=== PATIENT | male | born 1980 | race Caucasian/White ===

== ENCOUNTER 2019-01-04 16:45 | Emergency (ER) | payer MEDICAID, SELFPAY ==
[2019-01-04 16:46] VITALS: BP 159/101; PULSE 105; RESP 24; TEMP 36.6; O2SAT 89; BMI 30.9
[2019-01-04 17:22] VITALS: O2SAT 94
[2019-01-04 17:26] VITALS: BP 155/107; PULSE 97; RESP 19; O2SAT 94
[2019-01-04 17:36] VITALS: PULSE 114; RESP 29
[2019-01-04] MEDS: Albuterol 2.5 MG/3 ML VIAL.NEB. INHALATION ×3 (17:36)
[2019-01-04] MEDS: Ipratropium/Albuterol Sulfate 3 ML AMPUL.NEB INHALATION (17:36)
--- NOTE | 2019-01-04 17:44 | EKG12_ITS ---
Test Reason : SOB Blood Pressure : / mmHG Vent. Rate : 105 BPM Atrial Rate : 105 BPM P-R Int : 160 ms QRS Dur : 074 ms QT Int : 370 ms P-R-T Axes : 077 085 082 degrees QTc Int : 489 ms Sinus tachycardia with occasional Premature ventricular complexes Otherwise normal ECG Confirmed by YANG JIANG, NAKUL ([id number]), newspaper managing editor CHAYO PIZANO ([id number] on 01/07/2019 9:55:18 AM Referred By: VIJAYA Confirmed By:NAKUL SORIA MD
[2019-01-04] MEDS: predniSONE 20 MG Tablet 60 MG PO (18:18)
[2019-01-04 18:19] VITALS: PULSE 111; RESP 19; O2SAT 95
--- NOTE | 2019-01-04 19:10 | ED.DCSUM_ITS ---
- ER Visit Summary Date of Service: 01/04/19 Chief Complaint: Shortness of breath History of Present Illness: The patient is a 38 M with no primary care physician. He is seen Dr. Lam in the distant past. He has a history of severe asthma. Reports that his shortness of breath began 3 days ago. Severe at worst moderate currently. Is worsened by exertion. Some change by laying flat. Reports that he is using his albuterol with transient relief. Patient reports he is a chronic cough in the morning only. Is productive of clear sputum. He denies any fevers, chills, chest pain. He reports that his last steroids were quite some time ago. Physical Examination: Vitals: Stable. Afebrile. General: Well-nourished and well-developed. Head: Normocephalic atraumatic. Neck: Supple, no lymphadenopathy. No JVD. Nontender. Cardiovascular: Regular rate and rhythm. No murmurs. Respiratory: Moderate respiratory distress. Mild wheezing bilaterally with greatly decreased air movement. Abdominal: Soft, nontender, nondistended, normal bowel sounds. No guarding, rebound, or peritoneal signs. Back: Nontender. Extremities: Nontender, no edema. Skin: Normal color, no rash. Neurologic: Alert and oriented ?3. Cranial nerves II through XII are intact. Normal strength and sensation. Psych: Normal affect. Emergency Department Course and Treatment: Patient was treated with albuterol and Atrovent aerosols. He is also given albuterol aerosols. He was given prednisone p.o. Repeat exam shows his pulse ox to have increased from 89 to 96% on room air. He is resting comfortably and would like to go home. Treatment Plan: Patient will be discharged prednisone. Instructed to follow-up with his primary care physician 1 to 2 days if not improving. Follow-up with Dr. Lam as soon as possible. Return to the emergency department for any worsening symptoms. Disposition: To home in improved and stable condition. Impression: 1. Asthma exacerbation. This note was generated with [employer] dictation software. It may contain incorrect words, spelling, and punctuation that were not noted in review of the chart prior to signing ED Disposition - Plan for ED Patient: Disposition: Home or Assisted Living Instructions: ASTHMA, Acute (Adult) Prescriptions: Prednisone 10 mg PO DAILY #63 tab Prescription Printed Referrals: Megha Pearson PA [Primary Care Provider] - 1-2 Days if not improving Massimo Lam MD [STAFF PHYSICIAN] - As soon as possible
[2019-01-04 19:14] VITALS: BP 121/95; PULSE 96; RESP 14; O2SAT 92
== END 2019-01-04 19:15 | disposition home or self-care (01) ==
PROVIDERS: Emergency Provider Emergency Medicine; Family Provider Physician Assistant; PCP Physician Assistant
DX: J45.901 Unspecified asthma with (acute) exacerbation (principal); Z79.51 Long term (current) use of inhaled steroids
CPT/HCPCS: 93005; 94640; 99284

== ENCOUNTER 2019-11-19 19:19 | Emergency (ER) | payer SELFPAY ==
[2019-11-19 19:19] VITALS: BP 166/113; PULSE 107; RESP 18; TEMP 37.1; O2SAT 93
[2019-11-19 19:20] VITALS: BP 166/113; PULSE 101; RESP 18; TEMP 37.1; O2SAT 94; BMI 32.5
--- NOTE | 2019-11-19 19:50 | EKG12_ITS ---
Test Reason : CONFUSION Blood Pressure : / mmHG Vent. Rate : 097 BPM Atrial Rate : 097 BPM P-R Int : 172 ms QRS Dur : 086 ms QT Int : 386 ms P-R-T Axes : 057 074 064 degrees QTc Int : 490 ms Normal sinus rhythm with sinus arrhythmia Prolonged QT Abnormal ECG Confirmed by YANG JIANG, NAKUL ([id number]), supervising film or videotape editor CHAYO PIZANO ([id number]) on 11/22/2019 1:09:04 PM Referred By: BB Confirmed By:NAKUL SORIA MD
--- NOTE | 2019-11-19 19:50 | CT_ITS ---
STUDY: CT BRAIN WITHOUT CONTRAST REASON FOR EXAM: Male, 39 years old. Infusion RADIATION DOSAGE (If Supplied By Facility): CTDIvol = ( 44.99 ) mGy, DLP = ( 779.24 ) mGycm TECHNIQUE: Transaxial CT imaging of the brain was performed without administration of intravenous contrast material. Individualized dose optimization techniques were used for this CT. COMPARISON: None. FINDINGS: There is no acute bleed or infarct. There are normal white matter tracts. The ventricles are normal in configuration. There is no hydrocephalus. The visualized paranasal sinuses are clear. The mastoid air cells are well aerated. There is no skull fracture. CT/Brain/Head without Contrast IMPRESSION: No acute intracranial abnormality. Electronically Signed: Manpreet Lora, at 20:21 EDT Tel , Service support ,
--- NOTE | 2019-11-19 19:51 | ED.VIS.GEN ---
History of Present Illness Chief Complaint: Confusion Informant: Patient, Friend Onset: Days - 4 Timing: Intermittent, Lasts - hrs Quality: See below Current Severity: Mild Maximum Severity: Severe Narrative: Patient and a friend present saying that he has had episodes throughout the last 4 days where he is acting very drunk, but he is saying he is not drinking much alcohol, at least not as much to explain how he is acting. The patient admits that he is drinking beer daily because he loves beer. He walks a lot. He does not drive. He walks all over [facility], and today it was at the [employer] that is close to there. He states he had 1 pint of beer at lunchtime between and 2, at the time of the patient's evaluation here in the ER it is approximately 1945. States he is feeling much better now, but earlier it was like he was drunk, and he tends to pass out meaning that he basically takes a nap. When he wakes up, there are times when he does not remember the events just before he took a nap, consistent with times in his life when he has been drunk. He has not been eating well, he states he usually eats 1 meal per day, and he admits that besides drinking beer he has not been eating meals or drinking fluids well. Also, it is summer and it has been extremely hot recently, and he walks outside a lot. He states his typical alcohol intake is 4 or 5 12-ounce beers per day. He does not feel the shakes or withdrawals in the mornings when he does not drink. He denies any bright red blood per rectum, vomiting/hematemesis, tinnitus, earache, recent illness. No recent head injury. - Past Medical History (1) Asthma Status: Chronic Past Medical History - Allergies and Home Meds Allergies/Adverse Reactions: Allergies No Known Allergies Allergy (Verified 01/04/19 17:26) Primary Care Physician: Megha Pearson PA [PHYSICIAN TRAILER RENTAL CLERK] - 1 Week if not improving Surgical History: no surgical history Lives: With Family Smoking Status: Never smoker - Family History Maternal Family History: Reports: Asthma Paternal Family History: Reports: Asthma Sibling Family History: Reports: - - He is an only child. Review of Systems General: Denies: Chills, Fever, Sweats Eyes: Denies: Visual changes - bilaterally, Diplopia ENT: Denies: Rhinorrhea, Sore throat Cardiovascular: Denies: Chest pain, Palpitations Respiratory: Denies: Dyspnea, Cough, Dyspnea on exertion Gastrointestinal: Denies: Abdominal pain, Nausea, Vomiting, Diarrhea, Melena, Hematochezia Genitourinary: Denies: Dysuria, Hematuria, Frequency Musculoskeletal: Denies: Back pain, Extremity Pain Skin: Denies: Rash, Wounds Neurological: Reports: - - Walking like he is ataxic, stumbling. Slurring speech. Mumbling at times. . Denies: Headache, Weakness, Numbness Physical Exam Vital Signs/Narrative: Vital Signs Temp Pulse Resp BP Pulse Ox 11/19/19 19:20 98.8 F 101 H 18 166/113 H 94 11/19/19 19:19 98.8 F 107 H 18 166/113 H 93 NIH Stroke Scale/Score (NIHSS) from [employer] on 11/19/2019 All calculations should be rechecked by clinician prior to use RESULT SUMMARY: 0 points NIH Stroke Scale INPUTS: 1A: Level of consciousness ?> 0 = Alert; keenly responsive 1B: Ask month and age ?> 0 = Both questions right 1C: 'Blink eyes' & 'squeeze hands' ?> 0 = Performs both tasks 2: Horizontal extraocular movements ?> 0 = Normal 3: Visual newsome ?> 0 = No visual loss 4: Facial palsy ?> 0 = Normal symmetry 5A: Left arm motor drift ?> 0 = No drift for 10 seconds 5B: Right arm motor drift ?> 0 = No drift for 10 seconds 6A: Left leg motor drift ?> 0 = No drift for 5 seconds 6B: Right leg motor drift ?> 0 = No drift for 5 seconds 7: Limb Ataxia ?> 0 = No ataxia 8: Sensation ?> 0 = Normal; no sensory loss 9: Language/aphasia ?> 0 = Normal; no aphasia 10: Dysarthria ?> 0 = Normal 11: Extinction/inattention ?> 0 = No abnormality General: Well nourished, Well developed, No Acute Distress Head: Normocephalic, Atraumatic Eyes: Perrl, EOMI, - - Mild horizontal nystagmus. No vertical or rotatory nystagmus. ENT: Moist mucous membranes, No rhinorrhea, - - Posterior oropharynx clear. Neck: Supple, Nontender Cardiovascular: Regular rate, Regular rhythm, No murmurs Respiratory: No distress, CTA bilaterally, Chest nontender Abdomen: Soft, Nontender, Nondistended, Normal bowel sounds Back: Nontender, Normal Inspection Extremities: Nontender, No edema Skin: Normal color, No rash, No Trauma, - - Stretch ramirez present on abdomen and bilateral upper arms Neurological: Alert, Oriented x3, Cranial nerves II-XII grossly intact, Normal Strength, Normal Sensation, - - Normal [id number] and [id number] bilaterally. Psychological: Normal affect, Normal Mood Diagnostic/Tx/Re-eval Impressions Brain CT 11/19/19 19:50 IMPRESSION: No acute intracranial abnormality. Electronically Signed: Manpreet Guido, at 20:21 EDT Tel , Service support , 11/19/19 19:50 Brain/Head without Contrast [CT] Stat Laboratory Tests 11/19/19 11/19/19 11/19/19 Range/Units 20:27 19:54 19:54 WBC (4.4-11.0) K/mm3 RBC (4.6-6.2) M/mm3 Hgb (13.0-16.5) g/dL Hct (40-54) % MCV (80-94) fL MCH (27.0-32.0) pg MCHC (32-36) g/dL RDW Std Deviation (35.1-43.9) fl RDW Coeff of Christiano (11.6-14.6) % Plt Count (150-450) K/mm3 MPV (6.2-12.0) fl Immature Gran % (Auto) (0.0-0.9) % Neut % (Auto) (47-70) % Lymph % (Auto) (19-41) % [place] % (Auto) (0-10) % Eos % (Auto) (0-5) % Baso % (Auto) (0-1) % Absolute Neuts (auto) (2.0-7.7) X10^3/uL Absolute Lymphs (auto) (0.83-4.51) X10^3/uL Nucleated RBC % (0-5) % PT 13.9 (11.7-14.9) SECONDS INR 1.1 Sodium 141 (136-145) mmol/L Potassium 3.9 (3.5-5.1) mmol/L Chloride 107 (98-107) mmol/L Carbon Dioxide 27.0 (21.0-32.0) mmol/L Anion Gap 7 (5-15) BUN 4 L (7-18) mg/dL Creatinine 0.72 (0.70-1.30) mg/dL Estim Creat Clear Calc 115.34 ml/min Est GFR (MDRD) Af Amer 155 (>60) mL/min Est GFR (MDRD) Non-Af 128 (>60) mL/min BUN/Creatinine Ratio 5.5 L (10-20) RATIO Glucose 108 H (74-106) mg/dL Calcium 8.2 L (8.5-10.1) mg/dL Total Bilirubin 0.90 (0.20-1.00) mg/dL AST 94 H (15-37) U/L ALT 66 H (16-61) U/L Alkaline Phosphatase 162 H (45-117) U/L Troponin I < 0.015 (<0.045) ng/mL Total Protein 8.1 (6.4-8.2) g/dL Albumin 3.4 (3.2-5.0) g/dL Globulin 4.7 H (2.2-4.2) g/dL Albumin/Globulin Ratio 0.7 L (0.9-2.4) RATIO Ethyl Alcohol 367.0 H* mg/dL 11/19/19 Range/Units 19:54 WBC 6.8 (4.4-11.0) K/mm3 RBC 4.28 L (4.6-6.2) M/mm3 Hgb 15.1 (13.0-16.5) g/dL Hct 44.3 (40-54) % MCV 103.5 H (80-94) fL MCH 35.3 H (27.0-32.0) pg MCHC 34.1 (32-36) g/dL RDW Std Deviation 48.3 H (35.1-43.9) fl RDW Coeff of Christiano 12.9 (11.6-14.6) % Plt Count 227 (150-450) K/mm3 MPV 8.4 (6.2-12.0) fl Immature Gran % (Auto) 0.100 (0.0-0.9) % Neut % (Auto) 49.5 (47-70) % Lymph % (Auto) 26.3 (19-41) % [place] % (Auto) 10.4 H (0-10) % Eos % (Auto) 10.8 H (0-5) % Baso % (Auto) 2.9 H (0-1) % Absolute Neuts (auto) 3.4 (2.0-7.7) X10^3/uL Absolute Lymphs (auto) 1.80 (0.83-4.51) X10^3/uL Nucleated RBC % 0 (0-5) % PT (11.7-14.9) SECONDS INR Sodium (136-145) mmol/L Potassium (3.5-5.1) mmol/L Chloride (98-107) mmol/L Carbon Dioxide (21.0-32.0) mmol/L Anion Gap (5-15) BUN (7-18) mg/dL Creatinine (0.70-1.30) mg/dL Estim Creat Clear Calc ml/min Est GFR (MDRD) Af Amer (>60) mL/min Est GFR (MDRD) Non-Af (>60) mL/min BUN/Creatinine Ratio (10-20) RATIO Glucose (74-106) mg/dL Calcium (8.5-10.1) mg/dL Total Bilirubin (0.20-1.00) mg/dL AST (15-37) U/L ALT (16-61) U/L Alkaline Phosphatase (45-117) U/L Troponin I (<0.045) ng/mL Total Protein (6.4-8.2) g/dL Albumin (3.2-5.0) g/dL Globulin (2.2-4.2) g/dL Albumin/Globulin Ratio (0.9-2.4) RATIO Ethyl Alcohol mg/dL - Rhythm Strip Rhythm Strip: Sinus Rhythm Rate: 97 Ectopy: None - EKG Initial EKG Interpretation: Sinus Rhythm, No Acute Injury Pattern Prior: Unchanged - Medical Decision Making As above, work-up is unremarkable with the exception of very slight elevations in his liver enzymes which I suspect is related to alcohol use. There is no hyperbilirubinemia or coagulopathy to suggest cirrhosis. Also, his alcohol returned at 367. His abdominal exam is very benign and he is not jaundiced. His CT is negative. I do not suspect that this patient has had a stroke, also less suspicious for a TIA. My suspicion is that the patient is drinking more alcohol than he lets on, and even if this is not the case, he is not eating any food, or at least not very much, and he is not discussing how quickly he is drinking each beverage, which certainly could result in higher blood alcohol concentrations, as the absorption is likely very quick in him when he is not eating any food. Additionally, he could be dehydrated since he is not drinking much water, walking in extreme heat, and this could further increase his blood alcohol concentrations. At this time, I do not see a reason to admit him emergently. I advise eating better, drinking nonalcoholic fluids, and curbing his alcohol intake and seeing if that alters the symptoms/findings. Advised to follow-up with his doctor. Although his alcohol level is fairly high, and he was watched for 2.5-3 hours, he is ambulatory without ataxia, and he states he is walking home which I am okay with. ED Disposition - Plan for ED Patient: Disposition: Home or Assisted Living Diagnosis: Alcohol intoxication Instructions: ED INTOXICATION Alcohol Referrals: Megha Pearson PA [PHYSICIAN TRAILER RENTAL CLERK] - 1 Week if not improving Additional Instructions: Before you are able to follow-up with your doctor, curb your alcohol intake, drink more nonalcoholic fluids, and try to eat better.
[2019-11-19 20:04] LABS: Absolute Neutrophil Count 3.4 X10^3/uL (2.0-7.7); Basophil% 2.9 % (0-1); Eosinophil# 0.74 X10^3/uL; Eosinophils% 10.8 % (0-5); Hematocrit 44.3 % (40-54); Hemoglobin 15.1 g/dL (13.0-16.5); Lymphocyte % 26.3 % (19-41); Mean Corp Hgb Conc 34.1 g/dL (32-36); Mean Corpuscular Hgb 35.3 pg (27.0-32.0); Mean Corpuscular Volume 103.5 fL (80-94); Mean Platelet Vol. 8.4 fl (6.2-12.0); Monocyte# 0.71 X10^3/uL; Monocyte% 10.4 % (0-10); NRBC Flagged by Analyzer 0 % (0-5); Neutrophil # 3.38 X10^3/uL (2.7-7.7); Neutrophil % 49.5 % (47-70); Platelet Count 227 K/mm3 (150-450); RBC Distribution Width CV 12.9 % (11.6-14.6); RBC Distribution Width SD 48.3 fl (35.1-43.9); Red Blood Count 4.28 M/mm3 (4.6-6.2); White Blood Count 6.8 K/mm3 (4.4-11.0)
[2019-11-19 20:12] LABS: International Normalized Ratio 1.1; Prothrombin Time (Protime)PT. 13.9 SECONDS (11.7-14.9)
[2019-11-19 20:23] LABS: ALB/GLOB Ratio 0.7 RATIO (0.9-2.4); AST(SGOT) 94 U/L (15-37); Alanine Aminotransfer ALT/SGPT 66 U/L (16-61); Albumin, Serum 3.4 g/dL (3.2-5.0); Alkaline Phosphatase 162 U/L (45-117); Anion Gap 7 (5-15); BUN 4 mg/dL (7-18); BUN/Creat Ratio 5.5 RATIO (10-20); Calcium,Total 8.2 mg/dL (8.5-10.1); Chloride 107 mmol/L (98-107); Creatinine, Serum 0.72 mg/dL (0.70-1.30); EST Glomerular Filtration Rate 128 mL/min (>60); Est Glom Filt Rate - Afr Amer 155 mL/min (>60); Estimated Creatinine Clearance 115.34 ml/min; Globulin 4.7 g/dL (2.2-4.2); Glucose 108 mg/dL (74-106); Potassium 3.9 mmol/L (3.5-5.1); Protein, Total 8.1 g/dL (6.4-8.2); Sodium Level 141 mmol/L (136-145)
== END 2019-11-19 21:47 | disposition home or self-care (01) ==
PROVIDERS: Emergency Provider Emergency Medicine
DX: F10.129 Alcohol abuse with intoxication, unspecified (principal); J45.909 Unspecified asthma, uncomplicated
CPT/HCPCS: 70450; 80053; 80320; 84484; 85025; 85610; 93005; 99283; A4216; G0480

== ENCOUNTER 2020-02-06 14:56 | Inpatient (IN) | payer SELFPAY ==
[2020-02-06] VITALS (20 sets, daily range): BP systolic 154–247; BP diastolic 85–134; PULSE 98–141; RESP 14–32; TEMP 36.5–37; O2SAT 94–100; BMI 30.9; BMI 32.2
--- NOTE | 2020-02-06 15:17 | RAD_ITS ---
STUDY: X-RAY CHEST REASON FOR EXAM: Male, 39 years old. Shortness of breath, cough. TECHNIQUE: Frontal view of the chest COMPARISON: 14 April 2017 FINDINGS: There is minimal blunting of bilateral costophrenic sulci, possibly minimal effusions and/or scarring. Lungs are clear. There is no pneumothorax, pulmonary edema or cardiomegaly. RAD/Chest 1 View (Portable) IMPRESSION: Possible minimal pleural effusions versus costophrenic sulcus scarring. Otherwise unremarkable. Electronically Signed: Cee Reynoso, at 16:57 EDT Tel , Service support ,
--- NOTE | 2020-02-06 15:19 | ED.VIS.DYS ---
History of Present Illness Chief Complaint: Asthma Informant: Patient Onset: - 2-3 Activity at onset: - - possibly related to cleaning chemicals at work Timing: Continuous Quality: Wheezing Current Severity: Severe Maximum Severity: Severe Worsened by: Coughing, Exertion Relieved by: Not Relieved By: Albuterol, Rest Associated Symptoms: Cough, Rhinorrhea. Negative for: Bloody Sputum, Chills, Clear sputum, Ear pain, Fever, Sore throat, Sweats Chest Pain: Tightness Narrative: 39-year-old male states he has had cold symptoms that have been relatively mild for the last 2 or 3 weeks, and his asthma has not been flared up with it until several days ago. 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 He denies any fevers or chills the last several weeks, myalgias, sore throat, swelling, GI symptoms. He has not developed any of that since the wheezing/asthma started in the last couple days either. He has not been tested for COVID nor is he had it, patient presents during the national coronavirus emergency declaration/pandemic. He denies any known contact with anyone infected with COVID-19. He denies traveling out of the immediate area recently. - Past Medical History (1) Asthma Status: Chronic Past Medical History - Allergies and Home Meds Allergies/Adverse Reactions: Allergies No Known Allergies Allergy (Verified 02/06/20 14:57) Primary Care Physician: Care Physician,No Primary [Primary Care Provider] - Surgical History: no surgical history Smoking Status: Never smoker - Family History Maternal Family History: Reports: Asthma Paternal Family History: Reports: Asthma Sibling Family History: Reports: - - He is an only child. Review of Systems General: Denies: Chills, Fever, Sweats Eyes: Denies: Visual changes - bilaterally, Diplopia ENT: Reports: Rhinorrhea - And mild congestion without purulent discharge. Denies: Sore throat Cardiovascular: Reports: Chest pain. Denies: Palpitations Respiratory: Reports: Dyspnea, Cough, Dyspnea on exertion. Denies: Sputum, Orthopnea Gastrointestinal: Denies: Abdominal pain, Nausea, Vomiting, Diarrhea, Melena, Hematochezia Genitourinary: Denies: Dysuria, Hematuria, Frequency Musculoskeletal: Denies: Myalgias, Neck pain, Back pain, Swelling, Extremity Pain Skin: Denies: Rash, Wounds Neurological: Denies: Headache, Weakness, Numbness Physical Exam Vital Signs/Narrative: Vital Signs Temp Pulse Resp BP Pulse Ox 02/06/20 15:03 124 H 96 02/06/20 14:57 97.7 F L 125 H 32 H 204/132 H 94 Inital Vital Signs reviewed: Yes General: Well nourished, Well developed, Acute Distress - Mild, respiratory Head: Normocephalic, Atraumatic Eyes: Perrl, EOMI ENT: Moist mucous membranes, No rhinorrhea. Negative for: Sinus tenderness Neck: Supple, Nontender, No lymphadenopathy, No JVD Cardiovascular: Regular rate, Regular rhythm, No murmurs, Tachycardia Respiratory: Chest nontender, Wheezing - Diffuse, patient sounds tight and symmetric. Trachea midline. Equal breath sounds heard bilaterally.. Negative for: Rales, Rhonchi Abdomen: Soft, Nontender, Nondistended, Normal bowel sounds Back: Nontender, Normal Inspection Extremities: Nontender, No edema. Negative for: Calf Tenderness Skin: Normal color, No rash, No Trauma Neurological: Alert, Oriented x3, Cranial nerves II-XII grossly intact, Normal Strength, Normal Sensation Psychological: Normal affect, Normal Mood Diagnostic/Tx/Re-eval Impressions Chest X-Ray 02/06/20 15:17 IMPRESSION: Possible minimal pleural effusions versus costophrenic sulcus scarring. Otherwise unremarkable. Electronically Signed: Cee Datgabriel, at 16:57 EDT Tel , Service support , 02/06/20 15:17 Chest 1 View (Portable) [RAD] Stat Laboratory Results 02/06/20 02/06/20 16:10 16:10 WBC 8.9 RBC 4.65 Hgb 16.1 Hct 47.8 MCV 102.8 H MCH 34.6 H MCHC 33.7 RDW Std Deviation 47.3 H RDW Coeff of Christiano 12.6 Plt Count 171 MPV 8.7 Immature Gran % (Auto) 0.200 Neut % (Auto) 71.6 H Lymph % (Auto) 11.0 L [place] % (Auto) 7.3 Eos % (Auto) 9.0 H Baso % (Auto) 0.9 Absolute Neuts (auto) 6.4 Absolute Lymphs (auto) 0.98 Nucleated RBC % 0 Sodium 139 Potassium 4.0 Chloride 105 Carbon Dioxide 28.0 Anion Gap 6 BUN 4 L Creatinine 0.73 Estim Creat Clear Calc 113.76 Est GFR (MDRD) Af Amer 154 Est GFR (MDRD) Non-Af 127 BUN/Creatinine Ratio 5.5 L Glucose 101 Calcium 9.1 Troponin I < 0.015 - Medical Decision Making Initially patient treated with subcutaneous terbutaline and a round of aerosols. He became more wheezy, suggesting that he was opened up a little, however his respiratory distress worsened, he became diaphoretic, speaking in one-word sentences instead of 4-5. Patient was very apprehensive about getting epinephrine but eventually consented. We started magnesium, Solu-Medrol in the IV in addition to given him a mikel dose of epinephrine, which eventually helped although he sat up for intubation. On multiple re-evaluations he continued to have improvement although he was still in respiratory distress and did want to wait for intubation which I agree with given his improvement. Patient would prefer to wait to get another epinephrine injection. With the injection, his blood pressure has come down from 220-190s and his heart rate came down from 150-130. Sinus tachycardia on the monitor. Discussed with hospitalist and intensive care. Critical care time (excluding procedures): 30-74 minutes - 40 min; including time spent discussing with patient, consultants, arranging admission, and performed direct patient care and reevaluation at bedside. ED Disposition - Plan for ED Patient: Disposition: Acute Care Hospital [facility] Diagnosis: Status asthmaticus Referrals: Care Physician,No Primary [Primary Care Provider] -
[2020-02-06] MEDS: Terbutaline 1 MG/ML Vial 0.25 MG SC (15:37)
[2020-02-06] MEDS: Ipratropium/Albuterol Sulfate 3 ML AMPUL.NEB INHALATION ×2 (15:39→19:00)
[2020-02-06] MEDS: Albuterol 2.5 MG/3 ML VIAL.NEB. INHALATION ×3 (15:39→21:43)
[2020-02-06 16:23] LABS: Absolute Lymphocyte Count 0.98 X10^3/uL (0.83-4.51); Absolute Neutrophil Count 6.4 X10^3/uL (2.0-7.7); Basophil# 0.08 X10^3/uL; Basophil% 0.9 % (0-1); Hematocrit 47.8 % (40-54); Hemoglobin 16.1 g/dL (13.0-16.5); Lymphocyte # 0.98 X10^3/ul (4.0); Mean Corp Hgb Conc 33.7 g/dL (32-36); Mean Corpuscular Hgb 34.6 pg (27.0-32.0); Mean Corpuscular Volume 102.8 fL (80-94); Mean Platelet Vol. 8.7 fl (6.2-12.0); Monocyte# 0.65 X10^3/uL; Monocyte% 7.3 % (0-10); NRBC Flagged by Analyzer 0 % (0-5); Neutrophil # 6.37 X10^3/uL (2.7-7.7); Neutrophil % 71.6 % (47-70); Platelet Count 171 K/mm3 (150-450); RBC Distribution Width CV 12.6 % (11.6-14.6); RBC Distribution Width SD 47.3 fl (35.1-43.9); Red Blood Count 4.65 M/mm3 (4.6-6.2); White Blood Count 8.9 K/mm3 (4.4-11.0)
[2020-02-06] MEDS: MethylPREDNISolone 125 MG/2 ML Vial IV (16:25)
[2020-02-06 16:40] LABS: Anion Gap 6 (5-15); BUN 4 mg/dL (7-18); BUN/Creat Ratio 5.5 RATIO (10-20); Calcium,Total 9.1 mg/dL (8.5-10.1); Chloride 105 mmol/L (98-107); Creatinine, Serum 0.73 mg/dL (0.70-1.30); EST Glomerular Filtration Rate 127 mL/min (>60); Est Glom Filt Rate - Afr Amer 154 mL/min (>60); Estimated Creatinine Clearance 113.76 ml/min; Glucose 101 mg/dL (74-106); Sodium Level 139 mmol/L (136-145)
--- NOTE | 2020-02-06 17:22 | PCM.HP.STD ---
Problem List (1) Status asthmaticus Status: Chronic (2) Acute asthma exacerbation Status: Acute (3) Obesity (BMI 30-39.9) Status: Chronic (4) Asthma Status: Chronic History of Present Illness Date of Admission: 02/06/20 Chief Complaint: Shortness of breath. The patient is a 39 year old M who presents emergency room due to shortness of breath. Patient states he has had cold symptoms for the past week and a half including productive cough with yellow sputum and increased shortness of breath. He denies fever, chills. Denies sore throat. Denies change in taste and smell. Patient denies exposure to COVID. He reports 2 days ago he was cleaning the floor at work with heavy chemicals and his breathing seemed to get worse after that time. Today he reports significantly worsened breathing. He has a history of hypertension. He states he is currently without medical insurance and has not been taking his water pill. He has a history of asthma. Denies frequent exacerbations however he has been admitted in the past. Past Medical History Past Medical History (Chronic Problems): Chronic Problems Status asthmaticus (Chronic) Obesity (BMI 30-39.9) (Chronic) Asthma (Chronic) Allergies No Known Allergies Allergy (Verified 02/06/20 14:57) Home Medications: Ambulatory Orders Medication Instructions Recorded Albuterol Aerosols [Ventolin 2.5 mg INHALATION Q4H PRN PRN #25 01/19/17 Aerosols] vial Fluticasone/Salmeterol [Advair 1 ea IH DAILY 01/04/19 100-50 Diskus] Surgical History: no surgical history Psychiatric History: No pertinent psych hx Lives: Alone Smoking Status: Never smoker Alcohol: None Drugs: Marijuana - Occasional - *Family History Maternal History Items: Asthma Paternal History Items: Asthma Sibling History Items: - - He is an only child. Review of Systems Constitutional: Denies: Chills, Fever, Weight Change HEENT: Denies: Head Aches, Sinus Congestion, Sinus Drainage Cardiovascular: Denies: Chest Pain, Edema, Palpitations, Syncope Respiratory: Reports: Cough, Shortness of Breath, Sputum production, Wheezing Gastrointestinal: Denies: Abdominal Pain, Nausea, Vomiting Genitourinary: Denies: Dysuria Musculoskeletal: Denies: Joint Pain, Joint Tenderness Skin: Denies: Rash, Wounds Neurological: Denies: Numbness, Tingling, Focal weakness Psychiatric: Denies: Anxiety, Depression, Homicidal Ideations, Suicidal Ideations Hematologic/ Lymphatic: Denies: Easy Bruising, Easy Bleeding VTE Information - Inpt Only VTE Present on Admission: No VTE Mechan Device Prophylaxis: None VTE Pharm Prophylaxis ordered?: No Reason prophylaxis not ordered:: Treatment Not Indicated - Physical Exam Vitals/I&O's: Vital Signs Temp Pulse Resp BP Pulse Ox 97.7 F L 132 H 18 199/126 H 98 02/06/20 14:57 02/06/20 17:01 02/06/20 17:01 02/06/20 17:01 02/06/20 17:01 Oxygen Flow Rate (L/min) 6 Oxygen Delivery Method Nasal Cannula Weight: 180 lb Body Mass Index (BMI) 30.9 General: Alert, Oriented x3, Cooperative HEENT: Atraumatic, PERRLA, EOMI, Normocephalic Neck: Supple, No JVD, Negative Carotid Bruits Lungs: Diminished, Wheezes Cardiovascular: Regular Rhythm, Normal S1, Normal S2, No murmurs, Tachycardic Abdomen: Bowel Sounds Present, Soft, Non Tender, Non-Distended Extremities: No clubbing, No cyanosis, No edema, Capillary Refill Less than 3 Seconds Skin: No rashes, No breakdown Musculoskeletal: No Tenderness to Palpation of Joints or Extremities Neurological: Cranial nerves II-XII grossly intact, Neuro grossly intact Psych/Mental Status: Normal Affect, Appropriate Laboratory Results 02/06/20 15:28: COVID-19 (DANA) Pending 02/06/20 16:10: WBC 8.9, RBC 4.65, Hgb 16.1, Hct 47.8, MCV 102.8 H, MCH 34.6 H, MCHC 33.7, RDW Std Deviation 47.3 H, RDW Coeff of Christiano 12.6, Plt Count 171, MPV 8.7, Immature Gran % (Auto) 0.200, Neut % (Auto) 71.6 H, Lymph % (Auto) 11.0 L, [place] % (Auto) 7.3, Eos % (Auto) 9.0 H, Baso % (Auto) 0.9, Absolute Neuts (auto) 6.4, Absolute Lymphs (auto) 0.98, Nucleated RBC % 0 02/06/20 16:10: Sodium 139, Potassium 4.0, Chloride 105, Carbon Dioxide 28.0, Anion Gap 6, BUN 4 L, Creatinine 0.73, Estim Creat Clear Calc 113.76, Est GFR (MDRD) Af Amer 154, Est GFR (MDRD) Non-Af 127, BUN/Creatinine Ratio 5.5 L, Glucose 101, Calcium 9.1, Troponin I < 0.015 Current Medications Magnesium Sulfate 2 gm/ Sodium (Chloride) 104 mls @ 52 mls/hr IV X1 ONE Stop: 02/06/20 17:55 Last Admin: 02/06/20 16:16 Dose: 52 mls/hr Documented by: Assessment/Plan All Active Problems Acute asthma exacerbation (Acute) 1. Acute hypoxic respiratory failure secondary to bronchitis with exacerbation of asthma-patient received epinephrine, Solu-Medrol and aerosols in ER. IV Solu-Medrol. Levaquin empirically. Albuterol DuoNeb aerosols. Continue supplement oxygen to maintain O2 sat above 90%. COVID test pending. Pulmonary consult. 2. Hypertensive urgency-patient has a history of hypertension and has not been taking his medication. Increased secondary to #1 as well. Initiate Norvasc. PRN hydralazine for systolic blood pressure greater than 160. 3. Occasional marijuana use-Denies recent use DVT prophylaxis- low risk, not indicated This patient was seen by JAVIER Steiner under the supervision of Dr. Suarez.
[2020-02-06] MEDS: 0.9% Normal Saline 1,000 ML 175 ML IV (18:26)
[2020-02-06] MEDS: levoFLOXacin 500 MG Tablet PO (18:28)
[2020-02-06] MEDS: amLODIPine 10 MG Tablet PO (18:28)
[2020-02-06] MEDS: Metoprolol Tartrate 5 MG/5 ML Vial IV (21:14)
[2020-02-06] MEDS: Acetaminophen 325 MG Tablet 650 MG PO (21:30)
[2020-02-06] MEDS: guaiFENesin/Codeine 5 ML UDC 10 ML PO (21:31)
[2020-02-07] VITALS (14 sets, daily range): BP systolic 145–184; BP diastolic 72–105; PULSE 80–122; RESP 13–22; TEMP 36.8; O2SAT 94–99
[2020-02-07] MEDS: 0.9% Normal Saline 1,000 ML 175 ML IV ×2 (00:01→06:10)
[2020-02-07] MEDS: Ipratropium/Albuterol Sulfate 3 ML AMPUL.NEB INHALATION ×3 (00:19→10:02)
[2020-02-07 05:01] LABS: Absolute Lymphocyte Count 0.34 X10^3/uL (0.83-4.51); Absolute Neutrophil Count 6.2 X10^3/uL (2.0-7.7); Basophil# 0.01 X10^3/uL; Basophil% 0.1 % (0-1); Hematocrit 40.7 % (40-54); Hemoglobin 13.7 g/dL (13.0-16.5); Lymphocyte # 0.34 X10^3/ul (4.0); Lymphocyte % 5.1 % (19-41); Mean Corp Hgb Conc 33.7 g/dL (32-36); Mean Corpuscular Hgb 34.3 pg (27.0-32.0); Mean Corpuscular Volume 101.8 fL (80-94); Monocyte% 1.5 % (0-10); NRBC Flagged by Analyzer 0 % (0-5); Neutrophil # 6.24 X10^3/uL (2.7-7.7); Neutrophil % 92.7 % (47-70); POSITIVE DIFFERENTIAL YES; POSITIVE MORPHOLOGY YES; Platelet Count 148 K/mm3 (150-450); RBC Distribution Width CV 12.2 % (11.6-14.6); RBC Distribution Width SD 45.5 fl (35.1-43.9); White Blood Count 6.7 K/mm3 (4.4-11.0)
[2020-02-07 05:03] LABS: Differential Indicated SCAN CRITERIA MET
[2020-02-07 05:17] LABS: Anion Gap 6 (5-15); BUN 6 mg/dL (7-18); Calcium,Total 8.3 mg/dL (8.5-10.1); Chloride 104 mmol/L (98-107); Creatinine, Serum 0.67 mg/dL (0.70-1.30); EST Glomerular Filtration Rate 140 mL/min (>60); Est Glom Filt Rate - Afr Amer 170 mL/min (>60); Estimated Creatinine Clearance 123.95 ml/min; Glucose 144 mg/dL (74-106); Sodium Level 136 mmol/L (136-145)
[2020-02-07 05:21] LABS: Differential Comment SCANNED
[2020-02-07] MEDS: levoFLOXacin 500 MG Tablet PO (06:10)
--- NOTE | 2020-02-07 06:53 | PCM.CON.CC ---
Problem List (1) Insurance coverage problems Status: Acute (2) Status asthmaticus Status: Chronic Qualifiers: Asthma severity: severe Asthma persistence: persistent Qualified Code(s): J45.52 - Severe persistent asthma with status asthmaticus (3) Acute asthma exacerbation Status: Acute Qualifiers: Asthma severity: severe Asthma persistence: persistent Qualified Code(s): J45.51 - Severe persistent asthma with (acute) exacerbation (4) Obesity (BMI 30-39.9) Status: Chronic Qualifiers: Obesity type: due to excess calories Obesity classification: adult class 1 (BMI 30 - 34.9) Serious obesity comorbidity presence: without serious comorbidity Body mass index: BMI 32.0-32.9 Qualified Code(s): E66.09 - Other obesity due to excess calories; Z68.32 - Body mass index [BMI] 32.0-32.9, adult Reason for Consult Date of Consultation: 02/07/20 Reason for Consultation: Asthma exacerbation History of Present Illness: The patient is a 39 year old M, with past medical history listed below, who presented was [facility] on 02/06/2020 secondary to progressive shortness of breath. Patient had noted URI type symptoms for the last 2 to 3 weeks. Patient stated over the last 2 to 3 days he started to have worsening shortness of breath with decreased exercise tolerance. Patient does report exposure to heavy cleaning solutions, but cannot improve his breathing using albuterol. Patient is not reporting any fevers or chills currently. Patient reportedly has not been tested for COVID-19, but does not have any known contact with any COVID-19. Patient has not traveled recently. Patient does report a long history of asthma in the past, but is lost insurance and has been using a Butler of previous inhalers. On presentation to the ER, patient was noted to be tachycardic and hypertensive at 125 and 204/134 respectively. Patient was extremely tight on physical exam and chest x-ray was relatively unremarkable. Patient's hemoglobin was elevated at 16.1, but otherwise labs were relatively unremarkable. Patient was given aerosols, epinephrine, magnesium and Solu-Medrol. Given variable response to albuterol, patient was admitted to the intensive care unit for possible intubation. Patient reports he has been intubated in the past for his asthma. Patient states he was a teenager at that time. Patient states that he has noted worsening symptomatology, but feels this is appropriate given his lack of insurance and following with physicians. Patient states he has some Advair and albuterol at home that he uses to get by until his insurance issues can be addressed. Patient states this exacerbation was slightly different and that he did not have much hypoxia. Patient does report he is supposed to be on hydrochlorothiazide, but this has not been continued secondary to insurance issues. Review of systems otherwise negative from a constitutional, HEENT, respiratory, cardiovascular, GI, genitourinary, musculoskeletal, skin, neurologic, psychiatric and hematologic system unless stated above. Past Medical History Past Medical History (Chronic Problems): Chronic Problems Status asthmaticus (Chronic) Obesity (BMI 30-39.9) (Chronic) Asthma (Chronic) Allergies No Known Allergies Allergy (Verified 02/06/20 14:57) Home Medications: Ambulatory Orders Medication Instructions Recorded Albuterol Aerosols [Ventolin 2.5 mg INHALATION Q4H PRN PRN #25 01/19/17 Aerosols] vial Fluticasone/Salmeterol [Advair 1 ea IH DAILY 01/04/19 100-50 Diskus] Surgical History: no surgical history Psychiatric History: No pertinent psych hx Lives: Alone Smoking Status: Never smoker Alcohol: None Drugs: Marijuana - Occasional - *Family History Maternal History Items: Asthma Paternal History Items: Asthma Sibling History Items: - - He is an only child. Review of Systems Comment: See HPI Patient Problems: Active and Suspected Problems Insurance coverage problems (Acute) Objective: All imaging was personally reviewed. Chest x-ray was relatively unremarkable. - Physical Exam Vitals/I&O's: Vital Signs Temp Pulse Resp BP Pulse Ox 36.8 C 84 17 154/96 H 97 02/07/20 04:00 02/07/20 06:00 02/07/20 06:00 02/07/20 06:00 02/07/20 06:00 Oxygen Flow Rate (L/min) 2 Oxygen Delivery Method Nasal Cannula Weight: 85.8 kg Body Mass Index (BMI) 32.2 Intake and Output for Last 24 Hours 02/05/20 02/06/20 02/07/20 23:59 23:59 23:59 Intake Total 904 / 1034 2107.08 / 2107.08 Output Total 700 / 700 300 / 300 Balance 204 / 334 1807.08 / 1807.08 General: Alert, Oriented x3, Cooperative, - - Mild conversational dyspnea. Obese. HEENT: Atraumatic, PERRLA, EOMI, Normocephalic, - - No scleral icterus or injection noted. No sinus congestion noted. Oral: Moist Mucosa, No Gingival or Mucosal Lesions/ Ulcerations Neck: Supple, No JVD, No Nodes, Trachea Midline Lungs: No rhonchi, No rales, Diminished, Wheezes - Globally Cardiovascular: Normal S1, Normal S2, No murmurs, No rub noted, No Gallop, Tachycardic Abdomen: Bowel Sounds Present, Soft, Non Tender, Non-Distended, Obese Extremities: No clubbing, No cyanosis, No edema, Capillary Refill Less than 3 Seconds Skin: No rashes, No breakdown Musculoskeletal: No Tenderness to Palpation of Joints or Extremities Lymphatic: No Cervical, Supraclavicular, or Inguinal Adenopathy Neurological: Cranial nerves II-XII grossly intact, Neuro grossly intact, Motor Exam 5/5 strength throughout Psych/Mental Status: Alert and oriented to time, place, person, mood and affect Laboratory Results 02/06/20 15:28: COVID-19 (DANA) Not Detected 02/06/20 16:10: WBC 8.9, RBC 4.65, Hgb 16.1, Hct 47.8, MCV 102.8 H, MCH 34.6 H, MCHC 33.7, RDW Std Deviation 47.3 H, RDW Coeff of Christiano 12.6, Plt Count 171, MPV 8.7, Immature Gran % (Auto) 0.200, Neut % (Auto) 71.6 H, Lymph % (Auto) 11.0 L, [place] % (Auto) 7.3, Eos % (Auto) 9.0 H, Baso % (Auto) 0.9, Absolute Neuts (auto) 6.4, Absolute Lymphs (auto) 0.98, Nucleated RBC % 0 02/06/20 16:10: Sodium 139, Potassium 4.0, Chloride 105, Carbon Dioxide 28.0, Anion Gap 6, BUN 4 L, Creatinine 0.73, Estim Creat Clear Calc 113.76, Est GFR (MDRD) Af Amer 154, Est GFR (MDRD) Non-Af 127, BUN/Creatinine Ratio 5.5 L, Glucose 101, Calcium 9.1, Troponin I < 0.015 02/07/20 04:55: WBC 6.7, RBC 4.00 L, Hgb 13.7, Hct 40.7, MCV 101.8 H, MCH 34.3 H, MCHC 33.7, RDW Std Deviation 45.5 H, RDW Coeff of Christiano 12.2, Plt Count 148 L, MPV 9.0, Immature Gran % (Auto) 0.600, Neut % (Auto) 92.7 H, Lymph % (Auto) 5.1 L, [place] % (Auto) 1.5, Eos % (Auto) 0.0, Baso % (Auto) 0.1, Absolute Neuts (auto) 6.2, Absolute Lymphs (auto) 0.34 L, Nucleated RBC % 0, Differential Comment SCANNED 02/07/20 04:55: Sodium 136, Potassium 4.0, Chloride 104, Carbon Dioxide 26.0, Anion Gap 6, BUN 6 L, Creatinine 0.67 L, Estim Creat Clear Calc 123.95, Est GFR (MDRD) Af Amer 170, Est GFR (MDRD) Non-Af 140, BUN/Creatinine Ratio 9.0 L, Glucose 144 H, Calcium 8.3 L Current Medications Acetaminophen (Tylenol) 650 mg PO Q6H PRN PRN PRN Reason: Pain Score 1-10/Temp > 100.7 F Last Admin: 02/06/20 21:30 Dose: 650 mg Documented by: Albuterol Sulfate (Ventolin Aerosols) 2.5 mg INHALATION Q2H PRN PRN Reason: SOB/WHEEZING Last Admin: 02/06/20 21:43 Dose: 2.5 mg Documented by: Albuterol/Ipratropium (Duoneb) 3 ml INHALATION Q4H.RT [facility] Last Admin: 02/07/20 03:20 Dose: Not Given Documented by: Amlodipine Besylate (Norvasc) 10 mg PO DAILY [facility] Guaifenesin/Codeine Phosphate (Robitussin Ac) 10 ml PO Q6H PRN PRN PRN Reason: COUGH Last Admin: 02/06/20 21:31 Dose: 10 ml Documented by: Sodium Chloride () 1,000 mls @ 175 mls/hr IV .[id number] [facility] Last Admin: 02/07/20 06:10 Dose: 175 mls/hr Documented by: Sodium Chloride () 250 mls @ 15 mls/hr IV .[id number] PRN PRN Reason: Saline Flush Sodium Chloride () 250 mls @ 15 mls/hr IV .[id number] PRN PRN Reason: Additional IVPB Infusion Influenza Virus Vaccine Quadrival (Flucelvax /Fluzone ) 0.5 ml IM .ONCE ONE Stop: 02/07/20 10:01 Levofloxacin (Levaquin Tablet) 500 mg PO DAILY@0600 [facility] Last Admin: 02/07/20 06:10 Dose: 500 mg Documented by: Methylprednisolone (Solu-Medrol) 40 mg IV Q6 MODE Last Admin: 02/07/20 06:10 Dose: 40 mg Documented by: Metoprolol Tartrate (Lopressor (Beta Akbar)) 5 mg IV Q8H PRN PRN PRN Reason: BLOOD PRESSURE ELEVATION Last Admin: 02/06/20 21:14 Dose: 5 mg Documented by: Sodium Chloride () 10 - 40 ml IV UD PRN PRN Reason: SALINE FLUSH Clinical Impression(s) from Imaging Studies Chest X-Ray 02/06/20 15:17 IMPRESSION: Possible minimal pleural effusions versus costophrenic sulcus scarring. Otherwise unremarkable. Electronically Signed: Cee Reynoso, at 16:57 EDT Tel , Service support , Assessment/Plan Active and Suspected Problems Insurance coverage problems (Acute) RECOMMENDATIONS: 1. Obtain walking oximetry 2. Case management/social work for insurance issues 3. Possible discharge if able to tolerate ambulation on room air 4. Continue steroid burst, bronchodilators 5. Consider alternative to Lopressor as needed given acute asthma exacerbation 6. Likely okay to discontinue Levaquin from my perspective IMPRESSIONS: 1. Acute hypoxic respiratory failure secondary to status asthmaticus Patient with rapid recovery compared to presentation. Patient may have an element of asthma exacerbation versus hypertensive urgency with pulmonary edema. Patient will require a prednisone burst, but it is unclear if he truly has an infection given his lack of leukocytosis. Likely okay to discontinue Levaquin from my perspective. Patient would benefit from social work/case management assistance with arranging resources. Likely recommend discharge if able to ambulate on room air with a 12-day prednisone taper. Longer taper more indicated due to lack of reliable controller medications and history of intubation. Patient would benefit from establishing with a PCP to secure maintenance inhalers at a minimum. Would be happy to see as an outpatient if necessary, but it is unclear how this may help long-term if he is unable to continue to follow-up in the office. 2. Hypertensive urgency Patient continues to have higher blood pressures. This may be somewhat secondary to the steroids. Patient was on hydrochlorothiazide previously. This could be reinitiated. Patient currently on Norvasc. Would recommend discontinuation of beta-akbar PRN given his severe asthma, but he appears to be tolerating it well at this time. 3. Occasional marijuana/lack of insurance/poor follow-up/obesity Complicates care, management, recovery and prognosis. Patient does appear to be open to management, but insurance is causing significant difficulties in his ability to manage his asthma. Patient has been intubated before and appears to have a poor insight into his overall disease process. Inpatient E&M: 64302 Init Hosp L2
--- NOTE | 2020-02-07 07:01 | PCM.PN.HOSP ---
Vitals/I&O's: Vital Signs Temp Pulse Resp BP Pulse Ox 98.2 F 84 17 154/96 H 97 02/07/20 04:00 02/07/20 06:00 02/07/20 06:00 02/07/20 06:00 02/07/20 06:00 Oxygen Flow Rate (L/min) 2 Oxygen Delivery Method Nasal Cannula Weight: 189 lb 2.506 oz Body Mass Index (BMI) 32.2 Intake and Output for Last 24 Hours 02/05/20 02/06/20 02/07/20 23:59 23:59 23:59 Intake Total 904 / 1034 2107. / 2106.08 Output Total 700 / 700 300 / 300 Balance 204 / 334 1807. / 1806.08 Laboratory Results 02/06/20 15:28: COVID-19 (DANA) Not Detected 02/06/20 16:10: WBC 8.9, RBC 4.65, Hgb 16.1, Hct 47.8, MCV 102.8 H, MCH 34.6 H, MCHC 33.7, RDW Std Deviation 47.3 H, RDW Coeff of Christiano 12.6, Plt Count 171, MPV 8.7, Immature Gran % (Auto) 0.200, Neut % (Auto) 71.6 H, Lymph % (Auto) 11.0 L, [place] % (Auto) 7.3, Eos % (Auto) 9.0 H, Baso % (Auto) 0.9, Absolute Neuts (auto) 6.4, Absolute Lymphs (auto) 0.98, Nucleated RBC % 0 02/06/20 16:10: Sodium 139, Potassium 4.0, Chloride 105, Carbon Dioxide 28.0, Anion Gap 6, BUN 4 L, Creatinine 0.73, Estim Creat Clear Calc 113.76, Est GFR (MDRD) Af Amer 154, Est GFR (MDRD) Non-Af 127, BUN/Creatinine Ratio 5.5 L, Glucose 101, Calcium 9.1, Troponin I < 0.015 02/07/20 04:55: WBC 6.7, RBC 4.00 L, Hgb 13.7, Hct 40.7, MCV 101.8 H, MCH 34.3 H, MCHC 33.7, RDW Std Deviation 45.5 H, RDW Coeff of Christiano 12.2, Plt Count 148 L, MPV 9.0, Immature Gran % (Auto) 0.600, Neut % (Auto) 92.7 H, Lymph % (Auto) 5.1 L, [place] % (Auto) 1.5, Eos % (Auto) 0.0, Baso % (Auto) 0.1, Absolute Neuts (auto) 6.2, Absolute Lymphs (auto) 0.34 L, Nucleated RBC % 0, Differential Comment SCANNED 02/07/20 04:55: Sodium 136, Potassium 4.0, Chloride 104, Carbon Dioxide 26.0, Anion Gap 6, BUN 6 L, Creatinine 0.67 L, Estim Creat Clear Calc 123.95, Est GFR (MDRD) Af Amer 170, Est GFR (MDRD) Non-Af 140, BUN/Creatinine Ratio 9.0 L, Glucose 144 H, Calcium 8.3 L Current Medications Acetaminophen (Tylenol) 650 mg PO Q6H PRN PRN PRN Reason: Pain Score 1-10/Temp > 100.7 F Last Admin: 02/06/20 21:30 Dose: 650 mg Documented by: Albuterol Sulfate (Ventolin Aerosols) 2.5 mg INHALATION Q2H PRN PRN Reason: SOB/WHEEZING Last Admin: 02/06/20 21:43 Dose: 2.5 mg Documented by: Albuterol/Ipratropium (Duoneb) 3 ml INHALATION Q4H.RT MODE Last Admin: 02/07/20 03:20 Dose: Not Given Documented by: Amlodipine Besylate (Norvasc) 10 mg PO DAILY [facility] Guaifenesin/Codeine Phosphate (Robitussin Ac) 10 ml PO Q6H PRN PRN PRN Reason: COUGH Last Admin: 02/06/20 21:31 Dose: 10 ml Documented by: Sodium Chloride () 1,000 mls @ 175 mls/hr IV .[id number] [facility] Last Admin: 02/07/20 06:10 Dose: 175 mls/hr Documented by: Sodium Chloride () 250 mls @ 15 mls/hr IV .[id number] PRN PRN Reason: Saline Flush Sodium Chloride () 250 mls @ 15 mls/hr IV .[id number] PRN PRN Reason: Additional IVPB Infusion Influenza Virus Vaccine Quadrival (Flucelvax /Fluzone ) 0.5 ml IM .ONCE ONE Stop: 02/07/20 10:01 Levofloxacin (Levaquin Tablet) 500 mg PO DAILY@0600 [facility] Last Admin: 02/07/20 06:10 Dose: 500 mg Documented by: Methylprednisolone (Solu-Medrol) 40 mg IV Q6 MODE Last Admin: 02/07/20 06:10 Dose: 40 mg Documented by: Metoprolol Tartrate (Lopressor (Beta Akbar)) 5 mg IV Q8H PRN PRN PRN Reason: BLOOD PRESSURE ELEVATION Last Admin: 02/06/20 21:14 Dose: 5 mg Documented by: Sodium Chloride () 10 - 40 ml IV UD PRN PRN Reason: SALINE FLUSH STROKE Vital Signs/Narrative: Vital Signs Temp Pulse Resp BP Pulse Ox 02/07/20 06:00 84 17 154/96 H 97 02/07/20 05:00 108 H 22 H 97 02/07/20 04:00 98.2 F 105 H 17 166/103 H 99 Medical Necessity - Tobacco Use Smoking Status: Never smoker Assessment/Plan All Active Problems Acute asthma exacerbation (Acute)
[2020-02-07] MEDS: amLODIPine 10 MG Tablet PO (10:02)
--- NOTE | 2020-02-07 10:30 | CASEMGMT ---
Addendum entered by Gabrielle Kauffman 02/07/20 11:44: Per PFS, pt was also provided HCAP application. Original Note: Social Work Note Pt is listed as self-pay. SW called Medicaid number and [employer], both are closed today due to the holiday. SW in to speak with pt. SW introduced self and role at [facility]. Pt is alert and orientated x3. Pt states that he live with friends, is independent with ADLs. Pt states that he works at [employer] in the [place] [employer]. Pt states they offer insurance but he only has been working there for about three months and pt is not able to get insurance yet. Substance Abuse Hx: Pt states he will occasionally drink ETOH, denies it being a problem. Mental Health Hx: Pt states he has history of anxiety and depression. Pt states he used to take medications. Pt denied any history or current suicidal thoughts/plans/ideations. Pt states that his life is going well at this time. Pt states he has good support. SW spoke with pt regarding insurance. SW informed pt that both Medicaid number and [employer] are closed today due to the holiday. SW provided pt with Medicaid application and 800 number to call to apply for Medicaid over the phone. SW also provided pt with additional financial resources including [employer], [employer], [employer], and RX assistance programs. SW also completed RX assist program, tubed to retail pharmacy. SW updated pt that RX assistance has been done for pt and program is good for once a year. Pt states understanding, thanked this worker for RX assistance programs and financial resources. Pt denied additional needs or concerns at this time. NERY updated RN. Gabrielle Kauffman SENIOR ADULTS DIRECTOR, LOAN AND CREDIT MANAGER
--- NOTE | 2020-02-07 10:40 | CASEMGMT ---
JORGE GUTIERREZ Face to Face with patient for initial transition planning/care coordination assessment. RN CM introduced self and role at [facility]. Patient sitting at edge of bed, alert and oriented. Patient willing to participate in assessment and is able to answer all questions appropriately. Care providers, pharmacy, and demographics verified. Patient wishes to discharge home, denies need for home health at this time. Patient states he has no further needs or concerns at this time. CM to follow for discharge planning needs that may arise. PCP: None, list of PCPs provided to patient Specialists: none Preferred Pharmacy: [facility] Insurance: none, SW provided resources for Medicaid Prescription Benefit: none Living Will/HPOA: none LNOK: Father Living Arrangements: Patient lives with friends in a 3 story home. Patient states he is independent at home and able to ambulate stairs. Transportation: Roommates, father DME/HHC: Patient states he has nebulizer at home. Patient denies previous HHC. Disposition Plan: Patient to discharge home with family support and follow-up plans in place. Gabrielle HOLLOWAY, RN, CM
--- NOTE | 2020-02-07 10:55 | DCINST_ITS ---
- Discharge Diagnoses Current Active Problems: Current Active and Chronic Problems Status asthmaticus (Chronic) Insurance coverage problems (Acute) You will use the following diet at home:: Cardiac - 2 GM sodium diet Your food should be the consistency of: Regular Discharge Activity: May Not Drive - for 1-2 weeks Weight Bearing Status: Weight bearing as tolerated Call your doctor if you observe: Fever of 101 or Higher, Coldness, Increased Pain, Change in Color, Inability to urinate, Inability to have a bowel movement, Shortness of breath, Dizziness, Fainting spells, Swelling in the ankles, Chest pain, Prolonged hiccoughing, Increased palpitations (irregular heartbeat), Calf discomfort Allergies/Adverse Reactions: Allergies No Known Allergies Allergy (Verified 02/06/20 14:57) Medications to take at Discharge Albuterol Aerosols [Ventolin Aerosols] 2.5 mg INHALATION Q4H PRN PRN #25 vial 01/19/17 Fluticasone/Salmeterol [Advair 100-50 Diskus] 1 ea IH DAILY 01/04/19 Lisinopril/Hydrochlorothiazide [Lisinopril-Hctz 10-12.5 mg Tab] 1 ea PO DAILY #30 tab 02/07/20 Prednisone 10 mg PO UD #30 tab 02/07/20 The following prescriptions were given: Lisinopril/Hydrochlorothiazide [Lisinopril-Hctz 10-12.5 mg Tab] 1 ea PO DAILY #30 tab Transmission Status: Pending to [facility] #30 Prednisone 10 mg PO UD #30 tab Transmission Status: Pending to [facility] #30 Primary Care Physician: Care Physician,No Primary [Primary Care Provider] - Please follow up with your Primary Care Physician in: in 1-2 weeks Test Results: Test results from this visit will be discussed in further detail at your follow- up appointment, if applicable. Please Follow Up With: Massimo Lam MD When: in 2 weeks
--- NOTE | 2020-02-07 10:57 | DS.PCM_ITS ---
Discharge Date and Diagnosis Date of Admission: 02/06/20 Date of Discharge: 02/07/20 - Primary Discharge Diagnosis Acute Problems: Active Problems Insurance coverage problems (Acute) - Secondary Discharge Diagnosis Chronic Problems: Chronic Problems Status asthmaticus (Chronic) Obesity (BMI 30-39.9) (Chronic) Asthma (Chronic) Hospital Course and Treatment Operations: None Summary of Care Provided: The patient is a 39 year old M with history of bronchial asthma was admitted with progressive worsening of shortness of breath for 2 to 3 days and decreased exercise tolerance. Patient was exposed to the IV cleaning solution and did not improve with home albuterol inhaler. Patient was further admitted in ICU for asthma exacerbation. Patient also find sinus tachycardic heart rate 125/min and hypertensive 204/134. Patient was started on IV Solu-Medrol, nebulization bronchodilator, incentive spirometry. human resources operations manager was consulted for insurance issues. Blood pressure is controlled. Patient is discharged on lisinopril HCTZ, 10-12.5 mg. Follow-up with PCP in 1 to 2 weeks to further control and uptitrate the antihypertensive medications as needed. Patient is discharged on long taper of prednisone over 12 days. Chest x-ray reported minimal pleural effusion versus costophrenic sulcus scarring otherwise unremarkable. Discussed with the tractor engine mechanic. Patient does not seem to have bacterial infection/pneumonia therefore antibiotic Levaquin discontinued. Walking pulse oximetry was done and found 95% on room air. Patient is on Advair at home. Discharge medication reconciliation done. Discharge follow-up instructions completed. Discharge process discussed with the patient and all questions were answered to patient's satisfaction. Total time spent, exact 35 minutes on discharge meds reconciliation, examination, coordination of care with nurses and ancillary staff, review of imaging and blood test and discussion with the patient on follow-up instructions. Objective: Seen and examined. Patient is mild sinus tachycardia. Blood pressure is elevated 152/97, chronically elevated. Shortness of breath is much improved. Pulse ox 95% on room air. Patient does not have insurance and is self-pay. Physical exam General: Alert, Oriented x3, Cooperative. HEENT: Atraumatic, PERRLA, EOMI, Normocephalic Oral: No Gingival or Mucosal Lesions/ Ulcerations Neck: Supple, No JVD, Negative Carotid Bruits Lungs: Air entry diminished in bilateral lung bases. Mild expiratory wheezing. No hypoxia or tachypnea. Cardiovascular: Regular rate, Regular Rhythm, Normal S1, Normal S2, No murmurs Abdomen: Bowel Sounds Present, Soft, Non Tender, Non-Distended : No renal angle tenderness. No suprapubic tenderness. Extremities: No edema, Capillary Refill Less than 3 Seconds Skin: No rashes, No breakdown Musculoskeletal: No Tenderness to Palpation of Joints or Extremities Neurological: Cranial nerves II-XII grossly intact, Deep Tendon Reflexes 2+/4 and Symmetrical, Neuro grossly intact Psych/Mental Status: Normal Affect, Appropriate. - Physical Exam Vitals/I&O's: Vital Signs Temp Pulse Resp BP Pulse Ox 98.2 F 116 H 18 184/105 H 96 02/07/20 04:00 02/07/20 10:00 02/07/20 10:00 02/07/20 10:00 02/07/20 10:00 Oxygen Flow Rate (L/min) 2 Oxygen Delivery Method Room Air Weight: 189 lb 2.506 oz Body Mass Index (BMI) 32.2 Intake and Output for Last 24 Hours 02/05/20 02/06/20 02/07/20 23:59 23:59 23:59 Intake Total 904 / 1034 3622.08 / 3622.08 Output Total 700 / 700 1400 / 1400 Balance 204 / 334 2222.08 / 2222.08 Laboratory Results 02/06/20 15:28: COVID-19 (DANA) Not Detected 02/06/20 16:10: WBC 8.9, RBC 4.65, Hgb 16.1, Hct 47.8, MCV 102.8 H, MCH 34.6 H, MCHC 33.7, RDW Std Deviation 47.3 H, RDW Coeff of Christiano 12.6, Plt Count 171, MPV 8.7, Immature Gran % (Auto) 0.200, Neut % (Auto) 71.6 H, Lymph % (Auto) 11.0 L, [place] % (Auto) 7.3, Eos % (Auto) 9.0 H, Baso % (Auto) 0.9, Absolute Neuts (auto) 6.4, Absolute Lymphs (auto) 0.98, Nucleated RBC % 0 02/06/20 16:10: Sodium 139, Potassium 4.0, Chloride 105, Carbon Dioxide 28.0, Anion Gap 6, BUN 4 L, Creatinine 0.73, Estim Creat Clear Calc 113.76, Est GFR (MDRD) Af Amer 154, Est GFR (MDRD) Non-Af 127, BUN/Creatinine Ratio 5.5 L, Glucose 101, Calcium 9.1, Troponin I < 0.015 02/07/20 04:55: WBC 6.7, RBC 4.00 L, Hgb 13.7, Hct 40.7, MCV 101.8 H, MCH 34.3 H , MCHC 33.7, RDW Std Deviation 45.5 H, RDW Coeff of Christiano 12.2, Plt Count 148 L, MPV 9.0, Immature Gran % (Auto) 0.600, Neut % (Auto) 92.7 H, Lymph % (Auto) 5.1 L, [place] % (Auto) 1.5, Eos % (Auto) 0.0, Baso % (Auto) 0.1, Absolute Neuts (auto) 6.2, Absolute Lymphs (auto) 0.34 L, Nucleated RBC % 0, Differential Comment SCANNED 02/07/20 04:55: Sodium 136, Potassium 4.0, Chloride 104, Carbon Dioxide 26.0, Anion Gap 6, BUN 6 L, Creatinine 0.67 L, Estim Creat Clear Calc 123.95, Est GFR (MDRD) Af Amer 170, Est GFR (MDRD) Non-Af 140, BUN/Creatinine Ratio 9.0 L, Glucose 144 H, Calcium 8.3 L Current Medications Acetaminophen (Tylenol) 650 mg PO Q6H PRN PRN PRN Reason: Pain Score 1-10/Temp > 100.7 F Last Admin: 02/06/20 21:30 Dose: 650 mg Documented by: Albuterol Sulfate (Ventolin Aerosols) 2.5 mg INHALATION Q2H PRN PRN Reason: SOB/WHEEZING Last Admin: 02/06/20 21:43 Dose: 2.5 mg Documented by: Albuterol/Ipratropium (Duoneb) 3 ml INHALATION Q4H.RT MODE Last Admin: 02/07/20 10:02 Dose: 3 ml Documented by: Amlodipine Besylate (Norvasc) 10 mg PO DAILY MODE Last Admin: 02/07/20 10:02 Dose: 10 mg Documented by: Guaifenesin/Codeine Phosphate (Robitussin Ac) 10 ml PO Q6H PRN PRN PRN Reason: COUGH Last Admin: 02/06/20 21:31 Dose: 10 ml Documented by: Sodium Chloride () 250 mls @ 15 mls/hr IV .[id number] PRN PRN Reason: Saline Flush Sodium Chloride () 250 mls @ 15 mls/hr IV .[id number] PRN PRN Reason: Additional IVPB Infusion Levofloxacin (Levaquin Tablet) 500 mg PO DAILY@0600 MODE Last Admin: 02/07/20 06:10 Dose: 500 mg Documented by: Methylprednisolone (Solu-Medrol) 40 mg IV Q6 MODE Last Admin: 02/07/20 06:10 Dose: 40 mg Documented by: Metoprolol Tartrate (Lopressor (Beta Akbar)) 5 mg IV Q8H PRN PRN PRN Reason: BLOOD PRESSURE ELEVATION Last Admin: 02/06/20 21:14 Dose: 5 mg Documented by: Sodium Chloride () 10 - 40 ml IV UD PRN PRN Reason: SALINE FLUSH Discharge Activity: May Not Drive - for 1-2 weeks Weight Bearing Status: Weight bearing as tolerated Call your doctor if you observe: Fever of 101 or Higher, Coldness, Increased Pain, Change in Color, Inability to urinate, Inability to have a bowel movement, Shortness of breath, Dizziness, Fainting spells, Swelling in the ankles, Chest pain, Prolonged hiccoughing, Increased palpitations (irregular heartbeat), Calf discomfort Home Medications: Medications to take at Discharge Albuterol Aerosols [Ventolin Aerosols] 2.5 mg INHALATION Q4H PRN PRN #25 vial 01/19/17 Fluticasone/Salmeterol [Advair 100-50 Diskus] 1 ea IH DAILY 01/04/19 Lisinopril/Hydrochlorothiazide [Lisinopril-Hctz 10-12.5 mg Tab] 1 ea PO DAILY #30 tab 02/07/20 Prednisone 10 mg PO UD #30 tab 02/07/20 Following Prescriptions Were Given to Patient: Lisinopril/Hydrochlorothiazide [Lisinopril-Hctz 10-12.5 mg Tab] 1 ea PO DAILY #30 tab Transmission Status: Received by [facility] #30 Prednisone 10 mg PO UD #30 tab Transmission Status: Received by [facility] #30 Primary Care Physician: Care Physician,No Primary [Primary Care Provider] - Please follow up with your Primary Care Physician in: in 1-2 weeks Please Follow Up With: Massimo Lam MD When: in 2 weeks Medical Necessity - Tobacco Use Smoking Status: Never smoker Meaningful Use Info Meaningful Use Diagnoses (Choose all that apply): None applicable OBSV E&M: 89082 Observation care discharge
--- NOTE | 2020-02-07 11:37 | PHA.DC.MC ---
Pharmacy Service has performed discharge medication reconciliation and counseling for this patient. The patient was counseled on the following discharge medications and changes in medications for homegoing were reviewed. 1. PREDNISONE 2. LISINOPRIL/HCTZ The Reason for Use, instructions for use, and potential side effects were reviewed for all new medications. The patient's questions regarding all of their medications were answered. The patient was able to verbally demonstrate an understanding of their discharge medications. Home Medications Albuterol Aerosols [Ventolin Aerosols] 2.5 mg INHALATION Q4H PRN PRN #25 vial 01/19/17 Fluticasone/Salmeterol [Advair 100-50 Diskus] 1 ea IH DAILY 01/04/19 Lisinopril/Hydrochlorothiazide [Lisinopril-Hctz 10-12.5 mg Tab] 1 ea PO DAILY #30 tab 02/07/20 Prednisone 10 mg PO UD #30 tab 02/07/20 The patient's discharge medication list was reviewed for discrepancies and discrepancies were resolved.
--- NOTE | 2020-02-08 16:07 | NURSING ---
IWONA DC F/U Call: DC Date: 02/07/2020 DC Diagnosis: Status asthmaticus (Chronic) Insurance coverage problems (Acute) DC Disposition: Home Lace/Strata: 01/28 Called patient on listed phone, answered phone. This customs entry writer introduced self and role. Patient states that he is doing good and has the papers to get established with a PCP for follow up. Denies any issues with medications, aftercare or f/u. Confirmed patient picked up medication. Denies any questions or concerns. Thanked patient for choosing [facility] for care and ended conversation. IWONA Crowell
--- NOTE | 2020-02-09 10:22 | CASEMGMT ---
Social Work Discharge follow up Phone call: Discharge Date: 02/07/20 Call Date: 02/09/20 Callt Time: 1020 Reason for Follow up: Pt with no insurance. Information for applying for Medicaid provided to pt, Medicaid office closed on day of admission. Other financial resources provided during stay. Calling to check on application process for Medicaid or other questions regarding finances. Summary of Call: No identifiers on VM. SW left non discript message requesting call back. STACIA Simmons
== END 2020-02-07 12:42 | disposition home or self-care (01) | DRG 202 ==
LOC: ED 17:08 → ICU 17:41
PROVIDERS: Admitting Provider Internal Medicine; Emergency Provider Emergency Medicine; Visit Provider Internal Medicine
DX: J45.902 Unspecified asthma with status asthmaticus (principal); J96.01 Acute respiratory failure with hypoxia; E66.9 Obesity, unspecified; I10 Essential (primary) hypertension; Z68.32 Body mass index [BMI] 32.0-32.9, adult; Z91.14 Patient's other noncompliance with medication regimen; I16.0 Hypertensive urgency
CPT/HCPCS: 71045; 80048; 84484; 85025; 87635; 94640; 99251; 99285; J7030; 90686; A4216; G0463; U0003

== ENCOUNTER 2020-05-24 11:33 | Emergency (ER) | payer SELFPAY ==
[2020-02-06 18:01] VITALS: BMI 32.2
[2020-05-24 11:34] VITALS: BP 150/93; PULSE 100; RESP 16; TEMP 36.2; O2SAT 95; BMI 34.3
--- NOTE | 2020-05-24 12:05 | ED.VIS.GEN ---
History of Present Illness Chief Complaint: Laceration Informant: Patient Narrative: 40-year-old male presents with a left hand laceration. 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 He notes his tetanus has been within the last 5 years. He is right-handed. - Past Medical History (1) Asthma Status: Chronic Past Medical History - Allergies and Home Meds Allergies/Adverse Reactions: Allergies No Known Allergies Allergy (Verified 05/24/20 11:34) Primary Care Physician: Care Physician,No Primary [Primary Care Provider] - Surgical History: no surgical history Lives: Spouse/ Significant Other Smoking Status: Never smoker Drugs: None - Family History Maternal Family History: Reports: Asthma Paternal Family History: Reports: Asthma Sibling Family History: Reports: - - He is an only child. Review of Systems General: Denies: Chills, Fever, Sweats Eyes: Denies: Visual changes - bilaterally, Diplopia ENT: Denies: Rhinorrhea, Sore throat Cardiovascular: Denies: Chest pain, Palpitations Respiratory: Denies: Dyspnea, Cough, Dyspnea on exertion Gastrointestinal: Denies: Abdominal pain, Nausea, Vomiting, Diarrhea, Melena, Hematochezia Genitourinary: Denies: Dysuria, Hematuria, Frequency Musculoskeletal: Denies: Back pain, Extremity Pain Skin: Reports: Wounds. Denies: Rash Neurological: Denies: Headache, Weakness, Numbness Physical Exam Vital Signs/Narrative: Vital Signs Temp Pulse Resp BP Pulse Ox 05/24/20 11:34 97.1 F L 100 16 150/93 H 95 Inital Vital Signs reviewed: Yes General: Well nourished, Well developed, No Acute Distress Head: Normocephalic, Atraumatic Eyes: Perrl, EOMI ENT: Moist mucous membranes, No rhinorrhea Neck: Supple, Nontender Cardiovascular: Regular rate, Regular rhythm, No murmurs Respiratory: No distress, CTA bilaterally, Chest nontender Abdomen: Soft, Nontender, Nondistended, Normal bowel sounds Back: Nontender, Normal Inspection Extremities: No edema Skin: Normal color, No rash, Trauma - There is a 2.75 linear left hand laceration over the thenar eminence on the left. Bleeding controlled. Neurovascularly intact. Neurological: Alert, Oriented x3, Cranial nerves II-XII grossly intact, Normal Strength, Normal Sensation Psychological: Normal affect, Normal Mood Diagnostic/Tx/Re-eval - Medical Decision Making Wound was locally anesthetized using 1% lidocaine. Good anesthesia was obtained. Wound was opened explored in a bloodless field and irrigated with approximately 200 cc of sterile saline. No significant muscle damage. Wound was closed using a total of 5 simple interrupted 3-0 Ethilon sutures and dressed. Wound care discussed with patient. Stitches will need to be removed in 10 days. ED Disposition - Plan for ED Patient: Disposition: Home or Assisted Living Diagnosis: Laceration of left hand Instructions: ED Laceration, Hand: All Closures Referrals: Robbin Hills MD [STAFF PHYSICIAN] - 10 Day for suture removal
--- NOTE | 2020-05-24 12:34 | ED.RN ---
lidocaine given. unable to scan or document per 5 different attempts. is aware
== END 2020-05-24 12:45 | disposition home or self-care (01) ==
LOC: ED 12:20
PROVIDERS: Emergency Provider Emergency Medicine
DX: S61.412A Laceration without foreign body of left hand, initial encounter (principal); J45.909 Unspecified asthma, uncomplicated; W26.0XXA Contact with knife, initial encounter; Y93.89 Activity, other specified; Y92.89 Other specified places as the place of occurrence of the external cause; Y99.8 Other external cause status
CPT/HCPCS: 12002; 99283

== ENCOUNTER 2020-08-10 00:56 | Observation (INO) | payer SELFPAY ==
[2020-08-10] VITALS (11 sets, daily range): BP systolic 163–201; BP diastolic 70–122; PULSE 94–124; RESP 13–20; TEMP 36.6–37.2; O2SAT 96–98; BMI 31.4; BMI 30.4; BMI 30.5
[2020-08-10 01:22] LABS: Absolute Lymphocyte Count 0.79 X10^3/uL (0.83-4.51); Absolute Neutrophil Count 5.6 X10^3/uL (2.0-7.7); Basophil# 0.08 X10^3/uL; Basophil% 1.1 % (0-1); Eosinophil# 0.16 X10^3/uL; Eosinophils% 2.2 % (0-5); Hematocrit 44.7 % (40-54); Hemoglobin 15.7 g/dL (13.0-16.5); Lymphocyte # 0.79 X10^3/ul (0.83-4.51); Lymphocyte % 10.7 % (19-41); Mean Corp Hgb Conc 35.1 g/dL (32-36); Mean Corpuscular Hgb 34.8 pg (27.0-32.0); Mean Corpuscular Volume 99.1 fL (80-94); Mean Platelet Vol. 9.2 fl (6.2-12.0); Monocyte# 0.72 X10^3/uL; Monocyte% 9.8 % (0-10); NRBC Flagged by Analyzer 0 % (0-5); Neutrophil # 5.58 X10^3/uL (2.7-7.7); Neutrophil % 75.9 % (47-70); Platelet Count 117 K/mm3 (150-450); RBC Distribution Width CV 11.9 % (11.6-14.6); Red Blood Count 4.51 M/mm3 (4.6-6.2); White Blood Count 7.4 K/mm3 (4.4-11.0)
[2020-08-10] MEDS: MethylPREDNISolone 125 MG/2 ML Vial IV (01:23)
[2020-08-10] MEDS: DiphenhydrAMINE 50 MG/ML Syringe 25 MG IV (01:23)
[2020-08-10] MEDS: Famotidine 200 MG/20 ML MDV 20 MG in 0.9% Normal Saline (Pres. free 8 ML 300 MG IV (01:23)
[2020-08-10 01:37] LABS: Anion Gap 9 (5-15); BUN 9 mg/dL (7-18); BUN/Creat Ratio 10.5 RATIO (10-20); Calcium,Total 9.3 mg/dL (8.5-10.1); Chloride 95 mmol/L (98-107); Creatinine, Serum 0.86 mg/dL (0.70-1.30); EST Glomerular Filtration Rate 104 mL/min (>60); Est Glom Filt Rate - Afr Amer 126 mL/min (>60); Estimated Creatinine Clearance 95.61 ml/min; Glucose 127 mg/dL (74-106); Potassium 3.7 mmol/L (3.5-5.1); Sodium Level 130 mmol/L (136-145)
[2020-08-10 01:43] LABS: Alcohol, Blood (Medical)-Serum < 3.0 mg/dL
--- NOTE | 2020-08-10 02:20 | ED.DCSUM_ITS ---
- ER Visit Summary Date of Service: 08/10/20 Chief Complaint: Facial swelling History of Present Illness: The patient is a 40 M presenting with facial swelling. Patient states this started around 5 PM this evening. He complains of upper lip swelling and facial swelling. He denies tongue swelling or diff iculty breathing or swallowing. He is on lisinopril. He states he occasionally misses doses but has been on this medication for several months. He states he drank alcohol over the weekend and is unsure if he used drugs at that time. Denies any new medications, soaps, detergents, pets. Physical Examination: Vitals are stable. Patient is afebrile. Alert no acute distress. HEENT exam upper lip swelling. No tongue swelling. No pharyngeal edema. Neck is supple. Lungs are clear and equal bilaterally. Heart is regular tachycardic Abdomen is soft nontender nondistended. Extremities are unremarkable. Skin is warm and dry. No rash No focal neurologic deficit. Remainder of exam is unremarkable. Emergency Department Course and Treatment: Patient was given Solu-Medrol, Benadryl, Pepcid. CBC is normal except platelet 117. Chemistries normal except sodium 130, glucose 127. Alcohol negative. Patient was observed in the ED. He has minimal improvement but is not worsening. Will discuss with hospitalist for observation. Disposition: Observation Impression: Angioedema This note was generated with [employer] dictation software. It may contain incorrect words, spelling, and punctuation that were not noted in review of the chart prior to signing ED Disposition - Plan for ED Patient: Referrals: Care Physician,No Primary [Primary Care Provider] -
[2020-08-10] MEDS: hydrALAZINE 20 MG/ML Vial 10 MG IV (03:02)
[2020-08-10] MEDS: LORazepam 1 MG Tablet PO (03:49)
--- NOTE | 2020-08-10 03:50 | ED.RN ---
Patient was shaking upon arrival but was feeling nervouse, stating he felt anxious cause he thought he was having a stroke. He was talking about drinking a beer that had been opened for a day and after talking to him said he does not drink daily, but almost daily. The etoh was negative and the shaking got worse. Sweeling in face is starting to decrease but he has some perspiration -- sheela done and dr zhang aware -- ativan given - see mar
--- NOTE | 2020-08-10 04:08 | HP.PCM_ITS ---
Problem List (1) Angioedema Status: Acute (2) Alcohol abuse Status: Acute (3) Alcohol withdrawal Status: Acute (4) Acute asthma exacerbation Status: Chronic Qualifiers: Asthma severity: severe Asthma persistence: persistent Qualified Code(s): J45.51 - Severe persistent asthma with (acute) exacerbation (5) Asthma Status: Chronic (6) Obesity (BMI 30-39.9) Status: Chronic Qualifiers: Obesity type: due to excess calories Obesity classification: adult class 1 (BMI 30 - 34.9) Serious obesity comorbidity presence: without serious comorbidity Body mass index: BMI 32.0-32.9 Qualified Code(s): E66.09 - Other obesity due to excess calories; Z68.32 - Body mass index [BMI] 32.0-32.9, adult History of Present Illness Date of Admission: 08/10/20 Chief Complaint: facial swelling The patient is a 40 year old M with a significant history of severe persistent asthma; hypertension and alcoholism who presents to the emergency department with facial swelling that started several hours before presentation. Also he has a swelling of his upper lips. His facial swelling started abruptly and it stayed the same. Further, he had erythema of his face and bilateral upper arms. He did not check his entire body to see whether he had any erythema anywhere. He reports erythema in between his breastbone that he thinks might be from a chain that he wears. He denies eating or been exposed to anything out of the ordinary. However he drank from a beer that was opened and was sitting in the fridge. He takes lisinopril. Last time he took the lisinopril was the same day of his facial swelling. Patient drinks about 2-5 beers of normal size beer. Last time he drank was a few hours before presentation and he drank one half bottle beer at that time. At emergency department he was found to be withdrawing from alcohol and was given p.o. Ativan. Past Medical History Past Medical History (Chronic Problems): Chronic Problems Acute asthma exacerbation (Chronic) Obesity (BMI 30-39.9) (Chronic) Asthma (Chronic) Allergies No Known Allergies Allergy (Verified 08/10/20 01:04) Home Medications: Ambulatory Orders Medication Instructions Recorded Albuterol Aerosols [Ventolin 2.5 mg INHALATION Q4H PRN PRN #25 01/19/17 Aerosols] vial Fluticasone/Salmeterol [Advair 1 ea IH DAILY 01/04/19 100-50 Diskus] Lisinopril/Hydrochlorothiazide 1 ea PO DAILY #30 tab 02/07/20 [Lisinopril-Hctz 10-12.5 mg Tab] Surgical History: no surgical history Psychiatric History: No pertinent psych hx Smoking Status: Never smoker Tobacco Use: Non-smoker - *Family History Maternal History Items: Asthma, Cancer Paternal History Items: Asthma, Cancer Sibling History Items: - - He is an only child. Review of Systems Constitutional: Denies: Chills, Fever, Weight Change HEENT: Denies: Head Aches, Sinus Congestion, Sinus Drainage Cardiovascular: Denies: Chest Pain, Palpitations Respiratory: Denies: Cough, Shortness of breath at rest, Sputum production Gastrointestinal: Denies: Abdominal Pain, Nausea, Vomiting Genitourinary: Denies: Dysuria Musculoskeletal: Denies: Joint Pain, Joint Tenderness Skin: Denies: Dryness, Pruritis, Wounds Neurological: Denies: Numbness, Tingling, Focal weakness Psychiatric: Reports: Anxiety. Denies: Depression, Homicidal Ideations, Suicidal Ideations Hematologic/ Lymphatic: Denies: Easy Bruising, Easy Bleeding VTE Information - Inpt Only VTE Present on Admission: No VTE Mechan Device Prophylaxis: SCD's VTE Pharm Prophylaxis ordered?: No Patient Problems: Active and Suspected Problems Angioedema (Acute) Alcohol abuse (Acute) Alcohol withdrawal (Acute) - Physical Exam Vitals/I&O's: Vital Signs Temp Pulse Resp BP Pulse Ox 97.8 F 117 H 20 H 180/109 H 97 08/10/20 03:43 08/10/20 03:43 08/10/20 03:43 08/10/20 03:43 08/10/20 03:43 Oxygen Delivery Method Room Air Weight: 82.9 kg Body Mass Index (BMI) 31.4 Intake and Output for Last 24 Hours 08/08/20 08/09/20 08/10/20 23:59 23:59 23:59 Intake Total Balance General: Alert, Oriented x3, Cooperative HEENT: Atraumatic, EOMI, - - Swollen face; swollen upper lip and erythema of face. Neck: Supple, No JVD, Negative Carotid Bruits Lungs: Diminished Cardiovascular: Normal S1, Normal S2, No murmurs, Tachycardic Abdomen: Bowel Sounds Present, Soft, Non Tender Extremities: No edema, Capillary Refill Less than 3 Seconds Skin: Rash Present - Back. Well-circumscribed rash in between breastbone Musculoskeletal: No Tenderness to Palpation of Joints or Extremities Neurological: Cranial nerves II-XII grossly intact Psych/Mental Status: Anxious Laboratory Results 08/10/20 01:15: WBC 7.4, RBC 4.51 L, Hgb 15.7, Hct 44.7, MCV 99.1 H, MCH 34.8 H, MCHC 35.1, RDW Std Deviation 43.0, RDW Coeff of Christiano 11.9, Plt Count 117 L, MPV 9.2, Immature Gran % (Auto) 0.300, Neut % (Auto) 75.9 H, Lymph % (Auto) 10.7 L, [place] % (Auto) 9.8, Eos % (Auto) 2.2, Baso % (Auto) 1.1 H, Absolute Neuts (auto) 5.6, Absolute Lymphs (auto) 0.79 L, Nucleated RBC % 0 08/10/20 01:15: Sodium 130 L, Potassium 3.7, Chloride 95 L, Carbon Dioxide 26.0, Anion Gap 9, BUN 9, Creatinine 0.86, Estim Creat Clear Calc 95.61, Est GFR (MDRD) Af Amer 126, Est GFR (MDRD) Non-Af 104, BUN/Creatinine Ratio 10.5, Glucose 127 H, Calcium 9.3 08/10/20 01:15: Ethyl Alcohol < 3.0 Assessment/Plan All Active Problems Angioedema (Acute) Alcohol abuse (Acute) Alcohol withdrawal (Acute) The patient is a 40 year old M with a significant history of severe persistent asthma; hypertension and alcoholism who presents emergency department with angioedema the setting of lisinopril use; and alcohol withdrawal. Angioedema Likely from LILLIE inhibitor. Stop LILILE inhibitor. Discussed with patient unable to take LILLIE inhibitor or LILLIE receptor blockers. Received Solu-Medrol; Benadryl and Pepcid at emergency department. Cannot rule out other causes of angioedema so will order prednisone; Pepcid and loratadine. As needed Benadryl and as needed epinephrine ordered. Alcohol dependence with withdrawal Patient was shaking at emergency department. With elevated blood pressures and heart rate. Given p.o. Ativan at emergency department. Start patient on CIWA protocol with Ativan. Folic acid; multivitamins and thiamine ordered Hypertensive urgency: Highest systolic blood pressure 201. Highest diastolic blood pressure 120. Likely secondary to alcoholism. Severe persistent asthma As needed albuterol continued On home Advair. Placed on scheduled albuterol. System steroids as above. DVT prophylaxis Low risk; encourage to ambulate OBSV E&M: [id number] Initial observation care L3
[2020-08-10] MEDS: Loratadine 10 MG Tablet PO (05:38)
[2020-08-10] MEDS: Albuterol 2.5 MG/3 ML VIAL.NEB. INHALATION (07:14)
[2020-08-10] MEDS: predniSONE 20 MG Tablet 40 MG PO (09:20)
[2020-08-10] MEDS: Famotidine 20 MG Tablet PO (09:20)
[2020-08-10] MEDS: Folic Acid 1 MG Tablet PO (09:20)
[2020-08-10] MEDS: Thiamine Hydrochloride 100 MG Tablet PO (09:20)
[2020-08-10] MEDS: Multivitamins,Ther W-Minerals Tablet 1 TABLET PO (09:20)
[2020-08-10] MEDS: hydroCHLOROthiazide 25 MG Tablet PO (09:25)
--- NOTE | 2020-08-10 09:46 | CASEMGMT ---
Patient is listed as self pay, he has no PCP, and possible alcohol abuse. NERY met with patient. Introduced self and role at [facility]. NERY asked patient if he has applied for Medicaid. He said he needs to get busy an apply. He has been busy with his job. NERY gave him a Medicaid application, the toll free number for Medicaid, information on [employer], [employer] Lerm[employer], and [facility] financial program. NERY then asked patient about his alcohol consumption and if he would like resources to help him quit. He declined resources stating he just needs to quit. NERY asked if he is sure he doesn't want any resources. He again declined stating I quit before and I can do it again. 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
[2020-08-10] MEDS: Acetaminophen 325 MG Tablet 650 MG PO (10:20)
--- NOTE | 2020-08-10 10:41 | DCINST_ITS ---
- Discharge Diagnoses Current Active Problems: Current Active and Chronic Problems Angioedema (Acute) Alcohol abuse (Acute) Alcohol withdrawal (Acute) Acute asthma exacerbation (Chronic) Obesity (BMI 30-39.9) (Chronic) Asthma (Chronic) You will use the following diet at home:: No restrictions Your food should be the consistency of: Regular Your liquids should be the consistency of: Regular/Thin Discharge Activity: Return to Normal Activity Allergies/Adverse Reactions: Allergies lisinopril Allergy (Verified 08/10/20 05:51) Angioedema Medications to take at Discharge Albuterol Aerosols [Ventolin Aerosols] 2.5 mg INHALATION Q4H PRN PRN #25 vial 01/19/17 Fluticasone/Salmeterol [Advair 100-50 Diskus] 1 ea IH DAILY 01/04/19 Hydrochlorothiazide [Hctz] 25 mg PO DAILY #30 tab 08/10/20 predniSONE tablet 40 mg PO DAILY #10 tab 08/10/20 The following prescriptions were given: Hydrochlorothiazide [Hctz] 25 mg PO DAILY #30 tab Transmission Status: Pending to [facility] #30 predniSONE tablet 40 mg PO DAILY #10 tab Transmission Status: Pending to [facility] #30 Primary Care Physician: Care Physician,No Primary [Primary Care Provider] - Please follow up with your Primary Care Physician in: Within the next 2 weeks Test Results: Test results from this visit will be discussed in further detail at your follow- up appointment, if applicable.
--- NOTE | 2020-08-10 10:49 | PCM.DC.SUM ---
<Austin Bowden - Last Filed: 08/10/20 10:49> Discharge Date and Diagnosis - Problem List Patient Problems: Active and Suspected Problems Angioedema (Acute) Alcohol abuse (Acute) Alcohol withdrawal (Acute) Date of Admission: 08/10/20 Date of Discharge: 08/10/20 - Primary Discharge Diagnosis Acute Problems: Active Problems Angioedema (Acute) Alcohol abuse (Acute) Alcohol withdrawal (Acute) - Secondary Discharge Diagnosis Chronic Problems: Chronic Problems Acute asthma exacerbation (Chronic) Obesity (BMI 30-39.9) (Chronic) Asthma (Chronic) Hospital Course and Treatment Operations: None Summary of Care Provided: Patient reported to the ED on 08/10/2020 with a chief complaint of facial/oral swelling and redness. Patient was also found to be tremulous in the ED secondary to alcohol withdrawal, and was given Ativan. Patient was admitted for angioedema secondary to taking lisinopril as well as acute alcohol withdrawal secondary to alcohol abuse. Patient's LILLIE inhibitor was held overnight and by the morning facial/oral swelling and redness had resolved. CIWA protocol was initiated on admission with Ativan and supplementation of folic acid, thiamine and multivitamins. 1) Angioedema A/P Likely from LILLIE inhibitor, given the absence of any pertinent historical findings. Lisinopril discontinued on discharge, patient will be initiated on hydrochlorothiazide 25 mg p.o. daily on discharge. Prednisone burst also initiated on discharge. Recommended to follow-up with primary care provider within the next 2 weeks. 2) Alcohol withdrawal/Alcohol abuse A/P Tremors that had been observed in the emergency department had resolved by this morning. Patient denies any other acute withdrawal symptoms to include seizure like activity, loss of consciousness and N/V/D. Patient endorses drinking about 3-5 beers in sporadic intervals throughout the week. Patient also endorses drinking more when drinking with friends. Patient did not want to pursue an addiction medicine consult at this time. Patient was advised that the services are available at the hospital when he decides that he would like to pursue treatment for his alcohol abuse. Patient encouraged to stop drinking. 3) Hypertensive urgency A/P Currently new one 170/108, stable throughout admission. Patient discharged on hydrochlorothiazide 25 mg p.o. daily. Patient encouraged to follow-up with PCP. 4) Asthma A/P Continue home Advair and Ventolin. Patient seen by Austin Bowden PA-C, under the supervision of Dr. Dasilva. Patient Problems: Active and Suspected Problems Angioedema (Acute) Alcohol abuse (Acute) Alcohol withdrawal (Acute) Subjective: Patient is a 40-year-old male comfortably resting in the chair, alert and oriented x3. Patient reports resolution of symptoms on admission to include facial and oral swelling. Patient denies chest pain, shortness of breath, palpitations, fever, N/V/D. - Physical Exam Vitals/I&O's: Vital Signs Temp Pulse Resp BP Pulse Ox 98.4 F 124 H 18 170/108 H 96 08/10/20 10:10 08/10/20 10:10 08/10/20 10:10 08/10/20 10:10 08/10/20 10:10 Oxygen Delivery Method Room Air Weight: 177 lb 11.081 oz Body Mass Index (BMI) 30.4 Intake and Output for Last 24 Hours 08/08/20 08/09/20 08/10/20 23:59 23:59 23:59 Intake Total 260 / 260 Balance 260 / 260 General: Alert, Oriented x3, Cooperative HEENT: Atraumatic, PERRLA, EOMI, Normocephalic Neck: Supple, No JVD, Negative Carotid Bruits Lungs: Clear to auscultation, Normal air movement Cardiovascular: Regular rate, No murmurs Abdomen: Bowel Sounds Present, Soft, Non Tender Extremities: No edema, Capillary Refill Less than 3 Seconds Skin: No rashes, No breakdown Musculoskeletal: No Tenderness to Palpation of Joints or Extremities Neurological: Cranial nerves II-XII grossly intact Psych/Mental Status: Normal Affect, Appropriate Laboratory Results 08/10/20 01:15: WBC 7.4, RBC 4.51 L, Hgb 15.7, Hct 44.7, MCV 99.1 H, MCH 34.8 H, MCHC 35.1, RDW Std Deviation 43.0, RDW Coeff of Christiano 11.9, Plt Count 117 L, MPV 9.2, Immature Gran % (Auto) 0.300, Neut % (Auto) 75.9 H, Lymph % (Auto) 10.7 L, [facility] % (Auto) 9.8, Eos % (Auto) 2.2, Baso % (Auto) 1.1 H, Absolute Neuts (auto) 5.6, Absolute Lymphs (auto) 0.79 L, Nucleated RBC % 0 08/10/20 01:15: Sodium 130 L, Potassium 3.7, Chloride 95 L, Carbon Dioxide 26.0, Anion Gap 9, BUN 9, Creatinine 0.86, Estim Creat Clear Calc 95.61, Est GFR (MDRD) Af Amer 126, Est GFR (MDRD) Non-Af 104, BUN/Creatinine Ratio 10.5, Glucose 127 H, Calcium 9.3 08/10/20 01:15: Ethyl Alcohol < 3.0 Current Medications Acetaminophen (Acetaminophen 325 Mg Tablet) 650 mg PO Q4H PRN PRN PRN Reason: Pain 1-10 or Fever Last Admin: 08/10/20 10:20 Dose: 650 mg Documented by: Albuterol Sulfate (Albuterol 2.5 Mg/3 Ml Vial.Neb.) 2.5 mg INHALATION Q2H PRN PRN PRN Reason: SOB/Wheezing Albuterol Sulfate (Albuterol 2.5 Mg/3 Ml Vial.Neb.) 2.5 mg INHALATION Q6HWA.RT [facility] Last Admin: 08/10/20 07:14 Dose: 2.5 mg Documented by: Diphenhydramine HCl (Diphenhydramine 50 Mg/Ml Syringe) 25 mg IV Q6H PRN PRN PRN Reason: allergic reaction Epinephrine HCl (Epinephrine (For Allergic Rxn) 0.3 Mg/0.3 Ml Syringe) 0.3 mg IM X1 PRN PRN Reason: Anaphylaxis Famotidine (Famotidine 20 Mg Tablet) 20 mg PO DAILY [facility] Last Admin: 08/10/20 09:20 Dose: 20 mg Documented by: Folic Acid (Folic Acid 1 Mg Tablet) 1 mg PO DAILY@0800 [facility] Stop: 08/12/20 08:01 Last Admin: 08/10/20 09:20 Dose: 1 mg Documented by: Hydrochlorothiazide (Hydrochlorothiazide 25 Mg Tablet) 25 mg PO DAILY [facility] Last Admin: 08/10/20 09:25 Dose: 25 mg Documented by: Sodium Chloride () 250 mls @ 15 mls/hr IV .[id number] PRN PRN Reason: Saline Flush Sodium Chloride () 250 mls @ 15 mls/hr IV .[id number] PRN PRN Reason: Additional IVPB Infusion Loratadine (Loratadine 10 Mg Tablet) 10 mg PO DAILY [facility] Last Admin: 08/10/20 05:38 Dose: 10 mg Documented by: Lorazepam (Lorazepam 1 Mg Tablet) 2 mg PO Q2H PRN PRN; Protocol PRN Reason: CIWA score > 8 but <15 Lorazepam (Lorazepam 1 Mg Tablet) 2 mg PO UD PRN; Protocol PRN Reason: CIWA score >/=15. Lorazepam (Lorazepam 2 Mg/Ml Syringe) 2 mg IV Q2H PRN PRN; Protocol PRN Reason: CIWA score > 8 but <15 Lorazepam (Lorazepam 2 Mg/Ml Syringe) 2 mg IV UD PRN; Protocol PRN Reason: CIWA score >/=15. Melatonin (Melatonin 3 Mg Tablet) 3 mg PO QHS PRN PRN PRN Reason: INSOMNIA Multivitamins/Minerals (Multivitamins,Ther W-Minerals Tablet) [facility] Admin: 08/10/20 09:20 Dose: 1 tablet Documented by: Ondansetron HCl (Ondansetron 4 Mg/2 Ml Vial) 4 mg IV Q8H PRN PRN PRN Reason: NAUSEA/VOMITING Prednisone (Prednisone 20 Mg Tablet) 40 mg PO DAILY@0800 [facility] Last Admin: 08/10/20 09:20 Dose: 40 mg Documented by: Sodium Chloride (0.9% Saline Lock 10 Ml Syringe) 10 - 40 ml IV UD PRN PRN Reason: SALINE FLUSH Thiamine HCl (Thiamine Hydrochloride 100 Mg Tablet) [facility] Stop: 08/12/20 17:01 Last Admin: 08/10/20 09:20 Dose: 100 mg Documented by: Discharge Diet: No Restrictions Discharge Activity: Return to Normal Activity Home Medications: Medications to take at Discharge Albuterol Aerosols [Ventolin Aerosols] 2.5 mg INHALATION Q4H PRN PRN #25 vial 01/19/17 Fluticasone/Salmeterol [Advair 100-50 Diskus] 1 ea IH DAILY 01/04/19 Hydrochlorothiazide [Hctz] 25 mg PO DAILY #30 tab 08/10/20 predniSONE tablet 40 mg PO DAILY #10 tab 08/10/20 Following Prescriptions Were Given to Patient: Hydrochlorothiazide [Hctz] 25 mg PO DAILY #30 tab Transmission Status: Received by [facility] #30 predniSONE tablet 40 mg PO DAILY #10 tab Transmission Status: Received by [facility] Primary Care Physician: Care Physician,No Primary [Primary Care Provider] - Please follow up with your Primary Care Physician in: Within the next 2 weeks Disposition: Home Minutes spent on discharge:: 35 Patient Condition:: Good Medical Necessity - Tobacco Use Smoking Status: Never smoker Tobacco Use: Non-smoker Meaningful Use Info Meaningful Use Diagnoses (Choose all that apply): None applicable <Jeevan Dasilva - Last Filed: 08/10/20 14:30> Discharge Date and Diagnosis - Primary Discharge Diagnosis Acute Problems: Active Problems Angioedema (Acute) Alcohol abuse (Acute) Alcohol withdrawal (Acute) - Secondary Discharge Diagnosis Chronic Problems: Chronic Problems Acute asthma exacerbation (Chronic) Obesity (BMI 30-39.9) (Chronic) Asthma (Chronic) Hospital Course and Treatment Operations: None Procedures: None Summary of Care Provided: Patient seen and examined independently. Data reviewed. I agree with the above note by the physician assistant program manager. The patient is a 40 year old M presents with rash on arms and swelling of lips. presents with angioedema. Angioedema is likely related with lisinopril. Patient is never had this problem for. Patient advised never take lisinopril again nor any other angiotensin receptor daniela medications. Patient told that this is unlikely to recur again his legs does not take those medications but I told him I cannot rule out any hereditary component of that. Just reinforced the patient starts developing symptoms similar to this in the future to notify physician or come back into the emergency room immediately. Patient was diagnosed with acute alcohol withdrawal but he feels some of his symptoms are part related with the angioedema and may be some underlying anxiety. Patient has been consistent with stating that he only drinks 4-5 beers per day and goes days without drinking without any ill effects. I do not feel the patient was going through acute alcohol withdrawal and patient expresses no desire to stop drinking though I did express that he should cut back his alcohol consumption moving forward. [] - Physical Exam Vitals/I&O's: Vital Signs Temp Pulse Resp BP Pulse Ox 36.9 C 124 H 18 170/108 H 96 08/10/20 10:10 08/10/20 10:10 08/10/20 10:10 08/10/20 10:10 08/10/20 10:10 Oxygen Delivery Method Room Air Weight: 80.6 kg Body Mass Index (BMI) 30.4 Intake and Output for Last 24 Hours 08/08/20 08/09/20 08/10/20 23:59 23:59 23:59 Intake Total 260 / 260 Balance 260 / 260 General: Alert, Cooperative HEENT: Atraumatic, Normocephalic Lungs: Clear to auscultation, Normal air movement Cardiovascular: Regular rate, No murmurs Abdomen: Bowel Sounds Present, Soft, Non Tender Extremities: No edema, No Calf Tenderness Skin: No rashes, No breakdown Psych/Mental Status: Normal Affect, Appropriate Laboratory Results 08/10/20 01:15: WBC 7.4, RBC 4.51 L, Hgb 15.7, Hct 44.7, MCV 99.1 H, MCH 34.8 H, MCHC 35.1, RDW Std Deviation 43.0, RDW Coeff of Christiano 11.9, Plt Count 117 L, MPV 9.2, Immature Gran % (Auto) 0.300, Neut % (Auto) 75.9 H, Lymph % (Auto) 10.7 L, [facility] % (Auto) 9.8, Eos % (Auto) 2.2, Baso % (Auto) 1.1 H, Absolute Neuts (auto) 5.6, Absolute Lymphs (auto) 0.79 L, Nucleated RBC % 0 08/10/20 01:15: Sodium 130 L, Potassium 3.7, Chloride 95 L, Carbon Dioxide 26.0, Anion Gap 9, BUN 9, Creatinine 0.86, Estim Creat Clear Calc 95.61, Est GFR (MDRD) Af Amer 126, Est GFR (MDRD) Non-Af 104, BUN/Creatinine Ratio 10.5, Glucose 127 H, Calcium 9.3 08/10/20 01:15: Ethyl Alcohol < 3.0 Discharge Diet: No Restrictions Discharge Activity: Return to Normal Activity Disposition: Home Minutes spent on discharge:: 35 Medical Necessity - Tobacco Use Smoking Status: Never smoker Tobacco Use: Non-smoker Meaningful Use Info Meaningful Use Diagnoses (Choose all that apply): None applicable OBSV E&M: 66386 Observation care discharge
--- NOTE | 2020-08-10 11:01 | PHA.DC.MC ---
Pharmacy Service has performed discharge medication reconciliation and counseling for this patient. 1. PREDNISONE 40MG PO DAILY WITH FOOD FOR 5 DAYS The patient's discharge medication list was reviewed for discrepancies and discrepancies were resolved. Home Medications Albuterol Aerosols [Ventolin Aerosols] 2.5 mg INHALATION Q4H PRN PRN #25 vial 01/19/17 Fluticasone/Salmeterol [Advair 100-50 Diskus] 1 ea IH DAILY 01/04/19 Hydrochlorothiazide [Hctz] 25 mg PO DAILY #30 tab 08/10/20 predniSONE tablet 40 mg PO DAILY #10 tab 08/10/20 The patient was counseled on the following discharge medications and changes in medications for homegoing were reviewed. The Reason for Use, instructions for use, and potential side effects were reviewed for all new medications. The patient's questions regarding all of their medications were answered. The patient was able to verbally demonstrate an understanding of their discharge medications.
== END 2020-08-10 10:42 | disposition home or self-care (01) ==
LOC: ED 01:55 → PCU 03:06
PROVIDERS: Admitting Provider Hospitalist; Emergency Provider Emergency Medicine
DX: T78.3XXA Angioneurotic edema, initial encounter (principal); F10.239 Alcohol dependence with withdrawal, unspecified; I16.0 Hypertensive urgency; J45.50 Severe persistent asthma, uncomplicated; I10 Essential (primary) hypertension; E66.9 Obesity, unspecified; Z68.30 Body mass index [BMI] 30.0-30.9, adult; Z79.51 Long term (current) use of inhaled steroids; Z79.899 Other long term (current) drug therapy
CPT/HCPCS: 80048; 82077; 85025; 94640; 96374; 96375; 99218; 99285; A4216; G0378; J3490

== ENCOUNTER 2021-03-29 20:11 | Emergency (ER) | payer SELFPAY ==
[2021-03-29 20:11] VITALS: BP 150/70; PULSE 94; RESP 16; TEMP 36.1; O2SAT 99; BMI 28.6
[2021-03-29 20:53] LABS: Absolute Lymphocyte Count 0.97 X10^3/uL (0.83-4.51); Absolute Neutrophil Count 7.5 X10^3/uL (2.0-7.7); Basophil# 0.22 X10^3/uL; Basophil% 2.2 % (0-1); Eosinophil# 0.45 X10^3/uL; Eosinophils% 4.4 % (0-5); Hemoglobin 10.5 g/dL (13.0-16.5); Lymphocyte # 0.97 X10^3/ul (0.83-4.51); Lymphocyte % 9.5 % (19-41); Mean Corp Hgb Conc 33.9 g/dL (32-36); Mean Corpuscular Hgb 38.7 pg (27.0-32.0); Mean Corpuscular Volume 114.4 fL (80-94); Mean Platelet Vol. 10.2 fl (6.2-12.0); Monocyte# 0.99 X10^3/uL; Monocyte% 9.7 % (0-10); NRBC Flagged by Analyzer 0 % (0-5); Neutrophil # 7.53 X10^3/uL (2.7-7.7); Neutrophil % 73.7 % (47-70); Platelet Count 189 K/mm3 (150-450); RBC Distribution Width CV 14.9 % (11.6-14.6); RBC Distribution Width SD 62.7 fl (35.1-43.9); Red Blood Count 2.71 M/mm3 (4.6-6.2); White Blood Count 10.2 K/mm3 (4.4-11.0)
[2021-03-29 20:55] LABS: Squamous Epithelial Cells - UA 0 SEEN /hpf (0-5)
[2021-03-29 21:11] LABS: Anion Gap 9 (5-15); BUN 4 mg/dL (7-18); BUN/Creat Ratio 6.4 RATIO (10-20); Calcium,Total 7.6 mg/dL (8.5-10.1); Chloride 107 mmol/L (98-107); Creatinine, Serum 0.63 mg/dL (0.70-1.30); EST Glomerular Filtration Rate 150 mL/min (>60); Est Glom Filt Rate - Afr Amer 181 mL/min (>60); Estimated Creatinine Clearance 129.21 ml/min; Glucose 134 mg/dL (74-106); Potassium 3.2 mmol/L (3.5-5.1); Sodium Level 142 mmol/L (136-145)
[2021-03-29 21:16] LABS: Color, Urine Amber (Yellow); Glucose, Dipstick Normal (Normal); Ketone-Dipstick 15 mg/dl (Negative); Leukocyte Esterase-Dipstick 25 /ul (Negative); Nitrite-Dipstick Negative (Negative); Occult Blood-Urine 10 /ul (Negative); Protein-Dipstick 30 mg/dl (Negative); Specific Gravity, Urine 1.015 (1.002-1.030); Urine Clarity Sl. Cloudy (Clear); Urine Urobilinogen 12 mg/dl (Normal)
[2021-03-29 21:23] LABS: Urine Bilirubin Dipstick 6 mg/dL (Negative)
--- NOTE | 2021-03-29 21:39 | CT_ITS ---
INDICATION: Cirrhosis EXAMINATION: CT ABDOMEN AND PELVIS WITH CONTRAST - CT Abdomen And Pelvis W/ Contrast Injection TECHNIQUE: Helically acquired images were obtained of the abdomen and pelvis following IV contrast. A radiation dose optimization technique was used for this scan. IV Contrast dosage and agent: 100 mL of [id number] Oral contrast: None. COMPARISON: None. FINDINGS: LOWER CHEST: Lung bases are clear. No cardiomegaly or pericardial effusion. Pericardial calcifications suggesting prior pericarditis. LIVER: Abnormal heterogeneous enhancement and micronodular lobular contour and prominent left hepatic lobe consistent with cirrhosis. No hyperenhancing mass lesion. GALLBLADDER AND BILIARY TREE: No calcified gallstones. No gallbladder distension. No intra- or extrahepatic biliary ductal dilation. Mild gallbladder wall thickening is due to ascites. PANCREAS: No focal cystic or solid mass. SPLEEN: Normal size without focal cystic or solid mass. ADRENAL GLANDS: No nodules. KIDNEYS AND URETERS: Normal renal size and position. No hydronephrosis. PERITONEUM: Mild ascites. No focal fluid collection. BOWEL: No evidence of acute appendicitis. No stomach or bowel distension. No focal inflammatory change. Diverticuli seen in the ascending and descending colon. LYMPH NODES: Prominent periaortic and iliac chain lymph nodes seen in the distal thorax and abdomen largest of which is a left iliac chain lymph node measuring 1 cm in diameter. VESSELS: Recanalize umbilical vein. Mild varices. Abdominal aorta is normal. URINARY BLADDER: Unremarkable. REPRODUCTIVE ORGANS: No pelvic masses. ABDOMINAL WALL: Large fat filled bilateral inguinal hernias with large amount of fat extending into the visualized portions of the scrotum. BONES: No lytic or blastic abnormality. CT/Abdomen/Pelvis W IV Cont ONLY IMPRESSION: Nonspecific prominent periaortic and iliac chain lymph nodes. These can be reactive associated with cirrhosis. Short-term follow-up is recommended. Cirrhosis, developing varices, and mild ascites. No hepatic mass lesion exemplified on this single portal venous phase exam. Diverticulosis without diverticulitis. Large fat filled bilateral inguinal hernias. Electronically Signed: Darryn Pierre DO at 23:45 EST Tel , Service support ,
[2021-03-29 21:47] LABS: Bacteria RARE /hpf (None Seen); White Blood Cells 0-5 SEEN /hpf (0-5)
[2021-03-29 21:49] LABS: Hyaline Cast 0-5 SEEN /lpf (0-5); Mucous, Urine 1+ /hpf (<or=2+)
[2021-03-29 21:50] LABS: Red Blood Cells-Urine 0-5 SEEN /hpf (0-5)
[2021-03-29 22:41] LABS: AST(SGOT) 170 U/L (15-37); Alanine Aminotransfer ALT/SGPT 48 U/L (16-61); Albumin, Serum 1.6 g/dL (3.2-5.0); Alkaline Phosphatase 207 U/L (45-117); Bilirubin, Direct 13.87 mg/dL (0.00-0.30); Globulin 4.9 g/dL (2.2-4.2); Lipase 178 U/L (73-393); Protein, Total 6.5 g/dL (6.4-8.2)
[2021-03-29 23:18] VITALS: BP 107/68; PULSE 82; RESP 14; O2SAT 99
--- NOTE | 2021-03-30 00:37 | EDS_ITS ---
HPI History of Present Illness Chief Complaint: General Illness Narrative Narrative: Patient is a 41-year-old male who states that he has noticed he is turning yellow. He states he was seen at a urgent care recently and he reportedly had hepatitis screening obtained. Patient denies any pain associated with this but does report that he drinks alcohol almost daily and has done so for multiple years. He states he is concerned as he seems to be having worsening discoloration and secondary to this comes in for evaluation [facility] Medical History (Updated 03/30/21 @ 01:[address] Jam Jiang, DO) Asthma Home Medications albuterol sulfate 2.5 mg INHALATION Q4H PRN PRN #25 vial 01/19/17 [Rx Last Taken Unknown] fluticasone propion-salmeterol 1 ea IH DAILY 01/04/19 [History Last Taken Unknown] hydrochlorothiazide 25 mg PO DAILY #30 tab 08/10/20 [Rx Last Taken Unknown] prednisone 40 mg PO DAILY #10 tab 08/10/20 [Rx Last Taken Unknown] Allergy/AdvReac Type Severity Reaction Status Date / Time lisinopril Allergy Angioedema Verified 03/29/21 20:14 Social History Smoking Status: Never smoker ROS ROS ED Constitutional Constitutional ED: Denies chills or fever(s) Eyes Eyes: Denies change in vision ENT ENT ED: Denies sore throat Cardiovascular Cardiovascular: Denies chest pain Respiratory/Chest Respiratory/Chest: Denies cough or dyspnea Gastrointestinal Gastrointestinal: Denies abdominal pain, diarrhea, nausea or vomiting Genitourinary Genitourinary ED: Denies dysuria Musculoskeletal Musculoskeletal: Denies myalgias Integumentary Denies rash Neurologic Neurologic: Denies headache(s) Hematologic/Lymphatic Hematologic/Lymphatic: Denies easy bleeding or easy bruising EXAM Physical Exam Const Vital Signs: 03/29/21 20:11 03/29/21 20:34 03/29/21 23:18 Temperature 97 F L Temperature Source Temporal Pulse Rate 94 82 Respiratory Rate 16 14 Respiratory Effort Normal Non-Labored Respiratory Pattern Normal Blood Pressure 150/70 H 107/68 Blood Pressure Mean 96 81 Pulse Ox 99 99 Oxygen Delivery Method Room Air Room Air 03/30/21 00:51 Temperature Temperature Source Pulse Rate 84 Respiratory Rate Respiratory Effort Respiratory Pattern Blood Pressure Blood Pressure Mean Pulse Ox Oxygen Delivery Method Positive well nourished and well developed General Appearance ED: well developed HEENT Reports moist mucous membranes Eyes PERRL and EOMs intact bilaterally General Eye ED: Yes scleral icterus Neck supple and no JVD Resp normal respiratory effort and clear to auscultation bilaterally Cardio regular rate and regular rhythm Rate: other Other Details: Radial pulses are plus 2 out of 4 bilaterally are equal and symmetric GI non-tender GI Narrative: Patient has mild distention noted with positive fluid wave but no pain with palpation no guarding rigidity or pulsatile mass Auscultation: normoactive bowel sounds Palpation: soft Extremity Extremity Narrative: Pitting edema to the bilateral lower extremities that is equal and symmetric Neuro oriented x3 and CN's II-XII intact bilaterally Sensorium / Orientation: alert Motor Exam: strength 5/5 throughout Psych mental status grossly normal Skin Skin Narrative: Skin is jaundice in color General Skin Exam: jaundice MDM MDM MDM Narrative Medical decision making narrative: Patient presented to the ER with painless jaundice. He does report a history of alcohol abuse and patient is history he most likely has cirrhosis from alcoholism. As he reports this is new onset I did elect to perform basic laboratory studies as well as a CT scan. Labs show severe derangement to his liver enzymes consistent with cirrhosis and his physical exam. CT scan also shows a cirrhotic liver with mild or small volume ascites and otherwise no acute inflammatory or infectious or tumor pathology. At this time he is hemodynamically stable he does not have physical exam findings to suggest spontaneous bacterial peritonitis and based on his exam and CT he does not have have gallbladder or pancreas pathology as a cause. As you only has small volume ascites I do not feel he needs a therapeutic tap at this time. Therefore patient can be referred to gastroenterology and follow-up on an outpatient basis Lab Data Attestation: I reviewed the patient's lab results. Labs: Laboratory Results - last 24 hr 03/29/21 03/29/21 03/29/21 20:30 20:30 20:45 WBC 10.2 RBC 2.71 L Hgb 10.5 L Hct 31.0 L MCV 114.4 H MCH 38.7 H MCHC 33.9 RDW Std Deviation 62.7 H RDW Coeff of Christiano 14.9 H Plt Count 189 MPV 10.2 Immature Gran % (Auto) 0.500 Neut % (Auto) 73.7 H Lymph % (Auto) 9.5 L [place] % (Auto) 9.7 Eos % (Auto) 4.4 Baso % (Auto) 2.2 H Absolute Neuts (auto) 7.5 Absolute Lymphs (auto) 0.97 Nucleated RBC % 0 Sodium 142 Potassium 3.2 L Chloride 107 Carbon Dioxide 26.0 Anion Gap 9 BUN 4 L Creatinine 0.63 L Estim Creat Clear Calc 129.21 Est GFR (MDRD) Af Amer 181 Est GFR (MDRD) Non-Af 150 BUN/Creatinine Ratio 6.4 L Glucose 134 H Calcium 7.6 L Total Bilirubin Direct Bilirubin AST ALT Alkaline Phosphatase Total Protein Albumin Globulin Lipase Urine Color Torrie Urine Clarity Sl. Cloudy Urine pH 5.0 Ur Specific [place] 1.015 Urine Protein 30 H Urine Glucose (UA) Normal Urine Ketones 15 H Urine Occult Blood 10 H Urine Nitrite Negative Urine Bilirubin 6 H Urine Urobilinogen 12 H Ur Leukocyte Esterase 25 H Urine RBC 0-5 SEEN Urine WBC 0-5 SEEN Ur Squamous Epith Cells 0 SEEN Urine Bacteria RARE Hyaline Casts 0-5 SEEN Urine Mucus 1+ 03/29/21 21:46 WBC RBC Hgb Hct MCV MCH MCHC RDW Std Deviation RDW Coeff of Christiano Plt Count MPV Immature Gran % (Auto) Neut % (Auto) Lymph % (Auto) [place] % (Auto) Eos % (Auto) Baso % (Auto) Absolute Neuts (auto) Absolute Lymphs (auto) Nucleated RBC % Sodium Potassium Chloride Carbon Dioxide Anion Gap BUN Creatinine Estim Creat Clear Calc Est GFR (MDRD) Af Amer Est GFR (MDRD) Non-Af BUN/Creatinine Ratio Glucose Calcium Total Bilirubin 18.10 H* Direct Bilirubin 13.87 H AST 170 H ALT 48 Alkaline Phosphatase 207 H Total Protein 6.5 Albumin 1.6 L Globulin 4.9 H Lipase 178 Urine Color Urine Clarity Urine pH Ur Specific [place] Urine Protein Urine Glucose (UA) Urine Ketones Urine Occult Blood Urine Nitrite Urine Bilirubin Urine Urobilinogen Ur Leukocyte Esterase Urine RBC Urine WBC Ur Squamous Epith Cells Urine Bacteria Hyaline Casts Urine Mucus Radiography Diagnostic Testing: Clinical Impression(s) from Imaging Studies Abdomen/Pelvis CT 03/29/21 21:39 IMPRESSION: Nonspecific prominent periaortic and iliac chain lymph nodes. These can be reactive associated with cirrhosis. Short-term follow-up is recommended. Cirrhosis, developing varices, and mild ascites. No hepatic mass lesion exemplified on this single portal venous phase exam. Diverticulosis without diverticulitis. Large fat filled bilateral inguinal hernias. Electronically Signed: Darryn Pierre DO at 23:45 EST Tel , Service support , Discharge Plan Triage Chief Complaint: General Illness ED Provider: Jam Jiang Dx/Rx/DC Orders Clinical Impression: Cirrhosis of liver with ascites, Jaundice Instructions: Treating Cirrhosis, ED Ascites, ED Cirrhosis Prescriptions: No Action albuterol sulfate 2.5 MG/3 ML Vial.Neb. 2.5 mg inhalation Q4H PRN PRN (Reason: Difficulty breathing or wheezi) Qty: 25 RF: 1 fluticasone propion-salmeterol 1 EACH blister with device 1 ea IH DAILY RF: 0 prednisone 20 MG tablet 40 mg PO DAILY Qty: 10 RF: 0 hydrochlorothiazide 25 MG tablet 25 mg PO DAILY Qty: 30 RF: 0 Primary Care Provider: Care Physician,No Primary Referrals: Clinton Grissom DO [STAFF PHYSICIAN] - 3-5 Days Care Physician,No Primary [Primary Care Provider] - Disposition Disposition: Home, Self Care Discharge Date/Time: 03/30/21 00:52
[2021-03-30 00:51] VITALS: PULSE 84
[2021-03-31 05:07] LABS: HEPATITIS B SURFACE AG Negative (Negative); Hepatitis A IgM Antibody Negative (Negative); Hepatitis B Core AB IgM Negative (Negative)
[2021-03-31 14:23] LABS: Hep C Antibodies <0.1 s/co ratio (0.0-0.9)
== END 2021-03-30 00:52 | disposition home or self-care (01) ==
PROVIDERS: Emergency Provider Emergency Medicine
DX: K74.60 Unspecified cirrhosis of liver (principal); R18.8 Other ascites; J45.909 Unspecified asthma, uncomplicated; Z79.51 Long term (current) use of inhaled steroids
CPT/HCPCS: 74177; 80048; 80074; 80076; 81001; 83690; 85025; 96360; 99282; J7030; Q9967; A4216

== ENCOUNTER 2021-04-17 08:56 | Emergency (ER) | payer SELFPAY ==
[2021-04-17 08:57] VITALS: BP 151/104; PULSE 111; RESP 16; TEMP 37.3; O2SAT 98; BMI 29.2
--- NOTE | 2021-04-17 09:18 | EX.ED.DYSGE1 ---
HPI History of Present Illness Chief Complaint: Constipation Informant: patient Onset/Context/Timing Onset: Month(s) (1) Context: Gradual Onset Timing: Intermittent Quality: Burning Location: Right groin Worsened by: Movement Relieved by: Rest Associated Symptoms Associated Symptoms: Constipation for past 2 weeks Narrative Narrative: Patient presents with right groin pain that has been intermittent over the past month. Patient states he was seen here approximately 2 weeks ago and had a CT scan done at that time. Patient states that since that time he has also been having some constipation. Patient states his pain is a burning sensation in his right groin. Patient states it is worse with certain movements. Patient states it is better with rest. Patient admits to some subjective chills. Patient denies any nausea or vomiting. Patient denies any urinary complaints. PFSH PFS Medical History Asthma Home Medications albuterol sulfate 2.5 mg INHALATION Q4H PRN PRN #25 vial 01/19/17 [Rx Last Taken Unknown] fluticasone propion-salmeterol 1 ea IH DAILY 01/04/19 [History Last Taken Unknown] hydrochlorothiazide 25 mg PO DAILY #30 tab 08/10/20 [Rx Last Taken Unknown] prednisone 40 mg PO DAILY #10 tab 08/10/20 [Rx Last Taken Unknown] lactulose 20 g PO TID #30 ea 04/17/21 [Rx Last Taken Unknown] Allergy/AdvReac Type Severity Reaction Status Date / Time lisinopril Allergy Angioedema Verified 04/17/21 09:00 Surgical History no surgical history no surgical history Social History Smoking Status: Never smoker ROS ROS ED Constitutional Constitutional ED: Reports chills and subjective; Denies fever(s) Eyes Eyes: Denies blurry vision or change in vision ENT ENT ED: Denies rhinorrhea or sore throat Cardiovascular Cardiovascular: Denies chest pain or palpitations Respiratory/Chest Respiratory/Chest: Denies cough or dyspnea Gastrointestinal Gastrointestinal: Reports abdominal pain and constipation; Denies nausea or vomiting Genitourinary Genitourinary ED: Denies dysuria or hematuria Musculoskeletal Musculoskeletal: Denies back pain or neck pain Integumentary Denies abscess or rash Neurologic Neurologic: Denies headache(s) or weakness Allergic/Immunologic Allergic/Immunologic ED: Denies mouth swelling or urticaria EXAM Physical Exam Const Vital Signs: 04/17/21 08:57 Temperature 99.2 F H Temperature Source Temporal Pulse Rate 111 H Respiratory Rate 16 Blood Pressure 151/104 H Blood Pressure Mean 119 Pulse Ox 98 Oxygen Delivery Method Room Air Positive well nourished and well developed General Appearance ED: well developed and NAD HEENT Reports moist mucous membranes Eyes EOMs intact bilaterally General Eye ED: Yes scleral icterus Neck supple and no JVD Resp normal respiratory effort and clear to auscultation bilaterally Cardio regular rhythm Rate: tachycardic GI non-tender Inspection: abdominal distention Palpation: soft Rectal Exam: other Other Details: Ascites Neuro oriented x3, CN's II-XII intact bilaterally and no sensory deficits noted Sensorium / Orientation: alert Motor Exam: strength 5/5 throughout Psych mental status grossly normal MDM MDM MDM Narrative Medical decision making narrative: CBC was essentially within normal limits. Hemoglobin was 11.8 and hematocrit 34.5 but these are stable compared to previous results. Comprehensive metabolic profile was obtained. Total bilirubin was elevated at 19.0. AST was 190. Alk phos was 298. These are consistent with prior results. Urinalysis does not show any evidence of urinary tract infection. Acute abdominal x-rays were obtained. There are 5 views. On my interpretation, there is no evidence of bowel obstruction or perforation. There is large amount of stool noted throughout the colon. There is no acute cardiopulmonary process noted. Radiologist also interpreted the x-rays and agrees. Patient was advised of his findings. Patient will be given a prescription for laxative. Patient was instructed to eat a high-fiber diet. Patient was instructed to follow-up with his primary care physician in 5 to 7 days. Patient understood and was agreeable with the plan. All questions were answered. Lab Data Attestation: I reviewed the patient's lab results. Labs: Laboratory Results - last 24 hr 04/17/21 04/17/21 04/17/21 09:15 09:40 09:40 WBC 7.3 RBC 3.05 L Hgb 11.8 L Hct 34.5 L MCV 113.1 H MCH 38.7 H MCHC 34.2 RDW Std Deviation 51.9 H RDW Coeff of Christiano 12.5 Plt Count 86 L MPV 10.9 Immature Gran % (Auto) 0.700 Neut % (Auto) 81.1 H Lymph % (Auto) 5.3 L [place] % (Auto) 8.5 Eos % (Auto) 2.3 Baso % (Auto) 2.1 H Absolute Neuts (auto) 5.9 Absolute Lymphs (auto) 0.39 L Nucleated RBC % 0 Platelet Estimate MOD DEC Sodium 137 Potassium 4.0 Chloride 102 Carbon Dioxide 27.0 Anion Gap 8 BUN 3 L Creatinine 0.56 L Estim Creat Clear Calc 145.36 Est GFR (MDRD) Af Amer 207 Est GFR (MDRD) Non-Af 171 BUN/Creatinine Ratio 5.4 L Glucose 106 Calcium 7.5 L Total Bilirubin 19.00 H* AST 190 H ALT 56 Alkaline Phosphatase 298 H Total Protein 6.6 Albumin 1.4 L Globulin 5.2 H Albumin/Globulin Ratio 0.3 L Urine Color SEE COMMENT BELOW Urine Clarity Cloudy Urine pH 6.5 Ur Specific [place] 1.015 Urine Protein 100 H Urine Glucose (UA) Normal Urine Ketones 5 H Urine Occult Blood 25 H Urine Nitrite Negative Urine Bilirubin 6 H Urine Urobilinogen 12 H Ur Leukocyte Esterase 25 H Urine RBC 0-5 SEEN Urine WBC 0-5 SEEN Ur Squamous Epith Cells 0-5 SEEN Amorphous Sediment 1+ Urine Bacteria 2+ Urine Mucus 0 SEEN Radiography Diagnostic Testing: Clinical Impression(s) from Imaging Studies Acute Abdomen Series 04/17/21 10:15 IMPRESSION: Large amount of fecal material is seen in the colon. Electronically Signed: James Bryan MD at 10:46 EST , Service support , Discharge Plan Triage Chief Complaint: Constipation ED Provider: Jeevan Jeffery Dx/Rx/DC Orders Clinical Impression: Constipation Instructions: ED Constipation (Adult) Prescriptions: New lactulose 20 gram packet 20 g PO TID Qty: 30 RF: 0 No Action albuterol sulfate 2.5 MG/3 ML solution for nebulization 2.5 mg inhalation Q4H PRN PRN (Reason: Difficulty breathing or wheezi) Qty: 25 RF: 1 fluticasone propion-salmeterol 1 EACH blister with device 1 ea IH DAILY RF: 0 prednisone 20 MG tablet 40 mg PO DAILY Qty: 10 RF: 0 hydrochlorothiazide 25 MG tablet 25 mg PO DAILY Qty: 30 RF: 0 Primary Care Provider: Care Physician,No Primary Referrals: Care Physician,No Primary [Primary Care Provider] - Doctor,Your [STAFF PHYSICIAN] - 3-5 Days Disposition Disposition: Home, Self Care
[2021-04-17 09:28] LABS: Mucous, Urine 0 SEEN /hpf (<or=2+)
[2021-04-17 09:36] LABS: Glucose, Dipstick Normal (Normal); Ketone-Dipstick 5 mg/dl (Negative); Leukocyte Esterase-Dipstick 25 /ul (Negative); Nitrite-Dipstick Negative (Negative); Occult Blood-Urine 25 /ul (Negative); Protein-Dipstick 100 mg/dl (Negative); Specific Gravity, Urine 1.015 (1.002-1.030); Urine Clarity Cloudy (Clear); Urine Urobilinogen 12 mg/dl (Normal); Urine pH 6.5 (5.0 - 8.0)
[2021-04-17 09:41] LABS: Color, Urine SEE COMMENT BELOW (Yellow); Urine Bilirubin Dipstick 6 mg/dL (Negative)
[2021-04-17 09:49] LABS: Amorphous Sediment 1+; Bacteria 2+ /hpf (None Seen); Red Blood Cells-Urine 0-5 SEEN /hpf (0-5); Squamous Epithelial Cells - UA 0-5 SEEN /hpf (0-5); White Blood Cells 0-5 SEEN /hpf (0-5)
[2021-04-17 09:50] LABS: Absolute Lymphocyte Count 0.39 X10^3/uL (0.83-4.51); Absolute Neutrophil Count 5.9 X10^3/uL (2.0-7.7); Basophil# 0.15 X10^3/uL; Basophil% 2.1 % (0-1); Eosinophil# 0.17 X10^3/uL; Eosinophils% 2.3 % (0-5); Hematocrit 34.5 % (40-54); Hemoglobin 11.8 g/dL (13.0-16.5); Lymphocyte # 0.39 X10^3/ul (0.83-4.51); Lymphocyte % 5.3 % (19-41); Mean Corp Hgb Conc 34.2 g/dL (32-36); Mean Corpuscular Hgb 38.7 pg (27.0-32.0); Mean Corpuscular Volume 113.1 fL (80-94); Mean Platelet Vol. 10.9 fl (6.2-12.0); Monocyte# 0.62 X10^3/uL; Monocyte% 8.5 % (0-10); NRBC Flagged by Analyzer 0 % (0-5); Neutrophil # 5.92 X10^3/uL (2.7-7.7); Neutrophil % 81.1 % (47-70); POSITIVE COUNT YES; POSITIVE DIFFERENTIAL YES; Platelet Count 86 K/mm3 (150-450); RBC Distribution Width CV 12.5 % (11.6-14.6); RBC Distribution Width SD 51.9 fl (35.1-43.9); Red Blood Count 3.05 M/mm3 (4.6-6.2); White Blood Count 7.3 K/mm3 (4.4-11.0)
[2021-04-17 09:51] LABS: Differential Indicated SCAN CRITERIA MET
[2021-04-17 10:11] LABS: ALB/GLOB Ratio 0.3 RATIO (0.9-2.4); AST(SGOT) 190 U/L (15-37); Alanine Aminotransfer ALT/SGPT 56 U/L (16-61); Albumin, Serum 1.4 g/dL (3.2-5.0); Alkaline Phosphatase 298 U/L (45-117); Anion Gap 8 (5-15); BUN 3 mg/dL (7-18); BUN/Creat Ratio 5.4 RATIO (10-20); Calcium,Total 7.5 mg/dL (8.5-10.1); Chloride 102 mmol/L (98-107); Creatinine, Serum 0.56 mg/dL (0.70-1.30); EST Glomerular Filtration Rate 171 mL/min (>60); Est Glom Filt Rate - Afr Amer 207 mL/min (>60); Estimated Creatinine Clearance 145.36 ml/min; Globulin 5.2 g/dL (2.2-4.2); Glucose 106 mg/dL (74-106); Protein, Total 6.6 g/dL (6.4-8.2); Sodium Level 137 mmol/L (136-145)
[2021-04-17 10:13] LABS: Platelet Estimate MOD DEC (ADEQ)
--- NOTE | 2021-04-17 10:15 | RAD_ITS ---
STUDY: X-RAY - ACUTE ABDOMINAL SERIES REASON FOR EXAM: Male, 41 years old. Constipation TECHNIQUE: Single view of the chest. Supine, and erect view(s) of the abdomen were obtained. COMPARISON: None. FINDINGS: The lungs are clear and expanded. Normal size heart. Normal mediastinum and paula. Normal visualized pulmonary arteries. Normal visualized aortic arch and descending thoracic aorta. There is an abundance of fecal material throughout the colon. The soft tissue structures of the abdomen and pelvis are unremarkable. Normal visualized osseous structures. RAD/Acute Abdomen Inc Chest IMPRESSION: Large amount of fecal material is seen in the colon. Electronically Signed: James Bryan MD at 10:46 EST , Service support ,
== END 2021-04-17 11:31 | disposition home or self-care (01) ==
PROVIDERS: Emergency Provider Emergency Medicine
DX: K59.00 Constipation, unspecified (principal); R10.31 Right lower quadrant pain; J45.909 Unspecified asthma, uncomplicated
CPT/HCPCS: 74022; 80053; 81001; 85025; 99283; J7030; A4216

== ENCOUNTER → 2022-05-30 | Outpatient (CLI) | payer OTHER, SELFPAY ==
[2022-05-30 10:51] LABS: Absolute Lymphocyte Count 1.56 X10^3/uL (0.83-4.51); Absolute Neutrophil Count 1.9 X10^3/uL (2.0-7.7); Basophil# 0.03 X10^3/uL; Basophil% 0.7 % (0-1); Eosinophil# 0.19 X10^3/uL; Eosinophils% 4.7 % (0-5); Lymphocyte # 1.56 X10^3/ul (0.83-4.51); Lymphocyte % 38.2 % (19-41); Mean Corp Hgb Conc 33.3 g/dL (32-36); Mean Corpuscular Hgb 30.4 pg (27.0-32.0); Mean Corpuscular Volume 91.3 fL (80-94); Mean Platelet Vol. 9.5 fl (6.2-12.0); Monocyte# 0.38 X10^3/uL; Monocyte% 9.3 % (0-10); NRBC Flagged by Analyzer 0 % (0-5); Neutrophil # 1.91 X10^3/uL (2.7-7.7); Neutrophil % 46.9 % (47-70); Platelet Count 175 K/mm3 (150-450); Red Blood Count 4.27 M/mm3 (4.6-6.2); White Blood Count 4.1 K/mm3 (4.4-11.0)
[2022-05-30 11:24] LABS: AST(SGOT) 41 U/L (15-37); Alanine Aminotransfer ALT/SGPT 58 U/L (16-61); Albumin, Serum 3.6 g/dL (3.2-5.0); Alkaline Phosphatase 142 U/L (45-117); Anion Gap 8 (5-15); BUN 16 mg/dL (7-18); BUN/Creat Ratio 16.1 RATIO (10-20); Calcium,Total 8.9 mg/dL (8.5-10.1); Chloride 109 mmol/L (98-107); Creatinine, Serum 0.99 mg/dL (0.70-1.30); EST Glomerular Filtration Rate 88 mL/min (>60); Est Glom Filt Rate - Afr Amer 106 mL/min (>60); GGTP 107 U/L (15-85); Globulin 3.4 g/dL (2.2-4.2); Glucose 105 mg/dL (74-106); Magnesium 2.1 mg/dL (1.6-2.6); Phosphorus 2.8 mg/dL (2.5-4.9); Potassium 4.2 mmol/L (3.5-5.1); Sodium Level 141 mmol/L (136-145)
[2022-05-30 11:38] LABS: International Normalized Ratio 1.2
[2022-06-03 19:46] LABS: Tacrolimus (FK506) 6.5 ng/mL (2.0-20.0)
== END | disposition home or self-care (01) ==
LOC: LAB 09:03
PROVIDERS: PCP Internal Medicine
DX: Z94.4 Liver transplant status (principal); Z79.60 Long term (current) use of unspecified immunomodulators and immunosuppressants
CPT/HCPCS: 36415; 80048; 80076; 80197; 82977; 83735; 84100; 85025; 85610

== ENCOUNTER 2022-06-20 08:54 | Outpatient (RCR) | payer OTHER, SELFPAY ==
[2022-06-13 09:58] LABS: Absolute Lymphocyte Count 1.33 X10^3/uL (0.83-4.51); Absolute Neutrophil Count 2.8 X10^3/uL (2.0-7.7); Basophil# 0.02 X10^3/uL; Basophil% 0.4 % (0-1); Eosinophil# 0.26 X10^3/uL; Eosinophils% 5.3 % (0-5); Hematocrit 38.6 % (40-54); Hemoglobin 12.6 g/dL (13.0-16.5); Lymphocyte # 1.33 X10^3/ul (0.83-4.51); Lymphocyte % 27.1 % (19-41); Mean Corp Hgb Conc 32.6 g/dL (32-36); Mean Corpuscular Hgb 29.9 pg (27.0-32.0); Mean Corpuscular Volume 91.7 fL (80-94); Mean Platelet Vol. 9.5 fl (6.2-12.0); Monocyte# 0.44 X10^3/uL; NRBC Flagged by Analyzer 0 % (0-5); Neutrophil # 2.84 X10^3/uL (2.7-7.7); Platelet Count 175 K/mm3 (150-450); RBC Distribution Width CV 12.6 % (11.6-14.6); RBC Distribution Width SD 41.5 fl (35.1-43.9); Red Blood Count 4.21 M/mm3 (4.6-6.2); White Blood Count 4.9 K/mm3 (4.4-11.0)
[2022-06-13 10:20] LABS: International Normalized Ratio 1.2; Prothrombin Time (Protime)PT. 14.6 SECONDS (11.7-14.9)
[2022-06-13 10:21] LABS: AST(SGOT) 58 U/L (15-37); Alanine Aminotransfer ALT/SGPT 68 U/L (16-61); Albumin, Serum 3.3 g/dL (3.2-5.0); Alkaline Phosphatase 130 U/L (45-117); Anion Gap 6 (5-15); BUN 20 mg/dL (7-18); BUN/Creat Ratio 18.2 RATIO (10-20); Bilirubin, Direct 0.23 mg/dL (0.00-0.30); Calcium,Total 8.8 mg/dL (8.5-10.1); Chloride 107 mmol/L (98-107); EST Glomerular Filtration Rate 78 mL/min (>60); Est Glom Filt Rate - Afr Amer 94 mL/min (>60); GGTP 129 U/L (15-85); Globulin 3.4 g/dL (2.2-4.2); Glucose 114 mg/dL (74-106); Magnesium 1.9 mg/dL (1.6-2.6); Phosphorus 2.7 mg/dL (2.5-4.9); Potassium 4.6 mmol/L (3.5-5.1); Protein, Total 6.7 g/dL (6.4-8.2); Sodium Level 137 mmol/L (136-145)
[2022-06-17 12:57] LABS: Tacrolimus (FK506) 4.5 ng/mL (2.0-20.0)
[2022-06-20 10:16] LABS: Absolute Lymphocyte Count 1.25 X10^3/uL (0.83-4.51); Absolute Neutrophil Count 2.8 X10^3/uL (2.0-7.7); Basophil# 0.03 X10^3/uL; Basophil% 0.6 % (0-1); Eosinophil# 0.34 X10^3/uL; Eosinophils% 6.9 % (0-5); Hematocrit 39.6 % (40-54); Hemoglobin 13.3 g/dL (13.0-16.5); Lymphocyte # 1.25 X10^3/ul (0.83-4.51); Lymphocyte % 25.5 % (19-41); Mean Corp Hgb Conc 33.6 g/dL (32-36); Mean Corpuscular Hgb 30.6 pg (27.0-32.0); Mean Platelet Vol. 9.2 fl (6.2-12.0); Monocyte# 0.43 X10^3/uL; Monocyte% 8.8 % (0-10); NRBC Flagged by Analyzer 0 % (0-5); Neutrophil # 2.84 X10^3/uL (2.7-7.7); Neutrophil % 57.8 % (47-70); Platelet Count 178 K/mm3 (150-450); RBC Distribution Width CV 12.4 % (11.6-14.6); RBC Distribution Width SD 41.1 fl (35.1-43.9); Red Blood Count 4.35 M/mm3 (4.6-6.2); White Blood Count 4.9 K/mm3 (4.4-11.0)
[2022-06-20 10:29] LABS: International Normalized Ratio 1.1
[2022-06-20 10:53] LABS: AST(SGOT) 26 U/L (15-37); Alanine Aminotransfer ALT/SGPT 36 U/L (16-61); Albumin, Serum 3.5 g/dL (3.2-5.0); Alkaline Phosphatase 117 U/L (45-117); Anion Gap 7 (5-15); BUN 20 mg/dL (7-18); BUN/Creat Ratio 18.2 RATIO (10-20); Calcium,Total 9.2 mg/dL (8.5-10.1); Chloride 108 mmol/L (98-107); EST Glomerular Filtration Rate 78 mL/min (>60); Est Glom Filt Rate - Afr Amer 94 mL/min (>60); GGTP 89 U/L (15-85); Globulin 3.5 g/dL (2.2-4.2); Glucose 90 mg/dL (74-106); Magnesium 1.9 mg/dL (1.6-2.6); Phosphorus 3.7 mg/dL (2.5-4.9); Potassium 4.2 mmol/L (3.5-5.1); Sodium Level 139 mmol/L (136-145)
[2022-06-24 09:52] LABS: Tacrolimus (FK506) 6.8 ng/mL (2.0-20.0)
== END 2022-06-20 18:00 | disposition home or self-care (01) ==
LOC: LAB 08:54
PROVIDERS: PCP Internal Medicine
DX: Z79.60 Long term (current) use of unspecified immunomodulators and immunosuppressants (principal); Z94.4 Liver transplant status
CPT/HCPCS: 36415; 80048; 80076; 80197; 82977; 83735; 84100; 85025; 85610

== ENCOUNTER 2022-07-17 09:14 | Outpatient (RCR) | payer OTHER, SELFPAY ==
[2022-07-17 09:39] LABS: Absolute Lymphocyte Count 0.98 X10^3/uL (0.83-4.51); Absolute Neutrophil Count 2.6 X10^3/uL (2.0-7.7); Basophil# 0.04 X10^3/uL; Basophil% 0.9 % (0-1); Eosinophils% 6.8 % (0-5); Hematocrit 40.3 % (40-54); Hemoglobin 13.6 g/dL (13.0-16.5); Lymphocyte # 0.98 X10^3/ul (0.83-4.51); Lymphocyte % 22.2 % (19-41); Mean Corp Hgb Conc 33.7 g/dL (32-36); Mean Corpuscular Hgb 30.2 pg (27.0-32.0); Mean Corpuscular Volume 89.4 fL (80-94); Mean Platelet Vol. 9.1 fl (6.2-12.0); Monocyte# 0.45 X10^3/uL; Monocyte% 10.2 % (0-10); NRBC Flagged by Analyzer 0 % (0-5); Neutrophil # 2.63 X10^3/uL (2.7-7.7); Neutrophil % 59.4 % (47-70); Platelet Count 159 K/mm3 (150-450); RBC Distribution Width CV 12.7 % (11.6-14.6); RBC Distribution Width SD 41.9 fl (35.1-43.9); Red Blood Count 4.51 M/mm3 (4.6-6.2); White Blood Count 4.4 K/mm3 (4.4-11.0)
[2022-07-17 10:10] LABS: AST(SGOT) 36 U/L (15-37); Alanine Aminotransfer ALT/SGPT 50 U/L (16-61); Albumin, Serum 3.4 g/dL (3.2-5.0); Alkaline Phosphatase 105 U/L (45-117); Anion Gap 6 (5-15); BUN 22 mg/dL (7-18); Bilirubin, Direct 0.29 mg/dL (0.00-0.30); Calcium,Total 8.8 mg/dL (8.5-10.1); Chloride 111 mmol/L (98-107); Creatinine, Serum 1.05 mg/dL (0.70-1.30); EST Glomerular Filtration Rate 82 mL/min (>60); Est Glom Filt Rate - Afr Amer 99 mL/min (>60); GGTP 97 U/L (15-85); Globulin 3.3 g/dL (2.2-4.2); Glucose 119 mg/dL (74-106); Potassium 4.1 mmol/L (3.5-5.1); Protein, Total 6.7 g/dL (6.4-8.2); Sodium Level 140 mmol/L (136-145)
[2022-07-20 08:59] LABS: Tacrolimus (FK506) 5.7 ng/mL (2.0-20.0)
== END 2022-07-26 21:45 | disposition home or self-care (01) ==
LOC: LAB 09:14
PROVIDERS: PCP Internal Medicine
DX: Z79.60 Long term (current) use of unspecified immunomodulators and immunosuppressants (principal); Z94.4 Liver transplant status; N17.9 Acute kidney failure, unspecified
CPT/HCPCS: 36415; 80048; 80076; 80197; 82977; 85025

== ENCOUNTER 2022-07-31 09:04 | Outpatient (RCR) | payer OTHER, SELFPAY ==
[2022-07-31 09:42] LABS: Absolute Lymphocyte Count 1.31 X10^3/uL (0.83-4.51); Basophil# 0.04 X10^3/uL; Basophil% 0.8 % (0-1); Eosinophil# 0.22 X10^3/uL; Eosinophils% 4.3 % (0-5); Hematocrit 38.6 % (40-54); Hemoglobin 12.9 g/dL (13.0-16.5); Lymphocyte # 1.31 X10^3/ul (0.83-4.51); Lymphocyte % 25.6 % (19-41); Mean Corp Hgb Conc 33.4 g/dL (32-36); Mean Corpuscular Hgb 29.7 pg (27.0-32.0); Mean Corpuscular Volume 88.7 fL (80-94); Mean Platelet Vol. 9.4 fl (6.2-12.0); Monocyte# 0.53 X10^3/uL; Monocyte% 10.4 % (0-10); NRBC Flagged by Analyzer 0 % (0-5); Neutrophil # 2.99 X10^3/uL (2.7-7.7); Neutrophil % 58.3 % (47-70); Platelet Count 171 K/mm3 (150-450); RBC Distribution Width CV 12.6 % (11.6-14.6); RBC Distribution Width SD 41.3 fl (35.1-43.9); Red Blood Count 4.35 M/mm3 (4.6-6.2); White Blood Count 5.1 K/mm3 (4.4-11.0)
[2022-07-31 09:54] LABS: International Normalized Ratio 1.2; Prothrombin Time (Protime)PT. 15.1 SECONDS (11.7-14.9)
[2022-07-31 10:07] LABS: AST(SGOT) 29 U/L (15-37); Alanine Aminotransfer ALT/SGPT 38 U/L (16-61); Albumin, Serum 3.4 g/dL (3.2-5.0); Alkaline Phosphatase 102 U/L (45-117); Anion Gap 8 (5-15); BUN 21 mg/dL (7-18); BUN/Creat Ratio 18.3 RATIO (10-20); Bilirubin, Direct 0.25 mg/dL (0.00-0.30); Calcium,Total 8.6 mg/dL (8.5-10.1); Chloride 108 mmol/L (98-107); Creatinine, Serum 1.15 mg/dL (0.70-1.30); EST Glomerular Filtration Rate 74 mL/min (>60); Est Glom Filt Rate - Afr Amer 90 mL/min (>60); GGTP 103 U/L (15-85); Globulin 3.2 g/dL (2.2-4.2); Glucose 105 mg/dL (74-106); Magnesium 1.6 mg/dL (1.6-2.6); Phosphorus 2.4 mg/dL (2.5-4.9); Potassium 4.3 mmol/L (3.5-5.1); Protein, Total 6.6 g/dL (6.4-8.2); Sodium Level 137 mmol/L (136-145)
== END 2022-08-25 01:10 | disposition home or self-care (01) ==
LOC: LAB 09:04
PROVIDERS: PCP Internal Medicine
DX: Z94.4 Liver transplant status; Z79.60 Long term (current) use of unspecified immunomodulators and immunosuppressants
CPT/HCPCS: 36415; 80048; 80076; 80197; 82977; 83735; 84100; 85025; 85610

== ENCOUNTER 2022-09-18 08:22 | Outpatient (RCR) | payer OTHER, SELFPAY ==
[2022-08-28 09:49] LABS: Absolute Lymphocyte Count 1.64 X10^3/uL (0.83-4.51); Absolute Neutrophil Count 2.6 X10^3/uL (2.0-7.7); Basophil# 0.04 X10^3/uL; Basophil% 0.8 % (0-1); Eosinophil# 0.27 X10^3/uL; Eosinophils% 5.3 % (0-5); Hematocrit 43.1 % (40-54); Hemoglobin 14.5 g/dL (13.0-16.5); Lymphocyte # 1.64 X10^3/ul (0.83-4.51); Lymphocyte % 32.3 % (19-41); Mean Corp Hgb Conc 33.6 g/dL (32-36); Mean Corpuscular Hgb 29.5 pg (27.0-32.0); Mean Corpuscular Volume 87.6 fL (80-94); Mean Platelet Vol. 9.2 fl (6.2-12.0); Monocyte# 0.47 X10^3/uL; Monocyte% 9.3 % (0-10); NRBC Flagged by Analyzer 0 % (0-5); Neutrophil # 2.64 X10^3/uL (2.7-7.7); Neutrophil % 51.9 % (47-70); Platelet Count 171 K/mm3 (150-450); RBC Distribution Width CV 12.7 % (11.6-14.6); RBC Distribution Width SD 40.5 fl (35.1-43.9); Red Blood Count 4.92 M/mm3 (4.6-6.2); White Blood Count 5.1 K/mm3 (4.4-11.0)
[2022-08-28 10:02] LABS: International Normalized Ratio 1.1; Prothrombin Time (Protime)PT. 13.9 SECONDS (11.7-14.9)
[2022-08-28 10:23] LABS: AST(SGOT) 23 U/L (15-37); Alanine Aminotransfer ALT/SGPT 32 U/L (16-61); Albumin, Serum 3.8 g/dL (3.2-5.0); Alkaline Phosphatase 108 U/L (45-117); Anion Gap 6 (5-15); BUN 22 mg/dL (7-18); BUN/Creat Ratio 18.8 RATIO (10-20); Bilirubin, Direct 0.34 mg/dL (0.00-0.30); Calcium,Total 9.2 mg/dL (8.5-10.1); Chloride 110 mmol/L (98-107); Creatinine, Serum 1.17 mg/dL (0.70-1.30); EST Glomerular Filtration Rate 73 mL/min (>60); Est Glom Filt Rate - Afr Amer 88 mL/min (>60); GGTP 104 U/L (15-85); Globulin 3.5 g/dL (2.2-4.2); Glucose 109 mg/dL (74-106); Magnesium 1.7 mg/dL (1.6-2.6); Phosphorus 3.2 mg/dL (2.5-4.9); Potassium 4.6 mmol/L (3.5-5.1); Protein, Total 7.3 g/dL (6.4-8.2); Sodium Level 137 mmol/L (136-145)
[2022-09-18 09:19] LABS: Absolute Lymphocyte Count 1.49 X10^3/uL (0.83-4.51); Absolute Neutrophil Count 2.8 X10^3/uL (2.0-7.7); Basophil# 0.05 X10^3/uL; Eosinophil# 0.22 X10^3/uL; Eosinophils% 4.4 % (0-5); Hematocrit 41.4 % (40-54); Hemoglobin 13.9 g/dL (13.0-16.5); Lymphocyte # 1.49 X10^3/ul (0.83-4.51); Lymphocyte % 29.6 % (19-41); Mean Corp Hgb Conc 33.6 g/dL (32-36); Mean Corpuscular Hgb 29.9 pg (27.0-32.0); Mean Platelet Vol. 9.5 fl (6.2-12.0); Monocyte# 0.49 X10^3/uL; Monocyte% 9.7 % (0-10); NRBC Flagged by Analyzer 0 % (0-5); Neutrophil # 2.77 X10^3/uL (2.7-7.7); Neutrophil % 54.9 % (47-70); Platelet Count 184 K/mm3 (150-450); RBC Distribution Width CV 13.6 % (11.6-14.6); RBC Distribution Width SD 43.6 fl (35.1-43.9); Red Blood Count 4.65 M/mm3 (4.6-6.2)
[2022-09-18 09:30] LABS: International Normalized Ratio 1.1; Prothrombin Time (Protime)PT. 14.7 SECONDS (11.7-14.9)
[2022-09-18 09:56] LABS: AST(SGOT) 19 U/L (15-37); Alanine Aminotransfer ALT/SGPT 22 U/L (16-61); Albumin, Serum 3.6 g/dL (3.2-5.0); Alkaline Phosphatase 99 U/L (45-117); Anion Gap 8 (5-15); BUN 19 mg/dL (7-18); BUN/Creat Ratio 18.3 RATIO (10-20); Bilirubin, Direct 0.25 mg/dL (0.00-0.30); Calcium,Total 8.6 mg/dL (8.5-10.1); Chloride 111 mmol/L (98-107); Creatinine, Serum 1.04 mg/dL (0.70-1.30); EST Glomerular Filtration Rate 83 mL/min (>60); Est Glom Filt Rate - Afr Amer 100 mL/min (>60); GGTP 85 U/L (15-85); Globulin 3.5 g/dL (2.2-4.2); Glucose 116 mg/dL (74-106); Magnesium 1.8 mg/dL (1.6-2.6); Phosphorus 2.5 mg/dL (2.5-4.9); Potassium 4.4 mmol/L (3.5-5.1); Protein, Total 7.1 g/dL (6.4-8.2); Sodium Level 139 mmol/L (136-145)
[2022-09-20 16:10] LABS: Tacrolimus (FK506) 9.8 ng/mL (2.0-20.0)
== END 2022-09-18 09:00 | disposition home or self-care (01) ==
LOC: LAB 08:22
PROVIDERS: PCP Internal Medicine
DX: Z94.4 Liver transplant status (principal); Z79.60 Long term (current) use of unspecified immunomodulators and immunosuppressants
CPT/HCPCS: 36415; 80048; 80076; 80197; 82977; 83735; 84100; 85025; 85610

== ENCOUNTER 2023-03-10 07:42 | Outpatient (RCR) | payer OTHER, SELFPAY ==
[2023-03-10 08:18] LABS: Absolute Lymphocyte Count 1.26 X10^3/uL (0.83-4.51); Absolute Neutrophil Count 2.4 X10^3/uL (2.0-7.7); Basophil# 0.05 X10^3/uL; Basophil% 1.2 % (0-1); Eosinophils% 4.7 % (0-5); Hematocrit 39.4 % (40-54); Hemoglobin 12.7 g/dL (13.0-16.5); Lymphocyte # 1.26 X10^3/ul (0.83-4.51); Lymphocyte % 29.5 % (19-41); Mean Corp Hgb Conc 32.2 g/dL (32-36); Mean Corpuscular Hgb 29.1 pg (27.0-32.0); Mean Corpuscular Volume 90.4 fL (80-94); Mean Platelet Vol. 9.3 fl (6.2-12.0); Monocyte# 0.39 X10^3/uL; Monocyte% 9.1 % (0-10); NRBC Flagged by Analyzer 0 % (0-5); Neutrophil # 2.36 X10^3/uL (2.7-7.7); Neutrophil % 55.3 % (47-70); Platelet Count 151 K/mm3 (150-450); RBC Distribution Width CV 12.4 % (11.6-14.6); RBC Distribution Width SD 40.9 fl (35.1-43.9); Red Blood Count 4.36 M/mm3 (4.6-6.2); White Blood Count 4.3 K/mm3 (4.4-11.0)
[2023-03-10 08:55] LABS: AST(SGOT) 18 U/L (15-37); Alanine Aminotransfer ALT/SGPT 28 U/L (16-61); Albumin, Serum 3.7 g/dL (3.2-5.0); Alkaline Phosphatase 83 U/L (45-117); Anion Gap 7 (5-15); BUN 33 mg/dL (7-18); BUN/Creat Ratio 25.2 RATIO (10-20); Bilirubin, Direct 0.26 mg/dL (0.00-0.30); Calcium,Total 8.6 mg/dL (8.5-10.1); Chloride 109 mmol/L (98-107); Creatinine, Serum 1.31 mg/dL (0.70-1.30); EST Glomerular Filtration Rate 63 mL/min (>60); Est Glom Filt Rate - Afr Amer 77 mL/min (>60); GGTP 44 U/L (15-85); Globulin 3.1 g/dL (2.2-4.2); Glucose 114 mg/dL (74-106); Phosphorus 3.3 mg/dL (2.5-4.9); Potassium 4.8 mmol/L (3.5-5.1); Protein, Total 6.8 g/dL (6.4-8.2); Sodium Level 140 mmol/L (136-145)
[2023-03-12 14:09] LABS: Tacrolimus (FK506) 10.4 ng/mL (2.0-20.0)
== END 2023-03-27 18:00 | disposition home or self-care (01) ==
LOC: LAB 07:42
PROVIDERS: PCP Internal Medicine
DX: Z94.4 Liver transplant status (principal); Z79.60 Long term (current) use of unspecified immunomodulators and immunosuppressants; N17.9 Acute kidney failure, unspecified
CPT/HCPCS: 36415; 80048; 80076; 80197; 82977; 83735; 84100; 85025

== ENCOUNTER 2023-04-07 14:51 | Emergency (ER) | payer OTHER, SELFPAY ==
[2023-04-07 14:52] VITALS: BP 159/95; PULSE 74; RESP 18; TEMP 36.4; O2SAT 98; BMI 25.4
--- NOTE | 2023-04-07 16:03 | EDS_ITS ---
HPI History of Present Illness Chief Complaint: Other, Pain/Inj Informant: patient Narrative Narrative: Andrew with concern of a right inguinal hernia. He states for the last 2 weeks he is definitely been noticing something but he thinks it has been there a lot longer. 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 If he does a lot of lifting bending and will feel a bump in the area that will occasionally get sore. But when he rests it goes away. He has not had any nausea vomiting or change in bowel habits. No blood in his stool. No fever or chills. He has a history of a liver transplant about 2 years ago but he is not getting a distended abdomen. [facility] Medical History Alcohol abuse Angioedema Asthma Cirrhosis Home Medications albuterol sulfate 2.5 mg/3 mL (0.083 %) solution for nebulization 2.5 mg (3 mL) inhalation Q4H PRN PRN Difficulty breathing or wheezi #25 vials 01/19/17 [Rx Last Taken Unknown] fluticasone 100 mcg-salmeterol 50 mcg/dose blistr powdr for inhalation 1 ea IH DAILY breathing 01/04/19 [History Last Taken Unknown] amlodipine 10 mg tablet (Norvasc) 10 mg PO DAILY 05/20/22 [History Last Taken Unknown] aspirin 81 mg tablet,delayed release 81 mg PO DAILY 05/20/22 [History Last Taken Unknown] magnesium hydroxide 400 mg (170 mg magnesium) chewable tablet 400 mg PO BID 05/20/22 [History Last Taken Unknown] mycophenolate mofetil 500 mg tablet (CellCept) 500 mg PO BID 05/20/22 [History Last Taken Unknown] pantoprazole 40 mg granules delayed-release for susp in packet (Protonix) 40 mg PO DAILY 05/20/22 [History Last Taken Unknown] sodium bicarbonate 650 mg tablet 1,300 mg PO TID-QID PRN 05/20/22 [History Last Taken Unknown] sulfamethoxazole 400 mg-trimethoprim 80 mg tablet (Bactrim) 1 tab PO .COMPLEX 05/20/22 [History Last Taken Unknown] tacrolimus 1 mg capsule,extended release 24 hr 2 mg PO BID 05/20/22 [History Last Taken Unknown] Allergy/AdvReac Type Severity Reaction Status Date / Time lisinopril Allergy Angioedema Verified 04/07/23 14:53 Family History Father Alcoholism Asthma Mother Asthma Grandmother Cancer brain Surgical History Hx of liver transplant Social History household members: none current occupational status: employed 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 [employer] Smoking Status: Never smoker Electronic Cigarette Use: not used alcohol intake: former details: former heavy drinker, 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 substance use type: marijuana what type of physical activity do you participate in: none do you feel safe at home: Yes ROS ROS ED Constitutional Constitutional ED: Denies chills or fever(s) ENT ENT ED: Denies rhinorrhea Cardiovascular Cardiovascular: Denies chest pain or palpitations Respiratory/Chest Respiratory/Chest: Denies cough or dyspnea Gastrointestinal Gastrointestinal: Denies abdominal pain, constipation, diarrhea, melena, nausea or vomiting Genitourinary Genitourinary ED: Denies dysuria or hematuria Musculoskeletal Musculoskeletal: Denies myalgias Integumentary Denies rash Endocrine Endocrinology: Denies polydipsia or polyuria Hematologic/Lymphatic Hematologic/Lymphatic: Denies easy bleeding, easy bruising or lymphadenopathy Allergic/Immunologic Allergic/Immunologic ED: Denies urticaria EXAM Physical Exam Narrative Exam Narrative: CONSTITUTIONAL: Patient is nontoxic in appearance. The patient looks comfortable. HEENT: No notable trauma. Mucous membranes moist. EYES: No conjunctival injection. Nonicteric. CARDIOVASCULAR: Regular rate. Regular rhythm. No notable murmur. No JVD. RESPIRATORY: No respiratory distress. Breathing is unlabored. No wheezes. No rhonchi. No rales. No pain with a deep breath. GASTROINTESTINAL: Not distended. Bowel sounds are normal. No tenderness. No guarding. No rebound. No palpable mass. No bruit. GENITOURINARY: No tenderness over the bladder. No CVA tenderness. Patient does have a small bulge in the right inguinal region with coughing or straining. This appears to be a direct hernia on exam. But it spontaneously goes right back in. Some momentary small bulge. But that is what he is feeling. No scrotal tenderness. MUSCULOSKELETAL: Atraumatic. No peripheral edema. NEUROLOGICAL: Patient is alert and appropriate. SKIN: No noted rashes. PSYCHIATRIC: Patient is calm. Mood is appropriate. Const Vital Signs: 04/07/23 14:52 04/07/23 15:58 Temperature 97.5 F L Temperature Source Temporal Pulse Rate 74 Respiratory Rate 18 Respiratory Effort Normal Non-Labored Respiratory Pattern Normal Blood Pressure 159/95 H Blood Pressure Mean 116 Pulse Ox 98 Oxygen Delivery Method Room Air MDM MDM MDM Narrative Medical decision making narrative: On exam, patient does have a hernia. But it spontaneously reduces and is not tender. No skin changes over it. Bowel sounds are normal and abdominal exam is normal. I had a talk with the patient regarding hernias, incarcerated hernia and strangulated hernia. We discussed reasons to return. I explained that this patient will likely need to see a surgeon at a more comprehensive [facility] because of his history of liver transplant. They will want to be very cautious. I will get him referred to [facility] surgeon but even this individual may send him to [facility]. He can also go back to [facility] where his transplant was done a couple years ago. Discharge Plan Triage Chief Complaint: Other, Pain/Inj ED Provider: Justin Pinto Dx/Rx/DC Orders Clinical Impression: Hernia, inguinal, right, History of liver transplant Instructions: ED Hernia (Adult) Prescriptions: No Action amlodipine [Norvasc] 10 mg tablet 10 mg PO DAILY tacrolimus 1 mg capsule,extended release 24hr 2 mg PO BID Rx Instructions: must administer in the morning on an empty stomach, 1 hour before or 2 hours after a meal aspirin 81 mg tablet,delayed release (DR/EC) 81 mg PO DAILY pantoprazole [Protonix] [address] for susp in packet 40 mg PO DAILY mycophenolate mofetil [CellCept] 500 mg tablet 500 mg PO BID magnesium hydroxide 400 mg (170 mg magnesium) tablet,chewable 400 mg PO BID sodium bicarbonate 650 mg tablet 1,300 mg PO TID-QID PRN sulfamethoxazole-trimethoprim [Bactrim] 400-80 mg tablet 1 tab PO .COMPLEX Rx Instructions: three times a week 1 TAB orally; albuterol sulfate 2.5 MG/3 ML solution for nebulization 2.5 mg inhalation Q4H PRN PRN (Reason: Difficulty breathing or wheezi) Qty: 25 1RF fluticasone propion-salmeterol 1 EACH blister with device 1 ea IH DAILY Primary Care Provider: Lexi Barnes Referrals: Lexi Barnes MD [Primary Care Provider] - Dany Ramey MD [Med Staff - Active Staff] - As soon as possible Disposition Disposition: Home, Self Care
== END 2023-04-07 16:43 | disposition home or self-care (01) ==
LOC: ED 16:31
PROVIDERS: Emergency Provider Emergency Medicine; PCP Internal Medicine; Referring Provider Emergency Medicine; Visit Provider Emergency Medicine
DX: K40.90 Unilateral inguinal hernia, without obstruction or gangrene, not specified as recurrent (principal); Z94.4 Liver transplant status; J45.909 Unspecified asthma, uncomplicated
CPT/HCPCS: 99283

== ENCOUNTER 2023-06-16 07:42 | Outpatient (RCR) | payer OTHER, SELFPAY ==
[2023-06-16 08:49] LABS: Absolute Lymphocyte Count 1.24 X10^3/uL (0.83-4.51); Basophil# 0.05 X10^3/uL; Eosinophil# 0.34 X10^3/uL; Eosinophils% 6.5 % (0-5); Hematocrit 40.2 % (40-54); Hemoglobin 13.8 g/dL (13.0-16.5); Lymphocyte # 1.24 X10^3/ul (0.83-4.51); Lymphocyte % 23.8 % (19-41); Mean Corp Hgb Conc 34.3 g/dL (32-36); Mean Corpuscular Hgb 29.7 pg (27.0-32.0); Mean Corpuscular Volume 86.5 fL (80-94); Mean Platelet Vol. 9.4 fl (6.2-12.0); Monocyte# 0.53 X10^3/uL; Monocyte% 10.2 % (0-10); NRBC Flagged by Analyzer 0 % (0-5); Neutrophil # 3.03 X10^3/uL (2.7-7.7); Neutrophil % 58.1 % (47-70); Platelet Count 169 K/mm3 (150-450); RBC Distribution Width CV 13.2 % (11.6-14.6); RBC Distribution Width SD 41.1 fl (35.1-43.9); Red Blood Count 4.65 M/mm3 (4.6-6.2); White Blood Count 5.2 K/mm3 (4.4-11.0)
[2023-06-16 09:15] LABS: AST(SGOT) 14 U/L (15-37); Alanine Aminotransfer ALT/SGPT 19 U/L (16-61); Albumin, Serum 3.8 g/dL (3.2-5.0); Alkaline Phosphatase 76 U/L (45-117); Anion Gap 5 (5-15); BUN 29 mg/dL (7-18); BUN/Creat Ratio 24.2 RATIO (10-20); Bilirubin, Direct 0.44 mg/dL (0.00-0.30); Calcium,Total 8.8 mg/dL (8.5-10.1); Chloride 109 mmol/L (98-107); EST Glomerular Filtration Rate 70 mL/min (>60); Est Glom Filt Rate - Afr Amer 85 mL/min (>60); GGTP 46 U/L (15-85); Glucose 121 mg/dL (74-106); Magnesium 1.7 mg/dL (1.6-2.6); Potassium 4.1 mmol/L (3.5-5.1); Protein, Total 6.8 g/dL (6.4-8.2); Sodium Level 135 mmol/L (136-145)
[2023-06-19 16:10] LABS: Tacrolimus (FK506) 8.6 ng/mL (2.0-20.0)
== END 2023-06-26 18:00 | disposition home or self-care (01) ==
LOC: LAB 07:42
PROVIDERS: PCP Internal Medicine
DX: Z94.4 Liver transplant status (principal); N17.9 Acute kidney failure, unspecified; Z79.60 Long term (current) use of unspecified immunomodulators and immunosuppressants
CPT/HCPCS: 36415; 80048; 80076; 80197; 82977; 83735; 84100; 85025

== ENCOUNTER 2023-09-15 08:37 | Outpatient (RCR) | payer OTHER, SELFPAY ==
[2023-09-15 09:45] LABS: Absolute Lymphocyte Count 1.47 X10^3/uL (0.83-4.51); Absolute Neutrophil Count 2.9 X10^3/uL (2.0-7.7); Basophil# 0.05 X10^3/uL; Eosinophil# 0.31 X10^3/uL; Hematocrit 39.7 % (40-54); Hemoglobin 13.7 g/dL (13.0-16.5); Lymphocyte # 1.47 X10^3/ul (0.83-4.51); Lymphocyte % 28.3 % (19-41); Mean Corp Hgb Conc 34.5 g/dL (32-36); Mean Corpuscular Hgb 29.7 pg (27.0-32.0); Mean Corpuscular Volume 85.9 fL (80-94); Mean Platelet Vol. 9.3 fl (6.2-12.0); Monocyte# 0.44 X10^3/uL; Monocyte% 8.5 % (0-10); NRBC Flagged by Analyzer 0 % (0-5); Neutrophil # 2.91 X10^3/uL (2.7-7.7); Platelet Count 189 K/mm3 (150-450); RBC Distribution Width CV 12.6 % (11.6-14.6); RBC Distribution Width SD 39.2 fl (35.1-43.9); Red Blood Count 4.62 M/mm3 (4.6-6.2); White Blood Count 5.2 K/mm3 (4.4-11.0)
[2023-09-15 09:59] LABS: International Normalized Ratio 1.2; Prothrombin Time (Protime)PT. 14.7 SECONDS (11.7-14.9)
[2023-09-15 10:24] LABS: AST(SGOT) 21 U/L (15-37); Alanine Aminotransfer ALT/SGPT 25 U/L (16-61); Albumin, Serum 3.9 g/dL (3.2-5.0); Alkaline Phosphatase 61 U/L (45-117); Anion Gap 6 (5-15); BUN 24 mg/dL (7-18); BUN/Creat Ratio 22.6 RATIO (10-20); Bilirubin, Direct 0.27 mg/dL (0.00-0.30); Calcium,Total 9.2 mg/dL (8.5-10.1); Chloride 108 mmol/L (98-107); Creatinine, Serum 1.06 mg/dL (0.70-1.30); EST Glomerular Filtration Rate 81 mL/min (>60); Est Glom Filt Rate - Afr Amer 98 mL/min (>60); GGTP 40 U/L (15-85); Globulin 3.2 g/dL (2.2-4.2); Glucose 101 mg/dL (74-106); Magnesium 1.6 mg/dL (1.6-2.6); Phosphorus 2.9 mg/dL (2.5-4.9); Potassium 3.6 mmol/L (3.5-5.1); Protein, Total 7.1 g/dL (6.4-8.2); Sodium Level 137 mmol/L (136-145)
[2023-09-19 14:09] LABS: Tacrolimus (FK506) 6.1 ng/mL (2.0-20.0)
== END 2023-09-15 18:00 | disposition home or self-care (01) ==
LOC: LAB 08:37
PROVIDERS: PCP Internal Medicine
DX: Z94.4 Liver transplant status (principal); Z79.60 Long term (current) use of unspecified immunomodulators and immunosuppressants
CPT/HCPCS: 36415; 80048; 80076; 80197; 82977; 83735; 84100; 85025; 85610

== ENCOUNTER 2024-02-03 11:16 | Emergency (ER) | payer OTHER, SELFPAY ==
[2024-02-03 11:16] VITALS: BP 174/110; PULSE 106; RESP 20; TEMP 36.3; O2SAT 92
--- NOTE | 2024-02-03 11:28 | EKG12_ITS ---
Test Reason : SOB Blood Pressure : / mmHG Vent. Rate : 116 BPM Atrial Rate : 116 BPM P-R Int : 144 ms QRS Dur : 082 ms QT Int : 314 ms P-R-T Axes : 071 085 072 degrees QTc Int : 436 ms Sinus tachycardia Otherwise normal ECG Confirmed by YANG JIANG, NAKUL ([id number]), fan mail editor TIFFANY COTTON ([id number]) on 02/04/2024 9:24:55 AM Referred By: Confirmed By:NAKUL SORIA MD
--- NOTE | 2024-02-03 11:32 | EDS_ITS ---
HPI History of Present Illness Chief Complaint: Asthma Narrative Narrative: 43-year-old male past medical history of moderate asthma, states he gets flareups a few times a year presents with increasing difficulty breathing and asthma exacerbation since yesterday. He denies any fevers or chills, he has an occasional cough. He states his symptoms were worse yesterday, but he has both an MDI and nebulizer treatments at home. He just used a treatment, but still feels very short of breath. His last steroid use was 5 or 6 months ago. He denies any exacerbating or alleviating factors. No chest pain, no nausea or vomiting, no diaphoresis. Non-smoker. [facility] Medical History Cirrhosis Asthma Alcohol abuse Angioedema Home Medications ?Medication ?Instructions ?Recorded ?Last Taken ?Type albuterol sulfate 2.5 mg/3 mL 2.5 mg (3 mL) inhalation Q4H PRN 01/19/17 Unknown Rx (0.083 %) solution for nebulization PRN Difficulty breathing or wheezi #25 vials fluticasone 100 mcg-salmeterol 50 1 ea IH DAILY breathing 01/04/19 Unknown History mcg/dose blistr powdr for inhalation amlodipine 10 mg tablet (Norvasc) 10 mg PO DAILY 05/20/22 Unknown History aspirin 81 mg tablet,delayed 81 mg PO DAILY 05/20/22 Unknown History release magnesium hydroxide 400 mg (170 mg 400 mg PO BID 05/20/22 Unknown History magnesium) chewable tablet mycophenolate mofetil 500 mg 500 mg PO BID 05/20/22 Unknown History tablet (CellCept) pantoprazole 40 mg granules 40 mg PO DAILY 05/20/22 Unknown History delayed-release for susp in packet (Protonix) sodium bicarbonate 650 mg tablet 1,300 mg PO TID-QID PRN 05/20/22 Unknown History sulfamethoxazole 400 1 tab PO .COMPLEX 05/20/22 Unknown History mg-trimethoprim 80 mg tablet (Bactrim) tacrolimus 1 mg capsule,extended 2 mg PO BID 05/20/22 Unknown History release 24 hr albuterol sulfate 2.5 mg/3 mL 2.5 mg (3 mL) inhalation Q4H PRN 02/03/24 Unknown Rx (0.083 %) solution for nebulization #25 vials prednisone 20 mg tablet 40 mg (2 x 20 mg) PO DAILY #14 tabs 02/03/24 Unknown Rx Allergy/AdvReac Type Severity Reaction Status Date / Time lisinopril Allergy Angioedema Verified 02/03/24 11:17 Family History Father Alcoholism Asthma Mother Asthma Grandmother Cancer brain Surgical History Hx of liver transplant Social History household members: none current occupational status: employed 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 EXAM Physical Exam Narrative Exam Narrative: Afebrile. Vital signs noted. HEENT examination shows PERRL, EOMI, no drooling or trismus. Airway is patent. Speaking in 4-5 word sentences. No stridor. Cardiovascular examination reveals a mild tachycardia. Respiratory examination reveals mild tachypnea with decreased air movement and expiratory wheezing in the bilateral bases/diffusely. Abdomen soft nontender with normal active bowel sounds. Neurological examination is nonfocal and nonlateralizing. No pedal edema. Const Vital Signs: 02/03/24 11:16 02/03/24 11:21 02/03/24 11:33 Temperature 97.4 F L Temperature Source Temporal Pulse Rate 106 H 105 H Respiratory Rate 20 H 18 Respiratory Effort Short of Breath Respiratory Depth Shallow Respiratory Pattern Tachypnea Normal Blood Pressure 174/110 H Blood Pressure Mean 131 Pulse Ox 92 Oxygen Delivery Method Room Air 02/03/24 12:13 02/03/24 13:00 Temperature Temperature Source Pulse Rate 96 Respiratory Rate 24 H Respiratory Effort Respiratory Depth Respiratory Pattern Blood Pressure 156/99 H Blood Pressure Mean 117 Pulse Ox 91 Oxygen Delivery Method Room Air MDM MDM MDM Narrative Medical decision making narrative: Differential diagnosis includes but not limited to acute asthma exacerbation versus pneumonia versus pneumothorax. His pulse ox was only 92% on room air so he was placed on nasal cannula oxygen for comfort. I do feel chest x-ray is indicated. He will be given a DuoNeb aerosolized treatment here and Solu-Medrol 125 mg intravenously. History and physical does not support pneumothorax, he is not overtly hypoxic, and he does have diminished breath sounds but equal breath sounds bilaterally. No tracheal deviation on exam. EKG was obtained and interpreted by myself independently as sinus tachycardia at 116 bpm without ectopy or acute ST changes. Patient initially was given DuoNeb aerosolized treatment, as well as methylprednisolone as stated above. Repeat examination shows slight dip in his pulse ox to 88 to 89% on room air. This might be secondary to temporary VQ mismatch after opening up his airways with albuterol and steroids. He was given another albuterol aerosol after reexamination as he had continued bronchospasm and wheezing. He was ambulated and was 91% on room air, but at rest he is at 95 to 96% on room air. He now has a normal heart rate. I feel he can be d ischarged safely home with follow-up. I wrote him prescriptions for more nebulizer treatments to use every 4 hours as well as a steroid burst. He will follow-up with his primary care provider. I do not feel he requires observation or admission at this time and the patient is motivated for discharge. Return instructions reviewed. Disposition is discharged home in improved and stable condition. History & Record Review Discussion w/independent historian: Patient Radiography Diagnostic Testing: Clinical Impression(s) from Imaging Studies Chest X-Ray 02/03/24 11:59 IMPRESSION: Hyperinflation. No acute abnormality seen. Electronically Signed: James Bryan MD at 12:19 EDT , Discharge Plan Triage Chief Complaint: Asthma ED Provider: Kirit Moreira Dx/Rx/DC Orders Clinical Impression: Asthma, SOB (shortness of breath) Instructions: Asthma Dx, ED Asthma, Acute (Adult) Prescriptions: New albuterol sulfate 2.5 mg /3 mL (0.083 %) solution for nebulization 2.5 mg inhalation Q4H PRN Qty: 25 0RF Rx Instructions: Use q4 hours and PRN for wheezing prednisone 20 mg tablet 40 mg PO DAILY Qty: 14 0RF No Action amlodipine [Norvasc] 10 mg tablet 10 mg PO DAILY tacrolimus 1 mg capsule,extended release 24hr 2 mg PO BID Rx Instructions: must administer in the morning on an empty stomach, 1 hour before or 2 hours after a meal aspirin 81 mg tablet,delayed release (DR/EC) 81 mg PO DAILY pantoprazole [Protonix] [address] for susp in packet 40 mg PO DAILY mycophenolate mofetil [CellCept] 500 mg tablet 500 mg PO BID magnesium hydroxide 400 mg (170 mg magnesium) tablet,chewable 400 mg PO BID sodium bicarbonate 650 mg tablet 1,300 mg PO TID-QID PRN sulfamethoxazole-trimethoprim [Bactrim] 400-80 mg tablet 1 tab PO .COMPLEX Rx Instructions: three times a week 1 TAB orally; albuterol sulfate 2.5 MG/3 ML solution for nebulization 2.5 mg inhalation Q4H PRN PRN (Reason: Difficulty breathing or wheezi) Qty: 25 1RF fluticasone propion-salmeterol 1 EACH blister with device 1 ea IH DAILY Primary Care Provider: Lexi Barnes Referrals: Lexi Barnes MD [Primary Care Provider] - 1-2 Days if not improving Activity Restrictions/Additional Instructions: Use your albuterol MDI and/or nebulizer every 4-6 hours as needed. Take all of the prednisone. Follow-up with your primary care provider. Return with increased difficulty breathing, new or worsening symptoms. Print Language: Belarusian Disposition Disposition: Home, Self Care
[2024-02-03 11:33] VITALS: PULSE 105; RESP 18
[2024-02-03] MEDS: Ipratropium/Albuterol Sulfate 3 ML AMPUL.NEB INHALATION (11:33)
[2024-02-03] MEDS: Albuterol 2.5 MG/3 ML VIAL.NEB. INHALATION ×2 (11:33→12:51)
[2024-02-03] MEDS: MethylPREDNISolone 125 MG/2 ML Vial IV (11:37)
--- NOTE | 2024-02-03 11:59 | RAD_ITS ---
STUDY: X-RAY CHEST REASON FOR EXAM: Male, 43 years old. Shortness of breath TECHNIQUE: Single AP portable view of the chest. COMPARISON: Comparison is made with prior study dated April 17, 2021. FINDINGS: EKG electrodes are seen. Hyperinflation. The lungs are clear. Stable blunting of the costophrenic angles bilaterally. Normal size heart. Normal mediastinum and paula. Normal visualized pulmonary arteries. Normal visualized aortic arch and descending thoracic aorta. Normal visualized thoracic spine. Normal visualized ribs, clavicles, and shoulders. There is no demonstrated abnormality of the visualized soft tissue structures of the upper abdomen. RAD/Chest 1 View (Portable) IMPRESSION: Hyperinflation. No acute abnormality seen. Electronically Signed: James Bryan MD at 12:19 EDT ,
[2024-02-03 12:51] VITALS: PULSE 98; RESP 18
[2024-02-03 13:00] VITALS: BP 156/99; PULSE 96; RESP 24; O2SAT 91
[2024-02-03 13:21] VITALS: O2SAT 96
[2024-02-03 14:04] VITALS: BP 159/105; PULSE 100; RESP 20; O2SAT 92
== END 2024-02-03 14:07 | disposition home or self-care (01) ==
PROVIDERS: Emergency Provider Emergency Medicine; PCP Internal Medicine; Visit Provider Emergency Medicine
DX: J45.909 Unspecified asthma, uncomplicated (principal); R06.02 Shortness of breath
CPT/HCPCS: 71045; 93005; 94640; 99283; A4216

== ENCOUNTER 2024-03-29 08:28 | Outpatient (RCR) | payer OTHER, SELFPAY ==
[2024-03-29 09:10] LABS: Absolute Lymphocyte Count 1.66 X10^3/uL (0.83-4.51); Absolute Neutrophil Count 3.4 X10^3/uL (2.0-7.7); Basophil# 0.07 X10^3/uL; Basophil% 1.2 % (0-1); Eosinophil# 0.31 X10^3/uL; Eosinophils% 5.1 % (0-5); Hemoglobin 14.4 g/dL (13.0-16.5); Lymphocyte # 1.66 X10^3/ul (0.83-4.51); Lymphocyte % 27.5 % (19-41); Mean Corp Hgb Conc 35.1 g/dL (32-36); Mean Corpuscular Hgb 30.1 pg (27.0-32.0); Mean Corpuscular Volume 85.6 fL (80-94); Monocyte# 0.63 X10^3/uL; Monocyte% 10.4 % (0-10); NRBC Flagged by Analyzer 0 % (0-5); Neutrophil # 3.36 X10^3/uL (2.7-7.7); Neutrophil % 55.6 % (47-70); Platelet Count 203 K/mm3 (150-450); RBC Distribution Width CV 12.6 % (11.6-14.6); RBC Distribution Width SD 39.3 fl (35.1-43.9); Red Blood Count 4.79 M/mm3 (4.6-6.2)
[2024-03-29 09:26] LABS: International Normalized Ratio 1.2
[2024-03-29 09:35] LABS: AST(SGOT) 16 U/L (15-37); Alanine Aminotransfer ALT/SGPT 22 U/L (16-61); Albumin, Serum 3.8 g/dL (3.2-5.0); Alkaline Phosphatase 59 U/L (45-117); Anion Gap 6 (5-15); BUN 22 mg/dL (7-18); BUN/Creat Ratio 20.2 RATIO (10-20); Bilirubin, Direct 0.41 mg/dL (0.00-0.30); Chloride 110 mmol/L (98-107); Creatinine, Serum 1.09 mg/dL (0.70-1.30); EST Glomerular Filtration Rate 78 mL/min (>60); Est Glom Filt Rate - Afr Amer 95 mL/min (>60); Globulin 3.3 g/dL (2.2-4.2); Glucose 107 mg/dL (74-106); Magnesium 1.8 mg/dL (1.6-2.6); Phosphorus 2.3 mg/dL (2.5-4.9); Potassium 4.3 mmol/L (3.5-5.1); Protein, Total 7.1 g/dL (6.4-8.2); Sodium Level 139 mmol/L (136-145)
[2024-03-31 12:09] LABS: GGTP 22 IU/L (0-65); Tacrolimus (FK506) 7.5 ng/mL (2.0-20.0)
== END 2024-03-29 18:00 | disposition home or self-care (01) ==
LOC: LAB 08:28
PROVIDERS: PCP Internal Medicine
DX: Z94.4 Liver transplant status (principal); N17.9 Acute kidney failure, unspecified; Z79.60 Long term (current) use of unspecified immunomodulators and immunosuppressants
CPT/HCPCS: 36415; 80048; 80076; 80197; 82977; 83735; 84100; 85025; 85610

== ENCOUNTER 2024-06-11 16:17 | Emergency (ER) | payer OTHER, SELFPAY ==
[2024-06-11] VITALS (8 sets, daily range): BP systolic 124–200; BP diastolic 88–128; PULSE 104–132; RESP 16–28; TEMP 36.1–36.6; O2SAT 92–99; BMI 25.3
[2024-06-11] MEDS: 0.9% Normal Saline (1000mL) 1,000 ML 999 ML IV (16:36)
[2024-06-11 16:49] LABS: Absolute Lymphocyte Count 1.48 X10^3/uL (0.83-4.51); Basophil# 0.05 X10^3/uL; Basophil% 0.6 % (0-1); Eosinophil# 0.36 X10^3/uL; Eosinophils% 4.2 % (0-5); Hematocrit 47.1 % (40-54); Hemoglobin 15.9 g/dL (13.0-16.5); Lymphocyte # 1.48 X10^3/ul (0.83-4.51); Lymphocyte % 17.5 % (19-41); Mean Corp Hgb Conc 33.8 g/dL (32-36); Mean Corpuscular Hgb 29.3 pg (27.0-32.0); Mean Corpuscular Volume 86.7 fL (80-94); Mean Platelet Vol. 9.3 fl (6.2-12.0); Monocyte# 0.58 X10^3/uL; Monocyte% 6.8 % (0-10); NRBC Flagged by Analyzer 0 % (0-5); Neutrophil # 5.99 X10^3/uL (2.7-7.7); Neutrophil % 70.7 % (47-70); Platelet Count 199 K/mm3 (150-450); RBC Distribution Width CV 13.2 % (11.6-14.6); RBC Distribution Width SD 39.8 fl (35.1-43.9); Red Blood Count 5.43 M/mm3 (4.6-6.2); White Blood Count 8.5 K/mm3 (4.4-11.0)
--- NOTE | 2024-06-11 16:50 | RAD_ITS ---
PROCEDURE: CHEST PA AND LATERAL REASON FOR EXAM: Shortness of breath TECHNIQUE: Frontal and lateral views of the chest. COMPARISON: 02/03/2024 FINDINGS: The lungs are clear. No pleural effusion or pneumothorax. The cardiomediastinal silhouette is unremarkable. No acute osseous or soft tissue abnormality. RAD/Chest PA and Lateral IMPRESSION: 1. No acute cardiopulmonary process. Reading Location: [facility]
--- NOTE | 2024-06-11 17:03 | ED.VIS.DYS ---
HPI History of Present Illness Chief Complaint: Asthma Narrative Narrative: Chief complaint and HPI: Asthma exacerbation. 44-year-old male with past medical history of asthma, HTN presents for evaluation of asthma exacerbation. Patient states for the past couple days he has had a cough. He states yesterday he became more short of breath and his chest became tight like it does with an asthma exacerbation. He has been using his home albuterol, ProAir, and albuterol nebulizers with some improvement. He states the symptoms worsened today which is why he presents. He denies any fever, chills, chest pain, abdominal pain, nausea, vomiting. Review of systems: See HPI Medications: As listed on the chart Allergies: As listed on the chart PFSH: Per chart Vital signs: As listed on the chart. Reviewed. Physical exam: Gen: A&O x3, NAD Head: Normocephalic, atraumatic Eyes: No sclera icterus, conjunctiva clear, PERRL, EOMI ENT: Moist mucous membranes Neck: Trachea midline, No JVD CV: Tachycardic, regular rhythm, no murmurs, no peripheral edema Resp: Lungs CTA BL with expiratory wheezing, on 2 L nasal cannula for comfort GI: Abd soft, non-distended, non-tender, no r/r/g Musc: Full ROM, no deformity Skin: Warm, dry Neuro: Alert, oriented, grossly intact, sensation intact Psych: Cooperative, appropriate mood and affect [facility] Medical History Cirrhosis Asthma Alcohol abuse Angioedema Home Medications ?Medication ?Instructions ?Recorded ?Last Taken ?Type fluticasone 100 mcg-salmeterol 50 1 ea IH DAILY breathing 01/04/19 Unknown History mcg/dose blistr powdr for inhalation amlodipine 10 mg tablet (Norvasc) 10 mg PO DAILY 05/20/22 Unknown History aspirin 81 mg tablet,delayed 81 mg PO DAILY 05/20/22 Unknown History release magnesium hydroxide 400 mg (170 mg 400 mg PO BID 05/20/22 Unknown History magnesium) chewable tablet mycophenolate mofetil 500 mg 500 mg PO BID 05/20/22 Unknown History tablet (CellCept) pantoprazole 40 mg granules 40 mg PO DAILY 05/20/22 Unknown History delayed-release for susp in packet (Protonix) sodium bicarbonate 650 mg tablet 1,300 mg PO TID-QID PRN 05/20/22 Unknown History sulfamethoxazole 400 1 tab PO .COMPLEX 05/20/22 Unknown History mg-trimethoprim 80 mg tablet (Bactrim) tacrolimus 1 mg capsule,extended 2 mg PO BID 05/20/22 Unknown History release 24 hr albuterol sulfate 2.5 mg/3 mL 2.5 mg (3 mL) inhalation Q4H PRN 02/03/24 Unknown Rx (0.083 %) solution for nebulization #25 vials tacrolimus 1 mg capsule, mg PO 02/03/24 Unknown History immediate-release prednisone 20 mg tablet 40 mg (2 x 20 mg) PO DAILY 5 days 06/11/24 Unknown Rx #10 tabs Allergy/AdvReac Type Severity Reaction Status Date / Time lisinopril Allergy Angioedema Verified 02/03/24 11:17 Family History Father Alcoholism Asthma Mother Asthma Grandmother Cancer brain Surgical History Hx of liver transplant Social History household members: none current occupational status: employed 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[employer] Smoking Status: Never smoker Electronic Cigarette Use: not used alcohol intake: former details: former heavy drinker, 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 substance use type: marijuana what type of physical activity do you participate in: none do you feel safe at home: Yes EXAM Physical Exam Const Vital Signs: 06/11/24 16:18 06/11/24 16:22 06/11/24 16:42 Temperature 97.7 F L Temperature Source Oral Pulse Rate 132 H 115 H Respiratory Rate 28 H 19 H Respiratory Effort Short of Breath Labored Accessory Muscle Use Respiratory Pattern Tachypnea Blood Pressure 200/128 H 150/100 H Blood Pressure Mean 152 116 Pulse Ox 99 94 Oxygen Delivery Method Room Air Room Air Nasal Cannula Oxygen Flow Rate (L/min) 2 06/11/24 17:02 06/11/24 17:22 06/11/24 18:00 Temperature 96.9 F L Temperature Source Temporal Pulse Rate 109 H 114 H 104 H Respiratory Rate 18 18 18 Respiratory Effort Respiratory Pattern Normal Blood Pressure 129/88 H 131/99 H Blood Pressure Mean 101 109 Pulse Ox 92 93 Oxygen Delivery Method Nasal Cannula Room Air Oxygen Flow Rate (L/min) 2 06/11/24 18:30 Temperature 98 F Temperature Source Pulse Rate 104 H Respiratory Rate 16 Respiratory Effort Respiratory Pattern Blood Pressure 124/89 H Blood Pressure Mean 100 Pulse Ox 93 Oxygen Delivery Method Oxygen Flow Rate (L/min) MDM MDM MDM Narrative Medical decision making narrative: 44-year-old male with past medical history of asthma, HTN, liver transplant presents for evaluation of asthma exacerbation. Patient arrives via EMS. He EMS gave 1 DuoNeb and Solu-Medrol prior to arrival. Patient states his symptoms have already slightly improved since receiving the DuoNeb. He was placed on 2 L nasal cannula for comfort. Not hypoxic. He is hypertensive and tachycardic. Patient has not been taking his blood pressure medication. States he has been taking his immunosuppressants. Differential diagnosis includes but is not limited to asthma exacerbation, viral illness, COVID, influenza, pneumonia. NS bolus, DuoNebs x 2 ordered. Again patient already received DuoNebs. Will get basic labs. CBC without leukocytosis or anemia. BMP relatively unremarkable. Patient has some mild hyperkalemia however this is likely secondary to hemolysis which was seen by laboratory. Chest x-ray was personally reviewed interpreted by mt, ED physician. No pneumonia, effusion, pneumothorax, or cardiomegaly. COVID, flu, RSV negative. On reevaluation patient's wheezing has improved. He is more comfortable in the room. His tachypnea has resolved. His tachycardia has improved. Suspect a mild tachycardia is likely from the albuterol. His blood pressure is improved. Patient was placed on room air without any hypoxia. He was ambulated without any hypoxia. Patient is stable to discharge home. Symptoms are likely secondary to asthma exacerbation. Despite patient being on immunosuppressants he states that he does get placed on prednisone for his asthma exacerbations. He is currently not on prednisone. Patient was given Solu-Medrol by EMS. He will be placed on a 5-day course of prednisone for home. Follow-up with PCP. Return precautions explained. He confirmed understand the plan. Patient discharged. Impression: 1. Asthma exacerbation Lab Data Labs: Laboratory Results - last 24 hr 06/11/24 16:30 WBC 8.5 RBC 5.43 Hgb 15.9 Hct 47.1 MCV 86.7 MCH 29.3 MCHC 33.8 RDW Std Deviation 39.8 RDW Coeff of [place] 13.2 Plt Count 199 MPV 9.3 Immature Gran % (Auto) 0.200 Neut % (Auto) 70.7 H Lymph % (Auto) 17.5 L [place] % (Auto) 6.8 Eos % (Auto) 4.2 Baso % (Auto) 0.6 Absolute Neuts (auto) 6.0 Absolute Lymphs (auto) 1.48 Nucleated RBC % 0 Sodium 137 Potassium 5.2 H Chloride 107 Carbon Dioxide 26.0 Anion Gap 4 L BUN 16 Creatinine 1.06 Estim Creat Clear Calc 77.36 Est GFR (MDRD) Af Amer 98 Est GFR (MDRD) Non-Af 81 BUN/Creatinine Ratio 15.1 Glucose 90 Calcium 9.0 Radiography Diagnostic Testing: Clinical Impression(s) from Imaging Studies Chest X-Ray 06/11/24 16:50 IMPRESSION: 1. No acute cardiopulmonary process. Reading Location: [facility] Discharge Plan Triage Chief Complaint: Asthma ED Provider: Douglas Cruz Dx/Rx/DC Orders Clinical Impression: Asthma exacerbation Instructions: ED Asthma, Acute (Adult) Prescriptions: New prednisone 20 mg tablet 40 mg PO DAILY 5 Days Qty: 10 0RF Discontinued prednisone 20 mg tablet 40 mg PO DAILY Qty: 14 0RF No Action amlodipine [Norvasc] 10 mg tablet 10 mg PO DAILY tacrolimus 1 mg capsule,extended release 24hr 2 mg PO BID Rx Instructions: must administer in the morning on an empty stomach, 1 hour before or 2 hours after a meal aspirin 81 mg tablet,delayed release (DR/EC) 81 mg PO DAILY pantoprazole [Protonix] [address] for susp in packet 40 mg PO DAILY mycophenolate mofetil [CellCept] 500 mg tablet 500 mg PO BID magnesium hydroxide 400 mg (170 mg magnesium) tablet,chewable 400 mg PO BID sodium bicarbonate 650 mg tablet 1,300 mg PO TID-QID PRN sulfamethoxazole-trimethoprim [Bactrim] 400-80 mg tablet 1 tab PO .COMPLEX Rx Instructions: three times a week 1 TAB orally; fluticasone propion-salmeterol 1 EACH blister with device 1 ea IH DAILY albuterol sulfate 2.5 mg /3 mL (0.083 %) solution for nebulization 2.5 mg inhalation Q4H PRN Qty: 25 0RF Rx Instructions: Use q4 hours and PRN for wheezing tacrolimus 1 mg capsule PO Primary Care Provider: Lexi Barnes Referrals: Lexi Barnes MD [Primary Care Provider] - 3-5 Days Activity Restrictions/Additional Instructions: Return back to the ED if symptoms change or worsen Print Language: Irish Disposition Disposition: Home, Self Care Discharge Date/Time: 06/11/24 18:34
[2024-06-11] MEDS: Ipratropium/Albuterol Sulfate 3 ML AMPUL.NEB 6 ML INHALATION (17:06)
[2024-06-11 17:19] LABS: Anion Gap 4 (5-15); BUN 16 mg/dL (7-18); BUN/Creat Ratio 15.1 RATIO (10-20); Chloride 107 mmol/L (98-107); Creatinine, Serum 1.06 mg/dL (0.70-1.30); EST Glomerular Filtration Rate 81 mL/min (>60); Est Glom Filt Rate - Afr Amer 98 mL/min (>60); Estimated Creatinine Clearance 77.36 ml/min; Glucose 90 mg/dL (74-106); Potassium 5.2 mmol/L (3.5-5.1); Sodium Level 137 mmol/L (136-145)
== END 2024-06-11 18:34 | disposition home or self-care (01) ==
PROVIDERS: Emergency Provider Surgery; PCP Internal Medicine; Referring Provider Surgery; Visit Provider Surgery
DX: J45.901 Unspecified asthma with (acute) exacerbation (principal); Z94.4 Liver transplant status; I10 Essential (primary) hypertension; E87.5 Hyperkalemia
CPT/HCPCS: 71046; 80048; 85025; 87631; 93005; 94640; 96360; 96361; 99285; A4216

== ENCOUNTER 2024-07-05 21:58 | Observation (INO) | payer OTHER, SELFPAY ==
[2024-07-05 21:59] VITALS: BP 164/105; PULSE 107; RESP 30; TEMP 36.9; O2SAT 92
[2024-07-05 22:12] VITALS: O2SAT 89
[2024-07-05 22:36] VITALS: PULSE 105; RESP 20
[2024-07-05] MEDS: Albuterol 2.5 MG/3 ML VIAL.NEB. INHALATION (22:36)
[2024-07-05] MEDS: Ipratropium/Albuterol Sulfate 3 ML AMPUL.NEB INHALATION (22:36)
--- NOTE | 2024-07-05 22:56 | EX.ED.DYSGE1 ---
HPI History of Present Illness Chief Complaint: Shortness of Breath Informant: patient and spouse/S.O. Narrative Narrative: Patient is a 44-year-old male with past medical history of asthma and hypertension. He states that this evening he went out to dinner with his significant other and when they were walking back from dinner he started noticing he was developing wheezing and shortness of breath. He states that prior to this evening he has felt overall normal without sick symptoms. He denies any new exposure which could have led to an asthma exacerbation. However he has been having increasing shortness of breath and wheezing which feels similar to his past episodes of asthma attacks and therefore comes in for evaluation. [facility] Medical History Cirrhosis Asthma Alcohol abuse Angioedema Home Medications ?Medication ?Instructions ?Recorded ?Last Taken ?Type fluticasone 100 mcg-salmeterol 50 1 ea IH DAILY breathing 01/04/19 Unknown History mcg/dose blistr powdr for inhalation amlodipine 10 mg tablet (Norvasc) 10 mg PO DAILY 05/20/22 Unknown History mycophenolate mofetil 500 mg 500 mg PO BID 05/20/22 Unknown History tablet (CellCept) tacrolimus 1 mg capsule,extended 2 mg PO BID 05/20/22 Unknown History release 24 hr albuterol sulfate 2.5 mg/3 mL 2.5 mg (3 mL) inhalation Q4H PRN 02/03/24 Unknown Rx (0.083 %) solution for nebulization #25 vials tacrolimus 1 mg capsule, 2 mg PO BID 02/03/24 Unknown History immediate-release Allergy/AdvReac Type Severity Reaction Status Date / Time lisinopril Allergy Angioedema Verified 07/05/24 21:59 Family History Father Alcoholism Asthma Mother Asthma Grandmother Cancer brain Surgical History Hx of liver transplant Social History household members: none current occupational status: employed 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[employer] Smoking Status: Never smoker Electronic Cigarette Use: not used alcohol intake: former details: former heavy drinker, 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 substance use type: marijuana what type of physical activity do you participate in: none do you feel safe at home: Yes ROS ROS ED Constitutional Constitutional ED: Denies chills or fever(s) Eyes Eyes: Denies blurry vision or change in vision ENT ENT ED: Denies rhinorrhea or sore throat Cardiovascular Cardiovascular: Denies chest pain Respiratory/Chest Respiratory/Chest: Reports cough and dyspnea Gastrointestinal Gastrointestinal: Denies abdominal pain, diarrhea, nausea or vomiting Genitourinary Genitourinary ED: Denies dysuria Musculoskeletal Musculoskeletal: Denies myalgias Integumentary Denies rash Neurologic Neurologic: Denies headache(s) Hematologic/Lymphatic Hematologic/Lymphatic: Denies easy bleeding or easy bruising Allergic/Immunologic Allergic/Immunologic ED: Denies mouth swelling, tongue swelling or urticaria EXAM Physical Exam Const Vital Signs: 07/05/24 21:59 07/05/24 22:12 07/05/24 22:12 Temperature 98.5 F Temperature Source Temporal Pulse Rate 107 H Respiratory Rate 30 H Respiratory Effort Labored Nasal [place] Respiratory Pattern Tachypnea Blood Pressure 164/105 H Blood Pressure Mean 124 Pulse Ox 92 89 Oxygen Delivery Method Room Air Room Air Room Air Oxygen Flow Rate (L/min) 07/05/24 22:36 07/05/24 23:00 07/06/24 00:00 Temperature Temperature Source Pulse Rate 105 H 107 H 95 Respiratory Rate 20 H 24 H Respiratory Effort Respiratory Pattern Normal Blood Pressure 138/88 H Blood Pressure Mean 104 Pulse Ox 94 92 Oxygen Delivery Method Nasal Cannula Oxygen Flow Rate (L/min) 2 07/06/24 00:25 07/06/24 01:00 07/06/24 02:00 Temperature Temperature Source Pulse Rate 89 Respiratory Rate 20 H Respiratory Effort Respiratory Pattern Normal Blood Pressure Blood Pressure Mean Pulse Ox 90 97 Oxygen Delivery Method Room Air Nasal Cannula Oxygen Flow Rate (L/min) 3 07/06/24 02:33 Temperature 98.1 F Temperature Source Pulse Rate 92 Respiratory Rate 20 H Respiratory Effort Respiratory Pattern Blood Pressure 144/101 H Blood Pressure Mean 115 Pulse Ox 97 Oxygen Delivery Method Oxygen Flow Rate (L/min) Positive well nourished and well developed Constitutional Narrative: Patient is in mild respiratory distress with tachypnea and accessory muscle use General Appearance ED: well developed; Negative for pallor HEENT Reports moist mucous membranes HEENT Narrative: No tongue or lip swelling no oral lesions no airway edema or compromise Eyes PERRL and EOMs intact bilaterally Neck supple and no JVD Chest Wall palpation of chest normal Chest Narrative: No bony deformity or subcutaneous emphysema noted Resp Resp Narrative: Patient is in respiratory distress with tachypnea and accessory muscle use Breath sounds are diminished throughout with diffuse inspiratory and expiratory wheezing Cardio regular rhythm Rate: tachycardic Extremity normal to inspection Extremity Narrative: No asymmetric edema no pitting edema negative Homans' sign bilaterally Neuro oriented x3, CN's II-XII intact bilaterally and no sensory deficits noted Sensorium / Orientation: alert Motor Exam: strength 5/5 throughout Psych mental status grossly normal Skin no rashes or lesions noted General Skin Exam: Negative for jaundice or pallor MDM MDM MDM Narrative Medical decision making narrative: Patient arrived to the ER hypertensive but has a past medical history of this. He reported increasing shortness of breath and wheeze after dinner. He has a history of asthma. He denies any recent sick symptoms going against an infectious process such as COVID influenza RSV or pneumonia. However as these are possibilities for his asthma exacerbation a chest x-ray and viral swab were obtained. As there is also potential for acute blood loss anemia or clinically significant electrolyte abnormality basic blood work was obtained. Labs revealed no clinically significant finding. After receiving 2 DuoNeb nebulizer treatments and albuterol nebulizer treatment and 125 of Solu-Medrol patient had moderate improvement of his lung sounds but work of breathing was still present. When ambulated he dropped his pulse ox to 87/88%. He does not typically require oxygen and even at rest he has continued work of breathing and borderline pulse ox. As his symptoms have recently started do not feel he is safe for discharge and will most likely need to be watched in the hospital until his steroids can take effect. The patient states that because of his asthma history this has happened in the past and he feels this is also the most appropriate plan of care. The case was discussed with the hospitalist who agrees to admit the patient for continued observation in order to ensure that his breathing improved with steroids and breathing treatments versus progresses to the need for noninvasive ventilation. History & Record Review Discussion w/independent historian: Patient and Significant other Lab Data Attestation: I reviewed the patient's lab results. Labs: Laboratory Results - last 24 hr 07/05/24 22:40 WBC 8.3 RBC 5.57 Hgb 16.4 Hct 46.9 MCV 84.2 MCH 29.4 MCHC 35.0 RDW Std Deviation 38.3 RDW Coeff of Christiano 12.6 Plt Count 219 MPV 8.8 Immature Gran % (Auto) 0.400 Neut % (Auto) 64.3 Lymph % (Auto) 19.5 [place] % (Auto) 7.6 Eos % (Auto) 7.1 H Baso % (Auto) 1.1 H Absolute Neuts (auto) 5.3 Absolute Lymphs (auto) 1.62 Nucleated RBC % 0 Sodium 139 Potassium 3.8 Chloride 103 Carbon Dioxide 21.0 Anion Gap 15 BUN 18 Creatinine 1.00 Est GFR (MDRD) Non-Af 95 BUN/Creatinine Ratio 17.7 Glucose 102 H Calcium 9.6 Magnesium 1.7 Radiography Diagnostic Testing: Clinical Impression(s) from Imaging Studies Chest X-Ray 07/05/24 23:25 IMPRESSION: No acute cardiopulmonary process. Reading [facility] Chest x-ray as interpreted by the emergency medicine physician reveals no acute infiltrate pneumothorax or pleural effusion Discharge Plan Dx/Rx/DC Orders Clinical Impression: Asthma exacerbation, Essential hypertension, History of alcohol abuse, Liver transplant recipient Disposition Disposition: Acute Care [facility]
[2024-07-05 22:57] LABS: Absolute Lymphocyte Count 1.62 X10^3/uL (0.83-4.51); Absolute Neutrophil Count 5.3 X10^3/uL (2.0-7.7); Basophil# 0.09 X10^3/uL; Basophil% 1.1 % (0-1); Eosinophil# 0.59 X10^3/uL; Eosinophils% 7.1 % (0-5); Hematocrit 46.9 % (40-54); Hemoglobin 16.4 g/dL (13.0-16.5); Lymphocyte # 1.62 X10^3/ul (0.83-4.51); Lymphocyte % 19.5 % (19-41); Mean Corpuscular Hgb 29.4 pg (27.0-32.0); Mean Corpuscular Volume 84.2 fL (80-94); Mean Platelet Vol. 8.8 fl (6.2-12.0); Monocyte# 0.63 X10^3/uL; Monocyte% 7.6 % (0-10); NRBC Flagged by Analyzer 0 % (0-5); Neutrophil # 5.33 X10^3/uL (2.7-7.7); Neutrophil % 64.3 % (47-70); Platelet Count 219 K/mm3 (150-450); RBC Distribution Width CV 12.6 % (11.6-14.6); RBC Distribution Width SD 38.3 fl (35.1-43.9); Red Blood Count 5.57 M/mm3 (4.6-6.2); White Blood Count 8.3 K/mm3 (4.4-11.0)
[2024-07-05 23:00] VITALS: BP 138/88; PULSE 107; O2SAT 94
--- NOTE | 2024-07-05 23:02 | CPS ---
[2236] x1 Albuterol given to pt. in ER
[2024-07-05] MEDS: MethylPREDNISolone 125 MG/2 ML Vial IV (23:07)
--- NOTE | 2024-07-05 23:25 | RAD_ITS ---
PROCEDURE: CHEST PA AND LATERAL REASON FOR EXAM: DYSPNEA TECHNIQUE: Frontal and lateral views of the chest. COMPARISON: 06/11/2024 FINDINGS: The cardiothymic contour is normal. The lungs are clear. The bones are unremarkable. RAD/Chest PA and Lateral IMPRESSION: No acute cardiopulmonary process. Reading Location: [facility]
[2024-07-05 23:27] LABS: Magnesium 1.7 mg/dL (1.5-2.2)
[2024-07-05 23:41] LABS: Anion Gap 15 (5-15); BUN 18 mg/dL (4-19); BUN/Creat Ratio 17.7 RATIO (10-20); Calcium,Total 9.6 mg/dL (7.6-11.0); Chloride 103 mmol/L (98-108); EST Glomerular Filtration Rate 95 (>60); Glucose 102 mg/dL (70-99); Potassium 3.8 mmol/L (3.3-5.1); Sodium Level 139 mmol/L (133-145)
[2024-07-06] VITALS (15 sets, daily range): BP systolic 144–151; BP diastolic 90–105; PULSE 80–107; RESP 16–24; TEMP 36.6–36.7; O2SAT 89–98; BMI 26.2; BMI 26.1
[2024-07-06] MEDS: Ipratropium/Albuterol Sulfate 3 ML AMPUL.NEB INHALATION (00:25)
--- NOTE | 2024-07-06 02:18 | HP.PCM.HOS_ITS ---
[facility] - General General Date of Admission: 07/06/24 Date of Service: 07/06/24 Chief Complaint: SOB and Wheezing. HPI Narrative DANNY BEDOYA, is a 44 M with a past medical history of essential hypertension; on amlodipine, history of EtOH Abuse (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); with cirrhosis, history of liver transplant; on mycophenolate mofetil BID, tacrolimus BID and TMP-SMX, history of cannabis abuse, GERD; on pantoprazole, history of asthma; on prednisone taper listed allergy to lisinopril (angioedema), who presents to [facility] ER complaining of shortness of breath and wheezing. Mr. Bedoya reports his symptoms began on the evening of July 05, 2024 after going out to dinner with his significant other when they were walking back from dinner he noted the abrupt-onset of shortness of breath and wheezing. He states that he had been feeling fine prior to this evening without viral type illness or congestion. He denies recent sick contacts or known toxic exposures that could have triggered his asthma exacerbation. He states his symptoms are nearly identical to his previous acute asthma exacerbations. He admits to nonproductive cough but he denies associated fever, chills, changes in vision, runny nose, sore throat, chest pain, abdominal pain, nausea, vomiting, diarrhea, constipation, dysuria, myalgias or headache. In the ER he was diagnosed with AE Asthma complicated by clinical evidence of respiratory insufficiency patient requiring initiation of 2L NC and he was then admitted to the general medical floor for ongoing care for stay that is expected to extend beyond 2 midnights. [facility] Medical History Cirrhosis Asthma Alcohol abuse Angioedema Home Medications ?Medication ?Instructions ?Recorded ?Last Taken ?Type fluticasone 100 mcg-salmeterol 50 1 ea IH DAILY breath ing 01/04/19 Unknown History mcg/dose blistr powdr for inhalation amlodipine 10 mg tablet (Norvasc) 10 mg PO DAILY 05/20 Unknown History mycophenolate mofetil 500 mg 500 mg PO BID 05/20/22 Un known History tablet (CellCept) tacrolimus 1 mg capsule,extended 2 mg PO BID 05/20/22 Unknown History release 24 hr albuterol sulfate 2.5 mg/3 mL 2.5 mg (3 mL) inhalation Q4H PRN 02/03/24 Unknown Rx (0.083 %) solution for nebulization #25 vials tacrolimus 1 mg capsule, 2 mg PO BID 02/03/24 Unknown History immediate-release Allergy/AdvReac Type Severity Reaction Status Date / Time lisinopril Allergy Angioedema Verified 07/05/24 21:59 Family History Father Alcoholism Asthma Mother Asthma Grandmother Cancer brain Surgical History Hx of liver transplant Social History household members: none current occupational status: employed 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 Eyes: Patient denies changes in vision or discharge from eyes. ENT: Patient denies runny nose, sore throat or ear pain. Resp: Patient admits to shortness of breath at rest with wheezing and nonproductive cough as per HPI. CV: Patient denies chest pain, palpitations, heart racing or lower extremity edema. GI: Patient denies abdominal pain, nausea, vomiting, diarrhea or constipation. : Patient denies dysuria or hematuria. MSK: Patient denies arthralgias or myalgias. Skin: Patient denies rash, abscess, wounds or jaundice. Psych: Patient denies symptoms of uncontrolled depression or anxiety. Neuro: Patient denies headache, paresthesias or focal neurologic deficits. Allergy: Patient denies lip swelling, tongue swelling or urticaria. Hematology: Patient denies easy bleeding or easy bruisability. Endocrinology: Patient denies polyuria, polydipsia or polyphagia. 14 point ROS was otherwise negative except for positives in HPI. Vital Signs Vital Signs Vital Signs: 07/05/24 21:59 07/05/24 22:12 07/05/24 22:12 Temperature 98.5 F Temperature Source Temporal Pulse Rate 107 H Respiratory Rate 30 H Respiratory Effort Labored Nasal [place] Respiratory Pattern Tachypnea Blood Pressure 164/105 H Blood Pressure Mean 124 Pulse Ox 92 89 Oxygen Delivery Method Room Air Room Air Room Air Oxygen Flow Rate (L/min) 07/05/24 22:36 07/05/24 23:00 07/06/24 00:00 Temperature Temperature Source Pulse Rate 105 H 107 H 95 Respiratory Rate 20 H 24 H Respiratory Effort Respiratory Pattern Normal Blood Pressure 138/88 H Blood Pressure Mean 104 Pulse Ox 94 92 Oxygen Delivery Method Nasal Cannula Oxygen Flow Rate (L/min) 2 07/06/24 00:25 07/06/24 01:00 Temperature Temperature Source Pulse Rate 89 Respiratory Rate 20 H Respiratory Effort Respiratory Pattern Normal Blood Pressure Blood Pressure Mean Pulse Ox 90 Oxygen Delivery Method Room Air Oxygen Flow Rate (L/min) Physical Exam Const alert, oriented x3 and average body habitus Constitutional Narrative: Moderately labored respirations noted. General Appearance: cooperative HEENT normocephalic, head/scalp atraumatic, hearing grossly normal bilaterally and moist oral mucous membranes Eyes PERRL, EOMs intact bilaterally and conjunctivae normal Neck no lymphadenopathy, supple and no JVD Resp Resp Narrative: Diminished breath sounds throughout with diffuse mild inspiratory and expiratory wheezing noted - with patient stating he felt markedly improved from earlier after Solu-Medrol and breathing treatments. Auscultation: wheezes Cardio regular rate and regular rhythm GI normal to inspection, nondistended, normoactive bowel sounds, soft to palpation, non-tender and non-distended Extremity normal to inspection, full ROM and no clubbing, cyanosis or edema Skin Skin Narrative: Patient has no evidence of rash, abscess, wounds or jaundice. Neuro oriented x3, CN's II-XII intact bilaterally, moves all extremities and no focal motor deficits Sensorium / Orientation: awake, alert, oriented to person, oriented to place and oriented to time Speech: speech normal Psych affect normal Results Medical Records Data Attestation: I reviewed the patient's medical records Lab / Micro Data Attestation: I reviewed the patient's lab results. 07/05/24 22:40 07/05/24 22:40 Labs: Laboratory Results - last 24 hr 07/05/24 22:40: WBC 8.3, RBC 5.57, Hgb 16.4, Hct 46.9, MCV 84.2, MCH 29.4, MCHC 35.0, RDW Std Deviation 38.3, RDW Coeff of Christiano 12.6, Plt Count 219, MPV 8.8, Immature Gran % (Auto) 0.400, Neut % (Auto) 64.3, Lymph % (Auto) 19.5, [place] % (Auto) 7.6, Eos % (Auto) 7.1 H, Baso % (Auto) 1.1 H, Absolute Neuts (auto) 5.3, Absolute Lymphs (auto) 1.62, Nucleated RBC % 0, Sodium 139, Potassium 3.8, Chloride 103, Carbon Dioxide 21.0, Anion Gap 15, BUN 18, Creatinine 1.00, Est GFR (MDRD) Non-Af 95, BUN/Creatinine Ratio 17.7, Glucose 102 H, Calcium 9.6, Magnesium 1.7 Micro: Microbiology 07/05/24 22:40 Mucosa - Nose SARS-CoV-2, Influenza & RSV (PCR) - Final ABG Data ABG results: RUN DATE: 07/06/24 [facility], DEPARTMENT OF LABORATORIES PAGE 1 RUN TIME: 555 Specimen Inquiry [facility] [place], [address] PATIENT: DANNY BEDOYA LOC: [facility] U #: [id number] : 1980 AGE/SX: 44/M FACILITY: [facility] ROOM: [address] E07/06/[address]: Anita Mccarthy STATUS:ADM IN ED: 1 DIS: ~ SPEC #: [id number] MARIVEL: 07/06/24 STATUS: COMP REQ #: [id number] RECD: 07/06/[address]: Dr. Sabino Jain, DO ENTERED: 07/06/[address]: Dr. Lexi Barnes MD ~ Test Result Flag Reference Range VIBG Blood Gas Type DARON SITE Not entered O2 Delivery Dev Cannula FI02 2.0 VBG pH 7.42 7.32-7.42 VBG pCO2 36.2 L 41-51 mmHg VBG PO2 67 H 25-40 mmHg VBG HCO3 23 22-26 mmol/L VBG BE -1 -1.0-3.5 mmol/L VBG SO2 93 H 50-70 % VBG TCO2 24 23-33 mmol/L END OF REPORT Imaging Radiology Impression Chest X-Ray 07/05/24 23:25 IMPRESSION: No acute cardiopulmonary process. Reading Location: [facility] Assessment & Plan Assessment/Plan (1) Asthma exacerbation: QUALIFIERS: Asthma persistence: persistent Asthma severity: s evere Qualified Code(s): J45.51 - Severe persistent asthma with (acute) exacerbation (2) Respiratory insufficiency: (3) History of alcohol abuse: (4) Cirrhosis: QUALIFIERS: Ascites presence: without ascites Hepatic cirrhosis type: alcoholic cirrhosis Qualified Code(s): K70.30 - Alcoholic cirrhosis of liver without ascites (5) History of liver transplant: (6) Essential hypertension: PLAN: Plan 1. AE Asthma - Admit to general medical floor. Continue IV Solu-Medrol begun in ER plus scheduled and as needed nebulizers. Check VBG to establish baseline. 2. Respiratory insufficiency due to #1 - Wean supplemental oxygen as tolerated. 3. 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 4. Essential Hypertension; on amlodipine - Continue amlodipine as previous plus give prn hydralazine IV prn for systolic blood pressure > 160 mmHg. 5. History of cannabis abuse - Cannabis Cessation will be strongly encouraged. 6. GERD; on pantoprazole - Resume PPI. 7. History of asthma; on prednisone taper - Noted. 8. Listed allergy to lisinopril (angioedema) - Noted. We will avoid LILLIE- inhibitors and ARB's to minimize risk of recurrent. 9. DVT prophylaxis - Lovenox 40 mg subcu daily. Total time: Approximately (but not less than) 55 minutes. Charges/Coding Visit Charges Inpatient E&M: 73238 Init Hosp L2
[2024-07-06 03:49] LABS: Blood Gas Specimen Type VEN; O2 Delivery Device Cannula; SITE Not entered; VBG BASE EXCESS -1 mmol/L (-1.0-3.5); VBG Bicarbonate 23 mmol/L (22-26); VBG PO2 67 mmHg (25-40); VBG SO2 93 % (50-70); VBG TCO2 24 mmol/L (23-33); VBG pCO2 36.2 mmHg (41-51); VBG pH 7.42 (7.32-7.42)
[2024-07-06] MEDS: 0.9% Normal Saline (1000mL) 1,000 ML 100 ML IV (04:14)
[2024-07-06] MEDS: CLARIFY ORDER 1 EACH NOTE (04:33)
[2024-07-06 06:53] LABS: Absolute Lymphocyte Count 0.51 X10^3/uL (0.83-4.51); Absolute Neutrophil Count 4.9 X10^3/uL (2.0-7.7); Basophil# 0.01 X10^3/uL; Basophil% 0.2 % (0-1); Eosinophil# 0.01 X10^3/uL; Eosinophils% 0.2 % (0-5); Hematocrit 46.1 % (40-54); Hemoglobin 15.9 g/dL (13.0-16.5); Lymphocyte # 0.51 X10^3/ul (0.83-4.51); Lymphocyte % 9.2 % (19-41); Mean Corp Hgb Conc 34.5 g/dL (32-36); Mean Corpuscular Hgb 29.2 pg (27.0-32.0); Mean Corpuscular Volume 84.6 fL (80-94); Mean Platelet Vol. 9.1 fl (6.2-12.0); Monocyte# 0.06 X10^3/uL; Monocyte% 1.1 % (0-10); NRBC Flagged by Analyzer 0 % (0-5); Neutrophil # 4.92 X10^3/uL (2.7-7.7); Neutrophil % 88.8 % (47-70); POSITIVE DIFFERENTIAL YES; Platelet Count 203 K/mm3 (150-450); RBC Distribution Width CV 12.6 % (11.6-14.6); RBC Distribution Width SD 38.1 fl (35.1-43.9); Red Blood Count 5.45 M/mm3 (4.6-6.2); White Blood Count 5.5 K/mm3 (4.4-11.0)
[2024-07-06 06:59] LABS: International Normalized Ratio 1.1; Prothrombin Time (Protime)PT. 14.3 SECONDS (11.7-14.9)
[2024-07-06] MEDS: Albuterol 2.5 MG/3 ML VIAL.NEB. INHALATION ×2 (07:52→13:35)
[2024-07-06 08:16] LABS: Phosphorus 2.3 mg/dL (2.7-4.5)
[2024-07-06 08:21] LABS: ALB/GLOB Ratio 1.5 RATIO (0.9-2.4); AST(SGOT) 28 U/L (<=37); Alanine Aminotransfer ALT/SGPT 23 U/L (<=46); Albumin, Serum 4.6 g/dL (3.5-5.0); Alkaline Phosphatase 81 U/L (40-129); Anion Gap 16 (5-15); BUN 18 mg/dL (4-19); BUN/Creat Ratio 18.2 RATIO (10-20); Calcium,Total 9.5 mg/dL (7.6-11.0); Carbon Dioxide 17.9 mmol/L (21.0-32.0); Chloride 103 mmol/L (98-108); Creatinine, Serum 1.01 mg/dL (0.70-1.20); EST Glomerular Filtration Rate 94 (>60); Estimated Creatinine Clearance 78.15 ml/min (50-250); Glucose 169 mg/dL (70-99); Protein, Total 7.6 g/dL (5.9-8.4); Sodium Level 136 mmol/L (133-145); Total Bilirubin 1.28 mg/dL (0.00-1.30)
--- NOTE | 2024-07-06 08:25 | PCM.PN.HOSP ---
Reason for Visit Reason for Visit: Diagnoses Alcohol abuse, in remission (07/06/24) Essential (primary) hypertension (07/06/24) Severe persistent asthma with (acute) exacerbation (07/06/24) Alcoholic cirrhosis of liver without ascites (07/06/24) Other abnormalities of breathing (07/06/24) Liver transplant status (07/06/24) Subjective Subjective Breathing much better. Objective Data Objective Data Vital Signs: Vital Signs Temp Pulse Resp BP Pulse Ox O2 Del Method O2 Flow Rate 36.6 C 80 16 151/90 H 95 Nasal Cannula 3 07/06/24 04:21 07/06/24 04:21 07/06/24 04:21 07/06/24 04:21 07/06/24 04:29 07/06/24 04:29 07/06/24 04:29 Oxygen Flow Rate (L/min) 3 Oxygen Delivery Method Nasal Cannula Weight: 69.4 kg Body Mass Index (BMI) 26.1 Intake & Output: Intake and Output for Last 24 Hours 07/05/24 07/05/24 07/06/24 00:59 23:59 23:59 Intake Total 300 / 300 Balance 300 / 300 Lab / Micro Data 07/06/24 06:16 07/06/24 06:16 Labs: Laboratory Results - last 24 hr 07/05/24 22:40: WBC 8.3, RBC 5.57, Hgb 16.4, Hct 46.9, MCV 84.2, MCH 29.4, MCHC 35.0, RDW Std Deviation 38.3, RDW Coeff of Christiano 12.6, Plt Count 219, MPV 8.8, Immature Gran % (Auto) 0.400, Neut % (Auto) 64.3, Lymph % (Auto) 19.5, [place] % (Auto) 7.6, Eos % (Auto) 7.1 H, Baso % (Auto) 1.1 H, Absolute Neuts (auto) 5.3, Absolute Lymphs (auto) 1.62, Nucleated RBC % 0, Sodium 139, Potassium 3.8, Chloride 103, Carbon Dioxide 21.0, Anion Gap 15, BUN 18, Creatinine 1.00, Est GFR (MDRD) Non-Af 95, BUN/Creatinine Ratio 17.7, Glucose 102 H, Calcium 9.6, Magnesium 1.7, TSH 2.050 07/06/24 06:16: WBC 5.5, RBC 5.45, Hgb 15.9, Hct 46.1, MCV 84.6, MCH 29.2, MCHC 34.5, RDW Std Deviation 38.1, RDW Coeff of Christiano 12.6, Plt Count 203, MPV 9.1, Immature Gran % (Auto) 0.500, Neut % (Auto) 88.8 H, Lymph % (Auto) 9.2 L, [place] % (Auto) 1.1, Eos % (Auto) 0.2, Baso % (Auto) 0.2, Absolute Neuts (auto) 4.9, Absolute Lymphs (auto) 0.51 L, Nucleated RBC % 0, PT 14.3, INR 1.1, Sodium 136, Potassium 4.0, Chloride 103, Carbon Dioxide 17.9 L, Anion Gap 16 H, BUN 18, Creatinine 1.01, Estim Creat Clear Calc 78.15, Est GFR (MDRD) Non-Af 94, BUN/Creatinine Ratio 18.2, Glucose 169 H, Calcium 9.5, Phosphorus 2.3 L, Total Bilirubin 1.28, AST 28, ALT 23, Alkaline Phosphatase 81, Total Protein 7.6, Albumin 4.6, Globulin 3.0, Albumin/Globulin Ratio 1.5 Micro: Microbiology 07/05/24 22:40 Mucosa - Nose SARS-CoV-2, Influenza & RSV (PCR) - Final ABG Data ABG results: ABG 07/06/24 03:47 Specimen Type DARON Sample Site Not entered O2 % 2.0 VBG pH 7.42 VBG pO2 67 H VBG HCO3 23 VBG Total CO2 24 VBG O2 Sat (Calc) 93 H VBG Base Excess -1 POC Mix VBG pCO2 Pt Tmp 36.2 L O2 Delivery Device Cannula Radiography Diagnostic Testing: Radiology Impression Chest X-Ray 07/05/24 23:25 IMPRESSION: No acute cardiopulmonary process. Reading Location: [facility] Physical Exam Const alert and no apparent distress HEENT head/scalp atraumatic and moist oral mucous membranes Resp normal respiratory effort and no retractions Resp Narrative: bilateral inspiratory and expiratory wheeze. Cardio regular rate and regular rhythm Assessment & Plan Assessment/Plan (1) Asthma exacerbation: QUALIFIERS: Asthma persistence: persistent Asthma severity: severe Qualified Code(s): J45.51 - Severe persistent asthma with (acute) exacerbation PLAN: No pneumonia on CXR. COVID-19/influenza/RSV negative. continue BDs and methylprednisolone recommend outpt pulmonary follow up. Flattening of diaphragms concerning for underlying COPD. Pt states that he has been previously evaluated with PFTs that confirmed asthma. He has aerosols at home and does not need refilled. Will discharge with 5-day prednisone burst. PLAN: Plan Liver x-plant: tacrolimus, mycophenolate HTN: amlodipine VTE prophylaxis: LMWH.
[2024-07-06] MEDS: Mycophenolate Mofetil 250 MG Capsule 500 MG PO (10:25)
[2024-07-06] MEDS: FLU VACC 2024-25(6MOS UP)/PF 45 MCG/0.5 ML SYRINGE IM (10:26)
[2024-07-06] MEDS: Enoxaparin 40 MG/0.4 ML Syringe SC (10:27)
[2024-07-06] MEDS: amLODIPine 10 MG Tablet PO (10:28)
--- NOTE | 2024-07-06 10:45 | CASEMGMT ---
RN CM Face to Face with patient for initial transition planning/care coordination assessment. RN CM introduced self and role at [facility]. Patient lying in bed, alert and oriented. Patient willing to participate in assessment and is able to answer all questions appropriately. Care providers, pharmacy, and demographics verified. Strata: 2 PCP: Molly Specialists: none Preferred Pharmacy: [facility] Insurance: [employer] Prescription Benefit: yes Living Will/HPOA: none LNOK: mother, father Living Arrangements: Patient lives with girlfriend in a 2nd floor apartment. Patient is independent and able to ambulate stairs. Transportation: Father, public DME/HHC: Patient has shower chair, nebulizer. Patient has had HHC in the past. No previous SNF Patient wishes to discharge home, denies need for home health at this time. Patient states he has no further needs or concerns at this time. CM to follow for discharge planning needs that may arise. Disposition Plan: Patient to discharge home with family support and follow-up plans in place. Gabrielle HOLLOWAY, RN, CM
[2024-07-06] MEDS: Tacrolimus Anhydrous 1 MG Capsule 2 MG PO (10:56)
--- NOTE | 2024-07-06 11:13 | PCM.DC.SUM ---
Providers Date of Admission: 07/06/24 Primary Care Physician: Dr. Lexi Barnes MD Reason For Visit: AE ASTHMA, RESPIRATORY INSUFFICIENCY & Diagnosis Discharge Diagnosis (1) Asthma exacerbation: Status: Acute Code(s): J45.901 - Unspecified asthma with (acute) exacerbation Qualifiers: Asthma severity: severe Asthma persistence: persistent Qualified Code(s): J45.51 - Severe persistent asthma with (acute) exacerbation Plan: No pneumonia on CXR. COVID-19/influenza/RSV negative. continue BDs and methylprednisolone recommend outpt pulmonary follow up. Flattening of diaphragms concerning for underlying COPD. Pt states that he has been previously evaluated with PFTs that confirmed asthma. He has aerosols at home and does not need refilled. Will discharge with 5-day prednisone burst. Plan Liver x-plant: tacrolimus, mycophenolate HTN: amlodipine VTE prophylaxis: LMWH. Medications at Discharge Home Medications fluticasone 100 mcg-salmeterol 50 mcg/dose blistr powdr for inhalation 1 ea IH DAILY breathing 01/04/19 amlodipine 10 mg tablet (Norvasc) 10 mg PO DAILY 05/20/22 mycophenolate mofetil 500 mg tablet (CellCept) 500 mg PO BID 05/20/22 tacrolimus 1 mg capsule,extended release 24 hr 2 mg PO BID liver 05/20/22 albuterol sulfate 2.5 mg/3 mL (0.083 %) solution for nebulization 2.5 mg (3 mL) inhalation Q4H PRN #25 vials 02/03/24 tacrolimus 1 mg capsule, immediate-release 2 mg PO BID 02/03/24 prednisone 20 mg tablet 40 mg (2 x 20 mg) PO DAILY #10 tabs 07/06/24 Hospital Course Operations None Procedures None Summary of Care Provided Hospital Course: Patient presents with acute exacerbation of asthma. Patient started bronchodilators and methylprednisolone. Patient is doing well. Patient and ambulatory pulse ox and patient remained 92%. Overall, he is feeling better. Patient be discharged home with prednisone burst. Patient has aerosols as well as other MDIs at home. Patient improved much faster than initially anticipated. Weight / BMI Weight Weight: 69.4 kg Body Mass Index (BMI) 26.1 ABG / Lab / Microbiology Data 07/06/24 06:16 07/06/24 06:16 Laboratory: Laboratory Results - last 24 hr 07/05/24 22:40: WBC 8.3, RBC 5.57, Hgb 16.4, Hct 46.9, MCV 84.2, MCH 29.4, MCHC 35.0, RDW Std Deviation 38.3, RDW Coeff of Christiano 12.6, Plt Count 219, MPV 8.8, Immature Gran % (Auto) 0.400, Neut % (Auto) 64.3, Lymph % (Auto) 19.5, Tate % (Auto) 7.6, Eos % (Auto) 7.1 H, Baso % (Auto) 1.1 H, Absolute Neuts (auto) 5.3, Absolute Lymphs (auto) 1.62, Nucleated RBC % 0, Sodium 139, Potassium 3.8, Chloride 103, Carbon Dioxide 21.0, Anion Gap 15, BUN 18, Creatinine 1.00, Est GFR (MDRD) Non-Af 95, BUN/Creatinine Ratio 17.7, Glucose 102 H, Calcium 9.6, Magnesium 1.7, TSH 2.050 07/06/24 06:16: WBC 5.5, RBC 5.45, Hgb 15.9, Hct 46.1, MCV 84.6, MCH 29.2, MCHC 34.5, RDW Std Deviation 38.1, RDW Coeff of Christiano 12.6, Plt Count 203, MPV 9.1, Immature Gran % (Auto) 0.500, Neut % (Auto) 88.8 H, Lymph % (Auto) 9.2 L, Tate % (Auto) 1.1, Eos % (Auto) 0.2, Baso % (Auto) 0.2, Absolute Neuts (auto) 4.9, Absolute Lymphs (auto) 0.51 L, Nucleated RBC % 0, PT 14.3, INR 1.1, Sodium 136, Potassium 4.0, Chloride 103, Carbon Dioxide 17.9 L, Anion Gap 16 H, BUN 18, Creatinine 1.01, Estim Creat Clear Calc 78.15, Est GFR (MDRD) Non-Af 94, BUN/Creatinine Ratio 18.2, Glucose 169 H, Calcium 9.5, Phosphorus 2.3 L, Total Bilirubin 1.28, AST 28, ALT 23, Alkaline Phosphatase 81, Total Protein 7.6, Albumin 4.6, Globulin 3.0, Albumin/Globulin Ratio 1.5 Microbiology: Microbiology 07/05/24 22:40 Mucosa - Nose SARS-CoV-2, Influenza & RSV (PCR) - Final ABG: ABG 07/06/24 03:47 Specimen Type DARON Sample Site Not entered O2 % 2.0 VBG pH 7.42 VBG pO2 67 H VBG HCO3 23 VBG Total CO2 24 VBG O2 Sat (Calc) 93 H VBG Base Excess -1 POC Mix VBG pCO2 Pt Tmp 36.2 L O2 Delivery Device Cannula Radiography Diagnostic Testing: Radiology Impression Chest X-Ray 07/05/24 23:25 IMPRESSION: No acute cardiopulmonary process. [facility] Instructions Discharge Diet: No restrictions DC O2, CPAP, BIPAP Needs Home O2 Discharge instructions: No Meaningful Use Info Meaningful Use Meaningful Use Diagnoses (Choose all that apply): None applicable Ischemic Stroke Statin Dosing Therapy Reference: STATIN DOSE THERAPY REFERENCE: * Patients > 75 years receive moderate or high dose statin therapy. * Patients 75 years or YOUNGER should receive HIGH intensity statin dose unless contraindicated. You will be required to document reason for non-treatment if statin daily dose does not meet guidelines. HIGH DOSE STATIN THERAPY DAILY Atorvastatin > than or = to 40 mg Rosuvastatin > than or = to 20 mg Amlodipine + Atorvastatin > than or = to 2.5/40 mg Ezetimibe + Simvastatin 10/80 mg Simvastatin 80mg Discharge Plan Admission Admit Date/Time: 07/06/24 02:36 Primary Reason for Your Visit: Acute asthma exacerbation Attending Provider: Jeevan Dasilva Primary Care Provider: Lexi Barnes Consulting Providers: Sabino Jain Discharge Orders/Prescriptions Prescriptions: New prednisone 20 mg tablet 40 mg PO DAILY Qty: 10 0RF Continued amlodipine [Norvasc] 10 mg tablet 10 mg PO DAILY tacrolimus 1 mg capsule,extended release 24hr 2 mg PO BID Rx Instructions: must administer in the morning on an empty stomach, 1 hour before or 2 hours after a meal mycophenolate mofetil [CellCept] 500 mg tablet 500 mg PO BID fluticasone propion-salmeterol 1 EACH blister with device 1 ea IH DAILY albuterol sulfate 2.5 mg /3 mL (0.083 %) solution for nebulization 2.5 mg inhalation Q4H PRN Qty: 25 0RF Rx Instructions: Use q4 hours and PRN for wheezing tacrolimus 1 mg capsule 2 mg PO BID Referrals / Follow Up: Lexi Barnes MD [Primary Care Provider] - Charges/Coding Visit Charges OBSV E&M: 76612 Observ/hosp same date L2 (greater than 30 )
[2024-07-06] MEDS: Methylprednisolone Sod Succ 40 MG/ML VIAL IV (14:07)
[2024-07-06] MEDS: 0.9% Saline Lock 10 ML Syringe IV (14:13)
--- NOTE | 2024-07-06 14:39 | CASEMGMT ---
Pt does not qualify for home oxygen.
--- NOTE | 2024-07-06 15:34 | PHA.DC_ITS ---
Pharmacy [facility] has performed discharge medication reconciliation and counseling for this patient. The patient's discharge medication list was reviewed for discrepancies and discrepancies were resolved. The patient was counseled on the following discharge medications and changes in medications for homegoing were reviewed. The Reason for Use, instructions for use, and potential side effects were reviewed for all new medications. The patient's questions regarding all of their medications were answered. 1. Prednisone 40 mg daily x 5 days The patient was able to verbally demonstrate an understanding of their discharge medications. Medications at Discharge Home Medications fluticasone 100 mcg-salmeterol 50 mcg/dose blistr powdr for inhalation 1 ea IH DAILY breathing 01/04/19 amlodipine 10 mg tablet (Norvasc) 10 mg PO DAILY 05/20/22 mycophenolate mofetil 500 mg tablet (CellCept) 500 mg PO BID 05/20/22 tacrolimus 1 mg capsule,extended release 24 hr 2 mg PO BID liver 05/20/22 albuterol sulfate 2.5 mg/3 mL (0.083 %) solution for nebulization 2.5 mg (3 mL) inhalation Q4H PRN #25 vials 02/03/24 tacrolimus 1 mg capsule, immediate-release 2 mg PO BID 02/03/24 prednisone 20 mg tablet 40 mg (2 x 20 mg) PO DAILY #10 tabs 07/06/24
--- OUTSIDE RECORDS SUMMARY | 2024-10-22 18:56 | XMS RPT_ITS | CCD ---
Author Organization [facility] [employer] Care Team Providers Care [employer] Name Role Phone Care Physician, No Primary [...] CUEVAS Attending Provider LAUREN CUEVAS Referring Provider [phone] Douglas Cruz DO Attending Provider Dr. Douglas Cruz DO Referring Provider Dr. Douglas Cruz DO Emergency Provider Dr. Jam Jiang DO Emergency Provider Dr. Lisa Jain DO Admit Provider Unavail able Dr. Lisa Jain DO Attending Provider Zeniav ailDr. Lisa Sexton DO Other Provider Unavail able Dr. Natalie Dasilva DO Attending Provider Dr. Natalie Jeffery DO Emergency Provider Jain DO, Dr. Gallo Attending Provider Unav ailable Addy JIANG, Dr. Andrea Kunz Attending Provider Dr. Andrea Daly MD Other Provider Molly JIANG Dr. Lexi Primary Care Provider [phone] Darrian JIANG, Dr. Russell Emergency Provider Luis TAVAREZ, Dr. Eaton Admit Provider Luis TAVAREZ, Dr. Eaton Attending Provider [phone] Luis TAVAREZ, Dr. Eaton Other Provider [phone] Lavern TAVAREZ, Dr. Dsouza Attending Provider KlustLawson Douglas Referring Unavailabl e Klmirela-Douglas Todd Attending Unavailabl e Molly, Lexi Primary Care Unavailable Molly, Lexi Primary Care Unavailable Kirit Moreira Attending Unavailable de BimalLisa hu Consulting Unavailable Natalie Dasilva Attending Unavailable [place], Lexi Primary Care Unavailable de BimalLisa Admitting Unavailable de BimalLisa hu Admitting Unavailable de BimalLisa hu Consulting Unavailable Andrea Daly Attending Unavailable Molly, Lexi Primary Care Unavailable [place], Lexi Primary Care Unavailable Meet Puckett Referring Unavailable Meet Puckett Attending Unavailable Uma Smith Consulting Unavailable Uma Smith Admitting Unavailable [place], Lexi Primary Care Unavailable BACK, DOUGLAS Referring Unavailable BACK, DOUGLAS Attending Unavailable BACK, DOUGLAS Consulting Unavailable Molly, Lexi Primary Care Unavailable BACK, DOUGLAS Referring Unavailable BACK, DOUGLAS Attending Unavailable BACK, DOUGLAS Consulting Unavailable de BimalLisa moran Admitting Unavailable de BimalLisa moran Attending Unavailable de BimalLisa hu Consulting Unavailable Molly, Lexi Primary Care Unavailable de BimalLisa Admitting Unavailable de BimalLisa Attending Unavailable de BimalLisa moran Consulting Unavailable [place], Lexi Primary Care Unavailable Andrea Daly Consulting Unavailable Andrea Daly Attending Unavailable Molly, Lexi Primary Care Unavailable Neo Smithyn Admitting Unavailable Uma Smith Attending Unavailable Uma Smith Consulting Unavailable [place], Lexi Primary Care Unavailable Uma Smith Admitting Unavailable Meet Puckett Attending Unavailable Uma Smith Consulting Unavailable Meet Puckett Consulting Unavailable Allergies Allergy Classification Reported Allergen(s) Allergy Type Date of Onset Reaction(s) Facility (14 sources) Lisinopril; Translations: [LISINOPRIL] Drug Allergy 1 Swelling [facility] (1 source) Environmental allergies [Other] Propensity to adverse reactions 9 [facility] (2 sources) OTHER; Translations: [OTHER] Propensity to adverse reactions (disorder) 9 [facility] Repository (1 source) Lisinopril Drug Allergy 5 [facility] Repository Medications Current Medications Medication Drug [...] 2 PUFF INHALATION EVERY 4 HOURS NEEDED 1 December 24, 2014 8:59am January 19, 2017 10:26am fluticasone propionate 0.05 mg/actuat metered dose nasal spray (1 source) Corticosteroid Start: 11-07-2016 take 2 spray(s) by mouth once daily fluticasone (FLONASE) 50 mcg/actuation nasal spray Indications: Acute seasonal allergic rhinitis, unspecified trigger Use 2 Sprays in each nostril once daily. Rinse mouth after use. 1 Bottle 11 11/07/2016 Active Fluticasone Propion-Salmetero l (20 sources) Corticosteroid, beta2-Adrenergic Agonist Start: 10-08-2024 Fluticasone Propion-Salmeterol (Advair Diskus) 500-50 mcg/dose blister with device Active 1 NMA INHALATION TWICE A DAY October 08, 2024 12:00am Start: 04-09-2022 take 2 puff(s) by in halation twice daily fluticasone-salmeterol HFA (ADVAIR HFA) 115-21 mcg/actuation inhaler [...] 01, 2013 11:00pm January 29, 2014 8:27am montelukast 10 mg oral tablet (1 source) Leukotriene Receptor Antagonist Start: 10-09-2024 take 1 tablet by mouth at dinner Montelukast 10 mg Tablet Active 10 mg PO WITH DINNER October 09, 2024 12:00am mycophenolate mofetil 500 mg oral tablet (13 sources) Start: 05-20-2022 take 1 tablet by mouth twice daily Mycophenolate Mofetil (Cellcept) 500 mg tablet Active 500 mg PO TWICE A DAY May 20, 2022 1:00am take 1 capsule by mouth twice da ag mycophenolate mofetil (CELLCEPT) 250 mg capsule Take 250 mg by mouth two times a day. Active tacrolimus 1 mg oral capsule (16 sources) Calcineurin Inhibitor Immunosuppressant Start: 02-03-2024 take 2 capsules by mouth twice daily Tacrolimus 1 mg capsule Active 2 mg PO TWICE A DAY February 03, 2024 12:00am Start: 01-23-2023 take 1 capsule by mo [facility] twice daily after mealtime Tacrolimus 1 mg capsule,extended release 24hr Active 2 mg PO TWICE A DAY May 20, 2022 1:00am must administer in the morning on an empty stomach, 1 hour before or 2 hours after a meal Start: 05-20-2022 take 1 capsule by [facility] twice daily after mealtime Tacrolimus 1 mg [...] after a meal take 5 capsules by [facility] once daily, then take 3 capsules by mouth in the morning, then take 2 capsules by mouth in the evening tacrolimus IR (PROGRAF) 1 mg capsule Take 5 mg by mouth once daily. 3 mg in am, 2 mg in pm Active Completed/Discontinued Medications Medication Drug Class(es) Dates Sig (Normalized) Sig (Original) amLODIPine 10 mg oral tablet (12 sources) Dihydropyridine Calcium Channel Akbar Start: 05-20-19 End: 10-09-19 25 take 1 tablet by mouth once daily Amlodipine (Norvasc) 10 mg tablet Discontinued 10 mg PO DAILY May 20, 2022 1:00am October 08, 2024 2:17am aspirin 81 mg delayed release oral tablet (12 sources) Platelet Aggregation Inhibitor, Nonsteroidal Anti-inflammatory Drug Start: 05-20-19 End: 07-07-19 25 take 1 tablet by mouth once daily Aspirin 81 mg tablet,delayed release (DR/EC) Discontinued 81 mg PO DAILY May 20, 2022 1:00am July 06, 2024 2:31am hydroCHLOROthiazide 25 mg oral tablet (13 sources) Thiazide Diuretic Start: 04-16-20 End: 05-20-19 take 1 tablet by mouth once daily Hydrochlorothiazide 25 MG tablet Discontinued 25 mg PO DAILY August 10, 2020 12:00am May 20, 2022 11:10am hydroCHLOROthiazide 12.5 mg / lisinopril 10 mg oral tablet (12 sources) Thiazide Diuretic, Angiotensin Converting Enzyme Inhibitor Start: 02-07-20 End: 08-11-19 Lisinopril-Hydrochloro thiazide 1 EACH tablet Discontinued 1 EA PO DAILY February 07, 2020 12:00am August 10, 2020 10:38am Start: 02-07-2020 End: 08-10-2020 Lisinopril-Hydrochlorothiazi de Discontinued 1 EA PO DAILY February 06, 2020 11:00pm August 10, 2020 9:38am lactulose 48668 mg powder for oral solution (12 sources) Osmotic Laxative Start: 04-17-2021 End: 05-20-2022 take 20 g by mouth three times daily Lactulose 20 gram packet Discontinued 20 g PO THREE TIMES A DAY April 17, 2021 1:00am May 20, 2022 11:10am magnesium hydroxide 400 mg chewable tablet (12 sources) Start: 05-20-2022 End: 07-06-2024 take 1 tablet by mouth twice daily Magnesium Hydroxide 400 mg (170 mg magnesium) tablet,chewable Discontinued 400 mg PO TWICE A DAY May 20, 2022 1:00am July 06, 2024 2:32am pantoprazole 40 mg oral granules (12 sources) Proton Pump Inhibitor Start: 05-20-2022 End: 07-06-2024 take 40 mg by mouth once daily Pantoprazole (Protonix) [address] for susp in packet Discontinued 40 mg PO DAILY May 20, 2022 1:00am July 06, 2024 2:33am predniSONE 20 mg oral tablet (20 sources) Start: 02-03-2024 End: 10-08-2024 take 2 tablets by mouth once daily [...] Discontinued sodium bicarbonate 650 mg oral tablet (12 sources) Start: 05-20-2022 End: 07-06-2024 take 2 [...] mg / trimethoprim 80 mg oral tablet (12 sources) Dihydrofolate Reductase Inhibitor Antibacterial, Sulfonamide Antimicrobial Start: 05-20-2022 End: 07-06-2024 take 1 tablet by mouth three times weekly Sulfamethoxazole-Trimethoprim (Bactrim) 400-80 mg tablet Discontinued 1 {tbl} PO .COMPLEX May 20, 2022 1:00am July 06, 2024 2:33am three times a week 1 TAB orally; Problems Active Problems Problem Classification Problem Date Documented Da te Episodic/Chronic Abdominal hernia (9 sources) Right inguinal hernia ; Translations: [Unilateral inguinal hernia, without obstruction or gangrene, not specified as recurrent] 04-07-2023 Episodic Acute bronchitis (9 sources) Acute bacterial bronchitis; Translations: [Acute bronchitis due to other specified organisms] Onset: 07-22-2024 Episodic Administrative/social admission (14 sources) Finding related to health insurance issues; Translations: [Insurance coverage problems] 05-16-2022 Episodic Alcohol-related disorders (20 sources) Alcohol abuse; Translations: [Alcohol abuse, uncomplicated] Onset: 5 05-20-2022 Chronic Alcohol-related disorders (12 sources) Alcohol intoxication; Translations: [Alcohol use, unspecified [...] of diseases classified elsewhere] Onset: 5 Episodic Cardiac dysrhythmias (5 sources) ECG: sinus tachycardia; Translations: [Tachycardia, unspecified] Onset: 5 10-08-2024 Episodic Essential hypertension (20 sources) Essential hypertension; Translations: [Essential (primary) hypertension] Onset: 6 05-16-2022 Chronic Mood disorders (1 source) Major depressive disorder; Translations: [Major depressive disorder, single episode, unspecified] 06-25-2017 Chronic Open wounds of extremities (12 sources) Laceration of hand; Translations: [Laceration without foreign body of left hand, initial encounter] 05-25-2020 Episodic Other gastrointestinal disorders (12 sources) Constipation; Translations: [Constipation, unspecified] 04-25-2021 Episodic Other injuries and conditions due to external causes (12 sources) Angioedema; Translations: [Angioneurotic edema, initial encounter] 05-16-2022 Episodic Other liver diseases (20 sources) Cirrhosis of liver; Translations: [Unspecified cirrhosis of liver] 05-20-2022 Chronic Other liver diseases (5 sources) Liver transplant status; Translations: [Liver replaced by transplant] Onset: 5 05-20-2022 Chronic Other liver diseases (12 sources) Jaundice; Translations: [Unspecified jaundice] 04-07-2021 Episodic Other lower respiratory disease (6 sources) Dyspnea; Translations: [Shortness of breath] 02-11-2024 Episodic Other lower respiratory disease (12 sources) Respiratory insufficiency; Translations: [Other abnormalities of breathing] 07-06-2024 Episodic Other lower respiratory disease (8 sources) Hypoxia; Translations: [Hypoxemia] 07-22-2024 Episodic Other lower respiratory disease (4 sources) Hypoxemia; Translations: [Hypoxemia] 10-08-2024 Episodic Other lower respiratory disease (4 sources) Acute respiratory distress; Translations: [Acute respiratory distress] 10-08-2024 Episodic Other lower respiratory disease (1 source) Hypoxemia; Translations: [Hypoxemia] Onset: 5 Episodic Other nutritional; endocrine; and metabolic disorders (12 sources) Obesity; Translations: [Obesity, unspecified] 05-20-2022 Chronic Other nutritional; endocrine; and metabolic disorders (1 source) Body mass index 40+ - severely obese; Translations: [Morbid (severe) obesity due to excess calories] Onset: 08-26-2017 Chronic Other nutritional; endocrine; and metabolic disorders (6 sources) Hypophosphatemia; Translations: [Other disorders of phosphorus metabolism] 07-22-2024 Chronic Other nutritional; endocrine; and metabolic disorders (1 source) Other disorders of phosphorus metabolism; Translations: [Other disorders of phosphorus metabolism] Onset: 5 Chronic Respiratory failure; insufficiency; arrest (adult) (10 sources) Acute respiratory failure; Translations: [Acute respiratory failure with hypoxia] Onset: 5 07-22-2024 Episodic Unclassified (1 source) Long-term use of immunosuppressant medication; Translations: [Long-term use of immunosuppressant medication] Onset: 5 Past or Other Problems Problem Classification Problem Date Documented Date Episodic/Chronic Inflammation; infection of eye (except that caused by tuberculosis or sexually transmitteddisease) (1 source) Allergic conjunctivitis; Translations: [Acute atopic conjunctivitis, unspecified eye] Onset: 06-26-2015 06-26-2015 Episodic Other lower respiratory disease (2 sources) Other abnormalities of breathing; Translations: [Other abnormalities of breathing] Onset: 07-12-2024 Episodic Results Test Name Value Interpretation Reference Range Facility Discharge Instructionon 09-26 Discharge Instruction [facility] Medical Records Department [address] [place] [address] Instructions for Home/Discharge Instructions 10/09/24 0858 MR#: [id number] Acct: [id number] Name: DANNY BEDOYA Rep #: [id number] : 1980 44 From: Meet Puckett DO PCP: Dr. Lexi Banres MD Status:ADM IN Discharge Instructions Diet Discharge Diet: No restrictions DC O2, CPAP, BIPAP needs Home O2 Discharge instructions: No Dressing / Incision Discharge Activity: No Restrictions Follow Up Care Test Results: Test results from this visit will be discussed in further detail at your follow-up appointment, if applicable. Discharge Plan Admission Admit Date/Time: 10/08/24 15:20 Primary Reason for Your Visit: shortness of breath Attending Provider: Meet Puckett Primary Care Provider: Lexi Barnes Consulting Providers: Uma Smith Discharge Orders/Prescriptions Prescriptions: New montelukast 10 mg Tablet 10 mg PO DINNER 30 Days Qty: 30 2RF prednisone 20 mg tablet 40 mg PO DAILY 4 Days Qty: 8 0RF Continued mycophenolate mofetil [CellCept] 500 mg tablet 500 mg PO BID fluticasone propion-salmeterol 1 EACH blister with device 1 ea IH DAILY albuterol sulfate 2.5 mg /3 mL (0.083 %) solution for nebulization 2.5 mg inhalation Q4H PRN Qty: 25 0RF Rx Instructions: Use q4 hours and PRN for wheezing tacrolimus 1 mg capsule 2 mg PO BID fluticasone propion-salmeterol [Advair Diskus] 500-50 mcg/dose blister with device 1 inh inhalation BID Referrals / Follow Up: Lexi Barnes MD [Primary Care Provider] - Disposition Disposition (needs filled in before D/C Order can be placed): Home, Self Care 10/09/24 0900 Meet Puckett DO CC: Dr. Lexi Barnes MD; Dr. Uma Smith DO Signed Normal [facility] Absolute lymphocyte countOrd ered By: Uma Smith on 10-08-2024 Lymphocytes Auto (Unsp spec) [#/Vol] 0.28 10*3/uL Low 0.83-4.51 [facility] Absolute lymphocyte countOrd ered By: Drew Colmenares on 10-08-2024 Lymphocytes Auto (Unsp spec) [#/Vol] 1.42 10*3/uL 0.83-4.51 [facility] Absolute neutrophil countOrd ered By: Uma Smith on 10-08-2024 Neutrophils (Bld) [#/Vol] 5.9 10*3/uL 2.0-7.7 [facility] Absolute neutrophil countOrd ered By: Drew Colmenares on 10-08-2024 Neutrophils (Bld) [#/Vol] 3.3 10*3/uL 2.0-7.7 [facility] Anion gap in Serum or Plasma Ordered By: Uma Smith on 10-08-2024 Anion gap [Moles/Vol] 14 mmol/L 09-09 [facility] Anion gap in Serum or Plasma Ordered By: Drew Colmenares on 10-08-2024 Anion gap [Moles/Vol] 13 mmol/L 09-09 [facility] Assessment of wrist artery p atency prior to arterial punctureOrdered By: Drew Colmenares on 10-08-2024 Arterial patency Wrist artery --pre arterial puncture Positive [facility] Automated lymphocyte count a s percentage of total leukocytesOrdered By: Uma Smith on 10-08-2024 Lymphocytes/100 WBC Auto (Unsp spec) 4.4 % Low [facility] Automated lymphocyte count a s percentage of total leukocytesOrdered By: Drew Colmenares on 10-08-2024 Lymphocytes/100 WBC Auto (Unsp spec) 23.7 % [facility] BUN/creatinine ratioOrdered By: Uma Smith on 10-08-2024 Urea nitrogen/Creatinine [Mass ratio] 20.0 mg/mg 02-14 [facility] BUN/creatinine ratioOrdered By: Drew Colmenares on 10-08-2024 Urea nitrogen/Creatinine [Mass ratio] 19.9 mg/mg 02-14 [facility] Basic Metabolic Profile (BMP )on 10-08-2024 BUN/CRE 19.9 RATIO Normal 02-14 [facility] Comment on above: Performed By: #### L 501.5200, L100.0100, [id number] #### [facility] [address] [place], [place] [address], [address] Calcium [Mass/Vol] 9.4 mg/dL Normal 7.6-11.0 [facility] Comment on above: Performed By: #### L [id number], L100.0100, [id number] #### [facility] [address] [place], [address] Chloride [Moles/Vol] 106 mmol/L Normal 98-108 [facility] Comment on above: Performed By: #### L 501.5200, L100.0100, [id number] #### [facility] [address] [place], [address] CO2 [Moles/Vol] 19.8 mmol/L Low 21.0-32.0 [facility] Comment on above: Performed By: #### L 501.5200, L100.0100, [id number] #### [facility] [address] [place], [address] Creatinine [Mass/Vol] 1.10 mg/dL Normal 0.70-1.20 [facility] Comment on above: Performed By: #### L 501.5200, L100.0100, [id number] #### [facility] [address] [place], [address] ECRCL 71.76 ml/min Normal 50-250 [facility] Comment on above: Performed By: #### L 501.5200, L100.0100, [id number] #### [facility] [address] [place], [address] GAP 13 Normal 5-15 [facility] Comment on above: Performed By: #### L 501.5200, L100.0100, [id number] #### [facility] [address] [place], [address] GFR/1.73 sq M.predicted among non-blacks MDRD (S/P/Bld) [Vol rate/Area] 85 mL/min/{1.73_m2} Normal >60 [facility] Comment on above: Result Comment: mL/m in/1.73m2 CKD-EPI Creatinine Equation (2020) Performed By: #### L 501.5200, L100.0100, [id number] #### [facility] [address] [place], [address] Glucose [Mass/Vol] 97 mg/dL Normal 70-99 [facility] Comment on above: Performed By: #### L 501.5200, L100.0100, [id number] #### [facility] [address] [place], [address] Potassium [Moles/Vol] 3.9 mmol/L Normal 3.3-5.1 [facility] Comment on above: Performed By: #### L 501.5200, L100.0100, [id number] #### [facility] [address] [place], [address] Sodium [Moles/Vol] 138 mmol/L Normal 133-145 [facility] Comment on above: Performed By: #### L 501.5200, L100.0100, [id number] #### [facility] [address] [place], [address] Urea nitrogen [Mass/Vol] 22 mg/dL High 4-19 [facility] Comment on above: Performed By: #### L 501.5200, L100.0100, [id number] #### [facility] [address] [place], [address] Basophil percentageOrdered B y: Uma Smith on 10-08-2024 Basophils/100 WBC (Bld) 0.2 % 0-1 [facility] Basophil percentageOrdered B y: Drew Colmenares on 10-08-2024 Basophils/100 WBC (Bld) 1.2 % High 0-1 [facility] Bilirubin, totalOrdered By: Uma Smith on 10-08-2024 Bilirubin [Mass/Vol] 1.03 mg/dL 0.00-1.30 [facility] Blood Gases by CPSon 025 ALEKSANDAR TEST Positive Normal [facility] Comment on above: Performed By: #### L 501.5200, L100.0100, [id number] #### [facility] [address] [place], [address] Base excess Calc (Bld) [Moles/Vol] -4 mmol/L Low -2 to +2 [facility] Comment on above: Performed By: #### L 501.5200, L100.0100, [id number] #### [facility] [address] [place], [address] Blood Gas Type ART Normal [facility] Comment on above: Performed By: #### L 501.5200, L100.0100, [id number] #### [facility] [address] [place], [address] CO2 [Moles/Vol] 22 mmol/L Normal [facility] Comment on above: Performed By: #### L 501.5200, L100.0100, [id number] #### [facility] [address] [place], [address] HCO3 (Bld) [Moles/Vol] 20.9 mmol/L Low 22-26 [facility] Comment on above: Performed By: #### L 501.5200, L100.0100, [id number] #### [facility] [address] [place], [address] Mode Not entered [facility] Comment on above: Performed By: #### L 501.5200, L100.0100, [id number] #### [facility] [address] [place], [address] O2 Delivery Dev Room Air Normal [facility] Comment on above: Performed By: #### L 501.5200, L100.0100, [id number] #### [facility] [address] [place], [address] pCO2 31.6 mmHg Low 35-45 [facility] Comment on above: Performed By: #### L 501.5200, L100.0100, [id number] #### [facility] [address] [place], [address] pH (Bld) 7.43 [pH] Normal 7.35-7.45 [facility] Comment on above: Performed By: #### L 501.5200, L100.0100, [id number] #### [facility] [address] [place], [address] PO2 57 mmHG Low 75-100 [facility] Comment on above: Performed By: #### L 501.5200, L100.0100, [id number] #### [facility] [address] [place], [address] SITE R Radial Normal [facility] Comment on above: Performed By: #### L 501.5200, L100.0100, [id number] #### [facility] [address] [place], [address] SO2 90 Low 95-99 [facility] Comment on above: Performed By: #### L 501.5200, L100.0100, [id number] #### [facility] [address] [place], [address] Blood base excess determinat ionOrdered By: Drew Colmenares on 10-08-2024 Base excess Calc (BldV) [Moles/Vol] -4 mmol/L Low -2-2 [facility] Blood bicarbonate measuremen tOrdered By: Drew Colmenares on 10-08-2024 HCO3 (Bld) [Moles/Vol] 20.9 mmol/L Low 22-26 [facility] CBC W/Diff, Automatedon 06- Absolute Lymph 0.28 X10 3/uL Low 0.83-4.51 [facility] Comment on above: Performed By: #### L 501.2300 #### [facility] [address] [place], [address] Absolute Neut 5.9 X10 3/uL Normal 2.0-7.7 [facility] Comment on above: Performed By: #### L 501.2300 #### [facility] [address] [place], [address] Basophils/100 WBC (Bld) 0.2 % Normal 0-1 [facility] Comment on above: Performed By: #### L 501.2300 #### [facility] [address] [place], [address] Eosinophils/100 WBC (Bld) 0.6 % Normal 0-5 [facility] Comment on above: Performed By: #### L 501.2300 #### [facility] [address] [place], [address] Erythrocyte distribution width (RBC) [Ratio] 12.8 % Normal 11.6-14.6 [facility] Comment on above: Performed By: #### L 501.2300 #### [facility] [address] [place], [address] Hematocrit (Bld) [Volume fraction] 41.2 % Normal 40-54 [facility] Comment on above: Performed By: #### L 501.2300 #### [facility] [address] [place], [address] Hemoglobin (Bld) [Mass/Vol] 14.4 g/dL Normal 13.0-16.5 [facility] Comment on above: Performed By: #### L 501.2300 #### [facility] [address] [place], [address] IG% 0.300 Normal 0.0-0.9 [facility] Comment on above: Result Comment: IG% - Immature Granulocytes (promyelocytes, myelocytes and metamyelocytes) > 1% indicates that a LEFT SHIFT is Present. Performed By: #### L 501.2300 #### [facility] [address] [place], [address] Lymphocytes/100 WBC (Bld) 4.4 % Low 19-41 [facility] Comment on above: Performed By: #### L 501.2300 #### [facility] [address] [place], [address] MCH (RBC) [Entitic mass] 29.9 pg Normal 27.0-32.0 [facility] Comment on above: Performed By: #### L 501.2300 #### [facility] [address] [place], [address] MCHC (RBC) [Mass/Vol] 35.0 g/dL Normal 32-36 [facility] Comment on above: Performed By: #### L 501.2300 #### [facility] [address] [place], [address] MCV (RBC) [Entitic vol] 85.5 fL Normal 80-94 [facility] Comment on above: Performed By: #### L 501.2300 #### [facility] [address] [place], [address] Monocytes/100 WBC (Bld) 1.7 % Normal 0-10 [facility] Comment on above: Performed By: #### L 501.2300 #### [facility] [address] [place], [address] Neutrophils/100 WBC (Bld) 92.8 % High 47-70 [facility] Comment on above: Performed By: #### L 501.2300 #### [facility] [address] [place], [address] Nucleated RBC (Bld) [#/Vol] 0 10*3/uL Normal 0-5 [facility] [facility] Comment on above: Performed By: #### L 501.0 #### [facility] [address] [place], [address] Platelet mean volume (Bld) [Entitic vol] 9.5 fL Normal 6.2-12.0 [facility] Comment on above: Performed By: #### L 501.2300 #### [facility] [address] [place], [address] Platelets (Bld) [#/Vol] 175 10*3/uL Normal 150-450 [facility] Comment on above: Performed By: #### L 501.0 #### [facility] [address] [place], [address] RBC (Bld) [#/Vol] 4.82 10*6/uL Normal 4.6-6.2 [facility] Comment on above: Performed By: #### L 501.0 #### [facility] [address] [place], [address] RDW SD 39.5 fl Normal 35.1-43.9 [facility] Comment on above: Performed By: #### L 501.0 #### [facility] [address] [place], [address] WBC (Bld) [#/Vol] 6.4 10*3/uL Normal 4.4-11.0 [facility] Comment on above: Performed By: #### L 501.230 #### [facility] [address] [place], [address] Absolute Lymph 1.42 X10 3/uL Normal 0.83-4.51 [facility] Comment on above: Performed By: #### L 501.5200, L100.0100, L500.4050 #### [facility] [address] [place], [address] Absolute Neut 3.3 X10 3/uL Normal 2.0-7.7 [facility] Comment on above: Performed By: #### L 501.5200, L100.0100, L500.4050 #### [facility] [address] [place], [address] Basophils/100 WBC (Bld) 1.2 % High 0-1 [facility] Comment on above: Performed By: #### L 501.5200, L100.0100, L500.4050 #### [facility] [address] [place], [address] Eosinophils/100 WBC (Bld) 9.2 % High 0-5 [facility] Comment on above: Performed By: #### L 501.5200, L100.0100, L500.4050 #### [facility] [address] [place], [address] Erythrocyte distribution width (RBC) [Ratio] 13.1 % Normal 11.6-14.6 [facility] Comment on above: Performed By: #### L 501.5200, L100.0100, L500.4050 #### [facility] [address] [place], [address] Hematocrit (Bld) [Volume fraction] 43.1 % Normal 40-54 [facility] Comment on above: Performed By: #### L 501.5200, L100.0100, L500.4050 #### [facility] [address] [place], [address] Hemoglobin (Bld) [Mass/Vol] 14.9 g/dL Normal 13.0-16.5 [facility] Comment on above: Performed By: #### L 501.5200, L100.0100, L500.4050 #### [facility] [address] [place], [address] IG% 0.500 Normal 0.0-0.9 [facility] Comment on above: Result Comment: IG% - Immature Granulocytes (promyelocytes, myelocytes and metamyelocytes) > 1% indicates that a LEFT SHIFT is Present. Performed By: #### L 501.5200, L100.0100, L500.4050 #### [facility] [address] [place], [address] Lymphocytes/100 WBC (Bld) 23.7 % Normal 19-41 [facility] Comment on above: Performed By: #### L 501.5200, L100.0100, L500.4050 #### [facility] [address] [place], [address] MCH (RBC) [Entitic mass] 29.6 pg Normal 27.0-32.0 [facility] Comment on above: Performed By: #### L 501.5200, L100.0100, L500.4050 #### [facility] [address] [place], [address] MCHC (RBC) [Mass/Vol] 34.6 g/dL Normal 32-36 [facility] Comment on above: Performed By: #### L 501.5200, L100.0100, L500.4050 #### [facility] [address] [place], [address] MCV (RBC) [Entitic vol] 85.7 fL Normal 80-94 [facility] Comment on above: Performed By: #### L 501.5200, L100.0100, L500.4050 #### [facility] [address] [place], [address] Monocytes/100 WBC (Bld) 9.7 % Normal 0-10 [facility] Comment on above: Performed By: #### L 501.5200, L100.0100, L500.4050 #### [facility] [address] [place], [address] Neutrophils/100 WBC (Bld) 55.7 % Normal 47-70 [facility] Comment on above: Performed By: #### L 501.5200, L100.0100, L500.4050 #### [facility] [address] [place], [address] Nucleated RBC (Bld) [#/Vol] 0 10*3/uL Normal 0-5 [facility] Comment on above: Performed By: #### L 501.5200, L100.0100, L500.4050 #### [facility] [address] [place], [address] Platelet mean volume (Bld) [Entitic vol] 9.2 fL Normal 6.2-12.0 [facility] Comment on above: Performed By: #### L 501.5200, L100.0100, L500.4050 #### [facility] [address] [place], [address] Platelets (Bld) [#/Vol] 186 10*3/uL Normal 150-450 [facility] Comment on above: Performed By: #### L 501.5200, L100.0100, L500.4050 #### [facility] [address] [place], [address] RBC (Bld) [#/Vol] 5.03 10*6/uL Normal 4.6-6.2 [facility] Comment on above: Performed By: #### L 501.5200, L100.0100, L500.4050 #### [facility] [address] [place], [address] RDW SD 40.2 fl Normal 35.1-43.9 [facility] Comment on above: Performed By: #### L 501.5200, L100.0100, L500.4050 #### [facility] [address] [place], [address] WBC (Bld) [#/Vol] 6.0 10*3/uL Normal 4.4-11.0 [facility] Comment on above: Performed By: #### L 501.5200, L100.0100, L500.4050 #### [facility] [address] [place], [address] COVID 19 AG RAPID (JORGE Acuna)on 10-08-2024 SARS-CoV-2 (COVID-19) RNA DANA+probe Ql (Unsp spec) *Negative results from patients with symptom onset beyond five days should be treated as presumptive and confirmed by a molecular assay if clinically necessary. Negative results should not be used as the sole basis for treatment or for patient management. SARS-CoV-2 Ag Resp Ql IA.rapid *Positive results do not differentiate between SARS-CoV and SARS-CoV-2. If differentiation of the specific SARS virus is desired an additional sample and an additional order is required. SARS-CoV-2 Ag Resp Ql IA.rapid * This test has not been FDA cleared or approved; the test has been authorized by FDA under an Emergency Use Authorization (EAU) for use by laboratories certified under CLIA that meet the requirements to perform moderate, high, or waived complexity tests. SARS-CoV-2 Ag Resp Ql IA.rapid Normal Reference Range: Negative SARS-CoV-2 (COVID 19) Negative RAPID METHOD [employer] COVID19 Ag Card Normal [facility] Comment on above: Performed By: #### L 501.2300 #### [facility] [address] [place], [address] COVID-19 virus antigen assay Ordered By: Uma Smith on 10-08-2024 SARS-CoV-2 (COVID-19) Ag IA.rapid Ql (Resp) [facility] Carbon dioxide, total [Moles /volume] in Central venous bloodOrdered By: Uma Smith on 10-08-2024 CO2 [Moles/Vol] 18.8 mmol/L Low 21.0-32.0 [facility] Carbon dioxide, total [Moles /volume] in Central venous bloodOrdered By: Drew Colmenares on 10-08-2024 CO2 [Moles/Vol] 19.8 mmol/L Low 21.0-32.0 [facility] Chest PA and Lateralon 10-08 Chest PA and Lateral [facility] [address] [place] [address] Chest PA and Lateral MR#: [id number] Acct: [id number] Name: DANNY BEDOYA Rep #: [id number] : 1980 M 44 From: Yin andrade MD PCP: Dr. Lexi Barnes MD Status: PRE ER Study: Chest PA and Lateral Date of Exam: 10/08/24 Exam# [id number] Ordering Dr: Drew Colmenares MD PROCEDURE: CHEST PA AND LATERAL 10/08/2024 REASON FOR EXAM: RESPIRATORY DISTRESS WITH WHEEZING THROUGHOUT TECHNIQUE: Frontal and lateral views of the chest. COMPARISON: 07/05/2024. FINDINGS: The lungs are emphysematous. There is no demonstrated acute parenchymal abnormality. Blunting of the costophrenic angles, probably adhesions. Normal heart and pericardium. Normal mediastinum and paula. Normal visualized pulmonary arteries. Normal visualized aortic arch and descending thoracic aorta. Normal visualized thoracic spine. Normal visualized ribs, clavicles, and shoulders. There is no demonstrated abnormality of the visualized soft tissue structures of the upper abdomen. RAD/Chest PA and Lateral IMPRESSION: No evidence for acute abnormality. Reading [facility] CC: Dr. Lexi Barnes MD; Dr. Drew Colmenares MD Rat Farmer: Signed Normal [facility] Chloride assayOrdered By: Vaughn Smith on 10-08-2024 Chloride [Moles/Vol] 106 mmol/L 98-108 [facility] Chloride assayOrdered By: Veronica Colmenares on 06-13-2025 Chloride [Moles/Vol] 106 mmol/L 98-108 [facility] Comprehensive Metabolic Prof ilon 10-08-2024 Albumin [Mass/Vol] 4.5 g/dL Normal 3.5-5.0 [facility] Comment on above: Performed By: #### L 501.2300 #### [facility] [address] [place], [address] Albumin/Globulin [Mass ratio] 1.8 {ratio} Normal 0.9-2.4 [facility] Comment on above: Performed By: #### L 501.2300 #### [facility] [address] [place], [address] ALK PHOS 69 U/L Normal 40-129 [facility] Comment on above: Performed By: #### L 501.2300 #### [facility] [address] [place], [address] ALT [Catalytic activity/Vol] 24 U/L Normal <=46 [facility] Comment on above: Performed By: #### L 501.2300 #### [facility] [address] [place], [address] AST [Catalytic activity/Vol] 22 U/L Normal <=37 [facility] Comment on above: Performed By: #### L 501.2300 #### [facility] [address] [place], [address] Bilirubin [Mass/Vol] 1.03 mg/dL Normal 0.00-1.30 [facility] Comment on above: Performed By: #### L 501.2300 #### [facility] [address] [place], [address] BUN/CRE 20.0 RATIO Normal 10-20 [facility] Comment on above: Performed By: #### L 501.2300 #### [facility] [address] [place], [address] Calcium [Mass/Vol] 9.4 mg/dL Normal 7.6-11.0 [facility] Comment on above: Performed By: #### L 501.2300 #### [facility] [address] [place], [address] Chloride [Moles/Vol] 106 mmol/L Normal 98-108 [facility] Comment on above: Performed By: #### L 501.2300 #### [facility] [address] [place], [address] CO2 [Moles/Vol] 18.8 mmol/L Low 21.0-32.0 [facility] Comment on above: Performed By: #### L 501.2300 #### [facility] [address] [place], [address] Creatinine [Mass/Vol] 1.07 mg/dL Normal 0.70-1.20 [facility] Comment on above: Performed By: #### L 501.2300 #### [facility] [address] [place], [address] ECRCL 77.58 ml/min Normal 50-250 [facility] Comment on above: Performed By: #### L 501.2300 #### [facility] [address] [place], [address] GAP 14 Normal 5-15 [facility] Comment on above: Performed By: #### L 501.2300 #### [facility] [address] [place], [address] GFR/1.73 sq M.predicted among non-blacks MDRD (S/P/Bld) [Vol rate/Area] 88 mL/min/{1.73_m2} Normal >60 [facility] Comment on above: Result Comment: mL/m in/1.73m2 CKD-EPI Creatinine Equation (2020) Performed By: #### L 501.2300 #### [facility] [address] [place], [address] Globulin (S) [Mass/Vol] 2.5 g/dL Normal 2.2-4.2 [facility] Comment on above: Performed By: #### L 501.2300 #### [facility] [address] [place], [address] Glucose [Mass/Vol] 142 mg/dL High 70-99 [facility] Comment on above: Performed By: #### L 501.2300 #### [facility] [address] [place], [address] Potassium [Moles/Vol] 3.6 mmol/L Normal 3.3-5.1 [facility] Comment on above: Performed By: #### L 501.2300 #### [facility] [address] [place], [address] Sodium [Moles/Vol] 139 mmol/L Normal 133-145 [facility] Comment on above: Performed By: #### L 501.2300 #### [facility] [address] [place], [address] T PROT 7.0 g/dL Normal 5.9-8.4 [facility] Comment on above: Performed By: #### L 501.2300 #### [facility] [address] [place], [address] Urea nitrogen [Mass/Vol] 21 mg/dL High 4-19 [facility] Comment on above: Performed By: #### L 501.2300 #### [facility] [address] [place], [address] Emergency Department Summary on 10-08-2024 Emergency Department Summary [facility] Department [address] [place] [address] Emergency Department Summary 10/08/24 MR#: [id number] Acct: [id number] Name: DANNY BEDOYA Rep #: [id number] : 1980 44 From: Drew Colmenares MD PCP: Dr. Lexi Barnes MD Status:REG ER Location: ED HPI History of Present Illness Chief Complaint: Asthma Detail of Chief Complaint: Difficulty breathing with wheezing, history of asthma Informant: patient, spouse/S.O. and EMS Onset/Context/Timing Onset: Today Context: sudden Timing: Continuous Quality: Positive for Dyspnea on exertion and Wheezing; Negative for Orthopnea or PND Current Severity: Moderate Maximum Severity: Severe Worsened by: Exertion Relieved by: Nothing Associated Symptoms cough; Negative for rhinorrhea, post nasal drip, ear pain, fever, sore throat, subjective, chills, sweats, clear sputum, white sputum, yellow sputum or green sputum Chest Pain: Positive for None Narrative Narrative: Patient is a 44-year-old male. He has environmental allergies and history of asthma. He states he was kayaking yesterday. He is wondering if this may be the cause of his trouble breathing. He has been on prednisone within the last 3 months. He denies upper respiratory tract infectious symptoms. He denies fever or chills. He denies night sweats. Patient's answers were limited to 2-3 words because he is in respiratory distress with use of accessory muscles and mild supraclavicular retractions. Also, patient has mild intercostal retractions. There is no history of VTE. He has no risk factors for VTE. PE Risk Factors: Negative for Cancer, OCP + Smoking + > 35, Prior DVT or PE, Recent immobilization, Recent surgery or Recent travel Prior similar symptoms: Yes (Asthma) Recent Illness/Hospitalization: Yes (Last ER visit was July 22, 2024. He was admitted at that time. ) [facility] Medical History Cirrhosis Asthma Alcohol abuse Angioedema Home Medications ???Medication ???Instructions ???Recorded ???Last Taken ???Type fluticasone 100 mcg-salmeterol 50 1 ea IH DAILY breathing 01/04/19 07/21/24 History mcg/dose blistr powdr for inhalation mycophenolate mofetil 500 mg 500 mg PO BID liver transplant 07/21/24 History tablet (CellCept) albuterol sulfate 2.5 mg/3 mL 2.5 mg (3 mL) inhalation Q4H PRN 1 07/22/24 Rx (0.083 %) solution for nebulization #25 vials tacrolimus 1 mg capsule, 2 mg PO BID liver transplant 02/0207/21/24 History immediate-release Allergy/AdvReac Type Severity Reaction Status Date / Time lisinopril Allergy Angioedema Verified 10/08/24 02:10 Family History Father Alcoholism Asthma Mother Asthma Grandmother Cancer brain Surgical History Hx of liver transplant Social History household members: none current occupational status: employed 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[employer] Smoking Status: Never smoker Electronic Cigarette Use: not used alcohol intake: former details: former heavy drinker, 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 substance use type: marijuana what type of physical activity do you participate in: none do you feel safe at home: Yes ROS ROS ED Constitutional Constitutional ED: Denies chills, fever(s), sweats or weight loss Eyes Eyes: Denies blurry vision or change in vision ENT ENT ED: Denies ear pain, rhinorrhea or sore throat Cardiovascular Cardiovascular: Denies chest pain, orthopnea, palpitations or paroxysmal nocturnal dyspnea Respiratory/Chest Respiratory/Chest: Reports cough, dyspnea, dyspnea on exertion and other Details: Respiratory distress with wheezing ; Denies orthopnea, paroxysmal nocturnal dyspnea or sputum Gastrointestinal Gastrointestinal: Denies abdominal pain, nausea or vomiting Musculoskeletal Musculoskeletal: Denies arthralgias or myalgias Integumentary Denies rash Neurologic Neurologic: Denies paresthesias or weakness Psychiatric Psychiatric: Reports anxiety; Denies depression Endocrine Endocrinology: Denies cold intolerance or heat intolerance Hematologic/Lymphatic Hematologic/Lymphatic: Denies easy bleeding or easy bruising EXAM Physical Exam Const Vital Signs: 10/08/24 02:10 10/08/24 02:13 10/08/24 02:13 Temperature 98.5 F 98.5 F Temperature Source Oral Oral Pulse Rate 102 H 103 H Respiratory Rate 20 H 20 H Respiratory Effort Short of Breath Labored Respiratory Depth Shallow Respiratory Pattern Tachypnea Blood Pressure 144/99 H Blood Pressure Mean 114 Pulse Ox 92 93 Oxygen Delivery Method Room Air Room Air Room Air Oxygen Flow Rate (L/min) (more content not included)... Normal [facility] Eosinophil percentageOrdered By: Uma Smith on 10-08-2024 Eosinophils/100 WBC (Bld) 0.6 % 0-5 [facility] Eosinophil percentageOrdered By: Drew Colmenares on 10-08-2024 Eosinophils/100 WBC (Bld) 9.2 % High 0-5 [facility] Erythrocyte distribution wid th ratioOrdered By: Uma Smith on 10-08-2024 Erythrocyte distribution width (RBC) [Ratio] 12.8 % 11.6-14.6 [facility] Erythrocyte distribution wid th ratioOrdered By: Drew Colmenares on 10-08-2024 Erythrocyte distribution width (RBC) [Ratio] 13.1 % 11.6-14.6 [facility] Erythrocyte distribution wid th standard deviationOrdered By: Uma Smith on 10-08-2024 Erythrocyte distribution width (RBC) [Ratio] 39.5 fl 35.1-43.9 [facility] Erythrocyte distribution wid th standard deviationOrdered By: Drew Colmenares on 10-08-2024 Erythrocyte distribution width (RBC) [Ratio] 40.2 fl 35.1-43.9 [facility] Glomerular filtration rate ( GFR) estimation/1.73 sq m using serum, plasma, or whole bOrdered By: Uma Smith on 10-08-2024 GFR/1.73 sq M.predicted among non-blacks MDRD (S/P/Bld) [Vol rate/Area] 88 mL/min/{1.73_m2} >60 [facility] Comment on above: mL/min/1.73m2 CKD-EP I Creatinine Equation (2020) Glomerular filtration rate ( GFR) estimation/1.73 sq m using serum, plasma, or whole bOrdered By: Drew Colmenares on 10-08-2024 GFR/1.73 sq M.predicted among non-blacks MDRD (S/P/Bld) [Vol rate/Area] 85 mL/min/{1.73_m2} >60 [facility] Comment on above: mL/min/1.73m2 CKD-EP I Creatinine Equation (2020) H AND P Exam - [facility] 10-08-2024 H&P Exam - Hospitalist [facility] Medical Records Department [address] [place] [address] H P Exam - Hospitalist 10/08/24 0418 MR#: [id number] Acct: [id number] Name: DANNY BEDOYA Rep #: [id number] : 1980 44 From: Uma Smith DO PCP: Dr. Lexi Barnes MD Status:ADM KASSANDRA Location: [address] HPI - General General Date of Admission: 10/08/24 Date of Service: 10/08/24 Chief Complaint: Shortness of breath and wheezing HPI Narrative DANNY BEDOYA, is a 44 M who present to the emergency department [facility] on 10/08/2024 with shortness of breath and wheezing. Patient has a known history of environmental allergies and asthma. Patient reported he was kayaking the day prior to presentation and thought maybe that is what caused his trouble breathing due to environmental exposures. Patient reported he been on prednisone within the last 3 months but is not currently. He denied any other respiratory tract symptoms. He said no fever or chills. He said no significant cough or production of sputum. Upon presentation he had limited ability to speak in more than 2-3 words due to respiratory distress and use of accessory muscles. He was treated with DuoNebs x 1 and IV Solu-Medrol. His respiratory distress improved however he was hypoxic on room air 88%. He was placed on 2 L nasal cannula. Unfortunately, he remained persistently hypoxic despite treatment and will require admission for further management. Vital signs at the time of presentation showed a temperature of 98.5, heart rate 102, respiratory rate was 20 with short labored breathing that was shallow and tachypneic, blood pressure was 144/99 and pulse ox was 88% on room air at rest. CBC is unremarkable other than a significant eosinophilia at 9.2%. ABG was obtained and showed a pH of 7.43 with a PCO2 of 31.6 and a pO2 of 57 with a sat of 90% on room air. Chemistry panel was unremarkable. Chest x-ray is unremarkable. Given his hypoxia at rest we will admit as observation status with expected length of stay less than 2 midnights. [facility] Medical History Cirrhosis Asthma Alcohol abuse Angioedema Home Medications ???Medication ???Instructions ???Recorded ???Last Taken ???Type fluticasone 100 mcg-salmeterol 50 1 ea IH DAILY breathing 01/04/19 07/21/24 History mcg/dose blistr powdr for inhalation mycophenolate mofetil 500 mg 500 mg PO BID liver transplant 07/21/24 History tablet (CellCept) albuterol sulfate 2.5 mg/3 mL 2.5 mg (3 mL) inhalation Q4H PRN 1 07/22/24 Rx (0.083 %) solution for nebulization #25 vials tacrolimus 1 mg capsule, 2 mg PO BID liver transplant 02/0207/21/24 History immediate-release Allergy/AdvReac Type Severity Reaction Status Date / Time lisinopril Allergy Angioedema Verified 10/08/24 02:10 Family History Father Alcoholism Asthma Mother Asthma Grandmother Cancer brain Surgical History Hx of liver transplant Social History household members: none current occupational status: employed 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[employer] Smoking Status: Never smoker Electronic Cigarette Use: not used alcohol intake: former details: former heavy drinker, 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 substance use type: marijuana what type of physical activity do you participate in: none do you feel safe at home: Yes ROS Constitutional Constitutional: Denies anorexia, change in weight, chills, fatigue, fever(s), malaise, night sweats, weakness or other Eyes Eyes: Denies blurry vision, change in eye color, change in vision, discharge from eye(s), double vision, erythema, eye pain, loss of vision or other ENT HEENT: Denies abnormal hearing, dysphagia, ear pain, epistaxis, headache(s), hearing loss, nasal congestion, nasal discharge, post nasal drip, sinus pressure, sore throat or other Cardiovascular Cardiovascular: Reports dyspnea on exertion; Denies chest pain, claudication, edema, lightheadedness, orthopnea, palpitations, paroxysmal nocturnal dyspnea, rapid heart rate, syncope or other Respiratory/Chest Respiratory/Chest: Reports dyspnea, shortness of breath at rest and shortness of breath with exertion; Denies cough, excessive phlegm production, hemoptysis, productive cough, wheezing or other Gastrointestinal Gastrointestinal: Denies abdominal pain, coffee ground emesis, constipation, diarrhea, dyspepsia, hematemesis, hematochezia, loose stools, melena, nausea, vomiting or other Genitourinary Genitourinary: Denies burning urination, difficulty urinating, dysuria, hematuria, nocturia, urinary frequency, urinary hesitancy, urinary incontinence, urinary urgency or o (more content not included)... Normal [facility] Hematocrit Auto (Bld) [Volum e fraction]Ordered By: Uma Smith on 10-08-2024 Hematocrit (Bld) [Volume fraction] 41.2 % - [facility] Hematocrit Auto (Bld) [Volum e fraction]Ordered By: Drew Colmenares on 10-08-2024 Hematocrit (Bld) [Volume fraction] 43.1 % 40-54 [facility] Hemoglobin measurementOrdere d By: Uma Smith on 10-08-2024 Hemoglobin (Bld) [Mass/Vol] 14.4 g/dL 13.0-16.5 [facility] Hemoglobin measurementOrdere d By: Drew Colmenares on 10-08-2024 Hemoglobin (Bld) [Mass/Vol] 14.9 g/dL 13.0-16.5 [facility] Immature granulocytes/100 WB C Auto (Bld)Ordered By: Uma Smith on 10-08-2024 Immature granulocytes/100 WBC (Bld) 0.300 % 0.0-0.9 [facility] Comment on above: IG% - Immature Granu locytes (promyelocytes, myelocytes and metamyelocytes) > 1% indicates that a LEFT SHIFT is Present. Immature granulocytes/100 WB C Auto (Bld)Ordered By: Drew Colmenares on 10-08-2024 Immature granulocytes/100 WBC (Bld) 0.500 % 0.0-0.9 [facility] Comment on above: IG% - Immature Granu locytes (promyelocytes, myelocytes and metamyelocytes) > 1% indicates that a LEFT SHIFT is Present. International normalized rat io (INR) calculationOrdered By: Uma Smith on 10-08-2024 INR Coag (Bld) [Relative time] 1.1 {INR} [facility] - Chemistry and C hemistry - challengeOrdered By: Uma Smith on 10-08-2024 AST [Catalytic activity/Vol] 22 U/L <38 [facility] MCV (mean corpuscular volume ) determinationOrdered By: Uma Smith on 10-08-2024 MCV (RBC) [Entitic vol] 85.5 fL 80-94 [facility] MCV (mean corpuscular volume ) determinationOrdered By: Drew Colmenares on 10-08-2024 MCV (RBC) [Entitic vol] 85.7 fL 80-94 [facility] Mean corpuscular hemoglobin (MCH) determinationOrdered By: Uma Smith on 10-08-2024 MCH (RBC) [Entitic mass] 29.9 pg 27.0-32.0 [facility] Mean corpuscular hemoglobin (MCH) determinationOrdered By: Drew Colmenares on 10-08-2024 MCH (RBC) [Entitic mass] 29.6 pg 27.0-32.0 [facility] Mean corpuscular hemoglobin concentration (MCHC) determinationOrdered By: Uma Smith on 10-08-2024 MCHC (RBC) [Mass/Vol] 35.0 g/dL 32-36 [facility] Mean corpuscular hemoglobin concentration (MCHC) determinationOrdered By: Drew Colmenares on 10-08-2024 MCHC (RBC) [Mass/Vol] 34.6 g/dL 32-36 [facility] Mean platelet volume determi nationOrdered By: Uma Smith on 10-08-2024 Platelet mean volume (Bld) [Entitic vol] 9.5 fL 6.2-12.0 [facility] Mean platelet volume determi nationOrdered By: Drew Colmenares on 10-08-2024 Platelet mean volume (Bld) [Entitic vol] 9.2 fL 6.2-12.0 [facility] Measurement, pHOrdered By: Kenroy Colmenares on 10-08-2024 pH (Unsp spec) 7.43 [pH] 7.35-7.45 [facility] Monocyte percentageOrdered B y: Uma Smith on 10-08-2024 Monocytes/100 WBC (Bld) 1.7 % 0-10 [facility] Monocyte percentageOrdered B y: Drew Colmenares on 10-08-2024 Monocytes/100 WBC (Bld) 9.7 % 0-10 [facility] Neutrophil percentageOrdered By: Uma Smith on 10-08-2024 Neutrophils/100 WBC (Bld) 92.8 % High 47-70 [facility] Neutrophil percentageOrdered By: Drew Colmenares on 10-08-2024 Neutrophils/100 WBC (Bld) 55.7 % 47-70 [facility] No Panel InformationOrdered By: Drew Colmenares on 10-08-2024 Blood Gas Sample Site R Radial [facility] Blood Gas Specimen Type ART [facility] Blood Gas Vent Mode Not entered [facility] Oxygen Delivery Device Room Air [facility] Nucleated red blood cell per centageOrdered By: Uma Smith on 10-08-2024 Nucleated RBC/100 WBC (Bld) [Ratio] 0 % 0-5 [facility] Nucleated red blood cell per centageOrdered By: Drew Colmenares on 10-08-2024 Nucleated RBC/100 WBC (Bld) [Ratio] 0 % 0-5 [facility] Phosphoruson 10-08-2024 Phosphate [Mass/Vol] 2.2 mg/dL Low 2.7-4.5 [facility] Comment on above: Performed By: #### L 501.2300 #### [facility] [address] [place], [address] Platelet countOrdered By: Vaughn Smith on 10-08-2024 Platelets (Bld) [#/Vol] 175 10*3/uL 150-450 [facility] Platelet countOrdered By: Veronica Colmenares on 10-08-2024 Platelets (Bld) [#/Vol] 186 10*3/uL 150-450 [facility] Potassium measurement (mass/ volume)Ordered By: Uma Smith on 10-08-2024 Potassium (Unsp spec) [Mass/Vol] 3.6 mmol/L 3.3-5.1 [facility] Potassium measurement (mass/ volume)Ordered By: Drew Colmenares on 10-08-2024 Potassium (Unsp spec) [Mass/Vol] 3.9 mmol/L 3.3-5.1 [facility] Prothrombin Time w/INRon INR Coag (PPP) [Relative time] 1.1 {INR} Normal [facility] Comment on above: Performed By: #### L 501.2300 #### [facility] [address] [place], [place], [id number] PT Coag (PPP) [Time] 14.4 s Normal 11.7-14.9 [facility] Comment on above: Performed By: #### L 501.2300 #### [facility] [address] [place], [address] Prothrombin timeOrdered By: Uma Smith on 10-08-2024 PT Coag (PPP) [Time] 14.4 s 11.7-14.9 [facility] RBC Auto (Bld) [#/Vol]Ordere d By: Uma Smith on 10-08-2024 RBC (Bld) [#/Vol] 4.82 10*6/uL 4.6-6.2 [facility] RBC Auto (Bld) [#/Vol]Ordere d By: Drew Colmenares on 10-08-2024 RBC (Bld) [#/Vol] 5.03 10*6/uL 4.6-6.2 [facility] RESPIRATORY PANEL MOLECULARo n 10-08-2024 RP PANEL ADENOVIRUS Not Detected INFLUENZA A Not Detected INFLUENZA A (SUBTYPE H1) Not Detected INFLUENZA A (SUBTYPE H3) Not Detected INFLUENZA B Not Detected HUMAN METAPHNEUMO Not Detected PARAINFLUENZA 1 Not Detected PARAINFLUENZA 2 Not Detected PARAINFLUENZA 3 Not Detected PARAINFLUENZA 4 Not Detected RHINOVIRUS Not Detected RSV A Not Detected RSV B Not Detected Normal [facility] Comment on above: Performed By: #### M 100.638 ####[facility] [id number] [place], [address] Respiratory pathogens detect ion panel by molecular detection methodOrdered By: Uma Smith on 10-08-2024 Respiratory pathogens DNA and RNA panel DANA+probe (Resp) [facility] Serum creatinine measurement (mass/volume)Ordered By: Uma Smith on 10-08-2024 Creatinine [Mass/Vol] 1.07 mg/dL 0.70-1.20 [facility] Serum creatinine measurement (mass/volume)Ordered By: Drew Colmenares on 10-08-2024 Creatinine [Mass/Vol] 1.10 mg/dL 0.70-1.20 [facility] Serum globulin measurementOr dered By: Uma Smith on 10-08-2024 Globulin (S) [Mass/Vol] 2.5 g/dL 2.2-4.2 [facility] Serum glucose measurement (m ass/volume)Ordered By: Uma Smith on 10-08-2024 Glucose [Mass/Vol] 142 mg/dL High 70-99 [facility] Serum glucose measurement (m ass/volume)Ordered By: Drew Colmenares on 10-08-2024 Glucose [Mass/Vol] 97 mg/dL 70-99 [facility] Serum or plasma alanine rodas otransferase (ALT) measurementOrdered By: Uma Smith on 10-08-2024 ALT [Catalytic activity/Vol] 24 U/L <47 [facility] Serum or plasma albumin ginny urement (mass/volume)Ordered By: Uma Smith on 10-08-2024 Albumin [Mass/Vol] 4.5 g/dL 3.5-5.0 [facility] Serum or plasma albumin/glob ulin mass ratioOrdered By: Uma Smith on 10-08-2024 Albumin/Globulin [Mass ratio] 1.8 {ratio} 0.9-2.4 [facility] Serum or plasma alkaline yarelis sphatase measurementOrdered By: Uma Smith on 10-08-2024 ALP [Catalytic activity/Vol] 69 U/L 40-129 [facility] Serum or plasma calcium ginny urement (mass/volume)Ordered By: Uma Smith on 10-08-2024 Calcium [Mass/Vol] 9.4 mg/dL 7.6-11.0 [facility] Serum or plasma calcium ginny urement (mass/volume)Ordered By: Drew Colmenares on 10-08-2024 Calcium [Mass/Vol] 9.4 mg/dL 7.6-11.0 [facility] Serum or plasma urea nitroge n measurement (mass/volume)Ordered By: Uma Smith on 10-08-2024 Urea nitrogen [Mass/Vol] 21 mg/dL High - [facility] Serum or plasma urea nitroge n measurement (mass/volume)Ordered By: Drew Colmenares on 10-08-2024 Urea nitrogen [Mass/Vol] 22 mg/dL [facility] Sodium levelOrdered By: Maria Luz Smith on 10-08-2024 Sodium [Moles/Vol] 139 mmol/L 133-145 [facility] Sodium levelOrdered By: Drew Colmenares on 10-08-2024 Sodium [Moles/Vol] 138 mmol/L 133-145 [facility] Total carbon dioxide measure mentOrdered By: Drew Colmenares on 10-08-2024 CO2 [Moles/Vol] 22 mmol/L [facility] Total proteinOrdered By: Melia Smith on 10-08-2024 Protein [Mass/Vol] 7.0 g/dL 5.9-8.4 [facility] White blood cell (WBC) count Ordered By: Uma Smith on 10-08-2024 WBC (Bld) [#/Vol] 6.4 10*3/uL 4.4-11.0 [facility] White blood cell (WBC) count Ordered By: Drew Colmenares on 10-08-2024 WBC (Bld) [#/Vol] 6.0 10*3/uL 4.4-11.0 [facility] Absolute lymphocyte countOrd ered By: Lisa Wallis on 07-23-2024 Lymphocytes Auto (Unsp spec) [#/Vol] 0.56 10*3/uL Low 0.83-4.51 [facility] Absolute neutrophil countOrd ered By: Lisa Wallis on 07-23-2024 Neutrophils (Bld) [#/Vol] 7.8 10*3/uL High 2.0-7.7 [facility] Anion gap in Serum or Plasma Ordered By: Lisa Wallis on 07-23-2024 Anion gap [Moles/Vol] 13 mmol/L 5-15 [facility] Automated lymphocyte count a s percentage of total leukocytesOrdered By: Lisa Wallis on 07-23-2024 Lymphocytes/100 WBC Auto (Unsp spec) 6.4 % Low 19-41 [facility] BUN/creatinine ratioOrdered By: Lisa Wallis on 07-23-2024 Urea nitrogen/Creatinine [Mass ratio] 19.9 mg/mg 10-20 [facility] Basophil percentageOrdered B y: Lisa Wallis on 07-23-2024 Basophils/100 WBC (Bld) 0.1 % 0-1 [facility] Bilirubin, totalOrdered By: Lisa Wallis on 07-23-2024 Bilirubin [Mass/Vol] 0.74 mg/dL 0.00-1.30 [facility] CBC W/Diff, Automatedon 06-27 Absolute Lymph 0.56 X10 3/uL Low 0.83-4.51 [facility] Comment on above: Performed By: #### L 501.5200, L100.0100, L500.4050 #### [facility] [address] [place], [address] Absolute Neut 7.8 X10 3/uL High 2.0-7.7 [facility] Comment on above: Performed By: #### L 501.5200, L100.0100, L500.4050 #### [facility] [address] [place], [address] Basophils/100 WBC (Bld) 0.1 % Normal 0-1 [facility] Comment on above: Performed By: #### L 501.5200, L100.0100, L500.4050 #### [facility] [address] [place], [address] Eosinophils/100 WBC (Bld) 0.0 % Normal 0-5 [facility] Comment on above: Performed By: #### L 501.5200, L100.0100, L500.4050 #### [facility] [address] [place], [address] Erythrocyte distribution width (RBC) [Ratio] 12.7 % Normal 11.6-14.6 [facility] Comment on above: Performed By: #### L 501.5200, L100.0100, L500.4050 #### [facility] [address] [place], [address] Hematocrit (Bld) [Volume fraction] 40.4 % Normal 40-54 [facility] Comment on above: Performed By: #### L 501.5200, L100.0100, L500.4050 #### [facility] [address] [place], [address] Hemoglobin (Bld) [Mass/Vol] 13.9 g/dL Normal 13.0-16.5 [facility] Comment on above: Performed By: #### L 501.5200, L100.0100, L500.4050 #### [facility] [address] [place], [address] IG% 0.700 Normal 0.0-0.9 [facility] Comment on above: Result Comment: IG% - Immature Granulocytes (promyelocytes, myelocytes and metamyelocytes) > 1% indicates that a LEFT SHIFT is Present. Performed By: #### L 501.5200, L100.0100, L500.4050 #### [facility] [address] [place], [address] Lymphocytes/100 WBC (Bld) 6.4 % Low 19-41 [facility] Comment on above: Performed By: #### L 501.5200, L100.0100, L500.4050 #### [facility] [address] [place], [address] MCH (RBC) [Entitic mass] 29.2 pg Normal 27.0-32.0 [facility] Comment on above: Performed By: #### L 501.5200, L100.0100, L500.4050 #### [facility] [address] [place], [address] MCHC (RBC) [Mass/Vol] 34.4 g/dL Normal 32-36 [facility] Comment on above: Performed By: #### L 501.5200, L100.0100, L500.4050 #### [facility] [address] [place], [address] MCV (RBC) [Entitic vol] 84.9 fL Normal 80-94 [facility] Comment on above: Performed By: #### L 501.5200, L100.0100, L500.4050 #### [facility] [address] [place], [address] Monocytes/100 WBC (Bld) 3.6 % Normal 0-10 [facility] Comment on above: Performed By: #### L 501.5200, L100.0100, L500.4050 #### [facility] [address] [place], [address] Neutrophils/100 WBC (Bld) 89.2 % High 47-70 [facility] Comment on above: Performed By: #### L 501.5200, L100.0100, L500.4050 #### [facility] [address] [place], [address] Nucleated RBC (Bld) [#/Vol] 0 10*3/uL Normal 0-5 [facility] Comment on above: Performed By: #### L 501.5200, L100.0100, L500.4050 #### [facility] [address] [place], [address] Platelet mean volume (Bld) [Entitic vol] 9.4 fL Normal 6.2-12.0 [facility] Comment on above: Performed By: #### L 501.5200, L100.0100, L500.4050 #### [facility] [address] [place], [address] Platelets (Bld) [#/Vol] 173 10*3/uL Normal 150-450 [facility] Comment on above: Performed By: #### L 501.5200, L100.0100, L500.4050 #### [facility] [address] [place], [address] RBC (Bld) [#/Vol] 4.76 10*6/uL Normal 4.6-6.2 [facility] Comment on above: Performed By: #### L 501.5200, L100.0100, L500.4050 #### [facility] [address] [place], [address] RDW SD 38.7 fl Normal 35.1-43.9 [facility] Comment on above: Performed By: #### L 501.5200, L100.0100, L500.4050 #### [facility] [address] [place], [address] WBC (Bld) [#/Vol] 8.7 10*3/uL Normal 4.4-11.0 [facility] Comment on above: Performed By: #### L 501.5200, L100.0100, L500.4050 #### [facility] [address] [place], [address] Carbon dioxide, total [Moles /volume] in Central venous bloodOrdered By: Lisa Wallis on 07-23-2024 CO2 [Moles/Vol] 16.5 mmol/L Low 21.0-32.0 [facility] Chloride assayOrdered By: Jatinder Wallis on 07-23-2024 Chloride [Moles/Vol] 110 mmol/L High 98-108 [facility] Comprehensive Metabolic Prof ilon 07-23-2024 Albumin [Mass/Vol] 4.2 g/dL Normal 3.5-5.0 [facility] Comment on above: Performed By: #### L 501.5200, L100.0100, L500.4050 #### [facility] [address] [place], [address] Albumin/Globulin [Mass ratio] 1.6 {ratio} Normal 0.9-2.4 [facility] Comment on above: Performed By: #### L 501.5200, L100.0100, L500.4050 #### [facility] [address] [place], [address] ALK PHOS 69 U/L Normal 40-129 [facility] Comment on above: Performed By: #### L 501.5200, L100.0100, L500.4050 #### [facility] [address] [place], [address] ALT [Catalytic activity/Vol] 57 U/L High <=46 [facility] Comment on above: Performed By: #### L 501.5200, L100.0100, L500.4050 #### [facility] [address] [place], [address] AST [Catalytic activity/Vol] 40 U/L High <=37 [facility] Comment on above: Performed By: #### L 501.5200, L100.0100, L500.4050 #### [facility] [address] [place], [address] Bilirubin [Mass/Vol] 0.74 mg/dL Normal 0.00-1.30 [facility] Comment on above: Performed By: #### L 501.5200, L100.0100, L500.4050 #### [facility] [address] [place], [address] BUN/CRE 19.9 RATIO Normal 10-20 [facility] Comment on above: Performed By: #### L 501.5200, L100.0100, L500.4050 #### [facility] [address] [place], [address] Calcium [Mass/Vol] 9.1 mg/dL Normal 7.6-11.0 [facility] Comment on above: Performed By: #### L 501.5200, L100.0100, L500.4050 #### [facility] [address] [place], [address] Chloride [Moles/Vol] 110 mmol/L High 98-108 [facility] Comment on above: Performed By: #### L 501.5200, L100.0100, L500.4050 #### [facility] [address] [place], [address] CO2 [Moles/Vol] 16.5 mmol/L Low 21.0-32.0 [facility] Comment on above: Performed By: #### L 501.5200, L100.0100, L500.4050 #### [facility] [address] [place], [address] Creatinine [Mass/Vol] 1.02 mg/dL Normal 0.70-1.20 [facility] Comment on above: Performed By: #### L 501.5200, L100.0100, L500.4050 #### [facility] [address] [place], [address] ECRCL 77.39 ml/min Normal 50-250 [facility] Comment on above: Performed By: #### L 501.5200, L100.0100, L500.4050 #### [facility] [address] [place], [address] GAP 13 Normal 5-15 [facility] Comment on above: Performed By: #### L 501.5200, L100.0100, L500.4050 #### [facility] [address] [place], [address] GFR/1.73 sq M.predicted among non-blacks MDRD (S/P/Bld) [Vol rate/Area] 93 mL/min/{1.73_m2} Normal >60 [facility] Comment on above: Result Comment: mL/m in/1.73m2 CKD-EPI Creatinine Equation (2020) Performed By: #### L 501.5200, L100.0100, L500.4050 #### [facility] [address] [place], [address] Globulin (S) [Mass/Vol] 2.6 g/dL Normal 2.2-4.2 [facility] Comment on above: Performed By: #### L 501.5200, L100.0100, L500.4050 #### [facility] [address] [place], [address] Glucose [Mass/Vol] 174 mg/dL High 70-99 [facility] Comment on above: Performed By: #### L 501.5200, L100.0100, L500.4050 #### [facility] [address] [place], [address] Potassium [Moles/Vol] 4.3 mmol/L Normal 3.3-5.1 [facility] Comment on above: Performed By: #### L 501.5200, L100.0100, L500.4050 #### [facility] [address] [place], [address] Sodium [Moles/Vol] 140 mmol/L Normal 133-145 [facility] Comment on above: Performed By: #### L 501.5200, L100.0100, L500.4050 #### [facility] [address] [place], [address] T PROT 6.8 g/dL Normal 5.9-8.4 [facility] Comment on above: Performed By: #### L 501.5200, L100.0100, L500.4050 #### [facility] [address] [place], [address] Urea nitrogen [Mass/Vol] 20 mg/dL High 4-19 [facility] Comment on above: Performed By: #### L 501.5200, L100.0100, L500.4050 #### [facility] [address] [place], [address] Discharge Instructionon 06-27 Discharge Instruction [facility] Department [address] [place] [address] Instructions for Home/Discharge Instructions 07/23/24 0913 MR#: [id number] Acct: [id number] Name: DANNY BEDOYA Rep #: [id number] : 1980 44 From: Andrea Daly MD [...] - Within 1 Week Echo Michael NP, CLEARANCE DIVER-C [Med Staff - Adv Practice Prof] - Within 1 Month Disposition Disposition (needs filled in before D/C Order can be placed): Home, Self Care 07/23/24 0929 Andrea Daly MD CC: Dr. Lexi Barnes MD; Dr. Lisa Jain DO Signed Normal [facility] Electrocardiogram reportOrde red By: Alexy York on 07-23-2024 EKG study [facility] [address] [place] [address] 12 Lead EKG 07/22/24 0129 MR#: [id number] Acct: [id number] Name: DANNY BEDOYA Rep #:[id number] : 1980 44 From: Alexy York MD Attending Dr: Dr. Andrea Daly MD Status: ADM IN Ordering Dr: Natalie Jeffery DO Date: 0 07/22/24 Location: [facility] Sex: M C Admitted: 07/22/24 Test Reason [...] Borderline ECG Confirmed by ALEXY YORK MD ([id number]), editor greeting card SHARON HANNAH ([id number]) on 07/23/2024 8:19:45 AM Referred By: Confirmed By: ALEXY YORK MD 07/23/24 0819 Date _ Alexy York MD CC: Dr. Lexi Barnes MD; Dr. Natalie eJffery, DO; Dr. Andrea Daly MD ~ Signed [facility] Other Phone: Eosinophil percentageOrdered By: Lisa Wallis on 07-23-2024 Eosinophils/100 WBC (Bld) 0.0 % 0-5 [facility] Erythrocyte distribution wid th ratioOrdered By: Lisa Wallis on 07-23-2024 Erythrocyte distribution width (RBC) [Ratio] 12.7 % 11.6-14.6 [facility] Erythrocyte distribution wid th standard deviationOrdered By: Lisa Wallis on 07-23-2024 Erythrocyte distribution width (RBC) [Entitic vol] 38.7 fL 35.1-43.9 [facility] Erythrocyte distribution width (RBC) [Ratio] 38.7 fl 35.1-43.9 [facility] Estimation of creatinine niru aranceOrdered By: Lisa Wallis on 07-23-2024 Estimated Creatinine Clearance Calc 77.39 ml/min 50-250 [facility] GFR/1.73 sq M.predicted jyoti g non-blacks MDRD (S/P/Bld) [Vol rate/Area]Ordered By: Lisa Wallis on 07-23-2024 Estimated GFR (MDRD) Non-Af Amer 93 >60 [facility] Comment on above: mL/min/1.73m2 CKD-EP I Creatinine Equation (2020) Glomerular filtration rate ( GFR) estimation/1.73 sq m using serum, plasma, or whole bOrdered By: Lisa Wallis on 07-23-2024 GFR/1.73 sq M.predicted among non-blacks MDRD (S/P/Bld) [Vol rate/Area] 93 mL/min/{1.73_m2} >60 [facility] Comment on above: mL/min/1.73m2 CKD-EP I Creatinine Equation (2020) Hematocrit Auto (Bld) [Volum e fraction]Ordered By: Lisa Wallis on 07-23-2024 Hematocrit (Bld) [Volume fraction] 40.4 % 40-54 [facility] Hemoglobin measurementOrdere d By: Lisa Wallis on 07-23-2024 Hemoglobin (Bld) [Mass/Vol] 13.9 g/dL 13.0-16.5 [facility] Immature granulocytes/100 WB C Auto (Bld)Ordered By: Lisa Wallis on 07-23-2024 Immature granulocytes/100 WBC (Bld) 0.700 % 0.0-0.9 [facility] Comment on above: IG% - Immature Granu locytes (promyelocytes, myelocytes and metamyelocytes) > 1% indicates that a LEFT SHIFT is Present. Laboratory - Chemistry and C hemistry - challengeOrdered By: Lisa Wallis on 07-23-2024 AST [Catalytic activity/Vol] 40 U/L High <38 [facility] Lymphocytes Auto (Unsp spec) [#/Vol]Ordered By: Lisa Wallis on 07-23-2024 Lymphocytes (Bld) [#/Vol] 0.56 10*3/uL Low 0.83-4.51 [facility] Lymphocytes/100 WBC Auto (Un sp spec)Ordered By: Lisa Wallis on 07-23-2024 Lymphocytes/100 WBC (Bld) 6.4 % Low 19-41 [facility] MCV (mean corpuscular volume ) determinationOrdered By: Lisa Wallis on 07-23-2024 MCV (RBC) [Entitic vol] 84.9 fL 80-94 [facility] Magnesiumon 07-23-2024 Magnesium [Mass/Vol] 1.9 mg/dL Normal 1.5-2.2 [facility] Comment on above: Performed By: #### L 501.5200, L100.0100, L500.4050 #### [facility] [address] [place] [address], [id number] Magnesium (Unsp spec) [Mass/ Vol]Ordered By: Andrea Daly on 07-23-2024 Magnesium [Mass/Vol] 1.9 mg/dL 1.5-2.2 [facility] Magnesium measurement (mass/ volume)Ordered By: Andrea Daly on 07-23-2024 Magnesium (Unsp spec) [Mass/Vol] 1.9 mg/dL 1.5-2.2 [facility] Mean corpuscular hemoglobin (MCH) determinationOrdered By: Lisa Wallis on 07-23-2024 MCH (RBC) [Entitic mass] 29.2 pg 27.0-32.0 [facility] Mean corpuscular hemoglobin concentration (MCHC) determinationOrdered By: Lisa Wallis on 07-23-2024 MCHC (RBC) [Mass/Vol] 34.4 g/dL 32-36 [facility] Mean platelet volume determi nationOrdered By: Lisa Wallis on 07-23-2024 Platelet mean volume (Bld) [Entitic vol] 9.4 fL 6.2-12.0 [facility] Monocyte percentageOrdered B y: Lisa Wallis on 07-23-2024 Monocytes/100 WBC (Bld) 3.6 % 0-10 [facility] Neutrophil percentageOrdered By: Lisa Wallis on 07-23-2024 Neutrophils/100 WBC (Bld) 89.2 % High 47-70 [facility] Nucleated red blood cell per centageOrdered By: Lisa Wallis on 07-23-2024 Nucleated RBC/100 WBC (Bld) [Ratio] 0 % 0-5 [facility] Phosphoruson 07-23-2024 Phosphate [Mass/Vol] 2.6 mg/dL Low 2.7-4.5 [facility] Comment on above: Performed By: #### L 501.2300 #### [facility] [address] [place] [address] [place], [address] Platelet countOrdered By: Jatinder Wallis on 07-23-2024 Platelets (Bld) [#/Vol] 173 10*3/uL 150-450 [facility] Potassium (Unsp spec) [Mass/ Vol]Ordered By: Lisa Wallis on 07-23-2024 Potassium [Moles/Vol] 4.3 mmol/L 3.3-5.1 [facility] Potassium measurement (mass/ volume)Ordered By: Lisa Wallis on 07-23-2024 Potassium (Unsp spec) [Mass/Vol] 4.3 mmol/L 3.3-5.1 [facility] RBC Auto (Bld) [#/Vol]Ordere d By: Lisa Wallis on 07-23-2024 RBC (Bld) [#/Vol] 4.76 10*6/uL 4.6-6.2 [facility] Serum creatinine measurement (mass/volume)Ordered By: Lisa Wallis on 07-23-2024 Creatinine [Mass/Vol] 1.02 mg/dL 0.70-1.20 [facility] Serum globulin measurementOr dered By: Lisa Wallis on 07-23-2024 Globulin (S) [Mass/Vol] 2.6 g/dL 2.2-4.2 [facility] Serum glucose measurement (m ass/volume)Ordered By: Lisa Wallis on 07-23-2024 Glucose [Mass/Vol] 174 mg/dL High 70-99 [facility] Serum or plasma alanine rodas otransferase (ALT) measurementOrdered By: Lisa Wallis on 07-23-2024 ALT [Catalytic activity/Vol] 57 U/L High <47 [facility] Serum or plasma albumin ginny urement (mass/volume)Ordered By: Lisa Wallis on 07-23-2024 Albumin [Mass/Vol] 4.2 g/dL 3.5-5.0 [facility] Serum or plasma albumin/glob ulin mass ratioOrdered By: Lisa Wallis on 07-23-2024 Albumin/Globulin [Mass ratio] 1.6 {ratio} 0.9-2.4 [facility] Serum or plasma alkaline yarelis sphatase measurementOrdered By: Lisa Wallis on 07-23-2024 ALP [Catalytic activity/Vol] 69 U/L 40-129 [facility] Serum or plasma calcium ginny urement (mass/volume)Ordered By: Lisa Wallis on 07-23-2024 Calcium [Mass/Vol] 9.1 mg/dL 7.6-11.0 [facility] Serum or plasma urea nitroge n measurement (mass/volume)Ordered By: Lisa Wallis on 07-23-2024 Urea nitrogen [Mass/Vol] 20 mg/dL High 4-19 [facility] Serum phosphorus measurement Ordered By: Andrea Daly on 07-23-2024 Phosphorus Level 2.6 mg/dL Low 2.7-4.5 [facility] Sodium levelOrdered By: Fritz Wallis on 07-23-2024 Sodium [Moles/Vol] 140 mmol/L 133-145 [facility] Total proteinOrdered By: Urbano Wallis on 07-23-2024 Protein [Mass/Vol] 6.8 g/dL 5.9-8.4 [facility] White blood cell (WBC) count Ordered By: Lisa Wallis on 07-23-2024 WBC (Bld) [#/Vol] 8.7 10*3/uL 4.4-11.0 [facility] 12 Lead EKGon 07-22-2024 12 Lead EKG [facility] [address] [place] [address] 12 Lead EKG 07/22/24 0129 MR#: [id number] Acct: [id number] Name: DANNY BEDOYA Rep #: [id number] : 1980 44 From: Alexy York MD Attending Dr: Dr. Andrea Daly MD Status : ADM IN Ordering Dr: Natalie Jeffery DO Date: 07/22/24 Location: [facility] Sex: M C Admitted: 07/22/24 Test Reason [...] Borderline ECG Confirmed by ALEXY YORK MD ([id number]), editor greeting card SHARON HANNAH ([id number]) on 07/23/2024 8:19:45 AM Referred By: Confirmed By: ALEXY YORK MD 07/23/24 0819 Date Alexy York MD CC: Dr. Lexi Barnes MD; Dr. Natalie Jeffery DO; Dr. Andrea Daly MD Signed Normal [facility] Absolute neutrophil countOrd ered By: Natalie Jeffery on 07-22-2024 Neutrophils (Bld) [#/Vol] 7.4 10*3/uL 2.0-7.7 [facility] Anion gap in Serum or Plasma Ordered By: Natalie Jeffery on 07-22-2024 Anion gap [Moles/Vol] 15 mmol/L 5-15 [facility] Arterial patency Wrist arter y --pre arterial punctureOrdered By: Lisa Wallis on 07-22-2024 Aleksandar Test Positive [facility] Arterial patency Wrist arter y --pre arterial punctureOrdered By: Natalie Jeffery on 07-22-2024 Aleksandar Test Positive [facility] Assessment of wrist artery p atency prior to arterial punctureOrdered By: Lisa Wallis on 07-22-2024 Arterial patency Wrist artery --pre arterial puncture Positive [facility] BUN/creatinine ratioOrdered By: Natalie Jeffery on 07-22-2024 Urea nitrogen/Creatinine [Mass ratio] 19.2 mg/mg 10-20 [facility] Base excess Calc (BldV) [Mol es/Vol]Ordered By: Lisa Wallis on 07-22-2024 Blood Gas Base Excess -3 mmol/L Low -2-2 [facility] Base excess Calc (BldV) [Mol es/Vol]Ordered By: Natalie Jeffery on 07-22-2024 Blood Gas Base Excess 3 mmol/L High -2-2 [facility] Basic Metabolic Profile (BMP )on 07-22-2024 BUN/CRE 19.2 RATIO Normal 10-20 [facility] Comment on above: Performed By: #### L 501.5200, L100.0100, L500.4050 #### [facility] [address] [place], [address] Calcium [Mass/Vol] 9.6 mg/dL Normal 7.6-11.0 [facility] Comment on above: Performed By: #### L 501.5200, L100.0100, L500.4050 #### [facility] [address] [place], [address] Chloride [Moles/Vol] 104 mmol/L Normal 98-108 [facility] Comment on above: Performed By: #### L 501.5200, L100.0100, L500.4050 #### [facility] [address] [place], [address] CO2 [Moles/Vol] 21.8 mmol/L Normal 21.0-32.0 [facility] Comment on above: Performed By: #### L 501.5200, L100.0100, L500.4050 #### [facility] [address] [place], [address] Creatinine [Mass/Vol] 1.21 mg/dL High 0.70-1.20 [facility] Comment on above: Performed By: #### L 501.5200, L100.0100, L500.4050 #### [facility] [address] [place], [address] ECRCL 110.15 ml/min Normal 50-250 [facility] Comment on above: Performed By: #### L 501.5200, L100.0100, L500.4050 #### [facility] [address] [place], [address] GAP 15 Normal 5-15 [facility] Comment on above: Performed By: #### L 501.5200, L100.0100, L500.4050 #### [facility] [address] [place], [address] GFR/1.73 sq M.predicted among non-blacks MDRD (S/P/Bld) [Vol rate/Area] 76 mL/min/{1.73_m2} Normal >60 [facility] Comment on above: Result Comment: mL/m in/1.73m2 CKD-EPI Creatinine Equation (2020) Performed By: #### L 501.5200, L100.0100, L500.4050 #### [facility] [address] [place], [address] Glucose [Mass/Vol] 94 mg/dL Normal 70-99 [facility] Comment on above: Performed By: #### L 501.5200, L100.0100, L500.4050 #### [facility] [address] [place], [address] Potassium [Moles/Vol] 4.1 mmol/L Normal 3.3-5.1 [facility] Comment on above: Performed By: #### L 501.5200, L100.0100, L500.4050 #### [facility] [address] [place], [address] Sodium [Moles/Vol] 141 mmol/L Normal 133-145 [facility] Comment on above: Performed By: #### L 501.5200, L100.0100, L500.4050 #### [facility] [address] [place], [address] Urea nitrogen [Mass/Vol] 23 mg/dL High 4-19 [facility] Comment on above: Performed By: #### L 501.5200, L100.0100, L500.4050 #### [facility] [address] [place], [address] Basophil percentageOrdered B y: Natalie Jeffery on 07-22-2024 Basophils/100 WBC (Bld) 0.7 % 0-1 [facility] Blood Gases by CPSon 025 ALEKSANDAR TEST Positive Normal [facility] Comment on above: Performed By: #### L 9000.0800 #### [facility] [address] [place], [address] Base excess Calc (Bld) [Moles/Vol] -3 mmol/L Low -2 to +2 [facility] Comment on above: Performed By: #### L 9000.0800 #### [facility] [address] [place], [address] Blood Gas Type ART Normal [facility] Comment on above: Performed By: #### L 9000.0800 #### [facility] [address] [place], [address] CO2 [Moles/Vol] 23 mmol/L Normal [facility] Comment on above: Performed By: #### L 9000.0800 #### [facility] [address] [place], [address] FI02 4.0 Normal [facility] Comment on above: Performed By: #### L 9000.0800 #### [facility] [address] [place], [address] HCO3 (Bld) [Moles/Vol] 22.1 mmol/L Normal 22-26 [facility] Comment on above: Performed By: #### L 9000.0800 #### [facility] [address] [place], [address] Mode Not entered Normal [facility] Comment on above: Performed By: #### L 9000.0800 #### [facility] [address] [place], [address] O2 Delivery Dev Cannula Normal [facility] Comment on above: Performed By: #### L 9000.0800 #### [facility] [address] [place], [address] pCO2 36.7 mmHg Normal 35-45 [facility] Comment on above: Performed By: #### L 9000.0800 #### [facility] [address] [place], [address] pH (Bld) 7.39 [pH] Normal 7.35-7.45 [facility] Comment on above: Performed By: #### L 9000.0800 #### [facility] [address] [place], [address] PO2 76 mmHG Normal 75-100 [facility] Comment on above: Performed By: #### L 9000.0800 #### [facility] [address] [place], [address] SITE L Radial Normal [facility] Comment on above: Performed By: #### L 9000.0800 #### [facility] [address] [place], [address] SO2 95 Normal 95-99 [facility] Comment on above: Performed By: #### L 9000.0800 #### [facility] [address] [place], [address] ALEKSANDAR TEST Positive Normal [facility] Comment on above: Performed By: #### L 9000.0800 ####[facility] [address] [place], [address] Base excess Calc (Bld) [Moles/Vol] 3 mmol/L High -2 to +2 [facility] Comment on above: Performed By: #### L 9000.0800 ####[facility] [address] [place], [address] Blood Gas Type ART Normal [facility] Comment on above: Performed By: #### L 9000.0800 ####[facility] [address] [place], [address] CO2 [Moles/Vol] 29 mmol/L Normal [facility] Comment on above: Performed By: #### L 9000.0800 ####[facility] [address] [place], [address] Comment Normal [facility] Comment on above: Result Comment: AVAP S 450vt 12rr 26maxP 16minP +8 30% Performed By: #### L 9000.0800 ####[facility] [address] [place], [address] FI02 30.0 Normal [facility] Comment on above: Performed By: #### L 9000.0800 ####[facility] [address] [place], [address] HCO3 (Bld) [Moles/Vol] 27.6 mmol/L High 22-26 [facility] Comment on above: Performed By: #### L 9000.0800 ####[facility] [address] [place], [address] Mode Not entered Normal [facility] Comment on above: Performed By: #### L 9000.0800 ####[facility] [address] [place], [address] O2 Delivery Dev BiPAP Normal [facility] Comment on above: Performed By: #### L 9000.0800 ####[facility] [address] [place], [address] pCO2 46.6 mmHg High 35-45 [facility] Comment on above: Performed By: #### L 9000.0800 ####[facility] [address] [place], [address] pH (Bld) 7.38 [pH] Normal 7.35-7.45 [facility] Comment on above: Performed By: #### L 9000.0800 ####[facility] [address] [place], [address] PO2 86 mmHG Normal 75-100 [facility] Comment on above: Performed By: #### L 9000.0800 ####[facility] [address] [place], [address] SITE L Radial Normal [facility] Comment on above: Performed By: #### L 9000.0800 ####[facility] [address] [place], [address] SO2 96 Normal 95-99 [facility] Comment on above: Performed By: #### L 9000.0800 ####[facility] [address] [place], [address] Blood base excess determinat ionOrdered By: Lisa Wallis on 07-22-2024 Base excess Calc (BldV) [Moles/Vol] -3 mmol/L Low -2-2 [facility] Blood bicarbonate measuremen tOrdered By: Lisa Wallis on 07-22-2024 Blood Gas Bicarbonate Actual 22.1 mmol/L [facility] HCO3 (Bld) [Moles/Vol] 22.1 mmol/L [facility] Blood bicarbonate measuremen tOrdered By: Natalie Jeffery on 07-22-2024 Blood Gas Bicarbonate Actual 27.6 mmol/L High [facility] CBC W/Diff, Automatedon 06-27 Absolute Lymph 1.75 X10 3/uL Normal 0.83-4.51 [facility] Comment on above: Performed By: #### L 501.5200, L100.0100, L500.4050 #### [facility] [address] [place], [address] Absolute Neut 7.4 X10 3/uL Normal 2.0-7.7 [facility] Comment on above: Performed By: #### L 501.5200, L100.0100, L500.4050 #### [facility] [address] [place], [address] Basophils/100 WBC (Bld) 0.7 % Normal 0-1 [facility] Comment on above: Performed By: #### L 501.5200, L100.0100, L500.4050 #### [facility] [address] [place], [address] Eosinophils/100 WBC (Bld) 4.4 % Normal 0-5 [facility] Comment on above: Performed By: #### L 501.5200, L100.0100, L500.4050 #### [facility] [address] [place], [address] Erythrocyte distribution width (RBC) [Ratio] 12.7 % Normal 11.6-14.6 [facility] Comment on above: Performed By: #### L 501.5200, L100.0100, L500.4050 #### [facility] [address] [place], [address] Hematocrit (Bld) [Volume fraction] 45.2 % Normal 40-54 [facility] Comment on above: Performed By: #### L 501.5200, L100.0100, L500.4050 #### [facility] [address] [place], [address] Hemoglobin (Bld) [Mass/Vol] 15.9 g/dL Normal 13.0-16.5 [facility] Comment on above: Performed By: #### L 501.5200, L100.0100, L500.4050 #### [facility] [address] [place], [address] IG% 0.600 Normal 0.0-0.9 [facility] Comment on above: Result Comment: IG% - Immature Granulocytes (promyelocytes, myelocytes and metamyelocytes) > 1% indicates that a LEFT SHIFT is Present. Performed By: #### L 501.5200, L100.0100, L500.4050 #### [facility] [address] [place], [address] Lymphocytes/100 WBC (Bld) 16.6 % Low 19-41 [facility] Comment on above: Performed By: #### L 501.5200, L100.0100, L500.4050 #### [facility] [address] [place], [address] MCH (RBC) [Entitic mass] 29.4 pg Normal 27.0-32.0 [facility] Comment on above: Performed By: #### L 501.5200, L100.0100, L500.4050 #### [facility] [address] [place], [address] MCHC (RBC) [Mass/Vol] 35.2 g/dL Normal 32-36 [facility] Comment on above: Performed By: #### L 501.5200, L100.0100, L500.4050 #### [facility] [address] [place], [address] MCV (RBC) [Entitic vol] 83.7 fL Normal 80-94 [facility] Comment on above: Performed By: #### L 501.5200, L100.0100, L500.4050 #### [facility] [address] [place], [address] Monocytes/100 WBC (Bld) 7.6 % Normal 0-10 [facility] Comment on above: Performed By: #### L 501.5200, L100.0100, L500.4050 #### [facility] [address] [place], [address] Neutrophils/100 WBC (Bld) 70.1 % High 47-70 [facility] Comment on above: Performed By: #### L 501.5200, L100.0100, L500.4050 #### [facility] [address] [place], [address] Nucleated RBC (Bld) [#/Vol] 0 10*3/uL Normal 0-5 [facility] Comment on above: Performed By: #### L 501.5200, L100.0100, L500.4050 #### [facility] [address] [place], [address] Platelet mean volume (Bld) [Entitic vol] 9.2 fL Normal 6.2-12.0 [facility] Comment on above: Performed By: #### L 501.5200, L100.0100, L500.4050 #### [facility] [address] [place], [address] Platelets (Bld) [#/Vol] 155 10*3/uL Normal 150-450 [facility] Comment on above: Performed By: #### L 501.5200, L100.0100, L500.4050 #### [facility] [address] [place], [address] RBC (Bld) [#/Vol] 5.40 10*6/uL Normal 4.6-6.2 [facility] Comment on above: Performed By: #### L 501.5200, L100.0100, L500.4050 #### [facility] [address] [place], [address] RDW SD 37.9 fl Normal 35.1-43.9 [facility] Comment on above: Performed By: #### L 501.5200, L100.0100, L500.4050 #### [facility] [address] [place], [address] WBC (Bld) [#/Vol] 10.5 10*3/uL Normal 4.4-11.0 [facility] Comment on above: Performed By: #### L 501.5200, L100.0100, L500.4050 #### [facility] [address] [place], [address] Carbon dioxide, total [Moles /volume] in Central venous bloodOrdered By: Natalie Jeffery on 07-22-2024 CO2 [Moles/Vol] 21.8 mmol/L 21.0-32.0 [facility] Chest 1 View (Portable)on Chest 1 View (Portable) [facility] Imaging Services [address] [place] [address] Chest 1 View (Portable) MR#: [id number] Acct: [id number] Name: DANNY BEDOYA Rep #: [id number] : 1980 M 44 From: Nathan Srinivasan MD PCP: Dr. Lexi Barnes MD Status: REG ER Study: Chest 1 View (Portable) Date of Exam: 07/22/24 Exam# [id number] Ordering Dr: Natalie Jeffery DO PROCEDURE: CHEST [...] No evidence of acute disease. Reading Location: [facility] CC: Dr. Lexi Barnes MD; Dr. Natalie Jeffery DO Rat Farmer: Signed Normal [facility] Chloride assayOrdered By: Oliverio Jeffery on 07-22-2024 Chloride [Moles/Vol] 104 mmol/L 98-108 [facility] Determination of fraction of inspired oxygenOrdered By: Lisa Wallis on 07-22-2024 Blood Gas Oxygen Percent 4.0 [facility] Determination of fraction of inspired oxygenOrdered By: Natalie Jeffery on 07-22-2024 Blood Gas Oxygen Percent 30.0 [facility] Emergency Department Summary on 07-22-2024 Emergency Department Summary [facility] Medical Records Department [address] [place] [address] Emergency Department Summary 07/22/24 MR#: [id number] Acct: [id number] Name: DANNY BEDOYA Rep #: [id number] : 1980 44 From: Natalie Jeffery DO PCP: Dr. Lexi Barnes MD Status:ADM IN Location: [place] [address] HPI History of Present Illness Chief Complaint: [...] Recent immobilization, Recent surgery or Recent travel 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 Normal [facility] Eosinophil percentageOrdered By: Natalie Jeffery on 07-22-2024 Eosinophils/100 WBC (Bld) 4.4 % 0-5 [facility] Erythrocyte distribution wid th ratioOrdered By: Natalie Jeffery on 07-22-2024 Erythrocyte distribution width (RBC) [Ratio] 12.7 % 11.6-14.6 [facility] Erythrocyte distribution wid th standard deviationOrdered By: Natalie Jeffery on 07-22-2024 Erythrocyte distribution width (RBC) [Entitic vol] 37.9 fL 35.1-43.9 [facility] Estimation of creatinine niru aranceOrdered By: Natalie Jeffery on 07-22-2024 Estimated Creatinine Clearance Calc 110.15 ml/min 50-250 [facility] GFR/1.73 sq M.predicted jyoti g non-blacks MDRD (S/P/Bld) [Vol rate/Area]Ordered By: Natalie Jeffery on 07-22-2024 Estimated GFR (MDRD) Non-Af Amer 76 >60 [facility] Comment on above: mL/min/1.73m2 CKD-EP I Creatinine Equation (2020) H AND P Exam - [facility] 07-22-2024 H&P Exam - Hospitalist [facility] Medical Records Department [address] [place] [address] H P Exam - Hospitalist 07/22/24 0310 MR#: [id number] Acct: [id number] Name: DANNY BEDOYA Rep #: [id number] : 1980 44 From: Lisa Jain DO PCP: Dr. Lexi Barnes MD Status:[facility] - General General Date of Admission: [...] complicated by Respiratory Insufficiency who re-presents to [facility] ER complaining of SOB. Mr. Bedoya reports his symptoms began approximately one day prior to admission with the sudden-onset of SOB and wheezing that progressively worsened throughout the day. 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 He also [...] is expected to extend beyond 2 midnights. 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 Normal [facility] Hematocrit Auto (Bld) [Volum e fraction]Ordered By: Natalie Jeffery on 07-22-2024 Hematocrit (Bld) [Volume fraction] 45.2 % 40-54 [facility] Hemoglobin measurementOrdere d By: Natalie Jeffery on 07-22-2024 Hemoglobin (Bld) [Mass/Vol] 15.9 g/dL 13.0-16.5 [facility] Immature granulocytes/100 WB C Auto (Bld)Ordered By: Natalie Jeffery on 07-22-2024 Immature granulocytes/100 WBC (Bld) 0.600 % 0.0-0.9 [facility] Comment on above: IG% - Immature Granu locytes (promyelocytes, myelocytes and metamyelocytes) > 1% indicates that a LEFT SHIFT is Present. Influenza virus A and B and SARS-CoV-2 (COVID-19) and Respiratory syncytial virus RNAOrdered By: Natalie Jeffery on 07-22-2024 SARS-CoV-2 (COVID-19) RNA DANA+probe Ql (Unsp spec) [facility] L499.0042on 07-22-2024 Trop T High Sen 12 ng/L Normal <=22 [facility] Comment on above: Performed By: #### L 501.5200, L100.0100, L500.4050 #### [facility] [address] [place], [address] L499.0043on 07-22-2024 Trop T High Sen 8 ng/L Normal <=22 [facility] Comment on above: Performed By: #### L 501.5200, L100.0100, L500.4050 #### [facility] [address] [place], [address] L501.4021on 07-22-2024 Trop T High Sen 10 ng/L Normal <=22 [facility] Comment on above: Performed By: #### L 501.4021 ####[facility] [address] [place], [address] Lymphocytes Auto (Unsp spec) [#/Vol]Ordered By: Natalie Jeffery on 07-22-2024 Lymphocytes (Bld) [#/Vol] 1.75 10*3/uL 0.83-4.51 [facility] Lymphocytes/100 WBC Auto (Un sp spec)Ordered By: Natalie Jeffery on 07-22-2024 Lymphocytes/100 WBC (Bld) 16.6 % Low 19-41 [facility] M100.678on 07-22-2024 M100.678 Pending SARS-CoV-2 (COVID 19) Negative INFLUENZA A Negative INFLUENZA B Negative RSV PCR Negative Normal [facility] Comment on above: Performed By: #### L 501.2300 #### [facility] [address] [place], [place], [address] MCV (mean corpuscular volume ) determinationOrdered By: Natalie Jeffery on 07-22-2024 MCV (RBC) [Entitic vol] 83.7 fL 80-94 [facility] Magnesiumon 07-22-2024 Magnesium [Mass/Vol] 1.6 mg/dL Normal 1.5-2.2 [facility] Comment on above: Performed By: #### L 501.5200 ####[facility] [address] [place], [place], [id number] Mean corpuscular hemoglobin (MCH) determinationOrdered By: Natalie Jeffery on 07-22-2024 MCH (RBC) [Entitic mass] 29.4 pg 27.0-32.0 [facility] Mean corpuscular hemoglobin concentration (MCHC) determinationOrdered By: Natalie Jeffery on 07-22-2024 MCHC (RBC) [Mass/Vol] 35.2 g/dL 32-36 [facility] Mean platelet volume determi nationOrdered By: Natalie Jeffery on 07-22-2024 Platelet mean volume (Bld) [Entitic vol] 9.2 fL 6.2-12.0 [facility] Measurement, pHOrdered By: nAita Wallis on 07-22-2024 pH (Unsp spec) 7.39 [pH] 7.35-7.45 [facility] Monocyte percentageOrdered B y: Natalie Jeffery on 07-22-2024 Monocytes/100 WBC (Bld) 7.6 % 0-10 [facility] Neutrophil percentageOrdered By: Natalie Jeffery on 07-22-2024 Neutrophils/100 WBC (Bld) 70.1 % High 47-70 [facility] No Panel InformationOrdered By: Lisa Wallis on 07-22-2024 Blood Gas Sample Site L Radial [facility] Blood Gas Specimen Type ART [facility] Blood Gas Vent Mode Not entered [facility] Oxygen Delivery Device Cannula [facility] No Panel InformationOrdered By: Natalie Jeffery on 07-22-2024 Blood Gas Clinical Comments See comment [facility] Comment on above: AVAPS 450vt 12rr 26m axP 16minP +8 30% Blood Gas Sample Site L Radial [facility] Blood Gas Specimen Type ART [facility] Blood Gas Vent Mode Not entered [facility] Oxygen Delivery Device BiPAP [facility] Troponin T High Sensitivity 10 ng/L <22 [facility] Nucleated red blood cell per centageOrdered By: Natalie Jeffery on 07-22-2024 Nucleated RBC/100 WBC (Bld) [Ratio] 0 % 0-5 [facility] Oxygen saturation measuremen tOrdered By: Lisa Wallis on 07-22-2024 Blood Gas Oxygen Saturation 95 % 95-99 [facility] Oxygen saturation measuremen tOrdered By: Natalie Jeffery on 07-22-2024 Blood Gas Oxygen Saturation 96 % 95-99 [facility] Partial pressure of carbon d ioxide measurementOrdered By: Lisa Wallis on 07-22-2024 Arterial Blood Partial Pressure CO2 36.7 mmHg 35-45 [facility] Partial pressure of carbon d ioxide measurementOrdered By: Natalie Jeffery on 07-22-2024 Arterial Blood Partial Pressure CO2 46.6 mmHg High 35-45 [facility] Partial pressure of oxygen m easurementOrdered By: Lisa Wallis on 07-22-2024 Arterial Blood Partial Pressure O2 76 mmHG 75-100 [facility] Partial pressure of oxygen m easurementOrdered By: Natalie Jeffery on 07-22-2024 Arterial Blood Partial Pressure O2 86 mmHG 75-100 [facility] Phosphoruson 07-22-2024 Phosphate [Mass/Vol] 1.8 mg/dL Low 2.7-4.5 [facility] Comment on above: Performed By: #### L 501.9520, L501.2300 #### [facility] [address] [place], [address] Platelet countOrdered By: Oliverio Jeffery on 07-22-2024 Platelets (Bld) [#/Vol] 155 10*3/uL 150-450 [facility] Potassium (Unsp spec) [Mass/ Vol]Ordered By: Natalie Jeffery on 07-22-2024 Potassium [Moles/Vol] 4.1 mmol/L 3.3-5.1 [facility] RBC Auto (Bld) [#/Vol]Ordere d By: Natalie Jeffery on 07-22-2024 RBC (Bld) [#/Vol] 5.40 10*6/uL 4.6-6.2 [facility] RESPIRATORY PANEL MOLECULARo n 07-22-2024 [...] Not Detected RSV B Not Detected Normal [facility] Comment on above: Performed By: #### L 501.6757 #### [facility] [facility] [address] [place] [address], [id number] Respiratory pathogens DNA an d RNA panel DANA+probe (Resp)Ordered By: Lisa Wallis on 07-22-2024 Respiratory Panel (PCR) [facility] Respiratory pathogens detect ion panel by molecular detection methodOrdered By: Lisa Wallis on 07-22-2024 Respiratory pathogens DNA and RNA panel DANA+probe (Resp) [facility] Serum creatinine measurement (mass/volume)Ordered By: Natalie Jeffery on 07-22-2024 Creatinine [Mass/Vol] 1.21 mg/dL High 0.70-1.20 [facility] Serum glucose measurement (m ass/volume)Ordered By: Natalie Jeffery on 07-22-2024 Glucose [Mass/Vol] 94 mg/dL 70-99 [facility] Serum or plasma calcium ginny urement (mass/volume)Ordered By: Natalie Jeffery on 07-22-2024 Calcium [Mass/Vol] 9.6 mg/dL 7.6-11.0 [facility] Serum or plasma urea nitroge n measurement (mass/volume)Ordered By: Natalie Jeffery on 07-22-2024 Urea nitrogen [Mass/Vol] 23 mg/dL High 4-19 [facility] Sodium levelOrdered By: Natalie Jeffery on 07-22-2024 Sodium [Moles/Vol] 141 mmol/L 133-145 [facility] TSH DL <= 0.005 mIU/L QnOrde red By: Lisa Wallis on 07-22-2024 Thyroid Stimulating Hormone (TSH) 0.594 uIU/mL 0.300-4.20 0 [facility] TSH Qn 0.594 uIU/mL 0.300-4.20 0 [facility] Thyroid Stim Hormone (TSH)on 07-22-2024 TSH 0.594 uIU/mL Normal 0.300-4.20 0 [facility] Comment on above: Performed By: #### L 501.9520, L501.2300 #### [facility] [address] [place], [address] Total carbon dioxide measure mentOrdered By: Lisa Wallis on 07-22-2024 Blood Gas Total CO2 23 mmol/L [facility] CO2 [Moles/Vol] 23 mmol/L [facility] Total carbon dioxide measure mentOrdered By: Natalie Jeffery on 07-22-2024 Blood Gas Total CO2 29 mmol/L [facility] Troponin T.cardiac High sens itivity method [Mass/Vol]Ordered By: Natalie Jeffery on 07-22-2024 Troponin T High Sensitivity 4 Hour 8 ng/L <22 [facility] Troponin T High Sensitivity 2 Hour 12 ng/L <22 [facility] Troponin T.cardiac [Mass/vol ume] in Serum or Plasma by High sensitivity methodOrdered By: Natalie Jeffery on 07-22-2024 Troponin T.cardiac High sensitivity method [Mass/Vol] 8 ng/L <22 [facility] Troponin T.cardiac High sensitivity method [Mass/Vol] 12 ng/L <22 [facility] White blood cell (WBC) count Ordered By: Natalie Jeffery on 07-22-2024 WBC (Bld) [#/Vol] 10.5 10*3/uL 4.4-11.0 [facility] pH (Unsp spec)Ordered By: Jatinder Wallis on 07-22-2024 Blood Gas pH 7.39 7.35-7.45 [facility] pH (Unsp spec)Ordered By: Oliverio Jeffery on 07-22-2024 Blood Gas pH 7.38 7.35-7.45 [facility] Absolute lymphocyte countOrd ered By: Lisa Wallis on 07-06-2024 Lymphocytes Auto (Unsp spec) [#/Vol] 0.51 10*3/uL Low 0.83-4.51 [facility] Absolute neutrophil countOrd ered By: Lisa Wallis on 07-06-2024 Neutrophils (Bld) [#/Vol] 4.9 10*3/uL 2.0-7.7 [facility] Anion gap in Serum or Plasma Ordered By: Lisa Wallis on 07-06-2024 Anion gap [Moles/Vol] 16 mmol/L High 5-15 [facility] Automated lymphocyte count a s percentage of total leukocytesOrdered By: Lisa Wallis on 07-06-2024 Lymphocytes/100 WBC Auto (Unsp spec) 9.2 % Low 19-41 [facility] BUN/creatinine ratioOrdered By: Lisa Wallis on 07-06-2024 Urea nitrogen/Creatinine [Mass ratio] 18.2 mg/mg 10-20 [facility] Base excess Calc (BldV) [Mol es/Vol]Ordered By: Lisa Wallis on 07-06-2024 Venous Blood Base Excess -1 mmol/L -1.0-3.5 [facility] Basophil percentageOrdered B y: Lisa Wallis on 07-06-2024 Basophils/100 WBC (Bld) 0.2 % 0-1 [facility] Bilirubin, totalOrdered By: Lisa Wallis on 07-06-2024 Bilirubin [Mass/Vol] 1.28 mg/dL 0.00-1.30 [facility] CBC W/Diff, Automatedon 06-26 Absolute Lymph 0.51 X10 3/uL Low 0.83-4.51 [facility] Comment on above: Performed By: #### L 100.0100, L501.2300, L300.3900, L500.4050 ####[facility] [address] [place], [address] Absolute Neut 4.9 X10 3/uL Normal 2.0-7.7 [facility] Comment on above: Performed By: #### L 100.0100, L501.2300, L300.3900, L500.4050 ####[facility] [address] [place], [address] Basophils/100 WBC (Bld) 0.2 % Normal 0-1 [facility] Comment on above: Performed By: #### L 100.0100, L501.2300, L300.3900, L500.4050 ####[facility] [address] [place], [address] Eosinophils/100 WBC (Bld) 0.2 % Normal 0-5 [facility] Comment on above: Performed By: #### L 100.0100, L501.2300, L300.3900, L500.4050 ####[facility] [address] [place], [address] Erythrocyte distribution width (RBC) [Ratio] 12.6 % Normal 11.6-14.6 [facility] Comment on above: Performed By: #### L 100.0100, L501.2300, L300.3900, L500.4050 ####[facility] [address] [place], [address] Hematocrit (Bld) [Volume fraction] 46.1 % Normal 40-54 [facility] Comment on above: Performed By: #### L 100.0100, L501.2300, L300.3900, L500.4050 ####[facility] [address] [place], [address] Hemoglobin (Bld) [Mass/Vol] 15.9 g/dL Normal 13.0-16.5 [facility] Comment on above: Performed By: #### L 100.0100, L501.2300, L300.3900, L500.4050 ####[facility] [address] [place], [address] IG% 0.500 Normal 0.0-0.9 [facility] Comment on above: Result Comment: IG% - Immature Granulocytes (promyelocytes, myelocytes and metamyelocytes) > 1% indicates that a LEFT SHIFT is Present. Performed By: #### L 100.0100, L501.2300, L300.3900, L500.4050 ####[facility] [address] [place], [address] Lymphocytes/100 WBC (Bld) 9.2 % Low 19-41 [facility] Comment on above: Performed By: #### L 100.0100, L501.2300, L300.3900, L500.4050 ####[facility] [address] [place], [address] MCH (RBC) [Entitic mass] 29.2 pg Normal 27.0-32.0 [facility] Comment on above: Performed By: #### L 100.0100, L501.2300, L300.3900, L500.4050 ####[facility] [address] [place], [address] MCHC (RBC) [Mass/Vol] 34.5 g/dL Normal 32-36 [facility] Comment on above: Performed By: #### L 100.0100, L501.2300, L300.3900, L500.4050 ####[facility] [address] [place], [address] MCV (RBC) [Entitic vol] 84.6 fL Normal 80-94 [facility] Comment on above: Performed By: #### L 100.0100, L501.2300, L300.3900, L500.4050 ####[facility] [address] [place], [address] Monocytes/100 WBC (Bld) 1.1 % Normal 0-10 [facility] Comment on above: Performed By: #### L 100.0100, L501.2300, L300.3900, L500.4050 ####[facility] [address] [place], [address] Neutrophils/100 WBC (Bld) 88.8 % High 47-70 [facility] Comment on above: Performed By: #### L 100.0100, L501.2300, L300.3900, L500.4050 ####[facility] [address] [place], [address] Nucleated RBC (Bld) [#/Vol] 0 10*3/uL Normal 0-5 [facility] Comment on above: Performed By: #### L 100.0100, L501.2300, L300.3900, L500.4050 ####[facility] [address] [place], [address] Platelet mean volume (Bld) [Entitic vol] 9.1 fL Normal 6.2-12.0 [facility] Comment on above: Performed By: #### L 100.0100, L501.2300, L300.3900, L500.4050 ####[facility] [address] [place], [address] Platelets (Bld) [#/Vol] 203 10*3/uL Normal 150-450 [facility] Comment on above: Performed By: #### L 100.0100, L501.2300, L300.3900, L500.4050 ####[facility] [address] [place], [address] RBC (Bld) [#/Vol] 5.45 10*6/uL Normal 4.6-6.2 [facility] Comment on above: Performed By: #### L 100.0100, L501.2300, L300.3900, L500.4050 ####[facility] [address] [place], [address] RDW SD 38.1 fl Normal 35.1-43.9 [facility] Comment on above: Performed By: #### L 100.0100, L501.2300, L300.3900, L500.4050 ####[facility] [address] [place], [address] WBC (Bld) [#/Vol] 5.5 10*3/uL Normal 4.4-11.0 [facility] Comment on above: Performed By: #### L 100.0100, L501.2300, L300.3900, L500.4050 ####[facility] [address] [place], [address] CO2 (BldV) [Moles/Vol]Ordere d By: Lisa Wallis on 07-06-2024 CO2 [Moles/Vol] 24 mmol/L 23-33 [facility] CO2 (BldV) [Partial pressure ]Ordered By: Lisa Wallis on 07-06-2024 Bed Mix Venous Bld PCO2 at Pat Temp 36.2 mmHg Low 41-51 [facility] Carbon dioxide, total [Moles /volume] in Central venous bloodOrdered By: Lisa Wallis on 07-06-2024 CO2 [Moles/Vol] 17.9 mmol/L Low 21.0-32.0 [facility] Chloride assayOrdered By: Jatinder Wallis on 07-06-2024 Chloride [Moles/Vol] 103 mmol/L 98-108 [facility] Comprehensive Metabolic Prof ilon 07-06-2024 Albumin [Mass/Vol] 4.6 g/dL Normal 3.5-5.0 [facility] Comment on above: Performed By: #### L 100.0100, L501.2300, L300.3900, L500.4050 ####[facility] [address] [place], [address] Albumin/Globulin [Mass ratio] 1.5 {ratio} Normal 0.9-2.4 [facility] Comment on above: Performed By: #### L 100.0100, L501.2300, L300.3900, L500.4050 ####[facility] [address] [place], [address] ALK PHOS 81 U/L Normal 40-129 [facility] Comment on above: Performed By: #### L 100.0100, L501.2300, L300.3900, L500.4050 ####[facility] [address] [place], [address] ALT [Catalytic activity/Vol] 23 U/L Normal <=46 [facility] Comment on above: Performed By: #### L 100.0100, L501.2300, L300.3900, L500.4050 ####[facility] [address] [place], [address] AST [Catalytic activity/Vol] 28 U/L Normal <=37 [facility] Comment on above: Performed By: #### L 100.0100, L501.2300, L300.3900, L500.4050 ####[facility] [address] [place], [address] Bilirubin [Mass/Vol] 1.28 mg/dL Normal 0.00-1.30 [facility] Comment on above: Performed By: #### L 100.0100, L501.2300, L300.3900, L500.4050 ####[facility] [address] [place], [address] BUN/CRE 18.2 RATIO Normal 10-20 [facility] Comment on above: Performed By: #### L 100.0100, L501.2300, L300.3900, L500.4050 ####[facility] [address] [place], [address] Calcium [Mass/Vol] 9.5 mg/dL Normal 7.6-11.0 [facility] Comment on above: Performed By: #### L 100.0100, L501.2300, L300.3900, L500.4050 ####[facility] [address] [place], [address] Chloride [Moles/Vol] 103 mmol/L Normal 98-108 [facility] Comment on above: Performed By: #### L 100.0100, L501.2300, L300.3900, L500.4050 ####[facility] [address] [place], [address] CO2 [Moles/Vol] 17.9 mmol/L Low 21.0-32.0 [facility] Comment on above: Performed By: #### L 100.0100, L501.2300, L300.3900, L500.4050 ####[facility] [address] [place], [address] Creatinine [Mass/Vol] 1.01 mg/dL Normal 0.70-1.20 [facility] Comment on above: Performed By: #### L 100.0100, L501.2300, L300.3900, L500.4050 ####[facility] [address] [place], [address] ECRCL 78.15 ml/min Normal 50-250 [facility] Comment on above: Performed By: #### L 100.0100, L501.2300, L300.3900, L500.4050 ####[facility] [address] [place], [address] GAP 16 High 5-15 [facility] Comment on above: Performed By: #### L 100.0100, L501.2300, L300.3900, L500.4050 ####[facility] [address] [place], [address] GFR/1.73 sq M.predicted among non-blacks MDRD (S/P/Bld) [Vol rate/Area] 94 mL/min/{1.73_m2} Normal >60 [facility] Comment on above: Result Comment: mL/m in/1.73m2 CKD-EPI Creatinine Equation (2020) Performed By: #### L 100.0100, L501.2300, L300.3900, L500.4050 ####[facility] [address] [place], [address] Globulin (S) [Mass/Vol] 3.0 g/dL Normal 2.2-4.2 [facility] Comment on above: Performed By: #### L 100.0100, L501.2300, L300.3900, L500.4050 ####[facility] [address] [place], [address] Glucose [Mass/Vol] 169 mg/dL High 70-99 [facility] Comment on above: Performed By: #### L 100.0100, L501.2300, L300.3900, L500.4050 ####[facility] [address] [place], [address] Potassium [Moles/Vol] 4.0 mmol/L Normal 3.3-5.1 [facility] Comment on above: Performed By: #### L 100.0100, L501.2300, L300.3900, L500.4050 ####[facility] [address] [place], [address] Sodium [Moles/Vol] 136 mmol/L Normal 133-145 [facility] Comment on above: Performed By: #### L 100.0100, L501.2300, L300.3900, L500.4050 ####[facility] [address] [place], [address] T PROT 7.6 g/dL Normal 5.9-8.4 [facility] Comment on above: Performed By: #### L 100.0100, L501.2300, L300.3900, L500.4050 ####[facility] [address] [place], [place], [address] Urea nitrogen [Mass/Vol] 18 mg/dL Normal 4-19 [facility] Comment on above: Performed By: #### L 100.0100, L501.2300, L300.3900, L500.4050 ####[facility] [address] [place], [address] Determination of fraction of inspired oxygenOrdered By: Lisa Wallis on 07-06-2024 Blood Gas Oxygen Percent 2.0 [facility] Eosinophil percentageOrdered By: Lisa Wallis on 07-06-2024 Eosinophils/100 WBC (Bld) 0.2 % 0-5 [facility] Erythrocyte distribution wid th ratioOrdered By: Lisa Wallis on 07-06-2024 Erythrocyte distribution width (RBC) [Ratio] 12.6 % 11.6-14.6 [facility] Erythrocyte distribution wid th standard deviationOrdered By: Lisa Wallis on 07-06-2024 Erythrocyte distribution width (RBC) [Entitic vol] 38.1 fL 35.1-43.9 [facility] Erythrocyte distribution width (RBC) [Ratio] 38.1 fl 35.1-43.9 [facility] Estimation of creatinine niru aranceOrdered By: Lisa Wallis on 07-06-2024 Estimated Creatinine Clearance Calc 78.15 ml/min 50-250 [facility] GFR/1.73 sq M.predicted jyoti g non-blacks MDRD (S/P/Bld) [Vol rate/Area]Ordered By: Lisa Wallis on 07-06-2024 Estimated GFR (MDRD) Non-Af Amer 94 >60 [facility] Comment on above: mL/min/1.73m2 CKD-EP I Creatinine Equation (2020) Glomerular filtration rate ( GFR) estimation/1.73 sq m using serum, plasma, or whole bOrdered By: Lisa Wallis on 07-06-2024 GFR/1.73 sq M.predicted among non-blacks MDRD (S/P/Bld) [Vol rate/Area] 94 mL/min/{1.73_m2} >60 [facility] Comment on above: mL/min/1.73m2 CKD-EP I Creatinine Equation (2020) H AND P Exam - [facility] 07-06-2024 H&P Exam - Hospitalist [facility] Medical Records Department [address] [place] [address] H P Exam - Hospitalist 07/06/24 0218 MR#: [id number] Acct: [id number] Name: DANNY BEDOYA Rep #: [id number] : 1980 44 From: Lisa Jain DO PCP: Dr. Lexi Barnes MD Status:ADM IN Location: [facility] [id number] [facility] - General General Date of Admission: 07/06/24 [...] allergy to lisinopril (angioedema), who presents to [facility] ER complaining of shortness of breath [...] is expected to extend beyond 2 midnights. 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 Normal [facility] Hematocrit Auto (Bld) [Volum e fraction]Ordered By: Lisa Wallis on 07-06-2024 Hematocrit (Bld) [Volume fraction] 46.1 % 40-54 [facility] Hemoglobin measurementOrdere d By: Lisa Wallis on 07-06-2024 Hemoglobin (Bld) [Mass/Vol] 15.9 g/dL 13.0-16.5 [facility] Immature granulocytes/100 WB C Auto (Bld)Ordered By: Lisa Wallis on 07-06-2024 Immature granulocytes/100 WBC (Bld) 0.500 % 0.0-0.9 [facility] Comment on above: IG% - Immature Granu locytes (promyelocytes, myelocytes and metamyelocytes) > 1% indicates that a LEFT SHIFT is Present. International normalized rat io (INR) calculationOrdered By: Lisa Wallis on 07-06-2024 INR Coag (Bld) [Relative time] 1.1 {INR} [facility] - Chemistry and C hemistry - challengeOrdered By: Lisa Wallis on 07-06-2024 AST [Catalytic activity/Vol] 28 U/L <38 [facility] Lymphocytes Auto (Unsp spec) [#/Vol]Ordered By: Lisa Wallis on 07-06-2024 Lymphocytes (Bld) [#/Vol] 0.51 10*3/uL Low 0.83-4.51 [facility] Lymphocytes/100 WBC Auto (Un sp spec)Ordered By: Lisa aWllis on 07-06-2024 Lymphocytes/100 WBC (Bld) 9.2 % Low 19-41 [facility] MCV (mean corpuscular volume ) determinationOrdered By: Lisa Wallis on 07-06-2024 MCV (RBC) [Entitic vol] 84.6 fL 80-94 [facility] Mean corpuscular hemoglobin (MCH) determinationOrdered By: Lisa Wallis on 07-06-2024 MCH (RBC) [Entitic mass] 29.2 pg 27.0-32.0 [facility] Mean corpuscular hemoglobin concentration (MCHC) determinationOrdered By: Lisa Wallis on 07-06-2024 MCHC (RBC) [Mass/Vol] 34.5 g/dL 32-36 [facility] Mean platelet volume determi nationOrdered By: Lisa Wallis on 07-06-2024 Platelet mean volume (Bld) [Entitic vol] 9.1 fL 6.2-12.0 [facility] Monocyte percentageOrdered B y: Lisa aWllis on 07-06-2024 Monocytes/100 WBC (Bld) 1.1 % 0-10 [facility] Neutrophil percentageOrdered By: Lisa Wallis on 07-06-2024 Neutrophils/100 WBC (Bld) 88.8 % High 47-70 [facility] No Panel InformationOrdered By: Lisa Wallis on 07-06-2024 Blood Gas Sample Site Not entered [facility] Blood Gas Specimen Type DARON [facility] Oxygen Delivery Device Cannula [facility] Nucleated red blood cell per centageOrdered By: Lisa Wallis on 07-06-2024 Nucleated RBC/100 WBC (Bld) [Ratio] 0 % 0-5 [facility] Oxygen (BldV) [Partial press ure]Ordered By: Lisa Wallis on 07-06-2024 Venous Blood Partial Pressure O2 67 mmHg High 25-40 [facility] Phosphoruson 07-06-2024 Phosphate [Mass/Vol] 2.3 mg/dL Low 2.7-4.5 [facility] Comment on above: Performed By: #### L 100.0100, L501.2300, L300.3900, L500.4050 ####[facility] [address] [place], [address] Platelet countOrdered By: Jatinder Wallis on 07-06-2024 Platelets (Bld) [#/Vol] 203 10*3/uL 150-450 [facility] Potassium (Unsp spec) [Mass/ Vol]Ordered By: Lisa Wallis on 07-06-2024 Potassium [Moles/Vol] 4.0 mmol/L 3.3-5.1 [facility] Potassium measurement (mass/ volume)Ordered By: Lisa Wallis on 07-06-2024 Potassium (Unsp spec) [Mass/Vol] 4.0 mmol/L 3.3-5.1 [facility] Prothrombin Time w/INRon INR Coag (PPP) [Relative time] 1.1 {INR} Normal [facility] Comment on above: Performed By: #### L 100.0100, L501.2300, L300.3900, L500.4050 ####[facility] [address] [place], [address] PT Coag (PPP) [Time] 14.3 s Normal 11.7-14.9 [facility] Comment on above: Performed By: #### L 100.0100, L501.2300, L300.3900, L500.4050 ####[facility] [address] [place], [address] Prothrombin timeOrdered By: Lisa Wallis on 07-06-2024 PT Coag (PPP) [Time] 14.3 s 11.7-14.9 [facility] RBC Auto (Bld) [#/Vol]Ordere d By: Lisa Wallis on 07-06-2024 RBC (Bld) [#/Vol] 5.45 10*6/uL 4.6-6.2 [facility] Serum creatinine measurement (mass/volume)Ordered By: Lisa Wallis on 07-06-2024 Creatinine [Mass/Vol] 1.01 mg/dL 0.70-1.20 [facility] Serum globulin measurementOr dered By: Lisa Wallis on 07-06-2024 Globulin (S) [Mass/Vol] 3.0 g/dL 2.2-4.2 [facility] Serum glucose measurement (m ass/volume)Ordered By: Lisa Wallis on 07-06-2024 Glucose [Mass/Vol] 169 mg/dL High 70-99 [facility] Serum or plasma alanine rodas otransferase (ALT) measurementOrdered By: Lisa Wallis on 07-06-2024 ALT [Catalytic activity/Vol] 23 U/L <47 [facility] Serum or plasma albumin ginny urement (mass/volume)Ordered By: Lisa Wallis on 07-06-2024 Albumin [Mass/Vol] 4.6 g/dL 3.5-5.0 [facility] Serum or plasma albumin/glob ulin mass ratioOrdered By: Lisa Wallis on 07-06-2024 Albumin/Globulin [Mass ratio] 1.5 {ratio} 0.9-2.4 [facility] Serum or plasma alkaline yarelis sphatase measurementOrdered By: Lisa Wallis on 07-06-2024 ALP [Catalytic activity/Vol] 81 U/L 40-129 [facility] Serum or plasma calcium ginny urement (mass/volume)Ordered By: Lisa Wallis on 07-06-2024 Calcium [Mass/Vol] 9.5 mg/dL 7.6-11.0 [facility] Serum or plasma urea nitroge n measurement (mass/volume)Ordered By: Lisa Wallis on 07-06-2024 Urea nitrogen [Mass/Vol] 18 mg/dL 4-19 [facility] Serum phosphorus measurement Ordered By: Lisa Wallis on 07-06-2024 Phosphorus Level 2.3 mg/dL Low 2.7-4.5 [facility] Sodium levelOrdered By: Fritz Wallis on 07-06-2024 Sodium [Moles/Vol] 136 mmol/L 133-145 [facility] Thyroid Stim Hormone (TSH)on 07-06-2024 TSH 2.050 uIU/mL Normal 0.300-4.20 0 [facility] Comment on above: Performed By: #### L 501.5200, L100.0100, L500.4050 #### [facility] [address] [place], [address] Total proteinOrdered By: Urbano esteves Bimal on 07-06-2024 Protein [Mass/Vol] 7.6 g/dL 5.9-8.4 [facility] Venous Blood Gason Blood Gas Type DARON Normal [facility] Comment on above: Performed By: #### L 501.2300 #### [facility] [address] [place], [address] CO2 [Moles/Vol] 24 mmol/L Normal 23-33 [facility] Comment on above: Performed By: #### L 501.2300 #### [facility] [address] [place], [address] FI02 2.0 Normal [facility] Comment on above: Performed By: #### L 501.2300 #### [facility] [address] [place], [address] HCO3 (Bld) [Moles/Vol] 23 mmol/L Normal 22-[address] [facility] Comment on above: Performed By: #### L 501.2300 #### [facility] [address] [place], [address] O2 Delivery Dev Cannula Normal [facility] Comment on above: Performed By: #### L 501.2300 #### [facility] [address] [place], [address] SITE Not entered Normal [facility] Comment on above: Performed By: #### L 501.2300 #### [facility] [address] [place], [address] VBG BE -1 mmol/L Normal -1.0-3.5 [facility] Comment on above: Performed By: #### L 501.2300 #### [facility] [address] [place], [address] VBG pCO2 36.2 mmHg Low 41-51 [facility] Comment on above: Performed By: #### L 501.2300 #### [facility] [address] [place], [address] VBG pH 7.42 Normal 7.32-7.42 [facility] Comment on above: Performed By: #### L 501.2300 #### [facility] [address] [place], [address] VBG PO2 67 mmHg High 25-40 [facility] Comment on above: Performed By: #### L 501.2300 #### [facility] [address] [place], [address] VBG SO2 93 High 50-70 [facility] Comment on above: Performed By: #### L 501.2300 #### [facility] [address] [place], [address] Venous blood base excess mary surementOrdered By: Lisa Wallis on 07-06-2024 Base excess Calc (BldV) [Moles/Vol] -1 mmol/L -1.0-3.5 [facility] Venous blood bicarbonate mary surementOrdered By: Lisa Wallis on 07-06-2024 HCO3 (Bld) [Moles/Vol] 23 mmol/L 22-[address] [facility] Venous blood oxygen saturati on measurementOrdered By: Lisa Wallis on 07-06-2024 Oxygen saturation in Blood 93 % High 50-70 [facility] Venous blood pH measurementO rdered By: Lisa Wallis on 07-06-2024 pH (BldV) 7.42 [pH] 7.32-7.42 [facility] Venous blood partial pressur e of carbon dioxide measurementOrdered By: Lisa Wallis on 07-06-2024 CO2 (BldV) [Partial pressure] 36.2 mm[Hg] Low 41-51 [facility] Venous blood partial pressur e of oxygen measurementOrdered By: Lisa Wallis on 07-06-2024 Oxygen (BldV) [Partial pressure] 67 mm[Hg] High 25-40 [facility] White blood cell (WBC) count Ordered By: Lisa Wallis on 07-06-2024 WBC (Bld) [#/Vol] 5.5 10*3/uL 4.4-11.0 [facility] pH (BldV)Ordered By: Lisa arriaga on 07-06-2024 Venous Blood pH 7.42 7.32-7.42 [facility] Absolute neutrophil countOrd ered By: Jam Jiang on 07-05-2024 Neutrophils (Bld) [#/Vol] 5.3 10*3/uL 2.0-7.7 [facility] Anion gap in Serum or Plasma Ordered By: Jam Jiang on 07-05-2024 Anion gap [Moles/Vol] 15 mmol/L 09-09 [facility] BUN/creatinine ratioOrdered By: Jam Jiang on 07-05-2024 Urea nitrogen/Creatinine [Mass ratio] 17.7 mg/mg 02-14 [facility] Basic Metabolic Profile (BMP )on 07-05-2024 BUN/CRE 17.7 RATIO Normal 02-14 [facility] Comment on above: Performed By: #### L 501.5200, L100.0100, L500.4050 #### [facility] [address] [place], [address] Calcium [Mass/Vol] 9.6 mg/dL Normal 7.6-11.0 [facility] Comment on above: Performed By: #### L 501.5200, L100.0100, L500.4050 #### [facility] [address] [place], [address] Chloride [Moles/Vol] 103 mmol/L Normal 98-108 [facility] Comment on above: Performed By: #### L 501.5200, L100.0100, L500.4050 #### [facility] [address] [place], [address] CO2 [Moles/Vol] 21.0 mmol/L Normal 21.0-32.0 [facility] Comment on above: Performed By: #### L 501.5200, L100.0100, L500.4050 #### [facility] [address] [place], [address] Creatinine [Mass/Vol] 1.00 mg/dL Normal 0.70-1.20 [facility] Comment on above: Performed By: #### L 501.5200, L100.0100, L500.4050 #### [facility] [address] [place], [address] GAP 15 Normal 5-15 [facility] Comment on above: Performed By: #### L 501.5200, L100.0100, L500.4050 #### [facility] [address] [place], [address] GFR/1.73 sq M.predicted among non-blacks MDRD (S/P/Bld) [Vol rate/Area] 95 mL/min/{1.73_m2} Normal >60 [facility] Comment on above: Result Comment: mL/m in/1.73m2 CKD-EPI Creatinine Equation (2020) Performed By: #### L 501.5200, L100.0100, L500.4050 #### [facility] [address] [place], [address] Glucose [Mass/Vol] 102 mg/dL High 70-99 [facility] Comment on above: Performed By: #### L 501.5200, L100.0100, L500.4050 #### [facility] [address] [place], [address] Potassium [Moles/Vol] 3.8 mmol/L Normal 3.3-5.1 [facility] Comment on above: Performed By: #### L 501.5200, L100.0100, L500.4050 #### [facility] [address] [place], [address] Sodium [Moles/Vol] 139 mmol/L Normal 133-145 [facility] Comment on above: Performed By: #### L 501.5200, L100.0100, L500.4050 #### [facility] [address] [place], [address] Urea nitrogen [Mass/Vol] 18 mg/dL Normal 4-19 [facility] Comment on above: Performed By: #### L 501.5200, L100.0100, L500.4050 #### [facility] [address] [place], [address] Basophil percentageOrdered B y: Jam Jiang on 07-05-2024 Basophils/100 WBC (Bld) 1.1 % High 0-1 [facility] CBC W/Diff, Automatedon 06-26-2024 Absolute Lymph 1.62 X10 3/uL Normal 0.83-4.51 [facility] Comment on above: Performed By: #### L 501.5200, L100.0100, L500.4050 #### [facility] [address] [place], [address] Absolute Neut 5.3 X10 3/uL Normal 2.0-7.7 [facility] Comment on above: Performed By: #### L 501.5200, L100.0100, L500.4050 #### [facility] [address] [place], [address] Basophils/100 WBC (Bld) 1.1 % High 0-1 [facility] Comment on above: Performed By: #### L 501.5200, L100.0100, L500.4050 #### [facility] [address] [place], [address] Eosinophils/100 WBC (Bld) 7.1 % High 0-5 [facility] Comment on above: Performed By: #### L 501.5200, L100.0100, L500.4050 #### [facility] [address] [place], [address] Erythrocyte distribution width (RBC) [Ratio] 12.6 % Normal 11.6-14.6 [facility] Comment on above: Performed By: #### L 501.5200, L100.0100, L500.4050 #### [facility] [address] [place], [address] Hematocrit (Bld) [Volume fraction] 46.9 % Normal 40-54 [facility] Comment on above: Performed By: #### L 501.5200, L100.0100, L500.4050 #### [facility] [address] [place], [address] Hemoglobin (Bld) [Mass/Vol] 16.4 g/dL Normal 13.0-16.5 [facility] Comment on above: Performed By: #### L 501.5200, L100.0100, L500.4050 #### [facility] [address] [place], [address] IG% 0.400 Normal 0.0-0.9 [facility] Comment on above: Result Comment: IG% - Immature Granulocytes (promyelocytes, myelocytes and metamyelocytes) > 1% indicates that a LEFT SHIFT is Present. Performed By: #### L 501.5200, L100.0100, L500.4050 #### [facility] [address] [place], [address] Lymphocytes/100 WBC (Bld) 19.5 % Normal 19-41 [facility] Comment on above: Performed By: #### L 501.5200, L100.0100, L500.4050 #### [facility] [address] [place], [address] MCH (RBC) [Entitic mass] 29.4 pg Normal 27.0-32.0 [facility] Comment on above: Performed By: #### L 501.5200, L100.0100, L500.4050 #### [facility] [address] [place], [address] MCHC (RBC) [Mass/Vol] 35.0 g/dL Normal 32-36 [facility] Comment on above: Performed By: #### L 501.5200, L100.0100, L500.4050 #### [facility] [address] [place], [address] MCV (RBC) [Entitic vol] 84.2 fL Normal 80-94 [facility] Comment on above: Performed By: #### L 501.5200, L100.0100, L500.4050 #### [facility] [address] [place], [address] Monocytes/100 WBC (Bld) 7.6 % Normal 0-10 [facility] Comment on above: Performed By: #### L 501.5200, L100.0100, L500.4050 #### [facility] [address] [place], [address] Neutrophils/100 WBC (Bld) 64.3 % Normal 47-70 [facility] Comment on above: Performed By: #### L 501.5200, L100.0100, L500.4050 #### [facility] [address] [place], [address] Nucleated RBC (Bld) [#/Vol] 0 10*3/uL Normal 0-5 [facility] Comment on above: Performed By: #### L 501.5200, L100.0100, L500.4050 #### [facility] [address] [place], [address] Platelet mean volume (Bld) [Entitic vol] 8.8 fL Normal 6.2-12.0 [facility] Comment on above: Performed By: #### L 501.5200, L100.0100, L500.4050 #### [facility] [address] [place], [address] Platelets (Bld) [#/Vol] 219 10*3/uL Normal 150-450 [facility] Comment on above: Performed By: #### L 501.5200, L100.0100, L500.4050 #### [facility] [address] [place], [address] RBC (Bld) [#/Vol] 5.57 10*6/uL Normal 4.6-6.2 [facility] Comment on above: Performed By: #### L 501.5200, L100.0100, L500.4050 #### [facility] [address] [place], [address] RDW SD 38.3 fl Normal 35.1-43.9 [facility] Comment on above: Performed By: #### L 501.5200, L100.0100, L500.4050 #### [facility] [address] [place], [address] WBC (Bld) [#/Vol] 8.3 10*3/uL Normal 4.4-11.0 [facility] Comment on above: Performed By: #### L 501.5200, L100.0100, L500.4050 #### [facility] [address] [place], [address] Carbon dioxide, total [Moles /volume] in Central venous bloodOrdered By: Jam Jiang on 07-05-2024 CO2 [Moles/Vol] 21.0 mmol/L 21.0-32.0 [facility] Chest PA and Lateralon 07-05 Chest PA and Lateral [facility] Imaging Services [address] [place] [address] Chest PA and Lateral MR#: [id number] Acct: [id number] Name: DANNY BEDOYA Rep #: [id number] : 1980 M 44 From: Ainl lopez MD PCP: Dr. Lexi Barnes MD Status: REG ER Study: Chest PA and Lateral Date of Exam: 07/05/24 Exam# [id number] Ordering Dr: Jam Jiang DO PROCEDURE: CHEST PA AND LATERAL REASON FOR EXAM: DYSPNEA TECHNIQUE: Frontal and lateral views of the chest. COMPARISON: 06/11/2024 FINDINGS: The cardiothymic contour is normal. The lungs are clear. The bones are unremarkable. RAD/Chest PA and Lateral IMPRESSION: No acute cardiopulmonary process. [facility]: Dr. Lexi Barnes MD; Jam Jiang DO Rat Farmer: Signed Normal [facility] Chloride assayOrdered By: Erin Jiang on 07-05-2024 Chloride [Moles/Vol] 103 mmol/L 98-108 [facility] Emergency Department Summary on 07-05-2024 Emergency Department Summary [facility] Medical Records Department [address] [place] [address] Emergency Department Summary 07/05/24 MR#: [id number] Acct: [id number] Name: DANNY BEDOYA Rep #: [id number] : 1980 44 From: Jam Jiang DO PCP: Dr. Lexi Barnes MD Status:ADM IN Location: [place] [address] HPI History of Present Illness Chief Complaint: [...] attacks and therefore comes in for evaluation. 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 Normal [facility] Eosinophil percentageOrdered By: Jam Jiang on 07-05-2024 Eosinophils/100 WBC (Bld) 7.1 % High 0-5 [facility] Erythrocyte distribution wid th ratioOrdered By: Jam Jiang on 07-05-2024 Erythrocyte distribution width (RBC) [Ratio] 12.6 % 11.6-14.6 [facility] Erythrocyte distribution wid th standard deviationOrdered By: Jam Jiang on 07-05-2024 Erythrocyte distribution width (RBC) [Entitic vol] 38.3 fL 35.1-43.9 [facility] GFR/1.73 sq M.predicted jyoti g non-blacks MDRD (S/P/Bld) [Vol rate/Area]Ordered By: Jam Jiang on 07-05-2024 Estimated GFR (MDRD) Non-Af Amer 95 >60 [facility] Comment on above: mL/min/1.73m2 CKD-EP I Creatinine Equation (2020) Hematocrit Auto (Bld) [Volum e fraction]Ordered By: Jam Jiang on 07-05-2024 Hematocrit (Bld) [Volume fraction] 46.9 % 40-54 [facility] Hemoglobin measurementOrdere d By: Jam Jiang on 07-05-2024 Hemoglobin (Bld) [Mass/Vol] 16.4 g/dL 13.0-16.5 [facility] Immature granulocytes/100 WB C Auto (Bld)Ordered By: Jam Jiang on 07-05-2024 Immature granulocytes/100 WBC (Bld) 0.400 % 0.0-0.9 [facility] Comment on above: IG% - Immature Granu locytes (promyelocytes, myelocytes and metamyelocytes) > 1% indicates that a LEFT SHIFT is Present. Influenza virus A and B and SARS-CoV-2 (COVID-19) and Respiratory syncytial virus RNAOrdered By: Jam Jiang on 07-05-2024 SARS-CoV-2 (COVID-19) RNA DANA+probe Ql (Unsp spec) [facility] Lymphocytes Auto (Unsp spec) [#/Vol]Ordered By: Jam Jiang on 07-05-2024 Lymphocytes (Bld) [#/Vol] 1.62 10*3/uL 0.83-4.51 [facility] Lymphocytes/100 WBC Auto (Un sp spec)Ordered By: Jam Jiang on 07-05-2024 Lymphocytes/100 WBC (Bld) 19.5 % 19-41 [facility] M100.678on 07-05-2024 M100.678 SARS-CoV-2 (COVID 19 ) Negative INFLUENZA A Negative INFLUENZA B Negative RSV PCR Negative Normal [facility] Comment on above: Performed By: #### L 501.2300 #### [facility] [address] [place], [address] MCV (mean corpuscular volume ) determinationOrdered By: Jam Jiang on 07-05-2024 MCV (RBC) [Entitic vol] 84.2 fL 80-94 [facility] Magnesiumon 07-05-2024 Magnesium [Mass/Vol] 1.7 mg/dL Normal 1.5-2.2 [facility] Comment on above: Performed By: #### L 501.5200, L100.0100, L500.4050 #### [facility] [address] [place], [address] Magnesium (Unsp spec) [Mass/ Vol]Ordered By: Jam Jiang on 07-05-2024 Magnesium [Mass/Vol] 1.7 mg/dL 1.5-2.2 [facility] Magnesium measurement (mass/ volume)Ordered By: Jam Jiang on 07-05-2024 Magnesium (Unsp spec) [Mass/Vol] 1.7 mg/dL 1.5-2.2 [facility] Mean corpuscular hemoglobin (MCH) determinationOrdered By: Jam Jiang on 07-05-2024 MCH (RBC) [Entitic mass] 29.4 pg 27.0-32.0 [facility] Mean corpuscular hemoglobin concentration (MCHC) determinationOrdered By: Jam Jiang on 07-05-2024 MCHC (RBC) [Mass/Vol] 35.0 g/dL 32-36 [facility] Mean platelet volume determi nationOrdered By: Jam Jiang on 07-05-2024 Platelet mean volume (Bld) [Entitic vol] 8.8 fL 6.2-12.0 [facility] Monocyte percentageOrdered B y: Jam Jiang on 07-05-2024 Monocytes/100 WBC (Bld) 7.6 % 0-10 [facility] Neutrophil percentageOrdered By: Jam Jiang on 07-05-2024 Neutrophils/100 WBC (Bld) 64.3 % 47-70 [facility] Nucleated red blood cell per centageOrdered By: Jam Jiang on 07-05-2024 Nucleated RBC/100 WBC (Bld) [Ratio] 0 % 0-5 [facility] Platelet countOrdered By: Erin Jiang on 07-05-2024 Platelets (Bld) [#/Vol] 219 10*3/uL 150-450 [facility] Potassium (Unsp spec) [Mass/ Vol]Ordered By: Jam Jiang on 07-05-2024 Potassium [Moles/Vol] 3.8 mmol/L 3.3-5.1 [facility] RBC Auto (Bld) [#/Vol]Ordere d By: Jam Jiang on 07-05-2024 RBC (Bld) [#/Vol] 5.57 10*6/uL 4.6-6.2 [facility] Serum creatinine measurement (mass/volume)Ordered By: Jam Jiang on 07-05-2024 Creatinine [Mass/Vol] 1.00 mg/dL 0.70-1.20 [facility] Serum glucose measurement (m ass/volume)Ordered By: Jam Jiang on 07-05-2024 Glucose [Mass/Vol] 102 mg/dL High 70-99 [facility] Serum or plasma calcium ginny urement (mass/volume)Ordered By: aJm Jiang on 07-05-2024 Calcium [Mass/Vol] 9.6 mg/dL 7.6-11.0 [facility] Serum or plasma urea nitroge n measurement (mass/volume)Ordered By: Jam Jiang on 07-05-2024 Urea nitrogen [Mass/Vol] 18 mg/dL 4-19 [facility] Sodium levelOrdered By: Adam Jiang on 07-05-2024 Sodium [Moles/Vol] 139 mmol/L 133-145 [facility] TSH DL <= 0.005 mIU/L QnOrde red By: Lisa Wallis on 07-05-2024 Thyroid Stimulating Hormone (TSH) 2.050 uIU/mL 0.300-4.20 0 [facility] TSH Qn 2.050 uIU/mL 0.300-4.20 0 [facility] White blood cell (WBC) count Ordered By: Jam Jiang on 07-05-2024 WBC (Bld) [#/Vol] 8.3 10*3/uL 4.4-11.0 [facility] Absolute lymphocyte countOrd ered By: Douglas cecilioMiguel on 06-11-2024 Lymphocytes Auto (Unsp spec) [#/Vol] 1.48 10*3/uL 0.83-4.51 [facility] Absolute neutrophil countOrd ered By: [facility] on 06-11-2024 Neutrophils (Bld) [#/Vol] 6.0 10*3/uL 2.0-7.7 [facility] Automated lymphocyte count a s percentage of total leukocytesOrdered By: Douglas Cruz on 06-11-2024 Lymphocytes/100 WBC Auto (Unsp spec) 17.5 % Low 19-41 [facility] Basic Metabolic Profile (BMP )on 06-11-2024 BUN/CRE 15.1 RATIO Normal 10-20 [facility] Comment on above: Performed By: #### L 501.5200, L100.0100, L500.4050 #### [facility] [address] [place], [address] CA,Total 9.0 mg/dL Normal 8.5-10.1 [facility] Comment on above: Performed By: #### L 501.5200, L100.0100, L500.4050 #### [facility] [address] [place], [address] Chloride [Moles/Vol] 107 mmol/L Normal 98-107 [facility] Comment on above: Performed By: #### L 501.5200, L100.0100, L500.4050 #### [facility] [address] [place], [address] CO2 [Moles/Vol] 26.0 mmol/L Normal 21.0-32.0 [facility] Comment on above: Performed By: #### L 501.5200, L100.0100, L500.4050 #### [facility] [address] [place], [address] Creatinine [Mass/Vol] 1.06 mg/dL Normal 0.70-1.30 [facility] Comment on above: Result Comment: The validity of the calculated GFR GFRAA in patients over 70 years has not been determined. Clinical correlation is essential. Performed By: #### L 501.5200, L100.0100, L500.4050 #### [facility] [address] [place], [address] ECRCL 77.36 ml/min Normal [facility] Comment on above: Performed By: #### L 501.5200, L100.0100, L500.4050 #### [facility] [address] [place], [address] EST GFR - AA 98 mL/min Normal >60 [facility] Comment on above: Result Comment: Afri can [place] GFR Calc Performed By: #### L 501.5200, L100.0100, L500.4050 #### [facility] [address] [place], [address] GAP 4 Low 5-15 [facility] Comment on above: Performed By: #### L 501.5200, L100.0100, L500.4050 #### [facility] [address] [place], [address] GFR/1.73 sq M.predicted among non-blacks MDRD (S/P/Bld) [Vol rate/Area] 81 mL/min/{1.73_m2} Normal >60 [facility] Comment on above: Result Comment: Non- GFR Calc Performed By: #### L 501.5200, L100.0100, L500.4050 #### [facility] [address] [place], [address] Glucose [Mass/Vol] 90 mg/dL Normal 74-106 [facility] Comment on above: Performed By: #### L 501.5200, L100.0100, L500.4050 #### [facility] [address] [place], [address] Potassium [Moles/Vol] 5.2 mmol/L High 3.5-5.1 [facility] Comment on above: Result Comment: Mode rate Hemolysis, Result may be falsely increased. Performed By: #### L 501.5200, L100.0100, L500.4050 #### [facility] [address] [place], [address] Sodium [Moles/Vol] 137 mmol/L Normal 136-145 [facility] Comment on above: Performed By: #### L 501.5200, L100.0100, L500.4050 #### [facility] [address] [place], [address] Urea nitrogen [Mass/Vol] 16 mg/dL Normal 7-18 [facility] Comment on above: Performed By: #### L 501.5200, L100.0100, L500.4050 #### [facility] [address] [place], [address] Basophil percentageOrdered B y: Douglas Cruz on 06-11-2024 Basophils/100 WBC (Bld) 0.6 % 0-1 [facility] Blood urea nitrogen (BUN)/cr eatinine ratioOrdered By: Douglas Cruz on 06-11-2024 Urea nitrogen/Creatinine [Mass ratio] 15.1 mg/mg 10-20 [facility] CBC W/Diff, Automatedon 05-29 Absolute Lymph 1.48 X10 3/uL Normal 0.83-4.51 [facility] Comment on above: Performed By: #### L 501.5200, L100.0100, L500.4050 #### [facility] [address] [place], [address] Absolute Neut 6.0 X10 3/uL Normal 2.0-7.7 [facility] Comment on above: Performed By: #### L 501.5200, L100.0100, L500.4050 #### [facility] [address] [place], [address] Basophils/100 WBC (Bld) 0.6 % Normal 0-1 [facility] Comment on above: Performed By: #### L 501.5200, L100.0100, L500.4050 #### [facility] [address] [place], [address] Eosinophils/100 WBC (Bld) 4.2 % Normal 0-5 [facility] Comment on above: Performed By: #### L 501.5200, L100.0100, L500.4050 #### [facility] [address] [place], [address] Erythrocyte distribution width (RBC) [Ratio] 13.2 % Normal 11.6-14.6 [facility] Comment on above: Performed By: #### L 501.5200, L100.0100, L500.4050 #### [facility] [address] [place], [address] Hematocrit (Bld) [Volume fraction] 47.1 % Normal 40-54 [facility] Comment on above: Performed By: #### L 501.5200, L100.0100, L500.4050 #### [facility] [address] [place], [address] Hemoglobin (Bld) [Mass/Vol] 15.9 g/dL Normal 13.0-16.5 [facility] Comment on above: Performed By: #### L 501.5200, L100.0100, L500.4050 #### [facility] [address] [place], [address] IG% 0.200 Normal 0.0-0.9 [facility] Comment on above: Result Comment: IG% - Immature Granulocytes (promyelocytes, myelocytes and metamyelocytes) > 1% indicates that a LEFT SHIFT is Present. Performed By: #### L 501.5200, L100.0100, L500.4050 #### [facility] [address] [place], [address] Lymphocytes/100 WBC (Bld) 17.5 % Low 19-41 [facility] Comment on above: Performed By: #### L 501.5200, L100.0100, L500.4050 #### [facility] [address] [place], [address] MCH (RBC) [Entitic mass] 29.3 pg Normal 27.0-32.0 [facility] Comment on above: Performed By: #### L 501.5200, L100.0100, L500.4050 #### [facility] [address] [place], [address] MCHC (RBC) [Mass/Vol] 33.8 g/dL Normal 32-36 [facility] Comment on above: Performed By: #### L 501.5200, L100.0100, L500.4050 #### [facility] [address] [place], [address] MCV (RBC) [Entitic vol] 86.7 fL Normal 80-94 [facility] Comment on above: Performed By: #### L 501.5200, L100.0100, L500.4050 #### [facility] [address] [place], [address] Monocytes/100 WBC (Bld) 6.8 % Normal 0-10 [facility] Comment on above: Performed By: #### L 501.5200, L100.0100, L500.4050 #### [facility] [address] [place], [address] Neutrophils/100 WBC (Bld) 70.7 % High 47-70 [facility] Comment on above: Performed By: #### L 501.5200, L100.0100, L500.4050 #### [facility] [address] [place], [address] Nucleated RBC (Bld) [#/Vol] 0 10*3/uL Normal 0-5 [facility] Comment on above: Performed By: #### L 501.5200, L100.0100, L500.4050 #### [facility] [address] [place], [address] Platelet mean volume (Bld) [Entitic vol] 9.3 fL Normal 6.2-12.0 [facility] Comment on above: Performed By: #### L 501.5200, L100.0100, L500.4050 #### [facility] [address] [place], [address] Platelets (Bld) [#/Vol] 199 10*3/uL Normal 150-450 [facility] Comment on above: Performed By: #### L 501.5200, L100.0100, L500.4050 #### [facility] [address] [place], [address] RBC (Bld) [#/Vol] 5.43 10*6/uL Normal 4.6-6.2 [facility] Comment on above: Performed By: #### L 501.5200, L100.0100, L500.4050 #### [facility] [address] [place], [address] RDW SD 39.8 fl Normal 35.1-43.9 [facility] Comment on above: Performed By: #### L 501.5200, L100.0100, L500.4050 #### [facility] [address] [place], [address] WBC (Bld) [#/Vol] 8.5 10*3/uL Normal 4.4-11.0 [facility] Comment on above: Performed By: #### L 501.5200, L100.0100, L500.4050 #### [facility] [address] [place], [address] Carbon dioxide measurementOr dered By: Douglas Cruz on 06-11-2024 CO2 [Moles/Vol] 26.0 mmol/L 21.0-32.0 [facility] Chest PA and Lateralon 06-11 Chest PA and Lateral [facility] Imaging Services [address] [place] [address] Chest PA and Lateral MR#: [id number] Acct: [id number] Name: DANNY BEDOYA Rep #: [id number] : 1980 M 44 From: Ambreen Driver MD PCP: Dr. Lexi Barnes MD Status: REG ER Study: Chest PA and Lateral Date of Exam: 06/11/24 Exam# [id number] Ordering Dr: Douglas Cruz DO PROCEDURE: CHEST [...] Lexi Barnes MD; Dr. Douglas Cruz DO Rat Farmer: Signed Normal [facility] Chloride measurementOrdered By: Douglas Cruz on 06-11-2024 Chloride [Moles/Vol] 107 mmol/L 98-107 [facility] Emergency Department Summary on 06-11-2024 Emergency Department Summary [facility] Department [address] [place] [address] Emergency Department Summary 06/11/24 MR#: [id number] Acct: [id number] Name: DANNY BEDOYA Rep #: [id number] : 1980 44 From: Douglas Cruz DO [...] intact Psych: Cooperative, appropriate mood and affect 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 Normal [facility] Eosinophil percentageOrdered By: Douglas Cruz on 06-11-2024 Eosinophils/100 WBC (Bld) 4.2 % 0-5 [facility] Erythrocyte distribution wid th ratioOrdered By: Douglas Cruz on 06-11-2024 Erythrocyte distribution width (RBC) [Ratio] 13.2 % 11.6-14.6 [facility] Erythrocyte distribution wid th standard deviationOrdered By: Douglas Todd on 06-11-2024 Erythrocyte distribution width (RBC) [Entitic vol] 39.8 fL 35.1-43.9 [facility] Erythrocyte distribution width (RBC) [Ratio] 39.8 fl 35.1-43.9 [facility] Estimated glomerular filtrat ion rate (GFR) AmericanOrdered By: Douglas Cruz on 06-11-2024 Estimated GFR (MDRD) Amer 98 mL/min >60 [facility] Comment on above: GFR Calc Estimation of creatinine niru aranceOrdered By: Douglas Cruz on 06-11-2024 Estimated Creatinine Clearance Calc 77.36 ml/min [facility] Glomerular filtration rate ( GFR) estimationOrdered By: Douglas Cruz on 06-11-2024 Estimated GFR (MDRD) Non-Af Amer 81 mL/min >60 [facility] Comment on above: Non- GFR Calc GFR/1.73 sq M.predicted among non-blacks MDRD (S/P/Bld) [Vol rate/Area] 81 mL/min/{1.73_m2} >60 [facility] Comment on above: Non- GFR Calc Glucose measurementOrdered B y: Douglas Cruz on 06-11-2024 Glucose [Mass/Vol] 90 mg/dL 74-106 [facility] Hematocrit Auto (Bld) [Volum e fraction]Ordered By: Douglas Cruz on 06-11-2024 Hematocrit (Bld) [Volume fraction] 47.1 % 40-54 [facility] Hemoglobin measurementOrdere d By: Douglas Cruz on 06-11-2024 Hemoglobin (Bld) [Mass/Vol] 15.9 g/dL 13.0-16.5 [facility] Immature granulocytes/100 WB C Auto (Bld)Ordered By: Douglas Cruz on 06-11-2024 Immature granulocytes/100 WBC (Bld) 0.200 % 0.0-0.9 [facility] Comment on above: IG% - Immature Granu locytes (promyelocytes, myelocytes and metamyelocytes) > 1% indicates that a LEFT SHIFT is Present. Influenza virus A and B and SARS-CoV-2 (COVID-19) and Respiratory syncytial virus RNAOrdered By: Douglas Cruz on 06-11-2024 SARS-CoV-2 (COVID-19) RNA DANA+probe Ql (Unsp spec) [facility] Lymphocytes Auto (Unsp spec) [#/Vol]Ordered By: Douglas Cruz on 06-11-2024 Lymphocytes (Bld) [#/Vol] 1.48 10*3/uL 0.83-4.51 [facility] Lymphocytes/100 WBC Auto (Un sp spec)Ordered By: Douglas Cruz on 06-11-2024 Lymphocytes/100 WBC (Bld) 17.5 % Low 19-41 [facility] M100.678on 06-11-2024 M100.678 SARS-CoV-2 (COVID 19 ) Negative INFLUENZA A Negative INFLUENZA B Negative RSV PCR Negative Normal [facility] Comment on above: Performed By: #### L 501.2300 #### [facility] [address] [place], [address] MCV (mean corpuscular volume ) determinationOrdered By: Doulgas Cruz on 06-11-2024 MCV (RBC) [Entitic vol] 86.7 fL 80-94 [facility] Mean corpuscular hemoglobin (MCH) determinationOrdered By: Douglas Cruz on 06-11-2024 MCH (RBC) [Entitic mass] 29.3 pg 27.0-32.0 [facility] Mean corpuscular hemoglobin concentration (MCHC) determinationOrdered By: Douglas Cruz on 06-11-2024 MCHC (RBC) [Mass/Vol] 33.8 g/dL 32-36 [facility] Mean platelet volume determi nationOrdered By: Douglas Cruz on 06-11-2024 Platelet mean volume (Bld) [Entitic vol] 9.3 fL 6.2-12.0 [facility] Monocyte percentageOrdered B y: Douglas Cruz on 06-11-2024 Monocytes/100 WBC (Bld) 6.8 % 0-10 [facility] Neutrophil percentageOrdered By: Douglas Cruz on 06-11-2024 Neutrophils/100 WBC (Bld) 70.7 % High 47-70 [facility] Nucleated red blood cell per centageOrdered By: Douglas Cruz on 06-11-2024 Nucleated RBC/100 WBC (Bld) [Ratio] 0 % 0-5 [facility] Platelet countOrdered By: Calderon Cruz on 06-11-2024 Platelets (Bld) [#/Vol] 199 10*3/uL 150-450 [facility] Potassium measurementOrdered By: Douglas Cruz on 06-11-2024 Potassium [Moles/Vol] 5.2 mmol/L High 3.5-5.1 [facility] Comment on above: Moderate Hemolysis, Result may be falsely increased. RBC Auto (Bld) [#/Vol]Ordere d By: Douglas Cruz on 06-11-2024 RBC (Bld) [#/Vol] 5.43 10*6/uL 4.6-6.2 [facility] Serum anion gap measurementO rdered By: Douglas Cruz on 06-11-2024 Anion gap [Moles/Vol] 4 mmol/L Low 5-15 [facility] Serum or plasma calcium ginny urement (mass/volume)Ordered By: Douglas Todd on 06-11-2024 Calcium [Mass/Vol] 9.0 mg/dL 8.5-10.1 [facility] Serum or plasma creatinine m easurement (mass/volume)Ordered By: Douglas Todd on 06-11-2024 Creatinine [Mass/Vol] 1.06 mg/dL 0.70-1.30 [facility] Comment on above: The validity of the calculated GFR & GFRAA in patients over 70 years has not been determined. Clinical correlation is essential. Serum or plasma urea nitroge n measurement (mass/volume)Ordered By: Douglas Cruz on 06-11-2024 Urea nitrogen [Mass/Vol] 16 mg/dL 7-18 [facility] Sodium levelOrdered By: Chago Cruz on 06-11-2024 Sodium [Moles/Vol] 137 mmol/L 136-145 [facility] White blood cell (WBC) count Ordered By: Douglas Cruz on 06-11-2024 WBC (Bld) [#/Vol] 8.5 10*3/uL 4.4-11.0 [facility] L501.5101on 03-31-2024 GGTP 22 IU/L Normal 0-65 [facility] Comment on above: Order Comment: Test( s) 992530-Tgvrmoozcl (FK506), Bloodwas developed and its performance characteristicsdetermined by [employer]. It has not been cleared or approvedby the Food and Drug Administration. Result Comment: Perf ormed at: - [address] [id number] [facility] Provider: Arlyn Avila MD, Phone: [phone] Performed at: [facility] [address] [id number] [facility] Provider: Dago Will PhD, Phone: [phone] Performed By: #### L 501.5200, L100.0100, L500.4050 #### [facility] [address] [place], [place], [id number] Tacrolimus (Prograf)on 03-31 Tacrolimus (Bld) [Mass/Vol] 7.5 ng/mL Normal 2.0-20.0 [facility] Comment on above: Order Comment: Test( s) 177911-[id number] (FK506), Bloodwas developed and its performance characteristicsdetermined by [employer]. It has not been cleared or approvedby the Food and Drug Administration. Result Comment: Trou gh (immediately following transplant) 15.0 Trough (steady state, 2 weeks or more after transplant): 3.0 - 8.0 Performed by LC-MS/MS technology. Performed By: #### L 501.5200, L100.0100, L500.4050 #### [facility] [address] [place], [place], [id number] Absolute neutrophil counton 03-29-2024 Neutrophils (Bld) [#/Vol] 3.4 10*3/uL 2.0-7.7 [facility] Basic Metabolic Profile (BMP )on 03-29-2024 BUN/CRE 20.2 RATIO High 10-20 [facility] Comment on above: Performed By: #### L 501.5200, L100.0100, L500.4050 #### [facility] [address] [place], [place], [id number] CA,Total 9.0 mg/dL Normal 8.5-10.1 [facility] Comment on above: Performed By: #### L 501.5200, L100.0100, L500.4050 #### [facility] [address] [place], [address] Chloride [Moles/Vol] 110 mmol/L High 98-107 [facility] Comment on above: Performed By: #### L 501.5200, L100.0100, L500.4050 #### [facility] [address] [place], [address] CO2 [Moles/Vol] 23.0 mmol/L Normal 21.0-32.0 [facility] Comment on above: Performed By: #### L 501.5200, L100.0100, L500.4050 #### [facility] [address] [place], [address] Creatinine [Mass/Vol] 1.09 mg/dL Normal 0.70-1.30 [facility] Comment on above: Result Comment: The validity of the calculated GFR GFRAA in patients over 70 years has not been determined. Clinical correlation is essential. Performed By: #### L 501.5200, L100.0100, L500.4050 #### [facility] [address] [place], [address] EST GFR - AA 95 mL/min Normal >60 [facility] Comment on above: Result Comment: Afri can [place] GFR Calc Performed By: #### L 501.5200, L100.0100, L500.4050 #### [facility] [address] [place], [address] GAP 6 Normal 5-15 [facility] Comment on above: Performed By: #### L 501.5200, L100.0100, L500.4050 #### [facility] [address] [place], [address] GFR/1.73 sq M.predicted among non-blacks MDRD (S/P/Bld) [Vol rate/Area] 78 mL/min/{1.73_m2} Normal >60 [facility] Comment on above: Result Comment: Non- GFR Calc Performed By: #### L 501.5200, L100.0100, L500.4050 #### [facility] [address] [place], [address] Glucose [Mass/Vol] 107 mg/dL High 74-106 [facility] Comment on above: Result Comment: Fast ing Glucose result from 100 to 125 mg/dL suggests IMPAIRED HOMEOSTASIS per A.D.A. criteria. Performed By: #### L 501.5200, L100.0100, L500.4050 #### [facility] [address] [place], [address] Potassium [Moles/Vol] 4.3 mmol/L Normal 3.5-5.1 [facility] Comment on above: Performed By: #### L 501.5200, L100.0100, L500.4050 #### [facility] [address] [place], [address] Sodium [Moles/Vol] 139 mmol/L Normal 136-145 [facility] Comment on above: Performed By: #### L 501.5200, L100.0100, L500.4050 #### [facility] [address] [place], [address] Urea nitrogen [Mass/Vol] 22 mg/dL High 7-18 [facility] Comment on above: Performed By: #### L 501.5200, L100.0100, L500.4050 #### [facility] [address] [place], [address] Basophil percentageon 2023 Basophils/100 WBC (Bld) 1.2 % High 0-1 [facility] Bilirubin directon 4 Bilirubin.direct [Mass/Vol] 0.41 mg/dL High 0.00-0.30 [facility] Bilirubin, totalon 4 Bilirubin [Mass/Vol] 1.60 mg/dL High 0.20-1.00 [facility] Comment on above: For patients on eltr ombopag therapy, use of Dimension [place] TBIL is not recommended. Blood urea nitrogen (BUN)/cr eatinine ratioon 03-29-2024 Urea nitrogen/Creatinine [Mass ratio] 20.2 mg/mg High 10-20 [facility] CBC W/Diff, Automatedon Absolute Lymph 1.66 X10 3/uL Normal 0.83-4.51 [facility] Comment on above: Performed By: #### L 501.5200, L100.0100, L500.4050 #### [facility] [address] [place], [address] Absolute Neut 3.4 X10 3/uL Normal 2.0-7.7 [facility] Comment on above: Performed By: #### L 501.5200, L100.0100, L500.4050 #### [facility] [address] [place], [address] Basophils/100 WBC (Bld) 1.2 % High 0-1 [facility] Comment on above: Performed By: #### L 501.5200, L100.0100, L500.4050 #### [facility] [address] [place], [address] Eosinophils/100 WBC (Bld) 5.1 % High 0-5 [facility] Comment on above: Performed By: #### L 501.5200, L100.0100, L500.4050 #### [facility] [address] [place], [address] Erythrocyte distribution width (RBC) [Ratio] 12.6 % Normal 11.6-14.6 [facility] Comment on above: Performed By: #### L 501.5200, L100.0100, L500.4050 #### [facility] [address] [place], [address] Hematocrit (Bld) [Volume fraction] 41.0 % Normal 40-54 [facility] Comment on above: Performed By: #### L 501.5200, L100.0100, L500.4050 #### [facility] [address] [place], [address] Hemoglobin (Bld) [Mass/Vol] 14.4 g/dL Normal 13.0-16.5 [facility] Comment on above: Performed By: #### L 501.5200, L100.0100, L500.4050 #### [facility] [address] [place], [address] IG% 0.200 Normal 0.0-0.9 [facility] Comment on above: Result Comment: IG% - Immature Granulocytes (promyelocytes, myelocytes and metamyelocytes) > 1% indicates that a LEFT SHIFT is Present. Performed By: #### L 501.5200, L100.0100, L500.4050 #### [facility] [address] [place], [address] Lymphocytes/100 WBC (Bld) 27.5 % Normal 19-41 [facility] Comment on above: Performed By: #### L 501.5200, L100.0100, L500.4050 #### [facility] [address] [place], [address] MCH (RBC) [Entitic mass] 30.1 pg Normal 27.0-32.0 [facility] Comment on above: Performed By: #### L 501.5200, L100.0100, L500.4050 #### [facility] [address] [place], [address] MCHC (RBC) [Mass/Vol] 35.1 g/dL Normal 32-36 [facility] Comment on above: Performed By: #### L 501.5200, L100.0100, L500.4050 #### [facility] [address] [place], [address] MCV (RBC) [Entitic vol] 85.6 fL Normal 80-94 [facility] Comment on above: Performed By: #### L 501.5200, L100.0100, L500.4050 #### [facility] [address] [place], [address] Monocytes/100 WBC (Bld) 10.4 % High 0-10 [facility] Comment on above: Performed By: #### L 501.5200, L100.0100, L500.4050 #### [facility] [address] [place], [address] Neutrophils/100 WBC (Bld) 55.6 % Normal 47-70 [facility] Comment on above: Performed By: #### L 501.5200, L100.0100, L500.4050 #### [facility] [address] [place], [address] Nucleated RBC (Bld) [#/Vol] 0 10*3/uL Normal 0-5 [facility] Comment on above: Performed By: #### L 501.5200, L100.0100, L500.4050 #### [facility] [address] [place], [address] Platelet mean volume (Bld) [Entitic vol] 9.0 fL Normal 6.2-12.0 [facility] Comment on above: Performed By: #### L 501.5200, L100.0100, L500.4050 #### [facility] [address] [place], [address] Platelets (Bld) [#/Vol] 203 10*3/uL Normal 150-450 [facility] Comment on above: Performed By: #### L 501.5200, L100.0100, L500.4050 #### [facility] [address] [place], [address] RBC (Bld) [#/Vol] 4.79 10*6/uL Normal 4.6-6.2 [facility] Comment on above: Performed By: #### L 501.5200, L100.0100, L500.4050 #### [facility] [address] [place], [address] RDW SD 39.3 fl Normal 35.1-43.9 [facility] Comment on above: Performed By: #### L 501.5200, L100.0100, L500.4050 #### [facility] [address] [place], [address] WBC (Bld) [#/Vol] 6.0 10*3/uL Normal 4.4-11.0 [facility] Comment on above: Performed By: #### L 501.5200, L100.0100, L500.4050 #### [facility] [address] [place], [address] Carbon dioxide measurementon 03-29-2024 CO2 [Moles/Vol] 23.0 mmol/L 21.0-32.0 [facility] Chloride measurementon 03-29 Chloride [Moles/Vol] 110 mmol/L High 98-107 [facility] Eosinophil percentageon 12-0 Eosinophils/100 WBC (Bld) 5.1 % High 0-5 [facility] Erythrocyte distribution wid th ratioon 03-29-2024 Erythrocyte distribution width (RBC) [Ratio] 12.6 % 11.6-14.6 [facility] Erythrocyte distribution wid th standard deviationon 03-29-2024 Erythrocyte distribution width (RBC) [Entitic vol] 39.3 fL 35.1-43.9 [facility] Estimated glomerular filtrat ion rate (GFR) Americanon 03-29-2024 Estimated GFR (MDRD) Amer 95 mL/min >60 [facility] Comment on above: GFR Calc Gamma glutamyl transferase ( GGT) measurementon 03-29-2024 Amylase [Catalytic activity/Vol] 22 U/L 0-65 [facility] Comment on above: Performed at: BN - [address] [id number] Director: Arlyn Avila MD, Phone: [phone] at: - [facility] [id number] [place], [place] [id number] Director: Dago Will PhD, Phone: [phone] Glomerular filtration rate ( GFR) estimationon 03-29-2024 Estimated GFR (MDRD) Non-Af Amer 78 mL/min >60 [facility] Comment on above: Non- GFR Calc Glucose measurementon 2023 Glucose [Mass/Vol] 107 mg/dL High 74-106 [facility] Comment on above: Fasting Glucose resu lt from 100 to 125 mg/dL suggests IMPAIRED HOMEOSTASIS per A.D.A. criteria. Hematocrit Auto (Bld) [Volum e fraction]on 03-29-2024 Hematocrit (Bld) [Volume fraction] 41.0 % 40-54 [facility] Hemoglobin measurementon Hemoglobin (Bld) [Mass/Vol] 14.4 g/dL 13.0-16.5 [facility] Immature granulocytes/100 WB C Auto (Bld)on 03-29-2024 Immature granulocytes/100 WBC (Bld) 0.200 % 0.0-0.9 [facility] Comment on above: IG% - Immature Granu locytes (promyelocytes, myelocytes and metamyelocytes) > 1% indicates that a LEFT SHIFT is Present. International normalized rat io (INR) calculationon 03-29-2024 INR Coag (Bld) [Relative time] 1.2 {INR} [facility] - Chemistry and C hemistry - challengeon 03-29-2024 AST [Catalytic activity/Vol] 16 U/L 15-37 [facility] Liver Profileon 03-29-2024 Albumin [Mass/Vol] 3.8 g/dL Normal 3.2-5.0 [facility] Comment on above: Performed By: #### L 501.5200, L100.0100, L500.1720 #### [facility] [address] [place], [address] ALK P 59 U/L Normal 45-117 [facility] Comment on above: Performed By: #### L 501.5200, L100.0100, L500.4050 #### [facility] [address] [place], [address] ALT [Catalytic activity/Vol] 22 U/L Normal 16-61 [facility] Comment on above: Performed By: #### L 501.5200, L100.0100, L500.4050 #### [facility] [address] [place], [address] AST [Catalytic activity/Vol] 16 U/L Normal 15-37 [facility] Comment on above: Performed By: #### L 501.5200, L100.0100, L500.4050 #### [facility] [address] [place], [address] Bilirubin [Mass/Vol] 1.60 mg/dL High 0.20-1.00 [facility] Comment on above: Result Comment: For patients on eltrombopag therapy, use of Dimension [place] TBIL is not recommended. Performed By: #### L 501.5200, L100.0100, L500.4050 #### [facility] [address] [place], [address] Bilirubin.direct [Mass/Vol] 0.41 mg/dL High 0.00-0.30 [facility] Comment on above: Performed By: #### L 501.5200, L100.0100, L500.4050 #### [facility] [address] [place], [address] Globulin (S) [Mass/Vol] 3.3 g/dL Normal 2.2-4.2 [facility] Comment on above: Performed By: #### L 501.5200, L100.0100, L500.4050 #### [facility] [address] [place], [address] T PROT 7.1 g/dL Normal 6.4-8.2 [facility] Comment on above: Performed By: #### L 501.5200, L100.0100, L500.4050 #### [facility] [address] [place], [address] Lymphocytes Auto (Unsp spec) [#/Vol]on 03-29-2024 Lymphocytes (Bld) [#/Vol] 1.66 10*3/uL 0.83-4.51 [facility] Lymphocytes/100 WBC Auto (Un sp spec)on 03-29-2024 Lymphocytes/100 WBC (Bld) 27.5 % 19-41 [facility] MCV (mean corpuscular volume ) determinationon 03-29-2024 MCV (RBC) [Entitic vol] 85.6 fL 80-94 [facility] Magnesiumon 03-29-2024 Magnesium [Mass/Vol] 1.8 mg/dL Normal 1.6-2.6 [facility] Comment on above: Performed By: #### L 501.5200, L100.0100, L500.4050 #### [facility] [address] [place], [address] Magnesium measurementon Magnesium [Mass/Vol] 1.8 mg/dL 1.6-2.6 [facility] Mean corpuscular hemoglobin (MCH) determinationon 03-29-2024 MCH (RBC) [Entitic mass] 30.1 pg 27.0-32.0 [facility] Mean corpuscular hemoglobin concentration (MCHC) determinationon 03-29-2024 MCHC (RBC) [Mass/Vol] 35.1 g/dL 32-36 [facility] Mean platelet volume determi nationon 03-29-2024 Platelet mean volume (Bld) [Entitic vol] 9.0 fL 6.2-12.0 [facility] Monocyte percentageon 2023 Monocytes/100 WBC (Bld) 10.4 % High 0-10 [facility] Neutrophil percentageon Neutrophils/100 WBC (Bld) 55.6 % 47-70 [facility] Nucleated red blood cell per centageon 03-29-2024 Nucleated RBC/100 WBC (Bld) [Ratio] 0 % 0-5 [facility] Phosphoruson 03-29-2024 Phosphate [Mass/Vol] 2.3 mg/dL Low 2.5-4.9 [facility] Comment on above: Performed By: #### L 501.5200, L100.0100, L500.4050 #### [facility] [address] [place], [address] Phosphorus measurementon Phosphorus Level 2.3 mg/dL Low 2.5-4.9 [facility] Platelet counton 03-29-2024 Platelets (Bld) [#/Vol] 203 10*3/uL 150-450 [facility] Potassium measurementon Potassium [Moles/Vol] 4.3 mmol/L 3.5-5.1 [facility] Prothrombin Time w/INRon INR Coag (PPP) [Relative time] 1.2 {INR} Normal [facility] Comment on above: Performed By: #### L 501.5200, L100.0100, L500.4050 #### [facility] [address] [place], [address] PT Coag (PPP) [Time] 15.0 s High 11.7-14.9 [facility] Comment on above: Performed By: #### L 501.5200, L100.0100, L500.4050 #### [facility] [address] [place], [address] Prothrombin timeon PT Coag (PPP) [Time] 15.0 s High 11.7-14.9 [facility] RBC Auto (Bld) [#/Vol]on 12- 02-2024 RBC (Bld) [#/Vol] 4.79 10*6/uL 4.6-6.2 [facility] Serum anion gap measuremento n 03-29-2024 Anion gap [Moles/Vol] 6 mmol/L 5-15 [facility] Serum globulin measurementon 03-29-2024 Globulin (S) [Mass/Vol] 3.3 g/dL 2.2-4.2 [facility] Serum or plasma alanine rodas otransferase (ALT) measurementon 03-29-2024 ALT [Catalytic activity/Vol] 22 U/L 16-61 [facility] Serum or plasma albumin ginny urement (mass/volume)on 03-29-2024 Albumin [Mass/Vol] 3.8 g/dL 3.2-5.0 [facility] Serum or plasma alkaline yarelis sphatase measurementon 03-29-2024 ALP [Catalytic activity/Vol] 59 U/L 45-117 [facility] Serum or plasma calcium ginny urement (mass/volume)on 03-29-2024 Calcium [Mass/Vol] 9.0 mg/dL 8.5-10.1 [facility] Serum or plasma creatinine m easurement (mass/volume)on 03-29-2024 Creatinine [Mass/Vol] 1.09 mg/dL 0.70-1.30 [facility] Comment on above: The validity of the calculated GFR & GFRAA in patients over 70 years has not been determined. Clinical correlation is essential. Serum or plasma urea nitroge n measurement (mass/volume)on 03-29-2024 Urea nitrogen [Mass/Vol] 22 mg/dL High 7-18 [facility] Sodium levelon 03-29-2024 Sodium [Moles/Vol] 139 mmol/L 136-145 [facility] Tacrolimus levelon Tacrolimus (Prograf) Level 7.5 ng/mL 2.0-20.0 [facility] Comment on above: Trough (immediately following transplant) 15.0 Trough (steady state, 2 weeks or more after transplant): 3.0 - 8.0 Performed by LC-MS/MS technology. Total proteinon 03-29-2024 Protein [Mass/Vol] 7.1 g/dL 6.4-8.2 [facility] White blood cell (WBC) count on 03-29-2024 WBC (Bld) [#/Vol] 6.0 10*3/uL 4.4-11.0 [facility] 02[facility]2024 [facility] Office Visit (FERNANDO ) DANNY BEDOYA ([id number]) 1980 M Date Time Provider Department 02/16/24 [...] Mammogram screening? N/A Last Colonoscopy: none JORGE oCronado Daniel P, MD 02/17/2024 7:25 AM Signed [...] Father b (more content not included)... Normal [facility] 12 Lead EKGon 02-03-2024 12 Lead EKG [facility] Services [address] [place] [address] 12 Lead EKG 02/03/24 1137 MR#: [id number] Acct: [id number] Name: DANNY BEDOYA Rep #: [id number] : 1980 43 From: Alexy York MD [...] normal ECG Confirmed by ALEXY YORK MD ([id number]), editor greeting card TIFFANY COTTON ([id number]) on 02/04/2024 9:24:55 AM Referred By: Confirmed By:ALEXY YORK MD 02/04/24 1564 Date Alexy York MD CC: Dr. Kirit Moreira MD; Dr. Lexi Barnes MD Signed Normal [facility] Chest 1 View (Portable)on Chest 1 View (Portable) [facility] Imaging Services [address] [place] [address] Chest 1 View (Portable) MR#: [id number] Acct: [id number] Name: DANNY BEDOYA Rep #: [id number] : 1980 43 From: James babin MD PCP: Dr. Lexi Barnes MD Status: REG ER Study: Chest 1 View (Portable) Date of Exam: 02/03/24 Exam# [id number] Ordering Dr: Kirit Moreira MD [id number] STUDY: X-RAY CHEST REASON FOR EXAM: Male, [...] Signed: James Bryan MD at 12:19 EDT , CC: Dr. Kirit Moreira MD; Dr. Lexi Barnes MD Rat Farmer: Signed Normal [facility] Emergency Department Summary on 02-03-2024 Emergency Department Summary [facility] Medical Records Department [address] [place] [address] Emergency Department Summary 02/03/24 MR#: [id number] Acct: [id number] Name: DANNY BEDOYA Rep #: [id number] : 1980 43 From: Kirit Moreira MD [...] no nausea or vomiting, no diaphoresis. Non-smoker. 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 Normal [facility] .Auto Diffon 10-25-2023 Basophil, Absolute 0.0 10 3/mcL Normal 0.0-0.2 [facility] ([place]) Comment on above: Performed By: #### T SAMANTHA, CBC, BMP, MDW, GFR, ADIFF, ANEU #### [address] [address] Basophils/100 WBC (Bld) 0.8 % Normal 0.0-2.5 [facility] ([place]) Comment on above: Performed By: #### T EMELYNHS, CBC, BMP, MDW, GFR, ADIFF, ANEU #### [address] [address] Eosinophil, Absolute 0.4 10 3/mcL Normal 0.0-0.4 [facility] ([place]) Comment on above: Performed By: #### T EMELYNHS, CBC, BMP, MDW, GFR, ADIFF, ANEU #### [address] [address] Eosinophils/100 WBC (Bld) 8.4 % High 0.0-7.0 [facility] ([place]) Comment on above: Performed By: #### T ROPHS, CBC, BMP, MDW, GFR, ADIFF, ANEU #### [address] [address] Lymphocyte, Absolute 0.8 10 3/mcL Normal 0.8-3.9 [facility] ([place]) Comment on above: Performed By: #### T EMELYNHS, CBC, BMP, MDW, GFR, ADIFF, ANEU #### [address] [address] Lymphocytes/100 WBC (Bld) 17.0 % Normal 10.0-50.0 [facility] ([place]) Comment on above: Performed By: #### T SAMANTHA, CBC, BMP, MDW, GFR, ADIFF, ANEU #### [address] [address] Monocyte, Absolute 0.5 10 3/mcL Normal 0.2-1.0 [facility] ([place]) Comment on above: Performed By: #### T SAMANTHA, CBC, BMP, MDW, GFR, ADIFF, ANEU #### [address] [address] Monocytes/100 WBC (Bld) 9.9 % Normal 1.7-13.0 [facility] ([place]) Comment on above: Performed By: #### T SAMANTHA, CBC, BMP, MDW, GFR, ADIFF, ANEU #### [address] [address] Neutrophils/100 WBC (Bld) 63.9 % Normal 37.0-80.0 [facility] ([place]) Comment on above: Performed By: #### T SAMANTHA, CBC, BMP, MDW, GFR, ADIFF, ANEU #### [address] [address] .GFRon 10-25-2023 GFR Non- 75 ml/min/1.73sqm Normal [facility] ([place]) Comment on above: Result Comment: GFR Population [...] mL/min/1.73 square meters Performed By: #### T SAMANTHA, CBC, BMP, MDW, GFR, ADIFF, ANEU #### [address] [address] GFR 90 ml/min/1.73sqm Normal [facility] ([place]) Comment on above: Result Comment: GFR Population [...] mL/min/1.73 square meters Performed By: #### T SAMANTHA, CBC, BMP, MDW, GFR, ADIFF, ANEU #### [address] [address] .MDWon 10-25-2023 Monocyte Distribution Width 18.42 Normal 0.00-20.00 [facility] ([place]) Comment on above: Result Comment: For ED adult patients suspected of sepsis, MDW<=20.0 does not rule out sepsis or risk of sepsis Performed By: #### T SAMANTHA, CBC, BMP, MDW, GFR, ADIFF, ANEU #### [address] [address] .NEUABSon 10-25-2023 Neutrophil, Absolute 3.0 10 3/mcL Normal 2.9-6.2 [facility] ([place]) Comment on above: Performed By: #### T EMELYNHS, CBC, BMP, MDW, GFR, ADIFF, ANEU #### [address] [address] BMPon 10-25-2023 BUN/Creatinine Ratio 15 ratio Normal 7-27 [facility] ([place]) Comment on above: Performed By: #### T ROPHS, CBC, BMP, MDW, GFR, ADIFF, ANEU #### [address] [address] Calcium [Mass/Vol] 9.3 mg/dL Normal 8.4-10.2 [facility] ([place]) Comment on above: Performed By: #### T EMELYNHS, CBC, BMP, MDW, GFR, ADIFF, ANEU #### [address] [address] Chloride [Moles/Vol] 105 mmol/L Normal 98-107 [facility] ([place]) Comment on above: Performed By: #### T EMELYNHS, CBC, BMP, MDW, GFR, ADIFF, ANEU #### [address] [address] CO2 [Moles/Vol] 24 mmol/L Normal 22-29 [facility] ([place]) Comment on above: Performed By: #### T ROPHS, CBC, BMP, MDW, GFR, ADIFF, ANEU #### [address] [address] Creatinine [Mass/Vol] 1.08 mg/dL Normal 0.70-1.30 [facility] ([place]) Comment on above: Performed By: #### T ROPHS, CBC, BMP, MDW, GFR, ADIFF, ANEU #### [address] [address] Electrolyte Balance 12.0 mEq/L Normal 4.0-15.0 [facility] ([place]) Comment on above: Performed By: #### T ROPHS, CBC, BMP, MDW, GFR, ADIFF, ANEU #### [address] [address] Glucose [Mass/Vol] 114 mg/dL High 70-105 [facility] ([place]) Comment on above: Performed By: #### T SAMANTHA, CBC, BMP, MDW, GFR, ADIFF, ANEU #### [address] [address] Potassium [Moles/Vol] 4.0 mmol/L Normal 3.5-5.1 [facility] ([place]) Comment on above: Performed By: #### T SAMANTHA, CBC, BMP, MDW, GFR, ADIFF, ANEU #### [address] [address] Sodium [Moles/Vol] 141 mmol/L Normal 136-145 [facility] ([place] Comment on above: Performed By: #### T SAMANTHA, CBC, BMP, MDW, GFR, ADIFF, ANEU #### [address] [address] Urea nitrogen [Mass/Vol] 16 mg/dL Normal 7-18 [facility] ([place]) Comment on above: Performed By: #### T SAMANTHA, CBC, BMP, MDW, GFR, ADIFF, ANEU #### [address] [address] CBCon 10-25-2023 Erythrocyte distribution width (RBC) [Ratio] 14.3 % Normal 11.5-14.5 [facility] ([place]) Comment on above: Performed By: #### T SAMANTHA, CBC, BMP, MDW, GFR, ADIFF, ANEU #### [address] [address] Hematocrit (Bld) [Volume fraction] 43.3 % Normal 42.0-52.0 [facility] ([place]) Comment on above: Performed By: #### T SAMANTHA, CBC, BMP, MDW, GFR, ADIFF, ANEU #### [address] [address] Hgb 15.0 G/dL Normal 14.0-18.0 [facility] ([place]) Comment on above: Performed By: #### T SAMANTHA, CBC, BMP, MDW, GFR, ADIFF, ANEU #### [address] [address] MCH (RBC) [Entitic mass] 30.3 pg Normal 27.0-31.2 [facility] ([place]) Comment on above: Performed By: #### T SAMANTHA, CBC, BMP, MDW, GFR, ADIFF, ANEU #### [address] [address] MCHC 34.5 G/dL Normal 31.8-35.4 [facility] ([place]) Comment on above: Performed By: #### T SAMANTHA, CBC, BMP, MDW, GFR, ADIFF, ANEU #### [address] [address] MCV (RBC) [Entitic vol] 87.7 fL Normal 80.0-94.0 [facility] ([place]) Comment on above: Performed By: #### T SAMANTHA, CBC, BMP, MDW, GFR, ADIFF, ANEU #### [address] [address] Platelet 159 10 3/mcL Normal 130-400 [facility] ([place]) Comment on above: Performed By: #### T SAMANTHA, CBC, BMP, MDW, GFR, ADIFF, ANEU #### [address] [address] Platelet mean volume (Bld) [Entitic vol] 6.6 fL Low 7.4-10.4 [facility] ([place]) Comment on above: Performed By: #### T SAMANTHA, CBC, BMP, MDW, GFR, ADIFF, ANEU #### [address] [address] RBC 4.94 10 6/mcL Normal 4.04-6.13 [facility] ([place]) Comment on above: Performed By: #### T SAMANTHA, CBC, BMP, MDW, GFR, ADIFF, ANEU #### [address] [address] WBC 4.8 10 3/mcL Normal 4.6-10.8 [facility] ([place]) Comment on above: Performed By: #### T ROPHS, CBC, BMP, MDW, GFR, ADIFF, ANEU #### [place] [address] CVFLURVon 10-25-2023 FLU A PCR Negative Normal Negative [facility] ([place]) Comment on above: Performed By: #### C VFLURV #### [place] [address] FLU B PCR Negative Normal Negative [facility] ([place]) Comment on above: Performed By: #### C VFLURV #### [place] [address] RSV PCR Negative Normal Negative [facility] ([place]) Comment on above: Performed By: #### C VFLURV #### [place] [address] SARS-CoV-2 (COVID-19) RNA DANA+probe Ql (Unsp spec) Negative Normal Negative [facility] ([place]) Comment on above: Result Comment: Resu lts [...] inaccurate positive results. Performed By: #### C VFLURV #### [place] [address] LABORATORYOrdered By: SYSTEM SYSTEM on 10-25-2023 Basophil, [...] ng/L Male: 0-76 ng/L Testing performed on [employer] using a homogeneous sandwich chemiluminescent immunoassay based on [employer] technology. Urea nitrogen [Mass/Vol] 16 mg/dL Normal [...] influenza vaccines may cause inaccurate positive results. [facility] 10-25-2023 High Sensitivity Troponin I 5 ng/L Normal 0-76 [facility] ([place]) Comment on above: Result Comment: High Sensitive Troponin I Reference Ranges: Female: 0-51 ng/L Male: 0-76 ng/L Testing performed on [employer] using a homogeneous sandwich chemiluminescent immunoassay based on [employer] technology. Performed By: #### T ROPHS, CBC, BMP, MDW, GFR, ADMANULE, ANEU #### [address] [place] [id number] [place], [place] [address] XR CHEST 1 VIEWon 10-25-2023 XR CHEST [...] 10/25/2023 10:36:24 PM Ordering Provider: YVONNE MACE Normal [facility] ([place]) Absolute lymphocyte counton 06-16-2023 Lymphocytes Auto (Unsp spec) [#/Vol] 1.24 10*3/uL 0.83-4.51 [facility] Automated lymphocyte count a s percentage of total leukocyteson 06-16-2023 Lymphocytes/100 WBC Auto (Unsp spec) 23.8 % 19-41 [facility] Basophil percentageon 2023 Basophil percentage 3.0 mg/dL 2.5-4.9 [facility] Basophils/100 WBC (Bld) 1.0 % 0-1 [facility] Bilirubin [Mass/Vol] 1.90 mg/dL 0.20-1.00 [facility] Comment on above: For patients on eltr ombopag therapy, use of Dimension [place] TBIL is not recommended. Chloride [Moles/Vol] 109 mmol/L 98-107 [facility] Eosinophils/100 WBC (Bld) 6.5 % 0-5 [facility] Glucose [Mass/Vol] 121 mg/dL 74-106 [facility] Comment on above: Fasting Glucose resu lt from 100 to 125 mg/dL suggests IMPAIRED HOMEOSTASIS per A.D.A. criteria. Hemoglobin (Bld) [Mass/Vol] 13.8 g/dL 13.0-16.5 [facility] Monocytes/100 WBC (Bld) 10.2 % 0-10 [facility] Neutrophils (Bld) [#/Vol] 3.0 10*3/uL 2.0-7.7 [facility] Neutrophils/100 WBC (Bld) 58.1 % 47-70 [facility] Potassium [Moles/Vol] 4.1 mmol/L 3.5-5.1 [facility] Protein [Mass/Vol] 6.8 g/dL 6.4-8.2 [facility] Sodium [Moles/Vol] 135 mmol/L 136-145 [facility] WBC (Bld) [#/Vol] 5.2 10*3/uL 4.4-11.0 [facility] Determination of erythrocyte mean corpuscular volume (MCV)on 06-16-2023 MCV (RBC) [Entitic vol] 86.5 fL 80-94 [facility] Direct bilirubinon Bilirubin.direct [Mass/Vol] 0.44 mg/dL 0.00-0.30 [facility] Erythrocyte distribution wid th ratioon 06-16-2023 Erythrocyte distribution width (RBC) [Ratio] 13.2 % 11.6-14.6 [facility] Erythrocyte distribution wid th standard deviationon 06-16-2023 Erythrocyte distribution width (RBC) [Entitic vol] 41.1 fL 35.1-43.9 [facility] Hematocrit Auto (Bld) [Volum e fraction]on 06-16-2023 Hematocrit (Bld) [Volume fraction] 40.2 % 40-54 [facility] Immature granulocytes/100 WB C Auto (Bld)on 06-16-2023 Immature granulocytes/100 WBC (Bld) 0.400 % 0.0-0.9 [facility] Comment on above: IG% - Immature Granu locytes (promyelocytes, myelocytes and metamyelocytes) > 1% indicates that a LEFT SHIFT is Present. Laboratory - Chemistry and C hemistry - challengeon 06-16-2023 ALP [Catalytic activity/Vol] 76 U/L 45-117 [facility] ALT [Catalytic activity/Vol] 19 U/L 16-61 [facility] Amylase [Catalytic activity/Vol] 46 U/L 15-85 [facility] CO2 [Moles/Vol] 21.0 mmol/L 21.0-32.0 [facility] Globulin (S) [Mass/Vol] 3.0 g/dL 2.2-4.2 [facility] Magnesium [Mass/Vol] 1.7 mg/dL 1.6-2.6 [facility] Urea nitrogen/Creatinine [Mass ratio] 24.2 mg/mg 10-20 [facility] Laboratory - Hematology and Cell countson 06-16-2023 MCH (RBC) [Entitic mass] 29.7 pg 27.0-32.0 [facility] MCHC (RBC) [Mass/Vol] 34.3 g/dL 32-36 [facility] Nucleated RBC/100 WBC (Bld) [Ratio] 0 % 0-5 [facility] Platelet mean volume (Bld) [Entitic vol] 9.4 fL 6.2-12.0 [facility] Platelets (Bld) [#/Vol] 169 10*3/uL 150-450 [facility] No Panel Informationon 06-16 Estimated GFR (MDRD) Amer 85 mL/min >60 [facility] Comment on above: GFR Calc Estimated GFR (MDRD) Non-Af Amer 70 mL/min >60 [facility] Comment on above: Non- GFR Calc Tacrolimus (Prograf) Level 8.6 ng/mL 2.0-20.0 [facility] Comment on above: Trough (immediately following transplant) 15.0 Trough (steady state, 2 weeks or more after transplant): 3.0 - 8.0 Performed by LC-MS/MS technology.Performed at: [employer] [id number] Director: Arlyn Avila MD, Phone: [phone] RBC Auto (Bld) [#/Vol]on RBC (Bld) [#/Vol] 4.65 10*6/uL 4.6-6.2 [facility] Serum or plasma calcium ginny urement (mass/volume)on 06-16-2023 Calcium [Mass/Vol] 8.8 mg/dL 8.5-10.1 [facility] Serum or plasma creatinine m easurement (mass/volume)on 06-16-2023 Creatinine [Mass/Vol] 1.20 mg/dL 0.70-1.30 [facility] Comment on above: The validity of the calculated GFR & GFRAA in patients over 70 years has not been determined. Clinical correlation is essential. Serum or plasma urea nitroge n measurement (mass/volume)on 06-16-2023 Urea nitrogen [Mass/Vol] 29 mg/dL 7-18 [facility] Thin prep Papanicolaou smear with manual screeningon 06-16-2023 Thin prep Papanicolaou smear with manual screening 3.8 g/dL 3.2-5.0 [facility] Thin prep Papanicolaou smear with manual screening 14 U/L 15-37 [facility] Thin prep Papanicolaou smear with manual screening 5 5-15 [facility] Absolute lymphocyte counton 03-10-2023 Lymphocytes Auto (Unsp spec) [#/Vol] 1.26 10*3/uL 0.83-4.51 [facility] Basophil percentageon 2022 Basophil percentage 3.3 mg/dL 2.5-4.9 [facility] Basophils/100 WBC (Bld) 1.2 % 0-1 [facility] Bilirubin [Mass/Vol] 1.00 mg/dL 0.20-1.00 [facility] Comment on above: For patients on eltr ombopag therapy, use of Dimension [place] TBIL is not recommended. Chloride [Moles/Vol] 109 mmol/L 98-107 [facility] Eosinophils/100 WBC (Bld) 4.7 % 0-5 [facility] Glucose [Mass/Vol] 114 mg/dL 74-106 [facility] Comment on above: Fasting Glucose resu lt from 100 to 125 mg/dL suggests IMPAIRED HOMEOSTASIS per A.D.A. criteria. Neutrophils (Bld) [#/Vol] 2.4 10*3/uL 2.0-7.7 [facility] Neutrophils/100 WBC (Bld) 55.3 % 47-70 [facility] Potassium [Moles/Vol] 4.8 mmol/L 3.5-5.1 [facility] Protein [Mass/Vol] 6.8 g/dL 6.4-8.2 [facility] Sodium [Moles/Vol] 140 mmol/L 136-145 [facility] WBC (Bld) [#/Vol] 4.3 10*3/uL 4.4-11.0 [facility] Blood erythrocytes count (nu mber/volume)on 03-10-2023 RBC (Bld) [#/Vol] 4.36 10*6/uL 4.6-6.2 [facility] Blood hemoglobin measurement (mass/volume)on 03-10-2023 Hemoglobin (Bld) [Mass/Vol] 12.7 g/dL 13.0-16.5 [facility] Blood lymphocytes/100 leukoc yteson 03-10-2023 Lymphocytes/100 WBC (Bld) 29.5 % 19-41 [facility] Blood monocytes/100 leukocyt eson 03-10-2023 Monocytes/100 WBC (Bld) 9.1 % 0-10 [facility] Blood platelet mean volumeon 03-10-2023 Platelet mean volume (Bld) [Entitic vol] 9.3 fL 6.2-12.0 [facility] Determination of erythrocyte mean corpuscular volume (MCV)on 03-10-2023 MCV (RBC) [Entitic vol] 90.4 fL 80-94 [facility] Direct bilirubinon 3 Bilirubin.direct [Mass/Vol] 0.26 mg/dL 0.00-0.30 [facility] Hematocrit Auto (Bld) [Volum e fraction]on 03-10-2023 Hematocrit (Bld) [Volume fraction] 39.4 % 40-54 [facility] Laboratory - Chemistry and C hemistry - challengeon 03-10-2023 ALP [Catalytic activity/Vol] 83 U/L 45-117 [facility] ALT [Catalytic activity/Vol] 28 U/L 16-61 [facility] Amylase [Catalytic activity/Vol] 44 U/L 15-85 [facility] CO2 [Moles/Vol] 24.0 mmol/L 21.0-32.0 [facility] Globulin (S) [Mass/Vol] 3.1 g/dL 2.2-4.2 [facility] Magnesium [Mass/Vol] 2.0 mg/dL 1.6-2.6 [facility] Urea nitrogen/Creatinine [Mass ratio] 25.2 mg/mg 10-20 [facility] Laboratory - Hematology and Cell countson 03-10-2023 Erythrocyte distribution width (RBC) [Entitic vol] 40.9 fL 35.1-43.9 [facility] Erythrocyte distribution width (RBC) [Ratio] 12.4 % 11.6-14.6 [facility] Immature granulocytes/100 WBC (Bld) 0.200 % 0.0-0.9 [facility] Comment on above: IG% - Immature Granu locytes (promyelocytes, myelocytes and metamyelocytes) > 1% indicates that a LEFT SHIFT is Present. MCH (RBC) [Entitic mass] 29.1 pg 27.0-32.0 [facility] Nucleated RBC/100 WBC (Bld) [Ratio] 0 % 0-5 [facility] MCHC Auto (RBC) [Mass/Vol]on 03-10-2023 MCHC (RBC) [Mass/Vol] 32.2 g/dL 32-36 [facility] No Panel Informationon 03-10 Estimated GFR (MDRD) Amer 77 mL/min >60 [facility] Comment on above: GFR Calc Estimated GFR (MDRD) Non-Af Amer 63 mL/min >60 [facility] Comment on above: Non- GFR Calc Tacrolimus (Prograf) Level 10.4 ng/mL 2.0-20.0 [facility] Comment on above: Trough (immediately following transplant) 15.0 Trough (steady state, 2 weeks or more after transplant): 3.0 - 8.0 Performed by LC-MS/MS technology.Performed at: [employer] [id number] Director: Arlyn Avila MD, Phone: [phone] Platelets bldon 03-10-2023 Platelets (Bld) [#/Vol] 151 10*3/uL 150-450 [facility] Serum or plasma albumin ginny urement (mass/volume)on 03-10-2023 Albumin [Mass/Vol] 3.7 g/dL 3.2-5.0 [facility] Serum or plasma calcium ginny urement (mass/volume)on 03-10-2023 Calcium [Mass/Vol] 8.6 mg/dL 8.5-10.1 [facility] Serum or plasma creatinine m easurement (mass/volume)on 03-10-2023 Creatinine [Mass/Vol] 1.31 mg/dL 0.70-1.30 [facility] Comment on above: The validity of the calculated GFR & GFRAA in patients over 70 years has not been determined. Clinical correlation is essential. Serum or plasma urea nitroge n measurement (mass/volume)on 03-10-2023 Urea nitrogen [Mass/Vol] 33 mg/dL 7-18 [facility] Thin prep Papanicolaou smear with manual screeningon 03-10-2023 Thin prep Papanicolaou smear with manual screening 18 U/L 15-37 [facility] Thin prep Papanicolaou smear with manual screening 7 5-15 [facility] Absolute lymphocyte counton 09-18-2022 Lymphocytes Auto (Unsp spec) [#/Vol] 1.49 10*3/uL 0.83-4.51 [facility] Basophil percentageon 2022 Basophil percentage 2.5 mg/dL 2.5-4.9 [facility] Basophils/100 WBC (Bld) 1.0 % 0-1 [facility] Bilirubin [Mass/Vol] 0.90 mg/dL 0.20-1.00 [facility] Comment on above: For patients on eltr ombopag therapy, use of Dimension [place] TBIL is not recommended. Chloride [Moles/Vol] 111 mmol/L 98-107 [facility] Eosinophils/100 WBC (Bld) 4.4 % 0-5 [facility] Glucose [Mass/Vol] 116 mg/dL 74-106 [facility] Comment on above: Fasting Glucose resu lt from 100 to 125 mg/dL suggests IMPAIRED HOMEOSTASIS per A.D.A. criteria. Neutrophils (Bld) [#/Vol] 2.8 10*3/uL 2.0-7.7 [facility] Neutrophils/100 WBC (Bld) 54.9 % 47-70 [facility] Potassium [Moles/Vol] 4.4 mmol/L 3.5-5.1 [facility] Protein [Mass/Vol] 7.1 g/dL 6.4-8.2 [facility] Sodium [Moles/Vol] 139 mmol/L 136-145 [facility] WBC (Bld) [#/Vol] 5.0 10*3/uL 4.4-11.0 [facility] Blood erythrocytes count (nu mber/volume)on 09-18-2022 RBC (Bld) [#/Vol] 4.65 10*6/uL 4.6-6.2 [facility] Blood hemoglobin measurement (mass/volume)on 09-18-2022 Hemoglobin (Bld) [Mass/Vol] 13.9 g/dL 13.0-16.5 [facility] Blood lymphocytes/100 leukoc yteson 09-18-2022 Lymphocytes/100 WBC (Bld) 29.6 % 19-41 [facility] Blood monocytes/100 leukocyt eson 09-18-2022 Monocytes/100 WBC (Bld) 9.7 % 0-10 [facility] Blood platelet mean volumeon 09-18-2022 Platelet mean volume (Bld) [Entitic vol] 9.5 fL 6.2-12.0 [facility] Determination of erythrocyte mean corpuscular volume (MCV)on 09-18-2022 MCV (RBC) [Entitic vol] 89.0 fL 80-94 [facility] Direct bilirubinon Bilirubin.direct [Mass/Vol] 0.25 mg/dL 0.00-0.30 [facility] Hematocrit Auto (Bld) [Volum e fraction]on 09-18-2022 Hematocrit (Bld) [Volume fraction] 41.4 % 40-54 [facility] INR in Blood by Coagulation assayon 09-18-2022 INR Coag (Bld) [Relative time] 1.1 {INR} [facility] Laboratory - Chemistry and C hemistry - challengeon 09-18-2022 ALP [Catalytic activity/Vol] 99 U/L 45-117 [facility] ALT [Catalytic activity/Vol] 22 U/L 16-61 [facility] Amylase [Catalytic activity/Vol] 85 U/L 15-85 [facility] CO2 [Moles/Vol] 20.0 mmol/L 21.0-32.0 [facility] Globulin (S) [Mass/Vol] 3.5 g/dL 2.2-4.2 [facility] Magnesium [Mass/Vol] 1.8 mg/dL 1.6-2.6 [facility] Urea nitrogen/Creatinine [Mass ratio] 18.3 mg/mg 10-20 [facility] Laboratory - Coagulationon 0 09-18-2022 PT Coag (PPP) [Time] 14.7 s 11.7-14.9 [facility] Laboratory - Hematology and Cell countson 09-18-2022 Erythrocyte distribution width (RBC) [Entitic vol] 43.6 fL 35.1-43.9 [facility] Erythrocyte distribution width (RBC) [Ratio] 13.6 % 11.6-14.6 [facility] Immature granulocytes/100 WBC (Bld) 0.400 % 0.0-0.9 [facility] Comment on above: IG% - Immature Granu locytes (promyelocytes, myelocytes and metamyelocytes) > 1% indicates that a LEFT SHIFT is Present. MCH (RBC) [Entitic mass] 29.9 pg 27.0-32.0 [facility] Nucleated RBC/100 WBC (Bld) [Ratio] 0 % 0-5 [facility] MCHC Auto (RBC) [Mass/Vol]on 09-18-2022 MCHC (RBC) [Mass/Vol] 33.6 g/dL 32-36 [facility] No Panel Informationon 09-18 Estimated GFR (MDRD) Amer 100 mL/min >60 [facility] Comment on above: GFR Calc Estimated GFR (MDRD) Non-Af Amer 83 mL/min >60 [facility] Comment on above: Non- GFR Calc Tacrolimus (Prograf) Level 9.8 ng/mL 2.0-20.0 [facility] Comment on above: Trough (immediately following transplant) 15.0 Trough (steady state, 2 weeks or more after transplant): 3.0 - 8.0 Performed by LC-MS/MS technology.Performed at: [employer] [id number] Director: Arlyn Avila MD, Phone: [phone] Platelets bldon 09-18-2022 Platelets (Bld) [#/Vol] 184 10*3/uL 150-450 [facility] Serum or plasma albumin ginny urement (mass/volume)on 09-18-2022 Albumin [Mass/Vol] 3.6 g/dL 3.2-5.0 [facility] Serum or plasma calcium ginny urement (mass/volume)on 09-18-2022 Calcium [Mass/Vol] 8.6 mg/dL 8.5-10.1 [facility] Serum or plasma creatinine m easurement (mass/volume)on 09-18-2022 Creatinine [Mass/Vol] 1.04 mg/dL 0.70-1.30 [facility] Comment on above: The validity of the calculated GFR & GFRAA in patients over 70 years has not been determined. Clinical correlation is essential. Serum or plasma urea nitroge n measurement (mass/volume)on 09-18-2022 Urea nitrogen [Mass/Vol] 19 mg/dL 7-18 [facility] Thin prep Papanicolaou smear with manual screeningon 09-18-2022 Thin prep Papanicolaou smear with manual screening 19 U/L 15-37 [facility] Thin prep Papanicolaou smear with manual screening 8 5-15 [facility] Absolute lymphocyte counton 07-31-2022 Lymphocytes Auto (Unsp spec) [#/Vol] 1.31 10*3/uL 0.83-4.51 [facility] Basophil percentageon 2022 Basophil percentage 2.4 mg/dL 2.5-4.9 [facility] Basophils/100 WBC (Bld) 0.8 % 0-1 [facility] Bilirubin [Mass/Vol] 0.80 mg/dL 0.20-1.00 [facility] Comment on above: For patients on eltr ombopag therapy, use of Dimension [place] TBIL is not recommended. Chloride [Moles/Vol] 108 mmol/L 98-107 [facility] Eosinophils/100 WBC (Bld) 4.3 % 0-5 [facility] Glucose [Mass/Vol] 105 mg/dL 74-106 [facility] Comment on above: Fasting Glucose resu lt from 100 to 125 mg/dL suggests IMPAIRED HOMEOSTASIS per A.D.A. criteria. Neutrophils (Bld) [#/Vol] 3.0 10*3/uL 2.0-7.7 [facility] Neutrophils/100 WBC (Bld) 58.3 % 47-70 [facility] Potassium [Moles/Vol] 4.3 mmol/L 3.5-5.1 [facility] Protein [Mass/Vol] 6.6 g/dL 6.4-8.2 [facility] Sodium [Moles/Vol] 137 mmol/L 136-145 [facility] WBC (Bld) [#/Vol] 5.1 10*3/uL 4.4-11.0 [facility] Blood erythrocytes count (nu mber/volume)on 07-31-2022 RBC (Bld) [#/Vol] 4.35 10*6/uL 4.6-6.2 [facility] Blood hemoglobin measurement (mass/volume)on 07-31-2022 Hemoglobin (Bld) [Mass/Vol] 12.9 g/dL 13.0-16.5 [facility] Blood lymphocytes/100 leukoc yteson 07-31-2022 Lymphocytes/100 WBC (Bld) 25.6 % 19-41 [facility] Blood monocytes/100 leukocyt eson 07-31-2022 Monocytes/100 WBC (Bld) 10.4 % 0-10 [facility] Blood platelet mean volumeon 07-31-2022 Platelet mean volume (Bld) [Entitic vol] 9.4 fL 6.2-12.0 [facility] Determination of erythrocyte mean corpuscular volume (MCV)on 07-31-2022 MCV (RBC) [Entitic vol] 88.7 fL 80-94 [facility] Direct bilirubinon Bilirubin.direct [Mass/Vol] 0.25 mg/dL 0.00-0.30 [facility] Hematocrit Auto (Bld) [Volum e fraction]on 07-31-2022 Hematocrit (Bld) [Volume fraction] 38.6 % 40-54 [facility] INR in Blood by Coagulation assayon 07-31-2022 INR Coag (Bld) [Relative time] 1.2 {INR} [facility] Laboratory - Chemistry and C hemistry - challengeon 07-31-2022 ALP [Catalytic activity/Vol] 102 U/L 45-117 [facility] ALT [Catalytic activity/Vol] 38 U/L 16-61 [facility] Amylase [Catalytic activity/Vol] 103 U/L 15-85 [facility] CO2 [Moles/Vol] 21.0 mmol/L 21.0-32.0 [facility] Globulin (S) [Mass/Vol] 3.2 g/dL 2.2-4.2 [facility] Magnesium [Mass/Vol] 1.6 mg/dL 1.6-2.6 [facility] Urea nitrogen/Creatinine [Mass ratio] 18.3 mg/mg 10-20 [facility] Laboratory - Coagulationon 0 07-31-2022 PT Coag (PPP) [Time] 15.1 s 11.7-14.9 [facility] Laboratory - Hematology and Cell countson 07-31-2022 Erythrocyte distribution width (RBC) [Entitic vol] 41.3 fL 35.1-43.9 [facility] Erythrocyte distribution width (RBC) [Ratio] 12.6 % 11.6-14.6 [facility] Immature granulocytes/100 WBC (Bld) 0.600 % 0.0-0.9 [facility] Comment on above: IG% - Immature Granu locytes (promyelocytes, myelocytes and metamyelocytes) > 1% indicates that a LEFT SHIFT is Present. MCH (RBC) [Entitic mass] 29.7 pg 27.0-32.0 [facility] Nucleated RBC/100 WBC (Bld) [Ratio] 0 % 0-5 [facility] MCHC Auto (RBC) [Mass/Vol]on 07-31-2022 MCHC (RBC) [Mass/Vol] 33.4 g/dL 32-36 [facility] No Panel Informationon 07-31 Estimated GFR (MDRD) Amer 90 mL/min >60 [facility] Comment on above: GFR Calc Estimated GFR (MDRD) Non-Af Amer 74 mL/min >60 [facility] Comment on above: Non- GFR Calc Platelets bldon 07-31-2022 Platelets (Bld) [#/Vol] 171 10*3/uL 150-450 [facility] Serum or plasma albumin ginny urement (mass/volume)on 07-31-2022 Albumin [Mass/Vol] 3.4 g/dL 3.2-5.0 [facility] Serum or plasma calcium ginny urement (mass/volume)on 07-31-2022 Calcium [Mass/Vol] 8.6 mg/dL 8.5-10.1 [facility] Serum or plasma creatinine m easurement (mass/volume)on 07-31-2022 Creatinine [Mass/Vol] 1.15 mg/dL 0.70-1.30 [facility] Comment on above: The validity of the calculated GFR & GFRAA in patients over 70 years has not been determined. Clinical correlation is essential. Serum or plasma urea nitroge n measurement (mass/volume)on 07-31-2022 Urea nitrogen [Mass/Vol] 21 mg/dL 7-18 [facility] Thin prep Papanicolaou smear with manual screeningon 07-31-2022 Thin prep Papanicolaou smear with manual screening 29 U/L 15-37 [facility] Thin prep Papanicolaou smear with manual screening 8 5-15 [facility] Absolute lymphocyte counton 07-17-2022 Lymphocytes Auto (Unsp spec) [#/Vol] 0.98 10*3/uL 0.83-4.51 [facility] Basophil percentageon 2022 Basophils/100 WBC (Bld) 0.9 % 0-1 [facility] Bilirubin [Mass/Vol] 0.90 mg/dL 0.20-1.00 [facility] Comment on above: For patients on eltr ombopag therapy, use of Dimension [place] TBIL is not recommended. Chloride [Moles/Vol] 111 mmol/L 98-107 [facility] Eosinophils/100 WBC (Bld) 6.8 % 0-5 [facility] Glucose [Mass/Vol] 119 mg/dL 74-106 [facility] Comment on above: Fasting Glucose resu lt from 100 to 125 mg/dL suggests IMPAIRED HOMEOSTASIS per A.D.A. criteria. Neutrophils (Bld) [#/Vol] 2.6 10*3/uL 2.0-7.7 [facility] Neutrophils/100 WBC (Bld) 59.4 % 47-70 [facility] Potassium [Moles/Vol] 4.1 mmol/L 3.5-5.1 [facility] Protein [Mass/Vol] 6.7 g/dL 6.4-8.2 [facility] Sodium [Moles/Vol] 140 mmol/L 136-145 [facility] WBC (Bld) [#/Vol] 4.4 10*3/uL 4.4-11.0 [facility] Blood erythrocytes count (nu mber/volume)on 07-17-2022 RBC (Bld) [#/Vol] 4.51 10*6/uL 4.6-6.2 [facility] Blood hemoglobin measurement (mass/volume)on 07-17-2022 Hemoglobin (Bld) [Mass/Vol] 13.6 g/dL 13.0-16.5 [facility] Blood lymphocytes/100 leukoc yteson 07-17-2022 Lymphocytes/100 WBC (Bld) 22.2 % 19-41 [facility] Blood monocytes/100 leukocyt eson 07-17-2022 Monocytes/100 WBC (Bld) 10.2 % 0-10 [facility] Blood platelet mean volumeon 07-17-2022 Platelet mean volume (Bld) [Entitic vol] 9.1 fL 6.2-12.0 [facility] Determination of erythrocyte mean corpuscular volume (MCV)on 07-17-2022 MCV (RBC) [Entitic vol] 89.4 fL 80-94 [facility] Direct bilirubinon Bilirubin.direct [Mass/Vol] 0.29 mg/dL 0.00-0.30 [facility] Hematocrit Auto (Bld) [Volum e fraction]on 07-17-2022 Hematocrit (Bld) [Volume fraction] 40.3 % 40-54 [facility] Laboratory - Chemistry and C hemistry - challengeon 07-17-2022 ALP [Catalytic activity/Vol] 105 U/L 45-117 [facility] ALT [Catalytic activity/Vol] 50 U/L 16-61 [facility] Amylase [Catalytic activity/Vol] 97 U/L 15-85 [facility] CO2 [Moles/Vol] 23.0 mmol/L 21.0-32.0 [facility] Globulin (S) [Mass/Vol] 3.3 g/dL 2.2-4.2 [facility] Urea nitrogen/Creatinine [Mass ratio] 21.0 mg/mg 10-20 [facility] Laboratory - Hematology and Cell countson 07-17-2022 Erythrocyte distribution width (RBC) [Entitic vol] 41.9 fL 35.1-43.9 [facility] Erythrocyte distribution width (RBC) [Ratio] 12.7 % 11.6-14.6 [facility] Immature granulocytes/100 WBC (Bld) 0.500 % 0.0-0.9 [facility] Comment on above: IG% - Immature Granu locytes (promyelocytes, myelocytes and metamyelocytes) > 1% indicates that a LEFT SHIFT is Present. MCH (RBC) [Entitic mass] 30.2 pg 27.0-32.0 [facility] Nucleated RBC/100 WBC (Bld) [Ratio] 0 % 0-5 [facility] MCHC Auto (RBC) [Mass/Vol]on 07-17-2022 MCHC (RBC) [Mass/Vol] 33.7 g/dL 32-36 [facility] No Panel Informationon 07-17 Estimated GFR (MDRD) Amer 99 mL/min >60 [facility] Comment on above: GFR Calc Estimated GFR (MDRD) Non-Af Amer 82 mL/min >60 [facility] Comment on above: Non- GFR Calc Miscellaneous Test See comment [facility] Comment on above: TEST RESULT LIMITSHB V Real-Time PCR, Quant HBV IU/mL HBV DNA not detected IU/mL log10 HBV IU/mL Unable to calculate result since non-numeric result obtained for component test.Test Information: The reportable range for this assay is 10 IU/mL to 1 billion IU/mL. TESTING PERFORMED AT [facility]. ORIGINAL REPORT ON FILE IN LAB CONTAINS ADDITIONAL TEST SITE INFORMATION. Tacrolimus (Prograf) Level 5.7 ng/mL 2.0-20.0 [facility] Comment on above: Trough (immediately following transplant) 15.0 Trough (steady state, 2 weeks or more after transplant): 3.0 - 8.0 Performed by LC-MS/MS technology.Performed at: [address] [id number] Director: Arlyn Avila MD, Phone: [phone] Platelets bldon 07-17-2022 Platelets (Bld) [#/Vol] 159 10*3/uL 150-450 [facility] Serum or plasma albumin ginny urement (mass/volume)on 07-17-2022 Albumin [Mass/Vol] 3.4 g/dL 3.2-5.0 [facility] Serum or plasma calcium ginny urement (mass/volume)on 07-17-2022 Calcium [Mass/Vol] 8.8 mg/dL 8.5-10.1 [facility] Serum or plasma creatinine m easurement (mass/volume)on 07-17-2022 Creatinine [Mass/Vol] 1.05 mg/dL 0.70-1.30 [facility] Comment on above: The validity of the calculated GFR & GFRAA in patients over 70 years has not been determined. Clinical correlation is essential. Serum or plasma urea nitroge n measurement (mass/volume)on 07-17-2022 Urea nitrogen [Mass/Vol] 22 mg/dL 7-18 [facility] Thin prep Papanicolaou smear with manual screeningon 07-17-2022 Thin prep Papanicolaou smear with manual screening 36 U/L 15-37 [facility] Thin prep Papanicolaou smear with manual screening 6 5-15 [facility] Absolute lymphocyte counton 06-20-2022 Lymphocytes Auto (Unsp spec) [#/Vol] 1.25 10*3/uL 0.83-4.51 [facility] Basophil percentageon 2022 Basophil percentage 3.7 mg/dL 2.5-4.9 [facility] Basophils/100 WBC (Bld) 0.6 % 0-1 [facility] Bilirubin [Mass/Vol] 0.70 mg/dL 0.20-1.00 [facility] Comment on above: For patients on eltr ombopag therapy, use of Dimension [place] TBIL is not recommended. Chloride [Moles/Vol] 108 mmol/L 98-107 [facility] Eosinophils/100 WBC (Bld) 6.9 % 0-5 [facility] Glucose [Mass/Vol] 90 mg/dL 74-106 [facility] Neutrophils (Bld) [#/Vol] 2.8 10*3/uL 2.0-7.7 [facility] Neutrophils/100 WBC (Bld) 57.8 % 47-70 [facility] Potassium [Moles/Vol] 4.2 mmol/L 3.5-5.1 [facility] Protein [Mass/Vol] 7.0 g/dL 6.4-8.2 [facility] Sodium [Moles/Vol] 139 mmol/L 136-145 [facility] WBC (Bld) [#/Vol] 4.9 10*3/uL 4.4-11.0 [facility] Blood erythrocytes count (nu mber/volume)on 06-20-2022 RBC (Bld) [#/Vol] 4.35 10*6/uL 4.6-6.2 [facility] Blood hemoglobin measurement (mass/volume)on 06-20-2022 Hemoglobin (Bld) [Mass/Vol] 13.3 g/dL 13.0-16.5 [facility] Blood lymphocytes/100 leukoc yteson 06-20-2022 Lymphocytes/100 WBC (Bld) 25.5 % 19-41 [facility] Blood monocytes/100 leukocyt eson 06-20-2022 Monocytes/100 WBC (Bld) 8.8 % 0-10 [facility] Blood platelet mean volumeon 06-20-2022 Platelet mean volume (Bld) [Entitic vol] 9.2 fL 6.2-12.0 [facility] Determination of erythrocyte mean corpuscular volume (MCV)on 06-20-2022 MCV (RBC) [Entitic vol] 91.0 fL 80-94 [facility] Direct bilirubinon Bilirubin.direct [Mass/Vol] 0.20 mg/dL 0.00-0.30 [facility] Hematocrit Auto (Bld) [Volum e fraction]on 06-20-2022 Hematocrit (Bld) [Volume fraction] 39.6 % 40-54 [facility] INR in Blood by Coagulation assayon 06-20-2022 INR Coag (Bld) [Relative time] 1.1 {INR} [facility] Laboratory - Chemistry and C hemistry - challengeon 06-20-2022 ALP [Catalytic activity/Vol] 117 U/L 45-117 [facility] ALT [Catalytic activity/Vol] 36 U/L 16-61 [facility] Amylase [Catalytic activity/Vol] 89 U/L 15-85 [facility] CO2 [Moles/Vol] 24.0 mmol/L 21.0-32.0 [facility] Globulin (S) [Mass/Vol] 3.5 g/dL 2.2-4.2 [facility] Magnesium [Mass/Vol] 1.9 mg/dL 1.6-2.6 [facility] Urea nitrogen/Creatinine [Mass ratio] 18.2 mg/mg 10-20 [facility] - Coagulationon 0 06-20-2022 PT Coag (PPP) [Time] 14.0 s 11.7-14.9 [facility] - Hematology and Cell countson 06-20-2022 Erythrocyte distribution width (RBC) [Entitic vol] 41.1 fL 35.1-43.9 [facility] Erythrocyte distribution width (RBC) [Ratio] 12.4 % 11.6-14.6 [facility] Immature granulocytes/100 WBC (Bld) 0.400 % 0.0-0.9 [facility] Comment on above: IG% - Immature Granu locytes (promyelocytes, myelocytes and metamyelocytes) > 1% indicates that a LEFT SHIFT is Present. MCH (RBC) [Entitic mass] 30.6 pg 27.0-32.0 [facility] Nucleated RBC/100 WBC (Bld) [Ratio] 0 % 0-5 [facility] MCHC Auto (RBC) [Mass/Vol]on 06-20-2022 MCHC (RBC) [Mass/Vol] 33.6 g/dL 32-36 [facility] No Panel Informationon 06-20 Estimated GFR (MDRD) Amer 94 mL/min >60 [facility] Comment on above: GFR Calc Estimated GFR (MDRD) Non-Af Amer 78 mL/min >60 [facility] Comment on above: Non- GFR Calc Tacrolimus (Prograf) Level 6.8 ng/mL 2.0-20.0 [facility] Comment on above: Trough (immediately following transplant) 15.0 Trough (steady state, 2 weeks or more after transplant): 3.0 - 8.0 Performed by LC-MS/MS technology.Performed at: [address] [id number] Director: Arlyn Avila MD, Phone: [phone] Platelets bldon 06-20-2022 Platelets (Bld) [#/Vol] 178 10*3/uL 150-450 [facility] Serum or plasma albumin ginny urement (mass/volume)on 06-20-2022 Albumin [Mass/Vol] 3.5 g/dL 3.2-5.0 [facility] Serum or plasma calcium ginny urement (mass/volume)on 06-20-2022 Calcium [Mass/Vol] 9.2 mg/dL 8.5-10.1 [facility] Serum or plasma creatinine m easurement (mass/volume)on 06-20-2022 Creatinine [Mass/Vol] 1.10 mg/dL 0.70-1.30 [facility] Comment on above: The validity of the calculated GFR & GFRAA in patients over 70 years has not been determined. Clinical correlation is essential. Serum or plasma urea nitroge n measurement (mass/volume)on 06-20-2022 Urea nitrogen [Mass/Vol] 20 mg/dL 7-18 [facility] Thin prep Papanicolaou smear with manual screeningon 06-20-2022 Thin prep Papanicolaou smear with manual screening 26 U/L 15-37 [facility] Thin prep Papanicolaou smear with manual screening 7 5-15 [facility] Absolute lymphocyte counton 05-30-2022 Lymphocytes Auto (Unsp spec) [#/Vol] 1.56 10*3/uL 0.83-4.51 [facility] Basophil percentageon 2022 Basophil percentage 2.8 mg/dL 2.5-4.9 [facility] Basophils/100 WBC (Bld) 0.7 % 0-1 [facility] Bilirubin [Mass/Vol] 1.20 mg/dL 0.20-1.00 [facility] Comment on above: For patients on eltr ombopag therapy, use of Dimension [place] TBIL is not recommended. Chloride [Moles/Vol] 109 mmol/L 98-107 [facility] Eosinophils/100 WBC (Bld) 4.7 % 0-5 [facility] Glucose [Mass/Vol] 105 mg/dL 74-106 [facility] Comment on above: Fasting Glucose resu lt from 100 to 125 mg/dL suggests IMPAIRED HOMEOSTASIS per A.D.A. criteria. Neutrophils (Bld) [#/Vol] 1.9 10*3/uL 2.0-7.7 [facility] Neutrophils/100 WBC (Bld) 46.9 % 47-70 [facility] Potassium [Moles/Vol] 4.2 mmol/L 3.5-5.1 [facility] Protein [Mass/Vol] 7.0 g/dL 6.4-8.2 [facility] Sodium [Moles/Vol] 141 mmol/L 136-145 [facility] WBC (Bld) [#/Vol] 4.1 10*3/uL 4.4-11.0 [facility] Blood erythrocytes count (nu mber/volume)on 05-30-2022 RBC (Bld) [#/Vol] 4.27 10*6/uL 4.6-6.2 [facility] Blood hemoglobin measurement (mass/volume)on 05-30-2022 Hemoglobin (Bld) [Mass/Vol] 13.0 g/dL 13.0-16.5 [facility] Blood lymphocytes/100 leukoc yteson 05-30-2022 Lymphocytes/100 WBC (Bld) 38.2 % 19-41 [facility] Blood monocytes/100 leukocyt eson 05-30-2022 Monocytes/100 WBC (Bld) 9.3 % 0-10 [facility] Blood platelet mean volumeon 05-30-2022 Platelet mean volume (Bld) [Entitic vol] 9.5 fL 6.2-12.0 [facility] Determination of erythrocyte mean corpuscular volume (MCV)on 05-30-2022 MCV (RBC) [Entitic vol] 91.3 fL 80-94 [facility] Direct bilirubinon 3 Bilirubin.direct [Mass/Vol] 0.30 mg/dL 0.00-0.30 [facility] Hematocrit Auto (Bld) [Volum e fraction]on 05-30-2022 Hematocrit (Bld) [Volume fraction] 39.0 % 40-54 [facility] INR in Blood by Coagulation assayon 05-30-2022 INR Coag (Bld) [Relative time] 1.2 {INR} [facility] - Chemistry and C hemistry - challengeon 05-30-2022 ALP [Catalytic activity/Vol] 142 U/L 45-117 [facility] ALT [Catalytic activity/Vol] 58 U/L 16-61 [facility] Amylase [Catalytic activity/Vol] 107 U/L 15-85 [facility] CO2 [Moles/Vol] 24.0 mmol/L 21.0-32.0 [facility] Globulin (S) [Mass/Vol] 3.4 g/dL 2.2-4.2 [facility] Magnesium [Mass/Vol] 2.1 mg/dL 1.6-2.6 [facility] Urea nitrogen/Creatinine [Mass ratio] 16.1 mg/mg 10-20 [facility] - Coagulationon 0 05-30-2022 PT Coag (PPP) [Time] 15.0 s 11.7-14.9 [facility] Laboratory - Hematology and Cell countson 05-30-2022 Erythrocyte distribution width (RBC) [Entitic vol] 43.0 fL 35.1-43.9 [facility] Erythrocyte distribution width (RBC) [Ratio] 13.0 % 11.6-14.6 [facility] Immature granulocytes/100 WBC (Bld) 0.200 % 0.0-0.9 [facility] Comment on above: IG% - Immature Granu locytes (promyelocytes, myelocytes and metamyelocytes) > 1% indicates that a LEFT SHIFT is Present. MCH (RBC) [Entitic mass] 30.4 pg 27.0-32.0 [facility] Nucleated RBC/100 WBC (Bld) [Ratio] 0 % 0-5 [facility] MCHC Auto (RBC) [Mass/Vol]on 05-30-2022 MCHC (RBC) [Mass/Vol] 33.3 g/dL 32-36 [facility] No Panel Informationon 05-30 Estimated GFR (MDRD) Amer 106 mL/min >60 [facility] Comment on above: GFR Calc Estimated GFR (MDRD) Non-Af Amer 88 mL/min >60 [facility] Comment on above: Non- GFR Calc Tacrolimus (Prograf) Level 6.5 ng/mL 2.0-20.0 [facility] Comment on above: Trough (immediately following transplant) 15.0 Trough (steady state, 2 weeks or more after transplant): 3.0 - 8.0 Performed by LC-MS/MS technology.Performed at: [address] [id number] Director: Arlyn Avila MD, Phone: [phone] Platelets bldon 05-30-2022 Platelets (Bld) [#/Vol] 175 10*3/uL 150-450 [facility] Serum or plasma albumin ginny urement (mass/volume)on 05-30-2022 Albumin [Mass/Vol] 3.6 g/dL 3.2-5.0 [facility] Serum or plasma calcium ginny urement (mass/volume)on 05-30-2022 Calcium [Mass/Vol] 8.9 mg/dL 8.5-10.1 [facility] Serum or plasma creatinine m easurement (mass/volume)on 05-30-2022 Creatinine [Mass/Vol] 0.99 mg/dL 0.70-1.30 [facility] Comment on above: The validity of the calculated GFR & GFRAA in patients over 70 years has not been determined. Clinical correlation is essential. Serum or plasma urea nitroge n measurement (mass/volume)on 05-30-2022 Urea nitrogen [Mass/Vol] 16 mg/dL 7-18 [facility] Thin prep Papanicolaou smear with manual screeningon 05-30-2022 Thin prep Papanicolaou smear with manual screening 41 U/L 15-37 [facility] Thin prep Papanicolaou smear with manual screening 8 5-15 [facility] Differential,Body Fluidson 0 - Other Cells 3 % Normal [facility] Comment on above: Result Comment: Reac tive mesothelial cells and acute inflammation present. No malignant cells identified Chris Junior DO. Revised: Comment was added, verified by TDF at 14:30 on 05/02/21 Performed By: #### D IFBF, AMYM3, FLDCC, ALBM3, LDMS3, GLMS3 #### [facility] [address] [place] [address] Comp Panel with Mg Reflexon 05-08-2021 Bilirubin [Mass/Vol] 27.5 mg/dL High 0.2-1.3 [facility] Comment on above: Performed By: #### C /BLD #### [facility] [address] [place] [address] ALT [Catalytic activity/Vol] 48 U/L Normal 0-49 [facility] Comment on above: Result Comment: The ALT test is performed by an updated assay method. Please note that the reference intervals have been changed and are now sex specific. Performed By: #### C /BLD #### [facility] [address] [place], [place] Calcium [Mass/Vol] 8.0 mg/dL Low 8.4-10.4 [facility] Comment on above: Performed By: #### C /BLD #### [facility] [address] [place], [place] Glucose [Mass/Vol] 97 mg/dL Normal 70-100 [facility] Comment on above: Performed By: #### C /BLD #### [facility] [address] [place], [place] ALP [Catalytic activity/Vol] 307 U/L High 38-126 [facility] Comment on above: Performed By: #### C /BLD #### [facility] [address] [place], [place] Anion gap [Moles/Vol] 9 mmol/L Normal 3-13 [facility] Comment on above: Performed By: #### C /BLD #### [facility] [address] [place], [place] AST [Catalytic activity/Vol] 117 U/L High 15-46 [facility] Comment on above: Performed By: #### C /BLD #### [facility] [address] [place], [place] CO2 [Moles/Vol] 23 mmol/L Normal 22-30 [facility] Comment on above: Performed By: #### C /BLD #### [facility] [address] [place], [place] Creatinine [Mass/Vol] 0.80 mg/dL Normal 0.52-1.25 [facility] Comment on above: Performed By: #### C /BLD #### [facility] [address] [place], [place] eGFR OTHER > 90.0 Normal >60 [facility] Comment on above: Result Comment: KDIG O [...] secretion. Performed By: #### C /BLD #### [place] [address] [place], [place] GFR/1.73 sq M.predicted among blacks MDRD (S/P/Bld) [Vol rate/Area] mL/min/{1.73_m2} Normal >60 [facility] Comment on above: Performed By: #### C /BLD #### [place] [address] [place], [place] Protein [Mass/Vol] 6.3 g/dL Normal 6.3-8.2 [facility] Comment on above: Performed By: #### C /BLD #### [place] [address] [place], [place] Urea nitrogen [Mass/Vol] 20 mg/dL High 7-17 [facility] Comment on above: Performed By: #### C /BLD #### [place] [address] [place], [place] Potassium [Moles/Vol] 3.6 mmol/L Normal 3.5-5.1 [facility] Comment on above: Performed By: #### C /BLD #### [place] [address] [place], [place] Sodium [Moles/Vol] 130 mmol/L Low 135-145 [facility] Comment on above: Performed By: #### C /BLD #### [place] [address] [place], [place] Albumin [Mass/Vol] 2.4 g/dL Low 3.5-5.0 [facility] Comment on above: Performed By: #### C /BLD #### [place] [address] [place], [place] Chloride [Moles/Vol] 97 mmol/L Low 98-107 [facility] Comment on above: Performed By: #### C /BLD #### [place] [address] [place], [place] Hemogram w/ Autodiffon 05-08 Erythrocyte distribution width (RBC) [Ratio] 16.0 % High 11.5-14.5 [facility] Comment on above: Performed By: #### C /BLD #### [place] [address] [place], [place] Hematocrit (Bld) [Volume fraction] 31.4 % Low 40.0-52.0 [facility] Comment on above: Performed By: #### C /BLD #### [place] [address] [place], [place] Hemoglobin (Bld) [Mass/Vol] 10.5 g/dL Low 13.0-18.0 [facility] Comment on above: Performed By: #### C /BLD #### [place] [address] [place], [place] MCH (RBC) [Entitic mass] 38.9 pg High 26.0-34.0 [facility] Comment on above: Performed By: #### C /BLD #### [place] [address] [place], [place] MCHC 33.5 % Normal 32.0-36.0 [facility] Comment on above: Performed By: #### C /BLD #### [place] [address] [place], [place] MCV (RBC) [Entitic vol] 116.3 fL High 80.0-98.0 [facility] Comment on above: Performed By: #### C /BLD #### [place] [address] [place], [place] Platelet mean volume (Bld) [Entitic vol] 8.1 fL Normal 7.4-10.4 [facility] Comment on above: Performed By: #### C /BLD #### [place] [address] [place], [place] Platelets (Bld) [#/Vol] 98 10*3/uL Low 140-440 [facility] Comment on above: Performed By: #### C /BLD #### [place] [address] [place], [place] RBC (Bld) [#/Vol] 2.70 10*6/uL Low 4.40-5.90 [facility] Comment on above: Performed By: #### C /BLD #### [place] [address] [place], [place] WBC (Bld) [#/Vol] 15.1 10*3/uL High 3.6-10.7 [facility] Comment on above: Performed By: #### C /BLD #### [place] [address] [place], [place] Manual Diffon 05-08-2021 Abs Baso Cnt 0.0 10*3/uL Normal 0.0-0.2 [facility] Comment on above: Performed By: #### C /BLD #### [place] [address] [place], [place] Abs Eosin Cnt 0.0 10*3/uL Normal 0.0-0.5 [facility] Comment on above: Performed By: #### C /BLD #### [place] [address] [place], [place] Abs Lymph Cnt 0.3 10*3/uL Low 1.1-4.5 [facility] Comment on above: Performed By: #### C /BLD #### [place] [address] [place], [place] Abs Monocyte Cnt 1.5 10*3/uL High 0.2-1.1 [facility] Comment on above: Performed By: #### C /BLD #### [place] [address] [place], [place] Abs Neutrophile Cnt 13.3 10*3/uL High 2.2-8.2 [facility] Comment on above: Performed By: #### C /BLD #### [facility] [address] [place], [place] Anisocytosis Moderate Normal [facility] Comment on above: Performed By: #### C /BLD #### [facility] [address] [place], [place] Bands 2 % Normal 0-3 [facility] Comment on above: Performed By: #### C /BLD #### [facility] [address] [place], [place] Basophils 0 % Normal 0-2 [facility] Comment on above: Performed By: #### C /BLD #### [facility] [address] [place], [place] Cells counted 100 Normal [facility] Comment on above: Performed By: #### C /BLD #### [facility] [address] [place] Eosinophils 0 % Low 1-6 [facility] Comment on above: Performed By: #### C /BLD #### [facility] [address] [place] Lymphocytes 2 % Low 20-40 [facility] Comment on above: Performed By: #### C /BLD #### [facility] [address] [place] Macrocytosis Moderate Normal [facility] Comment on above: Performed By: #### C /BLD #### [facility] [address] [place], [place] Monocytes 10 % Normal 2-10 [facility] Comment on above: Performed By: #### C /BLD #### [facility] [address] [place] Ovalocytes Slight Normal [facility] Comment on above: Performed By: #### C /BLD #### [facility] [address] [place] Poikilocytosis Slight Normal [facility] Comment on above: Performed By: #### C /BLD #### [facility] [address] [place], [place] Polychromasia Slight Normal [facility] Comment on above: Performed By: #### C /BLD #### [facility] [address] [place], [place] RBC Morphology See Prev Normal [facility] Comment on above: Performed By: #### C /BLD #### [facility] [address] [place], [place] Seg Neutrophils 86 % High 40-80 [facility] Comment on above: Performed By: #### C /BLD #### [place] [address] [address] [place], [place] Tear Drop Forms Slight Normal [facility] Comment on above: Performed By: #### C /BLD #### [place] [address] [address] [place] Prothrombin Timeon INR 1.7 High 0.9-1.1 [facility] Comment on above: Result Comment: Herber mmended [...] Infarction Performed By: #### C /BLD #### [place] [address] [address] [place], [place] PT Coag (PPP) [Time] 17.4 s High 9.0-12.0 [facility] Comment on above: Result Comment: . Performed By: #### C /BLD #### [place] [address] [address] [place] CULTURE BLOODon 05-07-2021 Microscopic examination of blood, culture CULTURE BLOOD --> Status: F No growth at 5 days. Normal [facility] Comment on above: Performed By: #### C /BLD #### [place] [address] [address] [place] CULTURE BLOOD (Two)on 2021 Microscopic examination of blood, culture CULTURE BLOOD (Two) --> Status: F No growth at 5 days. Normal [facility] Comment on above: Performed By: #### C /JARETT #### [facility] [address] [place], [place] Prothrombin Timeon INR 1.8 High 0.9-1.1 [facility] Comment on above: Result Comment: Herber mmended [...] IFBF, AMYM3, FLDCC, ALBM3, LDMS3, GLMS3 #### [facility] [address] [place], [place] PT Coag (PPP) [Time] 18.2 s High 9.0-12.0 [facility] Comment on above: Result Comment: . Performed By: #### D IFBF, AMYM3, FLDCC, ALBM3, LDMS3, GLMS3 #### [place] [address] [address] [place], [place] Calcium,Ionizedon 05-06-2021 Ionized Ca,Measured 3.90 mg/dL Low 4.30-5.20 [facility] Comment on above: Performed By: #### D IFBF, AMYM3, FLDCC, ALBM3, LDMS3, GLMS3 #### [place] [address] [address] [place], [place] pH, Ionized Calcium 7.53 High 7.31-7.46 [facility] Comment on above: Performed By: #### D IFBF, AMYM3, FLDCC, ALBM3, LDMS3, GLMS3 #### [place] [address] [address] [place], [place] Comp Metabolic Panelon 05-06 Calcium [Mass/Vol] 7.7 mg/dL Low 8.4-10.4 [facility] Comment on above: Performed By: #### D IFBF, AMYM3, FLDCC, ALBM3, LDMS3, GLMS3 #### [facility] [address] [place], [place] ALP [Catalytic activity/Vol] 345 U/L High 38-126 [facility] Comment on above: Performed By: #### D IFBF, AMYM3, FLDCC, ALBM3, LDMS3, GLMS3 #### [facility] [address] [place], [place] ALT [Catalytic activity/Vol] 42 U/L Normal 0-49 [facility] Comment on above: Result Comment: The ALT test is performed by an updated assay method. Please note that the reference intervals have been changed and are now sex specific. Performed By: #### D IFBF, AMYM3, FLDCC, ALBM3, LDMS3, GLMS3 #### [facility] [address] [place], [place] Anion gap [Moles/Vol] 6 mmol/L Normal 3-13 [facility] Comment on above: Performed By: #### D IFBF, AMYM3, FLDCC, ALBM3, LDMS3, GLMS3 #### [facility] [address] [place], [place] AST [Catalytic activity/Vol] 129 U/L High 15-46 [facility] Comment on above: Performed By: #### D IFBF, AMYM3, FLDCC, ALBM3, LDMS3, GLMS3 #### [facility] [address] [place], [place] Bilirubin [Mass/Vol] 26.2 mg/dL High 0.2-1.3 [facility] Comment on above: Performed By: #### D IFBF, AMYM3, FLDCC, ALBM3, LDMS3, GLMS3 #### [facility] [address] [place], [place] CO2 [Moles/Vol] 27 mmol/L Normal 22-30 [facility] Comment on above: Performed By: #### D IFBF, AMYM3, FLDCC, ALBM3, LDMS3, GLMS3 #### [facility] [address] [place] [address] Glucose [Mass/Vol] 94 mg/dL Normal 70-100 [facility] Comment on above: Performed By: #### D IFBF, AMYM3, FLDCC, ALBM3, LDMS3, GLMS3 #### [place] [address] [address] [place] Protein [Mass/Vol] 6.9 g/dL Normal 6.3-8.2 [facility] Comment on above: Performed By: #### D IFBF, AMYM3, FLDCC, ALBM3, LDMS3, GLMS3 #### [place] [address] [place] Urea nitrogen [Mass/Vol] 13 mg/dL Normal 7-17 [facility] Comment on above: Performed By: #### D IFBF, AMYM3, FLDCC, ALBM3, LDMS3, GLMS3 #### [place] [address] [address] [place] Creatinine [Mass/Vol] 0.77 mg/dL Normal 0.52-1.25 [facility] Comment on above: Performed By: #### D IFBF, AMYM3, FLDCC, ALBM3, LDMS3, GLMS3 #### [place] [address] [place] eGFR OTHER > 90.0 Normal >60 [facility] Comment on above: Result Comment: KDIG O [...] IFBF, AMYM3, FLDCC, ALBM3, LDMS3, GLMS3 #### [facility] [address] [place], [place] GFR/1.73 sq M.predicted among blacks MDRD (S/P/Bld) [Vol rate/Area] mL/min/{1.73_m2} Normal >60 [facility] Comment on above: Performed By: #### D IFBF, AMYM3, FLDCC, ALBM3, LDMS3, GLMS3 #### [place] [address] [place], [place] Albumin [Mass/Vol] 2.5 g/dL Low 3.5-5.0 [facility] Comment on above: Performed By: #### D IFBF, AMYM3, FLDCC, ALBM3, LDMS3, GLMS3 #### [place] [address] [address] [place] Chloride [Moles/Vol] 99 mmol/L Normal 98-107 [facility] Comment on above: Performed By: #### D IFBF, AMYM3, FLDCC, ALBM3, LDMS3, GLMS3 #### [place] [address] [place], [place] Potassium [Moles/Vol] 3.5 mmol/L Normal 3.5-5.1 [facility] Comment on above: Performed By: #### D IFBF, AMYM3, FLDCC, ALBM3, LDMS3, GLMS3 #### [place] [address] [place] Sodium [Moles/Vol] 132 mmol/L Low 135-145 [facility] Comment on above: Performed By: #### D IFBF, AMYM3, FLDCC, ALBM3, LDMS3, GLMS3 #### [place] [address] [place], [place] Folateon 05-06-2021 Folate 3.7 ng/mL Normal [facility] Comment on above: Result Comment: >2.8 Performed By: #### D IFBF, AMYM3, FLDCC, ALBM3, LDMS3, GLMS3 #### [place] [address] [place], [place] Hemogram w/ Autodiffon 05-06 Erythrocyte distribution width (RBC) [Ratio] 15.2 % High 11.5-14.5 [facility] Comment on above: Performed By: #### D IFBF, AMYM3, FLDCC, ALBM3, LDMS3, GLMS3 #### [place] [address] [place], [place] Hematocrit (Bld) [Volume fraction] 30.3 % Low 40.0-52.0 [facility] Comment on above: Performed By: #### D IFBF, AMYM3, FLDCC, ALBM3, LDMS3, GLMS3 #### [place] [address] [place], [place] Hemoglobin (Bld) [Mass/Vol] 10.3 g/dL Low 13.0-18.0 [facility] Comment on above: Performed By: #### D IFBF, AMYM3, FLDCC, ALBM3, LDMS3, GLMS3 #### [place] [address] [place], [place] MCH (RBC) [Entitic mass] 39.3 pg High 26.0-34.0 [facility] Comment on above: Performed By: #### D IFBF, AMYM3, FLDCC, ALBM3, LDMS3, GLMS3 #### [place] [address] [place] MCHC 34.1 % Normal 32.0-36.0 [facility] Comment on above: Performed By: #### D IFBF, AMYM3, FLDCC, ALBM3, LDMS3, GLMS3 #### [address] MCV (RBC) [Entitic vol] 115.1 fL High 80.0-98.0 [facility] Comment on above: Performed By: #### D IFBF, AMYM3, FLDCC, ALBM3, LDMS3, GLMS3 #### [place] [address] [address] [place] Platelet mean volume (Bld) [Entitic vol] 8.8 fL Normal 7.4-10.4 [facility] Comment on above: Performed By: #### D IFBF, AMYM3, FLDCC, ALBM3, LDMS3, GLMS3 #### [place] [address] [place] Platelets (Bld) [#/Vol] 79 10*3/uL Low 140-440 [facility] Comment on above: Performed By: #### D IFBF, AMYM3, FLDCC, ALBM3, LDMS3, GLMS3 #### [place] [address] [address] [place], [place] RBC (Bld) [#/Vol] 2.63 10*6/uL Low 4.40-5.90 [facility] Comment on above: Performed By: #### D IFBF, AMYM3, FLDCC, ALBM3, LDMS3, GLMS3 #### [place] [address] [place] WBC (Bld) [#/Vol] 9.9 10*3/uL Normal 3.6-10.7 [facility] Comment on above: Performed By: #### D IFBF, AMYM3, FLDCC, ALBM3, LDMS3, GLMS3 #### [place] [address] [address] [place], [place] Manual Diffon 05-06-2021 Abs Lymph Cnt 0.2 10*3/uL Low 1.1-4.5 [facility] Comment on above: Performed By: #### C /BLD #### [address] [place], [place] Abs Monocyte Cnt 0.9 10*3/uL Normal 0.2-1.1 [facility] Comment on above: Performed By: #### C /BLD #### [place] [address] [address] [place] Abs Neutrophile Cnt 8.8 10*3/uL High 2.2-8.2 [facility] Comment on above: Performed By: #### C /BLD #### [place] [address] [address] [place] Anisocytosis Slight Normal [facility] Comment on above: Performed By: #### C /BLD #### [place] [address] [address] [place] Bands 5 % High 0-3 [facility] Comment on above: Performed By: #### C /BLD #### [place] [address] [address] [place] Large Platelets Slight Normal [facility] Comment on above: Performed By: #### C /BLD #### [place] [address] [address] [place] Lymphocytes 2 % Low 20-40 [facility] Comment on above: Performed By: #### C /BLD #### [place] [address] [address] [place] Macrocytosis Slight Normal [facility] Comment on above: Performed By: #### C /BLD #### [place] [address] [address] [place] Monocytes 9 % Normal 2-10 [facility] Comment on above: Performed By: #### C /BLD #### [place] [address] [place] Polychromasia Slight Normal [facility] Comment on above: Performed By: #### C /BLD #### [place] [address] [address] [place] RBC Morphology ABNORMAL Normal [facility] Comment on above: Performed By: #### C /BLD #### [place] [address] [address] [place] Seg Neutrophils 84 % High 40-80 [facility] Comment on above: Performed By: #### C /BLD #### [place] [address] [address] [place] Abs Baso Cnt 0.0 10*3/uL Normal 0.0-0.2 [facility] Comment on above: Performed By: #### C /BLD #### [place] [address] [address] [place] Abs Eosin Cnt 0.0 10*3/uL Normal 0.0-0.5 [facility] Comment on above: Performed By: #### C /BLD #### [place] [address] [address] [place] Basophils 0 % Normal 0-2 [facility] Comment on above: Performed By: #### C /BLD #### [address] [place] Cells counted 100 Normal [facility] Comment on above: Performed By: #### C /BLD #### [address] Eosinophils 0 % Low 1-6 [facility] Comment on above: Performed By: #### C /BLD #### [address] Prothrombin Timeon 2 INR 1.6 High 0.9-1.1 [facility] Comment on above: Result Comment: Herber mmended [...] IFBF, AMYM3, FLDCC, ALBM3, LDMS3, GLMS3 #### [address] PT Coag (PPP) [Time] 16.8 s High 9.0-12.0 [facility] Comment on above: Result Comment: . Performed By: #### D IFBF, AMYM3, FLDCC, ALBM3, LDMS3, GLMS3 #### [address] [place] [address] [place] [address] Thyroid Stim. Hormoneon 0 Thyroid Stim. Hormone 0.803 u[IU]/mL Normal 0.46 5-4.68 0 [facility] Comment on above: Performed By: #### D IFBF, AMYM3, FLDCC, ALBM3, LDMS3, GLMS3 #### [facility] [address] [place] [address] US Paracentesison 05-06-2021 US Paracentesis Patient Name: DANNY MATSON Ultrasound ACCESSION EXAM DATE/TIME PROCEDURE ORDERING PROVIDER [id number] 05/06/2021 12:12 EST US Paracentesis Initial [id number] ELLA PHILLIPS CPT code 49184 Reason For Exam (US Paracentesis Initial) abdominal ascites Report Reasons for examination: Abdominal distention and discomfort. Ascites. Ultrasound was performed of the abdomen, localizing the ascitic fluid. After obtaining informed consent, sterile preparation, draping, and local anesthetic administration, paracentesis was performed under direct ultrasonographic guidance with a 5 [place] Yueh needle/catheter in the 6200 mL abdomen. [...] Transcribed Date and Time: 05/06/2021 12:29 Normal [facility] Vitamin B12on 05-06-2021 Cobalamin (Vitamin B12) [Mass/Vol] 988 pg/mL High 239-931 [facility] Comment on above: Performed By: #### D IFBF, AMYM3, FLDCC, ALBM3, LDMS3, GLMS3 #### [facility] [address] [place], [place] CULTURE AND STAIN - FLUIDon 05-05-2021 CULTURE AND STAIN - FLUID CULTURE & STAIN - FLUID --> Status: F No growth at 3 days. Normal [facility] Comment on above: Performed By: #### D IFBF, AMYM3, FLDCC, ALBM3, LDMS3, GLMS3 #### [facility] [address] [place], [place] Comp Panel with Mg Reflexon 05-05-2021 Bilirubin [Mass/Vol] 30.7 mg/dL High 0.2-1.3 [facility] Comment on above: Performed By: #### D IFBF, AMYM3, FLDCC, ALBM3, LDMS3, GLMS3 #### [facility] [address] [place] Calcium [Mass/Vol] 7.7 mg/dL Low 8.4-10.4 [facility] Comment on above: Performed By: #### D IFBF, AMYM3, FLDCC, ALBM3, LDMS3, GLMS3 #### [facility] [address] [place] Glucose [Mass/Vol] 118 mg/dL High 70-100 [facility] Comment on above: Performed By: #### D IFBF, AMYM3, FLDCC, ALBM3, LDMS3, GLMS3 #### [facility] [address] [place] ALP [Catalytic activity/Vol] 336 U/L High 38-126 [facility] Comment on above: Performed By: #### D IFBF, AMYM3, FLDCC, ALBM3, LDMS3, GLMS3 #### [facility] [address] [place], [place] ALT [Catalytic activity/Vol] 39 U/L Normal 0-49 [facility] Comment on above: Result Comment: The ALT test is performed by an updated assay method. Please note that the reference intervals have been changed and are now sex specific. Performed By: #### D IFBF, AMYM3, FLDCC, ALBM3, LDMS3, GLMS3 #### [facility] [address] [place] Anion gap [Moles/Vol] 7 mmol/L Normal 3-13 [facility] Comment on above: Performed By: #### D IFBF, AMYM3, FLDCC, ALBM3, LDMS3, GLMS3 #### [facility] [address] [place] AST [Catalytic activity/Vol] 126 U/L High 15-46 [facility] Comment on above: Performed By: #### D IFBF, AMYM3, FLDCC, ALBM3, LDMS3, GLMS3 #### [facility] [address] [place] CO2 [Moles/Vol] 28 mmol/L Normal 22-30 [facility] Comment on above: Performed By: #### D IFBF, AMYM3, FLDCC, ALBM3, LDMS3, GLMS3 #### [place] [address] [place] Creatinine [Mass/Vol] 0.74 mg/dL Normal 0.52-1.25 [facility] Comment on above: Performed By: #### D IFBF, AMYM3, FLDCC, ALBM3, LDMS3, GLMS3 #### [facility] [address] [place] eGFR OTHER > 90.0 Normal >60 [facility] Comment on above: Result Comment: KDIG O [...] IFBF, AMYM3, FLDCC, ALBM3, LDMS3, GLMS3 #### [address] [place] [address] [place] [address] GFR/1.73 sq M.predicted among blacks MDRD (S/P/Bld) [Vol rate/Area] mL/min/{1.73_m2} Normal >60 [facility] Comment on above: Performed By: #### D IFBF, AMYM3, FLDCC, ALBM3, LDMS3, GLMS3 #### [place] [address] [place], [place] Protein [Mass/Vol] 7.1 g/dL Normal 6.3-8.2 [facility] Comment on above: Performed By: #### D IFBF, AMYM3, FLDCC, ALBM3, LDMS3, GLMS3 #### [place] [address] [place] Urea nitrogen [Mass/Vol] 13 mg/dL Normal 7-17 [facility] Comment on above: Performed By: #### D IFBF, AMYM3, FLDCC, ALBM3, LDMS3, GLMS3 #### [address] [place] [address] [place] [address] Potassium [Moles/Vol] 3.3 mmol/L Low 3.5-5.1 [facility] Comment on above: Performed By: #### D IFBF, AMYM3, FLDCC, ALBM3, LDMS3, GLMS3 #### [address] [address] [place] [address] Albumin [Mass/Vol] 2.6 g/dL Low 3.5-5.0 [facility] Comment on above: Performed By: #### D IFBF, AMYM3, FLDCC, ALBM3, LDMS3, GLMS3 #### [address] [address] [place] [address] Chloride [Moles/Vol] 96 mmol/L Low 98-107 [facility] Comment on above: Performed By: #### D IFBF, AMYM3, FLDCC, ALBM3, LDMS3, GLMS3 #### [place] [address] [place] Sodium [Moles/Vol] 131 mmol/L Low 135-145 [facility] Comment on above: Performed By: #### D IFBF, AMYM3, FLDCC, ALBM3, LDMS3, GLMS3 #### [place] [address] [place], [place] Hemogram w/ Autodiffon 05-05 Abs Baso Cnt 0.0 10*3/uL Normal 0.0-0.2 [facility] Comment on above: Performed By: #### D IFBF, AMYM3, FLDCC, ALBM3, LDMS3, GLMS3 #### [address] Abs Neutrophile Cnt 8.5 10*3/uL High 1.8-7.0 [facility] Comment on above: Performed By: #### D IFBF, AMYM3, FLDCC, ALBM3, LDMS3, GLMS3 #### [place] [address] [place] Basophils/100 WBC (Bld) 0.3 % Normal 0.0-2.0 [facility] Comment on above: Performed By: #### D IFBF, AMYM3, FLDCC, ALBM3, LDMS3, GLMS3 #### [place] [address] [place] Eosinophils (Bld) [#/Vol] 0.0 10*3/uL Normal 0.0-0.5 [facility] Comment on above: Performed By: #### D IFBF, AMYM3, FLDCC, ALBM3, LDMS3, GLMS3 #### [address] Eosinophils/100 WBC (Bld) 0.1 % Low 1.0-6.0 [facility] Comment on above: Performed By: #### D IFBF, AMYM3, FLDCC, ALBM3, LDMS3, GLMS3 #### [place] [address] [place] Erythrocyte distribution width (RBC) [Ratio] 15.0 % High 11.5-14.5 [facility] Comment on above: Performed By: #### D IFBF, AMYM3, FLDCC, ALBM3, LDMS3, GLMS3 #### [place] [address] [place] Granulocytes/100 WBC (Bld) 86.1 % High 40.0-80.0 [facility] Comment on above: Performed By: #### D IFBF, AMYM3, FLDCC, ALBM3, LDMS3, GLMS3 #### [address] [address] [place] Hematocrit (Bld) [Volume fraction] 29.6 % Low 40.0-52.0 [facility] Comment on above: Performed By: #### D IFBF, AMYM3, FLDCC, ALBM3, LDMS3, GLMS3 #### [place] [address] [place] Hemoglobin (Bld) [Mass/Vol] 10.4 g/dL Low 13.0-18.0 [facility] Comment on above: Performed By: #### D IFBF, AMYM3, FLDCC, ALBM3, LDMS3, GLMS3 #### [address] [address] [place] Lymphocytes (Bld) [#/Vol] 0.3 10*3/uL Low 1.0-4.3 [facility] Comment on above: Performed By: #### D IFBF, AMYM3, FLDCC, ALBM3, LDMS3, GLMS3 #### [address] Lymphocytes/100 WBC (Bld) 3.2 % Low 20.0-40.0 [facility] Comment on above: Performed By: #### D IFBF, AMYM3, FLDCC, ALBM3, LDMS3, GLMS3 #### [address] [place] [address] [place] MCH (RBC) [Entitic mass] 40.2 pg High 26.0-34.0 [facility] Comment on above: Performed By: #### D IFBF, AMYM3, FLDCC, ALBM3, LDMS3, GLMS3 #### [place] [address] [place] MCHC 35.2 % Normal 32.0-36.0 [facility] Comment on above: Performed By: #### D IFBF, AMYM3, FLDCC, ALBM3, LDMS3, GLMS3 #### [address] [place] [address] [place] MCV (RBC) [Entitic vol] 114.2 fL High 80.0-98.0 [facility] Comment on above: Performed By: #### D IFBF, AMYM3, FLDCC, ALBM3, LDMS3, GLMS3 #### [address] Monocytes (Bld) [#/Vol] 1.0 10*3/uL High 0.0-0.8 [facility] Comment on above: Performed By: #### D IFBF, AMYM3, FLDCC, ALBM3, LDMS3, GLMS3 #### [address] Monocytes/100 WBC (Bld) 10.3 % High 2.0-10.0 [facility] Comment on above: Performed By: #### D IFBF, AMYM3, FLDCC, ALBM3, LDMS3, GLMS3 #### [place] [address] [place], [place] Platelet mean volume (Bld) [Entitic vol] 8.7 fL Normal 7.4-10.4 [facility] Comment on above: Performed By: #### D IFBF, AMYM3, FLDCC, ALBM3, LDMS3, GLMS3 #### [address] Platelets (Bld) [#/Vol] 70 10*3/uL Low 140-440 [facility] Comment on above: Performed By: #### D IFBF, AMYM3, FLDCC, ALBM3, LDMS3, GLMS3 #### [facility] [address] [place], [place] RBC (Bld) [#/Vol] 2.59 10*6/uL Low 4.40-5.90 [facility] Comment on above: Performed By: #### D IFBF, AMYM3, FLDCC, ALBM3, LDMS3, GLMS3 #### [facility] [address] [place] WBC (Bld) [#/Vol] 9.9 10*3/uL Normal 3.6-10.7 [facility] Comment on above: Performed By: #### D IFBF, AMYM3, FLDCC, ALBM3, LDMS3, GLMS3 #### [place] [address] [place] Magnesiumon 05-05-2021 Magnesium [Mass/Vol] 2.1 mg/dL Normal 1.6-2.3 [facility] Comment on above: Performed By: #### D IFBF, AMYM3, FLDCC, ALBM3, LDMS3, GLMS3 #### [place] [address] [place] Prothrombin Timeon 2 INR 1.7 High 0.9-1.1 [facility] Comment on above: Result Comment: Herber mmended [...] IFBF, AMYM3, FLDCC, ALBM3, LDMS3, GLMS3 #### [place] [address] [place] PT Coag (PPP) [Time] 17.7 s High 9.0-12.0 [facility] Comment on above: Result Comment: . Performed By: #### D IFBF, AMYM3, FLDCC, ALBM3, LDMS3, GLMS3 #### [facility] [address] [place] CULTURE AND STAIN - FLUIDon 05-04-2021 CULTURE AND STAIN - FLUID CULTURE & STAIN - FLUID --> Status: F No growth at 3 days. Normal [facility] Comment on above: Performed By: #### C XFLD, S/GRM #### [facility] [address] [place], [place] Comp Panel with Mg Reflexon 05-04-2021 Bilirubin [Mass/Vol] 30.6 mg/dL High 0.2-1.3 [facility] Comment on above: Performed By: #### D IFBF, AMYM3, FLDCC, ALBM3, LDMS3, GLMS3 #### [place] [address] [place], [place] ALP [Catalytic activity/Vol] 331 U/L High 38-126 [facility] Comment on above: Performed By: #### D IFBF, AMYM3, FLDCC, ALBM3, LDMS3, GLMS3 #### [facility] [address] [place], [place] ALT [Catalytic activity/Vol] 39 U/L Normal 0-49 [facility] Comment on above: Result Comment: The ALT test is performed by an updated assay method. Please note that the reference intervals have been changed and are now sex specific. Performed By: #### D IFBF, AMYM3, FLDCC, ALBM3, LDMS3, GLMS3 #### [facility] [address] [place], [place] AST [Catalytic activity/Vol] 136 U/L High 15-46 [facility] Comment on above: Performed By: #### D IFBF, AMYM3, FLDCC, ALBM3, LDMS3, GLMS3 #### [facility] [address] [place], [place] Calcium [Mass/Vol] 7.9 mg/dL Low 8.4-10.4 [facility] Comment on above: Performed By: #### D IFBF, AMYM3, FLDCC, ALBM3, LDMS3, GLMS3 #### [facility] [address] [place], [place] Glucose [Mass/Vol] 156 mg/dL High 70-100 [facility] Comment on above: Performed By: #### D IFBF, AMYM3, FLDCC, ALBM3, LDMS3, GLMS3 #### [place] [address] [place], [place] Protein [Mass/Vol] 7.1 g/dL Normal 6.3-8.2 [facility] Comment on above: Performed By: #### D IFBF, AMYM3, FLDCC, ALBM3, LDMS3, GLMS3 #### [place] [address] [place], [place] Urea nitrogen [Mass/Vol] 10 mg/dL Normal 7-17 [facility] Comment on above: Performed By: #### D IFBF, AMYM3, FLDCC, ALBM3, LDMS3, GLMS3 #### [place] [address] [place], [place] Anion gap [Moles/Vol] 9 mmol/L Normal 3-13 [facility] Comment on above: Performed By: #### D IFBF, AMYM3, FLDCC, ALBM3, LDMS3, GLMS3 #### [place] [address] [place], [place] CO2 [Moles/Vol] 29 mmol/L Normal 22-30 [facility] Comment on above: Performed By: #### D IFBF, AMYM3, FLDCC, ALBM3, LDMS3, GLMS3 #### [place] [address] [place], [place] Creatinine [Mass/Vol] 0.71 mg/dL Normal 0.52-1.25 [facility] Comment on above: Performed By: #### D IFBF, AMYM3, FLDCC, ALBM3, LDMS3, GLMS3 #### [place] [address] [place], [place] eGFR OTHER > 90.0 Normal >60 [facility] Comment on above: Result Comment: KDIG O [...] IFBF, AMYM3, FLDCC, ALBM3, LDMS3, GLMS3 #### [address] GFR/1.73 sq M.predicted among blacks MDRD (S/P/Bld) [Vol rate/Area] mL/min/{1.73_m2} Normal >60 [facility] Comment on above: Performed By: #### D IFBF, AMYM3, FLDCC, ALBM3, LDMS3, GLMS3 #### [address] Albumin [Mass/Vol] 2.6 g/dL Low 3.5-5.0 [facility] Comment on above: Performed By: #### D IFBF, AMYM3, FLDCC, ALBM3, LDMS3, GLMS3 #### [address] Chloride [Moles/Vol] 95 mmol/L Low 98-107 [facility] Comment on above: Performed By: #### D IFBF, AMYM3, FLDCC, ALBM3, LDMS3, GLMS3 #### [address] Potassium [Moles/Vol] 3.2 mmol/L Low 3.5-5.1 [facility] Comment on above: Performed By: #### D IFBF, AMYM3, FLDCC, ALBM3, LDMS3, GLMS3 #### [place] [address] [place], [place] Sodium [Moles/Vol] 133 mmol/L Low 135-145 [facility] Comment on above: Performed By: #### D IFBF, AMYM3, FLDCC, ALBM3, LDMS3, GLMS3 #### [address] [address] [place], [place] Hemogram w/ Autodiffon 05-04 Erythrocyte distribution width (RBC) [Ratio] 14.7 % High 11.5-14.5 [facility] Comment on above: Performed By: #### D IFBF, AMYM3, FLDCC, ALBM3, LDMS3, GLMS3 #### [address] [address] [place], [place] Hematocrit (Bld) [Volume fraction] 29.7 % Low 40.0-52.0 [facility] Comment on above: Performed By: #### D IFBF, AMYM3, FLDCC, ALBM3, LDMS3, GLMS3 #### [address] [place] [address] [place], [place] Hemoglobin (Bld) [Mass/Vol] 10.4 g/dL Low 13.0-18.0 [facility] Comment on above: Performed By: #### D IFBF, AMYM3, FLDCC, ALBM3, LDMS3, GLMS3 #### [address] [address] [place], [place] MCH (RBC) [Entitic mass] 40.3 pg High 26.0-34.0 [facility] Comment on above: Performed By: #### D IFBF, AMYM3, FLDCC, ALBM3, LDMS3, GLMS3 #### [address] [address] [place], [place] MCHC 35.0 % Normal 32.0-36.0 [facility] Comment on above: Performed By: #### D IFBF, AMYM3, FLDCC, ALBM3, LDMS3, GLMS3 #### [place] [address] [place], [place] MCV (RBC) [Entitic vol] 115.2 fL High 80.0-98.0 [facility] Comment on above: Performed By: #### D IFBF, AMYM3, FLDCC, ALBM3, LDMS3, GLMS3 #### [place] [address] [place], [place] Platelet mean volume (Bld) [Entitic vol] 9.7 fL Normal 7.4-10.4 [facility] Comment on above: Performed By: #### D IFBF, AMYM3, FLDCC, ALBM3, LDMS3, GLMS3 #### [address] Platelets (Bld) [#/Vol] 63 10*3/uL Low 140-440 [facility] Comment on above: Performed By: #### D IFBF, AMYM3, FLDCC, ALBM3, LDMS3, GLMS3 #### [place] [address] [place], [place] RBC (Bld) [#/Vol] 2.58 10*6/uL Low 4.40-5.90 [facility] Comment on above: Performed By: #### D IFBF, AMYM3, FLDCC, ALBM3, LDMS3, GLMS3 #### [address] [address] [place], [place] WBC (Bld) [#/Vol] 8.1 10*3/uL Normal 3.6-10.7 [facility] Comment on above: Performed By: #### D IFBF, AMYM3, FLDCC, ALBM3, LDMS3, GLMS3 #### [address] Magnesiumon 05-04-2021 Magnesium [Mass/Vol] 2.1 mg/dL Normal 1.6-2.3 [facility] Comment on above: Performed By: #### D IFBF, AMYM3, FLDCC, ALBM3, LDMS3, GLMS3 #### [address] Manual Diffon 05-04-2021 Abs Lymph Cnt 0.1 10*3/uL Low 1.1-4.5 [facility] Comment on above: Performed By: #### D IFBF, AMYM3, FLDCC, ALBM3, LDMS3, GLMS3 #### [facility] [address] [place], [place] Abs Monocyte Cnt 0.3 10*3/uL Normal 0.2-1.1 [facility] Comment on above: Performed By: #### D IFBF, AMYM3, FLDCC, ALBM3, LDMS3, GLMS3 #### [place] [address] [place], [place] Abs Neutrophile Cnt 7.7 10*3/uL Normal 2.2-8.2 [facility] Comment on above: Performed By: #### D IFBF, AMYM3, FLDCC, ALBM3, LDMS3, GLMS3 #### [place] [address] [place], [place] Bands 2 % Normal 0-3 [facility] Comment on above: Performed By: #### D IFBF, AMYM3, FLDCC, ALBM3, LDMS3, GLMS3 #### [place] [address] [place], [place] Lymphocytes 1 % Low 20-40 [facility] Comment on above: Performed By: #### D IFBF, AMYM3, FLDCC, ALBM3, LDMS3, GLMS3 #### [place] [address] [place], [place] Monocytes 4 % Normal 2-10 [facility] Comment on above: Performed By: #### D IFBF, AMYM3, FLDCC, ALBM3, LDMS3, GLMS3 #### [address] RBC Morphology See Prev Normal [facility] Comment on above: Performed By: #### D IFBF, AMYM3, FLDCC, ALBM3, LDMS3, GLMS3 #### [address] [place] [address] [place], [place] Seg Neutrophils 93 % High 40-80 [facility] Comment on above: Performed By: #### D IFBF, AMYM3, FLDCC, ALBM3, LDMS3, GLMS3 #### [place] [address] [place], [place] Abs Baso Cnt 0.0 10*3/uL Normal 0.0-0.2 [facility] Comment on above: Performed By: #### D IFBF, AMYM3, FLDCC, ALBM3, LDMS3, GLMS3 #### [facility] [address] [place] [place], [place] Abs Eosin Cnt 0.0 10*3/uL Normal 0.0-0.5 [facility] Comment on above: Performed By: #### D IFBF, AMYM3, FLDCC, ALBM3, LDMS3, GLMS3 #### [address] [address] [place], [place] Basophils 0 % Normal 0-2 [facility] Comment on above: Performed By: #### D IFBF, AMYM3, FLDCC, ALBM3, LDMS3, GLMS3 #### [address] [address] [place], [place] Cells counted 100 Normal [facility] Comment on above: Performed By: #### D IFBF, AMYM3, FLDCC, ALBM3, LDMS3, GLMS3 #### [address] [place] [address] [place], [place] Eosinophils 0 % Low 1-6 [facility] Comment on above: Performed By: #### D IFBF, AMYM3, FLDCC, ALBM3, LDMS3, GLMS3 #### [address] Prothrombin Timeon 2 INR 1.8 High 0.9-1.1 [facility] Comment on above: Result Comment: Herber mmended [...] IFBF, AMYM3, FLDCC, ALBM3, LDMS3, GLMS3 #### [place] [address] [place], [place] PT Coag (PPP) [Time] 18.3 s High 9.0-12.0 [facility] Comment on above: Result Comment: . Performed By: #### D IFBF, AMYM3, FLDCC, ALBM3, LDMS3, GLMS3 #### [place] [address] [place], [place] Ammoniaon 05-03-2021 Ammonia (P) [Moles/Vol] 55 umol/L High 9-30 [facility] Comment on above: Performed By: #### D IFBF, AMYM3, FLDCC, ALBM3, LDMS3, GLMS3 #### [place] [address] [place], [place] Comp Panel with Mg Reflexon 05-03-2021 Bilirubin [Mass/Vol] 33.4 mg/dL High 0.2-1.3 [facility] Comment on above: Performed By: #### D IFBF, AMYM3, FLDCC, ALBM3, LDMS3, GLMS3 #### [place] [address] [place], [place] ALT [Catalytic activity/Vol] 41 U/L Normal 0-49 [facility] Comment on above: Result Comment: The ALT test is performed by an updated assay method. Please note that the reference intervals have been changed and are now sex specific. Performed By: #### D IFBF, AMYM3, FLDCC, ALBM3, LDMS3, GLMS3 #### [place] [address] [place], [place] Calcium [Mass/Vol] 7.6 mg/dL Low 8.4-10.4 [facility] Comment on above: Performed By: #### D IFBF, AMYM3, FLDCC, ALBM3, LDMS3, GLMS3 #### [address] [place], [place] Glucose [Mass/Vol] 87 mg/dL Normal 70-100 [facility] Comment on above: Performed By: #### D IFBF, AMYM3, FLDCC, ALBM3, LDMS3, GLMS3 #### [facility] [address] [place] [place], [place] ALP [Catalytic activity/Vol] 307 U/L High 38-126 [facility] Comment on above: Performed By: #### D IFBF, AMYM3, FLDCC, ALBM3, LDMS3, GLMS3 #### [place] [address] [place], [place] Anion gap [Moles/Vol] 8 mmol/L Normal 3-13 [facility] Comment on above: Performed By: #### D IFBF, AMYM3, FLDCC, ALBM3, LDMS3, GLMS3 #### [place] [address] [place], [place] AST [Catalytic activity/Vol] 169 U/L High 15-46 [facility] Comment on above: Performed By: #### D IFBF, AMYM3, FLDCC, ALBM3, LDMS3, GLMS3 #### [place] [address] [place], [place] CO2 [Moles/Vol] 25 mmol/L Normal 22-30 [facility] Comment on above: Performed By: #### D IFBF, AMYM3, FLDCC, ALBM3, LDMS3, GLMS3 #### [place] [address] [place], [place] Creatinine [Mass/Vol] 0.69 mg/dL Normal 0.52-1.25 [facility] Comment on above: Performed By: #### D IFBF, AMYM3, FLDCC, ALBM3, LDMS3, GLMS3 #### [place] [address] [place], [place] eGFR OTHER > 90.0 Normal >60 [facility] Comment on above: Result Comment: KDIG O [...] IFBF, AMYM3, FLDCC, ALBM3, LDMS3, GLMS3 #### [address] GFR/1.73 sq M.predicted among blacks MDRD (S/P/Bld) [Vol rate/Area] mL/min/{1.73_m2} Normal >60 [facility] Comment on above: Performed By: #### D IFBF, AMYM3, FLDCC, ALBM3, LDMS3, GLMS3 #### [address] [address] [place], [place] Protein [Mass/Vol] 7.0 g/dL Normal 6.3-8.2 [facility] Comment on above: Performed By: #### D IFBF, AMYM3, FLDCC, ALBM3, LDMS3, GLMS3 #### [address] Urea nitrogen [Mass/Vol] 7 mg/dL Normal 7-17 [facility] Comment on above: Performed By: #### D IFBF, AMYM3, FLDCC, ALBM3, LDMS3, GLMS3 #### [address] Potassium [Moles/Vol] 3.1 mmol/L Low 3.5-5.1 [facility] Comment on above: Performed By: #### D IFBF, AMYM3, FLDCC, ALBM3, LDMS3, GLMS3 #### [facility] [address] [place] [place], [place] Sodium [Moles/Vol] 127 mmol/L Low 135-145 [facility] Comment on above: Performed By: #### D IFBF, AMYM3, FLDCC, ALBM3, LDMS3, GLMS3 #### [facility] [address] [place] [place], [place] Albumin [Mass/Vol] 2.5 g/dL Low 3.5-5.0 [facility] Comment on above: Performed By: #### D IFBF, AMYM3, FLDCC, ALBM3, LDMS3, GLMS3 #### [place] [address] [place] Chloride [Moles/Vol] 94 mmol/L Low 98-107 [facility] Comment on above: Performed By: #### D IFBF, AMYM3, FLDCC, ALBM3, LDMS3, GLMS3 #### [place] [address] [place], [place] Hemogramon 05-03-2021 Erythrocyte distribution width (RBC) [Ratio] 14.4 % Normal 11.5-14.5 [facility] Comment on above: Performed By: #### D IFBF, AMYM3, FLDCC, ALBM3, LDMS3, GLMS3 #### [place] [address] [place], [place] Hematocrit (Bld) [Volume fraction] 28.0 % Low 40.0-52.0 [facility] Comment on above: Performed By: #### D IFBF, AMYM3, FLDCC, ALBM3, LDMS3, GLMS3 #### [place] [address] [place], [place] Hemoglobin (Bld) [Mass/Vol] 9.7 g/dL Low 13.0-18.0 [facility] Comment on above: Performed By: #### D IFBF, AMYM3, FLDCC, ALBM3, LDMS3, GLMS3 #### [address] [address] [place], [place] MCH (RBC) [Entitic mass] 39.4 pg High 26.0-34.0 [facility] Comment on above: Performed By: #### D IFBF, AMYM3, FLDCC, ALBM3, LDMS3, GLMS3 #### [place] [address] [place] MCHC 34.6 % Normal 32.0-36.0 [facility] Comment on above: Performed By: #### D IFBF, AMYM3, FLDCC, ALBM3, LDMS3, GLMS3 #### [address] [address] [place], [place] MCV (RBC) [Entitic vol] 114.1 fL High 80.0-98.0 [facility] Comment on above: Performed By: #### D IFBF, AMYM3, FLDCC, ALBM3, LDMS3, GLMS3 #### [address] [address] [place], [place] Platelet mean volume (Bld) [Entitic vol] 8.3 fL Normal 7.4-10.4 [facility] Comment on above: Performed By: #### D IFBF, AMYM3, FLDCC, ALBM3, LDMS3, GLMS3 #### [place] [address] [place], [place] Platelets (Bld) [#/Vol] 44 10*3/uL Low 140-440 [facility] Comment on above: Performed By: #### D IFBF, AMYM3, FLDCC, ALBM3, LDMS3, GLMS3 #### [address] RBC (Bld) [#/Vol] 2.45 10*6/uL Low 4.40-5.90 [facility] Comment on above: Performed By: #### D IFBF, AMYM3, FLDCC, ALBM3, LDMS3, GLMS3 #### [address] WBC (Bld) [#/Vol] 6.9 10*3/uL Normal 3.6-10.7 [facility] Comment on above: Performed By: #### D IFBF, AMYM3, FLDCC, ALBM3, LDMS3, GLMS3 #### [facility] [address] [place] [address] Lactic Acidon 05-03-2021 Lactate [Moles/Vol] 2.0 mmol/L Normal 0.7-2.0 [facility] Comment on above: Performed By: #### D IFBF, AMYM3, FLDCC, ALBM3, LDMS3, GLMS3 #### [facility] [address] [place], [place] Lactate [Moles/Vol] 1.5 mmol/L Normal 0.7-2.0 [facility] Comment on above: Performed By: #### D IFBF, AMYM3, FLDCC, ALBM3, LDMS3, GLMS3 #### [facility] [address] [place] [place], [place] Magnesiumon 05-03-2021 Magnesium [Mass/Vol] 1.7 mg/dL Normal 1.6-2.3 [facility] Comment on above: Performed By: #### D IFBF, AMYM3, FLDCC, ALBM3, LDMS3, GLMS3 #### [facility] [address] [place] [address] Prothrombin Timeon INR 1.8 High 0.9-1.1 [facility] Comment on above: Result Comment: Herber mmended [...] IFBF, AMYM3, FLDCC, ALBM3, LDMS3, GLMS3 #### [facility] [address] [place] [address] PT Coag (PPP) [Time] 18.2 s High 9.0-12.0 [facility] Comment on above: Result Comment: . Performed By: #### D IFBF, AMYM3, FLDCC, ALBM3, LDMS3, GLMS3 #### [place] [address] [place] Vancomycin Troughon 05-03-19 Vancomycin Trough 5.8 ug/mL Low 15.0-20.0 [facility] Comment on above: Result Comment: . Performed By: #### D IFBF, AMYM3, FLDCC, ALBM3, LDMS3, GLMS3 #### [place] [address] [place], [place] Acute Hepatitis Panelon Hep C Antibody Not detected Normal Not Detected [facility] Comment on above: Result Comment: Patients with DETECTED Hepatitis C Ab results should have a new specimen submitted for supplemental testing with a Hepatitis C Quantitative RNA assay (viral load), if clinically indicated. Performed By: #### D IFBF, AMYM3, FLDCC, ALBM3, LDMS3, GLMS3 #### [place] [address] [place], [place] Hep A Virus Ab,IgM Not detected Normal Not Detected [facility] Comment on above: Performed By: #### D IFBF, AMYM3, FLDCC, ALBM3, LDMS3, GLMS3 #### [place] [address] [place] Hep B Core IgM Not detected Normal Not Detected [facility] Comment on above: Performed By: #### D IFBF, AMYM3, FLDCC, ALBM3, LDMS3, GLMS3 #### [place] [address] [place], [place] Hep B Surface Ag Not detected Normal Not Detected [facility] Comment on above: Performed By: #### D IFBF, AMYM3, FLDCC, ALBM3, LDMS3, GLMS3 #### [address] [address] [place], [place] Albumin, Body Fluidon 2021 Albumin, Misc < 1.0 Normal No Range [facility] Comment on above: Performed By: #### D IFBF, AMYM3, FLDCC, ALBM3, LDMS3, GLMS3 #### [facility] [address] [place], [place] Amylase, Body Fluidon 2021 Amylase, Misc < 30 Normal No Range [facility] Comment on above: Performed By: #### D IFBF, AMYM3, FLDCC, ALBM3, LDMS3, GLMS3 #### [facility] [address] [place], [place] Cell Count,Body Fluidon RBC Count Body Fld 143 {RBC}/uL Normal [facility] Comment on above: Performed By: #### D IFBF, AMYM3, FLDCC, ALBM3, LDMS3, GLMS3 #### [place] [address] [place], [place] Nucleated Cells 882 {cells}/uL Normal [facility] Comment on above: Performed By: #### D IFBF, AMYM3, FLDCC, ALBM3, LDMS3, GLMS3 #### [place] [address] [place] Fluid Type Paracentesis Normal [facility] Comment on above: Performed By: #### D IFBF, AMYM3, FLDCC, ALBM3, LDMS3, GLMS3 #### [place] [address] [place], [place] Comp Metabolic Panelon 05-02 Calcium [Mass/Vol] 7.5 mg/dL Low 8.4-10.4 [facility] Comment on above: Order Comment: gross ly icteric Performed By: #### D IFBF, AMYM3, FLDCC, ALBM3, LDMS3, GLMS3 #### [place] [address] [place] ALP [Catalytic activity/Vol] 312 U/L High 38-126 [facility] Comment on above: Order Comment: gross ly icteric Performed By: #### D IFBF, AMYM3, FLDCC, ALBM3, LDMS3, GLMS3 #### [place] [address] [place] ALT [Catalytic activity/Vol] 52 U/L High 0-49 [facility] Comment on above: Order Comment: gross ly icteric Result Comment: The ALT test is performed by an updated assay method. Please note that the reference intervals have been changed and are now sex specific. Performed By: #### D IFBF, AMYM3, FLDCC, ALBM3, LDMS3, GLMS3 #### [facility] [address] [place] [place], [place] Anion gap [Moles/Vol] 9 mmol/L Normal 3-13 [facility] Comment on above: Order Comment: gross ly icteric Performed By: #### D IFBF, AMYM3, FLDCC, ALBM3, LDMS3, GLMS3 #### [place] [address] [place] AST [Catalytic activity/Vol] 196 U/L High 15-46 [facility] Comment on above: Order Comment: gross ly icteric Performed By: #### D IFBF, AMYM3, FLDCC, ALBM3, LDMS3, GLMS3 #### [place] [address] [place] Bilirubin [Mass/Vol] 23.5 mg/dL High 0.2-1.3 [facility] Comment on above: Order Comment: gross ly icteric Performed By: #### D IFBF, AMYM3, FLDCC, ALBM3, LDMS3, GLMS3 #### [place] [address] [place] CO2 [Moles/Vol] 26 mmol/L Normal 22-30 [facility] Comment on above: Order Comment: gross ly icteric Performed By: #### D IFBF, AMYM3, FLDCC, ALBM3, LDMS3, GLMS3 #### [place] [address] [place] Glucose [Mass/Vol] 123 mg/dL High 70-100 [facility] Comment on above: Order Comment: gross ly icteric Performed By: #### D IFBF, AMYM3, FLDCC, ALBM3, LDMS3, GLMS3 #### [place] [address] [address] [place] Protein [Mass/Vol] 7.1 g/dL Normal 6.3-8.2 [facility] Comment on above: Order Comment: gross ly icteric Performed By: #### D IFBF, AMYM3, FLDCC, ALBM3, LDMS3, GLMS3 #### [facility] [address] [place], [place] Urea nitrogen [Mass/Vol] 9 mg/dL Normal 7-17 [facility] Comment on above: Order Comment: gross ly icteric Performed By: #### D IFBF, AMYM3, FLDCC, ALBM3, LDMS3, GLMS3 #### [facility] [address] [place], [place] Creatinine [Mass/Vol] 0.64 mg/dL Normal 0.52-1.25 [facility] Comment on above: Order Comment: gross ly icteric Performed By: #### D IFBF, AMYM3, FLDCC, ALBM3, LDMS3, GLMS3 #### [facility] [address] [place] eGFR OTHER > 90.0 Normal >60 [facility] Comment on above: Order Comment: gross ly [...] IFBF, AMYM3, FLDCC, ALBM3, LDMS3, GLMS3 #### [facility] [address] [place], [place] GFR/1.73 sq M.predicted among blacks MDRD (S/P/Bld) [Vol rate/Area] mL/min/{1.73_m2} Normal >60 [facility] Comment on above: Order Comment: gross ly icteric Performed By: #### D IFBF, AMYM3, FLDCC, ALBM3, LDMS3, GLMS3 #### [facility] [address] [place], [place] Albumin [Mass/Vol] 2.4 g/dL Low 3.5-5.0 [facility] Comment on above: Order Comment: gross ly icteric Performed By: #### D IFBF, AMYM3, FLDCC, ALBM3, LDMS3, GLMS3 #### [place] [address] [place] Potassium [Moles/Vol] 3.5 mmol/L Normal 3.5-5.1 [facility] Comment on above: Order Comment: gross ly icteric Performed By: #### D IFBF, AMYM3, FLDCC, ALBM3, LDMS3, GLMS3 #### [place] [address] [place] Sodium [Moles/Vol] 130 mmol/L Low 135-145 [facility] Comment on above: Order Comment: gross ly icteric Performed By: #### D IFBF, AMYM3, FLDCC, ALBM3, LDMS3, GLMS3 #### [place] [address] [place] Chloride [Moles/Vol] 95 mmol/L Low 98-107 [facility] Comment on above: Order Comment: gross ly icteric Performed By: #### D IFBF, AMYM3, FLDCC, ALBM3, LDMS3, GLMS3 #### [place] [address] [place], [place] Differential,Body Fluidson 0 05-02-2021 Cells Counted for Diff 200 Normal [facility] Comment on above: Performed By: #### D IFBF, AMYM3, FLDCC, ALBM3, LDMS3, GLMS3 #### [address] [place] [address] Lymphocytes/100 WBC (Bld) 3 % Normal [facility] Comment on above: Performed By: #### D IFBF, AMYM3, FLDCC, ALBM3, LDMS3, GLMS3 #### [facility] [address] [place] [address] Macrophages 18 % Normal [facility] Comment on above: Performed By: #### D IFBF, AMYM3, FLDCC, ALBM3, LDMS3, GLMS3 #### [facility] [address] [place] [address] Monocytes/100 WBC (Bld) 8 % Normal [facility] Comment on above: Performed By: #### D IFBF, AMYM3, FLDCC, ALBM3, LDMS3, GLMS3 #### [facility] [place] [address] [place] [address] Neutrophils/100 WBC (Bld) 68 % Normal [facility] Comment on above: Performed By: #### D IFBF, AMYM3, FLDCC, ALBM3, LDMS3, GLMS3 #### [facility] [place] [address] [place] [address] Lymphocytes/100 WBC (Bld) 5 % Normal [facility] Comment on above: Performed By: #### D IFBF, AMYM3, FLDCC, ALBM3, LDMS3, GLMS3 #### [facility] [place] [place] [address] Monocytes/100 WBC (Bld) 2 % Normal [facility] Comment on above: Performed By: #### D IFBF, AMYM3, FLDCC, ALBM3, LDMS3, GLMS3 #### [facility] [place] [place] [address] Neutrophils/100 WBC (Bld) 93 % Normal [facility] Comment on above: Performed By: #### D IFBF, AMYM3, FLDCC, ALBM3, LDMS3, GLMS3 #### [facility] [place] [address] [place] [address] Hemogram w/ Autodiffon 05-02 Erythrocyte distribution width (RBC) [Ratio] 14.3 % Normal 11.5-14.5 [facility] Comment on above: Performed By: #### D IFBF, AMYM3, FLDCC, ALBM3, LDMS3, GLMS3 #### [address] Hematocrit (Bld) [Volume fraction] 29.0 % Low 40.0-52.0 [facility] Comment on above: Performed By: #### D IFBF, AMYM3, FLDCC, ALBM3, LDMS3, GLMS3 #### [address] [address] [place], [place] Hemoglobin (Bld) [Mass/Vol] 10.3 g/dL Low 13.0-18.0 [facility] Comment on above: Performed By: #### D IFBF, AMYM3, FLDCC, ALBM3, LDMS3, GLMS3 #### [address] MCH (RBC) [Entitic mass] 40.3 pg High 26.0-34.0 [facility] Comment on above: Performed By: #### D IFBF, AMYM3, FLDCC, ALBM3, LDMS3, GLMS3 #### [address] MCHC 35.3 % Normal 32.0-36.0 [facility] Comment on above: Performed By: #### D IFBF, AMYM3, FLDCC, ALBM3, LDMS3, GLMS3 #### [address] MCV (RBC) [Entitic vol] 114.0 fL High 80.0-98.0 [facility] Comment on above: Performed By: #### D IFBF, AMYM3, FLDCC, ALBM3, LDMS3, GLMS3 #### [address] Platelet mean volume (Bld) [Entitic vol] 8.3 fL Normal 7.4-10.4 [facility] Comment on above: Performed By: #### D IFBF, AMYM3, FLDCC, ALBM3, LDMS3, GLMS3 #### [facility] [address] [place], [place] Platelets (Bld) [#/Vol] 58 10*3/uL Low 140-440 [facility] Comment on above: Performed By: #### D IFBF, AMYM3, FLDCC, ALBM3, LDMS3, GLMS3 #### [place] [address] [place], [place] RBC (Bld) [#/Vol] 2.55 10*6/uL Low 4.40-5.90 [facility] Comment on above: Performed By: #### D IFBF, AMYM3, FLDCC, ALBM3, LDMS3, GLMS3 #### [place] [address] [place], [place] WBC (Bld) [#/Vol] 8.1 10*3/uL Normal 3.6-10.7 [facility] Comment on above: Performed By: #### D IFBF, AMYM3, FLDCC, ALBM3, LDMS3, GLMS3 #### [place] [address] [place], [place] Manual Diffon 05-02-2021 Abs Baso Cnt 0.1 10*3/uL Normal 0.0-0.2 [facility] Comment on above: Performed By: #### D IFBF, AMYM3, FLDCC, ALBM3, LDMS3, GLMS3 #### [place] [address] [place], [place] Abs Eosin Cnt 0.2 10*3/uL Normal 0.0-0.5 [facility] Comment on above: Performed By: #### D IFBF, AMYM3, FLDCC, ALBM3, LDMS3, GLMS3 #### [place] [address] [place], [place] Abs Lymph Cnt 0.2 10*3/uL Low 1.1-4.5 [facility] Comment on above: Performed By: #### D IFBF, AMYM3, FLDCC, ALBM3, LDMS3, GLMS3 #### [place] [address] [place], [place] Abs Monocyte Cnt 0.6 10*3/uL Normal 0.2-1.1 [facility] Comment on above: Performed By: #### D IFBF, AMYM3, FLDCC, ALBM3, LDMS3, GLMS3 #### [facility] [place] [facility] [address] [place], [place] Abs Neutrophile Cnt 7.0 10*3/uL Normal 2.2-8.2 [facility] Comment on above: Performed By: #### D IFBF, AMYM3, FLDCC, ALBM3, LDMS3, GLMS3 #### [facility] [place] [facility] [address] [place], [place] Basophils 1 % Normal 0-2 [facility] Comment on above: Performed By: #### D IFBF, AMYM3, FLDCC, ALBM3, LDMS3, GLMS3 #### [facility] [address] [place], [place] Eosinophils 2 % Normal 1-6 [facility] Comment on above: Performed By: #### D IFBF, AMYM3, FLDCC, ALBM3, LDMS3, GLMS3 #### [facility] [place] [facility] [address] [place], [place] Lymphocytes 3 % Low 20-40 [facility] [place] [facility] Comment on above: Performed By: #### D IFBF, AMYM3, FLDCC, ALBM3, LDMS3, GLMS3 #### [facility] [place] [facility] [address] [place], [place] Monocytes 7 % Normal 2-10 [facility] [place] [facility] Comment on above: Performed By: #### D IFBF, AMYM3, FLDCC, ALBM3, LDMS3, GLMS3 #### [facility] [place] [facility] [address] [place], [place] Ovalocytes Slight Normal [facility] Comment on above: Performed By: #### D IFBF, AMYM3, FLDCC, ALBM3, LDMS3, GLMS3 #### [facility] [place] [facility] [address] [place], [place] Poikilocytosis Slight Normal [facility] [place] [facility] Comment on above: Performed By: #### D IFBF, AMYM3, FLDCC, ALBM3, LDMS3, GLMS3 #### [facility] [address] [place], [place] RBC Morphology ABNORMAL Normal [facility] Comment on above: Performed By: #### D IFBF, AMYM3, FLDCC, ALBM3, LDMS3, GLMS3 #### [facility] [address] [place], [place] Seg Neutrophils 87 % High 40-80 [facility] [place] [facility] Comment on above: Performed By: #### D IFBF, AMYM3, FLDCC, ALBM3, LDMS3, GLMS3 #### [facility] [place] [facility] [address] [place], [place] Tear Drop Forms Slight Normal [facility] Comment on above: Performed By: #### D IFBF, AMYM3, FLDCC, ALBM3, LDMS3, GLMS3 #### [facility] [place] [facility] [address] [place], [place] Bands 0 % Normal 0-3 [facility] [place] [facility] Comment on above: Performed By: #### D IFBF, AMYM3, FLDCC, ALBM3, LDMS3, GLMS3 #### [facility] [place] [facility] [address] [place], [place] Cells counted 100 Normal [facility] Comment on above: Performed By: #### D IFBF, AMYM3, FLDCC, ALBM3, LDMS3, GLMS3 #### [facility] [place] [facility] [address] [place], [place] Medical Cytologyon 2 Medical Cytology [facility] N T22-29 DEPARTMENT OF PATHOLOGY AND [facility] LABORATORY MEDICINE [address] [place] [address] FINAL MEDICAL CYTOLOGY REPORT NAME: DANNY BEDOYA : 1980 41 Y Megha ALBRECHT NO.: [id number] LOCATION: [address] [place] [address] [facility] 1465 PROCEDURE 05/02/2021 B DATE: PHYSICIAN: BRIJESH [...] characteristics determined by the clinical laboratories of [facility]. They have not been cleared by the [...] negativity on decalcified specimens. Case reviewed at [place] [address] [place] [address]. DEPARTMENT OF PATHOLOGY AND LABORATORY MEDICINE [place], [place] [address] [email or web address] Normal [facility] Protein, Total Body Fluidon 05-02-2021 Fluid Type Paracentesis Normal [facility] Comment on above: Performed By: #### D IFBF, AMYM3, FLDCC, ALBM3, LDMS3, GLMS3 #### [facility] [address] [place] [address] Protein,Total-Body Fld < 2.0 Normal No Range [facility] Comment on above: Performed By: #### D IFBF, AMYM3, FLDCC, ALBM3, LDMS3, GLMS3 #### [facility] [address] [place] [address] STAIN GRAMon 05-02-2021 STAIN GRAM STAIN GRAM --> Statu s: F Moderate polymorphonuclear cells/lpf. No organisms seen. No organisms seen. Normal [facility] Comment on above: Performed By: #### D IFBF, AMYM3, FLDCC, ALBM3, LDMS3, GLMS3 #### [facility] [address] [place] [address] STAIN GRAM STAIN GRAM --> Statu s: F Few polymorphonuclear cells/lpf. No organisms seen. No organisms seen. Normal [facility] Comment on above: Performed By: #### C XFLD, S/GRM #### [facility] [address] [place] [address] US Paracentesison 05-02-2021 US Paracentesis Patient Name: DANNY MATSON Ultrasound ACCESSION EXAM DATE/TIME PROCEDURE ORDERING PROVIDER [id number] 05/02/2021 11:18 EST US Paracentesis Initial [id number] -BRIJESH HERNANDEZ CPT code 83919 Reason For Exam (US Paracentesis Initial) ER [...] 1 percent lidocaine. Following this, a 5 Maced[place] Yueh catheter was then advanced into the [...] 14:24 EDT by ROBY MARTINES TROY Normal [facility] Albumin, Body Fluidon 2021 Albumin, Misc < 1.0 Normal No Range [facility] Comment on above: Performed By: #### D IFBF, AMYM3, FLDCC, ALBM3, LDMS3, GLMS3 #### [address] [address] Ammoniaon 05-01-2021 Ammonia (P) [Moles/Vol] 28 umol/L Normal 9-30 [facility] Comment on above: Performed By: #### D IFBF, AMYM3, FLDCC, ALBM3, LDMS3, GLMS3 #### [facility] [address] [place], [place] Amylase, Body Fluidon 2021 Amylase, Misc < 30 Normal No Range [facility] Comment on above: Performed By: #### D IFBF, AMYM3, FLDCC, ALBM3, LDMS3, GLMS3 #### [facility] [address] [place], [place] Basic Metabolic Panelon Calcium [Mass/Vol] 8.3 mg/dL Low 8.4-10.4 [facility] Comment on above: Performed By: #### C /BLD #### [place] [address] [place], [place] Glucose [Mass/Vol] 115 mg/dL High 70-100 [facility] Comment on above: Performed By: #### C /BLD #### [place] [address] [place], [place] Anion gap [Moles/Vol] 11 mmol/L Normal 3-13 [facility] Comment on above: Performed By: #### C /BLD #### [place] [address] [place], [place] CO2 [Moles/Vol] 27 mmol/L Normal 22-30 [facility] Comment on above: Performed By: #### C /BLD #### [place] [address] [place], [place] Creatinine [Mass/Vol] 0.67 mg/dL Normal 0.52-1.25 [facility] Comment on above: Performed By: #### C /BLD #### [place] [address] [place], [place] eGFR OTHER > 90.0 Normal >60 [facility] Comment on above: Result Comment: KDIG O [...] secretion. Performed By: #### C /BLD #### [place] [address] [place], [place] GFR/1.73 sq M.predicted among blacks MDRD (S/P/Bld) [Vol rate/Area] mL/min/{1.73_m2} Normal >60 [facility] Comment on above: Performed By: #### C /BLD #### [place] [address] [place], [place] Urea nitrogen [Mass/Vol] 9 mg/dL Normal 7-17 [facility] Comment on above: Performed By: #### C /BLD #### [place] [address] [place], [place] Chloride [Moles/Vol] 93 mmol/L Low 98-107 [facility] Comment on above: Performed By: #### C /BLD #### [address] Potassium [Moles/Vol] 3.7 mmol/L Normal 3.5-5.1 [facility] Comment on above: Performed By: #### C /BLD #### [address] Sodium [Moles/Vol] 131 mmol/L Low 135-145 [facility] Comment on above: Performed By: #### C /BLD #### [address] CR Chest Portableon 05-01-19 22 CR Chest Portable Patient Name: DANNY MATSON Diagnostic Radiology ACCESSION EXAM DATE/TIME PROCEDURE ORDERING PROVIDER [id number] 05/01/2021 19:32 EST CR Chest Portable Jose David TOLU ALESSIO CPT code 62151 Reason For Exam (CR Chest Portable) dyspnea [...] Transcribed Date and Time: 05/01/2021 7:39 Normal [facility] CT Abdomen/Pelvis w/ Contras ton 05-01-2021 CT Abdomen/Pelvis w/ Contrast Patient Name: DANNY BEDOYA Computed Tomography ACCESSION EXAM DATE/TIME PROCEDURE ORDERING PROVIDER [id number] 05/01/2021 21:[address] Abdomen/Pelvis w/ IV [id number] MOTLEY Contrast (IV Onl ALESSIO CPT code 90637 [id number] Reason For Exam (CT Abdomen/Pelvis w/ [...] Transcribed Date and Time: 05/01/2021 9:21 Normal [facility] Cell Count,Body Fluidon Nucleated Cells 1630 {cells}/uL Normal [facility] Comment on above: Performed By: #### D IFBF, AMYM3, FLDCC, ALBM3, LDMS3, GLMS3 #### [place] [address] [place], [place] RBC Count Body Fld 1322 {RBC}/uL Normal [facility] Comment on above: Performed By: #### D IFBF, AMYM3, FLDCC, ALBM3, LDMS3, GLMS3 #### [place] [address] [place] [address] Fluid Type Ascites Normal [facility] Comment on above: Performed By: #### D IFBF, AMYM3, FLDCC, ALBM3, LDMS3, GLMS3 #### [place] [address] [place] [address] Differential,Body Fluidson 0 05-01-2021 Cells Counted for Diff 100 Normal [facility] Comment on above: Performed By: #### D IFBF, AMYM3, FLDCC, ALBM3, LDMS3, GLMS3 #### [place] [address] [place] [address] ED Provider Noteon 2 ED Provider Note [facility] EMERG[facility]Y [facility] EMERGENCY [...] patient come from an ECF, SNF, Rehab, Mcfp or other Congregate setting: No (If yes [...] 10 years. He reportedly was evaluated at [place] twice 4 weeks ago and subsequently discharged. [...] 2 Cans of beer per week Comment: drink or two a day ? Drug use: Yes Types: Marijuana ([place]) ? Sexual activity: None Other Topics Concern [...] and Family: Not on file ? Attends Buddhism Services: Not on file ? Active Member [...] ?C) Oral 122 16 97 % 5' 4 (1.626 m) 167 lb (75.8 kg) Physical Exam Constitutional: General: He is not in acute distress. Appearance: He is well-developed. He is not ill-appearing. HENT: Head: Normocephalic and atraumatic. Cardiovascular: Rate and Rhythm: Regular rhythm. Tachycardia present. Heart sounds: Normal heart sounds. No murmur heard. No gallop. Pulmonary: Effort: Pulmonary effort is normal. No respirat (more content not included)... Normal [facility] [place] [facility] ED Provider Note [facility] EMERGENCY DEPT EMERGENCY DEPARTMENT ENCOUNTER Pt Name: [...] (36.8 ?C) (Oral) Resp 16 Ht 5' 4 (1.626 m) Wt 75.8 kg (167 lb) [...] (electronically sig (more content not included)... Normal [facility] ED Provider Note Emergency Department Encounter [facility] EMERGENCY DEPT Patient: Danny Bedoya : 1980 Date of Evaluation: 05/01/2021 ED Provider: BEA Jauregui CNP As the [id number], I performed a medical screening history and physical exam on this patient. HISTORY OF PRESENT ILLNESS In brief, Danny Bedoya is a 41 y.o. male that presents for abdominal pain. Patient reports having abdominal pain for past couple of weeks. Patient reported seeing provider at [facility] who reported he was constipated. Patient also reported his PCP had physically [...] Weight 167 lb (75.8 kg) Height 5' 4 (1.626 m) Head Circumference Peak Flow Pain [...] soon as available. Alessio Nolasco APRN - [employer] BEA Jauregui CNP 05/01/212000 Normal [facility] Glucose, Body Fluidon 2021 Glucose, Body Fluid 113 mg/dL Normal No Range [facility] Comment on above: Performed By: #### D IFBF, AMYM3, FLDCC, ALBM3, LDMS3, GLMS3 #### [place] [address] [place], [place] Hemogram w/ Autodiffon 05-01 Erythrocyte distribution width (RBC) [Ratio] 14.6 % High 11.5-14.5 [facility] Comment on above: Performed By: #### C /BLT #### [address] Hematocrit (Bld) [Volume fraction] 34.1 % Low 40.0-52.0 [facility] Comment on above: Performed By: #### C /BLT #### [address] Hemoglobin (Bld) [Mass/Vol] 11.9 g/dL Low 13.0-18.0 [facility] Comment on above: Performed By: #### C /BLT #### [address] MCH (RBC) [Entitic mass] 39.7 pg High 26.0-34.0 [facility] Comment on above: Performed By: #### C /BLT #### [address] MCHC 34.8 % Normal 32.0-36.0 [facility] Comment on above: Performed By: #### C /BLT #### [address] MCV (RBC) [Entitic vol] 114.2 fL High 80.0-98.0 [facility] Comment on above: Performed By: #### C /BLT #### [address] Platelet mean volume (Bld) [Entitic vol] 8.6 fL Normal 7.4-10.4 [facility] Comment on above: Performed By: #### C /BLT #### [facility] [address] [place], [place] Platelets (Bld) [#/Vol] 82 10*3/uL Low 140-440 [facility] Comment on above: Performed By: #### C /BLT #### [facility] [address] [place], [place] RBC (Bld) [#/Vol] 2.99 10*6/uL Low 4.40-5.90 [facility] Comment on above: Performed By: #### C /BLT #### [place] [address] [place], [place] WBC (Bld) [#/Vol] 11.1 10*3/uL High 3.6-10.7 [facility] Comment on above: Performed By: #### C /BLT #### [place] [address] [place], [place] Hepatic Functionon 2 ALP [Catalytic activity/Vol] 349 U/L High 38-126 [facility] Comment on above: Performed By: #### C /BLD #### [place] [address] [place], [place] ALT [Catalytic activity/Vol] 60 U/L High 0-49 [facility] Comment on above: Result Comment: The ALT test is performed by an updated assay method. Please note that the reference intervals have been changed and are now sex specific. Performed By: #### C /BLD #### [facility] [address] [place], [place] AST [Catalytic activity/Vol] 218 U/L High 15-46 [facility] Comment on above: Performed By: #### C /BLD #### [facility] [address] [place], [place] Bilirubin [Mass/Vol] 24.2 mg/dL High 0.2-1.3 [facility] Comment on above: Performed By: #### C /BLD #### [facility] [address] [place], [place] Bilirubin.indirect [Mass/Vol] 15.1 mg/dL Critically high 0.0-0.3 [facility] Comment on above: Performed By: #### C /BLD #### [facility] [address] [place], [place] Protein [Mass/Vol] 7.5 g/dL Normal 6.3-8.2 [facility] Comment on above: Performed By: #### C /BLD #### [facility] [address] [place], [place] Albumin [Mass/Vol] 2.7 g/dL Low 3.5-5.0 [facility] Comment on above: Performed By: #### C /BLD #### [facility] [address] [place], [place] LDH, Body Fluidon 05-01-2021 Fluid Type Acites Normal [facility] Comment on above: Performed By: #### D IFBF, AMYM3, FLDCC, ALBM3, LDMS3, GLMS3 #### [facility] [address] [place], [place] LDH, Body Fluid 143 U/L Normal No Range [facility] Comment on above: Performed By: #### D IFBF, AMYM3, FLDCC, ALBM3, LDMS3, GLMS3 #### [facility] [address] [place] Lactic Acidon 05-01-2021 Lactate [Moles/Vol] 3.8 mmol/L Critically high 0.7-2.0 [facility] Comment on above: Result Comment: Crit ical Panic Lactate has fallen below the [facility] CCL/ED Panic Call Protocol. For [facility] ED patients ONLY the Lactate Levels greater than 2.0 and less than or equal to 4.0 mmol/L fall under the Panic Call Policy. Performed By: #### C /BLD #### [facility] [address] [place], [place] Lipaseon 05-01-2021 Lipase [Catalytic activity/Vol] 446 U/L High 23-300 [facility] Comment on above: Performed By: #### C /BLD #### [place] [address] [place], [place] Manual Diffon 05-01-2021 Abs Baso Cnt 0.0 10*3/uL Normal 0.0-0.2 [facility] Comment on above: Performed By: #### C /BLT #### [place] [address] [place], [place] Abs Eosin Cnt 0.0 10*3/uL Normal 0.0-0.5 [facility] Comment on above: Performed By: #### C /BLT #### [address] Abs Lymph Cnt 0.7 10*3/uL Low 1.1-4.5 [facility] Comment on above: Performed By: #### C /BLT #### [place] [address] [place], [place] Abs Monocyte Cnt 0.9 10*3/uL Normal 0.2-1.1 [facility] Comment on above: Performed By: #### C /BLT #### [address] Abs Neutrophile Cnt 9.5 10*3/uL High 2.2-8.2 [facility] Comment on above: Performed By: #### C /BLT #### [place] [address] [place] Anisocytosis Slight Normal [facility] Comment on above: Performed By: #### C /BLT #### [address] Bands 0 % Normal 0-3 [facility] Comment on above: Performed By: #### C /BLT #### [address] Basophils 0 % Normal 0-2 [facility] Comment on above: Performed By: #### C /BLT #### [place] [address] [place], [place] Cells counted 100 Normal [facility] Comment on above: Performed By: #### C /BLT #### [facility] [address] [place], [place] Eosinophils 0 % Low 1-6 [facility] Comment on above: Performed By: #### C /BLT #### [facility] [address] [place], [place] Lymphocytes 6 % Low 20-40 [facility] Comment on above: Performed By: #### C /BLT #### [facility] [address] [place], [place] Macrocytosis Slight Normal [facility] Comment on above: Performed By: #### C /BLT #### [facility] [address] [place], [place] Monocytes 8 % Normal 2-10 [facility] Comment on above: Performed By: #### C /BLT #### [facility] [address] [place], [place] Ovalocytes Slight Normal [facility] Comment on above: Performed By: #### C /BLT #### [facility] [address] [place], [place] Poikilocytosis Slight Normal [facility] Comment on above: Performed By: #### C /BLT #### [facility] [address] [place], [place] RBC Morphology ABNORMAL Normal [facility] Comment on above: Performed By: #### C /BLT #### [facility] [address] [place], [place] Seg Neutrophils 86 % High 40-80 [facility] Comment on above: Performed By: #### C /BLT #### [facility] [address] [place], [place] Medical Cytologyon 2 Medical Cytology [facility] N T22-28 DEPARTMENT OF PATHOLOGY AND [facility] LABORATORY MEDICINE [address] [place] [address] FINAL MEDICAL CYTOLOGY REPORT NAME: DANNY BEDOYA : 1980 41 Y Megha ALBRECHT NO.: [id number] LOCATION: [address] [place] [address] [facility] 1465 PROCEDURE 05/01/2021 B DATE: PHYSICIAN: CHANDU [...] . . . . . . 1 SJK Screened by Ethan MAHMOOD, PhD The following statement applies to all immunohistochemistry, in situ hybridization, molecular studies, and immunofluorescence testing. The use of one or more reagents in the above tests is regulated as an analyte specific reagent (ASR). These tests were developed and their performance characteristics determined by the clinical laboratories of [facility]. They have not been cleared by the [...] negativity on decalcified specimens. Case reviewed at [facility] [address] [place] [address]. DEPARTMENT OF PATHOLOGY AND LABORATORY MEDICINE [place], [place] [address] [email or web address] Normal [facility] NT pro BNPon 05-01-2021 Natriuretic peptide B (Bld) [Mass/Vol] 59 pg/mL Normal 0-125 [facility] Comment on above: Performed By: #### C /BLD #### [facility] [address] [place] [address] Protime AND APTTon aPTT Coag (Bld) [Time] 44.2 s High 20.0-30.5 [facility] Comment on above: Result Comment: NOTE : The therapeutic time for Heparin anticoagulation, based on Xa activity inhibition, is an APTT of 46-80 seconds. Performed By: #### D IFBF, AMYM3, FLDCC, ALBM3, LDMS3, GLMS3 #### [facility] [address] [place] [address] INR 1.8 High 0.9-1.1 [facility] Comment on above: Result Comment: Herber mmended [...] IFBF, AMYM3, FLDCC, ALBM3, LDMS3, GLMS3 #### [facility] [address] [place] [address] PT Coag (PPP) [Time] 18.2 s High 9.0-12.0 [facility] Comment on above: Result Comment: . Performed By: #### D IFBF, AMYM3, FLDCC, ALBM3, LDMS3, GLMS3 #### [facility] [address] [place], [place] SARS-CoV-2, Flu A/B and RSVo n 05-01-2021 SARS-CoV-2 (COVID-19) RNA DANA+probe Ql (Unsp spec) SARS-CoV-2 --> Status: F Not Detected. Flu A PCR --> Status: F Not Detected. Flu B PCR --> Status: F Not Detected. RSV PCR --> Status: F Not Detected. Expected Result: Not Detected _ Method: Real-time, RT-PCR This assay was developed by [employer] and distributed under an Emergency Use Authorization (EUA) granted by the FDA for the qualitative detection of nucleic acids from SARS-CoV-2, Influenza A, Influenza B, and Respiratory Syncytial Virus. Provider and patient fact sheets can be found at https://www.fda.gov/media/ 30078/download and https://www.fda.gov/media/ 23608/download. Expected Result: Not Detected _ Method: Real-time, RT-PCR This assay was developed by [employer] and distributed under an Emergency Use Authorization (EUA) granted by the FDA for the qualitative detection of nucleic acids from SARS-CoV-2, Influenza A, Influenza B, and Respiratory Syncytial Virus. Provider and patient fact sheets can be found at https://www.fda.gov/media/ 97626/download and https://www.fda.gov/media/ 75740/download. Normal [facility] Comment on above: Performed By: #### D IFBF, AMYM3, FLDCC, ALBM3, LDMS3, GLMS3 #### [facility] [address] [place], [place] Troponin Ion 05-01-2021 Troponin I.cardiac [Mass/Vol] ng/mL Normal 0.000-0.03 4 [facility] Comment on above: Result Comment: . Performed By: #### C /BLT #### [facility] [address] [place], [place] US Abdomen Limitedon 022 US Abdomen Limited Patient Name: DANNY MATSON Ultrasound ACCESSION EXAM DATE/TIME PROCEDURE ORDERING PROVIDER [id number] 05/01/2021 21:45 EST US Abdomen Limited [id number] -CHARANJIT QUINONEZ CPT code 54745 Reason For Exam (US Abdomen Limited) RUQ [...] WENDELL Transcribed Date and Time: 05/01/2021 10:17 [facility] Vital Signs Date Time Vital Sign Value Performing Clinician Facility 10-09-2024 09:30-0400 Body temperature 98.7 [degF] Dr. Lexi Barnes MD Work Phone: [facility] 10-09-2024 09:30-0400 Diastolic blood pressure 92 mm[Hg] Dr. Lexi Barnes MD Work Phone: [facility] 10-09-2024 09:30-0400 Heart rate 88 /min Dr. Lexi Barnes MD Work Phone: [facility] 10-09-2024 09:30-0400 Respiratory rate 16 /min Dr. Lexi Barnes MD Work Phone: [facility] 10-09-2024 09:30-0400 SaO2% (BldA) [Mass fraction] 95 % Dr. Lexi Barnes MD Work Phone: [facility] 10-09-2024 09:30-0400 Systolic blood pressure 132 mm[Hg] Dr. Lexi Barnes MD Work Phone: [facility] 10-08-2024 07:21-0400 Inhaled oxygen flow rate 2 L/min Dr. Lexi Barnes MD Work Phone: [facility] 10-08-2024 05:07-0400 Body height 160.[address] Lexi Barnes MD Work Phone: [facility] 10-08-2024 05:07-0400 Body mass index (BMI) [Ratio] 27.4 kg/m2 Dr. Lexi Barnes MD Work Phone: [facility] 10-08-2024 05:07-0400 Body weight 70.[address] Lexi Barnes MD Work Phone: [facility] 10-08-2024 04:44-0400 Body temperature 98.2 [degF] Dr. Lexi Barnes MD Work Phone: [facility] 10-08-2024 04:44-0400 Diastolic blood pressure 69 mm[Hg] Dr. Lexi Barnes MD Work Phone: [facility] 10-08-2024 04:44-0400 Heart rate 96 /min Dr. Lexi Barnes MD Work Phone: [facility] 10-08-2024 04:44-0400 Respiratory rate 18 /min Dr. Lexi Barnes MD Work Phone: [facility] 10-08-2024 04:44-0400 SaO2% (BldA) [Mass fraction] 96 % Dr. Lexi Barnes MD Work Phone: [facility] 10-08-2024 04:44-0400 Systolic blood pressure 133 mm[Hg] Dr. Lexi Barnes MD Work Phone: [facility] 10-08-2024 04:00-0400 Inhaled oxygen flow rate 1 L/min Dr. Lexi Barnes MD Work Phone: [facility] 10-08-2024 02:10-0400 Body height 162.[address] Lexi Barnes MD Work Phone: [facility] 10-08-2024 02:10-0400 Body mass index (BMI) [Ratio] 26.6 kg/m2 Dr. Lexi Barnes MD Work Phone: [facility] 10-08-2024 02:10-0400 Body weight 70.[address] Lexi Barnes MD Work Phone: [facility] 07-23-2024 08:00-0400 Body temperature 97.5 [degF] Dr. Lexi Barnes MD Work Phone: [facility] 07-23-2024 08:00-0400 Diastolic blood pressure 83 mm[Hg] Dr. Lexi Barnes MD Work Phone: [facility] 07-23-2024 08:00-0400 Heart rate 80 /min Dr. Lexi Barnes MD Work Phone: [facility] 07-23-2024 08:00-0400 Respiratory rate 16 /min Dr. Lexi Barnes MD Work Phone: [facility] 07-23-2024 08:00-0400 SaO2% (BldA) [Mass fraction] 98 % Dr. Lexi Barnes MD Work Phone: [facility] 07-23-2024 08:00-0400 Systolic blood pressure 134 mm[Hg] Dr. Lexi Barnes MD Work Phone: [facility] 07-23-2024 05:46-0400 Body mass index (BMI) [Ratio] 26.9 kg/m2 Dr. Lexi Barnes MD Work Phone: [facility] 07-23-2024 05:46-0400 Body weight [address] Lexi Barnes MD Work Phone: [facility] 07-23-2024 03:41-0400 Inhaled oxygen flow rate 2 L/min Dr. Lexi Barnes MD Work Phone: [facility] 07-22-2024 04:14-0400 Body height 162.[address] Lexi Barnes MD Work Phone: [facility] 07-22-2024 03:33-0400 Diastolic blood pressure 90 mm[Hg] Dr. Lexi Barnes MD Work Phone: [facility] 07-22-2024 03:33-0400 Heart rate 87 /min Dr. Lexi Barnes MD Work Phone: [facility] 07-22-2024 03:33-0400 Inhaled oxygen flow rate 4 L/min Dr. Lexi Barnes MD Work Phone: [facility] 07-22-2024 03:33-0400 Respiratory rate 19 /min Dr. Lexi Barnes MD Work Phone: [facility] 07-22-2024 03:33-0400 SaO2% (BldA) [Mass fraction] 93 % Dr. Lexi Barnes MD Work Phone: [facility] 07-22-2024 03:33-0400 Systolic blood pressure 143 mm[Hg] Dr. Lexi Barnes MD Work Phone: [facility] 07-22-2024 01:28-0400 Body temperature 97.9 [degF] Dr. Lexi Barnes MD Work Phone: [facility] 07-22-2024 00:51-0400 Inhaled oxygen concentration 30 % Dr. Lexi Barnes MD Work Phone: [facility] 07-22-2024 00:49-0400 Body height 162.[address] Lexi Barnes MD Work Phone: [facility] 07-22-2024 00:49-0400 Body mass index (BMI) [Ratio] 61 kg/m2 Dr. Lexi Barnes MD Work Phone: [facility] 07-22-2024 00:49-0400 Body weight 161.[address] Lexi Barnes MD Work Phone: [facility] 07-06-2024 15:24-0400 Body temperature 97.8 [degF] Dr. Lexi Barnes MD Work Phone: [facility] 07-06-2024 15:24-0400 Diastolic blood pressure 90 mm[Hg] Dr. Lexi Barnes MD Work Phone: [facility] 07-06-2024 15:24-0400 Heart rate 107 /min Dr. Lexi Barnes MD Work Phone: [facility] 07-06-2024 15:24-0400 Respiratory rate 20 /min Dr. Lexi Barnes MD Work Phone: [facility] 07-06-2024 15:24-0400 SaO2% (BldA) [Mass fraction] 91 % Dr. Lexi Barnes MD Work Phone: [facility] 07-06-2024 15:24-0400 Systolic blood pressure 151 mm[Hg] Dr. Lexi Barnes MD Work Phone: [facility] 07-06-2024 14:00-0400 Inhaled oxygen flow rate 3 L/min Dr. Lexi Barnes MD Work Phone: [facility] 07-06-2024 04:01-0400 Body mass index (BMI) [Ratio] 26.1 kg/m2 Dr. Lexi Barnes MD Work Phone: [facility] 07-06-2024 04:01-0400 Body weight 69.[address] Lexi Barnes MD Work Phone: [facility] 07-06-2024 03:53-0400 Body height 162.[address] Lexi Barnes MD Work Phone: [facility] 07-06-2024 02:33-0400 Body temperature 98.1 [degF] Dr. Lexi Barnes MD Work Phone: [facility] 07-06-2024 02:33-0400 Diastolic blood pressure 101 mm[Hg] Dr. Lexi Barnes MD Work Phone: [facility] 07-06-2024 02:33-0400 Heart rate 92 /min Dr. Lexi Barnes MD Work Phone: [facility] 07-06-2024 02:33-0400 Respiratory rate 20 /min Dr. Lexi Barnes MD Work Phone: [facility] 07-06-2024 02:33-0400 SaO2% (BldA) [Mass fraction] 97 % Dr. Lexi Barnes MD Work Phone: [facility] 07-06-2024 02:33-0400 Systolic blood pressure 144 mm[Hg] Dr. Lexi Barnes MD Work Phone: [facility] 07-05-2024 21:59-0400 Body height 165.[address] Lexi Barnes MD Work Phone: [facility] 06-11-2024 18:30-0500 Body temperature 98 [degF] Dr. Lexi Barnes MD Work Phone: [facility] 06-11-2024 18:30-0500 Diastolic blood pressure 89 mm[Hg] Dr. Lexi Barnes MD Work Phone: [facility] 06-11-2024 18:30-0500 Heart rate 104 /min Dr. Lexi Barnes MD Work Phone: [facility] 06-11-2024 18:30-0500 Respiratory rate 16 /min Dr. Lexi Barnes MD Work Phone: [facility] 06-11-2024 18:30-0500 SaO2% (BldA) [Mass fraction] 93 % Dr. Lexi Barnes MD Work Phone: [facility] 06-11-2024 18:30-0500 Systolic blood pressure 124 mm[Hg] Dr. Lexi Barnes MD Work Phone: [facility] 06-11-2024 17:22-0500 Inhaled oxygen flow rate 2 L/min Dr. Lexi Barnes MD Work Phone: [facility] 06-11-2024 16:18-0500 Body mass index (BMI) [Ratio] 25.3 kg/m2 Dr. Lexi Barnes MD Work Phone: [facility] 06-11-2024 16:18-0500 Body weight [address] Lexi Barnes MD Work Phone: [facility] 02-16-2024 16:06-0400 Body height 162.6 cm Dany Painter MD Work Phone: [facility] 02-16-2024 16:06-0400 Body mass index (BMI) [Ratio] 26.3 kg/m2 Dany Painter MD Work Phone: [facility] 02-16-2024 16:06-0400 Body temperature 98.4 [degF] Dany Painter MD Work Phone: [facility] 02-16-2024 16:06-0400 Body weight 69.49 kg Dany Painter MD Work Phone: [facility] 02-16-2024 16:06-0400 Diastolic blood pressure 94 mm[Hg] Dany Painter MD Work Phone: [facility] 02-16-2024 16:06-0400 Heart rate 80 /min Dany Painter MD Work Phone: [facility] 02-16-2024 16:06-0400 SaO2% (BldA) [Mass fraction] 99 % Dany Painter MD Work Phone: [facility] 02-16-2024 16:06-0400 Systolic blood pressure 140 mm[Hg] Dany Painter MD Work Phone: [facility] 10-25-2023 22:09-0400 Diastolic Blood Pressure Non-Invasive 109 mm[Hg] YVONNE REICHFIELD DO [facility] 10-25-2023 22:09-0400 Heart rate 86 /min YVONNE REICHFIELD DO [facility] 10-25-2023 22:09-0400 Respiratory rate 23 /min YVONNE REICHFIELD DO [facility] 10-25-2023 22:09-0400 Systolic Blood Pressure Non-Invasive 166 mm[Hg] YVONNE REICHFIELD DO [facility] 10-25-2023 21:01-0400 Heart rate 98 /min YVONNE REICHFIELD DO [facility] 10-25-2023 21:01-0400 Respiratory rate 22 /min YVONNE REICHFIELD DO [facility] 10-25-2023 20:35-0400 Body temperature 96.98 [degF] YVONNE REICHFIELD DO [facility] 10-25-2023 20:35-0400 Diastolic Blood Pressure Non-Invasive 99 mm[Hg] YVONNE REICHFIELD DO [facility] 10-25-2023 20:35-0400 Heart rate 101 /min YVONNE REICHFIELD DO [facility] 10-25-2023 20:35-0400 Respiratory rate 21 /min [facility] DO [facility] 10-25-2023 20:35-0400 Systolic Blood Pressure Non-Invasive 167 mm[Hg] [facility] DO [facility] 04-07-2023 14:52-0500 Body height 165.1 cm [facility] 04-07-2023 14:52-0500 Body mass index (BMI) [Ratio] 25.4 kg/m2 [facility] 04-07-2023 14:52-0500 Body temperature 97.5 [degF] [facility] 04-07-2023 14:52-0500 Body weight 69.3 kg [facility] 04-07-2023 14:52-0500 Diastolic blood pressure 95 mm[Hg] [facility] 04-07-2023 14:52-0500 Heart rate 74 /min [facility] 04-07-2023 14:52-0500 Respiratory rate 18 /min [facility] 04-07-2023 14:52-0500 SaO2% (BldA) [Mass fraction] 98 % [facility] 04-07-2023 14:52-0500 Systolic blood pressure 159 mm[Hg] [facility] 05-20-2022 10:27-0500 Body height 165.1 cm No Primary Care Physician [facility] 05-20-2022 10:27-0500 Body mass index (BMI) [Ratio] 27.1 kg/m2 No Primary Care Physician [facility] 05-20-2022 10:27-0500 Body temperature 97.5 [degF] No Primary Care Physician [facility] 05-20-2022 10:27-0500 Body weight 73.93 kg No Primary Care Physician [facility] 05-20-2022 10:27-0500 Diastolic blood pressure 82 mm[Hg] No Primary Care Physician [facility] 05-20-2022 10:27-0500 Heart rate 91 /min No Primary Care Physician [facility] 05-20-2022 10:27-0500 Respiratory rate 18 /min No Primary Care Physician [facility] 05-20-2022 10:27-0500 SaO2% (BldA) [Mass fraction] 97 % No Primary Care Physician [facility] 05-20-2022 10:27-0500 Systolic blood pressure 128 mm[Hg] No Primary Care Physician [facility] Encounters Encounter Date Encounter Type Care Provider Facility Start: 10-08-2024 ambulatory [facility] Start: 10-08-2024 End: 10-09-2024 Evaluation and management of inpatient Dr. Meet Puckett [facility] Work Phone: Start: 10-08-2024 ambulatory [facility] Start: 10-08-2024 Evaluation and management of inpatient Dr. Uma Smith [facility] Work Phone: Start: 10-08-2024 Non-patient / Non-visit Dr. Uma Smith [facility] Work Phone: Start: 10-08-[address] Teri Barnes MD Work Phone: [facility] Work Phone: Start: 07-23-2024 Non-patient / Non-visit Dr. Rosey Daly MD -[facility] Work Phone: Start: 07-22-2024 ambulatory Lisa Jon ty:[facility] Start: 07-22-2024 End: 07-23-2024 Evaluation and management of [facility]: Start: 07-06-2024 ambulatory Lisa Jon ty:[facility] Start: 07-06-2024 End: 07-06-2024 Evaluation and management of inpatient [facility] Work [facility]: Start: 06-11-2024 End: 06-11-2024 Emergency department patient visit Dr. Douglas Cruz DO -Emergency Department Work Phone: Start: 05-10-2024 End: 05-10-2024 ambulatory LAUREN CUEVAS Facility:[id number] Start: 04-28-2024 ambulatory [facility] Facility :[facility] Start: 03-29-2024 End: 03-29-[address] Lexi Barnes MD Work Phone: -Laboratory Work Phone: Start: 03-29-2024 End: 03-29-2024 ambulatory Lexi Molly Facility:[facility] Start: 02-16-2024 End: 02-16-2024 ambulatory DANY PAINTER Facility:[facility] Start: 02-16-2024 End: 02-16-2024 Patient encounter procedure Dany Painter MD Work Phone: General Surgery Comment on above: Non-recurrent bilate ral inguinal hernia without obstruction or gangrene (Primary Dx) Start: 02-03-2024 End: 02-03-2024 Emergency department patient visit [facility] Facility:[facility] Start: 10-25-2023 End: 10-25-2023 Emergency department patient visit [facility]NE [facility] Start: 06-16-2023 End: 06-26-2023 ambulatory [facility] Work Phone: Start: 06-16-2023 End: 06-26-2023 Discharged Recurring [facility] Work Phone: Start: 04-07-2023 End: 04-07-2023 Emergency department patient visit [facility] Work Phone: Start: 03-10-2023 End: 03-27-2023 ambulatory [facility] Work Phone: Start: 03-10-2023 End: 03-27-2023 Discharged Recurring [facility] Work Phone: Start: 09-18-2022 End: 09-18-2022 ambulatory [facility] Work Phone: Start: 09-18-2022 End: 09-18-2022 Discharged Recurring [facility] Start: 07-31-2022 End: 08-25-2022 Discharged Recurring [facility] Start: 07-17-2022 End: 07-26-2022 ambulatory No Primary Care Physician [facility] Work Phone: Start: 07-17-2022 End: 07-26-2022 Discharged Recurring No Primary Care Physician [facility] Start: 06-20-2022 End: 06-20-2022 ambulatory No Primary Care Physician [facility] Work Phone: Start: 06-20-2022 End: 06-20-2022 Discharged Recurring No Primary Care Physician [facility] Start: 05-30-2022 End: 05-30-2022 Patient encounter procedure No Primary Care Physician [facility] Start: 05-20-2022 End: 05-20-2022 Patient encounter procedure No Primary Care Physician [facility] Internal Medicine Procedures Date Procedure Procedure Detail Performing Clinician Start: 10-08-[address] Lexi Barnes MD Work Phone: Start: 10-08-[address] Lexi Barnes MD Work Phone: Start: 10-08-[address] Lexi Barnes MD Work Phone: Start: 10-08-2024 Serum inorganic phosphate measurement Dr. Lexi Barnes MD Work Phone: Start: 10-08-2024 Carbon dioxide measurement, partial pressure Dr. Lexi Barnes MD Work Phone: Start: 10-08-2024 Gases blood o2 saturation only direct ginny Dr. Lexi Barnes MD Work Phone: Start: 10-08-2024 Measurement of parti al pressure of oxygen in blood Dr. Lexi Barnes MD Work Phone: Start: 10-08-2024 X-ray of chest, PA a nd lateral views Dr. Lexi Barnes MD Work Phone: Start: 10-08-[address] Lexi Barnes MD Work Phone: Start: 07-23-[address] Lexi Barnes MD Work Phone: Start: 07-23-2024 Serum inorganic phosphate measurement Dr. Lexi Barnes MD Work Phone: Start: 07-22-[address] Lexi Barnes MD Work Phone: Start: 07-22-2024 SARS-CoV-2, Influenz a & RSV (PCR) Dr. Lexi Barnes MD Work Phone: Start: 07-22-2024 Carbon dioxide measurement, partial pressure Dr. Lexi Barnes MD Work Phone: Start: 07-22-2024 Gases blood o2 saturation only direct ginny Dr. Lexi Barnes MD Work Phone: Start: 07-22-2024 Measurement of parti al pressure of oxygen in blood Dr. Lexi Barnes MD Work Phone: Start: 07-22-[address] Lexi Barnes MD Work Phone: Start: 07-22-2024 Plain chest X-ray Dr. Carlos Barnes MD Work Phone: Start: 07-06-[address] Lexi Barnes MD Work Phone: Start: 07-06-2024 Serum inorganic phosphate measurement Dr. Lexi Barnes MD Work Phone: Start: 07-06-[address] Lexi Barnes MD Work Phone: Start: 07-05-2024 X-ray of chest, PA a nd lateral views Dr. Lexi Barnes MD Work Phone: Start: 07-05-2024 SARS-CoV-2, Influenz a & RSV (PCR) Dr. Lexi Barnes MD Work Phone: Start: 06-11-2024 X-ray of chest, PA a nd lateral views Dr. Lexi Barnes MD Work Phone: Start: 06-11-[address] Lexi Barnes MD Work Phone: Start: 06-11-2024 Measurement of renal function Dr. Lexi Barnes MD Work Phone: Comment on above: GFR Calc Start: 06-11-2024 SARS-CoV-2, Influenz a & RSV [...] liver recipient Liver trans plant recipient Dr. Uma Smith DO H/O: liver recipient Liver trans plant recipient Dr. Meet Puckett DO Plan of Treatment Date Care Activity Detail Author Start: 10-30-2026 Lipid panel Lipid Screening [facility] Start: 10-09-2024 Patient discharge [facility] Start: 10-08-2024 Admission procedure [facility] Start: 10-08-2024 SARS-CoV-2 Antigen (Rapid) SARS-CoV-2 Antigen (Rapid) [facility] Start: 10-08-2024 Ambulation without limitation [facility] Start: 10-08-2024 Assessment of risk of venous thromboembolism [facility] Start: 10-08-2024 Catheterization of vein [facility] Start: 10-08-2024 Incentive spirometry [facility] Start: 10-08-2024 Insertion of catheter into peripheral vein [facility] Start: 10-08-2024 Oxygen therapy [facility] Start: 10-08-2024 Physiotherapy of chest [facility] Start: 10-08-2024 Providing care according to standard [facility] Start: 10-08-2024 [facility] Start: 10-08-2024 Following clinical pathway protocol [facility] Start: 10-08-2024 Verification routine [facility] Start: 10-08-2024 Hospital admission, emergency, from emergency room, medical nature [facility] Start: 10-08-2024 Admission procedure [facility] Start: 10-08-2024 Respiratory pathogens DNA and RNA panel - Respiratory specimen by DANA with probe detection [facility] Start: 10-08-2024 Taking nasal swab [facility] Start: 10-08-2024 [facility] Start: 07-23-2024 Patient discharge [facility] Start: 07-22-2024 Gas panel - Arterial blood [facility] Start: 07-22-2024 Following clinical pathway protocol [facility] Start: 07-22-2024 Assessment of risk of venous thromboembolism [facility] Start: 07-22-2024 Insertion of catheter into peripheral vein [facility] Start: 07-22-2024 Measuring intake and output [facility] Start: 07-22-2024 Oxygen therapy [facility] Start: 07-22-2024 Providing care according to standard [facility] Start: 07-22-2024 Provision of activity privileges [facility] Start: 07-22-2024 Referral to service [facility] Start: 07-22-2024 Respiratory pathogens DNA and RNA panel - Respiratory specimen by DANA with probe detection [facility] Start: 07-22-2024 Verification routine [facility] Start: 07-22-2024 Admission procedure [facility] Start: 07-22-2024 End: 07-22-2024 [facility] Start: 07-22-2024 Hospital admission, emergency, from emergency room, medical nature [facility] Start: 07-22-2024 Continuous pulse oximetry [facility] Start: 07-22-2024 Dual pressure spontaneous ventilation support [facility] Start: 07-22-2024 End: 07-22-2024 [facility] Start: 07-22-2024 Inhalation therapy procedure [facility] Start: 07-06-2024 Patient discharge [facility] Start: 07-06-2024 Oxygen therapy [facility] Start: 07-06-2024 End: 07-06-2024 [facility] Start: 07-06-2024 Following clinical pathway protocol [facility] Start: 07-06-2024 Assessment of risk of venous thromboembolism [facility] Start: 07-06-2024 Incentive spirometry [facility] Start: 07-06-2024 Inhalation therapy procedure [facility] Start: 07-06-2024 Insertion of catheter into peripheral vein [facility] Start: 07-06-2024 Measuring intake and output [facility] Start: 07-06-2024 Providing care according to standard [facility] Start: 07-06-2024 Provision of activity privileges [facility] Start: 07-06-2024 Referral to service [facility] Start: 07-06-2024 Gas panel - Venous blood [facility] Start: 07-06-2024 Hospital admission, emergency, from emergency room, medical nature [facility] Start: 07-06-2024 Verification routine [facility] Start: 07-06-2024 Admission procedure [facility] Start: 06-11-2024 [facility] Start: 06-11-2024 [facility] Start: 12-28-2023 Covid-19 Vaccine ( season) Covid-19 Vaccine ( season) [facility] Start: 12-28-2023 Influenza vaccination Influenza Vaccine (#1) [facility] Start: 04-07-2023 [facility] Start: 05-05-2022 Hepatitis B Vaccine (3 of 3 - 19+ 3-dose series) Hepatitis B Vaccine (3 of 3 - 19+ 3-dose series) [facility] Start: 02-07-1999 Shingrix Vaccine (1 of 2) Shingrix Vaccine (1 of 2) [facility] Start: 02-07-1999 Urine microalbumin profile DTaP,Tdap,Td Vaccine (1 - Tdap) [facility] Start: 02-07-1998 Annual PCP Team Chronic Disease Visit Annual PCP Team Chronic Disease Visit [facility] Start: 02-07-1998 BP Controlled (<130/80) BP Controlled (<130/80) [facility] Start: 02-07-1998 HIV screening HIV Screening [facility] Start: 02-07-1998 Spirometry Spirometry [facility] Start: 02-07-1986 Pneumococcal vaccination Pneumococcal Vaccine (1 of 2 - PCV) [facility] Magnesium measurement [facility] Patient Education [facility] Work Phone: Patient referral [facility] Work Phone: SARS-CoV-2 (COVID-19 ) Ag [Presence] in Respiratory specimen by Rapid immunoassay [facility] Tacrolimus [Mass/vol ume] in Blood [facility] Tacrolimus [Mass/vol ume] in Blood [facility] Troponin T.cardiac [Mass/volume] in Serum or Plasma by High sensitivity method [facility] Troponin T.cardiac [Mass/volume] in Serum or Plasma by High sensitivity method [facility] Immunizations Immunization Date Immunization Notes Care Provider Fa cory 07-06-2024 influenza, seasonal, injectable, preservative free Dr. Lexi Barnes MD Work Phone: [facility] 12-29-2020 Covid (Pfizer) No Primary Ca re Physician [facility] 11-28-2020 Covid (Pfizer) No Primary Ca re Physician [facility] 02-07-2020 influenza, injectabl e, quadrivalent, preservative free [facility] 02-07-2020 influenza, seasonal, injectable No Primary Care Physician [facility] 02-07-2020 influenza, seasonal, injectable, preservative free Dr. Lexi Barnes MD Work Phone: [facility] 02-07-2020 influenza virus vaccine, unspecified formulation Dany Painter MD Work Phone: [facility] 07-19-2014 influenza, seasonal, injectable, preservative free Dr. Lexi Barnes MD Work Phone: [facility] 02-26-2013 Influenza virus vaccine No [facility] Care Physician [facility] 07-27-2012 pneumococcal vaccine , unspecified formulation No Primary Care Physician [facility] 02-27-2008 influenza virus vaccine, unspecified formulation Dany Painter MD Work Phone: [facility] Payers Date Payer Category Payer Unknown [id number] 2024 Unknown 0 2023 Self-pay [id number] 2022 Unknown [employer] [id number] 2022-Present [phone] [address] [place] [address] Indemnity [id number] 2022 Unknown [id number] 2021 Medicaid MEDICAID OOS GEN [place] MEDICAID OOS GENERIC [id number] 2021-Present [phone] [address] [place] [address] Medicaid [id number] 2021 Unknown [id number] 2016 Unknown ELISABET [id number] 1980 Unknown [id number] Unknown [id number] Unknown [id number] Unknown [id number] Unknown [id number] Unknown [id number] Unknown [id number] Unknown [id number] Unknown [id number] Unknown [id number] Unknown [id number] Unknown [id number] Unknown [id number] Social History Date Type Detail Facility Start: 05-20-2022 End: 04-07-2023 Tobacco smoking status NEIS Unknown if ever smoked [facility] Start: 02-06-2020 None [facility] Start: 05-24-2020 Spouse/ Signif icant Other [facility] Start: 08-10-2020 Non-smoker [facility] Start: 1980 Sex Assigned At Male [facility] Tobacco smoking status No Smokin g Status Entered [facility] Start: 06-19-2015 End: 10-08-2024 Tobacco smoking status NHIS Never smoked tobacco [facility] Start: 06-19-2015 Tobacco use and exposure Smokeless tobacco non-user [facility] Start: 02-16-2024 Alcoholic beverage intake Ex-drinker (finding) [facility] Start: 04-02-2020 End: 02-16-2024 History of Social function [facility] Start: 04-02-2020 End: 02-16-2024 Tobacco use panel [facility] National Score (1-100), lower number is lower risk Not on file [facility] Start: 02-13-2024 Alcohol Comment 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, 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 [facility] Start: 1980 Sex assigned at Not on file [facility] Start: 07-06-2024 End: 07-23-2024 Sex Male (finding) [facility] Goals Date Patient Goal Desired Activity /State Functional Status Date Assessment Result Facility 10-09-2024 Functional status Ambulates [facility] Work Phone: 07-23-2024 Functional status Up ad ysabel [facility] Work Phone: 07-06-2024 Functional status Up ad ysabel;Bathroom Priv ilege [facility] Work Phone: 07-06-2024 Functional status Tolerates Activity Well [facility] Work Phone: 10-25-2023 Functional Status Independent [facility] 10-25-2023 Functional Status Standard Safet y ID band on, Call device within reach, Bed in low position, Wheels locked, Upper/Half-Length side-rails up, Phone within reach, personal items within reach, Bedside Cart Locked, Visitor at bedside [facility] Mental Status Date Assessment Result Facility 10-09-2024 Cognitive function Voice/Name [facility] Work Phone: 07-22-2024 Cognitive function Voice/Name [facility] Work Phone: 07-06-2024 Cognitive function Voice/Name [facility] Work Phone: 10-25-2023 Mental Status Orientation Oriented x 4 [facility] 10-25-2023 Mental Status [facility] 04-07-2023 Cognitive function Level Of Cons ciousness Awake;Alert;Appropriate;Follow s Commands [facility] Work Phone: Clinical Notes 05-08-2021 to 10-09-2024 Note Date & Type Note Facility 10-09-2024 Discharge summary [facility] 10-09-2024 Note [facility] Medical Records Department [address] [place] [address] Discharge Summary 10/09/24 0858 MR#: [id number] Acct: [id number] Name: DANNY BEDOYA Rep #: [id number] : 1980 44 From: Meet Puckett DO PCP: Dr. Lexi Barnes MD Status:DIS IN Location: [facility] [id number] Providers Date of Admission: 10/08/24 Date of Discharge: 10/09/24 Primary Care Physician: Dr. Lexi Barnes MD Reason For Visit: HYPOXIA 2/2 ACUTE ASTHMA EXACERBATION Diagnosis Discharge Diagnosis (1) Acute exacerbation of asthma with allergic rhinitis: Status: Acute Code(s): J45.901 - Unspecified asthma with (acute) exacerbation (2) Sinus tachycardia seen on desk monitor: Status: Acute Code(s): R00.0 - Tachycardia, unspecified (3) Hypoxemia: Status: Acute Code(s): R09.02 - Hypoxemia Medications at Discharge Home Medications fluticasone 100 mcg-salmeterol 50 mcg/dose blistr powdr for inhalation 1 ea IH DAILY breathing 01/04/19 mycophenolate mofetil 500 mg tablet (CellCept) 500 mg PO BID liver transplant 05/20/22 albuterol sulfate 2.5 mg/3 mL (0.083 %) solution for nebulization 2.5 mg (3 mL) inhalation Q4H PRN #25 vials 02/03/24 tacrolimus 1 mg capsule, immediate-release 2 mg PO BID liver transplant 02/03/24 fluticasone 500 mcg-salmeterol 50 mcg/dose blistr powdr for inhalation (Advair Diskus) 1 inh inhalation BID breathing 10/08/24 montelukast 10 mg tablet 10 mg PO DINNER 30 days #30 tabs 10/09/24 prednisone 20 mg tablet 40 mg (2 x 20 mg) PO DAILY 4 days #8 tabs 10/09/24 Hospital Course Operations None Procedures EKG and - (Chest x-ray) Summary of Care Provided Minutes Spent on Discharge: 35 Hospital Course: Patient is a 44-year-old male who presented [facility] ED on 10/08/2024 with worsening shortness of breath. Short hospital course as noted below. Patient discharged home in stable condition on 10/09. 1. Acute asthma exacerbation with hypoxia, improving; history of asthma with seasonal allergies ??? History of asthma with previous exacerbations. Last exacerbation was about 3 months ago. Presented with worsening shortness of breath and required 2 L nasal cannula on admit. Infectious workup negative. Had good improvement in symptoms during hospitalization on IV steroids and scheduled DuoNebs. Will discharge on prednisone 40 mg for 4 more days to complete 5-day steroid burst. Also started montelukast for him while inpatient and will continue this on discharge. Continue other home inhalers. Did not require oxygen on discharge. Discharged in stable condition on 10/09. 2. History of liver cirrhosis secondary to alcohol abuse s/p liver transplant ??? S/p liver transplant 3 years ago. Patient reports doing well since then, no current issues. Continue home CellCept and tacrolimus. *Notably patient was admitted under inpatient status but improved more quickly than anticipated and was able to be discharged home on hospital day 2. Total clinical time spent by myself addressing the patient's medical issues, reviewing all the data, and collaborating with patient's care team: 35 minutes. Physical Exam Const alert, oriented x3, no apparent distress and average body habitus Constitutional Narrative: Pleasant middle-age male, sitting up comfortably at edge of the bed, conversing normally, in no acute distress. General Appearance: cooperative and comfortable HEENT normocephalic, head/scalp atraumatic, hearing grossly normal bilaterally, nasal mucous membranes and turbinates normal and moist oral mucous membranes Eyes PERRL, EOMs intact bilaterally and conjunctivae normal Neck full ROM Chest inspection of chest normal Resp normal respiratory effort and no use of accessory muscles Resp Narrative: Breathing comfortably in room air at rest. Good air movement throughout with no wheezing or crackles noted today. Improved from admission. Cardio regular rate, regular rhythm, no murmurs and peripheral pulses 2+ throughout GI normal to inspection, nondistended, normoactive bowel sounds, soft to palpation, non-tender and non- distended Back/Spine normal ROM Extremity normal to inspection, full ROM and no pedal edema Skin no rashes or lesions noted Psych mental status grossly normal Weight / BMI Weight Weight: 70.3 kg Body Mass Index (BMI) 27.4 ABG / Lab / Microbiology Data 10/08/24 06:12 10/08/24 06:12 Microbiology: Microbiology 10/08/24 05:30 Mucosa - Nasopharyngeal Respiratory Panel (PCR) - Final 10/08/24 04:33 Nasal Secretion SARS-CoV-2 Antigen (Rapid) - Final D/C Instructions DC O2, CPAP, BIPAP Needs Home O2 Discharge instructions: No Meaningful Use Info Meaningful Use Meaningful Use Diagnoses (Choose all that apply): None applicable Ischemic Stroke Statin Dosing Therapy Reference (more content not included)... [facility] 10-08-2024 Progress note Note Date/Time October 08, 2024 12:12pm [facility] Medical Records Department [address] [place] [address] Progress Note - Hospitalist 10/08/24 1210 MR#: [id number] Acct: [id number] Name: DANNY BEDOYA Rep #:[id number] : 1980 44 From: Meet luna DO PCP: Dr. Lexi Barnes MD Status:ADM KASSANDRA Location: [place] [address] Hospitalist Note Patient admitted early this morning for acute asthma exacerbation. I saw the patient at bedside later this morning, significant other present. Patient was breathing comfortably on 2 L nasal cannula at rest. Noted that he felt markedlyimproved currently compared to overnight. On exam he had only mildly diminishedbreath sounds and no wheezing noted. Will continue IV steroids and scheduled breathing treatments for today. Patient remains stable tomorrow, should be okayfor discharge home. Full progress note to follow tomorrow. 10/08/241211 <Electronically signed by Meet Puckett DO> Cosigner Signature (if applicable): CC: ~ Signed [facility] Work Phone: 1(680) 877-953906-13-2025 Progress note [facility] Medical Records Department [address] [place] [address] Progress Note - Hospitalist 10/08/24 1210 MR#: [id number] Acct: [id number] Name: DANNY BEDOYA Rep #:[id number] : 1980 44 From: Meet luna DO PCP: Dr. Lexi Barnes MD Status:ADM KASSANDRA Location: [place] [address] Hospitalist Note Patient admitted early this morning for acute asthma exacerbation. I saw the patient at bedside later this morning, significant other present. Patient was breathing comfortably on 2 L nasal cannula at rest. Noted that he felt markedlyimproved currently compared to overnight. On exam he had only mildly diminishedbreath sounds and no wheezing noted. Will continue IV steroids and scheduled breathingtreatments for today. Patient remains stable tomorrow, should be okayfor discharge home. Full progress note to follow tomorrow. 10/08/241211 Cosigner Signature (if applicable): CC: ~ Signed [facility]06-13-2025 History and physical note Author Uma Smith [facility] Note Date/Time October 08, 2024 4:45 am [facility] Medical Records Department [address] [place] [address] H&P Exam - Hospitalist 10/08/24 0418 MR#: [id number] Acct: [id number] Name: DANNY BEDOYA Rep #:[id number] : 1980 44 From: Uma Smith DO PCP: Dr. Lexi Barnes MD Status:ADM KASSANDRA Location: [facility] [id number] HPI - General General Date of Admission: 10/08/24 Date of Service: 10/08/24 Chief Complaint: Shortness of breath and wheezing HPI Narrative DANNY BEDOYA, is a 44 M who present to the emergency department [facility] on 10/08/2024 with shortness of breath and wheezing. Patient has a known history of environmental allergies and asthma. Patient reported he was kayaking the day prior to presentation and thought maybe that is what causedhis trouble breathing due to environmental exposures. Patient reported he been on prednisone within the last 3 months but is not currently. He denied any other respiratory tract symptoms. He said no fever or chills. He said no significant cough or production of sputum. Upon presentation he had limited ability to speak in more than 2-3 words due to respiratory distress and use of accessory muscles. He was treated with DuoNebs x 1 and IV Solu-Medrol. His respiratory distress improved however he was hypoxic on room air 88%. He was placed on 2 L nasal cannula. Unfortunately, he remained persistently hypoxic despite treatment and will require admission for further management. Vital signs at the time of presentation showed a temperature of 98.5, heart hyyb125, respiratory rate was 20 with short labored breathing that was shallow and tachypneic, blood pressure was 144/99 and pulse ox was 88% on room air at rest. CBC is unremarkable other than a significant eosinophilia at 9.2%. ABG was obtained and showed a pH of 7.43 with a PCO2 of 31.6 and a pO2 of 57 with a sat of 90% on room air. Chemistry panel was unremarkable. Chest x-ray is unremarkable. Given his hypoxia at rest we will admit as observation status with expected length of stay less than 2 midnights. 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[employer] Smoking Status: Never smoker Electronic Cigarette Use: not used alcohol intake: former details: former heavy drinker, 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 substance use type: marijuana what type of physical activity do you participate in: none do you feel safe at home: Yes ROS Constitutional Constitutional: Denies anorexia, change in weight, chills, fatigue, fever(s), malaise, night sweats, weakness or other Eyes Eyes: Denies blurry vision, change in eye color, change in vision, discharge from eye(s), double vision, erythema, eye pain, loss of vision or other ENT HEENT: Denies abnormal hearing, dysphagia, ear pain, epistaxis, headache(s), hearing loss, nasal congestion, nasal discharge, post nasal drip, sinus pressure, sore throat or other Cardiovascular Cardiovascular: Reports dyspnea on exertion; Denies chest pain, claudication, edema, lightheadedness, orthopnea, palpitations, paroxysmal nocturnal dyspnea, rapid heart rate, syncope or other Respiratory/Chest Respiratory/Chest: Reports dyspnea, shortness of breath at rest and shortness ofbreath with exertion; Denies cough, excessive phlegm production, hemoptysis, productive cough, wheezing or other Gastrointestinal Gastrointestinal: Denies abdominal pain, coffee ground emesis, constipation, diarrhea, dyspepsia, hematemesis, hematochezia, loose stools, melena, nausea, vomiting or other Genitourinary Genitourinary: Denies burning urination, difficulty urinating, dysuria, hematuria, nocturia, urinary frequency, urinary hesitancy, urinary incontinence,urinary urgency or other Musculoskeletal Musculoskeletal: Denies arthralgias, back pain, joint pain, joint stiffness, joint swelling, myalgias, neck pain or other Neurologic Neurologic: Denies abnormal gait, abnormal speech, confusion, disequilibrium, dizziness, focal weakness, headache(s), numbness, paresthesias, seizure-like activity, seizures, syncope, tingling, tremor(s) or other Psychiatric Psychiatric: Denies anxiety, depression, homicidal ideation, suicidal ideation or other Endocrine Endocrinology: Denies change in body appearance, cold intolerance, excessive sweating, heat intolerance, polydipsia, polyuria or other Hematologic/Lymphatic Hematologic/Lymphatic: Denies anemia, easy bleeding, easy bruising, lymphadenopathy or other Allergic/Immunologic Allergic/Immunologic: Denies rhinitis, hives, eczemia, asthma or other Vital Signs Vital Signs Vital Signs: 10/08/24 02:10 10/08/24 02:13 10/08/24 02:13 Temperature 98.5 F 98.5 F Temperature Source Oral Oral Pulse Rate 102 H 103 H Respiratory Rate 20 H 20 H Respiratory Effort Short of Breath Labored Respiratory Depth Shallow Respiratory Pattern Tachypnea Blood Pressure 144/99 H Blood Pressure Mean 114 Pulse Ox 92 93 Oxygen Delivery Method Room Air Room Air Room Air Oxygen Flow Rate (L/min) 10/08/24 02:15 10/08/24 02:25 10/08/24 03:15 Temperature 98.3 F Temperature Source Oral Pulse Rate 114 H 94 Respiratory Rate 18 18 Respiratory Effort Respiratory Depth Respiratory Pattern Normal Blood Pressure 135/82 H Blood Pressure Mean 99 Pulse Ox 92 91 Oxygen Delivery Method Room Air Room Air Oxygen Flow Rate (L/min) 10/08/24 03:57 10/08/24 04:00 Temperature 98.3 F Temperature Source Oral Pulse Rate 76 Respiratory Rate 18 Respiratory Effort Respiratory Depth Respiratory Pattern Blood Pressure 132/86 H Blood Pressure Mean 101 Pulse Ox 92 95 Oxygen Delivery Method Nasal Cannula Room Air Oxygen Flow Rate (L/min) 1 Weight Weight: 70.4 kg Body Mass Index (BMI) 26.6 Physical Exam Const alert, oriented x3, no apparent distress, average body habitus, healthy appearing and well nourished Constitutional Narrative: Very pleasant, middle-aged, white male, lying in bed, significant other bedside,appears comfortable, nontoxic General Appearance: cooperative HEENT normocephalic, head/scalp atraumatic, hearing grossly normal bilaterally and moist oral mucous membranes HEENT Narrative: Mallampati 2, no thrush Resp normal respiratory effort, no retractions, no use of accessory muscles and No clear to auscultation bilaterally Resp Narrative: Diffuse scattered end expiratory wheezes, no current signs of respiratory distress Auscultation: wheezes Cardio regular rate, regular rhythm, S1 normal heart sound, S2 normal heart sound, no murmurs, no rub and no gallops GI normal to inspection, nondistended, normoactive bowel sounds, soft to palpation and non-tender Extremity no clubbing, cyanosis or edema Extremity Narrative: 2+ pedal pulses Neuro oriented x3 and moves all extremities Speech: speech normal Psych affect normal Psych Narrative: Very pleasant, eye contact is good and patient interacts appropriately Results Lab / Micro Data 10/08/24 02:23 10/08/24 02:23 Labs: Laboratory Results - last 24 hr 10/08/24 02:23: WBC 6.0, RBC 5.03, Hgb 14.9, Hct 43.1, MCV 85.7, MCH 29.6, MCHC 34.6, RDW Std Deviation 40.2, RDW Coeff of Christiano 13.1, Plt Count 186, MPV 9.2, Immature Gran % (Auto) 0.500, Neut % (Auto) 55.7, Lymph % (Auto) 23.7, [place] % (Auto) 9.7, Eos % (Auto) 9.2 H, Baso % (Auto) 1.2 H, Absolute Neuts (auto) 3.3, Absolute Lymphs (auto) 1.42, Nucleated RBC % 0, Sodium 138, Potassium 3.9, Chloride 106, Carbon Dioxide 19.8 L, Anion Gap 13, BUN 22 H, Creatinine 1.10, Estim Creat Clear Calc 71.76, Est GFR (MDRD) Non-Af 85, BUN/Creatinine Ratio 19.9, Glucose 97, Calcium 9.4 ABG Data ABG results: ABG 10/08/24 03:16 Specimen Type ART Sample Site R Radial pH 7.43 Bicarbonate Actual 20.9 L Total CO2 22 Base Excess -4 L O2 Saturation 90 L ABG pCO2 31.6 L ABG pO2 57 L Aleksandar Test Positive O2 Delivery Device Room Air Vent Mode Not entered Rhythm Strip Rhythm Strip: Sinus Tach Rate: 103 Imaging Radiology Impression Chest X-Ray 10/08/24 02:50 IMPRESSION: No evidence for acute abnormality. Reading Location: [place] [address] Assessment & Plan Assessment/Plan (1) Acute exacerbation of asthma with allergic rhinitis: (2) Sinus tachycardia seen on desk monitor: (3) Hypoxemia: PLAN: Plan Acute eczema exacerbation with hypoxia - Patient requiring 2 L at rest - Check respiratory viral panel and COVID-19 - Solu-Medrol 40 every 8 - Scheduled and as needed nebulizers - Incentive spirometer - Acapella - Start Singulair - Patient would benefit from outpatient follow-up with pulmonary medicine at baseline for his asthma Asthma/seasonal allergies - Start Singulair as noted above - Hold home inhaler - Recommend outpatient follow-up with pulmonary medicine Sinus tachycardia - Secondary to the above - Should resolve with improved respiratory status History of liver cirrhosis secondary to alcohol abuse status post liver transplant - Liver transplant was in - Continue mycophenolate and tacrolimus - Outpatient follow-up as previous really commended History of angioedema - Remote History of alcoholism - Currently sober DVT prophylaxis - Low risk - Recommend early and frequent ambulation CODE STATUS Full code Charges/Coding Visit Charges Inpatient E&M: 79809 Init Hosp L2 10/08/24 7882 <Electronically signed by Uma Smith DO> Cosigner Signature (if applicable): CC: Dr. Lexi Barnes MD; Dr. Uma Smith DO~ Signed [facility] Work Phone: 1(716) 307-697906-13-2025 Discharge summary Author Drew Colmenares [facility] Note Date/Time October 08, 2024 4:21 am [facility] Medical Records Department [address] [place] [address] Emergency Department Summary 10/08/24 MR#: [id number] Acct: [id number] Name: DANNY BEDOYA Rep #:[id number] : 1980 44 From: Drew Colmenares MD PCP: Dr. Lexi Barnes MD Status:REG ER Location: ED HPI History of Present Illness Chief Complaint: Asthma Detail of Chief Complaint: Difficulty breathing with wheezing, history of asthma Informant: patient, spouse/S.O. and EMS Onset/Context/Timing Onset: Today Context: sudden Timing: Continuous Quality: Positive for Dyspnea on exertion and Wheezing; Negative for Orthopnea or PND Current Severity: Moderate Maximum Severity: Severe Worsened by: Exertion Relieved by: Nothing Associated Symptoms cough; Negative for rhinorrhea, post nasal drip, ear pain, fever, sore throat, subjective, chills, sweats, clear sputum, white sputum, yellow sputum or green sputum Chest Pain: Positive for None Narrative Narrative: Patient is a 44-year-old male. He has environmental allergies and history of asthma. He states he was kayaking yesterday. He is wondering if this may be the cause of his trouble breathing. He has been on prednisone within the last 3months. He denies upper respiratory tract infectious symptoms. He denies feveror chills. He denies night sweats. Patient's answers were limited to 2-3 wordsbecause he is in respiratory distress with use of accessory muscles and mild supraclavicular retractions. Also, patient has mild intercostal retractions. There is no history of VTE. He has no risk factors for VTE. PE Risk Factors: Negative for Cancer, OCP + Smoking + > 35, Prior DVT or PE, Recent immobilization, Recent surgery or Recent travel Prior similar symptoms: Yes (Asthma) Recent Illness/Hospitalization: Yes (Last ER visit was July 22, 2024. He was admitted at that time. ) 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 [employer] Smoking Status: Never smoker Electronic Cigarette Use: not used alcohol intake: former details: former heavy drinker, 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 substance use type: marijuana what type of physical activity do you participate in: none do you feel safe at home: Yes ROS ROS ED Constitutional Constitutional ED: Denies chills, fever(s), sweats or weight loss Eyes Eyes: Denies blurry vision or change in vision ENT ENT ED: Denies ear pain, rhinorrhea or sore throat Cardiovascular Cardiovascular: Denies chest pain, orthopnea, palpitations or paroxysmal nocturnal dyspnea Respiratory/Chest Respiratory/Chest: Reports cough, dyspnea, dyspnea on exertion and other Details: Respiratory distress with wheezing ; Denies orthopnea, paroxysmal nocturnal dyspnea or sputum Gastrointestinal Gastrointestinal: Denies abdominal pain, nausea or vomiting Musculoskeletal Musculoskeletal: Denies arthralgias or myalgias Integumentary Denies rash Neurologic Neurologic: Denies paresthesias or weakness Psychiatric Psychiatric: Reports anxiety; Denies depression Endocrine Endocrinology: Denies cold intolerance or heat intolerance Hematologic/Lymphatic Hematologic/Lymphatic: Denies easy bleeding or easy bruising EXAM Physical Exam Const Vital Signs: 10/08/24 02:10 10/08/24 02:13 10/08/24 02:13 Temperature 98.5 F 98.5 F Temperature Source Oral Oral Pulse Rate 102 H 103 H Respiratory Rate 20 H 20 H Respiratory Effort Short of Breath Labored Respiratory Depth Shallow Respiratory Pattern Tachypnea Blood Pressure 144/99 H Blood Pressure Mean 114 Pulse Ox 92 93 Oxygen Delivery Method Room Air Room Air Room Air Oxygen Flow Rate (L/min) 10/08/24 02:15 10/08/24 02:25 10/08/24 03:15 Temperature 98.3 F Temperature Source Oral Pulse Rate 114 H 94 Respiratory Rate 18 18 Respiratory Effort Respiratory Depth Respiratory Pattern Normal Blood Pressure 135/82 H Blood Pressure Mean 99 Pulse Ox 92 91 Oxygen Delivery Method Room Air Room Air Oxygen Flow Rate (L/min) 10/08/24 03:57 10/08/24 04:00 Temperature 98.3 F Temperature Source Oral Pulse Rate 76 Respiratory Rate 18 Respiratory Effort Respiratory Depth Respiratory Pattern Blood Pressure 132/86 H Blood Pressure Mean 101 Pulse Ox 92 95 Oxygen Delivery Method Nasal Cannula Room Air Oxygen Flow Rate (L/min) 1 Positive well nourished and well developed Constitutional Narrative: Patient is in respiratory distress with use of accessory muscles, supraclavicular retractions and intercostal retractions. Patient used his metered-dose inhaler as well as nebulizer. He had no improvement. He arrived by squad. He was on oxygen. EMS report is not available. His room air pulse ox is unknown. Will check pulse ox on room air and obtain ABG since he is not moving much air. General Appearance ED: well developed; Negative for NAD or pallor HEENT Reports dry mucous membranes atraumatic Mouth ED: Yes dry mucous membranes Mouth: dry mucous membranes Eyes PERRL and EOMs intact bilaterally General Eye ED: Negative for pale conjunctiva or scleral icterus Neck no lymphadenopathy, supple, no meningeal signs and no JVD Neck Narrative: Trachea is midline. There is no inspiratory expiratory stridor. Resp No clear to auscultation bilaterally Resp Narrative: Respiratory distress as previously described. Decreased air movement with increased expiratory phase. Effort and Inspection: Negative for pain with movement Auscultation: wheezes expiratory wheezes and throughout and diminished lung sounds bilateral Cardio regular rhythm, S1 normal heart sound, S2 normal heart sound and no murmurs Rate: tachycardic GI non-tender, non-distended and no masses Palpation: soft Back/Spine no CVA tenderness Extremity normal to inspection Extremity Narrative: There is no asymmetry, swelling, discoloration, leg vein distention, palpable cords or tenderness along the distribution of the deep venous system. Neuro oriented x3 and CN's II-XII intact bilaterally [place] Coma Scale: document GCS findings Spontaneous Obeys Commands Oriented 15 Sensorium / Orientation: alert Speech: speech normal Psych Mood & Affect: anxious Skin no wounds and skin turgor normal General Skin Exam: Negative for jaundice or pallor Lesions: no lesions Rashes: no rashes MDM MDM MDM Narrative Medical decision making narrative: Patient with acute exacerbation of his asthma with wheezing and respiratory distress. Since he has recently been on prednisone we will treat with 125 mg Solu-Medrol as well as DuoNeb and albuterol treatments. Chest x-ray was obtained to assess for pneumonia, pneumothorax. CBC to assess white count differential as well as H&H rule out anemia. Electrolyte panel was obtained to assess for endorgan dysfunction. Review of records indicates patient is a liverrecipient. He is on immunosuppressive meds. History & Record Review Additional record(s) reviewed:: Prior outpatient record, Prior ED visit, Prior labs and Other (Documented in the HPI narrative.) Lab Data Attestation: I reviewed the patient's lab results. Lab results narrative: CBC is remarkable for eosinophilia. This may be due to the fact that patient had environmental exposure and does have history of extrinsic asthma. Labs: Laboratory Results - last 24 hr 10/08/24 02:23 WBC 6.0 RBC 5.03 Hgb 14.9 Hct 43.1 MCV 85.7 MCH 29.6 MCHC 34.6 RDW Std Deviation 40.2 RDW Coeff of Christiano 13.1 Plt Count 186 MPV 9.2 Immature Gran % (Auto) 0.500 Neut % (Auto) 55.7 Lymph % (Auto) 23.7 [place] % (Auto) 9.7 Eos % (Auto) 9.2 H Baso % (Auto) 1.2 H Absolute Neuts (auto) 3.3 Absolute Lymphs (auto) 1.42 Nucleated RBC % 0 Sodium 138 Potassium 3.9 Chloride 106 Carbon Dioxide 19.8 L Anion Gap 13 BUN 22 H Creatinine 1.10 Estim Creat Clear Calc 71.76 Est GFR (MDRD) Non-Af 85 BUN/Creatinine Ratio 19.9 Glucose 97 Calcium 9.4 ABG Data Attestation: I personally reviewed and interpreted this ABG as follows: Interpretation: ABG reveals an increased AA gradient. I was informed by the respiratory therapist that patient had a drop in his oxygen saturation 88%. He is presentlyon 2 L saturating at 91% when I reassessed him at 0413. ABG results: ABG 10/08/24 03:16 Specimen Type ART Sample Site R Radial pH 7.43 Bicarbonate Actual 20.9 L Total CO2 22 Base Excess -4 L O2 Saturation 90 L ABG pCO2 31.6 L ABG pO2 57 L Aleksandar Test Positive O2 Delivery Device Room Air Vent Mode Not entered Radiography Chest X-Ray - ED: 2 View, Read by ED Physician (Interpreted by me at 0315.), Unchanged, Heart, Lungs (There is some hyperaeration and minimal chronic changesnoted.), Mediastinum, Bony Structures and Chronic Changes Diagnostic Testing: Clinical Impression(s) from Imaging Studies Chest X-Ray 10/08/24 02:50 IMPRESSION: No evidence for acute abnormality. Reading Location: [place] [address] Rhythm Strip Rhythm Strip: Sinus Tach Rate: 103 EKG Initial EKG: Attestation: I personally reviewed and interpreted this EKG as follows: Interpretation: Sinus Rhythm (Rate is 100. WI interval is under 60 ms. QS duration 84 ms. QT duration 246 ms. [place] is normal. Patient probably has left atrial enlargement.) Management Discussion w/another healthcare provider: Hospitalist (Case was discussed with Dr. Smith. Observation status [facility].) Treatment and Re-Evaluation :: Patient was reassessed at 0411. His respiratory rate has improved. He no longer has retractions. There is no use of accessory muscles. He has slight wheezing noted on expiration at this point. Because he is requiring 2 L of oxygen and is not normally on oxygen hospitalist was paged for admission. Discharge Plan Dx/Rx/DC Orders Clinical Impression: Asthma, extrinsic with exacerbation, Essential hypertension, Liver transplant recipient, Hypoxemia, Acute respiratory distress, Sinus tachycardia seen on desk monitor Disposition Disposition: [facility] What to do if you have Problems For any increased pain, shortness of breath, bleeding, nausea or vomiting, chestpain, or any unexpected problems, contact your Primary Care Provider. Call [facility] ([phone]) or report to the closest Emergency Room. Call 911 if necessary. 10/08/24420 <Electronically signed by Drew Colmenares MD> Cosigner Signature (if applicable): CC: Dr. Lexi Barnes MD ~ Signed [facility] Work Phone: [phone] History and physical note [facility] Medical Records Department [address] [place] [address] H&P Exam - Hospitalist 10/08/248 MR#: [id number] Acct: [id number] Name: DANNY BEDOYA Rep #:[id number] : 1980 44 From: Uma Smith DO PCP: Dr. Lexi Barnes MD Status:ADM KASSANDRA Location: [address] HPI - General General Date of Admission: 10/08/24 Date of Service: 10/08/24 Chief Complaint: Shortness of breath and wheezing HPI Narrative DANNY BEDOYA, is a 44 M who present to the emergency department [facility] on 10/08/2024 with shortness of breath and wheezing. Patient has a known history of environmental allergies and asthma. Patient reported he was kayaking the day prior to presentation and thought maybe that iswhat causedhis trouble breathing due to environmental exposures. Patient reported he been on prednisone within the last 3 months but is not currently. He denied any other respiratory tract symptoms. He said no fever or chills. He said no significant cough or production of sputum. Upon presentation he had limited ability to speak in more than 2-3 words due to respiratory distress and use of accessory muscles. He was treated with DuoNebs x 1 and IV Solu-Medrol. His respiratory distress improved however he was hypoxic on room air 88%. He was placed on 2 L nasal cannula. Unfortunately, he remained persistently hypoxic despite treatment and will require admission for further management. Vital signs at the time of presentation showed a temperature of 98.5, heart [id number], respiratory rate was 20 with short labored breathing that was shallow and tachypneic, blood pressure was 144/99 and pulse ox was 88% on room air at rest. CBC is unremarkable other than a significant eosinophilia at9.2%. ABG was obtained and showed a pH of 7.43 with a PCO2 of 31.6 and a pO2 of 57 with a sat of 90% on room air. Chemistry panel was unremarkable. Chest x-ray is unremarkable. Given his hypoxia at rest we will admit as observation status with expected length of stay less than 2 midnights. 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 [employer] Smoking 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: Never smoker Electronic Cigarette Use: not used alcohol intake: former details: former heavy drinker, 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 substance use type: marijuana what type of physical activity do you participate in: none do you feel safe at home: Yes ROS Constitutional Constitutional: Denies anorexia, change in weight, chills, fatigue, fever(s), malaise, night sweats, weakness or other Eyes Eyes: Denies blurry vision, change in eye color, change in vision, discharge from eye(s), double vision, erythema, eye pain, loss of vision or other ENT HEENT: Denies abnormal hearing, dysphagia, ear pain, epistaxis, headache(s), hearing loss, nasal congestion, nasal discharge, post nasal drip, sinus pressure, sore throat or other Cardiovascular Cardiovascular: Reports dyspnea on exertion; Denies chest pain, claudication, edema, lightheadedness, orthopnea, palpitations, paroxysmal nocturnal dyspnea, rapid heart rate, syncope or other Respiratory/Chest Respiratory/Chest: Reports dyspnea, shortness of breath at rest and shortness ofbreath with exertion; Denies cough, excessive phlegm production, hemoptysis, productive cough, wheezing or other Gastrointestinal Gastrointestinal: Denies abdominal pain, coffee ground emesis, constipation, diarrhea, dyspepsia, hematemesis, hematochezia, loose stools, melena, nausea, vomiting or other Genitourinary Genitourinary: Denies burning urination, difficulty urinating, dysuria, hematuria, nocturia, urinary frequency, urinary hesitancy, urinary incontinence,urinary urgency or other Musculoskeletal Musculoskeletal: Denies arthralgias, back pain, joint pain, joint stiffness, joint swelling, myalgias, neck pain or other Neurologic Neurologic: Denies abnormal gait, abnormal speech, confusion, disequilibrium, dizziness, focal weakness, headache(s), numbness, paresthesias, seizure-like activity, seizures, syncope, tingling, tremor(s) or other Psychiatric Psychiatric: Denies anxiety, depression, homicidal ideation, suicidal ideation or other Endocrine Endocrinology: Denies change in body appearance, cold intolerance, excessive sweating, heat intolerance, polydipsia, polyuria or other Hematologic/Lymphatic Hematologic/Lymphatic: Denies anemia, easy bleeding, easy bruising, lymphadenopathy or other Allergic/Immunologic Allergic/Immunologic: Denies rhinitis, hives, eczemia, asthma or other Vital Signs Vital Signs Vital Signs: 10/08/24 02:10 10/08/24 02:13 10/08/24 02:13 Temperature 98.5 F 98.5 F Temperature Source Oral Oral Pulse Rate 102 H 103 H Respiratory Rate 20 H 20 H Respiratory Effort Short of Breath Labored Respiratory Depth Shallow Respiratory Pattern Tachypnea Blood Pressure 144/99 H Blood Pressure Mean 114 Pulse Ox 92 93 Oxygen Delivery Method Room Air Room Air Room Air Oxygen Flow Rate (L/min) 10/08/24 02:15 10/08/24 02:25 10/08/24 03:15 Temperature 98.3 F Temperature Source Oral Pulse Rate 114 H 94 Respiratory Rate 18 18 Respiratory Effort Respiratory Depth Respiratory Pattern Normal Blood Pressure 135/82 H Blood Pressure Mean 99 Pulse Ox 92 91 Oxygen Delivery Method Room Air Room Air Oxygen Flow Rate (L/min) 10/08/24 03:57 10/08/24 04:00 Temperature 98.3 F Temperature Source Oral Pulse Rate 76 Respiratory Rate 18 Respiratory Effort Respiratory Depth Respiratory Pattern Blood Pressure 132/86 H Blood Pressure Mean 101 Pulse Ox 92 95 Oxygen Delivery Method Nasal Cannula Room Air Oxygen Flow Rate (L/min) 1 Weight Weight: 70.4 kg Body Mass Index (BMI) 26.6 Physical Exam Const alert, oriented x3, no apparent distress, average body habitus, healthy appearing and well nourished Constitutional Narrative: Very pleasant, middle-aged, white male, lying in bed, significant other bedside,appears comfortable, nontoxic General Appearance: cooperative HEENT normocephalic, head/scalp atraumatic, hearing grossly normal bilaterally and moist oral mucous membranes HEENT Narrative: Mallampati 2, no thrush Resp normal respiratory effort, no retractions, no use of accessory muscles and No clear to auscultationbilaterally Resp Narrative: Diffuse scattered end expiratory wheezes, no current signs of respiratory distress Auscultation: wheezes Cardio regular rate, regular rhythm, S1 normal heart sound, S2 normal heart sound, no murmurs, no rub and no gallops GI normal to inspection, nondistended, normoactive bowel sounds, soft to palpation and non-tender Extremity no clubbing, cyanosis or edema Extremity Narrative: 2+ pedal pulses Neuro oriented x3 and moves all extremities Speech: speech normal Psych affect normal Psych Narrative: Very pleasant, eye contact is good and patient interacts appropriately Results Lab / Micro Data 10/08/24 02:23 10/08/24 02:23 Labs: Laboratory Results - last 24 hr 10/08/24 02:23: WBC 6.0, RBC 5.03, Hgb 14.9, Hct 43.1, MCV 85.7, MCH 29.6, MCHC 34.6, RDW Std Deviation 40.2, RDW Coeff of Christiano 13.1, Plt Count 186, MPV 9.2, Immature Gran % (Auto) 0.500, Neut % (Auto) 55.7, Lymph % (Auto) 23.7, [place] % (Auto) 9.7, Eos % (Auto) 9.2 H, Baso % (Auto) 1.2 H, Absolute Neuts (auto) 3.3, Absolute Lymphs (auto) 1.42, Nucleated RBC % 0, Sodium 138, Potassium 3.9, Chloride 106, Carbon Dioxide 19.8 L, Anion Gap 13, BUN 22 H, Creatinine 1.10, Estim Creat Clear Calc 71.76, Est GFR (MDRD) Non-Af 85, BUN/Creatinine Ratio 19.9, Glucose 97, Calcium 9.4 ABG Data ABG results: ABG 10/08/24 03:16 Specimen Type ART Sample Site R Radial pH 7.43 Bicarbonate Actual 20.9 L Total CO2 22 Base Excess -4 L O2 Saturation 90 L ABG pCO2 31.6 L ABG pO2 57 L Aleksandar Test Positive O2 Delivery Device Room Air Vent Mode Not entered Rhythm Strip Rhythm Strip: Sinus Tach Rate: 103 Imaging Radiology Impression Chest X-Ray 10/08/24 02:50 IMPRESSION: No evidence for acute abnormality. Reading Location: [place] [address] Assessment & Plan Assessment/Plan (1) Acute exacerbation of asthma with allergic rhinitis: (2) Sinus tachycardia seen on desk monitor: (3) Hypoxemia: PLAN: Plan Acute eczema exacerbation with hypoxia - Patient requiring 2 L at rest - Check respiratory viral panel and COVID-19 - Solu-Medrol 40 every 8 - Scheduled and as needed nebulizers - Incentive spirometer - Acapella - Start Singulair - Patient would benefit from outpatient follow-up with pulmonary medicine at baseline for his asthma Asthma/seasonal allergies - Start Singulair as noted above - Hold home inhaler - Recommend outpatient follow-up with pulmonary medicine Sinus tachycardia - Secondary to the above - Should resolve with improved respiratory status History of liver cirrhosis secondary to alcohol abuse status post liver transplant - Liver transplant was in - Continue mycophenolate and tacrolimus - Outpatient follow-up as previous really commended History of angioedema - Remote History of alcoholism - Currently sober DVT prophylaxis - Low risk - Recommend early and frequent ambulation CODE STATUS Full code Charges/Coding Visit Charges Inpatient E&M: 47175 Init Hosp L2 10/08/24 0445 Cosigner Signature (if applicable): CC: Dr. Lexi Barnes MD; Dr. Uma Smith, DO~ Signed [facility]06-13-2025 Discharge summary [facility] Medical Records Department [address] [place] [address] Emergency Department Summary 10/08/24 MR#: [id number] Acct: [id number] Name: DANNY BEDOYA Rep #:[id number] : 1980 44 From: Drew Colmenares MD PCP: Dr. Lexi Barnes MD Status:REG ER Location: ED HPI History of Present Illness Chief Complaint: Asthma Detail of Chief Complaint: Difficulty breathing with wheezing, history of asthma Informant: patient, spouse/S.O. and EMS Onset/Context/Timing Onset: Today Context: sudden Timing: Continuous Quality: Positive for Dyspnea on exertion and Wheezing; Negative for Orthopnea or PND Current Severity: Moderate Maximum Severity: Severe Worsened by: Exertion Relieved by: Nothing Associated Symptoms cough; Negative for rhinorrhea, post nasal drip, ear pain, fever, sore throat, subjective, chills, sweats, clear sputum, white sputum, yellow sputum or green sputum Chest Pain: Positive for None Narrative Narrative: Patient is a 44-year-old male. He has environmental allergies and history of asthma. He states he was kayaking yesterday. He is wondering if this may be the cause of his trouble breathing. He has been on prednisone within the last 3months. He denies upper respiratory tract infectious symptoms. He denies feveror chills. He denies night sweats. Patient's answers were limited to 2-3 wordsbecause he is in respiratory distress with use of accessory muscles and mild supraclavicular retractions. Also,patient has mild intercostal retractions. There is no history of VTE. He has no risk factors for VTE. PE Risk Factors: Negative for Cancer, OCP + Smoking + > 35, Prior DVT or PE, Recent immobilization, Recent surgery or Recent travel Prior similar symptoms: Yes (Asthma) Recent Illness/Hospitalization: Yes (Last ER visit was July 22, 2024. He was admitted at that time. ) 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[employer] Smoking Status: Never smoker Electronic Cigarette Use: not used alcohol intake: former details: former heavy drinker, 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 substance use type: marijuana what type of physical activity do you participate in: none do you feel safe at home: Yes ROS ROS ED Constitutional Constitutional ED: Denies chills, fever(s), sweats or weight loss Eyes Eyes: Denies blurry vision or change in vision ENT ENT ED: Denies ear pain, rhinorrhea or sore throat Cardiovascular Cardiovascular: Denies chest pain, orthopnea, palpitations or paroxysmal nocturnal dyspnea Respiratory/Chest Respiratory/Chest: Reports cough, dyspnea, dyspnea on exertion and other Details: Respiratory distress with wheezing ; Denies orthopnea, paroxysmal nocturnal dyspnea or sputum Gastrointestinal Gastrointestinal: Denies abdominal pain, nausea or vomiting Musculoskeletal Musculoskeletal: Denies arthralgias or myalgias Integumentary Denies rash Neurologic Neurologic: Denies paresthesias or weakness Psychiatric Psychiatric: Reports anxiety; Denies depression Endocrine Endocrinology: Denies cold intolerance or heat intolerance Hematologic/Lymphatic Hematologic/Lymphatic: Denies easy bleeding or easy bruising EXAM Physical Exam Const Vital Signs: 10/08/24 02:10 10/08/24 02:13 10/08/24 02:13 Temperature 98.5 F 98.5 F Temperature Source Oral Oral Pulse Rate 102 H 103 H Respiratory Rate 20 H 20 H Respiratory Effort Short of Breath Labored Respiratory Depth Shallow Respiratory Pattern Tachypnea Blood Pressure 144/99 H Blood Pressure Mean 114 Pulse Ox 92 93 Oxygen Delivery Method Room Air Room Air Room Air Oxygen Flow Rate (L/min) 10/08/24 02:15 10/08/24 02:25 10/08/24 03:15 Temperature 98.3 F Temperature Source Oral Pulse Rate 114 H 94 Respiratory Rate 18 18 Respiratory Effort Respiratory Depth Respiratory Pattern Normal Blood Pressure 135/82 H Blood Pressure Mean 99 Pulse Ox 92 91 Oxygen Delivery Method Room Air Room Air Oxygen Flow Rate (L/min) 10/08/24 03:57 10/08/24 04:00 Temperature 98.3 F Temperature Source Oral Pulse Rate 76 Respiratory Rate 18 Respiratory Effort Respiratory Depth Respiratory Pattern Blood Pressure 132/86 H Blood Pressure Mean 101 Pulse Ox 92 95 Oxygen Delivery Method Nasal Cannula Room Air Oxygen Flow Rate (L/min) 1 Positive well nourished and well developed Constitutional Narrative: Patient is in respiratory distress with use of accessory muscles, supraclavicular retractions and intercostal retractions. Patient used his metered-dose inhaler as well as nebulizer. He had no improvement. He arrived by squad. He was on oxygen. EMS report is not available. His room air pulse ox is u nknown. Will check pulse ox on room air and obtain ABG since he is not moving much air. General Appearance ED: well developed; Negative for NAD or pallor HEENT Reports dry mucous membranes atraumatic Mouth ED: Yes dry mucous membranes Mouth: dry mucous membranes Eyes PERRL and EOMs intact bilaterally General Eye ED: Negative for pale conjunctiva or scleral icterus Neck no lymphadenopathy, supple, no meningeal signs and no JVD Neck Narrative: Trachea is midline. There is no inspiratory expiratory stridor. Resp No clear to auscultation bilaterally Resp Narrative: Respiratory distress as previously described. Decreased air movement with increased expiratory phase. Effort and Inspection: Negative for pain with movement Auscultation: wheezes expiratory wheezes and throughout and diminished lung sounds bilateral Cardio regular rhythm, S1 normal heart sound, S2 normal heart sound and no murmurs Rate: tachycardic GI non-tender, non-distended and no masses Palpation: soft Back/Spine no CVA tenderness Extremity normal to inspection Extremity Narrative: There is no asymmetry, swelling, discoloration, leg vein distention, palpable cords or tenderness along the distribution of the deep venous system. Neuro oriented x3 and CN's II-XII intact bilaterally [place] Coma Scale: document GCS findings Spontaneous Obeys Commands Oriented 15 Sensorium / Orientation: alert Speech: speech normal Psych Mood & Affect: anxious Skin no wounds and skin turgor normal General Skin Exam: Negative for jaundice or pallor Lesions: no lesions Rashes: no rashes MDM MDM MDM Narrative Medical decision making narrative: Patient with acute exacerbation of his asthma with wheezing and respiratory distress. Since he has recently been on prednisone we will treat with 125 mg Solu-Medrol as well as DuoNeb and albuterol treatments. Chest x-ray was obtained to assess for pneumonia, pneumothorax. CBC to assess white count differential as well as H&H rule out anemia. Electrolyte panel was obtained to assess for endorgan dysfunction. Review of records indicates patient is a liverrecipient. He is on immunosuppressive meds. History & Record Review Additional record(s) reviewed:: Prior outpatient record, Prior ED visit, Prior labs and Other (Documented in the HPI narrative.) Lab Data Attestation: I reviewed the patient's lab results. Lab results narrative: CBC is remarkable for eosinophilia. This may be due to the fact that patient had environmental exposure and does have history of extrinsic asthma. Labs: Laboratory Results - last 24 hr 10/08/24 02:23 WBC 6.0 RBC 5.03 Hgb 14.9 Hct 43.1 MCV 85.7 MCH 29.6 MCHC 34.6 RDW Std Deviation 40.2 RDW Coeff of Christiano 13.1 Plt Count 186 MPV 9.2 Immature Gran % (Auto) 0.500 Neut % (Auto) 55.7 Lymph % (Auto) 23.7 [place] % (Auto) 9.7 Eos % (Auto) 9.2 H Baso % (Auto) 1.2 H Absolute Neuts (auto) 3.3 Absolute Lymphs (auto) 1.42 Nucleated RBC % 0 Sodium 138 Potassium 3.9 Chloride 106 Carbon Dioxide 19.8 L Anion Gap 13 BUN 22 H Creatinine 1.10 Estim Creat Clear Calc 71.76 Est GFR (MDRD) Non-Af 85 BUN/Creatinine Ratio 19.9 Glucose 97 Calcium 9.4 ABG Data Attestation: I personally reviewed and interpreted this ABG as follows: Interpretation: ABG reveals an increased AA gradient. I was informed by the respiratory therapist that patient had a drop in his oxygen saturation 88%. He is presentlyon 2 L saturating at 91% when I reassessed him at 0413. ABG results: ABG 10/08/24 03:16 Specimen Type ART Sample Site R Radial pH 7.43 Bicarbonate Actual 20.9 L Total CO2 22 Base Excess -4 L O2 Saturation 90 L ABG pCO2 31.6 L ABG pO2 57 L Aleksandar Test Positive O2 Delivery Device Room Air Vent Mode Not entered Radiography Chest X-Ray - ED: 2 View, Read by ED Physician (Interpreted by me at 0315.), Unchanged, Heart, Lungs (There is some hyperaeration and minimal chronic changesnoted.), Mediastinum, Bony Structures and Chronic Changes Diagnostic Testing: Clinical Impression(s) from Imaging Studies Chest X-Ray 10/08/24 02:50 IMPRESSION: No evidence for acute abnormality. Reading Location: [place] [address] Rhythm Strip Rhythm Strip: Sinus Tach Rate: 103 EKG Initial EKG: Attestation: I personally reviewed and interpreted this EKG as follows: Interpretation: Sinus Rhythm (Rate is 100. WI interval is under 60 ms. QS duration 84 ms. QT duration 246 ms. [place] is normal. Patient probably has left atrial enlargement.) Management Discussion w/another healthcare provider: Hospitalist ([facility] Treatment and Re-Evaluation :: Patient was reassessed at 0411. His respiratory rate has improved. He no longer has retractions. There is no use of accessory muscles. He has slight wheezing noted on expiration at this point. Because he is requiring 2 L of oxygen and is not normally on oxygen hospitalist was paged for admission. Discharge Plan Dx/Rx/DC Orders Clinical Impression: Asthma, extrinsic with exacerbation, Essential hypertension, Liver transplant recipient, Hypoxemia,Acute respiratory distress, Sinus tachycardia seen on desk monitor Disposition Disposition: Acute Care Hospital [facility] What to do if you have Problems For any increased pain, shortness of breath, bleeding, nausea or vomiting, chestpain, or any unexpected problems, contact your Primary Care Provider. Call [facility] ([phone]) or report tothe closest Emergency Room. Call 911 if necessary. 10/08/24 0421 Cosigner Signature (if applicable): CC: Dr. Lexi Barnes MD ~ Signed [facility]06-13-2025 Radiology Diagnostic study note [facility] Imaging Services [address] [place] [address] Chest PA and Lateral MR#: [id number] Acct: [id number] Name: DANNY BEDOYA Rep #: [id number] : 1980 M 44 From: Christine Klipatrick MD PCP: Dr. Lexi Barnes MD Status: PRE ER Study:Chest PA and Lateral Date of Exam: 10/08/24 Exam# [id number] Ordering Dr: Veronica Colmenares MD PROCEDURE: CHEST PA AND LATERAL 10/08/2024 REASON FOR EXAM: RESPIRATORY DISTRESS WITH WHEEZING THROUGHOUT TECHNIQUE: Frontal and lateral views of the chest. COMPARISON: 07/05/2024. FINDINGS: The lungs are emphysematous. There is no demonstrated acute parenchymal abnormality. Blunting of the costophrenic angles, probably adhesions. Normal heart and pericardium. Normal mediastinum and paula. Normal visualized pulmonary arteries. Normal visualized aortic arch and descending thoracic aorta. Normal visualized thoracic spine. Normal visualized ribs, clavicles, and shoulders. There is no demonstrated abnormality of the visualized soft tissue structures ofthe upper abdomen. RAD/Chest PA and Lateral IMPRESSION: No evidence for acute abnormality. Reading [facility] CC: Dr. Lexi Barnes MD; Dr. Drew Colmenares MD ~ Rat Farmer: Signed [facility]03-28-2025 Discharge summary [facility] Medical Records Department [address] [place] [address] Discharge Summary 07/23/24 1230 MR#: [id number] Acct: [id number] Name: DANNY BEDOYA Rep #:[id number] : 1980 44 From: Andrea hickman MD PCP: Dr. Lexi Barnes MD Status:ADM [facility] Prov[facility] Date of Admission: 07/22/24 Primary Care [...] AE Asthma complicated by Respiratory Insufficiency who re- presents to [facility] ER complaining of SOB. Mr. Kae parsonrts his symptoms began approximately one day prior to admission with the sudden-onset of SOB andwheezing that progressively worsened throughout the day. 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 He also [...] insufficiency secondary to an acute exacerbation of asthma?[id number] with a history of a liver transplant [...] states he does not have a current oracle r12 developer so we will make a referral from the inpatient standpoint. Also recommend continuation of his home inhalers and place him on a 7-day course of prednisone with outpatient follow-up with hisP. He is on antirejection medications for his [...] 89.2 H, Lymph % (Auto) 6.4 L, [place] %(Auto) 3.6, Eos % (Auto) 0.0, Baso [...] - Within 1 Week Echo Michael NP, CLEARANCE DIVER-C [Med Staff - Adv Practice Prof] - Within 1 Month Disposition Disposition (needs filled in before D/C Order can be placed): Home, Self Care Charges/Coding Visit Charges Inpatient E&M: 85408 Disch Hosp >30min 07/23/24 1255 Cosigner Signature (if applicable): CC: Dr. Lexi Barnes MD; Dr. Andrea Daly MD~ Signed [facility]03-28-2025 [facility] Medical Records Department [address] [place] [address] Discharge Summary 07/23/24 1230 MR#: [id number] Acct: [id number] Name: DANNY BEDOYA Rep #: [id number] : 1980 44 From: Andrea Daly MD PCP: Dr. Lexi Barnes MD Status:ADM IN [facility] Providers Date of Admission: 07/22/24 Primary Care [...] complicated by Respiratory Insufficiency who re-presents to [facility] ER complaining of SOB. Mr. Bedoya reports his symptoms began approximately one day prior to admission with the sudden-onset of SOB and wheezing that progressively worsened throughout the day. 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 He also [...] states he does not have a current oracle r12 developer so we will make a referral from [...] No JVD Lungs: D (more content not included)...[facility]03-28-2025 Discharge summary Author Andrea Daly [facility] Note Date/Time July 23, 2024 9:2 9am [facility] Medical Records Department [address] [place] [address] Instructions for Home/Discharge Instructions 07/23/24 0913 MR#: [id number] Acct: [id number] Name: DANNY BEDOYA Rep #:[id number] : [...] - Within 1 Week Echo Michael NP, CLEARANCE DIVER-C [Med Staff - [facility] Practice Prof] - Within 1 Month Disposition Disposition (needs filled in before D/C Order can be placed): Home, Self Care 07/23/24928<Electronically signed by Andrea Daly MD>Andrea Daly MD CC: Dr. Lexi Barnes MD; Dr. Lisa Jain, DO ~ Signed [facility] Work Phone: 1(199) 487-209203-28-2025 Discharge summary [facility] Medical Records Department [address] [place] [address] Instructions for Home/Discharge Instructions 07/23/24912 MR#: [id number] Acct: [id number] Name: DANNY BEDOYA Rep #:[id number] : [...] - Within 1 Week Echo Michael NP, CLEARANCE DIVER-C [Med Staff - [facility] Practice Prof] - Within 1 Month Disposition Disposition (needs filled in before D/C Order can be placed): Home, Self Care 07/23/24 0929Nicshirlene Daly MD CC: Dr. Lexi Barnes MD; Dr. Lisa Jain DO ~ Signed [facility]03-27-2025 History and physical note Author Lisa Wallis [facility] Note Date/Time July 22, 2024 8:1 6am [facility] Medical Records Department [address] [place] [address] [place] [address] H&P Exam - Hospitalist 07/22/240 MR#: [id number] Acct: [id number] Name: DANNY BEDOYA Rep #:[id number] : 1980 44 From: Lisa Rivas DO PCP: Dr. Lexi Barnes MD Status:ADM IN Location: MS3 AL845-3 [facility] - General General Date of Admission: 07/22/24 [...] complicated by Respiratory Insufficiency who re-presents to [facility] ER complaining of SOB. Mr. Bedoya reports his symptoms began approximately one day prior to admission with the sudden-onset of SOB and wheezing that progressively worsened throughout the day. He states his symptomsbecame worse with laying flat and he has noticed his attacked may be triggered by exposure to the oven finish cleaner used at his job. He also [...] is expected to extend beyond 2 midnights. 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 Reading Location: [facility] Assessment & Plan Assessment/Plan (1) Asthma [...] environmental toxic exposure at work to oven finish cleaner - Admit to general medical floor. Continue IV Solu-Medrol begun in ER plus scheduled and as needed nebulizers. Start doxycycline IV plus mucolytic and probiotic. Give acetaminophen prn pain or fever. Patient counseled to avoid any contact with oven finish cleaner or fumes. 2. Acute Hypoxic Respiratory [...] 55 minutes. Charges/Coding Visit Charges Inpatient E&M: 65949 Init Hosp L3 07/22/24 0816 <Electronically signed by Lisa Jain DO> Cosigner Signature (if applicable): CC: Dr. Lexi Barnes MD; Dr. Lisa Jain DO~ Signed [facility] Work Phone: 1(719) 482-380803-27-2025 History and physical note [facility] Medical Records Department [address] [place] [address] H&P Exam - Hospitalist 07/22/24 0310 MR#: [id number] Acct: [id number] Name: DANNY BEDOYA Rep #:[id number] : 1980 44 From: Lisa Rivas DO PCP: Dr. Lexi Barnes MD Status:ADM IN Location: [facility] HT258-0 HPI - General General Date of Admission: [...] complicated by Respiratory Insufficiency who re-presents to [facility] ER complaining of SOB. Mr. Bedoya reports his symptoms began approximately one day prior to admission with the sudden-onset of SOB and wheezing that progressively worsened throughout the day. He states his symptomsbecame worse with laying flat and he has noticed his attacked may be triggered by exposure to the oven finish cleaner used at his job. He also [...] is expected to extend beyond 2 midnights. 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 Reading Location: [facility] Assessment & Plan Assessment/Plan (1) Asthma [...] environmental toxic exposure at work to oven finish cleaner - Admit to general medical floor. Continue IV Solu-Medrol begun in ER plus scheduled and as needed nebulizers. Start doxycycline IV plus mucolytic and probiotic. Give acetaminophen prn pain or fever. Patient counseled to avoid any contact with oven finish cleaner or fumes. 2. Acute Hypoxic Respiratory [...] 55 minutes. Charges/Coding Visit Charges Inpatient E&M: 76439 Init Hosp L3 07/22/24 0816 Cosigner Signature (if applicable): CC: Dr. Lexi Barnes MD; Dr. Lisa Jain, DO~ Signed [facility]03-27-2025 Discharge summary Author Natalie Jeffery [facility] Note Date/Time July 22, 2024 6:0 2am [facility] Medical Records Department [address] [place] [address] Emergency Department Summary 07/22/24 MR#: [id number] Acct: [id number] Name: DANNY BEDOYA Rep #:[id number] : 1980 44 From: Natalie Hu PCP: Dr. Lexi Barnes MD Status:ADM IN 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 Reading Location: [facility] Portable 1 view chest x-ray was [...] asinus tachycardia with a rate of 104. WI interval, QRS interval, and QTc intervals were all normal. [place] was normal. There are no acute ST [...] MD [Primary Care Provider] - Print Language: Occitan Disposition Disposition: Acute Care Hospital [facility] What to do if you have Problems For any increased pain, shortness of breath, bleeding, nausea or vomiting, chestpain, or any unexpected problems, contact your Primary Care Provider. Call [facility] ([phone]) or report to the closest Emergency Room. Call 911 if necessary. 07/22/24 0602 <Electronically signed by Natalie Jeffery DO> Cosigner Signature (if applicable): CC: Dr. Lexi Barnes MD ~ Signed [facility] Work Phone: 1(933) 692-625203-27-2025 Discharge summary [facility] Medical Records Department [address] [place] [address] Emergency Department Summary 07/22/24 MR#: [id number] Acct: [id number] Name: DANNY BEDOYA Rep #:[id number] : 1980 44 From: Natalie Hu PCP: Dr. Lexi Barnes MD Status:ADM IN Location: [place] [address] HPI History of Present Illness Chief Complaint: [...] Recent immobilization, Recent surgery or Recent travel 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 Reading Location: [facility] Portable 1 view chest x-ray was [...] asinus tachycardia with a rate of 104. WI interval, QRS interval, and QTc intervals were all normal. [place] was normal. There areno acute ST or [...] MD [Primary Care Provider] - Print Language: Occitan Disposition Disposition: Acute Care Hospital [facility] What to do if you have Problems For any increased pain, shortness of breath, bleeding, nausea or vomiting, chestpain, or any unexpected problems, contact your Primary Care Provider. Call [facility] ([phone]) or report tothe closest Emergency Room. Call 911 if necessary. 07/22/24 0602 Cosigner Signature (if applicable): CC: Dr. Lexi Barnes MD ~ Signed [facility]03-27-2025 Radiology Diagnostic study note [facility] Imaging Services [address] [place], [place] [address] Chest 1 View (Portable) MR#: [id number] Acct: [id number] Name: DANNY BEDOYA Rep #: [id number] : 1980 M 44 From: Benedicto Srinivasan MD PCP: Dr. Lexi Barnes MD Status: REG ER Study:Chest 1 View (Portable) Date of Exam: 07/22/24 Exam# [id number] Ordering Dr: Natalie Jeffery DO PROCEDURE: CHEST [...] No evidence of acute disease. Reading Location: [id number] CC: Dr. Lexi Barnes MD; Dr. Natalie Jeffery, DO ~ Rat Farmer: Signed [facility]03-11-2025 Consult note [facility] Medical Records Department [address] [facility] [place] [address] Counseling Note - Pharmacy 07/06/24 1534 MR#: [id number] Acct: [id number] Name: DANNY BEDOYA Rep #:[id number] : 1980 44 From: Crow Tineo PCP: Dr. Lexi Barnes MD Status:ADM IN Y Location: [facility] PR232-4 Pharmacy [facility] has performed discharge medication reconciliation [...] 07/06/24 07/06/24 1536 r> Date _ Crow Rogers Signature (if applicable): Date CC: ~ Signed [facility]03-11-2025 Discharge summary Author Natalie Dasilva [facility] Note Date/Time July 06, 2024 11: 33am [facility] Medical Records Department [address] [place] [address] Discharge Summary 07/06/24 1113 MR#: [id number] Acct: [id number] Name: DANNY BEDOYA Rep #:[id number] : 1980 44 From: Natalie Dasilva DO PCP: Dr. Lexi Barnes MD Status:ADM IN Location: [place] [address] Providers Date of Admission: 07/06/24 Primary Care [...] % (Auto) 64.3, Lymph % (Auto) 19.5, [place] % (Auto) 7.6, Eos % (Auto) 7.1 [...] 88.8 H, Lymph % (Auto) 9.2 L, [place] %(Auto) 1.1, Eos % (Auto) 0.2, Baso [...] IMPRESSION: No acute cardiopulmonary process. [facility] D/C Instructions Discharge Diet: No restrictions DC [...] Provider] - Charges/Coding Visit Charges OBSV E&M: 72291 Observ/hosp same date L2 (greater than 30 ) 07/06/24 1133 <Electronically signed by Natalie Dasilva DO> Cosigner Signature (if applicable): CC: Dr. Lexi Barnes MD; Dr. Natalie Dasilva DO~ Signed [facility] Work Phone: 1(477) 239-876603-11-2025 Progress note Author Natalie Dasilva [facility] Note Date/Time July 06, 2024 11: 13am [facility] Medical Records Department [address] [place] [address] Progress Note - Hospitalist 07/06/24 0825 MR#: [id number] Acct: [id number] Name: DANNY BEDOYA Rep #:[id number] : 1980 44 From: Natalie Dasilva DO PCP: Dr. Lexi Barnes MD Status:ADM IN Location: [place] [address] Reason for Visit Reason for Visit: Diagnoses [...] % (Auto) 64.3, Lymph % (Auto) 19.5, [place] % (Auto) 7.6, Eos % (Auto) 7.1 [...] 88.8 H, Lymph % (Auto) 9.2 L, [place] %(Auto) 1.1, Eos % (Auto) 0.2, Baso [...] IMPRESSION: No acute cardiopulmonary process. Reading Location: [facility] Physical Exam Const alert and no apparent [...] Cosigner Signature (if applicable): CC: ~ Signed [facility] Work Phone: 1(827) 221-223103-11-2025 Discharge summary [facility] Medical Records Department [address] [place] [address] Discharge Summary 07/06/24 1113 MR#: [id number] Acct: [id number] Name: DANNY BEDOYA Rep #:[id number] : 1980 44 From: Natalie Dasilva DO PCP: Dr. Lexi Barnes MD Status:ADM IN Location: [place] 986269-1 Providers Date of Admission: 07/06/24 Primary Care [...] % (Auto) 64.3, Lymph % (Auto) 19.5, [place] % (Auto) 7.6, Eos % (Auto) 7.1 [...] 88.8 H, Lymph % (Auto) 9.2 L, [place] %(Auto) 1.1, Eos % (Auto) 0.2, Baso [...] IMPRESSION: No acute cardiopulmonary process. Reading [facility] D/C Instructions Discharge Diet: No restrictions DC [...] Provider] - Charges/Coding Visit Charges OBSV E&M: 50890 Observ/hosp same date L2 (greater than 30 ) 07/06/24 1133 Cosigner Signature (if applicable): CC: Dr. Lexi Barnes MD; Dr. Natalie Dasilva DO~ Signed [facility]03-11-2025 [facility] Medical Records Department [address] [place] [address] Discharge Summary 07/06/24 1113 MR#: [id number] Acct: [id number] Name: DANNY BEDOYA Rep #: [id number] : 1980 44 From: Natalie Dasilva DO PCP: Dr. Lexi Barnes MD Status:ADM IN [facility] Providers Date of Admission: 07/06/24 Primary Care [...] % (Auto) 64.3, Lymph % (Auto) 19.5, [place] % (Auto) 7.6, Eos % (Auto) 7.1 [...] 88.8 H, Lymph % (Auto) 9.2 L, [place] % (Auto) 1.1, Eos % (Auto) 0.2, [...] IMPRESSION: No acute cardiopulmonary process. Reading [facility] D/ Instructions Discharge Diet: No restrictions DC O2, CPAP, BIPAP Needs Home O2 Discharge instructions: No Meaningful Use Info Meaningful Use Meaningful Use Diagnoses (Choose all that apply): None applicable Ischemic Stroke Statin Dosing Therapy Reference: STATIN DOSE THERAPY REFERENCE: * Patients > 75 years receive moderate or high (more content not included)... [facility]03-11-2025 Progress note [facility] Medical Records Department [address] [place] [address] Progress Note - Hospitalist 07/06/2425 MR#: [id number] Acct: [id number] Name: DANNY BEDOYA Rep #:[id number] : 1980 44 From: Natalie Dasilva DO PCP: Dr. Lexi Barnes MD Status:ADM IN Location: [facility] DT745-8 Reason for Visit Reason for Visit: Diagnoses [...] % (Auto) 64.3, Lymph % (Auto) 19.5, [place] % (Auto) 7.6, Eos % (Auto) 7.1 [...] 88.8 H, Lymph % (Auto) 9.2 L, [place] %(Auto) 1.1, Eos % (Auto) 0.2, Baso [...] Cosigner Signature (if applicable): CC: ~ Signed [facility]03-11-2025 History and physical note Author Lisa Wallis [facility] Note Date/Time July 06, 2024 5:5 6am [facility] Medical Records Department [address] [place] [address] H&P Exam - Hospitalist 07/06/24 0218 MR#: [id number] Acct: [id number] Name: DANNY BEDOYA Rep #:[id number] : 1980 44 From: Lisa Rivas DO PCP: Dr. Lexi Barnes MD Status:ADM IN Location: [facility] WV501-3 [facility] - General General Date of Admission: 07/06/24 [...] allergy to lisinopril (angioedema), who presents to [facility] ER complaining of shortness of breath [...] is expected to extend beyond 2 midnights. 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 smoker Electronic Cigarette Use: [...] % (Auto) 64.3, Lymph % (Auto) 19.5, [place] % (Auto) 7.6, Eos % (Auto) 7.1 [...] ABG Data ABG results: RUN DATE: 07/06/24 [facility], DEPARTMENT OF LABORATORIES PAGE 1 RUN TIME: 05 Specimen Inquiry [address], [place], [address] PATIENT: DANNY BEDOYA LOC: MS3 U #: [id number] : 1980 AGE/SX: 44/M FACILITY: [facility] ROOM: [facility] RE07/06/[address]: Anita Mccarthy STATUS:ADM IN ED: 1 DIS: ~ SPEC #: [id number] MARIVEL: 07/06/24 STATUS: COMP REQ #: [id number] RECD: 07/06/[address]: Dr. Lisa Jain, [...] No acute cardiopulmonary process. Reading Location: [facility] Assessment & Plan Assessment/Plan (1) Asthma exacerbation: [...] 55 minutes. Charges/Coding Visit Charges Inpatient E&M: 64528 Init Hosp L2 07/06/24 0556 <Electronically signed by Lisa Jain DO> Cosigner Signature (if applicable): CC: Dr. Lexi Barnes MD; Dr. Lisa Jain DO~ Signed [facility] Work Phone: 1(919) 335-721803-11-2025 History and physical note [facility] Medical Records Department [address] [place] [address] H&P Exam - Hospitalist 07/06/24 0218 MR#: [id number] Acct: [id number] Name: DANNY BEDOYA Rep #:[id number] : 1980 44 From: Lisa Rivas DO PCP: Dr. Lexi Barnes MD Status:ADM IN Location: [facility] RX232-0 HPI - General General Date of Admission: 07/06/24 [...] allergy to lisinopril (angioedema), who presents to [facility] ER complaining of shortness of breath [...] is expected to extend beyond 2 midnights. 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 smoker Electronic Cigarette Use: [...] % (Auto) 64.3, Lymph % (Auto) 19.5, [place] % (Auto) 7.6, Eos % (Auto) 7.1 [...] ABG Data ABG results: RUN DATE: 07/06/24 [facility], DEPARTMENT OF LABORATORIES PAGE 1 RUN TIME: 05 Specimen Inquiry [address] [place], [address] PATIENT: DANNY BEDOYA LOC: [facility] U #: [id number] : 1980 AGE/SX: 44/M FACILITY: [facility] ROOM: [facility] RE07/06/[address]: Anita Mccarthy STATUS:ADM IN ED: 1 DIS: ~ SPEC #: [id number] MARIVEL: 07/06/24 STATUS: COMP REQ #: [id number] RECD: 07/06/[address]: Dr. Lisa Jain, [...] 55 minutes. Charges/Coding Visit Charges Inpatient E&M: 06496 Init Hosp L2 07/06/24 0556 Cosigner Signature (if applicable): CC: Dr. Lexi Barnes MD; Dr. Lisa Jain DO~ Signed [facility]03-11-2025 Discharge summary Author Jam Jiang [facility] Note Date/Time July 06, 2024 3:1 3am [facility] Medical Records Department [address] [place] [address] Emergency Department Summary 07/05/24 MR#: [id number] Acct: [id number] Name: DANNY BEDOYA Rep #:[id number] : 1980 44 From: Jam Jiang DO PCP: Dr. Lexi Barnes MD Status:ADM IN Location: [place] [address] HPI History of Present Illness Chief Complaint: [...] attacks and therefore comes in for evaluation. 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 Reading Location: [facility] Chest x-ray as interpreted by the emergency medicine physician reveals no acute infiltrate pneumothorax or pleural effusion Discharge Plan Dx/Rx/DC Orders Clinical Impression: Asthma exacerbation, Essential hypertension, History of alcohol abuse, Liver transplant recipient Disposition Disposition: Acute Care Hospital [facility] What to do if you have Problems For any increased pain, shortness of breath, bleeding, nausea or vomiting, chestpain, or any unexpected problems, contact your Primary Care Provider. Call [facility] ([phone]) or report to the closest Emergency Room. Call 911 if necessary. 07/06/24312 <Electronically signed by Jam Jiang DO> Cosigner Signature (if applicable): CC: Dr. Lexi Barnes MD ~ Signed [facility] Work Phone: 1(604) 620-252103-11-2025 Evaluation note* Diagnosis Onset Date Resolution Status Admit Date Asthma exacerbation acute July 06, 2024 2:36am Essential hypertension acute [facility] 2024 2:36am History of alcohol abuse acute July 06, 2024 2:36am Respiratory insufficiency acute July 06, 2024 2:36am Cirrhosis inactive July 06 2:36am History of liver transplant inactive July 06, 2024 2:36am [facility] Work Phone: 1(940) 646-901803-11-2025 Evaluation note* Diagnosis Onset Date Resolution Status Admit Date Asthma exacerbation acute July 06, 2024 2:36am Essential hypertension acute [facility] 2024 2:36am History of alcohol abuse acute July 06, 2024 2:36am Respiratory insufficiency acute July 06, 2024 2:36am Cirrhosis inactive July 06 2:36am History of liver transplant inactive July 06, 2024 2:36am Acute bacterial bronchitis acute July 22, 2024 3:40am Acute hypoxic respiratory failure acute July 22, 2024 3:40am Asthma exacerbation acute July 22, 2024 3:40am Essential hypertension acute [facility] 2024 3:40am History of alcohol abuse acute July 22, 2024 3:40am Hypoxia acute July 22 3:40am Liver transplant recipient acute July 22, 2024 3:40am [facility] Work Phone: 1(876) 288-874203-11-2025 Evaluation note* Diagnosis Onset Date Resolution Status Admit Date Asthma exacerbation acute July 06, 2024 2:36am Essential hypertension acute [facility] 2024 2:36am History of alcohol abuse acute July 06, 2024 2:36am Respiratory insufficiency acute July 06, 2024 2:36am Cirrhosis inactive July 06 2:36am History of liver transplant inactive July 06, 2024 2:36am Acute bacterial bronchitis acute July 22, 2024 3:40am Acute hypoxic respiratory failure [facility] July 22, 2024 3:40am Asthma exacerbation acute July 22, 2024 3:40am Essential hypertension acute [facility] 2024 3:40am History of alcohol abuse acute July 22, 2024 3:40am Hypophosphatemia acute July 222024 3:40am Hypoxia acute July 22 3:40am Liver transplant recipient acute July 22, 2024 3:40am [facility] Work Phone: 1(757) 682-351803-11-2025 Evaluation note* Diagnosis Onset Date Resolution Status Admit Date Asthma exacerbation acute July 06, 2024 2:36am Essential hypertension acute [facility] 2024 2:36am History of alcohol abuse acute July 06, 2024 2:36am Respiratory insufficiency acute July 06, 2024 2:36am Cirrhosis inactive July 06 2:36am History of liver transplant inactive July 06, 2024 2:36am Acute bacterial bronchitis acute July 22, 2024 3:40am Acute hypoxic respiratory failure [facility] [place] July 22, 2024 3:40am Essential hypertension acute [facility] 2024 3:40am History of alcohol abuse acute July 22, 2024 3:40am Hypophosphatemia acute July 222024 3:40am Liver transplant recipient acute July 22, 2024 3:40am Asthma exacerbation resolved July 22, 2024 3:40am Hypoxia resolved July 22 3:40am Acute exacerbation of asthma with allergic rhinitis acute October 08 4:19am Acute respiratory distress acute October 08, 2024 4:19am Asthma, extrinsic with exacerbation acute October 08, 2024 4:19am Essential hypertension acute 2024 4:19am Hypoxemia acute October 08 4:19am Liver transplant recipient acute October 08, 2024 4:19am Sinus tachycardia seen on ca rdiac monitor acute October 08, 2024 4:19am [facility] Work Phone: 1(363) 455-518403-11-2025 Evaluation note* Diagnosis Onset Date Resolution Status Admit Date Asthma exacerbation acute July 06, 2024 2:36am Essential hypertension acute [facility] 2024 2:36am History of alcohol abuse acute July 06, 2024 2:36am Respiratory insufficiency acute July 06, 2024 2:36am Cirrhosis inactive July 06 2:36am History of liver transplant inactive July 06, 2024 2:36am Acute bacterial bronchitis acute July 22, 2024 3:40am Acute hypoxic respiratory failure [facility] July 22, 2024 3:40am Essential hypertension acute [facility] 2024 3:40am History of alcohol abuse acute July 22, 2024 3:40am Hypophosphatemia acute July 222024 3:40am Liver transplant recipient acute July 22, 2024 3:40am Asthma exacerbation resolved July 22, 2024 3:40am Hypoxia resolved July 22 3:40am Acute exacerbation of asthma with allergic rhinitis acute October 08 3:20pm Acute respiratory distress acute October 08, 2024 3:20pm Asthma, extrinsic with exacerbation acute October 08, 2024 3:20pm Essential hypertension acute 2024 3:20pm Hypoxemia acute October 08 3:20pm Liver transplant recipient acute October 08, 2024 3:20pm Sinus tachycardia seen on ca rdiac monitor acute October 08, 2024 3:20pm [facility] Work Phone: 1(501) 151-893103-11-2025 Discharge summary [facility] Medical Records Department [address] [place] [address] Emergency Department Summary 07/05/24 MR#: [id number] Acct: [id number] Name: DANNY BEDOYA Rep #:[id number] : 1980 44 From: Jam Jiang DO PCP: Dr. Lexi Barnes MD Status:ADM IN Location: [place] [address] HPI History of Present Illness Chief Complaint: [...] and therefore comes in for evalu ation. 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 Reading Location: [facility] Chest x-ray as interpreted by the emergency medicine physician reveals no acute infiltrate pneumothorax or pleural effusion Discharge Plan Dx/Rx/DC Orders Clinical Impression: Asthma exacerbation, Essential hypertension, History of alcohol abuse, Liver transplant recipient Disposition Disposition: [facility] What to do if you have Problems For any increased pain, shortness of breath, bleeding, nausea or vomiting, chestpain, or any unexpected problems, contact your Primary Care Provider. Call [facility] ([phone]) or report tothe closest Emergency Room. Call 911 if necessary. 07/06/24312 Cosigner Signature (if applicable): CC: Dr. Lexi Barnes MD ~ Signed [facility]03-10-2025 Radiology Diagnostic study note [facility] Imaging Services [address] [place], [place] [address] Chest PA and Lateral MR#: [id number] Acct: [id number] Name: DANNY BEDOYA Rep #: [id number] : 1980 M 44 From: Shannon Chawla MD PCP: Dr. Lexi Barnes MD Status: REG ER Study:Chest PA and Lateral Date of Exam: 07/05/24 Exam# [id number] Ordering Dr: Erin Jiang DO PROCEDURE: CHEST PA AND LATERAL REASON FOR EXAM: DYSPNEA TECHNIQUE: Frontal and lateral views of the chest. COMPARISON: 06/11/2024 FINDINGS: The cardiothymic contour is normal. The lungs are clear. The bones are unremarkable. RAD/Chest PA and Lateral IMPRESSION: No acute cardiopulmonary process. Reading Location: [facility] CC: Dr. Lexi Barnes MD; Jam Jiang DO ~ Rat Farmer: Signed [facility]03-10-2025 Discharge summary Author Jam Jiang [facility] Note Date/Time July 06, 2024 3:1 3am [facility] Medical Records Department [address] [place] [address] Emergency Department Summary 07/05/24 MR#: [id number] Acct: [id number] Name: DANNY BEDOYA Rep #:[id number] : 1980 44 From: Jam Jiang DO PCP: Dr. Lexi Barnes MD Status:ADM IN Location: [place] 986269-1 HPI History of Present Illness Chief Complaint: [...] attacks and therefore comes in for evaluation. 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 Reading Location: [facility] Chest x-ray as interpreted by the emergency medicine physician reveals no acute infiltrate pneumothorax or pleural effusion Discharge Plan Dx/Rx/DC Orders Clinical Impression: Asthma exacerbation, Essential hypertension, History of alcohol abuse, Liver transplant recipient Disposition Disposition: [facility] What to do if you have Problems For any increased pain, shortness of breath, bleeding, nausea or vomiting, chestpain, or any unexpected problems, contact your Primary Care Provider. Call [facility] ([phone]) or report to the closest Emergency Room. Call 911 if necessary. 07/06/24 0313 <Electronically signed by Jam Jiang DO> Cosigner Signature (if applicable): CC: Dr. Lexi Barnes MD ~ Signed [facility] Work Phone: 1(162) 467-172110-22-2024 NoteHNO ID: [id number] Author: DANY PAINTER MD Service: ? Author [...] oriented to time, quita (more content not included)...[facility]10-22-2024 History of Present illness Narrative* Dany [...] entered by the nurse and reviewed by ut Nursing Notes: Lona Partida RN 02/16/2024 4:06 [...] C (98.4 F), height 162.6 cm (5' 4), weight 69.5 kg (153 lb 3.2 oz), [...] interest. I will refer him up to [facility] [place] Diagnoses: (K40.20) Non-recurrent bilateral inguinal hernia without obstruction or gangrene (primary encounter diagnosis) Dany Painter III, MD [facility] Note* Lona Partida RN - [...] N/A Last Colonoscopy: none Lona Partida RN [facility]10-21-2024 Nurse Note* Lona Partida RN - [...] none Lona Partida RN [facility] Hospital Discharge instructions Patient Education 10/25/2023 [...] Lips or fingernails turning licea or blue 7280-2032 [employer]. [address] [place] [address]. All rights reserved. This information is not intended as a substitute for professional medical care. Always follow yourhealthcare professional's instructions. Follow Up Care 10/25/2023 20:27:18 With:Go to emergency room if symptoms worsen Address:Unknown When:2-4 days With:Call Physician Referral Address:Unknown When:2-4 days [facility] 06-29-2024 Note Discharge Instructions Thank you for allowing [facility] to assist you with your healthcare needs. [...] Lips or fingernails turning licea or blue 6639-9220 [employer]. [address] [place] [address], [place] [address]. All rights reserved. This information is not intended as a substitute for professional medical care. Always follow yourhealthcare professional's instructions. Additional Information VACCINATE! IT SAVES LIVES! Members of the community who have not yet received the COVID-19 vaccine and would like to receive it can visit one of [facility] vaccine clinics. There are many vaccine clinic locations within the [facility]. For locations and available times, please visit [email or web address]/. It is important to note that some COVID mobile vaccine clinics are held outdoors and may be canceled in rainy or stormy conditions. To learn more about pediatric vaccinations (ages 5-11), we invite you to visit the [facility] webpage. [email or web address]/[email or web address]-[email or web address]-[email or web address] stions.htmlTo learn more about the COVID-19 vaccine, we invite you to visit the CDC website for a list of frequently asked questions. https://www.cdc.gov/coronavirus/2019-ncov/vaccines/faq.html [facility] Patient Portal Access Instructions: Stay connected with your healthcare team and access your personal medical information anytime with the [facility] Patient Portal. If you would like a full copy of your medical records please contact the [facility] Medical Records Department Friday through Friday between 8a.m. and 4:30p.m. Please follow the directions below to access the portal: 1.Access the email account you provided upon registration to the hospital.2.Look for an invitation email from [facility].3.Open the email and access the invitation link: Accept Invitation to [facility]4.Fill in the required newsome to create your account. Sign into [email or web address] with your username and password that you [...] you will allow to register on the [facility] Patient Portal for access to your information. You can also access the [facility] Patient Portal on the [employer] citlali. Simply click on Health Records under [email or web address] and then click on the [employer] logo. HOW TO SAFELY DISPOSE OF PRESCRIPTION [...] Call your local pharmacy or go to [email or web address] to find one close to you.3.Make use of household items: Use cat litter or old coffee grounds to dispose medications if other options arenot available. Mix your drugs with these household products, seal them in an airtight container andthrow it into the garbage. Call [facility]: [phone] to be sure your drugs can be [...] aware that I should contact my doctor. 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/Digital Marketing Officer Signature: Date/Time: Relationship to Patient: Witness Name/Signature: Date/Time: [facility]06-29-2024 NoteSinus rhythm Probable left atrial enlargement Electronic Signature: RODRIYVONNE 10/25/2023 22:22:35[facility] 06-29-2024 Note ORIGINAL EXAMINATION: ONE XRAY VIEW [...] Sign Date: 10/25/2023 10:36:24 PM Ordering Provider: [facility]12-11-2023 Discharge summary Author Justin Pinto [facility] April 07, 2023 4:08pm Note Date/Time April 07, 2023 4:08pm [facility] Medical Records Department [address] [place] [address] Emergency Department Summary 04/07/23 MR#: [id number] Acct: [id number] Name: DANNY BEDOYA Rep #:[id number] : [...] he is not getting a distended abdomen. 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 I will get him referred to [facility] surgeon but even this individual may send him to [facility]. He can also go back to [place] where his transplant was done a couple [...] your Primary Care Provider. Call [facility] ([phone]) or report to the closest Emergency Room. Call 911 if necessary. 04/07/23 1608 <Electronically signed by Justin Pinto MD> Cosigner Signature (if applicable): CC: Dr. Lexi Barnes MD ~ Signed [facility] Work Phone: 1(412) 940-500301-11-2022 NoteHospitalist Discharge Summary Danny Bedoya : 1980 [...] Clinically doing ok Discharge planning, home with [facility] Condition stable. ADULT DIET; Regular; Low Sodium (2 gm); 1500 ml ADULT ORAL NUTRITION SUPPLEMENT; Lunch, Dinner; Fortified Pudding Oral Supplement Vitals: BP 102/64 Pulse 97 Temp 97.7 ?F (36.5 ?C) (Temporal) Resp 18 Ht 5' 4 (1.626 m) Wt 170 lb 12.8 oz [...] 79* 98* Recent Labs 05/06/21 0514 05/08/21 024 NA 132* 130* K 3.5 3.6 CL 99 97* CO2 27 23 BUN 13 20* CREATININE 0.77 0.80 GLUCOSE 94 97 Recent Labs 05/06/21 0514 05/08/21 024 AST 129* 117* ALT 42 48 BILITOT 26.2* 27.5* ALKPHOS 345* 307* No results found for: TRIG, HDL, LDLCALC, CHOL No results found for: PHART, PO2ART, WAF8MXJ Recent Labs 05/06/21 0514 05/07/21 0453 05/08/21 024 INR 1.6* 1.8* 1.7* No results for input(s): DDIMER in the last 72 hours. No components found for: HGBA1C Lab Results Component Value Date TSH 0.803 05/06/2021 Urine Culture: No results found for this or any previous visit. Significant Diagnostic Studies: XR CHEST PORTABLE Result Date: 05/01/2021 Patient Name: DANNY BEDOYA Diagnostic Radiology ACCESSION EXAM DATE/TIME PROCEDURE ORDERING PROVIDER [id number] 05/01/2021 19:32 EST CR Chest Portable 209310 ALESSIO MOTLEY CPT code 38368 Reason For Exam (CR Chest Portable) dyspnea [...] BEDOYA Ultrasound ACCESSION (more content not included)... [facility] Author Crow Tineo [facility] Note Date/Time July 06, 2024 3:3 6pm [facility] Medical Records Department [address] [place] [address] Counseling Note - Pharmacy 07/06/24 1534 MR#: [id number] Acct: [id number] Name: DANNY BEDOYA Rep #:[id number] : 1980 44 From: Crow Tineo PCP: Dr. Lexi Barnes MD Status:ADM IN Y Location: [facility] BA447-2 Pharmacy [facility] has performed discharge medication reconciliation [...] PO DAILY #10 tabs 07/06/24 07/06/24 1536 <Electronically signed by Crow wilkinson> Date _ Crow Metzignoliverio Signature (if applicable): Date _ CC: ~ Signed [facility] Work Phone: Discharge summary Author Andrea Daly [facility] Note Date/Time July 23, 2024 12: 55pm [facility] Medical Records Department [address] [place] [address] Discharge Summary 07/23/24 1230 MR#: [id number] Acct: [id number] Name: DANNY BEDOYA Rep #:[id number] : 1980 44 From: Andrea hickman MD PCP: Dr. Lexi Barnes MD Status:ADM IN Location: [place] [address] Providers Date of Admission: 07/22/24 Primary Care [...] complicated by Respiratory Insufficiency who re-presents to [facility] ER complaining of SOB. Mr. Bedoya reports his symptoms began approximately one day prior to admission with the sudden-onset of SOB and wheezing that progressively worsened throughout the day. 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 He also [...] states he does not have a current oracle r12 developer so we will make a referral from [...] 89.2 H, Lymph % (Auto) 6.4 L, [place] %(Auto) 3.6, Eos % (Auto) 0.0, Baso [...] Care Provider] - Within 1 Week Echo iMchael NP, CLEARANCE DIVER-C [Med Staff - Adv Practice Prof] - Within 1 Month Disposition Disposition (needs filled in before D/C Order can be placed): Home, Self Care Charges/Coding Visit Charges Inpatient E&M: 72845 Disch Hosp >30min 07/23/24 1255 <Electronically signed by Andrea Daly MD> Cosigner Signature (if applicable): CC: Dr. Lexi Barnes MD; Dr. Andrea Daly MD~ Signed [facility] Work Phone: Discharge summary Author Drew Colmenares [facility] Note Date/Time October 08, 2024 4:21 am [facility] Medical Records Department [address] [place] [address] Emergency Department Summary 10/08/24 MR#: [id number] Acct: [id number] Name: DANNY BEDOYA Rep #:[id number] : 1980 44 From: Drew Colmenares MD PCP: Dr. Lexi Barnes MD Status:REG ER Location: ED HPI History of Present Illness Chief Complaint: Asthma Detail of Chief Complaint: Difficulty breathing with wheezing, history of asthma Informant: patient, spouse/S.O. and EMS Onset/Context/Timing Onset: Today Context: sudden Timing: Continuous Quality: Positive for Dyspnea on exertion and Wheezing; Negative for Orthopnea or PND Current Severity: Moderate Maximum Severity: Severe Worsened by: Exertion Relieved by: Nothing Associated Symptoms cough; Negative for rhinorrhea, post nasal drip, ear pain, fever, sore throat, subjective, chills, sweats, clear sputum, white sputum, yellow sputum or green sputum Chest Pain: Positive for None Narrative Narrative: Patient is a 44-year-old male. He has environmental allergies and history of asthma. He states he was kayaking yesterday. He is wondering if this may be the cause of his trouble breathing. He has been on prednisone within the last 3months. He denies upper respiratory tract infectious symptoms. He denies feveror chills. He denies night sweats. Patient's answers were limited to 2-3 wordsbecause he is in respiratory distress with use of accessory muscles and mild supraclavicular retractions. Also, patient has mild intercostal retractions. There is no history of VTE. He has no risk factors for VTE. PE Risk Factors: Negative for Cancer, OCP + Smoking + > 35, Prior DVT or PE, Recent immobilization, Recent surgery or Recent travel Prior similar symptoms: Yes (Asthma) Recent Illness/Hospitalization: Yes (Last ER visit was July 22, 2024. He was admitted at that time. ) 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[employer] Smoking Status: Never smoker Electronic Cigarette Use: not used alcohol intake: former details: former heavy drinker, 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 substance use type: marijuana what type of physical activity do you participate in: none do you feel safe at home: Yes ROS ROS ED Constitutional Constitutional ED: Denies chills, fever(s), sweats or weight loss Eyes Eyes: Denies blurry vision or change in vision ENT ENT ED: Denies ear pain, rhinorrhea or sore throat Cardiovascular Cardiovascular: Denies chest pain, orthopnea, palpitations or paroxysmal nocturnal dyspnea Respiratory/Chest Respiratory/Chest: Reports cough, dyspnea, dyspnea on exertion and other Details: Respiratory distress with wheezing ; Denies orthopnea, paroxysmal nocturnal dyspnea or sputum Gastrointestinal Gastrointestinal: Denies abdominal pain, nausea or vomiting Musculoskeletal Musculoskeletal: Denies arthralgias or myalgias Integumentary Denies rash Neurologic Neurologic: Denies paresthesias or weakness Psychiatric Psychiatric: Reports anxiety; Denies depression Endocrine Endocrinology: Denies cold intolerance or heat intolerance Hematologic/Lymphatic Hematologic/Lymphatic: Denies easy bleeding or easy bruising EXAM Physical Exam Const Vital Signs: 10/08/24 02:10 10/08/24 02:13 10/08/24 02:13 Temperature 98.5 F 98.5 F Temperature Source Oral Oral Pulse Rate 102 H 103 H Respiratory Rate 20 H 20 H Respiratory Effort Short of Breath Labored Respiratory Depth Shallow Respiratory Pattern Tachypnea Blood Pressure 144/99 H Blood Pressure Mean 114 Pulse Ox 92 93 Oxygen Delivery Method Room Air Room Air Room Air Oxygen Flow Rate (L/min) 10/08/24 02:15 10/08/24 02:25 10/08/24 03:15 Temperature 98.3 F Temperature Source Oral Pulse Rate 114 H 94 Respiratory Rate 18 18 Respiratory Effort Respiratory Depth Respiratory Pattern Normal Blood Pressure 135/82 H Blood Pressure Mean 99 Pulse Ox 92 91 Oxygen Delivery Method Room Air Room Air Oxygen Flow Rate (L/min) 10/08/24 03:57 10/08/24 04:00 Temperature 98.3 F Temperature Source Oral Pulse Rate 76 Respiratory Rate 18 Respiratory Effort Respiratory Depth Respiratory Pattern Blood Pressure 132/86 H Blood Pressure Mean 101 Pulse Ox 92 95 Oxygen Delivery Method Nasal Cannula Room Air Oxygen Flow Rate (L/min) 1 Positive well nourished and well developed Constitutional Narrative: Patient is in respiratory distress with use of accessory muscles, supraclavicular retractions and intercostal retractions. Patient used his metered-dose inhaler as well as nebulizer. He had no improvement. He arrived by squad. He was on oxygen. EMS report is not available. His room air pulse ox is unknown. Will check pulse ox on room air and obtain ABG since he is not moving much air. General Appearance ED: well developed; Negative for NAD or pallor HEENT Reports dry mucous membranes atraumatic Mouth ED: Yes dry mucous membranes Mouth: dry mucous membranes Eyes PERRL and EOMs intact bilaterally General Eye ED: Negative for pale conjunctiva or scleral icterus Neck no lymphadenopathy, supple, no meningeal signs and no JVD Neck Narrative: Trachea is midline. There is no inspiratory expiratory stridor. Resp No clear to auscultation bilaterally Resp Narrative: Respiratory distress as previously described. Decreased air movement with increased expiratory phase. Effort and Inspection: Negative for pain with movement Auscultation: wheezes expiratory wheezes and throughout and diminished lung sounds bilateral Cardio regular rhythm, S1 normal heart sound, S2 normal heart sound and no murmurs Rate: tachycardic GI non-tender, non-distended and no masses Palpation: soft Back/Spine no CVA tenderness Extremity normal to inspection Extremity Narrative: There is no asymmetry, swelling, discoloration, leg vein distention, palpable cords or tenderness along the distribution of the deep venous system. Neuro oriented x3 and CN's II-XII intact bilaterally [place] Coma Scale: document GCS findings Spontaneous Obeys Commands Oriented 15 Sensorium / Orientation: alert Speech: speech normal Psych Mood & Affect: anxious Skin no wounds and skin turgor normal General Skin Exam: Negative for jaundice or pallor Lesions: no lesions Rashes: no rashes MDM MDM MDM Narrative Medical decision making narrative: Patient with acute exacerbation of his asthma with wheezing and respiratory distress. Since he has recently been on prednisone we will treat with 125 mg Solu-Medrol as well as DuoNeb and albuterol treatments. Chest x-ray was obtained to assess for pneumonia, pneumothorax. CBC to assess white count differential as well as H&H rule out anemia. Electrolyte panel was obtained to assess for endorgan dysfunction. Review of records indicates patient is a liverrecipient. He is on immunosuppressive meds. History & Record Review Additional record(s) reviewed:: Prior outpatient record, Prior ED visit, Prior labs and Other (Documented in the HPI narrative.) Lab Data Attestation: I reviewed the patient's lab results. Lab results narrative: CBC is remarkable for eosinophilia. This may be due to the fact that patient had environmental exposure and does have history of extrinsic asthma. Labs: Laboratory Results - last 24 hr 10/08/24 02:23 WBC 6.0 RBC 5.03 Hgb 14.9 Hct 43.1 MCV 85.7 MCH 29.6 MCHC 34.6 RDW Std Deviation 40.2 RDW Coeff of Christiano 13.1 Plt Count 186 MPV 9.2 Immature Gran % (Auto) 0.500 Neut % (Auto) 55.7 Lymph % (Auto) 23.7 [place] % (Auto) 9.7 Eos % (Auto) 9.2 H Baso % (Auto) 1.2 H Absolute Neuts (auto) 3.3 Absolute Lymphs (auto) 1.42 Nucleated RBC % 0 Sodium 138 Potassium 3.9 Chloride 106 Carbon Dioxide 19.8 L Anion Gap 13 BUN 22 H Creatinine 1.10 Estim Creat Clear Calc 71.76 Est GFR (MDRD) Non-Af 85 BUN/Creatinine Ratio 19.9 Glucose 97 Calcium 9.4 ABG Data Attestation: I personally reviewed and interpreted this ABG as follows: Interpretation: ABG reveals an increased AA gradient. I was informed by the respiratory therapist that patient had a drop in his oxygen saturation 88%. He is presentlyon 2 L saturating at 91% when I reassessed him at 0413. ABG results: ABG 10/08/24 03:16 Specimen Type ART Sample Site R Radial pH 7.43 Bicarbonate Actual 20.9 L Total CO2 22 Base Excess -4 L O2 Saturation 90 L ABG pCO2 31.6 L ABG pO2 57 L Aleksandar Test Positive O2 Delivery Device Room Air Vent Mode Not entered Radiography Chest X-Ray - ED: 2 View, Read by ED Physician (Interpreted by me at 0315.), Unchanged, Heart, Lungs (There is some hyperaeration and minimal chronic changesnoted.), Mediastinum, Bony Structures and Chronic Changes Diagnostic Testing: Clinical Impression(s) from Imaging Studies Chest X-Ray 10/08/24 02:50 IMPRESSION: No evidence for acute abnormality. Reading Location: [place] [address] Rhythm Strip Rhythm Strip: Sinus Tach Rate: 103 EKG Initial EKG: Attestation: I personally reviewed and interpreted this EKG as follows: Interpretation: Sinus Rhythm (Rate is 100. WI interval is under 60 ms. QS duration 84 ms. QT duration 246 ms. [place] is normal. Patient probably has left atrial enlargement.) Management Discussion w/another healthcare provider: Hospitalist (Case was discussed with Dr. Smith. Observation status [facility].) Treatment and Re-Evaluation :: Patient was reassessed at 0411. His respiratory rate has improved. He no longer has retractions. There is no use of accessory muscles. He has slight wheezing noted on expiration at this point. Because he is requiring 2 L of oxygen and is not normally on oxygen hospitalist was paged for admission. Discharge Plan Dx/Rx/DC Orders Clinical Impression: Asthma, extrinsic with exacerbation, Essential hypertension, Liver transplant recipient, Hypoxemia, Acute respiratory distress, Sinus tachycardia seen on desk monitor Disposition Disposition: Acute Care Hospital [facility] What to do if you have Problems For any increased pain, shortness of breath, bleeding, nausea or vomiting, chestpain, or any unexpected problems, contact your Primary Care Provider. Call [facility] ([phone]) or report to the closest Emergency Room. Call 911 if necessary. 10/08/24420 <Electronically signed by Drew Colmenares MD> Cosigner Signature (if applicable): CC: Dr. Lexi Barnes MD ~ Signed [facility] Work Phone: Discharge summary Author Meet Puckett [facility] Note Date/Time October 09, 2024 9:00 am [facility] Medical Records Department [address] [place] [address] Instructions for Home/Discharge Instructions 10/09/24 0858 MR#: [id number] Acct: [id number] Name: DANNY BEDOYA Rep #:[id number] : 1980 44 From: Meet luna DO PCP: Dr. Lexi Barnes MD Status:ADM IN Discharge Instructions Diet Discharge Diet: No restrictions DC O2, CPAP, BIPAP needs Home O2 Discharge instructions: No Dressing / Incision Discharge Activity: No Restrictions Follow Up Care Test Results: Test results from this visit will be discussed in further detail at your follow- up appointment, if applicable. Discharge Plan Admission Admit Date/Time: 10/08/24 15:20 Primary Reason for Your Visit: shortness of breath Attending Provider: Meet Puckett Primary Care Provider: Lexi Barnes Consulting Providers: Uma Smith Discharge Orders/Prescriptions Prescriptions: New montelukast 10 mg Tablet 10 mg PO DINNER 30 Days Qty: 30 2RF prednisone 20 mg tablet 40 mg PO DAILY 4 Days Qty: 8 0RF Continued mycophenolate mofetil [CellCept] 500 mg tablet 500 mg PO BID fluticasone propion-salmeterol 1 EACH blister with device 1 ea IH DAILY albuterol sulfate 2.5 mg /3 mL (0.083 %) solution for nebulization 2.5 mg inhalation Q4H PRN Qty: 25 0RF Rx Instructions: Use q4 hours and PRN for wheezing tacrolimus 1 mg capsule 2 mg PO BID fluticasone propion-salmeterol [Advair Diskus] 500-50 mcg/dose blister with device 1 inh inhalation BID Referrals / Follow Up: Lexi Barnes MD [Primary Care Provider] - Disposition Disposition (needs filled in before D/C Order can be placed): Home, Self Care 10/09/24 0900<Electronically signed by Meet Puckett DO>Meet Puckett DO CC: Dr. Lexi Barnes MD; Dr. Uma Smith DO ~ Signed [facility] Work Phone: Evaluation + Plan note No data available for this section [facility] Evaluation note* Diagnosis Onset Date Resolution Status Essential hypertension acute Establishing care with new doctor, encounter for noneactive S/P liver transplant noneact sandra Moderate asthma without complication noneactive [facility] Work Phone: Evaluation noteNo assessment information available [facility] Work Phone: Evalupzzwc note* Diagnosis Non-recurrent bilateral inguinal hernia without obstruction or gangrene- [facility] Onset Date Resolution Status Admit Date Asthma exacerbation acute July 06, 2024 2:36am Essential hypertension acute [facility] 2024 2:36am History of alcohol abuse acute July 06, 2024 2:36am Respiratory insufficiency acute July 06, 2024 2:36am Cirrhosis inactive July 06 2:36am History of liver transplant inactive July 06, 2024 2:36am [facility] Work Phone: History and physical note Author Uma Smith [facility] Note Date/Time October 08, 2024 4:45 am [facility] Medical Records Department [address] [place] [id number] H&P Exam - Hospitalist 10/08/24 0418 MR#: [id number] Acct: [id number] Name: DANNY BEDOYA Rep #:[id number] : 1980 44 From: Uma Smith DO PCP: Dr. Lexi Barnes MD Status:ADM KASSANDRA Location: [facility] [id number] HPI - General General Date of Admission: 10/08/24 Date of Service: 10/08/24 Chief Complaint: Shortness of breath and wheezing HPI Narrative DANNY BEDOYA, is a 44 M who present to the emergency department [facility] on 10/08/2024 with shortness of breath and wheezing. Patient has a known history of environmental allergies and asthma. Patient reported he was kayaking the day prior to presentation and thought maybe that is what causedhis trouble breathing due to environmental exposures. Patient reported he been on prednisone within the last 3 months but is not currently. He denied any other respiratory tract symptoms. He said no fever or chills. He said no significant cough or production of sputum. Upon presentation he had limited ability to speak in more than 2-3 words due to respiratory distress and use of accessory muscles. He was treated with DuoNebs x 1 and IV Solu-Medrol. His respiratory distress improved however he was hypoxic on room air 88%. He was placed on 2 L nasal cannula. Unfortunately, he remained persistently hypoxic despite treatment and will require admission for further management. Vital signs at the time of presentation showed a temperature of 98.5, heart qauh140, respiratory rate was 20 with short labored breathing that was shallow and tachypneic, blood pressure was 144/99 and pulse ox was 88% on room air at rest. CBC is unremarkable other than a significant eosinophilia at 9.2%. ABG was obtained and showed a pH of 7.43 with a PCO2 of 31.6 and a pO2 of 57 with a sat of 90% on room air. Chemistry panel was unremarkable. Chest x-ray is unremarkable. Given his hypoxia at rest we will admit as observation status with expected length of stay less than 2 midnights. 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[employer] Smoking Status: Never smoker Electronic Cigarette Use: not used alcohol intake: former details: former heavy drinker, 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 substance use type: marijuana what type of physical activity do you participate in: none do you feel safe at home: Yes ROS Constitutional Constitutional: Denies anorexia, change in weight, chills, fatigue, fever(s), malaise, night sweats, weakness or other Eyes Eyes: Denies blurry vision, change in eye color, change in vision, discharge from eye(s), double vision, erythema, eye pain, loss of vision or other ENT HEENT: Denies abnormal hearing, dysphagia, ear pain, epistaxis, headache(s), hearing loss, nasal congestion, nasal discharge, post nasal drip, sinus pressure, sore throat or other Cardiovascular Cardiovascular: Reports dyspnea on exertion; Denies chest pain, claudication, edema, lightheadedness, orthopnea, palpitations, paroxysmal nocturnal dyspnea, rapid heart rate, syncope or other Respiratory/Chest Respiratory/Chest: Reports dyspnea, shortness of breath at rest and shortness ofbreath with exertion; Denies cough, excessive phlegm production, hemoptysis, productive cough, wheezing or other Gastrointestinal Gastrointestinal: Denies abdominal pain, coffee ground emesis, constipation, diarrhea, dyspepsia, hematemesis, hematochezia, loose stools, melena, nausea, vomiting or other Genitourinary Genitourinary: Denies burning urination, difficulty urinating, dysuria, hematuria, nocturia, urinary frequency, urinary hesitancy, urinary incontinence,urinary urgency or other Musculoskeletal Musculoskeletal: Denies arthralgias, back pain, joint pain, joint stiffness, joint swelling, myalgias, neck pain or other Neurologic Neurologic: Denies abnormal gait, abnormal speech, confusion, disequilibrium, dizziness, focal weakness, headache(s), numbness, paresthesias, seizure-like activity, seizures, syncope, tingling, tremor(s) or other Psychiatric Psychiatric: Denies anxiety, depression, homicidal ideation, suicidal ideation or other Endocrine Endocrinology: Denies change in body appearance, cold intolerance, excessive sweating, heat intolerance, polydipsia, polyuria or other Hematologic/Lymphatic Hematologic/Lymphatic: Denies anemia, easy bleeding, easy bruising, lymphadenopathy or other Allergic/Immunologic Allergic/Immunologic: Denies rhinitis, hives, eczemia, asthma or other Vital Signs Vital Signs Vital Signs: 10/08/24 02:10 10/08/24 02:13 10/08/24 02:13 Temperature 98.5 F 98.5 F Temperature Source Oral Oral Pulse Rate 102 H 103 H Respiratory Rate 20 H 20 H Respiratory Effort Short of Breath Labored Respiratory Depth Shallow Respiratory Pattern Tachypnea Blood Pressure 144/99 H Blood Pressure Mean 114 Pulse Ox 92 93 Oxygen Delivery Method Room Air Room Air Room Air Oxygen Flow Rate (L/min) 10/08/24 02:15 10/08/24 02:25 10/08/24 03:15 Temperature 98.3 F Temperature Source Oral Pulse Rate 114 H 94 Respiratory Rate 18 18 Respiratory Effort Respiratory Depth Respiratory Pattern Normal Blood Pressure 135/82 H Blood Pressure Mean 99 Pulse Ox 92 91 Oxygen Delivery Method Room Air Room Air Oxygen Flow Rate (L/min) 10/08/24 03:57 10/08/24 04:00 Temperature 98.3 F Temperature Source Oral Pulse Rate 76 Respiratory Rate 18 Respiratory Effort Respiratory Depth Respiratory Pattern Blood Pressure 132/86 H Blood Pressure Mean 101 Pulse Ox 92 95 Oxygen Delivery Method Nasal Cannula Room Air Oxygen Flow Rate (L/min) 1 Weight Weight: 70.4 kg Body Mass Index (BMI) 26.6 Physical Exam Const alert, oriented x3, no apparent distress, average body habitus, healthy appearing and well nourished Constitutional Narrative: Very pleasant, middle-aged, white male, lying in bed, significant other bedside,appears comfortable, nontoxic General Appearance: cooperative HEENT normocephalic, head/scalp atraumatic, hearing grossly normal bilaterally and moist oral mucous membranes HEENT Narrative: Mallampati 2, no thrush Resp normal respiratory effort, no retractions, no use of accessory muscles and No clear to auscultation bilaterally Resp Narrative: Diffuse scattered end expiratory wheezes, no current signs of respiratory distress Auscultation: wheezes Cardio regular rate, regular rhythm, S1 normal heart sound, S2 normal heart sound, no murmurs, no rub and no gallops GI normal to inspection, nondistended, normoactive bowel sounds, soft to palpation and non-tender Extremity no clubbing, cyanosis or edema Extremity Narrative: 2+ pedal pulses Neuro oriented x3 and moves all extremities Speech: speech normal Psych affect normal Psych Narrative: Very pleasant, eye contact is good and patient interacts appropriately Results Lab / Micro Data 10/08/24 02:23 10/08/24 02:23 Labs: Laboratory Results - last 24 hr 10/08/24 02:23: WBC 6.0, RBC 5.03, Hgb 14.9, Hct 43.1, MCV 85.7, MCH 29.6, MCHC 34.6, RDW Std Deviation 40.2, RDW Coeff of Christiano 13.1, Plt Count 186, MPV 9.2, Immature Gran % (Auto) 0.500, Neut % (Auto) 55.7, Lymph % (Auto) 23.7, [place] % (Auto) 9.7, Eos % (Auto) 9.2 H, Baso % (Auto) 1.2 H, Absolute Neuts (auto) 3.3, Absolute Lymphs (auto) 1.42, Nucleated RBC % 0, Sodium 138, Potassium 3.9, Chloride 106, Carbon Dioxide 19.8 L, Anion Gap 13, BUN 22 H, Creatinine 1.10, Estim Creat Clear Calc 71.76, Est GFR (MDRD) Non-Af 85, BUN/Creatinine Ratio 19.9, Glucose 97, Calcium 9.4 ABG Data ABG results: ABG 10/08/24 03:16 Specimen Type ART Sample Site R Radial pH 7.43 Bicarbonate Actual 20.9 L Total CO2 22 Base Excess -4 L O2 Saturation 90 L ABG pCO2 31.6 L ABG pO2 57 L Aleksandar Test Positive O2 Delivery Device Room Air Vent Mode Not entered Rhythm Strip Rhythm Strip: Sinus Tach Rate: 103 Imaging Radiology Impression Chest X-Ray 10/08/24 02:50 IMPRESSION: No evidence for acute abnormality. Reading Location: [place] [address] Assessment & Plan Assessment/Plan (1) Acute exacerbation of asthma with allergic rhinitis: (2) Sinus tachycardia seen on desk monitor: (3) Hypoxemia: PLAN: Plan Acute eczema exacerbation with hypoxia - Patient requiring 2 L at rest - Check respiratory viral panel and COVID-19 - Solu-Medrol 40 every 8 - Scheduled and as needed nebulizers - Incentive spirometer - Acapella - Start Singulair - Patient would benefit from outpatient follow-up with pulmonary medicine at baseline for his asthma Asthma/seasonal allergies - Start Singulair as noted above - Hold home inhaler - Recommend outpatient follow-up with pulmonary medicine Sinus tachycardia - Secondary to the above - Should resolve with improved respiratory status History of liver cirrhosis secondary to alcohol abuse status post liver transplant - Liver transplant was in - Continue mycophenolate and tacrolimus - Outpatient follow-up as previous really commended History of angioedema - Remote History of alcoholism - Currently sober DVT prophylaxis - Low risk - Recommend early and frequent ambulation CODE STATUS Full code Charges/Coding Visit Charges Inpatient E&M: 29600 Init Hosp L2 10/08/24 4487 <Electronically signed by Uma Smith DO> Cosigner Signature (if applicable): CC: Dr. Lexi Barnes MD; Dr. Uma Smith DO~ Signed [facility] Work Phone: Reason for referral (narrative)No reason for referral information availableWDunlap [facility] Work Phone: Summary Purpose Family History No Family History Records Found Relationship Condition Age at Onset Recorded Date/T tye father Alcoholism Unknown Asthma Unknown mother Asthma Unknown grandmother Malignant neoplasm Unknown Advance Directives No Advanced Directives Records Found Advance Directive Response Recorded Date/ Time Advance Directives No December 22, 2014 9:36pm Living Will No April 17, 2 021 9:20am Power of Sail Lay Out Worker No April 17, 2021 9:20am Advance Directive Response Recorded Date/ Time Advance Directives No December 22, 2014 10:36pm Living Will No April 17, 2 021 10:20am Power of Sail Lay Out Worker No April 17, 2021 10:20am Advance Directive Response Recorded Date/ Time Advance Directives No December 22, 2014 9:36pm Living Will No April 07, 2 023 3:58pm Power of Sail Lay Out Worker No April 07, 2023 3:58pm Advance Directive Response Recorded Date/ Time Living Will No April 07, 2 023 4:58pm Power of Sail Lay Out Worker No April 07, 2023 4:58pm Living Will No June 11, 2 025 5:22pm Power of Sail Lay Out Worker No June 11, 2024 5:22pm Living Will No July 05, 2024 10:12pm Power of Sail Lay Out Worker No July 05 10:12pm Advance Directives No December 22, 2014 10:36pm Advance Directive Response Recorded Date/ Time Living Will No April 07 023 4:58pm Power of Sail Lay Out Worker No April 07, 2023 4:58pm Living Will No June 11, 2 025 5:22pm Power of Sail Lay Out Worker No June 11, 2024 5:22pm Living Will No July 06, 2024 3:55am Power of Sail Lay Out Worker No July 06 3:55am Advance Directives No December 22, 2014 10:36pm Advance Directive Response Recorded Date/ Time Living Will No April 07 023 4:58pm Do you have a Healthcare Power of Sail Lay Out Worker? No April 07, 2023 4:58pm Living Will No June 11 2 025 5:22pm Do you have a Healthcare Power of Sail Lay Out Worker? No June 11, 2024 5:22pm Living Will No July 22, 2024 12:54am Do you have a Healthcare Power of Sail Lay Out Worker? No July 22, 2024 12:54am Living Will No July 06, 2024 3:55am Do you have a Healthcare Power of Sail Lay Out Worker? No July 06, 2024 3:55am Advance Directives No December 22, 2014 10:36pm Advance Directive Response Recorded Date/ Time Living Will No April 07 4:58pm Do you have a Healthcare Power of Sail Lay Out Worker? No April 07, 2023 4:58pm Living Will No June 11, 025 5:22pm Do you have a Healthcare Power of Sail Lay Out Worker? No June 11, 2024 5:22pm Living Will No July 22, 2024 4:14am Do you have a Healthcare Power of Sail Lay Out Worker? No July 22, 2024 4:14am Living Will No July 06, 2024 3:55am Do you have a Healthcare Power of Sail Lay Out Worker? No July 06, 2024 3:55am Advance Directives No December 22, 2014 10:36pm Advance Directive Response Recorded Date/ Time Living Will No June 11 025 5:22pm Do you have a Healthcare Power of Sail Lay Out Worker? No June 11, 2024 5:22pm Living Will No July 22, 2024 4:14am Do you have a Healthcare Power of Sail Lay Out Worker? No July 22, 2024 4:14am Living Will No July 06, 2024 3:55am Do you have a Healthcare Power of Sail Lay Out Worker? No July 06, 2024 3:55am Do you have a Healthcare Power of Sail Lay Out Worker? No October 08, 2024 2:13am Advance Directives No December 22, 2014 10:36pm Advance Directive Response Recorded Date/ Time Living Will No June 11 5:22pm Do you have a Healthcare Power of Sail Lay Out Worker? No June 11, 2024 5:22pm Living Will No July 22, 2024 4:14am Do you have a Healthcare Power of Sail Lay Out Worker? No July 22, 2024 4:14am Living Will No July 06, 2024 3:55am Do you have a Healthcare Power of Sail Lay Out Worker? No July 06, 2024 3:55am Do you have a Healthcare Power of Sail Lay Out Worker? No October 08, 2024 5:07am Advance Directives No December 22, 2014 10:36pm Chief Complaint and Reason for Visit Chief Complaint CLEARANCE DIVER, EST. CARE, PT NE EDS NPP S/O Reason for Visit Essential hypertensi on Establishing care with new doctor, encounter for S/P liver transplant Moderate asthma without complication Chief Complaint CLEARANCE DIVER, EST. CARE, PT NE EDS NPP S/O [...] ACUTE HYPOXIC RESPIRATORY July 23, 2024 12:30pm HYPOXIA 2/2 ACUTE ASTHMA EXACERBATION Ju ne 2024 4:19am Reason for Visit Admit Date Asthma exacerbation July 06, 2024 2:3 6am Essential hypertension July 06, 2024 2:36am History of alcohol abuse July 06 2:36am Respiratory insufficiency July 06 2:36am Cirrhosis July 06, 2024 2:3 6am History of liver transplant July 06, 2024 2:36am Acute bacterial bronchitis July 22, 2 025 3:40am Acute hypoxic respiratory failure July 22, 2024 3:40am Essential hypertension July 22, 2024 3:40am History of alcohol abuse July 22 3:40am Hypophosphatemia July 22, 2024 3:4 0am Liver transplant recipient July 22, 2 025 3:40am Asthma exacerbation July 22, 2024 3:4 0am Hypoxia July 22, 2024 3:4 0am Acute exacerbation of asthma with allerg ic rhinitis October 08, 2024 4:19am Acute respiratory distress October 08 4:19am Asthma, extrinsic with exacerbation October 08, 2024 4:19am Essential hypertension October 08, 2024 4 :19am Hypoxemia October 08, 2024 4:19 am Liver transplant recipient October 08 4:19am Sinus tachycardia seen on cardiac monito r October 08, 2024 4:19am Chief Complaint Admit Date SOB June 11, 2024 4:17pm AE ASTHMA, RESPIRATORY INSUFFICIENCY & M arch 2024 2:36am AE ASTHMA WITH ACUTE HYPOXIC RESPIRATORY July 22, 2024 3:40am AE ASTHMA WITH ACUTE HYPOXIC RESPIRATORY July 23, 2024 12:30pm HYPOXIA 2/2 ACUTE ASTHMA EXACERBATION Ju ne 2024 4:19am HYPOXIA 2/2 ACUTE ASTHMA EXACERBATION Ju ne 2024 3:20pm Reason for Visit Admit Date Asthma exacerbation July 06, 2024 2:3 6am Essential hypertension July 06, 2024 2:36am History of alcohol abuse July 06 2:36am Respiratory insufficiency July 06 2:36am Cirrhosis July 06, 2024 2:3 6am History of liver transplant July 06, 2024 2:36am Acute bacterial bronchitis July 22, 025 3:40am Acute hypoxic respiratory failure July 22, 2024 3:40am Essential hypertension July 22, 2024 3:40am History of alcohol abuse July 22 3:40am Hypophosphatemia July 22, 2024 3:4 0am Liver transplant recipient July 22 025 3:40am Asthma exacerbation July 22, 2024 3:4 0am Hypoxia July 22, 2024 3:4 0am Acute exacerbation of asthma with allerg ic rhinitis October 08, 2024 3:20pm Acute respiratory distress October 08 3:20pm Asthma, extrinsic with exacerbation October 08, 2024 3:20pm Essential hypertension October 08, 2024 3 :20pm Hypoxemia October 08, 2024 3:20 pm Liver transplant recipient October 08 3:20pm Sinus tachycardia seen on cardiac monito r October 08, 2024 3:20pm Reason for Referral Specialty Diagnoses / Procedures Referred By Contac t Referred To Contact General Surgery Diagnoses Non-recurrent bilateral inguinal hernia without obstruction or gangrene Procedures CONSULT TO GENERAL SURGERY OFFICE/OUTPATIENT [facility] 60 MINUTES Dany Painter MD [address] [facility] [place] [address] Norman Mcwilliams MD [address] [place] [address] Referral ID Status Reason Start Date Expiration Date Visits Requested Visits Authorized [id number] Pending Review PCP Requested Referral 02/15/2025 1 1 Additional Source Comments (unrecognized sect ion and content) No Status Records FoundNo Status Records FoundNo Status Records FoundNo Status Records FoundNo Status Records Found INFORMATION SOURCE (unrecogn ized section and content) DATE CREATED AUTHOR 07/26/2021 [facility] DATE CREATED AUTHOR AUTHOR'S ORGANIZ ATION 10/28/2023 [facility] ([place]) DATE CREATED AUTHOR AUTHOR'S ORGANIZ ATION 02/18/2024 [facility] DATE CREATED AUTHOR AUTHOR'S ORGANIZ ATION 05/13/2024 [facility] DATE CREATED AUTHOR AUTHOR'S ORGANIZ ATION 10/20/2024 [facility] Care Teams (unrecognized sec tion and content) Team Status: Active Member Role Status Dates Megha Pearson PA, PA Family Provider Active Dr. Lexi Barnes [...] Barnes MD Primary Care Provider Active Dr. uJstin Pinto MD Attending Provi dee, Referring Provider, Emergency Provider Active Team Status: Active Member Role Status Dates Dr. Lexi Barnes MD Primary Care Provider Active Team Status: Inactive Member Role Status Dates Dr. Lexi Barnes MD Primary Care Provider Active Start: March 29, 2024 End: March 29, 2024 TADMONA ELIZALDE Other Provider Active Start: 2023 End: March [...] July 06, 2024 Dr. Jam Jiang , DO Emergency Provider Active Start: July 06, 2024 Dr. Lisa Jain , DO Admit Provider Active Start: July 06, 2024 Dr. Lisa Jain , DO Attending Provider Active Start: July 06, 2024 Team Status: Inactive Member Role Status Dates Dr. Lexi Barnes MD Primary Care Provider Active Start: July 06, 2024 End: July 06, 2024 Dr. Jam Jiang , DO Emergency Provider Active Start: July 06, 2024 End: July 06, 2024 Dr. Lisa Jain , DO Admit Provider Active Start: July 06, 2024 End: July 06, 2024 Dr. Lisa Jain , DO Other Provider Active Start: July 06, 2024 End: July 06, 2024 Dr. Natalie Dasilva , DO Attending Provider Active Start: July 06, 2024 End: July 06, 2024 Team Status: Active Member Role Status Dates Dr. Lexi Barnes MD Primary Care Provider Active Start: July 22, 2024 Dr. Natalie Jeffery , Emergency Provider Active Start: July 22, 2024 Dr. Lisa Jain , DO Admit Provider Active Start: July 22, 2024 Dr. Lisa Jain , DO Attending Provider Active Start: July 22, 2024 Team Status: Inactive Member Role Status Dates Dr. Lexi Barnes MD Primary Care Provider Active Start: July 22, 2024 End: July 23, 2024 Dr. Natalie Jeffery , DO Emergency Provider Active Start: July 22, [...] Start: July 23, 2024 Dr. Natalie Jeffery , Emergency Provider Active Start: July 23, 2024 Dr. Lisa Jain DO Admit Provider Active Start: July 23, 2024 Dr. Lisa Jain DO Other Provider Active Start: July 23, 2024 Dr. Andrea Daly MD Attending Provider Active Start: July 23, 2024 Dr. Andrea Daly MD Other Provider Active Start: July 23, 2024 Team Status: Active Member Role Status Dates Dr. Lexi Barnes MD Primary Care Provider Active Start: October 08, 2024 Dr. Drew Colmenares MD Emergency Provider Active Sta rt: October 08, 2024 Dr. Uma Smith DO Admit Provider Active Start : October 08, 2024 Dr. Uma Smith DO Attending Provider Active S tart: October 08, 2024 Dr. Uma Smith DO Other Provider Active Start : October 08, 2024 Team Status: Inactive Member Role Status Dates Dr. Lexi Barnes MD Primary Care Provider Active Start: October 08, 2024 End: October 09, 2024 Dr. Drew Colmenares MD Emergency Provider Active Sta rt: October 08, 2024 End: October 09, 2024 Dr. Uma Smith DO Admit Provider Active Start : October 08, 2024 End: October 09, 2024 Dr. Uma Smith DO Other Provider Active Start : October 08, 2024 End: October 09, 2024 Dr. Meet Puckett , Attending Provider Active Start: October 08, 2024 End: October 09, 2024 Goals (unrecognized section and content) Goals [...] or prosecute any alcohol or drug abuse patient.[facility] Reason for Visit (unrecogniz ed section and content) Reason Comments Consult hernia Specialty Diagnoses / Procedures Referred By Margaret acuna Referred To Contact General Surgery / GENERAL SURGERY Diagnoses Hernia Groin Hernia Procedures OFFICE/OUTPATIENT NEW MODERATE MDM 45 MINUTES NEW DDI PATIENT Self Dany Painter MD [address] [place] [address] Referral ID Status Reason Start Date Expiration Date Visits Requested Visits Authorized [id number] Waiting for Response Financial Clearance Required - OON Payor OON Notification Letter Patient Cleared - Admin/Spotlight Operator/ Director advise to proceed or did [...] BE BASED ON THE PRIMARY CLINICAL RECORDS. [facility]. provides no warranty or guarantee of the accuracy or completeness of information in this document.
== END 2024-07-06 16:07 | disposition home or self-care (01) | DRG 202 ==
LOC: ED 07-06 02:41 → MS3 07-06 06:58
PROVIDERS: Admitting Provider Internal Medicine; Emergency Provider Emergency Medicine; PCP Internal Medicine
DX: J45.51 Severe persistent asthma with (acute) exacerbation (principal); K70.30 Alcoholic cirrhosis of liver without ascites; Z94.4 Liver transplant status; I10 Essential (primary) hypertension; F10.10 Alcohol abuse, uncomplicated; K21.9 Gastro-esophageal reflux disease without esophagitis; Z79.51 Long term (current) use of inhaled steroids; Z79.899 Other long term (current) drug therapy; F12.10 Cannabis abuse, uncomplicated; Z23 Encounter for immunization
CPT/HCPCS: 36415; 71046; 80048; 80053; 82803; 83735; 84100; 84443; 85025; 85610; 87631; 90656; 94640; 94668; 96361; 96372; 96374; 96376; 99221; 99252; 99283; A4216; G0378; G0463

== ENCOUNTER 2024-07-22 00:48 | Inpatient (IN) | payer OTHER, SELFPAY ==
[2024-07-22] VITALS (23 sets, daily range): BP systolic 122–175; BP diastolic 61–113; PULSE 69–127; RESP 12–27; TEMP 36.4–36.8; O2SAT 90–100; BMI 61.0; BMI 26.7
--- NOTE | 2024-07-22 01:01 | EKG12_ITS ---
Test Reason : DYSRHYTHMIA Blood Pressure : */* mmHG Vent. Rate : 104 BPM Atrial Rate : 104 BPM P-R Int : 166 ms QRS Dur : 82 ms QT Int : 342 ms P-R-T Axes : 76 85 59 degrees QTcB Int : 449 ms Sinus tachycardia Possible Left atrial enlargement Borderline ECG Confirmed by YANG JIANG, NAKUL ([id number]), commissioning editor SHARON HANNAH ([id number]) on 07/23/2024 8:19:45 AM Referred By: Confirmed By: NAKUL SORIA MD
--- NOTE | 2024-07-22 01:01 | RAD_ITS ---
PROCEDURE: CHEST 1 VIEW (PORTABLE) 07/22/2024 REASON FOR EXAM: DYSPNEA TECHNIQUE: Frontal view of the chest. COMPARISON: 07/05/2024 and 02/03/2024 FINDINGS: The lungs appear clear. Hyperinflation again noted. Pulmonary vascularity appears within limits. No pleural effusion. The cardiac and mediastinal contours appear within limits. The visualized osseous structures appear within limits. RAD/Chest 1 View (Portable) IMPRESSION: Hyperinflation again noted. No evidence of acute disease. Reading Location: [id number]
[2024-07-22 01:11] LABS: Allen Test Positive; Base Excess 3 mmol/L (-2 to +2); Bicarbonate 27.6 mmol/L (22-26); Blood Gas Specimen Type ART; Mode Not entered; O2 Delivery Device BiPAP; PO2 86 mmHG (75-100); SITE L Radial; SO2 96 % (95-99); Total Carbon Dioxide 29 mmol/L; pCO2 46.6 mmHg (35-45); pH 7.38 (7.35-7.45)
--- NOTE | 2024-07-22 01:14 | ED.VIS.DYS ---
HPI History of Present Illness Chief Complaint: Shortness of Breath Informant: patient Onset/Context/Timing Onset: Today Context: sudden Timing: Continuous Quality: Positive for Dyspnea on exertion, Orthopnea and Wheezing Worsened by: Exertion and Lying flat Relieved by: - (Steroids) Associated Symptoms cough, clear sputum, yellow sputum and green sputum; Negative for rhinorrhea, post nasal drip, ear pain, fever, sore throat, chills or sweats Chest Pain: Positive for None Narrative Narrative: Patient presents with shortness of breath that has been getting worse throughout the day today. Patient states it began rather suddenly. Patient states his breathing is worse with any exertion and with laying flat. Patient states he also feels like he is wheezing. Patient states he is coughing up some yellow, green, and clear sputum. Patient denies any fevers or chills. Patient denies any chest pain. Patient denies any sore throat or rhinorrhea. Patient states that steroids usually help with his breathing. Patient states he is not currently on steroids. PE Risk Factors: Negative for Cancer, OCP + Smoking + > 35, Prior DVT or PE, Recent immobilization, Recent surgery or Recent travel [facility] Medical History Cirrhosis Asthma Alcohol abuse Angioedema Home Medications ?Medication ?Instructions ?Recorded ?Last Taken ?Type fluticasone 100 mcg-salmeterol 50 1 ea IH DAILY breathing 01/04/19 Unknown History mcg/dose blistr powdr for inhalation amlodipine 10 mg tablet (Norvasc) 10 mg PO DAILY 05/20/22 Unknown History mycophenolate mofetil 500 mg 500 mg PO BID 05/20/22 Unknown History tablet (CellCept) tacrolimus 1 mg capsule,extended 2 mg PO BID liver 05/20/22 Unknown History release 24 hr albuterol sulfate 2.5 mg/3 mL 2.5 mg (3 mL) inhalation Q4H PRN 02/03/24 Unknown Rx (0.083 %) solution for nebulization #25 vials tacrolimus 1 mg capsule, 2 mg PO BID 02/03/24 Unknown History immediate-release Allergy/AdvReac Type Severity Reaction Status Date / Time lisinopril Allergy Angioedema Verified 07/05/24 21:59 Family History Father Alcoholism Asthma Mother Asthma Grandmother Cancer brain Surgical History Hx of liver transplant Social History household members: none current occupational status: employed 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[employer] Smoking Status: Never smoker Electronic Cigarette Use: not used alcohol intake: former details: former heavy drinker, 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 substance use type: marijuana what type of physical activity do you participate in: none do you feel safe at home: Yes ROS ROS ED Constitutional Constitutional ED: Denies chills or fever(s) Eyes Eyes: Denies blurry vision or change in vision ENT ENT ED: Denies rhinorrhea or sore throat Cardiovascular Cardiovascular: Denies chest pain or palpitations Respiratory/Chest Respiratory/Chest: Reports cough and dyspnea Gastrointestinal Gastrointestinal: Denies nausea or vomiting Genitourinary Genitourinary ED: Denies dysuria or hematuria Musculoskeletal Musculoskeletal: Denies back pain or neck pain Integumentary Denies abscess or rash Neurologic Neurologic: Denies headache(s) or weakness Allergic/Immunologic Allergic/Immunologic ED: Denies mouth swelling or urticaria EXAM Physical Exam Const Vital Signs: 07/22/24 00:49 07/22/24 00:51 07/22/24 01:01 Temperature 97.9 F Temperature Source Temporal Pulse Rate 126 H 127 H Respiratory Rate 27 H 23 H Respiratory Effort Respiratory Depth Respiratory Pattern Tachypnea Blood Pressure 175/113 H Blood Pressure Mean 133 Pulse Ox 95 96 94 Oxygen Delivery Method Bi-pap Bi-pap Oxygen Flow Rate (L/min) Fraction of Inspired Oxygen (FIO2) 30 30 07/22/24 01:04 07/22/24 01:18 07/22/24 01:28 Temperature 97.7 F L Temperature Source Pulse Rate 104 H 107 H Respiratory Rate 20 H 21 H Respiratory Effort Short of Breath Labored Accessory Muscle Use Head [place] Respiratory Depth Shallow Respiratory Pattern Tachypnea Normal Blood Pressure 147/111 H Blood Pressure Mean 123 Pulse Ox 94 Oxygen Delivery Method Room Air Oxygen Flow Rate (L/min) Fraction of Inspired Oxygen (FIO2) 07/22/24 01:28 07/22/24 01:48 07/22/24 02:00 Temperature 97.9 F Temperature Source Oral Pulse Rate 107 H 90 89 Respiratory Rate 18 15 16 Respiratory Effort Respiratory Depth Respiratory Pattern Blood Pressure 147/111 H 130/90 H 122/61 H Blood Pressure Mean 123 103 81 Pulse Ox 94 96 96 Oxygen Delivery Method Bi-pap Bi-pap Bi-pap Oxygen Flow Rate (L/min) Fraction of Inspired Oxygen (FIO2) 07/22/24 02:16 07/22/24 02:56 Temperature Temperature Source Pulse Rate 90 Respiratory Rate 25 H Respiratory Effort Respiratory Depth Respiratory Pattern Blood Pressure 137/83 H Blood Pressure Mean 101 Pulse Ox 95 93 Oxygen Delivery Method Nasal Cannula Nasal Cannula Oxygen Flow Rate (L/min) 2 4 Fraction of Inspired Oxygen (FIO2) Positive well nourished and well developed General Appearance ED: well developed and NAD HEENT Reports moist mucous membranes atraumatic Neck supple and no meningeal signs Resp Auscultation: wheezes expiratory wheezes, inspiratory wheezes and throughout Cardio regular rhythm Rate: tachycardic GI non-tender and non-distended Palpation: soft Extremity General Extremety ED: Negative for edema or tenderness General Extremity: Negative for edema Neuro oriented x3, CN's II-XII intact bilaterally and no sensory deficits noted Freeman Coma Scale: document GCS findings Spontaneous Obeys Commands Oriented 15 Sensorium / Orientation: alert Motor Exam: strength 5/5 throughout Psych mental status grossly normal MDM MDM MDM Narrative Medical decision making narrative: Differential diagnosis includes asthma exacerbation, pneumonia, bronchitis, congestive heart failure, cardiac dysrhythmia, cardiac ischemia, and viral upper respiratory infection. EKG will be obtained to assess for cardiac dysrhythmia and cardiac ischemia. Chest x-ray will be obtained to assess for pneumonia and congestive heart failure. Arterial blood gas will be obtained to assess for pH and oxygenation status. CBC will be obtained to assess for leukocytosis and anemia. Basic metabolic profile will be obtained to assess for electrolyte abnormality renal function. High-sensitivity troponin will be obtained to assess for cardiac ischemia. COVID-19, influenza, and RSV PCR will be obtained to assess for viral illness. History & Record Review Additional record(s) reviewed:: Prior inpatient record, Prior ED visit and Prior labs Lab Data Attestation: I reviewed the patient's lab results. Lab results narrative: CBC was reviewed and was within normal limits. Basic metabolic profile was reviewed. BUN was slightly elevated at 23 and creatinine was 1.21. The remainder is within normal limits. High-sensitivity troponin was reviewed and was normal at 10. COVID-19 PCR was reviewed and was negative. Influenza PCR was reviewed and was negative for influenza A and influenza B. RSV PCR was reviewed and was negative. Labs: Laboratory Results - last 24 hr 07/22/24 00:56 WBC 10.5 RBC 5.40 Hgb 15.9 Hct 45.2 MCV 83.7 MCH 29.4 MCHC 35.2 RDW Std Deviation 37.9 RDW Coeff of Christiano 12.7 Plt Count 155 MPV 9.2 Immature Gran % (Auto) 0.600 Neut % (Auto) 70.1 H Lymph % (Auto) 16.6 L Harrison % (Auto) 7.6 Eos % (Auto) 4.4 Baso % (Auto) 0.7 Absolute Neuts (auto) 7.4 Absolute Lymphs (auto) 1.75 Nucleated RBC % 0 Sodium 141 Potassium 4.1 Chloride 104 Carbon Dioxide 21.8 Anion Gap 15 BUN 23 H Creatinine 1.21 H Estim Creat Clear Calc 110.15 Est GFR (MDRD) Non-Af 76 BUN/Creatinine Ratio 19.2 Glucose 94 Calcium 9.6 Troponin T High Sens 10 ABG Data Attestation: I personally reviewed and interpreted this ABG as follows: Interpretation: Arterial blood gas was reviewed. pH was 7.38, pCO2 is 46.6, pO2 was 86.4, bicarb was 27.6, and O2 sat was 96.3% on BiPAP with an FiO2 of 30%. ABG results: ABG 07/22/24 01:07 Specimen Type ART Sample Site L Radial pH 7.38 Bicarbonate Actual 27.6 H Total CO2 29 Base Excess 3 H O2 Saturation 96 O2 % 30.0 ABG pCO2 46.6 H ABG pO2 86 Miguel Angel Test Positive O2 Delivery Device BiPAP Vent Mode Not entered Clinical Comments Radiography Chest X-Ray - ED: 1 View, Read by ED Physician, Read by Radiologist and No Acute Disease Diagnostic Testing: Clinical Impression(s) from Imaging Studies Chest X-Ray 07/22/24 01:01 IMPRESSION: Hyperinflation again noted. No evidence of acute disease. Reading Location: [facility] Portable 1 view chest x-ray was obtained. On my independent interpretation, lung newsome are hyperinflated. There is normal cardiac silhouette. Bony thorax is normal. There is no acute process noted. Radiologist also interpreted the x-ray and agrees. EKG Initial EKG: Attestation: I personally reviewed and interpreted this EKG as follows: Interpretation: No Acute Injury Pattern and Sinus Tachycardia (104) Comments: EKG was obtained. On my independent interpretation, it showed a sinus tachycardia with a rate of 104. SD interval, QRS interval, and QTc intervals were all normal. [place] was normal. There are no acute ST or T wave changes. Prior EKG tracings: available for review Prior: Unchanged (02/03/2024) Management Discussion w/another healthcare provider: Hospitalist (Dr. Garcia) Treatment and Re-Evaluation :: Patient was given a DuoNeb aerosol here. Patient was given a dose of Solu-Medrol. Patient was placed on CPAP by EMS. Patient was continued on BiPAP here. Because of the tachycardia and tachypnea initially, patient did trigger a sepsis alert. However, patient is afebrile and his vital signs improved after respiratory treatments. I do not feel this is an infectious etiology or sepsis. Patient was feeling better. Patient no longer requires BiPAP. Patient is on 4 L nasal cannula. Patient states he does not wear oxygen at home. Because of the need for oxygen, I will discuss case with the hospitalist for admission. He will admit the patient to his service. Patient understood and was agreeable with plan. All questions were answered. Discharge Plan Triage Chief Complaint: Shortness of Breath ED Provider: Jeevan Jeffery Dx/Rx/DC Orders Clinical Impression: Asthma exacerbation, Hypoxia Prescriptions: No Action amlodipine [Norvasc] 10 mg tablet 10 mg PO DAILY tacrolimus 1 mg capsule,extended release 24hr 2 mg PO BID Rx Instructions: must administer in the morning on an empty stomach, 1 hour before or 2 hours after a meal mycophenolate mofetil [CellCept] 500 mg tablet 500 mg PO BID fluticasone propion-salmeterol 1 EACH blister with device 1 ea IH DAILY albuterol sulfate 2.5 mg /3 mL (0.083 %) solution for nebulization 2.5 mg inhalation Q4H PRN Qty: 25 0RF Rx Instructions: Use q4 hours and PRN for wheezing tacrolimus 1 mg capsule 2 mg PO BID Primary Care Provider: Lexi Barnes Referrals: Lexi Barnes MD [Primary Care Provider] - Print Language: Yi Disposition Disposition: Acute Care Hospital [facility]
[2024-07-22] MEDS: Ipratropium/Albuterol Sulfate 3 ML AMPUL.NEB INHALATION (01:18)
[2024-07-22 01:19] LABS: Absolute Lymphocyte Count 1.75 X10^3/uL (0.83-4.51); Absolute Neutrophil Count 7.4 X10^3/uL (2.0-7.7); Basophil# 0.07 X10^3/uL; Basophil% 0.7 % (0-1); Eosinophil# 0.46 X10^3/uL; Eosinophils% 4.4 % (0-5); Hematocrit 45.2 % (40-54); Hemoglobin 15.9 g/dL (13.0-16.5); Lymphocyte # 1.75 X10^3/ul (0.83-4.51); Lymphocyte % 16.6 % (19-41); Mean Corp Hgb Conc 35.2 g/dL (32-36); Mean Corpuscular Hgb 29.4 pg (27.0-32.0); Mean Corpuscular Volume 83.7 fL (80-94); Mean Platelet Vol. 9.2 fl (6.2-12.0); Monocyte% 7.6 % (0-10); NRBC Flagged by Analyzer 0 % (0-5); Neutrophil # 7.38 X10^3/uL (2.7-7.7); Neutrophil % 70.1 % (47-70); Platelet Count 155 K/mm3 (150-450); RBC Distribution Width CV 12.7 % (11.6-14.6); RBC Distribution Width SD 37.9 fl (35.1-43.9); White Blood Count 10.5 K/mm3 (4.4-11.0)
[2024-07-22] MEDS: MethylPREDNISolone 125 MG/2 ML Vial 60 MG IV ×3 (01:27→21:43)
[2024-07-22 01:39] LABS: Troponin T High Sensitivity 10 ng/L (<=22)
[2024-07-22 01:52] LABS: Anion Gap 15 (5-15); BUN 23 mg/dL (4-19); BUN/Creat Ratio 19.2 RATIO (10-20); Calcium,Total 9.6 mg/dL (7.6-11.0); Carbon Dioxide 21.8 mmol/L (21.0-32.0); Chloride 104 mmol/L (98-108); Creatinine, Serum 1.21 mg/dL (0.70-1.20); EST Glomerular Filtration Rate 76 (>60); Estimated Creatinine Clearance 110.15 ml/min (50-250); Glucose 94 mg/dL (70-99); Potassium 4.1 mmol/L (3.3-5.1); Sodium Level 141 mmol/L (133-145)
--- NOTE | 2024-07-22 03:10 | PCM.HP.STD ---
[facility] - General General Date of Admission: 07/22/24 Date of Service: 07/22/24 Chief Complaint: SOB and Wheezing. HPI Narrative DANNY BEDOYA, is a 44 M with a past medical history of essential hypertension; on amlodipine, history of EtOH Abuse (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); with cirrhosis, history of liver transplant; on mycophenolate mofetil BID and tacrolimus BID, history of cannabis abuse, GERD; on pantoprazole, history of asthma; on prednisone taper listed allergy to lisinopril (angioedema) and recent admission here from July 06, 2024 with discharge the same day after being diagnosed with AE Asthma complicated by Respiratory Insufficiency who re-presents to [facility] ER complaining of SOB. Mr. Bedoya reports his symptoms began approximately one day prior to admission with the sudden-onset of SOB and wheezing that progressively worsened throughout the day. 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 He also admits to cough productive of sputum that has been clear and is now greenish yellow. He admits he recently finished his course of steroids a few days ago with a subsequent worsening of his symptoms. He denies associated fever, chills, runny nose, nausea, vomiting, diarrhea, constipation, abdominal pain, chest pain, rash or headache. In the ER he was diagnosed with AE Asthma with clinical evidence of Acute Hypoxic Respiratory Failure requiring BiPAP with a CXR negative for acute pathologic changes and he was then admitted to the general medical floor for ongoing care for a stay that is expected to extend beyond 2 midnights. [facility] Medical History Cirrhosis Asthma Alcohol abuse Angioedema Home Medications ?Medication ?Instructions ?Recorded ?Last Taken ?Type fluticasone 100 mcg-salmeterol 50 1 ea IH DAILY breathing 01/04/19 07/21/24 History mcg/dose blistr powdr for inhalation amlodipine 10 mg tablet (Norvasc) 10 mg PO DAILY blood pressure 05/20/22 07/21/24 History mycophenolate mofetil 500 mg 500 mg PO BID liver transplant 05/20/22 07/21/24 History tablet (CellCept) albuterol sulfate 2.5 mg/3 mL 2.5 mg (3 mL) inhalation Q4H PRN 02/03/24 07/22/24 Rx (0.083 %) solution for nebulization #25 vials tacrolimus 1 mg capsule, 2 mg PO BID liver transplant 02/03/24 07/21/24 History immediate-release Allergy/AdvReac Type Severity Reaction Status Date / Time lisinopril Allergy Angioedema Verified 07/05/24 21:59 Family History Father Alcoholism Asthma Mother Asthma Grandmother Cancer brain Surgical History Hx of liver transplant Social History household members: none current occupational status: employed 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 Smoking Status: Never smoker Electronic Cigarette Use: not used alcohol intake: former details: former heavy drinker, 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 substance use type: marijuana what type of physical activity do you participate in: none do you feel safe at home: Yes ROS ROS Narrative Review of Systems: Constitutional: Patient denies fever or chills. Eyes: Patient denies changes in vision or discharge from eyes. ENT: Patient denies runny nose, sore throat or ear pain. Resp: Patient admits to SOB, cough productive of greenish yellow sputum and wheezing as per HPI. CV: Patient denies chest pain, palpitations, heart racing or LE edema. GI: Patient denies abdominal pain, nausea, vomiting, diarrhea or constipation. : Patient denies dysuria or hematuria. MSK: Patient denies arthralgias or myalgias. Skin: Patient denies rash, abscess, wounds or jaundice. Psych: Patient denies symptoms of uncontrolled depression or anxiety. Neuro: Patient denies headache, paresthesias or focal neurologic deficits. Allergy: Patient denies lip swelling, tongue swelling or urticaria. Hematology: Patient denies easy bleeding or easy bruisability. Endocrinology: Patient denies polyuria, polydipsia, polyphagia or cold/heat intolerance. 14 point ROS otherwise negative except for positives noted above in HPI. Vital Signs Vital Signs Vital Signs: 07/22/24 00:49 07/22/24 00:51 07/22/24 01:01 Temperature 97.9 F Temperature Source Temporal Pulse Rate 126 H 127 H Respiratory Rate 27 H 23 H Respiratory Effort Respiratory Depth Respiratory Pattern Tachypnea Blood Pressure 175/113 H Blood Pressure Mean 133 Pulse Ox 95 96 94 Oxygen Delivery Method Bi-pap Bi-pap Oxygen Flow Rate (L/min) Fraction of Inspired Oxygen (FIO2) 30 30 07/22/24 01:04 07/22/24 01:18 07/22/24 01:28 Temperature 97.7 F L Temperature Source Pulse Rate 104 H 107 H Respiratory Rate 20 H 21 H Respiratory Effort Short of Breath Labored Accessory Muscle Use Head Bobbing Respiratory Depth Shallow Respiratory Pattern Tachypnea Normal Blood Pressure 147/111 H Blood Pressure Mean 123 Pulse Ox 94 Oxygen Delivery Method Room Air Oxygen Flow Rate (L/min) Fraction of Inspired Oxygen (FIO2) 07/22/24 01:28 07/22/24 01:48 07/22/24 02:00 Temperature 97.9 F Temperature Source Oral Pulse Rate 107 H 90 89 Respiratory Rate 18 15 16 Respiratory Effort Respiratory Depth Respiratory Pattern Blood Pressure 147/111 H 130/90 H 122/61 H Blood Pressure Mean 123 103 81 Pulse Ox 94 96 96 Oxygen Delivery Method Bi-pap Bi-pap Bi-pap Oxygen Flow Rate (L/min) Fraction of Inspired Oxygen (FIO2) 07/22/24 02:16 07/22/24 02:56 Temperature Temperature Source Pulse Rate 90 Respiratory Rate 25 H Respiratory Effort Respiratory Depth Respiratory Pattern Blood Pressure 137/83 H Blood Pressure Mean 101 Pulse Ox 95 93 Oxygen Delivery Method Nasal Cannula Nasal Cannula Oxygen Flow Rate (L/min) 2 4 Fraction of Inspired Oxygen (FIO2) Weight Weight: 355 lb 2.635 oz Body Mass Index (BMI) 61.0 Physical Exam Const alert and oriented x3 Constitutional Narrative: Patient noted to have labored respirations. General Appearance: cooperative HEENT normocephalic, head/scalp atraumatic, hearing grossly normal bilaterally and moist oral mucous membranes Eyes PERRL and EOMs intact bilaterally Neck no lymphadenopathy and supple Resp Resp Narrative: Diminished throughout with scattered inspiratory and expiratory wheezing. Auscultation: wheezes Cardio regular rate and regular rhythm GI normal to inspection, nondistended, normoactive bowel sounds, soft to palpation, non-tender and non-distended Extremity normal to inspection, full ROM and no clubbing, cyanosis or edema Skin Skin Narrative: Patient has no evidence of rash, abscess, wounds or jaundice. Neuro oriented x3, CN's II-XII intact bilaterally, moves all extremities and no focal motor deficits Sensorium / Orientation: awake, alert, oriented to person, oriented to place and oriented to time Speech: speech normal Motor Exam: strength 5/5 throughout Psych affect normal Results Medical Records Data Attestation: I reviewed the patient's medical records Lab / Micro Data 07/22/24 00:56 07/22/24 00:56 Labs: Laboratory Results - last 24 hr 07/22/24 00:56: WBC 10.5, RBC 5.40, Hgb 15.9, Hct 45.2, MCV 83.7, MCH 29.4, MCHC 35.2, RDW Std Deviation 37.9, RDW Coeff of Christiano 12.7, Plt Count 155, MPV 9.2, Immature Gran % (Auto) 0.600, Neut % (Auto) 70.1 H, Lymph % (Auto) 16.6 L, [place] % (Auto) 7.6, Eos % (Auto) 4.4, Baso % (Auto) 0.7, Absolute Neuts (auto) 7.4, Absolute Lymphs (auto) 1.75, Nucleated RBC % 0, Sodium 141, Potassium 4.1, Chloride 104, Carbon Dioxide 21.8, Anion Gap 15, BUN 23 H, Creatinine 1.21 H, Estim Creat Clear Calc 110.15, Est GFR (MDRD) Non-Af 76, BUN/Creatinine Ratio 19.2, Glucose 94, Calcium 9.6, Troponin T High Sens 10 Micro: Microbiology 07/22/24 01:12 Mucosa - Nose SARS-CoV-2, Influenza & RSV (PCR) - Final ABG Data ABG results: ABG 07/22/24 01:07 Specimen Type ART Sample Site L Radial pH 7.38 Bicarbonate Actual 27.6 H Total CO2 29 Base Excess 3 H O2 Saturation 96 O2 % 30.0 ABG pCO2 46.6 H ABG pO2 86 Miguel Angel Test Positive O2 Delivery Device BiPAP Vent Mode Not entered Clinical Comments Imaging Radiology Impression Chest X-Ray 07/22/24 01:01 IMPRESSION: Hyperinflation again noted. No evidence of acute disease. Reading Location: [id number] Assessment & Plan Assessment/Plan (1) Asthma exacerbation: QUALIFIERS: Asthma persistence: unspecified Asthma severity: severe Qualified Code(s): J45.901 - Unspecified asthma with (acute) exacerbation (2) Acute bacterial bronchitis: (3) Acute hypoxic respiratory failure: (4) Hypophosphatemia: (5) Liver transplant recipient: (6) History of alcohol abuse: (7) Essential hypertension: PLAN: Plan 1. AE Asthma with suspected evolving Acute Bacterial Bronchitis and possible trigger by environmental toxic exposure at work to oven stove cleaner - Admit to general medical floor. Continue IV Solu-Medrol begun in ER plus scheduled and as needed nebulizers. Start doxycycline IV plus mucolytic and probiotic. Give acetaminophen prn pain or fever. Patient counseled to avoid any contact with oven stove cleaner or fumes. 2. Acute Hypoxic Respiratory Failure requiring BiPAP due to #1 - Wean BiPAP as tolerated. 3. Recent admission here from July 06, 2024 with discharge the same day after being diagnosed with AE Asthma complicated by Respiratory Insufficiency with patient recently completing his steroid taper with subsequent acute decline complicating #1 & #2 - Noted. Patient may benefit from longer inpatient stay and extended steroid taper with prescheduled outpatient follow-up with pulmonology to help minimize risk of further serial readmission given his medical complexity and increasingly brittle respiratory status. 4. Hypophosphatemia of 1.8 mmol/L present on admission compounding #1 - #3 - Patient treated with IV K-Phos. 5. History of EtOH Abuse (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); with cirrhosis and subsequent history of liver transplant; on mycophenolate mofetil BID and tacrolimus BID adding to the medical complexity of #1 - #4 - Resume current anti-rejection regimen as before. 5. Essential Hypertension; on amlodipine - Continue amlodipine as previous plus give prn hydralazine IV prn for systolic blood pressure > 160 mmHg. 6. History of cannabis abuse - Cannabis Cessation will be strongly encouraged. 7. GERD; on pantoprazole - Resume PPI. 8. Listed allergy to lisinopril (angioedema) - Noted. We will avoid LILLIE-inhibitors and ARB's to minimize risk of recurrence. 9. DVT prophylaxis - Lovenox 40 mg sq daily. Total time: Approximately (but not less than) 55 minutes. Charges/Coding Visit Charges Inpatient E&M: 09079 Init Hosp L3
[2024-07-22 04:24] LABS: Troponin T High Sens 2 HR 12 ng/L (<=22)
[2024-07-22] MEDS: 0.9% Normal Saline (1000mL) 1,000 ML 70 ML IV (04:46)
[2024-07-22] MEDS: guaiFENesin 600 MG Tablet PO ×2 (04:47→21:44)
[2024-07-22] MEDS: Doxycycline 100 MG in 0.9% Normal Saline (250mL Bag) 250 ML 250 MG IV ×2 (04:47→21:51)
[2024-07-22 05:02] LABS: Magnesium 1.6 mg/dL (1.5-2.2)
[2024-07-22 05:33] LABS: Phosphorus 1.8 mg/dL (2.7-4.5); Thyroid Stim Hormone (TSH) 0.594 uIU/mL (0.300-4.200)
[2024-07-22 05:56] LABS: Allen Test Positive; Base Excess -3 mmol/L (-2 to +2); Bicarbonate 22.1 mmol/L (22-26); Blood Gas Specimen Type ART; Mode Not entered; O2 Delivery Device Cannula; PO2 76 mmHG (75-100); SITE L Radial; SO2 95 % (95-99); Total Carbon Dioxide 23 mmol/L; pCO2 36.7 mmHg (35-45); pH 7.39 (7.35-7.45)
[2024-07-22] MEDS: Albuterol 2.5 MG/3 ML VIAL.NEB. INHALATION ×5 (07:04→23:06)
[2024-07-22] MEDS: Budesonide Respules 0.5 MG/2 ML AMPUL.NEB. INHALATION ×2 (07:04→19:37)
[2024-07-22] MEDS: Magnesium Sulfate 2 GM in Dextrose 5%-Water (100mL Bag) 100 ML IV (09:01)
[2024-07-22] MEDS: Mycophenolate Mofetil 250 MG Capsule 500 MG PO ×2 (09:14→21:44)
[2024-07-22] MEDS: Enoxaparin 40 MG/0.4 ML Syringe SC (09:14)
[2024-07-22] MEDS: Lactobacillis Acidophilus 1 CAP PO ×4 (09:14→21:44)
[2024-07-22] MEDS: amLODIPine 10 MG Tablet PO (09:15)
[2024-07-22] MEDS: Tacrolimus Anhydrous 1 MG Capsule 2 MG PO ×2 (09:15→21:44)
[2024-07-22] MEDS: Pantoprazole Sodium 40 MG Tablet PO (09:15)
[2024-07-22 10:17] LABS: Troponin T High Sens 4 HR 8 ng/L (<=22)
[2024-07-22] MEDS: Potassium Phosphate 21 MM in 0.9% Normal Saline (250mL Bag) 250 ML 84 MM IV (11:10)
--- NOTE | 2024-07-22 14:30 | CASEMGMT ---
JORGE GUTIERREZ Readmission Note Previous Admission: 07/06/24-07/06/24 Diagnosis: AE asthma and respiratory insuff DC Disposition: Home Current Admission: Admitted 07/22/24 Current Diagnosis: AE asthma with acute hypoxic respiratory insuff Pt admitted on index admission and improved quicker than expected. Pt did not have pna on CXR. Pt did not require oxygen upon dc. Pt dc'd with 5 days of prednisone. JORGE GUTIERREZ into pt room, pt sitting up in bed with oxygen on. Pt reports he did take his prednisone as ordered and finished it. Pt has not yet had a PCP f/u. Provided pt with a local healthcare directory for pulmonary providers. Pt denies need with assistance to set up an appt. Discussed should pt need oxygen upon dc, local DME providers, pt chose [employer]. Pt reports being indep at home, does not use AD. Pt denies any homegoing needs. DC Plan: Home follow for oxygen.
[2024-07-22] MEDS: 0.9% Saline Lock 10 ML Syringe IV (21:49)
[2024-07-23] MEDS: Albuterol 2.5 MG/3 ML VIAL.NEB. INHALATION ×2 (03:15→06:27)
[2024-07-23 03:16] VITALS: PULSE 88; O2SAT 97
[2024-07-23 03:37] VITALS: BP 122/78; PULSE 85; RESP 18; TEMP 36.5; O2SAT 97
[2024-07-23 05:46] VITALS: BMI 26.9
[2024-07-23 05:47] VITALS: O2SAT 96
[2024-07-23] MEDS: Budesonide Respules 0.5 MG/2 ML AMPUL.NEB. INHALATION (06:27)
[2024-07-23 06:28] VITALS: PULSE 78; RESP 18; O2SAT 95
[2024-07-23 06:54] LABS: Absolute Lymphocyte Count 0.56 X10^3/uL (0.83-4.51); Absolute Neutrophil Count 7.8 X10^3/uL (2.0-7.7); Basophil# 0.01 X10^3/uL; Basophil% 0.1 % (0-1); Hematocrit 40.4 % (40-54); Hemoglobin 13.9 g/dL (13.0-16.5); Lymphocyte # 0.56 X10^3/ul (0.83-4.51); Lymphocyte % 6.4 % (19-41); Mean Corp Hgb Conc 34.4 g/dL (32-36); Mean Corpuscular Hgb 29.2 pg (27.0-32.0); Mean Corpuscular Volume 84.9 fL (80-94); Mean Platelet Vol. 9.4 fl (6.2-12.0); Monocyte# 0.31 X10^3/uL; Monocyte% 3.6 % (0-10); NRBC Flagged by Analyzer 0 % (0-5); Neutrophil # 7.77 X10^3/uL (2.7-7.7); Neutrophil % 89.2 % (47-70); POSITIVE DIFFERENTIAL YES; Platelet Count 173 K/mm3 (150-450); RBC Distribution Width CV 12.7 % (11.6-14.6); RBC Distribution Width SD 38.7 fl (35.1-43.9); Red Blood Count 4.76 M/mm3 (4.6-6.2); White Blood Count 8.7 K/mm3 (4.4-11.0)
[2024-07-23 07:44] LABS: Magnesium 1.9 mg/dL (1.5-2.2)
[2024-07-23 07:49] LABS: ALB/GLOB Ratio 1.6 RATIO (0.9-2.4); AST(SGOT) 40 U/L (<=37); Alanine Aminotransfer ALT/SGPT 57 U/L (<=46); Albumin, Serum 4.2 g/dL (3.5-5.0); Alkaline Phosphatase 69 U/L (40-129); Anion Gap 13 (5-15); BUN 20 mg/dL (4-19); BUN/Creat Ratio 19.9 RATIO (10-20); Calcium,Total 9.1 mg/dL (7.6-11.0); Carbon Dioxide 16.5 mmol/L (21.0-32.0); Chloride 110 mmol/L (98-108); Creatinine, Serum 1.02 mg/dL (0.70-1.20); EST Glomerular Filtration Rate 93 (>60); Estimated Creatinine Clearance 77.39 ml/min (50-250); Globulin 2.6 g/dL (2.2-4.2); Glucose 174 mg/dL (70-99); Potassium 4.3 mmol/L (3.3-5.1); Protein, Total 6.8 g/dL (5.9-8.4); Sodium Level 140 mmol/L (133-145); Total Bilirubin 0.74 mg/dL (0.00-1.30)
[2024-07-23 08:00] VITALS: BP 134/83; PULSE 80; RESP 16; TEMP 36.4; O2SAT 98
[2024-07-23 08:06] VITALS: O2SAT 97; O2SAT 98
[2024-07-23 08:07] LABS: Phosphorus 2.6 mg/dL (2.7-4.5)
--- NOTE | 2024-07-23 09:13 | PCM.DC ---
Discharge Instructions Diet Discharge Diet: No restrictions DC O2, CPAP, BIPAP needs Home O2 Discharge instructions: No Dressing / Incision Discharge Activity: Return to Normal Activity Dressing / Incision Call your doctor if you observe: Fever of 101 or Higher, Shortness of breath, Dizziness, Fainting spells, Swelling in the ankles, Chest pain and Increased palpitations (irregular heartbeat) Follow Up Care Test Results: Test results from this visit will be discussed in further detail at your follow-up appointment, if applicable. Discharge Plan Admission Admit Date/Time: 07/22/24 03:40 Attending Provider: Andrea Daly Primary Care Provider: Lexi Barnes Consulting Providers: Sabino Jain Discharge Orders/Prescriptions Prescriptions: New prednisone 20 mg tablet 40 mg PO DAILY 7 Days Qty: 14 0RF Continued amlodipine [Norvasc] 10 mg tablet 10 mg PO DAILY mycophenolate mofetil [CellCept] 500 mg tablet 500 mg PO BID fluticasone propion-salmeterol 1 EACH blister with device 1 ea IH DAILY albuterol sulfate 2.5 mg /3 mL (0.083 %) solution for nebulization 2.5 mg inhalation Q4H PRN Qty: 25 0RF Rx Instructions: Use q4 hours and PRN for wheezing tacrolimus 1 mg capsule 2 mg PO BID Referrals / Follow Up: Lexi Barnes MD [Primary Care Provider] - Within 1 Week Echo Michael NP, HOSPICE SUPERINTENDENT-C [Med Staff - [facility] Practice Prof] - Within 1 Month Disposition Disposition (needs filled in before D/C Order can be placed): Home, Self Care
--- NOTE | 2024-07-23 09:57 | CASEMGMT ---
Pt to dc today, pt did not require home oxygen.
[2024-07-23] MEDS: Tacrolimus Anhydrous 1 MG Capsule 2 MG PO (10:14)
[2024-07-23] MEDS: Pantoprazole Sodium 40 MG Tablet PO (10:14)
[2024-07-23] MEDS: Lactobacillis Acidophilus 1 CAP PO (10:14)
[2024-07-23] MEDS: Mycophenolate Mofetil 250 MG Capsule 500 MG PO (10:14)
[2024-07-23] MEDS: guaiFENesin 600 MG Tablet PO (10:14)
[2024-07-23] MEDS: amLODIPine 10 MG Tablet PO (10:15)
[2024-07-23] MEDS: MethylPREDNISolone 125 MG/2 ML Vial 60 MG IV (10:15)
[2024-07-23] MEDS: Enoxaparin 40 MG/0.4 ML Syringe SC (10:16)
--- NOTE | 2024-07-23 12:30 | DS.PCM_ITS ---
Providers Date of Admission: 07/22/24 Primary Care Physician: Dr. Lexi Barnes MD Reason For Visit: AE ASTHMA WITH ACUTE HYPOXIC RESPIRATORY Diagnosis Discharge Diagnosis (1) Asthma exacerbation: Status: Acute Code(s): J45.901 - Unspecified asthma with (acute) exacerbation Qualifiers: Asthma persistence: unspecified Asthma severity: severe Qualified Code(s): J45.901 - Unspecified asthma with (acute) exacerbation (2) Liver transplant recipient: Status: Acute Code(s): Z94.4 - Liver transplant status (3) History of alcohol abuse: Status: Acute Code(s): F10.11 - Alcohol abuse, in remission (4) Essential hypertension: Status: Acute Code(s): I10 - Essential (primary) hypertension Medications at Discharge Home Medications fluticasone 100 mcg-salmeterol 50 mcg/dose blistr powdr for inhalation 1 ea IH DAILY breathing 01/04/19 amlodipine 10 mg tablet (Norvasc) 10 mg PO DAILY blood pressure 05/20/22 mycophenolate mofetil 500 mg tablet (CellCept) 500 mg PO BID liver transplant 05/20/22 albuterol sulfate 2.5 mg/3 mL (0.083 %) solution for nebulization 2.5 mg (3 mL) inhalation Q4H PRN #25 vials 02/03/24 tacrolimus 1 mg capsule, immediate-release 2 mg PO BID liver transplant 02/03/24 prednisone 20 mg tablet 40 mg (2 x 20 mg) PO DAILY 7 days #14 tabs 07/23/24 Hospital Course Operations None Procedures None Summary of Care Provided Minutes Spent on Discharge: 33 Hospital Course: Per HPI: DANNY BEDOYA, is a 44 M with a past medical history of essential hypertension; on amlodipine, history of EtOH Abuse (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); with cirrhosis, history of liver transplant; on mycophenolate mofetil BID and tacrolimus BID, history of cannabis abuse, GERD; on pantoprazole, history of asthma; on prednisone taper listed allergy to lisinopril (angioedema) and recent admission here from July 06, 2024 with discharge the same day after being diagnosed with AE Asthma complicated by Respiratory Insufficiency who re- presents to [facility] ER complaining of SOB. Mr. Bedoya reports his symptoms began approximately one day prior to admission with the sudden-onset of SOB and wheezing that progressively worsened throughout the day. 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 He also admits to cough productive of sputum that has been clear and is now greenish yellow. He admits he recently finished his course of steroids a few days ago with a subsequent worsening of his symptoms. He denies associated fever, chills, runny nose, nausea, vomiting, diarrhea, constipation, abdominal pain, chest pain, rash or headache. In the ER he was diagnosed with AE Asthma with clinical evidence of Acute Hypoxic Respiratory Failure requiring BiPAP with a CXR negative for acute pathologic changes and he was then admitted to the general medical floor for ongoing care for a stay that is expected to extend beyond 2 midnights. Hospital Course: 1. Acute hypoxic respiratory insufficiency secondary to an acute exacerbation of asthma?44-year-old male with a history of a liver transplant for cirrhosis presented to the hospital with increasing shortness of breath. He had just been in the hospital a couple weeks prior for influenza causing exacerbation of his asthma. He was placed on doxycycline and steroids with breathing treatments, and he had significant improvement very quickly and is on room air today both at rest and with ambulation. 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 Also recommend continuation of his home inhalers and place him on a 7-day course of prednisone with outpatient follow-up with his PCP. He is on antirejection medications for his liver transplant. He was negative for COVID, flu, RSV and his respiratory panel was negative. Chest x-ray was negative for any consolidation or pneumonia. He remained afebrile without a leukocytosis. He expressed understanding the risks and benefits of going home and would like to go home today. 2. History of liver transplant, essential hypertension, are all chronic medical conditions which complicate his care. His home medications were continued where appropriate Physical Exam Narrative General: Alert, Oriented x3, Cooperative, No apparent distress HEENT: Atraumatic, PERRLA, EOMI, Normocephalic Oral: Moist Mucosa Neck: Supple, No JVD Lungs: Diminished, Normal air movement, No rhonchi, scattered wheeze, No rales Cardiovascular: Regular rate, Regular Rhythm, Normal S1, Normal S2, No murmurs Abdomen: Soft, Non Tender, Non-Distended, No Hepato-splenomegaly Extremities: No edema, Capillary Refill Less than 3 Seconds Skin: No rashes, No breakdown Musculoskeletal: No Tenderness to Palpation of Joints or Extremities Neurological: No focal neurological deficits, Motor Exam 5/5 strength throughout, Sensory exam intact to light touch and pain Psych/Mental Status: Normal Affect, Appropriate Weight / BMI Weight Weight: 156 lb 8.451 oz Body Mass Index (BMI) 26.9 ABG / Lab / Microbiology Data 07/23/24 06:14 07/23/24 06:14 Laboratory: Laboratory Results - last 24 hr 07/23/24 06:14: WBC 8.7, RBC 4.76, Hgb 13.9, Hct 40.4, MCV 84.9, MCH 29.2, MCHC 34.4, RDW Std Deviation 38.7, RDW Coeff of Christiano 12.7, Plt Count 173, MPV 9.4, Immature Gran % (Auto) 0.700, Neut % (Auto) 89.2 H, Lymph % (Auto) 6.4 L, [place] % (Auto) 3.6, Eos % (Auto) 0.0, Baso % (Auto) 0.1, Absolute Neuts (auto) 7.8 H, A bsolute Lymphs (auto) 0.56 L, Nucleated RBC % 0, Sodium 140, Potassium 4.3, C hloride 110 H, Carbon Dioxide 16.5 L, Anion Gap 13, BUN 20 H, Creatinine 1.02, Estim Creat Clear Calc 77.39, Est GFR (MDRD) Non-Af 93, BUN/Creatinine Ratio 19.9, Glucose 174 H, Calcium 9.1, Phosphorus 2.6 L, Magnesium 1.9, Total Bilirubin 0.74, AST 40 H, ALT 57 H, Alkaline Phosphatase 69, Total Protein 6.8, Albumin 4.2, Globulin 2.6, Albumin/Globulin Ratio 1.6 Microbiology: Microbiology 07/22/24 03:15 Mucosa - Nose Respiratory Panel (PCR) - Final 07/22/24 01:12 Mucosa - Nose SARS-CoV-2, Influenza & RSV (PCR) - Final D/C Instructions Discharge Diet: No restrictions Call your doctor if you observe: Fever of 101 or Higher, Shortness of breath, Dizziness, Fainting spells, Swelling in the ankles, Chest pain and Increased palpitations (irregular heartbeat) DC O2, CPAP, BIPAP Needs PSN CPAP & BiPAP: BiPAP & CPAP Settings per PSN Mode AVAPS 07/22/24 00:51 Bipap Delivery Device Face Mask 07/22/24 00:51 BiPAP Expiratory Pressure 8 07/22/24 00:51 BiPAP Rate 12 07/22/24 00:51 Fraction of Inspired Oxygen ( 30 07/22/24 00:51 FIO2) Home O2 Discharge instructions: No Meaningful Use Info Meaningful Use Meaningful Use Diagnoses (Choose all that apply): None applicable Ischemic Stroke Statin Dosing Therapy Reference: STATIN DOSE THERAPY REFERENCE: * Patients > 75 years receive moderate or high dose statin therapy. * Patients 75 years or YOUNGER should receive HIGH intensity statin dose unless contraindicated. You will be required to document reason for non-treatment if statin daily dose does not meet guidelines. HIGH DOSE STATIN THERAPY DAILY Atorvastatin > than or = to 40 mg Rosuvastatin > than or = to 20 mg Amlodipine + Atorvastatin > than or = to 2.5/40 mg Ezetimibe + Simvastatin 10/80 mg Simvastatin 80mg Discharge Plan Admission Admit Date/Time: 07/22/24 03:40 Attending Provider: Andrea Daly Primary Care Provider: Lexi Barnes Consulting Providers: Sabino Jain Discharge Orders/Prescriptions Prescriptions: New prednisone 20 mg tablet 40 mg PO DAILY 7 Days Qty: 14 0RF Continued amlodipine [Norvasc] 10 mg tablet 10 mg PO DAILY mycophenolate mofetil [CellCept] 500 mg tablet 500 mg PO BID fluticasone propion-salmeterol 1 EACH blister with device 1 ea IH DAILY albuterol sulfate 2.5 mg /3 mL (0.083 %) solution for nebulization 2.5 mg inhalation Q4H PRN Qty: 25 0RF Rx Instructions: Use q4 hours and PRN for wheezing tacrolimus 1 mg capsule 2 mg PO BID Referrals / Follow Up: Lexi Barnes MD [Primary Care Provider] - Within 1 Week Echo Michael NP, BAG LINER-C [[facility]] - Within 1 Month Disposition Disposition (needs filled in before D/C Order can be placed): Home, Self Care Charges/Coding Visit Charges Inpatient E&M: 86936 Disch Hosp >30min
== END 2024-07-23 11:04 | disposition home or self-care (01) | DRG 189 ==
LOC: ED 03:12 → MS3 03:51
PROVIDERS: Admitting Provider Internal Medicine; Emergency Provider Emergency Medicine; PCP Internal Medicine; Visit Provider Family Medicine
DX: J96.01 Acute respiratory failure with hypoxia (principal); J45.51 Severe persistent asthma with (acute) exacerbation; Z94.4 Liver transplant status; E83.39 Other disorders of phosphorus metabolism; F10.11 Alcohol abuse, in remission; I10 Essential (primary) hypertension; F12.10 Cannabis abuse, uncomplicated; J20.9 Acute bronchitis, unspecified; K21.9 Gastro-esophageal reflux disease without esophagitis; Z82.5 Family history of asthma and other chronic lower respiratory diseases; Z88.8 Allergy status to other drugs, medicaments and biological substances; R05.9 Cough, unspecified; Z11.52 Encounter for screening for COVID-19
CPT/HCPCS: 36415; 36600; 71045; 80048; 80053; 82803; 83735; 84100; 84443; 84484; 85025; 87631; 87633; 93005; 94002; 94640; 94668; 94762; 99252; 99285; A4216; G0463

== ENCOUNTER 2024-10-08 02:07 | Observation (INO) | payer OTHER, SELFPAY ==
[2024-10-08] VITALS (21 sets, daily range): BP systolic 132–160; BP diastolic 69–100; PULSE 58–114; RESP 16–20; TEMP 36.5–36.9; O2SAT 88–97; BMI 26.6; BMI 27.4
--- NOTE | 2024-10-08 02:14 | ED.VIS.DYS ---
HPI History of Present Illness Chief Complaint: Asthma Detail of Chief Complaint: Difficulty breathing with wheezing, history of asthma Informant: patient, spouse/S.O. and EMS Onset/Context/Timing Onset: Today Context: sudden Timing: Continuous Quality: Positive for Dyspnea on exertion and Wheezing; Negative for Orthopnea or PND Current Severity: Moderate Maximum Severity: Severe Worsened by: Exertion Relieved by: Nothing Associated Symptoms cough; Negative for rhinorrhea, post nasal drip, ear pain, fever, sore throat, subjective, chills, sweats, clear sputum, white sputum, yellow sputum or green sputum Chest Pain: Positive for None Narrative Narrative: Patient is a 44-year-old male. He has environmental allergies and history of asthma. He states he was kayaking yesterday. He is wondering if this may be the cause of his trouble breathing. He has been on prednisone within the last 3 months. He denies upper respiratory tract infectious symptoms. He denies fever or chills. He denies night sweats. Patient's answers were limited to 2-3 words because he is in respiratory distress with use of accessory muscles and mild supraclavicular retractions. Also, patient has mild intercostal retractions. There is no history of VTE. He has no risk factors for VTE. PE Risk Factors: Negative for Cancer, OCP + Smoking + > 35, Prior DVT or PE, Recent immobilization, Recent surgery or Recent travel Prior similar symptoms: Yes (Asthma) Recent Illness/Hospitalization: Yes (Last ER visit was July 22, 2024. He was admitted at that time. ) [facility] Medical History Cirrhosis Asthma Alcohol abuse Angioedema Home Medications Medication Instructions Recorded Last Taken Type fluticasone 100 mcg-salmeterol 50 1 ea IH DAILY breathing 01/04/19 07/21/24 History mcg/dose blistr powdr for inhalation mycophenolate mofetil 500 mg 500 mg PO BID liver transplant 05/20/22 07/21/24 History tablet (CellCept) albuterol sulfate 2.5 mg/3 mL 2.5 mg (3 mL) inhalation Q4H PRN 02/03/24 07/22/24 Rx (0.083 %) solution for nebulization #25 vials tacrolimus 1 mg capsule, 2 mg PO BID liver transplant 02/03/24 07/21/24 History immediate-release Allergy/AdvReac Type Severity Reaction Status Date / Time lisinopril Allergy Angioedema Verified 10/08/24 02:10 Family History Father Alcoholism Asthma Mother Asthma Grandmother Cancer brain Surgical History Hx of liver transplant Social History household members: none current occupational status: employed 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 [employer] Smoking Status: Never smoker Electronic Cigarette Use: not used alcohol intake: former details: former heavy drinker, 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 substance use type: marijuana what type of physical activity do you participate in: none do you feel safe at home: Yes ROS ROS ED Constitutional Constitutional ED: Denies chills, fever(s), sweats or weight loss Eyes Eyes: Denies blurry vision or change in vision ENT ENT ED: Denies ear pain, rhinorrhea or sore throat Cardiovascular Cardiovascular: Denies chest pain, orthopnea, palpitations or paroxysmal nocturnal dyspnea Respiratory/Chest Respiratory/Chest: Reports cough, dyspnea, dyspnea on exertion and other Details: Respiratory distress with wheezing ; Denies orthopnea, paroxysmal nocturnal dyspnea or sputum Gastrointestinal Gastrointestinal: Denies abdominal pain, nausea or vomiting Musculoskeletal Musculoskeletal: Denies arthralgias or myalgias Integumentary Denies rash Neurologic Neurologic: Denies paresthesias or weakness Psychiatric Psychiatric: Reports anxiety; Denies depression Endocrine Endocrinology: Denies cold intolerance or heat intolerance Hematologic/Lymphatic Hematologic/Lymphatic: Denies easy bleeding or easy bruising EXAM Physical Exam Const Vital Signs: 10/08/24 02:10 10/08/24 02:13 10/08/24 02:13 Temperature 98.5 F 98.5 F Temperature Source Oral Oral Pulse Rate 102 H 103 H Respiratory Rate 20 H 20 H Respiratory Effort Short of Breath Labored Respiratory Depth Shallow Respiratory Pattern Tachypnea Blood Pressure 144/99 H Blood Pressure Mean 114 Pulse Ox 92 93 Oxygen Delivery Method Room Air Room Air Room Air Oxygen Flow Rate (L/min) 10/08/24 02:15 10/08/24 02:25 10/08/24 03:15 Temperature 98.3 F Temperature Source Oral Pulse Rate 114 H 94 Respiratory Rate 18 18 Respiratory Effort Respiratory Depth Respiratory Pattern Normal Blood Pressure 135/82 H Blood Pressure Mean 99 Pulse Ox 92 91 Oxygen Delivery Method Room Air Room Air Oxygen Flow Rate (L/min) 10/08/24 03:57 10/08/24 04:00 Temperature 98.3 F Temperature Source Oral Pulse Rate 76 Respiratory Rate 18 Respiratory Effort Respiratory Depth Respiratory Pattern Blood Pressure 132/86 H Blood Pressure Mean 101 Pulse Ox 92 95 Oxygen Delivery Method Nasal Cannula Room Air Oxygen Flow Rate (L/min) 1 Positive well nourished and well developed Constitutional Narrative: Patient is in respiratory distress with use of accessory muscles, supraclavicular retractions and intercostal retractions. Patient used his metered-dose inhaler as well as nebulizer. He had no improvement. He arrived by squad. He was on oxygen. EMS report is not available. His room air pulse ox is unknown. Will check pulse ox on room air and obtain ABG since he is not moving much air. General Appearance ED: well developed; Negative for NAD or pallor HEENT Reports dry mucous membranes atraumatic Mouth ED: Yes dry mucous membranes Mouth: dry mucous membranes Eyes PERRL and EOMs intact bilaterally General Eye ED: Negative for pale conjunctiva or scleral icterus Neck no lymphadenopathy, supple, no meningeal signs and no JVD Neck Narrative: Trachea is midline. There is no inspiratory expiratory stridor. Resp No clear to auscultation bilaterally Resp Narrative: Respiratory distress as previously described. Decreased air movement with increased expiratory phase. Effort and Inspection: Negative for pain with movement Auscultation: wheezes expiratory wheezes and throughout and diminished lung sounds bilateral Cardio regular rhythm, S1 normal heart sound, S2 normal heart sound and no murmurs Rate: tachycardic GI non-tender, non-distended and no masses Palpation: soft Back/Spine no CVA tenderness Extremity normal to inspection Extremity Narrative: There is no asymmetry, swelling, discoloration, leg vein distention, palpable cords or tenderness along the distribution of the deep venous system. Neuro oriented x3 and CN's II-XII intact bilaterally Aleshia Coma Scale: document GCS findings Spontaneous Obeys Commands Oriented 15 Sensorium / Orientation: alert Speech: speech normal Psych Mood & Affect: anxious Skin no wounds and skin turgor normal General Skin Exam: Negative for jaundice or pallor Lesions: no lesions Rashes: no rashes MDM MDM MDM Narrative Medical decision making narrative: Patient with acute exacerbation of his asthma with wheezing and respiratory distress. Since he has recently been on prednisone we will treat with 125 mg Solu-Medrol as well as DuoNeb and albuterol treatments. Chest x-ray was obtained to assess for pneumonia, pneumothorax. CBC to assess white count differential as well as H&H rule out anemia. Electrolyte panel was obtained to assess for endorgan dysfunction. Review of records indicates patient is a liver recipient. He is on immunosuppressive meds. History & Record Review Additional record(s) reviewed:: Prior outpatient record, Prior ED visit, Prior labs and Other (Documented in the HPI narrative.) Lab Data Attestation: I reviewed the patient's lab results. Lab results narrative: CBC is remarkable for eosinophilia. This may be due to the fact that patient had environmental exposure and does have history of extrinsic asthma. Labs: Laboratory Results - last 24 hr 10/08/24 02:23 WBC 6.0 RBC 5.03 Hgb 14.9 Hct 43.1 MCV 85.7 MCH 29.6 MCHC 34.6 RDW Std Deviation 40.2 RDW Coeff of [place] 13.1 Plt Count 186 MPV 9.2 Immature Gran % (Auto) 0.500 Neut % (Auto) 55.7 Lymph % (Auto) 23.7 [place] % (Auto) 9.7 Eos % (Auto) 9.2 H Baso % (Auto) 1.2 H Absolute Neuts (auto) 3.3 Absolute Lymphs (auto) 1.42 Nucleated RBC % 0 Sodium 138 Potassium 3.9 Chloride 106 Carbon Dioxide 19.8 L Anion Gap 13 BUN 22 H Creatinine 1.10 Estim Creat Clear Calc 71.76 Est GFR (MDRD) Non-Af 85 BUN/Creatinine Ratio 19.9 Glucose 97 Calcium 9.4 ABG Data Attestation: I personally reviewed and interpreted this ABG as follows: Interpretation: ABG reveals an increased AA gradient. I was informed by the respiratory therapist that patient had a drop in his oxygen saturation 88%. He is presently on 2 L saturating at 91% when I reassessed him at 0413. ABG results: ABG 10/08/24 03:16 Specimen Type ART Sample Site R Radial pH 7.43 Bicarbonate Actual 20.9 L Total CO2 22 Base Excess -4 L O2 Saturation 90 L ABG pCO2 31.6 L ABG pO2 57 L [place] Angel Test Positive O2 Delivery Device Room Air Vent Mode Not entered Radiography Chest X-Ray - ED: 2 View, Read by ED Physician (Interpreted by me at 0315.), Unchanged, Heart, Lungs (There is some hyperaeration and minimal chronic changes noted.), Mediastinum, Bony Structures and Chronic Changes Diagnostic Testing: Clinical Impression(s) from Imaging Studies Chest X-Ray 10/08/24 02:50 IMPRESSION: No evidence for acute abnormality. Reading Location: [place] [id number] Rhythm Strip Rhythm Strip: Sinus Tach Rate: 103 EKG Initial EKG: Attestation: I personally reviewed and interpreted this EKG as follows: Interpretation: Sinus Rhythm (Rate is 100. FL interval is under 60 ms. QS duration 84 ms. QT duration 246 ms. [place] is normal. Patient probably has left atrial enlargement.) Management Discussion w/another healthcare provider: Hospitalist (Case was discussed with Dr. Smith. Observation status [facility].) Treatment and Re-Evaluation :: Patient was reassessed at 0411. His respiratory rate has improved. He no longer has retractions. There is no use of accessory muscles. He has slight wheezing noted on expiration at this point. Because he is requiring 2 L of oxygen and is not normally on oxygen hospitalist was paged for admission. Discharge Plan Dx/Rx/DC Orders Clinical Impression: Asthma, extrinsic with exacerbation, Essential hypertension, Liver transplant recipient, Hypoxemia, Acute respiratory distress, Sinus tachycardia seen on managing attorney Disposition Disposition: Acute Care [facility]
[2024-10-08] MEDS: Ipratropium/Albuterol Sulfate 3 ML AMPUL.NEB INHALATION ×6 (02:24→23:55)
[2024-10-08] MEDS: MethylPREDNISolone 125 MG/2 ML Vial IV (02:27)
[2024-10-08] MEDS: Albuterol 2.5 MG/3 ML VIAL.NEB. INHALATION ×3 (02:37)
[2024-10-08 02:41] LABS: Absolute Lymphocyte Count 1.42 X10^3/uL (0.83-4.51); Absolute Neutrophil Count 3.3 X10^3/uL (2.0-7.7); Basophil# 0.07 X10^3/uL; Basophil% 1.2 % (0-1); Eosinophil# 0.55 X10^3/uL; Eosinophils% 9.2 % (0-5); Hematocrit 43.1 % (40-54); Hemoglobin 14.9 g/dL (13.0-16.5); Lymphocyte # 1.42 X10^3/ul (0.83-4.51); Lymphocyte % 23.7 % (19-41); Mean Corp Hgb Conc 34.6 g/dL (32-36); Mean Corpuscular Hgb 29.6 pg (27.0-32.0); Mean Corpuscular Volume 85.7 fL (80-94); Mean Platelet Vol. 9.2 fl (6.2-12.0); Monocyte# 0.58 X10^3/uL; Monocyte% 9.7 % (0-10); NRBC Flagged by Analyzer 0 % (0-5); Neutrophil # 3.34 X10^3/uL (2.7-7.7); Neutrophil % 55.7 % (47-70); Platelet Count 186 K/mm3 (150-450); RBC Distribution Width CV 13.1 % (11.6-14.6); RBC Distribution Width SD 40.2 fl (35.1-43.9); Red Blood Count 5.03 M/mm3 (4.6-6.2)
--- NOTE | 2024-10-08 02:50 | RAD_ITS ---
PROCEDURE: CHEST PA AND LATERAL 10/08/2024 REASON FOR EXAM: RESPIRATORY DISTRESS WITH WHEEZING THROUGHOUT TECHNIQUE: Frontal and lateral views of the chest. COMPARISON: 07/05/2024. FINDINGS: The lungs are emphysematous. There is no demonstrated acute parenchymal abnormality. Blunting of the costophrenic angles, probably adhesions. Normal heart and pericardium. Normal mediastinum and paula. Normal visualized pulmonary arteries. Normal visualized aortic arch and descending thoracic aorta. Normal visualized thoracic spine. Normal visualized ribs, clavicles, and shoulders. There is no demonstrated abnormality of the visualized soft tissue structures of the upper abdomen. RAD/Chest PA and Lateral IMPRESSION: No evidence for acute abnormality. Reading Location: [place]
[2024-10-08 02:55] LABS: Anion Gap 13 (5-15); BUN 22 mg/dL (4-19); BUN/Creat Ratio 19.9 RATIO (10-20); Calcium,Total 9.4 mg/dL (7.6-11.0); Carbon Dioxide 19.8 mmol/L (21.0-32.0); Chloride 106 mmol/L (98-108); EST Glomerular Filtration Rate 85 (>60); Estimated Creatinine Clearance 71.76 ml/min (50-250); Glucose 97 mg/dL (70-99); Potassium 3.9 mmol/L (3.3-5.1); Sodium Level 138 mmol/L (133-145)
[2024-10-08 03:19] LABS: Allen Test Positive; Base Excess -4 mmol/L (-2 to +2); Bicarbonate 20.9 mmol/L (22-26); Blood Gas Specimen Type ART; Mode Not entered; O2 Delivery Device Room Air; PO2 57 mmHG (75-100); SITE R Radial; SO2 90 % (95-99); Total Carbon Dioxide 22 mmol/L; pCO2 31.6 mmHg (35-45); pH 7.43 (7.35-7.45)
--- OUTSIDE RECORDS SUMMARY | 2024-10-08 03:34 | XMS RPT_ITS | CCD ---
Author Organization [facility]iniSy[facility] Care Team Providers Care Bridge Game Director Name Role Phone Care Physician, No Primary Primary Care Provider Unavailable Care Physician, No Primary Referring Provider Un available Dr. Lexi Barnes Attending Provider PHYSICIAN, NOT RECORDED Primary Care Physician U navailable PHYSICIAN, NOT RECORDED Primary Care Unavaila YVONNE Walters DO Attending Unavailable Unavailable Primary Care Provider Unavailabl DANY Ivey Attending Unavailable SELF Referring Unavailable LAUREN CUEVAS Referring Unavailable Dr. Lexi Barnes MD Primary Care Provider BRYCE DUNN Other Provider LAUREN CUEVAS Attending Provider LAUREN CUEVAS Referring Provider [phone] Douglas Cruz DO Attending Provider Dr. Douglas Cruz DO Referring Provider Dr. Douglas Cruz DO Emergency Provider Dr. Jam Jiang DO Emergency Provider Dr. Lisa Jain DO Admit Provider Unavail able Dr. Lisa Jain DO Attending Provider Zeniav ailDr. Lisa Sexton DO Other Provider Unavail able Dr. Natalie Dasilva DO Attending Provider Dr. Natalie Jeffery DO Emergency Provider Dr. Lisa Jain DO Attending Provider Unav aillars Daly MD, Dr. Andrea Kunz Attending Provider Dr. Andrea Daly MD Other Provider Lisa Jain Consulting Unavailable Lisa Jain Attending Unavailable Lisa Jain Admitting Unavailable Molly, Lexi Primary Care Unavailable Lisa Jain Consulting Unavailable Lisa Jain Attending Unavailable Lisa Jain Admitting Unavailable Molly, Lexi Primary Care Unavailable Andrea Daly Consulting Unavailable Andrea Daly Attending Unavailable CECILIA, CHRISTIANO Referring Unavailable CECILIA, CHRISTIANO Consulting Unavailable CECILIA, CHRISTIANO Attending Unavailable Ragland, Lexi Primary Care Unavailable Kirit Moreira Attending Unavailable Ragland, Lexi Primary Care Unavailable CECILIA, CHRISTIANO Referring Unavailable CECILIA, CHRISTIANO Consulting Unavailable CECILIA, CHRISTIANO Attending Unavailable Ragland, Lexi Primary Care Unavailable CECILIA, CHRISTIANO Referring Unavailable CECILIA, CHRISTIANO Consulting Unavailable CECILIA, CHRISTIANO Attending Unavailable Molly, Lexi Primary Care Unavailable Lisa Jain Consulting Unavailable Lisa Jain Admitting Unavailable Ragland, Lexi Primary Care Unavailable Natalie Dasilva Attending Unavailable Lisa Jain Consulting Unavailable Lisa Jain Admitting Unavailable Ragland, Lexi Primary Care Unavailable Andrea Daly Attending Unavailable Molly, Lexi Primary Care Unavailable Douglas Cruz Attending Unavailabl e Douglas Cruz Referring Unavailabl e Allergies Allergy Classification Reported Allergen(s) Allergy Type Date of Onset Reaction(s) Facility (12 sources) Lisinopril; Translations: [LISINOPRIL] Drug Allergy 1 [facility] (1 source) Environmental allergies [Other] Propensity to adverse reactions 9 [facility] (2 sources) OTHER; Translations: [OTHER] Propensity to adverse reactions (disorder) 9 [facility] (1 source) Lisinopril Drug Allergy 5 [facility] Medications Current Medications Medication Drug Class(es) Dates Sig (Normalized) Sig (Original) albuterol 0.83 mg/ml inhalation solution (20 sources) beta2-Adrenergic Agonist Start: 08-12-2017 albuterol (PROVENTIL) 2.5 mg /3 mL (0.083 %) nebulizer solution Indications: Viral URI with cough , Mild intermittent asthma with acute exacerbation Use 3 mL via nebulizer every 6 hours as needed for Wheezing/Shortness of Breath. 90 mL 5 08/12/2017 Active Start: 12-16-2016 End: 02-03-2024 take 2.5 mg by inhalation every four hours as needed for dyspnea Albuterol Sulfate 2.5 MG/3 ML solution for nebulization Discontinued 2.5 mg INHALATION EVERY 4 HOURS NEEDED as needed for Difficulty breathing or wheezi January 19, 2017 11:26am February 03, 2024 2:06pm Start: 01-28-2014 End: 12-24-2014 Albuterol Sulfate 2.5 MG/3 M L Vial.Neb. Discontinued 1 NMA INHALATION EVERY 4 HOURS NEEDED as needed for Sob &/Or Wheezing 60 July 19, 2014 9:17am December 24, 2014 9:59am dispense 1 box Start: 01-28-2014 End: 12-24-2014 Albuterol Sulfate Discontinu ed 1 UDC INHALATION EVERY 4 HOURS NEEDED 60 July 19, 2014 8:17am December 24, 2014 8:59am dispense 1 box Start: 08-02-2013 End: 01-19-2017 Albuterol Sulfate (Ventolin Hfa) 1 INHALER inhaler Discontinued 2 NMA INHALATION EVERY 4 HOURS NEEDED as needed for Asthma December 24, 2014 9:59am January 19, 2017 11:26am Start: 08-02-2013 End: 01-19-2017 take 1 puff(s) by inhalation every four hours as needed Albuterol Sulfate (Ventolin Hfa) 1 INHALER inhaler Discontinued 2 PUFF INHALATION EVERY 4 HOURS NEEDED December 24, 2014 8:59am January 19, 2017 10:26am amLODIPine 10 mg oral tablet (10 sources) Dihydropyridine Calcium Channel Akbar Start: 05-20-2022 take 1 tablet by mouth once daily Amlodipine (Norvasc) 10 mg tablet Active 10 mg PO DAILY May 20, 2022 1:00am fluticasone propionate 0.05 mg/actuat metered dose nasal spray (1 source) Corticosteroid Start: 11-07-2016 take 2 spray(s) by mouth once daily fluticasone (FLONASE) 50 mcg/actuation nasal spray Indications: Acute seasonal allergic rhinitis, unspecified trigger Use 2 Sprays in each nostril once daily. Rinse mouth after use. 1 Bottle 11 11/07/2016 Active 120 actuat fluticasone propionate 0.115 mg/actuat / salmeterol 0.021 mg/actuat metered dose inhaler (20 sources) Corticosteroid, beta2-Adrenergic Agonist Start: 04-09-2022 take 2 puff(s) by inhalation twice daily fluticasone-salm eterol HFA (ADVAIR HFA) 115-21 mcg/actuation inhaler Inhale 2 Puffs as instructed two times a day. 04/09/2022 Active Start: 01-04-2019 take 1 dose by inhal ation once daily Fluticasone Propion-Salmeterol 1 EACH blister with device Active 1 NMA IH DAILY January 04, 2019 12:00am Start: 01-04-2019 Fluticasone Pr opion-Salmeterol Active 1 EACH IH DAILY January 04, 2019 12:00am Start: 01-04-2019 Fluticasone Pr opion-Salmeterol Active 1 EACH IH DAILY January 03, 2019 11:00pm Start: 12-24-2014 End: 01-19-2017 take 1 puff(s) by inhalation twice daily Fluticasone Propion-Salmeterol (Advair Diskus) 1 PUFF inhaler Discontinued 1 NMA INHALATION TWICE A DAY December 24, 2014 9:59am January 19, 2017 11:25am Start: 12-24-2014 End: 01-19-2017 take 1 puff(s) by inhalation twice daily Fluticasone Propion-Salmeterol (Advair Diskus) 1 PUFF inhaler Discontinued 1 PUFF INHALATION TWICE A DAY December 24, 2014 9:59am January 19, 2017 11:25am Start: 12-24-2014 End: 01-19-2017 take 1 puff(s) by inhalation twice daily Fluticasone Propion-Salmeterol (Advair Diskus) 1 PUFF inhaler Discontinued 1 PUFF INHALATION TWICE A DAY December 24, 2014 8:59am January 19, 2017 10:25am Start: 07-19-2014 End: 12-24-2014 take 1 puff(s) by inhalation twice daily Fluticasone Propion-Salmeterol (Advair Diskus) 1 PUFF inhaler Discontinued 1 NMA INHALATION TWICE A DAY July 19, 2014 9:17am December 24, 2014 9:59am Start: 07-19-2014 End: 12-24-2014 take 1 puff(s) by inhalation twice daily Fluticasone Propion-Salmeterol (Advair Diskus) 1 PUFF inhaler Discontinued 1 PUFF INHALATION TWICE A DAY July 19, 2014 9:17am December 24, 2014 9:59am Start: 07-19-2014 End: 12-24-2014 take 1 puff(s) by inhalation twice daily Fluticasone Propion-Salmeterol (Advair Diskus) 1 PUFF inhaler Discontinued 1 PUFF INHALATION TWICE A DAY July 19, 2014 8:17am December 24, 2014 8:59am Start: 01-29-2014 End: 07-19-2014 take 1 puff(s) by inhalation twice daily Fluticasone Propion-Salmeterol (Advair Diskus) 1 PUFF inhaler Discontinued 1 NMA INHALATION TWICE A DAY January 29, 2014 9:27am July 19, 2014 9:17am Start: 01-29-2014 End: 07-19-2014 take 1 puff(s) by inhalation twice daily Fluticasone Propion-Salmeterol (Advair Diskus) 1 PUFF inhaler Discontinued 1 PUFF INHALATION TWICE A DAY January 29, 2014 9:27am July 19, 2014 9:17am Start: 01-29-2014 End: 07-19-2014 take 1 puff(s) by inhalation twice daily Fluticasone Propion-Salmeterol (Advair Diskus) 1 PUFF inhaler Discontinued 1 PUFF INHALATION TWICE A DAY January 29, 2014 8:27am July 19, 2014 8:17am Start: 08-02-2013 End: 01-29-2014 take 1 puff(s) by inhalation twice daily Fluticasone Propion-Salmeterol (Advair Diskus) 1 PUFF inhaler Discontinued 1 NMA INHALATION TWICE A DAY August 02, 2013 12:00am January 29, 2014 9:27am Start: 08-02-2013 End: 01-29-2014 take 1 puff(s) by inhalation twice daily Fluticasone Propion-Salmeterol (Advair Diskus) 1 PUFF inhaler Discontinued 1 PUFF INHALATION TWICE A DAY August 02, 2013 12:00am January 29, 2014 9:27am Start: 08-02-2013 End: 01-29-2014 take 1 puff(s) by inhalation twice daily Fluticasone Propion-Salmeterol (Advair Diskus) 1 PUFF inhaler Discontinued 1 PUFF INHALATION TWICE A DAY August 01, 2013 11:00pm January 29, 2014 8:27am mycophenolate mofetil 500 mg oral tablet (11 sources) Start: 05-20-2022 take 1 tablet by mouth twice daily Mycophenolate Mofetil (Cellcept) 500 mg tablet Active 500 mg PO TWICE A DAY May 20, 2022 1:00am take 1 capsule by mouth twice da ag mycophenolate mofetil (CELLCEPT) 250 mg capsule Take 250 mg by mouth two times a day. Active tacrolimus 1 mg oral capsule (14 sources) Calcineurin Inhibitor Immunosuppressant Start: 02-03-2024 take 2 capsules by mouth twice daily Tacrolimus 1 mg capsule Active 2 mg PO TWICE A DAY February 03, 2024 12:00am Start: 05-20-2022 take 1 capsule by mo ut twice daily after mealtime Tacrolimus 1 mg capsule,extended release 24hr Active 2 mg PO TWICE A DAY May 20, 2022 1:00am must administer in the morning on an empty stomach, 1 hour before or 2 hours after a meal Start: 05-20-2022 take 1 capsule by mo ut twice daily after mealtime Tacrolimus 1 mg capsule,extended release 24hr Active 2 mg PO TWICE A DAY May 20, 2022 1:00am must administer in the morning on an empty stomach, 1 hour before or 2 hours after a meal Start: 05-20-2022 take 2 mg by mouth t wice daily after mealtime Tacrolimus Active 2 MG PO TWICE A DAY May 20, 2022 12:00am must administer in the morning on an empty stomach, 1 hour before or 2 hours after a meal take 5 capsules by [facility] once daily, then take 3 capsules by mouth in the morning, then take 2 capsules by mouth in the evening tacrolimus IR (PROGRAF) 1 mg capsule Take 5 mg by mouth once daily. 3 mg in am, 2 mg in pm Active Completed/Discontinued Medications Medication Drug Class(es) Dates Sig (Normalized) Sig (Original) aspirin 81 mg delayed release oral tablet (10 sources) Platelet Aggregation Inhibitor, Nonsteroidal Anti-inflammator y Drug Start: 3 End: 5 take 1 tablet by mouth once daily Aspirin 81 mg tablet,delayed release (DR/EC) Discontinued 81 mg PO DAILY May 20, 2022 1:00am July 06, 2024 2:31am hydroCHLOROthiazide 25 mg oral tablet (11 sources) Thiazide Diuretic Start: 7 End: 3 take 1 tablet by mouth once daily Hydrochlorothiazide 25 MG tablet Discontinued 25 mg PO DAILY August 10, 2020 12:00am May 20, 2022 11:10am hydroCHLOROthiazide 12.5 mg / lisinopril 10 mg oral tablet (10 sources) Thiazide Diuretic, Angiotensin Converting Enzyme Inhibitor Start: 0 End: 1 Lisinopril-Hydrochloro thiazide 1 EACH tablet Discontinued 1 EA PO DAILY February 07, 2020 12:00am August 10, 2020 10:38am Start: 02-07-2020 End: 08-10-2020 Lisinopril-Hydrochlorothiazi de Discontinued 1 EA PO DAILY February 06, 2020 11:00pm August 10, 2020 9:38am lactulose 02283 mg powder for oral solution (10 sources) Osmotic Laxative Start: 04-17-2021 End: 05-20-2022 take 20 g by mouth three times daily Lactulose 20 gram packet Discontinued 20 g PO THREE TIMES A DAY April 17, 2021 1:00am May 20, 2022 11:10am magnesium hydroxide 400 mg chewable tablet (10 sources) Start: 05-20-2022 End: 07-06-2024 take 1 tablet by mouth twice daily Magnesium Hydroxide 400 mg (170 mg magnesium) tablet,chewable Discontinued 400 mg PO TWICE A DAY May 20, 2022 1:00am July 06, 2024 2:32am pantoprazole 40 mg oral granules (10 sources) Proton Pump Inhibitor Start: 05-20-2022 End: 07-06-2024 take 40 mg by mouth once daily Pantoprazole (Protonix) [address] for susp in packet Discontinued 40 mg PO DAILY May 20, 2022 1:00am July 06, 2024 2:33am predniSONE 20 mg oral tablet (20 sources) Start: 02-03-2024 End: 07-22-2024 take 2 tablets by mouth once daily Prednisone 20 mg tablet Discontinued 40 mg PO DAILY July 06, 2024 12:00am July 22, 2024 1:30am Start: 10-26-2023 End: 10-31-2023 predniSONE 50 mg oral tablet Dose : 50 mg = 1 tab(s), Oral, qDay, Take with food, X 5 day(s), # 5 tab(s), 0 Refill(s), 10/31/23 7:00:00 AM EDT Start Date: 10/26/23 Stop Date: 10/31/23 Status: Ordered Start: 08-10-2020 End: 05-20-2022 take 2 tablets by mouth once daily at mealtime Prednisone 20 MG tablet Discontinued 40 mg PO DAILY August 10, 2020 12:00am May 20, 2022 11:09am With Food Start: 08-10-2020 End: 05-20-2022 take 40 mg by mouth once daily at mealtime Prednisone Discontinued 40 MG PO DAILY August 09, 2020 11:00pm May 20, 2022 10:09am With Food salmeterol (1 source) beta2-Adrenergic Agonist Start: 04-16-2017 End: 02-16-2024 take 1 puff(s) by inhalation twice daily salmeterol (SEREVENT DISKUS) 50 mcg/dose diskus inhaler Inhale 1 Puff as instructed twice daily. 1 Inhaler 5 04/16/2017 02/16/2024 Discontinued sodium bicarbonate 650 mg oral tablet (10 sources) Start: 05-20-2022 End: 07-06-2024 take 2 tablets by mouth three to four times daily as needed Sodium Bicarbonate 650 mg tablet Discontinued 1300 mg PO 3 to 4 times per day as needed May 20, 2022 1:00am July 06, 2024 2:33am Start: 05-20-2022 take 1300 mg by mout h three to four times daily Sodium Bicarbonate Active 1300 MG PO 3 to 4 times per day May 20, 2022 12:00am sulfamethoxazole 400 mg / trimethoprim 80 mg oral tablet (10 sources) Dihydrofolate Reductase Inhibitor Antibacterial, Sulfonamide Antimicrobial Start: 05-20-2022 End: 07-06-2024 take 1 tablet by mouth three times weekly Sulfamethoxazole-Trimethoprim (Bactrim) 400-80 mg tablet Discontinued 1 {tbl} PO .COMPLEX May 20, 2022 1:00am July 06, 2024 2:33am three times a week 1 TAB orally; Problems Active Problems Problem Classification Problem Date Documented Da te Episodic/Chronic Abdominal hernia (7 sources) Right inguinal hernia ; Translations: [Unilateral inguinal hernia, without obstruction or gangrene, not specified as recurrent] 04-07-2023 Episodic Acute bronchitis (5 sources) Acute bacterial bronchitis; Translations: [Acute bronchitis due to other specified organisms] Onset: 5 07-22-2024 Episodic Administrative/social admission (12 sources) Finding related to health insurance issues; Translations: [Insurance coverage problems] 05-16-2022 Episodic Alcohol-related disorders (20 sources) Alcohol abuse; Translations: [Alcohol abuse, uncomplicated] Onset: 5 05-20-2022 Chronic Alcohol-related disorders (10 sources) Alcohol intoxication; Translations: [Alcohol use, unspecified with intoxication, unspecified] 11-20-2019 Episodic Anxiety disorders (1 source) Anxiety disorder; Translations: [Anxiety disorder, unspecified] 06-25-2017 Chronic Asthma (20 sources) Acute severe exacerbation of asthma; Translations: [Unspecified asthma with status asthmaticus] Onset: 5 05-16-2022 Chronic Bacterial infection; unspecified site (1 source) Other specified bacterial agents as the cause of diseases classified elsewhere; Translations: [Other specified bacterial agents as the cause of diseases classified elsewhere] Onset: 5 Episodic Essential hypertension (20 sources) Essential hypertension; Translations: [Essential (primary) hypertension] Onset: 6 05-16-2022 Chronic Mood disorders (1 source) Major depressive disorder; Translations: [Major depressive disorder, single episode, unspecified] 06-25-2017 Chronic Open wounds of extremities (10 sources) Laceration of hand; Translations: [Laceration without foreign body of left hand, initial encounter] 05-25-2020 Episodic Other gastrointestinal disorders (10 sources) Constipation; Translations: [Constipation, unspecified] 04-25-2021 Episodic Other injuries and conditions due to external causes (10 sources) Angioedema; Translations: [Angioneurotic edema, initial encounter] 05-16-2022 Episodic Other liver diseases (20 sources) Cirrhosis of liver; Translations: [Unspecified cirrhosis of liver] 05-20-2022 Chronic Other liver diseases (5 sources) Liver transplant status; Translations: [Liver replaced by transplant] Onset: 5 05-20-2022 Chronic Other liver diseases (10 sources) Jaundice; Translations: [Unspecified jaundice] 04-07-2021 Episodic Other lower respiratory disease (4 sources) Dyspnea; Translations: [Shortness of breath] 02-11-2024 Episodic Other lower respiratory disease (8 sources) Respiratory insufficiency; Translations: [Other abnormalities of breathing] 07-06-2024 Episodic Other lower respiratory disease (4 sources) Hypoxia; Translations: [Hypoxemia] 07-22-2024 Episodic Other lower respiratory disease (2 sources) Other abnormalities of breathing; Translations: [Other abnormalities of breathing] Onset: 5 Episodic Other nutritional; endocrine; and metabolic disorders (10 sources) Obesity; Translations: [Obesity, unspecified] 05-20-2022 Chronic Other nutritional; endocrine; and metabolic disorders (1 source) Body mass index 40+ - severely obese; Translations: [Morbid (severe) obesity due to excess calories] Onset: 8 08-26-2017 Chronic Other nutritional; endocrine; and metabolic disorders (2 sources) Hypophosphatemia; Translations: [Other disorders of phosphorus metabolism] 07-22-2024 Chronic Other nutritional; endocrine; and metabolic disorders (1 source) Other disorders of phosphorus metabolism; Translations: [Other disorders of phosphorus metabolism] Onset: 5 Chronic Respiratory failure; insufficiency; arrest (adult) (6 sources) Acute respiratory failure; Translations: [Acute respiratory failure with hypoxia] Onset: 5 07-22-2024 Episodic Unclassified (1 source) Long-term use of immunosuppressant medication; Translations: [Long-term use of immunosuppressant medication] Onset: 5 Past or Other Problems Problem Classification Problem Date Documented Da te Episodic/Chronic Inflammation; infection of eye (except that caused by tuberculosis or sexually transmitteddisease) (1 source) Allergic conjunctivitis; Translations: [Acute atopic conjunctivitis, unspecified eye] Onset: 06-26-2015 06-26-2015 Episodic Results Test Name Value Interpretation Reference Range Facility Absolute neutrophil countOrd ered By: Lisa Wallis on 07-23-2024 Neutrophils (Bld) [#/Vol] 7.8 10*3/uL High 2.0-7.7 [facility] Anion gap in Serum or Plasma Ordered By: Lisa Wallis on 07-23-2024 Anion gap [Moles/Vol] 13 mmol/L 5-15 [facility] BUN/creatinine ratioOrdered By: Lisa Wallis on 07-23-2024 Urea nitrogen/Creatinine [Mass ratio] 19.9 mg/mg 10-20 [facility] Basophil percentageOrdered B y: Lisa Wallis on 07-23-2024 Basophils/100 WBC (Bld) 0.1 % 0-1 [facility] Bilirubin, totalOrdered By: Lisa Wallis on 07-23-2024 Bilirubin [Mass/Vol] 0.74 mg/dL 0.00-1.30 [facility] CBC W/Diff, Automatedon 06-27 Absolute Lymph 0.56 X10 3/uL Low 0.83-4.51 [facility] Comment on above: Performed By: #### L [id number], [id number], L100.0100 #### [facility] [address] [place], [address] Absolute Neut 7.8 X10 3/uL High 2.0-7.7 [facility] Comment on above: Performed By: #### L [id number], [id number], L100.0100 #### [facility] [address] [place], [address] Basophils/100 WBC (Bld) 0.1 % Normal 0-1 [facility] Comment on above: Performed By: #### L [id number], [id number], [id number] #### [facility] [address] [place], [address] Eosinophils/100 WBC (Bld) 0.0 % Normal 0-5 [facility] Comment on above: Performed By: #### L [id number], [id number], [id number] #### [facility] [address] [place], [address] Erythrocyte distribution width (RBC) [Ratio] 12.7 % Normal 11.6-14.6 [facility] Comment on above: Performed By: #### L [id number], [id number], L100.0100 #### [facility] [address] [place], [address] Hematocrit (Bld) [Volume fraction] 40.4 % Normal 40-54 [facility] Comment on above: Performed By: #### L [id number], [id number], [id number] #### [facility] [address] [place], [address] Hemoglobin (Bld) [Mass/Vol] 13.9 g/dL Normal 13.0-16.5 [facility] Comment on above: Performed By: #### L [id number], [id number], [id number] #### [facility] [address] [place], [address] IG% 0.700 Normal 0.0-0.9 [facility] Comment on above: Result Comment: IG% - Immature Granulocytes (promyelocytes, myelocytes and metamyelocytes) > 1% indicates that a LEFT SHIFT is Present. Performed By: #### L [id number], [id number], L100.0100 #### [facility] [address] [place], [address] Lymphocytes/100 WBC (Bld) 6.4 % Low 19-41 [facility] Comment on above: Performed By: #### L [id number], [id number], L100.0100 #### [facility] [address] [place], [address] MCH (RBC) [Entitic mass] 29.2 pg Normal 27.0-32.0 [facility] Comment on above: Performed By: #### L [id number], [id number], [id number] #### [facility] [address] [place], [address] MCHC (RBC) [Mass/Vol] 34.4 g/dL Normal 32-36 [facility] Comment on above: Performed By: #### L [id number], [id number], L100.0100 #### [facility] [address] [place], [address] MCV (RBC) [Entitic vol] 84.9 fL Normal 80-94 [facility] Comment on above: Performed By: #### L 501.5200, [id number], [id number] #### [facility] [address] [place], [address] Monocytes/100 WBC (Bld) 3.6 % Normal 0-10 [facility] Comment on above: Performed By: #### L [id number], [id number], [id number] #### [facility] [address] [place], [address] Neutrophils/100 WBC (Bld) 89.2 % High 47-70 [facility] Comment on above: Performed By: #### L [id number], [id number], [id number] #### [facility] [address] [place], [address] Nucleated RBC (Bld) [#/Vol] 0 10*3/uL Normal 0-5 [facility] Comment on above: Performed By: #### L 501.5200, [id number], [id number] #### [facility] [address] [place], [address] Platelet mean volume (Bld) [Entitic vol] 9.4 fL Normal 6.2-12.0 [facility] Comment on above: Performed By: #### L [id number], [id number], L100.0100 #### [facility] [address] [place], [address] Platelets (Bld) [#/Vol] 173 10*3/uL Normal 150-450 [facility] Comment on above: Performed By: #### L 501.5200, [id number], [id number] #### [facility] [address] [place], [address] RBC (Bld) [#/Vol] 4.76 10*6/uL Normal 4.6-6.2 [facility] Comment on above: Performed By: #### L [id number], [id number], [id number] #### [facility] [address] [place], [address] RDW SD 38.7 fl Normal 35.1-43.9 [facility] Comment on above: Performed By: #### L [id number], [id number], [id number] #### [facility] [address] [place], [address] WBC (Bld) [#/Vol] 8.7 10*3/uL Normal 4.4-11.0 [facility] Comment on above: Performed By: #### L [id number], [id number], [id number] #### [facility] [address] [place], [address] Carbon dioxide, total [Moles /volume] in Central venous bloodOrdered By: Lisa Wallis on 07-23-2024 CO2 [Moles/Vol] 16.5 mmol/L Low 21.0-32.0 [facility] Chloride assayOrdered By: Jatinder Wallis on 07-23-2024 Chloride [Moles/Vol] 110 mmol/L High 98-108 [facility] Comprehensive Metabolic Prof ilon 07-23-2024 Albumin [Mass/Vol] 4.2 g/dL Normal 3.5-5.0 [facility] Comment on above: Performed By: #### L 499.0042 #### [facility] [address] [place], [address] Albumin/Globulin [Mass ratio] 1.6 {ratio} Normal 0.9-2.4 [facility] Comment on above: Performed By: #### L [id number] #### [facility] [address] [place], [address] ALK PHOS 69 U/L Normal 40-129 [facility] Comment on above: Performed By: #### L 499.0042 #### [facility] [address] [place], [address] ALT [Catalytic activity/Vol] 57 U/L High <=46 [facility] Comment on above: Performed By: #### L 499.0042 #### [facility] [address] [place], [address] AST [Catalytic activity/Vol] 40 U/L High <=37 [facility] Comment on above: Performed By: #### L 499.0042 #### [facility] [address] [place], [address] Bilirubin [Mass/Vol] 0.74 mg/dL Normal 0.00-1.30 [facility] Comment on above: Performed By: #### L 499.0042 #### [facility] [address] [place], [address] BUN/CRE 19.9 RATIO Normal 10-20 [facility] Comment on above: Performed By: #### L 499.0042 #### [facility] [address] [place], [address] Calcium [Mass/Vol] 9.1 mg/dL Normal 7.6-11.0 [facility] Comment on above: Performed By: #### L 499.0042 #### [facility] [address] [place], [address] Chloride [Moles/Vol] 110 mmol/L High 98-108 [facility] Comment on above: Performed By: #### L 499.0042 #### [facility] [address] [place], [address] CO2 [Moles/Vol] 16.5 mmol/L Low 21.0-32.0 [facility] Comment on above: Performed By: #### L 499.0042 #### [facility] [address] [place], [address] Creatinine [Mass/Vol] 1.02 mg/dL Normal 0.70-1.20 [facility] Comment on above: Performed By: #### L 499.0042 #### [facility] [address] [place], [address] ECRCL 77.39 ml/min Normal 50-250 [facility] Comment on above: Performed By: #### L 499.0042 #### [facility] [address] [place], [address] GAP 13 Normal 5-15 [facility] Comment on above: Performed By: #### L 499.0042 #### [facility] [address] [place], [address] GFR/1.73 sq M.predicted among non-blacks MDRD (S/P/Bld) [Vol rate/Area] 93 mL/min/{1.73_m2} Normal >60 [facility] Comment on above: Result Comment: mL/m in/1.73m2 CKD-EPI Creatinine Equation (2020) Performed By: #### L 499.0042 #### [facility] [address] [place], [address] Globulin (S) [Mass/Vol] 2.6 g/dL Normal 2.2-4.2 [facility] Comment on above: Performed By: #### L 499.0042 #### [facility] [address] [place], [address] Glucose [Mass/Vol] 174 mg/dL High 70-99 [facility] Comment on above: Performed By: #### L 499.0042 #### [facility] [address] [place], [address] Potassium [Moles/Vol] 4.3 mmol/L Normal 3.3-5.1 [facility] Comment on above: Performed By: #### L 499.0042 #### [facility] [address] [place], [address] Sodium [Moles/Vol] 140 mmol/L Normal 133-145 [facility] Comment on above: Performed By: #### L 499.0042 #### [facility] [address] [place], [address] T PROT 6.8 g/dL Normal 5.9-8.4 [facility] Comment on above: Performed By: #### L 499.0042 #### [facility] [address] [place], [address] Urea nitrogen [Mass/Vol] 20 mg/dL High 4-19 [facility] Comment on above: Performed By: #### L 499.0042 #### [facility] [address] [place], [address] Discharge Instructionon 2 Discharge Instruction [facility] Medical Records Department [address] [place] [address] Instructions for Home/Discharge Instructions 07/23/24912 MR#: [id number] Acct: [id number] Name: DANNY BEDOYA Rep #: [id number] : 1980 44 From: Andrea Daly MD PCP: Dr. Lexi Barnes MD Status:ADM IN Discharge Instructions Diet Discharge Diet: No restrictions DC O2, CPAP, BIPAP needs Home O2 Discharge instructions: No Dressing / Incision Discharge Activity: Return to Normal Activity Dressing / Incision Call your doctor if you observe: Fever of 101 or Higher, Shortness of breath, Dizziness, Fainting spells, Swelling in the ankles, Chest pain and Increased palpitations (irregular heartbeat) Follow Up Care Test Results: Test results from this visit will be discussed in further detail at your follow-up appointment, if applicable. Discharge Plan Admission Admit Date/Time: 07/22/24 03:40 Attending Provider: Andrea Daly Primary Care Provider: Lexi Barnes Consulting Providers: Lisa Jain Discharge Orders/Prescriptions Prescriptions: New prednisone 20 mg tablet 40 mg PO DAILY 7 Days Qty: 14 0RF Continued amlodipine [Norvasc] 10 mg tablet 10 mg PO DAILY mycophenolate mofetil [CellCept] 500 mg tablet 500 mg PO BID fluticasone propion-salmeterol 1 EACH blister with device 1 ea IH DAILY albuterol sulfate 2.5 mg /3 mL (0.083 %) solution for nebulization 2.5 mg inhalation Q4H PRN Qty: 25 0RF Rx Instructions: Use q4 hours and PRN for wheezing tacrolimus 1 mg capsule 2 mg PO BID Referrals / Follow Up: Lexi Barnes MD [Primary Care Provider] - Within 1 Week Echo Michael NP, [employer] [Med Staff - Adv Practice Prof] - Within 1 Month Disposition Disposition (needs filled in before D/C Order can be placed): Home, Self Care 07/23/24928 Andrea Daly MD CC: Dr. Lexi Barnes MD; Dr. Lisa Jain DO Signed Normal [facility] Electrocardiogram reportOrde red By: Alexy York on 07-23-2024 EKG study [facility] Cardiovascular Services [address] [place] [address] 12 Lead EKG 07/22/24 0129 MR#: [id number] Acct: [id number] Name: DANNY BEDOYA Rep #:[id number] : 1980 44 From: Alexy York MD Attending Dr: Dr. Andrea Daly MD Status: ADM IN Ordering Dr: Natalie Jeffery DO Date: 0 07/22/24 Location: [facility] Sex: M C Admitted: 07/22/24 Test Reason : DYSRHYTHMIA Blood Pressure : */* mmHG Vent. Rate : 104 BPM Atrial Rate : 104 BPM P-R Int : 166 ms QRS Dur : 82 ms QT Int : 342 ms P-R-T Axes : 76 85 59 degrees QTcB Int : 449 ms Sinus tachycardia Possible Left atrial enlargement Borderline ECG Confirmed by YANG JIANG, ALEXY ([id number]), fan mail editor SHARON HANNAH ([id number]) on 07/23/2024 8:19:45 AM Referred By: Confirmed By: ALEXY YORK MD 07/23/24 0819 Date _ Alexy York MD CC: Dr. Lexi Barnes MD; Dr. Natalie Jeffery DO; Dr. Andrea Daly MD ~ Signed [facility] Other Phone: Eosinophil percentageOrdered By: Lisa Wallis on 07-23-2024 Eosinophils/100 WBC (Bld) 0.0 % 0-5 [facility] Erythrocyte distribution wid th ratioOrdered By: Lisa Wallis on 07-23-2024 Erythrocyte distribution width (RBC) [Ratio] 12.7 % 11.6-14.6 [facility] Erythrocyte distribution wid th standard deviationOrdered By: Lisa Wallis on 07-23-2024 Erythrocyte distribution width (RBC) [Entitic vol] 38.7 fL 35.1-43.9 [facility] Estimation of creatinine niru aranceOrdered By: Lisa Wallis on 07-23-2024 Estimated Creatinine Clearance Calc 77.39 ml/min 50-250 [facility] GFR/1.73 sq M.predicted jyoti g non-blacks MDRD (S/P/Bld) [Vol rate/Area]Ordered By: Lisa Wallis on 07-23-2024 Estimated GFR (MDRD) Non-Af Amer 93 >60 [facility] Comment on above: mL/min/1.73m2 CKD-EP I Creatinine Equation (2020) Hematocrit Auto (Bld) [Volum e fraction]Ordered By: Lisa Wallis on 07-23-2024 Hematocrit (Bld) [Volume fraction] 40.4 % 40-54 [facility] Hemoglobin measurementOrdere d By: Lisa Wallis on 07-23-2024 Hemoglobin (Bld) [Mass/Vol] 13.9 g/dL 13.0-16.5 [facility] Immature granulocytes/100 WB C Auto (Bld)Ordered By: Lisa Wallis on 07-23-2024 Immature granulocytes/100 WBC (Bld) 0.700 % 0.0-0.9 [facility] Comment on above: IG% - Immature Granu locytes (promyelocytes, myelocytes and metamyelocytes) > 1% indicates that a LEFT SHIFT is Present. Laboratory - Chemistry and C hemistry - challengeOrdered By: Lisa Wallis on 07-23-2024 AST [Catalytic activity/Vol] 40 U/L High <38 [facility] Lymphocytes Auto (Unsp spec) [#/Vol]Ordered By: Lisa Wallis on 07-23-2024 Lymphocytes (Bld) [#/Vol] 0.56 10*3/uL Low 0.83-4.51 [facility] Lymphocytes/100 WBC Auto (Un sp spec)Ordered By: Lisa Wallis on 07-23-2024 Lymphocytes/100 WBC (Bld) 6.4 % Low 19-41 [facility] MCV (mean corpuscular volume ) determinationOrdered By: Lisa Wallis on 07-23-2024 MCV (RBC) [Entitic vol] 84.9 fL 80-94 [facility] Magnesiumon 07-23-2024 Magnesium [Mass/Vol] 1.9 mg/dL Normal 1.5-2.2 [facility] Comment on above: Performed By: #### L 499.0042 #### [facility] [address] [place], [address] Magnesium (Unsp spec) [Mass/ Vol]Ordered By: Andrea Daly on 07-23-2024 Magnesium [Mass/Vol] 1.9 mg/dL 1.5-2.2 [facility] Mean corpuscular hemoglobin (MCH) determinationOrdered By: Lisa Wallis on 07-23-2024 MCH (RBC) [Entitic mass] 29.2 pg 27.0-32.0 [facility] Mean corpuscular hemoglobin concentration (MCHC) determinationOrdered By: Lisa Wallis on 07-23-2024 MCHC (RBC) [Mass/Vol] 34.4 g/dL 32-36 [facility] Mean platelet volume determi nationOrdered By: Lisa Wallis on 07-23-2024 Platelet mean volume (Bld) [Entitic vol] 9.4 fL 6.2-12.0 [facility] Monocyte percentageOrdered B y: Lisa Wallis on 07-23-2024 Monocytes/100 WBC (Bld) 3.6 % 0-10 [facility] Neutrophil percentageOrdered By: Lisa Wallis on 07-23-2024 Neutrophils/100 WBC (Bld) 89.2 % High 47-70 [facility] Nucleated red blood cell per centageOrdered By: Lisa Wallis on 07-23-2024 Nucleated RBC/100 WBC (Bld) [Ratio] 0 % 0-5 [facility] Phosphoruson 07-23-2024 Phosphate [Mass/Vol] 2.6 mg/dL Low 2.7-4.5 [facility] Comment on above: Performed By: #### L 100.0100, L500.2500, L501.5200 #### [facility] [address] [place], [address] Platelet countOrdered By: Jatinder Wallis on 07-23-2024 Platelets (Bld) [#/Vol] 173 10*3/uL 150-450 [facility] Potassium (Unsp spec) [Mass/ Vol]Ordered By: Lisa Wallis on 07-23-2024 Potassium [Moles/Vol] 4.3 mmol/L 3.3-5.1 [facility] RBC Auto (Bld) [#/Vol]Ordere d By: Lisa Wallis on 07-23-2024 RBC (Bld) [#/Vol] 4.76 10*6/uL 4.6-6.2 [facility] Serum creatinine measurement (mass/volume)Ordered By: Lisa Wallis on 07-23-2024 Creatinine [Mass/Vol] 1.02 mg/dL 0.70-1.20 [facility] Serum globulin measurementOr dered By: Lisa Wallis on 07-23-2024 Globulin (S) [Mass/Vol] 2.6 g/dL 2.2-4.2 [facility] Serum glucose measurement (m ass/volume)Ordered By: Lisa Wallis on 07-23-2024 Glucose [Mass/Vol] 174 mg/dL High 70-99 [facility] Serum or plasma alanine rodas otransferase (ALT) measurementOrdered By: Lisa Wallis on 07-23-2024 ALT [Catalytic activity/Vol] 57 U/L High <47 [facility] Serum or plasma albumin ginny urement (mass/volume)Ordered By: Lisa Wallis on 07-23-2024 Albumin [Mass/Vol] 4.2 g/dL 3.5-5.0 [facility] Serum or plasma albumin/glob ulin mass ratioOrdered By: Lisa Wallis on 07-23-2024 Albumin/Globulin [Mass ratio] 1.6 {ratio} 0.9-2.4 [facility] Serum or plasma alkaline yarelis sphatase measurementOrdered By: Lisa Wallis on 07-23-2024 ALP [Catalytic activity/Vol] 69 U/L 40-129 [facility] Serum or plasma calcium ginny urement (mass/volume)Ordered By: Lisa Wallis on 07-23-2024 Calcium [Mass/Vol] 9.1 mg/dL 7.6-11.0 [facility] Serum or plasma urea nitroge n measurement (mass/volume)Ordered By: Lisa Wallis on 07-23-2024 Urea nitrogen [Mass/Vol] 20 mg/dL High 4-19 [facility] Serum phosphorus measurement Ordered By: Andrea Daly on 07-23-2024 Phosphorus Level 2.6 mg/dL Low 2.7-4.5 [facility] Sodium levelOrdered By: Fritz Wallis on 07-23-2024 Sodium [Moles/Vol] 140 mmol/L 133-145 [facility] Total proteinOrdered By: Urbano Wallis on 07-23-2024 Protein [Mass/Vol] 6.8 g/dL 5.9-8.4 [facility] White blood cell (WBC) count Ordered By: Lisa Wallis on 07-23-2024 WBC (Bld) [#/Vol] 8.7 10*3/uL 4.4-11.0 [facility] 12 Lead EKGon 07-22-2024 12 Lead EKG [facility] Cardiovascular Services [address] [place] [address] 12 Lead EKG 07/22/24 0129 MR#: [id number] Acct: [id number] Name: DANNY BEDOYA Rep #: [id number] : 1980 44 From: Alexy York MD Attending Dr: Dr. Andrea Daly MD Status : ADM IN Ordering Dr: Natalie Jeffery DO Date: 07/22/24 Location: [facility] Sex: M C Admitted: 07/22/24 Test Reason : DYSRHYTHMIA Blood Pressure : */* mmHG Vent. Rate : 104 BPM Atrial Rate : 104 BPM P-R Int : 166 ms QRS Dur : 82 ms QT Int : 342 ms P-R-T Axes : 76 85 59 degrees QTcB Int : 449 ms Sinus tachycardia Possible Left atrial enlargement Borderline ECG Confirmed by ALEXY YORK MD ([id number]), fan mail editor SHARON HANNAH ([id number]) on 07/23/2024 8:19:45 AM Referred By: Confirmed By: ALEXY YORK MD 07/23/24 0819 Date Alexy York MD CC: Dr. Lexi Barnes MD; Dr. Natalie Jeffery DO; Dr. Andrea Daly MD Signed Normal [facility] Absolute neutrophil countOrd ered By: Natalie Jeffery on 07-22-2024 Neutrophils (Bld) [#/Vol] 7.4 10*3/uL 2.0-7.7 [facility] Anion gap in Serum or Plasma Ordered By: Natalie Jeffery on 07-22-2024 Anion gap [Moles/Vol] 15 mmol/L 5-15 [facility] Arterial patency Wrist arter y --pre arterial punctureOrdered By: Lisa Wallis on 07-22-2024 Aleksandar Test Positive [facility] Arterial patency Wrist arter y --pre arterial punctureOrdered By: Natalie Jeffery on 07-22-2024 Aleksandar Test Positive [facility] BUN/creatinine ratioOrdered By: Natalie Jeffery on 07-22-2024 Urea nitrogen/Creatinine [Mass ratio] 19.2 mg/mg 10- [facility] Base excess Calc (BldV) [Mol es/Vol]Ordered By: Lisa Wallis on 07-22-2024 Blood Gas Base Excess -3 mmol/L Low -2-2 [facility] Base excess Calc (BldV) [Mol es/Vol]Ordered By: Natalie Jeffery on 07-22-2024 Blood Gas Base Excess 3 mmol/L High -2-2 [facility] Basic Metabolic Profile (BMP )on 07-22-2024 BUN/CRE 19.2 RATIO Normal - [facility] Comment on above: Performed By: #### L 100.0100, L500.2500 #### [facility] [address] [place], [address] Calcium [Mass/Vol] 9.6 mg/dL Normal 7.6-11.0 [facility] Comment on above: Performed By: #### L 100.0100, L500.2500 #### [facility] [address] [place], [address] Chloride [Moles/Vol] 104 mmol/L Normal 98-108 [facility] Comment on above: Performed By: #### L 100.0100, L500.2500 #### [facility] [address] [place], [address] CO2 [Moles/Vol] 21.8 mmol/L Normal 21.0-32.0 [facility] Comment on above: Performed By: #### L 100.0100, L500.2500 #### [facility] [address] [place], [address] Creatinine [Mass/Vol] 1.21 mg/dL High 0.70-1.20 [facility] Comment on above: Performed By: #### L 100.0100, L500.2500 #### [facility] [address] [place], [address] ECRCL 110.15 ml/min Normal 50-250 [facility] Comment on above: Performed By: #### L 100.0100, L500.2500 #### [facility] [address] [place], [address] GAP 15 Normal 5-15 [facility] Comment on above: Performed By: #### L 100.0100, L500.2500 #### [facility] [address] [place], [address] GFR/1.73 sq M.predicted among non-blacks MDRD (S/P/Bld) [Vol rate/Area] 76 mL/min/{1.73_m2} Normal >60 [facility] Comment on above: Result Comment: mL/m in/1.73m2 CKD-EPI Creatinine Equation (2020) Performed By: #### L 100.0100, L500.2500 #### [facility] [address] [place], [address] Glucose [Mass/Vol] 94 mg/dL Normal 70-99 [facility] Comment on above: Performed By: #### L 100.0100, L500.2500 #### [facility] [address] [place], [address] Potassium [Moles/Vol] 4.1 mmol/L Normal 3.3-5.1 [facility] Comment on above: Performed By: #### L 100.0100, L500.2500 #### [facility] [address] [place], [address] Sodium [Moles/Vol] 141 mmol/L Normal 133-145 [facility] Comment on above: Performed By: #### L 100.0100, L500.2500 #### [facility] [address] [place], [address] Urea nitrogen [Mass/Vol] 23 mg/dL High 4-19 [facility] Comment on above: Performed By: #### L 100.0100, L500.2500 #### [facility] [address] [place], [address] Basophil percentageOrdered B y: Natalie Jeffery on 07-22-2024 Basophils/100 WBC (Bld) 0.7 % 0-1 [facility] Blood Gases by CPSon 025 ALEKSANDAR TEST Positive Normal [facility] Comment on above: Performed By: #### L 499.0042 #### [facility] [address] [place], [address] Base excess Calc (Bld) [Moles/Vol] -3 mmol/L Low -2 to +2 [facility] Comment on above: Performed By: #### L 499.0042 #### [facility] [address] [place], [address] Blood Gas Type ART Normal [facility] Comment on above: Performed By: #### L 499.0042 #### [facility] [address] [place], [address] CO2 [Moles/Vol] 23 mmol/L Normal [facility] Comment on above: Performed By: #### L 499.0042 #### [facility] [address] [place], [address] FI02 4.0 Normal [facility] Comment on above: Performed By: #### L 499.0042 #### [facility] [address] [place], [address] HCO3 (Bld) [Moles/Vol] 22.1 mmol/L Normal 22-26 [facility] Comment on above: Performed By: #### L 499.0042 #### [facility] [address] [place], [address] Mode Not entered Normal [facility] Comment on above: Performed By: #### L 499.0042 #### [facility] [address] [place], [address] O2 Delivery Dev Cannula Normal [facility] Comment on above: Performed By: #### L 499.0042 #### [facility] [address] [place], [address] pCO2 36.7 mmHg Normal 35-45 [facility] Comment on above: Performed By: #### L 499.0042 #### [facility] [address] [place], [address] pH (Bld) 7.39 [pH] Normal 7.35-7.45 [facility] Comment on above: Performed By: #### L 499.0042 #### [facility] [address] [place], [address] PO2 76 mmHG Normal 75-100 [facility] Comment on above: Performed By: #### L 499.0042 #### [facility] [address] [place], [address] SITE L Radial Normal [facility] Comment on above: Performed By: #### L 499.0042 #### [facility] [address] [place], [address] SO2 95 Normal 95-99 [facility] Comment on above: Performed By: #### L 499.0042 #### [facility] [address] [place], [address] ALEKSANDAR TEST Positive Normal [facility] Comment on above: Performed By: #### L 499.0042 #### [facility] [address] [place], [address] Base excess Calc (Bld) [Moles/Vol] 3 mmol/L High -2 to +2 [facility] Comment on above: Performed By: #### L 499.0042 #### [facility] [address] [place], [address] Blood Gas Type ART Normal [facility] Comment on above: Performed By: #### L 499.0042 #### [facility] [address] [place], [address] CO2 [Moles/Vol] 29 mmol/L Normal [facility] Comment on above: Performed By: #### L 499.0042 #### [facility] [address] [place], [address] Comment Normal [facility] Comment on above: Result Comment: AVAP S 450vt 12rr 26maxP 16minP +8 30% Performed By: #### L 499.0042 #### [facility] [address] [place], [address] FI02 30.0 Normal [facility] Comment on above: Performed By: #### L 499.0042 #### [facility] [address] [place], [address] HCO3 (Bld) [Moles/Vol] 27.6 mmol/L High 22-26 [facility] Comment on above: Performed By: #### L 499.0042 #### [facility] [address] [place], [address] Mode Not entered Normal [facility] Comment on above: Performed By: #### L 499.0042 #### [facility] [address] [place], [address] O2 Delivery Dev BiPAP Normal [facility] Comment on above: Performed By: #### L 499.0042 #### [facility] [address] [place], [address] pCO2 46.6 mmHg High 35-45 [facility] Comment on above: Performed By: #### L 499.0042 #### [facility] [address] [place], [address] pH (Bld) 7.38 [pH] Normal 7.35-7.45 [facility] Comment on above: Performed By: #### L 499.0042 #### [facility] [address] [place], [address] PO2 86 mmHG Normal 75-100 [facility] Comment on above: Performed By: #### L 499.0042 #### [facility] [address] [place], [address] SITE L Radial Normal [facility] Comment on above: Performed By: #### L 499.0042 #### [facility] [address] [place], [address] SO2 96 Normal 95-99 [facility] Comment on above: Performed By: #### L 499.0042 #### [facility] [address] [place], [address] Blood bicarbonate measuremen tOrdered By: Lisa Wallis on 07-22-2024 Blood Gas Bicarbonate Actual 22.1 mmol/L 22-26 [facility] Blood bicarbonate measuremen tOrdered By: Natalie Jeffery on 07-22-2024 Blood Gas Bicarbonate Actual 27.6 mmol/L High [facility] CBC W/Diff, Automatedon - Absolute Lymph 1.75 X10 3/uL Normal 0.83-4.51 [facility] Comment on above: Performed By: #### L 100.0100, L500.2500 #### [facility] [address] [place], [address] Absolute Neut 7.4 X10 3/uL Normal 2.0-7.7 [facility] Comment on above: Performed By: #### L 100.0100, L500.2500 #### [facility] [address] [place], [address] Basophils/100 WBC (Bld) 0.7 % Normal 0-1 [facility] Comment on above: Performed By: #### L 100.0100, L500.2500 #### [facility] [address] [place], [address] Eosinophils/100 WBC (Bld) 4.4 % Normal 0-5 [facility] Comment on above: Performed By: #### L 100.0100, L500.2500 #### [facility] [address] [place], [address] Erythrocyte distribution width (RBC) [Ratio] 12.7 % Normal 11.6-14.6 [facility] Comment on above: Performed By: #### L 100.0100, L500.2500 #### [facility] [address] [place], [address] Hematocrit (Bld) [Volume fraction] 45.2 % Normal 40-54 [facility] Comment on above: Performed By: #### L 100.0100, L500.2500 #### [facility] [address] [place], [address] Hemoglobin (Bld) [Mass/Vol] 15.9 g/dL Normal 13.0-16.5 [facility] Comment on above: Performed By: #### L 100.0100, L500.2500 #### [facility] [address] [place], [address] IG% 0.600 Normal 0.0-0.9 [facility] Comment on above: Result Comment: IG% - Immature Granulocytes (promyelocytes, myelocytes and metamyelocytes) > 1% indicates that a LEFT SHIFT is Present. Performed By: #### L 100.0100, L500.2500 #### [facility] [address] [place], [address] Lymphocytes/100 WBC (Bld) 16.6 % Low 19-41 [facility] Comment on above: Performed By: #### L 100.0100, L500.2500 #### [facility] [address] [place], [address] MCH (RBC) [Entitic mass] 29.4 pg Normal 27.0-32.0 [facility] Comment on above: Performed By: #### L 100.0100, L500.2500 #### [facility] [address] [place], [address] MCHC (RBC) [Mass/Vol] 35.2 g/dL Normal 32-36 [facility] Comment on above: Performed By: #### L 100.0100, L500.2500 #### [facility] [address] [place], [address] MCV (RBC) [Entitic vol] 83.7 fL Normal 80-94 [facility] Comment on above: Performed By: #### L 100.0100, L500.2500 #### [facility] [address] [place], [address] Monocytes/100 WBC (Bld) 7.6 % Normal 0-10 [facility] Comment on above: Performed By: #### L 100.0100, L500.2500 #### [facility] [address] [place], [address] Neutrophils/100 WBC (Bld) 70.1 % High 47-70 [facility] Comment on above: Performed By: #### L 100.0100, L500.2500 #### [facility] [address] [place], [address] Nucleated RBC (Bld) [#/Vol] 0 10*3/uL Normal 0-5 [facility] Comment on above: Performed By: #### L 100.0100, L500.2500 #### [facility] [address] [place], [address] Platelet mean volume (Bld) [Entitic vol] 9.2 fL Normal 6.2-12.0 [facility] Comment on above: Performed By: #### L 100.0100, L500.2500 #### [facility] [address] [place], [address] Platelets (Bld) [#/Vol] 155 10*3/uL Normal 150-450 [facility] Comment on above: Performed By: #### L 100.0100, L500.2500 #### [facility] [address] [place], [address] RBC (Bld) [#/Vol] 5.40 10*6/uL Normal 4.6-6.2 [facility] Comment on above: Performed By: #### L 100.0100, L500.2500 #### [facility] [address] [place], [address] RDW SD 37.9 fl Normal 35.1-43.9 [facility] Comment on above: Performed By: #### L 100.0100, L500.2500 #### [facility] [address] [place], [address] WBC (Bld) [#/Vol] 10.5 10*3/uL Normal 4.4-11.0 [facility] Comment on above: Performed By: #### L 100.0100, L500.2500 #### [facility] [address] [place], [address] Carbon dioxide, total [Moles /volume] in Central venous bloodOrdered By: Natalie Jeffery on 07-22-2024 CO2 [Moles/Vol] 21.8 mmol/L 21.0-32.0 [facility] Chest 1 View (Portable)on Chest 1 View (Portable) [facility] Imaging Services [address] [place] [address] Chest 1 View (Portable) MR#: [id number] Acct: [id number] Name: DANNY BEDOYA Rep #: [id number] : 1980 M 44 From: Nathan Srinivasan MD PCP: Dr. Lexi Barnes MD Status: [facility] Study: Chest 1 View (Portable) Date of Exam: 07/22/24 Exam# [id number] Ordering Dr: Natalie Jeffery DO PROCEDURE: CHEST 1 VIEW (PORTABLE) 07/22/2024 REASON FOR EXAM: DYSPNEA TECHNIQUE: Frontal view of the chest. COMPARISON: 07/05/2024 and 02/03/2024 FINDINGS: The lungs appear clear. Hyperinflation again noted. Pulmonary vascularity appears within limits. No pleural effusion. The cardiac and mediastinal contours appear within limits. The visualized osseous structures appear within limits. RAD/Chest 1 View (Portable) IMPRESSION: Hyperinflation again noted. No evidence of acute disease. Reading Location: [id number] CC: Dr. Lexi Barnes MD; Dr. Natalie Jeffery DO Bulker: Signed Normal [facility] Chloride assayOrdered By: Oliverio Jeffery on 07-22-2024 Chloride [Moles/Vol] 104 mmol/L 98-108 [facility] Determination of fraction of inspired oxygenOrdered By: Lisa aWllis on 07-22-2024 Blood Gas Oxygen Percent 4.0 [facility] Determination of fraction of inspired oxygenOrdered By: Natalie Jeffery on 07-22-2024 Blood Gas Oxygen Percent 30.0 [facility] Emergency Department Summary on 07-22-2024 Emergency Department Summary [facility] Medical Records Department [address] [place] [address] Emergency Department Summary 07/22/24 MR#: [id number] Acct: [id number] Name: DANNY BEDOYA Rep #: [id number] : 1980 44 From: Natalie Jeffery DO PCP: Dr. Lexi Barnes MD Status:ADM IN Location: [facility] [id number] HPI History of Present Illness Chief Complaint: Shortness of Breath Informant: patient Onset/Context/Timing Onset: Today Context: sudden Timing: Continuous Quality: Positive for Dyspnea on exertion, Orthopnea and Wheezing Worsened by: Exertion and Lying flat Relieved by: - (Steroids) Associated Symptoms cough, clear sputum, yellow sputum and green sputum; Negative for rhinorrhea, post nasal drip, ear pain, fever, sore throat, chills or sweats Chest Pain: Positive for None Narrative Narrative: Patient presents with shortness of breath that has been getting worse throughout the day today. Patient states it began rather suddenly. Patient states his breathing is worse with any exertion and with laying flat. Patient states he also feels like he is wheezing. Patient states he is coughing up some yellow, green, and clear sputum. Patient denies any fevers or chills. Patient denies any chest pain. Patient denies any sore throat or rhinorrhea. Patient states that steroids usually help with his breathing. Patient states he is not currently on steroids. PE Risk Factors: Negative for Cancer, OCP + Smoking + > 35, Prior DVT or PE, Recent immobilization, Recent surgery or Recent travel [facility] Medical History Cirrhosis Asthma Alcohol abuse Angioedema Home Medications ???Medication ???Instructions ???Recorded ???Last Taken ???Type fluticasone 100 mcg-salmeterol 50 1 ea IH DAILY breathing 01/04/19 Unknown History mcg/dose blistr powdr for inhalation amlodipine 10 mg tablet (Norvasc) 10 mg PO DAILY 05/20/22 Unknown H istory mycophenolate mofetil 500 mg 500 mg PO BID 05/20/22 Unknown His tory tablet (CellCept) tacrolimus 1 mg capsule,extended 2 mg PO BID liver 05/20/22 Unknown History release 24 hr albuterol sulfate 2.5 mg/3 mL 2.5 mg (3 mL) inhalation Q4H PRN 1 Unknown Rx (0.083 %) solution for nebulization #25 vials tacrolimus 1 mg capsule, 2 mg PO BID 02/03/24 Unknown Histo ry immediate-release Allergy/AdvReac Type Severity Reaction Status Date / Time lisinopril Allergy Angioedema Verified 07/05/24 21:59 Family History Father Alcoholism Asthma Mother Asthma Grandmother Cancer brain Surgical History Hx of liver transplant Social History household members: none current occupational status: employed 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 [employer] Smoking Status: Never smoker Electronic Cigarette Use: not used alcohol intake: former details: former heavy drinker, 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 substance use type: marijuana what type of physical activity do you participate in: none do you feel safe at home: Yes ROS ROS ED Constitutional Constitutional ED: Denies chills or fever(s) Eyes Eyes: Denies blurry vision or change in vision ENT ENT ED: Denies rhinorrhea or sore throat Cardiovascular Cardiovascular: Denies chest pain or palpitations Respiratory/Chest Respiratory/Chest: Reports cough and dyspnea Gastrointestinal Gastrointestinal: Denies nausea or vomiting Genitourinary Genitourinary ED: Denies dysuria or hematuria Musculoskeletal Musculoskeletal: Denies back pain or neck pain Integumentary Denies abscess or rash Neurologic Neurologic: Denies headache(s) or weakness Allergic/Immunologic Allergic/Immunologic ED: Denies mouth swelling or urticaria EXAM Physical Exam Const Vital Signs: 07/22/24 00:49 07/22/24 00:51 07/22/24 01:01 Temperature 97.9 F Temperature Source Temporal Pulse Rate 126 H 127 H Respiratory Rate 27 H 23 H Respiratory Effort Respiratory Depth Respiratory Pattern Tachypnea Blood Pressure 175/113 H Blood Pressure Mean 133 Pulse Ox 95 96 94 Oxygen Delivery Method Bi-pap Bi-pap Oxygen Flow Rate (L/min) Fraction of Inspired Oxygen (FIO2) 30 30 07/22/24 01:04 07/22/24 01:18 07/22/24 01:28 Temperature 97.7 F L Temperature Source Pulse Rate 104 H 107 H Respiratory Rate 20 H 21 H Respiratory Effort Short of Breath Labored Accessory Muscle Use Head [place] Respiratory Depth Shallow Respiratory Pattern Tachypnea Normal Blood Pressure 147/111 H Blood Pressure Mean 123 Pulse Ox 94 Oxygen Delivery Method Room Air Oxygen Flow Rate (L/min) Fraction of Inspired Oxygen (more content not included)... Normal [facility] Eosinophil percentageOrdered By: Natalie Jeffery on 07-22-2024 Eosinophils/100 WBC (Bld) 4.4 % 0-5 [facility] Erythrocyte distribution wid th ratioOrdered By: Natalie Jeffery on 07-22-2024 Erythrocyte distribution width (RBC) [Ratio] 12.7 % 11.6-14.6 [facility] Erythrocyte distribution wid th standard deviationOrdered By: Natalie Jeffery on 07-22-2024 Erythrocyte distribution width (RBC) [Entitic vol] 37.9 fL 35.1-43.9 [facility] Estimation of creatinine niru aranceOrdered By: Natalie Jeffery on 07-22-2024 Estimated Creatinine Clearance Calc 110.15 ml/min 50-250 [facility] GFR/1.73 sq M.predicted jyoti g non-blacks MDRD (S/P/Bld) [Vol rate/Area]Ordered By: Natalie Jeffery on 07-22-2024 Estimated GFR (MDRD) Non-Af Amer 76 >60 [facility] Comment on above: mL/min/1.73m2 CKD-EP I Creatinine Equation (2020) H AND P Exam - [facility] 07-22-2024 H&P Exam - Hospitalist [facility] Medical Records Department [address] [place] [address] H P Exam - Hospitalist 07/22/24 0310 MR#: [id number] Acct: [id number] Name: DANNY BEDOYA Rep #: [id number] : 1980 44 From: Lisa Jain DO PCP: Dr. Lexi Barnes MD Status:ADM IN Location: VT3 [id number] [facility] Date of Admission: 07/22/24 Date of Service: 07/22/24 Chief Complaint: SOB and Wheezing. 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 Mr. Bedoya reports his symptoms began approximately one day prior to admission with the sudden-onset of SOB and wheezing that progressively worsened throughout the day. 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 He also admits to cough productive of sputum that has been clear and is now greenish yellow. He admits he recently finished his course of steroids a few days ago with a subsequent worsening of his symptoms. He denies associated fever, chills, runny nose, nausea, vomiting, diarrhea, constipation, abdominal pain, chest pain, rash or headache. In the ER he was diagnosed with AE Asthma with clinical evidence of Acute Hypoxic Respiratory Failure requiring BiPAP with a CXR negative for acute pathologic changes and he was then admitted to the general medical floor for ongoing care for a stay that is expected to extend beyond 2 midnights. [facility] Medical History Cirrhosis Asthma Alcohol abuse Angioedema Home Medications ???Medication ???Instructions ???Recorded ???Last Taken ???Type fluticasone 100 mcg-salmeterol 50 1 ea IH DAILY breathing 01/04/19 07/21/24 History mcg/dose blistr powdr for inhalation amlodipine 10 mg tablet (Norvasc) 10 mg PO DAILY blood pressure 07/21/24 History mycophenolate mofetil 500 mg 500 mg PO BID liver transplant 07/21/24 History tablet (CellCept) albuterol sulfate 2.5 mg/3 mL 2.5 mg (3 mL) inhalation Q4H PRN 1 07/22/24 Rx (0.083 %) solution for nebulization #25 vials tacrolimus 1 mg capsule, 2 mg PO BID liver transplant 02/0207/21/24 History immediate-release Allergy/AdvReac Type Severity Reaction Status Date / Time lisinopril Allergy Angioedema Verified 07/05/24 21:59 Family History Father Alcoholism Asthma Mother Asthma Grandmother Cancer brain Surgical History Hx of liver transplant Social History household members: none 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 Eyes: Patient denies changes in vision or discharge from eyes. ENT: Patient denies runny nose, sore throat or ear pain. Resp: Patient admits to SOB, cough productive of greenish yellow sputum and wheezing as per HPI. CV: Patient denies chest pain, palpitations, heart racing or LE edema. GI: Patient denies abdominal pain, nausea, vomiting, diarrhea or constipation. : Patient denies dysuria or hematuria. MSK: Patient denies arthralgias or myalgias. Skin: Patient denies rash, abscess, wounds or jaundice. Psych: Patient denies symptoms of uncontrolled depression or anxiety. Neuro: Patient denies headache, paresthesias or focal neurologic deficits. Allergy: Patient denies lip swelling, tongue swelling or urticaria. Hematology: Patient denies easy bleeding or easy bruisability. Endocrinology: Patient denies polyuria, polydipsia, polyphagia or cold/heat intolerance. 14 point ROS otherwise negative except for positives noted above in HPI. Vital Signs Vital Signs Vital Signs: 07/22/24 00:49 07/22/24 00:51 07/22/24 01:01 Temperature 97.9 F Temperature Source Temporal Pulse Rate 126 H 127 H (more content not included)... Normal [facility] Hematocrit Auto (Bld) [Volum e fraction]Ordered By: Natalie Jeffery on 07-22-2024 Hematocrit (Bld) [Volume fraction] 45.2 % 40-54 [facility] Hemoglobin measurementOrdere d By: Natalie Jeffery on 07-22-2024 Hemoglobin (Bld) [Mass/Vol] 15.9 g/dL 13.0-16.5 [facility] Immature granulocytes/100 WB C Auto (Bld)Ordered By: Natalie Jeffery on 07-22-2024 Immature granulocytes/100 WBC (Bld) 0.600 % 0.0-0.9 [facility] Comment on above: IG% - Immature Granu locytes (promyelocytes, myelocytes and metamyelocytes) > 1% indicates that a LEFT SHIFT is Present. Influenza virus A and B and SARS-CoV-2 (COVID-19) and Respiratory syncytial virus RNAOrdered By: Natalie Jeffery on 07-22-2024 SARS-CoV-2 (COVID-19) RNA DANA+probe Ql (Unsp spec) [facility] L499.0042on 07-22-2024 Trop T High Sen 12 ng/L Normal <=22 [facility] Comment on above: Performed By: #### L 499.0042 #### [facility] [address] [place], [place], [address] L499.0043on 07-22-2024 Trop T High Sen 8 ng/L Normal <=22 [facility] Comment on above: Performed By: #### L 499.0043 #### [facility] [address] [place], [place], [address] L501.4021on 07-22-2024 Trop T High Sen 10 ng/L Normal <=22 [facility] Comment on above: Performed By: #### L 499.0042 #### [facility] [address] [place], [place], [id number] Lymphocytes Auto (Unsp spec) [#/Vol]Ordered By: Natalie Jeffery on 07-22-2024 Lymphocytes (Bld) [#/Vol] 1.75 10*3/uL 0.83-4.51 [facility] Lymphocytes/100 WBC Auto (Un sp spec)Ordered By: Natalie Jeffery on 07-22-2024 Lymphocytes/100 WBC (Bld) 16.6 % Low 19-41 [facility] M100.678on 07-22-2024 M100.678 Pending SARS-CoV-2 (COVID 19) Negative INFLUENZA A Negative INFLUENZA B Negative RSV PCR Negative Normal [facility] Comment on above: Performed By: #### L 100.0100, L500.2500 #### [facility] [address] [place], [place], [address] MCV (mean corpuscular volume ) determinationOrdered By: Natalie Jeffery on 07-22-2024 MCV (RBC) [Entitic vol] 83.7 fL 80-94 [facility] Magnesiumon 07-22-2024 Magnesium [Mass/Vol] 1.6 mg/dL Normal 1.5-2.2 [facility] Comment on above: Performed By: #### L 499.0042 #### [facility] [address] [place], [place], [address] Mean corpuscular hemoglobin (MCH) determinationOrdered By: Natalie Jeffery on 07-22-2024 MCH (RBC) [Entitic mass] 29.4 pg 27.0-32.0 [facility] Mean corpuscular hemoglobin concentration (MCHC) determinationOrdered By: Natalie Jeffery on 07-22-2024 MCHC (RBC) [Mass/Vol] 35.2 g/dL 32-36 [facility] Mean platelet volume determi nationOrdered By: Natalie Jeffery on 03-27-2025 Platelet mean volume (Bld) [Entitic vol] 9.2 fL 6.2-12.0 [facility] Monocyte percentageOrdered B y: Natalie Jeffery on 07-22-2024 Monocytes/100 WBC (Bld) 7.6 % 0-10 [facility] Neutrophil percentageOrdered By: Natalie Jeffery on 07-22-2024 Neutrophils/100 WBC (Bld) 70.1 % High 47-70 [facility] No Panel InformationOrdered By: Lisa Wallis on 07-22-2024 Blood Gas Sample Site L Radial [facility] Blood Gas Specimen Type ART [facility] Blood Gas Vent Mode Not entered [facility] Oxygen Delivery Device Cannula [facility] No Panel InformationOrdered By: Natalie Jeffery on 07-22-2024 Blood Gas Clinical Comments See comment [facility] Comment on above: AVAPS 450vt 12rr 26m axP 16minP +8 30% Blood Gas Sample Site L Radial [facility] Blood Gas Specimen Type ART [facility] Blood Gas Vent Mode Not entered [facility] Oxygen Delivery Device BiPAP [facility] Troponin T High Sensitivity 10 ng/L <22 [facility] Nucleated red blood cell per centageOrdered By: Natalie Jeffery on 07-22-2024 Nucleated RBC/100 WBC (Bld) [Ratio] 0 % 0-5 [facility] Oxygen saturation measuremen tOrdered By: Lisa Wallis on 07-22-2024 Blood Gas Oxygen Saturation 95 % 95-99 [facility] Oxygen saturation measuremen tOrdered By: Natalie Jeffery on 07-22-2024 Blood Gas Oxygen Saturation 96 % 95-99 [facility] Partial pressure of carbon d ioxide measurementOrdered By: Lisa Wallis on 07-22-2024 Arterial Blood Partial Pressure CO2 36.7 mmHg 35-45 [facility] Partial pressure of carbon d ioxide measurementOrdered By: Natalie Jeffery on 07-22-2024 Arterial Blood Partial Pressure CO2 46.6 mmHg High 35-45 [facility] Partial pressure of oxygen m easurementOrdered By: Lisa Wallis on 07-22-2024 Arterial Blood Partial Pressure O2 76 mmHG 75-100 [facility] Partial pressure of oxygen m easurementOrdered By: Natalie Jeffery on 07-22-2024 Arterial Blood Partial Pressure O2 86 mmHG 75-100 [facility] Phosphoruson 07-22-2024 Phosphate [Mass/Vol] 1.8 mg/dL Low 2.7-4.5 [facility] Comment on above: Performed By: #### L 100.0100, L500.2500, L501.5200 #### [facility] [address] [place], [address] Platelet countOrdered By: Oliverio Jeffery on 07-22-2024 Platelets (Bld) [#/Vol] 155 10*3/uL 150-450 [facility] Potassium (Unsp spec) [Mass/ Vol]Ordered By: Natalie Jeffery on 07-22-2024 Potassium [Moles/Vol] 4.1 mmol/L 3.3-5.1 [facility] RBC Auto (Bld) [#/Vol]Ordere d By: Natalie Jeffery on 07-22-2024 RBC (Bld) [#/Vol] 5.40 10*6/uL 4.6-6.2 [facility] RESPIRATORY PANEL MOLECULARo n 07-22-2024 RP PANEL ADENOVIRUS Not Detected INFLUENZA A Not Detected INFLUENZA A (SUBTYPE H1) Not Detected INFLUENZA A (SUBTYPE H3) Not Detected INFLUENZA B Not Detected HUMAN METAPHNEUMO Not Detected PARAINFLUENZA 1 Not Detected PARAINFLUENZA 2 Not Detected PARAINFLUENZA 3 Not Detected PARAINFLUENZA 4 Not Detected RHINOVIRUS Not Detected RSV A Not Detected RSV B Not Detected Normal [facility] Comment on above: Performed By: #### L 499.0042 #### [facility] [address] [place], [place], [id number] Respiratory pathogens DNA an d RNA panel DANA+probe (Resp)Ordered By: Lisa Wallis on 07-22-2024 Respiratory Panel (PCR) [facility] Serum creatinine measurement (mass/volume)Ordered By: Natalie Jeffery on 07-22-2024 Creatinine [Mass/Vol] 1.21 mg/dL High 0.70-1.20 [facility] Serum glucose measurement (m ass/volume)Ordered By: Natalie Jeffery on 07-22-2024 Glucose [Mass/Vol] 94 mg/dL 70-99 [facility] Serum or plasma calcium ginny urement (mass/volume)Ordered By: Natalie Jeffery on 07-22-2024 Calcium [Mass/Vol] 9.6 mg/dL 7.6-11.0 [facility] Serum or plasma urea nitroge n measurement (mass/volume)Ordered By: Natalie Jeffery on 07-22-2024 Urea nitrogen [Mass/Vol] 23 mg/dL High 4-19 [facility] Sodium levelOrdered By: Natalie Jeffery on 07-22-2024 Sodium [Moles/Vol] 141 mmol/L 133-145 [facility] TSH DL <= 0.005 mIU/L QnOrde red By: Lisa Wallis on 07-22-2024 Thyroid Stimulating Hormone (TSH) 0.594 uIU/mL 0.300-4.20 0 [facility] Thyroid Stim Hormone (TSH)on 07-22-2024 TSH 0.594 uIU/mL Normal 0.300-4.20 0 [facility] Comment on above: Performed By: #### L 100.0100, L500.2500, L501.5200 #### [facility] [address] [place], [place], [address] Total carbon dioxide measure mentOrdered By: Lisa Wallis on 07-22-2024 Blood Gas Total CO2 23 mmol/L [facility] Total carbon dioxide measure mentOrdered By: Natalie Jeffery on 07-22-2024 Blood Gas Total CO2 29 mmol/L [facility] Troponin T.cardiac High sens itivity method [Mass/Vol]Ordered By: Natalie Jeffery on 07-22-2024 Troponin T High Sensitivity 4 Hour 8 ng/L <22 [facility] Troponin T High Sensitivity 2 Hour 12 ng/L <22 [facility] White blood cell (WBC) count Ordered By: Natalie Jeffery on 07-22-2024 WBC (Bld) [#/Vol] 10.5 10*3/uL 4.4-11.0 [facility] pH (Unsp spec)Ordered By: Jatinder Wallis on 07-22-2024 Blood Gas pH 7.39 7.35-7.45 [facility] pH (Unsp spec)Ordered By: Oliverio Jeffery on 07-22-2024 Blood Gas pH 7.38 7.35-7.45 [facility] Absolute neutrophil countOrd ered By: Lisa Wallis on 07-06-2024 Neutrophils (Bld) [#/Vol] 4.9 10*3/uL 2.0-7.7 [facility] Anion gap in Serum or Plasma Ordered By: Lisa Wallis on 07-06-2024 Anion gap [Moles/Vol] 16 mmol/L High 5-15 [facility] BUN/creatinine ratioOrdered By: Lisa Wallis on 07-06-2024 Urea nitrogen/Creatinine [Mass ratio] 18.2 mg/mg 10-20 [facility] Base excess Calc (BldV) [Mol es/Vol]Ordered By: Lisa Wallis on 07-06-2024 Venous Blood Base Excess -1 mmol/L -1.0-3.5 [facility] Basophil percentageOrdered B y: Lisa Wallis on 07-06-2024 Basophils/100 WBC (Bld) 0.2 % 0-1 [facility] Bilirubin, totalOrdered By: Lisa Wallis on 07-06-2024 Bilirubin [Mass/Vol] 1.28 mg/dL 0.00-1.30 [facility] CBC W/Diff, Automatedon 06-26 Absolute Lymph 0.51 X10 3/uL Low 0.83-4.51 [facility] Comment on above: Performed By: #### L 100.0100, L500.2500, L501.5200 #### [facility] [address] [place], [address] Absolute Neut 4.9 X10 3/uL Normal 2.0-7.7 [facility] Comment on above: Performed By: #### L 100.0100, L500.2500, L501.5200 #### [facility] [address] [place], [address] Basophils/100 WBC (Bld) 0.2 % Normal 0-1 [facility] Comment on above: Performed By: #### L 100.0100, L500.2500, L501.5200 #### [facility] [address] [place], [address] Eosinophils/100 WBC (Bld) 0.2 % Normal 0-5 [facility] Comment on above: Performed By: #### L 100.0100, L500.2500, L501.5200 #### [facility] [address] [place], [address] Erythrocyte distribution width (RBC) [Ratio] 12.6 % Normal 11.6-14.6 [facility] Comment on above: Performed By: #### L 100.0100, L500.2500, L501.5200 #### [facility] [address] [place], [address] Hematocrit (Bld) [Volume fraction] 46.1 % Normal 40-54 [facility] Comment on above: Performed By: #### L 100.0100, L500.2500, L501.5200 #### [facility] [address] [place], [address] Hemoglobin (Bld) [Mass/Vol] 15.9 g/dL Normal 13.0-16.5 [facility] Comment on above: Performed By: #### L 100.0100, L500.2500, L501.5200 #### [facility] [address] [place], [address] IG% 0.500 Normal 0.0-0.9 [facility] Comment on above: Result Comment: IG% - Immature Granulocytes (promyelocytes, myelocytes and metamyelocytes) > 1% indicates that a LEFT SHIFT is Present. Performed By: #### L 100.0100, L500.2500, L501.5200 #### [facility] [address] [place], [address] Lymphocytes/100 WBC (Bld) 9.2 % Low 19-41 [facility] Comment on above: Performed By: #### L 100.0100, L500.2500, L501.5200 #### [facility] [address] [place], [address] MCH (RBC) [Entitic mass] 29.2 pg Normal 27.0-32.0 [facility] Comment on above: Performed By: #### L 100.0100, L500.2500, L501.5200 #### [facility] [address] [place], [address] MCHC (RBC) [Mass/Vol] 34.5 g/dL Normal 32-36 [facility] Comment on above: Performed By: #### L 100.0100, L500.2500, L501.5200 #### [facility] [address] [place], [address] MCV (RBC) [Entitic vol] 84.6 fL Normal 80-94 [facility] Comment on above: Performed By: #### L 100.0100, L500.2500, L501.5200 #### [facility] [address] [place], [address] Monocytes/100 WBC (Bld) 1.1 % Normal 0-10 [facility] Comment on above: Performed By: #### L 100.0100, L500.2500, L501.5200 #### [facility] [address] [place], [address] Neutrophils/100 WBC (Bld) 88.8 % High 47-70 [facility] Comment on above: Performed By: #### L 100.0100, L500.2500, L501.5200 #### [facility] [address] [place], [address] Nucleated RBC (Bld) [#/Vol] 0 10*3/uL Normal 0-5 [facility] Comment on above: Performed By: #### L 100.0100, L500.2500, L501.5200 #### [facility] [address] [place], [address] Platelet mean volume (Bld) [Entitic vol] 9.1 fL Normal 6.2-12.0 [facility] Comment on above: Performed By: #### L 100.0100, L500.2500, L501.5200 #### [facility] [address] [place], [address] Platelets (Bld) [#/Vol] 203 10*3/uL Normal 150-450 [facility] Comment on above: Performed By: #### L 100.0100, L500.2500, L501.5200 #### [facility] [address] [place], [address] RBC (Bld) [#/Vol] 5.45 10*6/uL Normal 4.6-6.2 [facility] Comment on above: Performed By: #### L 100.0100, L500.2500, L501.5200 #### [facility] [address] [place], [address] RDW SD 38.1 fl Normal 35.1-43.9 [facility] Comment on above: Performed By: #### L 100.0100, L500.2500, L501.5200 #### [facility] [address] [place], [address] WBC (Bld) [#/Vol] 5.5 10*3/uL Normal 4.4-11.0 [facility] Comment on above: Performed By: #### L 100.0100, L500.2500, L501.5200 #### [facility] [address] [place], [address] CO2 (BldV) [Moles/Vol]Ordere d By: Lisa Wallis on 07-06-2024 CO2 [Moles/Vol] 24 mmol/L 23-33 [facility] CO2 (BldV) [Partial pressure ]Ordered By: Lisa Wallis on 07-06-2024 Bed Mix Venous Bld PCO2 at Pat Temp 36.2 mmHg Low 41-51 [facility] Carbon dioxide, total [Moles /volume] in Central venous bloodOrdered By: Lisa Wallis on 07-06-2024 CO2 [Moles/Vol] 17.9 mmol/L Low 21.0-32.0 [facility] Chloride assayOrdered By: Jatinder Wallis on 07-06-2024 Chloride [Moles/Vol] 103 mmol/L 98-108 [facility] Comprehensive Metabolic Prof ilon 07-06-2024 Albumin [Mass/Vol] 4.6 g/dL Normal 3.5-5.0 [facility] Comment on above: Performed By: #### L 100.0100, L500.2500, L501.5200 #### [facility] [address] [place], [address] Albumin/Globulin [Mass ratio] 1.5 {ratio} Normal 0.9-2.4 [facility] Comment on above: Performed By: #### L 100.0100, L500.2500, L501.5200 #### [facility] [address] [place], [address] ALK PHOS 81 U/L Normal 40-129 [facility] Comment on above: Performed By: #### L 100.0100, L500.2500, L501.5200 #### [facility] [address] [place], [address] ALT [Catalytic activity/Vol] 23 U/L Normal <=46 [facility] Comment on above: Performed By: #### L 100.0100, L500.2500, L501.5200 #### [facility] [address] [place], [address] AST [Catalytic activity/Vol] 28 U/L Normal <=37 [facility] Comment on above: Performed By: #### L 100.0100, L500.2500, L501.5200 #### [facility] [address] [place], [address] Bilirubin [Mass/Vol] 1.28 mg/dL Normal 0.00-1.30 [facility] Comment on above: Performed By: #### L 100.0100, L500.2500, L501.5200 #### [facility] [address] [place], [address] BUN/CRE 18.2 RATIO Normal 10-20 [facility] Comment on above: Performed By: #### L 100.0100, L500.2500, L501.5200 #### [facility] [address] [place], [address] Calcium [Mass/Vol] 9.5 mg/dL Normal 7.6-11.0 [facility] Comment on above: Performed By: #### L 100.0100, L500.2500, L501.5200 #### [facility] [address] [place], [address] Chloride [Moles/Vol] 103 mmol/L Normal 98-108 [facility] Comment on above: Performed By: #### L 100.0100, L500.2500, L501.5200 #### [facility] [address] [place], [address] CO2 [Moles/Vol] 17.9 mmol/L Low 21.0-32.0 [facility] Comment on above: Performed By: #### L 100.0100, L500.2500, L501.5200 #### [facility] [address] [place], [address] Creatinine [Mass/Vol] 1.01 mg/dL Normal 0.70-1.20 [facility] Comment on above: Performed By: #### L 100.0100, L500.2500, L501.5200 #### [facility] [address] [place], [address] ECRCL 78.15 ml/min Normal 50-250 [facility] Comment on above: Performed By: #### L 100.0100, L500.2500, L501.5200 #### [facility] [address] [place], [address] GAP 16 High 5-15 [facility] Comment on above: Performed By: #### L 100.0100, L500.2500, L501.5200 #### [facility] [address] [place], [address] GFR/1.73 sq M.predicted among non-blacks MDRD (S/P/Bld) [Vol rate/Area] 94 mL/min/{1.73_m2} Normal >60 [facility] Comment on above: Result Comment: mL/m in/1.73m2 CKD-EPI Creatinine Equation (2020) Performed By: #### L 100.0100, L500.2500, L501.5200 #### [facility] [address] [place], [address] Globulin (S) [Mass/Vol] 3.0 g/dL Normal 2.2-4.2 [facility] Comment on above: Performed By: #### L 100.0100, L500.2500, L501.5200 #### [facility] [address] [place], [address] Glucose [Mass/Vol] 169 mg/dL High 70-99 [facility] Comment on above: Performed By: #### L 100.0100, L500.2500, L501.5200 #### [facility] [address] [place], [address] Potassium [Moles/Vol] 4.0 mmol/L Normal 3.3-5.1 [facility] Comment on above: Performed By: #### L 100.0100, L500.2500, L501.5200 #### [facility] [address] [place], [address] Sodium [Moles/Vol] 136 mmol/L Normal 133-145 [facility] Comment on above: Performed By: #### L 100.0100, L500.2500, L501.5200 #### [facility] [address] [place], [address] T PROT 7.6 g/dL Normal 5.9-8.4 [facility] Comment on above: Performed By: #### L 100.0100, L500.2500, L501.5200 #### [facility] [address] [place], [address] Urea nitrogen [Mass/Vol] 18 mg/dL Normal 4-19 [facility] Comment on above: Performed By: #### L 100.0100, L500.2500, L501.5200 #### [facility] [address] [place], [address] Determination of fraction of inspired oxygenOrdered By: Lisa Wallis on 07-06-2024 Blood Gas Oxygen Percent 2.0 [facility] Eosinophil percentageOrdered By: Lisa Wallis on 07-06-2024 Eosinophils/100 WBC (Bld) 0.2 % 0-5 [facility] Erythrocyte distribution wid th ratioOrdered By: Lisa Wallis on 07-06-2024 Erythrocyte distribution width (RBC) [Ratio] 12.6 % 11.6-14.6 [facility] Erythrocyte distribution wid th standard deviationOrdered By: Lisa Wallis on 07-06-2024 Erythrocyte distribution width (RBC) [Entitic vol] 38.1 fL 35.1-43.9 [facility] Estimation of creatinine niru aranceOrdered By: Lisa Wallis on 07-06-2024 Estimated Creatinine Clearance Calc 78.15 ml/min 50-250 [facility] GFR/1.73 sq M.predicted jyoti g non-blacks MDRD (S/P/Bld) [Vol rate/Area]Ordered By: Lisa Wallis on 07-06-2024 Estimated GFR (MDRD) Non-Af Amer 94 >60 [facility] Comment on above: mL/min/1.73m2 CKD-EP I Creatinine Equation (2020) H AND P Exam - [facility] 07-06-2024 H&P Exam - Hospitalist [facility] Medical Records Department [address] [place] [address] H P Exam - Hospitalist 07/06/24 0218 MR#: [id number] Acct: [id number] Name: DANNY BEDYOA Rep #: [id number] : 1980 44 From: Lisa Jain DO PCP: Dr. Lexi Barnes MD Status:ADM IN Location: [facility] [place] [id number] [facility] - General General Date of Admission: 07/06/24 Date of Service: 07/06/24 Chief Complaint: SOB and Wheezing. HPI Narrative DANNY BEDOYA, is a 44 M with a past medical history of essential hypertension; on amlodipine, history of EtOH Abuse (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); with cirrhosis, history of liver transplant; on mycophenolate mofetil BID, tacrolimus BID and TMP-SMX, history of cannabis abuse, GERD; on pantoprazole, history of asthma; on prednisone taper listed allergy to lisinopril (angioedema), who presents to [facility] ER complaining of shortness of breath and wheezing. Mr. Bedoya reports his symptoms began on the evening of July 05, 2024 after going out to dinner with his significant other when they were walking back from dinner he noted the abrupt-onset of shortness of breath and wheezing. He states that he had been feeling fine prior to this evening without viral type illness or congestion. He denies recent sick contacts or known toxic exposures that could have triggered his asthma exacerbation. He states his symptoms are nearly identical to his previous acute asthma exacerbations. He admits to nonproductive cough but he denies associated fever, chills, changes in vision, runny nose, sore throat, chest pain, abdominal pain, nausea, vomiting, diarrhea, constipation, dysuria, myalgias or headache. In the ER he was diagnosed with AE Asthma complicated by clinical evidence of respiratory insufficiency patient requiring initiation of 2L NC and he was then admitted to the general medical floor for ongoing care for stay that is expected to extend beyond 2 midnights. [facility] Medical History Cirrhosis Asthma Alcohol abuse Angioedema Home Medications ???Medication ???Instructions ???Recorded ???Last Taken ???Type fluticasone 100 mcg-salmeterol 50 1 ea IH DAILY breathing 01/04/19 Unknown History mcg/dose blistr powdr for inhalation amlodipine 10 mg tablet (Norvasc) 10 mg PO DAILY 05/20/22 Unknown H istory mycophenolate mofetil 500 mg 500 mg PO BID 05/20/22 Unknown His tory tablet (CellCept) tacrolimus 1 mg capsule,extended 2 mg PO BID 05/20/22 Unknown Histo ry release 24 hr albuterol sulfate 2.5 mg/3 mL 2.5 mg (3 mL) inhalation Q4H PRN 1 Unknown Rx (0.083 %) solution for nebulization #25 vials tacrolimus 1 mg capsule, 2 mg PO BID 02/03/24 Unknown Histo ry immediate-release Allergy/AdvReac Type Severity Reaction Status Date / Time lisinopril Allergy Angioedema Verified 07/05/24 21:59 Family History Father Alcoholism Asthma Mother Asthma Grandmother Cancer brain Surgical History Hx of liver transplant Social History household members: none 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 Eyes: Patient denies changes in vision or discharge from eyes. ENT: Patient denies runny nose, sore throat or ear pain. Resp: Patient admits to shortness of breath at rest with wheezing and nonproductive cough as per HPI. CV: Patient denies chest pain, palpitations, heart racing or lower extremity edema. GI: Patient denies abdominal pain, nausea, vomiting, diarrhea or constipation. : Patient denies dysuria or hematuria. MSK: Patient denies arthralgias or myalgias. Skin: Patient denies rash, abscess, wounds or jaundice. Psych: Patient denies symptoms of uncontrolled depression or anxiety. Neuro: Patient denies headache, paresthesias or focal neurologic deficits. Allergy: Patient denies lip swelling, tongue swelling or urticaria. Hematology: Patient denies easy bleeding or easy bruisability. Endocrinology: Patient denies polyuria, polydipsia or polyphagia. 14 point ROS was otherwise negative except for positives in HPI. Vital Signs Vital Signs Vital Signs: 07/05/24 21:59 07/05/24 22:12 07/05/24 22:12 Temperature 98.5 F Temperature Source Temporal Pulse Rate 107 H Respiratory Rate 30 H Respiratory (more content not included)... Normal [facility] Hematocrit Auto (Bld) [Volum e fraction]Ordered By: Lisa Wallis on 07-06-2024 Hematocrit (Bld) [Volume fraction] 46.1 % 40-54 [facility] Hemoglobin measurementOrdere d By: Lisa Wallis on 07-06-2024 Hemoglobin (Bld) [Mass/Vol] 15.9 g/dL 13.0-16.5 [facility] Immature granulocytes/100 WB C Auto (Bld)Ordered By: Lisa Wallis on 07-06-2024 Immature granulocytes/100 WBC (Bld) 0.500 % 0.0-0.9 [facility] Comment on above: IG% - Immature Granu locytes (promyelocytes, myelocytes and metamyelocytes) > 1% indicates that a LEFT SHIFT is Present. International normalized rat io (INR) calculationOrdered By: Lisa Wallis on 07-06-2024 INR Coag (Bld) [Relative time] 1.1 {INR} [facility] - Chemistry and C hemistry - challengeOrdered By: Lisa Wallis on 07-06-2024 AST [Catalytic activity/Vol] 28 U/L <38 [facility] Lymphocytes Auto (Unsp spec) [#/Vol]Ordered By: Lisa Wallis on 07-06-2024 Lymphocytes (Bld) [#/Vol] 0.51 10*3/uL Low 0.83-4.51 [facility] Lymphocytes/100 WBC Auto (Un sp spec)Ordered By: Lisa Wallis on 07-06-2024 Lymphocytes/100 WBC (Bld) 9.2 % Low 19-41 [facility] MCV (mean corpuscular volume ) determinationOrdered By: Lisa Wallis on 07-06-2024 MCV (RBC) [Entitic vol] 84.6 fL 80-94 [facility] Mean corpuscular hemoglobin (MCH) determinationOrdered By: Lisa Wallis on 07-06-2024 MCH (RBC) [Entitic mass] 29.2 pg 27.0-32.0 [facility] Mean corpuscular hemoglobin concentration (MCHC) determinationOrdered By: Lisa Wallis on 07-06-2024 MCHC (RBC) [Mass/Vol] 34.5 g/dL 32-36 [facility] Mean platelet volume determi nationOrdered By: Lisa Wallis on 07-06-2024 Platelet mean volume (Bld) [Entitic vol] 9.1 fL 6.2-12.0 [facility] Monocyte percentageOrdered B y: Lisa Wallis on 07-06-2024 Monocytes/100 WBC (Bld) 1.1 % 0-10 [facility] Neutrophil percentageOrdered By: Lisa Wallis on 07-06-2024 Neutrophils/100 WBC (Bld) 88.8 % High 47-70 [facility] No Panel InformationOrdered By: Lisa Wallis on 07-06-2024 Blood Gas Sample Site Not entered [facility] Blood Gas Specimen Type DARON [facility] Oxygen Delivery Device Cannula [facility] Nucleated red blood cell per centageOrdered By: Lisa Wallis on 07-06-2024 Nucleated RBC/100 WBC (Bld) [Ratio] 0 % 0-5 [facility] Oxygen (BldV) [Partial press ure]Ordered By: Lisa Wallis on 07-06-2024 Venous Blood Partial Pressure O2 67 mmHg High 25-40 [facility] Phosphoruson 07-06-2024 Phosphate [Mass/Vol] 2.3 mg/dL Low 2.7-4.5 [facility] Comment on above: Performed By: #### L 100.0100, L500.2500, L501.5200 #### [facility] [address] [place], [address] Platelet countOrdered By: Jatinder Wallis on 07-06-2024 Platelets (Bld) [#/Vol] 203 10*3/uL 150-450 [facility] Potassium (Unsp spec) [Mass/ Vol]Ordered By: Lisa Wallis on 07-06-2024 Potassium [Moles/Vol] 4.0 mmol/L 3.3-5.1 [facility] Prothrombin Time w/INRon INR Coag (PPP) [Relative time] 1.1 {INR} Normal [facility] Comment on above: Performed By: #### L 100.0100, L500.2500, L501.5200 #### [facility] [address] [place], [address] PT Coag (PPP) [Time] 14.3 s Normal 11.7-14.9 [facility] Comment on above: Performed By: #### L 100.0100, L500.2500, L501.5200 #### [facility] [address] [place], [address] Prothrombin timeOrdered By: Lisa Wallis on 07-06-2024 PT Coag (PPP) [Time] 14.3 s 11.7-14.9 [facility] RBC Auto (Bld) [#/Vol]Ordere d By: Lisa Wallis on 07-06-2024 RBC (Bld) [#/Vol] 5.45 10*6/uL 4.6-6.2 [facility] Serum creatinine measurement (mass/volume)Ordered By: Lisa Wallis on 07-06-2024 Creatinine [Mass/Vol] 1.01 mg/dL 0.70-1.20 [facility] Serum globulin measurementOr dered By: Lisa Wallis on 07-06-2024 Globulin (S) [Mass/Vol] 3.0 g/dL 2.2-4.2 [facility] Serum glucose measurement (m ass/volume)Ordered By: Lisa Wallis on 07-06-2024 Glucose [Mass/Vol] 169 mg/dL High 70-99 [facility] Serum or plasma alanine rodas otransferase (ALT) measurementOrdered By: Lisa Wallis on 07-06-2024 ALT [Catalytic activity/Vol] 23 U/L <47 [facility] Serum or plasma albumin ginny urement (mass/volume)Ordered By: Lisa Wallis on 07-06-2024 Albumin [Mass/Vol] 4.6 g/dL 3.5-5.0 [facility] Serum or plasma albumin/glob ulin mass ratioOrdered By: Lisa Wallis on 07-06-2024 Albumin/Globulin [Mass ratio] 1.5 {ratio} 0.9-2.4 [facility] Serum or plasma alkaline yarelis sphatase measurementOrdered By: Lisa Wallis on 07-06-2024 ALP [Catalytic activity/Vol] 81 U/L 40-129 [facility] Serum or plasma calcium ginny urement (mass/volume)Ordered By: Lisa Wallis on 07-06-2024 Calcium [Mass/Vol] 9.5 mg/dL 7.6-11.0 [facility] Serum or plasma urea nitroge n measurement (mass/volume)Ordered By: Lisa Wallis on 07-06-2024 Urea nitrogen [Mass/Vol] 18 mg/dL 4-19 [facility] Serum phosphorus measurement Ordered By: Lisa Wallis on 07-06-2024 Phosphorus Level 2.3 mg/dL Low 2.7-4.5 [facility] Sodium levelOrdered By: Fritz Wallis on 07-06-2024 Sodium [Moles/Vol] 136 mmol/L 133-145 [facility] Thyroid Stim Hormone (TSH)on 07-06-2024 TSH 2.050 uIU/mL Normal 0.300-4.20 0 [facility] Comment on above: Performed By: #### L 100.0100, L500.2500 #### [facility] [address] [place], [address] Total proteinOrdered By: Urbano esteves Bimal on 07-06-2024 Protein [Mass/Vol] 7.6 g/dL 5.9-8.4 [facility] Venous Blood Gason 5 Blood Gas Type DARON Normal [facility] Comment on above: Performed By: #### L 499.0042 #### [facility] [address] [place], [address] CO2 [Moles/Vol] 24 mmol/L Normal 23-33 [facility] Comment on above: Performed By: #### L 499.0042 #### [facility] [address] [place], [address] FI02 2.0 Normal [facility] Comment on above: Performed By: #### L 499.0042 #### [facility] [address] [place], [address] HCO3 (Bld) [Moles/Vol] 23 mmol/L Normal 22-26 [facility] Comment on above: Performed By: #### L 499.0042 #### [facility] [address] [place], [address] O2 Delivery Dev Cannula Normal [facility] Comment on above: Performed By: #### L 499.0042 #### [facility] [address] [place], [address] SITE Not entered [facility] Comment on above: Performed By: #### L 499.0042 #### [facility] [address] [place], [address] VBG BE -1 mmol/L Normal -1.0-3.5 [facility] Comment on above: Performed By: #### L 499.0042 #### [facility] [address] [place], [address] VBG pCO2 36.2 mmHg Low 41-51 [facility] Comment on above: Performed By: #### L 499.0042 #### [facility] [address] [place], [address] VBG pH 7.42 Normal 7.32-7.42 [facility] Comment on above: Performed By: #### L 499.0042 #### [facility] [address] [place], [address] VBG PO2 67 mmHg High 25-40 [facility] Comment on above: Performed By: #### L 499.0042 #### [facility] [address] [place], [address] VBG SO2 93 High 50-70 [facility] Comment on above: Performed By: #### L 499.0042 #### [facility] [address] [place], [place], [address] Venous blood bicarbonate mary surementOrdered By: Lisa Wallis on 07-06-2024 HCO3 (Bld) [Moles/Vol] 23 mmol/L 22-26 [facility] Venous blood oxygen saturati on measurementOrdered By: Lisa Wallis on 07-06-2024 Oxygen saturation in Blood 93 % High 50-70 [facility] White blood cell (WBC) count Ordered By: Lisa Wallis on 07-06-2024 WBC (Bld) [#/Vol] 5.5 10*3/uL 4.4-11.0 [facility] pH (BldV)Ordered By: Lisa arriaga on 07-06-2024 Venous Blood pH 7.42 7.32-7.42 [facility] Absolute neutrophil countOrd ered By: Jam Jiang on 07-05-2024 Neutrophils (Bld) [#/Vol] 5.3 10*3/uL 2.0-7.7 [facility] Anion gap in Serum or Plasma Ordered By: Jam Jiang on 07-05-2024 Anion gap [Moles/Vol] 15 mmol/L - [facility] BUN/creatinine ratioOrdered By: Jam Jiang on 07-05-2024 Urea nitrogen/Creatinine [Mass ratio] 17.7 mg/mg 02-14 [facility] Basic Metabolic Profile (BMP )on 07-05-2024 BUN/CRE 17.7 RATIO Normal 02-14 [facility] Comment on above: Performed By: #### L 100.0100, L500.2500, L501.5200 #### [facility] [address] [place], [address] Calcium [Mass/Vol] 9.6 mg/dL Normal 7.6-11.0 [facility] Comment on above: Performed By: #### L 100.0100, L500.2500, L501.5200 #### [facility] [address] [place], [address] Chloride [Moles/Vol] 103 mmol/L Normal 98-108 [facility] Comment on above: Performed By: #### L 100.0100, L500.2500, L501.5200 #### [facility] [address] [place], [address] CO2 [Moles/Vol] 21.0 mmol/L Normal 21.0-32.0 [facility] Comment on above: Performed By: #### L 100.0100, L500.2500, L501.5200 #### [facility] [address] [place], [address] Creatinine [Mass/Vol] 1.00 mg/dL Normal 0.70-1.20 [facility] Comment on above: Performed By: #### L 100.0100, L500.2500, L501.5200 #### [facility] [address] [place], [address] GAP 15 Normal - [facility] Comment on above: Performed By: #### L 100.0100, L500.2500, L501.5200 #### [facility] [address] [place], [address] GFR/1.73 sq M.predicted among non-blacks MDRD (S/P/Bld) [Vol rate/Area] 95 mL/min/{1.73_m2} Normal >60 [facility] Comment on above: Result Comment: mL/m in/1.73m2 CKD-EPI Creatinine Equation (2020) Performed By: #### L 100.0100, L500.2500, L501.5200 #### [facility] [address] [place], [address] Glucose [Mass/Vol] 102 mg/dL High 70-99 [facility] Comment on above: Performed By: #### L 100.0100, L500.2500, L501.5200 #### [facility] [address] [place], [address] Potassium [Moles/Vol] 3.8 mmol/L Normal 3.3-5.1 [facility] Comment on above: Performed By: #### L 100.0100, L500.2500, L501.5200 #### [facility] [address] [place], [address] Sodium [Moles/Vol] 139 mmol/L Normal 133-145 [facility] Comment on above: Performed By: #### L 100.0100, L500.2500, L501.5200 #### [facility] [address] [place], [address] Urea nitrogen [Mass/Vol] 18 mg/dL Normal 4-19 [facility] Comment on above: Performed By: #### L 100.0100, L500.2500, L501.5200 #### [facility] [address] [place], [address] Basophil percentageOrdered B y: Jam Jiang on 03-10-2025 Basophils/100 WBC (Bld) 1.1 % High 0-1 [facility] CBC W/Diff, Automatedon 03-1 0-2025 Absolute Lymph 1.62 X10 3/uL Normal 0.83-4.51 [facility] Comment on above: Performed By: #### L 100.0100, L500.2500, L501.5200 #### [facility] [address] [place], [address] Absolute Neut 5.3 X10 3/uL Normal 2.0-7.7 [facility] Comment on above: Performed By: #### L 100.0100, L500.2500, L501.5200 #### [facility] [address] [place], [address] Basophils/100 WBC (Bld) 1.1 % High 0-1 [facility] Comment on above: Performed By: #### L 100.0100, L500.2500, L501.5200 #### [facility] [address] [place], [address] Eosinophils/100 WBC (Bld) 7.1 % High 0-5 [facility] Comment on above: Performed By: #### L 100.0100, L500.2500, L501.5200 #### [facility] [address] [place], [address] Erythrocyte distribution width (RBC) [Ratio] 12.6 % Normal 11.6-14.6 [facility] Comment on above: Performed By: #### L 100.0100, L500.2500, L501.5200 #### [facility] [address] [place], [address] Hematocrit (Bld) [Volume fraction] 46.9 % Normal 40-54 [facility] Comment on above: Performed By: #### L 100.0100, L500.2500, L501.5200 #### [facility] [address] [place], [address] Hemoglobin (Bld) [Mass/Vol] 16.4 g/dL Normal 13.0-16.5 [facility] Comment on above: Performed By: #### L 100.0100, L500.2500, L501.5200 #### [facility] [address] [place], [address] IG% 0.400 Normal 0.0-0.9 [facility] Comment on above: Result Comment: IG% - Immature Granulocytes (promyelocytes, myelocytes and metamyelocytes) > 1% indicates that a LEFT SHIFT is Present. Performed By: #### L 100.0100, L500.2500, L501.5200 #### [facility] [address] [place], [address] Lymphocytes/100 WBC (Bld) 19.5 % Normal 19-41 [facility] Comment on above: Performed By: #### L 100.0100, L500.2500, L501.5200 #### [facility] [address] [place], [address] MCH (RBC) [Entitic mass] 29.4 pg Normal 27.0-32.0 [facility] Comment on above: Performed By: #### L 100.0100, L500.2500, L501.5200 #### [facility] [address] [place], [address] MCHC (RBC) [Mass/Vol] 35.0 g/dL Normal 32-36 [facility] Comment on above: Performed By: #### L 100.0100, L500.2500, L501.5200 #### [facility] [address] [place], [address] MCV (RBC) [Entitic vol] 84.2 fL Normal 80-94 [facility] Comment on above: Performed By: #### L 100.0100, L500.2500, L501.5200 #### [facility] [address] [place], [address] Monocytes/100 WBC (Bld) 7.6 % Normal 0-10 [facility] Comment on above: Performed By: #### L 100.0100, L500.2500, L501.5200 #### [facility] [address] [place], [address] Neutrophils/100 WBC (Bld) 64.3 % Normal 47-70 [facility] Comment on above: Performed By: #### L 100.0100, L500.2500, L501.5200 #### [facility] [address] [place], [address] Nucleated RBC (Bld) [#/Vol] 0 10*3/uL Normal 0-5 [facility] Comment on above: Performed By: #### L 100.0100, L500.2500, L501.5200 #### [facility] [address] [place], [address] Platelet mean volume (Bld) [Entitic vol] 8.8 fL Normal 6.2-12.0 [facility] Comment on above: Performed By: #### L 100.0100, L500.2500, L501.5200 #### [facility] [address] [place], [address] Platelets (Bld) [#/Vol] 219 10*3/uL Normal 150-450 [facility] Comment on above: Performed By: #### L 100.0100, L500.2500, L501.5200 #### [facility] [address] [place], [address] RBC (Bld) [#/Vol] 5.57 10*6/uL Normal 4.6-6.2 [facility] Comment on above: Performed By: #### L 100.0100, L500.2500, L501.5200 #### [facility] [address] [place], [address] RDW SD 38.3 fl Normal 35.1-43.9 [facility] Comment on above: Performed By: #### L 100.0100, L500.2500, L501.5200 #### [facility] [address] [place] [place], [address] WBC (Bld) [#/Vol] 8.3 10*3/uL Normal 4.4-11.0 [facility] Comment on above: Performed By: #### L 100.0100, L500.2500, L501.5200 #### [facility] [address] [place] [place], [address] Carbon dioxide, total [Moles /volume] in Central venous bloodOrdered By: Jam Jiang on 07-05-2024 CO2 [Moles/Vol] 21.0 mmol/L 21.0-32.0 [facility] Chest PA and Lateralon 07-05 Chest PA and Lateral [facility] [address] [place] [address] Chest PA and Lateral MR#: [id number] Acct: [id number] Name: DANNY BEDOYA Rep #: [id number] : 1980 M 44 From: Anil lopez MD PCP: Dr. Lexi Barnes MD Status: REG ER Study: Chest PA and Lateral Date of Exam: 07/05/24 Exam# [id number] Ordering Dr: Jam Jiang DO PROCEDURE: CHEST PA AND LATERAL REASON FOR EXAM: DYSPNEA TECHNIQUE: Frontal and lateral views of the chest. COMPARISON: 06/11/2024 FINDINGS: The cardiothymic contour is normal. The lungs are clear. The bones are unremarkable. RAD/Chest PA and Lateral IMPRESSION: No acute cardiopulmonary process. Reading Location: [facility] CC: Dr. Lexi Barnes MD; Jam Jiang DO Bulker: Signed Normal [facility] Chloride assayOrdered By: Erin Jiang on 07-05-2024 Chloride [Moles/Vol] 103 mmol/L 98-108 [facility] Emergency Department Summary on 07-05-2024 Emergency Department Summary [facility] Medical Records Department [address] [place] [address] Emergency Department Summary 07/05/24 MR#: [id number] Acct: [id number] Name: DANNY BEDOYA Rep #: [id number] : 1980 44 From: Jam Jiang DO PCP: Dr. Lexi Barnes MD Status:ADM IN Location: [place] [id number] HPI History of Present Illness Chief Complaint: Shortness of Breath Informant: patient and spouse/S.O. Narrative Narrative: Patient is a 44-year-old male with past medical history of asthma and hypertension. He states that this evening he went out to dinner with his significant other and when they were walking back from dinner he started noticing he was developing wheezing and shortness of breath. He states that prior to this evening he has felt overall normal without sick symptoms. He denies any new exposure which could have led to an asthma exacerbation. However he has been having increasing shortness of breath and wheezing which feels similar to his past episodes of asthma attacks and therefore comes in for evaluation. [facility] Medical History Cirrhosis Asthma Alcohol abuse Angioedema Home Medications ???Medication ???Instructions ???Recorded ???Last Taken ???Type fluticasone 100 mcg-salmeterol 50 1 ea IH DAILY breathing 01/04/19 Unknown History mcg/dose blistr powdr for inhalation amlodipine 10 mg tablet (Norvasc) 10 mg PO DAILY 05/20/22 Unknown H istory mycophenolate mofetil 500 mg 500 mg PO BID 05/20/22 Unknown His tory tablet (CellCept) tacrolimus 1 mg capsule,extended 2 mg PO BID 05/20/22 Unknown Histo ry release 24 hr albuterol sulfate 2.5 mg/3 mL 2.5 mg (3 mL) inhalation Q4H PRN 1 Unknown Rx (0.083 %) solution for nebulization #25 vials tacrolimus 1 mg capsule, 2 mg PO BID 02/03/24 Unknown Histo ry immediate-release Allergy/AdvReac Type Severity Reaction Status Date / Time lisinopril Allergy Angioedema Verified 07/05/24 21:59 Family History Father Alcoholism Asthma Mother Asthma Grandmother Cancer brain Surgical History Hx of liver transplant Social History household members: none current occupational status: employed 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 [employer] Smoking Status: Never smoker Electronic Cigarette Use: not used alcohol intake: former details: former heavy drinker, 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 substance use type: marijuana what type of physical activity do you participate in: none do you feel safe at home: Yes ROS ROS ED Constitutional Constitutional ED: Denies chills or fever(s) Eyes Eyes: Denies blurry vision or change in vision ENT ENT ED: Denies rhinorrhea or sore throat Cardiovascular Cardiovascular: Denies chest pain Respiratory/Chest Respiratory/Chest: Reports cough and dyspnea Gastrointestinal Gastrointestinal: Denies abdominal pain, diarrhea, nausea or vomiting Genitourinary Genitourinary ED: Denies dysuria Musculoskeletal Musculoskeletal: Denies myalgias Integumentary Denies rash Neurologic Neurologic: Denies headache(s) Hematologic/Lymphatic Hematologic/Lymphatic: Denies easy bleeding or easy bruising Allergic/Immunologic Allergic/Immunologic ED: Denies mouth swelling, tongue swelling or urticaria EXAM Physical Exam Const Vital Signs: 07/05/24 21:59 07/05/24 22:12 07/05/24 22:12 Temperature 98.5 F Temperature Source Temporal Pulse Rate 107 H Respiratory Rate 30 H Respiratory Effort Labored Nasal [place] Respiratory Pattern Tachypnea Blood Pressure 164/105 H Blood Pressure Mean 124 Pulse Ox 92 89 Oxygen Delivery Method Room Air Room Air Room Air Oxygen Flow Rate (L/min) 07/05/24 22:36 07/05/24 23:00 07/06/24 00:00 Temperature Temperature Source Pulse Rate 105 H 107 H 95 Respiratory Rate 20 H 24 H Respiratory Effort Respiratory Pattern Normal Blood Pressure 138/88 H Blood Pressure Mean 104 Pulse Ox 94 92 Oxygen Delivery Method Nasal Cannula Oxygen Flow Rate (L/min) 2 07/06/24 00:25 07/06/24 01:00 07/06/24 02:00 Temperature Temperature Source Pulse Rate 89 Respiratory Rate 20 H Respiratory Effort Respiratory Pattern Normal Blood Pressure Blood Pressure Mean Pulse Ox 90 97 Oxygen Delivery Method Room Air Nasal Cannula Oxygen Flow Rate (L/min) 3 07/06/24 02:33 Temperature 98.1 F Temperature Source Pulse Rate 92 Respiratory Rate 20 H Respiratory Effort Respiratory Pattern Blood Pressure 144/101 H Blood Pressure Mean 115 Pulse Ox 97 (more content not included)... Normal [facility] Eosinophil percentageOrdered By: Jam Jiang on 07-05-2024 Eosinophils/100 WBC (Bld) 7.1 % High 0-5 [facility] Erythrocyte distribution wid th ratioOrdered By: Jam Jiang on 07-05-2024 Erythrocyte distribution width (RBC) [Ratio] 12.6 % 11.6-14.6 [facility] Erythrocyte distribution wid th standard deviationOrdered By: Jam Jiang on 07-05-2024 Erythrocyte distribution width (RBC) [Entitic vol] 38.3 fL 35.1-43.9 [facility] GFR/1.73 sq M.predicted jyoti g non-blacks MDRD (S/P/Bld) [Vol rate/Area]Ordered By: Jam Jiang on 07-05-2024 Estimated GFR (MDRD) Non-Af Amer 95 >60 [facility] Comment on above: mL/min/1.73m2 CKD-EP I Creatinine Equation (2020) Hematocrit Auto (Bld) [Volum e fraction]Ordered By: Jam Jiang on 07-05-2024 Hematocrit (Bld) [Volume fraction] 46.9 % 40-54 [facility] Hemoglobin measurementOrdere d By: Jam Jiang on 07-05-2024 Hemoglobin (Bld) [Mass/Vol] 16.4 g/dL 13.0-16.5 [facility] Immature granulocytes/100 WB C Auto (Bld)Ordered By: Jam Jiang on 07-05-2024 Immature granulocytes/100 WBC (Bld) 0.400 % 0.0-0.9 [facility] Comment on above: IG% - Immature Granu locytes (promyelocytes, myelocytes and metamyelocytes) > 1% indicates that a LEFT SHIFT is Present. Influenza virus A and B and SARS-CoV-2 (COVID-19) and Respiratory syncytial virus RNAOrdered By: Jam Jiang on 07-05-2024 SARS-CoV-2 (COVID-19) RNA DANA+probe Ql (Unsp spec) [facility] Lymphocytes Auto (Unsp spec) [#/Vol]Ordered By: Jam Jiang on 07-05-2024 Lymphocytes (Bld) [#/Vol] 1.62 10*3/uL 0.83-4.51 [facility] Lymphocytes/100 WBC Auto (Un sp spec)Ordered By: Jam Jiang on 07-05-2024 Lymphocytes/100 WBC (Bld) 19.5 % 19-41 [facility] M100.678on 07-05-2024 M100.678 SARS-CoV-2 (COVID 19 ) Negative INFLUENZA A Negative INFLUENZA B Negative RSV PCR Negative Normal [facility] Comment on above: Performed By: #### L 100.0100, L500.2500 #### [facility] [address] [place], [address] MCV (mean corpuscular volume ) determinationOrdered By: Jam Jiang on 07-05-2024 MCV (RBC) [Entitic vol] 84.2 fL 80-94 [facility] Magnesiumon 07-05-2024 Magnesium [Mass/Vol] 1.7 mg/dL Normal 1.5-2.2 [facility] Comment on above: Performed By: #### L 100.0100, L500.2500, L501.5200 #### [facility] [address] [place], [address] Magnesium (Unsp spec) [Mass/ Vol]Ordered By: Jam Jiang on 07-05-2024 Magnesium [Mass/Vol] 1.7 mg/dL 1.5-2.2 [facility] Mean corpuscular hemoglobin (MCH) determinationOrdered By: Jam Jiang on 07-05-2024 MCH (RBC) [Entitic mass] 29.4 pg 27.0-32.0 [facility] Mean corpuscular hemoglobin concentration (MCHC) determinationOrdered By: Jam Jiang on 07-05-2024 MCHC (RBC) [Mass/Vol] 35.0 g/dL 32-36 [facility] Mean platelet volume determi nationOrdered By: Jam Jiang on 07-05-2024 Platelet mean volume (Bld) [Entitic vol] 8.8 fL 6.2-12.0 [facility] Monocyte percentageOrdered B y: Jam Jiang on 07-05-2024 Monocytes/100 WBC (Bld) 7.6 % 0-10 [facility] Neutrophil percentageOrdered By: Jam Jiang on 07-05-2024 Neutrophils/100 WBC (Bld) 64.3 % 47-70 [facility] Nucleated red blood cell per centageOrdered By: Jam Jiang on 07-05-2024 Nucleated RBC/100 WBC (Bld) [Ratio] 0 % 0-5 [facility] Platelet countOrdered By: Erin Jiang on 07-05-2024 Platelets (Bld) [#/Vol] 219 10*3/uL 150-450 [facility] Potassium (Unsp spec) [Mass/ Vol]Ordered By: Jam Jiang on 07-05-2024 Potassium [Moles/Vol] 3.8 mmol/L 3.3-5.1 [facility] RBC Auto (Bld) [#/Vol]Ordere d By: Jam Jiang on 07-05-2024 RBC (Bld) [#/Vol] 5.57 10*6/uL 4.6-6.2 [facility] Serum creatinine measurement (mass/volume)Ordered By: Jam Jiang on 07-05-2024 Creatinine [Mass/Vol] 1.00 mg/dL 0.70-1.20 [facility] Serum glucose measurement (m ass/volume)Ordered By: Jam Jiang on 07-05-2024 Glucose [Mass/Vol] 102 mg/dL High 70-99 [facility] Serum or plasma calcium ginny urement (mass/volume)Ordered By: Jam Jiang on 07-05-2024 Calcium [Mass/Vol] 9.6 mg/dL 7.6-11.0 [facility] Serum or plasma urea nitroge n measurement (mass/volume)Ordered By: Jam Jiang on 07-05-2024 Urea nitrogen [Mass/Vol] 18 mg/dL 4-19 [facility] Sodium levelOrdered By: Adam Jiang on 07-05-2024 Sodium [Moles/Vol] 139 mmol/L 133-145 [facility] TSH DL <= 0.005 mIU/L QnOrde red By: Lisa Wallis on 07-05-2024 Thyroid Stimulating Hormone (TSH) 2.050 uIU/mL 0.300-4.20 0 [facility] White blood cell (WBC) count Ordered By: Jam Jiang on 07-05-2024 WBC (Bld) [#/Vol] 8.3 10*3/uL 4.4-11.0 [facility] Absolute neutrophil countOrd ered By: Douglas Cruz on 06-11-2024 Neutrophils (Bld) [#/Vol] 6.0 10*3/uL 2.0-7.7 [facility] Basic Metabolic Profile (BMP )on 06-11-2024 BUN/CRE 15.1 RATIO Normal 10-20 [facility] Comment on above: Performed By: #### L 100.0100, L500.2500 #### [facility] [address] [place], [address] CA,Total 9.0 mg/dL Normal 8.5-10.1 [facility] Comment on above: Performed By: #### L 100.0100, L500.2500 #### [facility] [address] [place], [address] Chloride [Moles/Vol] 107 mmol/L Normal 98-107 [facility] Comment on above: Performed By: #### L 100.0100, L500.2500 #### [facility] [address] [place], [address] CO2 [Moles/Vol] 26.0 mmol/L Normal 21.0-32.0 [facility] Comment on above: Performed By: #### L 100.0100, L500.2500 #### [facility] [address] [place], [address] Creatinine [Mass/Vol] 1.06 mg/dL Normal 0.70-1.30 [facility] Comment on above: Result Comment: The validity of the calculated GFR GFRAA in patients over 70 years has not been determined. Clinical correlation is essential. Performed By: #### L 100.0100, L500.2500 #### [facility] [address] [place], [address] ECRCL 77.36 ml/min Normal [facility] Comment on above: Performed By: #### L 100.0100, L500.2500 #### [facility] [address] [place], [address] EST GFR - AA 98 mL/min Normal >60 [facility] Comment on above: Result Comment: Afri can [place] GFR Calc Performed By: #### L 100.0100, L500.2500 #### [facility] [address] [place], [address] GAP 4 Low 5-15 [facility] Comment on above: Performed By: #### L 100.0100, L500.2500 #### [facility] [address] [place], [address] GFR/1.73 sq M.predicted among non-blacks MDRD (S/P/Bld) [Vol rate/Area] 81 mL/min/{1.73_m2} Normal >60 [facility] Comment on above: Result Comment: Non- GFR Calc Performed By: #### L 100.0100, L500.2500 #### [facility] [address] [place], [address] Glucose [Mass/Vol] 90 mg/dL Normal 74-106 [facility] Comment on above: Performed By: #### L 100.0100, L500.2500 #### [facility] [address] [place], [address] Potassium [Moles/Vol] 5.2 mmol/L High 3.5-5.1 [facility] Comment on above: Result Comment: Mode rate Hemolysis, Result may be falsely increased. Performed By: #### L 100.0100, L500.2500 #### [facility] [address] [place], [address] Sodium [Moles/Vol] 137 mmol/L Normal 136-145 [facility] Comment on above: Performed By: #### L 100.0100, L500.2500 #### [facility] [address] [place], [address] Urea nitrogen [Mass/Vol] 16 mg/dL Normal 7-18 [facility] Comment on above: Performed By: #### L 100.0100, L500.2500 #### [facility] [address] [place], [address] Basophil percentageOrdered B y: Douglas Cruz on 06-11-2024 Basophils/100 WBC (Bld) 0.6 % 0-1 [facility] Blood urea nitrogen (BUN)/cr eatinine ratioOrdered By: Douglas Cruz on 06-11-2024 Urea nitrogen/Creatinine [Mass ratio] 15.1 mg/mg 10-20 [facility] CBC W/Diff, Automatedon 05-29 Absolute Lymph 1.48 X10 3/uL Normal 0.83-4.51 [facility] Comment on above: Performed By: #### L 100.0100, L500.2500 #### [facility] [address] [place], [address] Absolute Neut 6.0 X10 3/uL Normal 2.0-7.7 [facility] Comment on above: Performed By: #### L 100.0100, L500.2500 #### [facility] [address] [place], [address] Basophils/100 WBC (Bld) 0.6 % Normal 0-1 [facility] Comment on above: Performed By: #### L 100.0100, L500.2500 #### [facility] [address] [place], [address] Eosinophils/100 WBC (Bld) 4.2 % Normal 0-5 [facility] Comment on above: Performed By: #### L 100.0100, L500.2500 #### [facility] [address] [place], [address] Erythrocyte distribution width (RBC) [Ratio] 13.2 % Normal 11.6-14.6 [facility] Comment on above: Performed By: #### L 100.0100, L500.2500 #### [facility] [address] [place], [address] Hematocrit (Bld) [Volume fraction] 47.1 % Normal 40-54 [facility] Comment on above: Performed By: #### L 100.0100, L500.2500 #### [facility] [address] [place], [address] Hemoglobin (Bld) [Mass/Vol] 15.9 g/dL Normal 13.0-16.5 [facility] Comment on above: Performed By: #### L 100.0100, L500.2500 #### [facility] [address] [place], [address] IG% 0.200 Normal 0.0-0.9 [facility] Comment on above: Result Comment: IG% - Immature Granulocytes (promyelocytes, myelocytes and metamyelocytes) > 1% indicates that a LEFT SHIFT is Present. Performed By: #### L 100.0100, L500.2500 #### [facility] [address] [place], [address] Lymphocytes/100 WBC (Bld) 17.5 % Low 19-41 [facility] Comment on above: Performed By: #### L 100.0100, L500.2500 #### [facility] [address] [place], [address] MCH (RBC) [Entitic mass] 29.3 pg Normal 27.0-32.0 [facility] Comment on above: Performed By: #### L 100.0100, L500.2500 #### [facility] [address] [place], [address] MCHC (RBC) [Mass/Vol] 33.8 g/dL Normal 32-36 [facility] Comment on above: Performed By: #### L 100.0100, L500.2500 #### [facility] [address] [place], [address] MCV (RBC) [Entitic vol] 86.7 fL Normal 80-94 [facility] Comment on above: Performed By: #### L 100.0100, L500.2500 #### [facility] [address] [place], [address] Monocytes/100 WBC (Bld) 6.8 % Normal 0-10 [facility] Comment on above: Performed By: #### L 100.0100, L500.2500 #### [facility] [address] [place], [address] Neutrophils/100 WBC (Bld) 70.7 % High 47-70 [facility] Comment on above: Performed By: #### L 100.0100, L500.2500 #### [facility] [address] [place], [address] Nucleated RBC (Bld) [#/Vol] 0 10*3/uL Normal 0-5 [facility] Comment on above: Performed By: #### L 100.0100, L500.2500 #### [facility] [address] [place], [address] Platelet mean volume (Bld) [Entitic vol] 9.3 fL Normal 6.2-12.0 [facility] Comment on above: Performed By: #### L 100.0100, L500.2500 #### [facility] [address] [place], [address] Platelets (Bld) [#/Vol] 199 10*3/uL Normal 150-450 [facility] Comment on above: Performed By: #### L 100.0100, L500.2500 #### [facility] [address] [place], [address] RBC (Bld) [#/Vol] 5.43 10*6/uL Normal 4.6-6.2 [facility] Comment on above: Performed By: #### L 100.0100, L500.2500 #### [facility] [address] [place], [address] RDW SD 39.8 fl Normal 35.1-43.9 [facility] Comment on above: Performed By: #### L 100.0100, L500.2500 #### [facility] [address] [place], [address] WBC (Bld) [#/Vol] 8.5 10*3/uL Normal 4.4-11.0 [facility] Comment on above: Performed By: #### L 100.0100, L500.2500 #### [facility] [address] [place], [address] Carbon dioxide measurementOr dered By: Douglas Cruz on 06-11-2024 CO2 [Moles/Vol] 26.0 mmol/L 21.0-32.0 [facility] Chest PA and Lateralon 06-11 Chest PA and Lateral [facility] Imaging Services [address] [place] [address] Chest PA and Lateral MR#: [id number] Acct: [id number] Name: DANNY BEDOYA Rep #: [id number] : 1980 M 44 From: Ambreen Driver MD PCP: Dr. Lexi Barnes MD Status: REG ER Study: Chest PA and Lateral Date of Exam: 06/11/24 Exam# [id number] Ordering Dr: Douglas Cruz DO PROCEDURE: CHEST PA AND LATERAL REASON FOR EXAM: Shortness of breath TECHNIQUE: Frontal and lateral views of the chest. COMPARISON: 02/03/2024 FINDINGS: The lungs are clear. No pleural effusion or pneumothorax. The cardiomediastinal silhouette is unremarkable. No acute osseous or soft tissue abnormality. RAD/Chest PA and Lateral IMPRESSION: 1. No acute cardiopulmonary process. Reading Location: [facility] CC: Dr. Lexi Barnes MD; Dr. Douglas Cruz DO Bulker: Signed Normal [facility] Chloride measurementOrdered By: Douglas Cruz on 06-11-2024 Chloride [Moles/Vol] 107 mmol/L 98-107 [facility] Emergency Department Summary on 06-11-2024 Emergency Department Summary [facility] Medical Records Department [address] [place] [address] Emergency Department Summary 06/11/24 MR#: [id number] Acct: [id number] Name: DANNY BEDOYA Rep #: [id number] : 1980 44 From: Douglas Cruz DO PCP: Dr. Lexi Barnes MD Status:DEP ER Location: ED HPI History of Present Illness Chief Complaint: Asthma Narrative Narrative: Chief complaint and HPI: Asthma exacerbation. 44-year-old male with past medical history of asthma, HTN presents for evaluation of asthma exacerbation. Patient states for the past couple days he has had a cough. He states yesterday he became more short of breath and his chest became tight like it does with an asthma exacerbation. He has been using his home albuterol, ProAir, and albuterol nebulizers with some improvement. He states the symptoms worsened today which is why he presents. He denies any fever, chills, chest pain, abdominal pain, nausea, vomiting. Review of systems: See HPI Medications: As listed on the chart Allergies: As listed on the chart PFSH: Per chart Vital signs: As listed on the chart. Reviewed. Physical exam: Gen: A O x3, NAD Head: Normocephalic, atraumatic Eyes: No sclera icterus, conjunctiva clear, PERRL, EOMI ENT: Moist mucous membranes Neck: Trachea midline, No JVD CV: Tachycardic, regular rhythm, no murmurs, no peripheral edema Resp: Lungs CTA BL with expiratory wheezing, on 2 L nasal cannula for comfort GI: Abd soft, non-distended, non-tender, no r/r/g Musc: Full ROM, no deformity Skin: Warm, dry Neuro: Alert, oriented, grossly intact, sensation intact Psych: Cooperative, appropriate mood and affect [facility] Medical History Cirrhosis Asthma Alcohol abuse Angioedema Home Medications ???Medication ???Instructions ???Recorded ???Last Taken ???Type fluticasone 100 mcg-salmeterol 50 1 ea IH DAILY breathing 01/04/19 Unknown History mcg/dose blistr powdr for inhalation amlodipine 10 mg tablet (Norvasc) 10 mg PO DAILY 05/20/22 Unknown H istory aspirin 81 mg tablet,delayed 81 mg PO DAILY 05/20/22 Unknown Hi story release magnesium hydroxide 400 mg (170 mg 400 mg PO BID 05/20/22 Unknown H istory magnesium) chewable tablet mycophenolate mofetil 500 mg 500 mg PO BID 05/20/22 Unknown His tory tablet (CellCept) pantoprazole 40 mg granules 40 mg PO DAILY 05/20/22 Unknown Hi story delayed-release for susp in packet (Protonix) sodium bicarbonate 650 mg tablet 1,300 mg PO TID-QID PRN 05/20/22 U nknown History sulfamethoxazole 400 1 tab PO .COMPLEX 05/20/22 Unknown History mg-trimethoprim 80 mg tablet (Bactrim) tacrolimus 1 mg capsule,extended 2 mg PO BID 05/20/22 Unknown Histo ry release 24 hr albuterol sulfate 2.5 mg/3 mL 2.5 mg (3 mL) inhalation Q4H PRN 1 Unknown Rx (0.083 %) solution for nebulization #25 vials tacrolimus 1 mg capsule, mg PO 02/03/24 Unknown History immediate-release prednisone 20 mg tablet 40 mg (2 x 20 mg) PO DAILY 5 days 06/11/24 Unknown Rx #10 tabs Allergy/AdvReac Type Severity Reaction Status Date / Time lisinopril Allergy Angioedema Verified 02/03/24 11:17 Family History Father Alcoholism Asthma Mother Asthma Grandmother Cancer brain Surgical History Hx of liver transplant Social History household members: none current occupational status: employed current occupation: [employer] Smoking Status: Never smoker Electronic Cigarette Use: not used alcohol intake: former details: former heavy drinker, 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 substance use type: marijuana what type of physical activity do you participate in: none do you feel safe at home: Yes EXAM Physical Exam Const Vital Signs: 06/11/24 16:18 06/11/24 16:22 06/11/24 16:42 Temperature 97.7 F L Temperature Source Oral Pulse Rate 132 H 115 H Respiratory Rate 28 H 19 H Respiratory Effort Short of Breath Labored Accessory Muscle Use Respiratory Pattern Tachypnea Blood Pressure 200/128 H 150/100 H Blood Pressure Mean 152 116 Pulse Ox 99 94 Oxygen Delivery Method Room Air Room Air Nasal Cannula Oxygen Flow Rate (L/min) 2 06/11/24 17:02 06/11/24 17:22 06/11/24 18:00 Temperature 96.9 F L Temperature Source Temporal Pulse Rate 109 H 114 H 104 H Respiratory Rate 18 18 18 Respiratory Effort Respiratory Pattern Normal Blood Pressure 129/88 H 131/99 H Blood Pressure Mean 101 109 Pulse Ox 92 93 Oxygen Delivery Method Nasal Cannula Room Air Oxygen Flow Rate (L/min) 2 06/11/24 18:30 Tempera (more content not included)... Normal [facility] Eosinophil percentageOrdered By: Douglas Cruz on 06-11-2024 Eosinophils/100 WBC (Bld) 4.2 % 0-5 [facility] Erythrocyte distribution wid th ratioOrdered By: Douglas Cruz on 06-11-2024 Erythrocyte distribution width (RBC) [Ratio] 13.2 % 11.6-14.6 [facility] Erythrocyte distribution wid th standard deviationOrdered By: Douglas Todd on 06-11-2024 Erythrocyte distribution width (RBC) [Entitic vol] 39.8 fL 35.1-43.9 [facility] Estimated glomerular filtrat ion rate (GFR) AmericanOrdered By: Douglas Cruz on 06-11-2024 Estimated GFR (MDRD) Amer 98 mL/min >60 [facility] Comment on above: GFR Calc Estimation of creatinine niru aranceOrdered By: Douglas Cruz on 06-11-2024 Estimated Creatinine Clearance Calc 77.36 ml/min [facility] Glomerular filtration rate ( GFR) estimationOrdered By: Douglas Anthony on 06-11-2024 Estimated GFR (MDRD) Non-Af Amer 81 mL/min >60 [facility] Comment on above: Non- GFR Calc Glucose measurementOrdered B y: Douglas Cruz on 06-11-2024 Glucose [Mass/Vol] 90 mg/dL 74-106 [facility] Hematocrit Auto (Bld) [Volum e fraction]Ordered By: Douglas Cruz on 06-11-2024 Hematocrit (Bld) [Volume fraction] 47.1 % 40-54 [facility] Hemoglobin measurementOrdere d By: Douglas Cruz on 06-11-2024 Hemoglobin (Bld) [Mass/Vol] 15.9 g/dL 13.0-16.5 [facility] Immature granulocytes/100 WB C Auto (Bld)Ordered By: Douglas Cruz on 06-11-2024 Immature granulocytes/100 WBC (Bld) 0.200 % 0.0-0.9 [facility] Comment on above: IG% - Immature Granu locytes (promyelocytes, myelocytes and metamyelocytes) > 1% indicates that a LEFT SHIFT is Present. Influenza virus A and B and SARS-CoV-2 (COVID-19) and Respiratory syncytial virus RNAOrdered By: Douglas Cruz on 06-11-2024 SARS-CoV-2 (COVID-19) RNA DANA+probe Ql (Unsp spec) [facility] Lymphocytes Auto (Unsp spec) [#/Vol]Ordered By: Douglas Cruz on 06-11-2024 Lymphocytes (Bld) [#/Vol] 1.48 10*3/uL 0.83-4.51 [facility] Lymphocytes/100 WBC Auto (Un sp spec)Ordered By: Douglaspamela Cruz on 06-11-2024 Lymphocytes/100 WBC (Bld) 17.5 % Low 19-41 [facility] M100.678on 06-11-2024 M100.678 SARS-CoV-2 (COVID 19 ) Negative INFLUENZA A Negative INFLUENZA B Negative RSV PCR Negative Normal [facility] Comment on above: Performed By: #### L 100.0100, L500.2500 #### [facility] [address] [place] [address], [address] MCV (mean corpuscular volume ) determinationOrdered By: Douglas Anthony on 06-11-2024 MCV (RBC) [Entitic vol] 86.7 fL 80-94 [facility] Mean corpuscular hemoglobin (MCH) determinationOrdered By: [place] Anthony on 06-11-2024 MCH (RBC) [Entitic mass] 29.3 pg 27.0-32.0 [facility] Mean corpuscular hemoglobin concentration (MCHC) determinationOrdered By: [facility] on 06-11-2024 MCHC (RBC) [Mass/Vol] 33.8 g/dL 32-36 [facility] Mean platelet volume determi nationOrdered By: Douglas Cruz on 06-11-2024 Platelet mean volume (Bld) [Entitic vol] 9.3 fL 6.2-12.0 [facility] Monocyte percentageOrdered B y: Douglas Cruz on 06-11-2024 Monocytes/100 WBC (Bld) 6.8 % 0-10 [facility] Neutrophil percentageOrdered By: Douglas Cruz on 06-11-2024 Neutrophils/100 WBC (Bld) 70.7 % High 47-70 [facility] Nucleated red blood cell per centageOrdered By: Douglas Cruz on 06-11-2024 Nucleated RBC/100 WBC (Bld) [Ratio] 0 % 0-5 [facility] Platelet countOrdered By: Calderon Cruz on 06-11-2024 Platelets (Bld) [#/Vol] 199 10*3/uL 150-450 [facility] Potassium measurementOrdered By: Douglas Cruz on 06-11-2024 Potassium [Moles/Vol] 5.2 mmol/L High 3.5-5.1 [facility] Comment on above: Moderate Hemolysis, Result may be falsely increased. RBC Auto (Bld) [#/Vol]Ordere d By: Douglas Cruz on 06-11-2024 RBC (Bld) [#/Vol] 5.43 10*6/uL 4.6-6.2 [facility] Serum anion gap measurementO rdered By: Douglas Cruz on 06-11-2024 Anion gap [Moles/Vol] 4 mmol/L Low 5-15 [facility] Serum or plasma calcium ginny urement (mass/volume)Ordered By: Douglas Todd on 06-11-2024 Calcium [Mass/Vol] 9.0 mg/dL 8.5-10.1 [facility] Serum or plasma creatinine m easurement (mass/volume)Ordered By: Douglas Todd on 06-11-2024 Creatinine [Mass/Vol] 1.06 mg/dL 0.70-1.30 [facility] Comment on above: The validity of the calculated GFR & GFRAA in patients over 70 years has not been determined. Clinical correlation is essential. Serum or plasma urea nitroge n measurement (mass/volume)Ordered By: Duoglas Cruz on 06-11-2024 Urea nitrogen [Mass/Vol] 16 mg/dL 7-18 [facility] Sodium levelOrdered By: Chago Cruz on 06-11-2024 Sodium [Moles/Vol] 137 mmol/L 136-145 [facility] White blood cell (WBC) count Ordered By: Douglas Cruz on 06-11-2024 WBC (Bld) [#/Vol] 8.5 10*3/uL 4.4-11.0 [facility] L501.5101on 03-31-2024 GGTP 22 IU/L Normal 0-65 [facility] Comment on above: Order Comment: Test( s) 787196-Eyfakrwmny (FK506), Bloodwas developed and its performance characteristicsdetermined by [employer]. It has not been cleared or approvedby the Food and Drug Administration. Result Comment: Perf ormed at: [facility] [address] [id number] Instructor Product Inspection: Arlyn Avila MD, Phone: [phone] Performed at: [facility] [employer] [id number] Instructor Product Inspection: Dago Will PhD, Phone: [phone] Performed By: #### L 100.0100, L500.2500, L501.7563 #### [facility] [address] [place] [address], [address] Tacrolimus (Prograf)on 03-31 Tacrolimus (Bld) [Mass/Vol] 7.5 ng/mL Normal 2.0-20.0 [facility] Comment on above: Order Comment: Test( s) 961519-Iypccwoejx (FK506), Bloodwas developed and its performance characteristicsdetermined by [employer]. It has not been cleared or approvedby the Food and Drug Administration. Result Comment: Trou gh (immediately following transplant) 15.0 Trough (steady state, 2 weeks or more after transplant): 3.0 - 8.0 Performed by LC-MS/MS technology. Performed By: #### L 100.0100, L500.2500, L501.5200 #### [facility] [address] [place], [address] Absolute neutrophil counton 03-29-2024 Neutrophils (Bld) [#/Vol] 3.4 10*3/uL 2.0-7.7 [facility] Basic Metabolic Profile (BMP )on 03-29-2024 BUN/CRE 20.2 RATIO High 10-20 [facility] Comment on above: Performed By: #### L 100.0100, L500.2500, L501.5200 #### [facility] [address] [place], [address] CA,Total 9.0 mg/dL Normal 8.5-10.1 [facility] Comment on above: Performed By: #### L 100.0100, L500.2500, L501.5200 #### [facility] [address] [place], [address] Chloride [Moles/Vol] 110 mmol/L High 98-107 [facility] Comment on above: Performed By: #### L 100.0100, L500.2500, L501.5200 #### [facility] [address] [place], [address] CO2 [Moles/Vol] 23.0 mmol/L Normal 21.0-32.0 [facility] Comment on above: Performed By: #### L 100.0100, L500.2500, L501.5200 #### [facility] [address] [place], [address] Creatinine [Mass/Vol] 1.09 mg/dL Normal 0.70-1.30 [facility] Comment on above: Result Comment: The validity of the calculated GFR GFRAA in patients over 70 years has not been determined. Clinical correlation is essential. Performed By: #### L 100.0100, L500.2500, L501.5200 #### [facility] [address] [place], [address] EST GFR - AA 95 mL/min Normal >60 [facility] Comment on above: Result Comment: Afri can [place] GFR Calc Performed By: #### L 100.0100, L500.2500, L501.5200 #### [facility] [address] [place], [address] GAP 6 Normal 5-15 [facility] Comment on above: Performed By: #### L 100.0100, L500.2500, L501.5200 #### [facility] [address] [place], [address] GFR/1.73 sq M.predicted among non-blacks MDRD (S/P/Bld) [Vol rate/Area] 78 mL/min/{1.73_m2} Normal >60 [facility] Comment on above: Result Comment: Non- GFR Calc Performed By: #### L 100.0100, L500.2500, L501.5200 #### [facility] [address] [place], [address] Glucose [Mass/Vol] 107 mg/dL High 74-106 [facility] Comment on above: Result Comment: Fast ing Glucose result from 100 to 125 mg/dL suggests IMPAIRED HOMEOSTASIS per A.D.A. criteria. Performed By: #### L 100.0100, L500.2500, L501.5200 #### [facility] [address] [place], [address] Potassium [Moles/Vol] 4.3 mmol/L Normal 3.5-5.1 [facility] Comment on above: Performed By: #### L 100.0100, L500.2500, L501.5200 #### [facility] [address] [place], [address] Sodium [Moles/Vol] 139 mmol/L Normal 136-145 [facility] Comment on above: Performed By: #### L 100.0100, L500.2500, L501.5200 #### [facility] [address] [place], [address] Urea nitrogen [Mass/Vol] 22 mg/dL High 7-18 [facility] Comment on above: Performed By: #### L 100.0100, L500.2500, L501.5200 #### [facility] [address] [place], [address] Basophil percentageon 2023 Basophils/100 WBC (Bld) 1.2 % High 0-1 [facility] Bilirubin directon 4 Bilirubin.direct [Mass/Vol] 0.41 mg/dL High 0.00-0.30 [facility] Bilirubin, totalon 4 Bilirubin [Mass/Vol] 1.60 mg/dL High 0.20-1.00 [facility] Comment on above: For patients on eltr ombopag therapy, use of Dimension [place] TBIL is not recommended. Blood urea nitrogen (BUN)/cr eatinine ratioon 03-29-2024 Urea nitrogen/Creatinine [Mass ratio] 20.2 mg/mg High 10-20 [facility] CBC W/Diff, Automatedon Absolute Lymph 1.66 X10 3/uL Normal 0.83-4.51 [facility] Comment on above: Performed By: #### L 100.0100, L500.2500, L501.5200 #### [facility] [address] [place], [address] Absolute Neut 3.4 X10 3/uL Normal 2.0-7.7 [facility] Comment on above: Performed By: #### L 100.0100, L500.2500, L501.5200 #### [facility] [address] [place], [address] Basophils/100 WBC (Bld) 1.2 % High 0-1 [facility] Comment on above: Performed By: #### L 100.0100, L500.2500, L501.5200 #### [facility] [address] [place], [address] Eosinophils/100 WBC (Bld) 5.1 % High 0-5 [facility] Comment on above: Performed By: #### L 100.0100, L500.2500, L501.5200 #### [facility] [address] [place], [address] Erythrocyte distribution width (RBC) [Ratio] 12.6 % Normal 11.6-14.6 [facility] Comment on above: Performed By: #### L 100.0100, L500.2500, L501.5200 #### [facility] [address] [place], [address] Hematocrit (Bld) [Volume fraction] 41.0 % Normal 40-54 [facility] Comment on above: Performed By: #### L 100.0100, L500.2500, L501.5200 #### [facility] [address] [place], [address] Hemoglobin (Bld) [Mass/Vol] 14.4 g/dL Normal 13.0-16.5 [facility] Comment on above: Performed By: #### L 100.0100, L500.2500, L501.5200 #### [facility] [address] [place], [address] IG% 0.200 Normal 0.0-0.9 [facility] Comment on above: Result Comment: IG% - Immature Granulocytes (promyelocytes, myelocytes and metamyelocytes) > 1% indicates that a LEFT SHIFT is Present. Performed By: #### L 100.0100, L500.2500, L501.5200 #### [facility] [address] [place], [address] Lymphocytes/100 WBC (Bld) 27.5 % Normal 19-41 [facility] Comment on above: Performed By: #### L 100.0100, L500.2500, L501.5200 #### [facility] [address] [place], [address] MCH (RBC) [Entitic mass] 30.1 pg Normal 27.0-32.0 [facility] Comment on above: Performed By: #### L 100.0100, L500.2500, L501.5200 #### [facility] [address] [place], [address] MCHC (RBC) [Mass/Vol] 35.1 g/dL Normal 32-36 [facility] Comment on above: Performed By: #### L 100.0100, L500.2500, L501.5200 #### [facility] [address] [place], [address] MCV (RBC) [Entitic vol] 85.6 fL Normal 80-94 [facility] Comment on above: Performed By: #### L 100.0100, L500.2500, L501.5200 #### [facility] [address] [place], [address] Monocytes/100 WBC (Bld) 10.4 % High 0-10 [facility] Comment on above: Performed By: #### L 100.0100, L500.2500, L501.5200 #### [facility] [address] [place], [address] Neutrophils/100 WBC (Bld) 55.6 % Normal 47-70 [facility] Comment on above: Performed By: #### L 100.0100, L500.2500, L501.5200 #### [facility] [address] [place], [address] Nucleated RBC (Bld) [#/Vol] 0 10*3/uL Normal 0-5 [facility] Comment on above: Performed By: #### L 100.0100, L500.2500, L501.5200 #### [facility] [address] [place], [address] Platelet mean volume (Bld) [Entitic vol] 9.0 fL Normal 6.2-12.0 [facility] Comment on above: Performed By: #### L 100.0100, L500.2500, L501.5200 #### [facility] [address] [place], [address] Platelets (Bld) [#/Vol] 203 10*3/uL Normal 150-450 [facility] Comment on above: Performed By: #### L 100.0100, L500.2500, L501.5200 #### [facility] [address] [place], [address] RBC (Bld) [#/Vol] 4.79 10*6/uL Normal 4.6-6.2 [facility] Comment on above: Performed By: #### L 100.0100, L500.2500, L501.5200 #### [facility] [address] [place], [address] RDW SD 39.3 fl Normal 35.1-43.9 [facility] Comment on above: Performed By: #### L 100.0100, L500.2500, L501.5200 #### [facility] [address] [place], [address] WBC (Bld) [#/Vol] 6.0 10*3/uL Normal 4.4-11.0 [facility] Comment on above: Performed By: #### L 100.0100, L500.2500, L501.5200 #### [facility] [address] [place], [address] Carbon dioxide measurementon 03-29-2024 CO2 [Moles/Vol] 23.0 mmol/L 21.0-32.0 [facility] Chloride measurementon 03-29 Chloride [Moles/Vol] 110 mmol/L High 98-107 [facility] Eosinophil percentageon 12-0 Eosinophils/100 WBC (Bld) 5.1 % High 0-5 [facility] Erythrocyte distribution wid th ratioon 03-29-2024 Erythrocyte distribution width (RBC) [Ratio] 12.6 % 11.6-14.6 [facility] Erythrocyte distribution wid th standard deviationon 03-29-2024 Erythrocyte distribution width (RBC) [Entitic vol] 39.3 fL 35.1-43.9 [facility] Estimated glomerular filtrat ion rate (GFR) Americanon 03-29-2024 Estimated GFR (MDRD) Amer 95 mL/min >60 [facility] Comment on above: GFR Calc Gamma glutamyl transferase ( GGT) measurementon 03-29-2024 Amylase [Catalytic activity/Vol] 22 U/L 0-65 [facility] Comment on above: Performed at: [facility] [address] [id number] Director: Arlyn Avila MD, Phone: [phone] at: [facility] [address] [id number] Director: Dago Will PhD, Phone: [phone] Glomerular filtration rate ( GFR) estimationon 03-29-2024 Estimated GFR (MDRD) Non-Af Amer 78 mL/min >60 [facility] Comment on above: Non- GFR Calc Glucose measurementon 2023 Glucose [Mass/Vol] 107 mg/dL High 74-106 [facility] Comment on above: Fasting Glucose resu lt from 100 to 125 mg/dL suggests IMPAIRED HOMEOSTASIS per A.D.A. criteria. Hematocrit Auto (Bld) [Volum e fraction]on 03-29-2024 Hematocrit (Bld) [Volume fraction] 41.0 % 40-54 [facility] Hemoglobin measurementon Hemoglobin (Bld) [Mass/Vol] 14.4 g/dL 13.0-16.5 [facility] Immature granulocytes/100 WB C Auto (Bld)on 03-29-2024 Immature granulocytes/100 WBC (Bld) 0.200 % 0.0-0.9 [facility] Comment on above: IG% - Immature Granu locytes (promyelocytes, myelocytes and metamyelocytes) > 1% indicates that a LEFT SHIFT is Present. International normalized rat io (INR) calculationon 03-29-2024 INR Coag (Bld) [Relative time] 1.2 {INR} [facility] - Chemistry and C hemistry - challengeon 03-29-2024 AST [Catalytic activity/Vol] 16 U/L 15-37 [facility] Liver Profileon 03-29-2024 Albumin [Mass/Vol] 3.8 g/dL Normal 3.2-5.0 [facility] Comment on above: Performed By: #### L 100.0100, L500.2500, L501.5200 #### [facility] [address] [place], [address] ALK P 59 U/L Normal 45-117 [facility] Comment on above: Performed By: #### L 100.0100, L500.2500, L501.5200 #### [facility] [address] [place], [address] ALT [Catalytic activity/Vol] 22 U/L Normal 16-61 [facility] Comment on above: Performed By: #### L 100.0100, L500.2500, L501.5200 #### [facility] [address] [place], [address] AST [Catalytic activity/Vol] 16 U/L Normal 15-37 [facility] Comment on above: Performed By: #### L 100.0100, L500.2500, L501.5200 #### [facility] [address] [place], [address] Bilirubin [Mass/Vol] 1.60 mg/dL High 0.20-1.00 [facility] Comment on above: Result Comment: For patients on eltrombopag therapy, use of Dimension [place] TBIL is not recommended. Performed By: #### L 100.0100, L500.2500, L501.5200 #### [facility] [address] [place], [address] Bilirubin.direct [Mass/Vol] 0.41 mg/dL High 0.00-0.30 [facility] Comment on above: Performed By: #### L 100.0100, L500.2500, L501.5200 #### [facility] [address] [place], [address] Globulin (S) [Mass/Vol] 3.3 g/dL Normal 2.2-4.2 [facility] Comment on above: Performed By: #### L 100.0100, L500.2500, L501.5200 #### [facility] [address] [place], [address] T PROT 7.1 g/dL Normal 6.4-8.2 [facility] Comment on above: Performed By: #### L 100.0100, L500.2500, L501.5200 #### [facility] [facility] [address] [place], [address] Lymphocytes Auto (Unsp spec) [#/Vol]on 03-29-2024 Lymphocytes (Bld) [#/Vol] 1.66 10*3/uL 0.83-4.51 [facility] Lymphocytes/100 WBC Auto (Un sp spec)on 03-29-2024 Lymphocytes/100 WBC (Bld) 27.5 % 19-41 [facility] MCV (mean corpuscular volume ) determinationon 03-29-2024 MCV (RBC) [Entitic vol] 85.6 fL 80-94 [facility] Magnesiumon 03-29-2024 Magnesium [Mass/Vol] 1.8 mg/dL Normal 1.6-2.6 [facility] Comment on above: Performed By: #### L 100.0100, L500.2500, L501.5200 #### [facility] [address] [place], [address] Magnesium measurementon Magnesium [Mass/Vol] 1.8 mg/dL 1.6-2.6 [facility] Mean corpuscular hemoglobin (MCH) determinationon 03-29-2024 MCH (RBC) [Entitic mass] 30.1 pg 27.0-32.0 [facility] Mean corpuscular hemoglobin concentration (MCHC) determinationon 03-29-2024 MCHC (RBC) [Mass/Vol] 35.1 g/dL 32-36 [facility] Mean platelet volume determi nationon 03-29-2024 Platelet mean volume (Bld) [Entitic vol] 9.0 fL 6.2-12.0 [facility] Monocyte percentageon 2023 Monocytes/100 WBC (Bld) 10.4 % High 0-10 [facility] Neutrophil percentageon Neutrophils/100 WBC (Bld) 55.6 % 47-70 [facility] Nucleated red blood cell per centageon 03-29-2024 Nucleated RBC/100 WBC (Bld) [Ratio] 0 % 0-5 [facility] Phosphoruson 03-29-2024 Phosphate [Mass/Vol] 2.3 mg/dL Low 2.5-4.9 [facility] Comment on above: Performed By: #### L 100.0100, L500.2500, L501.5200 #### [facility] [address] [place], [place], [id number] Phosphorus measurementon Phosphorus Level 2.3 mg/dL Low 2.5-4.9 [facility] Platelet counton 03-29-2024 Platelets (Bld) [#/Vol] 203 10*3/uL 150-450 [facility] Potassium measurementon Potassium [Moles/Vol] 4.3 mmol/L 3.5-5.1 [facility] Prothrombin Time w/INRon INR Coag (PPP) [Relative time] 1.2 {INR} Normal [facility] Comment on above: Performed By: #### L 100.0100, L500.2500, L501.5200 #### [facility] [address] [place], [address] PT Coag (PPP) [Time] 15.0 s High 11.7-14.9 [facility] Comment on above: Performed By: #### L 100.0100, L500.2500, L501.5200 #### [facility] [address] [place], [address] Prothrombin timeon PT Coag (PPP) [Time] 15.0 s High 11.7-14.9 [facility] RBC Auto (Bld) [#/Vol]on RBC (Bld) [#/Vol] 4.79 10*6/uL 4.6-6.2 [facility] Serum anion gap measuremento n 03-29-2024 Anion gap [Moles/Vol] 6 mmol/L 5-15 [facility] Serum globulin measurementon 03-29-2024 Globulin (S) [Mass/Vol] 3.3 g/dL 2.2-4.2 [facility] Serum or plasma alanine rodas otransferase (ALT) measurementon 03-29-2024 ALT [Catalytic activity/Vol] 22 U/L 16-61 [facility] Serum or plasma albumin ginny urement (mass/volume)on 03-29-2024 Albumin [Mass/Vol] 3.8 g/dL 3.2-5.0 [facility] Serum or plasma alkaline yarelis sphatase measurementon 03-29-2024 ALP [Catalytic activity/Vol] 59 U/L 45-117 [facility] Serum or plasma calcium ginny urement (mass/volume)on 03-29-2024 Calcium [Mass/Vol] 9.0 mg/dL 8.5-10.1 [facility] Serum or plasma creatinine m easurement (mass/volume)on 03-29-2024 Creatinine [Mass/Vol] 1.09 mg/dL 0.70-1.30 [facility] Comment on above: The validity of the calculated GFR & GFRAA in patients over 70 years has not been determined. Clinical correlation is essential. Serum or plasma urea nitroge n measurement (mass/volume)on 03-29-2024 Urea nitrogen [Mass/Vol] 22 mg/dL High 7-18 [facility] Sodium levelon 03-29-2024 Sodium [Moles/Vol] 139 mmol/L 136-145 [facility] Tacrolimus levelon Tacrolimus (Prograf) Level 7.5 ng/mL 2.0-20.0 [facility] Comment on above: Trough (immediately following transplant) 15.0 Trough (steady state, 2 weeks or more after transplant): 3.0 - 8.0 Performed by LC-MS/MS technology. 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 Eyes: The patient denies glaucoma, denies eye injury/surgery, does not wear glasses or contacts. Ear/Nose/Throat: The patient denies allergies, denies hayfever, denies ear infections, and denies bloody noses. Cardiovascular: The patient denies chest pain, denies heart disease, denies high blood pressure,denies cardiac stent, denies prior heart attack, denies irregular heart beat, denies high cholesterol, denies poor circulation, denies heart failure, other cardiac issues, denies claudication, denies cold feet, denies peripheral arterial stent. Respiratory: The patient denies tuberculosis, denies pneumonia, denies frequent cough, denies pulmonary embolism, denies shortness of breath, and denies coughing up blood. Gastrointestinal: The patient denies difficulty swallowing, denies acid reflux, denies ulcers, denies vomiting, denies jaundice/hepatitis, denies gallbladder problems, denies black or tarry stools, denies hemorrhoids, denies bleeding from rectum, denies diverticulitis, denies constipation, denies diarrhea, denies loss of stool control, and NOTES hernias. Kidney/Bladder: The patient denies kidney stones, denies urine infections, and denies bloody urine. Skin: The patient denies a history of skin cancer, denies bleeding/changing moles, and denies a history of skin rash. Neurologic: The patient denies a history of epilepsy/convulsions, denies headaches, denies head/spinal injuries, and denies stroke/TIA. Psychiatric: The patient denies psychiatric medications, denies depression, and denies voices, denies substance abuse. Endocrine: The patient denies thyroid disorders, denies diabetes, and denies hormonal problems. Hematologic: The patient denies a history of bruising, denies bleeding, and denies anemia, denies blood clots. Infections: The patient denies a history of measles and mumps, denies rheumatic fever, and denies sexually transmitted diseases. Musculoskeletal: The patient denies back pain/injury, denies back problems, denies sciatica, denies knee/foot trouble, denies arthritis, or denies gout. When was patient's last Mammogram screening? N/A Last Colonoscopy: none JORGE Coronado Daniel P, MD 02/17/2024 7:25 AM Signed HISTORY AND PHYSICAL Danny Bedoya 1980 REFERRING PHYSICIAN: Self CHIEF COMPLAINT: Consult (hernia) HPI: The patient is a 44 year old male with a complaint of bulge and discomfort in his right inguinal area. This has been going on for many months. He has been using a hernia belt for the discomfort. Patient is a recipient of a liver transplant and he is instructed not to take ibuprofen and only use Tylenol he also says that he notices some slight discomfort in his left groin as well. He has had no change in his bowel or bladder habits he has no nausea vomiting. PAST MEDICAL HISTORY Diagnosis Date Alcohol abuse Angioedema Anxiety disorder Asthma 01/04/2015 Dr. Massimo Lam Cirrhosis (HCC) Fracture of right foot 02/24/2015 History of liver transplant (HCC) Major depression PAST SURGICAL HISTORY Procedure Laterality Date LIVER TRANSPLANT HX Current Outpatient Medications Medication Sig tacrolimus IR (PROGRAF) 1 mg capsule Take 5 mg by mouth once daily. 3 mg in am, 2 mg in pm mycophenolate mofetil (CELLCEPT) 250 mg capsule Take 250 mg by mouth two times a day. fluticasone-salmeterol HFA (ADVAIR HFA) 115-21 mcg/actuation inhaler Inhale 2 Puffs as instructed two times a day. albuterol (PROVENTIL) 2.5 mg /3 mL (0.083 %) nebulizer solution Use 3 mL via nebulizer every 6 hours as needed for Wheezing/Shortness of Breath. hydroCHLOROthiazide (HYDRODIURIL, ESIDRIX) 25 mg tablet Take 1 tablet by mouth once daily. fluticasone (FLONASE) 50 mcg/actuation nasal spray Use 2 Sprays in each nostril once daily. Rinse mouth after use. No current facility-administered medications for this visit. ALLERGIES: Environmental Allergies [Other] and Lisinopril PERSONAL HISTORY: Social History Tobacco Use Smoking status: Never Smokeless tobacco: Never Vaping Use Vaping status: Never Used Substance Use Topics Alcohol use: Not Currently Comment: former heavy user, 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 Drug use: Yes Types: Marijuana FAMILY HISTORY: FAMILY HISTORY Problem Relation Age of Onset Asthma Mother Asthma Father Psychiatry Father b (more content not included)... Normal [facility] 12 Lead EKGon 02-03-2024 12 Lead EKG [facility] Cardi[facility] Services [address] [place] [address] 12 Lead EKG 02/03/24 1137 MR#: [id number] Acct: [id number] Name: DANNY BEDOYA Rep #: [id number] : 1980 43 From: Alexy York MD Attending Dr: Status: DEP ER Ordering Dr: Kirit Moreira MD Date: 02/03/24 Location: ED Sex: M C Admitted: Test Reason : SOB Blood Pressure : / mmHG Vent. Rate : 116 BPM Atrial Rate : 116 BPM P-R Int : 144 ms QRS Dur : 082 ms QT Int : 314 ms P-R-T Axes : 071 085 072 degrees QTc Int : 436 ms Sinus tachycardia Otherwise normal ECG Confirmed by ALEXY YORK MD ([id number]), fan mail editor TIFFANY COTTON ([id number]) on 02/04/2024 9:24:55 AM Referred By: Confirmed By:ALEXY YORK MD 02/04/24924 Date Alexy York MD CC: Dr. Kirit Moreira MD; Dr. Lexi Barnes MD Signed Normal [facility] Chest 1 View (Portable)on Chest 1 View (Portable) [facility] Imaging Services [address] [place] [id number] Chest 1 View (Portable) MR#: [id number] Acct: [id number] Name: DANNY BEDOYA Rep #: [id number] : 1980 M 43 From: James babin MD PCP: Dr. Lexi Barnes MD Status: REG ER Study: Chest 1 View (Portable) Date of Exam: 02/03/24 Exam# [id number] Ordering Dr: Kirit Moreira MD [id number] STUDY: X-RAY CHEST REASON FOR EXAM: Male, 43 years old. Shortness of breath TECHNIQUE: Single AP portable view of the chest. COMPARISON: Comparison is made with prior study dated April 17, 2021. FINDINGS: EKG electrodes are seen. Hyperinflation. The lungs are clear. Stable blunting of the costophrenic angles bilaterally. Normal size heart. Normal mediastinum and paula. Normal visualized pulmonary arteries. Normal visualized aortic arch and descending thoracic aorta. Normal visualized thoracic spine. Normal visualized ribs, clavicles, and shoulders. There is no demonstrated abnormality of the visualized soft tissue structures of the upper abdomen. RAD/Chest 1 View (Portable) IMPRESSION: Hyperinflation. No acute abnormality seen. Electronically Signed: James Bryan MD at 12:19 EDT Reading Location ID and State: [address] [place] [address] , Service support , CC: Dr. Kirit Moreira MD; Dr. Lexi Barnes MD Bulker: Signed Normal [facility] Emergency Department Summary on 02-03-2024 Emergency Department Summary [facility] Medical Records Department [address] [place] [address] Emergency Department Summary 02/03/24 MR#: [id number] Acct: [id number] Name: DANNY BEDOYA Rep #: [id number] : 1980 43 From: Kirit Moreira MD PCP: Dr. Lexi Barnes MD Status:REG ER Location: ED HPI History of Present Illness Chief Complaint: Asthma Narrative Narrative: 43-year-old male past medical history of moderate asthma, states he gets flareups a few times a year presents with increasing difficulty breathing and asthma exacerbation since yesterday. He denies any fevers or chills, he has an occasional cough. He states his symptoms were worse yesterday, but he has both an MDI and nebulizer treatments at home. He just used a treatment, but still feels very short of breath. His last steroid use was 5 or 6 months ago. He denies any exacerbating or alleviating factors. No chest pain, no nausea or vomiting, no diaphoresis. Non-smoker. [facility] Medical History Cirrhosis Asthma Alcohol abuse Angioedema Home Medications ???Medication ???Instructions ???Recorded ???Last Taken ???Type albuterol sulfate 2.5 mg/3 mL 2.5 mg (3 mL) inhalation Q4H PRN 01/19/17 Unknown Rx (0.083 %) solution for nebulization PRN Difficulty breathing or wheezi #25 vials fluticasone 100 mcg-salmeterol 50 1 ea IH DAILY breathing 01/04/19 Unknown History mcg/dose blistr powdr for inhalation amlodipine 10 mg tablet (Norvasc) 10 mg PO DAILY 05/20/22 Unknown History aspirin 81 mg tablet,delayed 81 mg PO DAILY 05/20/22 Unknown History release magnesium hydroxide 400 mg (170 mg 400 mg PO BID 05/20/22 Unknown History magnesium) chewable tablet mycophenolate mofetil 500 mg 500 mg PO BID 05/20/22 Unknown History tablet (CellCept) pantoprazole 40 mg granules 40 mg PO DAILY 05/20/22 Unknown History delayed-release for susp in packet (Protonix) sodium bicarbonate 650 mg tablet 1,300 mg PO TID-QID PRN 05/20/22 Unknown History sulfamethoxazole 400 1 tab PO .COMPLEX 05/20/22 Unknown History mg-trimethoprim 80 mg tablet (Bactrim) tacrolimus 1 mg capsule,extended 2 mg PO BID 05/20/22 Unknown History release 24 hr albuterol sulfate 2.5 mg/3 mL 2.5 mg (3 mL) inhalation Q4H PRN 02/03/24 Unknown Rx (0.083 %) solution for nebulization #25 vials prednisone 20 mg tablet 40 mg (2 x 20 mg) PO DAILY #14 tabs 02/03/24 Unknown Rx Allergy/AdvReac Type Severity Reaction Status Date / Time lisinopril Allergy Angioedema Verified 02/03/24 11:17 Family History Father Alcoholism Asthma Mother Asthma Grandmother Cancer brain Surgical History Hx of liver transplant Social History household members: none current occupational status: employed 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 EXAM Physical Exam Narrative Exam Narrative: Afebrile. Vital signs noted. HEENT examination shows PERRL, EOMI, no drooling or trismus. Airway is patent. Speaking in 4-5 word sentences. No stridor. Cardiovascular examination reveals a mild tachycardia. Respiratory examination reveals mild tachypnea with decreased air movement and expiratory wheezing in the bilateral bases/diffusely. Abdomen soft nontender with normal active bowel sounds. Neurological examination is nonfocal and nonlateralizing. No pedal edema. Const Vital Signs: 02/03/24 11:16 02/03/24 11:21 02/03/24 11:33 Temperature 97.4 F L Temperature Source Temporal Pulse Rate 106 H 105 H Respiratory Rate 20 H 18 Respiratory Effort Short of Breath Respiratory Depth Shallow Respiratory Pattern Tachypnea Normal Blood Pressure 174/110 H Blood Pressure Mean 131 Pulse Ox 92 Oxygen Delivery Method Room Air 02/03/24 12:13 02/03/24 13:00 Temperature Temperature Source Pulse Rate 96 Respiratory Rate 24 H Respiratory Effort Respiratory Depth Respiratory Pattern Blood Pressure 156/99 H Blood Pressure Mean 117 Pulse Ox 91 Oxygen Delivery Method Room Air MDM MDM MDM Narrative Medical decision making narrative: Differential diagnosis includes but not limited to acute asthma exacerbation versus pneumonia versus pn (more content not included)... Normal [facility] .Auto Diffon 10-25-2023 Basophil, Absolute 0.0 10 3/mcL Normal 0.0-0.2 [facility] ([place]) Comment on above: Performed By: #### T ROPHS, CBC, BMP, MDW, GFR, ADIFF, ANEU #### [id number] [place], [place] [address] Basophils/100 WBC (Bld) 0.8 % Normal 0.0-2.5 [facility] ([place]) Comment on above: Performed By: #### T ROPHS, CBC, BMP, MDW, GFR, ADIFF, ANEU #### [address] [address] Eosinophil, Absolute 0.4 10 3/mcL Normal 0.0-0.4 [facility] ([place]) Comment on above: Performed By: #### T ROPHS, CBC, BMP, MDW, GFR, ADIFF, ANEU #### [address] [address] Eosinophils/100 WBC (Bld) 8.4 % High 0.0-7.0 [facility] ([place]) Comment on above: Performed By: #### T ROPHS, CBC, BMP, MDW, GFR, ADIFF, ANEU #### [address] [address] Lymphocyte, Absolute 0.8 10 3/mcL Normal 0.8-3.9 [facility] ([place]) Comment on above: Performed By: #### T ROPHS, CBC, BMP, MDW, GFR, ADIFF, ANEU #### [address] [address] Lymphocytes/100 WBC (Bld) 17.0 % Normal 10.0-50.0 [facility] ([place]) Comment on above: Performed By: #### T ROPHS, CBC, BMP, MDW, GFR, ADIFF, ANEU #### [address] [address] Monocyte, Absolute 0.5 10 3/mcL Normal 0.2-1.0 [facility] ([place]) Comment on above: Performed By: #### T ROPHS, CBC, BMP, MDW, GFR, ADIFF, ANEU #### [address] [address] Monocytes/100 WBC (Bld) 9.9 % Normal 1.7-13.0 [facility] ([place]) Comment on above: Performed By: #### T ROPHS, CBC, BMP, MDW, GFR, ADIFF, ANEU #### [address] [address] Neutrophils/100 WBC (Bld) 63.9 % Normal 37.0-80.0 [facility] ([place]) Comment on above: Performed By: #### T ANUPAM SINGH BMP, MDW, GFR, ADIFF, ANEU #### [employer] [address] [address] .GFRon 10-25-2023 GFR Non- 75 ml/min/1.73sqm Normal [facility] ([place]) Comment on above: Result Comment: GFR Population mean for , Non- Americans Ages 20-29 = 116 mL/min/1.73 sq.m. Ages 30-39 = 107 mL/min/1.73 sq.m. Ages 40-49 = 99 mL/min/1.73 sq.m. Ages 50-59 = 93 mL/min/1.73 sq.m. Ages 60-69 = 85 mL/min/1.73 sq.m. Ages 70+ = 75 mL/min/1.73 sq.m. Chronic Kidney Disease: Less than 60 mL/min/1.73 square meters End Stage Renal Disease: Less than 15 mL/min/1.73 square meters Performed By: #### T ANUPAM SINGH BMP, MDW, GFR, ADIFF, ANEU #### [facility] [address] [address] GFR 90 ml/min/1.73sqm Normal [facility] ([place]) Comment on above: Result Comment: GFR Population mean for , Non- Americans Ages 20-29 = 116 mL/min/1.73 sq.m. Ages 30-39 = 107 mL/min/1.73 sq.m. Ages 40-49 = 99 mL/min/1.73 sq.m. Ages 50-59 = 93 mL/min/1.73 sq.m. Ages 60-69 = 85 mL/min/1.73 sq.m. Ages 70+ = 75 mL/min/1.73 sq.m. Chronic Kidney Disease: Less than 60 mL/min/1.73 square meters End Stage Renal Disease: Less than 15 mL/min/1.73 square meters Performed By: #### T ROPHS, CBC, BMP, MDW, GFR, ADIFF, ANEU #### [address] [address] .MDWon 10-25-2023 Monocyte Distribution Width 18.42 Normal 0.00-20.00 [facility] ([place]) Comment on above: Result Comment: For ED adult patients suspected of sepsis, MDW<=20.0 does not rule out sepsis or risk of sepsis Performed By: #### T ROPHS, CBC, BMP, MDW, GFR, ADIFF, ANEU #### [address] [address] .NEUABSon 10-25-2023 Neutrophil, Absolute 3.0 10 3/mcL Normal 2.9-6.2 [facility] ([place]) Comment on above: Performed By: #### T SAMANTHA, CBC, BMP, MDW, GFR, ADIFF, ANEU #### [address] [address] BMPon 10-25-2023 BUN/Creatinine Ratio 15 ratio Normal 7-27 [facility] ([place]) Comment on above: Performed By: #### T SAMANTHA, CBC, BMP, MDW, GFR, ADIFF, ANEU #### [address] [address] Calcium [Mass/Vol] 9.3 mg/dL Normal 8.4-10.2 [facility] ([place]) Comment on above: Performed By: #### T SAMANTHA, CBC, BMP, MDW, GFR, ADIFF, ANEU #### [address] [address] Chloride [Moles/Vol] 105 mmol/L Normal 98-107 [facility] ([place]) Comment on above: Performed By: #### T EMELYNHS, CBC, BMP, MDW, GFR, ADIFF, ANEU #### [address] [address] CO2 [Moles/Vol] 24 mmol/L Normal 22-29 [facility] ([place]) Comment on above: Performed By: #### T EMELYNHS, CBC, BMP, MDW, GFR, ADIFF, ANEU #### [address] [address] Creatinine [Mass/Vol] 1.08 mg/dL Normal 0.70-1.30 [facility] ([place]) Comment on above: Performed By: #### T SAMANTHA, CBC, BMP, MDW, GFR, ADIFF, ANEU #### [address] [address] Electrolyte Balance 12.0 mEq/L Normal 4.0-15.0 [facility] ([place]) Comment on above: Performed By: #### T SAMANTHA, CBC, BMP, MDW, GFR, ADIFF, ANEU #### [address] [address] Glucose [Mass/Vol] 114 mg/dL High 70-105 [facility] ([place]) Comment on above: Performed By: #### T SAMANTHA, CBC, BMP, MDW, GFR, ADIFF, ANEU #### [address] [address] Potassium [Moles/Vol] 4.0 mmol/L Normal 3.5-5.1 [facility] ([place]) Comment on above: Performed By: #### T SAMANTHA, CBC, BMP, MDW, GFR, ADIFF, ANEU #### [address] [address] Sodium [Moles/Vol] 141 mmol/L Normal 136-145 [facility] ([place]) Comment on above: Performed By: #### T SAMANTHA, CBC, BMP, MDW, GFR, ADIFF, ANEU #### [address] [address] Urea nitrogen [Mass/Vol] 16 mg/dL Normal 7-18 [facility] ([place]) Comment on above: Performed By: #### T SAMANTHA, CBC, BMP, MDW, GFR, ADIFF, ANEU #### [address] [address] CBCon 10-25-2023 Erythrocyte distribution width (RBC) [Ratio] 14.3 % Normal 11.5-14.5 [facility] ([place]) Comment on above: Performed By: #### T SAMANTHA, CBC, BMP, MDW, GFR, ADIFF, ANEU #### [place] [address] Hematocrit (Bld) [Volume fraction] 43.3 % Normal 42.0-52.0 [facility] ([place]) Comment on above: Performed By: #### T EMELYNHS, CBC, BMP, MDW, GFR, ADIFF, ANEU #### [place] [address] Hgb 15.0 G/dL Normal 14.0-18.0 [facility] ([place]) Comment on above: Performed By: #### T SAMANTHA, CBC, BMP, MDW, GFR, ADIFF, ANEU #### [place] [address] MCH (RBC) [Entitic mass] 30.3 pg Normal 27.0-31.2 [facility] ([place]) Comment on above: Performed By: #### T SAMANTHA, CBC, BMP, MDW, GFR, ADIFF, ANEU #### [place] [address] MCHC 34.5 G/dL Normal 31.8-35.4 [facility] ([place]) Comment on above: Performed By: #### T SAMANTHA, CBC, BMP, MDW, GFR, ADIFF, ANEU #### [place] [address] MCV (RBC) [Entitic vol] 87.7 fL Normal 80.0-94.0 [facility] ([place]) Comment on above: Performed By: #### T SAMANTHA, CBC, BMP, MDW, GFR, ADIFF, ANEU #### [place] [address] Platelet 159 10 3/mcL Normal 130-400 [facility] ([place]) Comment on above: Performed By: #### T EMELYNHS, CBC, BMP, MDW, GFR, ADIFF, ANEU #### [place] [address] Platelet mean volume (Bld) [Entitic vol] 6.6 fL Low 7.4-10.4 [facility] ([place]) Comment on above: Performed By: #### T SAMANTHA, CBC, BMP, MDW, GFR, ADIFF, ANEU #### [address] [address] RBC 4.94 10 6/mcL Normal 4.04-6.13 [facility] ([place]) Comment on above: Performed By: #### T SAMANTHA, CBC, BMP, MDW, GFR, ADIFF, ANEU #### [id number] [place] [address] WBC 4.8 10 3/mcL Normal 4.6-10.8 [facility] ([place]) Comment on above: Performed By: #### T SAMANTHA, CBC, BMP, MDW, GFR, ADIFF, ANEU #### [place] [address] CVFLURVon 10-25-2023 FLU A PCR Negative Normal Negative [facility] ([place]) Comment on above: Performed By: #### C VFLURV #### [place] [address] FLU B PCR Negative Normal Negative [facility] ([place]) Comment on above: Performed By: #### C VFLURV #### [place] [address] RSV PCR Negative Normal Negative [facility]) Comment on above: Performed By: #### C VFLURV #### [place] [address] SARS-CoV-2 (COVID-19) RNA DANA+probe Ql (Unsp spec) Negative Normal Negative [facility]) Comment on above: Result Comment: Resu lts from the Xpert Xpress CoV-2/Flu/RSV plus test should be correlated with the clinical history, epidemiological data, and other data available to the clinical evaluating the patient. Performance of the Xpert Xpress CoV-2/Flu/RSV plus test has only been established in nasopharyngeal swab specimen. Erroneous test results might occur from improper specimen collection, failure to follow the recommended sample collection, handling and storage procedures, technical error, or sample mix-up. False negative results may occur if a virus is present at a level below the analytical limit of detection. Viral nucleic acid may persist in vivo, independent of virus viability. Detection of analyte target(s) does not imply that the corresponding virus(es) are infectious or are the causative agents for clinical symptoms. Recent patient exposure to FluMist or other live attenuated influenza vaccines may cause inaccurate positive results. Performed By: #### [facility] #### [id number] [place], [place] [address] LABORATORYOrdered By: SYSTEM SYSTEM on 10-25-2023 Basophil, Absolute 0.0 103/mcL Normal 0.0 - 0.2 10^3/mcL AO Workflow SS Basophils/100 WBC (Bld) 0.8 % Normal 0.0 - 2.5 % AO Workflow SS Calcium [Mass/Vol] 9.3 mg/dL Normal 8.4 - 10. 2 mg/dL AO ADM SS Chloride [Moles/Vol] 105 mmol/L Normal 98 - 10 7 mmol/L AO ADM SS CO2 [Moles/Vol] 24 mmol/L Normal 22 - 29 mmol/L AO ADM SS Creatinine [Mass/Vol] 1.08 mg/dL Normal 0.70 - 1.30 mg/dL AO ADM SS Electrolyte Balance 12.0 mEq/L Normal 4.0 - 15 .0 mEq/L AO ADM SS Eosinophil, Absolute 0.4 103/mcL Normal 0.0 - 0 .4 10^3/mcL AO Workflow SS Eosinophils/100 WBC (Bld) 8.4 % High 0.0 - 7.0 % AO Workflow SS Erythrocyte distribution width (RBC) [Ratio] 14.3 % Normal 11.5 - 14.5 % AO Workflow SS GFR/1.73 sq M.predicted among blacks MDRD (S/P/Bld) [Vol rate/Area] 90 ml/min/1.73sqm Invalid Interpretation Code AO Chemistry S Comment on above: Interpretive Data: GFR Population mean for , Non- Americans Ages 20-29 = 116 mL/min/1.73 sq.m. Ages 30-39 = 107 mL/min/1.73 sq.m. Ages 40-49 = 99 mL/min/1.73 sq.m. Ages 50-59 = 93 mL/min/1.73 sq.m. Ages 60-69 = 85 mL/min/1.73 sq.m. Ages 70+ = 75 mL/min/1.73 sq.m. Chronic Kidney Disease: Less than 60 mL/min/1.73 square meters End Stage Renal Disease: Less than 15 mL/min/1.73 square meters GFR/1.73 sq M.predicted among non-blacks MDRD (S/P/Bld) [Vol rate/Area] 75 ml/min/1.73sqm Invalid Interpretation Code AO Chemistry S Comment on above: Interpretive Data: GFR Population mean for , Non- Americans Ages 20-29 = 116 mL/min/1.73 sq.m. Ages 30-39 = 107 mL/min/1.73 sq.m. Ages 40-49 = 99 mL/min/1.73 sq.m. Ages 50-59 = 93 mL/min/1.73 sq.m. Ages 60-69 = 85 mL/min/1.73 sq.m. Ages 70+ = 75 mL/min/1.73 sq.m. Chronic Kidney Disease: Less than 60 mL/min/1.73 square meters End Stage Renal Disease: Less than 15 mL/min/1.73 square meters Glucose [Mass/Vol] 114 mg/dL High 70 - 105 mg/dL AO ADM SS Hematocrit (Bld) [Volume fraction] 43.3 % Normal 42.0 - 52.0 % AO Workflow SS Hemoglobin (Bld) [Mass/Vol] 15.0 G/dL Normal 14.0 - 18.0 G/dL AO Workflow SS Lymphocyte, Absolute 0.8 103/mcL Normal 0.8 - 3 .9 10^3/mcL AO Workflow SS Lymphocytes/100 WBC (Bld) 17.0 % Normal 10.0 - 50.0 % AO Workflow SS MCH (RBC) [Entitic mass] 30.3 pg Normal 27.0 - 31.2 pg AO Workflow SS MCHC 34.5 G/dL Normal 31.8 - 35.4 G/dL AO Workflow SS MCV (RBC) [Entitic vol] 87.7 fL Normal 80.0 - 94.0 fL AO Workflow SS Monocyte distribution width Auto (Bld) [Entitic vol] 18.42 1 Normal 0.00 - 20.00 AO Workflow SS Comment on above: Result Comment: For ED adult patients suspected of sepsis, MDW<=20.0 does not rule out sepsis or risk of sepsis Monocyte, Absolute 0.5 103/mcL Normal 0.2 - 1.0 10^3/mcL AO Workflow SS Monocytes/100 WBC (Bld) 9.9 % Normal 1.7 - 13.0 % AO Workflow SS Neutrophil, Absolute 3.0 103/mcL Normal 2.9 - 6 .2 10^3/mcL AO Workflow SS Neutrophils/100 WBC (Bld) 63.9 % Normal 37.0 - 80.0 % AO Workflow SS Platelet mean volume (Bld) [Entitic vol] 6.6 fL Low 7.4 - 10.4 fL AO Workflow SS Platelets (Bld) [#/Vol] 159 103/mcL Normal 130 - 400 10^3/mcL AO Workflow SS Potassium [Moles/Vol] 4.0 mmol/L Normal 3.5 - 5.1 mmol/L AO ADM SS RBC (Bld) [#/Vol] 4.94 106/mcL Normal 4.04 - 6.13 10^6/mcL AO Workflow SS Sodium [Moles/Vol] 141 mmol/L Normal 136 - 145 mmol/L AO ADM SS Troponin I.cardiac DL <= 0.01 ng/mL [Mass/Vol] 5 ng/L Normal 0 - 76 ng/L AO ADM SS Comment on above: Interpretive Data: H igh Sensitive Troponin I Reference Ranges: Female: 0-51 ng/L Male: 0-76 ng/L Testing performed on Camalize SL using a homogeneous sandwich chemiluminescent immunoassay based on Bosid[employer] technology. Urea nitrogen [Mass/Vol] 16 mg/dL Normal 7 - 18 mg/dL AO ADM SS Urea nitrogen/Creatinine [Mass ratio] 15 ratio Normal 7 - 27 ratio AO ADM SS WBC (Bld) [#/Vol] 4.8 103/mcL Normal 4.6 - 10.8 10^3/mcL AO Workflow SS LABORATORYOrdered By: Emily Bingham on 10-25-2023 FLUAV RNA DANA+probe Ql (Resp) Negative (10/25/23 8:52 PM) Normal Negative AO Auto Urine SS FLUBV RNA DANA+probe Ql (Resp) Negative (10/25/23 8:52 PM) Normal Negative AO Auto Urine SS RSV RNA DANA+probe Ql (Resp) Negative (10/25/23 8:52 PM) Normal Negative AO Auto Urine SS SARS-CoV-2 (COVID-19) RNA DANA+probe Ql (Resp) Negative 3 (10/25/23 8:52 PM) Normal Negative AO Auto Urine SS Comment on above: Interpretive Data: R esults from the Xpert Xpress CoV-2/Flu/RSV plus test should be correlated with the clinical history, epidemiological data, and other data available to the clinical evaluating the patient. Performance of the Xpert Xpress CoV-2/Flu/RSV plus test has only been established in nasopharyngeal swab specimen. Erroneous test results might occur from improper specimen collection, failure to follow the recommended sample collection, handling and storage procedures, technical error, or sample mix-up. False negative results may occur if a virus is present at a level below the analytical limit of detection. Viral nucleic acid may persist in vivo, independent of virus viability. Detection of analyte target(s) does not imply that the corresponding virus(es) are infectious or are the causative agents for clinical symptoms. Recent patient exposure to FluMist or other live attenuated influenza vaccines may cause inaccurate positive results. [facility] 10-25-2023 High Sensitivity Troponin I 5 ng/L Normal 0-76 [facility] ([place]) Comment on above: Result Comment: High Sensitive Troponin I Reference Ranges: Female: 0-51 ng/L Male: 0-76 ng/L Testing performed on Camalize SL using a homogeneous sandwich chemiluminescent immunoassay based on Bosideng technology. Performed By: #### T ROPHS, CBC, BMP, MDW, GFR, ADIFF, ANEU #### [address] [address] XR CHEST 1 VIEWon 10-25-2023 XR CHEST 1 VIEW ORIGINAL EXAMINATION: ONE XRAY VIEW OF THE CHEST10/25/2023 9:54 pm COMPARISON: None. HISTORY: ORDERING SYSTEM PROVIDED HISTORY: Reason for Exam: cough, sob FINDINGS: The cardiomediastinal silhouette is unremarkable. There is no pulmonary vascular congestion. Hyperexpanded lungs with flattening of the hemidiaphragms. Scattered granulomas versus vessels on end are seen. No focal consolidative opacity. Pleural/parenchymal scarring at right lung base. No large pleural effusion. No pneumothorax. IMPRESSION: No acute cardiopulmonary process by radiograph. Hyperexpanded lungs suggesting emphysema. I have personally reviewed the images of this examination and agree with the resident's findings and interpretation. Interpreted by: Chris Alexandra DO Preliminary Report By: Darryn Wood Electronically signed By Chris Alexandra DO Dictated Date: 10/25/2023 9:59:29 PM Prelim Date: 10/25/2023 10:02:06 PM Sign Date: 10/25/2023 10:36:24 PM Ordering Provider: YVONNE MACE [facility] ([place]) Tacrolimus (Prograf)on 09-18 Tacrolimus (Bld) [Mass/Vol] 6.1 ng/mL Normal 2.0-20.0 [facility] Comment on above: Order Comment: Test( s) [id number] ([id number]), Bloodwas developed and its performance characteristicsdetermined by [employer]. It has not been cleared or approvedby the Food and Drug Administration. Result Comment: Trou gh (immediately following transplant) 15.0 Trough (steady state, 2 weeks or more after transplant): 3.0 - 8.0 Performed by LC-MS/MS technology. Performed at: [address] [id number] [employer]: Arlyn Avila MD, Phone: [phone] Performed By: #### L 100.0100, L500.2500, L501.5200 #### [facility] [address] [place], [place], [id number] Basic Metabolic Profile (BMP )on 09-15-2023 BUN/CRE 22.6 RATIO High 02-14 [facility] Comment on above: Performed By: #### L 100.0100, L500.2500 #### [facility] [address] [place], [place], [id number] CA,Total 9.2 mg/dL Normal 8.5-10.1 [facility] Comment on above: Performed By: #### L 100.0100, L500.2500 #### [facility] [address] [place], [address] Chloride [Moles/Vol] 108 mmol/L High 98-107 [facility] Comment on above: Performed By: #### L 100.0100, L500.2500 #### [facility] [address] [place], [address] CO2 [Moles/Vol] 23.0 mmol/L Normal 21.0-32.0 [facility] Comment on above: Performed By: #### L 100.0100, L500.2500 #### [facility] [address] [place], [address] Creatinine [Mass/Vol] 1.06 mg/dL Normal 0.70-1.30 [facility] Comment on above: Result Comment: The validity of the calculated GFR GFRAA in patients over 70 years has not been determined. Clinical correlation is essential. Performed By: #### L 100.0100, L500.2500 #### [facility] [address] [place], [address] EST GFR - AA 98 mL/min Normal >60 [facility] Comment on above: Result Comment: Afri can [place] GFR Calc Performed By: #### L 100.0100, L500.2500 #### [facility] [address] [place], [address] GAP 6 Normal 5-15 [facility] Comment on above: Performed By: #### L 100.0100, L500.2500 #### [facility] [address] [place], [address] GFR/1.73 sq M.predicted among non-blacks MDRD (S/P/Bld) [Vol rate/Area] 81 mL/min/{1.73_m2} Normal >60 [facility] Comment on above: Result Comment: Non- GFR Calc Performed By: #### L 100.0100, L500.2500 #### [facility] [address] [place], [address] Glucose [Mass/Vol] 101 mg/dL Normal 74-106 [facility] Comment on above: Result Comment: Fast ing Glucose result from 100 to 125 mg/dL suggests IMPAIRED HOMEOSTASIS per A.D.A. criteria. Performed By: #### L 100.0100, L500.2500 #### [facility] [address] [place], [address] Potassium [Moles/Vol] 3.6 mmol/L Normal 3.5-5.1 [facility] Comment on above: Performed By: #### L 100.0100, L500.2500 #### [facility] [address] [place], [address] Sodium [Moles/Vol] 137 mmol/L Normal 136-145 [facility] Comment on above: Performed By: #### L 100.0100, L500.2500 #### [facility] [address] [place], [address] Urea nitrogen [Mass/Vol] 24 mg/dL High 7-18 [facility] Comment on above: Performed By: #### L 100.0100, L500.2500 #### [facility] [address] [place], [address] CBC W/Diff, Automatedon 05-2 0-2024 Absolute Lymph 1.47 X10 3/uL Normal 0.83-4.51 [facility] Comment on above: Performed By: #### L 100.0100, L500.2500 #### [facility] [address] [place], [address] Absolute Neut 2.9 X10 3/uL Normal 2.0-7.7 [facility] Comment on above: Performed By: #### L 100.0100, L500.2500 #### [facility] [address] [place], [address] Basophils/100 WBC (Bld) 1.0 % Normal 0-1 [facility] Comment on above: Performed By: #### L 100.0100, L500.2500 #### [facility] [address] [place], [address] Eosinophils/100 WBC (Bld) 6.0 % High 0-5 [facility] Comment on above: Performed By: #### L 100.0100, L500.2500 #### [facility] [address] [place], [address] Erythrocyte distribution width (RBC) [Ratio] 12.6 % Normal 11.6-14.6 [facility] Comment on above: Performed By: #### L 100.0100, L500.2500 #### [facility] [address] [place], [address] Hematocrit (Bld) [Volume fraction] 39.7 % Low 40-54 [facility] Comment on above: Performed By: #### L 100.0100, L500.2500 #### [facility] [address] [place], [address] Hemoglobin (Bld) [Mass/Vol] 13.7 g/dL Normal 13.0-16.5 [facility] Comment on above: Performed By: #### L 100.0100, L500.2500 #### [facility] [address] [place], [address] IG% 0.200 Normal 0.0-0.9 [facility] Comment on above: Result Comment: IG% - Immature Granulocytes (promyelocytes, myelocytes and metamyelocytes) > 1% indicates that a LEFT SHIFT is Present. Performed By: #### L 100.0100, L500.2500 #### [facility] [address] [place], [address] Lymphocytes/100 WBC (Bld) 28.3 % Normal 19-41 [facility] Comment on above: Performed By: #### L 100.0100, L500.2500 #### [facility] [address] [place], [address] MCH (RBC) [Entitic mass] 29.7 pg Normal 27.0-32.0 [facility] Comment on above: Performed By: #### L 100.0100, L500.2500 #### [facility] [address] [place], [address] MCHC (RBC) [Mass/Vol] 34.5 g/dL Normal 32-36 [facility] Comment on above: Performed By: #### L 100.0100, L500.2500 #### [facility] [address] [place], [address] MCV (RBC) [Entitic vol] 85.9 fL Normal 80-94 [facility] Comment on above: Performed By: #### L 100.0100, L500.2500 #### [facility] [address] [place], [address] Monocytes/100 WBC (Bld) 8.5 % Normal 0-10 [facility] Comment on above: Performed By: #### L 100.0100, L500.2500 #### [facility] [address] [place], [address] Neutrophils/100 WBC (Bld) 56.0 % Normal 47-70 [facility] Comment on above: Performed By: #### L 100.0100, L500.2500 #### [facility] [address] [place], [address] Nucleated RBC (Bld) [#/Vol] 0 10*3/uL Normal 0-5 [facility] Comment on above: Performed By: #### L 100.0100, L500.2500 #### [facility] [address] [place], [address] Platelet mean volume (Bld) [Entitic vol] 9.3 fL Normal 6.2-12.0 [facility] Comment on above: Performed By: #### L 100.0100, L500.2500 #### [facility] [address] [place], [address] Platelets (Bld) [#/Vol] 189 10*3/uL Normal 150-450 [facility] Comment on above: Performed By: #### L 100.0100, L500.2500 #### [facility] [address] [place], [address] RBC (Bld) [#/Vol] 4.62 10*6/uL Normal 4.6-6.2 [facility] Comment on above: Performed By: #### L 100.0100, L500.2500 #### [facility] [address] [place], [address] RDW SD 39.2 fl Normal 35.1-43.9 [facility] Comment on above: Performed By: #### L 100.0100, L500.2500 #### [facility] [address] [place], [address] WBC (Bld) [#/Vol] 5.2 10*3/uL Normal 4.4-11.0 [facility] Comment on above: Performed By: #### L 100.0100, L500.2500 #### [facility] [address] [place], [address] GGTPon 09-15-2023 GGTP 40 U/L Normal 15-85 [facility] Comment on above: Performed By: #### L 100.0100, L500.2500, L501.5200 #### [facility] [address] [place], [address] Liver Profileon 09-15-2023 Albumin [Mass/Vol] 3.9 g/dL Normal 3.2-5.0 [facility] Comment on above: Performed By: #### L 100.0100, L500.2500, L501.5200 #### [facility] [address] [place], [address] ALK P 61 U/L Normal 45-117 [facility] Comment on above: Performed By: #### L 100.0100, L500.2500, L501.5200 #### [facility] [address] [place], [address] ALT [Catalytic activity/Vol] 25 U/L Normal 16-61 [facility] Comment on above: Performed By: #### L 100.0100, L500.2500, L501.5200 #### [facility] [address] [place], [address] AST [Catalytic activity/Vol] 21 U/L Normal 15-37 [facility] Comment on above: Performed By: #### L 100.0100, L500.2500, L501.5200 #### [facility] [address] [place], [address] Bilirubin [Mass/Vol] 1.00 mg/dL Normal 0.20-1.00 [facility] Comment on above: Result Comment: For patients on eltrombopag therapy, use of Dimension [place] TBIL is not recommended. Performed By: #### L 100.0100, L500.2500, L501.5200 #### [facility] [address] [place], [address] Bilirubin.direct [Mass/Vol] 0.27 mg/dL Normal 0.00-0.30 [facility] Comment on above: Performed By: #### L 100.0100, L500.2500, L501.5200 #### [facility] [address] [place], [address] Globulin (S) [Mass/Vol] 3.2 g/dL Normal 2.2-4.2 [facility] Comment on above: Performed By: #### L 100.0100, L500.2500, L501.5200 #### [facility] [address] [place], [address] T PROT 7.1 g/dL Normal 6.4-8.2 [facility] Comment on above: Performed By: #### L 100.0100, L500.2500, L501.5200 #### [facility] [address] [place], [address] Magnesiumon 09-15-2023 Magnesium [Mass/Vol] 1.6 mg/dL Normal 1.6-2.6 [facility] Comment on above: Performed By: #### L 100.0100, L500.2500, L501.5200 #### [facility] [address] [place], [address] Phosphoruson 09-15-2023 Phosphate [Mass/Vol] 2.9 mg/dL Normal 2.5-4.9 [facility] Comment on above: Performed By: #### L 100.0100, L500.2500, L501.5200 #### [facility] [address] [place], [address] Prothrombin Time w/INRon INR Coag (PPP) [Relative time] 1.2 {INR} Normal [facility] Comment on above: Performed By: #### L 100.0100, L500.2500 #### [facility] [address] [place], [address] PT Coag (PPP) [Time] 14.7 s Normal 11.7-14.9 [facility] Comment on above: Performed By: #### L 100.0100, L500.2500 #### [facility] [address] [place], [address] Absolute lymphocyte counton 06-16-2023 Lymphocytes Auto (Unsp spec) [#/Vol] 1.24 10*3/uL 0.83-4.51 [facility] Automated lymphocyte count a s percentage of total leukocyteson 06-16-2023 Lymphocytes/100 WBC Auto (Unsp spec) 23.8 % 19-41 [facility] Basophil percentageon 2023 Basophil percentage 3.0 mg/dL 2.5-4.9 [facility] Basophils/100 WBC (Bld) 1.0 % 0-1 [facility] Bilirubin [Mass/Vol] 1.90 mg/dL 0.20-1.00 [facility] Comment on above: For patients on eltr ombopag therapy, use of Dimension [place] TBIL is not recommended. Chloride [Moles/Vol] 109 mmol/L 98-107 [facility] Eosinophils/100 WBC (Bld) 6.5 % 0-5 [facility] Glucose [Mass/Vol] 121 mg/dL 74-106 [facility] Comment on above: Fasting Glucose resu lt from 100 to 125 mg/dL suggests IMPAIRED HOMEOSTASIS per A.D.A. criteria. Hemoglobin (Bld) [Mass/Vol] 13.8 g/dL 13.0-16.5 [facility] Monocytes/100 WBC (Bld) 10.2 % 0-10 [facility] Neutrophils (Bld) [#/Vol] 3.0 10*3/uL 2.0-7.7 [facility] Neutrophils/100 WBC (Bld) 58.1 % 47-70 [facility] Potassium [Moles/Vol] 4.1 mmol/L 3.5-5.1 [facility] Protein [Mass/Vol] 6.8 g/dL 6.4-8.2 [facility] Sodium [Moles/Vol] 135 mmol/L 136-145 [facility] WBC (Bld) [#/Vol] 5.2 10*3/uL 4.4-11.0 [facility] Determination of erythrocyte mean corpuscular volume (MCV)on 06-16-2023 MCV (RBC) [Entitic vol] 86.5 fL 80-94 [facility] Direct bilirubinon Bilirubin.direct [Mass/Vol] 0.44 mg/dL 0.00-0.30 [facility] Erythrocyte distribution wid th ratioon 06-16-2023 Erythrocyte distribution width (RBC) [Ratio] 13.2 % 11.6-14.6 [facility] Erythrocyte distribution wid th standard deviationon 06-16-2023 Erythrocyte distribution width (RBC) [Entitic vol] 41.1 fL 35.1-43.9 [facility] Hematocrit Auto (Bld) [Volum e fraction]on 06-16-2023 Hematocrit (Bld) [Volume fraction] 40.2 % 40-54 [facility] Immature granulocytes/100 WB C Auto (Bld)on 06-16-2023 Immature granulocytes/100 WBC (Bld) 0.400 % 0.0-0.9 [facility] Comment on above: IG% - Immature Granu locytes (promyelocytes, myelocytes and metamyelocytes) > 1% indicates that a LEFT SHIFT is Present. Laboratory - Chemistry and C hemistry - challengeon 06-16-2023 ALP [Catalytic activity/Vol] 76 U/L 45-117 [facility] ALT [Catalytic activity/Vol] 19 U/L 16-61 [facility] Amylase [Catalytic activity/Vol] 46 U/L 15-85 [facility] CO2 [Moles/Vol] 21.0 mmol/L 21.0-32.0 [facility] Globulin (S) [Mass/Vol] 3.0 g/dL 2.2-4.2 [facility] Magnesium [Mass/Vol] 1.7 mg/dL 1.6-2.6 [facility] Urea nitrogen/Creatinine [Mass ratio] 24.2 mg/mg 10-20 [facility] - Hematology and Cell countson 06-16-2023 MCH (RBC) [Entitic mass] 29.7 pg 27.0-32.0 [facility] MCHC (RBC) [Mass/Vol] 34.3 g/dL 32-36 [facility] Nucleated RBC/100 WBC (Bld) [Ratio] 0 % 0-5 [facility] Platelet mean volume (Bld) [Entitic vol] 9.4 fL 6.2-12.0 [facility] Platelets (Bld) [#/Vol] 169 10*3/uL 150-450 [facility] No Panel Informationon 06-16 Estimated GFR (MDRD) Amer 85 mL/min >60 [facility] Comment on above: GFR Calc Estimated GFR (MDRD) Non-Af Amer 70 mL/min >60 [facility] Comment on above: Non- GFR Calc Tacrolimus (Prograf) Level 8.6 ng/mL 2.0-20.0 [facility] Comment on above: Trough (immediately following transplant) 15.0 Trough (steady state, 2 weeks or more after transplant): 3.0 - 8.0 Performed by LC-MS/MS technology.Performed at: [facility] [id number] Director: Arlyn Avila MD, Phone: [phone] RBC Auto (Bld) [#/Vol]on RBC (Bld) [#/Vol] 4.65 10*6/uL 4.6-6.2 [facility] Serum or plasma calcium ginny urement (mass/volume)on 06-16-2023 Calcium [Mass/Vol] 8.8 mg/dL 8.5-10.1 [facility] Serum or plasma creatinine m easurement (mass/volume)on 06-16-2023 Creatinine [Mass/Vol] 1.20 mg/dL 0.70-1.30 [facility] Comment on above: The validity of the calculated GFR & GFRAA in patients over 70 years has not been determined. Clinical correlation is essential. Serum or plasma urea nitroge n measurement (mass/volume)on 06-16-2023 Urea nitrogen [Mass/Vol] 29 mg/dL 7-18 [facility] Thin prep Papanicolaou smear with manual screeningon 06-16-2023 Thin prep Papanicolaou smear with manual screening 3.8 g/dL 3.2-5.0 [facility] Thin prep Papanicolaou smear with manual screening 14 U/L 15-37 [facility] Thin prep Papanicolaou smear with manual screening 5 5-15 [facility] Absolute lymphocyte counton 03-10-2023 Lymphocytes Auto (Unsp spec) [#/Vol] 1.26 10*3/uL 0.83-4.51 [facility] Basophil percentageon 2022 Basophil percentage 3.3 mg/dL 2.5-4.9 [facility] Basophils/100 WBC (Bld) 1.2 % 0-1 [facility] Bilirubin [Mass/Vol] 1.00 mg/dL 0.20-1.00 [facility] Comment on above: For patients on eltr ombopag therapy, use of Dimension [place] TBIL is not recommended. Chloride [Moles/Vol] 109 mmol/L 98-107 [facility] Eosinophils/100 WBC (Bld) 4.7 % 0-5 [facility] Glucose [Mass/Vol] 114 mg/dL 74-106 [facility] Comment on above: Fasting Glucose resu lt from 100 to 125 mg/dL suggests IMPAIRED HOMEOSTASIS per A.D.A. criteria. Neutrophils (Bld) [#/Vol] 2.4 10*3/uL 2.0-7.7 [facility] Neutrophils/100 WBC (Bld) 55.3 % 47-70 [facility] Potassium [Moles/Vol] 4.8 mmol/L 3.5-5.1 [facility] Protein [Mass/Vol] 6.8 g/dL 6.4-8.2 [facility] Sodium [Moles/Vol] 140 mmol/L 136-145 [facility] WBC (Bld) [#/Vol] 4.3 10*3/uL 4.4-11.0 [facility] Blood erythrocytes count (nu mber/volume)on 03-10-2023 RBC (Bld) [#/Vol] 4.36 10*6/uL 4.6-6.2 [facility] [facility] Blood hemoglobin measurement (mass/volume)on 03-10-2023 Hemoglobin (Bld) [Mass/Vol] 12.7 g/dL 13.0-16.5 [facility] Blood lymphocytes/100 leukoc yteson 03-10-2023 Lymphocytes/100 WBC (Bld) 29.5 % 19-41 [facility] Blood monocytes/100 leukocyt eson 03-10-2023 Monocytes/100 WBC (Bld) 9.1 % 0-10 [facility] Blood platelet mean volumeon 03-10-2023 Platelet mean volume (Bld) [Entitic vol] 9.3 fL 6.2-12.0 [facility] Determination of erythrocyte mean corpuscular volume (MCV)on 03-10-2023 MCV (RBC) [Entitic vol] 90.4 fL 80-94 [facility] Direct bilirubinon Bilirubin.direct [Mass/Vol] 0.26 mg/dL 0.00-0.30 [facility] Hematocrit Auto (Bld) [Volum e fraction]on 03-10-2023 Hematocrit (Bld) [Volume fraction] 39.4 % 40-54 [facility] Laboratory - Chemistry and C hemistry - challengeon 03-10-2023 ALP [Catalytic activity/Vol] 83 U/L 45-117 [facility] ALT [Catalytic activity/Vol] 28 U/L 16-61 [facility] Amylase [Catalytic activity/Vol] 44 U/L 15-85 [facility] CO2 [Moles/Vol] 24.0 mmol/L 21.0-32.0 [facility] Globulin (S) [Mass/Vol] 3.1 g/dL 2.2-4.2 [facility] Magnesium [Mass/Vol] 2.0 mg/dL 1.6-2.6 [facility] Urea nitrogen/Creatinine [Mass ratio] 25.2 mg/mg 10-20 [facility] Laboratory - Hematology and Cell countson 03-10-2023 Erythrocyte distribution width (RBC) [Entitic vol] 40.9 fL 35.1-43.9 [facility] Erythrocyte distribution width (RBC) [Ratio] 12.4 % 11.6-14.6 [facility] Immature granulocytes/100 WBC (Bld) 0.200 % 0.0-0.9 [facility] Comment on above: IG% - Immature Granu locytes (promyelocytes, myelocytes and metamyelocytes) > 1% indicates that a LEFT SHIFT is Present. MCH (RBC) [Entitic mass] 29.1 pg 27.0-32.0 [facility] Nucleated RBC/100 WBC (Bld) [Ratio] 0 % 0-5 [facility] MCHC Auto (RBC) [Mass/Vol]on 03-10-2023 MCHC (RBC) [Mass/Vol] 32.2 g/dL 32-36 [facility] No Panel Informationon 03-10 Estimated GFR (MDRD) Amer 77 mL/min >60 [facility] Comment on above: GFR Calc Estimated GFR (MDRD) Non-Af Amer 63 mL/min >60 [facility] Comment on above: Non- GFR Calc Tacrolimus (Prograf) Level 10.4 ng/mL 2.0-20.0 [facility] Comment on above: Trough (immediately following transplant) 15.0 Trough (steady state, 2 weeks or more after transplant): 3.0 - 8.0 Performed by LC-MS/MS technology.Performed at: [id number] [id number] Director: Arlyn Avila MD, Phone: [phone] Platelets bldon 03-10-2023 Platelets (Bld) [#/Vol] 151 10*3/uL 150-450 [facility] Serum or plasma albumin ginny urement (mass/volume)on 03-10-2023 Albumin [Mass/Vol] 3.7 g/dL 3.2-5.0 [facility] Serum or plasma calcium ginny urement (mass/volume)on 03-10-2023 Calcium [Mass/Vol] 8.6 mg/dL 8.5-10.1 [facility] Serum or plasma creatinine m easurement (mass/volume)on 03-10-2023 Creatinine [Mass/Vol] 1.31 mg/dL 0.70-1.30 [facility] Comment on above: The validity of the calculated GFR & GFRAA in patients over 70 years has not been determined. Clinical correlation is essential. Serum or plasma urea nitroge n measurement (mass/volume)on 03-10-2023 Urea nitrogen [Mass/Vol] 33 mg/dL 7-18 [facility] Thin prep Papanicolaou smear with manual screeningon 03-10-2023 Thin prep Papanicolaou smear with manual screening 18 U/L 15-37 [facility] Thin prep Papanicolaou smear with manual screening 7 5-15 [facility] Absolute lymphocyte counton 09-18-2022 Lymphocytes Auto (Unsp spec) [#/Vol] 1.49 10*3/uL 0.83-4.51 [facility] Basophil percentageon 2022 Basophil percentage 2.5 mg/dL 2.5-4.9 [facility] Basophils/100 WBC (Bld) 1.0 % 0-1 [facility] Bilirubin [Mass/Vol] 0.90 mg/dL 0.20-1.00 [facility] Comment on above: For patients on eltr ombopag therapy, use of [employer] [place] TBIL is not recommended. Chloride [Moles/Vol] 111 mmol/L 98-107 [facility] Eosinophils/100 WBC (Bld) 4.4 % 0-5 [facility] Glucose [Mass/Vol] 116 mg/dL 74-106 [facility] Comment on above: Fasting Glucose resu lt from 100 to 125 mg/dL suggests IMPAIRED HOMEOSTASIS per A.D.A. criteria. Neutrophils (Bld) [#/Vol] 2.8 10*3/uL 2.0-7.7 [facility] Neutrophils/100 WBC (Bld) 54.9 % 47-70 [facility] Potassium [Moles/Vol] 4.4 mmol/L 3.5-5.1 [facility] Protein [Mass/Vol] 7.1 g/dL 6.4-8.2 [facility] Sodium [Moles/Vol] 139 mmol/L 136-145 [facility] WBC (Bld) [#/Vol] 5.0 10*3/uL 4.4-11.0 [facility] Blood erythrocytes count (nu mber/volume)on 09-18-2022 RBC (Bld) [#/Vol] 4.65 10*6/uL 4.6-6.2 [facility] Blood hemoglobin measurement (mass/volume)on 09-18-2022 Hemoglobin (Bld) [Mass/Vol] 13.9 g/dL 13.0-16.5 [facility] Blood lymphocytes/100 leukoc yteson 09-18-2022 Lymphocytes/100 WBC (Bld) 29.6 % 19-41 [facility] Blood monocytes/100 leukocyt eson 09-18-2022 Monocytes/100 WBC (Bld) 9.7 % 0-10 [facility] Blood platelet mean volumeon 09-18-2022 Platelet mean volume (Bld) [Entitic vol] 9.5 fL 6.2-12.0 [facility] Determination of erythrocyte mean corpuscular volume (MCV)on 09-18-2022 MCV (RBC) [Entitic vol] 89.0 fL 80-94 [facility] Direct bilirubinon Bilirubin.direct [Mass/Vol] 0.25 mg/dL 0.00-0.30 [facility] Hematocrit Auto (Bld) [Volum e fraction]on 09-18-2022 Hematocrit (Bld) [Volume fraction] 41.4 % 40-54 [facility] INR in Blood by Coagulation assayon 09-18-2022 INR Coag (Bld) [Relative time] 1.1 {INR} [facility] Laboratory - Chemistry and C hemistry - challengeon 09-18-2022 ALP [Catalytic activity/Vol] 99 U/L 45-117 [facility] ALT [Catalytic activity/Vol] 22 U/L 16-61 [facility] Amylase [Catalytic activity/Vol] 85 U/L 15-85 [facility] CO2 [Moles/Vol] 20.0 mmol/L 21.0-32.0 [facility] Globulin (S) [Mass/Vol] 3.5 g/dL 2.2-4.2 [facility] Magnesium [Mass/Vol] 1.8 mg/dL 1.6-2.6 [facility] Urea nitrogen/Creatinine [Mass ratio] 18.3 mg/mg 10-20 [facility] Laboratory - Coagulationon 0 09-18-2022 PT Coag (PPP) [Time] 14.7 s 11.7-14.9 [facility] Laboratory - Hematology and Cell countson 09-18-2022 Erythrocyte distribution width (RBC) [Entitic vol] 43.6 fL 35.1-43.9 [facility] Erythrocyte distribution width (RBC) [Ratio] 13.6 % 11.6-14.6 [facility] Immature granulocytes/100 WBC (Bld) 0.400 % 0.0-0.9 [facility] Comment on above: IG% - Immature Granu locytes (promyelocytes, myelocytes and metamyelocytes) > 1% indicates that a LEFT SHIFT is Present. MCH (RBC) [Entitic mass] 29.9 pg 27.0-32.0 [facility] Nucleated RBC/100 WBC (Bld) [Ratio] 0 % 0-5 [facility] MCHC Auto (RBC) [Mass/Vol]on 09-18-2022 MCHC (RBC) [Mass/Vol] 33.6 g/dL 32-36 [facility] No Panel Informationon 09-18 Estimated GFR (MDRD) Amer 100 mL/min >60 [facility] Comment on above: GFR Calc Estimated GFR (MDRD) Non-Af Amer 83 mL/min >60 [facility] Comment on above: Non- GFR Calc Tacrolimus (Prograf) Level 9.8 ng/mL 2.0-20.0 [facility] Comment on above: Trough (immediately following transplant) 15.0 Trough (steady state, 2 weeks or more after transplant): 3.0 - 8.0 Performed by LC-MS/MS technology.Performed at: [facility] [id number] Director: Arlyn Avila MD, Phone: [phone] Platelets bldon 09-18-2022 Platelets (Bld) [#/Vol] 184 10*3/uL 150-450 [facility] Serum or plasma albumin ginny urement (mass/volume)on 09-18-2022 Albumin [Mass/Vol] 3.6 g/dL 3.2-5.0 [facility] Serum or plasma calcium ginny urement (mass/volume)on 09-18-2022 Calcium [Mass/Vol] 8.6 mg/dL 8.5-10.1 [facility] Serum or plasma creatinine m easurement (mass/volume)on 09-18-2022 Creatinine [Mass/Vol] 1.04 mg/dL 0.70-1.30 [facility] Comment on above: The validity of the calculated GFR & GFRAA in patients over 70 years has not been determined. Clinical correlation is essential. Serum or plasma urea nitroge n measurement (mass/volume)on 09-18-2022 Urea nitrogen [Mass/Vol] 19 mg/dL 7-18 [facility] Thin prep Papanicolaou smear with manual screeningon 09-18-2022 Thin prep Papanicolaou smear with manual screening 19 U/L 15-37 [facility] Thin prep Papanicolaou smear with manual screening 8 5-15 [facility] Absolute lymphocyte counton 07-31-2022 Lymphocytes Auto (Unsp spec) [#/Vol] 1.31 10*3/uL 0.83-4.51 [facility] Basophil percentageon 2022 Basophil percentage 2.4 mg/dL 2.5-4.9 [facility] Basophils/100 WBC (Bld) 0.8 % 0-1 [facility] Bilirubin [Mass/Vol] 0.80 mg/dL 0.20-1.00 [facility] Comment on above: For patients on eltr ombopag therapy, use of [employer] [place] TBIL is not recommended. Chloride [Moles/Vol] 108 mmol/L 98-107 [facility] Eosinophils/100 WBC (Bld) 4.3 % 0-5 [facility] Glucose [Mass/Vol] 105 mg/dL 74-106 [facility] Comment on above: Fasting Glucose resu lt from 100 to 125 mg/dL suggests IMPAIRED HOMEOSTASIS per A.D.A. criteria. Neutrophils (Bld) [#/Vol] 3.0 10*3/uL 2.0-7.7 [facility] Neutrophils/100 WBC (Bld) 58.3 % 47-70 [facility] Potassium [Moles/Vol] 4.3 mmol/L 3.5-5.1 [facility] Protein [Mass/Vol] 6.6 g/dL 6.4-8.2 [facility] Sodium [Moles/Vol] 137 mmol/L 136-145 [facility] WBC (Bld) [#/Vol] 5.1 10*3/uL 4.4-11.0 [facility] Blood erythrocytes count (nu mber/volume)on 07-31-2022 RBC (Bld) [#/Vol] 4.35 10*6/uL 4.6-6.2 [facility] Blood hemoglobin measurement (mass/volume)on 07-31-2022 Hemoglobin (Bld) [Mass/Vol] 12.9 g/dL 13.0-16.5 [facility] Blood lymphocytes/100 leukoc yteson 07-31-2022 Lymphocytes/100 WBC (Bld) 25.6 % 19-41 [facility] Blood monocytes/100 leukocyt eson 07-31-2022 Monocytes/100 WBC (Bld) 10.4 % 0-10 [facility] Blood platelet mean volumeon 07-31-2022 Platelet mean volume (Bld) [Entitic vol] 9.4 fL 6.2-12.0 [facility] Determination of erythrocyte mean corpuscular volume (MCV)on 07-31-2022 MCV (RBC) [Entitic vol] 88.7 fL 80-94 [facility] Direct bilirubinon Bilirubin.direct [Mass/Vol] 0.25 mg/dL 0.00-0.30 [facility] Hematocrit Auto (Bld) [Volum e fraction]on 07-31-2022 Hematocrit (Bld) [Volume fraction] 38.6 % 40-54 [facility] INR in Blood by Coagulation assayon 07-31-2022 INR Coag (Bld) [Relative time] 1.2 {INR} [facility] Laboratory - Chemistry and C hemistry - challengeon 07-31-2022 ALP [Catalytic activity/Vol] 102 U/L 45-117 [facility] ALT [Catalytic activity/Vol] 38 U/L 16-61 [facility] Amylase [Catalytic activity/Vol] 103 U/L 15-85 [facility] CO2 [Moles/Vol] 21.0 mmol/L 21.0-32.0 [facility] Globulin (S) [Mass/Vol] 3.2 g/dL 2.2-4.2 [facility] Magnesium [Mass/Vol] 1.6 mg/dL 1.6-2.6 [facility] Urea nitrogen/Creatinine [Mass ratio] 18.3 mg/mg 10-20 [facility] Laboratory - Coagulationon 0 07-31-2022 PT Coag (PPP) [Time] 15.1 s 11.7-14.9 [facility] Laboratory - Hematology and Cell countson 07-31-2022 Erythrocyte distribution width (RBC) [Entitic vol] 41.3 fL 35.1-43.9 [facility] Erythrocyte distribution width (RBC) [Ratio] 12.6 % 11.6-14.6 [facility] Immature granulocytes/100 WBC (Bld) 0.600 % 0.0-0.9 [facility] Comment on above: IG% - Immature Granu locytes (promyelocytes, myelocytes and metamyelocytes) > 1% indicates that a LEFT SHIFT is Present. MCH (RBC) [Entitic mass] 29.7 pg 27.0-32.0 [facility] Nucleated RBC/100 WBC (Bld) [Ratio] 0 % 0-5 [facility] MCHC Auto (RBC) [Mass/Vol]on 07-31-2022 MCHC (RBC) [Mass/Vol] 33.4 g/dL 32-36 [facility] No Panel Informationon 07-31 Estimated GFR (MDRD) Amer 90 mL/min >60 [facility] Comment on above: GFR Calc Estimated GFR (MDRD) Non-Af Amer 74 mL/min >60 [facility] Comment on above: Non- GFR Calc Platelets bldon 07-31-2022 Platelets (Bld) [#/Vol] 171 10*3/uL 150-450 [facility] Serum or plasma albumin ginny urement (mass/volume)on 07-31-2022 Albumin [Mass/Vol] 3.4 g/dL 3.2-5.0 [facility] Serum or plasma calcium ginny urement (mass/volume)on 07-31-2022 Calcium [Mass/Vol] 8.6 mg/dL 8.5-10.1 [facility] Serum or plasma creatinine m easurement (mass/volume)on 07-31-2022 Creatinine [Mass/Vol] 1.15 mg/dL 0.70-1.30 [facility] Comment on above: The validity of the calculated GFR & GFRAA in patients over 70 years has not been determined. Clinical correlation is essential. Serum or plasma urea nitroge n measurement (mass/volume)on 07-31-2022 Urea nitrogen [Mass/Vol] 21 mg/dL 7-18 [facility] Thin prep Papanicolaou smear with manual screeningon 07-31-2022 Thin prep Papanicolaou smear with manual screening 29 U/L 15-37 [facility] Thin prep Papanicolaou smear with manual screening 8 5-15 [facility] Absolute lymphocyte counton 07-17-2022 Lymphocytes Auto (Unsp spec) [#/Vol] 0.98 10*3/uL 0.83-4.51 [facility] Basophil percentageon 2022 Basophils/100 WBC (Bld) 0.9 % 0-1 [facility] Bilirubin [Mass/Vol] 0.90 mg/dL 0.20-1.00 [facility] Comment on above: For patients on eltr ombopag therapy, use of [employer] [place] TBIL is not recommended. Chloride [Moles/Vol] 111 mmol/L 98-107 [facility] Eosinophils/100 WBC (Bld) 6.8 % 0-5 [facility] Glucose [Mass/Vol] 119 mg/dL 74-106 [facility] Comment on above: Fasting Glucose resu lt from 100 to 125 mg/dL suggests IMPAIRED HOMEOSTASIS per A.D.A. criteria. Neutrophils (Bld) [#/Vol] 2.6 10*3/uL 2.0-7.7 [facility] Neutrophils/100 WBC (Bld) 59.4 % 47-70 [facility] Potassium [Moles/Vol] 4.1 mmol/L 3.5-5.1 [facility] Protein [Mass/Vol] 6.7 g/dL 6.4-8.2 [facility] Sodium [Moles/Vol] 140 mmol/L 136-145 [facility] WBC (Bld) [#/Vol] 4.4 10*3/uL 4.4-11.0 [facility] Blood erythrocytes count (nu mber/volume)on 07-17-2022 RBC (Bld) [#/Vol] 4.51 10*6/uL 4.6-6.2 [facility] Blood hemoglobin measurement (mass/volume)on 07-17-2022 Hemoglobin (Bld) [Mass/Vol] 13.6 g/dL 13.0-16.5 [facility] Blood lymphocytes/100 leukoc yteson 07-17-2022 Lymphocytes/100 WBC (Bld) 22.2 % 19-41 [facility] Blood monocytes/100 leukocyt eson 07-17-2022 Monocytes/100 WBC (Bld) 10.2 % 0-10 [facility] Blood platelet mean volumeon 07-17-2022 Platelet mean volume (Bld) [Entitic vol] 9.1 fL 6.2-12.0 [facility] Determination of erythrocyte mean corpuscular volume (MCV)on 07-17-2022 MCV (RBC) [Entitic vol] 89.4 fL 80-94 [facility] Direct bilirubinon 3 Bilirubin.direct [Mass/Vol] 0.29 mg/dL 0.00-0.30 [facility] Hematocrit Auto (Bld) [Volum e fraction]on 07-17-2022 Hematocrit (Bld) [Volume fraction] 40.3 % 40-54 [facility] Laboratory - Chemistry and C hemistry - challengeon 07-17-2022 ALP [Catalytic activity/Vol] 105 U/L 45-117 [facility] ALT [Catalytic activity/Vol] 50 U/L 16-61 [facility] Amylase [Catalytic activity/Vol] 97 U/L 15-85 [facility] CO2 [Moles/Vol] 23.0 mmol/L 21.0-32.0 [facility] Globulin (S) [Mass/Vol] 3.3 g/dL 2.2-4.2 [facility] Urea nitrogen/Creatinine [Mass ratio] 21.0 mg/mg 10-20 [facility] Laboratory - Hematology and Cell countson 07-17-2022 Erythrocyte distribution width (RBC) [Entitic vol] 41.9 fL 35.1-43.9 [facility] Erythrocyte distribution width (RBC) [Ratio] 12.7 % 11.6-14.6 [facility] Immature granulocytes/100 WBC (Bld) 0.500 % 0.0-0.9 [facility] Comment on above: IG% - Immature Granu locytes (promyelocytes, myelocytes and metamyelocytes) > 1% indicates that a LEFT SHIFT is Present. MCH (RBC) [Entitic mass] 30.2 pg 27.0-32.0 [facility] Nucleated RBC/100 WBC (Bld) [Ratio] 0 % 0-5 [facility] MCHC Auto (RBC) [Mass/Vol]on 07-17-2022 MCHC (RBC) [Mass/Vol] 33.7 g/dL 32-36 [facility] No Panel Informationon 07-17 Estimated GFR (MDRD) Amer 99 mL/min >60 [facility] Comment on above: GFR Calc Estimated GFR (MDRD) Non-Af Amer 82 mL/min >60 [facility] Comment on above: Non- GFR Calc Miscellaneous Test See comment [facility] Comment on above: TEST RESULT LIMITSHB V Real-Time PCR, Quant HBV IU/mL HBV DNA not detected IU/mL log10 HBV IU/mL Unable to calculate result since non-numeric result obtained for component test.Test Information: The reportable range for this assay is 10 IU/mL to 1 billion IU/mL. TESTING PERFORMED AT [facility]. ORIGINAL REPORT ON FILE IN LAB CONTAINS ADDITIONAL TEST SITE INFORMATION. Tacrolimus (Prograf) Level 5.7 ng/mL 2.0-20.0 [facility] Comment on above: Trough (immediately following transplant) 15.0 Trough (steady state, 2 weeks or more after transplant): 3.0 - 8.0 Performed by LC-MS/MS technology.Performed at: [address] [id number] Director: Arlyn Avila MD, Phone: [phone] Platelets bldon 07-17-2022 Platelets (Bld) [#/Vol] 159 10*3/uL 150-450 [facility] Serum or plasma albumin ginny urement (mass/volume)on 07-17-2022 Albumin [Mass/Vol] 3.4 g/dL 3.2-5.0 [facility] Serum or plasma calcium ginny urement (mass/volume)on 07-17-2022 Calcium [Mass/Vol] 8.8 mg/dL 8.5-10.1 [facility] Serum or plasma creatinine m easurement (mass/volume)on 07-17-2022 Creatinine [Mass/Vol] 1.05 mg/dL 0.70-1.30 [facility] Comment on above: The validity of the calculated GFR & GFRAA in patients over 70 years has not been determined. Clinical correlation is essential. Serum or plasma urea nitroge n measurement (mass/volume)on 07-17-2022 Urea nitrogen [Mass/Vol] 22 mg/dL 7-18 [facility] Thin prep Papanicolaou smear with manual screeningon 07-17-2022 Thin prep Papanicolaou smear with manual screening 36 U/L 15-37 [facility] Thin prep Papanicolaou smear with manual screening 6 5-15 [facility] Absolute lymphocyte counton 06-20-2022 Lymphocytes Auto (Unsp spec) [#/Vol] 1.25 10*3/uL 0.83-4.51 [facility] Basophil percentageon 2022 Basophil percentage 3.7 mg/dL 2.5-4.9 [facility] Basophils/100 WBC (Bld) 0.6 % 0-1 [facility] Bilirubin [Mass/Vol] 0.70 mg/dL 0.20-1.00 [facility] Comment on above: For patients on eltr ombopag therapy, use of [employer] [place] TBIL is not recommended. Chloride [Moles/Vol] 108 mmol/L 98-107 [facility] Eosinophils/100 WBC (Bld) 6.9 % 0-5 [facility] Glucose [Mass/Vol] 90 mg/dL 74-106 [facility] Neutrophils (Bld) [#/Vol] 2.8 10*3/uL 2.0-7.7 [facility] Neutrophils/100 WBC (Bld) 57.8 % 47-70 [facility] Potassium [Moles/Vol] 4.2 mmol/L 3.5-5.1 [facility] Protein [Mass/Vol] 7.0 g/dL 6.4-8.2 [facility] Sodium [Moles/Vol] 139 mmol/L 136-145 [facility] WBC (Bld) [#/Vol] 4.9 10*3/uL 4.4-11.0 [facility] Blood erythrocytes count (nu mber/volume)on 06-20-2022 RBC (Bld) [#/Vol] 4.35 10*6/uL 4.6-6.2 [facility] Blood hemoglobin measurement (mass/volume)on 06-20-2022 Hemoglobin (Bld) [Mass/Vol] 13.3 g/dL 13.0-16.5 [facility] Blood lymphocytes/100 leukoc yteson 06-20-2022 Lymphocytes/100 WBC (Bld) 25.5 % 19-41 [facility] Blood monocytes/100 leukocyt eson 06-20-2022 Monocytes/100 WBC (Bld) 8.8 % 0-10 [facility] Blood platelet mean volumeon 06-20-2022 Platelet mean volume (Bld) [Entitic vol] 9.2 fL 6.2-12.0 [facility] Determination of erythrocyte mean corpuscular volume (MCV)on 06-20-2022 MCV (RBC) [Entitic vol] 91.0 fL 80-94 [facility] Direct bilirubinon Bilirubin.direct [Mass/Vol] 0.20 mg/dL 0.00-0.30 [facility] Hematocrit Auto (Bld) [Volum e fraction]on 06-20-2022 Hematocrit (Bld) [Volume fraction] 39.6 % 40-54 [facility] INR in Blood by Coagulation assayon 06-20-2022 INR Coag (Bld) [Relative time] 1.1 {INR} [facility] Laboratory - Chemistry and C hemistry - challengeon 06-20-2022 ALP [Catalytic activity/Vol] 117 U/L 45-117 [facility] ALT [Catalytic activity/Vol] 36 U/L 16-61 [facility] Amylase [Catalytic activity/Vol] 89 U/L 15-85 [facility] CO2 [Moles/Vol] 24.0 mmol/L 21.0-32.0 [facility] Globulin (S) [Mass/Vol] 3.5 g/dL 2.2-4.2 [facility] Magnesium [Mass/Vol] 1.9 mg/dL 1.6-2.6 [facility] Urea nitrogen/Creatinine [Mass ratio] 18.2 mg/mg 10-20 [facility] Laboratory - Coagulationon 0 06-20-2022 PT Coag (PPP) [Time] 14.0 s 11.7-14.9 [facility] - Hematology and Cell countson 06-20-2022 Erythrocyte distribution width (RBC) [Entitic vol] 41.1 fL 35.1-43.9 [facility] Erythrocyte distribution width (RBC) [Ratio] 12.4 % 11.6-14.6 [facility] Immature granulocytes/100 WBC (Bld) 0.400 % 0.0-0.9 [facility] Comment on above: IG% - Immature Granu locytes (promyelocytes, myelocytes and metamyelocytes) > 1% indicates that a LEFT SHIFT is Present. MCH (RBC) [Entitic mass] 30.6 pg 27.0-32.0 [facility] Nucleated RBC/100 WBC (Bld) [Ratio] 0 % 0-5 [facility] MCHC Auto (RBC) [Mass/Vol]on 06-20-2022 MCHC (RBC) [Mass/Vol] 33.6 g/dL 32-36 [facility] No Panel Informationon 06-20 Estimated GFR (MDRD) Amer 94 mL/min >60 [facility] Comment on above: GFR Calc Estimated GFR (MDRD) Non-Af Amer 78 mL/min >60 [facility] Comment on above: Non- GFR Calc Tacrolimus (Prograf) Level 6.8 ng/mL 2.0-20.0 [facility] Comment on above: Trough (immediately following transplant) 15.0 Trough (steady state, 2 weeks or more after transplant): 3.0 - 8.0 Performed by LC-MS/MS technology.Performed at: [address] [id number] Director: Arlyn Avila MD, Phone: [phone] Platelets bldon 06-20-2022 Platelets (Bld) [#/Vol] 178 10*3/uL 150-450 [facility] Serum or plasma albumin ginny urement (mass/volume)on 06-20-2022 Albumin [Mass/Vol] 3.5 g/dL 3.2-5.0 [facility] Serum or plasma calcium ginny urement (mass/volume)on 06-20-2022 Calcium [Mass/Vol] 9.2 mg/dL 8.5-10.1 [facility] Serum or plasma creatinine m easurement (mass/volume)on 06-20-2022 Creatinine [Mass/Vol] 1.10 mg/dL 0.70-1.30 [facility] Comment on above: The validity of the calculated GFR & GFRAA in patients over 70 years has not been determined. Clinical correlation is essential. Serum or plasma urea nitroge n measurement (mass/volume)on 06-20-2022 Urea nitrogen [Mass/Vol] 20 mg/dL 7-18 [facility] Thin prep Papanicolaou smear with manual screeningon 06-20-2022 Thin prep Papanicolaou smear with manual screening 26 U/L 15-37 [facility] Thin prep Papanicolaou smear with manual screening 7 5-15 [facility] Absolute lymphocyte counton 05-30-2022 Lymphocytes Auto (Unsp spec) [#/Vol] 1.56 10*3/uL 0.83-4.51 [facility] Basophil percentageon 2022 Basophil percentage 2.8 mg/dL 2.5-4.9 [facility] Basophils/100 WBC (Bld) 0.7 % 0-1 [facility] Bilirubin [Mass/Vol] 1.20 mg/dL 0.20-1.00 [facility] Comment on above: For patients on eltr ombopag therapy, use of Dimension [place] TBIL is not recommended. Chloride [Moles/Vol] 109 mmol/L 98-107 [facility] Eosinophils/100 WBC (Bld) 4.7 % 0-5 [facility] Glucose [Mass/Vol] 105 mg/dL 74-106 [facility] Comment on above: Fasting Glucose resu lt from 100 to 125 mg/dL suggests IMPAIRED HOMEOSTASIS per A.D.A. criteria. Neutrophils (Bld) [#/Vol] 1.9 10*3/uL 2.0-7.7 [facility] Neutrophils/100 WBC (Bld) 46.9 % 47-70 [facility] Potassium [Moles/Vol] 4.2 mmol/L 3.5-5.1 [facility] Protein [Mass/Vol] 7.0 g/dL 6.4-8.2 [facility] Sodium [Moles/Vol] 141 mmol/L 136-145 [facility] WBC (Bld) [#/Vol] 4.1 10*3/uL 4.4-11.0 [facility] Blood erythrocytes count (nu mber/volume)on 05-30-2022 RBC (Bld) [#/Vol] 4.27 10*6/uL 4.6-6.2 [facility] Blood hemoglobin measurement (mass/volume)on 05-30-2022 Hemoglobin (Bld) [Mass/Vol] 13.0 g/dL 13.0-16.5 [facility] Blood lymphocytes/100 leukoc yteson 05-30-2022 Lymphocytes/100 WBC (Bld) 38.2 % 19-41 [facility] Blood monocytes/100 leukocyt eson 05-30-2022 Monocytes/100 WBC (Bld) 9.3 % 0-10 [facility] Blood platelet mean volumeon 05-30-2022 Platelet mean volume (Bld) [Entitic vol] 9.5 fL 6.2-12.0 [facility] Determination of erythrocyte mean corpuscular volume (MCV)on 05-30-2022 MCV (RBC) [Entitic vol] 91.3 fL 80-94 [facility] Direct bilirubinon 3 Bilirubin.direct [Mass/Vol] 0.30 mg/dL 0.00-0.30 [facility] Hematocrit Auto (Bld) [Volum e fraction]on 05-30-2022 Hematocrit (Bld) [Volume fraction] 39.0 % 40-54 [facility] INR in Blood by Coagulation assayon 05-30-2022 INR Coag (Bld) [Relative time] 1.2 {INR} [facility] Laboratory - Chemistry and C hemistry - challengeon 05-30-2022 ALP [Catalytic activity/Vol] 142 U/L 45-117 [facility] ALT [Catalytic activity/Vol] 58 U/L 16-61 [facility] Amylase [Catalytic activity/Vol] 107 U/L 15-85 [facility] CO2 [Moles/Vol] 24.0 mmol/L 21.0-32.0 [facility] Globulin (S) [Mass/Vol] 3.4 g/dL 2.2-4.2 [facility] Magnesium [Mass/Vol] 2.1 mg/dL 1.6-2.6 [facility] Urea nitrogen/Creatinine [Mass ratio] 16.1 mg/mg 10-20 [facility] Laboratory - Coagulationon 0 05-30-2022 PT Coag (PPP) [Time] 15.0 s 11.7-14.9 [facility] - Hematology and Cell countson 05-30-2022 Erythrocyte distribution width (RBC) [Entitic vol] 43.0 fL 35.1-43.9 [facility] Erythrocyte distribution width (RBC) [Ratio] 13.0 % 11.6-14.6 [facility] Immature granulocytes/100 WBC (Bld) 0.200 % 0.0-0.9 [facility] Comment on above: IG% - Immature Granu locytes (promyelocytes, myelocytes and metamyelocytes) > 1% indicates that a LEFT SHIFT is Present. MCH (RBC) [Entitic mass] 30.4 pg 27.0-32.0 [facility] Nucleated RBC/100 WBC (Bld) [Ratio] 0 % 0-5 [facility] MCHC Auto (RBC) [Mass/Vol]on 05-30-2022 MCHC (RBC) [Mass/Vol] 33.3 g/dL 32-36 [facility] No Panel Informationon 05-30 Estimated GFR (MDRD) Amer 106 mL/min >60 [facility] Comment on above: GFR Calc Estimated GFR (MDRD) Non-Af Amer 88 mL/min >60 [facility] Comment on above: Non- GFR Calc Tacrolimus (Prograf) Level 6.5 ng/mL 2.0-20.0 [facility] Comment on above: Trough (immediately following transplant) 15.0 Trough (steady state, 2 weeks or more after transplant): 3.0 - 8.0 Performed by LC-MS/MS technology.Performed at: [address] [id number] Director: Arlyn Avila MD, Phone: [phone] Platelets bldon 05-30-2022 Platelets (Bld) [#/Vol] 175 10*3/uL 150-450 [facility] Serum or plasma albumin ginny urement (mass/volume)on 05-30-2022 Albumin [Mass/Vol] 3.6 g/dL 3.2-5.0 [facility] Serum or plasma calcium ginny urement (mass/volume)on 05-30-2022 Calcium [Mass/Vol] 8.9 mg/dL 8.5-10.1 [facility] Serum or plasma creatinine m easurement (mass/volume)on 05-30-2022 Creatinine [Mass/Vol] 0.99 mg/dL 0.70-1.30 [facility] Comment on above: The validity of the calculated GFR & GFRAA in patients over 70 years has not been determined. Clinical correlation is essential. Serum or plasma urea nitroge n measurement (mass/volume)on 05-30-2022 Urea nitrogen [Mass/Vol] 16 mg/dL 7-18 [facility] Thin prep Papanicolaou smear with manual screeningon 05-30-2022 Thin prep Papanicolaou smear with manual screening 41 U/L 15-37 [facility] Thin prep Papanicolaou smear with manual screening 8 5-15 [facility] Differential,Body Fluidson 0 05-12-2021 Other Cells 3 % Normal [facility] Comment on above: Result Comment: Reac tive mesothelial cells and acute inflammation present. No malignant cells identified Chris Junior DO. Revised: Comment was added, verified by TDF at 14:30 on 05/02/21 Performed By: #### D IFBF, AMYM3, FLDCC, ALBM3, LDMS3, GLMS3 #### [facility] [address] [place] [address] Comp Panel with Mg Reflexon 05-08-2021 Bilirubin [Mass/Vol] 27.5 mg/dL High 0.2-1.3 [facility] Comment on above: Performed By: #### C /BLD #### [facility] [address] [place] [address] ALT [Catalytic activity/Vol] 48 U/L Normal 0-49 [facility] Comment on above: Result Comment: The ALT test is performed by an updated assay method. Please note that the reference intervals have been changed and are now sex specific. Performed By: #### C /BLD #### [facility] [address] [place], [place] Calcium [Mass/Vol] 8.0 mg/dL Low 8.4-10.4 [facility] Comment on above: Performed By: #### C /BLD #### [facility] [address] [place], [place] Glucose [Mass/Vol] 97 mg/dL Normal 70-100 [facility] Comment on above: Performed By: #### C /BLD #### [facility] [address] [place], [place] ALP [Catalytic activity/Vol] 307 U/L High 38-126 [facility] Comment on above: Performed By: #### C /BLD #### [facility] [address] [place], [place] Anion gap [Moles/Vol] 9 mmol/L Normal 3-13 [facility] Comment on above: Performed By: #### C /BLD #### [facility] [address] [place], [place] AST [Catalytic activity/Vol] 117 U/L High 15-46 [facility] Comment on above: Performed By: #### C /BLD #### [facility] [address] [place], [place] CO2 [Moles/Vol] 23 mmol/L Normal 22-30 [facility] Comment on above: Performed By: #### C /BLD #### [facility] [address] [place], [place] Creatinine [Mass/Vol] 0.80 mg/dL Normal 0.52-1.25 [facility] Comment on above: Performed By: #### C /BLD #### [facility] [address] [place], [place] eGFR OTHER > 90.0 Normal >60 [facility] Comment on above: Result Comment: KDIG O guidelines provide the following GFR categories: Stage GFR(ml/min/1.73 m2) Terms G1 >=90 Normal or high G2 60-89 Mildly decreased* G3a 45-59 Mildly to moderately decreased G3b 30-44 Moderately to severely decreased G4 15-29 Severely decreased G5 <15 Kidney failure *Relative to young adult level. In the absence of evidence of kidney damage, neither GFR category G1 nor G2 fulfill the criteria for CKD. The CKD-EPI equation is validated in individuals 18 years of age and older. Currently the best equation for estimating glomerular filtration rate (GFR) from serum creatinine in children is the Bedside Bardales equation. It is less accurate in patients with extremes of muscle mass, restriction of dietary protein, ingestion of creatine, extra-renal metabolism of creatinine, or treatment with medications that affect renal tubular creatinine secretion. Performed By: #### C /BLD #### [place] [address] [place], [place] GFR/1.73 sq M.predicted among blacks MDRD (S/P/Bld) [Vol rate/Area] mL/min/{1.73_m2} Normal >60 [facility] Comment on above: Performed By: #### C /BLD #### [place] [address] [place], [place] Protein [Mass/Vol] 6.3 g/dL Normal 6.3-8.2 [facility] Comment on above: Performed By: #### C /BLD #### [address] Urea nitrogen [Mass/Vol] 20 mg/dL High 7-17 [facility] Comment on above: Performed By: #### C /BLD #### [place] [address] [place], [place] Potassium [Moles/Vol] 3.6 mmol/L Normal 3.5-5.1 [facility] Comment on above: Performed By: #### C /BLD #### [address] Sodium [Moles/Vol] 130 mmol/L Low 135-145 [facility] Comment on above: Performed By: #### C /BLD #### [address] Albumin [Mass/Vol] 2.4 g/dL Low 3.5-5.0 [facility] Comment on above: Performed By: #### C /BLD #### [place] [address] [address] [place], [place] Chloride [Moles/Vol] 97 mmol/L Low 98-107 [facility] Comment on above: Performed By: #### C /BLD #### [place] [address] [address] [place], [place] Hemogram w/ Autodiffon 05-08 Erythrocyte distribution width (RBC) [Ratio] 16.0 % High 11.5-14.5 [facility] Comment on above: Performed By: #### C /BLD #### [place] [address] [address] [place], [place] Hematocrit (Bld) [Volume fraction] 31.4 % Low 40.0-52.0 [facility] Comment on above: Performed By: #### C /BLD #### [place] [address] [address] [place], [place] Hemoglobin (Bld) [Mass/Vol] 10.5 g/dL Low 13.0-18.0 [facility] Comment on above: Performed By: #### C /BLD #### [place] [address] [address] [place], [place] MCH (RBC) [Entitic mass] 38.9 pg High 26.0-34.0 [facility] Comment on above: Performed By: #### C /BLD #### [place] [address] [address] [place], [place] MCHC 33.5 % Normal 32.0-36.0 [facility] Comment on above: Performed By: #### C /BLD #### [address] MCV (RBC) [Entitic vol] 116.3 fL High 80.0-98.0 [facility] Comment on above: Performed By: #### C /BLD #### [place] [address] [address] [place], [place] Platelet mean volume (Bld) [Entitic vol] 8.1 fL Normal 7.4-10.4 [facility] Comment on above: Performed By: #### C /BLD #### [place] [address] [address] [place], [place] Platelets (Bld) [#/Vol] 98 10*3/uL Low 140-440 [facility] Comment on above: Performed By: #### C /BLD #### [place] [address] [address] [place], [place] RBC (Bld) [#/Vol] 2.70 10*6/uL Low 4.40-5.90 [facility] Comment on above: Performed By: #### C /BLD #### [place] [address] [place], [place] WBC (Bld) [#/Vol] 15.1 10*3/uL High 3.6-10.7 [facility] Comment on above: Performed By: #### C /BLD #### [place] [address] [address] [place], [place] Manual Diffon 05-08-2021 Abs Baso Cnt 0.0 10*3/uL Normal 0.0-0.2 [facility] Comment on above: Performed By: #### C /BLD #### [address] Abs Eosin Cnt 0.0 10*3/uL Normal 0.0-0.5 [facility] Comment on above: Performed By: #### C /BLD #### [place] [address] [address] [place], [place] Abs Lymph Cnt 0.3 10*3/uL Low 1.1-4.5 [facility] Comment on above: Performed By: #### C /BLD #### [address] Abs Monocyte Cnt 1.5 10*3/uL High 0.2-1.1 [facility] Comment on above: Performed By: #### C /BLD #### [place] [address] [place], [place] Abs Neutrophile Cnt 13.3 10*3/uL High 2.2-8.2 [facility] Comment on above: Performed By: #### C /BLD #### [facility] [address] [place], [place] Anisocytosis Moderate Normal [facility] Comment on above: Performed By: #### C /BLD #### [facility] [address], [place] Bands 2 % Normal 0-3 [facility] Comment on above: Performed By: #### C /BLD #### [facility] [address] [place] Basophils 0 % Normal 0-2 [facility] Comment on above: Performed By: #### C /BLD #### [facility] [address] [place], [place] Cells counted 100 Normal [facility] Comment on above: Performed By: #### C /BLD #### [facility] [address] [place] Eosinophils 0 % Low 1-6 [facility] Comment on above: Performed By: #### C /BLD #### [facility] [address] [place] Lymphocytes 2 % Low 20-40 [facility] Comment on above: Performed By: #### C /BLD #### [facility] [address] [place] Macrocytosis Moderate Normal [facility] Comment on above: Performed By: #### C /BLD #### [facility] [address] [place] Monocytes 10 % Normal 2-10 [facility] Comment on above: Performed By: #### C /BLD #### [facility] [address] [place] Ovalocytes Slight Normal [facility] Comment on above: Performed By: #### C /BLD #### [place] [address] [address] [place], [place] Poikilocytosis Slight Normal [facility] Comment on above: Performed By: #### C /BLD #### [facility] [address] [place], [place] Polychromasia Slight Normal [facility] Comment on above: Performed By: #### C /BLD #### [facility] [address] [place], [place] RBC Morphology See Prev Normal [facility] Comment on above: Performed By: #### C /BLD #### [facility] [address] [place], [place] Seg Neutrophils 86 % High 40-80 [facility] Comment on above: Performed By: #### C /BLD #### [facility] [address] [place], [place] Tear Drop Forms Slight Normal [facility] Comment on above: Performed By: #### C /BLD #### [place] [address] [address] [place], [place] Prothrombin Timeon INR 1.7 High 0.9-1.1 [facility] Comment on above: Result Comment: Herber mmended Anticoagulant Therapy: SEE BELOW ----- INR of 2.0 - 3.0 : - Prophylaxis of Venous Thrombosis (high-risk surgery) - Treatment of Venous Thrombosis - Treatment of Pulmonary Embolism (Includes tissue heart valves, Acute Myocardial Infarction to prevent systemic embolism, Valvular Heart Disease, and Atrial Fibrillation) ----- INR of 2.5 - 3.5 : - Mechanical Prosthetic Valves (high risk) - If oral anticoagulant therapy is used to prevent Myocardial Infarction Performed By: #### C /BLD #### [facility] [address] [place], [place] PT Coag (PPP) [Time] 17.4 s High 9.0-12.0 [facility] Comment on above: Result Comment: . Performed By: #### C /BLD #### [facility] [address] [place], [place] CULTURE BLOODon 05-07-2021 Microscopic examination of blood, culture CULTURE BLOOD --> Status: F No growth at 5 days. Normal [facility] Comment on above: Performed By: #### C /BLD #### [place] [address] [address] [place], [place] CULTURE BLOOD (Two)on 2021 Microscopic examination of blood, culture CULTURE BLOOD (Two) --> Status: F No growth at 5 days. Normal [facility] Comment on above: Performed By: #### C /BLT #### [place] [address] [address] [place], [place] Prothrombin Timeon INR 1.8 High 0.9-1.1 [facility] Comment on above: Result Comment: Herber mmended Anticoagulant Therapy: SEE BELOW ----- INR of 2.0 - 3.0 : - Prophylaxis of Venous Thrombosis (high-risk surgery) - Treatment of Venous Thrombosis - Treatment of Pulmonary Embolism (Includes tissue heart valves, Acute Myocardial Infarction to prevent systemic embolism, Valvular Heart Disease, and Atrial Fibrillation) ----- INR of 2.5 - 3.5 : - Mechanical Prosthetic Valves (high risk) - If oral anticoagulant therapy is used to prevent Myocardial Infarction Performed By: #### D IFBF, AMYM3, FLDCC, ALBM3, LDMS3, GLMS3 #### [place] [address] [place], [place] PT Coag (PPP) [Time] 18.2 s High 9.0-12.0 [facility] Comment on above: Result Comment: . Performed By: #### D IFBF, AMYM3, FLDCC, ALBM3, LDMS3, GLMS3 #### [place] [address] [place], [place] Calcium,Ionizedon 05-06-2021 Ionized Ca,Measured 3.90 mg/dL Low 4.30-5.20 [facility] Comment on above: Performed By: #### D IFBF, AMYM3, FLDCC, ALBM3, LDMS3, GLMS3 #### [address] pH, Ionized Calcium 7.53 High 7.31-7.46 [facility] Comment on above: Performed By: #### D IFBF, AMYM3, FLDCC, ALBM3, LDMS3, GLMS3 #### [facility] [address] [place], [place] Comp Metabolic Panelon 05-06 Calcium [Mass/Vol] 7.7 mg/dL Low 8.4-10.4 [facility] Comment on above: Performed By: #### D IFBF, AMYM3, FLDCC, ALBM3, LDMS3, GLMS3 #### [place] [address] [address] [place], [place] ALP [Catalytic activity/Vol] 345 U/L High 38-126 [facility] Comment on above: Performed By: #### D IFBF, AMYM3, FLDCC, ALBM3, LDMS3, GLMS3 #### [place] [address] [address] [place], [place] ALT [Catalytic activity/Vol] 42 U/L Normal 0-49 [facility] Comment on above: Result Comment: The ALT test is performed by an updated assay method. Please note that the reference intervals have been changed and are now sex specific. Performed By: #### D IFBF, AMYM3, FLDCC, ALBM3, LDMS3, GLMS3 #### [place] [address] [address] [place], [place] Anion gap [Moles/Vol] 6 mmol/L Normal 3-13 [facility] Comment on above: Performed By: #### D IFBF, AMYM3, FLDCC, ALBM3, LDMS3, GLMS3 #### [place] [address] [address] [place], [place] AST [Catalytic activity/Vol] 129 U/L High 15-46 [facility] Comment on above: Performed By: #### D IFBF, AMYM3, FLDCC, ALBM3, LDMS3, GLMS3 #### [place] [address] [address] [place], [place] Bilirubin [Mass/Vol] 26.2 mg/dL High 0.2-1.3 [facility] Comment on above: Performed By: #### D IFBF, AMYM3, FLDCC, ALBM3, LDMS3, GLMS3 #### [place] [address] [place], [place] CO2 [Moles/Vol] 27 mmol/L Normal 22-30 [facility] Comment on above: Performed By: #### D IFBF, AMYM3, FLDCC, ALBM3, LDMS3, GLMS3 #### [facility] [address] [place], [place] Glucose [Mass/Vol] 94 mg/dL Normal 70-100 [facility] Comment on above: Performed By: #### D IFBF, AMYM3, FLDCC, ALBM3, LDMS3, GLMS3 #### [place] [address] [address] [place], [place] Protein [Mass/Vol] 6.9 g/dL Normal 6.3-8.2 [facility] Comment on above: Performed By: #### D IFBF, AMYM3, FLDCC, ALBM3, LDMS3, GLMS3 #### [place] [address] [address] [place], [place] Urea nitrogen [Mass/Vol] 13 mg/dL Normal 7-17 [facility] Comment on above: Performed By: #### D IFBF, AMYM3, FLDCC, ALBM3, LDMS3, GLMS3 #### [place] [address] [place], [place] Creatinine [Mass/Vol] 0.77 mg/dL Normal 0.52-1.25 [facility] Comment on above: Performed By: #### D IFBF, AMYM3, FLDCC, ALBM3, LDMS3, GLMS3 #### [place] [address] [place], [place] eGFR OTHER > 90.0 Normal >60 [facility] Comment on above: Result Comment: KDIG O guidelines provide the following GFR categories: Stage GFR(ml/min/1.73 m2) Terms G1 >=90 Normal or high G2 60-89 Mildly decreased* G3a 45-59 Mildly to moderately decreased G3b 30-44 Moderately to severely decreased G4 15-29 Severely decreased G5 <15 Kidney failure *Relative to young adult level. In the absence of evidence of kidney damage, neither GFR category G1 nor G2 fulfill the criteria for CKD. The CKD-EPI equation is validated in individuals 18 years of age and older. Currently the best equation for estimating glomerular filtration rate (GFR) from serum creatinine in children is the Bedside Bardales equation. It is less accurate in patients with extremes of muscle mass, restriction of dietary protein, ingestion of creatine, extra-renal metabolism of creatinine, or treatment with medications that affect renal tubular creatinine secretion. Performed By: #### D IFBF, AMYM3, FLDCC, ALBM3, LDMS3, GLMS3 #### [place] [address] [place], [place] GFR/1.73 sq M.predicted among blacks MDRD (S/P/Bld) [Vol rate/Area] mL/min/{1.73_m2} Normal >60 [facility] Comment on above: Performed By: #### D IFBF, AMYM3, FLDCC, ALBM3, LDMS3, GLMS3 #### [address] Albumin [Mass/Vol] 2.5 g/dL Low 3.5-5.0 [facility] Comment on above: Performed By: #### D IFBF, AMYM3, FLDCC, ALBM3, LDMS3, GLMS3 #### [place] [address] [place], [place] Chloride [Moles/Vol] 99 mmol/L Normal 98-107 [facility] Comment on above: Performed By: #### D IFBF, AMYM3, FLDCC, ALBM3, LDMS3, GLMS3 #### [address] Potassium [Moles/Vol] 3.5 mmol/L Normal 3.5-5.1 [facility] Comment on above: Performed By: #### D IFBF, AMYM3, FLDCC, ALBM3, LDMS3, GLMS3 #### [address] Sodium [Moles/Vol] 132 mmol/L Low 135-145 [facility] Comment on above: Performed By: #### D IFBF, AMYM3, FLDCC, ALBM3, LDMS3, GLMS3 #### [address], [place] Folateon 05-06-2021 Folate 3.7 ng/mL Normal [facility] Comment on above: Result Comment: >2.8 Performed By: #### D IFBF, AMYM3, FLDCC, ALBM3, LDMS3, GLMS3 #### [address] Hemogram w/ Autodiffon 05-06 Erythrocyte distribution width (RBC) [Ratio] 15.2 % High 11.5-14.5 [facility] Comment on above: Performed By: #### D IFBF, AMYM3, FLDCC, ALBM3, LDMS3, GLMS3 #### [address] Hematocrit (Bld) [Volume fraction] 30.3 % Low 40.0-52.0 [facility] Comment on above: Performed By: #### D IFBF, AMYM3, FLDCC, ALBM3, LDMS3, GLMS3 #### [address] Hemoglobin (Bld) [Mass/Vol] 10.3 g/dL Low 13.0-18.0 [facility] Comment on above: Performed By: #### D IFBF, AMYM3, FLDCC, ALBM3, LDMS3, GLMS3 #### [address] MCH (RBC) [Entitic mass] 39.3 pg High 26.0-34.0 [facility] Comment on above: Performed By: #### D IFBF, AMYM3, FLDCC, ALBM3, LDMS3, GLMS3 #### [address] MCHC 34.1 % Normal 32.0-36.0 [facility] Comment on above: Performed By: #### D IFBF, AMYM3, FLDCC, ALBM3, LDMS3, GLMS3 #### [address] MCV (RBC) [Entitic vol] 115.1 fL High 80.0-98.0 [facility] Comment on above: Performed By: #### D IFBF, AMYM3, FLDCC, ALBM3, LDMS3, GLMS3 #### [place] [place], [place] Platelet mean volume (Bld) [Entitic vol] 8.8 fL Normal 7.4-10.4 [facility] Comment on above: Performed By: #### D IFBF, AMYM3, FLDCC, ALBM3, LDMS3, GLMS3 #### [place] [place], [place] Platelets (Bld) [#/Vol] 79 10*3/uL Low 140-440 [facility] Comment on above: Performed By: #### D IFBF, AMYM3, FLDCC, ALBM3, LDMS3, GLMS3 #### [place] [address] [place], [place] RBC (Bld) [#/Vol] 2.63 10*6/uL Low 4.40-5.90 [facility] Comment on above: Performed By: #### D IFBF, AMYM3, FLDCC, ALBM3, LDMS3, GLMS3 #### [place] [place], [place] WBC (Bld) [#/Vol] 9.9 10*3/uL Normal 3.6-10.7 [facility] Comment on above: Performed By: #### D IFBF, AMYM3, FLDCC, ALBM3, LDMS3, GLMS3 #### [address] Manual Diffon 05-06-2021 Abs Lymph Cnt 0.2 10*3/uL Low 1.1-4.5 [facility] Comment on above: Performed By: #### C /BLD #### [address] Abs Monocyte Cnt 0.9 10*3/uL Normal 0.2-1.1 [facility] Comment on above: Performed By: #### C /BLD #### [facility] [address] [place], [place] Abs Neutrophile Cnt 8.8 10*3/uL High 2.2-8.2 [facility] Comment on above: Performed By: #### C /BLD #### [place] [address], [place] Anisocytosis Slight Normal [facility] Comment on above: Performed By: #### C /BLD #### [place] [address] [place], [place] Bands 5 % High 0-3 [facility] Comment on above: Performed By: #### C /BLD #### [place] [address] [place], [place] Large Platelets Slight Normal [facility] Comment on above: Performed By: #### C /BLD #### [place] [address] [place], [place] Lymphocytes 2 % Low 20-40 [facility] Comment on above: Performed By: #### C /BLD #### [place] [address] [place], [place] Macrocytosis Slight Normal [facility] Comment on above: Performed By: #### C /BLD #### [place] [address] [place], [place] Monocytes 9 % Normal 2-10 [facility] Comment on above: Performed By: #### C /BLD #### [place] [address] [place], [place] Polychromasia Slight Normal [facility] Comment on above: Performed By: #### C /BLD #### [place] [address] [place], [place] RBC Morphology ABNORMAL Normal [facility] Comment on above: Performed By: #### C /BLD #### [place] [address] [place], [place] Seg Neutrophils 84 % High 40-80 [facility] Comment on above: Performed By: #### C /BLD #### [place] [address] [place], [place] Abs Baso Cnt 0.0 10*3/uL Normal 0.0-0.2 [facility] Comment on above: Performed By: #### C /BLD #### [facility] [address] [place], [place] Abs Eosin Cnt 0.0 10*3/uL Normal 0.0-0.5 [facility] Comment on above: Performed By: #### C /BLD #### [place] [address] [place], [place] Basophils 0 % Normal 0-2 [facility] Comment on above: Performed By: #### C /BLD #### [place] [address] [place], [place] Cells counted 100 Normal [facility] Comment on above: Performed By: #### C /BLD #### [place] [address] [place], [place] Eosinophils 0 % Low 1-6 [facility] Comment on above: Performed By: #### C /BLD #### [place] [address] [place], [place] Prothrombin Timeon 2 INR 1.6 High 0.9-1.1 [facility] Comment on above: Result Comment: Herber mmended Anticoagulant Therapy: SEE BELOW ----- INR of 2.0 - 3.0 : - Prophylaxis of Venous Thrombosis (high-risk surgery) - Treatment of Venous Thrombosis - Treatment of Pulmonary Embolism (Includes tissue heart valves, Acute Myocardial Infarction to prevent systemic embolism, Valvular Heart Disease, and Atrial Fibrillation) ----- INR of 2.5 - 3.5 : - Mechanical Prosthetic Valves (high risk) - If oral anticoagulant therapy is used to prevent Myocardial Infarction Performed By: #### D IFBF, AMYM3, FLDCC, ALBM3, LDMS3, GLMS3 #### [facility] [address] [place], [place] PT Coag (PPP) [Time] 16.8 s High 9.0-12.0 [facility] Comment on above: Result Comment: . Performed By: #### D IFBF, AMYM3, FLDCC, ALBM3, LDMS3, GLMS3 #### [facility] [address] [place] [address] Thyroid Stim. Hormoneon Thyroid Stim. Hormone 0.803 u[IU]/mL Normal 0.46 5-4.68 0 [facility] Comment on above: Performed By: #### D IFBF, AMYM3, FLDCC, ALBM3, LDMS3, GLMS3 #### [facility] [address] [place] [address] US Paracentesison 05-06-2021 US Paracentesis Patient Name: DANNY MATSON Ultrasound ACCESSION EXAM DATE/TIME PROCEDURE ORDERING PROVIDER [id number] 05/06/2021 12:12 EST US Paracentesis Initial [id number] ELLA PHILLIPS CPT code 28791 Reason For Exam (US Paracentesis Initial) abdominal ascites Report Reasons for examination: Abdominal distention and discomfort. Ascites. Ultrasound was performed of the abdomen, localizing the ascitic fluid. After obtaining informed consent, sterile preparation, draping, and local anesthetic administration, paracentesis was performed under direct ultrasonographic guidance with a 5 [place] Yueh needle/catheter in the 6200 mL abdomen. A total of 6800 ml of yellow ascitic fluid was drained. No laboratory analysis of the ascitic fluid was requested. A sterile dressing was applied at the puncture site. Post paracentesis ultrasound images demonstrate only a small amount of residual fluid. The patient tolerated the procedure, and there were no immediate complications. IMPRESSION: Satisfactory ultrasound guided paracentesis. Report Dictated on Final Dictated: 05/06/2021 12:29 pm Dictating Physician: MD MCCLURE JOE M Signed Date and Time: 05/06/2021 12:30 pm Signed by: MD MCCLURE JOE M Transcribed Date and Time: 05/06/2021 12:29 Normal [facility] Vitamin B12on 05-06-2021 Cobalamin (Vitamin B12) [Mass/Vol] 988 pg/mL High 239-931 [facility] Comment on above: Performed By: #### D IFBF, AMYM3, FLDCC, ALBM3, LDMS3, GLMS3 #### [facility] [address], [place] CULTURE AND STAIN - FLUIDon 05-05-2021 CULTURE AND STAIN - FLUID CULTURE & STAIN - FLUID --> Status: F No growth at 3 days. Normal [facility] Comment on above: Performed By: #### D IFBF, AMYM3, FLDCC, ALBM3, LDMS3, GLMS3 #### [facility] [address] [place], [place] Comp Panel with Mg Reflexon 05-05-2021 Bilirubin [Mass/Vol] 30.7 mg/dL High 0.2-1.3 [facility] Comment on above: Performed By: #### D IFBF, AMYM3, FLDCC, ALBM3, LDMS3, GLMS3 #### [place] [address] [place], [place] Calcium [Mass/Vol] 7.7 mg/dL Low 8.4-10.4 [facility] Comment on above: Performed By: #### D IFBF, AMYM3, FLDCC, ALBM3, LDMS3, GLMS3 #### [facility] [address] [place], [place] Glucose [Mass/Vol] 118 mg/dL High 70-100 [facility] Comment on above: Performed By: #### D IFBF, AMYM3, FLDCC, ALBM3, LDMS3, GLMS3 #### [facility] [address] [place], [place] ALP [Catalytic activity/Vol] 336 U/L High 38-126 [facility] Comment on above: Performed By: #### D IFBF, AMYM3, FLDCC, ALBM3, LDMS3, GLMS3 #### [facility] [address], [place] ALT [Catalytic activity/Vol] 39 U/L Normal 0-49 [facility] Comment on above: Result Comment: The ALT test is performed by an updated assay method. Please note that the reference intervals have been changed and are now sex specific. Performed By: #### D IFBF, AMYM3, FLDCC, ALBM3, LDMS3, GLMS3 #### [place] [address] [place], [place] Anion gap [Moles/Vol] 7 mmol/L Normal 3-13 [facility] Comment on above: Performed By: #### D IFBF, AMYM3, FLDCC, ALBM3, LDMS3, GLMS3 #### [place] [address] [place], [place] AST [Catalytic activity/Vol] 126 U/L High 15-46 [facility] Comment on above: Performed By: #### D IFBF, AMYM3, FLDCC, ALBM3, LDMS3, GLMS3 #### [place] [address] [place] CO2 [Moles/Vol] 28 mmol/L Normal 22-30 [facility] Comment on above: Performed By: #### D IFBF, AMYM3, FLDCC, ALBM3, LDMS3, GLMS3 #### [place] [address] [place] Creatinine [Mass/Vol] 0.74 mg/dL Normal 0.52-1.25 [facility] Comment on above: Performed By: #### D IFBF, AMYM3, FLDCC, ALBM3, LDMS3, GLMS3 #### [place] [address] [place], [place] eGFR OTHER > 90.0 Normal >60 [facility] Comment on above: Result Comment: KDIG O guidelines provide the following GFR categories: Stage GFR(ml/min/1.73 m2) Terms G1 >=90 Normal or high G2 60-89 Mildly decreased* G3a 45-59 Mildly to moderately decreased G3b 30-44 Moderately to severely decreased G4 15-29 Severely decreased G5 <15 Kidney failure *Relative to young adult level. In the absence of evidence of kidney damage, neither GFR category G1 nor G2 fulfill the criteria for CKD. The CKD-EPI equation is validated in individuals 18 years of age and older. Currently the best equation for estimating glomerular filtration rate (GFR) from serum creatinine in children is the Bedside Bardales equation. It is less accurate in patients with extremes of muscle mass, restriction of dietary protein, ingestion of creatine, extra-renal metabolism of creatinine, or treatment with medications that affect renal tubular creatinine secretion. Performed By: #### D IFBF, AMYM3, FLDCC, ALBM3, LDMS3, GLMS3 #### [facility] [address] [place] [address] GFR/1.73 sq M.predicted among blacks MDRD (S/P/Bld) [Vol rate/Area] mL/min/{1.73_m2} Normal >60 [facility] Comment on above: Performed By: #### D IFBF, AMYM3, FLDCC, ALBM3, LDMS3, GLMS3 #### [place] [address] [place], [place] Protein [Mass/Vol] 7.1 g/dL Normal 6.3-8.2 [facility] Comment on above: Performed By: #### D IFBF, AMYM3, FLDCC, ALBM3, LDMS3, GLMS3 #### [place] [address] [place] Urea nitrogen [Mass/Vol] 13 mg/dL Normal 7-17 [facility] Comment on above: Performed By: #### D IFBF, AMYM3, FLDCC, ALBM3, LDMS3, GLMS3 #### [place] [address] [place] [address] Potassium [Moles/Vol] 3.3 mmol/L Low 3.5-5.1 [facility] Comment on above: Performed By: #### D IFBF, AMYM3, FLDCC, ALBM3, LDMS3, GLMS3 #### [place] [address] [place] [address] Albumin [Mass/Vol] 2.6 g/dL Low 3.5-5.0 [facility] Comment on above: Performed By: #### D IFBF, AMYM3, FLDCC, ALBM3, LDMS3, GLMS3 #### [place] [address] [place] [address] Chloride [Moles/Vol] 96 mmol/L Low 98-107 [facility] Comment on above: Performed By: #### D IFBF, AMYM3, FLDCC, ALBM3, LDMS3, GLMS3 #### [place] [address] [place] Sodium [Moles/Vol] 131 mmol/L Low 135-145 [facility] Comment on above: Performed By: #### D IFBF, AMYM3, FLDCC, ALBM3, LDMS3, GLMS3 #### [place] [address] [place], [place] Hemogram w/ Autodiffon 05-05 Abs Baso Cnt 0.0 10*3/uL Normal 0.0-0.2 [facility] Comment on above: Performed By: #### D IFBF, AMYM3, FLDCC, ALBM3, LDMS3, GLMS3 #### [address] Abs Neutrophile Cnt 8.5 10*3/uL High 1.8-7.0 [facility] Comment on above: Performed By: #### D IFBF, AMYM3, FLDCC, ALBM3, LDMS3, GLMS3 #### [place] [address] [place], [place] Basophils/100 WBC (Bld) 0.3 % Normal 0.0-2.0 [facility] Comment on above: Performed By: #### D IFBF, AMYM3, FLDCC, ALBM3, LDMS3, GLMS3 #### [place] [address] [place], [place] Eosinophils (Bld) [#/Vol] 0.0 10*3/uL Normal 0.0-0.5 [facility] Comment on above: Performed By: #### D IFBF, AMYM3, FLDCC, ALBM3, LDMS3, GLMS3 #### [address] Eosinophils/100 WBC (Bld) 0.1 % Low 1.0-6.0 [facility] Comment on above: Performed By: #### D IFBF, AMYM3, FLDCC, ALBM3, LDMS3, GLMS3 #### [place] [address] [place], [place] Erythrocyte distribution width (RBC) [Ratio] 15.0 % High 11.5-14.5 [facility] Comment on above: Performed By: #### D IFBF, AMYM3, FLDCC, ALBM3, LDMS3, GLMS3 #### [place] [address] [place], [place] Granulocytes/100 WBC (Bld) 86.1 % High 40.0-80.0 [facility] Comment on above: Performed By: #### D IFBF, AMYM3, FLDCC, ALBM3, LDMS3, GLMS3 #### [place] [address] [place], [place] Hematocrit (Bld) [Volume fraction] 29.6 % Low 40.0-52.0 [facility] Comment on above: Performed By: #### D IFBF, AMYM3, FLDCC, ALBM3, LDMS3, GLMS3 #### [place] [address] [place] Hemoglobin (Bld) [Mass/Vol] 10.4 g/dL Low 13.0-18.0 [facility] Comment on above: Performed By: #### D IFBF, AMYM3, FLDCC, ALBM3, LDMS3, GLMS3 #### [place] [address] [place], [place] Lymphocytes (Bld) [#/Vol] 0.3 10*3/uL Low 1.0-4.3 [facility] Comment on above: Performed By: #### D IFBF, AMYM3, FLDCC, ALBM3, LDMS3, GLMS3 #### [address] Lymphocytes/100 WBC (Bld) 3.2 % Low 20.0-40.0 [facility] Comment on above: Performed By: #### D IFBF, AMYM3, FLDCC, ALBM3, LDMS3, GLMS3 #### [place] [address] [place], [place] MCH (RBC) [Entitic mass] 40.2 pg High 26.0-34.0 [facility] Comment on above: Performed By: #### D IFBF, AMYM3, FLDCC, ALBM3, LDMS3, GLMS3 #### [facility] [address] MCHC 35.2 % Normal 32.0-36.0 [facility] Comment on above: Performed By: #### D IFBF, AMYM3, FLDCC, ALBM3, LDMS3, GLMS3 #### [facility] [address] [place], [place] MCV (RBC) [Entitic vol] 114.2 fL High 80.0-98.0 [facility] Comment on above: Performed By: #### D IFBF, AMYM3, FLDCC, ALBM3, LDMS3, GLMS3 #### [place] [address] [place], [place] Monocytes (Bld) [#/Vol] 1.0 10*3/uL High 0.0-0.8 [facility] Comment on above: Performed By: #### D IFBF, AMYM3, FLDCC, ALBM3, LDMS3, GLMS3 #### [facility] [address] [place], [place] Monocytes/100 WBC (Bld) 10.3 % High 2.0-10.0 [facility] Comment on above: Performed By: #### D IFBF, AMYM3, FLDCC, ALBM3, LDMS3, GLMS3 #### [place] [address] [place], [place] Platelet mean volume (Bld) [Entitic vol] 8.7 fL Normal 7.4-10.4 [facility] Comment on above: Performed By: #### D IFBF, AMYM3, FLDCC, ALBM3, LDMS3, GLMS3 #### [facility] [address], [place] Platelets (Bld) [#/Vol] 70 10*3/uL Low 140-440 [facility] Comment on above: Performed By: #### D IFBF, AMYM3, FLDCC, ALBM3, LDMS3, GLMS3 #### [facility] [address] [place], [place] RBC (Bld) [#/Vol] 2.59 10*6/uL Low 4.40-5.90 [facility] Comment on above: Performed By: #### D IFBF, AMYM3, FLDCC, ALBM3, LDMS3, GLMS3 #### [place] [address] [place] WBC (Bld) [#/Vol] 9.9 10*3/uL Normal 3.6-10.7 [facility] Comment on above: Performed By: #### D IFBF, AMYM3, FLDCC, ALBM3, LDMS3, GLMS3 #### [place] [address] [place] Magnesiumon 05-05-2021 Magnesium [Mass/Vol] 2.1 mg/dL Normal 1.6-2.3 [facility] Comment on above: Performed By: #### D IFBF, AMYM3, FLDCC, ALBM3, LDMS3, GLMS3 #### [place] [address] [place] Prothrombin Timeon INR 1.7 High 0.9-1.1 [facility] Comment on above: Result Comment: Herber mmended Anticoagulant Therapy: SEE BELOW ----- INR of 2.0 - 3.0 : - Prophylaxis of Venous Thrombosis (high-risk surgery) - Treatment of Venous Thrombosis - Treatment of Pulmonary Embolism (Includes tissue heart valves, Acute Myocardial Infarction to prevent systemic embolism, Valvular Heart Disease, and Atrial Fibrillation) ----- INR of 2.5 - 3.5 : - Mechanical Prosthetic Valves (high risk) - If oral anticoagulant therapy is used to prevent Myocardial Infarction Performed By: #### D IFBF, AMYM3, FLDCC, ALBM3, LDMS3, GLMS3 #### [place] [address] [place], [place] PT Coag (PPP) [Time] 17.7 s High 9.0-12.0 [facility] Comment on above: Result Comment: . Performed By: #### D IFBF, AMYM3, FLDCC, ALBM3, LDMS3, GLMS3 #### [facility] [address] [place], [place] CULTURE AND STAIN - FLUIDon 05-04-2021 CULTURE AND STAIN - FLUID CULTURE & STAIN - FLUID --> Status: F No growth at 3 days. Normal [facility] Comment on above: Performed By: #### C XFLD, S/GRM #### [facility] [address] [place], [place] Comp Panel with Mg Reflexon 05-04-2021 Bilirubin [Mass/Vol] 30.6 mg/dL High 0.2-1.3 [facility] Comment on above: Performed By: #### D IFBF, AMYM3, FLDCC, ALBM3, LDMS3, GLMS3 #### [place] [address] [place] ALP [Catalytic activity/Vol] 331 U/L High 38-126 [facility] Comment on above: Performed By: #### D IFBF, AMYM3, FLDCC, ALBM3, LDMS3, GLMS3 #### [facility] [address] [place], [place] ALT [Catalytic activity/Vol] 39 U/L Normal 0-49 [facility] Comment on above: Result Comment: The ALT test is performed by an updated assay method. Please note that the reference intervals have been changed and are now sex specific. Performed By: #### D IFBF, AMYM3, FLDCC, ALBM3, LDMS3, GLMS3 #### [facility] [address] [place], [place] AST [Catalytic activity/Vol] 136 U/L High 15-46 [facility] Comment on above: Performed By: #### D IFBF, AMYM3, FLDCC, ALBM3, LDMS3, GLMS3 #### [facility] [address] [place], [place] Calcium [Mass/Vol] 7.9 mg/dL Low 8.4-10.4 [facility] Comment on above: Performed By: #### D IFBF, AMYM3, FLDCC, ALBM3, LDMS3, GLMS3 #### [place] [address] [place] Glucose [Mass/Vol] 156 mg/dL High 70-100 [facility] Comment on above: Performed By: #### D IFBF, AMYM3, FLDCC, ALBM3, LDMS3, GLMS3 #### [place] [address] [place] Protein [Mass/Vol] 7.1 g/dL Normal 6.3-8.2 [facility] Comment on above: Performed By: #### D IFBF, AMYM3, FLDCC, ALBM3, LDMS3, GLMS3 #### [place] [address] [place] Urea nitrogen [Mass/Vol] 10 mg/dL Normal 7-17 [facility] Comment on above: Performed By: #### D IFBF, AMYM3, FLDCC, ALBM3, LDMS3, GLMS3 #### [place] [address] [place] Anion gap [Moles/Vol] 9 mmol/L Normal 3-13 [facility] Comment on above: Performed By: #### D IFBF, AMYM3, FLDCC, ALBM3, LDMS3, GLMS3 #### [place] [address] [place] CO2 [Moles/Vol] 29 mmol/L Normal 22-30 [facility] Comment on above: Performed By: #### D IFBF, AMYM3, FLDCC, ALBM3, LDMS3, GLMS3 #### [place] [address] [place] Creatinine [Mass/Vol] 0.71 mg/dL Normal 0.52-1.25 [facility] Comment on above: Performed By: #### D IFBF, AMYM3, FLDCC, ALBM3, LDMS3, GLMS3 #### [address] [place] [address] eGFR OTHER > 90.0 Normal >60 [facility] Comment on above: Result Comment: KDIG O guidelines provide the following GFR categories: Stage GFR(ml/min/1.73 m2) Terms G1 >=90 Normal or high G2 60-89 Mildly decreased* G3a 45-59 Mildly to moderately decreased G3b 30-44 Moderately to severely decreased G4 15-29 Severely decreased G5 <15 Kidney failure *Relative to young adult level. In the absence of evidence of kidney damage, neither GFR category G1 nor G2 fulfill the criteria for CKD. The CKD-EPI equation is validated in individuals 18 years of age and older. Currently the best equation for estimating glomerular filtration rate (GFR) from serum creatinine in children is the Bedside Bardales equation. It is less accurate in patients with extremes of muscle mass, restriction of dietary protein, ingestion of creatine, extra-renal metabolism of creatinine, or treatment with medications that affect renal tubular creatinine secretion. Performed By: #### D IFBF, AMYM3, FLDCC, ALBM3, LDMS3, GLMS3 #### [place] [address] [place], [place] GFR/1.73 sq M.predicted among blacks MDRD (S/P/Bld) [Vol rate/Area] mL/min/{1.73_m2} Normal >60 [facility] Comment on above: Performed By: #### D IFBF, AMYM3, FLDCC, ALBM3, LDMS3, GLMS3 #### [place] [address] [place] Albumin [Mass/Vol] 2.6 g/dL Low 3.5-5.0 [facility] Comment on above: Performed By: #### D IFBF, AMYM3, FLDCC, ALBM3, LDMS3, GLMS3 #### [place] [address] [place], [place] Chloride [Moles/Vol] 95 mmol/L Low 98-107 [facility] Comment on above: Performed By: #### D IFBF, AMYM3, FLDCC, ALBM3, LDMS3, GLMS3 #### [place] [address] [place], [place] Potassium [Moles/Vol] 3.2 mmol/L Low 3.5-5.1 [facility] Comment on above: Performed By: #### D IFBF, AMYM3, FLDCC, ALBM3, LDMS3, GLMS3 #### [place] [address] [place] Sodium [Moles/Vol] 133 mmol/L Low 135-145 [facility] Comment on above: Performed By: #### D IFBF, AMYM3, FLDCC, ALBM3, LDMS3, GLMS3 #### [address] Hemogram w/ Autodiffon 05-04 Erythrocyte distribution width (RBC) [Ratio] 14.7 % High 11.5-14.5 [facility] Comment on above: Performed By: #### D IFBF, AMYM3, FLDCC, ALBM3, LDMS3, GLMS3 #### [address] Hematocrit (Bld) [Volume fraction] 29.7 % Low 40.0-52.0 [facility] Comment on above: Performed By: #### D IFBF, AMYM3, FLDCC, ALBM3, LDMS3, GLMS3 #### [address] Hemoglobin (Bld) [Mass/Vol] 10.4 g/dL Low 13.0-18.0 [facility] Comment on above: Performed By: #### D IFBF, AMYM3, FLDCC, ALBM3, LDMS3, GLMS3 #### [address] MCH (RBC) [Entitic mass] 40.3 pg High 26.0-34.0 [facility] Comment on above: Performed By: #### D IFBF, AMYM3, FLDCC, ALBM3, LDMS3, GLMS3 #### [address] MCHC 35.0 % Normal 32.0-36.0 [facility] Comment on above: Performed By: #### D IFBF, AMYM3, FLDCC, ALBM3, LDMS3, GLMS3 #### [address] [place] MCV (RBC) [Entitic vol] 115.2 fL High 80.0-98.0 [facility] Comment on above: Performed By: #### D IFBF, AMYM3, FLDCC, ALBM3, LDMS3, GLMS3 #### [place] [address] [place], [place] Platelet mean volume (Bld) [Entitic vol] 9.7 fL Normal 7.4-10.4 [facility] Comment on above: Performed By: #### D IFBF, AMYM3, FLDCC, ALBM3, LDMS3, GLMS3 #### [place] [place] Platelets (Bld) [#/Vol] 63 10*3/uL Low 140-440 [facility] Comment on above: Performed By: #### D IFBF, AMYM3, FLDCC, ALBM3, LDMS3, GLMS3 #### [place] [address] [place], [place] RBC (Bld) [#/Vol] 2.58 10*6/uL Low 4.40-5.90 [facility] Comment on above: Performed By: #### D IFBF, AMYM3, FLDCC, ALBM3, LDMS3, GLMS3 #### [place] [address] [place] WBC (Bld) [#/Vol] 8.1 10*3/uL Normal 3.6-10.7 [facility] Comment on above: Performed By: #### D IFBF, AMYM3, FLDCC, ALBM3, LDMS3, GLMS3 #### [address] [place] Magnesiumon 05-04-2021 Magnesium [Mass/Vol] 2.1 mg/dL Normal 1.6-2.3 [facility] Comment on above: Performed By: #### D IFBF, AMYM3, FLDCC, ALBM3, LDMS3, GLMS3 #### [address] [place] Manual Diffon 05-04-2021 Abs Lymph Cnt 0.1 10*3/uL Low 1.1-4.5 [facility] Comment on above: Performed By: #### D IFBF, AMYM3, FLDCC, ALBM3, LDMS3, GLMS3 #### [address] Abs Monocyte Cnt 0.3 10*3/uL Normal 0.2-1.1 [facility] Comment on above: Performed By: #### D IFBF, AMYM3, FLDCC, ALBM3, LDMS3, GLMS3 #### [address] Abs Neutrophile Cnt 7.7 10*3/uL Normal 2.2-8.2 [facility] Comment on above: Performed By: #### D IFBF, AMYM3, FLDCC, ALBM3, LDMS3, GLMS3 #### [address] Bands 2 % Normal 0-3 [facility] Comment on above: Performed By: #### D IFBF, AMYM3, FLDCC, ALBM3, LDMS3, GLMS3 #### [address] Lymphocytes 1 % Low 20-40 [facility] Comment on above: Performed By: #### D IFBF, AMYM3, FLDCC, ALBM3, LDMS3, GLMS3 #### [address] Monocytes 4 % Normal 2-10 [facility] Comment on above: Performed By: #### D IFBF, AMYM3, FLDCC, ALBM3, LDMS3, GLMS3 #### [address] RBC Morphology See Prev Normal [facility] Comment on above: Performed By: #### D IFBF, AMYM3, FLDCC, ALBM3, LDMS3, GLMS3 #### [address] Seg Neutrophils 93 % High 40-80 [facility] Comment on above: Performed By: #### D IFBF, AMYM3, FLDCC, ALBM3, LDMS3, GLMS3 #### [address] [place], [place] Abs Baso Cnt 0.0 10*3/uL Normal 0.0-0.2 [facility] Comment on above: Performed By: #### D IFBF, AMYM3, FLDCC, ALBM3, LDMS3, GLMS3 #### [address] [place] [address] [place], [place] Abs Eosin Cnt 0.0 10*3/uL Normal 0.0-0.5 [facility] Comment on above: Performed By: #### D IFBF, AMYM3, FLDCC, ALBM3, LDMS3, GLMS3 #### [address] Basophils 0 % Normal 0-2 [facility] Comment on above: Performed By: #### D IFBF, AMYM3, FLDCC, ALBM3, LDMS3, GLMS3 #### [address] Cells counted 100 Normal [facility] [facility] Comment on above: Performed By: #### D IFBF, AMYM3, FLDCC, ALBM3, LDMS3, GLMS3 #### [address] [address] [place], [place] Eosinophils 0 % Low 1-6 [facility] Comment on above: Performed By: #### D IFBF, AMYM3, FLDCC, ALBM3, LDMS3, GLMS3 #### [address] Prothrombin Timeon 2 INR 1.8 High 0.9-1.1 [facility] Comment on above: Result Comment: Herber mmended Anticoagulant Therapy: SEE BELOW ----- INR of 2.0 - 3.0 : - Prophylaxis of Venous Thrombosis (high-risk surgery) - Treatment of Venous Thrombosis - Treatment of Pulmonary Embolism (Includes tissue heart valves, Acute Myocardial Infarction to prevent systemic embolism, Valvular Heart Disease, and Atrial Fibrillation) ----- INR of 2.5 - 3.5 : - Mechanical Prosthetic Valves (high risk) - If oral anticoagulant therapy is used to prevent Myocardial Infarction Performed By: #### D IFBF, AMYM3, FLDCC, ALBM3, LDMS3, GLMS3 #### [address] [address] [address] [place], [place] PT Coag (PPP) [Time] 18.3 s High 9.0-12.0 [facility] Comment on above: Result Comment: . Performed By: #### D IFBF, AMYM3, FLDCC, ALBM3, LDMS3, GLMS3 #### [address] [address] [address] [place], [place] Ammoniaon 05-03-2021 Ammonia (P) [Moles/Vol] 55 umol/L High 9-30 [facility] Comment on above: Performed By: #### D IFBF, AMYM3, FLDCC, ALBM3, LDMS3, GLMS3 #### [address] [address] [address] [place], [place] Comp Panel with Mg Reflexon 05-03-2021 Bilirubin [Mass/Vol] 33.4 mg/dL High 0.2-1.3 [facility] Comment on above: Performed By: #### D IFBF, AMYM3, FLDCC, ALBM3, LDMS3, GLMS3 #### [address] [address] [address] [place], [place] ALT [Catalytic activity/Vol] 41 U/L Normal 0-49 [facility] Comment on above: Result Comment: The ALT test is performed by an updated assay method. Please note that the reference intervals have been changed and are now sex specific. Performed By: #### D IFBF, AMYM3, FLDCC, ALBM3, LDMS3, GLMS3 #### [address] [address] [address] [place], [place] Calcium [Mass/Vol] 7.6 mg/dL Low 8.4-10.4 [facility] Comment on above: Performed By: #### D IFBF, AMYM3, FLDCC, ALBM3, LDMS3, GLMS3 #### [facility] [address] [place], [place] Glucose [Mass/Vol] 87 mg/dL Normal 70-100 [facility] Comment on above: Performed By: #### D IFBF, AMYM3, FLDCC, ALBM3, LDMS3, GLMS3 #### [facility] [address] [place], [place] ALP [Catalytic activity/Vol] 307 U/L High 38-126 [facility] Comment on above: Performed By: #### D IFBF, AMYM3, FLDCC, ALBM3, LDMS3, GLMS3 #### [facility] [address] [place], [place] Anion gap [Moles/Vol] 8 mmol/L Normal 3-13 [facility] Comment on above: Performed By: #### D IFBF, AMYM3, FLDCC, ALBM3, LDMS3, GLMS3 #### [address] [address] [address] [place], [place] AST [Catalytic activity/Vol] 169 U/L High 15-46 [facility] Comment on above: Performed By: #### D IFBF, AMYM3, FLDCC, ALBM3, LDMS3, GLMS3 #### [facility] [address] [place], [place] CO2 [Moles/Vol] 25 mmol/L Normal 22-30 [facility] Comment on above: Performed By: #### D IFBF, AMYM3, FLDCC, ALBM3, LDMS3, GLMS3 #### [facility] [address] [place], [place] Creatinine [Mass/Vol] 0.69 mg/dL Normal 0.52-1.25 [facility] Comment on above: Performed By: #### D IFBF, AMYM3, FLDCC, ALBM3, LDMS3, GLMS3 #### [facility] [address] [place], [place] eGFR OTHER > 90.0 Normal >60 [facility] Comment on above: Result Comment: KDIG O guidelines provide the following GFR categories: Stage GFR(ml/min/1.73 m2) Terms G1 >=90 Normal or high G2 60-89 Mildly decreased* G3a 45-59 Mildly to moderately decreased G3b 30-44 Moderately to severely decreased G4 15-29 Severely decreased G5 <15 Kidney failure *Relative to young adult level. In the absence of evidence of kidney damage, neither GFR category G1 nor G2 fulfill the criteria for CKD. The CKD-EPI equation is validated in individuals 18 years of age and older. Currently the best equation for estimating glomerular filtration rate (GFR) from serum creatinine in children is the Bedside Bardales equation. It is less accurate in patients with extremes of muscle mass, restriction of dietary protein, ingestion of creatine, extra-renal metabolism of creatinine, or treatment with medications that affect renal tubular creatinine secretion. Performed By: #### D IFBF, AMYM3, FLDCC, ALBM3, LDMS3, GLMS3 #### [address] GFR/1.73 sq M.predicted among blacks MDRD (S/P/Bld) [Vol rate/Area] mL/min/{1.73_m2} Normal >60 [facility] Comment on above: Performed By: #### D IFBF, AMYM3, FLDCC, ALBM3, LDMS3, GLMS3 #### [address] Protein [Mass/Vol] 7.0 g/dL Normal 6.3-8.2 [facility] Comment on above: Performed By: #### D IFBF, AMYM3, FLDCC, ALBM3, LDMS3, GLMS3 #### [address] Urea nitrogen [Mass/Vol] 7 mg/dL Normal 7-17 [facility] Comment on above: Performed By: #### D IFBF, AMYM3, FLDCC, ALBM3, LDMS3, GLMS3 #### [address] Potassium [Moles/Vol] 3.1 mmol/L Low 3.5-5.1 [facility] Comment on above: Performed By: #### D IFBF, AMYM3, FLDCC, ALBM3, LDMS3, GLMS3 #### [address] [address] [address] [place], [place] Sodium [Moles/Vol] 127 mmol/L Low 135-145 [facility] Comment on above: Performed By: #### D IFBF, AMYM3, FLDCC, ALBM3, LDMS3, GLMS3 #### [address] [address] [address] [place], [place] Albumin [Mass/Vol] 2.5 g/dL Low 3.5-5.0 [facility] Comment on above: Performed By: #### D IFBF, AMYM3, FLDCC, ALBM3, LDMS3, GLMS3 #### [address] [address] [place], [place] Chloride [Moles/Vol] 94 mmol/L Low 98-107 [facility] Comment on above: Performed By: #### D IFBF, AMYM3, FLDCC, ALBM3, LDMS3, GLMS3 #### [address] [address] [address] [place], [place] Hemogramon 05-03-2021 Erythrocyte distribution width (RBC) [Ratio] 14.4 % Normal 11.5-14.5 [facility] Comment on above: Performed By: #### D IFBF, AMYM3, FLDCC, ALBM3, LDMS3, GLMS3 #### [address] [address] [place], [place] Hematocrit (Bld) [Volume fraction] 28.0 % Low 40.0-52.0 [facility] Comment on above: Performed By: #### D IFBF, AMYM3, FLDCC, ALBM3, LDMS3, GLMS3 #### [address] [address] [address] [place], [place] Hemoglobin (Bld) [Mass/Vol] 9.7 g/dL Low 13.0-18.0 [facility] Comment on above: Performed By: #### D IFBF, AMYM3, FLDCC, ALBM3, LDMS3, GLMS3 #### [address] [address] [address] [place], [place] MCH (RBC) [Entitic mass] 39.4 pg High 26.0-34.0 [facility] Comment on above: Performed By: #### D IFBF, AMYM3, FLDCC, ALBM3, LDMS3, GLMS3 #### [facility] [address] [place], [place] MCHC 34.6 % Normal 32.0-36.0 [facility] Comment on above: Performed By: #### D IFBF, AMYM3, FLDCC, ALBM3, LDMS3, GLMS3 #### [facility] [address] [place], [place] MCV (RBC) [Entitic vol] 114.1 fL High 80.0-98.0 [facility] Comment on above: Performed By: #### D IFBF, AMYM3, FLDCC, ALBM3, LDMS3, GLMS3 #### [address] [address] [address] [place], [place] Platelet mean volume (Bld) [Entitic vol] 8.3 fL Normal 7.4-10.4 [facility] Comment on above: Performed By: #### D IFBF, AMYM3, FLDCC, ALBM3, LDMS3, GLMS3 #### [facility] [address] [place], [place] Platelets (Bld) [#/Vol] 44 10*3/uL Low 140-440 [facility] Comment on above: Performed By: #### D IFBF, AMYM3, FLDCC, ALBM3, LDMS3, GLMS3 #### [address] [address] [address] [place], [place] RBC (Bld) [#/Vol] 2.45 10*6/uL Low 4.40-5.90 [facility] Comment on above: Performed By: #### D IFBF, AMYM3, FLDCC, ALBM3, LDMS3, GLMS3 #### [facility] [address] [place], [place] WBC (Bld) [#/Vol] 6.9 10*3/uL Normal 3.6-10.7 [facility] Comment on above: Performed By: #### D IFBF, AMYM3, FLDCC, ALBM3, LDMS3, GLMS3 #### [address] [address] [address] [place], [place] Lactic Acidon 05-03-2021 Lactate [Moles/Vol] 2.0 mmol/L Normal 0.7-2.0 [facility] Comment on above: Performed By: #### D IFBF, AMYM3, FLDCC, ALBM3, LDMS3, GLMS3 #### [address] [address] [place], [place] Lactate [Moles/Vol] 1.5 mmol/L Normal 0.7-2.0 [facility] Comment on above: Performed By: #### D IFBF, AMYM3, FLDCC, ALBM3, LDMS3, GLMS3 #### [address] Magnesiumon 05-03-2021 Magnesium [Mass/Vol] 1.7 mg/dL Normal 1.6-2.3 [facility] Comment on above: Performed By: #### D IFBF, AMYM3, FLDCC, ALBM3, LDMS3, GLMS3 #### [address] Prothrombin Timeon INR 1.8 High 0.9-1.1 [facility] Comment on above: Result Comment: [facility]ber mmended Anticoagulant Therapy: SEE BELOW ----- INR of 2.0 - 3.0 : - Prophylaxis of Venous Thrombosis (high-risk surgery) - Treatment of Venous Thrombosis - Treatment of Pulmonary Embolism (Includes tissue heart valves, Acute Myocardial Infarction to prevent systemic embolism, Valvular Heart Disease, and Atrial Fibrillation) ----- INR of 2.5 - 3.5 : - Mechanical Prosthetic Valves (high risk) - If oral anticoagulant therapy is used to prevent Myocardial Infarction Performed By: #### D IFBF, AMYM3, FLDCC, ALBM3, LDMS3, GLMS3 #### [address] [address] [place], [place] PT Coag (PPP) [Time] 18.2 s High 9.0-12.0 [facility] Comment on above: Result Comment: . Performed By: #### D IFBF, AMYM3, FLDCC, ALBM3, LDMS3, GLMS3 #### [facility] [address] [place], [place] Vancomycin Troughon 05-03-19 Vancomycin Trough 5.8 ug/mL Low 15.0-20.0 [facility] Comment on above: Result Comment: . Performed By: #### D IFBF, AMYM3, FLDCC, ALBM3, LDMS3, GLMS3 #### [facility] [address] [place], [place] Acute Hepatitis Panelon Hep C Antibody Not detected Normal Not Detected [facility] Comment on above: Result Comment: Patients with DETECTED Hepatitis C Ab results should have a new specimen submitted for supplemental testing with a Hepatitis C Quantitative RNA assay (viral load), if clinically indicated. Performed By: #### D IFBF, AMYM3, FLDCC, ALBM3, LDMS3, GLMS3 #### [address] [address] [place], [place] Hep A Virus Ab,IgM Not detected Normal Not Detected [facility] Comment on above: Performed By: #### D IFBF, AMYM3, FLDCC, ALBM3, LDMS3, GLMS3 #### [facility] [address] [place], [place] Hep B Core IgM Not detected Normal Not Detected [facility] Comment on above: Performed By: #### D IFBF, AMYM3, FLDCC, ALBM3, LDMS3, GLMS3 #### [facility] [address] [place], [place] Hep B Surface Ag Not detected Normal Not Detected [facility] Comment on above: Performed By: #### D IFBF, AMYM3, FLDCC, ALBM3, LDMS3, GLMS3 #### [address] [address] [place] [address] Albumin, Body Fluidon 2021 Albumin, Misc < 1.0 Normal No Range [facility] Comment on above: Performed By: #### D IFBF, AMYM3, FLDCC, ALBM3, LDMS3, GLMS3 #### [facility] [address] [place], [place] Amylase, Body Fluidon 2021 Amylase, Misc < 30 Normal No Range [facility] Comment on above: Performed By: #### D IFBF, AMYM3, FLDCC, ALBM3, LDMS3, GLMS3 #### [address] [address] [place], [place] Cell Count,Body Fluidon RBC Count Body Fld 143 {RBC}/uL Normal [facility] Comment on above: Performed By: #### D IFBF, AMYM3, FLDCC, ALBM3, LDMS3, GLMS3 #### [address] [address] [place], [place] Nucleated Cells 882 {cells}/uL Normal [facility] Comment on above: Performed By: #### D IFBF, AMYM3, FLDCC, ALBM3, LDMS3, GLMS3 #### [address] [address] [place], [place] Fluid Type Paracentesis Normal [facility] Comment on above: Performed By: #### D IFBF, AMYM3, FLDCC, ALBM3, LDMS3, GLMS3 #### [address] [address] [place], [place] Comp Metabolic Panelon 05-02 Calcium [Mass/Vol] 7.5 mg/dL Low 8.4-10.4 [facility] Comment on above: Order Comment: gross ly icteric Performed By: #### D IFBF, AMYM3, FLDCC, ALBM3, LDMS3, GLMS3 #### [address] [address] [place] ALP [Catalytic activity/Vol] 312 U/L High 38-126 [facility] Comment on above: Order Comment: gross ly icteric Performed By: #### D IFBF, AMYM3, FLDCC, ALBM3, LDMS3, GLMS3 #### [address] [address] [place], [place] ALT [Catalytic activity/Vol] 52 U/L High 0-49 [facility] Comment on above: Order Comment: gross ly icteric Result Comment: The ALT test is performed by an updated assay method. Please note that the reference intervals have been changed and are now sex specific. Performed By: #### D IFBF, AMYM3, FLDCC, ALBM3, LDMS3, GLMS3 #### [address] [address] [place], [place] Anion gap [Moles/Vol] 9 mmol/L Normal 3-13 [facility] Comment on above: Order Comment: gross ly icteric Performed By: #### D IFBF, AMYM3, FLDCC, ALBM3, LDMS3, GLMS3 #### [address] [address] [place], [place] AST [Catalytic activity/Vol] 196 U/L High 15-46 [facility] Comment on above: Order Comment: gross ly icteric Performed By: #### D IFBF, AMYM3, FLDCC, ALBM3, LDMS3, GLMS3 #### [address] [address] [place], [place] Bilirubin [Mass/Vol] 23.5 mg/dL High 0.2-1.3 [facility] Comment on above: Order Comment: gross ly icteric Performed By: #### D IFBF, AMYM3, FLDCC, ALBM3, LDMS3, GLMS3 #### [address] [place] CO2 [Moles/Vol] 26 mmol/L Normal 22-30 [facility] Comment on above: Order Comment: gross ly icteric Performed By: #### D IFBF, AMYM3, FLDCC, ALBM3, LDMS3, GLMS3 #### [address] [address] [place], [place] Glucose [Mass/Vol] 123 mg/dL High 70-100 [facility] Comment on above: Order Comment: gross ly icteric Performed By: #### D IFBF, AMYM3, FLDCC, ALBM3, LDMS3, GLMS3 #### [address] [address] [place] Protein [Mass/Vol] 7.1 g/dL Normal 6.3-8.2 [facility] Comment on above: Order Comment: gross ly icteric Performed By: #### D IFBF, AMYM3, FLDCC, ALBM3, LDMS3, GLMS3 #### [address] Urea nitrogen [Mass/Vol] 9 mg/dL Normal 7-17 [facility] Comment on above: Order Comment: gross ly icteric Performed By: #### D IFBF, AMYM3, FLDCC, ALBM3, LDMS3, GLMS3 #### [address] Creatinine [Mass/Vol] 0.64 mg/dL Normal 0.52-1.25 [facility] Comment on above: Order Comment: gross ly icteric Performed By: #### D IFBF, AMYM3, FLDCC, ALBM3, LDMS3, GLMS3 #### [address] eGFR OTHER > 90.0 Normal >60 [facility] Comment on above: Order Comment: gross ly icteric Result Comment: KDIG O guidelines provide the following GFR categories: Stage GFR(ml/min/1.73 m2) Terms G1 >=90 Normal or high G2 60-89 Mildly decreased* G3a 45-59 Mildly to moderately decreased G3b 30-44 Moderately to severely decreased G4 15-29 Severely decreased G5 <15 Kidney failure *Relative to young adult level. In the absence of evidence of kidney damage, neither GFR category G1 nor G2 fulfill the criteria for CKD. The CKD-EPI equation is validated in individuals 18 years of age and older. Currently the best equation for estimating glomerular filtration rate (GFR) from serum creatinine in children is the Bedside Bardales equation. It is less accurate in patients with extremes of muscle mass, restriction of dietary protein, ingestion of creatine, extra-renal metabolism of creatinine, or treatment with medications that affect renal tubular creatinine secretion. Performed By: #### D IFBF, AMYM3, FLDCC, ALBM3, LDMS3, GLMS3 #### [address] GFR/1.73 sq M.predicted among blacks MDRD (S/P/Bld) [Vol rate/Area] mL/min/{1.73_m2} Normal >60 [facility] Comment on above: Order Comment: gross ly icteric Performed By: #### D IFBF, AMYM3, FLDCC, ALBM3, LDMS3, GLMS3 #### [facility] [address] [place], [place] Albumin [Mass/Vol] 2.4 g/dL Low 3.5-5.0 [facility] Comment on above: Order Comment: gross ly icteric Performed By: #### D IFBF, AMYM3, FLDCC, ALBM3, LDMS3, GLMS3 #### [address] [address] [place], [place] Potassium [Moles/Vol] 3.5 mmol/L Normal 3.5-5.1 [facility] Comment on above: Order Comment: gross ly icteric Performed By: #### D IFBF, AMYM3, FLDCC, ALBM3, LDMS3, GLMS3 #### [address] [place], [place] Sodium [Moles/Vol] 130 mmol/L Low 135-145 [facility] Comment on above: Order Comment: gross ly icteric Performed By: #### D IFBF, AMYM3, FLDCC, ALBM3, LDMS3, GLMS3 #### [address] [address] [place] Chloride [Moles/Vol] 95 mmol/L Low 98-107 [facility] Comment on above: Order Comment: gross ly icteric Performed By: #### D IFBF, AMYM3, FLDCC, ALBM3, LDMS3, GLMS3 #### [address] [address] [place], [place] Differential,Body Fluidson 0 05-02-2021 Cells Counted for Diff 200 Normal [facility] Comment on above: Performed By: #### D IFBF, AMYM3, FLDCC, ALBM3, LDMS3, GLMS3 #### [address] [place] [address] Lymphocytes/100 WBC (Bld) 3 % Normal [facility] Comment on above: Performed By: #### D IFBF, AMYM3, FLDCC, ALBM3, LDMS3, GLMS3 #### [facility] [address] [place] [address] Macrophages 18 % Normal [facility] Comment on above: Performed By: #### D IFBF, AMYM3, FLDCC, ALBM3, LDMS3, GLMS3 #### [facility] [address] [place] [address] Monocytes/100 WBC (Bld) 8 % Normal [facility] Comment on above: Performed By: #### D IFBF, AMYM3, FLDCC, ALBM3, LDMS3, GLMS3 #### [facility] [address] [place] [address] Neutrophils/100 WBC (Bld) 68 % Normal [facility] Comment on above: Performed By: #### D IFBF, AMYM3, FLDCC, ALBM3, LDMS3, GLMS3 #### [facility] [address] [place] [address] Lymphocytes/100 WBC (Bld) 5 % Normal [facility] Comment on above: Performed By: #### D IFBF, AMYM3, FLDCC, ALBM3, LDMS3, GLMS3 #### [facility] [address] [place] [address] Monocytes/100 WBC (Bld) 2 % Normal [facility] Comment on above: Performed By: #### D IFBF, AMYM3, FLDCC, ALBM3, LDMS3, GLMS3 #### [facility] [address] [place] [address] Neutrophils/100 WBC (Bld) 93 % Normal [facility] Comment on above: Performed By: #### D IFBF, AMYM3, FLDCC, ALBM3, LDMS3, GLMS3 #### [facility] [address] [place] [address] Hemogram w/ Autodiffon 05-02 Erythrocyte distribution width (RBC) [Ratio] 14.3 % Normal 11.5-14.5 [facility] Comment on above: Performed By: #### D IFBF, AMYM3, FLDCC, ALBM3, LDMS3, GLMS3 #### [address] [address] [place], [place] Hematocrit (Bld) [Volume fraction] 29.0 % Low 40.0-52.0 [facility] Comment on above: Performed By: #### D IFBF, AMYM3, FLDCC, ALBM3, LDMS3, GLMS3 #### [address] [address] [place], [place] Hemoglobin (Bld) [Mass/Vol] 10.3 g/dL Low 13.0-18.0 [facility] Comment on above: Performed By: #### D IFBF, AMYM3, FLDCC, ALBM3, LDMS3, GLMS3 #### [address] [address] [place], [place] MCH (RBC) [Entitic mass] 40.3 pg High 26.0-34.0 [facility] Comment on above: Performed By: #### D IFBF, AMYM3, FLDCC, ALBM3, LDMS3, GLMS3 #### [address] [place] MCHC 35.3 % Normal 32.0-36.0 [facility] Comment on above: Performed By: #### D IFBF, AMYM3, FLDCC, ALBM3, LDMS3, GLMS3 #### [address] MCV (RBC) [Entitic vol] 114.0 fL High 80.0-98.0 [facility] Comment on above: Performed By: #### D IFBF, AMYM3, FLDCC, ALBM3, LDMS3, GLMS3 #### [address] Platelet mean volume (Bld) [Entitic vol] 8.3 fL Normal 7.4-10.4 [facility] Comment on above: Performed By: #### D IFBF, AMYM3, FLDCC, ALBM3, LDMS3, GLMS3 #### [address] [place], [place] Platelets (Bld) [#/Vol] 58 10*3/uL Low 140-440 [facility] Comment on above: Performed By: #### D IFBF, AMYM3, FLDCC, ALBM3, LDMS3, GLMS3 #### [address] [place], [place] RBC (Bld) [#/Vol] 2.55 10*6/uL Low 4.40-5.90 [facility] Comment on above: Performed By: #### D IFBF, AMYM3, FLDCC, ALBM3, LDMS3, GLMS3 #### [address] [address] [place], [place] WBC (Bld) [#/Vol] 8.1 10*3/uL Normal 3.6-10.7 [facility] Comment on above: Performed By: #### D IFBF, AMYM3, FLDCC, ALBM3, LDMS3, GLMS3 #### [address] [place], [place] Manual Diffon 05-02-2021 Abs Baso Cnt 0.1 10*3/uL Normal 0.0-0.2 [facility] Comment on above: Performed By: #### D IFBF, AMYM3, FLDCC, ALBM3, LDMS3, GLMS3 #### [address] [place], [place] Abs Eosin Cnt 0.2 10*3/uL Normal 0.0-0.5 [facility] Comment on above: Performed By: #### D IFBF, AMYM3, FLDCC, ALBM3, LDMS3, GLMS3 #### [address] Abs Lymph Cnt 0.2 10*3/uL Low 1.1-4.5 [facility] Comment on above: Performed By: #### D IFBF, AMYM3, FLDCC, ALBM3, LDMS3, GLMS3 #### [facility] [address] [place], [place] Abs Monocyte Cnt 0.6 10*3/uL Normal 0.2-1.1 [facility] Comment on above: Performed By: #### D IFBF, AMYM3, FLDCC, ALBM3, LDMS3, GLMS3 #### [facility] [address] [place], [place] Abs Neutrophile Cnt 7.0 10*3/uL Normal 2.2-8.2 [facility] Comment on above: Performed By: #### D IFBF, AMYM3, FLDCC, ALBM3, LDMS3, GLMS3 #### [address] [place], [place] Basophils 1 % Normal 0-2 [facility] Comment on above: Performed By: #### D IFBF, AMYM3, FLDCC, ALBM3, LDMS3, GLMS3 #### [address] [address] [place], [place] Eosinophils 2 % Normal 1-6 [facility] Comment on above: Performed By: #### D IFBF, AMYM3, FLDCC, ALBM3, LDMS3, GLMS3 #### [address] [address] [place], [place] Lymphocytes 3 % Low 20-40 [facility] Comment on above: Performed By: #### D IFBF, AMYM3, FLDCC, ALBM3, LDMS3, GLMS3 #### [address] [place] Monocytes 7 % Normal 2-10 [facility] Comment on above: Performed By: #### D IFBF, AMYM3, FLDCC, ALBM3, LDMS3, GLMS3 #### [address] Ovalocytes Slight Normal [facility] Comment on above: Performed By: #### D IFBF, AMYM3, FLDCC, ALBM3, LDMS3, GLMS3 #### [address] [address] [place], [place] Poikilocytosis Slight Normal [facility] Comment on above: Performed By: #### D IFBF, AMYM3, FLDCC, ALBM3, LDMS3, GLMS3 #### [facility] [address] [place], [place] RBC Morphology ABNORMAL Normal [facility] Comment on above: Performed By: #### D IFBF, AMYM3, FLDCC, ALBM3, LDMS3, GLMS3 #### [facility] [address] [place], [place] Seg Neutrophils 87 % High 40-80 [facility] Comment on above: Performed By: #### D IFBF, AMYM3, FLDCC, ALBM3, LDMS3, GLMS3 #### [facility] [address] [place], [place] Tear Drop Forms Slight Normal [facility] Comment on above: Performed By: #### D IFBF, AMYM3, FLDCC, ALBM3, LDMS3, GLMS3 #### [facility] [address] [place], [place] Bands 0 % Normal 0-3 [facility] Comment on above: Performed By: #### D IFBF, AMYM3, FLDCC, ALBM3, LDMS3, GLMS3 #### [facility] [address] [place], [place] Cells counted 100 Normal [facility] Comment on above: Performed By: #### D IFBF, AMYM3, FLDCC, ALBM3, LDMS3, GLMS3 #### [facility] [address] [place], [place] Medical Cytologyon 2 Medical Cytology [facility] N [id number] DEPARTMENT OF PATHOLOGY AND [facility] LABORATORY MEDICINE [address] [place] [address] FINAL MEDICAL CYTOLOGY REPORT NAME: FRUSHOUR, DANNY : 1980 41 Y M BILLDAKSHA NO.: [id number] LOCATION: [address] [place] [address] [facility] 1465 PROCEDURE 05/02/2021 B DATE: PHYSICIAN: BRIJESH CONDON PA-C RECEIVED DATE: 05/02/2021 ATTENDING: DOROTHY RAMIREZ MD REPORT DATE: 05/03/2021 COPIES TO: ENEIDA KAY MD; RYLEE RAMIREZ MD CLINICAL DATA: DIAGNOSIS NO MALIGNANT CELLS IDENTIFIED. Inflammation present. SPECIMEN: ASCITES FLUID PROCEDURE(S): FLUID COLLECTION GROSS DESCRIPTION: 3000 ml, Arlene fluid, w/o cytolyt Materials Prepared & Examined: Cell Blocks . . . . . . . . . . . . 1 Monolayers . . . . . . . . . . . . 1 SKS Screened by Ethan MAHMOOD, PhD The following statement applies to all immunohistochemistry, in situ hybridization, molecular studies, and immunofluorescence testing. The use of one or more reagents in the above tests is regulated as an analyte specific reagent (ASR). These tests were developed and their performance characteristics determined by the clinical laboratories of [facility]. They have not been cleared by the US Food and Drug Administration (FDA). The FDA has determined that such clearance or approval is not necessary. All the above immunostains were performed on paraffin embedded tissue. Appropriate positive and negative controls (where applicable) were run in parallel with the patient's specimen; these controls showed expected staining pattern, with acceptable intensity of staining. Immunohistochemical assays have not been validated on decalcified tissues. Results should be interpreted with caution given the raised possibility of false negativity on decalcified specimens. Case reviewed at [facility] [address] [place] [address]. DEPARTMENT OF PATHOLOGY AND LABORATORY MEDICINE [place], [place] [address] [email or web address] Normal [facility] Protein, Total Body Fluidon 05-02-2021 Fluid Type Paracentesis Normal [facility] Comment on above: Performed By: #### D IFBF, AMYM3, FLDCC, ALBM3, LDMS3, GLMS3 #### [facility] [address] [place], [place] Protein,Total-Body Fld < 2.0 Normal No Range [facility] Comment on above: Performed By: #### D IFBF, AMYM3, FLDCC, ALBM3, LDMS3, GLMS3 #### [facility] [address] [place], [place] STAIN GRAMon 05-02-2021 STAIN GRAM STAIN GRAM --> Statu s: F Moderate polymorphonuclear cells/lpf. No organisms seen. No organisms seen. Normal [facility] Comment on above: Performed By: #### D IFBF, AMYM3, FLDCC, ALBM3, LDMS3, GLMS3 #### [facility] [address] [place], [place] STAIN GRAM STAIN GRAM --> Statu s: F Few polymorphonuclear cells/lpf. No organisms seen. No organisms seen. Normal [facility] Comment on above: Performed By: #### C XFLD, S/GRM #### [place] [address] [place], [place] US Paracentesison 05-02-2021 US Paracentesis Patient Name: DANNY MATSON Ultrasound ACCESSION EXAM DATE/TIME PROCEDURE ORDERING PROVIDER [id number] 05/02/2021 11:18 EST US Paracentesis Initial [id number] -BRIJESH HERNANDEZ CPT code 39824 Reason For Exam (US Paracentesis Initial) ER bedside para done but needs more fluid removed Addendum PROVIDER: ABEL ATKINSON I was the provider that did this procedure. Report Dictated on Final Addendum Dictated: 07/24/2021 12:16 pm Addendum Dictating Physician: ROBY MARTINES TROY Signed Date and Time: 07/24/2021 2:24 pm Signed by: ROBY MARTINES TROY Transcribed Date and Time: 07/24/2021 12:16 Report CLINICAL HISTORY: Ascites Procedures: Ultrasound-guided paracentesis. CITLALI: Abel Martines CNP MEDICATIONS: Local lidocaine EBL: Minimal. Contrast: None. Specimen sent: None COMPLICATIONS: None Procedural details: All of the risk, benefits, and alternative treatments were explained to the patient and informed consent was obtained and documented. The patient was brought into the ultrasound suite and placed in a supine position. The patient's abdomen was interrogated with ultrasound and a suitable site for paracentesis was identified within the right lower quadrant. The overlying skin was prepped and draped in the usual sterile fashion. The overlying subcutaneous tissues were anesthetized using 1 percent lidocaine. Following this, a 5 Burmese Yueh catheter was then advanced into the abdominal fluid collection under suction. The Yueh catheter was deployed and hooked up to drainage. FINDINGS: Fluid collection suitable for paracentesis within the right lower Ultrasound Report quadrant. Evacuation of 7.5 L arlene-colored fluid IMPRESSION: Successful uncomplicated ultrasound guided paracentesis. On site supervision performed by Dr. Kimball. Report Dictated on Final Dictated: 05/02/2021 11:35 am Dictating Physician: LISA KIMBALL DO, I Signed Date and Time: 05/02/2021 1:24 pm Signed by: LISA KIMBALL DO, I Transcribed Date and Time: 05/02/2021 11:36 Report last revised on 07/24/2021 14:24 EDT by ROBY MARTINES TROY Normal [facility] Albumin, Body Fluidon 2021 Albumin, Misc < 1.0 Normal No Range [facility] Comment on above: Performed By: #### D IFBF, AMYM3, FLDCC, ALBM3, LDMS3, GLMS3 #### [address] [address] Ammoniaon 05-01-2021 Ammonia (P) [Moles/Vol] 28 umol/L Normal 9-30 [facility] Comment on above: Performed By: #### D IFBF, AMYM3, FLDCC, ALBM3, LDMS3, GLMS3 #### [facility] [address] [place], [place] Amylase, Body Fluidon 2021 Amylase, Misc < 30 Normal No Range [facility] Comment on above: Performed By: #### D IFBF, AMYM3, FLDCC, ALBM3, LDMS3, GLMS3 #### [place] [address] [place], [place] Basic Metabolic Panelon Calcium [Mass/Vol] 8.3 mg/dL Low 8.4-10.4 [facility] Comment on above: Performed By: #### C /BLD #### [place] [address] [place], [place] Glucose [Mass/Vol] 115 mg/dL High 70-100 [facility] Comment on above: Performed By: #### C /BLD #### [place] [address] [place], [place] Anion gap [Moles/Vol] 11 mmol/L Normal 3-13 [facility] Comment on above: Performed By: #### C /BLD #### [place] [address] [place], [place] CO2 [Moles/Vol] 27 mmol/L Normal 22-30 [facility] Comment on above: Performed By: #### C /BLD #### [place] [address] [place], [place] Creatinine [Mass/Vol] 0.67 mg/dL Normal 0.52-1.25 [facility] Comment on above: Performed By: #### C /BLD #### [place] [address], [place] eGFR OTHER > 90.0 Normal >60 [facility] Comment on above: Result Comment: KDIG O guidelines provide the following GFR categories: Stage GFR(ml/min/1.73 m2) Terms G1 >=90 Normal or high G2 60-89 Mildly decreased* G3a 45-59 Mildly to moderately decreased G3b 30-44 Moderately to severely decreased G4 15-29 Severely decreased G5 <15 Kidney failure *Relative to young adult level. In the absence of evidence of kidney damage, neither GFR category G1 nor G2 fulfill the criteria for CKD. The CKD-EPI equation is validated in individuals 18 years of age and older. Currently the best equation for estimating glomerular filtration rate (GFR) from serum creatinine in children is the Bedside Bardales equation. It is less accurate in patients with extremes of muscle mass, restriction of dietary protein, ingestion of creatine, extra-renal metabolism of creatinine, or treatment with medications that affect renal tubular creatinine secretion. Performed By: #### C /BLD #### [place] [address], [place] GFR/1.73 sq M.predicted among blacks MDRD (S/P/Bld) [Vol rate/Area] mL/min/{1.73_m2} Normal >60 [facility] Comment on above: Performed By: #### C /BLD #### [place] [address] [place], [place] Urea nitrogen [Mass/Vol] 9 mg/dL Normal 7-17 [facility] Comment on above: Performed By: #### C /BLD #### [place] [address] [place], [place] Chloride [Moles/Vol] 93 mmol/L Low 98-107 [facility] Comment on above: Performed By: #### C /BLD #### [place] [address] [place], [place] Potassium [Moles/Vol] 3.7 mmol/L Normal 3.5-5.1 [facility] Comment on above: Performed By: #### C /BLD #### [place] [address] [place], [place] Sodium [Moles/Vol] 131 mmol/L Low 135-145 [facility] Comment on above: Performed By: #### C /BLD #### [place] [address], [place] CR Chest Portableon 05-01-19 22 CR Chest Portable Patient Name: DANNY MATSON Diagnostic Radiology ACCESSION EXAM DATE/TIME PROCEDURE ORDERING PROVIDER [id number] 05/01/2021 19:32 EST CR Chest Portable Jose David ALESSIO MOTLEY CPT code 20385 Reason For Exam (CR Chest Portable) dyspnea Report CHEST PORTABLE CLINICAL INDICATION: dyspnea TECHNIQUE: Portable chest x-ray(s). COMPARISON: None. FINDINGS: Cardiac and mediastinal silhouette within normal limits. Lungs are grossly clear. No significant vascular congestion. No apparent pleural effusion or pneumothorax. Bony thorax grossly unremarkable. IMPRESSION: 1. No acute findings. Report Dictated on Workstation: [id number] Final Dictated: 05/01/2021 7:39 pm Dictating Physician: MD ABDULLAHI WENDELL Signed Date and Time: 05/01/2021 7:39 pm Signed by: MD ABDULLAHI WENDELL Transcribed Date and Time: 05/01/2021 7:39 Normal [facility] CT Abdomen/Pelvis w/ Contras ton 05-01-2021 CT Abdomen/Pelvis w/ Contrast [facility]: [id number] Tomography ACCESSION EXAM DATE/TIME PROCEDURE ORDERING PROVIDER [id number] 05/01/2021 21:[address] Abdomen/Pelvis w/ IV [id number] TOLU, Contrast (IV Onl ALESSIO CPT code 93345 Q9967 Reason For Exam (CT Abdomen/Pelvis w/ IV Contrast (IV Onl) abdominal distention Report CT ABDOMEN AND PELVIS WITH CONTRAST CLINICAL INDICATION: abdominal distention TECHNIQUE: CT scan of the abdomen and pelvis, with IV contrast. Multiplanar reformations. COMPARISON: None. FINDINGS: Abdomen: Visualized lung bases show probable atelectasis or scarring on the right. Amorphous hyperdensities in the dependent portion gallbladder. Liver demonstrates micronodular margins without focal abnormality. Spleen borderline enlarged, and varices are noted in the upper abdomen. Pancreas without significant abnormality. Kidneys without significant abnormality. Adrenal glands without significant abnormality. Pelvis: Variable bowel wall and fold thickening may be reactive. Diverticular change scattered in the colon. No evidence of mechanical bowel obstruction. Appendix not confidently identified. Large amount of nonspecific, free fluid and mesenteric fat stranding or edema in the abdomen and pelvis. No discrete abscess or apparent adenopathy. Computed Tomography Report Abdominal aorta is nonaneurysmal. Axial skeleton grossly intact. Mild, diffuse subcutaneous edema or anasarca throughout the trunk and pelvis. IMPRESSION: 1. Findings which may represent cholestasis versus cholelithiasis. 2. Findings compatible with cirrhotic liver and sequelae of portal venous hypertension. 3. Findings which may be reactive or represent nonspecific postinflammatory change and enterocolitis, as well as diffuse diverticulosis. 4. Large amount of nonspecific, free fluid and diffuse mesenteric edema in the abdomen and pelvis. Report Dictated on Workstation: [id number] Final Dictated: 05/01/2021 9:21 pm Dictating Physician: MD ABDULLAHI WENDELL Signed Date and Time: 05/01/2021 9:30 pm Signed by: MD ABDULLAHI WENDELL Transcribed Date and Time: 05/01/2021 9:21 Normal [facility] Cell Count,Body Fluidon Nucleated Cells 1630 {cells}/uL Normal [facility] Comment on above: Performed By: #### D IFBF, AMYM3, FLDCC, ALBM3, LDMS3, GLMS3 #### [facility] [address] [place], [place] RBC Count Body Fld 1322 {RBC}/uL Normal [facility] Comment on above: Performed By: #### D IFBF, AMYM3, FLDCC, ALBM3, LDMS3, GLMS3 #### [facility] [address] [place] [address] Fluid Type Ascites Normal [facility] Comment on above: Performed By: #### D IFBF, AMYM3, FLDCC, ALBM3, LDMS3, GLMS3 #### [facility] [address] [place] [address] Differential,Body Fluidson 0 05-01-2021 Cells Counted for Diff 100 Normal [facility] Comment on above: Performed By: #### D IFBF, AMYM3, FLDCC, ALBM3, LDMS3, GLMS3 #### [facility] [address] [place] [address] ED Provider Noteon ED Provider Note [facility] EMERGENCY DEPT EMERGENCY DEPARTMENT ENCOUNTER Pt Name: Danny Bedoya Birthdate 1980 Date of evaluation: 05/01/2021 Provider: Chandu Taylor MD CHIEF COMPLAINT Chief Complaint Patient presents with ? Abdominal Pain abdominal pain, swelling, and severe jaundice HISTORY OF PRESENT ILLNESS (Location/Symptom, Timing/Onset, Context/Setting, Quality, Duration, Modifying Factors, Severity) Note limiting factors. I wore a N95 no mask for the entirety of this encounter. Does this patient come from an ECF, SNF, Rehab, Alf or other Congregate setting: No (If yes to above patient needs a Covid-19 test) HPI Danny Bedoya is a 41 y.o. male who presents to the emergency department abdominal pain swelling jaundice for the past month worsening over the past 2 weeks. Pain is diffuse, severe, with no alleviating exacerbating features, no radiation component. Patient has a past medical history of hypertension as well as asthma. He also reports having chronic alcohol use drinking approximately drinks of liquor daily for the past 10 years. He reportedly was evaluated at [facility] twice 4 weeks ago and subsequently discharged. He reports that he was diagnosed with alcoholic cirrhosis. Over the past 2 weeks he reports that his belly has gotten markedly distended, has become more jaundiced. Denies any fevers, nausea, vomiting, hemoptysis but does endorse some chest discomfort and shortness of breath with the abdominal distention. Nursing Notes were reviewed. REVIEW OF SYSTEMS (2+ for level 4; 10+ for level 5) Review of Systems Constitutional: Positive for chills. Negative for fever. HENT: Negative for rhinorrhea and sore throat. Eyes: Negative for visual disturbance. Respiratory: Positive for shortness of breath. Negative for cough. Cardiovascular: Positive for chest pain. Gastrointestinal: Positive for abdominal distention and abdominal pain. Negative for diarrhea, nausea and vomiting. Genitourinary: Negative for dysuria. Musculoskeletal: Negative for myalgias. Skin: Negative for rash. Neurological: Negative for dizziness, syncope, light-headedness, numbness and headaches. PAST MEDICAL HISTORY Past Medical History: Diagnosis Date ? Asthma ? Hypertension ? Liver cirrhosis (HCC) SURGICAL HISTORY No past surgical history on file. CURRENT MEDICATIONS Previous Medications No medications on file ALLERGIES Lisinopril FAMILY HISTORY No family history on file. SOCIAL HISTORY Social History Socioeconomic History ? Marital status: Single Spouse name: None ? Number of children: None ? Years of education: None ? Highest education level: None Occupational History ? None Tobacco Use ? Smoking status: Never Smoker ? Smokeless tobacco: None Substance and Sexual Activity ? Alcohol use: Yes Alcohol/week: 2.0 standard drinks Types: 2 Cans of beer per week Comment: "drink or two" a day ? Drug use: Yes Types: Marijuana ([place]) ? Sexual activity: None Other Topics Concern ? None Social History Narrative ? None Social Determinants of Health Financial Resource Strain: ? Difficulty of Paying Living Expenses: Not on file Food Insecurity: ? Worried About Running Out of Food in the Last Year: Not on file ? Ran Out of Food in the Last Year: Not on file Transportation Needs: ? Lack of Transportation (Medical): Not on file ? Lack of Transportation (Non-Medical): Not on file Physical Activity: ? Days of Exercise per Week: Not on file ? Minutes of Exercise per Session: Not on file Stress: ? Feeling of Stress : Not on file Social Connections: ? Frequency of Communication with Friends and Family: Not on file ? Frequency of Social Gatherings with Friends and Family: Not on file ? Attends Bahai Services: Not on file ? Active Member of Clubs or Organizations: Not on file ? Attends Club or Organization Meetings: Not on file ? Marital Status: Not on file Intimate Partner Violence: ? Fear of Current or Ex-Partner: Not on file ? Emotionally Abused: Not on file ? Physically Abused: Not on file ? Sexually Abused: Not on file Housing Stability: ? Unable to Pay for Housing in the Last Year: Not on file ? Number of Places Lived in the Last Year: Not on file ? Unstable Housing in the Last Year: Not on file SCREENINGS PHYSICAL EXAM (up to 7 for level 4, 8 or more for level 5) ED Triage Vitals [05/01/21 1817] BP Temp Temp Source Pulse Resp SpO2 Height Weight 131/85 98.2 ?F (36.8 ?C) Oral 122 16 97 % 5' 4" (1.626 m) 167 lb (75.8 kg) Physical Exam Constitutional: General: He is not in acute distress. Appearance: He is well-developed. He is not ill-appearing. HENT: Head: Normocephalic and atraumatic. Cardiovascular: Rate and Rhythm: Regular rhythm. Tachycardia present. Heart sounds: Normal heart sounds. No murmur heard. No gallop. Pulmonary: Effort: Pulmonary effort is normal. No respirat (more content not included)... Normal [facility] ED Provider Note [facility] EMERGENCY DEPT EMERGENCY DEPARTMENT ENCOUNTER Pt Name: Danny Bedoya Birthdate 1980 Date of evaluation: 05/01/2021 Provider: Charanjit Quinonez, This patient was seen during a global health emergency during the COVID-19 pandemic and its resultant significant effects on the delivery of emergency care. This includes but is not limited to the following: significant ED boarding, hospital overcrowding, limited bed availability (floor and especially ICU), limited resources (personnel, supplies, testing, services etc). While every and all efforts are made to delivery the highest quality care in a prompt way there may or may not be significant delays in care as a result. CHIEF COMPLAINT Chief Complaint Patient presents with ? Abdominal Pain abdominal pain, swelling, and severe jaundice HISTORY OF PRESENT ILLNESS (Location/Symptom, Timing/Onset, Context/Setting, Quality, Duration, Modifying Factors, Severity) Note limiting factors. I wore a surgical face mask for the entirety of this encounter. HPI Danny Bedoya is a 41 y.o. male with past medical history significant for asthma, HTN, Cirrhosis who presents to the emergency department with abdominal pain, swelling. Old chart reviewed: Summary of pertinent elements includes: No recent ED visits or hospitalizations PAST MEDICAL HISTORY Past Medical History: Diagnosis Date ? Asthma ? Hypertension ? Liver cirrhosis (HCC) SURGICAL HISTORY No prior surgery CURRENT MEDICATIONS Previous Medications No medications on file ALLERGIES Lisinopril FAMILY HISTORY No prior family hx SOCIAL HISTORY No social hx noted. SCREENINGS PHYSICAL EXAM (up to 7 for level 4, 8 or more for level 5) BP 131/85 Pulse 122 Temp 98.2 ?F (36.8 ?C) (Oral) Resp 16 Ht 5' 4" (1.626 m) Wt 75.8 kg (167 lb) SpO2 97% BMI 28.67 kg/m? Nursing triage notes reviewed, Vital signs reviewed Constitutional: please see mdm HENT: MMM Eyes: Pupils equal round and reactive to light, Extraocular muscles intact, scleral icterus Neck: No stridor, no JVD, full neck ROM Lungs: Clear to auscultation, No wheezing or rales. No increased work of breathing, no conversational dyspnea, no accessory muscle use, no nasal flaring. No respiratory distress noted Heart: Regular rate and rhythm, No murmurs, No rubs and No gallops, 2+ distal pulses (radial, femoral, posterior tibial) in all extremities Abdomen: distended, diffusely tender, spider angiomata, +fluid wave : No CVAT Extremities: No edema Neuro: No focal neurological deficits, cranial nerves II through XII intact, 5/5 strength in all extremities. Intact sensation to light touch in all extremities, 2+ reflexes bilateral patella dens. Normal gait. No ataxia. Skin: severe jaundice DIAGNOSTIC RESULTS EKG (if obtained) interpreted in ED course. Please see below. EMERGENCY DEPARTMENT COURSE and DIFFERENTIAL DIAGNOSIS/MDM: Labs and Images interpreted in ED course. All labs and imaging have been personally reviewed by me. Medications sodium chloride flush 0.9 % injection 3 mL (has no administration in time range) MDM. Danny Bedoya 41 y.o. male. The patient was examined. Danny Bedoya was initially tachycardic otherwise hemodynamically stable he was profoundly jaundiced with a distended belly, spider angiomata and fluid wave. Concerning for decompensated cirrhosis. We did perform a paracentesis to rule out SBP. Paracentesis performed by Dr. Perez. Please see his separate documentation. Also obtain a broad lab and imaging work-up to further elucidate the cause the patient's diffuse weakness over the last several weeks. We will continuously assess the patient, we will review labs and images and determine disposition based on results of the above studies and is clinical course. Patient's labs consistent with decompensated liver cirrhosis will need admission. CRITICAL CARE TIME Total Critical Care time was 35 minutes, excluding separately reportable procedures. There was a high probability of clinically significant/life threatening deterioration in the patient's condition whichrequired my urgent intervention. CONSULTS: None PROCEDURES: Unless otherwise noted below, none [facility] POINT OF CARE ULTRASOUND Date/Time: 05/01/2021 8:09 PM Performed by: Charanjit Quinonez DO Authorized by: Charanjit Quinonez DO Written consent obtained: Yes Given by: Patient Performed by: Attending Type of procedure: Focused biliary (paracentesis) Indications: Abdominal pain Indications: Jaundice (Obtained imaging prior to paracentesis) FINAL IMPRESSION 1. Generalized abdominal pain 2. Jaundice DISPOSITION/PLAN Pending labs, images (Please note: Portions of this note were completed with a voice recognition program. Efforts were made to edit the dictations but occasionally words and phrases are mis-transcribed.) Form [id number] Charanjit Quinonez DO (electronically sig (more content not included)... Normal [facility] ED Provider Note Emergency Department Encounter [facility] EMERGENCY DEPT Patient: Danny Bedoya : 1980 Date of Evaluation: 05/01/2021 ED Provider: BEA Jauregui CNP As the [id number], I performed a medical screening history and physical exam on this patient. HISTORY OF PRESENT ILLNESS In brief, Danny Bedoya is a 41 y.o. male that presents for abdominal pain. Patient reports having abdominal pain for past couple of weeks. Patient reported seeing provider at [facility] who reported he was "constipated". Patient also reported his PCP had physically discussed liver cirrhosis with him and he is awaiting specialty appointment but is over 1 month away. Patient reports he has for the last week continue to have abdominal pain, abdominal distention, yellowing of skin that is worsening. Patient reports he has not had nausea, vomiting. Patient reports no chest pain. Patient does endorse some shortness of breath and reports it has been harder for him to breathe as his abdomen has been enlarging. Patient reports hypertension history, cysts he has asthma, denies tobacco use. Patient reports previous alcohol use including multiple beers per day, reports he recently cut down to a few per day. Patient does report his last bowel movement was this morning, small, semisolid. He denies any pain with urination or difficulty urinating. PHYSICAL EXAM ED Triage Vitals [05/01/211816] Enc Vitals Group BP 131/85 Pulse 122 Resp 16 Temp 98.2 ?F (36.8 ?C) Temp Source Oral SpO2 97 % Weight 167 lb (75.8 kg) Height 5' 4" (1.626 m) Head Circumference Peak Flow Pain Score Pain Loc Pain Edu? Excl. in GC? On brief exam, patient alert, oriented, and gross jaundice noted. Abdomen distended, firm, bowel sounds active x4. Heart rate tachycardic, regular rhythm. Lungs diminished on auscultation bilaterally. Trace bilateral lower extremity edema. We will initiate diagnostics/treatments as indicated and place in main ED as soon as available. Alessio Nolasco APRN - [employer] BEA Jauregui CNP 05/01/212000 Normal [facility] Glucose, Body Fluidon 2021 Glucose, Body Fluid 113 mg/dL Normal No Range [facility] Comment on above: Performed By: #### D IFBF, AMYM3, FLDCC, ALBM3, LDMS3, GLMS3 #### [facility] [address] [place], [place] Hemogram w/ Autodiffon 05-01 Erythrocyte distribution width (RBC) [Ratio] 14.6 % High 11.5-14.5 [facility] Comment on above: Performed By: #### C /BLT #### [place] [address] [place], [place] Hematocrit (Bld) [Volume fraction] 34.1 % Low 40.0-52.0 [facility] Comment on above: Performed By: #### C /BLT #### [place] [place], [place] Hemoglobin (Bld) [Mass/Vol] 11.9 g/dL Low 13.0-18.0 [facility] Comment on above: Performed By: #### C /BLT #### [place] [address] [place], [place] MCH (RBC) [Entitic mass] 39.7 pg High 26.0-34.0 [facility] Comment on above: Performed By: #### C /BLT #### [place] [address] [place], [place] MCHC 34.8 % Normal 32.0-36.0 [facility] Comment on above: Performed By: #### C /BLT #### [address] [place], [place] MCV (RBC) [Entitic vol] 114.2 fL High 80.0-98.0 [facility] Comment on above: Performed By: #### C /BLT #### [facility] [address] [place], [place] Platelet mean volume (Bld) [Entitic vol] 8.6 fL Normal 7.4-10.4 [facility] Comment on above: Performed By: #### C /BLT #### [facility] [address] [place], [place] Platelets (Bld) [#/Vol] 82 10*3/uL Low 140-440 [facility] Comment on above: Performed By: #### C /BLT #### [place] [place], [place] RBC (Bld) [#/Vol] 2.99 10*6/uL Low 4.40-5.90 [facility] Comment on above: Performed By: #### C /BLT #### [place] [place], [place] WBC (Bld) [#/Vol] 11.1 10*3/uL High 3.6-10.7 [facility] Comment on above: Performed By: #### C /BLT #### [place] [place], [place] Hepatic Functionon 2 ALP [Catalytic activity/Vol] 349 U/L High 38-126 [facility] Comment on above: Performed By: #### C /BLD #### [place] [place], [place] ALT [Catalytic activity/Vol] 60 U/L High 0-49 [facility] Comment on above: Result Comment: The ALT test is performed by an updated assay method. Please note that the reference intervals have been changed and are now sex specific. Performed By: #### C /BLD #### [address] [place], [place] AST [Catalytic activity/Vol] 218 U/L High 15-46 [facility] Comment on above: Performed By: #### C /BLD #### [address] [place], [place] Bilirubin [Mass/Vol] 24.2 mg/dL High 0.2-1.3 [facility] Comment on above: Performed By: #### C /BLD #### [address] [place], [place] Bilirubin.indirect [Mass/Vol] 15.1 mg/dL Critically high 0.0-0.3 [facility] Comment on above: Performed By: #### C /BLD #### [address] [place], [place] Protein [Mass/Vol] 7.5 g/dL Normal 6.3-8.2 [facility] Comment on above: Performed By: #### C /BLD #### [address] [address] [place], [place] Albumin [Mass/Vol] 2.7 g/dL Low 3.5-5.0 [facility] Comment on above: Performed By: #### C /BLD #### [address] [place] [address] [place], [place] LDH, Body Fluidon 05-01-2021 Fluid Type Acites Normal [facility] Comment on above: Performed By: #### D IFBF, AMYM3, FLDCC, ALBM3, LDMS3, GLMS3 #### [place] [place], [place] LDH, Body Fluid 143 U/L Normal No Range [facility] Comment on above: Performed By: #### D IFBF, AMYM3, FLDCC, ALBM3, LDMS3, GLMS3 #### [place] [address] [place] Lactic Acidon 05-01-2021 Lactate [Moles/Vol] 3.8 mmol/L Critically high 0.7-2.0 [facility] Comment on above: Result Comment: Crit ical Panic Lactate has fallen below the [facility] CCL/ED Panic Call Protocol. For [facility] ED patients ONLY the Lactate Levels greater than 2.0 and less than or equal to 4.0 mmol/L fall under the Panic Call Policy. Performed By: #### C /BLD #### [place] [address] [place], [place] Lipaseon 05-01-2021 Lipase [Catalytic activity/Vol] 446 U/L High 23-300 [facility] Comment on above: Performed By: #### C /BLD #### [place] [place], [place] Manual Diffon 05-01-2021 Abs Baso Cnt 0.0 10*3/uL Normal 0.0-0.2 [facility] Comment on above: Performed By: #### C /BLT #### [address] [place] Abs Eosin Cnt 0.0 10*3/uL Normal 0.0-0.5 [facility] Comment on above: Performed By: #### C /BLT #### [place] [place] Abs Lymph Cnt 0.7 10*3/uL Low 1.1-4.5 [facility] Comment on above: Performed By: #### C /BLT #### [place] [address] [place], [place] Abs Monocyte Cnt 0.9 10*3/uL Normal 0.2-1.1 [facility] Comment on above: Performed By: #### C /BLT #### [address] [place] [place], [place] Abs Neutrophile Cnt 9.5 10*3/uL High 2.2-8.2 [facility] Comment on above: Performed By: #### C /BLT #### [address] [place] Anisocytosis Slight Normal [facility] Comment on above: Performed By: #### C /BLT #### [address] Bands 0 % Normal 0-3 [facility] Comment on above: Performed By: #### C /BLT #### [place] [address] [place], [place] Basophils 0 % Normal 0-2 [facility] Comment on above: Performed By: #### C /BLT #### [facility] [address] [place], [place] Cells counted 100 Normal [facility] Comment on above: Performed By: #### C /BLT #### [facility] [address] [place], [place] Eosinophils 0 % Low 1-6 [facility] Comment on above: Performed By: #### C /BLT #### [facility] [address] [place], [place] Lymphocytes 6 % Low 20-40 [facility] Comment on above: Performed By: #### C /BLT #### [facility] [address] [place], [place] Macrocytosis Slight Normal [facility] Comment on above: Performed By: #### C /BLT #### [facility] [address] [place], [place] Monocytes 8 % Normal 2-10 [facility] Comment on above: Performed By: #### C /BLT #### [facility] [address] [place] Ovalocytes Slight Normal [facility] Comment on above: Performed By: #### C /BLT #### [facility] [address] [place] Poikilocytosis Slight Normal [facility] Comment on above: Performed By: #### C /BLT #### [facility] [address] [place], [place] RBC Morphology ABNORMAL Normal [facility] Comment on above: Performed By: #### C /BLT #### [facility] [address] [place], [place] Seg Neutrophils 86 % High 40-80 [facility] Comment on above: Performed By: #### C /BLT #### [facility] [address] [place], [place] Medical Cytology 2 Medical Cytology [facility] N [id number] DEPARTMENT OF PATHOLOGY AND [facility] LABORATORY MEDICINE [address] [place] [id number] FINAL MEDICAL CYTOLOGY REPORT NAME: DANNY BEDOYA : 1980 41 Y M BILLDAKSHA NO.: [id number] LOCATION: [address] [place] [address] [facility] [id number] PROCEDURE 05/01/2021 B DATE: PHYSICIAN: CHANDU TAYLOR MD RECEIVED DATE: 05/02/2021 ATTENDING: DOROTHY RAMIREZ MD REPORT DATE: 05/03/2021 COPIES TO: ENEIDA KAY MD; RYLEE RAMIREZ MD CLINICAL DATA: DIAGNOSIS NO MALIGNANT CELLS IDENTIFIED. Acute inflammation present. Correlation with microbiologic cultures recommended. SPECIMEN: ASCITES FLUID PROCEDURE(S): FLUID COLLECTION GROSS DESCRIPTION: 80 ml, Straw fluid, w/o cytolyt Materials Prepared & Examined: Cell Blocks . . . . . . . . . . . . 1 Monolayers . . . . . . . . . . . . 1 K Screened by Ethan MAHMOOD, PhD The following statement applies to all immunohistochemistry, in situ hybridization, molecular studies, and immunofluorescence testing. The use of one or more reagents in the above tests is regulated as an analyte specific reagent (ASR). These tests were developed and their performance characteristics determined by the clinical laboratories of [facility]. They have not been cleared by the US Food and Drug Administration (FDA). The FDA has determined that such clearance or approval is not necessary. All the above immunostains were performed on paraffin embedded tissue. Appropriate positive and negative controls (where applicable) were run in parallel with the patient's specimen; these controls showed expected staining pattern, with acceptable intensity of staining. Immunohistochemical assays have not been validated on decalcified tissues. Results should be interpreted with caution given the raised possibility of false negativity on decalcified specimens. Case reviewed at [facility] [address] [place] [address]. DEPARTMENT OF PATHOLOGY AND LABORATORY MEDICINE [place], [place] [email or web address] Normal [facility] NT pro BNPon 05-01-2021 Natriuretic peptide B (Bld) [Mass/Vol] 59 pg/mL Normal 0-125 [facility] Comment on above: Performed By: #### C /BLD #### [address] [place], [place] Protime AND APTTon aPTT Coag (Bld) [Time] 44.2 s High 20.0-30.5 [facility] Comment on above: Result Comment: NOTE : The therapeutic time for Heparin anticoagulation, based on Xa activity inhibition, is an APTT of 46-80 seconds. Performed By: #### D IFBF, AMYM3, FLDCC, ALBM3, LDMS3, GLMS3 #### [address] [place], [place] INR 1.8 High 0.9-1.1 [facility] Comment on above: Result Comment: Herber mmended Anticoagulant Therapy: SEE BELOW ----- INR of 2.0 - 3.0 : - Prophylaxis of Venous Thrombosis (high-risk surgery) - Treatment of Venous Thrombosis - Treatment of Pulmonary Embolism (Includes tissue heart valves, Acute Myocardial Infarction to prevent systemic embolism, Valvular Heart Disease, and Atrial Fibrillation) ----- INR of 2.5 - 3.5 : - Mechanical Prosthetic Valves (high risk) - If oral anticoagulant therapy is used to prevent Myocardial Infarction Performed By: #### D IFBF, AMYM3, FLDCC, ALBM3, LDMS3, GLMS3 #### [facility] [address], [place] PT Coag (PPP) [Time] 18.2 s High 9.0-12.0 [facility] Comment on above: Result Comment: . Performed By: #### D IFBF, AMYM3, FLDCC, ALBM3, LDMS3, GLMS3 #### [facility] [address] [place], [place] SARS-CoV-2, Flu A/B and RSVo n 05-01-2021 SARS-CoV-2 (COVID-19) RNA DANA+probe Ql (Unsp spec) SARS-CoV-2 --> Status: F Not Detected. Flu A PCR --> Status: F Not Detected. Flu B PCR --> Status: F Not Detected. RSV PCR --> Status: F Not Detected. Expected Result: Not Detected _ Method: Real-time, RT-PCR This assay was developed by [employer] and distributed under an Emergency Use Authorization (EUA) granted by the FDA for the qualitative detection of nucleic acids from SARS-CoV-2, Influenza A, Influenza B, and Respiratory Syncytial Virus. Provider and patient fact sheets can be found at https://www.fda.gov/media/ 61663/download and https://www.fda.gov/media/ 03064/download. Expected Result: Not Detected _ Method: Real-time, RT-PCR This assay was developed by [employer] and distributed under an Emergency Use Authorization (EUA) granted by the FDA for the qualitative detection of nucleic acids from SARS-CoV-2, Influenza A, Influenza B, and Respiratory Syncytial Virus. Provider and patient fact sheets can be found at https://www.fda.gov/media/ 21110/download and https://www.fda.gov/media/ 06189/download. Normal [facility] Comment on above: Performed By: #### D IFBF, AMYM3, FLDCC, ALBM3, LDMS3, GLMS3 #### [facility] [address] [place], [place] Troponin Ion 05-01-2021 Troponin I.cardiac [Mass/Vol] ng/mL Normal 0.000-0.03 4 [facility] Comment on above: Result Comment: . Performed By: #### C /BLT #### [facility] [address] [place] [address] US Abdomen Limitedon 022 US Abdomen Limited [facility]: [id number] ACCESSION EXAM DATE/TIME PROCEDURE ORDERING PROVIDER [id number] 05/01/2021 21:45 EST US Abdomen Limited [id number] -CHARANJIT QUINONEZ CPT code 31952 Reason For Exam (US Abdomen Limited) RUQ US Report ULTRASOUND OF RIGHT UPPER QUADRANT CLINICAL INDICATION: RUQ US TECHNIQUE: Real-time ultrasound of the right upper quadrant of the abdomen. COMPARISON: None. FINDINGS: Gallbladder contains echogenic and nonshadowing sludge without evidence of calculi. Gallbladder wall thickened measuring up to 10 mm. Intra-and extrahepatic bile ducts are of normal caliber. Negative sonographic Bah's sign. Liver has increased echogenicity and nodular margins without focal abnormality. Right kidney measures 12.3 cm in longest dimension and is grossly unremarkable. Limited visualized pancreatic parenchyma grossly unremarkable. Moderate-large amount of free ascites fluid. IMPRESSION: 1. Findings compatible with cholestasis without evidence of cholelithiasis and gallbladder wall thickening, which may be secondary to ascites. 2. Findings which may represent fatty infiltration in the liver, as well as nonspecific hepatocellular disease, including cirrhosis. 3. Moderate-large amount of ascites fluid. Report Dictated on Workstation: GURJIT Final Dictated: 05/01/2021 10:17 pm Dictating Physician: MD ABDULLAHI WENDELL Signed Date and Time: 05/01/2021 10:21 pm Signed by: MD ABDULLAHI WENDELL Transcribed Date and Time: 05/01/2021 10:17 Normal [facility] Vital Signs Date Time Vital Sign Value Performing Clinician Facility 07-23-2024 08:00-0400 Body temperature 97.5 [degF] Dr. Lexi Barnes MD Work Phone: [facility] 07-23-2024 08:00-0400 Diastolic blood pressure 83 mm[Hg] Dr. Lexi Barnes MD Work Phone: [facility] 07-23-2024 08:00-0400 Heart rate 80 /min Dr. Lexi Barnes MD Work Phone: [facility] 07-23-2024 08:00-0400 Respiratory rate 16 /min Dr. Lexi Barnes MD Work Phone: [facility] 07-23-2024 08:00-0400 SaO2% (BldA) [Mass fraction] 98 % Dr. Lexi Barnes MD Work Phone: [facility] 07-23-2024 08:00-0400 Systolic blood pressure 134 mm[Hg] Dr. Lexi Barnes MD Work Phone: [facility] 07-23-2024 05:46-0400 Body mass index (BMI) [Ratio] 26.9 kg/m2 Dr. Lexi Barnes MD Work Phone: [facility] 07-23-2024 05:46-0400 Body weight [address] Lexi Barnes MD Work Phone: [facility] 07-23-2024 03:41-0400 Inhaled oxygen flow rate 2 L/min Dr. Lexi Barnes MD Work Phone: [facility] 07-22-2024 04:14-0400 Body height 162.[address] Lexi Barnes MD Work Phone: [facility] 07-22-2024 03:33-0400 Diastolic blood pressure 90 mm[Hg] Dr. Lexi Barnes MD Work Phone: [facility] 07-22-2024 03:33-0400 Heart rate 87 /min Dr. Lexi Barnes MD Work Phone: [facility] 07-22-2024 03:33-0400 Inhaled oxygen flow rate 4 L/min Dr. Lexi Barnes MD Work Phone: [facility] 07-22-2024 03:33-0400 Respiratory rate 19 /min Dr. Lexi Barnes MD Work Phone: [facility] 07-22-2024 03:33-0400 SaO2% (BldA) [Mass fraction] 93 % Dr. Lexi Barnes MD Work Phone: [facility] 07-22-2024 03:33-0400 Systolic blood pressure 143 mm[Hg] Dr. Lexi Barnes MD Work Phone: [facility] 07-22-2024 01:28-0400 Body temperature 97.9 [degF] Dr. Lexi Barnes MD Work Phone: [facility] 07-22-2024 00:51-0400 Inhaled oxygen concentration 30 % Dr. Lexi Barnes MD Work Phone: [facility] 07-22-2024 00:49-0400 Body height 162.[address] Lexi Barnes MD Work Phone: [facility] 07-22-2024 00:49-0400 Body mass index (BMI) [Ratio] 61 kg/m2 Dr. Lexi Barnes MD Work Phone: [facility] 07-22-2024 00:49-0400 Body weight 161.[address] Lexi Barnes MD Work Phone: [facility] 07-06-2024 15:24-0400 Body temperature 97.8 [degF] Dr. Lexi Barnes MD Work Phone: [facility] 07-06-2024 15:24-0400 Diastolic blood pressure 90 mm[Hg] Dr. Lexi Barnes MD Work Phone: [facility] 07-06-2024 15:24-0400 Heart rate 107 /min Dr. Lexi Barnes MD Work Phone: [facility] 07-06-2024 15:24-0400 Respiratory rate 20 /min Dr. Lexi Barnes MD Work Phone: [facility] 07-06-2024 15:24-0400 SaO2% (BldA) [Mass fraction] 91 % Dr. Lexi Barnes MD Work Phone: [facility] 07-06-2024 15:24-0400 Systolic blood pressure 151 mm[Hg] Dr. Lexi Barnes MD Work Phone: [facility] 07-06-2024 14:00-0400 Inhaled oxygen flow rate 3 L/min Dr. Lexi Barnes MD Work Phone: [facility] 07-06-2024 04:01-0400 Body mass index (BMI) [Ratio] 26.1 kg/m2 Dr. Lexi Barnes MD Work Phone: [facility] 07-06-2024 04:01-0400 Body weight 69.[address] Lexi Barnes MD Work Phone: [facility] 07-06-2024 03:53-0400 Body height 162.[address] Lexi Barnes MD Work Phone: [facility] 07-06-2024 02:33-0400 Body temperature 98.1 [degF] Dr. Lexi Barnes MD Work Phone: [facility] 07-06-2024 02:33-0400 Diastolic blood pressure 101 mm[Hg] Dr. Lexi Barnes MD Work Phone: [facility] 07-06-2024 02:33-0400 Heart rate 92 /min Dr. Lexi Barnes MD Work Phone: [facility] 07-06-2024 02:33-0400 Respiratory rate 20 /min Dr. Lexi Barnes MD Work Phone: [facility] 07-06-2024 02:33-0400 SaO2% (BldA) [Mass fraction] 97 % Dr. Lexi Barnes MD Work Phone: [facility] 07-06-2024 02:33-0400 Systolic blood pressure 144 mm[Hg] Dr. Lexi Barnes MD Work Phone: [facility] 07-05-2024 21:59-0400 Body height 165.[address] Lexi Barnes MD Work Phone: [facility] 06-11-2024 18:30-0500 Body temperature 98 [degF] Dr. Lexi Barnes MD Work Phone: [facility] 06-11-2024 18:30-0500 Diastolic blood pressure 89 mm[Hg] Dr. Lexi Barnes MD Work Phone: [facility] 06-11-2024 18:30-0500 Heart rate 104 /min Dr. Lexi Barnes MD Work Phone: [facility] 06-11-2024 18:30-0500 Respiratory rate 16 /min Dr. Lexi Barnes MD Work Phone: [facility] 06-11-2024 18:30-0500 SaO2% (BldA) [Mass fraction] 93 % Dr. Lexi Barnes MD Work Phone: [facility] 06-11-2024 18:30-0500 Systolic blood pressure 124 mm[Hg] Dr. Lexi Barnes MD Work Phone: [facility] 06-11-2024 17:22-0500 Inhaled oxygen flow rate 2 L/min Dr. Lexi Barnes MD Work Phone: [facility] 06-11-2024 16:18-0500 Body mass index (BMI) [Ratio] 25.3 kg/m2 Dr. Lexi Barnes MD Work Phone: [facility] 06-11-2024 16:18-0500 Body weight [address] Lexi Barnes MD Work Phone: [facility] 02-16-2024 16:06-0400 Body height 162.6 cm Dany Painter MD Work Phone: [facility] 02-16-2024 16:06-0400 Body mass index (BMI) [Ratio] 26.3 kg/m2 Dany Painter MD Work Phone: [facility] 02-16-2024 16:06-0400 Body temperature 98.4 [degF] Dany Painter MD Work Phone: [facility] 02-16-2024 16:06-0400 Body weight 69.49 kg Dany Painter MD Work Phone: [facility] 02-16-2024 16:06-0400 Diastolic blood pressure 94 mm[Hg] Dany Painter MD Work Phone: [facility] 02-16-2024 16:06-0400 Heart rate 80 /min Dany Painter MD Work Phone: [facility] 02-16-2024 16:06-0400 SaO2% (BldA) [Mass fraction] 99 % Dany Painter MD Work Phone: [facility] 02-16-2024 16:06-0400 Systolic blood pressure 140 mm[Hg] Dany Painter MD Work Phone: [facility] 10-25-2023 22:09-0400 Diastolic Blood Pressure Non-Invasive 109 mm[Hg] YVONNE REICHFIELD DO [facility] 10-25-2023 22:09-0400 Heart rate 86 /min YVONNE REICHFIELD DO [facility] 10-25-2023 22:09-0400 Respiratory rate 23 /min YVONNE REICHFIELD DO [facility] 10-25-2023 22:09-0400 Systolic Blood Pressure Non-Invasive 166 mm[Hg] YVONNE REICHFIELD DO [facility] 10-25-2023 21:01-0400 Heart rate 98 /min YVONNE REICHFIELD DO [facility] 10-25-2023 21:01-0400 Respiratory rate 22 /[facility] 10-25-2023 20:35-0400 Body temperature 96.98 [degF] [facility] 10-25-2023 20:35-0400 Diastolic Blood Pressure Non-Invasive 99 mm[Hg] [facility] 10-25-2023 20:35-0400 Heart rate 101 /min [facility] 10-25-2023 20:35-0400 Respiratory rate 21 /min YVONNE [facility] DO [facility] 10-25-2023 20:35-0400 Systolic Blood Pressure Non-Invasive 167 mm[Hg] [facility] 04-07-2023 14:52-0500 Body height 165.1 cm [facility] 04-07-2023 14:52-0500 Body mass index (BMI) [Ratio] 25.4 kg/m2 [facility] 04-07-2023 14:52-0500 Body temperature 97.5 [degF] [facility] 04-07-2023 14:52-0500 Body weight 69.3 kg [facility] 04-07-2023 14:52-0500 Diastolic blood pressure 95 mm[Hg] [facility] 04-07-2023 14:52-0500 Heart rate 74 /min [facility] 04-07-2023 14:52-0500 Respiratory rate 18 /min [facility] 04-07-2023 14:52-0500 SaO2% (BldA) [Mass fraction] 98 % [facility] 04-07-2023 14:52-0500 Systolic blood pressure 159 mm[Hg] [facility] 05-20-2022 10:27-0500 Body height 165.1 cm No Primary Care Physician [facility] 05-20-2022 10:27-0500 Body mass index (BMI) [Ratio] 27.1 kg/m2 No Primary Care Physician [facility] 05-20-2022 10:27-0500 Body temperature 97.5 [degF] No Primary Care Physician [facility] 05-20-2022 10:27-0500 Body weight 73.93 kg No Primary Care Physician [facility] 05-20-2022 10:27-0500 Diastolic blood pressure 82 mm[Hg] No Primary Care Physician [facility] 05-20-2022 10:27-0500 Heart rate 91 /min No Primary Care Physician [facility] 05-20-2022 10:27-0500 Respiratory rate 18 /min No Primary Care Physician [facility] 05-20-2022 10:27-0500 SaO2% (BldA) [Mass fraction] 97 % No Primary Care Physician [facility] 05-20-2022 10:27-0500 Systolic blood pressure 128 mm[Hg] No Primary Care Physician [facility] Encounters Encounter Date Encounter Type Care Provider Facility Start: 07-23-2024 Non-patient / Non-visit Dr. Rosey Daly MD -[facility] Work Phone: Start: 07-22-2024 ambulatory Lisa Jon ty:[facility] Start: 07-22-2024 End: 07-23-2024 Evaluation and management of inpatient Dr. Lisa Jain DO -[facility] Work Phone: Start: 07-06-2024 ambulatory Lisa Jon ty:[facility] Start: 07-06-2024 End: 07-06-2024 Evaluation and management of inpatient Dr. Lisa Jain DO -[facility] Work Phone: Start: 06-11-2024 End: 06-11-2024 Emergency department patient visit Dr. Douglas Parra-Peyton DO -Emergency Department Work Phone: Start: 05-10-2024 End: 05-10-2024 ambulatory LAUREN CUEVAS Facility:[id number] Start: 04-28-2024 ambulatory CHRISTIANO BROOKS Facility :[facility] Start: 03-29-2024 End: 03-29-[address] Lexi Barnes MD Work Phone: -Laboratory Work Phone: Start: 03-29-2024 End: 03-29-2024 [facility] Start: 02-16-2024 End: 02-16-2024 ambulatory DANY PAINTER Facility:[facility] Start: 02-16-2024 End: 02-16-2024 Patient encounter procedure Dany Painter MD Work Phone: General Surgery Comment on above: Non-recurrent bilate ral inguinal hernia without obstruction or gangrene (Primary Dx) Start: 02-03-2024 End: 02-03-2024 Emergency department patient visit Kirit amelia Facility:[facility] Start: 10-25-2023 End: 10-25-2023 Emergency department [facility] Start: 09-15-2023 End: 09-15-2023 ambulatory [facility] Facility:[facility] Start: 06-16-2023 End: 06-26-2023 ambulatory [facility] Work Phone: Start: 06-16-2023 End: 06-26-2023 Discharged Recurring [facility] Work Phone: Start: 04-07-2023 End: 04-07-2023 Emergency department patient visit [facility] Work Phone: Start: 03-10-2023 End: 03-27-2023 ambulatory [facility] Work Phone: Start: 03-10-2023 End: 03-27-2023 Discharged Recurring [facility] Work Phone: Start: 09-18-2022 End: 09-18-2022 ambulatory [facility] Work Phone: Start: 09-18-2022 End: 09-18-2022 Discharged Recurring [facility] Start: 07-31-2022 End: 08-25-2022 Discharged Recurring [facility] Start: 07-17-2022 End: 07-26-2022 ambulatory No Primary Care Physician [facility] Work Phone: Start: 07-17-2022 End: 07-26-2022 Discharged Recurring No Primary Care Physician [facility] Start: 06-20-2022 End: 06-20-2022 ambulatory No Primary Care Physician [facility] Work Phone: Start: 06-20-2022 End: 06-20-2022 Discharged Recurring No Primary Care Physician [facility] Start: 05-30-2022 End: 05-30-2022 Patient encounter procedure No Primary Care Physician [facility] Start: 05-20-2022 End: 05-20-2022 Patient encounter procedure No Primary Care Physician [facility] Internal Medicine Procedures Date Procedure Procedure Detail Performing Clinician Start: 07-22-[address] Lexi Barnes MD Work Phone: Start: 07-22-2024 SARS-CoV-2, Influenz a & RSV (PCR) Dr. Lexi Barnes MD Work Phone: Start: 07-22-2024 Plain chest X-ray Dr. Carlos Barnes MD Work Phone: Start: 07-05-2024 X-ray of chest, PA a nd lateral views Dr. Lexi Barnes MD Work Phone: Start: 07-05-2024 SARS-CoV-2, Influenz a & RSV (PCR) Dr. Lexi Barnes MD Work Phone: Start: 06-11-2024 X-ray of chest, PA a nd lateral views Dr. Lexi Barnes MD Work Phone: Start: 06-11-2024 SARS-CoV-2, Influenz a & RSV (PCR) Dr. Lexi Barnes MD Work Phone: Start: 10-30-2021 Lipid 1996 panel - Serum or Plasma Dany Painter MD Work Phone: H/O: liver recipient History of liver transplant H/O: liver recipient Liver trans plant recipient Dr. Lisa Jain DO H/O: liver recipient Liver trans plant recipient Dr. Lisa Jain DO Plan of Treatment Date Care Activity Detail Author Start: 10-30-2026 Lipid panel Lipid Screening [facility] Start: 07-23-2024 Patient discharge [facility] Start: 07-22-2024 Gas panel - Arterial blood [facility] Start: 07-22-2024 Following clinical pathway protocol [facility] Start: 07-22-2024 Assessment of risk of venous thromboembolism [facility] Start: 07-22-2024 Insertion of catheter into peripheral vein [facility] Start: 07-22-2024 Measuring intake and output [facility] Start: 07-22-2024 Oxygen therapy [facility] Start: 07-22-2024 Providing care according to standard [facility] Start: 07-22-2024 Provision of activity privileges [facility] Start: 07-22-2024 Referral to service [facility] Start: 07-22-2024 Respiratory pathogens DNA and RNA panel - Respiratory specimen by DANA with probe detection [facility] Start: 07-22-2024 Verification routine [facility] Start: 07-22-2024 Admission procedure [facility] Start: 07-22-2024 End: 07-22-2024 [facility] Start: 07-22-2024 Hospital admission, emergency, from emergency room, medical nature [facility] Start: 07-22-2024 Continuous pulse oximetry [facility] Start: 07-22-2024 Dual pressure spontaneous ventilation support [facility] Start: 07-22-2024 End: 07-22-2024 [facility] Start: 07-22-2024 Inhalation therapy procedure [facility] Start: 07-06-2024 Patient discharge [facility] Start: 07-06-2024 Oxygen therapy [facility] Start: 07-06-2024 End: 07-06-2024 [facility] Start: 07-06-2024 Following clinical pathway protocol [facility] Start: 07-06-2024 Assessment of risk of venous thromboembolism [facility] Start: 07-06-2024 Incentive spirometry [facility] Start: 07-06-2024 Inhalation therapy procedure [facility] Start: 07-06-2024 Insertion of catheter into peripheral vein [facility] Start: 07-06-2024 Measuring intake and output [facility] Start: 07-06-2024 Providing care according to standard [facility] Start: 07-06-2024 Provision of activity privileges [facility] Start: 07-06-2024 Referral to service [facility] Start: 07-06-2024 Gas panel - Venous blood [facility] Start: 07-06-2024 Hospital admission, emergency, from emergency room, medical nature [facility] Start: 07-06-2024 Verification routine [facility] Start: 07-06-2024 Admission procedure [facility] Start: 06-11-2024 [facility] Start: 06-11-2024 [facility] Start: 12-28-2023 Covid-19 Vaccine ( season) Covid-19 Vaccine ( season) [facility] Start: 12-28-2023 Influenza vaccination Influenza Vaccine (#1) [facility] Start: 04-07-2023 [facility] Start: 05-05-2022 Hepatitis B Vaccine (3 of 3 - 19+ 3-dose series) Hepatitis B Vaccine (3 of 3 - 19+ 3-dose series) [facility] Start: 02-07-1999 Shingrix Vaccine (1 of 2) Shingrix Vaccine (1 of 2) [facility] Start: 02-07-1999 Urine microalbumin profile DTaP,Tdap,Td Vaccine (1 - Tdap) [facility] Start: 02-07-1998 Annual PCP Team Chronic Disease Visit Annual PCP Team Chronic Disease Visit [facility] Start: 02-07-1998 BP Controlled (<130/80) BP Controlled (<130/80) [facility] Start: 02-07-1998 HIV screening HIV Screening [facility] Start: 02-07-1998 Spirometry Spirometry [facility] Start: 02-07-1986 Pneumococcal vaccination Pneumococcal Vaccine (1 of 2 - PCV) [facility] Magnesium measurement [facility] Patient Education [facility] Work Phone: Patient referral [facility] Work Phone: Tacrolimus [Mass/vol ume] in Blood [facility] Tacrolimus [Mass/vol ume] in Blood [facility] Troponin T.cardiac [Mass/volume] in Serum or Plasma by High sensitivity method [facility] Troponin T.cardiac [Mass/volume] in Serum or Plasma by High sensitivity method [facility] Immunizations Immunization Date Immunization Notes Care Provider Fa cility 07-06-2024 influenza, seasonal, injectable, preservative free Dr. Lxei Barnes MD Work Phone: [facility] 12-29-2020 Covid (Pfizer) No Primary Ca re Physician [facility] 11-28-2020 Covid (Pfizer) No Primary Ca re Physician [facility] 02-07-2020 influenza, injectabl e, quadrivalent, preservative free [facility] 02-07-2020 influenza, seasonal, injectable No Primary Care Physician [facility] 02-07-2020 influenza, seasonal, injectable, preservative free Dr. Lexi Barnes MD Work Phone: [facility] 02-07-2020 influenza virus vaccine, unspecified formulation Dany Painter MD Work Phone: [facility] 07-19-2014 influenza, seasonal, injectable, preservative free Dr. Lexi Barnes MD Work Phone: [facility] 02-26-2013 Influenza virus vaccine No P [facility] Care Physician [facility] 07-27-2012 pneumococcal vaccine , unspecified formulation No Primary Care Physician [facility] 02-27-2008 influenza virus vaccine, unspecified formulation Dany Painter MD Work Phone: [facility] Payers Date Payer Category Payer Unknown [id number] 2024 Unknown 0 2023 Self-pay [id number] 2022 Unknown [facility] [id number] 2022-Present [phone] [address] [place] [address] Indemnity [id number] 2022 Unknown [id number] 2021 Medicaid MEDICAID OOS GEN NATALIE MEDICAID OOS GENERIC [id number] 2021-Present [phone] [address] [place] [address] Medicaid [id number] 2021 Unknown [id number] 2016 Unknown [facility] [id number] 1980 Unknown [id number] Unknown [id number] Unknown [id number] Unknown [id number] Unknown [id number] Unknown [id number] Unknown [id number] Unknown [id number] Unknown [id number] Unknown [id number] Unknown [id number] Social History Date Type Detail Facility Start: 05-20-2022 End: 04-07-2023 Tobacco smoking status NHIS Unknown if ever smoked [facility] Start: 02-06-2020 None [facility] Start: 05-24-2020 Spouse/ Signif icant Other [facility] Start: 08-10-2020 Non-smoker [facility] Start: 1980 Sex Assigned At Male W [facility] Tobacco smoking status No Smokin g Status Entered [facility] Start: 06-19-2015 End: 07-22-2024 Tobacco smoking status NHIS Never smoked tobacco [facility] Start: 06-19-2015 Tobacco use and exposure Smokeless tobacco non-user [facility] Start: 02-16-2024 Alcoholic beverage intake Ex-drinker (finding) [facility] Start: 04-02-2020 End: 02-16-2024 History of Social function [facility] Start: 04-02-2020 End: 02-16-2024 Tobacco use panel [facility] National Score (1-100), lower number is lower risk Not on file [facility] Start: 02-13-2024 Alcohol 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 10-25-2023 Functional Status Standard Safet y ID band on, Call device within reach, Bed in low position, Wheels locked, Upper/Half-Length side-rails up, Phone within reach, personal items within reach, Bedside Cart Locked, Visitor at bedside [facility] Mental Status Date Assessment Result Facility 07-22-2024 Cognitive function Voice/Name [facility] Work Phone: 07-06-2024 Cognitive function Voice/Name [facility] Work Phone: 10-25-2023 Mental Status Orientation Oriented x 4 [facility] 10-25-2023 Mental [address] [facility] 04-07-2023 Cognitive function Level Of Cons ciousness Awake;Alert;Appropriate;Follow s Commands [facility] Work Phone: Clinical Notes 05-08-2021 to 07-23-2024 Note Date & Type Note Facility 07-23-2024 Discharge summary [facility] 07-23-2024 Note [facility] Medical Records Department [address] [place] [address] Discharge Summary 07/23/24 1230 MR#: [id number] Acct: [id number] Name: DANNY BEDOYA Rep #: [id number] : 1980 44 From: Andrea Daly MD PCP: Dr. Lexi Barnes MD Status:ADM IN [id number] Date of Admission: 07/22/24 Primary Care Physician: Dr. Lexi Barnes MD Reason For Visit: AE ASTHMA WITH ACUTE HYPOXIC RESPIRATORY Diagnosis Discharge Diagnosis (1) Asthma exacerbation: Status: Acute Code(s): J45.901 - Unspecified asthma with (acute) exacerbation Qualifiers: Asthma persistence: unspecified Asthma severity: severe Qualified Code(s): J45.901 - Unspecified asthma with (acute) exacerbation (2) Liver transplant recipient: Status: Acute Code(s): Z94.4 - Liver transplant status (3) History of alcohol abuse: Status: Acute Code(s): F10.11 - Alcohol abuse, in remission (4) Essential hypertension: Status: Acute Code(s): I10 - Essential (primary) hypertension Medications at Discharge Home Medications fluticasone 100 mcg-salmeterol 50 mcg/dose blistr powdr for inhalation 1 ea IH DAILY breathing 01/04/19 amlodipine 10 mg tablet (Norvasc) 10 mg PO DAILY blood pressure 05/20/22 mycophenolate mofetil 500 mg tablet (CellCept) 500 mg PO BID liver transplant 05/20/22 albuterol sulfate 2.5 mg/3 mL (0.083 %) solution for nebulization 2.5 mg (3 mL) inhalation Q4H PRN #25 vials 02/03/24 tacrolimus 1 mg capsule, immediate-release 2 mg PO BID liver transplant 02/03/24 prednisone 20 mg tablet 40 mg (2 x 20 mg) PO DAILY 7 days #14 tabs 07/23/24 Hospital Course Operations None Procedures None Summary of Care Provided Minutes Spent on Discharge: 33 Hospital Course: Per HPI: DANNY BEDOYA, is a 44 M with a past medical history of essential hypertension; on amlodipine, history of EtOH Abuse (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); with cirrhosis, history of liver transplant; on mycophenolate mofetil BID and tacrolimus BID, history of cannabis abuse, GERD; on pantoprazole, history of asthma; on prednisone taper listed allergy to lisinopril (angioedema) and recent admission here from July 06, 2024 with discharge the same day after being diagnosed with AE Asthma complicated by Respiratory Insufficiency who re-presents to [facility] ER complaining of SOB. Mr. Bedoya reports his symptoms began approximately one day prior to admission with the sudden-onset of SOB and wheezing that progressively worsened throughout the day. 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 He also admits to cough productive of sputum that has been clear and is now greenish yellow. He admits he recently finished his course of steroids a few days ago with a subsequent worsening of his symptoms. He denies associated fever, chills, runny nose, nausea, vomiting, diarrhea, constipation, abdominal pain, chest pain, rash or headache. In the ER he was diagnosed with AE Asthma with clinical evidence of Acute Hypoxic Respiratory Failure requiring BiPAP with a CXR negative for acute pathologic changes and he was then admitted to the general medical floor for ongoing care for a stay that is expected to extend beyond 2 midnights. Hospital Course: 1. Acute hypoxic respiratory insufficiency secondary to an acute exacerbation of asthma???44-year-old male with a history of a liver transplant for cirrhosis presented to the hospital with increasing shortness of breath. He had just been in the hospital a couple weeks prior for influenza causing exacerbation of his asthma. He was placed on doxycycline and steroids with breathing treatments, and he had significant improvement very quickly and is on room air today both at rest and with ambulation. 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 Also recommend continuation of his home inhalers and place him on a 7-day course of prednisone with outpatient follow-up with his PCP. He is on antirejection medications for his liver transplant. He was negative for COVID, flu, RSV and his respiratory panel was negative. Chest x-ray was negative for any consolidation or pneumonia. He remained afebrile without a leukocytosis. He expressed understanding the risks and benefits of going home and would like to go home today. 2. History of liver transplant, essential hypertension, are all chronic medical conditions which complicate his care. His home medications were continued where appropriate Physical Exam Narrative General: Alert, Oriented x3, Cooperative, No apparent distress HEENT: Atraumatic, PERRLA, EOMI, Normocephalic Oral: Moist Mucosa Neck: Supple, No JVD Lungs: D (more content not included)... [facility] 07-23-2024 Discharge summary Note Date/Time July 23, 2024 9:29am [facility] Medical Records Department [address] [place] [address] Instructions for Home/Discharge Instructions 07/23/24 0913 MR#: [id number] Acct: [id number] Name: DANNY BEDOYA Rep #:[id number] : 1980 44 From: Andrea hickman MD PCP: Dr. Lexi Barnes MD Status:ADM IN Discharge Instructions Diet Discharge Diet: No restrictions DC O2, CPAP, BIPAP needs Home O2 Discharge instructions: No Dressing / Incision Discharge Activity: Return to Normal Activity Dressing / Incision Call your doctor if you observe: Fever of 101 or Higher, Shortness of breath, Dizziness, Fainting spells, Swelling in the ankles, Chest pain and Increased palpitations (irregular heartbeat) Follow Up Care Test Results: Test results from this visit will be discussed in further detail at your follow-up appointment, if applicable. Discharge Plan Admission Admit Date/Time: 07/22/24 03:40 Attending Provider: Andrea Daly Primary Care Provider: Lexi Barnes Consulting Providers: Lisa Jain Discharge Orders/Prescriptions Prescriptions: New prednisone 20 mg tablet 40 mg PO DAILY 7 Days Qty: 14 0RF Continued amlodipine [Norvasc] 10 mg tablet 10 mg PO DAILY mycophenolate mofetil [CellCept] 500 mg tablet 500 mg PO BID fluticasone propion-salmeterol 1 EACH blister with device 1 ea IH DAILY albuterol sulfate 2.5 mg /3 mL (0.083 %) solution for nebulization 2.5 mg inhalation Q4H PRN Qty: 25 0RF Rx Instructions: Use q4 hours and PRN for wheezing tacrolimus 1 mg capsule 2 mg PO BID Referrals / Follow Up: Lexi Barnes MD [Primary Care Provider] - Within 1 Week Echo Michael NP, TWISTER TENDER PAPER-C [Med Staff - [facility] Practice Prof] - Within 1 Month Disposition Disposition (needs filled in before D/C Order can be placed): Home, Self Care 07/23/24928<Electronically signed by Andrea Daly MD>Andrea Daly MD CC: Dr. Lexi Barnes MD; Dr. Lisa Jain, DO ~ Signed [facility] Work Phone: [phone]) 865-864903-28-2025 Discharge summary [facility] Medical Records Department [address] [place] [address] Instructions for Home/Discharge Instructions 07/23/24912 MR#: [id number] Acct: [id number] Name: DANNY BEDOYA Rep #:[id number] : 1980 44 From: Andrea hickman MD PCP: Dr. Lexi Barnes MD Status:ADM IN Discharge Instructions Diet Discharge Diet: No restrictions DC O2, CPAP, BIPAP needs Home O2 Discharge instructions: No Dressing / Incision Discharge Activity: Return to Normal Activity Dressing / Incision Call your doctor if you observe: Fever of 101 or Higher, Shortness of breath, Dizziness, Fainting spells, Swelling in the ankles, Chest pain and Increased palpitations (irregular heartbeat) Follow Up Care Test Results: Test results from this visit will be discussed in further detail at your follow- up appointment, if applicable. Discharge Plan Admission Admit Date/Time: 07/22/24 03:40 Attending Provider: Andrea Daly Primary Care Provider: Lexi Barnes Consulting Providers: Lisa Jain Discharge Orders/Prescriptions Prescriptions: New prednisone 20 mg tablet 40 mg PO DAILY 7 Days Qty: 14 0RF Continued amlodipine [Norvasc] 10 mg tablet 10 mg PO DAILY mycophenolate mofetil [CellCept] 500 mg tablet 500 mg PO BID fluticasone propion-salmeterol 1 EACH blister with device 1 ea IH DAILY albuterol sulfate 2.5 mg /3 mL (0.083 %) solution for nebulization 2.5 mg inhalation Q4H PRN Qty: 25 0RF Rx Instructions: Use q4 hours and PRN for wheezing tacrolimus 1 mg capsule 2 mg PO BID Referrals / Follow Up: Lexi Barnes MD [Primary Care Provider] - Within 1 Week Echo Michael NP, TWISTER TENDER PAPER-C [Med Staff - [facility] Practice Prof] - Within 1 Month Disposition Disposition (needs filled in before D/C Order can be placed): Home, Self Care 07/23/24 0929Nicshirlene Daly MD CC: Dr. Lexi Barnes MD; Dr. Lisa Jain DO ~ [facility]03-27-2025 History and physical note Author Lisa Wallis [facility] Note Date/Time July 22, 2024 8:1 6am [facility] Medical Records Department [address] [facility] [place] [address] H&P Exam - Hospitalist 07/22/24309 MR#: [id number] Acct: [id number] Name: DANNY BEDOYA Rep #:[id number] : 1980 44 From: Lisa Rivas DO PCP: Dr. Lexi Barnes MD Status:ADM IN Location: [facility] [id number] [facility] - General General Date of Admission: 07/22/24 Date of Service: 07/22/24 Chief Complaint: SOB and Wheezing. 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 Mr. Bedoya reports his symptoms began approximately one day prior to admission with the sudden-onset of SOB and wheezing that progressively worsened throughout the day. 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 He also admits to cough productive of sputum that has been clear and is now greenish yellow. He admits he recently finished his course of steroids a few days ago with a subsequent worsening of his symptoms. He denies associated fever, chills, runny nose, nausea, vomiting, diarrhea, constipation, abdominal pain, chest pain, rash or headache. In the ER he was diagnosed with AE Asthma with clinical evidence of Acute Hypoxic Respiratory Failure requiring BiPAP with a CXR negative for acute pathologic changes and he was then admitted to the general medical floor for ongoing care for a stay that is expected to extend beyond 2 midnights. [facility] Medical History Cirrhosis Asthma Alcohol abuse Angioedema Home Medications ?Medication ?Instructions ?Recorded ?Last Taken ?Type fluticasone 100 mcg-salmeterol 50 1 ea IH DAILY breath ing 01/04/19 07/21/24 History mcg/dose blistr powdr for inhalation amlodipine 10 mg tablet (Norvasc) 10 mg PO DAILY blood pressure 05/20/22 07/21/24 History mycophenolate mofetil 500 mg 500 mg PO BID liver trans plant 05/20/22 07/21/24 History tablet (CellCept) albuterol sulfate 2.5 mg/3 mL 2.5 mg (3 mL) inhalation Q4H PRN 02/03/24 07/22/24 Rx (0.083 %) solution for nebulization #25 vials tacrolimus 1 mg capsule, 2 mg PO BID liver transplant 02/03/24 07/21/24 History immediate-release Allergy/AdvReac Type Severity Reaction Status Date / Time lisinopril Allergy Angioedema Verified 07/05/24 21:59 Family History Father Alcoholism Asthma Mother Asthma Grandmother Cancer brain Surgical History Hx of liver transplant Social History household members: none current occupational status: employed 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 Eyes: Patient denies changes in vision or discharge from eyes. ENT: Patient denies runny nose, sore throat or ear pain. Resp: Patient admits to SOB, cough productive of greenish yellow sputum and wheezing as per HPI. CV: Patient denies chest pain, palpitations, heart racing or LE edema. GI: Patient denies abdominal pain, nausea, vomiting, diarrhea or constipation. : Patient denies dysuria or hematuria. MSK: Patient denies arthralgias or myalgias. Skin: Patient denies rash, abscess, wounds or jaundice. Psych: Patient denies symptoms of uncontrolled depression or anxiety. Neuro: Patient denies headache, paresthesias or focal neurologic deficits. Allergy: Patient denies lip swelling, tongue swelling or urticaria. Hematology: Patient denies easy bleeding or easy bruisability. Endocrinology: Patient denies polyuria, polydipsia, polyphagia or cold/heat intolerance. 14 point ROS otherwise negative except for positives noted above in HPI. Vital Signs Vital Signs Vital Signs: 07/22/24 00:49 07/22/24 00:51 07/22/24 01:01 Temperature 97.9 F Temperature Source Temporal Pulse Rate 126 H 127 H Respiratory Rate 27 H 23 H Respiratory Effort Respiratory Depth Respiratory Pattern Tachypnea Blood Pressure 175/113 H Blood Pressure Mean 133 Pulse Ox 95 96 94 Oxygen Delivery Method Bi-pap Bi-pap Oxygen Flow Rate (L/min) Fraction of Inspired Oxygen (FIO2) 30 30 07/22/24 01:04 07/22/24 01:18 07/22/24 01:28 Temperature 97.7 F L Temperature Source Pulse Rate 104 H 107 H Respiratory Rate 20 H 21 H Respiratory Effort Short of Breath Labored Accessory Muscle Use Head Bobbing Respiratory Depth Shallow Respiratory Pattern Tachypnea Normal Blood Pressure 147/111 H Blood Pressure Mean 123 Pulse Ox 94 Oxygen Delivery Method Room Air Oxygen Flow Rate (L/min) Fraction of Inspired Oxygen (FIO2) 07/22/24 01:28 07/22/24 01:48 07/22/24 02:00 Temperature 97.9 F Temperature Source Oral Pulse Rate 107 H 90 89 Respiratory Rate 18 15 16 Respiratory Effort Respiratory Depth Respiratory Pattern Blood Pressure 147/111 H 130/90 H 122/61 H Blood Pressure Mean 123 103 81 Pulse Ox 94 96 96 Oxygen Delivery Method Bi-pap Bi-pap Bi-pap Oxygen Flow Rate (L/min) Fraction of Inspired Oxygen (FIO2) 07/22/24 02:16 07/22/24 02:56 Temperature Temperature Source Pulse Rate 90 Respiratory Rate 25 H Respiratory Effort Respiratory Depth Respiratory Pattern Blood Pressure 137/83 H Blood Pressure Mean 101 Pulse Ox 95 93 Oxygen Delivery Method Nasal Cannula Nasal Cannula Oxygen Flow Rate (L/min) 2 4 Fraction of Inspired Oxygen (FIO2) Weight Weight: 355 lb 2.635 oz Body Mass Index (BMI) 61.0 Physical Exam Const alert and oriented x3 Constitutional Narrative: Patient noted to have labored respirations. General Appearance: cooperative HEENT normocephalic, head/scalp atraumatic, hearing grossly normal bilaterally and moist oral mucous membranes Eyes PERRL and EOMs intact bilaterally Neck no lymphadenopathy and supple Resp Resp Narrative: Diminished throughout with scattered inspiratory and expiratory wheezing. Auscultation: wheezes Cardio regular rate and regular rhythm GI normal to inspection, nondistended, normoactive bowel sounds, soft to palpation,non-tender and non-distended Extremity normal to inspection, full ROM and no clubbing, cyanosis or edema Skin Skin Narrative: Patient has no evidence of rash, abscess, wounds or jaundice. Neuro oriented x3, CN's II-XII intact bilaterally, moves all extremities and no focal motor deficits Sensorium / Orientation: awake, alert, oriented to person, oriented to place andoriented to time Speech: speech normal Motor Exam: strength 5/5 throughout Psych affect normal Results Medical Records Data Attestation: I reviewed the patient's medical records Lab / Micro Data 07/22/24 00:56 07/22/24 00:56 Labs: Laboratory Results - last 24 hr 07/22/24 00:56: WBC 10.5, RBC 5.40, Hgb 15.9, Hct 45.2, MCV 83.7, MCH 29.4, MCHC35.2, RDW Std Deviation 37.9, RDW Coeff of Christiano 12.7, Plt Count 155, MPV 9.2, Immature Gran % (Auto) 0.600, Neut % (Auto) 70.1 H, Lymph % (Auto) 16.6 L, Van Zandt % (Auto) 7.6, Eos % (Auto) 4.4, Baso % (Auto) 0.7, Absolute Neuts (auto) 7.4, Absolute Lymphs (auto) 1.75, Nucleated RBC % 0, Sodium 141, Potassium 4.1, Chloride 104, Carbon Dioxide 21.8, Anion Gap 15, BUN 23 H, Creatinine 1.21 H, Estim Creat Clear Calc 110.15, Est GFR (MDRD) Non-Af 76, BUN/Creatinine Ratio 19.2, Glucose 94, Calcium 9.6, Troponin T High Sens 10 Micro: Microbiology 07/22/24 01:12 Mucosa - Nose SARS-CoV-2, Influenza & RSV (PCR) - Final ABG Data ABG results: ABG 07/22/24 01:07 Specimen Type ART Sample Site L Radial pH 7.38 Bicarbonate Actual 27.6 H Total CO2 29 Base Excess 3 H O2 Saturation 96 O2 % 30.0 ABG pCO2 46.6 H ABG pO2 86 Aleksandar Test Positive O2 Delivery Device BiPAP Vent Mode Not entered Clinical Comments Imaging Radiology Impression Chest X-Ray 07/22/24 01:01 IMPRESSION: Hyperinflation again noted. No evidence of acute disease. Reading Location: [facility] Assessment & Plan Assessment/Plan (1) Asthma exacerbation: QUALIFIERS: Asthma persistence: unspecified Asthma severity: severe Qualified Code(s): J45.901 - Unspecified asthma with (acute) exacerbation (2) Acute bacterial bronchitis: (3) Acute hypoxic respiratory failure: (4) Hypophosphatemia: (5) Liver transplant recipient: (6) History of alcohol abuse: (7) Essential hypertension: PLAN: Plan 1. 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 Continue IV Solu-Medrol begun in ER plus scheduled and as needed nebulizers. Start doxycycline IV plus mucolytic and probiotic. Give acetaminophen prn pain or fever. Patient counseled to avoid any contact with oven dry cleaner or fumes. 2. Acute Hypoxic Respiratory Failure requiring BiPAP due to #1 - Wean BiPAP as tolerated. 3. Recent admission here from July 06, 2024 with discharge the same day after being diagnosed with AE Asthma complicated by Respiratory Insufficiency with patient recently completing his steroid taper with subsequent acute decline complicating #1 & #2 - Noted. Patient may benefit from longer inpatient stay and extended steroid taper with prescheduled outpatient follow-up with pulmonology to help minimize risk of further serial readmission given his medical complexity and increasingly brittle respiratory status. 4. Hypophosphatemia of 1.8 mmol/L present on admission compounding #1 - #3 - Patient treated with IV K-Phos. 5. History of EtOH Abuse (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); with cirrhosis and subsequent history of liver transplant; on mycophenolate mofetil BID and tacrolimus BID adding to the medical complexity of #1 - #4 - Resume current anti-rejection regimen as before. 5. Essential Hypertension; on amlodipine - Continue amlodipine as previous plusgive prn hydralazine IV prn for systolic blood pressure > 160 mmHg. 6. History of cannabis abuse - Cannabis Cessation will be strongly encouraged. 7. GERD; on pantoprazole - Resume PPI. 8. Listed allergy to lisinopril (angioedema) - Noted. We will avoid LILLIE- inhibitors and ARB's to minimize risk of recurrence. 9. DVT prophylaxis - Lovenox 40 mg sq daily. Total time: Approximately (but not less than) 55 minutes. Charges/Coding Visit Charges Inpatient E&M: 67490 Init Hosp L3 07/22/24 0816 <Electronically signed by Lisa Jain DO> Cosigner Signature (if applicable): CC: Dr. Lexi Barnes MD; Dr. Lisa Jain DO~ Signed [facility] Work Phone: [phone] 665-540103-27-2025 History and physical note [facility] Medical Records Department [address] [place] [address] H&P Exam - Hospitalist 07/22/24 0310 MR#: [id number] Acct: [id number] Name: DANNY BEDOYA Rep #:[id number] : 1980 44 From: Lisa Rivas DO PCP: Dr. Lexi Barnes MD Status:ADM IN Location: [facility] [place] CU083-5 HPI - General General Date of Admission: 07/22/24 Date of Service: 07/22/24 Chief Complaint: SOB and Wheezing. 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 Mr. Bedoya reports his symptoms began approximately one day prior to admission with the sudden-onset of SOB and wheezing that progressively worsened throughout the day. 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 He also admits to cough productive of sputum that has been clear and is now greenish yellow. He admits he recently finished his course of steroids a few days ago with a subsequent worsening of his symptoms. He denies associated fever, chills, runny nose, nausea, vomiting, diarrhea, constipation, abdominal pain, chest pain, rash or headache. In the ER he was diagnosed with AE Asthma with clinical evidence of Acute Hypoxic Respiratory Failure requiring BiPAP with a CXR negative for acute pathologic changes and he was then admitted to the general medical floor for ongoing care for a stay that is expected to extend beyond 2 midnights. [facility] Medical History Cirrhosis Asthma Alcohol abuse Angioedema Home Medications ?Medication ?Instructions ?Recorded ?Last Taken ?Type fluticasone 100 mcg-salmeterol 50 1 ea IH DAILY breath ing 01/04/19 07/21/24 History mcg/dose blistr powdr for inhalation amlodipine 10 mg tablet (Norvasc) 10 mg PO DAILY blood pressure 05/20/22 07/21/24 History mycophenolate mofetil 500 mg 500 mg PO BID liver trans plant 05/20/22 07/21/24 History tablet (CellCept) albuterol sulfate 2.5 mg/3 mL 2.5 mg (3 mL) inhalation Q4H PRN 02/03/24 07/22/24 Rx (0.083 %) solution for nebulization #25 vials tacrolimus 1 mg capsule, 2 mg PO BID liver transplant 02/03/24 07/21/24 History immediate-release Allergy/AdvReac Type Severity Reaction Status Date / Time lisinopril Allergy Angioedema Verified 07/05/24 21:59 Family History Father Alcoholism Asthma Mother Asthma Grandmother Cancer brain Surgical History Hx of liver transplant Social History household members: none 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 Eyes: Patient denies changes in vision or discharge from eyes. ENT: Patient denies runny nose, sore throat or ear pain. Resp: Patient admits to SOB, cough productive of greenish yellow sputum and wheezing as per HPI. CV: Patient denies chest pain, palpitations, heart racing or LE edema. GI: Patient denies abdominal pain, nausea, vomiting, diarrhea or constipation. : Patient denies dysuria or hematuria. MSK: Patient denies arthralgias or myalgias. Skin: Patient denies rash, abscess, wounds or jaundice. Psych: Patient denies symptoms of uncontrolled depression or anxiety. Neuro: Patient denies headache, paresthesias or focal neurologic deficits. Allergy: Patient denies lip swelling, tongue swelling or urticaria. Hematology: Patient denies easy bleeding or easy bruisability. Endocrinology: Patient denies polyuria, polydipsia, polyphagia or cold/heat intolerance. 14 point ROS otherwise negative except for positives noted above in HPI. Vital Signs Vital Signs Vital Signs: 07/22/24 00:49 07/22/24 00:51 07/22/24 01:01 Temperature 97.9 F Temperature Source Temporal Pulse Rate 126 H 127 H Respiratory Rate 27 H 23 H Respiratory Effort Respiratory Depth Respiratory Pattern Tachypnea Blood Pressure 175/113 H Blood Pressure Mean 133 Pulse Ox 95 96 94 Oxygen Delivery Method Bi-pap Bi-pap Oxygen Flow Rate (L/min) Fraction of Inspired Oxygen (FIO2) 30 30 07/22/24 01:04 07/22/24 01:18 07/22/24 01:28 Temperature 97.7 F L Temperature Source Pulse Rate 104 H 107 H Respiratory Rate 20 H 21 H Respiratory Effort Short of Breath Labored Accessory Muscle Use Head Bobbing Respiratory Depth Shallow Respiratory Pattern Tachypnea Normal Blood Pressure 147/111 H Blood Pressure Mean 123 Pulse Ox 94 Oxygen Delivery Method Room Air Oxygen Flow Rate (L/min) Fraction of Inspired Oxygen (FIO2) 07/22/24 01:28 07/22/24 01:48 07/22/24 02:00 Temperature 97.9 F Temperature Source Oral Pulse Rate 107 H 90 89 Respiratory Rate 18 15 16 Respiratory Effort Respiratory Depth Respiratory Pattern Blood Pressure 147/111 H 130/90 H 122/61 H Blood Pressure Mean 123 103 81 Pulse Ox 94 96 96 Oxygen Delivery Method Bi-pap Bi-pap Bi-pap Oxygen Flow Rate (L/min) Fraction of Inspired Oxygen (FIO2) 07/22/24 02:16 07/22/24 02:56 Temperature Temperature Source Pulse Rate 90 Respiratory Rate 25 H Respiratory Effort Respiratory Depth Respiratory Pattern Blood Pressure 137/83 H Blood Pressure Mean 101 Pulse Ox 95 93 Oxygen Delivery Method Nasal Cannula Nasal Cannula Oxygen Flow Rate (L/min) 2 4 Fraction of Inspired Oxygen (FIO2) Weight Weight: 355 lb 2.635 oz Body Mass Index (BMI) 61.0 Physical Exam Const alert and oriented x3 Constitutional Narrative: Patient noted to have labored respirations. General Appearance: cooperative HEENT normocephalic, head/scalp atraumatic, hearing grossly normal bilaterally and moist oral mucous membranes Eyes PERRL and EOMs intact bilaterally Neck no lymphadenopathy and supple Resp Resp Narrative: Diminished throughout with scattered inspiratory and expiratory wheezing. Auscultation: wheezes Cardio regular rate and regular rhythm GI normal to inspection, nondistended, normoactive bowel sounds, soft to palpation,non-tender and non-distended Extremity normal to inspection, full ROM and no clubbing, cyanosis or edema Skin Skin Narrative: Patient has no evidence of rash, abscess, wounds or jaundice. Neuro oriented x3, CN's II-XII intact bilaterally, moves all extremities and no focal motor deficits Sensorium / Orientation: awake, alert, oriented to person, oriented to place andoriented to time Speech: speech normal Motor Exam: strength 5/5 throughout Psych affect normal Results Medical Records Data Attestation: I reviewed the patient's medical records Lab / Micro Data 07/22/24 00:56 07/22/24 00:56 Labs: Laboratory Results - last 24 hr 07/22/24 00:56: WBC 10.5, RBC 5.40, Hgb 15.9, Hct 45.2, MCV 83.7, MCH 29.4, MCHC35.2, RDW Std Deviation 37.9, RDW Coeff of Christiano 12.7, Plt Count 155, MPV 9.2, Immature Gran % (Auto) 0.600, Neut % (Auto) 70.1 H, Lymph % (Auto) 16.6 L, Van Zandt % (Auto) 7.6, Eos % (Auto) 4.4, Baso % (Auto) 0.7, Absolute Neuts (auto) 7.4, Absolute Lymphs (auto) 1.75, Nucleated RBC % 0, Sodium 141, Potassium 4.1, Chloride 104, Carbon Dioxide 21.8, Anion Gap 15, BUN 23 H, Creatinine 1.21 H, Estim Creat Clear Calc 110.15, Est GFR (MDRD) Non-Af 76, BUN/Creatinine Ratio 19.2, Glucose 94, Calcium 9.6, Troponin T High Sens 10 Micro: Microbiology 07/22/24 01:12 Mucosa - Nose SARS-CoV-2, Influenza & RSV (PCR) - Final ABG Data ABG results: ABG 07/22/24 01:07 Specimen Type ART Sample Site L Radial pH 7.38 Bicarbonate Actual 27.6 H Total CO2 29 Base Excess 3 H O2 Saturation 96 O2 % 30.0 ABG pCO2 46.6 H ABG pO2 86 Aleksandar Test Positive O2 Delivery Device BiPAP Vent Mode Not entered Clinical Comments Imaging Radiology Impression Chest X-Ray 07/22/24 01:01 IMPRESSION: Hyperinflation again noted. No evidence of acute disease. Reading Location: [facility] Assessment & Plan Assessment/Plan (1) Asthma exacerbation: QUALIFIERS: Asthma persistence: unspecified Asthma severity: severe Qualified Code(s): J45.901 - Unspecified asthma with (acute) exacerbation (2) Acute bacterial bronchitis: (3) Acute hypoxic respiratory failure: (4) Hypophosphatemia: (5) Liver transplant recipient: (6) History of alcohol abuse: (7) Essential hypertension: PLAN: Plan 1. 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 Continue IV Solu-Medrol begun in ER plus scheduled and as needed nebulizers. Start doxycycline IV plus mucolytic and probiotic. Give acetaminophen prn pain or fever. Patient counseled to avoid any contact with oven dry cleaner or fumes. 2. Acute Hypoxic Respiratory Failure requiring BiPAP due to #1 - Wean BiPAP as tolerated. 3. Recent admission here from July 06, 2024 with discharge the same day after being diagnosed withAE Asthma complicated by Respiratory Insufficiency with patient recently completing his steroid taper with subsequent acute decline complicating #1 & #2 - Noted. Patient may benefit from longer inpatient stay and extended steroid taper with prescheduled outpatient follow-up with pulmonology to help minimize risk of further serial readmission given his medical complexity and increasingly brittle respiratory status. 4. Hypophosphatemia of 1.8 mmol/L present on admission compounding #1 - #3 - Patient treated with IV K-Phos. 5. History of EtOH Abuse (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); with cirrhosis and subsequent history of liver transplant; on mycophenolate mofetil BID and tacrolimus BID adding to the medical complexity of #1 - #4 - Resumecurrent anti-rejection regimen as before. 5. Essential Hypertension; on amlodipine - Continue amlodipine as previous plusgive prn hydralazineIV prn for systolic blood pressure > 160 mmHg. 6. History of cannabis abuse - Cannabis Cessation will be strongly encouraged. 7. GERD; on pantoprazole - Resume PPI. 8. Listed allergy to lisinopril (angioedema) - Noted. We will avoid LILLIE- inhibitors and ARB's to minimize risk of recurrence. 9. DVT prophylaxis - Lovenox 40 mg sq daily. Total time: Approximately (but not less than) 55 minutes. Charges/Coding Visit Charges Inpatient E&M: 47280 Init Hosp L3 07/22/24 0816 Cosigner Signature (if applicable): CC: Dr. Lexi Barnes MD; Dr. Lisa Jain, DO~ Signed [facility]03-27-2025 Discharge summary Author Natalie Jeffery [facility] Note Date/Time July 22, 2024 6:0 2am [facility] Medical Records Department [address] [place] [address] Emergency Department Summary 07/22/24 MR#: [id number] Acct: [id number] Name: DANNY BEDOYA Rep #:[id number] : 1980 44 From: Natalie Hu PCP: Dr. Lexi Barnes MD Status:ADM IN Location: [place] [address] HPI History of Present Illness Chief Complaint: Shortness of Breath Informant: patient Onset/Context/Timing Onset: Today Context: sudden Timing: Continuous Quality: Positive for Dyspnea on exertion, Orthopnea and Wheezing Worsened by: Exertion and Lying flat Relieved by: - (Steroids) Associated Symptoms cough, clear sputum, yellow sputum and green sputum; Negative for rhinorrhea, post nasal drip, ear pain, fever, sore throat, chills or sweats Chest Pain: Positive for None Narrative Narrative: Patient presents with shortness of breath that has been getting worse throughoutthe day today. Patient states it began rather suddenly. Patient states his breathing is worse with any exertion and with laying flat. Patient states he also feels like he is wheezing. Patient states he is coughing up some yellow, green, and clear sputum. Patient denies any fevers or chills. Patient denies any chest pain. Patient denies any sore throat or rhinorrhea. Patient states that steroids usually help with his breathing. Patient states he is not currently on steroids. PE Risk Factors: Negative for Cancer, OCP + Smoking + > 35, Prior DVT or PE, Recent immobilization, Recent surgery or Recent travel [facility] Medical History Cirrhosis Asthma Alcohol abuse Angioedema Home Medications ?Medication ?Instructions ?Recorded ?Last Taken ?Type fluticasone 100 mcg-salmeterol 50 1 ea IH DAILY breath ing 01/04/19 Unknown History mcg/dose blistr powdr for inhalation amlodipine 10 mg tablet (Norvasc) 10 mg PO DAILY 05/20 Unknown History mycophenolate mofetil 500 mg 500 mg PO BID 05/20/22 Un known History tablet (CellCept) tacrolimus 1 mg capsule,extended 2 mg PO BID liver Unknown History release 24 hr albuterol sulfate 2.5 mg/3 mL 2.5 mg (3 mL) inhalation Q4H PRN 02/03/24 Unknown Rx (0.083 %) solution for nebulization #25 vials tacrolimus 1 mg capsule, 2 mg PO BID 02/03/24 Unknown History immediate-release Allergy/AdvReac Type Severity Reaction Status Date / Time lisinopril Allergy Angioedema Verified 07/05/24 21:59 Family History Father Alcoholism Asthma Mother Asthma Grandmother Cancer brain Surgical History Hx of liver transplant Social History household members: none current occupational status: employed 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 Smoking Status: Never smoker Electronic Cigarette Use: not used alcohol intake: former details: former heavy drinker, 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 substance use type: marijuana what type of physical activity do you participate in: none do you feel safe at home: Yes ROS ROS ED Constitutional Constitutional ED: Denies chills or fever(s) Eyes Eyes: Denies blurry vision or change in vision ENT ENT ED: Denies rhinorrhea or sore throat Cardiovascular Cardiovascular: Denies chest pain or palpitations Respiratory/Chest Respiratory/Chest: Reports cough and dyspnea Gastrointestinal Gastrointestinal: Denies nausea or vomiting Genitourinary Genitourinary ED: Denies dysuria or hematuria Musculoskeletal Musculoskeletal: Denies back pain or neck pain Integumentary Denies abscess or rash Neurologic Neurologic: Denies headache(s) or weakness Allergic/Immunologic Allergic/Immunologic ED: Denies mouth swelling or urticaria EXAM Physical Exam Const Vital Signs: 07/22/24 00:49 07/22/24 00:51 07/22/24 01:01 Temperature 97.9 F Temperature Source Temporal Pulse Rate 126 H 127 H Respiratory Rate 27 H 23 H Respiratory Effort Respiratory Depth Respiratory Pattern Tachypnea Blood Pressure 175/113 H Blood Pressure Mean 133 Pulse Ox 95 96 94 Oxygen Delivery Method Bi-pap Bi-pap Oxygen Flow Rate (L/min) Fraction of Inspired Oxygen (FIO2) 30 30 07/22/24 01:04 07/22/24 01:18 07/22/24 01:28 Temperature 97.7 F L Temperature Source Pulse Rate 104 H 107 H Respiratory Rate 20 H 21 H Respiratory Effort Short of Breath Labored Accessory Muscle Use Head Bobbing Respiratory Depth Shallow Respiratory Pattern Tachypnea Normal Blood Pressure 147/111 H Blood Pressure Mean 123 Pulse Ox 94 Oxygen Delivery Method Room Air Oxygen Flow Rate (L/min) Fraction of Inspired Oxygen (FIO2) 07/22/24 01:28 07/22/24 01:48 07/22/24 02:00 Temperature 97.9 F Temperature Source Oral Pulse Rate 107 H 90 89 Respiratory Rate 18 15 16 Respiratory Effort Respiratory Depth Respiratory Pattern Blood Pressure 147/111 H 130/90 H 122/61 H Blood Pressure Mean 123 103 81 Pulse Ox 94 96 96 Oxygen Delivery Method Bi-pap Bi-pap Bi-pap Oxygen Flow Rate (L/min) Fraction of Inspired Oxygen (FIO2) 07/22/24 02:16 07/22/24 02:56 Temperature Temperature Source Pulse Rate 90 Respiratory Rate 25 H Respiratory Effort Respiratory Depth Respiratory Pattern Blood Pressure 137/83 H Blood Pressure Mean 101 Pulse Ox 95 93 Oxygen Delivery Method Nasal Cannula Nasal Cannula Oxygen Flow Rate (L/min) 2 4 Fraction of Inspired Oxygen (FIO2) Positive well nourished and well developed General Appearance ED: well developed and NAD HEENT Reports moist mucous membranes atraumatic Neck supple and no meningeal signs Resp Auscultation: wheezes expiratory wheezes, inspiratory wheezes and throughout Cardio regular rhythm Rate: tachycardic GI non-tender and non-distended Palpation: soft Extremity General Extremety ED: Negative for edema or tenderness General Extremity: Negative for edema Neuro oriented x3, CN's II-XII intact bilaterally and no sensory deficits noted Aleshia Coma Scale: document GCS findings Spontaneous Obeys Commands Oriented 15 Sensorium / Orientation: alert Motor Exam: strength 5/5 throughout Psych mental status grossly normal MDM MDM MDM Narrative Medical decision making narrative: Differential diagnosis includes asthma exacerbation, pneumonia, bronchitis, congestive heart failure, cardiac dysrhythmia, cardiac ischemia, and viral upperrespiratory infection. EKG will be obtained to assess for cardiac dysrhythmia and cardiac ischemia. Chest x-ray will be obtained to assess for pneumonia and congestive heart failure. Arterial blood gas will be obtained to assess for pH and oxygenation status. CBC will be obtained to assess for leukocytosis and anemia. Basic metabolic profile will be obtained to assess for electrolyte abnormality renal function. High-sensitivity troponin will be obtained to assess for cardiac ischemia. COVID-19, influenza, and RSV PCR will be obtained to assess for viral illness. History & Record Review Additional record(s) reviewed:: Prior inpatient record, Prior ED visit and Priorlabs Lab Data Attestation: I reviewed the patient's lab results. Lab results narrative: CBC was reviewed and was within normal limits. Basic metabolic profile was reviewed. BUN was slightly elevated at 23 and creatinine was 1.21. The remainder is within normal limits. High-sensitivity troponin was reviewed and was normal at 10. COVID-19 PCR was reviewed and was negative. Influenza PCR was reviewed and was negative for influenza A and influenza B. RSV PCR was reviewed and was negative. Labs: Laboratory Results - last 24 hr 07/22/24 00:56 WBC 10.5 RBC 5.40 Hgb 15.9 Hct 45.2 MCV 83.7 MCH 29.4 MCHC 35.2 RDW Std Deviation 37.9 RDW Coeff of Christiano 12.7 Plt Count 155 MPV 9.2 Immature Gran % (Auto) 0.600 Neut % (Auto) 70.1 H Lymph % (Auto) 16.6 L Van Zandt % (Auto) 7.6 Eos % (Auto) 4.4 Baso % (Auto) 0.7 Absolute Neuts (auto) 7.4 Absolute Lymphs (auto) 1.75 Nucleated RBC % 0 Sodium 141 Potassium 4.1 Chloride 104 Carbon Dioxide 21.8 Anion Gap 15 BUN 23 H Creatinine 1.21 H Estim Creat Clear Calc 110.15 Est GFR (MDRD) Non-Af 76 BUN/Creatinine Ratio 19.2 Glucose 94 Calcium 9.6 Troponin T High Sens 10 ABG Data Attestation: I personally reviewed and interpreted this ABG as follows: Interpretation: Arterial blood gas was reviewed. pH was 7.38, pCO2 is 46.6, pO2 was 86.4, bicarb was 27.6, and O2 sat was 96.3% on BiPAP with an FiO2 of 30%. ABG results: ABG 07/22/24 01:07 Specimen Type ART Sample Site L Radial pH 7.38 Bicarbonate Actual 27.6 H Total CO2 29 Base Excess 3 H O2 Saturation 96 O2 % 30.0 ABG pCO2 46.6 H ABG pO2 86 Aleksandar Test Positive O2 Delivery Device BiPAP Vent Mode Not entered Clinical Comments Radiography Chest X-Ray - ED: 1 View, Read by ED Physician, Read by Radiologist and No AcuteDisease Diagnostic Testing: Clinical Impression(s) from Imaging Studies Chest X-Ray 07/22/24 01:01 IMPRESSION: Hyperinflation again noted. No evidence of acute disease. Reading Location: [facility] Portable 1 view chest x-ray was obtained. On my independent interpretation, lung newsome are hyperinflated. There is normal cardiac silhouette. Bony thoraxis normal. There is no acute process noted. Radiologist also interpreted the x-ray and agrees. EKG Initial EKG: Attestation: I personally reviewed and interpreted this EKG as follows: Interpretation: No Acute Injury Pattern and Sinus Tachycardia (104) Comments: EKG was obtained. On my independent interpretation, it showed asinus tachycardia with a rate of 104. NH interval, QRS interval, and QTc intervals were all normal. [place] was normal. There are no acute ST or T wave changes. Prior EKG tracings: available for review Prior: Unchanged (02/03/2024) Management Discussion w/another healthcare provider: Hospitalist (Dr. Garcia) Treatment and Re-Evaluation :: Patient was given a DuoNeb aerosol here. Patient was given a dose of Solu- Medrol. Patient was placed on CPAP by EMS. Patient was continued on BiPAP here. Because of the tachycardia and tachypnea initially, patient did trigger asepsis alert. However, patient is afebrile and his vital signs improved after respiratory treatments. I do not feel this is an infectious etiology or sepsis. Patient was feeling better. Patient no longer requires BiPAP. Patient is on 4L nasal cannula. Patient states he does not wear oxygen at home. Because of the need for oxygen, I will discuss case with the hospitalist for admission. Hewill admit the patient to his service. Patient understood and was agreeable with plan. All questions were answered. Discharge Plan Triage Chief Complaint: Shortness of Breath ED Provider: Natalie Jeffery Dx/Rx/DC Orders Clinical Impression: Asthma exacerbation, Hypoxia Prescriptions: No Action amlodipine [Norvasc] 10 mg tablet 10 mg PO DAILY tacrolimus 1 mg capsule,extended release 24hr 2 mg PO BID Rx Instructions: must administer in the morning on an empty stomach, 1 hour before or 2 hours after a meal mycophenolate mofetil [CellCept] 500 mg tablet 500 mg PO BID fluticasone propion-salmeterol 1 EACH blister with device 1 ea IH DAILY albuterol sulfate 2.5 mg /3 mL (0.083 %) solution for nebulization 2.5 mg inhalation Q4H PRN Qty: 25 0RF Rx Instructions: Use q4 hours and PRN for wheezing tacrolimus 1 mg capsule 2 mg PO BID Primary Care Provider: Lexi Barnes Referrals: Lexi Barnes MD [Primary Care Provider] - Print Language: Stateless Disposition Disposition: Acute Care Hospital [facility] What to do if you have Problems For any increased pain, shortness of breath, bleeding, nausea or vomiting, chestpain, or any unexpected problems, contact your Primary Care Provider. Call [facility] ([phone]) or report to the closest Emergency Room. Call 911 if necessary. 07/22/24 0602 <Electronically signed by Natalie Jeffery DO> Cosigner Signature (if applicable): CC: Dr. Lexi Barnes MD ~ Signed [facility] Work Phone: [phone] Discharge summary [facility] Medical Records Department [address] [place] [address] Emergency Department Summary 07/22/24 MR#: [id number] Acct: [id number] Name: DANNY BEDOYA Rep #:[id number] : 1980 44 From: Natalie Hu PCP: Dr. Lexi Barnes MD Status:ADM IN Location: [place] [id number] HPI History of Present Illness Chief Complaint: Shortness of Breath Informant: patient Onset/Context/Timing Onset: Today Context: sudden Timing: Continuous Quality: Positive for Dyspnea on exertion, Orthopnea and Wheezing Worsened by: Exertion and Lying flat Relieved by: - (Steroids) Associated Symptoms cough, clear sputum, yellow sputum and green sputum; Negative for rhinorrhea, post nasal drip, ear pain, fever, sore throat, chills or sweats Chest Pain: Positive for None Narrative Narrative: Patient presents with shortness of breath that has been getting worse throughoutthe day today. Patient states it began rather suddenly. Patient states his breathing is worse with any exertion and with laying flat. Patient states he also feels like he is wheezing. Patient states he is coughing up some yellow, green, and clear sputum. Patient denies any fevers or chills. Patient denies any chest pain. Patient denies any sore throat or rhinorrhea. Patient states that steroids usually help with hisbreathing. Patient states he is not currently on steroids. PE Risk Factors: Negative for Cancer, OCP + Smoking + > 35, Prior DVT or PE, Recent immobilization, Recent surgery or Recent travel [facility] Medical History Cirrhosis Asthma Alcohol abuse Angioedema Home Medications ?Medication ?Instructions ?Recorded ?Last Taken ?Type fluticasone 100 mcg-salmeterol 50 1 ea IH DAILY breath ing 01/04/19 Unknown History mcg/dose blistr powdr for inhalation amlodipine 10 mg tablet (Norvasc) 10 mg PO DAILY 05/20 Unknown History mycophenolate mofetil 500 mg 500 mg PO BID 05/20/22 Un known History tablet (CellCept) tacrolimus 1 mg capsule,extended 2 mg PO BID liver Unknown History release 24 hr albuterol sulfate 2.5 mg/3 mL 2.5 mg (3 mL) inhalation Q4H PRN 02/03/24 Unknown Rx (0.083 %) solution for nebulization #25 vials tacrolimus 1 mg capsule, 2 mg PO BID 02/03/24 Unknown History immediate-release Allergy/AdvReac Type Severity Reaction Status Date / Time lisinopril Allergy Angioedema Verified 07/05/24 21:59 Family History Father Alcoholism Asthma Mother Asthma Grandmother Cancer brain Surgical History Hx of liver transplant Social History household members: none current occupational status: employed 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 [employer] Smoking Status: Never smoker Electronic Cigarette Use: not used alcohol intake: former details: former heavy drinker, 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 substance use type: marijuana what type of physical activity do you participate in: none do you feel safe at home: Yes ROS ROS ED Constitutional Constitutional ED: Denies chills or fever(s) Eyes Eyes: Denies blurry vision or change in vision ENT ENT ED: Denies rhinorrhea or sore throat Cardiovascular Cardiovascular: Denies chest pain or palpitations Respiratory/Chest Respiratory/Chest: Reports cough and dyspnea Gastrointestinal Gastrointestinal: Denies nausea or vomiting Genitourinary Genitourinary ED: Denies dysuria or hematuria Musculoskeletal Musculoskeletal: Denies back pain or neck pain Integumentary Denies abscess or rash Neurologic Neurologic: Denies headache(s) or weakness Allergic/Immunologic Allergic/Immunologic ED: Denies mouth swelling or urticaria EXAM Physical Exam Const Vital Signs: 07/22/24 00:49 07/22/24 00:51 07/22/24 01:01 Temperature 97.9 F Temperature Source Temporal Pulse Rate 126 H 127 H Respiratory Rate 27 H 23 H Respiratory Effort Respiratory Depth Respiratory Pattern Tachypnea Blood Pressure 175/113 H Blood Pressure Mean 133 Pulse Ox 95 96 94 Oxygen Delivery Method Bi-pap Bi-pap Oxygen Flow Rate (L/min) Fraction of Inspired Oxygen (FIO2) 30 30 07/22/24 01:04 07/22/24 01:18 07/22/24 01:28 Temperature 97.7 F L Temperature Source Pulse Rate 104 H 107 H Respiratory Rate 20 H 21 H Respiratory Effort Short of Breath Labored Accessory Muscle Use Head [place] Respiratory Depth Shallow Respiratory Pattern Tachypnea Normal Blood Pressure 147/111 H Blood Pressure Mean 123 Pulse Ox 94 Oxygen Delivery Method Room Air Oxygen Flow Rate (L/min) Fraction of Inspired Oxygen (FIO2) 07/22/24 01:28 07/22/24 01:48 07/22/24 02:00 Temperature 97.9 F Temperature Source Oral Pulse Rate 107 H 90 89 Respiratory Rate 18 15 16 Respiratory Effort Respiratory Depth Respiratory Pattern Blood Pressure 147/111 H 130/90 H 122/61 H Blood Pressure Mean 123 103 81 Pulse Ox 94 96 96 Oxygen Delivery Method Bi-pap Bi-pap Bi-pap Oxygen Flow Rate (L/min) Fraction of Inspired Oxygen (FIO2) 07/22/24 02:16 07/22/24 02:56 Temperature Temperature Source Pulse Rate 90 Respiratory Rate 25 H Respiratory Effort Respiratory Depth Respiratory Pattern Blood Pressure 137/83 H Blood Pressure Mean 101 Pulse Ox 95 93 Oxygen Delivery Method Nasal Cannula Nasal Cannula Oxygen Flow Rate (L/min) 2 4 Fraction of Inspired Oxygen (FIO2) Positive well nourished and well developed General Appearance ED: well developed and NAD HEENT Reports moist mucous membranes atraumatic Neck supple and no meningeal signs Resp Auscultation: wheezes expiratory wheezes, inspiratory wheezes and throughout Cardio regular rhythm Rate: tachycardic GI non-tender and non-distended Palpation: soft Extremity General Extremety ED: Negative for edema or tenderness General Extremity: Negative for edema Neuro oriented x3, CN's II-XII intact bilaterally and no sensory deficits noted Aleshia Coma Scale: document GCS findings Spontaneous Obeys Commands Oriented 15 Sensorium / Orientation: alert Motor Exam: strength 5/5 throughout Psych mental status grossly normal MDM MDM MDM Narrative Medical decision making narrative: Differential diagnosis includes asthma exacerbation, pneumonia, bronchitis, congestive heart failure, cardiac dysrhythmia, cardiac ischemia, and viral upperrespiratory infection. EKG will be obtainedto assess for cardiac dysrhythmia and cardiac ischemia. Chest x-ray will be obtained to assess for p neumonia and congestive heart failure. Arterial blood gas will be obtained to assess for pH and oxygenation status. CBC will be obtained to assess for leukocytosis and anemia. Basic metabolic profilewill be obtained to assess for electrolyte abnormality renal function. High-sensitivity troponin will be obtained to assess for cardiac ischemia. COVID-19, influenza, and RSV PCR will be obtained to assess for viral illness. History & Record Review Additional record(s) reviewed:: Prior inpatient record, Prior ED visit and Priorlabs Lab Data Attestation: I reviewed the patient's lab results. Lab results narrative: CBC was reviewed and was within normal limits. Basic metabolic profile was reviewed. BUN was slightly elevated at 23 and creatinine was 1.21. The remainder is within normal limits. High-sensitivity troponin was reviewed and was normal at 10. COVID-19 PCR was reviewed and was negative. Influenza PCRwas reviewed and was negative for influenza A and influenza B. RSV PCR was reviewed and was negative. Labs: Laboratory Results - last 24 hr 07/22/24 00:56 WBC 10.5 RBC 5.40 Hgb 15.9 Hct 45.2 MCV 83.7 MCH 29.4 MCHC 35.2 RDW Std Deviation 37.9 RDW Coeff of Christiano 12.7 Plt Count 155 MPV 9.2 Immature Gran % (Auto) 0.600 Neut % (Auto) 70.1 H Lymph % (Auto) 16.6 L Van Zandt % (Auto) 7.6 Eos % (Auto) 4.4 Baso % (Auto) 0.7 Absolute Neuts (auto) 7.4 Absolute Lymphs (auto) 1.75 Nucleated RBC % 0 Sodium 141 Potassium 4.1 Chloride 104 Carbon Dioxide 21.8 Anion Gap 15 BUN 23 H Creatinine 1.21 H Estim Creat Clear Calc 110.15 Est GFR (MDRD) Non-Af 76 BUN/Creatinine Ratio 19.2 Glucose 94 Calcium 9.6 Troponin T High Sens 10 ABG Data Attestation: I personally reviewed and interpreted this ABG as follows: Interpretation: Arterial blood gas was reviewed. pH was 7.38, pCO2 is 46.6, pO2 was 86.4, bicarb was 27.6, and O2 sat was 96.3% on BiPAP with an FiO2 of 30%. ABG results: ABG 07/22/24 01:07 Specimen Type ART Sample Site L Radial pH 7.38 Bicarbonate Actual 27.6 H Total CO2 29 Base Excess 3 H O2 Saturation 96 O2 % 30.0 ABG pCO2 46.6 H ABG pO2 86 Aleksandar Test Positive O2 Delivery Device BiPAP Vent Mode Not entered Clinical Comments Radiography Chest X-Ray - ED: 1 View, Read by ED Physician, Read by Radiologist and No AcuteDisease Diagnostic Testing: Clinical Impression(s) from Imaging Studies Chest X-Ray 07/22/24 01:01 IMPRESSION: Hyperinflation again noted. No evidence of acute disease. Reading Location: [facility] Portable 1 view chest x-ray was obtained. On my independent interpretation, lung newsome are hyperinflated. There is normal cardiac silhouette. Bony thoraxis normal. There is no acute process noted. Radiologist also interpreted the x-ray and agrees. EKG Initial EKG: Attestation: I personally reviewed and interpreted this EKG as follows: Interpretation: No Acute Injury Pattern and Sinus Tachycardia (104) Comments: EKG was obtained. On my independent interpretation, it showed asinus tachycardia with a rate of 104. NH interval, QRS interval, and QTc intervals were all normal. [place] was normal. There areno acute ST or T wave changes. Prior EKG tracings: available for review Prior: Unchanged (02/03/2024) Management Discussion w/another healthcare provider: Hospitalist (Dr. Garcia) Treatment and Re-Evaluation :: Patient was given a DuoNeb aerosol here. Patient was given a dose of Solu- Medrol. Patient was placed on CPAP by EMS. Patient was continued on BiPAP here. Because of the tachycardia and tachypnea initially, patient did trigger asepsis alert. However, patient is afebrile and his vital signs improved after respiratory treatments. I do not feel this is an infectious etiology or sepsis. Patient was feeling better. Patient no longer requires BiPAP. Patient is on 4L nasal cannula. Patient states he does not wear oxygen at home. Because of the need for oxygen, I will discuss case with the hospitalistfor admission. Hewill admit the patient to his service. Patient understood and was agreeable with pl stephanie. All questions were answered. Discharge Plan Triage Chief Complaint: Shortness of Breath ED Provider: Natalie Jeffery Dx/Rx/DC Orders Clinical Impression: Asthma exacerbation, Hypoxia Prescriptions: No Action amlodipine [Norvasc] 10 mg tablet 10 mg PO DAILY tacrolimus 1 mg capsule,extended release 24hr 2 mg PO BID Rx Instructions: must administer in the morning on an empty stomach, 1 hour before or 2 hours after a meal mycophenolate mofetil [CellCept] 500 mg tablet 500 mg PO BID fluticasone propion-salmeterol 1 EACH blister with device 1 ea IH DAILY albuterol sulfate 2.5 mg /3 mL (0.083 %) solution for nebulization 2.5 mg inhalation Q4H PRN Qty: 25 0RF Rx Instructions: Use q4 hours and PRN for wheezing tacrolimus 1 mg capsule 2 mg PO BID Primary Care Provider: Lexi Barnes Referrals: Lexi Barnes MD [Primary Care Provider] - Print Language: Stateless Disposition Disposition: Acute Care Hospital [facility] What to do if you have Problems For any increased pain, shortness of breath, bleeding, nausea or vomiting, chestpain, or any unexpected problems, contact your Primary Care Provider. Call [facility] ([phone]) or report tothe closest Emergency Room. Call 911 if necessary. 07/22/24 0602 Cosigner Signature (if applicable): CC: Dr. Lexi Barnes MD ~ Signed [facility]03-27-2025 Radiology Diagnostic study note [facility] Imaging Services [address] [place], [place] [address] Chest 1 View (Portable) MR#: [id number] Acct: [id number] Name: DANNY BEDOYA Rep #: [id number] : 1980 M 44 From: Benedicto Srinivasan MD PCP: Dr. Lexi Barnes MD Status: REG ER Study:Chest 1 View (Portable) Date of Exam: 07/22/24 Exam# [id number] Ordering Dr: Natalie Jeffery DO PROCEDURE: CHEST 1 VIEW (PORTABLE) 07/22/2024 REASON FOR EXAM: DYSPNEA TECHNIQUE: Frontal view of the chest. COMPARISON: 07/05/2024 and 02/03/2024 FINDINGS: The lungs appear clear. Hyperinflation again noted. Pulmonary vascularity appears within limits. Nopleural effusion. The cardiac and mediastinal contours appear within limits. The visualized osseous structures appear within limits. RAD/Chest 1 View (Portable) IMPRESSION: Hyperinflation again noted. No evidence of acute disease. Reading Location: [id number] CC: Dr. Lexi Barnes MD; Dr. Natalie Jeffery, DO ~ Bulker: Signed [facility]03-11-2025 Consult note [facility] Medical Records Department [address] [place] [address] Counseling Note - Pharmacy 07/06/24 1534 MR#: [id number] Acct: [id number] Name: DANYN BEDOYA Rep #:[id number] : 1980 44 From: Crow Tineo PCP: Dr. Lexi Barnes MD Status:ADM IN Y Location: [facility] [id number] Pharmacy [facility] has performed discharge medication reconciliation and counseling for this patient. The patient's discharge medication list was reviewed for discrepancies and discrepancies were resolved. The patient was counseled on the following discharge medications and changes in medications for homegoing were reviewed. The Reason for Use, instructions for use, and potential side effects were reviewed for all new medications. The patient's questions regarding all of their medications were answered. 1. Prednisone 40 mg daily x 5 days The patient was able to verbally demonstrate an understanding of their dischargemedications. Medications at Discharge Home Medications fluticasone 100 mcg-salmeterol 50 mcg/dose blistr powdr for inhalation 1 ea IH DAILY breathing 01/04/19 amlodipine 10 mg tablet (Norvasc) 10 mg PO DAILY 05/20/22 mycophenolate mofetil 500 mg tablet (CellCept) 500 mg PO BID 05/20/22 tacrolimus 1 mg capsule,extended release 24 hr 2 mg PO BID liver 05/20/22 albuterol sulfate 2.5 mg/3 mL (0.083 %) solution for nebulization 2.5 mg (3 mL) inhalation Q4H PRN #25 vials 02/03/24 tacrolimus 1 mg capsule, immediate-release 2 mg PO BID 02/03/24 prednisone 20 mg tablet 40 mg (2 x 20 mg) PO DAILY #10 tabs 07/06/24 07/06/24 1536 r> Date _ Crow Metzigner Signature (if applicable): Date CC: ~ Signed [facility]03-11-2025 Discharge summary Author Natalie Dasilva [facility] Note Date/Time July 06, 2024 11: 33[facility] Medical Records Department [address] [place] [address] Discharge Summary 07/06/24 1113 MR#: [id number] Acct: [id number] Name: DANNY BEDOYA Rep #:[id number] : 1980 44 From: Natalie Dasilva DO PCP: Dr. Lexi Barnes MD Status:ADM IN Location: [place] [id number] Providers Date of Admission: 07/06/24 Primary Care Physician: Dr. Lexi Barnes MD Reason For Visit: AE ASTHMA, RESPIRATORY INSUFFICIENCY & Diagnosis Discharge Diagnosis (1) Asthma exacerbation: Status: Acute Code(s): J45.901 - Unspecified asthma with (acute) exacerbation Qualifiers: Asthma severity: severe Asthma persistence: persistent Qualified Code(s): J45.51 - Severe persistent asthma with (acute) exacerbation Plan: No pneumonia on CXR. COVID-19/influenza/RSV negative. continue BDs and methylprednisolone recommend outpt pulmonary follow up. Flattening of diaphragms concerning for underlying COPD. Pt states that he has been previously evaluated with PFTs that confirmed asthma. He has aerosols at home and does not need refilled. Will discharge with 5-day prednisone burst. Plan Liver x-plant: tacrolimus, mycophenolate HTN: amlodipine VTE prophylaxis: LMWH. Medications at Discharge Home Medications fluticasone 100 mcg-salmeterol 50 mcg/dose blistr powdr for inhalation 1 ea IH DAILY breathing 01/04/19 amlodipine 10 mg tablet (Norvasc) 10 mg PO DAILY 05/20/22 mycophenolate mofetil 500 mg tablet (CellCept) 500 mg PO BID 05/20/22 tacrolimus 1 mg capsule,extended release 24 hr 2 mg PO BID liver 05/20/22 albuterol sulfate 2.5 mg/3 mL (0.083 %) solution for nebulization 2.5 mg (3 mL) inhalation Q4H PRN #25 vials 02/03/24 tacrolimus 1 mg capsule, immediate-release 2 mg PO BID 02/03/24 prednisone 20 mg tablet 40 mg (2 x 20 mg) PO DAILY #10 tabs 07/06/24 Hospital Course Operations None Procedures None Summary of Care Provided Hospital Course: Patient presents with acute exacerbation of asthma. Patient started bronchodilators and methylprednisolone. Patient is doing well. Patient and ambulatory pulse ox and patient remained 92%. Overall, he is feeling better. Patient be discharged home with prednisone burst. Patient has aerosols as well as other MDIs at home. Patient improved much faster than initially anticipated. Weight / BMI Weight Weight: 69.4 kg Body Mass Index (BMI) 26.1 ABG / Lab / Microbiology Data 07/06/24 06:16 07/06/24 06:16 Laboratory: Laboratory Results - last 24 hr 07/05/24 22:40: WBC 8.3, RBC 5.57, Hgb 16.4, Hct 46.9, MCV 84.2, MCH 29.4, MCHC 35.0, RDW Std Deviation 38.3, RDW Coeff of Christiano 12.6, Plt Count 219, MPV 8.8, Immature Gran % (Auto) 0.400, Neut % (Auto) 64.3, Lymph % (Auto) 19.5, Van Zandt % (Auto) 7.6, Eos % (Auto) 7.1 H, Baso % (Auto) 1.1 H, Absolute Neuts (auto) 5.3, Absolute Lymphs (auto) 1.62, Nucleated RBC % 0, Sodium 139, Potassium 3.8, Chloride 103, Carbon Dioxide 21.0, Anion Gap 15, BUN 18, Creatinine 1.00, Est GFR (MDRD) Non-Af 95, BUN/Creatinine Ratio 17.7, Glucose 102 H, Calcium 9.6, Magnesium 1.7, TSH 2.050 07/06/24 06:16: WBC 5.5, RBC 5.45, Hgb 15.9, Hct 46.1, MCV 84.6, MCH 29.2, MCHC 34.5, RDW Std Deviation 38.1, RDW Coeff of Christiano 12.6, Plt Count 203, MPV 9.1, Immature Gran % (Auto) 0.500, Neut % (Auto) 88.8 H, Lymph % (Auto) 9.2 L, Van Zandt %(Auto) 1.1, Eos % (Auto) 0.2, Baso % (Auto) 0.2, Absolute Neuts (auto) 4.9, Absolute Lymphs (auto) 0.51 L, Nucleated RBC % 0, PT 14.3, INR 1.1, Sodium 136, Potassium 4.0, Chloride 103, Carbon Dioxide 17.9 L, Anion Gap 16 H, BUN 18, Creatinine 1.01, Estim Creat Clear Calc 78.15, Est GFR (MDRD) Non-Af 94, BUN/Creatinine Ratio 18.2, Glucose 169 H, Calcium 9.5, Phosphorus 2.3 L, Total Bilirubin 1.28, AST 28, ALT 23, Alkaline Phosphatase 81, Total Protein 7.6, Albumin 4.6, Globulin 3.0, Albumin/Globulin Ratio 1.5 Microbiology: Microbiology 07/05/24 22:40 Mucosa - Nose SARS-CoV-2, Influenza & RSV (PCR) - Final ABG: ABG 07/06/24 03:47 Specimen Type DARON Sample Site Not entered O2 % 2.0 VBG pH 7.42 VBG pO2 67 H VBG HCO3 23 VBG Total CO2 24 VBG O2 Sat (Calc) 93 H VBG Base Excess -1 POC Mix VBG pCO2 Pt Tmp 36.2 L O2 Delivery Device Cannula Radiography Diagnostic Testing: Radiology Impression Chest X-Ray 07/05/24 23:25 IMPRESSION: No acute cardiopulmonary process. Reading Location: [facility] Instructions Discharge Diet: No restrictions DC O2, CPAP, BIPAP Needs Home O2 Discharge instructions: No Meaningful Use Info Meaningful Use Meaningful Use Diagnoses (Choose all that apply): None applicable Ischemic Stroke Statin Dosing Therapy Reference: STATIN DOSE THERAPY REFERENCE: * Patients > 75 years receive moderate or high dose statin therapy. * Patients 75 years or YOUNGER should receive HIGH intensity statin dose unless contraindicated. You will be required to document reason for non-treatment if statin daily dose does not meet guidelines. HIGH DOSE STATIN THERAPY DAILY Atorvastatin > than or = to 40 mg Rosuvastatin > than or = to 20 mg Amlodipine + Atorvastatin > than or = to 2.5/40 mg Ezetimibe + Simvastatin 10/80 mg Simvastatin 80mg Discharge Plan Admission Admit Date/Time: 07/06/24 02:36 Primary Reason for Your Visit: Acute asthma exacerbation Attending Provider: Natalie Dasilva Primary Care Provider: Lexi Barnes Consulting Providers: Lisa Jain Discharge Orders/Prescriptions Prescriptions: New prednisone 20 mg tablet 40 mg PO DAILY Qty: 10 0RF Continued amlodipine [Norvasc] 10 mg tablet 10 mg PO DAILY tacrolimus 1 mg capsule,extended release 24hr 2 mg PO BID Rx Instructions: must administer in the morning on an empty stomach, 1 hour before or 2 hours after a meal mycophenolate mofetil [CellCept] 500 mg tablet 500 mg PO BID fluticasone propion-salmeterol 1 EACH blister with device 1 ea IH DAILY albuterol sulfate 2.5 mg /3 mL (0.083 %) solution for nebulization 2.5 mg inhalation Q4H PRN Qty: 25 0RF Rx Instructions: Use q4 hours and PRN for wheezing tacrolimus 1 mg capsule 2 mg PO BID Referrals / Follow Up: Lexi Barnes MD [Primary Care Provider] - Charges/Coding Visit Charges OBSV E&M: 94323 Observ/hosp same date L2 (greater than 30 ) 07/06/24 1133 <Electronically signed by Natalie Dasilva DO> Cosigner Signature (if applicable): CC: Dr. Lexi Barnes MD; Dr. Natalie Dasilva DO~ Signed [facility] Work Phone: 1(514) 726-272403-11-2025 Progress note Author Natalie Dasilva [facility] Note Date/Time July 06, 2024 11: 13am [facility] Medical Records Department [address] [place] [address] Progress Note - Hospitalist 07/06/24 0825 MR#: [id number] Acct: [id number] Name: DANNY BEDOYA Rep #:[id number] : 1980 44 From: Natalie Dasilva DO PCP: Dr. Lexi Barnes MD Status:ADM IN Location: [place] [address] Reason for Visit Reason for Visit: Diagnoses Alcohol abuse, in remission (07/06/24) Essential (primary) hypertension (07/06/24) Severe persistent asthma with (acute) exacerbation (07/06/24) Alcoholic cirrhosis of liver without ascites (07/06/24) Other abnormalities of breathing (07/06/24) Liver transplant status (07/06/24) Subjective Subjective Breathing much better. Objective Data Objective Data Vital Signs: Vital Signs Temp Pulse Resp BP Pulse Ox O2 Del Method O2 Flow Rate 36.6 C 80 16 151/90 H 95 Nasal Cannula 3 07/06/24 04:21 07/06/24 04:21 07/06/24 04:21 07/06/24 04:21 07/06/24 04:29 07/06/24 04:29 07/06/24 04:29 Oxygen Flow Rate (L/min) 3 Oxygen Delivery Method Nasal Cannula Weight: 69.4 kg Body Mass Index (BMI) 26.1 Intake & Output: Intake and Output for Last 24 Hours 07/05/24 07/05/24 07/06/24 00:59 23:59 23:59 Intake Total 300 / 300 Balance 300 / 300 Lab / Micro Data 07/06/24 06:16 07/06/24 06:16 Labs: Laboratory Results - last 24 hr 07/05/24 22:40: WBC 8.3, RBC 5.57, Hgb 16.4, Hct 46.9, MCV 84.2, MCH 29.4, MCHC 35.0, RDW Std Deviation 38.3, RDW Coeff of Christiano 12.6, Plt Count 219, MPV 8.8, Immature Gran % (Auto) 0.400, Neut % (Auto) 64.3, Lymph % (Auto) 19.5, Van Zandt % (Auto) 7.6, Eos % (Auto) 7.1 H, Baso % (Auto) 1.1 H, Absolute Neuts (auto) 5.3, Absolute Lymphs (auto) 1.62, Nucleated RBC % 0, Sodium 139, Potassium 3.8, Chloride 103, Carbon Dioxide 21.0, Anion Gap 15, BUN 18, Creatinine 1.00, Est GFR (MDRD) Non-Af 95, BUN/Creatinine Ratio 17.7, Glucose 102 H, Calcium 9.6, Magnesium 1.7, TSH 2.050 07/06/24 06:16: WBC 5.5, RBC 5.45, Hgb 15.9, Hct 46.1, MCV 84.6, MCH 29.2, MCHC 34.5, RDW Std Deviation 38.1, RDW Coeff of Christiano 12.6, Plt Count 203, MPV 9.1, Immature Gran % (Auto) 0.500, Neut % (Auto) 88.8 H, Lymph % (Auto) 9.2 L, Van Zandt %(Auto) 1.1, Eos % (Auto) 0.2, Baso % (Auto) 0.2, Absolute Neuts (auto) 4.9, Absolute Lymphs (auto) 0.51 L, Nucleated RBC % 0, PT 14.3, INR 1.1, Sodium 136, Potassium 4.0, Chloride 103, Carbon Dioxide 17.9 L, Anion Gap 16 H, BUN 18, Creatinine 1.01, Estim Creat Clear Calc 78.15, Est GFR (MDRD) Non-Af 94, BUN/Creatinine Ratio 18.2, Glucose 169 H, Calcium 9.5, Phosphorus 2.3 L, Total Bilirubin 1.28, AST 28, ALT 23, Alkaline Phosphatase 81, Total Protein 7.6, Albumin 4.6, Globulin 3.0, Albumin/Globulin Ratio 1.5 Micro: Microbiology 07/05/24 22:40 Mucosa - Nose SARS-CoV-2, Influenza & RSV (PCR) - Final ABG Data ABG results: ABG 07/06/24 03:47 Specimen Type DARON Sample Site Not entered O2 % 2.0 VBG pH 7.42 VBG pO2 67 H VBG HCO3 23 VBG Total CO2 24 VBG O2 Sat (Calc) 93 H VBG Base Excess -1 POC Mix VBG pCO2 Pt Tmp 36.2 L O2 Delivery Device Cannula Radiography Diagnostic Testing: Radiology Impression Chest X-Ray 07/05/24 23:25 IMPRESSION: No acute cardiopulmonary process. Reading Location: [facility] Physical Exam Const alert and no apparent distress HEENT head/scalp atraumatic and moist oral mucous membranes Resp normal respiratory effort and no retractions Resp Narrative: bilateral inspiratory and expiratory wheeze. Cardio regular rate and regular rhythm Assessment & Plan Assessment/Plan (1) Asthma exacerbation: QUALIFIERS: Asthma persistence: persistent Asthma severity: severe Qualified Code(s): J45.51 - Severe persistent asthma with (acute) exacerbation PLAN: No pneumonia on CXR. COVID-19/influenza/RSV negative. continue BDs and methylprednisolone recommend outpt pulmonary follow up. Flattening of diaphragms concerning for underlying COPD. Pt states that he has been previously evaluated with PFTs that confirmed asthma. He has aerosols at home and does not need refilled. Will discharge with 5-day prednisone burst. PLAN: Plan Liver x-plant: tacrolimus, mycophenolate HTN: amlodipine VTE prophylaxis: LMWH. 07/06/24 1113 <Electronically signed by Natalie Dasilva DO> Cosigner Signature (if applicable): CC: ~ Signed [facility] Work Phone: 1(331) 632-479203-11-2025 Discharge summary [facility] Medical Records Department [address] [place] [address] Discharge Summary 07/06/24 1113 MR#: [id number] Acct: [id number] Name: DANNY BEDOYA Rep #:[id number] : 1980 44 From: Natalie Dasilva DO PCP: Dr. Lexi Barnes MD Status:ADM IN Location: [place] [address] Providers Date of Admission: 07/06/24 Primary Care Physician: Dr. Lexi Barnes MD Reason For Visit: AE ASTHMA, RESPIRATORY INSUFFICIENCY & Diagnosis Discharge Diagnosis (1) Asthma exacerbation: Status: Acute Code(s): J45.901 - Unspecified asthma with (acute) exacerbation Qualifiers: Asthma severity: severe Asthma persistence: persistent Qualified Code(s): J45.51 - Severe persistent asthma with (acute) exacerbation Plan: No pneumonia on CXR. COVID-19/influenza/RSV negative. continue BDs and methylprednisolone recommend outpt pulmonary follow up. Flattening of diaphragms concerning for underlying COPD. Pt states that he has been previously evaluated with PFTs that confirmed asthma. He has aerosols at home and does not need refilled. Will discharge with 5-day prednisone burst. Plan Liver x-plant: tacrolimus, mycophenolate HTN: amlodipine VTE prophylaxis: LMWH. Medications at Discharge Home Medications fluticasone 100 mcg-salmeterol 50 mcg/dose blistr powdr for inhalation 1 ea IH DAILY breathing 01/04/19 amlodipine 10 mg tablet (Norvasc) 10 mg PO DAILY 05/20/22 mycophenolate mofetil 500 mg tablet (CellCept) 500 mg PO BID 05/20/22 tacrolimus 1 mg capsule,extended release 24 hr 2 mg PO BID liver 05/20/22 albuterol sulfate 2.5 mg/3 mL (0.083 %) solution for nebulization 2.5 mg (3 mL) inhalation Q4H PRN #25 vials 02/03/24 tacrolimus 1 mg capsule, immediate-release 2 mg PO BID 02/03/24 prednisone 20 mg tablet 40 mg (2 x 20 mg) PO DAILY #10 tabs 07/06/24 Hospital Course Operations None Procedures None Summary of Care Provided Hospital Course: Patient presents with acute exacerbation of asthma. Patient started bronchodilators and methylprednisolone. Patient is doing well. Patient and ambulatory pulse ox and patient remained 92%. Overall, he is feeling better. Patient be discharged home with prednisone burst. Patient has aerosols as well a s other MDIs at home. Patient improved much faster than initially anticipated. Weight / BMI Weight Weight: 69.4 kg Body Mass Index (BMI) 26.1 ABG / Lab / Microbiology Data 07/06/24 06:16 07/06/24 06:16 Laboratory: Laboratory Results - last 24 hr 07/05/24 22:40: WBC 8.3, RBC 5.57, Hgb 16.4, Hct 46.9, MCV 84.2, MCH 29.4, MCHC 35.0, RDW Std Deviation 38.3, RDW Coeff of Christiano 12.6, Plt Count 219, MPV 8.8, Immature Gran % (Auto) 0.400, Neut % (Auto) 64.3, Lymph % (Auto) 19.5, Van Zandt % (Auto) 7.6, Eos % (Auto) 7.1 H, Baso % (Auto) 1.1 H, Absolute Neuts (auto) 5.3, Absolute Lymphs (auto) 1.62, Nucleated RBC % 0, Sodium 139, Potassium 3.8, Chloride 103, Carbon Dioxide 21.0, Anion Gap 15, BUN 18, Creatinine 1.00, Est GFR (MDRD) Non-Af 95, BUN/Creatinine Ratio 17.7, Glucose 102 H, Calcium 9.6, Magnesium 1.7, TSH 2.050 07/06/24 06:16: WBC 5.5, RBC 5.45, Hgb 15.9, Hct 46.1, MCV 84.6, MCH 29.2, MCHC 34.5, RDW Std Deviation 38.1, RDW Coeff of Christiano 12.6, Plt Count 203, MPV 9.1, Immature Gran % (Auto) 0.500, Neut % (Auto) 88.8 H, Lymph % (Auto) 9.2 L, Van Zandt %(Auto) 1.1, Eos % (Auto) 0.2, Baso % (Auto) 0.2, Absolute Neuts (auto) 4.9, Absolute Lymphs (auto) 0.51 L, Nucleated RBC % 0, PT 14.3, INR 1.1, Sodium 136, Potassium 4.0, Chloride 103, Carbon Dioxide 17.9 L, Anion Gap 16 H, BUN 18, Creatinine 1.01, Estim Creat Clear Calc 78.15, Est GFR (MDRD) Non-Af 94, BUN/Creatinine Ratio 18.2, Glucose 169 H, Calcium 9.5, Phosphorus 2.3 L, Total Bilirubin 1.28, AST 28, ALT 23, Alkaline Phosphatase 81, Total Protein 7.6, Alb umin 4.6, Globulin 3.0, Albumin/Globulin Ratio 1.5 Microbiology: Microbiology 07/05/24 22:40 Mucosa - Nose SARS-CoV-2, Influenza & RSV (PCR) - Final ABG: ABG 07/06/24 03:47 Specimen Type DARON Sample Site Not entered O2 % 2.0 VBG pH 7.42 VBG pO2 67 H VBG HCO3 23 VBG Total CO2 24 VBG O2 Sat (Calc) 93 H VBG Base Excess -1 POC Mix VBG pCO2 Pt Tmp 36.2 L O2 Delivery Device Cannula Radiography Diagnostic Testing: Radiology Impression Chest X-Ray 07/05/24 23:25 IMPRESSION: No acute cardiopulmonary process. Reading [facility] Instructions Discharge Diet: No restrictions DC O2, CPAP, BIPAP Needs Home O2 Discharge instructions: No Meaningful Use Info Meaningful Use Meaningful Use Diagnoses (Choose all that apply): None applicable Ischemic Stroke Statin Dosing Therapy Reference: STATIN DOSE THERAPY REFERENCE: * Patients > 75 years receive moderate or high dose statin therapy. * Patients 75 years or YOUNGER should receive HIGH intensity statin dose unless contraindicated. You will be required to document reason for non-treatment if statin daily dose does not meet guidelines. HIGH DOSE STATIN THERAPY DAILY Atorvastatin > than or = to 40 mg Rosuvastatin > than or = to 20 mg Amlodipine + Atorvastatin > than or = to 2.5/40 mg Ezetimibe + Simvastatin 10/80 mg Simvastatin 80mg Discharge Plan Admission Admit Date/Time: 07/06/24 02:36 Primary Reason for Your Visit: Acute asthma exacerbation Attending Provider: Natalie Dasilva Primary Care Provider: Lexi Barnes Consulting Providers: Lisa Jain Discharge Orders/Prescriptions Prescriptions: New prednisone 20 mg tablet 40 mg PO DAILY Qty: 10 0RF Continued amlodipine [Norvasc] 10 mg tablet 10 mg PO DAILY tacrolimus 1 mg capsule,extended release 24hr 2 mg PO BID Rx Instructions: must administer in the morning on an empty stomach, 1 hour before or 2 hours after a meal mycophenolate mofetil [CellCept] 500 mg tablet 500 mg PO BID fluticasone propion-salmeterol 1 EACH blister with device 1 ea IH DAILY albuterol sulfate 2.5 mg /3 mL (0.083 %) solution for nebulization 2.5 mg inhalation Q4H PRN Qty: 25 0RF Rx Instructions: Use q4 hours and PRN for wheezing tacrolimus 1 mg capsule 2 mg PO BID Referrals / Follow Up: Lexi Barnes MD [Primary Care Provider] - Charges/Coding Visit Charges OBSV E&M: 37338 Observ/hosp same date L2 (greater than 30 ) 07/06/24 1133 Cosigner Signature (if applicable): CC: Dr. Lexi Barnes MD; Dr. Natalie Dasilva DO~ Signed [facility]03-11-2025 [facility] Medical Records Department [address] [place] [address] Discharge Summary 07/06/24 1113 MR#: [id number] Acct: [id number] Name: DANNY BEDOYA Rep #: [id number] : 1980 44 From: Natalie Dasilva DO PCP: Dr. Lexi Barnes MD Status:ADM IN Location: [facility] [id number] Providers Date of Admission: 07/06/24 Primary Care Physician: Dr. Lexi Barnes MD Reason For Visit: AE ASTHMA, RESPIRATORY INSUFFICIENCY Diagnosis Discharge Diagnosis (1) Asthma exacerbation: Status: Acute Code(s): J45.901 - Unspecified asthma with (acute) exacerbation Qualifiers: Asthma severity: severe Asthma persistence: persistent Qualified Code(s): J45.51 - Severe persistent asthma with (acute) exacerbation Plan: No pneumonia on CXR. COVID-19/influenza/RSV negative. continue BDs and methylprednisolone recommend outpt pulmonary follow up. Flattening of diaphragms concerning for underlying COPD. Pt states that he has been previously evaluated with PFTs that confirmed asthma. He has aerosols at home and does not need refilled. Will discharge with 5-day prednisone burst. Plan Liver x-plant: tacrolimus, mycophenolate HTN: amlodipine VTE prophylaxis: LMWH. Medications at Discharge Home Medications fluticasone 100 mcg-salmeterol 50 mcg/dose blistr powdr for inhalation 1 ea IH DAILY breathing 01/04/19 amlodipine 10 mg tablet (Norvasc) 10 mg PO DAILY 05/20/22 mycophenolate mofetil 500 mg tablet (CellCept) 500 mg PO BID 05/20/22 tacrolimus 1 mg capsule,extended release 24 hr 2 mg PO BID liver 05/20/22 albuterol sulfate 2.5 mg/3 mL (0.083 %) solution for nebulization 2.5 mg (3 mL) inhalation Q4H PRN #25 vials 02/03/24 tacrolimus 1 mg capsule, immediate-release 2 mg PO BID 02/03/24 prednisone 20 mg tablet 40 mg (2 x 20 mg) PO DAILY #10 tabs 07/06/24 Hospital Course Operations None Procedures None Summary of Care Provided Hospital Course: Patient presents with acute exacerbation of asthma. Patient started bronchodilators and methylprednisolone. Patient is doing well. Patient and ambulatory pulse ox and patient remained 92%. Overall, he is feeling better. Patient be discharged home with prednisone burst. Patient has aerosols as well as other MDIs at home. Patient improved much faster than initially anticipated. Weight / BMI Weight Weight: 69.4 kg Body Mass Index (BMI) 26.1 ABG / Lab / Microbiology Data 07/06/24 06:16 07/06/24 06:16 Laboratory: Laboratory Results - last 24 hr 07/05/24 22:40: WBC 8.3, RBC 5.57, Hgb 16.4, Hct 46.9, MCV 84.2, MCH 29.4, MCHC 35.0, RDW Std Deviation 38.3, RDW Coeff of Christiano 12.6, Plt Count 219, MPV 8.8, Immature Gran % (Auto) 0.400, Neut % (Auto) 64.3, Lymph % (Auto) 19.5, Van Zandt % (Auto) 7.6, Eos % (Auto) 7.1 H, Baso % (Auto) 1.1 H, Absolute Neuts (auto) 5.3, Absolute Lymphs (auto) 1.62, Nucleated RBC % 0, Sodium 139, Potassium 3.8, Chloride 103, Carbon Dioxide 21.0, Anion Gap 15, BUN 18, Creatinine 1.00, Est GFR (MDRD) Non-Af 95, BUN/Creatinine Ratio 17.7, Glucose 102 H, Calcium 9.6, Magnesium 1.7, TSH 2.050 07/06/24 06:16: WBC 5.5, RBC 5.45, Hgb 15.9, Hct 46.1, MCV 84.6, MCH 29.2, MCHC 34.5, RDW Std Deviation 38.1, RDW Coeff of Christiano 12.6, Plt Count 203, MPV 9.1, Immature Gran % (Auto) 0.500, Neut % (Auto) 88.8 H, Lymph % (Auto) 9.2 L, Van Zandt % (Auto) 1.1, Eos % (Auto) 0.2, Baso % (Auto) 0.2, Absolute Neuts (auto) 4.9, Absolute Lymphs (auto) 0.51 L, Nucleated RBC % 0, PT 14.3, INR 1.1, Sodium 136, Potassium 4.0, Chloride 103, Carbon Dioxide 17.9 L, Anion Gap 16 H, BUN 18, Creatinine 1.01, Estim Creat Clear Calc 78.15, Est GFR (MDRD) Non-Af 94, BUN/Creatinine Ratio 18.2, Glucose 169 H, Calcium 9.5, Phosphorus 2.3 L, Total Bilirubin 1.28, AST 28, ALT 23, Alkaline Phosphatase 81, Total Protein 7.6, Albumin 4.6, Globulin 3.0, Albumin/Globulin Ratio 1.5 Microbiology: Microbiology 07/05/24 22:40 Mucosa - Nose SARS-CoV-2, Influenza RSV (PCR) - Final ABG: ABG 07/06/24 03:47 Specimen Type DARON Sample Site Not entered O2 % 2.0 VBG pH 7.42 VBG pO2 67 H VBG HCO3 23 VBG Total CO2 24 VBG O2 Sat (Calc) 93 H VBG Base Excess -1 POC Mix VBG pCO2 Pt Tmp 36.2 L O2 Delivery Device Cannula Radiography Diagnostic Testing: Radiology Impression Chest X-Ray 07/05/24 23:25 IMPRESSION: No acute cardiopulmonary process. Reading Location: [facility] Instructions Discharge Diet: No restrictions DC O2, CPAP, BIPAP Needs Home O2 Discharge instructions: No Meaningful Use Info Meaningful Use Meaningful Use Diagnoses (Choose all that apply): None applicable Ischemic Stroke Statin Dosing Therapy Reference: STATIN DOSE THERAPY REFERENCE: * Patients > 75 years receive moderate or high (more content not included)... [facility]03-11-2025 Progress note [facility] Medical Records Department [address] [place] [address] Progress Note - Hospitalist 07/06/24 0825 MR#: [id number] Acct: [id number] Name: DANNY BEDOYA Rep #:[id number] : 1980 44 From: Natalie Dasilva DO PCP: Dr. Lexi Barnes MD Status:ADM IN [id number] Reason for Visit Reason for Visit: Diagnoses Alcohol abuse, in remission (07/06/24) Essential (primary) hypertension (07/06/24) Severe persistent asthma with (acute) exacerbation (07/06/24) Alcoholic cirrhosis of liver without ascites (07/06/24) Other abnormalities of breathing (07/06/24) Liver transplant status (07/06/24) Subjective Subjective Breathing much better. Objective Data Objective Data Vital Signs: Vital Signs Temp Pulse Resp BP Pulse Ox O2 Del Method O2 Flow Rate 36.6 C 80 16 151/90 H 95 Nasal Cannula 3 07/06/24 04:21 07/06/24 04:21 07/06/24 04:21 07/06/24 04:21 07/06/24 04:29 07/06/24 04:29 07/06/24 04:29 Oxygen Flow Rate (L/min) 3 Oxygen Delivery Method Nasal Cannula Weight: 69.4 kg Body Mass Index (BMI) 26.1 Intake & Output: Intake and Output for Last 24 Hours 07/05/24 07/05/24 07/06/24 00:59 23:59 23:59 Intake Total 300 / 300 Balance 300 / 300 Lab / Micro Data 07/06/24 06:16 07/06/24 06:16 Labs: Laboratory Results - last 24 hr 07/05/24 22:40: WBC 8.3, RBC 5.57, Hgb 16.4, Hct 46.9, MCV 84.2, MCH 29.4, MCHC 35.0, RDW Std Deviation 38.3, RDW Coeff of Christiano 12.6, Plt Count 219, MPV 8.8, Immature Gran % (Auto) 0.400, Neut % (Auto) 64.3, Lymph % (Auto) 19.5, Van Zandt % (Auto) 7.6, Eos % (Auto) 7.1 H, Baso % (Auto) 1.1 H, Absolute Neuts (auto) 5.3, Absolute Lymphs (auto) 1.62, Nucleated RBC % 0, Sodium 139, Potassium 3.8, Chloride 103, Carbon Dioxide 21.0, Anion Gap 15, BUN 18, Creatinine 1.00, Est GFR (MDRD) Non-Af 95, BUN/Creatinine Ratio 17.7, Glucose 102 H, Calcium 9.6, Magnesium 1.7, TSH 2.050 07/06/24 06:16: WBC 5.5, RBC 5.45, Hgb 15.9, Hct 46.1, MCV 84.6, MCH 29.2, MCHC 34.5, RDW Std Deviation 38.1, RDW Coeff of Christiano 12.6, Plt Count 203, MPV 9.1, Immature Gran % (Auto) 0.500, Neut % (Auto) 88.8 H, Lymph % (Auto) 9.2 L, Van Zandt %(Auto) 1.1, Eos % (Auto) 0.2, Baso % (Auto) 0.2, Absolute Neuts (auto) 4.9, Absolute Lymphs (auto) 0.51 L, Nucleated RBC % 0, PT 14.3, INR 1.1, Sodium 136, Potassium 4.0, Chloride 103, Carbon Dioxide 17.9 L, Anion Gap 16 H, BUN 18, Creatinine 1.01, Estim Creat Clear Calc 78.15, Est GFR (MDRD) Non-Af 94, BUN/Creatinine Ratio 18.2, Glucose 169 H, Calcium 9.5, Phosphorus 2.3 L, Total Bilirubin 1.28, AST 28, ALT 23, Alkaline Phosphatase 81, Total Protein 7.6, Alb umin 4.6, Globulin 3.0, Albumin/Globulin Ratio 1.5 Micro: Microbiology 07/05/24 22:40 Mucosa - Nose SARS-CoV-2, Influenza & RSV (PCR) - Final ABG Data ABG results: ABG 07/06/24 03:47 Specimen Type DARON Sample Site Not entered O2 % 2.0 VBG pH 7.42 VBG pO2 67 H VBG HCO3 23 VBG Total CO2 24 VBG O2 Sat (Calc) 93 H VBG Base Excess -1 POC Mix VBG pCO2 Pt Tmp 36.2 L O2 Delivery Device Cannula Radiography Diagnostic Testing: Radiology Impression Chest X-Ray 07/05/24 23:25 IMPRESSION: No acute cardiopulmonary process. Reading Location: [facility] Physical Exam Const alert and no apparent distress HEENT head/scalp atraumatic and moist oral mucous membranes Resp normal respiratory effort and no retractions Resp Narrative: bilateral inspiratory and expiratory wheeze. Cardio regular rate and regular rhythm Assessment & Plan Assessment/Plan (1) Asthma exacerbation: QUALIFIERS: Asthma persistence: persistent Asthma severity: severe Qualified Code(s): J45.51 - Severe persistent asthma with (acute) exacerbation PLAN: No pneumonia on CXR. COVID-19/influenza/RSV negative. continue BDs and methylprednisolone recommend outpt pulmonary follow up. Flattening of diaphragms concerning for underlying COPD. Pt states that he has been previously evaluated with PFTs that confirmed asthma. He has aerosols at home and does not need refilled. Will discharge with 5-day prednisone burst. PLAN: Plan Liver x-plant: tacrolimus, mycophenolate HTN: amlodipine VTE prophylaxis: LMWH. 07/06/24 1113 Cosigner Signature (if applicable): CC: ~ Signed [facility]03-11-2025 History and physical note Author Lisa Wallis [facility] Note Date/Time July 06, 2024 5:5 6am [facility] Medical Records Department [address] [place] [address] H&P Exam - Hospitalist 07/06/24 0218 MR#: [id number] Acct: [id number] Name: DANNY BEDOYA Rep #:[id number] : 1980 44 From: Lisa Rivas DO PCP: Dr. Lexi Barnes MD Status:ADM IN Location: [facility] NA148-7 [facility] - General General Date of Admission: 07/06/24 Date of Service: 07/06/24 Chief Complaint: SOB and Wheezing. HPI Narrative DANNY BEDOYA, is a 44 M with a past medical history of essential hypertension; on amlodipine, history of EtOH Abuse (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); with cirrhosis, history of liver transplant; on mycophenolate mofetil BID, tacrolimus BID and TMP-SMX, history of cannabis abuse, GERD; on pantoprazole, history of asthma; on prednisone taper listed allergy to lisinopril (angioedema), who presents to [facility] ER complaining of shortness of breath and wheezing. Mr. Bedoya reports his symptoms began on the evening of July 05, 2024 after going out to dinner with his significant other when they were walking back from dinner he noted the abrupt-onset of shortness of breath and wheezing. He statesthat he had been feeling fine prior to this evening without viral type illness or congestion. He denies recent sick contacts or known toxic exposures that could have triggered his asthma exacerbation. He states his symptoms are nearlyidentical to his previous acute asthma exacerbations. He admits to nonproductive cough but he denies associated fever, chills, changes in vision, runny nose, sore throat, chest pain, abdominal pain, nausea, vomiting, diarrhea,constipation, dysuria, myalgias or headache. In the ER he was diagnosed with AEAsthma complicated by clinical evidence of respiratory insufficiency patient requiring initiation of 2L NC and he was then admitted to the general medical floor for ongoing care for stay that is expected to extend beyond 2 midnights. [facility] Medical History Cirrhosis Asthma Alcohol abuse Angioedema Home Medications ?Medication ?Instructions ?Recorded ?Last Taken ?Type fluticasone 100 mcg-salmeterol 50 1 ea IH DAILY breath ing 01/04/19 Unknown History mcg/dose blistr powdr for inhalation amlodipine 10 mg tablet (Norvasc) 10 mg PO DAILY 05/20 Unknown History mycophenolate mofetil 500 mg 500 mg PO BID 05/20/22 Un known History tablet (CellCept) tacrolimus 1 mg capsule,extended 2 mg PO BID 05/20/22 Unknown History release 24 hr albuterol sulfate 2.5 mg/3 mL 2.5 mg (3 mL) inhalation Q4H PRN 02/03/24 Unknown Rx (0.083 %) solution for nebulization #25 vials tacrolimus 1 mg capsule, 2 mg PO BID 02/03/24 Unknown History immediate-release Allergy/AdvReac Type Severity Reaction Status Date / Time lisinopril Allergy Angioedema Verified 07/05/24 21:59 Family History Father Alcoholism Asthma Mother Asthma Grandmother Cancer brain Surgical History Hx of liver transplant Social History household members: none current occupational status: employed 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 Eyes: Patient denies changes in vision or discharge from eyes. ENT: Patient denies runny nose, sore throat or ear pain. Resp: Patient admits to shortness of breath at rest with wheezing and nonproductive cough as per HPI. CV: Patient denies chest pain, palpitations, heart racing or lower extremity edema. GI: Patient denies abdominal pain, nausea, vomiting, diarrhea or constipation. : Patient denies dysuria or hematuria. MSK: Patient denies arthralgias or myalgias. Skin: Patient denies rash, abscess, wounds or jaundice. Psych: Patient denies symptoms of uncontrolled depression or anxiety. Neuro: Patient denies headache, paresthesias or focal neurologic deficits. Allergy: Patient denies lip swelling, tongue swelling or urticaria. Hematology: Patient denies easy bleeding or easy bruisability. Endocrinology: Patient denies polyuria, polydipsia or polyphagia. 14 point ROS was otherwise negative except for positives in HPI. Vital Signs Vital Signs Vital Signs: 07/05/24 21:59 07/05/24 22:12 07/05/24 22:12 Temperature 98.5 F Temperature Source Temporal Pulse Rate 107 H Respiratory Rate 30 H Respiratory Effort Labored Nasal Fl[place] Respiratory Pattern Tachypnea Blood Pressure 164/105 H Blood Pressure Mean 124 Pulse Ox 92 89 Oxygen Delivery Method Room Air Room Air Room Air Oxygen Flow Rate (L/min) 07/05/24 22:36 07/05/24 23:00 07/06/24 00:00 Temperature Temperature Source Pulse Rate 105 H 107 H 95 Respiratory Rate 20 H 24 H Respiratory Effort Respiratory Pattern Normal Blood Pressure 138/88 H Blood Pressure Mean 104 Pulse Ox 94 92 Oxygen Delivery Method Nasal Cannula Oxygen Flow Rate (L/min) 2 07/06/24 00:25 07/06/24 01:00 Temperature Temperature Source Pulse Rate 89 Respiratory Rate 20 H Respiratory Effort Respiratory Pattern Normal Blood Pressure Blood Pressure Mean Pulse Ox 90 Oxygen Delivery Method Room Air Oxygen Flow Rate (L/min) Physical Exam Const alert, oriented x3 and average body habitus Constitutional Narrative: Moderately labored respirations noted. General Appearance: cooperative HEENT normocephalic, head/scalp atraumatic, hearing grossly normal bilaterally and moist oral mucous membranes Eyes PERRL, EOMs intact bilaterally and conjunctivae normal Neck no lymphadenopathy, supple and no JVD Resp Resp Narrative: Diminished breath sounds throughout with diffuse mild inspiratory and expiratorywheezing noted - with patient stating he felt markedly improved from earlier after Solu-Medrol and breathing treatments. Auscultation: wheezes Cardio regular rate and regular rhythm GI normal to inspection, nondistended, normoactive bowel sounds, soft to palpation,non-tender and non-distended Extremity normal to inspection, full ROM and no clubbing, cyanosis or edema Skin Skin Narrative: Patient has no evidence of rash, abscess, wounds or jaundice. Neuro oriented x3, CN's II-XII intact bilaterally, moves all extremities and no focal motor deficits Sensorium / Orientation: awake, alert, oriented to person, oriented to place andoriented to time Speech: speech normal Psych affect normal Results Medical Records Data Attestation: I reviewed the patient's medical records Lab / Micro Data Attestation: I reviewed the patient's lab results. 07/05/24 22:40 07/05/24 22:40 Labs: Laboratory Results - last 24 hr 07/05/24 22:40: WBC 8.3, RBC 5.57, Hgb 16.4, Hct 46.9, MCV 84.2, MCH 29.4, MCHC 35.0, RDW Std Deviation 38.3, RDW Coeff of Christiano 12.6, Plt Count 219, MPV 8.8, Immature Gran % (Auto) 0.400, Neut % (Auto) 64.3, Lymph % (Auto) 19.5, Van Zandt % (Auto) 7.6, Eos % (Auto) 7.1 H, Baso % (Auto) 1.1 H, Absolute Neuts (auto) 5.3, Absolute Lymphs (auto) 1.62, Nucleated RBC % 0, Sodium 139, Potassium 3.8, Chloride 103, Carbon Dioxide 21.0, Anion Gap 15, BUN 18, Creatinine 1.00, Est GFR (MDRD) Non-Af 95, BUN/Creatinine Ratio 17.7, Glucose 102 H, Calcium 9.6, Magnesium 1.7 Micro: Microbiology 07/05/24 22:40 Mucosa - Nose SARS-CoV-2, Influenza & RSV (PCR) - Final ABG Data ABG results: RUN DATE: 07/06/24 [facility], DEPARTMENT OF LABORATORIES PAGE 1 RUN TIME: 05 Specimen Inquiry [address], [place], [address] PATIENT: DANNY BEDOYA LOC: MS3 U #: [id number] : 1980 AGE/SX: 44/M FACILITY: [facility] [place] [facility] [place]07/06/[address]: Anita Mccarthy STATUS:ADM IN ED: 1 DIS: ~ SPEC #: [id number] MARIVEL: 07/06/24 STATUS: COMP REQ #: [id number] RECD: 07/06/[address]: Dr. Lisa Jain, DO ENTERED: 07/06/[address]: Dr. Lexi Barnes MD ~ Test Result Flag Reference Range VIBG Blood Gas Type DARON SITE Not entered O2 Delivery Dev Cannula FI02 2.0 VBG pH 7.42 7.32-7.42 VBG pCO2 36.2 L 41-51 mmHg VBG PO2 67 H 25-40 mmHg VBG HCO3 23 22-26 mmol/L VBG BE -1 -1.0-3.5 mmol/L VBG SO2 93 H 50-70 % VBG TCO2 24 23-33 mmol/L END OF REPORT Imaging Radiology Impression Chest X-Ray 07/05/24 23:25 IMPRESSION: No acute cardiopulmonary process. Reading Location: [facility] Assessment & Plan Assessment/Plan (1) Asthma exacerbation: QUALIFIERS: Asthma persistence: persistent Asthma severity: severe Qualified Code(s): J45.51 - Severe persistent asthma with (acute) exacerbation (2) Respiratory insufficiency: (3) History of alcohol abuse: (4) Cirrhosis: QUALIFIERS: Ascites presence: without ascites Hepatic cirrhosis type: alcoholic cirrhosis Qualified Code(s): K70.30 - Alcoholic cirrhosis of liver without ascites (5) History of liver transplant: (6) Essential hypertension: PLAN: Plan 1. AE Asthma - Admit to general medical floor. Continue IV Solu-Medrol begun in ER plus scheduled and as needed nebulizers. Check VBG to establish baseline. 2. Respiratory insufficiency due to #1 - Wean supplemental oxygen as tolerated. 3. 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 4. Essential Hypertension; on amlodipine - Continue amlodipine as previous plusgive prn hydralazine IV prn for systolic blood pressure > 160 mmHg. 5. History of cannabis abuse - Cannabis Cessation will be strongly encouraged. 6. GERD; on pantoprazole - Resume PPI. 7. History of asthma; on prednisone taper - Noted. 8. Listed allergy to lisinopril (angioedema) - Noted. We will avoid LILLIE- inhibitors and ARB's to minimize risk of recurrent. 9. DVT prophylaxis - Lovenox 40 mg subcu daily. Total time: Approximately (but not less than) 55 minutes. Charges/Coding Visit Charges Inpatient E&M: 90821 Init Hosp L2 07/06/24 0556 <Electronically signed by Lisa Jain DO> Cosigner Signature (if applicable): CC: Dr. Lexi Barnes MD; Dr. Lisa Jain DO~ Signed [facility] Work Phone: [phone] History and physical note [facility] Medical Records Department [address] [place] [id number] H&P Exam - Hospitalist 07/06/24 0218 MR#: [id number] Acct: [id number] Name: DANNY BEDOYA Rep #:[id number] : 1980 44 From: Lisa Rivas DO PCP: Dr. Lexi Barnes MD Status:ADM IN Location: [facility]3 LH912-0 [facility] - General General Date of Admission: 07/06/24 Date of Service: 07/06/24 Chief Complaint: SOB and Wheezing. HPI Narrative DANNY BEDOYA, is a 44 M with a past medical history of essential hypertension; on amlodipine, history of EtOH Abuse (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); with cirrhosis, history of liver transplant; on mycophenolate mofetil BID, tacrolimus BID and TMP-SMX, history of cannabis abuse, GERD; on pantoprazole, history of asthma; on prednisone taper listed allergy to lisinopril (angioedema), who presents to [facility] ER complaining of shortness of breath and wheezing. Mr. Bedoya reports his symptoms began on the evening of July 05, 2024 after going out to dinner with his significant other when they were walking back from dinner he noted the abrupt-onset of shortness of breath and wheezing. He states that he had been feeling fine prior to this evening without viral type illness or congestion. He denies recent sick contacts or known toxic exposures that could have triggered his asthma exacerbation. He states his symptoms are nearlyidentical to his previous acute asthma exacerbations. He admits to nonproductive cough but he denies associated fever, chills, changes in vision, runny nose, sore throat, chest pain, abdominal pain, nausea, vomiting, diarrhea,constipation, dysuria, myalgias or headache. In the ER he was diagnosed with AEAsthma complicated by clinical evidence of respiratory insufficiency patient requiring initiation of 2L NC and he was then admitted to the general medical floorfor ongoing care for stay that is expected to extend beyond 2 midnights. [facility] Medical History Cirrhosis Asthma Alcohol abuse Angioedema Home Medications ?Medication ?Instructions ?Recorded ?Last Taken ?Type fluticasone 100 mcg-salmeterol 50 1 ea IH DAILY breath ing 01/04/19 Unknown History mcg/dose blistr powdr for inhalation amlodipine 10 mg tablet (Norvasc) 10 mg PO DAILY 05/20 Unknown History mycophenolate mofetil 500 mg 500 mg PO BID 05/20/22 Un known History tablet (CellCept) tacrolimus 1 mg capsule,extended 2 mg PO BID 05/20/22 Unknown History release 24 hr albuterol sulfate 2.5 mg/3 mL 2.5 mg (3 mL) inhalation Q4H PRN 02/03/24 Unknown Rx (0.083 %) solution for nebulization #25 vials tacrolimus 1 mg capsule, 2 mg PO BID 02/03/24 Unknown History immediate-release Allergy/AdvReac Type Severity Reaction Status Date / Time lisinopril Allergy Angioedema Verified 07/05/24 21:59 Family History Father Alcoholism Asthma Mother Asthma Grandmother Cancer brain Surgical History Hx of liver transplant Social History household members: none 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 Eyes: Patient denies changes in vision or discharge from eyes. ENT: Patient denies runny nose, sore throat or ear pain. Resp: Patient admits to shortness of breath at rest with wheezing and nonproductive cough as per HPI. CV: Patient denies chest pain, palpitations, heart racing or lower extremity edema. GI: Patient denies abdominal pain, nausea, vomiting, diarrhea or constipation. : Patient denies dysuria or hematuria. MSK: Patient denies arthralgias or myalgias. Skin: Patient denies rash, abscess, wounds or jaundice. Psych: Patient denies symptoms of uncontrolled depression or anxiety. Neuro: Patient denies headache, paresthesias or focal neurologic deficits. Allergy: Patient denies lip swelling, tongue swelling or urticaria. Hematology: Patient denies easy bleeding or easy bruisability. Endocrinology: Patient denies polyuria, polydipsia or polyphagia. 14 point ROS was otherwise negative except for positives in HPI. Vital Signs Vital Signs Vital Signs: 07/05/24 21:59 07/05/24 22:12 07/05/24 22:12 Temperature 98.5 F Temperature Source Temporal Pulse Rate 107 H Respiratory Rate 30 H Respiratory Effort Labored Nasal Fl[place] Respiratory Pattern Tachypnea Blood Pressure 164/105 H Blood Pressure Mean 124 Pulse Ox 92 89 Oxygen Delivery Method Room Air Room Air Room Air Oxygen Flow Rate (L/min) 07/05/24 22:36 07/05/24 23:00 07/06/24 00:00 Temperature Temperature Source Pulse Rate 105 H 107 H 95 Respiratory Rate 20 H 24 H Respiratory Effort Respiratory Pattern Normal Blood Pressure 138/88 H Blood Pressure Mean 104 Pulse Ox 94 92 Oxygen Delivery Method Nasal Cannula Oxygen Flow Rate (L/min) 2 07/06/24 00:25 07/06/24 01:00 Temperature Temperature Source Pulse Rate 89 Respiratory Rate 20 H Respiratory Effort Respiratory Pattern Normal Blood Pressure Blood Pressure Mean Pulse Ox 90 Oxygen Delivery Method Room Air Oxygen Flow Rate (L/min) Physical Exam Const alert, oriented x3 and average body habitus Constitutional Narrative: Moderately labored respirations noted. General Appearance: cooperative HEENT normocephalic, head/scalp atraumatic, hearing grossly normal bilaterally and moist oral mucous membranes Eyes PERRL, EOMs intact bilaterally and conjunctivae normal Neck no lymphadenopathy, supple and no JVD Resp Resp Narrative: Diminished breath sounds throughout with diffuse mild inspiratory and expiratorywheezing noted - with patient stating he felt markedly improved from earlier after Solu-Medrol and breathing treatments. Auscultation: wheezes Cardio regular rate and regular rhythm GI normal to inspection, nondistended, normoactive bowel sounds, soft to palpation,non-tender and non-distended Extremity normal to inspection, full ROM and no clubbing, cyanosis or edema Skin Skin Narrative: Patient has no evidence of rash, abscess, wounds or jaundice. Neuro oriented x3, CN's II-XII intact bilaterally, moves all extremities and no focal motor deficits Sensorium / Orientation: awake, alert, oriented to person, oriented to place andoriented to time Speech: speech normal Psych affect normal Results Medical Records Data Attestation: I reviewed the patient's medical records Lab / Micro Data Attestation: I reviewed the patient's lab results. 07/05/24 22:40 07/05/24 22:40 Labs: Laboratory Results - last 24 hr 07/05/24 22:40: WBC 8.3, RBC 5.57, Hgb 16.4, Hct 46.9, MCV 84.2, MCH 29.4, MCHC 35.0, RDW Std Deviation 38.3, RDW Coeff of Christiano 12.6, Plt Count 219, MPV 8.8, Immature Gran % (Auto) 0.400, Neut % (Auto) 64.3, Lymph % (Auto) 19.5, Van Zandt % (Auto) 7.6, Eos % (Auto) 7.1 H, Baso % (Auto) 1.1 H, Absolute Neuts (auto) 5.3, Absolute Lymphs (auto) 1.62, Nucleated RBC % 0, Sodium 139, Potassium 3.8, Chloride 103, Carbon Dioxide 21.0, Anion Gap 15, BUN 18, Creatinine 1.00, Est GFR (MDRD) Non-Af 95, BUN/Creatinine Ratio 17.7, Glucose 102 H, Calcium 9.6, Magnesium 1.7 Micro: Microbiology 07/05/24 22:40 Mucosa - Nose SARS-CoV-2, Influenza & RSV (PCR) - Final ABG Data ABG results: RUN DATE: 07/06/24 [facility], DEPARTMENT OF LABORATORIES PAGE 1 RUN TIME: 555 Specimen Inquiry [address], [place], [place], [id number] PATIENT: DANNY BEDOYA LOC: [facility] U #: [id number] : 1980 AGE/SX: 44/M FACILITY: [facility] [place]OM[place] [facility] [place]07/06/[address]: Anita Mccarthy STATUS:ADM IN ED: 1 DIS: ~ SPEC #: [id number] MARIVEL: 07/06/24 STATUS: COMP REQ #: [id number] RECD: 07/06/[address]: Dr. Lisa Jain, DO ENTERED: 07/06/[address]: Dr. Lexi Barnes MD ~ Test Result Flag Reference Range VIBG Blood Gas Type DARON SITE Not entered O2 Delivery Dev Cannula FI02 2.0 VBG pH 7.42 7.32-7.42 VBG pCO2 36.2 L 41-51 mmHg VBG PO2 67 H 25-40 mmHg VBG HCO3 23 22-26 mmol/L VBG BE -1 -1.0-3.5 mmol/L VBG SO2 93 H 50-70 % VBG TCO2 24 23-33 mmol/L END OF REPORT Imaging Radiology Impression Chest X-Ray 07/05/24 23:25 IMPRESSION: No acute cardiopulmonary process. Reading Location: [facility] Assessment & Plan Assessment/Plan (1) Asthma exacerbation: QUALIFIERS: Asthma persistence: persistent Asthma severity: severe Qualified Code(s): J45.51 - Severe persistent asthma with (acute) exacerbation (2) Respiratory insufficiency: (3) History of alcohol abuse: (4) Cirrhosis: QUALIFIERS: Ascites presence: without ascites Hepatic cirrhosis type: alcoholic cirrhosis QualifiedCode(s): K70.30 - Alcoholic cirrhosis of liver without ascites (5) History of liver transplant: (6) Essential hypertension: PLAN: Plan 1. AE Asthma - Admit to general medical floor. Continue IV Solu-Medrol begun in ER plus scheduled and as needed nebulizers. Check VBG to establish baseline. 2. Respiratory insufficiency due to #1 - Wean supplemental oxygen as tolerated. 3. 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 4. Essential Hypertension; on amlodipine - Continue amlodipine as previous plusgive prn hydralazineIV prn for systolic blood pressure > 160 mmHg. 5. History of cannabis abuse - Cannabis Cessation will be strongly encouraged. 6. GERD; on pantoprazole - Resume PPI. 7. History of asthma; on prednisone taper - Noted. 8. Listed allergy to lisinopril (angioedema) - Noted. We will avoid LILLIE- inhibitors and ARB's to minimize risk of recurrent. 9. DVT prophylaxis - Lovenox 40 mg subcu daily. Total time: Approximately (but not less than) 55 minutes. Charges/Coding Visit Charges Inpatient E&M: 50790 Init Hosp L2 07/06/24 0556 Cosigner Signature (if applicable): CC: Dr. Lexi Barnes MD; Dr. Lisa Jain DO~ Signed [facility]03-11-2025 Discharge summary [facility] Note Date/Time July 06, 2024 3:1 3am [facility] Medical Records Department [address] [facility] [place] [address] Emergency Department Summary 07/05/24 MR#: [id number] Acct: [id number] Name: DANNY BEDOYA Rep #:[id number] : 1980 44 From: Jam Jiang DO PCP: Dr. Lexi Barnes MD Status:ADM IN Location: VT3 MD495-1 HPI History of Present Illness Chief Complaint: Shortness of Breath Informant: patient and spouse/S.O. Narrative Narrative: Patient is a 44-year-old male with past medical history of asthma and hypertension. He states that this evening he went out to dinner with his significant other and when they were walking back from dinner he started noticing he was developing wheezing and shortness of breath. He states that prior to this evening he has felt overall normal without sick symptoms. He denies any new exposure which could have led to an asthma exacerbation. Howeverhe has been having increasing shortness of breath and wheezing which feels similar to his past episodes of asthma attacks and therefore comes in for evaluation. [facility] Medical History Cirrhosis Asthma Alcohol abuse Angioedema Home Medications ?Medication ?Instructions ?Recorded ?Last Taken ?Type fluticasone 100 mcg-salmeterol 50 1 ea IH DAILY breath ing 01/04/19 Unknown History mcg/dose blistr powdr for inhalation amlodipine 10 mg tablet (Norvasc) 10 mg PO DAILY 05/20 Unknown History mycophenolate mofetil 500 mg 500 mg PO BID 05/20/22 Un known History tablet (CellCept) tacrolimus 1 mg capsule,extended 2 mg PO BID 05/20/22 Unknown History release 24 hr albuterol sulfate 2.5 mg/3 mL 2.5 mg (3 mL) inhalation Q4H PRN 02/03/24 Unknown Rx (0.083 %) solution for nebulization #25 vials tacrolimus 1 mg capsule, 2 mg PO BID 02/03/24 Unknown History immediate-release Allergy/AdvReac Type Severity Reaction Status Date / Time lisinopril Allergy Angioedema Verified 07/05/24 21:59 Family History Father Alcoholism Asthma Mother Asthma Grandmother Cancer brain Surgical History Hx of liver transplant Social History household members: none current occupational status: employed current occupation: [employer] Smoking Status: Never smoker Electronic Cigarette Use: not used alcohol intake: former details: former heavy drinker, 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 substance use type: marijuana what type of physical activity do you participate in: none do you feel safe at home: Yes ROS ROS ED Constitutional Constitutional ED: Denies chills or fever(s) Eyes Eyes: Denies blurry vision or change in vision ENT ENT ED: Denies rhinorrhea or sore throat Cardiovascular Cardiovascular: Denies chest pain Respiratory/Chest Respiratory/Chest: Reports cough and dyspnea Gastrointestinal Gastrointestinal: Denies abdominal pain, diarrhea, nausea or vomiting Genitourinary Genitourinary ED: Denies dysuria Musculoskeletal Musculoskeletal: Denies myalgias Integumentary Denies rash Neurologic Neurologic: Denies headache(s) Hematologic/Lymphatic Hematologic/Lymphatic: Denies easy bleeding or easy bruising Allergic/Immunologic Allergic/Immunologic ED: Denies mouth swelling, tongue swelling or urticaria EXAM Physical Exam Const Vital Signs: 07/05/24 21:59 07/05/24 22:12 07/05/24 22:12 Temperature 98.5 F Temperature Source Temporal Pulse Rate 107 H Respiratory Rate 30 H Respiratory Effort Labored Nasal Fl[place] Head [place] Respiratory Pattern Tachypnea Blood Pressure 164/105 H Blood Pressure Mean 124 Pulse Ox 92 89 Oxygen Delivery Method Room Air Room Air Room Air Oxygen Flow Rate (L/min) 07/05/24 22:36 07/05/24 23:00 07/06/24 00:00 Temperature Temperature Source Pulse Rate 105 H 107 H 95 Respiratory Rate 20 H 24 H Respiratory Effort Respiratory Pattern Normal Blood Pressure 138/88 H Blood Pressure Mean 104 Pulse Ox 94 92 Oxygen Delivery Method Nasal Cannula Oxygen Flow Rate (L/min) 2 07/06/24 00:25 07/06/24 01:00 07/06/24 02:00 Temperature Temperature Source Pulse Rate 89 Respiratory Rate 20 H Respiratory Effort Respiratory Pattern Normal Blood Pressure Blood Pressure Mean Pulse Ox 90 97 Oxygen Delivery Method Room Air Nasal Cannula Oxygen Flow Rate (L/min) 3 07/06/24 02:33 Temperature 98.1 F Temperature Source Pulse Rate 92 Respiratory Rate 20 H Respiratory Effort Respiratory Pattern Blood Pressure 144/101 H Blood Pressure Mean 115 Pulse Ox 97 Oxygen Delivery Method Oxygen Flow Rate (L/min) Positive well nourished and well developed Constitutional Narrative: Patient is in mild respiratory distress with tachypnea and accessory muscle use General Appearance ED: well developed; Negative for pallor HEENT Reports moist mucous membranes HEENT Narrative: No tongue or lip swelling no oral lesions no airway edema or compromise Eyes PERRL and EOMs intact bilaterally Neck supple and no JVD Chest Wall palpation of chest normal Chest Narrative: No bony deformity or subcutaneous emphysema noted Resp Resp Narrative: Patient is in respiratory distress with tachypnea and accessory muscle use Breath sounds are diminished throughout with diffuse inspiratory and expiratory wheezing Cardio regular rhythm Rate: tachycardic Extremity normal to inspection Extremity Narrative: No asymmetric edema no pitting edema negative Homans' sign bilaterally Neuro oriented x3, CN's II-XII intact bilaterally and no sensory deficits noted Sensorium / Orientation: alert Motor Exam: strength 5/5 throughout Psych mental status grossly normal Skin no rashes or lesions noted General Skin Exam: Negative for jaundice or pallor MDM MDM MDM Narrative Medical decision making narrative: Patient arrived to the ER hypertensive but has a past medical history of this. He reported increasing shortness of breath and wheeze after dinner. He has a history of asthma. He denies any recent sick symptoms going against an infectious process such as COVID influenza RSV or pneumonia. However as these are possibilities for his asthma exacerbation a chest x-ray and viral swab were obtained. As there is also potential for acute blood loss anemia or clinically significant electrolyte abnormality basic blood work was obtained. Labs revealed no clinically significant finding. After receiving 2 DuoNeb nebulizer treatments and albuterol nebulizer treatment and 125 of Solu-Medrol patient had moderate improvement of his lung sounds but work of breathing was still present. When ambulated he dropped his pulse ox to 87/88%. He does not typically require oxygen and even at rest he has continued work of breathing and borderline pulse ox. As his symptoms have recently started do not feel he is safe for discharge and will most likely need to be watched in the hospital untilhis steroids can take effect. The patient states that because of his asthma history this has happened in the past and he feels this is also the most appropriate plan of care. The case was discussed with the hospitalist who agrees to admit the patient for continued observation in order to ensure that his breathing improved with steroids and breathing treatments versus progresses to the need for noninvasive ventilation. History & Record Review Discussion w/independent historian: Patient and Significant other Lab Data Attestation: I reviewed the patient's lab results. Labs: Laboratory Results - last 24 hr 07/05/24 22:40 WBC 8.3 RBC 5.57 Hgb 16.4 Hct 46.9 MCV 84.2 MCH 29.4 MCHC 35.0 RDW Std Deviation 38.3 RDW Coeff of Christiano 12.6 Plt Count 219 MPV 8.8 Immature Gran % (Auto) 0.400 Neut % (Auto) 64.3 Lymph % (Auto) 19.5 Van Zandt % (Auto) 7.6 Eos % (Auto) 7.1 H Baso % (Auto) 1.1 H Absolute Neuts (auto) 5.3 Absolute Lymphs (auto) 1.62 Nucleated RBC % 0 Sodium 139 Potassium 3.8 Chloride 103 Carbon Dioxide 21.0 Anion Gap 15 BUN 18 Creatinine 1.00 Est GFR (MDRD) Non-Af 95 BUN/Creatinine Ratio 17.7 Glucose 102 H Calcium 9.6 Magnesium 1.7 Radiography Diagnostic Testing: Clinical Impression(s) from Imaging Studies Chest X-Ray 07/05/24 23:25 IMPRESSION: No acute cardiopulmonary process. Reading Location: [facility] Chest x-ray as interpreted by the emergency medicine physician reveals no acute infiltrate pneumothorax or pleural effusion Discharge Plan Dx/Rx/DC Orders Clinical Impression: Asthma exacerbation, Essential hypertension, History of alcohol abuse, Liver transplant recipient Disposition Disposition: Acute Care Hospital [facility] What to do if you have Problems For any increased pain, shortness of breath, bleeding, nausea or vomiting, chestpain, or any unexpected problems, contact your Primary Care Provider. Call [facility] ([phone]) or report to the closest Emergency Room. Call 911 if necessary. 07/06/24312 <Electronically signed by Jam Jiang DO> Cosigner Signature (if applicable): CC: Dr. Lexi Barnes MD ~ Signed [facility] Work Phone: 1(577) 428-998703-11-2025 Evaluation note* Diagnosis Onset Date Resolution Status Admit Date Asthma exacerbation acute July 06, 2024 2:36am Essential hypertension acute [facility] 2024 2:36am History of alcohol abuse acute July 06, 2024 2:36am Respiratory insufficiency acute July 06, 2024 2:36am Cirrhosis inactive July 06 2:36am History of liver transplant inactive July 06, 2024 2:36am [facility] Work Phone: 1(967) 489-879303-11-2025 Evaluation note* Diagnosis Onset Date Resolution Status Admit Date Asthma exacerbation acute July 06, 2024 2:36am Essential hypertension acute [facility] 2024 2:36am History of alcohol abuse acute July 06, 2024 2:36am Respiratory insufficiency acute July 06, 2024 2:36am Cirrhosis inactive July 06 2:36am History of liver transplant inactive July 06, 2024 2:36am Acute bacterial bronchitis acute July 22, 2024 3:40am Acute hypoxic respiratory failure acute July 22, 2024 3:40am Asthma exacerbation acute July 22, 2024 3:40am Essential hypertension acute [facility] 2024 3:40am History of alcohol abuse acute July 22, 2024 3:40am Hypoxia acute July 22 3:40am Liver transplant recipient acute July 22, 2024 3:40am [facility] Work Phone: 1(267) 287-271303-11-2025 Evaluation note* Diagnosis Onset Date Resolution Status Admit Date Asthma exacerbation acute July 06, 2024 2:36am Essential hypertension acute [facility] 2024 2:36am History of alcohol abuse acute July 06, 2024 2:36am Respiratory insufficiency acute July 06, 2024 2:36am Cirrhosis inactive July 06 2:36am History of liver transplant inactive July 06, 2024 2:36am Acute bacterial bronchitis acute July 22, 2024 3:40am Acute hypoxic respiratory failure ac flori July 22, 2024 3:40am Asthma exacerbation acute July 22, 2024 3:40am Essential hypertension acute [facility] 2024 3:40am History of alcohol abuse acute July 22, 2024 3:40am Hypophosphatemia acute July 222024 3:40am Hypoxia acute July 22 3:40am Liver transplant recipient acute July 22, 2024 3:40am [facility] Work Phone: 1(449) 221-792803-11-2025 Discharge summary [facility] Medical Records Department [address] [place] [address] Emergency Department Summary 07/05/24 MR#: [id number] Acct: [id number] Name: DANNY BEDOYA Rep #:[id number] : 1980 44 From: Jam Jiang DO PCP: Dr. Lexi Barnes MD Status:ADM IN Location: [place] [id number] HPI History of Present Illness Chief Complaint: Shortness of Breath Informant: patient and spouse/S.O. Narrative Narrative: Patient is a 44-year-old male with past medical history of asthma and hypertension. He states that this evening he went out to dinner with his significant other and when they were walking back from dinner he started noticing he was developing wheezing and shortness of breath. He states that prior to this evening he has felt overall normal without sick symptoms. He denies any new exposure which could have led to an asthma exacerbation. Howeverhe has been having increasing shortness of breath andwheezing which feels similar to his past episodes of asthma attacks and therefore comes in for evalu ation. [facility] Medical History Cirrhosis Asthma Alcohol abuse Angioedema Home Medications ?Medication ?Instructions ?Recorded ?Last Taken ?Type fluticasone 100 mcg-salmeterol 50 1 ea IH DAILY breath ing 01/04/19 Unknown History mcg/dose blistr powdr for inhalation amlodipine 10 mg tablet (Norvasc) 10 mg PO DAILY 05/20 Unknown History mycophenolate mofetil 500 mg 500 mg PO BID 05/20/22 Un known History tablet (CellCept) tacrolimus 1 mg capsule,extended 2 mg PO BID 05/20/22 Unknown History release 24 hr albuterol sulfate 2.5 mg/3 mL 2.5 mg (3 mL) inhalation Q4H PRN 02/03/24 Unknown Rx (0.083 %) solution for nebulization #25 vials tacrolimus 1 mg capsule, 2 mg PO BID 02/03/24 Unknown History immediate-release Allergy/AdvReac Type Severity Reaction Status Date / Time lisinopril Allergy Angioedema Verified 07/05/24 21:59 Family History Father Alcoholism Asthma Mother Asthma Grandmother Cancer brain Surgical History Hx of liver transplant Social History household members: none current occupational status: employed 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 [employer] Smoking Status: Never smoker Electronic Cigarette Use: not used alcohol intake: former details: former heavy drinker, 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 substance use type: marijuana what type of physical activity do you participate in: none do you feel safe at home: Yes ROS ROS ED Constitutional Constitutional ED: Denies chills or fever(s) Eyes Eyes: Denies blurry vision or change in vision ENT ENT ED: Denies rhinorrhea or sore throat Cardiovascular Cardiovascular: Denies chest pain Respiratory/Chest Respiratory/Chest: Reports cough and dyspnea Gastrointestinal Gastrointestinal: Denies abdominal pain, diarrhea, nausea or vomiting Genitourinary Genitourinary ED: Denies dysuria Musculoskeletal Musculoskeletal: Denies myalgias Integumentary Denies rash Neurologic Neurologic: Denies headache(s) Hematologic/Lymphatic Hematologic/Lymphatic: Denies easy bleeding or easy bruising Allergic/Immunologic Allergic/Immunologic ED: Denies mouth swelling, tongue swelling or urticaria EXAM Physical Exam Const Vital Signs: 07/05/24 21:59 07/05/24 22:12 07/05/24 22:12 Temperature 98.5 F Temperature Source Temporal Pulse Rate 107 H Respiratory Rate 30 H Respiratory Effort Labored Nasal Flaring Head Bobbing Respiratory Pattern Tachypnea Blood Pressure 164/105 H Blood Pressure Mean 124 Pulse Ox 92 89 Oxygen Delivery Method Room Air Room Air Room Air Oxygen Flow Rate (L/min) 07/05/24 22:36 07/05/24 23:00 07/06/24 00:00 Temperature Temperature Source Pulse Rate 105 H 107 H 95 Respiratory Rate 20 H 24 H Respiratory Effort Respiratory Pattern Normal Blood Pressure 138/88 H Blood Pressure Mean 104 Pulse Ox 94 92 Oxygen Delivery Method Nasal Cannula Oxygen Flow Rate (L/min) 2 07/06/24 00:25 07/06/24 01:00 07/06/24 02:00 Temperature Temperature Source Pulse Rate 89 Respiratory Rate 20 H Respiratory Effort Respiratory Pattern Normal Blood Pressure Blood Pressure Mean Pulse Ox 90 97 Oxygen Delivery Method Room Air Nasal Cannula Oxygen Flow Rate (L/min) 3 07/06/24 02:33 Temperature 98.1 F Temperature Source Pulse Rate 92 Respiratory Rate 20 H Respiratory Effort Respiratory Pattern Blood Pressure 144/101 H Blood Pressure Mean 115 Pulse Ox 97 Oxygen Delivery Method Oxygen Flow Rate (L/min) Positive well nourished and well developed Constitutional Narrative: Patient is in mild respiratory distress with tachypnea and accessory muscle use General Appearance ED: well developed; Negative for pallor HEENT Reports moist mucous membranes HEENT Narrative: No tongue or lip swelling no oral lesions no airway edema or compromise Eyes PERRL and EOMs intact bilaterally Neck supple and no JVD Chest Wall palpation of chest normal Chest Narrative: No bony deformity or subcutaneous emphysema noted Resp Resp Narrative: Patient is in respiratory distress with tachypnea and accessory muscle use Breath sounds are diminished throughout with diffuse inspiratory and expiratory wheezing Cardio regular rhythm Rate: tachycardic Extremity normal to inspection Extremity Narrative: No asymmetric edema no pitting edema negative Homans' sign bilaterally Neuro oriented x3, CN's II-XII intact bilaterally and no sensory deficits noted Sensorium / Orientation: alert Motor Exam: strength 5/5 throughout Psych mental status grossly normal Skin no rashes or lesions noted General Skin Exam: Negative for jaundice or pallor MDM MDM MDM Narrative Medical decision making narrative: Patient arrived to the ER hypertensive but has a past medical history of this. He reported increasing shortness of breath and wheeze after dinner. He has a history of asthma. He denies any recent sick symptoms going against an infectious process such as COVID influenza RSV or pneumonia. However as these are possibilities for his asthma exacerbation a chest x-ray and viral swab were obtained. As there is also potential for acute blood loss anemia or clinically significant electrolyte abnormalitybasic blood work was obtained. Labs revealed no clinically significant finding. After receiving 2 DuoNeb nebulizer treatments and albuterol nebulizer treatment and 125 of Solu-Medrol patient had moderate improvement of his lung sounds but work of breathing was still present. When ambulated he dropped his pulse ox to 87/88%. He does not typically require oxygen and even at rest he has continued work of breathing and borderline pulse ox. As his symptoms have recently started do not feel he is safe for discharge and will most likely need to be watched in the hospital untilhis steroids can take effect. The patient states that because of his asthma history this has happened in the past and he feels this is also the most appropriate plan of care. The case was discussed with the hospitalist who agrees to admit the patient for continued observation in order to ensure that his breathing improved with steroids and breathing treatments versus progresses to the need for noninvasive ventilation. History & Record Review Discussion w/independent historian: Patient and Significant other Lab Data Attestation: I reviewed the patient's lab results. Labs: Laboratory Results - last 24 hr 07/05/24 22:40 WBC 8.3 RBC 5.57 Hgb 16.4 Hct 46.9 MCV 84.2 MCH 29.4 MCHC 35.0 RDW Std Deviation 38.3 RDW Coeff of Christiano 12.6 Plt Count 219 MPV 8.8 Immature Gran % (Auto) 0.400 Neut % (Auto) 64.3 Lymph % (Auto) 19.5 Van Zandt % (Auto) 7.6 Eos % (Auto) 7.1 H Baso % (Auto) 1.1 H Absolute Neuts (auto) 5.3 Absolute Lymphs (auto) 1.62 Nucleated RBC % 0 Sodium 139 Potassium 3.8 Chloride 103 Carbon Dioxide 21.0 Anion Gap 15 BUN 18 Creatinine 1.00 Est GFR (MDRD) Non-Af 95 BUN/Creatinine Ratio 17.7 Glucose 102 H Calcium 9.6 Magnesium 1.7 Radiography Diagnostic Testing: Clinical Impression(s) from Imaging Studies Chest X-Ray 07/05/24 23:25 IMPRESSION: No acute cardiopulmonary process. Reading Location: [facility] Chest x-ray as interpreted by the emergency medicine physician reveals no acute infiltrate pneumothorax or pleural effusion Discharge Plan Dx/Rx/DC Orders Clinical Impression: Asthma exacerbation, Essential hypertension, History of alcohol abuse, Liver transplant recipient Disposition Disposition: Acute Care [facility] What to do if you have Problems For any increased pain, shortness of breath, bleeding, nausea or vomiting, chestpain, or any unexpected problems, contact your Primary Care Provider. Call [facility] ([phone]) or report tothe closest Emergency Room. Call 911 if necessary. 07/06/24312 Cosigner Signature (if applicable): CC: Dr. Lexi Barnes MD ~ Signed [facility]03-10-2025 Radiology Diagnostic study note [facility] Imaging Services [address] [place] [address] Chest PA and Lateral MR#: [id number] Acct: [id number] Name: DANNY BEDOYA Rep #: [id number] : 1980 M 44 From: Shannon Chawla MD PCP: Dr. Lexi Barnes MD Status: REG ER Study:Chest PA and Lateral Date of Exam: 07/05/24 Exam# [id number] Ordering Dr: Erin Jiang DO PROCEDURE: CHEST PA AND LATERAL REASON FOR EXAM: DYSPNEA TECHNIQUE: Frontal and lateral views of the chest. COMPARISON: 06/11/2024 FINDINGS: The cardiothymic contour is normal. The lungs are clear. The bones are unremarkable. RAD/Chest PA and Lateral IMPRESSION: No acute cardiopulmonary process. Reading Location: [facility] CC: Dr. Lexi Barnes MD; Jam Jiang DO ~ Bulker: Signed [facility]03-10-2025 Discharge summary Author Jam Jiang [facility] Note Date/Time July 06, 2024 3:1 3am [facility] Medical Records Department [address] [place] [address] Emergency Department Summary 07/05/24 MR#: [id number] Acct: [id number] Name: DANNY BEDOYA Rep #:[id number] : 1980 44 From: Jam Jiang DO PCP: Dr. Lexi Barnes MD Status:ADM IN Location: [place] [address] HPI History of Present Illness Chief Complaint: Shortness of Breath Informant: patient and spouse/S.O. Narrative Narrative: Patient is a 44-year-old male with past medical history of asthma and hypertension. He states that this evening he went out to dinner with his significant other and when they were walking back from dinner he started noticing he was developing wheezing and shortness of breath. He states that prior to this evening he has felt overall normal without sick symptoms. He denies any new exposure which could have led to an asthma exacerbation. Howeverhe has been having increasing shortness of breath and wheezing which feels similar to his past episodes of asthma attacks and therefore comes in for evaluation. [facility] Medical History Cirrhosis Asthma Alcohol abuse Angioedema Home Medications ?Medication ?Instructions ?Recorded ?Last Taken ?Type fluticasone 100 mcg-salmeterol 50 1 ea IH DAILY breath ing 01/04/19 Unknown History mcg/dose blistr powdr for inhalation amlodipine 10 mg tablet (Norvasc) 10 mg PO DAILY 05/20 Unknown History mycophenolate mofetil 500 mg 500 mg PO BID 05/20/22 Un known History tablet (CellCept) tacrolimus 1 mg capsule,extended 2 mg PO BID 05/20/22 Unknown History release 24 hr albuterol sulfate 2.5 mg/3 mL 2.5 mg (3 mL) inhalation Q4H PRN 02/03/24 Unknown Rx (0.083 %) solution for nebulization #25 vials tacrolimus 1 mg capsule, 2 mg PO BID 02/03/24 Unknown History immediate-release Allergy/AdvReac Type Severity Reaction Status Date / Time lisinopril Allergy Angioedema Verified 07/05/24 21:59 Family History Father Alcoholism Asthma Mother Asthma Grandmother Cancer brain Surgical History Hx of liver transplant Social History household members: none current occupational status: employed 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[employer] Smoking Status: Never smoker Electronic Cigarette Use: not used alcohol intake: former details: former heavy drinker, 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 substance use type: marijuana what type of physical activity do you participate in: none do you feel safe at home: Yes ROS ROS ED Constitutional Constitutional ED: Denies chills or fever(s) Eyes Eyes: Denies blurry vision or change in vision ENT ENT ED: Denies rhinorrhea or sore throat Cardiovascular Cardiovascular: Denies chest pain Respiratory/Chest Respiratory/Chest: Reports cough and dyspnea Gastrointestinal Gastrointestinal: Denies abdominal pain, diarrhea, nausea or vomiting Genitourinary Genitourinary ED: Denies dysuria Musculoskeletal Musculoskeletal: Denies myalgias Integumentary Denies rash Neurologic Neurologic: Denies headache(s) Hematologic/Lymphatic Hematologic/Lymphatic: Denies easy bleeding or easy bruising Allergic/Immunologic Allergic/Immunologic ED: Denies mouth swelling, tongue swelling or urticaria EXAM Physical Exam Const Vital Signs: 07/05/24 21:59 07/05/24 22:12 07/05/24 22:12 Temperature 98.5 F Temperature Source Temporal Pulse Rate 107 H Respiratory Rate 30 H Respiratory Effort Labored Nasal Flaring Head Bobbing Respiratory Pattern Tachypnea Blood Pressure 164/105 H Blood Pressure Mean 124 Pulse Ox 92 89 Oxygen Delivery Method Room Air Room Air Room Air Oxygen Flow Rate (L/min) 07/05/24 22:36 07/05/24 23:00 07/06/24 00:00 Temperature Temperature Source Pulse Rate 105 H 107 H 95 Respiratory Rate 20 H 24 H Respiratory Effort Respiratory Pattern Normal Blood Pressure 138/88 H Blood Pressure Mean 104 Pulse Ox 94 92 Oxygen Delivery Method Nasal Cannula Oxygen Flow Rate (L/min) 2 07/06/24 00:25 07/06/24 01:00 07/06/24 02:00 Temperature Temperature Source Pulse Rate 89 Respiratory Rate 20 H Respiratory Effort Respiratory Pattern Normal Blood Pressure Blood Pressure Mean Pulse Ox 90 97 Oxygen Delivery Method Room Air Nasal Cannula Oxygen Flow Rate (L/min) 3 07/06/24 02:33 Temperature 98.1 F Temperature Source Pulse Rate 92 Respiratory Rate 20 H Respiratory Effort Respiratory Pattern Blood Pressure 144/101 H Blood Pressure Mean 115 Pulse Ox 97 Oxygen Delivery Method Oxygen Flow Rate (L/min) Positive well nourished and well developed Constitutional Narrative: Patient is in mild respiratory distress with tachypnea and accessory muscle use General Appearance ED: well developed; Negative for pallor HEENT Reports moist mucous membranes HEENT Narrative: No tongue or lip swelling no oral lesions no airway edema or compromise Eyes PERRL and EOMs intact bilaterally Neck supple and no JVD Chest Wall palpation of chest normal Chest Narrative: No bony deformity or subcutaneous emphysema noted Resp Resp Narrative: Patient is in respiratory distress with tachypnea and accessory muscle use Breath sounds are diminished throughout with diffuse inspiratory and expiratory wheezing Cardio regular rhythm Rate: tachycardic Extremity normal to inspection Extremity Narrative: No asymmetric edema no pitting edema negative Homans' sign bilaterally Neuro oriented x3, CN's II-XII intact bilaterally and no sensory deficits noted Sensorium / Orientation: alert Motor Exam: strength 5/5 throughout Psych mental status grossly normal Skin no rashes or lesions noted General Skin Exam: Negative for jaundice or pallor MDM MDM MDM Narrative Medical decision making narrative: Patient arrived to the ER hypertensive but has a past medical history of this. He reported increasing shortness of breath and wheeze after dinner. He has a history of asthma. He denies any recent sick symptoms going against an infectious process such as COVID influenza RSV or pneumonia. However as these are possibilities for his asthma exacerbation a chest x-ray and viral swab were obtained. As there is also potential for acute blood loss anemia or clinically significant electrolyte abnormality basic blood work was obtained. Labs revealed no clinically significant finding. After receiving 2 DuoNeb nebulizer treatments and albuterol nebulizer treatment and 125 of Solu-Medrol patient had moderate improvement of his lung sounds but work of breathing was still present. When ambulated he dropped his pulse ox to 87/88%. He does not typically require oxygen and even at rest he has continued work of breathing and borderline pulse ox. As his symptoms have recently started do not feel he is safe for discharge and will most likely need to be watched in the hospital untilhis steroids can take effect. The patient states that because of his asthma history this has happened in the past and he feels this is also the most appropriate plan of care. The case was discussed with the hospitalist who agrees to admit the patient for continued observation in order to ensure that his breathing improved with steroids and breathing treatments versus progresses to the need for noninvasive ventilation. History & Record Review Discussion w/independent historian: Patient and Significant other Lab Data Attestation: I reviewed the patient's lab results. Labs: Laboratory Results - last 24 hr 07/05/24 22:40 WBC 8.3 RBC 5.57 Hgb 16.4 Hct 46.9 MCV 84.2 MCH 29.4 MCHC 35.0 RDW Std Deviation 38.3 RDW Coeff of Christiano 12.6 Plt Count 219 MPV 8.8 Immature Gran % (Auto) 0.400 Neut % (Auto) 64.3 Lymph % (Auto) 19.5 Van Zandt % (Auto) 7.6 Eos % (Auto) 7.1 H Baso % (Auto) 1.1 H Absolute Neuts (auto) 5.3 Absolute Lymphs (auto) 1.62 Nucleated RBC % 0 Sodium 139 Potassium 3.8 Chloride 103 Carbon Dioxide 21.0 Anion Gap 15 BUN 18 Creatinine 1.00 Est GFR (MDRD) Non-Af 95 BUN/Creatinine Ratio 17.7 Glucose 102 H Calcium 9.6 Magnesium 1.7 Radiography Diagnostic Testing: Clinical Impression(s) from Imaging Studies Chest X-Ray 07/05/24 23:25 IMPRESSION: No acute cardiopulmonary process. Reading Location: [facility] Chest x-ray as interpreted by the emergency medicine physician reveals no acute infiltrate pneumothorax or pleural effusion Discharge Plan Dx/Rx/DC Orders Clinical Impression: Asthma exacerbation, Essential hypertension, History of alcohol abuse, Liver transplant recipient Disposition Disposition: Acute Care [facility] What to do if you have Problems For any increased pain, shortness of breath, bleeding, nausea or vomiting, chestpain, or any unexpected problems, contact your Primary Care Provider. Call [facility] ([phone]) or report to the closest Emergency Room. Call 911 if necessary. 07/06/243 <Electronically signed by Jam Jiang DO> Cosigner Signature (if applicable): CC: Dr. Lexi Barnes MD ~ Signed [facility] Work Phone: 1(511) 432-117510-22-2024 NoteHNO ID: [id number] Author: DANY PAINTER MD Service: ? Author Type: Physician Type: Progress Notes Filed: 02/17/2024 07:25 Note Text: HISTORY AND PHYSICAL Danny Bedoya 1980 REFERRING PHYSICIAN: Self CHIEF COMPLAINT: Consult (hernia) HPI: The patient is a 44 year old male with a complaint of bulge and discomfort in his right inguinal area. This has been going on for many months. He has been using a hernia belt for the discomfort. Patient is a recipient of a liver transplant and he is instructed not to take ibuprofen and only use Tylenol he also says that he notices some slight discomfort in his left groin as well. He has had no change in his bowel or bladder habits he has no nausea vomiting. PAST MEDICAL HISTORY Diagnosis Date Alcohol abuse Angioedema Anxiety disorder Asthma 01/04/2015 Dr. Massimo Lam Cirrhosis (HCC) Fracture of right foot 02/24/2015 History of liver transplant (HCC) Major depression PAST SURGICAL HISTORY Procedure Laterality Date LIVER TRANSPLANT HX Current Outpatient Medications Medication Sig tacrolimus IR (PROGRAF) 1 mg capsule Take 5 mg by mouth once daily. 3 mg in am, 2 mg in pm mycophenolate mofetil (CELLCEPT) 250 mg capsule Take 250 mg by mouth two times a day. fluticasone-salmeterol HFA (ADVAIR HFA) 115-21 mcg/actuation inhaler Inhale 2 Puffs as instructed two times a day. albuterol (PROVENTIL) 2.5 mg /3 mL (0.083 %) nebulizer solution Use 3 mL via nebulizer every 6 hours as needed for Wheezing/Shortness of Breath. hydroCHLOROthiazide (HYDRODIURIL, ESIDRIX) 25 mg tablet Take 1 tablet by mouth once daily. fluticasone (FLONASE) 50 mcg/actuation nasal spray Use 2 Sprays in each nostril once daily. Rinse mouth after use. No current facility-administered medications for this visit. ALLERGIES: Environmental Allergies [Other] and Lisinopril PERSONAL HISTORY: Social History Tobacco Use Smoking status: Never Smokeless tobacco: Never Vaping Use Vaping status: Never Used Substance Use Topics Alcohol use: Not Currently Comment: former heavy user, 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 Drug use: Yes Types: Marijuana FAMILY HISTORY: FAMILY HISTORY Problem Relation Age of Onset Asthma Mother Asthma Father Psychiatry Father bipolar Alcohol abuse Father REVIEW OF SYMPTOMS: The review of systems data was entered by the nurse and reviewed by az Nursing Notes: Lona Partida RN 02/16/2024 4:06 PM Signed REVIEW OF SYSTEMS: General: The patient denies fatigue, denies weight loss, denies weight gain, denies feeling hot, and denies feelings of cold. Eyes: The patient denies glaucoma, denies eye injury/surgery, does not wear glasses or contacts. Ear/Nose/Throat: The patient denies allergies, denies hayfever, denies ear infections, and denies bloody noses. Cardiovascular: The patient denies chest pain, denies heart disease, denies high blood pressure,denies cardiac stent, denies prior heart attack, denies irregular heart beat, denies high cholesterol, denies poor circulation, denies heart failure, other cardiac issues, denies claudication, denies cold feet, denies peripheral arterial stent. Respiratory: The patient denies tuberculosis, denies pneumonia, denies frequent cough, denies pulmonary embolism, denies shortness of breath, and denies coughing up blood. Gastrointestinal: The patient denies difficulty swallowing, denies acid reflux, denies ulcers, denies vomiting, denies jaundice/hepatitis, denies gallbladder problems, denies black or tarry stools, denies hemorrhoids, denies bleeding from rectum, denies diverticulitis, denies constipation, denies diarrhea, denies loss of stool control, and NOTES hernias. Kidney/Bladder: The patient denies kidney stones, denies urine infections, and denies bloody urine. Skin: The patient denies a history of skin cancer, denies bleeding/changing moles, and denies a history of skin rash. Neurologic: The patient denies a history of epilepsy/convulsions, denies headaches, denies head/spinal injuries, and denies stroke/TIA. Psychiatric: The patient denies psychiatric medications, denies depression, and denies voices, denies substance abuse. Endocrine: The patient denies thyroid disorders, denies diabetes, and denies hormonal problems. Hematologic: The patient denies a history of bruising, denies bleeding, and denies anemia, denies blood clots. Infections: The patient denies a history of measles and mumps, denies rheumatic fever, and denies sexually transmitted diseases. Musculoskeletal: The patient denies back pain/injury, denies back problems, denies sciatica, denies knee/foot trouble, denies arthritis, or denies gout. When was patient's last Mammogram screening? N/A Last Colonoscopy: none Lona Partida RN PHYSICAL EXAMINATION: General: The patient is 44 year old male, well nourished, well hydrated in no acute distress. The patient is oriented to time, quita (more content not included)...[facility]10-22-2024 History of Present illness Narrative* Dany Painter MD - 02/17/2024 7:21 AM EDT HISTORY AND PHYSICAL Danny Bedoya 1980 REFERRING PHYSICIAN: Self CHIEF COMPLAINT: Consult (hernia) HPI: The patient is a 44 year old male with a complaint of bulge and discomfort in his right inguinal area. This has been going on for many months. He has been using a hernia belt for the discomfort.Patient is a recipient of a liver transplant and he is instructed not to take ibuprofen and only use Tylenol he also says that he notices some slight discomfort in his left groin as well. He has had no change in his bowel or bladder habits he has no nausea vomiting. PAST MEDICAL HISTORY Diagnosis Date Alcohol abuse Angioedema Anxiety disorder Asthma 01/04/2015 Dr. Massimo Lam Cirrhosis (HCC) Fracture of right foot 02/24/2015 History of liver transplant (HCC) Major depression PAST SURGICAL HISTORY Procedure Laterality Date LIVER TRANSPLANT HX Current Outpatient Medications Medication Sig tacrolimus IR (PROGRAF) 1 mg capsule Take 5 mg by mouth once daily. 3 mg in am, 2 mg in pm mycophenolate mofetil (CELLCEPT) 250 mg capsule Take 250 mg by mouth two times a day. fluticasone-salmeterol HFA (ADVAIR HFA) 115-21 mcg/actuation inhaler Inhale 2 Puffs as instructed two times a day. albuterol (PROVENTIL) 2.5 mg /3 mL (0.083 %) nebulizer solution Use 3 mL via nebulizer every 6 hours as needed for Wheezing/Shortness of Breath. hydroCHLOROthiazide (HYDRODIURIL, ESIDRIX) 25 mg tablet Take 1 tablet by mouth once daily. fluticasone (FLONASE) 50 mcg/actuation nasal spray Use 2 Sprays in each nostril once daily. Rinse mouth after use. No current facility-administered medications for this visit. ALLERGIES: Environmental Allergies [Other] and Lisinopril PERSONAL HISTORY: Social History Tobacco Use Smoking status: Never Smokeless tobacco: Never Vaping Use Vaping status: Never Used Substance Use Topics Alcohol use: Not Currently Comment: former heavy user, 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 Drug use: Yes Types: Marijuana FAMILY HISTORY: FAMILY HISTORY Problem Relation Age of Onset Asthma Mother Asthma Father Psychiatry Father bipolar Alcohol abuse Father REVIEW OF SYMPTOMS: The review of systems data was entered by the nurse and reviewed by me Nursing Notes: Lona Partida RN 02/16/2024 4:06 PM Signed REVIEW OF SYSTEMS: General: The patient denies fatigue, denies weight loss, denies weight gain, denies feeling hot, and denies feelings of cold. Eyes: The patient denies glaucoma, denies eye injury/surgery, does not wear glasses or contacts. Ear/Nose/Throat: The patient denies allergies, denies hayfever, denies ear infections, and denies bloody noses. Cardiovascular: The patient denies chest pain, denies heart disease, denies high blood pressure,denies cardiac stent, denies prior heart attack, denies irregular heart beat, denies high cholesterol, denies poor circulation, denies heart failure, other cardiac issues, denies claudication, denies cold feet, denies peripheral arterial stent. Respiratory: The patient denies tuberculosis, denies pneumonia, denies frequent cough, denies pulmonary embolism, denies shortness of breath, and denies coughing up blood. Gastrointestinal: The patient denies difficulty swallowing, denies acid reflux, denies ulcers, denies vomiting, denies jaundice/hepatitis, denies gallbladder problems, denies black or tarry stools, denies hemorrhoids, denies bleeding from rectum, denies diverticulitis, denies constipation, denies diarrhea, denies loss of stool control, and NOTES hernias. Kidney/Bladder: The patient denies kidney stones, denies urine infections, and denies bloody urine. Skin: The patient denies a history of skin cancer, denies bleeding/changing moles, and denies a history of skin rash. Neurologic: The patient denies a history of epilepsy/convulsions, denies headaches, denies head/spinal injuries, and denies stroke/TIA. Psychiatric: The patient denies psychiatric medications, denies depression, and denies voices, denies substance abuse. Endocrine: The patient denies thyroid disorders, denies diabetes, and denies hormonal problems. Hematologic: The patient denies a history of bruising, denies bleeding, and denies anemia, denies blood clots. Infections: The patient denies a history of measles and mumps, denies rheumatic fever, and denies sexually transmitted diseases. Musculoskeletal: The patient denies back pain/injury, denies back problems, denies sciatica, deniesknee/foot trouble, denies arthritis, or denies gout. When was patient's last Mammogram screening? N/A Last Colonoscopy: none Lona Partida RN PHYSICAL EXAMINATION: General: The patient is 44 year old male, well nourished, well hydrated in no acute distress. The patient is oriented to time, place, and person. VITALS: Blood pressure 140/94, pulse 80, temperature 36.9 C (98.4 F), height 162.6 cm (5' 4"), weight 69.5 kg (153 lb 3.2 oz), SpO2 99%. HEENT: Normal cephalic, ataumatic, pupils are equally round, sclera are anicteric, mucous membranesare moist, oropharynx is clear. Neck has no masses, asymmetry or lymphadenopathy. Thyroid is unremarkable. Respiratory: Clear to auscultation and percussion. Normal respiratory excursion and pattern. Cardiac: Examination is regular rate and rhythm. Abdominal exam: Soft, nontender, with no palpable masses. No hepatosplenomegaly. Patient has a moderate-sized right inguinal hernia that is easily reducible. He also has some weakness in a small hernia on the left side as well. Rectal exam: exam deferred Extremities: no clubbing, cyanosis or edema. No adenopathy. Other: LABORATORY VALUES: As Noted RADIOLOGIC STUDIES: As Noted Assessment IMPRESSION: Non-recurrent bilateral inguinal hernia without obstruction or gangrene (primary encounter diagnosis) PLAN: I believe the patient probably would benefit from a preperitoneal placed bilateral inguinal hernia repair. Since I do tap I am going to have to refer him up to main campus so that this can get done. I do not think going through the abdomen is in his best interest. And I do not think doing open inguinal hernias on him is in his best interest. I will refer him up to [facility] Diagnoses: (K40.20) Non-recurrent bilateral inguinal hernia without obstruction or gangrene (primary encounter diagnosis) Dany Painter III, MD [facility]* Lona Partida RN - 02/16/2024 4:05 PM EDT REVIEW OF SYSTEMS: General: The patient denies fatigue, denies weight loss, denies weight gain, denies feeling hot, and denies feelings of cold. Eyes: The patient denies glaucoma, denies eye injury/surgery, does not wear glasses or contacts. Ear/Nose/Throat: The patient denies allergies, denies hayfever, denies ear infections, and denies bloody noses. Cardiovascular: The patient denies chest pain, denies heart disease, denies high blood pressure,denies cardiac stent, denies prior heart attack, denies irregular heart beat, denies high cholesterol, denies poor circulation, denies heart failure, other cardiac issues, denies claudication, denies cold feet, denies peripheral arterial stent. Respiratory: The patient denies tuberculosis, denies pneumonia, denies frequent cough, denies pulmonary embolism, denies shortness of breath, and denies coughing up blood. Gastrointestinal: The patient denies difficulty swallowing, denies acid reflux, denies ulcers, denies vomiting, denies jaundice/hepatitis, denies gallbladder problems, denies black or tarry stools, denies hemorrhoids, denies bleeding from rectum, denies diverticulitis, denies constipation, denies diarrhea, denies loss of stool control, and NOTES hernias. Kidney/Bladder: The patient denies kidney stones, denies urine infections, and denies bloody urine. Skin: The patient denies a history of skin cancer, denies bleeding/changing moles, and denies a history of skin rash. Neurologic: The patient denies a history of epilepsy/convulsions, denies headaches, denies head/spinal injuries, and denies stroke/TIA. Psychiatric: The patient denies psychiatric medications, denies depression, and denies voices, denies substance abuse. Endocrine: The patient denies thyroid disorders, denies diabetes, and denies hormonal problems. Hematologic: The patient denies a history of bruising, denies bleeding, and denies anemia, denies blood clots. Infections: The patient denies a history of measles and mumps, denies rheumatic fever, and denies sexually transmitted diseases. Musculoskeletal: The patient denies back pain/injury, denies back problems, denies sciatica, deniesknee/foot trouble, denies arthritis, or denies gout. When was patient's last Mammogram screening? N/A Last Colonoscopy: none Lona Partida RN [facility] Nurse Note* Lona Partida RN - 02/16/2024 4:05 PM EDT REVIEW OF SYSTEMS: General: The patient denies fatigue, denies weight loss, denies weight gain, denies feeling hot, and denies feelings of cold. Eyes: The patient denies glaucoma, denies eye injury/surgery, does not wear glasses or contacts. Ear/Nose/Throat: The patient denies allergies, denies hayfever, denies ear infections, and denies bloody noses. Cardiovascular: The patient denies chest pain, denies heart disease, denies high blood pressure,denies cardiac stent, denies prior heart attack, denies irregular heart beat, denies high cholesterol, denies poor circulation, denies heart failure, other cardiac issues, denies claudication, denies cold feet, denies peripheral arterial stent. Respiratory: The patient denies tuberculosis, denies pneumonia, denies frequent cough, denies pulmonary embolism, denies shortness of breath, and denies coughing up blood. Gastrointestinal: The patient denies difficulty swallowing, denies acid reflux, denies ulcers, denies vomiting, denies jaundice/hepatitis, denies gallbladder problems, denies black or tarry stools, denies hemorrhoids, denies bleeding from rectum, denies diverticulitis, denies constipation, denies diarrhea, denies loss of stool control, and NOTES hernias. Kidney/Bladder: The patient denies kidney stones, denies urine infections, and denies bloody urine. Skin: The patient denies a history of skin cancer, denies bleeding/changing moles, and denies a history of skin rash. Neurologic: The patient denies a history of epilepsy/convulsions, denies headaches, denies head/spinal injuries, and denies stroke/TIA. Psychiatric: The patient denies psychiatric medications, denies depression, and denies voices, denies substance abuse. Endocrine: The patient denies thyroid disorders, denies diabetes, and denies hormonal problems. Hematologic: The patient denies a history of bruising, denies bleeding, and denies anemia, denies blood clots. Infections: The patient denies a history of measles and mumps, denies rheumatic fever, and denies sexually transmitted diseases. Musculoskeletal: The patient denies back pain/injury, denies back problems, denies sciatica, deniesknee/foot trouble, denies arthritis, or denies gout. When was patient's last Mammogram screening? N/A Last Colonoscopy: none Lona Partida RN [facility] Discharge instructions Patient Education 10/25/2023 21:31:19 Asthma, Acute (Adult) Asthma (Adult) Asthma is a disease where the medium and small air passages within the lung go into spasm and restrict the flow of air. Inflammation and swelling of the airways cause further blockage. During an acute asthma attack, these factors cause trouble breathing, wheezing, cough and chest tightness. An asthma attack can be triggered by many things. Common triggers include infections such as the common cold, bronchitis, and pneumonia. Irritants such as smoke or pollutants in the air, very cold air, emotional upset, and exercise can also trigger an attack. In many adults with asthma, allergies to dust, mold, pollen and animal dander can cause an asthma attack. Skipping doses of daily asthma medicine can also bring on an asthma attack. Asthma can be controlled using the proper medicines prescribed by your healthcare provider and avoiding exposure to known triggers including allergens and irritants. Home care Take prescribed medicine exactly at the times advised. If you need medicine such as from a hand held inhaler or aerosol breathing machine more than every 4 hours, contact your healthcare provider or seek immediate medical attention. If prescribed an antibiotic or prednisone, take all of the medicine as prescribed, even if you are feeling better after a few days. Don't smoke. Avoid being exposed to the smoke of others. Some people with asthma have worsening of their symptoms when they take aspirin and non-steroidal or fever-reducing medicines like ibuprofen and naproxen. Talk to your healthcare provider if you think this may apply to you. Follow-up care Follow up with your healthcare provider, or as advised. Always bring all of your current medicines to any appointments with your healthcare provider. Also bring a complete list of medicines even those not taken for asthma. If you don't already have one, talk to your healthcare provider about developing your own Asthma Action Plan. A pneumococcal (pneumonia) vaccine and yearly flu shot (every fall) are recommended. Ask your doctor about this. When to seek medical advice Call your healthcare provider right away if any of these occur: Increased wheezing or shortness of breath Need to use your inhalers more often than usual without relief Fever of 100.4 F (38 C) or higher, or as directed by your healthcare provider Coughing up lots of dark-colored or bloody sputum (mucus) Chest pain with each breath If you use a peak flow meter as part of an Asthma Action Plan, and you are still in the yellow zone(50% to 80%) 15 minutes after using inhaler medicine. Call 911 Call 911 if any of the following occur Trouble walking or talking because of shortness of breath If you use a peak flow meter as part of an Asthma Action Plan and you are still in the red zone (less than 50%) 15 minutes after using inhaler medicine Lips or fingernails turning licea or blue [id number] [employer]. [address] [place] [address]. All rights reserved. This information is not intended as a substitute for professional medical care. Always follow yourhealthcare professional's instructions. Follow Up Care 10/25/2023 20:27:18 With:Go to emergency room if symptoms worsen Address:Unknown When:2-4 days With:Call Physician Referral Address:Unknown When:2-4 days [facility] 06-29-2024 Note Discharge Instructions Thank you for allowing [facility] to assist you with your healthcare needs. The following is importantdischarge information regarding your hospital visit. Diagnosis from Today's Visit Exacerbation of asthma What to Do Next Instructions from Your Care Team Follow-up closely with your primary care to provider. Take prednisone as prescribed. We did discusspossible admission however shared decision making used and you have declined. Return emergency department if you have worsening shortness of breath or any other care concern. No qualifying data available. Post Acute Orders No qualifying data available. You Need to Schedule the Following Appointments Follow Up with Go to emergency room if symptoms worsen When:Within 2-4 days Follow Up with Call Physician Referral When:Within 2-4 days Allergies No Known Medication Allergies Medications Please ask your primary doctor or pharmacist before taking any other medication not listed, including over the counter drugs, herbal medications, vitamins and or supplements as they may interact withyour home medications. What How Much When Instructions Last Dose New predniSONE (predniSONE 50 mg oral tablet) 1 tab(s) by mouth Once a day Duration: 5 Days Take with food Printed Prescription Please take this list to your next doctor s visit. Bring all medications you take, including over the counter medications, herbals and other supplements with you to your doctor s visit. Patients and families are reminded to discard old lists and to update any records with all medication providers or retail pharmacies. Education Materials Asthma (Adult) Asthma is a disease where the medium and small air passages within the lung go into spasm and restrict the flow of air. Inflammation and swelling of the airways cause further blockage. During an acute asthma attack, these factors cause trouble breathing, wheezing, cough and chest tightness. An asthma attack can be triggered by many things. Common triggers include infections such as the common cold, bronchitis, and pneumonia. Irritants such as smoke or pollutants in the air, very cold air, emotional upset, and exercise can also trigger an attack. In many adults with asthma, allergies to dust, mold, pollen and animal dander can cause an asthma attack. Skipping doses of daily asthma medicine can also bring on an asthma attack. Asthma can be controlled using the proper medicines prescribed by your healthcare provider and avoiding exposure to known triggers including allergens and irritants. Home care Take prescribed medicine exactly at the times advised. If you need medicine such as from a hand held inhaler or aerosol breathing machine more than every 4 hours, contact your healthcare provider or seek immediate medical attention. If prescribed an antibiotic or prednisone, take all of the medicine as prescribed, even if you are feeling better after a few days. Don't smoke. Avoid being exposed to the smoke of others. Some people with asthma have worsening of their symptoms when they take aspirin and non-steroidal or fever-reducing medicines like ibuprofen and naproxen. Talk to your healthcare provider if you think this may apply to you. Follow-up care Follow up with your healthcare provider, or as advised. Always bring all of your current medicines to any appointments with your healthcare provider. Also bring a complete list of medicines even those not taken for asthma. If you don't already have one, talk to your healthcare provider about developing your own Asthma Action Plan. A pneumococcal (pneumonia) vaccine and yearly flu shot (every fall) are recommended. Ask your doctor about this. When to seek medical advice Call your healthcare provider right away if any of these occur: Increased wheezing or shortness of breath Need to use your inhalers more often than usual without relief Fever of 100.4 F (38 C) or higher, or as directed by your healthcare provider Coughing up lots of dark-colored or bloody sputum (mucus) Chest pain with each breath If you use a peak flow meter as part of an Asthma Action Plan, and you are still in the yellow zone(50% to 80%) 15 minutes after using inhaler medicine. Call 911 Call 911 if any of the following occur Trouble walking or talking because of shortness of breath If you use a peak flow meter as part of an Asthma Action Plan and you are still in the red zone (less than 50%) 15 minutes after using inhaler medicine Lips or fingernails turning licea or blue [id number] [employer]. [address] [place] [address]. All rights reserved. This information is not intended as a substitute for professional medical care. Always follow yourhealthcare professional's instructions. Additional Information VACCINATE! IT SAVES LIVES! Members of the community who have not yet received the COVID-19 vaccine and would like to receive it can visit one of [facility] vaccine clinics. There are many vaccine clinic locations within the [facility]. For locations and available times, please visit [email or web address] It is important to note that some COVID mobile vaccine clinics are held outdoors and may be canceled in rainy or stormy conditions. To learn more about pediatric vaccinations (ages 5-11), we invite you to visit the [facility] webpage. [email or web address].[email or web address].org/[email or web address]-Xorbv-Vdbykgluloe-[email or web address] [email or web address] learn more about the COVID-19 vaccine, we invite you to visit the CDC website for a list of frequently asked questions. https://www.cdc.gov/coronavirus/2019-ncov/vaccines/faq.html [facility] Patient Portal Access Instructions: Stay connected with your healthcare team and access your personal medical information anytime with the [facility] Patient Portal. If you would like a full copy of your medical records please contact the [facility] Medical Records Department Friday through Friday between 8a.m. and 4:30p.m. Please follow the directions below to access the portal: 1.Access the email account you provided upon registration to the hospital.2.Look for an invitation email from [facility].3.Open the email and access the invitation link: Accept Invitation to [facility].Fill in the required newsome to create your account. Sign into [email or web address] with your username and password that you created in the above steps to stay up to date. You can then view a summary of results, a summary of your visits, and the ability to download your summaries to your computer or send the information securely to a physician. Remember that your healthcare information is confidential, so carefully consider who you will allow to register on the [facility] Patient Portal for access to your information. You can also access the [facility] Patient Portal on the [employer] citlali. Simply click on "Health Records" under "HealthData" and then click on the A2B logo. HOW TO SAFELY DISPOSE OF PRESCRIPTION MEDICATIONS Please use one of the following methods to safely dispose of your unused medications. 1.Use a drug disposal kit: the drug disposal pouch allows you to safely discard your old and unuseddrugs. Ask your nurse to give you one when you are discharged.2.Visit a local take-back location: Many local pharmacies and police departments have programs that collect old and unwanted prescriptiondrugs. Call your local pharmacy or go to http://LumeJet.eriQoo/1J8Nf1m to find one close to you.3.Make use of household items: Use cat litter or old coffee grounds to dispose medications if other options arenot available. Mix your drugs with these household products, seal them in an airtight container andthrow it into the garbage. Call [facility]: [phone] to be sure your drugs can be disposed of in this way. Some medicines may require a different approach.4.Never flush your medications down the toilet. IF YOU HAVE BEEN PRESCRIBED AN OPIOIDS FOR PAIN If you have been prescribed an opioid (such as hydrocodone, oxycodone or morphine), it is critical to understand the possible side effects and risks of opioid pain medications. Even when taken as directed, opioids can have several side effects including: Tolerance, meaning you might need to take more of a medication for the same pain relief. Nausea, vomiting and/or constipation. Sleepiness, dizziness, dry mouth, confusion, depression or itching. Physical dependence, meaning you have withdrawal symptoms when a medication is stopped ? this can develop within a few days. KNOW YOUR RESPONSIBILITIES It is important to know exactly how much and how often to take the opioid pain medications you are prescribed. Never take opioids in higher amounts or more often than prescribed. Do not combine opioids with alcohol or other drugs that cause drowsiness, such as benzodiazepines, also known as benzos,including diazepam and alprazolam, muscle relaxants or sleep aids. Never sell or share prescriptionopioids. This is illegal. Store opioids in a secure place and out of reach of others (including children, family, friends and visitors). The last page(s) of this document has been signed and retained as a CHART COPY Signatures Patient Education Materials Asthma, Acute (Adult) Medication Leaflets My discharge plan and instructions have been reviewed and explained to me and I,DANNY BEDOYA understand my current condition and have read and understand these discharge instructions. I have received a written copy of the plan/instructions. If I have questions, I am aware that I should contact my doctor. Patient/Yard Person Signature: Date/Time: Relationship to Patient: Witness Name/Signature: Date/Time: [facility]2024 NoteSinus rhythm Probable left atrial enlargement Electronic Signature: YVONNE MACE 10/25/2023 22:22:35[facility] 06-29-2024 Note ORIGINAL EXAMINATION: ONE XRAY VIEW OF THE CHEST10/25/2023 9:54 pm COMPARISON: None. HISTORY: ORDERING SYSTEM PROVIDED HISTORY: Reason for Exam: cough, sob FINDINGS: The cardiomediastinal silhouette is unremarkable. There is no pulmonary vascular congestion. Hyperexpanded lungs with flattening of the hemidiaphragms. Scattered granulomas versus vessels on end are seen. No focal consolidative opacity. Pleural/parenchymal scarring at right lung base. No large pleural effusion. No pneumothorax. IMPRESSION: No acute cardiopulmonary process by radiograph. Hyperexpanded lungs suggesting emphysema. I have personally reviewed the images of this examination and agree with the resident's findings and interpretation. Interpreted by: Chris Alexandra DO Preliminary Report By: Darryn Wood Electronically signed By Chris Alexandra DO Dictated Date: 10/25/2023 9:59:29 PM Prelim Date: 10/25/2023 10:02:06 PM Sign Date: 10/25/2023 10:36:24 PM [facility]ing [facility] Discharge summary Author Justin Pinto [facility] April 07, 2023 4:08pm Note Date/Time April 07, 2023 4:08pm [facility] Medical Records Department [address] [place] [address] Emergency Department Summary 04/07/23 MR#: [id number] Acct: [id number] Name: DANNY BEDOYA Rep #:[id number] : 1980 43 From: Justin Pinto MD PCP: Dr. Lexi Barnes MD Status:PRE ER Location: ED HPI History of Present Illness Chief Complaint: Other, Pain/Inj Informant: patient Narrative Narrative: Andrew with concern of a right inguinal hernia. He states for the last 2 weeks he is definitely been noticing something but he thinks it has been there a lot longer. 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 If he does a lot of lifting bending and will feel a bump in the area that will occasionally get sore. But when he rests it goes away. He has not had any nausea vomiting or change in bowel habits. No blood in his stool. No fever or chills. He has a history of a liver transplant about 2 years ago but he is not getting a distended abdomen. [facility] Medical History Alcohol abuse Angioedema Asthma Cirrhosis Home Medications albuterol sulfate 2.5 mg/3 mL (0.083 %) solution for nebulization 2.5 mg (3 mL) inhalation Q4H PRN PRN Difficulty breathing or wheezi #25 vials 01/19/17 [Rx Last Taken Unknown] fluticasone 100 mcg-salmeterol 50 mcg/dose blistr powdr for inhalation 1 ea IH DAILY breathing 01/04/19 [History Last Taken Unknown] amlodipine 10 mg tablet (Norvasc) 10 mg PO DAILY 05/20/22 [History Last Taken Unknown] aspirin 81 mg tablet,delayed release 81 mg PO DAILY 05/20/22 [History Last Taken Unknown] magnesium hydroxide 400 mg (170 mg magnesium) chewable tablet 400 mg PO BID 05/20/22 [History Last Taken Unknown] mycophenolate mofetil 500 mg tablet (CellCept) 500 mg PO BID 05/20/22 [History Last Taken Unknown] pantoprazole 40 mg granules delayed-release for susp in packet (Protonix) 40 mg PO DAILY 05/20/22 [History Last Taken Unknown] sodium bicarbonate 650 mg tablet 1,300 mg PO TID-QID PRN 05/20/22 [History Last Taken Unknown] sulfamethoxazole 400 mg-trimethoprim 80 mg tablet (Bactrim) 1 tab PO .COMPLEX 05/20/22 [History Last Taken Unknown] tacrolimus 1 mg capsule,extended release 24 hr 2 mg PO BID 05/20/22 [History Last Taken Unknown] Allergy/AdvReac Type Severity Reaction Status Date / Time lisinopril Allergy Angioedema Verified 04/07/23 14:53 Family History Father Alcoholism Asthma Mother Asthma Grandmother Cancer brain Surgical History Hx of liver transplant Social History household members: none current occupational status: employed 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[employer] Smoking Status: Never smoker Electronic Cigarette Use: not used alcohol intake: former details: former heavy drinker, 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 substance use type: marijuana what type of physical activity do you participate in: none do you feel safe at home: Yes ROS ROS ED Constitutional Constitutional ED: Denies chills or fever(s) ENT ENT ED: Denies rhinorrhea Cardiovascular Cardiovascular: Denies chest pain or palpitations Respiratory/Chest Respiratory/Chest: Denies cough or dyspnea Gastrointestinal Gastrointestinal: Denies abdominal pain, constipation, diarrhea, melena, nausea or vomiting Genitourinary Genitourinary ED: Denies dysuria or hematuria Musculoskeletal Musculoskeletal: Denies myalgias Integumentary Denies rash Endocrine Endocrinology: Denies polydipsia or polyuria Hematologic/Lymphatic Hematologic/Lymphatic: Denies easy bleeding, easy bruising or lymphadenopathy Allergic/Immunologic Allergic/Immunologic ED: Denies urticaria EXAM Physical Exam Narrative Exam Narrative: CONSTITUTIONAL: Patient is nontoxic in appearance. The patient looks comfortable. HEENT: No notable trauma. Mucous membranes moist. EYES: No conjunctival injection. Nonicteric. CARDIOVASCULAR: Regular rate. Regular rhythm. No notable murmur. No JVD. RESPIRATORY: No respiratory distress. Breathing is unlabored. No wheezes. No rhonchi. No rales. No pain with a deep breath. GASTROINTESTINAL: Not distended. Bowel sounds are normal. No tenderness. No guarding. No rebound. No palpable mass. No bruit. GENITOURINARY: No tenderness over the bladder. No CVA tenderness. Patient does have a small bulge in the right inguinal region with coughing or straining. This appears to be a direct hernia on exam. But it spontaneously goes right back in. Some momentary small bulge. But that is what he is feeling. No scrotal tenderness. MUSCULOSKELETAL: Atraumatic. No peripheral edema. NEUROLOGICAL: Patient is alert and appropriate. SKIN: No noted rashes. PSYCHIATRIC: Patient is calm. Mood is appropriate. Const Vital Signs: 04/07/23 14:52 04/07/23 15:58 Temperature 97.5 F L Temperature Source Temporal Pulse Rate 74 Respiratory Rate 18 Respiratory Effort Normal Non-Labored Respiratory Pattern Normal Blood Pressure 159/95 H Blood Pressure Mean 116 Pulse Ox 98 Oxygen Delivery Method Room Air MDM MDM MDM Narrative Medical decision making narrative: On exam, patient does have a hernia. But it spontaneously reduces and is not tender. No skin changes over it. Bowel sounds are normal and abdominal exam isnormal. I had a talk with the patient regarding hernias, incarcerated hernia and strangulated hernia. We discussed reasons to return. I explained that this patient will likely need to see a [facility] a [facility]. They will want to be very cautious. I will get him referred to [facility] surgeon but even this individual may send him to [facility]. He can also go back to [place] where his transplant was done a couple years ago. Discharge Plan Triage Chief Complaint: Other, Pain/Inj ED Provider: Justin Pinto Dx/Rx/DC Orders Clinical Impression: Hernia, inguinal, right, History of liver transplant Instructions: ED Hernia (Adult) Prescriptions: No Action amlodipine [Norvasc] 10 mg tablet 10 mg PO DAILY tacrolimus 1 mg capsule,extended release 24hr 2 mg PO BID Rx Instructions: must administer in the morning on an empty stomach, 1 hour before or 2 hours after a meal aspirin 81 mg tablet,delayed release (DR/EC) 81 mg PO DAILY pantoprazole [Protonix] [address] for susp in packet 40 mg PO DAILY mycophenolate mofetil [CellCept] 500 mg tablet 500 mg PO BID magnesium hydroxide 400 mg (170 mg magnesium) tablet,chewable 400 mg PO BID sodium bicarbonate 650 mg tablet 1,300 mg PO TID-QID PRN sulfamethoxazole-trimethoprim [Bactrim] 400-80 mg tablet 1 tab PO .COMPLEX Rx Instructions: three times a week 1 TAB orally; albuterol sulfate 2.5 MG/3 ML solution for nebulization 2.5 mg inhalation Q4H PRN PRN (Reason: Difficulty breathing or wheezi) Qty: 25 1RF fluticasone propion-salmeterol 1 EACH blister with device 1 ea IH DAILY Primary Care Provider: Lexi Barnes Referrals: Lexi Barnes MD [Primary Care Provider] - Dany Painter MD [Med Staff - Active Staff] - As soon as possible Disposition Disposition: Home, Self Care What to do if you have Problems For any increased pain, shortness of breath, bleeding, nausea or vomiting, chestpain, or any unexpected problems, contact your Primary Care Provider. Call [facility] ([phone]) or report to the closest Emergency Room. Call 911 if necessary. 04/07/23 1608 <Electronically signed by Justin Pinto MD> Cosigner Signature (if applicable): CC: Dr. Lexi Barnes MD ~ Signed [facility] Work Phone: 1(288) 772-242001-11-2022 NoteHospitalist Discharge Summary Danny Bedoya : 1980 Admit date: 05/01/2021 Discharge date: 05/08/2021 Admitting Physician: Dorothy Ramirez MD Primary Care Physician: No primary care provider on file. Discharge Diagnoses: lcoholic hepatitis Decompensated cirrhosis with ascites SBP Lactic acidosis-resolved Severe Jaundice-secondary to cirrhosis Severe alcohol use disorder Asthma? History of seizure disorder? Thrombocytopenia Hypocalcemia Hospital Course: Improved. Danny is a 41 y.o. male with past medical history below who is brought to the hospital by his fiance. Admitted for alcohol withdrawal and cirrhosis Alcoholic hepatitis Decompensated cirrhosis with ascites SBP Lactic acidosis-resolved Severe Jaundice-secondary to cirrhosis Patient with a known history of cirrhosis. He came in with abdominal pain, loss of appetite, and progressive jaundice. He is status post a paracentesis in the ED, repeat on 05/03 that showed over 250 PMNs, and SAAG of over 1.1. He is initiated on prednisolone 40 mg daily for acute alcoholic hepatitis. On ceftriaxone per ID as well. PLAN -Prednisolone 40 mg continue -Continue cefdinir per ID, for total 7-day course -Following cultures, no growth to date -We will need outpatient EGD -Continue daily lactulose -GI following, has since signed off ? Severe alcohol use disorder Ativan as needed was ordered for severe withdrawal and phenobarbital was held due to elevated liver enzymes. Ativan was used throughout the day yesterday (3mg total Last use of alcohol was 3 days ago -Ativan as needed per CIWA -Folate and thiamine -Addiction medicine following, appreciate recommendations ? Asthma-not in acute exacerbation -Continue Dulera twice daily ? History of seizure disorder-possibly secondary to alcohol withdrawal-not on any antiepileptics at home. ? Thrombocytopenia-likely secondary to alcohol use and cirrhosis. Platelets have remained stable. Will cont. To follow. ? Hypocalcemia-given IV calc gluc replacement S/p paracentesis with 6800 ml removed. Cont current Abx for now Follow today's labs Diet as tolerated Replace lytes as needed Cont prednisolone as per GI recommendations. CIWA protocol Possible discharge tomorrow ? 05/08: Clinically doing ok Discharge planning, home with [facility] Condition stable. ADULT DIET; Regular; Low Sodium (2 gm); 1500 ml ADULT ORAL NUTRITION SUPPLEMENT; Lunch, Dinner; Fortified Pudding Oral Supplement Vitals: BP 102/64 Pulse 97 Temp 97.7 ?F (36.5 ?C) (Temporal) Resp 18 Ht 5' 4" (1.626 m) Wt 170 lb 12.8 oz (77.5 kg) SpO2 97% BMI 29.32 kg/m? Pulse Ox: SpO2 Av.8 % Min: 96 % Max: 97 % Supplemental O2: O2 Flow Rate (L/min): 2 L/min General appearance: alert and cooperative with exam Lungs: clear to auscultation bilaterally Heart: regular rate and rhythm, S1, S2 normal, no murmur, click, rub or gallop Abdomen: +distention Extremities: extremities normal, atraumatic, no cyanosis or edema Neurologic: No obvious focal neurologic deficits. Recent Labs 05/06/21 0514 05/08/21 024 WBC 9.9 15.1* HGB 10.3* 10.5* PLT 79* 98* Recent Labs 05/06/21 0514 05/08/21 0241 NA 132* 130* K 3.5 3.6 CL 99 97* CO2 27 23 BUN 13 20* CREATININE 0.77 0.80 GLUCOSE 94 97 Recent Labs 05/06/21 0514 05/08/21 0241 AST 129* 117* ALT 42 48 BILITOT 26.2* 27.5* ALKPHOS 345* 307* No results found for: TRIG, HDL, LDLCALC, CHOL No results found for: PHART, PO2ART, KHH7MMI Recent Labs 05/06/21 0514 05/07/21 0453 05/08/21 0241 INR 1.6* 1.8* 1.7* No results for input(s): DDIMER in the last 72 hours. No components found for: HGBA1C Lab Results Component Value Date TSH 0.803 05/06/2021 Urine Culture: No results found for this or any previous visit. Significant Diagnostic Studies: XR CHEST PORTABLE Result Date: 05/01/2021 Patient Name: DANNY BEDOYA Diagnostic Radiology ACCESSION EXAM DATE/TIME PROCEDURE ORDERING PROVIDER [id number] 05/01/2021 19:32 EST CR Chest Portable [id number] -ALESSIO NOLASCO CPT code 84430 Reason For Exam (CR Chest Portable) dyspnea Report CHEST PORTABLE CLINICAL INDICATION: dyspnea TECHNIQUE: Portable chest x-ray(s). COMPARISON: None. FINDINGS: Cardiac and mediastinal silhouette within normal limits. Lungs are grossly clear. No significant vascular congestion. No apparent pleural effusion or pneumothorax. Bony thorax grossly unremarkable. IMPRESSION: 1. No acute findings. Report Dictated on Workstation: [id number] --- Final --- Dictated: 05/01/2021 7:39 pm Dictating Physician: MD ABDULLAHI WENDELL Signed Date and Time: 05/01/2021 7:39 pm Signed by: MD ABDULLAHI WENDELL Transcribed Date and Time: 05/01/2021 7:39 US ABDOMEN LIMITED Specify organ? LIVER Result Date: 05/01/2021 Patient Name: DANNY BEDOYA Ultrasound ACCESSION (more content not included)... [facility] Author Crow Tineo [facility] Note Date/Time July 06, 2024 3:3 6pm [facility] Medical Records Department [address] [place] [address] Counseling Note - Pharmacy 07/06/24 1534 MR#: [id number] Acct: [id number] Name: DANNY BEDOYA Rep #:[id number] : 1980 44 From: Crow Tineo PCP: Dr. Lexi Barnes MD Status:ADM IN Y Location: MS3 SL420-8 Pharmacy [facility] has performed discharge medication reconciliation and counseling for this patient. The patient's discharge medication list was reviewed for discrepancies and discrepancies were resolved. The patient was counseled on the following discharge medications and changes in medications for homegoing were reviewed. The Reason for Use, instructions for use, and potential side effects were reviewed for all new medications. The patient's questions regarding all of their medications were answered. 1. Prednisone 40 mg daily x 5 days The patient was able to verbally demonstrate an understanding of their dischargemedications. Medications at Discharge Home Medications fluticasone 100 mcg-salmeterol 50 mcg/dose blistr powdr for inhalation 1 ea IH DAILY breathing 01/04/19 amlodipine 10 mg tablet (Norvasc) 10 mg PO DAILY 05/20/22 mycophenolate mofetil 500 mg tablet (CellCept) 500 mg PO BID 05/20/22 tacrolimus 1 mg capsule,extended release 24 hr 2 mg PO BID liver 05/20/22 albuterol sulfate 2.5 mg/3 mL (0.083 %) solution for nebulization 2.5 mg (3 mL) inhalation Q4H PRN #25 vials 02/03/24 tacrolimus 1 mg capsule, immediate-release 2 mg PO BID 02/03/24 prednisone 20 mg tablet 40 mg (2 x 20 mg) PO DAILY #10 tabs 07/06/24 07/06/24 [id number] <Electronically signed by Crow wilkinson> Date _ Crow Rogers Signature (if applicable): Date CC: ~ Signed [facility] Work Phone: Discharge summary Author Andrea Daly [facility] Note Date/Time July 23, 2024 12: 55pm [facility] Medical Records Department [facility] [place] [address] Discharge Summary 07/23/24 1230 MR#: [id number] Acct: [id number] Name: DANNY BEDOYA Rep #:[id number] : 1980 44 From: Andrea hickman MD PCP: Dr. Lexi Barnes MD Status:ADM IN Location: [address] Date of Admission: 07/22/24 Primary Care Physician: Dr. Lexi Barnes MD Reason For Visit: AE ASTHMA WITH ACUTE HYPOXIC RESPIRATORY Diagnosis Discharge Diagnosis (1) Asthma exacerbation: Status: Acute Code(s): J45.901 - Unspecified asthma with (acute) exacerbation Qualifiers: Asthma persistence: unspecified Asthma severity: severe Qualified Code(s): J45.901 - Unspecified asthma with (acute) exacerbation (2) Liver transplant recipient: Status: Acute Code(s): Z94.4 - Liver transplant status (3) History of alcohol abuse: Status: Acute Code(s): F10.11 - Alcohol abuse, in remission (4) Essential hypertension: Status: Acute Code(s): I10 - Essential (primary) hypertension Medications at Discharge Home Medications fluticasone 100 mcg-salmeterol 50 mcg/dose blistr powdr for inhalation 1 ea IH DAILY breathing 01/04/19 amlodipine 10 mg tablet (Norvasc) 10 mg PO DAILY blood pressure 05/20/22 mycophenolate mofetil 500 mg tablet (CellCept) 500 mg PO BID liver transplant 05/20/22 albuterol sulfate 2.5 mg/3 mL (0.083 %) solution for nebulization 2.5 mg (3 mL) inhalation Q4H PRN #25 vials 02/03/24 tacrolimus 1 mg capsule, immediate-release 2 mg PO BID liver transplant 02/03/24 prednisone 20 mg tablet 40 mg (2 x 20 mg) PO DAILY 7 days #14 tabs 07/23/24 Hospital Course Operations None Procedures None Summary of Care Provided Minutes Spent on Discharge: 33 Hospital Course: Per HPI: DANNY BEDOYA, is a 44 M with a past medical history of essential hypertension; on amlodipine, history of EtOH Abuse (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); with cirrhosis, history of liver transplant; on mycophenolate mofetil BID and tacrolimus BID, history of cannabis abuse, GERD; on pantoprazole, history of asthma; on prednisone taper listed allergy to lisinopril (angioedema) and recentadmission here from July 06, 2024 with discharge the same day after being diagnosed with AE Asthma complicated by Respiratory Insufficiency who re-presents to [facility] ER complaining of SOB. Mr. Bedoya reports his symptoms began approximately one day prior to admission with the sudden-onset of SOB and wheezing that progressively worsened throughout the day. 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 He also admits to cough productive of sputum that has been clear and is now greenish yellow. He admits he recently finished his course of steroids a few days ago with a subsequent worsening of his symptoms. He denies associated fever, chills, runny nose, nausea, vomiting, diarrhea, constipation, abdominal pain, chest pain, rash or headache. In the ER he was diagnosed with AE Asthma with clinical evidence of Acute Hypoxic Respiratory Failure requiring BiPAP witha CXR negative for acute pathologic changes and he was then admitted to the general medical floor for ongoing care for a stay that is expected to extend beyond 2 midnights. Hospital Course: 1. Acute hypoxic respiratory insufficiency secondary to an acute exacerbation of asthma?44-year-old male with a history of a liver transplant for cirrhosis presented to the hospital with increasing shortness of breath. He had just beenin the hospital a couple weeks prior for influenza causing exacerbation of his asthma. He was placed on doxycycline and steroids with breathing treatments, and he had significant improvement very quickly and is on room air today both atrest and with ambulation. 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 Also recommend continuation of his home inhalers and place him on a 7-day course of prednisone with outpatient follow-up with his PCP. He is on antirejection medications for his liver transplant. He was negative for COVID, flu, RSV and his respiratory panel was negative. Chest x-ray was negative for any consolidation or pneumonia. He remained afebrile without a leukocytosis. He expressed understanding the risks and benefits of going home and would like to go home today. 2. History of liver transplant, essential hypertension, are all chronic medicalconditions which complicate his care. His home medications were continued whereappropriate Physical Exam Narrative General: Alert, Oriented x3, Cooperative, No apparent distress HEENT: Atraumatic, PERRLA, EOMI, Normocephalic Oral: Moist Mucosa Neck: Supple, No JVD Lungs: Diminished, Normal air movement, No rhonchi, scattered wheeze, No rales Cardiovascular: Regular rate, Regular Rhythm, Normal S1, Normal S2, No murmurs Abdomen: Soft, Non Tender, Non-Distended, No Hepato-splenomegaly Extremities: No edema, Capillary Refill Less than 3 Seconds Skin: No rashes, No breakdown Musculoskeletal: No Tenderness to Palpation of Joints or Extremities Neurological: No focal neurological deficits, Motor Exam 5/5 strength throughout, Sensory exam intact to light touch and pain Psych/Mental Status: Normal Affect, Appropriate Weight / BMI Weight Weight: 156 lb 8.451 oz Body Mass Index (BMI) 26.9 ABG / Lab / Microbiology Data 07/23/24 06:14 07/23/24 06:14 Laboratory: Laboratory Results - last 24 hr 07/23/24 06:14: WBC 8.7, RBC 4.76, Hgb 13.9, Hct 40.4, MCV 84.9, MCH 29.2, MCHC 34.4, RDW Std Deviation 38.7, RDW Coeff of Christiano 12.7, Plt Count 173, MPV 9.4, Immature Gran % (Auto) 0.700, Neut % (Auto) 89.2 H, Lymph % (Auto) 6.4 L, Van Zandt %(Auto) 3.6, Eos % (Auto) 0.0, Baso % (Auto) 0.1, Absolute Neuts (auto) 7.8 H, Absolute Lymphs (auto) 0.56 L, Nucleated RBC % 0, Sodium 140, Potassium 4.3, Chloride 110 H, Carbon Dioxide 16.5 L, Anion Gap 13, BUN 20 H, Creatinine 1.02, Estim Creat Clear Calc 77.39, Est GFR (MDRD) Non-Af 93, BUN/Creatinine Ratio 19.9, Glucose 174 H, Calcium 9.1, Phosphorus 2.6 L, Magnesium 1.9, Total Bilirubin 0.74, AST 40 H, ALT 57 H, Alkaline Phosphatase 69, Total Protein 6.8, Albumin 4.2, Globulin 2.6, Albumin/Globulin Ratio 1.6 Microbiology: Microbiology 07/22/24 03:15 Mucosa - Nose Respiratory Panel (PCR) - Final 07/22/24 01:12 Mucosa - Nose SARS-CoV-2, Influenza & RSV (PCR) - Final D/C Instructions Discharge Diet: No restrictions Call your doctor if you observe: Fever of 101 or Higher, Shortness of breath, Dizziness, Fainting spells, Swelling in the ankles, Chest pain and Increased palpitations (irregular heartbeat) DC O2, CPAP, BIPAP Needs PSN CPAP & BiPAP: BiPAP & CPAP Settings per PSN Mode AVAPS 07/22/24 00:51 Bipap Delivery Device Face Mask 07/22/24 00:51 BiPAP Expiratory Pressure 8 07/22/24 00:51 BiPAP Rate 12 07/22/24 00:51 Fraction of Inspired Oxygen ( 30 07/22/24 00:51 FIO2) Home O2 Discharge instructions: No Meaningful Use Info Meaningful Use Meaningful Use Diagnoses (Choose all that apply): None applicable Ischemic Stroke Statin Dosing Therapy Reference: STATIN DOSE THERAPY REFERENCE: * Patients > 75 years receive moderate or high dose statin therapy. * Patients 75 years or YOUNGER should receive HIGH intensity statin dose unless contraindicated. You will be required to document reason for non-treatment if statin daily dose does not meet guidelines. HIGH DOSE STATIN THERAPY DAILY Atorvastatin > than or = to 40 mg Rosuvastatin > than or = to 20 mg Amlodipine + Atorvastatin > than or = to 2.5/40 mg Ezetimibe + Simvastatin 10/80 mg Simvastatin 80mg Discharge Plan Admission Admit Date/Time: 07/22/24 03:40 Attending Provider: Andrea Daly Primary Care Provider: Lexi Barnes Consulting Providers: Lisa Jain Discharge Orders/Prescriptions Prescriptions: New prednisone 20 mg tablet 40 mg PO DAILY 7 Days Qty: 14 0RF Continued amlodipine [Norvasc] 10 mg tablet 10 mg PO DAILY mycophenolate mofetil [CellCept] 500 mg tablet 500 mg PO BID fluticasone propion-salmeterol 1 EACH blister with device 1 ea IH DAILY albuterol sulfate 2.5 mg /3 mL (0.083 %) solution for nebulization 2.5 mg inhalation Q4H PRN Qty: 25 0RF Rx Instructions: Use q4 hours and PRN for wheezing tacrolimus 1 mg capsule 2 mg PO BID Referrals / Follow Up: Lexi Barnes MD [Primary Care Provider] - Within 1 Week Echo Michael NP, TWISTER TENDER PAPER-C [Med Staff - [facility]] - Within 1 Month Disposition Disposition (needs filled in before D/C Order can be placed): Home, Self Care Charges/Coding Visit Charges Inpatient E&M: 56600 Disch Hosp >30min 07/23/24 1255 <Electronically signed by Andrea Daly MD> Cosigner Signature (if applicable): CC: Dr. Lexi Barnes MD; Dr. Andrea Daly MD~ Signed [facility] Work Phone: Evaluation + Plan note No data available for this section [facility] Evaluation note* Diagnosis Onset Date Resolution Status Essential hypertension acute Establishing care with new doctor, encounter for noneactive S/P liver transplant noneact sandra Moderate asthma without complication noneactive [facility] Work Phone: Evaluation noteNo assessment information available [facility] Work Phone: Evaluation note* Diagnosis Non-recurrent bilateral inguinal hernia without obstruction or gangrene- [facility] On[facility] Date Resolution Status Admit Date Asthma exacerbation acute July 06, 2024 2:36am Essential hypertension acute [facility] 2024 2:36am History of alcohol abuse acute July 06, 2024 2:36am Respiratory insufficiency acute July 06, 2024 2:36am Cirrhosis inactive July 06 2:36am History of liver transplant inactive July 06, 2024 2:36am [facility] Work Phone: Reason for referral (narrative)No reason for referral [facility]: Summary Purpose Family History No Family History Records Found Relationship Condition Age at Onset Recorded Date/T tye father Alcoholism Unknown Asthma Unknown mother Asthma Unknown grandmother Malignant neoplasm Unknown Advance Directives No Advanced Directives Records Found Advance Directive Response Recorded Date/ Time Advance Directives No December 22, 2014 9:36pm Living Will No April 17, 2 021 9:20am Power of Stock Patcher No April 17, 2021 9:20am Advance Directive Response Recorded Date/ Time Advance Directives No December 22, 2014 10:36pm Living Will No April 17, 2 021 10:20am Power of Stock Patcher No April 17, 2021 10:20am Advance Directive Response Recorded Date/ Time Advance Directives No December 22, 2014 9:36pm Living Will No April 07, 2 023 3:58pm Power of Stock Patcher No April 07, 2023 3:58pm Advance Directive Response Recorded Date/ Time Living Will No April 07, 2 023 4:58pm Power of Stock Patcher No April 07, 2023 4:58pm Living Will No June 11, 2 025 5:22pm Power of Stock Patcher No June 11, 2024 5:22pm Living Will No July 05, 2024 10:12pm Power of Stock Patcher No July 05 10:12pm Advance Directives No December 22, 2014 10:36pm Advance Directive Response Recorded Date/ Time Living Will No April 07, 2 023 4:58pm Power of Stock Patcher No April 07, 2023 4:58pm Living Will No June 11, 2 025 5:22pm Power of Stock Patcher No June 11, 2024 5:22pm Living Will No July 06, 2024 3:55am Power of Stock Patcher No July 06 3:55am Advance Directives No December 22, 2014 10:36pm Advance Directive Response Recorded Date/ Time Living Will No April 07, 2 023 4:58pm Do you have a Healthcare Power of Stock Patcher? No April 07, 2023 4:58pm Living Will No June 11, 2 025 5:22pm Do you have a Healthcare Power of Stock Patcher? No June 11, 2024 5:22pm Living Will No July 22, 2024 12:54am Do you have a Healthcare Power of Stock Patcher? No July 22, 2024 12:54am Living Will No July 06, 2024 3:55am Do you have a Healthcare Power of Stock Patcher? No July 06, 2024 3:55am Advance Directives No December 22, 2014 10:36pm Advance Directive Response Recorded Date/ Time Living Will No April 07, 2 023 4:58pm Do you have a Healthcare Power of Stock Patcher? No April 07, 2023 4:58pm Living Will No June 11, 2 025 5:22pm Do you have a Healthcare Power of Stock Patcher? No June 11, 2024 5:22pm Living Will No July 22, 2024 4:14am Do you have a Healthcare Power of Stock Patcher? No July 22, 2024 4:14am Living Will No July 06, 2024 3:55am Do you have a Healthcare Power of Stock Patcher? No July 06, 2024 3:55am Advance Directives No December 22, 2014 10:36pm Chief Complaint and Reason for Visit Chief Complaint TWISTER TENDER PAPER, EST. 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, PT NE EDS NPP S/O S/O Reason for Visit Essential hypertensi on Establishing care with new doctor, encounter for S/P liver transplant Moderate asthma without complication Chief Complaint S/O S/O S/O S/O Chief Complaint S/O Chief Complaint S/O hernia Chief Complaint S/O hernia [id number] Chief Complaint Admit Date SOB June 11, 2024 4:17pm AE ASTHMA, RESPIRATORY INSUFFICIENCY & M arch 2024 2:36am Reason for Visit Admit Date Asthma exacerbation July 06, 2024 2:3 6am Essential hypertension July 06, 2024 2:36am History of alcohol abuse July 06 2:36am Respiratory insufficiency July 06 2:36am Cirrhosis July 06, 2024 2:3 6am History of liver transplant July 06, 2024 2:36am Chief Complaint Admit Date SOB June 11, 2024 4:17pm AE ASTHMA, RESPIRATORY INSUFFICIENCY & M arch 2024 2:36am AE ASTHMA WITH ACUTE HYPOXIC RESPIRATORY July 22, 2024 3:40am Reason for Visit Admit Date Asthma exacerbation July 06, 2024 2:3 6am Essential hypertension July 06, 2024 2:36am History of alcohol abuse July 06 2:36am Respiratory insufficiency July 06 2:36am Cirrhosis July 06, 2024 2:3 6am History of liver transplant July 06, 2024 2:36am Acute bacterial bronchitis July 22, 2 025 3:40am Acute hypoxic respiratory failure July 22, 2024 3:40am Asthma exacerbation July 22, 2024 3:4 0am Essential hypertension July 22, 2024 3:40am History of alcohol abuse July 22 3:40am Hypoxia July 22, 2024 3:4 0am Liver transplant recipient July 22, 2 025 3:40am Chief Complaint Admit Date SOB June 11, 2024 4:17pm AE ASTHMA, RESPIRATORY INSUFFICIENCY & M arch 2024 2:36am AE ASTHMA WITH ACUTE HYPOXIC RESPIRATORY July 22, 2024 3:40am AE ASTHMA WITH ACUTE HYPOXIC RESPIRATORY July 23, 2024 12:30pm Reason for Visit Admit Date Asthma exacerbation July 06, 2024 2:3 6am Essential hypertension July 06, 2024 2:36am History of alcohol abuse July 06 2:36am Respiratory insufficiency July 06 2:36am Cirrhosis July 06, 2024 2:3 6am History of liver transplant July 06, 2024 2:36am Acute bacterial bronchitis July 22, 2 025 3:40am Acute hypoxic respiratory failure July 22, 2024 3:40am Asthma exacerbation July 22, 2024 3:4 0am Essential hypertension July 22, 2024 3:40am History of alcohol abuse July 22 3:40am Hypophosphatemia July 22, 2024 3:4 0am Hypoxia July 22, 2024 3:4 0am Liver transplant recipient July 22, 2 025 3:40am Reason for Referral Specialty Diagnoses / Procedures Referred By Contac t Referred To Contact General Surgery Diagnoses Non-recurrent bilateral inguinal hernia without obstruction or gangrene Procedures CONSULT TO GENERAL SURGERY OFFICE/OUTPATIENT [facility] [place] 60 MINUTES Dany Painter MD [address] [place] [address] Norman Mcwilliams MD [address] [place] [address] Referral ID Status Reason Start Date Expiration Date Visits Requested Visits Authorized [id number] Pending Review PCP Requested Referral 02/15/2025 1 1 Additional Source Comments (unrecognized sect ion and content) No Status Records FoundNo Status Records FoundNo Status Records FoundNo Status Records FoundNo Status Records Found INFORMATION SOURCE (unrecogn ized section and content) DATE CREATED AUTHOR 07/26/2021 [facility] DATE CREATED AUTHOR AUTHOR'S ORGANIZ ATION 10/28/2023 [facility] ([place]) DATE CREATED AUTHOR AUTHOR'S ORGANIZ ATION 02/18/2024 [facility] DATE CREATED AUTHOR AUTHOR'S ORGANIZ ATION 05/13/2024 [facility] DATE CREATED AUTHOR AUTHOR'S ORGANIZ ATION 07/31/2024 [facility] Care Teams (unrecognized sec tion and content) Team Status: Active Member Role Status Dates Megha YU, PA Family Provider Active Dr. Lexi Barnes MD Primary Care Provider Active Team Status: Inactive Member Role Status Dates No Primary Care Physician Primary Care Provider, Refer ring Provider Active Dr. Lexi Barnes MD Attending Provider Active Team Status: Inactive Member Role Status Dates MONA WU Attending Provider Active Dr. Lexi Barnes MD Primary Care Provider Active Team Status: Inactive Member Role Status Dates Dr. Lexi Barnes MD Primary Care Provider Active MONA WU Attending Provider, Referring Provide r Active Team Status: Inactive Member Role Status Dates Dr. Lexi Barnes MD Primary Care Provider Active MONA WU Other Provider Active FAITH AGUILAR Attending Provider, Referring Provider Ac tive Team Status: Inactive Member Role Status Dates Dr. Lexi Barnes MD Primary Care Provider Active Dr. Justin Pinto MD Referring Provider, Emergency Provider Active Team Status: Inactive Member Role Status Dates Dr. Lexi Barnes MD Primary Care Provider Active Dr. Justin Pinto MD Attending Provi dee, Referring Provider, Emergency Provider Active Team Status: Active Member Role Status Dates Dr. Lexi Barnes MD Primary Care Provider Active Team Status: Inactive Member Role Status Dates Dr. Lexi Barnes MD Primary Care Provider Active Start: March 29, 2024 End: March 29, 2024 MONA WU Other Provider Active Start: 2023 End: March 29, 2024 FAITH AGUILAR Attending Provider Active Start: 2023 End: March 29, 2024 FAITH AGUILAR Referring Provider Active Start: 2023 End: March 29, 2024 Team Status: Inactive Member Role Status Dates Dr. Lexi Barnes MD Primary Care Provider Active Start: June 11, 2024 End: June 11, 2024 Dr. Douglas Cruz , DO Attending Provider Activ e Start: June 11, 2024 End: June 11, 2024 Dr. Douglas Cruz , DO Referring Provider Activ e Start: June 11, 2024 End: June 11, 2024 Dr. Douglas Cruz , DO Emergency Provider Activ e Start: June 11, 2024 End: June 11, 2024 Team Status: Active Member Role Status Dates Dr. Lexi Barnes MD Primary Care Provider Active Start: July 06, 2024 Dr. Jam Jiang , Emergency Provider Active Start: July 06, 2024 Dr. Lisa Jain , DO Admit Provider Active Start: July 06, 2024 Dr. Lisa Jain , Attending Provider Active Start: July 06, 2024 Team Status: Inactive Member Role Status Dates Dr. Lexi Barnes MD Primary Care Provider Active Start: July 06, 2024 End: July 06, 2024 Dr. Jam Jiang , Emergency Provider Active Start: July 06, 2024 End: July 06, 2024 Dr. Lisa Jain , DO Admit Provider Active Start: July 06, 2024 End: July 06, 2024 Dr. Lisa Jain , Other Provider Active Start: July 06, 2024 End: July 06, 2024 Dr. Natalie Dasilva , Attending Provider Active Start: July 06, 2024 End: July 06, 2024 Team Status: Active Member Role Status Dates Dr. Lexi Barnes MD Primary Care Provider Active Start: July 22, 2024 Dr. Natalie Jeffery DO Emergency Provider Active Start: July 22, 2024 Dr. Lisa Jain DO Admit Provider Active Start: July 22, 2024 Dr. Lisa Jain DO Attending Provider Active Start: July 22, 2024 Team Status: Inactive Member Role Status Dates Dr. Lexi Barnes MD Primary Care Provider Active Start: July 22, 2024 End: July 23, 2024 Dr. Natalie Jeffery DO Emergency Provider Active Start: July 22, 2024 End: July 23, 2024 Dr. Lisa Jain DO Admit Provider Active Start: July 22, 2024 End: July 23, 2024 Dr. Lisa Jain DO Other Provider Active Start: July 22, 2024 End: July 23, 2024 Dr. Andrea Daly MD Attending Provider Active Start: July 22, 2024 End: July 23, 2024 Dr. Andrea Daly MD Other Provider Active Start: July 22, 2024 Team Status: Active Member Role Status Dates Dr. Lexi Barnes MD Primary Care Provider Active Start: July 23, 2024 Dr. Natalie Jeffery DO Emergency Provider Active Start: July 23, 2024 Dr. Lisa Jain DO Admit Provider Active Start: July 23, 2024 Dr. Lisa Jain DO Other Provider Active Start: July 23, 2024 Dr. Andrea Daly MD Attending Provider Active Start: July 23, 2024 Dr. Andrea Daly MD Other Provider Active Start: July 23, 2024 Goals (unrecognized section and content) Goals may be documented in a n alternate sectionGoals may be documented in an alternate sectionGoals may be documented in an alternate sectionGoals may be documented in an alternate sectionGoals may be documented in an alternate sectionGoals may be documented in an alternate section No data available for this section Source Comments (unrecognize d section and content) In the event this informatio n is protected by the Federal Confidentiality of Alcohol and Drug Abuse Patient Records regulations: The Federal rules restrict any use of the information to criminally investigate or prosecute any alcohol or drug abuse patient.[facility] Reason for Visit (unrecogniz ed section and content) Reason Comments Consult hernia Specialty Diagnoses / Procedures Referred By Margaret t Referred To Contact General Surgery / GENERAL SURGERY Diagnoses Hernia Groin Hernia Procedures OFFICE/OUTPATIENT NEW MODERATE MDM 45 MINUTES NEW DDI PATIENT Self Dany Painter MD [address] [place] [address] Referral ID Status Reason Start Date Expiration Date Visits Requested Visits Authorized [id number] Waiting for Response Financial Clearance Required - OON Payor OON Notification Letter Patient Cleared - Admin/Purification Operator/ Director advise to proceed or did not respond 02/16/20 24 05/16/2024 1 1 FOR RECORDS PERTAINING TO PATIENTS WHO ARE OR HAVE BEEN ENROLLED IN A CHEMICAL DEPENDENCY/SUBSTANCEABUSE PROGRAM, SOME INFORMATION MAY BE OMITTED. This clinical summary was aggregated from multiple sources. Caution should be exercised in using it in the provision of clinical care. This summary normalizes information from multiple sources, and as a consequence, information in this document may materially change the coding, format and clinical context of patient data. In addition, data may be omitted in some cases. CLINICAL DECISIONS SHOULD BE BASED ON THE PRIMARY CLINICAL RECORDS. [facility]. provides no warranty or guarantee of the accuracy or completeness of information in this document.
--- NOTE | 2024-10-08 04:18 | HP.PCM.HOS_ITS ---
HPI - General General Date of Admission: 10/08/24 Date of Service: 10/08/24 Chief Complaint: Shortness of breath and wheezing HPI Narrative DANNY BEDOYA, is a 44 M who present to the emergency department [facility] on 10/08/2024 with shortness of breath and wheezing. Patient has a known history of environmental allergies and asthma. Patient reported he was kayaking the day prior to presentation and thought maybe that is what caused his trouble breathing due to environmental exposures. Patient reported he been on prednisone within the last 3 months but is not currently. He denied any other respiratory tract symptoms. He said no fever or chills. He said no significant cough or production of sputum. Upon presentation he had limited ability to speak in more than 2-3 words due to respiratory distress and use of accessory muscles. He was treated with DuoNebs x 1 and IV Solu-Medrol. His respiratory distress improved however he was hypoxic on room air 88%. He was placed on 2 L nasal cannula. Unfortunately, he remained persistently hypoxic despite treatment and will require admission for further management. Vital signs at the time of presentation showed a temperature of 98.5, heart rate 102, respiratory rate was 20 with short labored breathing that was shallow and tachypneic, blood pressure was 144/99 and pulse ox was 88% on room air at rest. CBC is unremarkable other than a significant eosinophilia at 9.2%. ABG was obtained and showed a pH of 7.43 with a PCO2 of 31.6 and a pO2 of 57 with a sat of 90% on room air. Chemistry panel was unremarkable. Chest x-ray is unremarkable. Given his hypoxia at rest we will admit as observation status with expected length of stay less than 2 midnights. [facility] Medical History Cirrhosis Asthma Alcohol abuse Angioedema Home Medications Medication Instructions Recorded Last Taken Type fluticasone 100 mcg-salmeterol 50 1 ea IH DAILY breath ing 01/04/19 07/21/24 History mcg/dose blistr powdr for inhalation mycophenolate mofetil 500 mg 500 mg PO BID liver trans plant 05/20/22 07/21/24 History tablet (CellCept) albuterol sulfate 2.5 mg/3 mL 2.5 mg (3 mL) inhalation Q4H PRN 02/03/24 07/22/24 Rx (0.083 %) solution for nebulization #25 vials tacrolimus 1 mg capsule, 2 mg PO BID liver transplant 02/03/24 07/21/24 History immediate-release Allergy/AdvReac Type Severity Reaction Status Date / Time lisinopril Allergy Angioedema Verified 10/08/24 02:10 Family History Father Alcoholism Asthma Mother Asthma Grandmother Cancer brain Surgical History Hx of liver transplant Social History household members: none current occupational status: employed 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 [employer] Smoking Status: Never smoker Electronic Cigarette Use: not used alcohol intake: former details: former heavy drinker, 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 substance use type: marijuana what type of physical activity do you participate in: none do you feel safe at home: Yes ROS Constitutional Constitutional: Denies anorexia, change in weight, chills, fatigue, fever(s), malaise, night sweats, weakness or other Eyes Eyes: Denies blurry vision, change in eye color, change in vision, discharge from eye(s), double vision, erythema, eye pain, loss of vision or other ENT HEENT: Denies abnormal hearing, dysphagia, ear pain, epistaxis, headache(s), hearing loss, nasal congestion, nasal discharge, post nasal drip, sinus pressure, sore throat or other Cardiovascular Cardiovascular: Reports dyspnea on exertion; Denies chest pain, claudication, edema, lightheadedness, orthopnea, palpitations, paroxysmal nocturnal dyspnea, rapid heart rate, syncope or other Respiratory/Chest Respiratory/Chest: Reports dyspnea, shortness of breath at rest and shortness of breath with exertion; Denies cough, excessive phlegm production, hemoptysis, productive cough, wheezing or other Gastrointestinal Gastrointestinal: Denies abdominal pain, coffee ground emesis, constipation, diarrhea, dyspepsia, hematemesis, hematochezia, loose stools, melena, nausea, vomiting or other Genitourinary Genitourinary: Denies burning urination, difficulty urinating, dysuria, hematuria, nocturia, urinary frequency, urinary hesitancy, urinary incontinence, urinary urgency or other Musculoskeletal Musculoskeletal: Denies arthralgias, back pain, joint pain, joint stiffness, joint swelling, myalgias, neck pain or other Neurologic Neurologic: Denies abnormal gait, abnormal speech, confusion, disequilibrium, dizziness, focal weakness, headache(s), numbness, paresthesias, seizure-like activity, seizures, syncope, tingling, tremor(s) or other Psychiatric Psychiatric: Denies anxiety, depression, homicidal ideation, suicidal ideation or other Endocrine Endocrinology: Denies change in body appearance, cold intolerance, excessive sweating, heat intolerance, polydipsia, polyuria or other Hematologic/Lymphatic Hematologic/Lymphatic: Denies anemia, easy bleeding, easy bruising, lymphadenopathy or other Allergic/Immunologic Allergic/Immunologic: Denies rhinitis, hives, eczemia, asthma or other Vital Signs Vital Signs Vital Signs: 10/08/24 02:10 10/08/24 02:13 10/08/24 02:13 Temperature 98.5 F 98.5 F Temperature Source Oral Oral Pulse Rate 102 H 103 H Respiratory Rate 20 H 20 H Respiratory Effort Short of Breath Labored Respiratory Depth Shallow Respiratory Pattern Tachypnea Blood Pressure 144/99 H Blood Pressure Mean 114 Pulse Ox 92 93 Oxygen Delivery Method Room Air Room Air Room Air Oxygen Flow Rate (L/min) 10/08/24 02:15 10/08/24 02:25 10/08/24 03:15 Temperature 98.3 F Temperature Source Oral Pulse Rate 114 H 94 Respiratory Rate 18 18 Respiratory Effort Respiratory Depth Respiratory Pattern Normal Blood Pressure 135/82 H Blood Pressure Mean 99 Pulse Ox 92 91 Oxygen Delivery Method Room Air Room Air Oxygen Flow Rate (L/min) 10/08/24 03:57 10/08/24 04:00 Temperature 98.3 F Temperature Source Oral Pulse Rate 76 Respiratory Rate 18 Respiratory Effort Respiratory Depth Respiratory Pattern Blood Pressure 132/86 H Blood Pressure Mean 101 Pulse Ox 92 95 Oxygen Delivery Method Nasal Cannula Room Air Oxygen Flow Rate (L/min) 1 Weight Weight: 70.4 kg Body Mass Index (BMI) 26.6 Physical Exam Const alert, oriented x3, no apparent distress, average body habitus, healthy appearing and well nourished Constitutional Narrative: Very pleasant, middle-aged, white male, lying in bed, significant other bedside, appears comfortable, nontoxic General Appearance: cooperative HEENT normocephalic, head/scalp atraumatic, hearing grossly normal bilaterally and moist oral mucous membranes HEENT Narrative: Mallampati 2, no thrush Resp normal respiratory effort, no retractions, no use of accessory muscles and No clear to auscultation bilaterally Resp Narrative: Diffuse scattered end expiratory wheezes, no current signs of respiratory distress Auscultation: wheezes Cardio regular rate, regular rhythm, S1 normal heart sound, S2 normal heart sound, no murmurs, no rub and no gallops GI normal to inspection, nondistended, normoactive bowel sounds, soft to palpation and non-tender Extremity no clubbing, cyanosis or edema Extremity Narrative: 2+ pedal pulses Neuro oriented x3 and moves all extremities Speech: speech normal Psych affect normal Psych Narrative: Very pleasant, eye contact is good and patient interacts appropriately Results Lab / Micro Data 10/08/24 02:23 10/08/24 02:23 Labs: Laboratory Results - last 24 hr 10/08/24 02:23: WBC 6.0, RBC 5.03, Hgb 14.9, Hct 43.1, MCV 85.7, MCH 29.6, MCHC 34.6, RDW Std Deviation 40.2, RDW Coeff of Christiano 13.1, Plt Count 186, MPV 9.2, Immature Gran % (Auto) 0.500, Neut % (Auto) 55.7, Lymph % (Auto) 23.7, Osborne % (Auto) 9.7, Eos % (Auto) 9.2 H, Baso % (Auto) 1.2 H, Absolute Neuts (auto) 3.3, Absolute Lymphs (auto) 1.42, Nucleated RBC % 0, Sodium 138, Potassium 3.9, Chloride 106, Carbon Dioxide 19.8 L, Anion Gap 13, BUN 22 H, Creatinine 1.10, Estim Creat Clear Calc 71.76, Est GFR (MDRD) Non-Af 85, BUN/Creatinine Ratio 19.9, Glucose 97, Calcium 9.4 ABG Data ABG results: ABG 10/08/24 03:16 Specimen Type ART Sample Site R Radial pH 7.43 Bicarbonate Actual 20.9 L Total CO2 22 Base Excess -4 L O2 Saturation 90 L ABG pCO2 31.6 L ABG pO2 57 L Miguel Angel Test Positive O2 Delivery Device Room Air Vent Mode Not entered Rhythm Strip Rhythm Strip: Sinus Tach Rate: 103 Imaging Radiology Impression Chest X-Ray 10/08/24 02:50 IMPRESSION: No evidence for acute abnormality. Reading [facility] Assessment & Plan Assessment/Plan (1) Acute exacerbation of asthma with allergic rhinitis: (2) Sinus tachycardia seen on medical office scheduler: (3) Hypoxemia: PLAN: Plan Acute eczema exacerbation with hypoxia - Patient requiring 2 L at rest - Check respiratory viral panel and COVID-19 - Solu-Medrol 40 every 8 - Scheduled and as needed nebulizers - Incentive spirometer - Acapella - Start Singulair - Patient would benefit from outpatient follow-up with pulmonary medicine at baseline for his asthma Asthma/seasonal allergies - Start Singulair as noted above - Hold home inhaler - Recommend outpatient follow-up with pulmonary medicine Sinus tachycardia - Secondary to the above - Should resolve with improved respiratory status History of liver cirrhosis secondary to alcohol abuse status post liver transplant - Liver transplant was in - Continue mycophenolate and tacrolimus - Outpatient follow-up as previous really commended History of angioedema - Remote History of alcoholism - Currently sober DVT prophylaxis - Low risk - Recommend early and frequent ambulation CODE STATUS Full code Charges/Coding Visit Charges Inpatient E&M: 96710 Init Hosp L2
--- OUTSIDE RECORDS SUMMARY | 2024-10-08 04:42 | XMS RPT_ITS | CCD ---
Author Organization [facility] CliniSyhi Care Team Providers Care Traffic Workforce Representative Name Role Phone Care Physician, No Primary [...] CUEVAS Attending Provider LAUREN CUEVAS Referring Provider Dr. Douglas Cruz DO Attending Provider Dr. [...] CHRISTIANO Consulting Unavailable CECILIA, CHRISTIANO Attending Unavailable Lakemore, Lexi Primary Care Unavailable Kirit Moreira Attending Unavailable Lakemore, Lexi Primary Care Unavailable CECILIA, CHRISTIANO Referring Unavailable CECILIA, CHRISTIANO Consulting Unavailable CECILIA, CHRISTIANO Attending Unavailable Lakemore, Lexi Primary Care Unavailable CECILIA, CHRISTIANO Referring Unavailable CECILIA, CHRISTIANO Consulting Unavailable CECILIA, CHRISTIANO Attending Unavailable Molly, Lexi Primary Care Unavailable Lisa Jain Consulting Unavailable Lisa Jain Admitting Unavailable Lakemore, Lexi Primary Care Unavailable Natalie Dasilva Attending Unavailable Lisa Jain Consulting Unavailable Lisa Jain Admitting Unavailable Lakemore, Lexi Primary Care Unavailable Andrea Daly Attending Unavailable Molly, Lexi Primary Care Unavailable Douglas Cruz Attending Unavailabl e Douglas Cruz Referring Unavailabl e Allergies Allergy Classification Reported Allergen(s) Allergy Type Date of Onset Reaction(s) Facility (12 sources) Lisinopril; Translations: [LISINOPRIL] Drug Allergy 1 [facility] (1 source) Environmental allergies [Other] Propensity to adverse reactions 9 [facility] (2 sources) OTHER; Translations: [OTHER] Propensity to adverse reactions (disorder) 9 [facility] (1 source) Lisinopril Drug Allergy 5 [facility] Medications Current Medications Medication Drug Class(es) [...] after a meal take 5 capsules by [facility] once daily, then take 3 capsules by [...] 2020 11:00pm August 10, 2020 9:38am lactulose 90931 mg powder for oral solution (10 sources) [...] Neutrophils (Bld) [#/Vol] 7.8 10*3/uL High 2.0-7.7 [facility] Anion gap in Serum or Plasma Ordered By: Lisa Wallis on 07-23-2024 Anion gap [Moles/Vol] 13 mmol/L 5-15 [facility] BUN/creatinine ratioOrdered By: Lisa Wallis on 07-23-2024 Urea nitrogen/Creatinine [Mass ratio] 19.9 mg/mg 10-20 [facility] Basophil percentageOrdered B y: Lisa Wallis on 07-23-2024 Basophils/100 WBC (Bld) 0.1 % 0-1 [facility] Bilirubin, totalOrdered By: Lisa Wallis on 07-23-2024 Bilirubin [Mass/Vol] 0.74 mg/dL 0.00-1.30 [facility] CBC W/Diff, Automatedon 06-27 Absolute Lymph 0.56 X10 3/uL Low 0.83-4.51 [facility] Comment on above: Performed By: #### L 501.5200, L500.4050, L100.0100 #### [facility] [address] [place], [address] Absolute Neut 7.8 X10 3/uL High 2.0-7.7 [facility] Comment on above: Performed By: #### L 501.5200, L500.4050, L100.0100 #### [facility] [address] [place], [address] Basophils/100 WBC (Bld) 0.1 % Normal 0-1 [facility] Comment on above: Performed By: #### L 501.5200, L500.4050, L100.0100 #### [facility] [address] [place], [address] Eosinophils/100 WBC (Bld) 0.0 % Normal 0-5 [facility] Comment on above: Performed By: #### L 501.5200, L500.4050, L100.0100 #### [facility] [address] [place], [address] Erythrocyte distribution width (RBC) [Ratio] 12.7 % Normal 11.6-14.6 [facility] Comment on above: Performed By: #### L 501.5200, L500.4050, L100.0100 #### [facility] [address] [place], [address] Hematocrit (Bld) [Volume fraction] 40.4 % Normal 40-54 [facility] Comment on above: Performed By: #### L 501.5200, L500.4050, L100.0100 #### [facility] [address] [place], [address] Hemoglobin (Bld) [Mass/Vol] 13.9 g/dL Normal 13.0-16.5 [facility] Comment on above: Performed By: #### L 501.5200, L500.4050, L100.0100 #### [facility] [address] [place], [address] IG% 0.700 Normal 0.0-0.9 [facility] Comment on above: Result Comment: IG% - Immature Granulocytes (promyelocytes, myelocytes and metamyelocytes) > 1% indicates that a LEFT SHIFT is Present. Performed By: #### L 501.5200, L500.4050, L100.0100 #### [facility] [address] [place], [address] Lymphocytes/100 WBC (Bld) 6.4 % Low 19-41 [facility] Comment on above: Performed By: #### L 501.5200, L500.4050, L100.0100 #### [facility] [address] [place], [address] MCH (RBC) [Entitic mass] 29.2 pg Normal 27.0-32.0 [facility] Comment on above: Performed By: #### L 501.5200, L500.4050, L100.0100 #### [facility] [address] [place], [address] MCHC (RBC) [Mass/Vol] 34.4 g/dL Normal 32-36 [facility] Comment on above: Performed By: #### L 501.5200, L500.4050, L100.0100 #### [facility] [address] [place], [address] MCV (RBC) [Entitic vol] 84.9 fL Normal 80-94 [facility] Comment on above: Performed By: #### L 501.5200, L500.4050, L100.0100 #### [facility] [address] [place], [address] Monocytes/100 WBC (Bld) 3.6 % Normal 0-10 [facility] Comment on above: Performed By: #### L 501.5200, L500.4050, L100.0100 #### [facility] [address] [place], [address] Neutrophils/100 WBC (Bld) 89.2 % High 47-70 [facility] Comment on above: Performed By: #### L 501.5200, L500.4050, L100.0100 #### [facility] [address] [place], [address] Nucleated RBC (Bld) [#/Vol] 0 10*3/uL Normal 0-5 [facility] Comment on above: Performed By: #### L 501.5200, L500.4050, L100.0100 #### [facility] [address] [place], [address] Platelet mean volume (Bld) [Entitic vol] 9.4 fL Normal 6.2-12.0 [facility] Comment on above: Performed By: #### L 501.5200, L500.4050, L100.0100 #### [facility] [address] [place], [address] Platelets (Bld) [#/Vol] 173 10*3/uL Normal 150-450 [facility] Comment on above: Performed By: #### L 501.5200, L500.4050, L100.0100 #### [facility] [address] [place], [address] RBC (Bld) [#/Vol] 4.76 10*6/uL Normal 4.6-6.2 [facility] Comment on above: Performed By: #### L 501.5200, L500.4050, L100.0100 #### [facility] [address] [place], [address] RDW SD 38.7 fl Normal 35.1-43.9 [facility] Comment on above: Performed By: #### L 501.5200, L500.4050, L100.0100 #### [facility] [address] [place], [address] WBC (Bld) [#/Vol] 8.7 10*3/uL Normal 4.4-11.0 [facility] Comment on above: Performed By: #### L 501.5200, L500.4050, L100.0100 #### [facility] [address] [place], [address] Carbon dioxide, total [Moles /volume] in Central venous bloodOrdered By: Lisa Wallis on 07-23-2024 CO2 [Moles/Vol] 16.5 mmol/L Low 21.0-32.0 [facility] Chloride assayOrdered By: Jatinder Wallis on 07-23-2024 Chloride [Moles/Vol] 110 mmol/L High 98-108 [facility] Comprehensive Metabolic Prof ilon 07-23-2024 Albumin [Mass/Vol] 4.2 g/dL Normal 3.5-5.0 [facility] Comment on above: Performed By: #### L 499.0042 #### [facility] [address] [place], [address] Albumin/Globulin [Mass ratio] 1.6 {ratio} Normal 0.9-2.4 [facility] Comment on above: Performed By: #### L 499.0042 #### [facility] [address] [place], [address] ALK PHOS 69 U/L Normal 40-129 [facility] Comment on above: Performed By: #### L 499.0042 #### [facility] [address] [place], [address] ALT [Catalytic activity/Vol] 57 U/L High <=46 [facility] Comment on above: Performed By: #### L 499.0042 #### [facility] [address] [place], [address] AST [Catalytic activity/Vol] 40 U/L High <=37 [facility] Comment on above: Performed By: #### L 499.0042 #### [facility] [address] [place], [address] Bilirubin [Mass/Vol] 0.74 mg/dL Normal 0.00-1.30 [facility] Comment on above: Performed By: #### L 499.0042 #### [facility] [address] [place], [address] BUN/CRE 19.9 RATIO Normal 10-20 [facility] Comment on above: Performed By: #### L 499.0042 #### [facility] [address] [place], [address] Calcium [Mass/Vol] 9.1 mg/dL Normal 7.6-11.0 [facility] Comment on above: Performed By: #### L 499.0042 #### [facility] [address] [place], [address] Chloride [Moles/Vol] 110 mmol/L High 98-108 [facility] Comment on above: Performed By: #### L 499.0042 #### [facility] [address] [place], [address] CO2 [Moles/Vol] 16.5 mmol/L Low 21.0-32.0 [facility] Comment on above: Performed By: #### L 499.0042 #### [facility] [address] [place], [address] Creatinine [Mass/Vol] 1.02 mg/dL Normal 0.70-1.20 [facility] Comment on above: Performed By: #### L 499.0042 #### [facility] [address] [place], [address] ECRCL 77.39 ml/min Normal 50-250 [facility] Comment on above: Performed By: #### L 499.0042 #### [facility] [address] [place], [address] GAP 13 Normal 5-15 [facility] Comment on above: Performed By: #### L 499.0042 #### [facility] [address] [place], [address] GFR/1.73 sq M.predicted among non-blacks MDRD (S/P/Bld) [Vol rate/Area] 93 mL/min/{1.73_m2} Normal >60 [facility] Comment on above: Result Comment: mL/m in/1.73m2 CKD-EPI Creatinine Equation (2020) Performed By: #### L 499.0042 #### [facility] [address] [place], [address] Globulin (S) [Mass/Vol] 2.6 g/dL Normal 2.2-4.2 [facility] Comment on above: Performed By: #### L 499.0042 #### [facility] [address] [place], [address] Glucose [Mass/Vol] 174 mg/dL High 70-99 [facility] Comment on above: Performed By: #### L 499.0042 #### [facility] [address] [place], [address] Potassium [Moles/Vol] 4.3 mmol/L Normal 3.3-5.1 [facility] Comment on above: Performed By: #### L 499.0042 #### [facility] [address] [place], [address] Sodium [Moles/Vol] 140 mmol/L Normal 133-145 [facility] Comment on above: Performed By: #### L 499.0042 #### [facility] [address] [place], [address] T PROT 6.8 g/dL Normal 5.9-8.4 [facility] Comment on above: Performed By: #### L 499.0042 #### [facility] [address] [place], [address] Urea nitrogen [Mass/Vol] 20 mg/dL High 4-19 [facility] Comment on above: Performed By: #### L 499.0042 #### [facility] [address] [place], [address] Discharge Instructionon 2 Discharge Instruction [facility] Medical Records Department [address] [place] [address] Instructions for Home/Discharge Instructions 07/23/24912 MR#: [id number] Acct: [id number] Name: DANNY BEDOYA Rep #: [id number] : 1980 44 From: Andrea Daly MD [...] - Within 1 Week Echo Michael NP, SCRAP PREPARATION SUPERVISOR-C [Med Staff - Adv Practice Prof] - Within 1 Month Disposition Disposition (needs filled in before D/C Order can be placed): Home, Self Care 07/23/24928 Andrea Daly MD CC: Dr. Lexi Barnes MD; Dr. Lisa Jain DO Signed Normal [facility] Electrocardiogram reportOrde red By: Alexy York on 07-23-2024 EKG study [facility] Cardiovascular Services [address] [place] [address] 12 Lead EKG 07/22/24 0129 MR#: [id number] Acct: [id number] Name: DANNY BDEOYA Rep #:[id number] : 1980 44 From: Alexy York MD Attending Dr: Dr. Andrea Daly MD Status: ADM IN Ordering Dr: Natalie Jeffery DO Date: 0 07/22/24 Location: [place] Sex: M C Admitted: 07/22/24 Test Reason [...] Borderline ECG Confirmed by YANG JIANG, ALEXY ([id number]), visual effects editor SHARON HANNAH ([id number]) on 07/23/2024 8:19:45 AM Referred By: Confirmed By: ALEXY YORK MD 07/23/24 0819 Date _ Alexy York MD CC: Dr. Lexi Barnes MD; Dr. Natalie Jeffery DO; Dr. Andrea Daly MD ~ Signed [facility] Other Phone: Eosinophil percentageOrdered By: Lisa Wallis on 07-23-2024 Eosinophils/100 WBC (Bld) 0.0 % 0-5 [facility] Erythrocyte distribution wid th ratioOrdered By: Lisa Wallis on 07-23-2024 Erythrocyte distribution width (RBC) [Ratio] 12.7 % 11.6-14.6 [facility] Erythrocyte distribution wid th standard deviationOrdered By: Lisa Wallis on 07-23-2024 Erythrocyte distribution width (RBC) [Entitic vol] 38.7 fL 35.1-43.9 [facility] Estimation of creatinine niru aranceOrdered By: Lisa Wallis on 07-23-2024 Estimated Creatinine Clearance Calc 77.39 ml/min 50-250 [facility] GFR/1.73 sq M.predicted jyoti g non-blacks MDRD (S/P/Bld) [Vol rate/Area]Ordered By: Lisa Wallis on 07-23-2024 Estimated GFR (MDRD) Non-Af Amer 93 >60 [facility] Comment on above: mL/min/1.73m2 CKD-EP I Creatinine Equation (2020) Hematocrit Auto (Bld) [Volum e fraction]Ordered By: Lisa Wallis on 07-23-2024 Hematocrit (Bld) [Volume fraction] 40.4 % 40-54 [facility] Hemoglobin measurementOrdere d By: Lisa Wallis on 07-23-2024 Hemoglobin (Bld) [Mass/Vol] 13.9 g/dL 13.0-16.5 [facility] Immature granulocytes/100 WB C Auto (Bld)Ordered By: Lisa Wallis on 07-23-2024 Immature granulocytes/100 WBC (Bld) 0.700 % 0.0-0.9 [facility] Comment on above: IG% - Immature Granu locytes (promyelocytes, myelocytes and metamyelocytes) > 1% indicates that a LEFT SHIFT is Present. Laboratory - Chemistry and C hemistry - challengeOrdered By: Lisa Wallis on 07-23-2024 AST [Catalytic activity/Vol] 40 U/L High <38 [facility] Lymphocytes Auto (Unsp spec) [#/Vol]Ordered By: Lisa Wallis on 07-23-2024 Lymphocytes (Bld) [#/Vol] 0.56 10*3/uL Low 0.83-4.51 [facility] Lymphocytes/100 WBC Auto (Un sp spec)Ordered By: Lisa Wallis on 07-23-2024 Lymphocytes/100 WBC (Bld) 6.4 % Low 19-41 [facility] MCV (mean corpuscular volume ) determinationOrdered By: Lisa Wallis on 07-23-2024 MCV (RBC) [Entitic vol] 84.9 fL 80-94 [facility] Magnesiumon 07-23-2024 Magnesium [Mass/Vol] 1.9 mg/dL Normal 1.5-2.2 [facility] Comment on above: Performed By: #### L 499.0042 #### [facility] [address] [place], [address] Magnesium (Unsp spec) [Mass/ Vol]Ordered By: Andrea Daly on 07-23-2024 Magnesium [Mass/Vol] 1.9 mg/dL 1.5-2.2 [facility] Mean corpuscular hemoglobin (MCH) determinationOrdered By: Lisa Wallis on 07-23-2024 MCH (RBC) [Entitic mass] 29.2 pg 27.0-32.0 [facility] Mean corpuscular hemoglobin concentration (MCHC) determinationOrdered By: Lisa Wallis on 07-23-2024 MCHC (RBC) [Mass/Vol] 34.4 g/dL 32-36 [facility] Mean platelet volume determi nationOrdered By: Lisa Wallis on 07-23-2024 Platelet mean volume (Bld) [Entitic vol] 9.4 fL 6.2-12.0 [facility] Monocyte percentageOrdered B y: Lisa Wallis on 07-23-2024 Monocytes/100 WBC (Bld) 3.6 % 0-10 [facility] Neutrophil percentageOrdered By: Lisa Wallis on 07-23-2024 Neutrophils/100 WBC (Bld) 89.2 % High 47-70 [facility] Nucleated red blood cell per centageOrdered By: Lisa Wallis on 07-23-2024 Nucleated RBC/100 WBC (Bld) [Ratio] 0 % 0-5 [facility] Phosphoruson 07-23-2024 Phosphate [Mass/Vol] 2.6 mg/dL Low 2.7-4.5 [facility] Comment on above: Performed By: #### L 100.0100, L500.2500, L501.5200 #### [facility] [address] [place], [address] Platelet countOrdered By: Jatinder Walils on 07-23-2024 Platelets (Bld) [#/Vol] 173 10*3/uL 150-450 [facility] Potassium (Unsp spec) [Mass/ Vol]Ordered By: Lisa Wallis on 07-23-2024 Potassium [Moles/Vol] 4.3 mmol/L 3.3-5.1 [facility] RBC Auto (Bld) [#/Vol]Ordere d By: Lisa Wallis on 07-23-2024 RBC (Bld) [#/Vol] 4.76 10*6/uL 4.6-6.2 [facility] Serum creatinine measurement (mass/volume)Ordered By: Lisa Wallis on 07-23-2024 Creatinine [Mass/Vol] 1.02 mg/dL 0.70-1.20 [facility] Serum globulin measurementOr dered By: Lisa Wallis on 07-23-2024 Globulin (S) [Mass/Vol] 2.6 g/dL 2.2-4.2 [facility] Serum glucose measurement (m ass/volume)Ordered By: Lisa Wallis on 07-23-2024 Glucose [Mass/Vol] 174 mg/dL High 70-99 [facility] Serum or plasma alanine rodas otransferase (ALT) measurementOrdered By: Lisa Wallis on 07-23-2024 ALT [Catalytic activity/Vol] 57 U/L High <47 [facility] Serum or plasma albumin ginny urement (mass/volume)Ordered By: Lisa Wallis on 07-23-2024 Albumin [Mass/Vol] 4.2 g/dL 3.5-5.0 [facility] Serum or plasma albumin/glob ulin mass ratioOrdered By: Lisa Wallis on 07-23-2024 Albumin/Globulin [Mass ratio] 1.6 {ratio} 0.9-2.4 [facility] Serum or plasma alkaline yarelis sphatase measurementOrdered By: Lisa Wallis on 07-23-2024 ALP [Catalytic activity/Vol] 69 U/L 40-129 [facility] Serum or plasma calcium ginny urement (mass/volume)Ordered By: Lisa Wallis on 07-23-2024 Calcium [Mass/Vol] 9.1 mg/dL 7.6-11.0 [facility] Serum or plasma urea nitroge n measurement (mass/volume)Ordered By: Lisa Wallis on 07-23-2024 Urea nitrogen [Mass/Vol] 20 mg/dL High 4-19 [facility] Serum phosphorus measurement Ordered By: Andrea Daly on 07-23-2024 Phosphorus Level 2.6 mg/dL Low 2.7-4.5 [facility] Sodium levelOrdered By: Fritz Wallis on 07-23-2024 Sodium [Moles/Vol] 140 mmol/L 133-145 [facility] Total proteinOrdered By: Urbano Wallis on 07-23-2024 Protein [Mass/Vol] 6.8 g/dL 5.9-8.4 [facility] White blood cell (WBC) count Ordered By: Lisa Wallis on 07-23-2024 WBC (Bld) [#/Vol] 8.7 10*3/uL 4.4-11.0 [facility] 12 Lead EKGon 07-22-2024 12 Lead EKG [facility] Cardiovascular Services [address] [place] [address] 12 Lead EKG 07/22/24 0129 MR#: [id number] Acct: [id number] Name: DANNY BEDOYA Rep #: [id number] : 1980 44 From: Alexy York MD Attending Dr: Dr. Andrea Daly MD Status : ADM IN Ordering Dr: Natalie Jeffery DO Date: 07/22/24 [place] [facility] [place] Sex: M C Admitted: 07/22/24 Test Reason [...] ECG Confirmed by ALEXY YORK MD ([id number]), visual effects editor SHARON HANNAH ([id number]) on 07/23/2024 8:19:45 AM Referred By: Confirmed By: ALEXY YORK MD 07/23/24 0819 Date Alexy York MD CC: Dr. Lexi Barnes MD; Dr. Natalie Jeffery DO; Dr. Andrea Daly MD Signed Normal [facility] Absolute neutrophil countOrd ered By: Natalie Jeffery on 07-22-2024 Neutrophils (Bld) [#/Vol] 7.4 10*3/uL 2.0-7.7 [facility] Anion gap in Serum or Plasma Ordered By: Natalie Jeffery on 07-22-2024 Anion gap [Moles/Vol] 15 mmol/L 5-15 [facility] Arterial patency Wrist arter y --pre arterial punctureOrdered By: Lisa Wallis on 07-22-2024 Aleksandar Test Positive [facility] Arterial patency Wrist arter y --pre arterial punctureOrdered By: Natalie Jeffery on 07-22-2024 Aleksandar Test Positive [facility] BUN/creatinine ratioOrdered By: Natalie Jeffery on 07-22-2024 Urea nitrogen/Creatinine [Mass ratio] 19.2 mg/mg 10- [facility] Base excess Calc (BldV) [Mol es/Vol]Ordered By: Lisa Wallis on 07-22-2024 Blood Gas Base Excess -3 mmol/L Low -2-2 [facility] Base excess Calc (BldV) [Mol es/Vol]Ordered By: Natalie Jeffery on 07-22-2024 Blood Gas Base Excess 3 mmol/L High -2-2 [facility] Basic Metabolic Profile (BMP )on 07-22-2024 BUN/CRE 19.2 RATIO Normal - [facility] Comment on above: Performed By: #### L 100.0100, L500.2500 #### [facility] [address] [place], [address] Calcium [Mass/Vol] 9.6 mg/dL Normal 7.6-11.0 [facility] Comment on above: Performed By: #### L 100.0100, L500.2500 #### [facility] [address] [place], [address] Chloride [Moles/Vol] 104 mmol/L Normal 98-108 [facility] Comment on above: Performed By: #### L 100.0100, L500.2500 #### [facility] [address] [place], [address] CO2 [Moles/Vol] 21.8 mmol/L Normal 21.0-32.0 [facility] Comment on above: Performed By: #### L 100.0100, L500.2500 #### [facility] [address] [place], [address] Creatinine [Mass/Vol] 1.21 mg/dL High 0.70-1.20 [facility] Comment on above: Performed By: #### L 100.0100, L500.2500 #### [facility] [address] [place], [address] ECRCL 110.15 ml/min Normal 50-250 [facility] Comment on above: Performed By: #### L 100.0100, L500.2500 #### [facility] [address] [place], [address] GAP 15 Normal 5-15 [facility] Comment on above: Performed By: #### L 100.0100, L500.2500 #### [facility] [address] [place], [address] GFR/1.73 sq M.predicted among non-blacks MDRD (S/P/Bld) [Vol rate/Area] 76 mL/min/{1.73_m2} Normal >60 [facility] Comment on above: Result Comment: mL/m in/1.73m2 CKD-EPI Creatinine Equation (2020) Performed By: #### L 100.0100, L500.2500 #### [facility] [address] [place], [address] Glucose [Mass/Vol] 94 mg/dL Normal 70-99 [facility] Comment on above: Performed By: #### L 100.0100, L500.2500 #### [facility] [address] [place], [address] Potassium [Moles/Vol] 4.1 mmol/L Normal 3.3-5.1 [facility] Comment on above: Performed By: #### L 100.0100, L500.2500 #### [facility] [address] [place], [address] Sodium [Moles/Vol] 141 mmol/L Normal 133-145 [facility] Comment on above: Performed By: #### L 100.0100, L500.2500 #### [facility] [address] [place], [address] Urea nitrogen [Mass/Vol] 23 mg/dL High 4-19 [facility] Comment on above: Performed By: #### L 100.0100, L500.2500 #### [facility] [address] [place], [address] Basophil percentageOrdered B y: Natalie Jeffery on 07-22-2024 Basophils/100 WBC (Bld) 0.7 % 0-1 [facility] Blood Gases by CPSon 025 ALEKSANDAR TEST Positive Normal [facility] Comment on above: Performed By: #### L 499.0042 #### [facility] [address] [place], [address] Base excess Calc (Bld) [Moles/Vol] -3 mmol/L Low -2 to +2 [facility] Comment on above: Performed By: #### L 499.0042 #### [facility] [address] [place], [address] Blood Gas Type ART Normal [facility] Comment on above: Performed By: #### L 499.0042 #### [facility] [address] [place], [address] CO2 [Moles/Vol] 23 mmol/L Normal [facility] Comment on above: Performed By: #### L 499.0042 #### [facility] [address] [place], [address] FI02 4.0 Normal [facility] Comment on above: Performed By: #### L 499.0042 #### [facility] [address] [place], [address] HCO3 (Bld) [Moles/Vol] 22.1 mmol/L Normal 22-26 [facility] Comment on above: Performed By: #### L 499.0042 #### [facility] [address] [place], [address] Mode Not entered Normal [facility] Comment on above: Performed By: #### L 499.0042 #### [facility] [address] [place], [address] O2 Delivery Dev Cannula Normal [facility] Comment on above: Performed By: #### L 499.0042 #### [facility] [address] [place], [address] pCO2 36.7 mmHg Normal 35-45 [facility] Comment on above: Performed By: #### L 499.0042 #### [facility] [address] [place], [address] pH (Bld) 7.39 [pH] Normal 7.35-7.45 [facility] Comment on above: Performed By: #### L 499.0042 #### [facility] [address] [place], [address] PO2 76 mmHG Normal 75-100 [facility] Comment on above: Performed By: #### L 499.0042 #### [facility] [address] [place], [address] SITE L Radial Normal [facility] Comment on above: Performed By: #### L 499.0042 #### [facility] [address] [place], [address] SO2 95 Normal 95-99 [facility] Comment on above: Performed By: #### L 499.0042 #### [facility] [address] [place], [address] ALEKSANDAR TEST Positive Normal [facility] Comment on above: Performed By: #### L 499.0042 #### [facility] [address] [place], [address] Base excess Calc (Bld) [Moles/Vol] 3 mmol/L High -2 to +2 [facility] Comment on above: Performed By: #### L 499.0042 #### [facility] [address] [place], [address] Blood Gas Type ART Normal [facility] Comment on above: Performed By: #### L 499.0042 #### [facility] [address] [place], [address] CO2 [Moles/Vol] 29 mmol/L Normal [facility] Comment on above: Performed By: #### L 499.0042 #### [facility] [address] [place], [address] Comment Normal [facility] Comment on above: Result Comment: AVAP S 450vt 12rr 26maxP 16minP +8 30% Performed By: #### L 499.0042 #### [facility] [address] [place], [address] FI02 30.0 Normal [facility] Comment on above: Performed By: #### L 499.0042 #### [facility] [address] [place], [address] HCO3 (Bld) [Moles/Vol] 27.6 mmol/L High 22-26 [facility] Comment on above: Performed By: #### L 499.0042 #### [facility] [address] [place], [address] Mode Not entered Normal [facility] Comment on above: Performed By: #### L 499.0042 #### [facility] [address] [place], [address] O2 Delivery Dev BiPAP Normal [facility] Comment on above: Performed By: #### L 499.0042 #### [facility] [address] [place], [address] pCO2 46.6 mmHg High 35-45 [facility] Comment on above: Performed By: #### L 499.0042 #### [facility] [address] [place], [address] pH (Bld) 7.38 [pH] Normal 7.35-7.45 [facility] Comment on above: Performed By: #### L 499.0042 #### [facility] [address] [place], [address] PO2 86 mmHG Normal 75-100 [facility] Comment on above: Performed By: #### L 499.0042 #### [facility] [address] [place], [address] SITE L Radial Normal [facility] Comment on above: Performed By: #### L 499.0042 #### [facility] [address] [place], [address] SO2 96 Normal 95-99 [facility] Comment on above: Performed By: #### L 499.0042 #### [facility] [address] [place], [address] Blood bicarbonate measuremen tOrdered By: Lisa Wallis on 07-22-2024 Blood Gas Bicarbonate Actual 22.1 mmol/L 22-26 [facility] Blood bicarbonate measuremen tOrdered By: Natalie Jeffery on 07-22-2024 Blood Gas Bicarbonate Actual 27.6 mmol/L High [facility] CBC W/Diff, Automatedon - Absolute Lymph 1.75 X10 3/uL Normal 0.83-4.51 [facility] Comment on above: Performed By: #### L 100.0100, L500.2500 #### [facility] [address] [place], [address] Absolute Neut 7.4 X10 3/uL Normal 2.0-7.7 [facility] Comment on above: Performed By: #### L 100.0100, L500.2500 #### [facility] [address] [place], [address] Basophils/100 WBC (Bld) 0.7 % Normal 0-1 [facility] Comment on above: Performed By: #### L 100.0100, L500.2500 #### [facility] [address] [place], [address] Eosinophils/100 WBC (Bld) 4.4 % Normal 0-5 [facility] Comment on above: Performed By: #### L 100.0100, L500.2500 #### [facility] [address] [place], [address] Erythrocyte distribution width (RBC) [Ratio] 12.7 % Normal 11.6-14.6 [facility] Comment on above: Performed By: #### L 100.0100, L500.2500 #### [facility] [address] [place], [address] Hematocrit (Bld) [Volume fraction] 45.2 % Normal 40-54 [facility] Comment on above: Performed By: #### L 100.0100, L500.2500 #### [facility] [address] [place], [address] Hemoglobin (Bld) [Mass/Vol] 15.9 g/dL Normal 13.0-16.5 [facility] Comment on above: Performed By: #### L 100.0100, L500.2500 #### [facility] [address] [place], [address] IG% 0.600 Normal 0.0-0.9 [facility] Comment on above: Result Comment: IG% - Immature Granulocytes (promyelocytes, myelocytes and metamyelocytes) > 1% indicates that a LEFT SHIFT is Present. Performed By: #### L 100.0100, L500.2500 #### [facility] [address] [place], [address] Lymphocytes/100 WBC (Bld) 16.6 % Low 19-41 [facility] Comment on above: Performed By: #### L 100.0100, L500.2500 #### [facility] [address] [place], [address] MCH (RBC) [Entitic mass] 29.4 pg Normal 27.0-32.0 [facility] Comment on above: Performed By: #### L 100.0100, L500.2500 #### [facility] [address] [place], [address] MCHC (RBC) [Mass/Vol] 35.2 g/dL Normal 32-36 [facility] Comment on above: Performed By: #### L 100.0100, L500.2500 #### [facility] [address] [place], [address] MCV (RBC) [Entitic vol] 83.7 fL Normal 80-94 [facility] Comment on above: Performed By: #### L 100.0100, L500.2500 #### [facility] [address] [place], [address] Monocytes/100 WBC (Bld) 7.6 % Normal 0-10 [facility] Comment on above: Performed By: #### L 100.0100, L500.2500 #### [facility] [address] [place], [address] Neutrophils/100 WBC (Bld) 70.1 % High 47-70 [facility] Comment on above: Performed By: #### L 100.0100, L500.2500 #### [facility] [address] [place], [address] Nucleated RBC (Bld) [#/Vol] 0 10*3/uL Normal 0-5 [facility] Comment on above: Performed By: #### L 100.0100, L500.2500 #### [facility] [address] [place], [address] Platelet mean volume (Bld) [Entitic vol] 9.2 fL Normal 6.2-12.0 [facility] Comment on above: Performed By: #### L 100.0100, L500.2500 #### [facility] [address] [place], [address] Platelets (Bld) [#/Vol] 155 10*3/uL Normal 150-450 [facility] Comment on above: Performed By: #### L 100.0100, L500.2500 #### [facility] [address] [place], [address] RBC (Bld) [#/Vol] 5.40 10*6/uL Normal 4.6-6.2 [facility] Comment on above: Performed By: #### L 100.0100, L500.2500 #### [facility] [address] [place], [address] RDW SD 37.9 fl Normal 35.1-43.9 [facility] Comment on above: Performed By: #### L 100.0100, L500.2500 #### [facility] [address] [place], [address] WBC (Bld) [#/Vol] 10.5 10*3/uL Normal 4.4-11.0 [facility] Comment on above: Performed By: #### L 100.0100, L500.2500 #### [facility] [address] [place], [address] Carbon dioxide, total [Moles /volume] in Central venous bloodOrdered By: Natalie Jeffery on 07-22-2024 CO2 [Moles/Vol] 21.8 mmol/L 21.0-32.0 [facility] Chest 1 View (Portable)on Chest 1 View (Portable) [facility] Imaging Services [address] [place] [address] Chest 1 View (Portable) MR#: [id number] Acct: [id number] Name: DANNY BEDOYA Rep #: [id number] : 1980 M 44 From: Nathan Srinivasan MD PCP: Dr. Lexi Barnes MD Status: [facility] Study: Chest 1 View (Portable) Date of Exam: 07/22/24 Exam# [id number] Ordering Dr: Natalie Jeffery DO PROCEDURE: CHEST [...] No evidence of acute disease. Reading Location: [id number] CC: Dr. Lexi Barnes MD; Dr. Natalie Jeffery DO Diabetes Physician: Signed Normal [facility] Chloride assayOrdered By: Oliverio Jeffery on 07-22-2024 Chloride [Moles/Vol] 104 mmol/L 98-108 [facility] Determination of fraction of inspired oxygenOrdered By: Lisa Wallis on 07-22-2024 Blood Gas Oxygen Percent 4.0 [facility] Determination of fraction of inspired oxygenOrdered By: Natalie Jeffery on 07-22-2024 Blood Gas Oxygen Percent 30.0 [facility] Emergency Department Summary on 07-22-2024 Emergency Department Summary [facility] Medical Records Department [address] [place] [address] Emergency Department Summary 07/22/24 MR#: [id number] Acct: [id number] Name: DANNY BEDOYA Rep #: [id number] : 1980 44 From: Natalie Jeffery DO PCP: Dr. 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 Normal [facility] Eosinophil percentageOrdered By: Natalie Jeffery on 07-22-2024 Eosinophils/100 WBC (Bld) 4.4 % 0-5 [facility] Erythrocyte distribution wid th ratioOrdered By: Natalie Jeffery on 07-22-2024 Erythrocyte distribution width (RBC) [Ratio] 12.7 % 11.6-14.6 [facility] Erythrocyte distribution wid th standard deviationOrdered By: Natalie Jeffery on 07-22-2024 Erythrocyte distribution width (RBC) [Entitic vol] 37.9 fL 35.1-43.9 [facility] Estimation of creatinine niru aranceOrdered By: Natalie Jeffery on 07-22-2024 Estimated Creatinine Clearance Calc 110.15 ml/min 50-250 [facility] GFR/1.73 sq M.predicted jyoti g non-blacks MDRD (S/P/Bld) [Vol rate/Area]Ordered By: Natalie Jeffery on 07-22-2024 Estimated GFR (MDRD) Non-Af Amer 76 >60 [facility] Comment on above: mL/min/1.73m2 CKD-EP I Creatinine Equation (2020) H AND P Exam - [facility] 07-22-2024 H&P Exam - Hospitalist [facility] Medical Records Department [address] [place] [address] H P Exam - Hospitalist 07/22/24 0310 MR#: [id number] Acct: [id number] Name: DANNY BEDOYA Rep #: [id number] : 1980 44 From: Lisa Jain DO PCP: Dr. Lexi Barnes MD Status:ADM IN Location: [place] [id number] [facility] Date of Admission: 07/22/24 Date of Service: [...] complicated by Respiratory Insufficiency who re-presents to [facility] complaining of SOB. Mr. Bedoya reports his symptoms began approximately one day prior to admission with the sudden-onset of SOB and wheezing that progressively worsened throughout the day. 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 He also [...] is expected to extend beyond 2 midnights. 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 Normal [facility] Hematocrit Auto (Bld) [Volum e fraction]Ordered By: Natalie Jeffery on 07-22-2024 Hematocrit (Bld) [Volume fraction] 45.2 % 40-54 [facility] Hemoglobin measurementOrdere d By: Natalie Jeffery on 07-22-2024 Hemoglobin (Bld) [Mass/Vol] 15.9 g/dL 13.0-16.5 [facility] Immature granulocytes/100 WB C Auto (Bld)Ordered By: Natalie Jeffery on 07-22-2024 Immature granulocytes/100 WBC (Bld) 0.600 % 0.0-0.9 [facility] Comment on above: IG% - Immature Granu locytes (promyelocytes, myelocytes and metamyelocytes) > 1% indicates that a LEFT SHIFT is Present. Influenza virus A and B and SARS-CoV-2 (COVID-19) and Respiratory syncytial virus RNAOrdered By: Natalie Jeffery on 07-22-2024 SARS-CoV-2 (COVID-19) RNA DANA+probe Ql (Unsp spec) [facility] L499.0042on 07-22-2024 Trop T High Sen 12 ng/L Normal <=22 [facility] Comment on above: Performed By: #### L 499.0042 #### [facility] [address] [place], [place], [address] L499.0043on 07-22-2024 Trop T High Sen 8 ng/L Normal <=22 [facility] Comment on above: Performed By: #### L 499.0043 #### [facility] [address] [place], [place], [address] L501.4021on 07-22-2024 Trop T High Sen 10 ng/L Normal <=22 [facility] Comment on above: Performed By: #### L 499.0042 #### [facility] [address] [place], [place], [address] Lymphocytes Auto (Unsp spec) [#/Vol]Ordered By: Natalie Jeffery on 07-22-2024 Lymphocytes (Bld) [#/Vol] 1.75 10*3/uL 0.83-4.51 [facility] Lymphocytes/100 WBC Auto (Un sp spec)Ordered By: Natalie Jeffery on 07-22-2024 Lymphocytes/100 WBC (Bld) 16.6 % Low 19-41 [facility] M100.678on 07-22-2024 M100.678 Pending SARS-CoV-2 (COVID 19) Negative INFLUENZA A Negative INFLUENZA B Negative RSV PCR Negative Normal [facility] Comment on above: Performed By: #### L 100.0100, L500.2500 #### [facility] [address] [place], [place], [address] MCV (mean corpuscular volume ) determinationOrdered By: Natalie Jeffery on 07-22-2024 MCV (RBC) [Entitic vol] 83.7 fL 80-94 [facility] Magnesiumon 07-22-2024 Magnesium [Mass/Vol] 1.6 mg/dL Normal 1.5-2.2 [facility] Comment on above: Performed By: #### L 499.0042 #### [facility] [address] [place], [place], [address] Mean corpuscular hemoglobin (MCH) determinationOrdered By: Natalie Jeffery on 07-22-2024 MCH (RBC) [Entitic mass] 29.4 pg 27.0-32.0 [facility] Mean corpuscular hemoglobin concentration (MCHC) determinationOrdered By: Natalie Jeffery on 07-22-2024 MCHC (RBC) [Mass/Vol] 35.2 g/dL 32-36 [facility] Mean platelet volume determi nationOrdered By: Natalie Jeffery on 03-27-2025 Platelet mean volume (Bld) [Entitic vol] 9.2 fL 6.2-12.0 [facility] Monocyte percentageOrdered B y: Natalie Jeffery on 07-22-2024 Monocytes/100 WBC (Bld) 7.6 % 0-10 [facility] Neutrophil percentageOrdered By: Natalie Jeffery on 07-22-2024 Neutrophils/100 WBC (Bld) 70.1 % High 47-70 [facility] No Panel InformationOrdered By: Lisa Wallis on 07-22-2024 Blood Gas Sample Site L Radial [facility] Blood Gas Specimen Type ART [facility] Blood Gas Vent Mode Not entered [facility] Oxygen Delivery Device Cannula [facility] No Panel InformationOrdered By: Natalie Jeffery on 07-22-2024 Blood Gas Clinical Comments See comment [facility] Comment on above: AVAPS 450vt 12rr 26m axP 16minP +8 30% Blood Gas Sample Site L Radial [facility] Blood Gas Specimen Type ART [facility] Blood Gas Vent Mode Not entered [facility] Oxygen Delivery Device BiPAP [facility] Troponin T High Sensitivity 10 ng/L <22 [facility] Nucleated red blood cell per centageOrdered By: Natalie Jeffery on 07-22-2024 Nucleated RBC/100 WBC (Bld) [Ratio] 0 % 0-5 [facility] Oxygen saturation measuremen tOrdered By: Lisa Wallis on 07-22-2024 Blood Gas Oxygen Saturation 95 % 95-99 [facility] Oxygen saturation measuremen tOrdered By: Natalie Jeffery on 07-22-2024 Blood Gas Oxygen Saturation 96 % 95-99 [facility] Partial pressure of carbon d ioxide measurementOrdered By: Lisa Wallis on 07-22-2024 Arterial Blood Partial Pressure CO2 36.7 mmHg 35-45 [facility] Partial pressure of carbon d ioxide measurementOrdered By: Natalie Jeffery on 07-22-2024 Arterial Blood Partial Pressure CO2 46.6 mmHg High 35-45 [facility] Partial pressure of oxygen m easurementOrdered By: Lisa Wallis on 07-22-2024 Arterial Blood Partial Pressure O2 76 mmHG 75-100 [facility] Partial pressure of oxygen m easurementOrdered By: Natalie Jeffery on 07-22-2024 Arterial Blood Partial Pressure O2 86 mmHG 75-100 [facility] Phosphoruson 07-22-2024 Phosphate [Mass/Vol] 1.8 mg/dL Low 2.7-4.5 [facility] Comment on above: Performed By: #### L 100.0100, L500.2500, L501.5200 #### [facility] [address] [place], [address] Platelet countOrdered By: Oliverio Jeffery on 07-22-2024 Platelets (Bld) [#/Vol] 155 10*3/uL 150-450 [facility] Potassium (Unsp spec) [Mass/ Vol]Ordered By: Natalie Jeffery on 07-22-2024 Potassium [Moles/Vol] 4.1 mmol/L 3.3-5.1 [facility] RBC Auto (Bld) [#/Vol]Ordere d By: Natalie Jeffery on 07-22-2024 RBC (Bld) [#/Vol] 5.40 10*6/uL 4.6-6.2 [facility] RESPIRATORY PANEL MOLECULARo n 07-22-2024 RP PANEL ADENOVIRUS Not Detected INFLUENZA A Not Detected INFLUENZA A (SUBTYPE H1) Not Detected INFLUENZA A (SUBTYPE H3) Not Detected INFLUENZA B Not Detected HUMAN METAPHNEUMO Not Detected PARAINFLUENZA 1 Not Detected PARAINFLUENZA 2 Not Detected PARAINFLUENZA 3 Not Detected PARAINFLUENZA 4 Not Detected RHINOVIRUS Not Detected RSV A Not Detected RSV B Not Detected Normal [facility] Comment on above: Performed By: #### L 499.0042 #### [facility] [address] [place], [place], [id number] Respiratory pathogens DNA an d RNA panel DANA+probe (Resp)Ordered By: Lisa Wallis on 07-22-2024 Respiratory Panel (PCR) [facility] Serum creatinine measurement (mass/volume)Ordered By: Natalie Jeffery on 07-22-2024 Creatinine [Mass/Vol] 1.21 mg/dL High 0.70-1.20 [facility] Serum glucose measurement (m ass/volume)Ordered By: Natalie Jeffery on 07-22-2024 Glucose [Mass/Vol] 94 mg/dL 70-99 [facility] Serum or plasma calcium ginny urement (mass/volume)Ordered By: Natalie Jeffery on 07-22-2024 Calcium [Mass/Vol] 9.6 mg/dL 7.6-11.0 [facility] Serum or plasma urea nitroge n measurement (mass/volume)Ordered By: Natalie Jeffery on 07-22-2024 Urea nitrogen [Mass/Vol] 23 mg/dL High 4-19 [facility] Sodium levelOrdered By: Natalie Jeffery on 07-22-2024 Sodium [Moles/Vol] 141 mmol/L 133-145 [facility] TSH DL <= 0.005 mIU/L QnOrde red By: Lisa Wallis on 07-22-2024 Thyroid Stimulating Hormone (TSH) 0.594 uIU/mL 0.300-4.20 0 [facility] Thyroid Stim Hormone (TSH)on 07-22-2024 TSH 0.594 uIU/mL Normal 0.300-4.20 0 [facility] Comment on above: Performed By: #### L 100.0100, L500.2500, L501.5200 #### [facility] [address] [place], [place], [address] Total carbon dioxide measure mentOrdered By: Lisa Wallis on 07-22-2024 Blood Gas Total CO2 23 mmol/L [facility] Total carbon dioxide measure mentOrdered By: Natalie Jeffery on 07-22-2024 Blood Gas Total CO2 29 mmol/L [facility] Troponin T.cardiac High sens itivity method [Mass/Vol]Ordered By: Natalie Jeffery on 07-22-2024 Troponin T High Sensitivity 4 Hour 8 ng/L <22 [facility] Troponin T High Sensitivity 2 Hour 12 ng/L <22 [facility] White blood cell (WBC) count Ordered By: Natalie Jeffery on 07-22-2024 WBC (Bld) [#/Vol] 10.5 10*3/uL 4.4-11.0 [facility] pH (Unsp spec)Ordered By: Jatinder Wallis on 07-22-2024 Blood Gas pH 7.39 7.35-7.45 [facility] pH (Unsp spec)Ordered By: Oliverio Jeffery on 07-22-2024 Blood Gas pH 7.38 7.35-7.45 [facility] Absolute neutrophil countOrd ered By: Lisa Wallis on 07-06-2024 Neutrophils (Bld) [#/Vol] 4.9 10*3/uL 2.0-7.7 [facility] Anion gap in Serum or Plasma Ordered By: Lisa Wallis on 07-06-2024 Anion gap [Moles/Vol] 16 mmol/L High 5-15 [facility] BUN/creatinine ratioOrdered By: Lisa Wallis on 07-06-2024 Urea nitrogen/Creatinine [Mass ratio] 18.2 mg/mg 10-20 [facility] Base excess Calc (BldV) [Mol es/Vol]Ordered By: Lisa Wallis on 07-06-2024 Venous Blood Base Excess -1 mmol/L -1.0-3.5 [facility] Basophil percentageOrdered B y: Lisa Wallis on 07-06-2024 Basophils/100 WBC (Bld) 0.2 % 0-1 [facility] Bilirubin, totalOrdered By: Lisa Wallis on 07-06-2024 Bilirubin [Mass/Vol] 1.28 mg/dL 0.00-1.30 [facility] CBC W/Diff, Automatedon 06-26 Absolute Lymph 0.51 X10 3/uL Low 0.83-4.51 [facility] Comment on above: Performed By: #### L 100.0100, L500.2500, L501.5200 #### [facility] [address] [place], [address] Absolute Neut 4.9 X10 3/uL Normal 2.0-7.7 [facility] Comment on above: Performed By: #### L 100.0100, L500.2500, L501.5200 #### [facility] [address] [place], [address] Basophils/100 WBC (Bld) 0.2 % Normal 0-1 [facility] Comment on above: Performed By: #### L 100.0100, L500.2500, L501.5200 #### [facility] [address] [place], [address] Eosinophils/100 WBC (Bld) 0.2 % Normal 0-5 [facility] Comment on above: Performed By: #### L 100.0100, L500.2500, L501.5200 #### [facility] [address] [place], [address] Erythrocyte distribution width (RBC) [Ratio] 12.6 % Normal 11.6-14.6 [facility] Comment on above: Performed By: #### L 100.0100, L500.2500, L501.5200 #### [facility] [address] [place], [address] Hematocrit (Bld) [Volume fraction] 46.1 % Normal 40-54 [facility] Comment on above: Performed By: #### L 100.0100, L500.2500, L501.5200 #### [facility] [address] [place], [address] Hemoglobin (Bld) [Mass/Vol] 15.9 g/dL Normal 13.0-16.5 [facility] Comment on above: Performed By: #### L 100.0100, L500.2500, L501.5200 #### [facility] [address] [place], [address] IG% 0.500 Normal 0.0-0.9 [facility] Comment on above: Result Comment: IG% - Immature Granulocytes (promyelocytes, myelocytes and metamyelocytes) > 1% indicates that a LEFT SHIFT is Present. Performed By: #### L 100.0100, L500.2500, L501.5200 #### [facility] [address] [place], [address] Lymphocytes/100 WBC (Bld) 9.2 % Low 19-41 [facility] Comment on above: Performed By: #### L 100.0100, L500.2500, L501.5200 #### [facility] [address] [place], [address] MCH (RBC) [Entitic mass] 29.2 pg Normal 27.0-32.0 [facility] Comment on above: Performed By: #### L 100.0100, L500.2500, L501.5200 #### [facility] [address] [place], [address] MCHC (RBC) [Mass/Vol] 34.5 g/dL Normal 32-36 [facility] Comment on above: Performed By: #### L 100.0100, L500.2500, L501.5200 #### [facility] [address] [place], [address] MCV (RBC) [Entitic vol] 84.6 fL Normal 80-94 [facility] Comment on above: Performed By: #### L 100.0100, L500.2500, L501.5200 #### [facility] [address] [place], [address] Monocytes/100 WBC (Bld) 1.1 % Normal 0-10 [facility] Comment on above: Performed By: #### L 100.0100, L500.2500, L501.5200 #### [facility] [address] [place], [address] Neutrophils/100 WBC (Bld) 88.8 % High 47-70 [facility] Comment on above: Performed By: #### L 100.0100, L500.2500, L501.5200 #### [facility] [address] [place], [address] Nucleated RBC (Bld) [#/Vol] 0 10*3/uL Normal 0-5 [facility] Comment on above: Performed By: #### L 100.0100, L500.2500, L501.5200 #### [facility] [address] [place], [address] Platelet mean volume (Bld) [Entitic vol] 9.1 fL Normal 6.2-12.0 [facility] Comment on above: Performed By: #### L 100.0100, L500.2500, L501.5200 #### [facility] [address] [place], [address] Platelets (Bld) [#/Vol] 203 10*3/uL Normal 150-450 [facility] Comment on above: Performed By: #### L 100.0100, L500.2500, L501.5200 #### [facility] [address] [place], [address] RBC (Bld) [#/Vol] 5.45 10*6/uL Normal 4.6-6.2 [facility] Comment on above: Performed By: #### L 100.0100, L500.2500, L501.5200 #### [facility] [address] [place], [address] RDW SD 38.1 fl Normal 35.1-43.9 [facility] Comment on above: Performed By: #### L 100.0100, L500.2500, L501.5200 #### [facility] [address] [place], [address] WBC (Bld) [#/Vol] 5.5 10*3/uL Normal 4.4-11.0 [facility] Comment on above: Performed By: #### L 100.0100, L500.2500, L501.5200 #### [facility] [address] [place], [address] CO2 (BldV) [Moles/Vol]Ordere d By: Lisa Wallis on 07-06-2024 CO2 [Moles/Vol] 24 mmol/L 23-33 [facility] CO2 (BldV) [Partial pressure ]Ordered By: Lisa Wallis on 07-06-2024 Bed Mix Venous Bld PCO2 at Pat Temp 36.2 mmHg Low 41-51 [facility] Carbon dioxide, total [Moles /volume] in Central venous bloodOrdered By: Lisa Wallis on 07-06-2024 CO2 [Moles/Vol] 17.9 mmol/L Low 21.0-32.0 [facility] Chloride assayOrdered By: Jatinder Wallis on 07-06-2024 Chloride [Moles/Vol] 103 mmol/L 98-108 [facility] Comprehensive Metabolic Prof ilon 07-06-2024 Albumin [Mass/Vol] 4.6 g/dL Normal 3.5-5.0 [facility] Comment on above: Performed By: #### L 100.0100, L500.2500, L501.5200 #### [facility] [address] [place], [address] Albumin/Globulin [Mass ratio] 1.5 {ratio} Normal 0.9-2.4 [facility] Comment on above: Performed By: #### L 100.0100, L500.2500, L501.5200 #### [facility] [address] [place], [address] ALK PHOS 81 U/L Normal 40-129 [facility] Comment on above: Performed By: #### L 100.0100, L500.2500, L501.5200 #### [facility] [address] [place], [address] ALT [Catalytic activity/Vol] 23 U/L Normal <=46 [facility] Comment on above: Performed By: #### L 100.0100, L500.2500, L501.5200 #### [facility] [address] [place], [address] AST [Catalytic activity/Vol] 28 U/L Normal <=37 [facility] Comment on above: Performed By: #### L 100.0100, L500.2500, L501.5200 #### [facility] [address] [place], [address] Bilirubin [Mass/Vol] 1.28 mg/dL Normal 0.00-1.30 [facility] Comment on above: Performed By: #### L 100.0100, L500.2500, L501.5200 #### [facility] [address] [place], [address] BUN/CRE 18.2 RATIO Normal 10-20 [facility] Comment on above: Performed By: #### L 100.0100, L500.2500, L501.5200 #### [facility] [address] [place], [address] Calcium [Mass/Vol] 9.5 mg/dL Normal 7.6-11.0 [facility] Comment on above: Performed By: #### L 100.0100, L500.2500, L501.5200 #### [facility] [address] [place], [address] Chloride [Moles/Vol] 103 mmol/L Normal 98-108 [facility] Comment on above: Performed By: #### L 100.0100, L500.2500, L501.5200 #### [facility] [address] [place], [address] CO2 [Moles/Vol] 17.9 mmol/L Low 21.0-32.0 [facility] Comment on above: Performed By: #### L 100.0100, L500.2500, L501.5200 #### [facility] [address] [place], [address] Creatinine [Mass/Vol] 1.01 mg/dL Normal 0.70-1.20 [facility] Comment on above: Performed By: #### L 100.0100, L500.2500, L501.5200 #### [facility] [address] [place], [address] ECRCL 78.15 ml/min Normal 50-250 [facility] Comment on above: Performed By: #### L 100.0100, L500.2500, L501.5200 #### [facility] [address] [place], [address] GAP 16 High 5-15 [facility] Comment on above: Performed By: #### L 100.0100, L500.2500, L501.5200 #### [facility] [address] [place], [address] GFR/1.73 sq M.predicted among non-blacks MDRD (S/P/Bld) [Vol rate/Area] 94 mL/min/{1.73_m2} Normal >60 [facility] Comment on above: Result Comment: mL/m in/1.73m2 CKD-EPI Creatinine Equation (2020) Performed By: #### L 100.0100, L500.2500, L501.5200 #### [facility] [address] [place], [address] Globulin (S) [Mass/Vol] 3.0 g/dL Normal 2.2-4.2 [facility] Comment on above: Performed By: #### L 100.0100, L500.2500, L501.5200 #### [facility] [address] [place], [address] Glucose [Mass/Vol] 169 mg/dL High 70-99 [facility] Comment on above: Performed By: #### L 100.0100, L500.2500, L501.5200 #### [facility] [address] [place], [address] Potassium [Moles/Vol] 4.0 mmol/L Normal 3.3-5.1 [facility] Comment on above: Performed By: #### L 100.0100, L500.2500, L501.5200 #### [facility] [address] [place], [address] Sodium [Moles/Vol] 136 mmol/L Normal 133-145 [facility] Comment on above: Performed By: #### L 100.0100, L500.2500, L501.5200 #### [facility] [address] [place], [address] T PROT 7.6 g/dL Normal 5.9-8.4 [facility] Comment on above: Performed By: #### L 100.0100, L500.2500, L501.5200 #### [facility] [address] [place], [address] Urea nitrogen [Mass/Vol] 18 mg/dL Normal 4-19 [facility] Comment on above: Performed By: #### L 100.0100, L500.2500, L501.5200 #### [facility] [address] [place], [address] Determination of fraction of inspired oxygenOrdered By: Lisa Wallis on 07-06-2024 Blood Gas Oxygen Percent 2.0 [facility] Eosinophil percentageOrdered By: Lisa Wallis on 07-06-2024 Eosinophils/100 WBC (Bld) 0.2 % 0-5 [facility] Erythrocyte distribution wid th ratioOrdered By: Lisa Wallis on 07-06-2024 Erythrocyte distribution width (RBC) [Ratio] 12.6 % 11.6-14.6 [facility] Erythrocyte distribution wid th standard deviationOrdered By: Lisa Wallis on 07-06-2024 Erythrocyte distribution width (RBC) [Entitic vol] 38.1 fL 35.1-43.9 [facility] Estimation of creatinine niru aranceOrdered By: Lisa Wallis on 07-06-2024 Estimated Creatinine Clearance Calc 78.15 ml/min 50-250 [facility] [facility] GFR/1.73 sq M.predicted jyoti g non-blacks MDRD (S/P/Bld) [Vol rate/Area]Ordered By: Lisa Wallis on 07-06-2024 Estimated GFR (MDRD) Non-Af Amer 94 >60 [facility] Comment on above: mL/min/1.73m2 CKD-EP I Creatinine Equation (2020) H AND P Exam - [facility] 07-06-2024 H&P Exam - Hospitalist [facility] Medical Records Department [address] [place] [address] H P Exam - Hospitalist 07/06/24 0218 MR#: [id number] Acct: [id number] Name: DANNY BEDOYA Rep #: [id number] : 1980 44 From: Lisa Jain DO PCP: Dr. Lexi Barnes MD Status:ADM IN [place] [facility] CK062-4 [facility] - General General Date of Admission: 07/06/24 [...] allergy to lisinopril (angioedema), who presents to [facility] complaining of shortness of breath and [...] is expected to extend beyond 2 midnights. 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 Normal [facility] Hematocrit Auto (Bld) [Volum e fraction]Ordered By: Lisa Wallis on 07-06-2024 Hematocrit (Bld) [Volume fraction] 46.1 % 40-54 [facility] Hemoglobin measurementOrdere d By: Lisa Wallis on 07-06-2024 Hemoglobin (Bld) [Mass/Vol] 15.9 g/dL 13.0-16.5 [facility] Immature granulocytes/100 WB C Auto (Bld)Ordered By: Lisa Wallis on 07-06-2024 Immature granulocytes/100 WBC (Bld) 0.500 % 0.0-0.9 [facility] Comment on above: IG% - Immature Granu locytes (promyelocytes, myelocytes and metamyelocytes) > 1% indicates that a LEFT SHIFT is Present. International normalized rat io (INR) calculationOrdered By: Lisa Wallis on 07-06-2024 INR Coag (Bld) [Relative time] 1.1 {INR} [facility] - Chemistry and C hemistry - challengeOrdered By: Lisa Wallis on 07-06-2024 AST [Catalytic activity/Vol] 28 U/L <38 [facility] Lymphocytes Auto (Unsp spec) [#/Vol]Ordered By: Lisa Wallis on 07-06-2024 Lymphocytes (Bld) [#/Vol] 0.51 10*3/uL Low 0.83-4.51 [facility] Lymphocytes/100 WBC Auto (Un sp spec)Ordered By: Lisa Wallis on 07-06-2024 Lymphocytes/100 WBC (Bld) 9.2 % Low 19-41 [facility] MCV (mean corpuscular volume ) determinationOrdered By: Lisa Wallis on 07-06-2024 MCV (RBC) [Entitic vol] 84.6 fL 80-94 [facility] Mean corpuscular hemoglobin (MCH) determinationOrdered By: Lisa Wallis on 07-06-2024 MCH (RBC) [Entitic mass] 29.2 pg 27.0-32.0 [facility] Mean corpuscular hemoglobin concentration (MCHC) determinationOrdered By: Lisa Wallis on 07-06-2024 MCHC (RBC) [Mass/Vol] 34.5 g/dL 32-36 [facility] Mean platelet volume determi nationOrdered By: Lisa Wallis on 07-06-2024 Platelet mean volume (Bld) [Entitic vol] 9.1 fL 6.2-12.0 [facility] Monocyte percentageOrdered B y: Lisa Wallis on 07-06-2024 Monocytes/100 WBC (Bld) 1.1 % 0-10 [facility] Neutrophil percentageOrdered By: Lisa Wallis on 07-06-2024 Neutrophils/100 WBC (Bld) 88.8 % High 47-70 [facility] No Panel InformationOrdered By: Lisa Wallis on 07-06-2024 Blood Gas Sample Site Not entered [facility] Blood Gas Specimen Type DARON [facility] Oxygen Delivery Device Cannula [facility] Nucleated red blood cell per centageOrdered By: Lisa Wallis on 07-06-2024 Nucleated RBC/100 WBC (Bld) [Ratio] 0 % 0-5 [facility] Oxygen (BldV) [Partial press ure]Ordered By: Lisa Wallis on 07-06-2024 Venous Blood Partial Pressure O2 67 mmHg High 25-40 [facility] Phosphoruson 07-06-2024 Phosphate [Mass/Vol] 2.3 mg/dL Low 2.7-4.5 [facility] Comment on above: Performed By: #### L 100.0100, L500.2500, L501.5200 #### [facility] [address] [place], [address] Platelet countOrdered By: Jatinder Wallis on 07-06-2024 Platelets (Bld) [#/Vol] 203 10*3/uL 150-450 [facility] Potassium (Unsp spec) [Mass/ Vol]Ordered By: Lisa Wallis on 07-06-2024 Potassium [Moles/Vol] 4.0 mmol/L 3.3-5.1 [facility] Prothrombin Time w/INRon INR Coag (PPP) [Relative time] 1.1 {INR} Normal [facility] Comment on above: Performed By: #### L 100.0100, L500.2500, L501.5200 #### [facility] [address] [place], [address] PT Coag (PPP) [Time] 14.3 s Normal 11.7-14.9 [facility] Comment on above: Performed By: #### L 100.0100, L500.2500, L501.5200 #### [facility] [address] [place], [address] Prothrombin timeOrdered By: Lisa Wallis on 07-06-2024 PT Coag (PPP) [Time] 14.3 s 11.7-14.9 [facility] RBC Auto (Bld) [#/Vol]Ordere d By: Lisa Wallis on 07-06-2024 RBC (Bld) [#/Vol] 5.45 10*6/uL 4.6-6.2 [facility] Serum creatinine measurement (mass/volume)Ordered By: Lisa Wallis on 07-06-2024 Creatinine [Mass/Vol] 1.01 mg/dL 0.70-1.20 [facility] Serum globulin measurementOr dered By: Lisa Wallis on 07-06-2024 Globulin (S) [Mass/Vol] 3.0 g/dL 2.2-4.2 [facility] Serum glucose measurement (m ass/volume)Ordered By: Lisa Wallis on 07-06-2024 Glucose [Mass/Vol] 169 mg/dL High 70-99 [facility] Serum or plasma alanine rodas otransferase (ALT) measurementOrdered By: Lisa Wallis on 07-06-2024 ALT [Catalytic activity/Vol] 23 U/L <47 [facility] Serum or plasma albumin ginny urement (mass/volume)Ordered By: Lisa Wallis on 07-06-2024 Albumin [Mass/Vol] 4.6 g/dL 3.5-5.0 [facility] Serum or plasma albumin/glob ulin mass ratioOrdered By: Lisa Wallis on 07-06-2024 Albumin/Globulin [Mass ratio] 1.5 {ratio} 0.9-2.4 [facility] Serum or plasma alkaline yarelis sphatase measurementOrdered By: Lisa Wallis on 07-06-2024 ALP [Catalytic activity/Vol] 81 U/L 40-129 [facility] Serum or plasma calcium ginny urement (mass/volume)Ordered By: Lisa Wallis on 07-06-2024 Calcium [Mass/Vol] 9.5 mg/dL 7.6-11.0 [facility] Serum or plasma urea nitroge n measurement (mass/volume)Ordered By: Lisa Wallis on 07-06-2024 Urea nitrogen [Mass/Vol] 18 mg/dL 4-19 [facility] Serum phosphorus measurement Ordered By: Lisa Wallis on 07-06-2024 Phosphorus Level 2.3 mg/dL Low 2.7-4.5 [facility] Sodium levelOrdered By: Fritz Wallis on 07-06-2024 Sodium [Moles/Vol] 136 mmol/L 133-145 [facility] Thyroid Stim Hormone (TSH)on 07-06-2024 TSH 2.050 uIU/mL Normal 0.300-4.20 0 [facility] Comment on above: Performed By: #### L 100.0100, L500.2500 #### [facility] [address] [place], [address] Total proteinOrdered By: Urbano esteves Bimal on 07-06-2024 Protein [Mass/Vol] 7.6 g/dL 5.9-8.4 [facility] Venous Blood Gason 5 Blood Gas Type DARON Normal [facility] Comment on above: Performed By: #### L 499.0042 #### [facility] [address] [place], [address] CO2 [Moles/Vol] 24 mmol/L Normal 23-33 [facility] Comment on above: Performed By: #### L 499.0042 #### [facility] [address] [place], [address] FI02 2.0 Normal [facility] Comment on above: Performed By: #### L 499.0042 #### [facility] [address] [place], [address] HCO3 (Bld) [Moles/Vol] 23 mmol/L Normal 22-26 [facility] Comment on above: Performed By: #### L 499.0042 #### [facility] [address] [place], [address] O2 Delivery Dev Cannula Normal [facility] Comment on above: Performed By: #### L 499.0042 #### [facility] [address] [place], [address] SITE Not entered [facility] Comment on above: Performed By: #### L 499.0042 #### [facility] [address] [place], [address] VBG BE -1 mmol/L Normal -1.0-3.5 [facility] Comment on above: Performed By: #### L 499.0042 #### [facility] [address] [place], [address] VBG pCO2 36.2 mmHg Low 41-51 [facility] Comment on above: Performed By: #### L 499.0042 #### [facility] [address] [place], [address] VBG pH 7.42 Normal 7.32-7.42 [facility] Comment on above: Performed By: #### L 499.0042 #### [facility] [address] [place], [address] VBG PO2 67 mmHg High 25-40 [facility] Comment on above: Performed By: #### L 499.0042 #### [facility] [address] [place], [address] VBG SO2 93 High 50-70 [facility] Comment on above: Performed By: #### L 499.0042 #### [facility] [address] [place], [place], [address] Venous blood bicarbonate mary surementOrdered By: Lisa Wallis on 07-06-2024 HCO3 (Bld) [Moles/Vol] 23 mmol/L 22-26 [facility] Venous blood oxygen saturati on measurementOrdered By: Lisa Wallis on 07-06-2024 Oxygen saturation in Blood 93 % High 50-70 [facility] White blood cell (WBC) count Ordered By: Lisa Wallis on 07-06-2024 WBC (Bld) [#/Vol] 5.5 10*3/uL 4.4-11.0 [facility] pH (BldV)Ordered By: Lisa arriaga on 07-06-2024 Venous Blood pH 7.42 7.32-7.42 [facility] Absolute neutrophil countOrd ered By: Jam Jiang on 07-05-2024 Neutrophils (Bld) [#/Vol] 5.3 10*3/uL 2.0-7.7 [facility] Anion gap in Serum or Plasma Ordered By: Jam Jiang on 07-05-2024 Anion gap [Moles/Vol] 15 mmol/L - [facility] BUN/creatinine ratioOrdered By: Jam Jiang on 07-05-2024 Urea nitrogen/Creatinine [Mass ratio] 17.7 mg/mg 02-14 [facility] Basic Metabolic Profile (BMP )on 07-05-2024 BUN/CRE 17.7 RATIO Normal 02-14 [facility] Comment on above: Performed By: #### L 100.0100, L500.2500, L501.5200 #### [facility] [address] [place], [address] Calcium [Mass/Vol] 9.6 mg/dL Normal 7.6-11.0 [facility] Comment on above: Performed By: #### L 100.0100, L500.2500, L501.5200 #### [facility] [address] [place], [address] Chloride [Moles/Vol] 103 mmol/L Normal 98-108 [facility] Comment on above: Performed By: #### L 100.0100, L500.2500, L501.5200 #### [facility] [address] [place], [address] CO2 [Moles/Vol] 21.0 mmol/L Normal 21.0-32.0 [facility] Comment on above: Performed By: #### L 100.0100, L500.2500, L501.5200 #### [facility] [address] [place], [address] Creatinine [Mass/Vol] 1.00 mg/dL Normal 0.70-1.20 [facility] Comment on above: Performed By: #### L 100.0100, L500.2500, L501.5200 #### [facility] [address] [place], [address] GAP 15 Normal - [facility] Comment on above: Performed By: #### L 100.0100, L500.2500, L501.5200 #### [facility] [address] [place], [address] GFR/1.73 sq M.predicted among non-blacks MDRD (S/P/Bld) [Vol rate/Area] 95 mL/min/{1.73_m2} Normal >60 [facility] Comment on above: Result Comment: mL/m in/1.73m2 CKD-EPI Creatinine Equation (2020) Performed By: #### L 100.0100, L500.2500, L501.5200 #### [facility] [address] [place], [address] Glucose [Mass/Vol] 102 mg/dL High 70-99 [facility] Comment on above: Performed By: #### L 100.0100, L500.2500, L501.5200 #### [facility] [address] [place], [address] Potassium [Moles/Vol] 3.8 mmol/L Normal 3.3-5.1 [facility] Comment on above: Performed By: #### L 100.0100, L500.2500, L501.5200 #### [facility] [address] [place], [address] Sodium [Moles/Vol] 139 mmol/L Normal 133-145 [facility] Comment on above: Performed By: #### L 100.0100, L500.2500, L501.5200 #### [facility] [address] [place], [address] Urea nitrogen [Mass/Vol] 18 mg/dL Normal 4-19 [facility] Comment on above: Performed By: #### L 100.0100, L500.2500, L501.5200 #### [facility] [address] [place], [address] Basophil percentageOrdered B y: Jam Jiang on 03-10-2025 Basophils/100 WBC (Bld) 1.1 % High 0-1 [facility] CBC W/Diff, Automatedon 03-1 0-2025 Absolute Lymph 1.62 X10 3/uL Normal 0.83-4.51 [facility] Comment on above: Performed By: #### L 100.0100, L500.2500, L501.5200 #### [facility] [address] [place], [address] Absolute Neut 5.3 X10 3/uL Normal 2.0-7.7 [facility] Comment on above: Performed By: #### L 100.0100, L500.2500, L501.5200 #### [facility] [address] [place], [address] Basophils/100 WBC (Bld) 1.1 % High 0-1 [facility] Comment on above: Performed By: #### L 100.0100, L500.2500, L501.5200 #### [facility] [address] [place], [address] Eosinophils/100 WBC (Bld) 7.1 % High 0-5 [facility] Comment on above: Performed By: #### L 100.0100, L500.2500, L501.5200 #### [facility] [address] [place], [address] Erythrocyte distribution width (RBC) [Ratio] 12.6 % Normal 11.6-14.6 [facility] Comment on above: Performed By: #### L 100.0100, L500.2500, L501.5200 #### [facility] [address] [place], [address] Hematocrit (Bld) [Volume fraction] 46.9 % Normal 40-54 [facility] Comment on above: Performed By: #### L 100.0100, L500.2500, L501.5200 #### [facility] [address] [place], [address] Hemoglobin (Bld) [Mass/Vol] 16.4 g/dL Normal 13.0-16.5 [facility] Comment on above: Performed By: #### L 100.0100, L500.2500, L501.5200 #### [facility] [address] [place], [address] IG% 0.400 Normal 0.0-0.9 [facility] Comment on above: Result Comment: IG% - Immature Granulocytes (promyelocytes, myelocytes and metamyelocytes) > 1% indicates that a LEFT SHIFT is Present. Performed By: #### L 100.0100, L500.2500, L501.5200 #### [facility] [address] [place], [address] Lymphocytes/100 WBC (Bld) 19.5 % Normal 19-41 [facility] Comment on above: Performed By: #### L 100.0100, L500.2500, L501.5200 #### [facility] [address] [place], [address] MCH (RBC) [Entitic mass] 29.4 pg Normal 27.0-32.0 [facility] Comment on above: Performed By: #### L 100.0100, L500.2500, L501.5200 #### [facility] [address] [place], [address] MCHC (RBC) [Mass/Vol] 35.0 g/dL Normal 32-36 [facility] Comment on above: Performed By: #### L 100.0100, L500.2500, L501.5200 #### [facility] [address] [place], [address] MCV (RBC) [Entitic vol] 84.2 fL Normal 80-94 [facility] Comment on above: Performed By: #### L 100.0100, L500.2500, L501.5200 #### [facility] [address] [place], [address] Monocytes/100 WBC (Bld) 7.6 % Normal 0-10 [facility] Comment on above: Performed By: #### L 100.0100, L500.2500, L501.5200 #### [facility] [address] [place], [address] Neutrophils/100 WBC (Bld) 64.3 % Normal 47-70 [facility] Comment on above: Performed By: #### L 100.0100, L500.2500, L501.5200 #### [facility] [address] [place], [address] Nucleated RBC (Bld) [#/Vol] 0 10*3/uL Normal 0-5 [facility] Comment on above: Performed By: #### L 100.0100, L500.2500, L501.5200 #### [facility] [address] [place], [address] Platelet mean volume (Bld) [Entitic vol] 8.8 fL Normal 6.2-12.0 [facility] Comment on above: Performed By: #### L 100.0100, L500.2500, L501.5200 #### [facility] [address] [place], [address] Platelets (Bld) [#/Vol] 219 10*3/uL Normal 150-450 [facility] Comment on above: Performed By: #### L 100.0100, L500.2500, L501.5200 #### [facility] [address] [place], [address] RBC (Bld) [#/Vol] 5.57 10*6/uL Normal 4.6-6.2 [facility] Comment on above: Performed By: #### L 100.0100, L500.2500, L501.5200 #### [facility] [address] [place], [address] RDW SD 38.3 fl Normal 35.1-43.9 [facility] Comment on above: Performed By: #### L 100.0100, L500.2500, L501.5200 #### [facility] [address] [place], [address] WBC (Bld) [#/Vol] 8.3 10*3/uL Normal 4.4-11.0 [facility] Comment on above: Performed By: #### L 100.0100, L500.2500, L501.5200 #### [facility] [address] [place] [place], [address] Carbon dioxide, total [Moles /volume] in Central venous bloodOrdered By: Jam Jiang on 07-05-2024 CO2 [Moles/Vol] 21.0 mmol/L 21.0-32.0 [facility] Chest PA and Lateralon 07-05 Chest PA and Lateral [facility] [address] [place] [address] Chest PA and Lateral MR#: [id number] Acct: [id number] Name: DANNY BEDOYA Rep #: [id number] : 1980 M 44 From: Anil lopez MD PCP: Dr. Lexi Barnes MD Status: REG ER Study: Chest PA and Lateral Date of Exam: 07/05/24 Exam# [id number] Ordering Dr: Jam Jiang DO PROCEDURE: CHEST PA AND LATERAL REASON FOR EXAM: DYSPNEA TECHNIQUE: Frontal and lateral views of the chest. COMPARISON: 06/11/2024 FINDINGS: The cardiothymic contour is normal. The lungs are clear. The bones are unremarkable. RAD/Chest PA and Lateral IMPRESSION: No acute cardiopulmonary process. Reading Location: [facility] CC: Dr. Lexi Barnes MD; Jam Jiang DO Diabetes Physician: Signed Normal [facility] Chloride assayOrdered By: Erin Jiang on 07-05-2024 Chloride [Moles/Vol] 103 mmol/L 98-108 [facility] Emergency Department Summary on 07-05-2024 Emergency Department Summary [facility] Medical Records Department [address] [place] [address] Emergency Department Summary 07/05/24 MR#: [id number] Acct: [id number] Name: DANNY BEDOYA Rep #: [id number] : 1980 44 From: Jam Jiang DO PCP: Dr. Lexi Barnes MD Status:ADM IN Location: [place] [id number] HPI History of Present Illness Chief Complaint: [...] attacks and therefore comes in for evaluation. 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 Normal [facility] Eosinophil percentageOrdered By: Jam Jiang on 07-05-2024 Eosinophils/100 WBC (Bld) 7.1 % High 0-5 [facility] Erythrocyte distribution wid th ratioOrdered By: Jam Jiang on 07-05-2024 Erythrocyte distribution width (RBC) [Ratio] 12.6 % 11.6-14.6 [facility] Erythrocyte distribution wid th standard deviationOrdered By: Jam Jiang on 07-05-2024 Erythrocyte distribution width (RBC) [Entitic vol] 38.3 fL 35.1-43.9 [facility] GFR/1.73 sq M.predicted jyoti g non-blacks MDRD (S/P/Bld) [Vol rate/Area]Ordered By: Jam Jiang on 07-05-2024 Estimated GFR (MDRD) Non-Af Amer 95 >60 [facility] Comment on above: mL/min/1.73m2 CKD-EP I Creatinine Equation (2020) Hematocrit Auto (Bld) [Volum e fraction]Ordered By: Jam Jiang on 07-05-2024 Hematocrit (Bld) [Volume fraction] 46.9 % 40-54 [facility] Hemoglobin measurementOrdere d By: Jam Jiang on 07-05-2024 Hemoglobin (Bld) [Mass/Vol] 16.4 g/dL 13.0-16.5 [facility] Immature granulocytes/100 WB C Auto (Bld)Ordered By: Jam Jiang on 07-05-2024 Immature granulocytes/100 WBC (Bld) 0.400 % 0.0-0.9 [facility] Comment on above: IG% - Immature Granu locytes (promyelocytes, myelocytes and metamyelocytes) > 1% indicates that a LEFT SHIFT is Present. Influenza virus A and B and SARS-CoV-2 (COVID-19) and Respiratory syncytial virus RNAOrdered By: Jam Jiang on 07-05-2024 SARS-CoV-2 (COVID-19) RNA DANA+probe Ql (Unsp spec) [facility] Lymphocytes Auto (Unsp spec) [#/Vol]Ordered By: Jam Jiang on 07-05-2024 Lymphocytes (Bld) [#/Vol] 1.62 10*3/uL 0.83-4.51 [facility] Lymphocytes/100 WBC Auto (Un sp spec)Ordered By: Jam Jiang on 07-05-2024 Lymphocytes/100 WBC (Bld) 19.5 % 19-41 [facility] M100.678on 07-05-2024 M100.678 SARS-CoV-2 (COVID 19 ) Negative INFLUENZA A Negative INFLUENZA B Negative RSV PCR Negative Normal [facility] Comment on above: Performed By: #### L 100.0100, L500.2500 #### [facility] [address] [place], [address] MCV (mean corpuscular volume ) determinationOrdered By: Jam Jiang on 07-05-2024 MCV (RBC) [Entitic vol] 84.2 fL 80-94 [facility] Magnesiumon 07-05-2024 Magnesium [Mass/Vol] 1.7 mg/dL Normal 1.5-2.2 [facility] Comment on above: Performed By: #### L 100.0100, L500.2500, L501.5200 #### [facility] [address] [place], [address] Magnesium (Unsp spec) [Mass/ Vol]Ordered By: Jam Jiang on 07-05-2024 Magnesium [Mass/Vol] 1.7 mg/dL 1.5-2.2 [facility] Mean corpuscular hemoglobin (MCH) determinationOrdered By: Jam Jiang on 07-05-2024 MCH (RBC) [Entitic mass] 29.4 pg 27.0-32.0 [facility] Mean corpuscular hemoglobin concentration (MCHC) determinationOrdered By: Jam Jiang on 07-05-2024 MCHC (RBC) [Mass/Vol] 35.0 g/dL 32-36 [facility] Mean platelet volume determi nationOrdered By: Jam Jiang on 07-05-2024 Platelet mean volume (Bld) [Entitic vol] 8.8 fL 6.2-12.0 [facility] Monocyte percentageOrdered B y: Jam Jiang on 07-05-2024 Monocytes/100 WBC (Bld) 7.6 % 0-10 [facility] Neutrophil percentageOrdered By: Jam Jiang on 07-05-2024 Neutrophils/100 WBC (Bld) 64.3 % 47-70 [facility] Nucleated red blood cell per centageOrdered By: Jam Jiang on 07-05-2024 Nucleated RBC/100 WBC (Bld) [Ratio] 0 % 0-5 [facility] Platelet countOrdered By: Erin Jiang on 07-05-2024 Platelets (Bld) [#/Vol] 219 10*3/uL 150-450 [facility] Potassium (Unsp spec) [Mass/ Vol]Ordered By: Jam Jiang on 07-05-2024 Potassium [Moles/Vol] 3.8 mmol/L 3.3-5.1 [facility] RBC Auto (Bld) [#/Vol]Ordere d By: Jam Jiang on 07-05-2024 RBC (Bld) [#/Vol] 5.57 10*6/uL 4.6-6.2 [facility] Serum creatinine measurement (mass/volume)Ordered By: Jam Jiang on 07-05-2024 Creatinine [Mass/Vol] 1.00 mg/dL 0.70-1.20 [facility] Serum glucose measurement (m ass/volume)Ordered By: Jam Jiang on 07-05-2024 Glucose [Mass/Vol] 102 mg/dL High 70-99 [facility] Serum or plasma calcium ginny urement (mass/volume)Ordered By: Jam Jiang on 07-05-2024 Calcium [Mass/Vol] 9.6 mg/dL 7.6-11.0 [facility] Serum or plasma urea nitroge n measurement (mass/volume)Ordered By: Jam Jiang on 07-05-2024 Urea nitrogen [Mass/Vol] 18 mg/dL 4-19 [facility] Sodium levelOrdered By: Adam Jiang on 07-05-2024 Sodium [Moles/Vol] 139 mmol/L 133-145 [facility] TSH DL <= 0.005 mIU/L QnOrde red By: Lisa Wallis on 07-05-2024 Thyroid Stimulating Hormone (TSH) 2.050 uIU/mL 0.300-4.20 0 [facility] White blood cell (WBC) count Ordered By: Jam Jiang on 07-05-2024 WBC (Bld) [#/Vol] 8.3 10*3/uL 4.4-11.0 [facility] Absolute neutrophil countOrd ered By: Douglas Cruz on 06-11-2024 Neutrophils (Bld) [#/Vol] 6.0 10*3/uL 2.0-7.7 [facility] Basic Metabolic Profile (BMP )on 06-11-2024 BUN/CRE 15.1 RATIO Normal 10-20 [facility] Comment on above: Performed By: #### L 100.0100, L500.2500 #### [facility] [address] [place], [address] CA,Total 9.0 mg/dL Normal 8.5-10.1 [facility] Comment on above: Performed By: #### L 100.0100, L500.2500 #### [facility] [address] [place], [address] Chloride [Moles/Vol] 107 mmol/L Normal 98-107 [facility] Comment on above: Performed By: #### L 100.0100, L500.2500 #### [facility] [address] [place], [address] CO2 [Moles/Vol] 26.0 mmol/L Normal 21.0-32.0 [facility] Comment on above: Performed By: #### L 100.0100, L500.2500 #### [facility] [address] [place], [address] Creatinine [Mass/Vol] 1.06 mg/dL Normal 0.70-1.30 [facility] Comment on above: Result Comment: The validity of the calculated GFR GFRAA in patients over 70 years has not been determined. Clinical correlation is essential. Performed By: #### L 100.0100, L500.2500 #### [facility] [address] [place], [address] ECRCL 77.36 ml/min Normal [facility] Comment on above: Performed By: #### L 100.0100, L500.2500 #### [facility] [address] [place], [address] EST GFR - AA 98 mL/min Normal >60 [facility] Comment on above: Result Comment: Afri can Jordanian GFR Calc Performed By: #### L 100.0100, L500.2500 #### [facility] [address] [place], [address] GAP 4 Low 5-15 [facility] Comment on above: Performed By: #### L 100.0100, L500.2500 #### [facility] [address] [place], [address] GFR/1.73 sq M.predicted among non-blacks MDRD (S/P/Bld) [Vol rate/Area] 81 mL/min/{1.73_m2} Normal >60 [facility] Comment on above: Result Comment: Non- GFR Calc Performed By: #### L 100.0100, L500.2500 #### [facility] [address] [place], [address] Glucose [Mass/Vol] 90 mg/dL Normal 74-106 [facility] Comment on above: Performed By: #### L 100.0100, L500.2500 #### [facility] [address] [place], [address] Potassium [Moles/Vol] 5.2 mmol/L High 3.5-5.1 [facility] Comment on above: Result Comment: Mode rate Hemolysis, Result may be falsely increased. Performed By: #### L 100.0100, L500.2500 #### [facility] [address] [place], [address] Sodium [Moles/Vol] 137 mmol/L Normal 136-145 [facility] Comment on above: Performed By: #### L 100.0100, L500.2500 #### [facility] [address] [place], [address] Urea nitrogen [Mass/Vol] 16 mg/dL Normal 7-18 [facility] Comment on above: Performed By: #### L 100.0100, L500.2500 #### [facility] [address] [place], [address] Basophil percentageOrdered B y: Douglas Cruz on 06-11-2024 Basophils/100 WBC (Bld) 0.6 % 0-1 [facility] Blood urea nitrogen (BUN)/cr eatinine ratioOrdered By: Douglas Cruz on 06-11-2024 Urea nitrogen/Creatinine [Mass ratio] 15.1 mg/mg 10-20 [facility] CBC W/Diff, Automatedon 05-29 Absolute Lymph 1.48 X10 3/uL Normal 0.83-4.51 [facility] Comment on above: Performed By: #### L 100.0100, L500.2500 #### [facility] [address] [place], [address] Absolute Neut 6.0 X10 3/uL Normal 2.0-7.7 [facility] Comment on above: Performed By: #### L 100.0100, L500.2500 #### [facility] [address] [place], [address] Basophils/100 WBC (Bld) 0.6 % Normal 0-1 [facility] Comment on above: Performed By: #### L 100.0100, L500.2500 #### [facility] [address] [place], [address] Eosinophils/100 WBC (Bld) 4.2 % Normal 0-5 [facility] Comment on above: Performed By: #### L 100.0100, L500.2500 #### [facility] [address] [place], [address] Erythrocyte distribution width (RBC) [Ratio] 13.2 % Normal 11.6-14.6 [facility] Comment on above: Performed By: #### L 100.0100, L500.2500 #### [facility] [address] [place], [address] Hematocrit (Bld) [Volume fraction] 47.1 % Normal 40-54 [facility] Comment on above: Performed By: #### L 100.0100, L500.2500 #### [facility] [address] [place], [address] Hemoglobin (Bld) [Mass/Vol] 15.9 g/dL Normal 13.0-16.5 [facility] Comment on above: Performed By: #### L 100.0100, L500.2500 #### [facility] [address] [place], [address] IG% 0.200 Normal 0.0-0.9 [facility] Comment on above: Result Comment: IG% - Immature Granulocytes (promyelocytes, myelocytes and metamyelocytes) > 1% indicates that a LEFT SHIFT is Present. Performed By: #### L 100.0100, L500.2500 #### [facility] [address] [place], [address] Lymphocytes/100 WBC (Bld) 17.5 % Low 19-41 [facility] Comment on above: Performed By: #### L 100.0100, L500.2500 #### [facility] [address] [place], [address] MCH (RBC) [Entitic mass] 29.3 pg Normal 27.0-32.0 [facility] Comment on above: Performed By: #### L 100.0100, L500.2500 #### [facility] [address] [place], [address] MCHC (RBC) [Mass/Vol] 33.8 g/dL Normal 32-36 [facility] Comment on above: Performed By: #### L 100.0100, L500.2500 #### [facility] [address] [place], [address] MCV (RBC) [Entitic vol] 86.7 fL Normal 80-94 [facility] Comment on above: Performed By: #### L 100.0100, L500.2500 #### [facility] [address] [place], [address] Monocytes/100 WBC (Bld) 6.8 % Normal 0-10 [facility] Comment on above: Performed By: #### L 100.0100, L500.2500 #### [facility] [address] [place], [address] Neutrophils/100 WBC (Bld) 70.7 % High 47-70 [facility] Comment on above: Performed By: #### L 100.0100, L500.2500 #### [facility] [address] [place], [address] Nucleated RBC (Bld) [#/Vol] 0 10*3/uL Normal 0-5 [facility] Comment on above: Performed By: #### L 100.0100, L500.2500 #### [facility] [address] [place], [address] Platelet mean volume (Bld) [Entitic vol] 9.3 fL Normal 6.2-12.0 [facility] Comment on above: Performed By: #### L 100.0100, L500.2500 #### [facility] [address] [place], [address] Platelets (Bld) [#/Vol] 199 10*3/uL Normal 150-450 [facility] Comment on above: Performed By: #### L 100.0100, L500.2500 #### [facility] [address] [place], [address] RBC (Bld) [#/Vol] 5.43 10*6/uL Normal 4.6-6.2 [facility] Comment on above: Performed By: #### L 100.0100, L500.2500 #### [facility] [address] [place], [address] RDW SD 39.8 fl Normal 35.1-43.9 [facility] Comment on above: Performed By: #### L 100.0100, L500.2500 #### [facility] [address] [place], [address] WBC (Bld) [#/Vol] 8.5 10*3/uL Normal 4.4-11.0 [facility] Comment on above: Performed By: #### L 100.0100, L500.2500 #### [facility] [address] [place], [address] Carbon dioxide measurementOr dered By: Douglas Cruz on 06-11-2024 CO2 [Moles/Vol] 26.0 mmol/L 21.0-32.0 [facility] Chest PA and Lateralon 06-11 Chest PA and Lateral [facility] [address] [place] [address] Chest PA and Lateral MR#: [id number] Acct: [id number] Name: DANNY BEDOYA Rep #: [id number] : 1980 M 44 From: Ambreen Driver MD PCP: Dr. Lexi Barnes MD Status: REG ER Study: Chest PA and Lateral Date of Exam: 06/11/24 Exam# [id number] Ordering Dr: Douglas Cruz DO PROCEDURE: CHEST [...] Lexi Barnes MD; Dr. Douglas Cruz DO Diabetes Physician: Signed Normal [facility] Chloride measurementOrdered By: Douglas Cruz on 06-11-2024 Chloride [Moles/Vol] 107 mmol/L 98-107 [facility] Emergency Department Summary on 06-11-2024 Emergency Department Summary [facility] Medical Records Department [address] [place] [address] Emergency Department Summary 06/11/24 MR#: [id number] Acct: [id number] Name: DANNY BEDOYA Rep #: [id number] : 1980 44 From: Douglas Cruz DO [...] intact Psych: Cooperative, appropriate mood and affect [facility] Medical History Cirrhosis Asthma Alcohol abuse [...] none current occupational status: employed current occupation: [employer] Smoking Status: Never smoker Electronic Cigarette Use: [...] 18:30 [employer] (more content not included)... Normal [facility] Eosinophil percentageOrdered By: Douglas Cruz on 06-11-2024 Eosinophils/100 WBC (Bld) 4.2 % 0-5 [facility] Erythrocyte distribution wid th ratioOrdered By: Douglas Cruz on 06-11-2024 Erythrocyte distribution width (RBC) [Ratio] 13.2 % 11.6-14.6 [facility] Erythrocyte distribution wid th standard deviationOrdered By: Douglas Todd on 06-11-2024 Erythrocyte distribution width (RBC) [Entitic vol] 39.8 fL 35.1-43.9 [facility] Estimated glomerular filtrat ion rate (GFR) AmericanOrdered By: Douglas Cruz on 06-11-2024 Estimated GFR (MDRD) Amer 98 mL/min >60 [facility] Comment on above: GFR Calc Estimation of creatinine niru aranceOrdered By: Douglas Cruz on 06-11-2024 Estimated Creatinine Clearance Calc 77.36 ml/min [facility] Glomerular filtration rate ( GFR) estimationOrdered By: Douglas Anthony on 06-11-2024 Estimated GFR (MDRD) Non-Af Amer 81 mL/min >60 [facility] Comment on above: Non- GFR Calc Glucose measurementOrdered B y: Douglas Cruz on 06-11-2024 Glucose [Mass/Vol] 90 mg/dL 74-106 [facility] Hematocrit Auto (Bld) [Volum e fraction]Ordered By: Douglas Cruz on 06-11-2024 Hematocrit (Bld) [Volume fraction] 47.1 % 40-54 [facility] Hemoglobin measurementOrdere d By: Douglas Cruz on 06-11-2024 Hemoglobin (Bld) [Mass/Vol] 15.9 g/dL 13.0-16.5 [facility] Immature granulocytes/100 WB C Auto (Bld)Ordered By: Douglas Cruz on 06-11-2024 Immature granulocytes/100 WBC (Bld) 0.200 % 0.0-0.9 [facility] Comment on above: IG% - Immature Granu locytes (promyelocytes, myelocytes and metamyelocytes) > 1% indicates that a LEFT SHIFT is Present. Influenza virus A and B and SARS-CoV-2 (COVID-19) and Respiratory syncytial virus RNAOrdered By: Douglas Cruz on 06-11-2024 SARS-CoV-2 (COVID-19) RNA DANA+probe Ql (Unsp spec) [facility] Lymphocytes Auto (Unsp spec) [#/Vol]Ordered By: Duoglas Cruz on 06-11-2024 Lymphocytes (Bld) [#/Vol] 1.48 10*3/uL 0.83-4.51 [facility] Lymphocytes/100 WBC Auto (Un sp spec)Ordered By: Douglaspamela Cruz on 06-11-2024 Lymphocytes/100 WBC (Bld) 17.5 % Low 19-41 [facility] M100.678on 06-11-2024 M100.678 SARS-CoV-2 (COVID 19 ) Negative INFLUENZA A Negative INFLUENZA B Negative RSV PCR Negative Normal [facility] Comment on above: Performed By: #### L 100.0100, L500.2500 #### [facility] [address] [place] [address], [address] MCV (mean corpuscular volume ) determinationOrdered By: Douglas Anthony on 06-11-2024 MCV (RBC) [Entitic vol] 86.7 fL 80-94 [facility] Mean corpuscular hemoglobin (MCH) determinationOrdered By: [place] Anthony on 06-11-2024 MCH (RBC) [Entitic mass] 29.3 pg 27.0-32.0 [facility] Mean corpuscular hemoglobin concentration (MCHC) determinationOrdered By: [facility] Hospital[facility] on 06-11-2024 MCHC (RBC) [Mass/Vol] 33.8 g/dL 32-36 [facility] Mean platelet volume determi nationOrdered By: Douglas Cruz on 06-11-2024 Platelet mean volume (Bld) [Entitic vol] 9.3 fL 6.2-12.0 [facility] Monocyte percentageOrdered B y: Douglas Cruz on 06-11-2024 Monocytes/100 WBC (Bld) 6.8 % 0-10 [facility] Neutrophil percentageOrdered By: Douglas Cruz on 06-11-2024 Neutrophils/100 WBC (Bld) 70.7 % High 47-70 [facility] Nucleated red blood cell per centageOrdered By: Douglas Cruz on 06-11-2024 Nucleated RBC/100 WBC (Bld) [Ratio] 0 % 0-5 [facility] Platelet countOrdered By: Calderon Cruz on 06-11-2024 Platelets (Bld) [#/Vol] 199 10*3/uL 150-450 [facility] Potassium measurementOrdered By: Douglas Cruz on 06-11-2024 Potassium [Moles/Vol] 5.2 mmol/L High 3.5-5.1 [facility] Comment on above: Moderate Hemolysis, Result may be falsely increased. RBC Auto (Bld) [#/Vol]Ordere d By: Douglas Cruz on 06-11-2024 RBC (Bld) [#/Vol] 5.43 10*6/uL 4.6-6.2 [facility] Serum anion gap measurementO rdered By: Douglas Cruz on 06-11-2024 Anion gap [Moles/Vol] 4 mmol/L Low 5-15 [facility] Serum or plasma calcium ginny urement (mass/volume)Ordered By: Douglas Todd on 06-11-2024 Calcium [Mass/Vol] 9.0 mg/dL 8.5-10.1 [facility] Serum or plasma creatinine m easurement (mass/volume)Ordered By: Douglas Todd on 06-11-2024 Creatinine [Mass/Vol] 1.06 mg/dL 0.70-1.30 [facility] Comment on above: The validity of the calculated GFR & GFRAA in patients over 70 years has not been determined. Clinical correlation is essential. Serum or plasma urea nitroge n measurement (mass/volume)Ordered By: Douglas Cruz on 06-11-2024 Urea nitrogen [Mass/Vol] 16 mg/dL 7-18 [facility] Sodium levelOrdered By: Chago Cruz on 06-11-2024 Sodium [Moles/Vol] 137 mmol/L 136-145 [facility] White blood cell (WBC) count Ordered By: Douglas Cruz on 06-11-2024 WBC (Bld) [#/Vol] 8.5 10*3/uL 4.4-11.0 [facility] L501.5101on 03-31-2024 GGTP 22 IU/L Normal 0-65 [facility] Comment on above: Order Comment: Test( s) [id number] (FK506), Bloodwas developed and its performance characteristicsdetermined by [employer]. It has not been cleared or approvedby the Food and Drug Administration. Result Comment: Perf ormed at: [facility] [address] [id number] Lace Winder: Arlyn Avila MD, Phone: [phone] Performed at: [facility] [address] [id number] Lace Winder: Dago Will PhD, Phone: [phone] Performed By: #### L 100.0100, L500.2500, L501.6996 #### [facility] [address] [place] [address], [address] Tacrolimus (Prograf)on 03-31 Tacrolimus (Bld) [Mass/Vol] 7.5 ng/mL Normal 2.0-20.0 [facility] Comment on above: Order Comment: Test( s) [id number]-Bukpbvgzmr (FK506), Bloodwas developed and its performance characteristicsdetermined by [employer]. It has not been cleared or approvedby the Food and Drug Administration. Result Comment: Trou gh (immediately following transplant) 15.0 Trough (steady state, 2 weeks or more after transplant): 3.0 - 8.0 Performed by LC-MS/MS technology. Performed By: #### L 100.0100, L500.2500, L501.5200 #### [facility] [address] [place], [address] Absolute neutrophil counton 03-29-2024 Neutrophils (Bld) [#/Vol] 3.4 10*3/uL 2.0-7.7 [facility] Basic Metabolic Profile (BMP )on 03-29-2024 BUN/CRE 20.2 RATIO High 10-20 [facility] Comment on above: Performed By: #### L 100.0100, L500.2500, L501.5200 #### [facility] [address] [place], [address] CA,Total 9.0 mg/dL Normal 8.5-10.1 [facility] Comment on above: Performed By: #### L 100.0100, L500.2500, L501.5200 #### [facility] [address] [place], [address] Chloride [Moles/Vol] 110 mmol/L High 98-107 [facility] Comment on above: Performed By: #### L 100.0100, L500.2500, L501.5200 #### [facility] [address] [place], [address] CO2 [Moles/Vol] 23.0 mmol/L Normal 21.0-32.0 [facility] Comment on above: Performed By: #### L 100.0100, L500.2500, L501.5200 #### [facility] [address] [place], [address] Creatinine [Mass/Vol] 1.09 mg/dL Normal 0.70-1.30 [facility] Comment on above: Result Comment: The validity of the calculated GFR GFRAA in patients over 70 years has not been determined. Clinical correlation is essential. Performed By: #### L 100.0100, L500.2500, L501.5200 #### [facility] [address] [place], [address] EST GFR - AA 95 mL/min Normal >60 [facility] Comment on above: Result Comment: Afri can Jordanian GFR Calc Performed By: #### L 100.0100, L500.2500, L501.5200 #### [facility] [address] [place], [address] GAP 6 Normal 5-15 [facility] Comment on above: Performed By: #### L 100.0100, L500.2500, L501.5200 #### [facility] [address] [place], [address] GFR/1.73 sq M.predicted among non-blacks MDRD (S/P/Bld) [Vol rate/Area] 78 mL/min/{1.73_m2} Normal >60 [facility] Comment on above: Result Comment: Non- GFR Calc Performed By: #### L 100.0100, L500.2500, L501.5200 #### [facility] [address] [place], [address] Glucose [Mass/Vol] 107 mg/dL High 74-106 [facility] Comment on above: Result Comment: Fast ing Glucose result from 100 to 125 mg/dL suggests IMPAIRED HOMEOSTASIS per A.D.A. criteria. Performed By: #### L 100.0100, L500.2500, L501.5200 #### [facility] [address] [place], [address] Potassium [Moles/Vol] 4.3 mmol/L Normal 3.5-5.1 [facility] Comment on above: Performed By: #### L 100.0100, L500.2500, L501.5200 #### [facility] [address] [place], [address] Sodium [Moles/Vol] 139 mmol/L Normal 136-145 [facility] Comment on above: Performed By: #### L 100.0100, L500.2500, L501.5200 #### [facility] [address] [place], [address] Urea nitrogen [Mass/Vol] 22 mg/dL High 7-18 [facility] Comment on above: Performed By: #### L 100.0100, L500.2500, L501.5200 #### [facility] [address] [place], [address] Basophil percentageon 2023 Basophils/100 WBC (Bld) 1.2 % High 0-1 [facility] Bilirubin directon 4 Bilirubin.direct [Mass/Vol] 0.41 mg/dL High 0.00-0.30 [facility] Bilirubin, totalon 4 Bilirubin [Mass/Vol] 1.60 mg/dL High 0.20-1.00 [facility] Comment on above: For patients on eltr ombopag therapy, use of Dimension Needles TBIL is not recommended. Blood urea nitrogen (BUN)/cr eatinine ratioon 03-29-2024 Urea nitrogen/Creatinine [Mass ratio] 20.2 mg/mg High 10-20 [facility] CBC W/Diff, Automatedon Absolute Lymph 1.66 X10 3/uL Normal 0.83-4.51 [facility] Comment on above: Performed By: #### L 100.0100, L500.2500, L501.5200 #### [facility] [address] [place], [address] Absolute Neut 3.4 X10 3/uL Normal 2.0-7.7 [facility] Comment on above: Performed By: #### L 100.0100, L500.2500, L501.5200 #### [facility] [address] [place], [address] Basophils/100 WBC (Bld) 1.2 % High 0-1 [facility] Comment on above: Performed By: #### L 100.0100, L500.2500, L501.5200 #### [facility] [address] [place], [address] Eosinophils/100 WBC (Bld) 5.1 % High 0-5 [facility] Comment on above: Performed By: #### L 100.0100, L500.2500, L501.5200 #### [facility] [address] [place], [address] Erythrocyte distribution width (RBC) [Ratio] 12.6 % Normal 11.6-14.6 [facility] Comment on above: Performed By: #### L 100.0100, L500.2500, L501.5200 #### [facility] [address] [place], [address] Hematocrit (Bld) [Volume fraction] 41.0 % Normal 40-54 [facility] Comment on above: Performed By: #### L 100.0100, L500.2500, L501.5200 #### [facility] [address] [place], [address] Hemoglobin (Bld) [Mass/Vol] 14.4 g/dL Normal 13.0-16.5 [facility] Comment on above: Performed By: #### L 100.0100, L500.2500, L501.5200 #### [facility] [address] [place], [address] IG% 0.200 Normal 0.0-0.9 [facility] Comment on above: Result Comment: IG% - Immature Granulocytes (promyelocytes, myelocytes and metamyelocytes) > 1% indicates that a LEFT SHIFT is Present. Performed By: #### L 100.0100, L500.2500, L501.5200 #### [facility] [address] [place], [address] Lymphocytes/100 WBC (Bld) 27.5 % Normal 19-41 [facility] Comment on above: Performed By: #### L 100.0100, L500.2500, L501.5200 #### [facility] [address] [place], [address] MCH (RBC) [Entitic mass] 30.1 pg Normal 27.0-32.0 [facility] Comment on above: Performed By: #### L 100.0100, L500.2500, L501.5200 #### [facility] [address] [place], [address] MCHC (RBC) [Mass/Vol] 35.1 g/dL Normal 32-36 [facility] Comment on above: Performed By: #### L 100.0100, L500.2500, L501.5200 #### [facility] [address] [place], [address] MCV (RBC) [Entitic vol] 85.6 fL Normal 80-94 [facility] Comment on above: Performed By: #### L 100.0100, L500.2500, L501.5200 #### [facility] [address] [place], [address] Monocytes/100 WBC (Bld) 10.4 % High 0-10 [facility] Comment on above: Performed By: #### L 100.0100, L500.2500, L501.5200 #### [facility] [address] [place], [address] Neutrophils/100 WBC (Bld) 55.6 % Normal 47-70 [facility] Comment on above: Performed By: #### L 100.0100, L500.2500, L501.5200 #### [facility] [address] [place], [address] Nucleated RBC (Bld) [#/Vol] 0 10*3/uL Normal 0-5 [facility] Comment on above: Performed By: #### L 100.0100, L500.2500, L501.5200 #### [facility] [address] [place], [address] Platelet mean volume (Bld) [Entitic vol] 9.0 fL Normal 6.2-12.0 [facility] Comment on above: Performed By: #### L 100.0100, L500.2500, L501.5200 #### [facility] [address] [place], [address] Platelets (Bld) [#/Vol] 203 10*3/uL Normal 150-450 [facility] Comment on above: Performed By: #### L 100.0100, L500.2500, L501.5200 #### [facility] [address] [place], [address] RBC (Bld) [#/Vol] 4.79 10*6/uL Normal 4.6-6.2 [facility] Comment on above: Performed By: #### L 100.0100, L500.2500, L501.5200 #### [facility] [address] [place], [address] RDW SD 39.3 fl Normal 35.1-43.9 [facility] Comment on above: Performed By: #### L 100.0100, L500.2500, L501.5200 #### [facility] [address] [place], [address] WBC (Bld) [#/Vol] 6.0 10*3/uL Normal 4.4-11.0 [facility] Comment on above: Performed By: #### L 100.0100, L500.2500, L501.5200 #### [facility] [address] [place], [address] Carbon dioxide measurementon 03-29-2024 CO2 [Moles/Vol] 23.0 mmol/L 21.0-32.0 [facility] Chloride measurementon 03-29 Chloride [Moles/Vol] 110 mmol/L High 98-107 [facility] Eosinophil percentageon 12-0 Eosinophils/100 WBC (Bld) 5.1 % High 0-5 [facility] Erythrocyte distribution wid th ratioon 03-29-2024 Erythrocyte distribution width (RBC) [Ratio] 12.6 % 11.6-14.6 [facility] Erythrocyte distribution wid th standard deviationon 03-29-2024 Erythrocyte distribution width (RBC) [Entitic vol] 39.3 fL 35.1-43.9 [facility] Estimated glomerular filtrat ion rate (GFR) Americanon 03-29-2024 Estimated GFR (MDRD) Amer 95 mL/min >60 [facility] Comment on above: GFR Calc Gamma glutamyl transferase ( GGT) measurementon 03-29-2024 Amylase [Catalytic activity/Vol] 22 U/L 0-65 [facility] Comment on above: Performed at: [employer] [facility] [employer] [address] [id number] Director: Arlyn Avila MD, Phone: [phone] at: [employer] [facility] [address] [id number] Director: Dago Will PhD, Phone: [phone] Glomerular filtration rate ( GFR) estimationon 03-29-2024 Estimated GFR (MDRD) Non-Af Amer 78 mL/min >60 [facility] Comment on above: Non- GFR Calc Glucose measurementon 2023 Glucose [Mass/Vol] 107 mg/dL High 74-106 [facility] Comment on above: Fasting Glucose resu lt from 100 to 125 mg/dL suggests IMPAIRED HOMEOSTASIS per A.D.A. criteria. Hematocrit Auto (Bld) [Volum e fraction]on 03-29-2024 Hematocrit (Bld) [Volume fraction] 41.0 % 40-54 [facility] Hemoglobin measurementon Hemoglobin (Bld) [Mass/Vol] 14.4 g/dL 13.0-16.5 [facility] Immature granulocytes/100 WB C Auto (Bld)on 03-29-2024 Immature granulocytes/100 WBC (Bld) 0.200 % 0.0-0.9 [facility] Comment on above: IG% - Immature Granu locytes (promyelocytes, myelocytes and metamyelocytes) > 1% indicates that a LEFT SHIFT is Present. International normalized rat io (INR) calculationon 03-29-2024 INR Coag (Bld) [Relative time] 1.2 {INR} [facility] - Chemistry and C hemistry - challengeon 03-29-2024 AST [Catalytic activity/Vol] 16 U/L 15-37 [facility] Liver Profileon 03-29-2024 Albumin [Mass/Vol] 3.8 g/dL Normal 3.2-5.0 [facility] Comment on above: Performed By: #### L 100.0100, L500.2500, L501.5200 #### [facility] [address] [place], [address] ALK P 59 U/L Normal 45-117 [facility] Comment on above: Performed By: #### L 100.0100, L500.2500, L501.5200 #### [facility] [address] [place], [address] ALT [Catalytic activity/Vol] 22 U/L Normal 16-61 [facility] Comment on above: Performed By: #### L 100.0100, L500.2500, L501.5200 #### [facility] [address] [place], [address] AST [Catalytic activity/Vol] 16 U/L Normal 15-37 [facility] Comment on above: Performed By: #### L 100.0100, L500.2500, L501.5200 #### [facility] [address] [place], [address] Bilirubin [Mass/Vol] 1.60 mg/dL High 0.20-1.00 [facility] Comment on above: Result Comment: For patients on eltrombopag therapy, use of Dimension Needles TBIL is not recommended. Performed By: #### L 100.0100, L500.2500, L501.5200 #### [facility] [address] [place], [address] Bilirubin.direct [Mass/Vol] 0.41 mg/dL High 0.00-0.30 [facility] Comment on above: Performed By: #### L 100.0100, L500.2500, L501.5200 #### [facility] [address] [place], [address] Globulin (S) [Mass/Vol] 3.3 g/dL Normal 2.2-4.2 [facility] Comment on above: Performed By: #### L 100.0100, L500.2500, L501.5200 #### [facility] [address] [place], [address] T PROT 7.1 g/dL Normal 6.4-8.2 [facility] Comment on above: Performed By: #### L 100.0100, L500.2500, L501.5200 #### [facility] [address] [place], [address] Lymphocytes Auto (Unsp spec) [#/Vol]on 03-29-2024 Lymphocytes (Bld) [#/Vol] 1.66 10*3/uL 0.83-4.51 [facility] Lymphocytes/100 WBC Auto (Un sp spec)on 03-29-2024 Lymphocytes/100 WBC (Bld) 27.5 % 19-41 [facility] MCV (mean corpuscular volume ) determinationon 03-29-2024 MCV (RBC) [Entitic vol] 85.6 fL 80-94 [facility] Magnesiumon 03-29-2024 Magnesium [Mass/Vol] 1.8 mg/dL Normal 1.6-2.6 [facility] Comment on above: Performed By: #### L 100.0100, L500.2500, L501.5200 #### [facility] [address] [place], [address] Magnesium measurementon Magnesium [Mass/Vol] 1.8 mg/dL 1.6-2.6 [facility] Mean corpuscular hemoglobin (MCH) determinationon 03-29-2024 MCH (RBC) [Entitic mass] 30.1 pg 27.0-32.0 [facility] Mean corpuscular hemoglobin concentration (MCHC) determinationon 03-29-2024 MCHC (RBC) [Mass/Vol] 35.1 g/dL 32-36 [facility] Mean platelet volume determi nationon 03-29-2024 Platelet mean volume (Bld) [Entitic vol] 9.0 fL 6.2-12.0 [facility] Monocyte percentageon 2023 Monocytes/100 WBC (Bld) 10.4 % High 0-10 [facility] Neutrophil percentageon Neutrophils/100 WBC (Bld) 55.6 % 47-70 [facility] Nucleated red blood cell per centageon 03-29-2024 Nucleated RBC/100 WBC (Bld) [Ratio] 0 % 0-5 [facility] Phosphoruson 03-29-2024 Phosphate [Mass/Vol] 2.3 mg/dL Low 2.5-4.9 [facility] Comment on above: Performed By: #### L 100.0100, L500.2500, L501.5200 #### [facility] [address] [place], [place], [id number] Phosphorus measurementon Phosphorus Level 2.3 mg/dL Low 2.5-4.9 [facility] Platelet counton 03-29-2024 Platelets (Bld) [#/Vol] 203 10*3/uL 150-450 [facility] Potassium measurementon Potassium [Moles/Vol] 4.3 mmol/L 3.5-5.1 [facility] Prothrombin Time w/INRon INR Coag (PPP) [Relative time] 1.2 {INR} Normal [facility] Comment on above: Performed By: #### L 100.0100, L500.2500, L501.5200 #### [facility] [address] [place], [address] PT Coag (PPP) [Time] 15.0 s High 11.7-14.9 [facility] Comment on above: Performed By: #### L 100.0100, L500.2500, L501.5200 #### [facility] [address] [place], [address] Prothrombin timeon PT Coag (PPP) [Time] 15.0 s High 11.7-14.9 [facility] RBC Auto (Bld) [#/Vol]on RBC (Bld) [#/Vol] 4.79 10*6/uL 4.6-6.2 [facility] Serum anion gap measuremento n 03-29-2024 Anion gap [Moles/Vol] 6 mmol/L 5-15 [facility] Serum globulin measurementon 03-29-2024 Globulin (S) [Mass/Vol] 3.3 g/dL 2.2-4.2 [facility] Serum or plasma alanine rodas otransferase (ALT) measurementon 03-29-2024 ALT [Catalytic activity/Vol] 22 U/L 16-61 [facility] Serum or plasma albumin ginny urement (mass/volume)on 03-29-2024 Albumin [Mass/Vol] 3.8 g/dL 3.2-5.0 [facility] Serum or plasma alkaline yarelis sphatase measurementon 03-29-2024 ALP [Catalytic activity/Vol] 59 U/L 45-117 [facility] Serum or plasma calcium ginny urement (mass/volume)on 03-29-2024 Calcium [Mass/Vol] 9.0 mg/dL 8.5-10.1 [facility] Serum or plasma creatinine m easurement (mass/volume)on 03-29-2024 Creatinine [Mass/Vol] 1.09 mg/dL 0.70-1.30 [facility] Comment on above: The validity of the calculated GFR & GFRAA in patients over 70 years has not been determined. Clinical correlation is essential. Serum or plasma urea nitroge n measurement (mass/volume)on 03-29-2024 Urea nitrogen [Mass/Vol] 22 mg/dL High 7-18 [facility] Sodium levelon 03-29-2024 Sodium [Moles/Vol] 139 mmol/L 136-145 [facility] Tacrolimus levelon Tacrolimus (Prograf) Level 7.5 ng/mL 2.0-20.0 [facility] Comment on above: Trough (immediately following transplant) 15.0 Trough (steady state, 2 weeks or more after transplant): 3.0 - 8.0 Performed by LC-MS/MS technology. Total proteinon 03-29-2024 Protein [Mass/Vol] 7.1 g/dL 6.4-8.2 [facility] White blood cell (WBC) count on 03-29-2024 WBC (Bld) [#/Vol] 6.0 10*3/uL 4.4-11.0 [facility] CNOVon 02-16-2024 CNOV Office Visit (FERNANDO ) DANNY BEDOYA ([id number]) 1980 M Date Time Provider Department 02/16/24 [...] Father b (more content not included)... Normal [facility] 12 Lead EKGon 02-03-2024 12 Lead EKG [facility] Cardiovascular Services [address] [place] [address] 12 Lead EKG 02/03/24 1137 MR#: [id number] Acct: [id number] Name: DANNY BEDOYA Rep #: [id number] : 1980 43 From: Alexy York MD [...] ECG Confirmed by ALEXY YORK MD ([id number]), visual effects editor TIFFANY COTTON ([id number]) on 02/04/2024 9:24:55 AM Referred By: Confirmed By:ALEXY YORK MD 02/04/24924 Date Alexy York MD CC: Dr. Kirit Moreira MD; Dr. Lexi Barnes MD Signed Normal [facility] Chest 1 View (Portable)on Chest 1 View (Portable) [facility] Imaging Services [address] [place] [id number] Chest 1 View (Portable) MR#: [id number] Acct: [id number] Name: DANNY BEDOYA Rep #: [id number] : 1980 M 43 From: James babin MD PCP: Dr. Lexi Barnes MD Status: REG ER Study: Chest 1 View (Portable) Date of Exam: 02/03/24 Exam# [id number] Ordering Dr: Kirit Moreira MD [id number] STUDY: X-RAY CHEST REASON FOR EXAM: Male, [...] 12:19 EDT Reading Location ID and State: [address] [place] [address] , Service support , CC: Dr. Kirit Moreira MD; Dr. Lexi Barnes MD Diabetes Physician: Signed Normal [facility] Emergency Department Summary on 02-03-2024 Emergency Department Summary [facility] Medical Records Department [address] [place] [address] Emergency Department Summary 02/03/24 MR#: [id number] Acct: [id number] Name: DANNY BEDOYA Rep #: [id number] : 1980 43 From: Kirit Moreira MD [...] no nausea or vomiting, no diaphoresis. Non-smoker. 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 Normal [facility] .Auto Diffon 10-25-2023 Basophil, Absolute 0.0 10 3/mcL Normal 0.0-0.2 [facility] ([place]) Comment on above: Performed By: #### T ROPHS, CBC, BMP, MDW, GFR, ADIFF, ANEU #### [address] [place], [place] [address] Basophils/100 WBC (Bld) 0.8 % Normal 0.0-2.5 [facility] ([place]) Comment on above: Performed By: #### T ROPHS, CBC, BMP, MDW, GFR, ADIFF, ANEU #### [address] [address] Eosinophil, Absolute 0.4 10 3/mcL Normal 0.0-0.4 [facility] ([place]) Comment on above: Performed By: #### T ROPHS, CBC, BMP, MDW, GFR, ADIFF, ANEU #### [address] [address] Eosinophils/100 WBC (Bld) 8.4 % High 0.0-7.0 [facility] ([place] Comment on above: Performed By: #### T ROPHS, CBC, BMP, MDW, GFR, ADIFF, ANEU #### [address] [address] Lymphocyte, Absolute 0.8 10 3/mcL Normal 0.8-3.9 [facility] ([place]) Comment on above: Performed By: #### T ROPHS, CBC, BMP, MDW, GFR, ADIFF, ANEU #### [address] [address] Lymphocytes/100 WBC (Bld) 17.0 % Normal 10.0-50.0 [facility] ([place] Comment on above: Performed By: #### T ROPHS, CBC, BMP, MDW, GFR, ADIFF, ANEU #### [address] [address] Monocyte, Absolute 0.5 10 3/mcL Normal 0.2-1.0 [facility] ([place]) Comment on above: Performed By: #### T ROPHS, CBC, BMP, MDW, GFR, ADIFF, ANEU #### [address] [address] Monocytes/100 WBC (Bld) 9.9 % Normal 1.7-13.0 [facility] ([place] Comment on above: Performed By: #### T ROPHS, CBC, BMP, MDW, GFR, ADIFF, ANEU #### [address] [address] Neutrophils/100 WBC (Bld) 63.9 % Normal 37.0-80.0 [facility] ([place] Comment on above: Performed By: #### T ANUPAM SINGH BMP, MDW, GFR, ADIFF, ANEU #### [employer] [address] [address] .GFRon 10-25-2023 GFR Non- 75 ml/min/1.73sqm Normal [facility] ([place] Comment on above: Result Comment: GFR Population [...] BMP, MDW, GFR, ADIFF, ANEU #### [employer] [address] [address] GFR 90 ml/min/1.73sqm Normal [facility] ([place] Comment on above: Result Comment: GFR Population [...] CBC, BMP, MDW, GFR, ADIFF, ANEU #### [address] [address] .MDWon 10-25-2023 Monocyte Distribution Width 18.42 Normal 0.00-20.00 [facility] ([place] Comment on above: Result Comment: For ED adult patients suspected of sepsis, MDW<=20.0 does not rule out sepsis or risk of sepsis Performed By: #### T ROPHS, CBC, BMP, MDW, GFR, ADIFF, ANEU #### [address] [address] .NEUABSon 10-25-2023 Neutrophil, Absolute 3.0 10 3/mcL Normal 2.9-6.2 [facility] ([place]) Comment on above: Performed By: #### T SAMANTHA, CBC, BMP, MDW, GFR, ADIFF, ANEU #### [address] [address] BMPon 10-25-2023 BUN/Creatinine Ratio 15 ratio Normal 7-27 [facility] ([place]) Comment on above: Performed By: #### T SAMANTHA, CBC, BMP, MDW, GFR, ADIFF, ANEU #### [address] [address] Calcium [Mass/Vol] 9.3 mg/dL Normal 8.4-10.2 [facility] ([place]) Comment on above: Performed By: #### T SAMANTHA, CBC, BMP, MDW, GFR, ADIFF, ANEU #### [address] [address] Chloride [Moles/Vol] 105 mmol/L Normal 98-107 [facility] ([place]) Comment on above: Performed By: #### T EMELYNHS, CBC, BMP, MDW, GFR, ADIFF, ANEU #### [address] [address] CO2 [Moles/Vol] 24 mmol/L Normal 22-29 [facility] ([place]) Comment on above: Performed By: #### T EMELYNHS, CBC, BMP, MDW, GFR, ADIFF, ANEU #### [address] [address] Creatinine [Mass/Vol] 1.08 mg/dL Normal 0.70-1.30 [facility] ([place]) Comment on above: Performed By: #### T SAMANTHA, CBC, BMP, MDW, GFR, ADIFF, ANEU #### [address] [address] Electrolyte Balance 12.0 mEq/L Normal 4.0-15.0 [facility] ([place]) Comment on above: Performed By: #### T SAMANTHA, CBC, BMP, MDW, GFR, ADIFF, ANEU #### [address] [address] Glucose [Mass/Vol] 114 mg/dL High 70-105 [facility] ([place]) Comment on above: Performed By: #### T SAMANTHA, CBC, BMP, MDW, GFR, ADIFF, ANEU #### [address] [address] Potassium [Moles/Vol] 4.0 mmol/L Normal 3.5-5.1 [facility] ([place]) Comment on above: Performed By: #### T SAMANTHA, CBC, BMP, MDW, GFR, ADIFF, ANEU #### [address] [address] Sodium [Moles/Vol] 141 mmol/L Normal 136-145 [facility] ([place]) Comment on above: Performed By: #### T SAMANTHA, CBC, BMP, MDW, GFR, ADIFF, ANEU #### [address] [address] Urea nitrogen [Mass/Vol] 16 mg/dL Normal 7-18 [facility] ([place] Comment on above: Performed By: #### T SAMANTHA, CBC, BMP, MDW, GFR, ADIFF, ANEU #### [address] [address] CBCon 10-25-2023 Erythrocyte distribution width (RBC) [Ratio] 14.3 % Normal 11.5-14.5 [facility] ([place] Comment on above: Performed By: #### T SAMANTHA, CBC, BMP, MDW, GFR, ADIFF, ANEU #### [address] [address] Hematocrit (Bld) [Volume fraction] 43.3 % Normal 42.0-52.0 [facility] ([place] Comment on above: Performed By: #### T EMELYNHS, CBC, BMP, MDW, GFR, ADIFF, ANEU #### [address] [address] Hgb 15.0 G/dL Normal 14.0-18.0 [facility] ([place] Comment on above: Performed By: #### T SAMANTHA, CBC, BMP, MDW, GFR, ADIFF, ANEU #### [address] [address] MCH (RBC) [Entitic mass] 30.3 pg Normal 27.0-31.2 [facility] ([place] Comment on above: Performed By: #### T SAMANTHA, CBC, BMP, MDW, GFR, ADIFF, ANEU #### [address] [address] MCHC 34.5 G/dL Normal 31.8-35.4 [facility] ([place] Comment on above: Performed By: #### T SAMANTHA, CBC, BMP, MDW, GFR, ADIFF, ANEU #### [address] [address] MCV (RBC) [Entitic vol] 87.7 fL Normal 80.0-94.0 [facility] ([place] Comment on above: Performed By: #### T SAMANTHA, CBC, BMP, MDW, GFR, ADIFF, ANEU #### [address] [address] Platelet 159 10 3/mcL Normal 130-400 [facility] ([place] Comment on above: Performed By: #### T EMELYNHS, CBC, BMP, MDW, GFR, ADIFF, ANEU #### [place] [id number] Platelet mean volume (Bld) [Entitic vol] 6.6 fL Low 7.4-10.4 [facility] ([place] Comment on above: Performed By: #### T SAMANTHA, CBC, BMP, MDW, GFR, ADIFF, ANEU #### [address] [address] RBC 4.94 10 6/mcL Normal 4.04-6.13 [facility] ([place] Comment on above: Performed By: #### T SAMANTHA, CBC, BMP, MDW, GFR, ADIFF, ANEU #### [address] [place] [address] WBC 4.8 10 3/mcL Normal 4.6-10.8 [facility] ([place] Comment on above: Performed By: #### T SAMANTHA, CBC, BMP, MDW, GFR, ADIFF, ANEU #### [address] [address] CVFLURVon 10-25-2023 FLU A PCR Negative Normal Negative [facility] ([place] Comment on above: Performed By: #### C VFLURV #### [address] FLU B PCR Negative Normal Negative [facility] ([place] Comment on above: Performed By: #### C VFLURV #### [address] [address] RSV PCR Negative Normal Negative [facility]) Comment on above: Performed By: #### C VFLURV #### [address] [address] SARS-CoV-2 (COVID-19) RNA DANA+probe Ql (Unsp spec) Negative Normal Negative [facility]) Comment on above: Result Comment: Resu lts [...] inaccurate positive results. Performed By: #### [facility] #### [address] [place], [place] [address] LABORATORYOrdered By: SYSTEM SYSTEM on 10-25-2023 Basophil, [...] ng/L Male: 0-76 ng/L Testing performed on Cartela AB using a homogeneous sandwich chemiluminescent immunoassay based on YaBeam technology. Urea nitrogen [Mass/Vol] 16 mg/dL Normal [...] influenza vaccines may cause inaccurate positive results. [facility] 10-25-2023 High Sensitivity Troponin I 5 ng/L Normal 0-76 [facility] ([place]) Comment on above: Result Comment: High Sensitive Troponin I Reference Ranges: Female: 0-51 ng/L Male: 0-76 ng/L Testing performed on [employer]ela AB using a homogeneous sandwich chemiluminescent immunoassay based on YaBeam technology. Performed By: #### T ROPHS, CBC, BMP, MDW, GFR, ADIFF, ANEU #### [address] [address] XR CHEST 1 VIEWon 10-25-2023 XR CHEST [...] 10/25/2023 10:36:24 PM Ordering Provider: YVONNE MACE [facility] ([place]) Tacrolimus (Prograf)on 09-18 Tacrolimus (Bld) [Mass/Vol] 6.1 ng/mL Normal 2.0-20.0 [facility] Comment on above: Order Comment: Test( s) [id number] (FK506), Bloodwas developed and its performance characteristicsdetermined by [employer]. It has not been cleared or approvedby the Food and Drug Administration. Result Comment: Trou gh (immediately following transplant) 15.0 Trough (steady state, 2 weeks or more after transplant): 3.0 - 8.0 Performed by LC-MS/MS technology. Performed at: [address] [id number] Lace Winder: Arlyn Avila MD, Phone: [phone] Performed By: #### L 100.0100, L500.2500, L501.5200 #### [facility] [address] [place], [place], [id number] Basic Metabolic Profile (BMP )on 09-15-2023 BUN/CRE 22.6 RATIO High 02-14 [facility] Comment on above: Performed By: #### L 100.0100, L500.2500 #### [facility] [address] [place], [place], [id number] CA,Total 9.2 mg/dL Normal 8.5-10.1 [facility] Comment on above: Performed By: #### L 100.0100, L500.2500 #### [facility] [address] [place], [address] Chloride [Moles/Vol] 108 mmol/L High 98-107 [facility] Comment on above: Performed By: #### L 100.0100, L500.2500 #### [facility] [address] [place], [address] CO2 [Moles/Vol] 23.0 mmol/L Normal 21.0-32.0 [facility] Comment on above: Performed By: #### L 100.0100, L500.2500 #### [facility] [address] [place], [address] Creatinine [Mass/Vol] 1.06 mg/dL Normal 0.70-1.30 [facility] Comment on above: Result Comment: The validity of the calculated GFR GFRAA in patients over 70 years has not been determined. Clinical correlation is essential. Performed By: #### L 100.0100, L500.2500 #### [facility] [address] [place], [address] EST GFR - AA 98 mL/min Normal >60 [facility] Comment on above: Result Comment: Afri can Jordanian GFR Calc Performed By: #### L 100.0100, L500.2500 #### [facility] [address] [place], [address] GAP 6 Normal 5-15 [facility] Comment on above: Performed By: #### L 100.0100, L500.2500 #### [facility] [address] [place], [address] GFR/1.73 sq M.predicted among non-blacks MDRD (S/P/Bld) [Vol rate/Area] 81 mL/min/{1.73_m2} Normal >60 [facility] Comment on above: Result Comment: Non- GFR Calc Performed By: #### L 100.0100, L500.2500 #### [facility] [address] [place], [address] Glucose [Mass/Vol] 101 mg/dL Normal 74-106 [facility] Comment on above: Result Comment: Fast ing Glucose result from 100 to 125 mg/dL suggests IMPAIRED HOMEOSTASIS per A.D.A. criteria. Performed By: #### L 100.0100, L500.2500 #### [facility] [address] [place], [address] Potassium [Moles/Vol] 3.6 mmol/L Normal 3.5-5.1 [facility] Comment on above: Performed By: #### L 100.0100, L500.2500 #### [facility] [address] [place], [address] Sodium [Moles/Vol] 137 mmol/L Normal 136-145 [facility] Comment on above: Performed By: #### L 100.0100, L500.2500 #### [facility] [address] [place], [address] Urea nitrogen [Mass/Vol] 24 mg/dL High 7-18 [facility] Comment on above: Performed By: #### L 100.0100, L500.2500 #### [facility] [address] [place], [address] CBC W/Diff, Automatedon 05-2 0-2024 Absolute Lymph 1.47 X10 3/uL Normal 0.83-4.51 [facility] Comment on above: Performed By: #### L 100.0100, L500.2500 #### [facility] [address] [place], [address] Absolute Neut 2.9 X10 3/uL Normal 2.0-7.7 [facility] Comment on above: Performed By: #### L 100.0100, L500.2500 #### [facility] [address] [place], [address] Basophils/100 WBC (Bld) 1.0 % Normal 0-1 [facility] Comment on above: Performed By: #### L 100.0100, L500.2500 #### [facility] [address] [place], [address] Eosinophils/100 WBC (Bld) 6.0 % High 0-5 [facility] Comment on above: Performed By: #### L 100.0100, L500.2500 #### [facility] [address] [place], [address] Erythrocyte distribution width (RBC) [Ratio] 12.6 % Normal 11.6-14.6 [facility] Comment on above: Performed By: #### L 100.0100, L500.2500 #### [facility] [address] [place], [address] Hematocrit (Bld) [Volume fraction] 39.7 % Low 40-54 [facility] Comment on above: Performed By: #### L 100.0100, L500.2500 #### [facility] [address] [place], [address] Hemoglobin (Bld) [Mass/Vol] 13.7 g/dL Normal 13.0-16.5 [facility] Comment on above: Performed By: #### L 100.0100, L500.2500 #### [facility] [address] [place], [address] IG% 0.200 Normal 0.0-0.9 [facility] Comment on above: Result Comment: IG% - Immature Granulocytes (promyelocytes, myelocytes and metamyelocytes) > 1% indicates that a LEFT SHIFT is Present. Performed By: #### L 100.0100, L500.2500 #### [facility] [address] [place], [address] Lymphocytes/100 WBC (Bld) 28.3 % Normal 19-41 [facility] Comment on above: Performed By: #### L 100.0100, L500.2500 #### [facility] [address] [place], [address] MCH (RBC) [Entitic mass] 29.7 pg Normal 27.0-32.0 [facility] Comment on above: Performed By: #### L 100.0100, L500.2500 #### [facility] [address] [place], [address] MCHC (RBC) [Mass/Vol] 34.5 g/dL Normal 32-36 [facility] Comment on above: Performed By: #### L 100.0100, L500.2500 #### [facility] [address] [place], [address] MCV (RBC) [Entitic vol] 85.9 fL Normal 80-94 [facility] Comment on above: Performed By: #### L 100.0100, L500.2500 #### [facility] [address] [place], [address] Monocytes/100 WBC (Bld) 8.5 % Normal 0-10 [facility] Comment on above: Performed By: #### L 100.0100, L500.2500 #### [facility] [address] [place], [address] Neutrophils/100 WBC (Bld) 56.0 % Normal 47-70 [facility] Comment on above: Performed By: #### L 100.0100, L500.2500 #### [facility] [address] [place], [address] Nucleated RBC (Bld) [#/Vol] 0 10*3/uL Normal 0-5 [facility] Comment on above: Performed By: #### L 100.0100, L500.2500 #### [facility] [address] [place], [address] Platelet mean volume (Bld) [Entitic vol] 9.3 fL Normal 6.2-12.0 [facility] Comment on above: Performed By: #### L 100.0100, L500.2500 #### [facility] [address] [place], [address] Platelets (Bld) [#/Vol] 189 10*3/uL Normal 150-450 [facility] Comment on above: Performed By: #### L 100.0100, L500.2500 #### [facility] [address] [place], [address] RBC (Bld) [#/Vol] 4.62 10*6/uL Normal 4.6-6.2 [facility] Comment on above: Performed By: #### L 100.0100, L500.2500 #### [facility] [address] [place], [address] RDW SD 39.2 fl Normal 35.1-43.9 [facility] Comment on above: Performed By: #### L 100.0100, L500.2500 #### [facility] [address] [place], [address] WBC (Bld) [#/Vol] 5.2 10*3/uL Normal 4.4-11.0 [facility] Comment on above: Performed By: #### L 100.0100, L500.2500 #### [facility] [address] [place], [address] GGTPon 09-15-2023 GGTP 40 U/L Normal 15-85 [facility] Comment on above: Performed By: #### L 100.0100, L500.2500, L501.5200 #### [facility] [address] [place], [address] Liver Profileon 09-15-2023 Albumin [Mass/Vol] 3.9 g/dL Normal 3.2-5.0 [facility] [facility] Comment [facility] above: Performed By: #### L 100.0100, L500.2500, L501.5200 #### [facility] [address] [place], [address] ALK P 61 U/L Normal 45-117 [facility] Comment on above: Performed By: #### L 100.0100, L500.2500, L501.5200 #### [facility] [address] [place], [address] ALT [Catalytic activity/Vol] 25 U/L Normal 16-61 [facility] Comment on above: Performed By: #### L 100.0100, L500.2500, L501.5200 #### [facility] [address] [place], [address] AST [Catalytic activity/Vol] 21 U/L Normal 15-37 [facility] Comment on above: Performed By: #### L 100.0100, L500.2500, L501.5200 #### [facility] [address] [place], [address] Bilirubin [Mass/Vol] 1.00 mg/dL Normal 0.20-1.00 [facility] Comment on above: Result Comment: For patients on eltrombopag therapy, use of Dimension Needles TBIL is not recommended. Performed By: #### L 100.0100, L500.2500, L501.5200 #### [facility] [address] [place], [address] Bilirubin.direct [Mass/Vol] 0.27 mg/dL Normal 0.00-0.30 [facility] Comment on above: Performed By: #### L 100.0100, L500.2500, L501.5200 #### [facility] [address] [place], [address] Globulin (S) [Mass/Vol] 3.2 g/dL Normal 2.2-4.2 [facility] Comment on above: Performed By: #### L 100.0100, L500.2500, L501.5200 #### [facility] [address] [place] [place], [address] T PROT 7.1 g/dL Normal 6.4-8.2 [facility] Comment on above: Performed By: #### L 100.0100, L500.2500, [id number] #### [facility] [address] [place], [address] Magnesiumon 09-15-2023 Magnesium [Mass/Vol] 1.6 mg/dL Normal 1.6-2.6 [facility] Comment on above: Performed By: #### L 100.0100, L500.2500, L501.5200 #### [facility] [address] [place], [address] Phosphoruson 09-15-2023 Phosphate [Mass/Vol] 2.9 mg/dL Normal 2.5-4.9 [facility] Comment on above: Performed By: #### L 100.0100, L500.2500, L501.5200 #### [facility] [address] [place], [address] Prothrombin Time w/INRon INR Coag (PPP) [Relative time] 1.2 {INR} Normal [facility] Comment on above: Performed By: #### L 100.0100, L500.2500 #### [facility] [address] [place], [address] PT Coag (PPP) [Time] 14.7 s Normal 11.7-14.9 [facility] Comment on above: Performed By: #### L 100.0100, L500.2500 #### [facility] [address] [place], [address] Absolute lymphocyte counton 06-16-2023 Lymphocytes Auto (Unsp spec) [#/Vol] 1.24 10*3/uL 0.83-4.51 [facility] Automated lymphocyte count a s percentage of total leukocyteson 06-16-2023 Lymphocytes/100 WBC Auto (Unsp spec) 23.8 % 19-41 [facility] Basophil percentageon 2023 Basophil percentage 3.0 mg/dL 2.5-4.9 [facility] Basophils/100 WBC (Bld) 1.0 % 0-1 [facility] Bilirubin [Mass/Vol] 1.90 mg/dL 0.20-1.00 [facility] Comment on above: For patients on eltr ombopag therapy, use of Dimension Needles TBIL is not recommended. Chloride [Moles/Vol] 109 mmol/L 98-107 [facility] Eosinophils/100 WBC (Bld) 6.5 % 0-5 [facility] Glucose [Mass/Vol] 121 mg/dL 74-106 [facility] Comment on above: Fasting Glucose resu lt from 100 to 125 mg/dL suggests IMPAIRED HOMEOSTASIS per A.D.A. criteria. Hemoglobin (Bld) [Mass/Vol] 13.8 g/dL 13.0-16.5 [facility] Monocytes/100 WBC (Bld) 10.2 % 0-10 [facility] Neutrophils (Bld) [#/Vol] 3.0 10*3/uL 2.0-7.7 [facility] Neutrophils/100 WBC (Bld) 58.1 % 47-70 [facility] Potassium [Moles/Vol] 4.1 mmol/L 3.5-5.1 [facility] Protein [Mass/Vol] 6.8 g/dL 6.4-8.2 [facility] Sodium [Moles/Vol] 135 mmol/L 136-145 [facility] WBC (Bld) [#/Vol] 5.2 10*3/uL 4.4-11.0 [facility] Determination of erythrocyte mean corpuscular volume (MCV)on 06-16-2023 MCV (RBC) [Entitic vol] 86.5 fL 80-94 [facility] Direct bilirubinon Bilirubin.direct [Mass/Vol] 0.44 mg/dL 0.00-0.30 [facility] Erythrocyte distribution wid th ratioon 06-16-2023 Erythrocyte distribution width (RBC) [Ratio] 13.2 % 11.6-14.6 [facility] Erythrocyte distribution wid th standard deviationon 06-16-2023 Erythrocyte distribution width (RBC) [Entitic vol] 41.1 fL 35.1-43.9 [facility] Hematocrit Auto (Bld) [Volum e fraction]on 06-16-2023 Hematocrit (Bld) [Volume fraction] 40.2 % 40-54 [facility] Immature granulocytes/100 WB C Auto (Bld)on 06-16-2023 Immature granulocytes/100 WBC (Bld) 0.400 % 0.0-0.9 [facility] Comment on above: IG% - Immature Granu locytes (promyelocytes, myelocytes and metamyelocytes) > 1% indicates that a LEFT SHIFT is Present. Laboratory - Chemistry and C hemistry - challengeon 06-16-2023 ALP [Catalytic activity/Vol] 76 U/L 45-117 [facility] ALT [Catalytic activity/Vol] 19 U/L 16-61 [facility] Amylase [Catalytic activity/Vol] 46 U/L 15-85 [facility] CO2 [Moles/Vol] 21.0 mmol/L 21.0-32.0 [facility] Globulin (S) [Mass/Vol] 3.0 g/dL 2.2-4.2 [facility] Magnesium [Mass/Vol] 1.7 mg/dL 1.6-2.6 [facility] Urea nitrogen/Creatinine [Mass ratio] 24.2 mg/mg 10-20 [facility] - Hematology and Cell countson 06-16-2023 MCH (RBC) [Entitic mass] 29.7 pg 27.0-32.0 [facility] MCHC (RBC) [Mass/Vol] 34.3 g/dL 32-36 [facility] Nucleated RBC/100 WBC (Bld) [Ratio] 0 % 0-5 [facility] Platelet mean volume (Bld) [Entitic vol] 9.4 fL 6.2-12.0 [facility] Platelets (Bld) [#/Vol] 169 10*3/uL 150-450 [facility] No Panel Informationon 06-16 Estimated GFR (MDRD) Amer 85 mL/min >60 [facility] Comment on above: GFR Calc Estimated GFR (MDRD) Non-Af Amer 70 mL/min >60 [facility] Comment on above: Non- GFR Calc Tacrolimus (Prograf) Level 8.6 ng/mL 2.0-20.0 [facility] Comment on above: Trough (immediately following transplant) 15.0 Trough (steady state, 2 weeks or more after transplant): 3.0 - 8.0 Performed by LC-MS/MS technology.Performed at: [facility] [place] [id number] Director: Arlyn Avila MD, Phone: [phone] RBC Auto (Bld) [#/Vol]on RBC (Bld) [#/Vol] 4.65 10*6/uL 4.6-6.2 [facility] Serum or plasma calcium ginny urement (mass/volume)on 06-16-2023 Calcium [Mass/Vol] 8.8 mg/dL 8.5-10.1 [facility] Serum or plasma creatinine m easurement (mass/volume)on 06-16-2023 Creatinine [Mass/Vol] 1.20 mg/dL 0.70-1.30 [facility] Comment on above: The validity of the calculated GFR & GFRAA in patients over 70 years has not been determined. Clinical correlation is essential. Serum or plasma urea nitroge n measurement (mass/volume)on 06-16-2023 Urea nitrogen [Mass/Vol] 29 mg/dL 7-18 [facility] Thin prep Papanicolaou smear with manual screeningon 06-16-2023 Thin prep Papanicolaou smear with manual screening 3.8 g/dL 3.2-5.0 [facility] Thin prep Papanicolaou smear with manual screening 14 U/L 15-37 [facility] Thin prep Papanicolaou smear with manual screening 5 5-15 [facility] Absolute lymphocyte counton 03-10-2023 Lymphocytes Auto (Unsp spec) [#/Vol] 1.26 10*3/uL 0.83-4.51 [facility] Basophil percentageon 2022 Basophil percentage 3.3 mg/dL 2.5-4.9 [facility] Basophils/100 WBC (Bld) 1.2 % 0-1 [facility] Bilirubin [Mass/Vol] 1.00 mg/dL 0.20-1.00 [facility] Comment on above: For patients on eltr ombopag therapy, use of Dimension Needles TBIL is not recommended. Chloride [Moles/Vol] 109 mmol/L 98-107 [facility] Eosinophils/100 WBC (Bld) 4.7 % 0-5 [facility] Glucose [Mass/Vol] 114 mg/dL 74-106 [facility] Comment on above: Fasting Glucose resu lt from 100 to 125 mg/dL suggests IMPAIRED HOMEOSTASIS per A.D.A. criteria. Neutrophils (Bld) [#/Vol] 2.4 10*3/uL 2.0-7.7 [facility] Neutrophils/100 WBC (Bld) 55.3 % 47-70 [facility] Potassium [Moles/Vol] 4.8 mmol/L 3.5-5.1 [facility] Protein [Mass/Vol] 6.8 g/dL 6.4-8.2 [facility] Sodium [Moles/Vol] 140 mmol/L 136-145 [facility] WBC (Bld) [#/Vol] 4.3 10*3/uL 4.4-11.0 [facility] Blood erythrocytes count (nu mber/volume)on 03-10-2023 RBC (Bld) [#/Vol] 4.36 10*6/uL 4.6-6.2 [facility] Blood hemoglobin measurement (mass/volume)on 03-10-2023 Hemoglobin (Bld) [Mass/Vol] 12.7 g/dL 13.0-16.5 [facility] Blood lymphocytes/100 leukoc yteson 03-10-2023 Lymphocytes/100 WBC (Bld) 29.5 % 19-41 [facility] Blood monocytes/100 leukocyt eson 03-10-2023 Monocytes/100 WBC (Bld) 9.1 % 0-10 [facility] Blood platelet mean volumeon 03-10-2023 Platelet mean volume (Bld) [Entitic vol] 9.3 fL 6.2-12.0 [facility] Determination of erythrocyte mean corpuscular volume (MCV)on 03-10-2023 MCV (RBC) [Entitic vol] 90.4 fL 80-94 [facility] Direct bilirubinon Bilirubin.direct [Mass/Vol] 0.26 mg/dL 0.00-0.30 [facility] Hematocrit Auto (Bld) [Volum e fraction]on 03-10-2023 Hematocrit (Bld) [Volume fraction] 39.4 % 40-54 [facility] - Chemistry and C hemistry - challengeon 03-10-2023 ALP [Catalytic activity/Vol] 83 U/L 45-117 [facility] ALT [Catalytic activity/Vol] 28 U/L 16-61 [facility] Amylase [Catalytic activity/Vol] 44 U/L 15-85 [facility] CO2 [Moles/Vol] 24.0 mmol/L 21.0-32.0 [facility] Globulin (S) [Mass/Vol] 3.1 g/dL 2.2-4.2 [facility] Magnesium [Mass/Vol] 2.0 mg/dL 1.6-2.6 [facility] Urea nitrogen/Creatinine [Mass ratio] 25.2 mg/mg 10-20 [facility] - Hematology and Cell countson 03-10-2023 Erythrocyte distribution width (RBC) [Entitic vol] 40.9 fL 35.1-43.9 [facility] Erythrocyte distribution width (RBC) [Ratio] 12.4 % 11.6-14.6 [facility] Immature granulocytes/100 WBC (Bld) 0.200 % 0.0-0.9 [facility] Comment on above: IG% - Immature Granu locytes (promyelocytes, myelocytes and metamyelocytes) > 1% indicates that a LEFT SHIFT is Present. MCH (RBC) [Entitic mass] 29.1 pg 27.0-32.0 [facility] Nucleated RBC/100 WBC (Bld) [Ratio] 0 % 0-5 [facility] MCHC Auto (RBC) [Mass/Vol]on 03-10-2023 MCHC (RBC) [Mass/Vol] 32.2 g/dL 32-36 [facility] No Panel Informationon 03-10 Estimated GFR (MDRD) Amer 77 mL/min >60 [facility] Comment on above: GFR Calc Estimated GFR (MDRD) Non-Af Amer 63 mL/min >60 [facility] Comment on above: Non- GFR Calc Tacrolimus (Prograf) Level 10.4 ng/mL 2.0-20.0 [facility] Comment on above: Trough (immediately following transplant) 15.0 Trough (steady state, 2 weeks or more after transplant): 3.0 - 8.0 Performed by LC-MS/MS technology.Performed at: DNS:[address] [id number] Director: Arlyn Avila MD, Phone: [phone] Platelets bldon 03-10-2023 Platelets (Bld) [#/Vol] 151 10*3/uL 150-450 [facility] Serum or plasma albumin ginny urement (mass/volume)on 03-10-2023 Albumin [Mass/Vol] 3.7 g/dL 3.2-5.0 [facility] Serum or plasma calcium ginny urement (mass/volume)on 03-10-2023 Calcium [Mass/Vol] 8.6 mg/dL 8.5-10.1 [facility] Serum or plasma creatinine m easurement (mass/volume)on 03-10-2023 Creatinine [Mass/Vol] 1.31 mg/dL 0.70-1.30 [facility] Comment on above: The validity of the calculated GFR & GFRAA in patients over 70 years has not been determined. Clinical correlation is essential. Serum or plasma urea nitroge n measurement (mass/volume)on 03-10-2023 Urea nitrogen [Mass/Vol] 33 mg/dL 7-18 [facility] Thin prep Papanicolaou smear with manual screeningon 03-10-2023 Thin prep Papanicolaou smear with manual screening 18 U/L 15-37 [facility] Thin prep Papanicolaou smear with manual screening 7 5-15 [facility] Absolute lymphocyte counton 09-18-2022 Lymphocytes Auto (Unsp spec) [#/Vol] 1.49 10*3/uL 0.83-4.51 [facility] Basophil percentageon 2022 Basophil percentage 2.5 mg/dL 2.5-4.9 [facility] Basophils/100 WBC (Bld) 1.0 % 0-1 [facility] Bilirubin [Mass/Vol] 0.90 mg/dL 0.20-1.00 [facility] Comment on above: For patients on eltr ombopag therapy, use of Dimension Needles TBIL is not recommended. Chloride [Moles/Vol] 111 mmol/L 98-107 [facility] Eosinophils/100 WBC (Bld) 4.4 % 0-5 [facility] Glucose [Mass/Vol] 116 mg/dL 74-106 [facility] Comment on above: Fasting Glucose resu lt from 100 to 125 mg/dL suggests IMPAIRED HOMEOSTASIS per A.D.A. criteria. Neutrophils (Bld) [#/Vol] 2.8 10*3/uL 2.0-7.7 [facility] Neutrophils/100 WBC (Bld) 54.9 % 47-70 [facility] Potassium [Moles/Vol] 4.4 mmol/L 3.5-5.1 [facility] Protein [Mass/Vol] 7.1 g/dL 6.4-8.2 [facility] Sodium [Moles/Vol] 139 mmol/L 136-145 [facility] WBC (Bld) [#/Vol] 5.0 10*3/uL 4.4-11.0 [facility] Blood erythrocytes count (nu mber/volume)on 09-18-2022 RBC (Bld) [#/Vol] 4.65 10*6/uL 4.6-6.2 [facility] Blood hemoglobin measurement (mass/volume)on 09-18-2022 Hemoglobin (Bld) [Mass/Vol] 13.9 g/dL 13.0-16.5 [facility] Blood lymphocytes/100 leukoc yteson 09-18-2022 Lymphocytes/100 WBC (Bld) 29.6 % 19-41 [facility] Blood monocytes/100 leukocyt eson 09-18-2022 Monocytes/100 WBC (Bld) 9.7 % 0-10 [facility] Blood platelet mean volumeon 09-18-2022 Platelet mean volume (Bld) [Entitic vol] 9.5 fL 6.2-12.0 [facility] Determination of erythrocyte mean corpuscular volume (MCV)on 09-18-2022 MCV (RBC) [Entitic vol] 89.0 fL 80-94 [facility] Direct bilirubinon Bilirubin.direct [Mass/Vol] 0.25 mg/dL 0.00-0.30 [facility] Hematocrit Auto (Bld) [Volum e fraction]on 09-18-2022 Hematocrit (Bld) [Volume fraction] 41.4 % 40-54 [facility] INR in Blood by Coagulation assayon 09-18-2022 INR Coag (Bld) [Relative time] 1.1 {INR} [facility] - Chemistry and C hemistry - challengeon 09-18-2022 ALP [Catalytic activity/Vol] 99 U/L 45-117 [facility] ALT [Catalytic activity/Vol] 22 U/L 16-61 [facility] Amylase [Catalytic activity/Vol] 85 U/L 15-85 [facility] CO2 [Moles/Vol] 20.0 mmol/L 21.0-32.0 [facility] Globulin (S) [Mass/Vol] 3.5 g/dL 2.2-4.2 [facility] Magnesium [Mass/Vol] 1.8 mg/dL 1.6-2.6 [facility] Urea nitrogen/Creatinine [Mass ratio] 18.3 mg/mg 10-20 [facility] - Coagulationon 0 09-18-2022 PT Coag (PPP) [Time] 14.7 s 11.7-14.9 [facility] - Hematology and Cell countson 09-18-2022 Erythrocyte distribution width (RBC) [Entitic vol] 43.6 fL 35.1-43.9 [facility] Erythrocyte distribution width (RBC) [Ratio] 13.6 % 11.6-14.6 [facility] Immature granulocytes/100 WBC (Bld) 0.400 % 0.0-0.9 [facility] Comment on above: IG% - Immature Granu locytes (promyelocytes, myelocytes and metamyelocytes) > 1% indicates that a LEFT SHIFT is Present. MCH (RBC) [Entitic mass] 29.9 pg 27.0-32.0 [facility] Nucleated RBC/100 WBC (Bld) [Ratio] 0 % 0-5 [facility] MCHC Auto (RBC) [Mass/Vol]on 09-18-2022 MCHC (RBC) [Mass/Vol] 33.6 g/dL 32-36 [facility] No Panel Informationon 09-18 Estimated GFR (MDRD) Amer 100 mL/min >60 [facility] Comment on above: GFR Calc Estimated GFR (MDRD) Non-Af Amer 83 mL/min >60 [facility] Comment on above: Non- GFR Calc Tacrolimus (Prograf) Level 9.8 ng/mL 2.0-20.0 [facility] Comment on above: Trough (immediately following transplant) 15.0 Trough (steady state, 2 weeks or more after transplant): 3.0 - 8.0 Performed by LC-MS/MS technology.Performed at: DNS:[address] [id number] Director: Arlyn Avila MD, Phone: [phone] Platelets bldon 09-18-2022 Platelets (Bld) [#/Vol] 184 10*3/uL 150-450 [facility] Serum or plasma albumin ginny urement (mass/volume)on 09-18-2022 Albumin [Mass/Vol] 3.6 g/dL 3.2-5.0 [facility] Serum or plasma calcium ginny urement (mass/volume)on 09-18-2022 Calcium [Mass/Vol] 8.6 mg/dL 8.5-10.1 [facility] Serum or plasma creatinine m easurement (mass/volume)on 09-18-2022 Creatinine [Mass/Vol] 1.04 mg/dL 0.70-1.30 [facility] Comment on above: The validity of the calculated GFR & GFRAA in patients over 70 years has not been determined. Clinical correlation is essential. Serum or plasma urea nitroge n measurement (mass/volume)on 09-18-2022 Urea nitrogen [Mass/Vol] 19 mg/dL 7-18 [facility] Thin prep Papanicolaou smear with manual screeningon 09-18-2022 Thin prep Papanicolaou smear with manual screening 19 U/L 15-37 [facility] Thin prep Papanicolaou smear with manual screening 8 5-15 [facility] Absolute lymphocyte counton 07-31-2022 Lymphocytes Auto (Unsp spec) [#/Vol] 1.31 10*3/uL 0.83-4.51 [facility] Basophil percentageon 2022 Basophil percentage 2.4 mg/dL 2.5-4.9 [facility] Basophils/100 WBC (Bld) 0.8 % 0-1 [facility] Bilirubin [Mass/Vol] 0.80 mg/dL 0.20-1.00 [facility] Comment on above: For patients on eltr ombopag therapy, use of Dimension Needles TBIL is not recommended. Chloride [Moles/Vol] 108 mmol/L 98-107 [facility] Eosinophils/100 WBC (Bld) 4.3 % 0-5 [facility] Glucose [Mass/Vol] 105 mg/dL 74-106 [facility] Comment on above: Fasting Glucose resu lt from 100 to 125 mg/dL suggests IMPAIRED HOMEOSTASIS per A.D.A. criteria. Neutrophils (Bld) [#/Vol] 3.0 10*3/uL 2.0-7.7 [facility] Neutrophils/100 WBC (Bld) 58.3 % 47-70 [facility] Potassium [Moles/Vol] 4.3 mmol/L 3.5-5.1 [facility] Protein [Mass/Vol] 6.6 g/dL 6.4-8.2 [facility] Sodium [Moles/Vol] 137 mmol/L 136-145 [facility] WBC (Bld) [#/Vol] 5.1 10*3/uL 4.4-11.0 [facility] Blood erythrocytes count (nu mber/volume)on 07-31-2022 RBC (Bld) [#/Vol] 4.35 10*6/uL 4.6-6.2 [facility] Blood hemoglobin measurement (mass/volume)on 07-31-2022 Hemoglobin (Bld) [Mass/Vol] 12.9 g/dL 13.0-16.5 [facility] Blood lymphocytes/100 leukoc yteson 07-31-2022 Lymphocytes/100 WBC (Bld) 25.6 % 19-41 [facility] Blood monocytes/100 leukocyt eson 07-31-2022 Monocytes/100 WBC (Bld) 10.4 % 0-10 [facility] Blood platelet mean volumeon 07-31-2022 Platelet mean volume (Bld) [Entitic vol] 9.4 fL 6.2-12.0 [facility] Determination of erythrocyte mean corpuscular volume (MCV)on 07-31-2022 MCV (RBC) [Entitic vol] 88.7 fL 80-94 [facility] Direct bilirubinon Bilirubin.direct [Mass/Vol] 0.25 mg/dL 0.00-0.30 [facility] Hematocrit Auto (Bld) [Volum e fraction]on 07-31-2022 Hematocrit (Bld) [Volume fraction] 38.6 % 40-54 [facility] INR in Blood by Coagulation assayon 07-31-2022 INR Coag (Bld) [Relative time] 1.2 {INR} [facility] - Chemistry and C hemistry - challengeon 07-31-2022 ALP [Catalytic activity/Vol] 102 U/L 45-117 [facility] ALT [Catalytic activity/Vol] 38 U/L 16-61 [facility] Amylase [Catalytic activity/Vol] 103 U/L 15-85 [facility] CO2 [Moles/Vol] 21.0 mmol/L 21.0-32.0 [facility] Globulin (S) [Mass/Vol] 3.2 g/dL 2.2-4.2 [facility] Magnesium [Mass/Vol] 1.6 mg/dL 1.6-2.6 [facility] Urea nitrogen/Creatinine [Mass ratio] 18.3 mg/mg 10-20 [facility] - Coagulationon 0 07-31-2022 PT Coag (PPP) [Time] 15.1 s 11.7-14.9 [facility] - Hematology and Cell countson 07-31-2022 Erythrocyte distribution width (RBC) [Entitic vol] 41.3 fL 35.1-43.9 [facility] Erythrocyte distribution width (RBC) [Ratio] 12.6 % 11.6-14.6 [facility] Immature granulocytes/100 WBC (Bld) 0.600 % 0.0-0.9 [facility] Comment on above: IG% - Immature Granu locytes (promyelocytes, myelocytes and metamyelocytes) > 1% indicates that a LEFT SHIFT is Present. MCH (RBC) [Entitic mass] 29.7 pg 27.0-32.0 [facility] Nucleated RBC/100 WBC (Bld) [Ratio] 0 % 0-5 [facility] MCHC Auto (RBC) [Mass/Vol]on 07-31-2022 MCHC (RBC) [Mass/Vol] 33.4 g/dL 32-36 [facility] No Panel Informationon 07-31 Estimated GFR (MDRD) Amer 90 mL/min >60 [facility] Comment on above: GFR Calc Estimated GFR (MDRD) Non-Af Amer 74 mL/min >60 [facility] Comment on above: Non- GFR Calc Platelets bldon 07-31-2022 Platelets (Bld) [#/Vol] 171 10*3/uL 150-450 [facility] Serum or plasma albumin ginny urement (mass/volume)on 07-31-2022 Albumin [Mass/Vol] 3.4 g/dL 3.2-5.0 [facility] Serum or plasma calcium ginny urement (mass/volume)on 07-31-2022 Calcium [Mass/Vol] 8.6 mg/dL 8.5-10.1 [facility] Serum or plasma creatinine m easurement (mass/volume)on 07-31-2022 Creatinine [Mass/Vol] 1.15 mg/dL 0.70-1.30 [facility] Comment on above: The validity of the calculated GFR & GFRAA in patients over 70 years has not been determined. Clinical correlation is essential. Serum or plasma urea nitroge n measurement (mass/volume)on 07-31-2022 Urea nitrogen [Mass/Vol] 21 mg/dL 7-18 [facility] Thin prep Papanicolaou smear with manual screeningon 07-31-2022 Thin prep Papanicolaou smear with manual screening 29 U/L 15-37 [facility] Thin prep Papanicolaou smear with manual screening 8 5-15 [facility] Absolute lymphocyte counton 07-17-2022 Lymphocytes Auto (Unsp spec) [#/Vol] 0.98 10*3/uL 0.83-4.51 [facility] Basophil percentageon 2022 Basophils/100 WBC (Bld) 0.9 % 0-1 [facility] Bilirubin [Mass/Vol] 0.90 mg/dL 0.20-1.00 [facility] Comment on above: For patients on eltr ombopag therapy, use of Dimension Needles TBIL is not recommended. Chloride [Moles/Vol] 111 mmol/L 98-107 [facility] Eosinophils/100 WBC (Bld) 6.8 % 0-5 [facility] Glucose [Mass/Vol] 119 mg/dL 74-106 [facility] Comment on above: Fasting Glucose resu lt from 100 to 125 mg/dL suggests IMPAIRED HOMEOSTASIS per A.D.A. criteria. Neutrophils (Bld) [#/Vol] 2.6 10*3/uL 2.0-7.7 [facility] Neutrophils/100 WBC (Bld) 59.4 % 47-70 [facility] Potassium [Moles/Vol] 4.1 mmol/L 3.5-5.1 [facility] Protein [Mass/Vol] 6.7 g/dL 6.4-8.2 [facility] Sodium [Moles/Vol] 140 mmol/L 136-145 [facility] WBC (Bld) [#/Vol] 4.4 10*3/uL 4.4-11.0 [facility] Blood erythrocytes count (nu mber/volume)on 07-17-2022 RBC (Bld) [#/Vol] 4.51 10*6/uL 4.6-6.2 [facility] Blood hemoglobin measurement (mass/volume)on 07-17-2022 Hemoglobin (Bld) [Mass/Vol] 13.6 g/dL 13.0-16.5 [facility] Blood lymphocytes/100 leukoc yteson 07-17-2022 Lymphocytes/100 WBC (Bld) 22.2 % 19-41 [facility] Blood monocytes/100 leukocyt eson 07-17-2022 Monocytes/100 WBC (Bld) 10.2 % 0-10 [facility] Blood platelet mean volumeon 07-17-2022 Platelet mean volume (Bld) [Entitic vol] 9.1 fL 6.2-12.0 [facility] Determination of erythrocyte mean corpuscular volume (MCV)on 07-17-2022 MCV (RBC) [Entitic vol] 89.4 fL 80-94 [facility] Direct bilirubinon 3 Bilirubin.direct [Mass/Vol] 0.29 mg/dL 0.00-0.30 [facility] Hematocrit Auto (Bld) [Volum e fraction]on 07-17-2022 Hematocrit (Bld) [Volume fraction] 40.3 % 40-54 [facility] - Chemistry and C hemistry - challengeon 07-17-2022 ALP [Catalytic activity/Vol] 105 U/L 45-117 [facility] ALT [Catalytic activity/Vol] 50 U/L 16-61 [facility] Amylase [Catalytic activity/Vol] 97 U/L 15-85 [facility] CO2 [Moles/Vol] 23.0 mmol/L 21.0-32.0 [facility] Globulin (S) [Mass/Vol] 3.3 g/dL 2.2-4.2 [facility] Urea nitrogen/Creatinine [Mass ratio] 21.0 mg/mg 10-20 [facility] - Hematology and Cell countson 07-17-2022 Erythrocyte distribution width (RBC) [Entitic vol] 41.9 fL 35.1-43.9 [facility] Erythrocyte distribution width (RBC) [Ratio] 12.7 % 11.6-14.6 [facility] Immature granulocytes/100 WBC (Bld) 0.500 % 0.0-0.9 [facility] Comment on above: IG% - Immature Granu locytes (promyelocytes, myelocytes and metamyelocytes) > 1% indicates that a LEFT SHIFT is Present. MCH (RBC) [Entitic mass] 30.2 pg 27.0-32.0 [facility] Nucleated RBC/100 WBC (Bld) [Ratio] 0 % 0-5 [facility] MCHC Auto (RBC) [Mass/Vol]on 07-17-2022 MCHC (RBC) [Mass/Vol] 33.7 g/dL 32-36 [facility] No Panel Informationon 07-17 Estimated GFR (MDRD) Amer 99 mL/min >60 [facility] Comment on above: GFR Calc Estimated GFR (MDRD) Non-Af Amer 82 mL/min >60 [facility] Comment on above: Non- GFR Calc Miscellaneous Test See comment [facility] Comment on above: TEST RESULT LIMITSHB V Real-Time PCR, Quant HBV IU/mL HBV DNA not detected IU/mL log10 HBV IU/mL Unable to calculate result since non-numeric result obtained for component test.Test Information: The reportable range for this assay is 10 IU/mL to 1 billion IU/mL. TESTING PERFORMED AT [facility]. ORIGINAL REPORT ON FILE IN LAB CONTAINS ADDITIONAL TEST SITE INFORMATION. Tacrolimus (Prograf) Level 5.7 ng/mL 2.0-20.0 [facility] Comment on above: Trough (immediately following transplant) 15.0 Trough (steady state, 2 weeks or more after transplant): 3.0 - 8.0 Performed by LC-MS/MS technology.Performed at: [address] [id number] Director: Arlyn Avila MD, Phone: [phone] Platelets bldon 07-17-2022 Platelets (Bld) [#/Vol] 159 10*3/uL 150-450 [facility] Serum or plasma albumin ginny urement (mass/volume)on 07-17-2022 Albumin [Mass/Vol] 3.4 g/dL 3.2-5.0 [facility] Serum or plasma calcium ginny urement (mass/volume)on 07-17-2022 Calcium [Mass/Vol] 8.8 mg/dL 8.5-10.1 [facility] Serum or plasma creatinine m easurement (mass/volume)on 07-17-2022 Creatinine [Mass/Vol] 1.05 mg/dL 0.70-1.30 [facility] Comment on above: The validity of the calculated GFR & GFRAA in patients over 70 years has not been determined. Clinical correlation is essential. Serum or plasma urea nitroge n measurement (mass/volume)on 07-17-2022 Urea nitrogen [Mass/Vol] 22 mg/dL 7-18 [facility] Thin prep Papanicolaou smear with manual screeningon 07-17-2022 Thin prep Papanicolaou smear with manual screening 36 U/L 15-37 [facility] Thin prep Papanicolaou smear with manual screening 6 5-15 [facility] Absolute lymphocyte counton 06-20-2022 Lymphocytes Auto (Unsp spec) [#/Vol] 1.25 10*3/uL 0.83-4.51 [facility] Basophil percentageon 2022 Basophil percentage 3.7 mg/dL 2.5-4.9 [facility] Basophils/100 WBC (Bld) 0.6 % 0-1 [facility] Bilirubin [Mass/Vol] 0.70 mg/dL 0.20-1.00 [facility] Comment on above: For patients on eltr ombopag therapy, use of Dimension Needles TBIL is not recommended. Chloride [Moles/Vol] 108 mmol/L 98-107 [facility] Eosinophils/100 WBC (Bld) 6.9 % 0-5 [facility] Glucose [Mass/Vol] 90 mg/dL 74-106 [facility] Neutrophils (Bld) [#/Vol] 2.8 10*3/uL 2.0-7.7 [facility] Neutrophils/100 WBC (Bld) 57.8 % 47-70 [facility] Potassium [Moles/Vol] 4.2 mmol/L 3.5-5.1 [facility] Protein [Mass/Vol] 7.0 g/dL 6.4-8.2 [facility] Sodium [Moles/Vol] 139 mmol/L 136-145 [facility] WBC (Bld) [#/Vol] 4.9 10*3/uL 4.4-11.0 [facility] Blood erythrocytes count (nu mber/volume)on 06-20-2022 RBC (Bld) [#/Vol] 4.35 10*6/uL 4.6-6.2 [facility] Blood hemoglobin measurement (mass/volume)on 06-20-2022 Hemoglobin (Bld) [Mass/Vol] 13.3 g/dL 13.0-16.5 [facility] Blood lymphocytes/100 leukoc yteson 06-20-2022 Lymphocytes/100 WBC (Bld) 25.5 % 19-41 [facility] Blood monocytes/100 leukocyt eson 06-20-2022 Monocytes/100 WBC (Bld) 8.8 % 0-10 [facility] Blood platelet mean volumeon 06-20-2022 Platelet mean volume (Bld) [Entitic vol] 9.2 fL 6.2-12.0 [facility] Determination of erythrocyte mean corpuscular volume (MCV)on 06-20-2022 MCV (RBC) [Entitic vol] 91.0 fL 80-94 [facility] Direct bilirubinon Bilirubin.direct [Mass/Vol] 0.20 mg/dL 0.00-0.30 [facility] Hematocrit Auto (Bld) [Volum e fraction]on 06-20-2022 Hematocrit (Bld) [Volume fraction] 39.6 % 40-54 [facility] INR in Blood by Coagulation assayon 06-20-2022 INR Coag (Bld) [Relative time] 1.1 {INR} [facility] Laboratory - Chemistry and C hemistry - challengeon 06-20-2022 ALP [Catalytic activity/Vol] 117 U/L 45-117 [facility] ALT [Catalytic activity/Vol] 36 U/L 16-61 [facility] Amylase [Catalytic activity/Vol] 89 U/L 15-85 [facility] CO2 [Moles/Vol] 24.0 mmol/L 21.0-32.0 [facility] Globulin (S) [Mass/Vol] 3.5 g/dL 2.2-4.2 [facility] Magnesium [Mass/Vol] 1.9 mg/dL 1.6-2.6 [facility] Urea nitrogen/Creatinine [Mass ratio] 18.2 mg/mg 10-20 [facility] Laboratory - Coagulationon 0 06-20-2022 PT Coag (PPP) [Time] 14.0 s 11.7-14.9 [facility] Laboratory - Hematology and Cell countson 06-20-2022 Erythrocyte distribution width (RBC) [Entitic vol] 41.1 fL 35.1-43.9 [facility] Erythrocyte distribution width (RBC) [Ratio] 12.4 % 11.6-14.6 [facility] Immature granulocytes/100 WBC (Bld) 0.400 % 0.0-0.9 [facility] Comment on above: IG% - Immature Granu locytes (promyelocytes, myelocytes and metamyelocytes) > 1% indicates that a LEFT SHIFT is Present. MCH (RBC) [Entitic mass] 30.6 pg 27.0-32.0 [facility] Nucleated RBC/100 WBC (Bld) [Ratio] 0 % 0-5 [facility] MCHC Auto (RBC) [Mass/Vol]on 06-20-2022 MCHC (RBC) [Mass/Vol] 33.6 g/dL 32-36 [facility] No Panel Informationon 06-20 Estimated GFR (MDRD) Amer 94 mL/min >60 [facility] Comment on above: GFR Calc Estimated GFR (MDRD) Non-Af Amer 78 mL/min >60 [facility] Comment on above: Non- GFR Calc Tacrolimus (Prograf) Level 6.8 ng/mL 2.0-20.0 [facility] Comment on above: Trough (immediately following transplant) 15.0 Trough (steady state, 2 weeks or more after transplant): 3.0 - 8.0 Performed by LC-MS/MS technology.Performed at: [address] [id number] Director: Arlyn Avila MD, Phone: [phone] Platelets bldon 06-20-2022 Platelets (Bld) [#/Vol] 178 10*3/uL 150-450 [facility] Serum or plasma albumin ginny urement (mass/volume)on 06-20-2022 Albumin [Mass/Vol] 3.5 g/dL 3.2-5.0 [facility] Serum or plasma calcium ginny urement (mass/volume)on 06-20-2022 Calcium [Mass/Vol] 9.2 mg/dL 8.5-10.1 [facility] Serum or plasma creatinine m easurement (mass/volume)on 06-20-2022 Creatinine [Mass/Vol] 1.10 mg/dL 0.70-1.30 [facility] Comment on above: The validity of the calculated GFR & GFRAA in patients over 70 years has not been determined. Clinical correlation is essential. Serum or plasma urea nitroge n measurement (mass/volume)on 06-20-2022 Urea nitrogen [Mass/Vol] 20 mg/dL 7-18 [facility] Thin prep Papanicolaou smear with manual screeningon 06-20-2022 Thin prep Papanicolaou smear with manual screening 26 U/L 15-37 [facility] Thin prep Papanicolaou smear with manual screening 7 5-15 [facility] Absolute lymphocyte counton 05-30-2022 Lymphocytes Auto (Unsp spec) [#/Vol] 1.56 10*3/uL 0.83-4.51 [facility] Basophil percentageon 2022 Basophil percentage 2.8 mg/dL 2.5-4.9 [facility] Basophils/100 WBC (Bld) 0.7 % 0-1 [facility] Bilirubin [Mass/Vol] 1.20 mg/dL 0.20-1.00 [facility] Comment on above: For patients on eltr ombopag therapy, use of Dimension Needles TBIL is not recommended. Chloride [Moles/Vol] 109 mmol/L 98-107 [facility] Eosinophils/100 WBC (Bld) 4.7 % 0-5 [facility] Glucose [Mass/Vol] 105 mg/dL 74-106 [facility] Comment on above: Fasting Glucose resu lt from 100 to 125 mg/dL suggests IMPAIRED HOMEOSTASIS per A.D.A. criteria. Neutrophils (Bld) [#/Vol] 1.9 10*3/uL 2.0-7.7 [facility] Neutrophils/100 WBC (Bld) 46.9 % 47-70 [facility] Potassium [Moles/Vol] 4.2 mmol/L 3.5-5.1 [facility] Protein [Mass/Vol] 7.0 g/dL 6.4-8.2 [facility] Sodium [Moles/Vol] 141 mmol/L 136-145 [facility] WBC (Bld) [#/Vol] 4.1 10*3/uL 4.4-11.0 [facility] Blood erythrocytes count (nu mber/volume)on 05-30-2022 RBC (Bld) [#/Vol] 4.27 10*6/uL 4.6-6.2 [facility] Blood hemoglobin measurement (mass/volume)on 05-30-2022 Hemoglobin (Bld) [Mass/Vol] 13.0 g/dL 13.0-16.5 [facility] Blood lymphocytes/100 leukoc yteson 05-30-2022 Lymphocytes/100 WBC (Bld) 38.2 % 19-41 [facility] Blood monocytes/100 leukocyt eson 05-30-2022 Monocytes/100 WBC (Bld) 9.3 % 0-10 [facility] Blood platelet mean volumeon 05-30-2022 Platelet mean volume (Bld) [Entitic vol] 9.5 fL 6.2-12.0 [facility] Determination of erythrocyte mean corpuscular volume (MCV)on 05-30-2022 MCV (RBC) [Entitic vol] 91.3 fL 80-94 [facility] Direct bilirubinon 3 Bilirubin.direct [Mass/Vol] 0.30 mg/dL 0.00-0.30 [facility] Hematocrit Auto (Bld) [Volum e fraction]on 05-30-2022 Hematocrit (Bld) [Volume fraction] 39.0 % 40-54 [facility] INR in Blood by Coagulation assayon 05-30-2022 INR Coag (Bld) [Relative time] 1.2 {INR} [facility] Laboratory - Chemistry and C hemistry - challengeon 05-30-2022 ALP [Catalytic activity/Vol] 142 U/L 45-117 [facility] ALT [Catalytic activity/Vol] 58 U/L 16-61 [facility] Amylase [Catalytic activity/Vol] 107 U/L 15-85 [facility] CO2 [Moles/Vol] 24.0 mmol/L 21.0-32.0 [facility] Globulin (S) [Mass/Vol] 3.4 g/dL 2.2-4.2 [facility] Magnesium [Mass/Vol] 2.1 mg/dL 1.6-2.6 [facility] Urea nitrogen/Creatinine [Mass ratio] 16.1 mg/mg 10-20 [facility] Laboratory - Coagulationon 0 05-30-2022 PT Coag (PPP) [Time] 15.0 s 11.7-14.9 [facility] - Hematology and Cell countson 05-30-2022 Erythrocyte distribution width (RBC) [Entitic vol] 43.0 fL 35.1-43.9 [facility] Erythrocyte distribution width (RBC) [Ratio] 13.0 % 11.6-14.6 [facility] Immature granulocytes/100 WBC (Bld) 0.200 % 0.0-0.9 [facility] Comment on above: IG% - Immature Granu locytes (promyelocytes, myelocytes and metamyelocytes) > 1% indicates that a LEFT SHIFT is Present. MCH (RBC) [Entitic mass] 30.4 pg 27.0-32.0 [facility] Nucleated RBC/100 WBC (Bld) [Ratio] 0 % 0-5 [facility] MCHC Auto (RBC) [Mass/Vol]on 05-30-2022 MCHC (RBC) [Mass/Vol] 33.3 g/dL 32-36 [facility] No Panel Informationon 05-30 Estimated GFR (MDRD) Amer 106 mL/min >60 [facility] Comment on above: GFR Calc Estimated GFR (MDRD) Non-Af Amer 88 mL/min >60 [facility] Comment on above: Non- GFR Calc Tacrolimus (Prograf) Level 6.5 ng/mL 2.0-20.0 [facility] Comment on above: Trough (immediately following transplant) 15.0 Trough (steady state, 2 weeks or more after transplant): 3.0 - 8.0 Performed by LC-MS/MS technology.Performed at: [address] [id number] Director: Arlyn Avila MD, Phone: [phone] Platelets bldon 05-30-2022 Platelets (Bld) [#/Vol] 175 10*3/uL 150-450 [facility] Serum or plasma albumin ginny urement (mass/volume)on 05-30-2022 Albumin [Mass/Vol] 3.6 g/dL 3.2-5.0 [facility] Serum or plasma calcium ginny urement (mass/volume)on 05-30-2022 Calcium [Mass/Vol] 8.9 mg/dL 8.5-10.1 [facility] Serum or plasma creatinine m easurement (mass/volume)on 05-30-2022 Creatinine [Mass/Vol] 0.99 mg/dL 0.70-1.30 [facility] Comment on above: The validity of the calculated GFR & GFRAA in patients over 70 years has not been determined. Clinical correlation is essential. Serum or plasma urea nitroge n measurement (mass/volume)on 05-30-2022 Urea nitrogen [Mass/Vol] 16 mg/dL 7-18 [facility] Thin prep Papanicolaou smear with manual screeningon 05-30-2022 Thin prep Papanicolaou smear with manual screening 41 U/L 15-37 [facility] Thin prep Papanicolaou smear with manual screening 8 5-15 [facility] Differential,Body Fluidson 0 05-12-2021 Other Cells 3 % Normal [facility] Comment on above: Result Comment: Reac tive mesothelial cells and acute inflammation present. No malignant cells identified Chris Junior DO. Revised: Comment was added, verified by TDF at 14:30 on 05/02/21 Performed By: #### D IFBF, AMYM3, FLDCC, ALBM3, LDMS3, GLMS3 #### [facility] [address] [place] [address] Comp Panel with Mg Reflexon 05-08-2021 Bilirubin [Mass/Vol] 27.5 mg/dL High 0.2-1.3 [facility] Comment on above: Performed By: #### C /BLD #### [facility] [address] [place] [address] ALT [Catalytic activity/Vol] 48 U/L Normal 0-49 [facility] Comment on above: Result Comment: The ALT test is performed by an updated assay method. Please note that the reference intervals have been changed and are now sex specific. Performed By: #### C /BLD #### [facility] [address] [place], [place] Calcium [Mass/Vol] 8.0 mg/dL Low 8.4-10.4 [facility] Comment on above: Performed By: #### C /BLD #### [facility] [address] [place], [place] Glucose [Mass/Vol] 97 mg/dL Normal 70-100 [facility] Comment on above: Performed By: #### C /BLD #### [facility] [address] [place], [place] ALP [Catalytic activity/Vol] 307 U/L High 38-126 [facility] Comment on above: Performed By: #### C /BLD #### [facility] [address] [place], [place] Anion gap [Moles/Vol] 9 mmol/L Normal 3-13 [facility] Comment on above: Performed By: #### C /BLD #### [facility] [address] [place], [place] AST [Catalytic activity/Vol] 117 U/L High 15-46 [facility] Comment on above: Performed By: #### C /BLD #### [facility] [address] [place], [place] CO2 [Moles/Vol] 23 mmol/L Normal 22-30 [facility] Comment on above: Performed By: #### C /BLD #### [facility] [address] [place], [place] Creatinine [Mass/Vol] 0.80 mg/dL Normal 0.52-1.25 [facility] Comment on above: Performed By: #### C /BLD #### [facility] [address] [place], [place] eGFR OTHER > 90.0 Normal >60 [facility] Comment on above: Result Comment: KDIG [...] secretion. Performed By: #### C /BLD #### [place] [address] [place], [place] GFR/1.73 sq M.predicted among blacks MDRD (S/P/Bld) [Vol rate/Area] mL/min/{1.73_m2} Normal >60 [facility] Comment on above: Performed By: #### C /BLD #### [place] [place] [address] [place], [place] Protein [Mass/Vol] 6.3 g/dL Normal 6.3-8.2 [facility] Comment on above: Performed By: #### C /BLD #### [address] Urea nitrogen [Mass/Vol] 20 mg/dL High 7-17 [facility] Comment on above: Performed By: #### C /BLD #### [place] [address] [address] [place], [place] Potassium [Moles/Vol] 3.6 mmol/L Normal 3.5-5.1 [facility] Comment on above: Performed By: #### C /BLD #### [address] Sodium [Moles/Vol] 130 mmol/L Low 135-145 [facility] Comment on above: Performed By: #### C /BLD #### [address] Albumin [Mass/Vol] 2.4 g/dL Low 3.5-5.0 [facility] Comment on above: Performed By: #### C /BLD #### [place] [address] [address] [place], [place] Chloride [Moles/Vol] 97 mmol/L Low 98-107 [facility] Comment on above: Performed By: #### C /BLD #### [address] [address] [address] [place], [place] Hemogram w/ Autodiffon 05-08 Erythrocyte distribution width (RBC) [Ratio] 16.0 % High 11.5-14.5 [facility] Comment on above: Performed By: #### C /BLD #### [place] [address] [address] [place], [place] Hematocrit (Bld) [Volume fraction] 31.4 % Low 40.0-52.0 [facility] Comment on above: Performed By: #### C /BLD #### [place] [address] [address] [place], [place] Hemoglobin (Bld) [Mass/Vol] 10.5 g/dL Low 13.0-18.0 [facility] Comment on above: Performed By: #### C /BLD #### [place] [address] [address] [place], [place] MCH (RBC) [Entitic mass] 38.9 pg High 26.0-34.0 [facility] Comment on above: Performed By: #### C /BLD #### [place] [address] [address] [place], [place] MCHC 33.5 % Normal 32.0-36.0 [facility] Comment on above: Performed By: #### C /BLD #### [address] MCV (RBC) [Entitic vol] 116.3 fL High 80.0-98.0 [facility] Comment on above: Performed By: #### C /BLD #### [place] [address] [address] [place], [place] Platelet mean volume (Bld) [Entitic vol] 8.1 fL Normal 7.4-10.4 [facility] Comment on above: Performed By: #### C /BLD #### [place] [address] [address] [place], [place] Platelets (Bld) [#/Vol] 98 10*3/uL Low 140-440 [facility] Comment on above: Performed By: #### C /BLD #### [place] [address] [address] [place], [place] RBC (Bld) [#/Vol] 2.70 10*6/uL Low 4.40-5.90 [facility] Comment on above: Performed By: #### C /BLD #### [place] [address] [place], [place] WBC (Bld) [#/Vol] 15.1 10*3/uL High 3.6-10.7 [facility] Comment on above: Performed By: #### C /BLD #### [address] [address] [address] [place], [place] Manual Diffon 05-08-2021 Abs Baso Cnt 0.0 10*3/uL Normal 0.0-0.2 [facility] Comment on above: Performed By: #### C /BLD #### [address] Abs Eosin Cnt 0.0 10*3/uL Normal 0.0-0.5 [facility] Comment on above: Performed By: #### C /BLD #### [address] [address] [address] [place], [place] Abs Lymph Cnt 0.3 10*3/uL Low 1.1-4.5 [facility] Comment on above: Performed By: #### C /BLD #### [address] Abs Monocyte Cnt 1.5 10*3/uL High 0.2-1.1 [facility] Comment on above: Performed By: #### C /BLD #### [place] [address] [place], [place] Abs Neutrophile Cnt 13.3 10*3/uL High 2.2-8.2 [facility] Comment on above: Performed By: #### C /BLD #### [facility] [address] [place], [place] Anisocytosis Moderate Normal [facility] Comment on above: Performed By: #### C /BLD #### [facility] [address] [place], [place] Bands 2 % Normal 0-3 [facility] Comment on above: Performed By: #### C /BLD #### [facility] [address] [place], [place] Basophils 0 % Normal 0-2 [facility] Comment on above: Performed By: #### C /BLD #### [facility] [address] [place], [place] Cells counted [address] [facility] Comment on above: Performed By: #### C /BLD #### [facility] [address] [place], [place] Eosinophils 0 % Low 1-6 [facility] Comment on above: Performed By: #### C /BLD #### [facility] [address] [place], [place] Lymphocytes 2 % Low 20-40 [facility] Comment on above: Performed By: #### C /BLD #### [facility] [address] [place], [place] Macrocytosis Moderate Normal [facility] Comment on above: Performed By: #### C /BLD #### [facility] [address] [place], [place] Monocytes 10 % Normal 2-10 [facility] Comment on above: Performed By: #### C /BLD #### [facility] [address] [place], [place] Ovalocytes Slight Normal [facility] Comment on above: Performed By: #### C /BLD #### [place] [address] [address] [place], [place] Poikilocytosis Slight Normal [facility] Comment on above: Performed By: #### C /BLD #### [facility] [address] [place], [place] Polychromasia Slight Normal [facility] Comment on above: Performed By: #### C /BLD #### [facility] [address] [place], [place] RBC Morphology See Prev Normal [facility] Comment on above: Performed By: #### C /BLD #### [facility] [address] [place], [place] Seg Neutrophils 86 % High 40-80 [facility] Comment on above: Performed By: #### C /BLD #### [facility] [address] [place], [place] Tear Drop Forms Slight Normal [facility] Comment on above: Performed By: #### C /BLD #### [place] [address] [address] [place], [place] Prothrombin Timeon INR 1.7 High 0.9-1.1 [facility] Comment on above: Result Comment: Herber [...] Infarction Performed By: #### C /BLD #### [facility] [address] [place], [place] PT Coag (PPP) [Time] 17.4 s High 9.0-12.0 [facility] Comment on above: Result Comment: . Performed By: #### C /BLD #### [facility] [address] [place], [place] CULTURE BLOODon 05-07-2021 Microscopic examination of blood, culture CULTURE BLOOD --> Status: F No growth at 5 days. Normal [facility] Comment on above: Performed By: #### C /BLD #### [place] [address] [address] [place], [place] CULTURE BLOOD (Two)on 2021 Microscopic examination of blood, culture CULTURE BLOOD (Two) --> Status: F No growth at 5 days. Normal [facility] Comment on above: Performed By: #### C /BLT #### [place] [address] [address] [place], [place] Prothrombin Timeon INR 1.8 High 0.9-1.1 [facility] Comment on above: Result Comment: Herber [...] IFBF, AMYM3, FLDCC, ALBM3, LDMS3, GLMS3 #### [place] [address] [place], [place] PT Coag (PPP) [Time] 18.2 s High 9.0-12.0 [facility] Comment on above: Result Comment: . Performed By: #### D IFBF, AMYM3, FLDCC, ALBM3, LDMS3, GLMS3 #### [place] [address] [place], [place] Calcium,Ionizedon 05-06-2021 Ionized Ca,Measured 3.90 mg/dL Low 4.30-5.20 [facility] Comment on above: Performed By: #### D IFBF, AMYM3, FLDCC, ALBM3, LDMS3, GLMS3 #### [address] pH, Ionized Calcium 7.53 High 7.31-7.46 [facility] Comment on above: Performed By: #### D IFBF, AMYM3, FLDCC, ALBM3, LDMS3, GLMS3 #### [facility] [address] [place], [place] Comp Metabolic Panelon 05-06 Calcium [Mass/Vol] 7.7 mg/dL Low 8.4-10.4 [facility] Comment on above: Performed By: #### D IFBF, AMYM3, FLDCC, ALBM3, LDMS3, GLMS3 #### [place] [address] [address] [place], [place] ALP [Catalytic activity/Vol] 345 U/L High 38-126 [facility] Comment on above: Performed By: #### D IFBF, AMYM3, FLDCC, ALBM3, LDMS3, GLMS3 #### [place] [address] [address] [place], [place] ALT [Catalytic activity/Vol] 42 U/L Normal 0-49 [facility] Comment on above: Result Comment: The ALT test is performed by an updated assay method. Please note that the reference intervals have been changed and are now sex specific. Performed By: #### D IFBF, AMYM3, FLDCC, ALBM3, LDMS3, GLMS3 #### [place] [address] [address] [place], [place] Anion gap [Moles/Vol] 6 mmol/L Normal 3-13 [facility] Comment on above: Performed By: #### D IFBF, AMYM3, FLDCC, ALBM3, LDMS3, GLMS3 #### [address] [address] [address] [place], [place] AST [Catalytic activity/Vol] 129 U/L High 15-46 [facility] Comment on above: Performed By: #### D IFBF, AMYM3, FLDCC, ALBM3, LDMS3, GLMS3 #### [place] [address] [address] [place], [place] Bilirubin [Mass/Vol] 26.2 mg/dL High 0.2-1.3 [facility] Comment on above: Performed By: #### D IFBF, AMYM3, FLDCC, ALBM3, LDMS3, GLMS3 #### [place] [address] [address] [place], [place] CO2 [Moles/Vol] 27 mmol/L Normal 22-30 [facility] Comment on above: Performed By: #### D IFBF, AMYM3, FLDCC, ALBM3, LDMS3, GLMS3 #### [facility] [address] [place], [place] Glucose [Mass/Vol] 94 mg/dL Normal 70-100 [facility] Comment on above: Performed By: #### D IFBF, AMYM3, FLDCC, ALBM3, LDMS3, GLMS3 #### [place] [address] [address] [place], [place] Protein [Mass/Vol] 6.9 g/dL Normal 6.3-8.2 [facility] Comment on above: Performed By: #### D IFBF, AMYM3, FLDCC, ALBM3, LDMS3, GLMS3 #### [place] [address] [address] [place], [place] Urea nitrogen [Mass/Vol] 13 mg/dL Normal 7-17 [facility] Comment on above: Performed By: #### D IFBF, AMYM3, FLDCC, ALBM3, LDMS3, GLMS3 #### [place] [address] [address] [place], [place] Creatinine [Mass/Vol] 0.77 mg/dL Normal 0.52-1.25 [facility] Comment on above: Performed By: #### D IFBF, AMYM3, FLDCC, ALBM3, LDMS3, GLMS3 #### [address] [address] [address] [place], [place] eGFR OTHER > 90.0 Normal >60 [facility] Comment on above: Result Comment: KDIG [...] IFBF, AMYM3, FLDCC, ALBM3, LDMS3, GLMS3 #### [place] [address] [place], [place] GFR/1.73 sq M.predicted among blacks MDRD (S/P/Bld) [Vol rate/Area] mL/min/{1.73_m2} Normal >60 [facility] Comment on above: Performed By: #### D IFBF, AMYM3, FLDCC, ALBM3, LDMS3, GLMS3 #### [address] Albumin [Mass/Vol] 2.5 g/dL Low 3.5-5.0 [facility] Comment on above: Performed By: #### D IFBF, AMYM3, FLDCC, ALBM3, LDMS3, GLMS3 #### [place] [address] [place], [place] Chloride [Moles/Vol] 99 mmol/L Normal 98-107 [facility] Comment on above: Performed By: #### D IFBF, AMYM3, FLDCC, ALBM3, LDMS3, GLMS3 #### [address] Potassium [Moles/Vol] 3.5 mmol/L Normal 3.5-5.1 [facility] Comment on above: Performed By: #### D IFBF, AMYM3, FLDCC, ALBM3, LDMS3, GLMS3 #### [address] Sodium [Moles/Vol] 132 mmol/L Low 135-145 [facility] Comment on above: Performed By: #### D IFBF, AMYM3, FLDCC, ALBM3, LDMS3, GLMS3 #### [address], [place] Folateon 05-06-2021 Folate 3.7 ng/mL Normal [facility] Comment on above: Result Comment: >2.8 Performed By: #### D IFBF, AMYM3, FLDCC, ALBM3, LDMS3, GLMS3 #### [address] Hemogram w/ Autodiffon 05-06 Erythrocyte distribution width (RBC) [Ratio] 15.2 % High 11.5-14.5 [facility] Comment on above: Performed By: #### D IFBF, AMYM3, FLDCC, ALBM3, LDMS3, GLMS3 #### [address] Hematocrit (Bld) [Volume fraction] 30.3 % Low 40.0-52.0 [facility] Comment on above: Performed By: #### D IFBF, AMYM3, FLDCC, ALBM3, LDMS3, GLMS3 #### [address] Hemoglobin (Bld) [Mass/Vol] 10.3 g/dL Low 13.0-18.0 [facility] Comment on above: Performed By: #### D IFBF, AMYM3, FLDCC, ALBM3, LDMS3, GLMS3 #### [address] MCH (RBC) [Entitic mass] 39.3 pg High 26.0-34.0 [facility] Comment on above: Performed By: #### D IFBF, AMYM3, FLDCC, ALBM3, LDMS3, GLMS3 #### [address] MCHC 34.1 % Normal 32.0-36.0 [facility] Comment on above: Performed By: #### D IFBF, AMYM3, FLDCC, ALBM3, LDMS3, GLMS3 #### [address] MCV (RBC) [Entitic vol] 115.1 fL High 80.0-98.0 [facility] Comment on above: Performed By: #### D IFBF, AMYM3, FLDCC, ALBM3, LDMS3, GLMS3 #### [address] [address] [address] [place], [place] Platelet mean volume (Bld) [Entitic vol] 8.8 fL Normal 7.4-10.4 [facility] Comment on above: Performed By: #### D IFBF, AMYM3, FLDCC, ALBM3, LDMS3, GLMS3 #### [address] [address] [address] [place], [place] Platelets (Bld) [#/Vol] 79 10*3/uL Low 140-440 [facility] Comment on above: Performed By: #### D IFBF, AMYM3, FLDCC, ALBM3, LDMS3, GLMS3 #### [address] [address] [place], [place] RBC (Bld) [#/Vol] 2.63 10*6/uL Low 4.40-5.90 [facility] Comment on above: Performed By: #### D IFBF, AMYM3, FLDCC, ALBM3, LDMS3, GLMS3 #### [address] [address] [address] [place], [place] WBC (Bld) [#/Vol] 9.9 10*3/uL Normal 3.6-10.7 [facility] Comment on above: Performed By: #### D IFBF, AMYM3, FLDCC, ALBM3, LDMS3, GLMS3 #### [address] Manual Diffon 05-06-2021 Abs Lymph Cnt 0.2 10*3/uL Low 1.1-4.5 [facility] Comment on above: Performed By: #### C /BLD #### [address] Abs Monocyte Cnt 0.9 10*3/uL Normal 0.2-1.1 [facility] Comment on above: Performed By: #### C /BLD #### [facility] [address] [place], [place] Abs Neutrophile Cnt 8.8 10*3/uL High 2.2-8.2 [facility] Comment on above: Performed By: #### C /BLD #### [address] [address] [address] [place], [place] Anisocytosis Slight Normal [facility] Comment on above: Performed By: #### C /BLD #### [address] [address] [address] [place], [place] Bands 5 % High 0-3 [facility] Comment on above: Performed By: #### C /BLD #### [address] [address] [address] [place], [place] Large Platelets Slight Normal [facility] Comment on above: Performed By: #### C /BLD #### [address] [address] [address] [place], [place] Lymphocytes 2 % Low 20-40 [facility] Comment on above: Performed By: #### C /BLD #### [address] [address] [address] [place], [place] Macrocytosis Slight Normal [facility] Comment on above: Performed By: #### C /BLD #### [address] [address] [address] [place], [place] Monocytes 9 % Normal 2-10 [facility] Comment on above: Performed By: #### C /BLD #### [address] [address] [address] [place], [place] Polychromasia Slight Normal [facility] Comment on above: Performed By: #### C /BLD #### [address] [address] [address] [place], [place] RBC Morphology ABNORMAL Normal [facility] Comment on above: Performed By: #### C /BLD #### [address] [address] [address] [place], [place] Seg Neutrophils 84 % High 40-80 [facility] Comment on above: Performed By: #### C /BLD #### [address] [address] [address] [place], [place] Abs Baso Cnt 0.0 10*3/uL Normal 0.0-0.2 [facility] Comment on above: Performed By: #### C /BLD #### [facility] [address] [place], [place] Abs Eosin Cnt 0.0 10*3/uL Normal 0.0-0.5 [facility] Comment on above: Performed By: #### C /BLD #### [address] [address] [address] [place], [place] Basophils 0 % Normal 0-2 [facility] Comment on above: Performed By: #### C /BLD #### [address] [address] [address] [place], [place] Cells counted 100 Normal [facility] Comment on above: Performed By: #### C /BLD #### [address] [address] [place], [place] Eosinophils 0 % Low 1-6 [facility] Comment on above: Performed By: #### C /BLD #### [address] [address] [address] [place], [place] Prothrombin Timeon 2 INR 1.6 High 0.9-1.1 [facility] Comment on above: Result Comment: Herber [...] IFBF, AMYM3, FLDCC, ALBM3, LDMS3, GLMS3 #### [facility] [address] [place], [place] PT Coag (PPP) [Time] 16.8 s High 9.0-12.0 [facility] Comment on above: Result Comment: . Performed By: #### D IFBF, AMYM3, FLDCC, ALBM3, LDMS3, GLMS3 #### [facility] [address] [place] [address] Thyroid Stim. Hormoneon Thyroid Stim. Hormone 0.803 u[IU]/mL Normal 0.46 5-4.68 0 [facility] Comment on above: Performed By: #### D IFBF, AMYM3, FLDCC, ALBM3, LDMS3, GLMS3 #### [facility] [address] [place] [address] US Paracentesison 05-06-2021 US Paracentesis Patient Name: DANNY MATSON Ultrasound ACCESSION EXAM DATE/TIME PROCEDURE ORDERING PROVIDER [id number] 05/06/2021 12:12 EST US Paracentesis Initial [id number] ELLA PHILLIPS CPT code 97355 Reason For Exam (US Paracentesis Initial) abdominal ascites Report Reasons for examination: Abdominal distention and discomfort. Ascites. Ultrasound was performed of the abdomen, localizing the ascitic fluid. After obtaining informed consent, sterile preparation, draping, and local anesthetic administration, paracentesis was performed under direct ultrasonographic guidance with a 5 Mong[place] Yueh needle/catheter in the 6200 mL abdomen. [...] Transcribed Date and Time: 05/06/2021 12:29 Normal [facility] Vitamin B12on 05-06-2021 Cobalamin (Vitamin B12) [Mass/Vol] 988 pg/mL High 239-931 [facility] Comment on above: Performed By: #### D IFBF, AMYM3, FLDCC, ALBM3, LDMS3, GLMS3 #### [facility] [address] [place], [place] CULTURE AND STAIN - FLUIDon 05-05-2021 CULTURE AND STAIN - FLUID CULTURE & STAIN - FLUID --> Status: F No growth at 3 days. Normal [facility] Comment on above: Performed By: #### D IFBF, AMYM3, FLDCC, ALBM3, LDMS3, GLMS3 #### [facility] [address] [place], [place] Comp Panel with Mg Reflexon 05-05-2021 Bilirubin [Mass/Vol] 30.7 mg/dL High 0.2-1.3 [facility] Comment on above: Performed By: #### D IFBF, AMYM3, FLDCC, ALBM3, LDMS3, GLMS3 #### [address] [address] [address] [place], [place] Calcium [Mass/Vol] 7.7 mg/dL Low 8.4-10.4 [facility] Comment on above: Performed By: #### D IFBF, AMYM3, FLDCC, ALBM3, LDMS3, GLMS3 #### [facility] [address] [place], [place] Glucose [Mass/Vol] 118 mg/dL High 70-100 [facility] Comment on above: Performed By: #### D IFBF, AMYM3, FLDCC, ALBM3, LDMS3, GLMS3 #### [facility] [address] [place], [place] ALP [Catalytic activity/Vol] 336 U/L High 38-126 [facility] Comment on above: Performed By: #### D IFBF, AMYM3, FLDCC, ALBM3, LDMS3, GLMS3 #### [facility] [address] [place], [place] ALT [Catalytic activity/Vol] 39 U/L Normal 0-49 [facility] Comment on above: Result Comment: The ALT test is performed by an updated assay method. Please note that the reference intervals have been changed and are now sex specific. Performed By: #### D IFBF, AMYM3, FLDCC, ALBM3, LDMS3, GLMS3 #### [address] [address] [address] [place], [place] Anion gap [Moles/Vol] 7 mmol/L Normal 3-13 [facility] Comment on above: Performed By: #### D IFBF, AMYM3, FLDCC, ALBM3, LDMS3, GLMS3 #### [address] [address] [address] [place], [place] AST [Catalytic activity/Vol] 126 U/L High 15-46 [facility] Comment on above: Performed By: #### D IFBF, AMYM3, FLDCC, ALBM3, LDMS3, GLMS3 #### [address] [address] [address] [place], [place] CO2 [Moles/Vol] 28 mmol/L Normal 22-30 [facility] Comment on above: Performed By: #### D IFBF, AMYM3, FLDCC, ALBM3, LDMS3, GLMS3 #### [address] [address] [address] [place], [place] Creatinine [Mass/Vol] 0.74 mg/dL Normal 0.52-1.25 [facility] Comment on above: Performed By: #### D IFBF, AMYM3, FLDCC, ALBM3, LDMS3, GLMS3 #### [address] [address] [address] [place], [place] eGFR OTHER > 90.0 Normal >60 [facility] Comment on above: Result Comment: KDIG [...] IFBF, AMYM3, FLDCC, ALBM3, LDMS3, GLMS3 #### [facility] [address] [place] [address] GFR/1.73 sq M.predicted among blacks MDRD (S/P/Bld) [Vol rate/Area] mL/min/{1.73_m2} Normal >60 [facility] Comment on above: Performed By: #### D IFBF, AMYM3, FLDCC, ALBM3, LDMS3, GLMS3 #### [address] [address] [address] [place], [place] Protein [Mass/Vol] 7.1 g/dL Normal 6.3-8.2 [facility] Comment on above: Performed By: #### D IFBF, AMYM3, FLDCC, ALBM3, LDMS3, GLMS3 #### [address] [address] [address] [place], [place] Urea nitrogen [Mass/Vol] 13 mg/dL Normal 7-17 [facility] Comment on above: Performed By: #### D IFBF, AMYM3, FLDCC, ALBM3, LDMS3, GLMS3 #### [address] [address] [place] [address] Potassium [Moles/Vol] 3.3 mmol/L Low 3.5-5.1 [facility] Comment on above: Performed By: #### D IFBF, AMYM3, FLDCC, ALBM3, LDMS3, GLMS3 #### [address] [place] [address] Albumin [Mass/Vol] 2.6 g/dL Low 3.5-5.0 [facility] Comment on above: Performed By: #### D IFBF, AMYM3, FLDCC, ALBM3, LDMS3, GLMS3 #### [address] [place] [address] Chloride [Moles/Vol] 96 mmol/L Low 98-107 [facility] Comment on above: Performed By: #### D IFBF, AMYM3, FLDCC, ALBM3, LDMS3, GLMS3 #### [address] [address] [address] [place], [place] Sodium [Moles/Vol] 131 mmol/L Low 135-145 [facility] Comment on above: Performed By: #### D IFBF, AMYM3, FLDCC, ALBM3, LDMS3, GLMS3 #### [address] [address] [place], [place] Hemogram w/ Autodiffon 05-05 Abs Baso Cnt 0.0 10*3/uL Normal 0.0-0.2 [facility] Comment on above: Performed By: #### D IFBF, AMYM3, FLDCC, ALBM3, LDMS3, GLMS3 #### [address] Abs Neutrophile Cnt 8.5 10*3/uL High 1.8-7.0 [facility] Comment on above: Performed By: #### D IFBF, AMYM3, FLDCC, ALBM3, LDMS3, GLMS3 #### [address] [address] [place], [place] Basophils/100 WBC (Bld) 0.3 % Normal 0.0-2.0 [facility] Comment on above: Performed By: #### D IFBF, AMYM3, FLDCC, ALBM3, LDMS3, GLMS3 #### [address] [address] [place], [place] Eosinophils (Bld) [#/Vol] 0.0 10*3/uL Normal 0.0-0.5 [facility] Comment on above: Performed By: #### D IFBF, AMYM3, FLDCC, ALBM3, LDMS3, GLMS3 #### [address] Eosinophils/100 WBC (Bld) 0.1 % Low 1.0-6.0 [facility] Comment on above: Performed By: #### D IFBF, AMYM3, FLDCC, ALBM3, LDMS3, GLMS3 #### [address] [address] [place], [place] Erythrocyte distribution width (RBC) [Ratio] 15.0 % High 11.5-14.5 [facility] Comment on above: Performed By: #### D IFBF, AMYM3, FLDCC, ALBM3, LDMS3, GLMS3 #### [address] [address] [address] [place], [place] Granulocytes/100 WBC (Bld) 86.1 % High 40.0-80.0 [facility] Comment on above: Performed By: #### D IFBF, AMYM3, FLDCC, ALBM3, LDMS3, GLMS3 #### [address] [address] [place], [place] Hematocrit (Bld) [Volume fraction] 29.6 % Low 40.0-52.0 [facility] Comment on above: Performed By: #### D IFBF, AMYM3, FLDCC, ALBM3, LDMS3, GLMS3 #### [address] [address] [address] [place], [place] Hemoglobin (Bld) [Mass/Vol] 10.4 g/dL Low 13.0-18.0 [facility] Comment on above: Performed By: #### D IFBF, AMYM3, FLDCC, ALBM3, LDMS3, GLMS3 #### [address] [address] [place], [place] Lymphocytes (Bld) [#/Vol] 0.3 10*3/uL Low 1.0-4.3 [facility] Comment on above: Performed By: #### D IFBF, AMYM3, FLDCC, ALBM3, LDMS3, GLMS3 #### [address] Lymphocytes/100 WBC (Bld) 3.2 % Low 20.0-40.0 [facility] Comment on above: Performed By: #### D IFBF, AMYM3, FLDCC, ALBM3, LDMS3, GLMS3 #### [address] [address] [address] [place], [place] MCH (RBC) [Entitic mass] 40.2 pg High 26.0-34.0 [facility] Comment on above: Performed By: #### D IFBF, AMYM3, FLDCC, ALBM3, LDMS3, GLMS3 #### [facility] [address] [place], [place] MCHC 35.2 % Normal 32.0-36.0 [facility] Comment on above: Performed By: #### D IFBF, AMYM3, FLDCC, ALBM3, LDMS3, GLMS3 #### [facility] [address] [place], [place] MCV (RBC) [Entitic vol] 114.2 fL High 80.0-98.0 [facility] Comment on above: Performed By: #### D IFBF, AMYM3, FLDCC, ALBM3, LDMS3, GLMS3 #### [address] [address] [place], [place] Monocytes (Bld) [#/Vol] 1.0 10*3/uL High 0.0-0.8 [facility] Comment on above: Performed By: #### D IFBF, AMYM3, FLDCC, ALBM3, LDMS3, GLMS3 #### [facility] [address] [place], [place] Monocytes/100 WBC (Bld) 10.3 % High 2.0-10.0 [facility] Comment on above: Performed By: #### D IFBF, AMYM3, FLDCC, ALBM3, LDMS3, GLMS3 #### [address] [address] [address] [place], [place] Platelet mean volume (Bld) [Entitic vol] 8.7 fL Normal 7.4-10.4 [facility] Comment on above: Performed By: #### D IFBF, AMYM3, FLDCC, ALBM3, LDMS3, GLMS3 #### [facility] [address] [place], [place] Platelets (Bld) [#/Vol] 70 10*3/uL Low 140-440 [facility] Comment on above: Performed By: #### D IFBF, AMYM3, FLDCC, ALBM3, LDMS3, GLMS3 #### [facility] [address] [place], [place] RBC (Bld) [#/Vol] 2.59 10*6/uL Low 4.40-5.90 [facility] Comment on above: Performed By: #### D IFBF, AMYM3, FLDCC, ALBM3, LDMS3, GLMS3 #### [address] [address] [place], [place] WBC (Bld) [#/Vol] 9.9 10*3/uL Normal 3.6-10.7 [facility] Comment on above: Performed By: #### D IFBF, AMYM3, FLDCC, ALBM3, LDMS3, GLMS3 #### [address] [address] [address] [place], [place] Magnesiumon 05-05-2021 Magnesium [Mass/Vol] 2.1 mg/dL Normal 1.6-2.3 [facility] Comment on above: Performed By: #### D IFBF, AMYM3, FLDCC, ALBM3, LDMS3, GLMS3 #### [address] [address] [place], [place] Prothrombin Timeon INR 1.7 High 0.9-1.1 [facility] Comment on above: Result Comment: Herber [...] IFBF, AMYM3, FLDCC, ALBM3, LDMS3, GLMS3 #### [address] [address] [place], [place] PT Coag (PPP) [Time] 17.7 s High 9.0-12.0 [facility] Comment on above: Result Comment: . Performed By: #### D IFBF, AMYM3, FLDCC, ALBM3, LDMS3, GLMS3 #### [facility] [address] [place], [place] CULTURE AND STAIN - FLUIDon 05-04-2021 CULTURE AND STAIN - FLUID CULTURE & STAIN - FLUID --> Status: F No growth at 3 days. Normal [facility] Comment on above: Performed By: #### C XFLD, S/GRM #### [facility] [address] [place], [place] Comp Panel with Mg Reflexon 05-04-2021 Bilirubin [Mass/Vol] 30.6 mg/dL High 0.2-1.3 [facility] Comment on above: Performed By: #### D IFBF, AMYM3, FLDCC, ALBM3, LDMS3, GLMS3 #### [address] [address] [place], [place] ALP [Catalytic activity/Vol] 331 U/L High 38-126 [facility] Comment on above: Performed By: #### D IFBF, AMYM3, FLDCC, ALBM3, LDMS3, GLMS3 #### [facility] [address] [place], [place] ALT [Catalytic activity/Vol] 39 U/L Normal 0-49 [facility] Comment on above: Result Comment: The ALT test is performed by an updated assay method. Please note that the reference intervals have been changed and are now sex specific. Performed By: #### D IFBF, AMYM3, FLDCC, ALBM3, LDMS3, GLMS3 #### [facility] [address] [place], [place] AST [Catalytic activity/Vol] 136 U/L High 15-46 [facility] Comment on above: Performed By: #### D IFBF, AMYM3, FLDCC, ALBM3, LDMS3, GLMS3 #### [facility] [address] [place], [place] Calcium [Mass/Vol] 7.9 mg/dL Low 8.4-10.4 [facility] Comment on above: Performed By: #### D IFBF, AMYM3, FLDCC, ALBM3, LDMS3, GLMS3 #### [address] [address] [place], [place] Glucose [Mass/Vol] 156 mg/dL High 70-100 [facility] Comment on above: Performed By: #### D IFBF, AMYM3, FLDCC, ALBM3, LDMS3, GLMS3 #### [address] [address] [place], [place] Protein [Mass/Vol] 7.1 g/dL Normal 6.3-8.2 [facility] Comment on above: Performed By: #### D IFBF, AMYM3, FLDCC, ALBM3, LDMS3, GLMS3 #### [address] [place], [place] Urea nitrogen [Mass/Vol] 10 mg/dL Normal 7-17 [facility] Comment on above: Performed By: #### D IFBF, AMYM3, FLDCC, ALBM3, LDMS3, GLMS3 #### [address] [place], [place] Anion gap [Moles/Vol] 9 mmol/L Normal 3-13 [facility] Comment on above: Performed By: #### D IFBF, AMYM3, FLDCC, ALBM3, LDMS3, GLMS3 #### [address] [place], [place] CO2 [Moles/Vol] 29 mmol/L Normal 22-30 [facility] Comment on above: Performed By: #### D IFBF, AMYM3, FLDCC, ALBM3, LDMS3, GLMS3 #### [address] [place], [place] Creatinine [Mass/Vol] 0.71 mg/dL Normal 0.52-1.25 [facility] Comment on above: Performed By: #### D IFBF, AMYM3, FLDCC, ALBM3, LDMS3, GLMS3 #### [address] [place] [address] eGFR OTHER > 90.0 Normal >60 [facility] Comment on above: Result Comment: KDIG [...] IFBF, AMYM3, FLDCC, ALBM3, LDMS3, GLMS3 #### [address] [address] [place], [place] GFR/1.73 sq M.predicted among blacks MDRD (S/P/Bld) [Vol rate/Area] mL/min/{1.73_m2} Normal >60 [facility] Comment on above: Performed By: #### D IFBF, AMYM3, FLDCC, ALBM3, LDMS3, GLMS3 #### [address] [place], [place] Albumin [Mass/Vol] 2.6 g/dL Low 3.5-5.0 [facility] Comment on above: Performed By: #### D IFBF, AMYM3, FLDCC, ALBM3, LDMS3, GLMS3 #### [address] [address] [place], [place] Chloride [Moles/Vol] 95 mmol/L Low 98-107 [facility] Comment on above: Performed By: #### D IFBF, AMYM3, FLDCC, ALBM3, LDMS3, GLMS3 #### [address] [address] [place], [place] Potassium [Moles/Vol] 3.2 mmol/L Low 3.5-5.1 [facility] Comment on above: Performed By: #### D IFBF, AMYM3, FLDCC, ALBM3, LDMS3, GLMS3 #### [address] [address] [place], [place] Sodium [Moles/Vol] 133 mmol/L Low 135-145 [facility] Comment on above: Performed By: #### D IFBF, AMYM3, FLDCC, ALBM3, LDMS3, GLMS3 #### [address] Hemogram w/ Autodiffon 05-04 Erythrocyte distribution width (RBC) [Ratio] 14.7 % High 11.5-14.5 [facility] Comment on above: Performed By: #### D IFBF, AMYM3, FLDCC, ALBM3, LDMS3, GLMS3 #### [address] Hematocrit (Bld) [Volume fraction] 29.7 % Low 40.0-52.0 [facility] Comment on above: Performed By: #### D IFBF, AMYM3, FLDCC, ALBM3, LDMS3, GLMS3 #### [address] Hemoglobin (Bld) [Mass/Vol] 10.4 g/dL Low 13.0-18.0 [facility] Comment on above: Performed By: #### D IFBF, AMYM3, FLDCC, ALBM3, LDMS3, GLMS3 #### [address] MCH (RBC) [Entitic mass] 40.3 pg High 26.0-34.0 [facility] Comment on above: Performed By: #### D IFBF, AMYM3, FLDCC, ALBM3, LDMS3, GLMS3 #### [address] MCHC 35.0 % Normal 32.0-36.0 [facility] Comment on above: Performed By: #### D IFBF, AMYM3, FLDCC, ALBM3, LDMS3, GLMS3 #### [address] [address] [place], [place] MCV (RBC) [Entitic vol] 115.2 fL High 80.0-98.0 [facility] Comment on above: Performed By: #### D IFBF, AMYM3, FLDCC, ALBM3, LDMS3, GLMS3 #### [address] [place], [place] Platelet mean volume (Bld) [Entitic vol] 9.7 fL Normal 7.4-10.4 [facility] Comment on above: Performed By: #### D IFBF, AMYM3, FLDCC, ALBM3, LDMS3, GLMS3 #### [address] [address] [place], [place] Platelets (Bld) [#/Vol] 63 10*3/uL Low 140-440 [facility] Comment on above: Performed By: #### D IFBF, AMYM3, FLDCC, ALBM3, LDMS3, GLMS3 #### [address] [address] [place], [place] RBC (Bld) [#/Vol] 2.58 10*6/uL Low 4.40-5.90 [facility] Comment on above: Performed By: #### D IFBF, AMYM3, FLDCC, ALBM3, LDMS3, GLMS3 #### [address] [address] [place], [place] WBC (Bld) [#/Vol] 8.1 10*3/uL Normal 3.6-10.7 [facility] Comment on above: Performed By: #### D IFBF, AMYM3, FLDCC, ALBM3, LDMS3, GLMS3 #### [address] [place], [place] Magnesiumon 05-04-2021 Magnesium [Mass/Vol] 2.1 mg/dL Normal 1.6-2.3 [facility] Comment on above: Performed By: #### D IFBF, AMYM3, FLDCC, ALBM3, LDMS3, GLMS3 #### [address] [place], [place] Manual Diffon 05-04-2021 Abs Lymph Cnt 0.1 10*3/uL Low 1.1-4.5 [facility] Comment on above: Performed By: #### D IFBF, AMYM3, FLDCC, ALBM3, LDMS3, GLMS3 #### [address] Abs Monocyte Cnt 0.3 10*3/uL Normal 0.2-1.1 [facility] Comment on above: Performed By: #### D IFBF, AMYM3, FLDCC, ALBM3, LDMS3, GLMS3 #### [address] Abs Neutrophile Cnt 7.7 10*3/uL Normal 2.2-8.2 [facility] Comment on above: Performed By: #### D IFBF, AMYM3, FLDCC, ALBM3, LDMS3, GLMS3 #### [address] Bands 2 % Normal 0-3 [facility] Comment on above: Performed By: #### D IFBF, AMYM3, FLDCC, ALBM3, LDMS3, GLMS3 #### [address] Lymphocytes 1 % Low 20-40 [facility] Comment on above: Performed By: #### D IFBF, AMYM3, FLDCC, ALBM3, LDMS3, GLMS3 #### [address] Monocytes 4 % Normal 2-10 [facility] Comment on above: Performed By: #### D IFBF, AMYM3, FLDCC, ALBM3, LDMS3, GLMS3 #### [address] RBC Morphology See Prev Normal [facility] Comment on above: Performed By: #### D IFBF, AMYM3, FLDCC, ALBM3, LDMS3, GLMS3 #### [address] Seg Neutrophils 93 % High 40-80 [facility] Comment on above: Performed By: #### D IFBF, AMYM3, FLDCC, ALBM3, LDMS3, GLMS3 #### [address] [address] [place], [place] Abs Baso Cnt 0.0 10*3/uL Normal 0.0-0.2 [facility] Comment on above: Performed By: #### D IFBF, AMYM3, FLDCC, ALBM3, LDMS3, GLMS3 #### [address] [address] [place], [place] Abs Eosin Cnt 0.0 10*3/uL Normal 0.0-0.5 [facility] Comment on above: Performed By: #### D IFBF, AMYM3, FLDCC, ALBM3, LDMS3, GLMS3 #### [address] Basophils 0 % Normal 0-2 [facility] Comment on above: Performed By: #### D IFBF, AMYM3, FLDCC, ALBM3, LDMS3, GLMS3 #### [address] Cells counted 100 Normal [facility] Comment on above: Performed By: #### D IFBF, AMYM3, FLDCC, ALBM3, LDMS3, GLMS3 #### [place] [address] [place], [place] Eosinophils 0 % Low 1-6 [facility] Comment on above: Performed By: #### D IFBF, AMYM3, FLDCC, ALBM3, LDMS3, GLMS3 #### [address] Prothrombin Timeon 2 INR 1.8 High 0.9-1.1 [facility] Comment on above: Result Comment: Herber [...] IFBF, AMYM3, FLDCC, ALBM3, LDMS3, GLMS3 #### [place] [place] [address] [address] [place], [place] PT Coag (PPP) [Time] 18.3 s High 9.0-12.0 [facility] Comment on above: Result Comment: . Performed By: #### D IFBF, AMYM3, FLDCC, ALBM3, LDMS3, GLMS3 #### [address] [place] [address] [address] [place], [place] Ammoniaon 05-03-2021 Ammonia (P) [Moles/Vol] 55 umol/L High 9-30 [facility] Comment on above: Performed By: #### D IFBF, AMYM3, FLDCC, ALBM3, LDMS3, GLMS3 #### [address] [place] [address] [address] [place], [place] Comp Panel with Mg Reflexon 05-03-2021 Bilirubin [Mass/Vol] 33.4 mg/dL High 0.2-1.3 [facility] Comment on above: Performed By: #### D IFBF, AMYM3, FLDCC, ALBM3, LDMS3, GLMS3 #### [address] [place] [address] [address] [place], [place] ALT [Catalytic activity/Vol] 41 U/L Normal 0-49 [facility] Comment on above: Result Comment: The ALT test is performed by an updated assay method. Please note that the reference intervals have been changed and are now sex specific. Performed By: #### D IFBF, AMYM3, FLDCC, ALBM3, LDMS3, GLMS3 #### [address] [place] [address] [address] [place], [place] Calcium [Mass/Vol] 7.6 mg/dL Low 8.4-10.4 [facility] Comment on above: Performed By: #### D IFBF, AMYM3, FLDCC, ALBM3, LDMS3, GLMS3 #### [facility] [address] [place], [place] Glucose [Mass/Vol] 87 mg/dL Normal 70-100 [facility] Comment on above: Performed By: #### D IFBF, AMYM3, FLDCC, ALBM3, LDMS3, GLMS3 #### [facility] [address] [place], [place] ALP [Catalytic activity/Vol] 307 U/L High 38-126 [facility] Comment on above: Performed By: #### D IFBF, AMYM3, FLDCC, ALBM3, LDMS3, GLMS3 #### [facility] [address], [place] Anion gap [Moles/Vol] 8 mmol/L Normal 3-13 [facility] Comment on above: Performed By: #### D IFBF, AMYM3, FLDCC, ALBM3, LDMS3, GLMS3 #### [place] [address] [place], [place] AST [Catalytic activity/Vol] 169 U/L High 15-46 [facility] Comment on above: Performed By: #### D IFBF, AMYM3, FLDCC, ALBM3, LDMS3, GLMS3 #### [facility] [address], [place] CO2 [Moles/Vol] 25 mmol/L Normal 22-30 [facility] Comment on above: Performed By: #### D IFBF, AMYM3, FLDCC, ALBM3, LDMS3, GLMS3 #### [facility] [address], [place] Creatinine [Mass/Vol] 0.69 mg/dL Normal 0.52-1.25 [facility] Comment on above: Performed By: #### D IFBF, AMYM3, FLDCC, ALBM3, LDMS3, GLMS3 #### [facility] [address], [place] eGFR OTHER > 90.0 Normal >60 [facility] Comment on above: Result Comment: KDIG [...] IFBF, AMYM3, FLDCC, ALBM3, LDMS3, GLMS3 #### [address] GFR/1.73 sq M.predicted among blacks MDRD (S/P/Bld) [Vol rate/Area] mL/min/{1.73_m2} Normal >60 [facility] Comment on above: Performed By: #### D IFBF, AMYM3, FLDCC, ALBM3, LDMS3, GLMS3 #### [address] Protein [Mass/Vol] 7.0 g/dL Normal 6.3-8.2 [facility] Comment on above: Performed By: #### D IFBF, AMYM3, FLDCC, ALBM3, LDMS3, GLMS3 #### [address] Urea nitrogen [Mass/Vol] 7 mg/dL Normal 7-17 [facility] Comment on above: Performed By: #### D IFBF, AMYM3, FLDCC, ALBM3, LDMS3, GLMS3 #### [address] Potassium [Moles/Vol] 3.1 mmol/L Low 3.5-5.1 [facility] Comment on above: Performed By: #### D IFBF, AMYM3, FLDCC, ALBM3, LDMS3, GLMS3 #### [place] [address] [place], [place] Sodium [Moles/Vol] 127 mmol/L Low 135-145 [facility] Comment on above: Performed By: #### D IFBF, AMYM3, FLDCC, ALBM3, LDMS3, GLMS3 #### [place] [address] [place], [place] Albumin [Mass/Vol] 2.5 g/dL Low 3.5-5.0 [facility] Comment on above: Performed By: #### D IFBF, AMYM3, FLDCC, ALBM3, LDMS3, GLMS3 #### [place] [address] [place], [place] Chloride [Moles/Vol] 94 mmol/L Low 98-107 [facility] Comment on above: Performed By: #### D IFBF, AMYM3, FLDCC, ALBM3, LDMS3, GLMS3 #### [place] [address] [place], [place] Hemogramon 05-03-2021 Erythrocyte distribution width (RBC) [Ratio] 14.4 % Normal 11.5-14.5 [facility] Comment on above: Performed By: #### D IFBF, AMYM3, FLDCC, ALBM3, LDMS3, GLMS3 #### [place] [address] [place], [place] Hematocrit (Bld) [Volume fraction] 28.0 % Low 40.0-52.0 [facility] Comment on above: Performed By: #### D IFBF, AMYM3, FLDCC, ALBM3, LDMS3, GLMS3 #### [place] [address] [place], [place] Hemoglobin (Bld) [Mass/Vol] 9.7 g/dL Low 13.0-18.0 [facility] Comment on above: Performed By: #### D IFBF, AMYM3, FLDCC, ALBM3, LDMS3, GLMS3 #### [place] [address] [place], [place] MCH (RBC) [Entitic mass] 39.4 pg High 26.0-34.0 [facility] Comment on above: Performed By: #### D IFBF, AMYM3, FLDCC, ALBM3, LDMS3, GLMS3 #### [facility] [address], [place] MCHC 34.6 % Normal 32.0-36.0 [facility] Comment on above: Performed By: #### D IFBF, AMYM3, FLDCC, ALBM3, LDMS3, GLMS3 #### [facility] [address], [place] MCV (RBC) [Entitic vol] 114.1 fL High 80.0-98.0 [facility] Comment on above: Performed By: #### D IFBF, AMYM3, FLDCC, ALBM3, LDMS3, GLMS3 #### [place] [address] [place], [place] Platelet mean volume (Bld) [Entitic vol] 8.3 fL Normal 7.4-10.4 [facility] Comment on above: Performed By: #### D IFBF, AMYM3, FLDCC, ALBM3, LDMS3, GLMS3 #### [facility] [address], [place] Platelets (Bld) [#/Vol] 44 10*3/uL Low 140-440 [facility] Comment on above: Performed By: #### D IFBF, AMYM3, FLDCC, ALBM3, LDMS3, GLMS3 #### [place] [address] [place], [place] RBC (Bld) [#/Vol] 2.45 10*6/uL Low 4.40-5.90 [facility] Comment on above: Performed By: #### D IFBF, AMYM3, FLDCC, ALBM3, LDMS3, GLMS3 #### [facility] [address], [place] WBC (Bld) [#/Vol] 6.9 10*3/uL Normal 3.6-10.7 [facility] Comment on above: Performed By: #### D IFBF, AMYM3, FLDCC, ALBM3, LDMS3, GLMS3 #### [place] [address] [place], [place] Lactic Acidon 05-03-2021 Lactate [Moles/Vol] 2.0 mmol/L Normal 0.7-2.0 [facility] Comment on above: Performed By: #### D IFBF, AMYM3, FLDCC, ALBM3, LDMS3, GLMS3 #### [place] [address] [place], [place] Lactate [Moles/Vol] 1.5 mmol/L Normal 0.7-2.0 [facility] Comment on above: Performed By: #### D IFBF, AMYM3, FLDCC, ALBM3, LDMS3, GLMS3 #### [address] Magnesiumon 05-03-2021 Magnesium [Mass/Vol] 1.7 mg/dL Normal 1.6-2.3 [facility] Comment on above: Performed By: #### D IFBF, AMYM3, FLDCC, ALBM3, LDMS3, GLMS3 #### [address] Prothrombin Timeon INR 1.8 High 0.9-1.1 [facility] Comment on above: Result Comment: Herber [...] IFBF, AMYM3, FLDCC, ALBM3, LDMS3, GLMS3 #### [place] [address] [place], [place] PT Coag (PPP) [Time] 18.2 s High 9.0-12.0 [facility] Comment on above: Result Comment: . Performed By: #### D IFBF, AMYM3, FLDCC, ALBM3, LDMS3, GLMS3 #### [facility] [address], [place] Vancomycin Troughon 05-03-19 Vancomycin Trough 5.8 ug/mL Low 15.0-20.0 [facility] Comment on above: Result Comment: . Performed By: #### D IFBF, AMYM3, FLDCC, ALBM3, LDMS3, GLMS3 #### [facility] [address], [place] Acute Hepatitis Panelon Hep C Antibody Not detected Normal Not Detected [facility] Comment on above: Result Comment: Patients with DETECTED Hepatitis C Ab results should have a new specimen submitted for supplemental testing with a Hepatitis C Quantitative RNA assay (viral load), if clinically indicated. Performed By: #### D IFBF, AMYM3, FLDCC, ALBM3, LDMS3, GLMS3 #### [place] [address] [place], [place] Hep A Virus Ab,IgM Not detected Normal Not Detected [facility] Comment on above: Performed By: #### D IFBF, AMYM3, FLDCC, ALBM3, LDMS3, GLMS3 #### [facility] [address], [place] Hep B Core IgM Not detected Normal Not Detected [facility] Comment on above: Performed By: #### D IFBF, AMYM3, FLDCC, ALBM3, LDMS3, GLMS3 #### [facility] [address], [place] Hep B Surface Ag Not detected Normal Not Detected [facility] Comment on above: Performed By: #### D IFBF, AMYM3, FLDCC, ALBM3, LDMS3, GLMS3 #### [place] [address] [place] [address] Albumin, Body Fluidon 2021 Albumin, Misc < 1.0 Normal No Range [facility] Comment on above: Performed By: #### D IFBF, AMYM3, FLDCC, ALBM3, LDMS3, GLMS3 #### [facility] [address], [place] Amylase, Body Fluidon 2021 Amylase, Misc < 30 Normal No Range [facility] Comment on above: Performed By: #### D IFBF, AMYM3, FLDCC, ALBM3, LDMS3, GLMS3 #### [place] [address] [place], [place] Cell Count,Body Fluidon RBC Count Body Fld 143 {RBC}/uL Normal [facility] Comment on above: Performed By: #### D IFBF, AMYM3, FLDCC, ALBM3, LDMS3, GLMS3 #### [place] [address] [place], [place] Nucleated Cells 882 {cells}/uL Normal [facility] Comment on above: Performed By: #### D IFBF, AMYM3, FLDCC, ALBM3, LDMS3, GLMS3 #### [place] [address] [place], [place] Fluid Type Paracentesis Normal [facility] Comment on above: Performed By: #### D IFBF, AMYM3, FLDCC, ALBM3, LDMS3, GLMS3 #### [place] [address] [place], [place] Comp Metabolic Panelon 05-02 Calcium [Mass/Vol] 7.5 mg/dL Low 8.4-10.4 [facility] Comment on above: Order Comment: gross ly icteric Performed By: #### D IFBF, AMYM3, FLDCC, ALBM3, LDMS3, GLMS3 #### [place] [address] [place], [place] ALP [Catalytic activity/Vol] 312 U/L High 38-126 [facility] Comment on above: Order Comment: gross ly icteric Performed By: #### D IFBF, AMYM3, FLDCC, ALBM3, LDMS3, GLMS3 #### [place] [address] [place], [place] ALT [Catalytic activity/Vol] 52 U/L High 0-49 [facility] Comment on above: Order Comment: gross ly icteric Result Comment: The ALT test is performed by an updated assay method. Please note that the reference intervals have been changed and are now sex specific. Performed By: #### D IFBF, AMYM3, FLDCC, ALBM3, LDMS3, GLMS3 #### [place] [address] [place], [place] Anion gap [Moles/Vol] 9 mmol/L Normal 3-13 [facility] Comment on above: Order Comment: gross ly icteric Performed By: #### D IFBF, AMYM3, FLDCC, ALBM3, LDMS3, GLMS3 #### [place] [address] [place], [place] AST [Catalytic activity/Vol] 196 U/L High 15-46 [facility] Comment on above: Order Comment: gross ly icteric Performed By: #### D IFBF, AMYM3, FLDCC, ALBM3, LDMS3, GLMS3 #### [place] [address] [place], [place] Bilirubin [Mass/Vol] 23.5 mg/dL High 0.2-1.3 [facility] Comment on above: Order Comment: gross ly icteric Performed By: #### D IFBF, AMYM3, FLDCC, ALBM3, LDMS3, GLMS3 #### [place] [address] [place], [place] CO2 [Moles/Vol] 26 mmol/L Normal 22-30 [facility] Comment on above: Order Comment: gross ly icteric Performed By: #### D IFBF, AMYM3, FLDCC, ALBM3, LDMS3, GLMS3 #### [place] [address] [place], [place] Glucose [Mass/Vol] 123 mg/dL High 70-100 [facility] Comment on above: Order Comment: gross ly icteric Performed By: #### D IFBF, AMYM3, FLDCC, ALBM3, LDMS3, GLMS3 #### [place] [address] [place], [place] Protein [Mass/Vol] 7.1 g/dL Normal 6.3-8.2 [facility] Comment on above: Order Comment: gross ly icteric Performed By: #### D IFBF, AMYM3, FLDCC, ALBM3, LDMS3, GLMS3 #### [address] Urea nitrogen [Mass/Vol] 9 mg/dL Normal 7-17 [facility] Comment on above: Order Comment: gross ly icteric Performed By: #### D IFBF, AMYM3, FLDCC, ALBM3, LDMS3, GLMS3 #### [address] Creatinine [Mass/Vol] 0.64 mg/dL Normal 0.52-1.25 [facility] Comment on above: Order Comment: gross ly icteric Performed By: #### D IFBF, AMYM3, FLDCC, ALBM3, LDMS3, GLMS3 #### [address] eGFR OTHER > 90.0 Normal >60 [facility] Comment on above: Order Comment: gross [...] IFBF, AMYM3, FLDCC, ALBM3, LDMS3, GLMS3 #### [address] GFR/1.73 sq M.predicted among blacks MDRD (S/P/Bld) [Vol rate/Area] mL/min/{1.73_m2} Normal >60 [facility] Comment on above: Order Comment: gross ly icteric Performed By: #### D IFBF, AMYM3, FLDCC, ALBM3, LDMS3, GLMS3 #### [facility] [address], [place] Albumin [Mass/Vol] 2.4 g/dL Low 3.5-5.0 [facility] Comment on above: Order Comment: gross ly icteric Performed By: #### D IFBF, AMYM3, FLDCC, ALBM3, LDMS3, GLMS3 #### [place] [address] [place], [place] Potassium [Moles/Vol] 3.5 mmol/L Normal 3.5-5.1 [facility] Comment on above: Order Comment: gross ly icteric Performed By: #### D IFBF, AMYM3, FLDCC, ALBM3, LDMS3, GLMS3 #### [place] [address] [place], [place] Sodium [Moles/Vol] 130 mmol/L Low 135-145 [facility] Comment on above: Order Comment: gross ly icteric Performed By: #### D IFBF, AMYM3, FLDCC, ALBM3, LDMS3, GLMS3 #### [place] [address] [place], [place] Chloride [Moles/Vol] 95 mmol/L Low 98-107 [facility] Comment on above: Order Comment: gross ly icteric Performed By: #### D IFBF, AMYM3, FLDCC, ALBM3, LDMS3, GLMS3 #### [place] [address] [place], [place] Differential,Body Fluidson 0 05-02-2021 Cells Counted for Diff 200 Normal [facility] Comment on above: Performed By: #### D IFBF, AMYM3, FLDCC, ALBM3, LDMS3, GLMS3 #### [place] [address] [place] [address] Lymphocytes/100 WBC (Bld) 3 % Normal [facility] Comment on above: Performed By: #### D IFBF, AMYM3, FLDCC, ALBM3, LDMS3, GLMS3 #### [facility] [address] [place] [address] Macrophages 18 % Normal [facility] Comment on above: Performed By: #### D IFBF, AMYM3, FLDCC, ALBM3, LDMS3, GLMS3 #### [facility] [address] [place] [address] Monocytes/100 WBC (Bld) 8 % Normal [facility] Comment on above: Performed By: #### D IFBF, AMYM3, FLDCC, ALBM3, LDMS3, GLMS3 #### [facility] [address] [place] [address] Neutrophils/100 WBC (Bld) 68 % Normal [facility] Comment on above: Performed By: #### D IFBF, AMYM3, FLDCC, ALBM3, LDMS3, GLMS3 #### [facility] [address] [place] [address] Lymphocytes/100 WBC (Bld) 5 % Normal [facility] Comment on above: Performed By: #### D IFBF, AMYM3, FLDCC, ALBM3, LDMS3, GLMS3 #### [facility] [address] [place] [address] Monocytes/100 WBC (Bld) 2 % Normal [facility] Comment on above: Performed By: #### D IFBF, AMYM3, FLDCC, ALBM3, LDMS3, GLMS3 #### [facility] [address] [place] [address] Neutrophils/100 WBC (Bld) 93 % Normal [facility] Comment on above: Performed By: #### D IFBF, AMYM3, FLDCC, ALBM3, LDMS3, GLMS3 #### [facility] [address] [place] [address] Hemogram w/ Autodiffon 05-02 Erythrocyte distribution width (RBC) [Ratio] 14.3 % Normal 11.5-14.5 [facility] Comment on above: Performed By: #### D IFBF, AMYM3, FLDCC, ALBM3, LDMS3, GLMS3 #### [place] [address] [place], [place] Hematocrit (Bld) [Volume fraction] 29.0 % Low 40.0-52.0 [facility] Comment on above: Performed By: #### D IFBF, AMYM3, FLDCC, ALBM3, LDMS3, GLMS3 #### [place] [address] [place], [place] Hemoglobin (Bld) [Mass/Vol] 10.3 g/dL Low 13.0-18.0 [facility] Comment on above: Performed By: #### D IFBF, AMYM3, FLDCC, ALBM3, LDMS3, GLMS3 #### [place] [address] [place], [place] MCH (RBC) [Entitic mass] 40.3 pg High 26.0-34.0 [facility] Comment on above: Performed By: #### D IFBF, AMYM3, FLDCC, ALBM3, LDMS3, GLMS3 #### [place] [address] [place], [place] MCHC 35.3 % Normal 32.0-36.0 [facility] Comment on above: Performed By: #### D IFBF, AMYM3, FLDCC, ALBM3, LDMS3, GLMS3 #### [address] MCV (RBC) [Entitic vol] 114.0 fL High 80.0-98.0 [facility] Comment on above: Performed By: #### D IFBF, AMYM3, FLDCC, ALBM3, LDMS3, GLMS3 #### [address] Platelet mean volume (Bld) [Entitic vol] 8.3 fL Normal 7.4-10.4 [facility] Comment on above: Performed By: #### D IFBF, AMYM3, FLDCC, ALBM3, LDMS3, GLMS3 #### [place] [address] [place], [place] Platelets (Bld) [#/Vol] 58 10*3/uL Low 140-440 [facility] Comment on above: Performed By: #### D IFBF, AMYM3, FLDCC, ALBM3, LDMS3, GLMS3 #### [place] [address] [place], [place] RBC (Bld) [#/Vol] 2.55 10*6/uL Low 4.40-5.90 [facility] Comment on above: Performed By: #### D IFBF, AMYM3, FLDCC, ALBM3, LDMS3, GLMS3 #### [place] [address] [place], [place] WBC (Bld) [#/Vol] 8.1 10*3/uL Normal 3.6-10.7 [facility] Comment on above: Performed By: #### D IFBF, AMYM3, FLDCC, ALBM3, LDMS3, GLMS3 #### [place] [address] [place], [place] Manual Diffon 05-02-2021 Abs Baso Cnt 0.1 10*3/uL Normal 0.0-0.2 [facility] Comment on above: Performed By: #### D IFBF, AMYM3, FLDCC, ALBM3, LDMS3, GLMS3 #### [place] [address] [place], [place] Abs Eosin Cnt 0.2 10*3/uL Normal 0.0-0.5 [facility] Comment on above: Performed By: #### D IFBF, AMYM3, FLDCC, ALBM3, LDMS3, GLMS3 #### [address] Abs Lymph Cnt 0.2 10*3/uL Low 1.1-4.5 [facility] Comment on above: Performed By: #### D IFBF, AMYM3, FLDCC, ALBM3, LDMS3, GLMS3 #### [facility] [address] [place], [place] Abs Monocyte Cnt 0.6 10*3/uL Normal 0.2-1.1 [facility] Comment on above: Performed By: #### D IFBF, AMYM3, FLDCC, ALBM3, LDMS3, GLMS3 #### [facility] [address] [place], [place] Abs Neutrophile Cnt 7.0 10*3/uL Normal 2.2-8.2 [facility] Comment on above: Performed By: #### D IFBF, AMYM3, FLDCC, ALBM3, LDMS3, GLMS3 #### [place] [address] [place], [place] Basophils 1 % Normal 0-2 [facility] Comment on above: Performed By: #### D IFBF, AMYM3, FLDCC, ALBM3, LDMS3, GLMS3 #### [place] [address] [place] Eosinophils 2 % Normal 1-6 [facility] Comment on above: Performed By: #### D IFBF, AMYM3, FLDCC, ALBM3, LDMS3, GLMS3 #### [place] [address] [place], [place] Lymphocytes 3 % Low 20-40 [facility] Comment on above: Performed By: #### D IFBF, AMYM3, FLDCC, ALBM3, LDMS3, GLMS3 #### [place] [address] [place], [place] Monocytes 7 % Normal 2-10 [facility] Comment on above: Performed By: #### D IFBF, AMYM3, FLDCC, ALBM3, LDMS3, GLMS3 #### [address] Ovalocytes Slight Normal [facility] Comment on above: Performed By: #### D IFBF, AMYM3, FLDCC, ALBM3, LDMS3, GLMS3 #### [place] [address] [place], [place] Poikilocytosis Slight Normal [facility] Comment on above: Performed By: #### D IFBF, AMYM3, FLDCC, ALBM3, LDMS3, GLMS3 #### [facility] [address] [place], [place] RBC Morphology ABNORMAL Normal [facility] Comment on above: Performed By: #### D IFBF, AMYM3, FLDCC, ALBM3, LDMS3, GLMS3 #### [facility] [address] [place], [place] Seg Neutrophils 87 % High 40-80 [facility] Comment on above: Performed By: #### D IFBF, AMYM3, FLDCC, ALBM3, LDMS3, GLMS3 #### [facility] [address] [place], [place] Tear Drop Forms Slight Normal [facility] Comment on above: Performed By: #### D IFBF, AMYM3, FLDCC, ALBM3, LDMS3, GLMS3 #### [facility] [address] [place], [place] Bands 0 % Normal 0-3 [facility] Comment on above: Performed By: #### D IFBF, AMYM3, FLDCC, ALBM3, LDMS3, GLMS3 #### [facility] [address] [place], [place] Cells counted 100 Normal [facility] Comment on above: Performed By: #### D IFBF, AMYM3, FLDCC, ALBM3, LDMS3, GLMS3 #### [facility] [address] [place], [place] Medical Cytologyon 2 Medical Cytology [facility] N [id number] DEPARTMENT OF PATHOLOGY AND [facility] LABORATORY MEDICINE [address] [place] [address] FINAL MEDICAL CYTOLOGY REPORT NAME: FRUSHOUR, DANNY : 1980 41 Y M BILLDAKSHA NO.: [id number] LOCATION: [address] [place] [address] [facility] 1465 PROCEDURE 05/02/2021 B DATE: [...] characteristics determined by the clinical laboratories of [facility]. They have not been cleared by [...] negativity on decalcified specimens. Case reviewed at [place] [address] [place] [address]. DEPARTMENT OF PATHOLOGY AND LABORATORY MEDICINE [place], [place] [address] [email or web address] Normal [facility] Protein, Total Body Fluidon 05-02-2021 Fluid Type Paracentesis Normal [facility] Comment on above: Performed By: #### D IFBF, AMYM3, FLDCC, ALBM3, LDMS3, GLMS3 #### [facility] [address] [place], [place] Protein,Total-Body Fld < 2.0 Normal No Range [facility] Comment on above: Performed By: #### D IFBF, AMYM3, FLDCC, ALBM3, LDMS3, GLMS3 #### [facility] [address] [place], [place] STAIN GRAMon 05-02-2021 STAIN GRAM STAIN GRAM --> Statu s: F Moderate polymorphonuclear cells/lpf. No organisms seen. No organisms seen. Normal [facility] Comment on above: Performed By: #### D IFBF, AMYM3, FLDCC, ALBM3, LDMS3, GLMS3 #### [facility] [address] [place], [place] STAIN GRAM STAIN GRAM --> Statu s: F Few polymorphonuclear cells/lpf. No organisms seen. No organisms seen. Normal [facility] Comment on above: Performed By: #### C XFLD, S/GRM #### [place] [address] [place], [place] US Paracentesison 05-02-2021 US Paracentesis Patient Name: DANNY MATSON Ultrasound ACCESSION EXAM DATE/TIME PROCEDURE ORDERING PROVIDER [id number] 05/02/2021 11:18 EST US Paracentesis Initial [id number] -BRIJESH HERNANDEZ CPT code 81190 Reason For Exam (US Paracentesis Initial) ER [...] 1 percent lidocaine. Following this, a 5 Mong[place] Yueh catheter was then advanced into the [...] 14:24 EDT by ROBY MARTINES TROY Normal [facility] Albumin, Body Fluidon 2021 Albumin, Misc < 1.0 Normal No Range [facility] Comment on above: Performed By: #### D IFBF, AMYM3, FLDCC, ALBM3, LDMS3, GLMS3 #### [address] [address] Ammoniaon 05-01-2021 Ammonia (P) [Moles/Vol] 28 umol/L Normal 9-30 [facility] Comment on above: Performed By: #### D IFBF, AMYM3, FLDCC, ALBM3, LDMS3, GLMS3 #### [facility] [address] [place], [place] Amylase, Body Fluidon 2021 Amylase, Misc < 30 Normal No Range [facility] Comment on above: Performed By: #### D IFBF, AMYM3, FLDCC, ALBM3, LDMS3, GLMS3 #### [place] [address] [place], [place] Basic Metabolic Panelon Calcium [Mass/Vol] 8.3 mg/dL Low 8.4-10.4 [facility] Comment on above: Performed By: #### C /BLD #### [place] [address] [place], [place] Glucose [Mass/Vol] 115 mg/dL High 70-100 [facility] Comment on above: Performed By: #### C /BLD #### [place] [address] [place], [place] Anion gap [Moles/Vol] 11 mmol/L Normal 3-13 [facility] Comment on above: Performed By: #### C /BLD #### [place] [address] [place], [place] CO2 [Moles/Vol] 27 mmol/L Normal 22-30 [facility] Comment on above: Performed By: #### C /BLD #### [place] [address] [place], [place] Creatinine [Mass/Vol] 0.67 mg/dL Normal 0.52-1.25 [facility] Comment on above: Performed By: #### C /BLD #### [place] [address] [place], [place] eGFR OTHER > 90.0 Normal >60 [facility] Comment on above: Result Comment: KDIG [...] secretion. Performed By: #### C /BLD #### [place] [address] [place], [place] GFR/1.73 sq M.predicted among blacks MDRD (S/P/Bld) [Vol rate/Area] mL/min/{1.73_m2} Normal >60 [facility] Comment on above: Performed By: #### C /BLD #### [place] [address] [place], [place] Urea nitrogen [Mass/Vol] 9 mg/dL Normal 7-17 [facility] Comment on above: Performed By: #### C /BLD #### [place] [address] [place], [place] Chloride [Moles/Vol] 93 mmol/L Low 98-107 [facility] Comment on above: Performed By: #### C /BLD #### [address] [address] [address] [place], [place] Potassium [Moles/Vol] 3.7 mmol/L Normal 3.5-5.1 [facility] Comment on above: Performed By: #### C /BLD #### [address] [address] [place], [place] Sodium [Moles/Vol] 131 mmol/L Low 135-145 [facility] Comment on above: Performed By: #### C /BLD #### [address] [address] [address] [place], [place] CR Chest Portableon 05-01-19 22 CR Chest Portable Patient Name: DANNY MATSON Diagnostic Radiology ACCESSION EXAM DATE/TIME PROCEDURE ORDERING PROVIDER [id number] 05/01/2021 19:32 EST CR Chest Portable Jose David ALESSIO MOTLEY CPT code 01698 Reason For Exam (CR Chest Portable) dyspnea [...] Transcribed Date and Time: 05/01/2021 7:39 [address] [facility] CT Abdomen/Pelvis w/ Contras ton 05-01-2021 CT Abdomen/Pelvis w/ Contrast Patient [facility]: [id number] Computed Tomography ACCESSION EXAM DATE/TIME PROCEDURE ORDERING PROVIDER [id number] 05/01/2021 21:[address] Abdomen/Pelvis w/ IV [id number] TOLU, Contrast (IV Onl ALESSIO CPT code 55601 [id number] Reason For Exam (CT Abdomen/Pelvis w/ [...] Transcribed Date and Time: 05/01/2021 9:21 Normal [facility] Cell Count,Body Fluidon Nucleated Cells 1630 {cells}/uL Normal [facility] Comment on above: Performed By: #### D IFBF, AMYM3, FLDCC, ALBM3, LDMS3, GLMS3 #### [facility] [address] [place], [place] RBC Count Body Fld 1322 {RBC}/uL Normal [facility] Comment on above: Performed By: #### D IFBF, AMYM3, FLDCC, ALBM3, LDMS3, GLMS3 #### [facility] [address] [place] [address] Fluid Type Ascites Normal [facility] Comment on above: Performed By: #### D IFBF, AMYM3, FLDCC, ALBM3, LDMS3, GLMS3 #### [facility] [address] [place] [address] Differential,Body Fluidson 0 05-01-2021 Cells Counted for Diff 100 Normal [facility] Comment on above: Performed By: #### D IFBF, AMYM3, FLDCC, ALBM3, LDMS3, GLMS3 #### [facility] [address] [place] [address] ED Provider Noteon ED Provider Note [facility] [...] patient come from an ECF, SNF, Rehab, Long Term or other Congregate setting: No (If yes [...] 10 years. He reportedly was evaluated at [facility] 4 weeks ago and subsequently discharged. [...] day ? Drug use: Yes Types: Marijuana (Howard) ? Sexual activity: None Other Topics Concern [...] and Family: Not on file ? Attends [employer] Services: Not on file ? Active Member [...] No respirat (more content not included)... Normal [facility] ED Provider Note [facility] EMERGENCY DEPT EMERGENCY DEPARTMENT ENCOUNTER [...] (electronically sig (more content not included)... Normal [facility] ED Provider Note Emergency Department Encounter [facility] EMERGENCY DEPT Patient: Danny Bedoya : 1980 Date of Evaluation: 05/01/2021 ED Provider: BEA Jauregui CNP As the [id number], I performed a medical screening history and physical exam on this patient. HISTORY OF PRESENT ILLNESS In brief, Danny Bedoya is a 41 y.o. male that presents for abdominal pain. Patient reports having abdominal pain for past couple of weeks. Patient reported seeing provider at [facility] who reported he was "constipated". Patient also [...] [employer] BEA Jauregui CNP 05/01/212000 Normal [facility] Glucose, Body Fluidon 2021 Glucose, Body Fluid 113 mg/dL Normal No Range [facility] Comment on above: Performed By: #### D IFBF, AMYM3, FLDCC, ALBM3, LDMS3, GLMS3 #### [facility] [address] [place], [place] Hemogram w/ Autodiffon 05-01 Erythrocyte distribution width (RBC) [Ratio] 14.6 % High 11.5-14.5 [facility] Comment on above: Performed By: #### C /BLT #### [place] [address] [place], [place] Hematocrit (Bld) [Volume fraction] 34.1 % Low 40.0-52.0 [facility] Comment on above: Performed By: #### C /BLT #### [place] [address] [place], [place] Hemoglobin (Bld) [Mass/Vol] 11.9 g/dL Low 13.0-18.0 [facility] Comment on above: Performed By: #### C /BLT #### [place] [address] [place], [place] MCH (RBC) [Entitic mass] 39.7 pg High 26.0-34.0 [facility] Comment on above: Performed By: #### C /BLT #### [place] [address] [place], [place] MCHC 34.8 % Normal 32.0-36.0 [facility] Comment on above: Performed By: #### C /BLT #### [place] [address] [place], [place] MCV (RBC) [Entitic vol] 114.2 fL High 80.0-98.0 [facility] Comment on above: Performed By: #### C /BLT #### [facility] [address] [place], [place] Platelet mean volume (Bld) [Entitic vol] 8.6 fL Normal 7.4-10.4 [facility] Comment on above: Performed By: #### C /BLT #### [facility] [address] [place], [place] Platelets (Bld) [#/Vol] 82 10*3/uL Low 140-440 [facility] Comment on above: Performed By: #### C /BLT #### [place] [address] [place], [place] RBC (Bld) [#/Vol] 2.99 10*6/uL Low 4.40-5.90 [facility] Comment on above: Performed By: #### C /BLT #### [place] [address] [place], [place] WBC (Bld) [#/Vol] 11.1 10*3/uL High 3.6-10.7 [facility] Comment on above: Performed By: #### C /BLT #### [place] [address] [place], [place] Hepatic Functionon 2 ALP [Catalytic activity/Vol] 349 U/L High 38-126 [facility] Comment on above: Performed By: #### C /BLD #### [place] [address] [place], [place] ALT [Catalytic activity/Vol] 60 U/L High 0-49 [facility] Comment on above: Result Comment: The ALT test is performed by an updated assay method. Please note that the reference intervals have been changed and are now sex specific. Performed By: #### C /BLD #### [place] [address] [place], [place] AST [Catalytic activity/Vol] 218 U/L High 15-46 [facility] Comment on above: Performed By: #### C /BLD #### [place] [address] [place], [place] Bilirubin [Mass/Vol] 24.2 mg/dL High 0.2-1.3 [facility] Comment on above: Performed By: #### C /BLD #### [place] [address] [place], [place] Bilirubin.indirect [Mass/Vol] 15.1 mg/dL Critically high 0.0-0.3 [facility] Comment on above: Performed By: #### C /BLD #### [address] [address] [place], [place] Protein [Mass/Vol] 7.5 g/dL Normal 6.3-8.2 [facility] Comment on above: Performed By: #### C /BLD #### [place] [address] [place], [place] Albumin [Mass/Vol] 2.7 g/dL Low 3.5-5.0 [facility] Comment on above: Performed By: #### C /BLD #### [place] [address] [place], [place] LDH, Body Fluidon 05-01-2021 Fluid Type Acites Normal [facility] Comment on above: Performed By: #### D IFBF, AMYM3, FLDCC, ALBM3, LDMS3, GLMS3 #### [place] [address] [place], [place] LDH, Body Fluid 143 U/L Normal No Range [facility] Comment on above: Performed By: #### D IFBF, AMYM3, FLDCC, ALBM3, LDMS3, GLMS3 #### [place] [address] [place], [place] Lactic Acidon 05-01-2021 Lactate [Moles/Vol] 3.8 mmol/L Critically high 0.7-2.0 [facility] Comment on above: Result Comment: Crit ical Panic Lactate has fallen below the [facility] CCL/ED Panic Call Protocol. For [facility] ED patients ONLY the Lactate Levels greater than 2.0 and less than or equal to 4.0 mmol/L fall under the Panic Call Policy. Performed By: #### C /BLD #### [place] [address] [place], [place] Lipaseon 05-01-2021 Lipase [Catalytic activity/Vol] 446 U/L High 23-300 [facility] Comment on above: Performed By: #### C /BLD #### [place] [address] [place], [place] Manual Diffon 05-01-2021 Abs Baso Cnt 0.0 10*3/uL Normal 0.0-0.2 [facility] Comment on above: Performed By: #### C /BLT #### [place] [address] [place], [place] Abs Eosin Cnt 0.0 10*3/uL Normal 0.0-0.5 [facility] Comment on above: Performed By: #### C /BLT #### [place] [address] [place], [place] Abs Lymph Cnt 0.7 10*3/uL Low 1.1-4.5 [facility] Comment on above: Performed By: #### C /BLT #### [place] [address] [place], [place] Abs Monocyte Cnt 0.9 10*3/uL Normal 0.2-1.1 [facility] Comment on above: Performed By: #### C /BLT #### [place] [address] [place], [place] Abs Neutrophile Cnt 9.5 10*3/uL High 2.2-8.2 [facility] Comment on above: Performed By: #### C /BLT #### [place] [address] [place], [place] Anisocytosis Slight Normal [facility] Comment on above: Performed By: #### C /BLT #### [address] Bands 0 % Normal 0-3 [facility] Comment on above: Performed By: #### C /BLT #### [place] [address] [place], [place] Basophils 0 % Normal 0-2 [facility] Comment on above: Performed By: #### C /BLT #### [facility] [address] [place], [place] Cells counted 100 Normal [facility] Comment on above: Performed By: #### C /BLT #### [facility] [address] [place], [place] Eosinophils 0 % Low 1-6 [facility] Comment on above: Performed By: #### C /BLT #### [facility] [address] [place], [place] Lymphocytes 6 % Low 20-40 [facility] Comment on above: Performed By: #### C /BLT #### [facility] [address] [place], [place] Macrocytosis Slight Normal [facility] Comment on above: Performed By: #### C /BLT #### [facility] [address] [place], [place] Monocytes 8 % Normal 2-10 [facility] Comment on above: Performed By: #### C /BLT #### [facility] [address] [place], [place] Ovalocytes Slight Normal [facility] Comment on above: Performed By: #### C /BLT #### [facility] [address] [place], [place] Poikilocytosis Slight Normal [facility] Comment on above: Performed By: #### C /BLT #### [facility] [address] [place], [place] RBC Morphology ABNORMAL Normal [facility] Comment on above: Performed By: #### C /BLT #### [facility] [address] [place], [place] Seg Neutrophils 86 % High 40-80 [facility] Comment on above: Performed By: #### C /BLT #### [facility] [address] [place], [place] Medical Cytology 2 Medical Cytology [facility] N [id number] DEPARTMENT OF PATHOLOGY AND [facility] LABORATORY MEDICINE [address] [place] [id number] FINAL MEDICAL CYTOLOGY REPORT NAME: DANNY BEDOYA : 1980 41 Y M BILLDAKSHA NO.: [id number] LOCATION: [address] [place] [address] [facility] 1465 PROCEDURE 05/01/2021 B DATE: [...] characteristics determined by the clinical laboratories of [facility]. They have not been cleared by [...] negativity on decalcified specimens. Case reviewed at [facility] [address] [place] [address]. DEPARTMENT OF PATHOLOGY AND LABORATORY MEDICINE [place], [place] [email or web address] Normal [facility] NT pro BNPon 05-01-2021 Natriuretic peptide B (Bld) [Mass/Vol] 59 pg/mL Normal 0-125 [facility] Comment on above: Performed By: #### C /BLD #### [address] [place], [place] Protime AND APTTon aPTT Coag (Bld) [Time] 44.2 s High 20.0-30.5 [facility] Comment on above: Result Comment: NOTE : The therapeutic time for Heparin anticoagulation, based on Xa activity inhibition, is an APTT of 46-80 seconds. Performed By: #### D IFBF, AMYM3, FLDCC, ALBM3, LDMS3, GLMS3 #### [place] [address] [place], [place] INR 1.8 High 0.9-1.1 [facility] Comment on above: Result Comment: Herber [...] IFBF, AMYM3, FLDCC, ALBM3, LDMS3, GLMS3 #### [facility] [address] [place], [place] PT Coag (PPP) [Time] 18.2 s High 9.0-12.0 [facility] Comment on above: Result Comment: . Performed By: #### D IFBF, AMYM3, FLDCC, ALBM3, LDMS3, GLMS3 #### [facility] [address] [place], [place] SARS-CoV-2, Flu A/B and RSVo n 05-01-2021 SARS-CoV-2 (COVID-19) RNA DANA+probe Ql (Unsp spec) SARS-CoV-2 --> Status: F Not Detected. Flu A PCR --> Status: F Not Detected. Flu B PCR --> Status: F Not Detected. RSV PCR --> Status: F Not Detected. Expected Result: Not Detected _ Method: Real-time, RT-PCR This assay was developed by [employer] and distributed under an Emergency Use Authorization (EUA) granted by the FDA for the qualitative detection of nucleic acids from SARS-CoV-2, Influenza A, Influenza B, and Respiratory Syncytial Virus. Provider and patient fact sheets can be found at https://www.fda.gov/media/ 28617/download and https://www.fda.gov/media/ 07550/download. Expected Result: Not Detected _ Method: Real-time, RT-PCR This assay was developed by [employer] and distributed under an Emergency Use Authorization (EUA) granted by the FDA for the qualitative detection of nucleic acids from SARS-CoV-2, Influenza A, Influenza B, and Respiratory Syncytial Virus. Provider and patient fact sheets can be found at https://www.fda.gov/media/ 29303/download and https://www.fda.gov/media/ 63990/download. Normal [facility] Comment on above: Performed By: #### D IFBF, AMYM3, FLDCC, ALBM3, LDMS3, GLMS3 #### [facility] [address] [place], [place] Troponin Ion 05-01-2021 Troponin I.cardiac [Mass/Vol] ng/mL Normal 0.000-0.03 4 [facility] Comment on above: Result Comment: . Performed By: #### C /BLT #### [facility] [address] [place] [address] US Abdomen Limitedon 022 US Abdomen Limited Patient [facility]: [id number] Ultrasound ACCESSION EXAM DATE/TIME PROCEDURE ORDERING PROVIDER [id number] 05/01/2021 21:45 EST US Abdomen Limited [id number] -CHARANJIT QUINONEZ CPT code 99341 Reason For Exam (US Abdomen Limited) RUQ [...] Transcribed Date and Time: 05/01/2021 10:[address] [facility] Vital Signs Date Time Vital Sign Value Performing Clinician Facility 07-23-2024 08:00-0400 Body temperature 97.5 [degF] Dr. Lexi Barnes MD Work Phone: [facility] 07-23-2024 08:00-0400 Diastolic blood pressure 83 mm[Hg] Dr. Lexi Barnes MD Work Phone: [facility] 07-23-2024 08:00-0400 Heart rate 80 /min Dr. Lexi Barnes MD Work Phone: [facility] 07-23-2024 08:00-0400 Respiratory rate 16 /min Dr. Lexi Barnes MD Work Phone: [facility] 07-23-2024 08:00-0400 SaO2% (BldA) [Mass fraction] 98 % Dr. Lexi Barnes MD Work Phone: [facility] 07-23-2024 08:00-0400 Systolic blood pressure 134 mm[Hg] Dr. Lexi Barnes MD Work Phone: [facility] 07-23-2024 05:46-0400 Body mass index (BMI) [Ratio] 26.9 kg/m2 Dr. Lexi Barnes MD Work Phone: [facility] 07-23-2024 05:46-0400 Body weight [address] Lexi Barnes MD Work Phone: [facility] 07-23-2024 03:41-0400 Inhaled oxygen flow rate 2 L/min Dr. Lexi Barnes MD Work Phone: [facility] 07-22-2024 04:14-0400 Body height 162.[address] Lexi Barnes MD Work Phone: [facility] 07-22-2024 03:33-0400 Diastolic blood pressure 90 mm[Hg] Dr. Lexi Barnes MD Work Phone: [facility] 07-22-2024 03:33-0400 Heart rate 87 /min Dr. Lexi Barnes MD Work Phone: [facility] 07-22-2024 03:33-0400 Inhaled oxygen flow rate 4 L/min Dr. Lexi Barnes MD Work Phone: [facility] 07-22-2024 03:33-0400 Respiratory rate 19 /min Dr. Lexi Barnes MD Work Phone: [facility] 07-22-2024 03:33-0400 SaO2% (BldA) [Mass fraction] 93 % Dr. Lexi Barnes MD Work Phone: [facility] 07-22-2024 03:33-0400 Systolic blood pressure 143 mm[Hg] Dr. Lexi Barnes MD Work Phone: [facility] 07-22-2024 01:28-0400 Body temperature 97.9 [degF] Dr. Lexi Barnes MD Work Phone: [facility] 07-22-2024 00:51-0400 Inhaled oxygen concentration 30 % Dr. Lexi Barnes MD Work Phone: [facility] 07-22-2024 00:49-0400 Body height 162.[address] Lexi Barnes MD Work Phone: [facility] 07-22-2024 00:49-0400 Body mass index (BMI) [Ratio] 61 kg/m2 Dr. Lexi Barnes MD Work Phone: [facility] 07-22-2024 00:49-0400 Body weight 161.[address] Lexi Barnes MD Work Phone: [facility] 07-06-2024 15:24-0400 Body temperature 97.8 [degF] Dr. Lexi Barnes MD Work Phone: [facility] 07-06-2024 15:24-0400 Diastolic blood pressure 90 mm[Hg] Dr. Lexi Barnes MD Work Phone: [facility] 07-06-2024 15:24-0400 Heart rate 107 /min Dr. Lexi Barnes MD Work Phone: [facility] 07-06-2024 15:24-0400 Respiratory rate 20 /min Dr. Lexi Barnes MD Work Phone: [facility] 07-06-2024 15:24-0400 SaO2% (BldA) [Mass fraction] 91 % Dr. Lexi Barnes MD Work Phone: [facility] 07-06-2024 15:24-0400 Systolic blood pressure 151 mm[Hg] Dr. Lexi Barnes MD Work Phone: [facility] 07-06-2024 14:00-0400 Inhaled oxygen flow rate 3 L/min Dr. Lexi Barnes MD Work Phone: [facility] 07-06-2024 04:01-0400 Body mass index (BMI) [Ratio] 26.1 kg/m2 Dr. Lexi Barnes MD Work Phone: [facility] 07-06-2024 04:01-0400 Body weight 69.[address] Lexi Barnes MD Work Phone: [facility] 07-06-2024 03:53-0400 Body height 162.[address] Lexi Barnes MD Work Phone: [facility] 07-06-2024 02:33-0400 Body temperature 98.1 [degF] Dr. Lexi Barnes MD Work Phone: [facility] 07-06-2024 02:33-0400 Diastolic blood pressure 101 mm[Hg] Dr. Lexi Barnes MD Work Phone: [facility] 07-06-2024 02:33-0400 Heart rate 92 /min Dr. Lexi Barnes MD Work Phone: [facility] 07-06-2024 02:33-0400 Respiratory rate 20 /min Dr. Lexi Barnes MD Work Phone: [facility] 07-06-2024 02:33-0400 SaO2% (BldA) [Mass fraction] 97 % Dr. Lexi Barnes MD Work Phone: [facility] 07-06-2024 02:33-0400 Systolic blood pressure 144 mm[Hg] Dr. Lexi Barnes MD Work Phone: [facility] 07-05-2024 21:59-0400 Body height 165.[address] Lexi Barnes MD Work Phone: [facility] 06-11-2024 18:30-0500 Body temperature 98 [degF] Dr. Lexi Barnes MD Work Phone: [facility] 06-11-2024 18:30-0500 Diastolic blood pressure 89 mm[Hg] Dr. Lexi Barnes MD Work Phone: [facility] 06-11-2024 18:30-0500 Heart rate 104 /min Dr. Lexi Barnes MD Work Phone: [facility] 06-11-2024 18:30-0500 Respiratory rate 16 /min Dr. Lexi Barnes MD Work Phone: [facility] 06-11-2024 18:30-0500 SaO2% (BldA) [Mass fraction] 93 % Dr. Lexi Barnes MD Work Phone: [facility] 06-11-2024 18:30-0500 Systolic blood pressure 124 mm[Hg] Dr. Lexi Barnes MD Work Phone: [facility] 06-11-2024 17:22-0500 Inhaled oxygen flow rate 2 L/min Dr. Lexi Barnes MD Work Phone: [facility] 06-11-2024 16:18-0500 Body mass index (BMI) [Ratio] 25.3 kg/m2 Dr. Lexi Barnes MD Work Phone: [facility] 06-11-2024 16:18-0500 Body weight [address] Lexi Barnes MD Work Phone: [facility] 02-16-2024 16:06-0400 Body height 162.6 cm Dany Painter MD Work Phone: [facility] 02-16-2024 16:06-0400 Body mass index (BMI) [Ratio] 26.3 kg/m2 Dany Painter MD Work Phone: [facility] 02-16-2024 16:06-0400 Body temperature 98.4 [degF] Dany Painter MD Work Phone: [facility] 02-16-2024 16:06-0400 Body weight 69.49 kg Dany Painter MD Work Phone: [facility] 02-16-2024 16:06-0400 Diastolic blood pressure 94 mm[Hg] Dany Painter MD Work Phone: [facility] 02-16-2024 16:06-0400 Heart rate 80 /min Dany Painter MD Work Phone: [facility] 02-16-2024 16:06-0400 SaO2% (BldA) [Mass fraction] 99 % Dany Painter MD Work Phone: [facility] 02-16-2024 16:06-0400 Systolic blood pressure 140 mm[Hg] Dany Painter MD Work Phone: [facility] 10-25-2023 22:09-0400 Diastolic Blood Pressure Non-Invasive 109 mm[Hg] YVONNE REICHFIELD DO [facility] 10-25-2023 22:09-0400 Heart rate 86 /min YVONNE REICHFIELD DO [facility] 10-25-2023 22:09-0400 Respiratory rate 23 /min YVONNE REICHFIELD DO [facility] 10-25-2023 22:09-0400 Systolic Blood Pressure Non-Invasive 166 mm[Hg] YVONNE REICHFIELD DO [facility] 10-25-2023 21:01-0400 Heart rate 98 /min YVONNE REICHFIELD DO [facility] 10-25-2023 21:01-0400 Respiratory rate 22 /min [facility] 10-25-2023 20:35-0400 Body temperature 96.98 [degF] [facility] 10-25-2023 20:35-0400 Diastolic Blood Pressure Non-Invasive 99 mm[Hg] [facility] DO [facility] 10-25-2023 20:35-0400 Heart rate 101 /min [facility] DO [facility] 10-25-2023 20:35-0400 Respiratory rate 21 /min [facility] 10-25-2023 20:35-0400 Systolic Blood Pressure Non-Invasive 167 mm[Hg] [facility] DO [facility] 04-07-2023 14:52-0500 Body height 165.1 cm [facility] 04-07-2023 14:52-0500 Body mass index (BMI) [Ratio] 25.4 kg/m2 [facility] 04-07-2023 14:52-0500 Body temperature 97.5 [degF] [facility] 04-07-2023 14:52-0500 Body weight 69.3 kg [facility] 04-07-2023 14:52-0500 Diastolic blood pressure 95 mm[Hg] [facility] 04-07-2023 14:52-0500 Heart rate 74 /min [facility] 04-07-2023 14:52-0500 Respiratory rate 18 /min [facility] 04-07-2023 14:52-0500 SaO2% (BldA) [Mass fraction] 98 % [facility] 04-07-2023 14:52-0500 Systolic blood pressure 159 mm[Hg] [facility] 05-20-2022 10:27-0500 Body height 165.1 cm No Primary Care Physician [facility] 05-20-2022 10:27-0500 Body mass index (BMI) [Ratio] 27.1 kg/m2 No Primary Care Physician [facility] 05-20-2022 10:27-0500 Body temperature 97.5 [degF] No Primary Care Physician [facility] 05-20-2022 10:27-0500 Body weight 73.93 kg No Primary Care Physician [facility] 05-20-2022 10:27-0500 Diastolic blood pressure 82 mm[Hg] No Primary Care Physician [facility] 05-20-2022 10:27-0500 Heart rate 91 /min No Primary Care Physician [facility] 05-20-2022 10:27-0500 Respiratory rate 18 /min No Primary Care Physician [facility] 05-20-2022 10:27-0500 SaO2% (BldA) [Mass fraction] 97 % No Primary Care Physician [facility] 05-20-2022 10:27-0500 Systolic blood pressure 128 mm[Hg] No Primary Care Physician [facility] Encounters Encounter Date Encounter Type Care Provider Facility Start: 07-23-2024 Non-patient / Non-visit Dr. Rosey Daly MD -[facility] Work Phone: Start: 07-22-2024 ambulatory [...] Start: 05-10-2024 End: 05-10-2024 ambulatory LAUREN CUEVAS Facility:[id number] Start: 04-28-2024 ambulatory CHRISTIANO BROOKS Facility :[facility] Start: 03-29-2024 End: 03-29-[address] Lexi Barnes MD Work Phone: -Laboratory Work Phone: Start: 03-29-2024 End: 03-29-2024 [facility] Start: 02-16-2024 End: 02-16-2024 ambulatory DANY PAINTER Facility:[facility] Start: 02-16-2024 End: 02-16-2024 Patient encounter procedure Dany Painter MD Work Phone: General Surgery Comment on above: Non-recurrent bilate ral inguinal hernia without obstruction or gangrene (Primary Dx) Start: 02-03-2024 End: 02-03-2024 Emergency department patient visit Kirit amelia Facility:[facility] Start: 10-25-2023 End: 10-25-2023 [facility] Start: 09-15-2023 End: 09-15-2023 ambulatory [facility] Facility:[facility] Start: 06-16-2023 End: 06-26-2023 ambulatory [facility] Work Phone: Start: 06-16-2023 End: 06-26-2023 Discharged Recurring [facility] Work Phone: Start: 04-07-2023 End: 04-07-2023 Emergency department patient visit [facility] Work Phone: Start: 03-10-2023 End: 03-27-2023 ambulatory [facility] Work Phone: Start: 03-10-2023 End: 03-27-2023 Discharged Recurring [facility] Work Phone: Start: 09-18-2022 End: 09-18-2022 ambulatory [facility] Work Phone: Start: 09-18-2022 End: 09-18-2022 Discharged Recurring [facility] Start: 07-31-2022 End: 08-25-2022 Discharged Recurring [facility] Start: 07-17-2022 End: 07-26-2022 ambulatory No Primary Care Physician [facility] Work Phone: Start: 07-17-2022 End: 07-26-2022 Discharged Recurring No Primary Care Physician [facility] Start: 06-20-2022 End: 06-20-2022 ambulatory No Primary Care Physician [facility] Work Phone: Start: 06-20-2022 End: 06-20-2022 Discharged Recurring No Primary Care Physician [facility] Start: 05-30-2022 End: 05-30-2022 Patient encounter procedure No Primary Care Physician [facility] Start: 05-20-2022 End: 05-20-2022 Patient encounter procedure No Primary Care Physician [facility] Internal Medicine Procedures Date Procedure Procedure Detail [...] Author Start: 10-30-2026 Lipid panel Lipid Screening [facility] Start: 07-23-2024 Patient discharge [facility] Start: 07-22-2024 Gas panel - Arterial blood [facility] Start: 07-22-2024 Following clinical pathway protocol [facility] Start: 07-22-2024 Assessment of risk of venous thromboembolism [facility] Start: 07-22-2024 Insertion of catheter into peripheral vein [facility] Start: 07-22-2024 Measuring intake and output [facility] Start: 07-22-2024 Oxygen therapy [facility] Start: 07-22-2024 Providing care according to standard [facility] Start: 07-22-2024 Provision of activity privileges [facility] Start: 07-22-2024 Referral to service [facility] Start: 07-22-2024 Respiratory pathogens DNA and RNA panel - Respiratory specimen by DANA with probe detection [facility] Start: 07-22-2024 Verification routine [facility] Start: 07-22-2024 Admission procedure [facility] Start: 07-22-2024 End: 07-22-2024 [facility] Start: 07-22-2024 Hospital admission, emergency, from emergency room, medical nature [facility] Start: 07-22-2024 Continuous pulse oximetry [facility] Start: 07-22-2024 Dual pressure spontaneous ventilation support [facility] Start: 07-22-2024 End: 07-22-2024 [facility] Start: 07-22-2024 Inhalation therapy procedure [facility] Start: 07-06-2024 Patient discharge [facility] Start: 07-06-2024 Oxygen therapy [facility] Start: 07-06-2024 End: 07-06-2024 [facility] Start: 07-06-2024 Following clinical pathway protocol [facility] Start: 07-06-2024 Assessment of risk of venous thromboembolism [facility] Start: 07-06-2024 Incentive spirometry [facility] Start: 07-06-2024 Inhalation therapy procedure [facility] Start: 07-06-2024 Insertion of catheter into peripheral vein [facility] Start: 07-06-2024 Measuring intake and output [facility] Start: 07-06-2024 Providing care according to standard [facility] Start: 07-06-2024 Provision of activity privileges [facility] Start: 07-06-2024 Referral to service [facility] Start: 07-06-2024 Gas panel - Venous blood [facility] Start: 07-06-2024 Hospital admission, emergency, from emergency room, medical nature [facility] Start: 07-06-2024 Verification routine [facility] Start: 07-06-2024 Admission procedure [facility] Start: 06-11-2024 [facility] Start: 06-11-2024 [facility] Start: 12-28-2023 Covid-19 Vaccine ( season) Covid-19 Vaccine ( season) [facility] Start: 12-28-2023 Influenza vaccination Influenza Vaccine (#1) [facility] Start: 04-07-2023 [facility] Start: 05-05-2022 Hepatitis B Vaccine (3 of 3 - 19+ 3-dose series) Hepatitis B Vaccine (3 of 3 - 19+ 3-dose series) [facility] Start: 02-07-1999 Shingrix Vaccine (1 of 2) Shingrix Vaccine (1 of 2) [facility] Start: 02-07-1999 Urine microalbumin profile DTaP,Tdap,Td Vaccine (1 - Tdap) [facility] Start: 02-07-1998 Annual PCP Team Chronic Disease Visit Annual PCP Team Chronic Disease Visit [facility] Start: 02-07-1998 BP Controlled (<130/80) BP Controlled (<130/80) [facility] Start: 02-07-1998 HIV screening HIV Screening [facility] Start: 02-07-1998 Spirometry Spirometry [facility] Start: 02-07-1986 Pneumococcal vaccination Pneumococcal Vaccine (1 of 2 - PCV) [facility] Magnesium measurement [facility] Patient Education [facility] Work Phone: Patient referral [facility] Work Phone: Tacrolimus [Mass/vol ume] in Blood [facility] Tacrolimus [Mass/vol ume] in Blood [facility] Troponin T.cardiac [Mass/volume] in Serum or Plasma by High sensitivity method [facility] Troponin T.cardiac [Mass/volume] in Serum or Plasma by High sensitivity method [facility] Immunizations Immunization Date Immunization Notes Care Provider Fa cility 07-06-2024 influenza, seasonal, injectable, preservative free Dr. Lexi Barnes MD Work Phone: [facility] 12-29-2020 Covid (Pfizer) No Primary Ca re Physician [facility] 11-28-2020 Covid (Pfizer) No Primary Ca re Physician [facility] 02-07-2020 influenza, injectabl e, quadrivalent, preservative free [facility] 02-07-2020 influenza, seasonal, injectable No Primary Care Physician [facility] 02-07-2020 influenza, seasonal, injectable, preservative free Dr. Lexi Barnes MD Work Phone: [facility] 02-07-2020 influenza virus vaccine, unspecified formulation Dany Painter MD Work Phone: [facility] 07-19-2014 influenza, seasonal, injectable, preservative free Dr. Lexi Barnes MD Work Phone: [facility] 02-26-2013 Influenza virus vaccine No P [facility] Care Physician [facility] 07-27-2012 pneumococcal vaccine , unspecified formulation No Primary Care Physician [facility] 02-27-2008 influenza virus vaccine, unspecified formulation Dany Painter MD Work Phone: [facility] Payers Date Payer Category Payer Unknown [id number] 2024 Unknown 0 2023 Self-pay [id number] 2022 Unknown [facility] [id number] 2022-Present [phone] [address] [place] [address] Indemnity [id number] 2022 Unknown [id number] 2021 Medicaid MEDICAID OOS GEN NATALIE MEDICAID OOS GENERIC [id number] 2021-Present [phone] [address] [place] [address] Medicaid [id number] 2021 Unknown [id number] 2016 Unknown [facility] [id number] 1980 Unknown [id number] Unknown [id number] Unknown [id number] Unknown [id number] Unknown [id number] Unknown [id number] Unknown [id number] Unknown [id number] Unknown [id number] Unknown [id number] Unknown [id number] Social History Date Type Detail Facility Start: 05-20-2022 End: 04-07-2023 Tobacco smoking status NHIS Unknown if ever smoked [facility] Start: 02-06-2020 None [facility] Start: 05-24-2020 Spouse/ Signif icant Other [facility] Start: 08-10-2020 Non-smoker [facility] Start: 1980 Sex Assigned At Male [facility] Tobacco smoking status No Smokin g Status Entered [facility] Start: 06-19-2015 End: 07-22-2024 Tobacco smoking status NHIS Never smoked tobacco [facility] Start: 06-19-2015 Tobacco use and exposure Smokeless tobacco non-user [facility] Start: 02-16-2024 Alcoholic beverage intake Ex-drinker (finding) [facility] Start: 04-02-2020 End: 02-16-2024 History of Social function [facility] Start: 04-02-2020 End: 02-16-2024 Tobacco use panel [facility] National Score (1-100), lower number is lower risk Not on file [facility] Start: 02-13-2024 Alcohol Comment 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, 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 [facility] Start: 1980 Sex assigned at Not on file [facility] Start: 07-06-2024 End: 07-23-2024 Sex Male (finding) [facility] Goals Date Patient Goal Desired Activity /State Functional Status Date Assessment Result Facility 07-23-2024 Functional status Up ad ysabel [facility] Work Phone: 07-06-2024 Functional status Up ad ysabel;Bathroom Priv ilege [facility] Work Phone: 07-06-2024 Functional status Tolerates Activity Well [facility] Work Phone: 10-25-2023 Functional Status Independent [facility] 10-25-2023 Functional Status Standard Safet y ID band on, Call device within reach, Bed in low position, Wheels locked, Upper/Half-Length side-rails up, Phone within reach, personal items within reach, Bedside Cart Locked, Visitor at bedside [facility] Mental Status Date Assessment Result Facility 07-22-2024 Cognitive function Voice/Name [facility] Work Phone: 07-06-2024 Cognitive function Voice/Name [facility] Work Phone: 10-25-2023 Mental Status Orientation Oriented x 4 [facility] 10-25-2023 Mental Status [facility] 04-07-2023 Cognitive function Level Of Cons ciousness Awake;Alert;Appropriate;Follow s Commands [facility] Work Phone: Clinical Notes 05-08-2021 to 07-23-2024 Note Date & Type Note Facility 07-23-2024 Discharge summary [facility] 07-23-2024 Note [facility] Medical Records Department [address] [place] [address] Discharge Summary 07/23/24 1230 MR#: [id number] Acct: [id number] Name: DANNY BEDOYA Rep #: [id number] : 1980 44 From: Andrea Daly MD PCP: Dr. Lexi Barnes MD Status:ADM IN [facility] Providers Date of Admission: 07/22/24 Primary Care [...] complicated by Respiratory Insufficiency who re-presents to [facility] ER complaining of SOB. Mr. Bedoya reports his symptoms began approximately one day prior to admission with the sudden-onset of SOB and wheezing that progressively worsened throughout the day. 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 He also [...] states he does not have a current cardiac monitor technician so we will make a referral from [...] JVD Lungs: D (more content not included)... [facility] 07-23-2024 Discharge summary Note Date/Time July 23, 2024 9:29am [facility] Medical Records Department [address] [place] [address] Instructions for Home/Discharge Instructions 07/23/24 0913 MR#: [id number] Acct: [id number] Name: DANNY BEDOYA Rep #:[id number] : [...] - Within 1 Week Echo Michael NP, SCRAP PREPARATION SUPERVISOR-C [Med Staff - [facility] Practice Prof] - Within 1 Month Disposition Disposition (needs filled in before D/C Order can be placed): Home, Self Care 07/23/24928<Electronically signed by Andrea Daly MD>Andrea Daly MD CC: Dr. Lexi Barnes MD; Dr. Lisa Jain, DO ~ Signed [facility] Work Phone: 1(992) 418-869103-28-2025 Discharge summary [facility] Medical Records Department [address] [place] [address] Instructions for Home/Discharge Instructions 07/23/24912 MR#: [id number] Acct: [id number] Name: DANNY BEDOYA Rep #:[id number] : [...] - Within 1 Week Echo Michael NP, SCRAP PREPARATION SUPERVISOR-C [Med Staff - [facility] Practice Prof] - Within 1 Month Disposition Disposition (needs filled in before D/C Order can be placed): Home, Self Care 07/23/24 0929Nicshirlene Daly MD CC: Dr. Lexi Barnes MD; Dr. Lisa Jain DO ~ [facility]03-27-2025 History and physical note Author Lisa Wallis [facility] Note Date/Time July 22, 2024 8:1 6am [facility] Medical Records Department [address] [facility] [place] [address] H&P Exam - Hospitalist 07/22/24309 MR#: [id number] Acct: [id number] Name: DANNY BEDOYA Rep #:[id number] : 1980 44 From: Lisa Rivas DO PCP: Dr. Lexi Barnes MD Status:ADM IN [facility] [facility] CH328-0 [facility] - General General Date of Admission: 07/22/24 [...] complicated by Respiratory Insufficiency who re-presents to [facility] ER complaining of SOB. Mr. Bedoya reports his symptoms began approximately one day prior to admission with the sudden-onset of SOB and wheezing that progressively worsened throughout the day. He states his symptomsbecame worse with laying flat and he has noticed his attacked may be triggered by exposure to the oven seed cleaner used at his job. He also [...] is expected to extend beyond 2 midnights. [facility] Medical History Cirrhosis Asthma Alcohol abuse Angioedema [...] 70.1 H, Lymph % (Auto) 16.6 L, [place] % (Auto) 7.6, Eos % (Auto) 4.4, [...] of acute disease. Reading Location: [facility] Assessment & Plan Assessment/Plan (1) Asthma [...] environmental toxic exposure at work to oven seed cleaner - Admit to general medical floor. Continue IV Solu-Medrol begun in ER plus scheduled and as needed nebulizers. Start doxycycline IV plus mucolytic and probiotic. Give acetaminophen prn pain or fever. Patient counseled to avoid any contact with oven seed cleaner or fumes. 2. Acute Hypoxic Respiratory [...] 55 minutes. Charges/Coding Visit Charges Inpatient E&M: 09394 Init Hosp L3 07/22/24 0816 <Electronically signed by Lisa Jain DO> Cosigner Signature (if applicable): CC: Dr. Lexi Barnes MD; Dr. Lisa Jain DO~ Signed [facility] Work Phone: 1(636) 455-818603-27-2025 History and physical note [facility] Medical Records Department [address] [place] [address] H&P Exam - Hospitalist 07/22/24 0310 MR#: [id number] Acct: [id number] Name: DANNY BEDOYA Rep #:[id number] : 1980 44 From: Lisa Rivas DO PCP: Dr. Lexi Barnes MD Status:ADM IN Location: [facility] GX295-5 HPI - General General Date of Admission: [...] complicated by Respiratory Insufficiency who re-presents to [facility] ER complaining of SOB. Mr. Bedoya reports his symptoms began approximately one day prior to admission with the sudden-onset of SOB and wheezing that progressively worsened throughout the day. He states his symptomsbecame worse with laying flat and he has noticed his attacked may be triggered by exposure to the oven seed cleaner used at his job. He also [...] is expected to extend beyond 2 midnights. 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 Reading Location: [facility] Assessment & Plan Assessment/Plan (1) Asthma [...] environmental toxic exposure at work to oven seed cleaner - Admit to general medical floor. Continue IV Solu-Medrol begun in ER plus scheduled and as needed nebulizers. Start doxycycline IV plus mucolytic and probiotic. Give acetaminophen prn pain or fever. Patient counseled to avoid any contact with oven seed cleaner or fumes. 2. Acute Hypoxic Respiratory [...] 55 minutes. Charges/Coding Visit Charges Inpatient E&M: 41823 Init Hosp L3 07/22/24 0816 Cosigner Signature (if applicable): CC: Dr. Lexi Barnes MD; Dr. Lisa Jain, DO~ Signed [facility]03-27-2025 Discharge summary Author Natalie Jeffery [facility] Note Date/Time July 22, 2024 6:0 2am [facility] Medical Records Department [address] [place] [address] Emergency Department Summary 07/22/24 MR#: [id number] Acct: [id number] Name: DANNY BEDOYA Rep #:[id number] : 1980 44 From: Natalie Hu PCP: Dr. 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 Reading Location: [facility] Portable 1 view chest x-ray was [...] asinus tachycardia with a rate of 104. MS interval, QRS interval, and QTc intervals were all normal. Holbrook was normal. There are no acute ST [...] MD [Primary Care Provider] - Print Language: [place] Islander Disposition Disposition: Acute Care Hospital [facility] What to do if you have Problems For any increased pain, shortness of breath, bleeding, nausea or vomiting, chestpain, or any unexpected problems, contact your Primary Care Provider. Call [facility] ([phone]) or report to the closest Emergency Room. Call 911 if necessary. 07/22/24 0602 <Electronically signed by Natalie Jeffery DO> Cosigner Signature (if applicable): CC: Dr. Lexi Barnes MD ~ Signed [facility] Work Phone: 1(862) 109-344403-27-2025 Discharge summary [facility] Medical Records Department [address] [place] [address] Emergency Department Summary 07/22/24 MR#: [id number] Acct: [id number] Name: DANNY BEDOYA Rep #:[id number] : 1980 44 From: Natalie Hu PCP: Dr. 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 Reading Location: [facility] Portable 1 view chest x-ray was [...] asinus tachycardia with a rate of 104. MS interval, QRS interval, and QTc intervals were all normal. Holbrook was normal. There areno acute ST or [...] MD [Primary Care Provider] - Print Language: [place] Islander Disposition Disposition: Acute Care Hospital [facility] What to do if you have Problems For any increased pain, shortness of breath, bleeding, nausea or vomiting, chestpain, or any unexpected problems, contact your Primary Care Provider. Call [facility] ([phone]) or report tothe closest Emergency Room. Call 911 if necessary. 07/22/24 0602 Cosigner Signature (if applicable): CC: Dr. Lexi Barnes MD ~ Signed [facility]03-27-2025 Radiology Diagnostic study note [facility] Imaging Services [address] [place], [place] [address] Chest 1 View (Portable) MR#: [id number] Acct: [id number] Name: DANNY BEDOYA Rep #: [id number] : 1980 M 44 From: Benedicto Srinivasan MD PCP: Dr. Lexi Barnes MD Status: REG ER Study:Chest 1 View (Portable) Date of Exam: 07/22/24 Exam# [id number] Ordering Dr: Natalie Jeffery DO PROCEDURE: CHEST [...] No evidence of acute disease. Reading Location: [id number] CC: Dr. Lexi Barnes MD; Dr. Natalie Jeffery, DO ~ Diabetes Physician: Signed [facility]03-11-2025 Consult note [facility] Medical Records Department [address] [place] [address] Counseling Note - Pharmacy 07/06/24 1534 MR#: [id number] Acct: [id number] Name: DANNY BEDOYA Rep #:[id number] : 1980 44 From: Crow Tineo PCP: Dr. Lexi Barnes MD Status:ADM IN Y Location[place] [facility] BO909-1 Pharmacy [facility] has performed discharge medication reconciliation [...] Signature (if applicable): Date CC: ~ Signed [facility]03-11-2025 Discharge summary Author Natalie Dasilva [facility] Note Date/Time July 06, 2024 11: 33[facility] Medical Records Department [address] [place] [address] Discharge Summary 07/06/24 1113 MR#: [id number] Acct: [id number] Name: DANNY BEDOYA Rep #:[id number] : 1980 44 From: Natalie Dasilva DO PCP: Dr. Lexi Barnes MD Status:ADM IN [facility] Providers Date of Admission: 07/06/24 Primary Care [...] % (Auto) 64.3, Lymph % (Auto) 19.5, [place] % (Auto) 7.6, Eos % (Auto) 7.1 [...] 88.8 H, Lymph % (Auto) 9.2 L, [place] %(Auto) 1.1, Eos % (Auto) 0.2, Baso [...] Provider] - Charges/Coding Visit Charges OBSV E&M: 34721 Observ/hosp same date L2 (greater than 30 ) 07/06/24 1133 <Electronically signed by Natalie Dasilva DO> Cosigner Signature (if applicable): CC: Dr. Lexi Barnes MD; Dr. Natalie Dasilva DO~ Signed [facility] Work Phone: 1(893) 425-382903-11-2025 Progress note Author Natalie Dasilva [facility] Note Date/Time July 06, 2024 11: 13am [facility] Medical Records Department [address] [place] [address] Progress Note - Hospitalist 07/06/24 0825 MR#: [id number] Acct: [id number] Name: DANNY BEDOYA Rep #:[id number] : 1980 44 From: Natalie Dasilva DO PCP: Dr. Lexi Barnes MD Status:ADM IN Location: [place] [address] Reason for Visit Reason for Visit: Diagnoses [...] % (Auto) 64.3, Lymph % (Auto) 19.5, [place] % (Auto) 7.6, Eos % (Auto) 7.1 [...] 88.8 H, Lymph % (Auto) 9.2 L, [place] %(Auto) 1.1, Eos % (Auto) 0.2, Baso [...] IMPRESSION: No acute cardiopulmonary process. Reading Location: [facility] Physical Exam Const alert and no apparent [...] Cosigner Signature (if applicable): CC: ~ Signed [facility] Work Phone: 1(880) 248-492303-11-2025 Discharge summary [facility] Medical Records Department [address] [place] [address] Discharge Summary 07/06/24 1113 MR#: [id number] Acct: [id number] Name: DANNY BEDOYA Rep #:[id number] : 1980 44 From: Natalie Dasilva DO PCP: Dr. Lexi Barnes MD Status:ADM IN Location: [place] [address] Providers Date of Admission: 07/06/24 Primary Care [...] % (Auto) 64.3, Lymph % (Auto) 19.5, [place] % (Auto) 7.6, Eos % (Auto) 7.1 [...] 88.8 H, Lymph % (Auto) 9.2 L, [place] %(Auto) 1.1, Eos % (Auto) 0.2, Baso [...] IMPRESSION: No acute cardiopulmonary process. [facility] Instructions Discharge Diet: No restrictions DC [...] Provider] - Charges/Coding Visit Charges OBSV E&M: 55407 Observ/hosp same date L2 (greater than 30 ) 07/06/24 1133 Cosigner Signature (if applicable): CC: Dr. Lexi Barnes MD; Dr. Natalie Dasilva DO~ Signed [facility]03-11-2025 [facility] Medical Records Department [address] [place] [address] Discharge Summary 07/06/24 1113 MR#: [id number] Acct: [id number] Name: DANNY BEDOYA Rep #: [id number] : 1980 44 From: Natalie Dasilva DO PCP: Dr. Lexi Barnes MD Status:ADM IN Location: [facility] MO598-2 Providers Date of Admission: 07/06/24 Primary Care [...] % (Auto) 64.3, Lymph % (Auto) 19.5, [place] % (Auto) 7.6, Eos % (Auto) 7.1 [...] 88.8 H, Lymph % (Auto) 9.2 L, [place] % (Auto) 1.1, Eos % (Auto) 0.2, [...] moderate or high (more content not included)... [facility]03-11-2025 Progress note [facility] Medical Records Department [address] [place] [address] Progress Note - Hospitalist 07/06/24 0825 MR#: [id number] Acct: [id number] Name: DANNY BEDOYA Rep #:[id number] : 1980 44 From: Natalie Dasilva DO PCP: Dr. Lexi Barnes MD Status:ADM IN [facility] Reason for Visit Reason for Visit: Diagnoses [...] % (Auto) 64.3, Lymph % (Auto) 19.5, [place] % (Auto) 7.6, Eos % (Auto) 7.1 [...] 88.8 H, Lymph % (Auto) 9.2 L, [place] %(Auto) 1.1, Eos % (Auto) 0.2, Baso [...] Cosigner Signature (if applicable): CC: ~ Signed [facility]03-11-2025 History and physical note Author Lisa Wallis [facility] Note Date/Time July 06, 2024 5:5 6am [facility] Medical Records Department [address] [place] [address] H&P Exam - Hospitalist 07/06/24 0218 MR#: [id number] Acct: [id number] Name: DANNY BEDOYA Rep #:[id number] : 1980 44 From: Lisa Rivas DO PCP: Dr. Lexi Barnes MD Status:ADM IN Location: [facility] NZ647-4 [facility] - General General Date of Admission: 07/06/24 [...] allergy to lisinopril (angioedema), who presents to [facility] ER complaining of shortness of breath and [...] is expected to extend beyond 2 midnights. 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[employer] Smoking Status: Never smoker Electronic Cigarette Use: [...] % (Auto) 64.3, Lymph % (Auto) 19.5, [place] % (Auto) 7.6, Eos % (Auto) 7.1 [...] ABG Data ABG results: RUN DATE: 07/06/24 [facility], DEPARTMENT OF LABORATORIES PAGE 1 RUN TIME: 05 Specimen Inquiry [address] [place], [address] PATIENT: DANNY BEDOYA LOC: MS3 U #: [id number] : 1980 AGE/SX: 44/M FACILITY: [facility]OM: [facility] RE07/06/[address]: Anita Mccarthy STATUS:ADM IN ED: 1 DIS: ~ SPEC #: [id number] MARIVEL: 07/06/24 STATUS: COMP REQ #: [id number] RECD: 07/06/[address]: Dr. Lisa Jain, DO ENTERED: 07/06/[address]: Dr. Lexi Barnse MD ~ Test Result Flag Reference Range [...] 55 minutes. Charges/Coding Visit Charges Inpatient E&M: 51286 Init Hosp L2 07/06/24 0556 <Electronically signed by Lisa Jain DO> Cosigner Signature (if applicable): CC: Dr. Lexi Barnes MD; Dr. Lisa Jain DO~ Signed [facility] Work Phone: 1(832) 213-914703-11-2025 History and physical note [facility] Medical Records Department [address] [place] [address] H&P Exam - Hospitalist 07/06/24 0218 MR#: [id number] Acct: [id number] Name: DANNY BEDOYA Rep #:[id number] : 1980 44 From: Lias Rivas DO PCP: Dr. Lexi Barnes MD Status:ADM IN Location: [place] CG300-1 [facility] - General General Date of Admission: 07/06/24 [...] allergy to lisinopril (angioedema), who presents to [facility] ER complaining of shortness of breath and [...] is expected to extend beyond 2 midnights. 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: Never smoker Electronic Cigarette Use: [...] % (Auto) 64.3, Lymph % (Auto) 19.5, [place]au[place] % (Auto) 7.6, Eos % (Auto) 7.1 [...] ABG Data ABG results: RUN DATE: 07/06/24 [facility], DEPARTMENT OF LABORATORIES PAGE 1 RUN TIME: 555 Specimen Inquiry [address], [place], [place], [id number] PATIENT: DANNY BEDOYA [place] [facility] [place] U #: [id number] : 1980 AGE/SX: 44/M FACILITY: [facility] [place]OM: [facility] RE07/06/[address]: Anita Mccarthy STATUS:ADM IN ED: 1 DIS: ~ SPEC #: [id number] MARIVEL: 07/06/24 STATUS: COMP REQ #: [id number] RECD: 07/06/[address]: Dr. Lisa Jain, [...] 55 minutes. Charges/Coding Visit Charges Inpatient E&M: 71079 Init Hosp L2 07/06/24 0556 Cosigner Signature (if applicable): CC: Dr. Lexi Barnes MD; Dr. Lisa Jain DO~ Signed [facility]03-11-2025 Discharge summary Author [facility] Note Date/Time July 06, 2024 3:1 3am [facility] Medical Records Department [address] [place] [address] Emergency Department Summary 07/05/24 MR#: [id number] Acct: [id number] Name: DANNY BEDOYA Rep #:[id number] : 1980 44 From: Jam Jiang DO PCP: Dr. Lexi Barnes MD Status:ADM IN Location: [place] KZ602-0 HPI History of Present Illness Chief Complaint: [...] attacks and therefore comes in for evaluation. [facility] Medical History Cirrhosis Asthma Alcohol abuse [...] none current occupational status: employed current occupation: [employer] at [employer] Smoking Status: Never smoker Electronic Cigarette Use: [...] % (Auto) 64.3 Lymph % (Auto) 19.5 [place] % (Auto) 7.6 Eos % (Auto) 7.1 [...] IMPRESSION: No acute cardiopulmonary process. Reading Location: [facility] Chest x-ray as interpreted by the emergency medicine physician reveals no acute infiltrate pneumothorax or pleural effusion Discharge Plan Dx/Rx/DC Orders Clinical Impression: Asthma exacerbation, Essential hypertension, History of alcohol abuse, Liver transplant recipient Disposition Disposition: Acute Care [facility] What to do if you have Problems For any increased pain, shortness of breath, bleeding, nausea or vomiting, chestpain, or any unexpected problems, contact your Primary Care Provider. Call [facility] ([phone]) or report to the closest Emergency Room. Call 911 if necessary. 07/06/24312 <Electronically signed by Jam Jiang DO> Cosigner Signature (if applicable): CC: Dr. Lexi Barnes MD ~ Signed [facility] Work Phone: 1(773) 761-800503-11-2025 Evaluation note* Diagnosis Onset Date Resolution Status Admit Date Asthma exacerbation acute July 06, 2024 2:36am Essential hypertension acute [facility] 2024 2:36am History of alcohol abuse acute July 06, 2024 2:36am Respiratory insufficiency acute July 06, 2024 2:36am Cirrhosis inactive July 06 2:36am History of liver transplant inactive July 06, 2024 2:36am [facility] Work Phone: 1(649) 421-900303-11-2025 Evaluation note* Diagnosis Onset Date Resolution Status Admit Date Asthma exacerbation acute July 06, 2024 2:36am Essential hypertension acute [facility] 2024 2:36am History of alcohol abuse acute July 06, 2024 2:36am Respiratory insufficiency acute July 06, 2024 2:36am Cirrhosis inactive July 06 2:36am History of liver transplant inactive July 06, 2024 2:36am Acute bacterial bronchitis acute July 22, 2024 3:40am Acute hypoxic respiratory failure acute July 22, 2024 3:40am Asthma exacerbation acute July 22, 2024 3:40am Essential hypertension acute [facility] 2024 3:40am History of alcohol abuse acute July 22, 2024 3:40am Hypoxia acute July 22 3:40am Liver transplant recipient acute July 22, 2024 3:40am [facility] Work Phone: 1(878) 549-222903-11-2025 Evaluation note* Diagnosis Onset Date Resolution Status Admit Date Asthma exacerbation acute July 06, 2024 2:36am Essential hypertension acute [facility] 2024 2:36am History of alcohol abuse acute July 06, 2024 2:36am Respiratory insufficiency acute July 06, 2024 2:36am Cirrhosis inactive July 06 2:36am History of liver transplant inactive July 06, 2024 2:36am Acute bacterial bronchitis acute July 22, 2024 3:40am Acute hypoxic respiratory failure ac flori July 22, 2024 3:40am Asthma exacerbation acute July 22, 2024 3:40am Essential hypertension acute [facility] 2024 3:40am History of alcohol abuse acute July 22, 2024 3:40am Hypophosphatemia acute July 222024 3:40am Hypoxia acute July 22 3:40am Liver transplant recipient acute July 22, 2024 3:40am [facility] Work Phone: 1(533) 297-416003-11-2025 Discharge summary [facility] Medical Records Department [address] [place] [address] Emergency Department Summary 07/05/24 MR#: [id number] Acct: [id number] Name: DANNY BEDOYA Rep #:[id number] : 1980 44 From: Jam Jiang DO PCP: Dr. Lexi Barnes MD Status:ADM IN Location: [place] [id number] HPI History of Present Illness Chief Complaint: [...] and therefore comes in for evalu ation. 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 Reading Location: [facility] Chest x-ray as interpreted by the emergency medicine physician reveals no acute infiltrate pneumothorax or pleural effusion Discharge Plan Dx/Rx/DC Orders Clinical Impression: Asthma exacerbation, Essential hypertension, History of alcohol abuse, Liver transplant recipient Disposition Disposition: Acute Care [facility] What to do if you have Problems For any increased pain, shortness of breath, bleeding, nausea or vomiting, chestpain, or any unexpected problems, contact your Primary Care Provider. Call [facility] ([phone]) or report tothe closest Emergency Room. Call 911 if necessary. 07/06/24312 Cosigner Signature (if applicable): CC: Dr. Lexi Barnes MD ~ Signed [facility]03-10-2025 Radiology Diagnostic study note [facility] Imaging Services [address] [place] [address] Chest PA and Lateral MR#: [id number] Acct: [id number] Name: DANNY BEDOYA Rep #: [id number] : 1980 M 44 From: Shannon Chawla MD PCP: Dr. Lexi Barnes MD Status: REG ER Study:Chest PA and Lateral Date of Exam: 07/05/24 Exam# [id number] Ordering Dr: Erin Jiang DO PROCEDURE: CHEST PA AND LATERAL REASON FOR EXAM: DYSPNEA TECHNIQUE: Frontal and lateral views of the chest. COMPARISON: 06/11/2024 FINDINGS: The cardiothymic contour is normal. The lungs are clear. The bones are unremarkable. RAD/Chest PA and Lateral IMPRESSION: No acute cardiopulmonary process. Reading Location: [facility] CC: Dr. Lexi Barnes MD; Jam Jiang DO ~ Diabetes Physician: Signed [facility]03-10-2025 Discharge summary Author Jam Jiang [facility] Note Date/Time July 06, 2024 3:1 3am [facility] Medical Records Department [address] [place] [address] Emergency Department Summary 07/05/24 MR#: [id number] Acct: [id number] Name: DANNY BEDOYA Rep #:[id number] : 1980 44 From: Jam Jiang DO PCP: Dr. Lexi Barnes MD Status:ADM IN Location: [place] [address] HPI History of Present Illness Chief Complaint: [...] attacks and therefore comes in for evaluation. 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 Reading Location: [facility] Chest x-ray as interpreted by the emergency medicine physician reveals no acute infiltrate pneumothorax or pleural effusion Discharge Plan Dx/Rx/DC Orders Clinical Impression: Asthma exacerbation, Essential hypertension, History of alcohol abuse, Liver transplant recipient Disposition Disposition: Acute Care [facility] What to do if you have Problems For any increased pain, shortness of breath, bleeding, nausea or vomiting, chestpain, or any unexpected problems, contact your Primary Care Provider. Call [facility] ([phone]) or report to the closest Emergency Room. Call 911 if necessary. 07/06/243 <Electronically signed by Jam Jiang DO> Cosigner Signature (if applicable): CC: Dr. Lexi Barnes MD ~ Signed [facility] Work Phone: 1(112) 418-443510-22-2024 NoteHNO ID: [id number] Author: DANY PAINTER MD Service: ? Author [...] entered by the nurse and reviewed by la Nursing Notes: Lona Partida RN 02/16/2024 4:06 [...] oriented to time, quita (more content not included)...[facility]10-22-2024 History of Present illness Narrative* Dany Painter [...] interest. I will refer him up to [facility] Diagnoses: (K40.20) Non-recurrent bilateral inguinal hernia without obstruction or gangrene (primary encounter diagnosis) Dany Painter III, MD [facility] Note* Lona Partida RN - 02/16/2024 [...] N/A Last Colonoscopy: none Lona Partida RN [facility] Nurse Note* Lona Partida RN - 02/16/2024 [...] none Lona Partida RN [facility] Hospital Discharge instructions Patient Education 10/25/2023 21:31:19 [...] Lips or fingernails turning licea or blue 6225-78[address] [employer] [place] [address]. All rights reserved. This information is not intended as a substitute for professional medical care. Always follow yourhealthcare professional's instructions. Follow Up Care 10/25/2023 20:27:18 With:Go to emergency room if symptoms worsen Address:Unknown When:2-4 days With:Call Physician Referral Address:Unknown When:2-4 days [facility] 06-29-2024 Note Discharge Instructions Thank you for allowing [facility] to assist you with your healthcare needs. [...] Lips or fingernails turning licea or blue 6393-5[address] [employer]. [address] [place] [address]. All rights reserved. This information is not intended as a substitute for professional medical care. Always follow yourhealthcare professional's instructions. Additional Information VACCINATE! IT SAVES LIVES! Members of the community who have not yet received the COVID-19 vaccine and would like to receive it can visit one of [facility] vaccine clinics. There are many vaccine clinic locations within the [facility]. For locations and available times, please visit www.gettheshot.coronavirus.[place].gov/. It is important to note that some COVID mobile vaccine clinics are held outdoors and may be canceled in rainy or stormy conditions. To learn more about pediatric vaccinations (ages 5-11), we invite you to visit the [facility] webpage. https://www.[facility].org/pages/7067-Xjopa-Pjcaecfssey-Xjwbosezyc-Lbrtj-Nlw stions.htmlTo learn more about the COVID-19 vaccine, we invite you to visit the CDC website for a list of frequently asked questions. https://www.cdc.gov/coronavirus/2019-ncov/vaccines/faq.html [facility] Patient Portal Access Instructions: Stay connected with your healthcare team and access your personal medical information anytime with the [email or web address] Patient Portal. If you would like a full copy of your medical records please contact the [facility] Medical Records Department Friday through Friday between 8a.m. and 4:30p.m. Please follow the directions below to access the portal: 1.Access the email account you provided upon registration to the hospital.2.Look for an invitation email from [facility].3.Open the email and access the invitation link: Accept Invitation to [facility]4.Fill in the required newsome to create your account. Sign into [email or web address] with your username and password that you [...] you will allow to register on the [email or web address] Patient Portal for access to your information. You can also access the [email or web address] Patient Portal on the [employer] citlali. Simply click on "Health Records" under "HealthData" and then click on the [employer] logo. HOW TO SAFELY DISPOSE OF PRESCRIPTION [...] Call your local pharmacy or go to [email or web address] [email or web address] to find one close to you.3.Make use of household items: Use cat litter or old coffee grounds to dispose medications if other options arenot available. Mix your drugs with these household products, seal them in an airtight container andthrow it into the garbage. Call [facility]: [phone] to be sure your drugs can be [...] aware that I should contact my doctor. Patient/Cycle Specialist Signature: Date/Time: Relationship to Patient: Witness Name/Signature: Date/Time: [facility]06-29-2024 NoteSinus rhythm Probable left atrial enlargement Electronic Signature: YVONNE MACE 10/25/2023 22:22:35[facility] 06-29-2024 Note ORIGINAL EXAMINATION: ONE XRAY [...] Date: 10/25/2023 10:36:24 PM Ordering Provider: [facility] Discharge summary Author Justin Pinto [facility] April 07, 2023 4:08pm Note Date/Time April 07, 2023 4:08pm [facility] Medical Records Department [address] [place] [address] Emergency Department Summary 04/07/23 MR#: [id number] Acct: [id number] Name: DANNY BEDOYA Rep #:[id number] : [...] he is not getting a distended abdomen. 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 I will get him referred to [facility] surgeon but even this individual may send him to [facility]. He can also go back to [place] where his transplant was done a couple [...] your Primary Care Provider. Call [facility] ([phone]) or report to the closest Emergency Room. Call 911 if necessary. 04/07/23 1608 <Electronically signed by Justin Pinto MD> Cosigner Signature (if applicable): CC: Dr. Lexi Barnes MD ~ Signed [facility] Work Phone: 1(156) 750-546701-11-2022 NoteHospitalist Discharge Summary Danny Bedoya : 1980 [...] Clinically doing ok Discharge planning, home with [facility] Condition stable. ADULT DIET; Regular; Low Sodium [...] CHOL No results found for: PHART, PO2ART, CCT8CDT Recent Labs 05/06/21 0514 05/07/21 0453 05/08/21 [...] Radiology ACCESSION EXAM DATE/TIME PROCEDURE ORDERING PROVIDER [id number] 05/01/2021 19:32 EST CR Chest Portable 376279 -ALESSIO NOLASCO CPT code 54424 Reason For Exam (CR Chest Portable) dyspnea [...] BEDOYA Ultrasound ACCESSION (more content not included)... [facility] Crow Tineo [facility] Note Date/Time July 06, 2024 3:3 6pm [facility] Medical Records Department [address] [place] [address] Counseling Note - Pharmacy 07/06/24 1534 MR#: [id number] Acct: [id number] Name: DANNY BEDOYA Rep #:[id number] : 1980 44 From: Crow Tineo PCP: Dr. Lexi Barnes MD Status:ADM IN Y Location: [place] VI661-3 Pharmacy [facility] has performed discharge medication reconciliation [...] mg) PO DAILY #10 tabs 07/06/24 07/06/24 0776 <Electronically signed by Crow wilkinson> Date _ Crow Rogers Signature (if applicable): Date CC: ~ Signed [facility] Work Phone: Discharge summary Author Andrea Daly [facility] Note Date/Time July 23, 2024 12: 55pm [facility] Medical Records Department [facility] [place] [address] Discharge Summary 07/23/24 1230 MR#: [id number] Acct: [id number] Name: DANNY BEDOYA Rep #:[id number] : 1980 44 From: Andrea hickman MD PCP: Dr. Lexi Barnes MD Status:ADM IN Location: [address] Date of Admission: 07/22/24 Primary Care [...] complicated by Respiratory Insufficiency who re-presents to [facility] complaining of SOB. Mr. Bedoya reports his symptoms began approximately one day prior to admission with the sudden-onset of SOB and wheezing that progressively worsened throughout the day. 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 He also [...] states he does not have a current cardiac monitor technician so we will make a referral from [...] 89.2 H, Lymph % (Auto) 6.4 L, [place]au[place] %(Auto) 3.6, Eos % (Auto) 0.0, Baso [...] - Within 1 Week Echo Michael NP, SCRAP PREPARATION SUPERVISOR-C [Med Staff - [facility] Practice Prof] - Within 1 Month Disposition Disposition (needs filled in before D/C Order can be placed): Home, Self Care Charges/Coding Visit Charges Inpatient E&M: 97889 Disch Hosp >30min 07/23/24 1255 <Electronically signed by Andrea Daly MD> Cosigner Signature (if applicable): CC: Dr. Lexi Barnes MD; Dr. Andrea Daly MD~ Signed [facility] Work Phone: Evaluation + Plan note No data available for this section [facility] Evaluation note* Diagnosis Onset Date Resolution Status Essential hypertension acute Establishing care with new doctor, encounter for noneactive S/P liver transplant noneact sandra Moderate asthma without complication noneactive [facility] Work Phone: Evaluation noteNo assessment information available [facility] Work Phone: Evaluation note* Diagnosis Non-recurrent bilateral inguinal hernia without obstruction or gangrene- Primary [facility] Diagnosis Onset Date Resolution Status Admit Date Asthma exacerbation acute July 06, 2024 2:36am Essential hypertension acute [facility] 2024 2:36am History of alcohol abuse acute July 06, 2024 2:36am Respiratory insufficiency acute July 06, 2024 2:36am Cirrhosis inactive July 06 2:36am History of liver transplant inactive July 06, 2024 2:36am [facility] Work Phone: Reason for referral (narrative)No reason for referral information availableWMercy [facility] Work Phone: Summary Purpose Family History No Family History Records Found Relationship Condition Age at Onset Recorded Date/T tye father Alcoholism Unknown Asthma Unknown mother Asthma Unknown grandmother Malignant neoplasm Unknown Advance Directives No Advanced Directives Records Found Advance Directive Response Recorded Date/ Time Advance Directives No December 22, 2014 9:36pm Living Will No April 17, 2 021 9:20am Power of Fly Frame Tender No April 17, 2021 9:20am Advance Directive Response Recorded Date/ Time Advance Directives No December 22, 2014 10:36pm Living Will No April 17, 2 021 10:20am Power of Fly Frame Tender No April 17, 2021 10:20am Advance Directive Response Recorded Date/ Time Advance Directives No December 22, 2014 9:36pm Living Will No April 07, 2 023 3:58pm Power of Fly Frame Tender No April 07, 2023 3:58pm Advance Directive Response Recorded Date/ Time Living Will No April 07, 2 023 4:58pm Power of Fly Frame Tender No April 07, 2023 4:58pm Living Will No June 11, 2 025 5:22pm Power of Fly Frame Tender No June 11, 2024 5:22pm Living Will No July 05, 2024 10:12pm Power of Fly Frame Tender No July 05 10:12pm Advance Directives No December 22, 2014 10:36pm Advance Directive Response Recorded Date/ Time Living Will No April 07, 2 023 4:58pm Power of Fly Frame Tender No April 07, 2023 4:58pm Living Will No June 11, 2 025 5:22pm Power of Fly Frame Tender No June 11, 2024 5:22pm Living Will No July 06, 2024 3:55am Power of Fly Frame Tender No July 06 3:55am Advance Directives No December 22, 2014 10:36pm Advance Directive Response Recorded Date/ Time Living Will No April 07, 2 023 4:58pm Do you have a Healthcare Power of Fly Frame Tender? No April 07, 2023 4:58pm Living Will No June 11, 2 025 5:22pm Do you have a Healthcare Power of Fly Frame Tender? No June 11, 2024 5:22pm Living Will No July 22, 2024 12:54am Do you have a Healthcare Power of Fly Frame Tender? No July 22, 2024 12:54am Living Will No July 06, 2024 3:55am Do you have a Healthcare Power of Fly Frame Tender? No July 06, 2024 3:55am Advance Directives No December 22, 2014 10:36pm Advance Directive Response Recorded Date/ Time Living Will No April 07, 2 023 4:58pm Do you have a Healthcare Power of Fly Frame Tender? No April 07, 2023 4:58pm Living Will No June 11, 2 025 5:22pm Do you have a Healthcare Power of Fly Frame Tender? No June 11, 2024 5:22pm Living Will No July 22, 2024 4:14am Do you have a Healthcare Power of Fly Frame Tender? No July 22, 2024 4:14am Living Will No July 06, 2024 3:55am Do you have a Healthcare Power of Fly Frame Tender? 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 60 MINUTES Dany Painter MD [address] [place] [address] Norman Mcwilliams MD [address] [place] [address] Referral ID Status Reason Start Date Expiration Date Visits Requested Visits Authorized [id number] Pending Review PCP Requested Referral 02/15/2025 1 1 Additional Source Comments (unrecognized sect ion and content) No Status Records FoundNo Status Records FoundNo Status Records FoundNo Status Records FoundNo Status Records Found INFORMATION SOURCE (unrecogn ized section and content) DATE CREATED AUTHOR 07/26/2021 [facility] DATE CREATED AUTHOR AUTHOR'S ORGANIZ ATION 10/28/2023 [facility] ([place]) DATE CREATED AUTHOR AUTHOR'S ORGANIZ ATION 02/18/2024 [facility] DATE CREATED AUTHOR AUTHOR'S ORGANIZ ATION 05/13/2024 [facility] DATE CREATED AUTHOR AUTHOR'S ORGANIZ ATION 07/31/2024 [facility] Care Teams (unrecognized sec tion and content) [...] or prosecute any alcohol or drug abuse patient.[facility] Reason for Visit (unrecogniz ed section and content) Reason Comments Consult hernia Specialty Diagnoses / Procedures Referred By Margaret t Referred To Contact General Surgery / GENERAL SURGERY Diagnoses Hernia Groin Hernia Procedures OFFICE/OUTPATIENT NEW MODERATE MDM 45 MINUTES NEW DDI PATIENT Self Dany Painter MD [address] [place] [address] Referral ID Status Reason Start Date Expiration Date Visits Requested Visits Authorized [id number] Waiting for Response Financial Clearance Required - OON Payor OON Notification Letter Patient Cleared - Admin/Product Picker/ Director advise to proceed or did not [...] BE BASED ON THE PRIMARY CLINICAL RECORDS. [facility]. provides no warranty or guarantee of the accuracy or [phone] information in [phone] [id number]
--- OUTSIDE RECORDS SUMMARY | 2024-10-08 04:48 | XMS RPT_ITS | CCD ---
Author Organization [facility] Care Team Providers Care Chemist Helper Name Role Phone Care Physician, No Primary [...] CHRISTIANO Consulting Unavailable CECILIA, CHRISTIANO Attending Unavailable [place], Lexi Primary Care Unavailable Kirit Moreira Attending Unavailable [place], Lexi Primary Care Unavailable CECILIA, CHRISTIANO Referring Unavailable CECILIA, CHRISTIANO Consulting Unavailable CECILIA, CHRISTIANO Attending Unavailable [place], Lexi Primary Care Unavailable CECILIA, CHRISTIANO Referring Unavailable CECILIA, CHRISTIANO Consulting Unavailable CECILIA, CHRISTIANO Attending Unavailable [place], Lexi Primary Care Unavailable Lisa Jain Consulting Unavailable Lisa Jain Admitting Unavailable [place], Lexi Primary Care Unavailable Natalie Dasilva Attending Unavailable Lisa Jain Consulting Unavailable Lisa Jain Admitting Unavailable [place], Lexi Primary Care Unavailable Andrea Daly Attending Unavailable Molly, Lexi Primary Care Unavailable Douglas Cruz Attending Unavailabl e Douglas Cruz Referring Unavailabl e Allergies Allergy Classification Reported Allergen(s) Allergy Type Date of Onset Reaction(s) Facility (12 sources) Lisinopril; Translations: [LISINOPRIL] Drug Allergy 1 [facility] (1 source) Environmental allergies [Other] Propensity to adverse reactions 9 [facility] (2 sources) OTHER; Translations: [OTHER] Propensity to adverse reactions (disorder) 9 [facility] (1 source) Lisinopril Drug Allergy 5 [facility] Repository Medications Current Medications Medication Drug Class(es) [...] after a meal take 5 capsules by [facility] once daily, then take 3 capsules by [...] 2020 11:00pm August 10, 2020 9:38am lactulose 15131 mg powder for oral solution (10 sources) [...] Neutrophils (Bld) [#/Vol] 7.8 10*3/uL High 2.0-7.7 [facility] Anion gap in Serum or Plasma Ordered By: Lisa Wallis on 07-23-2024 Anion gap [Moles/Vol] 13 mmol/L 5-15 [facility] BUN/creatinine ratioOrdered By: Lisa Wallis on 07-23-2024 Urea nitrogen/Creatinine [Mass ratio] 19.9 mg/mg 10-20 [facility] Basophil percentageOrdered B y: Lisa Wallis on 07-23-2024 Basophils/100 WBC (Bld) 0.1 % 0-1 [facility] Bilirubin, totalOrdered By: Lisa Wallis on 07-23-2024 Bilirubin [Mass/Vol] 0.74 mg/dL 0.00-1.30 [facility] CBC W/Diff, Automatedon 06-27 Absolute Lymph 0.56 X10 3/uL Low 0.83-4.51 [facility] Comment on above: Performed By: #### L 501.5200, L500.4050, L100.0100 #### [facility] [address] [place], [address] Absolute Neut 7.8 X10 3/uL High 2.0-7.7 [facility] Comment on above: Performed By: #### L 501.5200, L500.4050, L100.0100 #### [facility] [address] [place], [address] Basophils/100 WBC (Bld) 0.1 % Normal 0-1 [facility] Comment on above: Performed By: #### L 501.5200, L500.4050, L100.0100 #### [facility] [address] [place], [address] Eosinophils/100 WBC (Bld) 0.0 % Normal 0-5 [facility] Comment on above: Performed By: #### L 501.5200, L500.4050, L100.0100 #### [facility] [address] [place], [address] Erythrocyte distribution width (RBC) [Ratio] 12.7 % Normal 11.6-14.6 [facility] Comment on above: Performed By: #### L 501.5200, L500.4050, L100.0100 #### [facility] [address] [place], [address] Hematocrit (Bld) [Volume fraction] 40.4 % Normal 40-54 [facility] Comment on above: Performed By: #### L 501.5200, L500.4050, L100.0100 #### [facility] [address] [place], [address] Hemoglobin (Bld) [Mass/Vol] 13.9 g/dL Normal 13.0-16.5 [facility] Comment on above: Performed By: #### L 501.5200, L500.4050, L100.0100 #### [facility] [address] [place], [address] IG% 0.700 Normal 0.0-0.9 [facility] Comment on above: Result Comment: IG% - Immature Granulocytes (promyelocytes, myelocytes and metamyelocytes) > 1% indicates that a LEFT SHIFT is Present. Performed By: #### L 501.5200, L500.4050, L100.0100 #### [facility] [address] [place], [address] Lymphocytes/100 WBC (Bld) 6.4 % Low 19-41 [facility] Comment on above: Performed By: #### L 501.5200, L500.4050, L100.0100 #### [facility] [address] [place], [address] MCH (RBC) [Entitic mass] 29.2 pg Normal 27.0-32.0 [facility] Comment on above: Performed By: #### L 501.5200, L500.4050, L100.0100 #### [facility] [address] [place], [address] MCHC (RBC) [Mass/Vol] 34.4 g/dL Normal 32-36 [facility] Comment on above: Performed By: #### L 501.5200, L500.4050, L100.0100 #### [facility] [address] [place], [address] MCV (RBC) [Entitic vol] 84.9 fL Normal 80-94 [facility] Comment on above: Performed By: #### L 501.5200, L500.4050, L100.0100 #### [facility] [address] [place], [address] Monocytes/100 WBC (Bld) 3.6 % Normal 0-10 [facility] Comment on above: Performed By: #### L 501.5200, L500.4050, L100.0100 #### [facility] [address] [place], [address] Neutrophils/100 WBC (Bld) 89.2 % High 47-70 [facility] Comment on above: Performed By: #### L 501.5200, L500.4050, L100.0100 #### [facility] [address] [place], [address] Nucleated RBC (Bld) [#/Vol] 0 10*3/uL Normal 0-5 [facility] Comment on above: Performed By: #### L 501.5200, L500.4050, L100.0100 #### [facility] [address] [place], [address] Platelet mean volume (Bld) [Entitic vol] 9.4 fL Normal 6.2-12.0 [facility] Comment on above: Performed By: #### L 501.5200, L500.4050, L100.0100 #### [facility] [address] [place], [address] Platelets (Bld) [#/Vol] 173 10*3/uL Normal 150-450 [facility] Comment on above: Performed By: #### L 501.5200, L500.4050, L100.0100 #### [facility] [address] [place], [address] RBC (Bld) [#/Vol] 4.76 10*6/uL Normal 4.6-6.2 [facility] Comment on above: Performed By: #### L 501.5200, L500.4050, L100.0100 #### [facility] [address] [place], [address] RDW SD 38.7 fl Normal 35.1-43.9 [facility] Comment on above: Performed By: #### L 501.5200, L500.4050, L100.0100 #### [facility] [address] [place], [address] WBC (Bld) [#/Vol] 8.7 10*3/uL Normal 4.4-11.0 [facility] Comment on above: Performed By: #### L 501.5200, L500.4050, L100.0100 #### [facility] [address] [place], [address] Carbon dioxide, total [Moles /volume] in Central venous bloodOrdered By: Lisa Wallis on 07-23-2024 CO2 [Moles/Vol] 16.5 mmol/L Low 21.0-32.0 [facility] Chloride assayOrdered By: Jatinder Wallis on 07-23-2024 Chloride [Moles/Vol] 110 mmol/L High 98-108 [facility] Comprehensive Metabolic Prof ilon 07-23-2024 Albumin [Mass/Vol] 4.2 g/dL Normal 3.5-5.0 [facility] Comment on above: Performed By: #### L 499.0042 #### [facility] [address] [place], [address] Albumin/Globulin [Mass ratio] 1.6 {ratio} Normal 0.9-2.4 [facility] Comment on above: Performed By: #### L 499.0042 #### [facility] [address] [place], [address] ALK PHOS 69 U/L Normal 40-129 [facility] Comment on above: Performed By: #### L 499.0042 #### [facility] [address] [place], [address] ALT [Catalytic activity/Vol] 57 U/L High <=46 [facility] Comment on above: Performed By: #### L 499.0042 #### [facility] [address] [place], [address] AST [Catalytic activity/Vol] 40 U/L High <=37 [facility] Comment on above: Performed By: #### L 499.0042 #### [facility] [address] [place], [address] Bilirubin [Mass/Vol] 0.74 mg/dL Normal 0.00-1.30 [facility] Comment on above: Performed By: #### L 499.0042 #### [facility] [address] [place], [address] BUN/CRE 19.9 RATIO Normal 10-20 [facility] Comment on above: Performed By: #### L 499.0042 #### [facility] [address] [place], [address] Calcium [Mass/Vol] 9.1 mg/dL Normal 7.6-11.0 [facility] Comment on above: Performed By: #### L 499.0042 #### [facility] [address] [place], [address] Chloride [Moles/Vol] 110 mmol/L High 98-108 [facility] Comment on above: Performed By: #### L 499.0042 #### [facility] [address] [place], [address] CO2 [Moles/Vol] 16.5 mmol/L Low 21.0-32.0 [facility] Comment on above: Performed By: #### L 499.0042 #### [facility] [address] [place], [address] Creatinine [Mass/Vol] 1.02 mg/dL Normal 0.70-1.20 [facility] Comment on above: Performed By: #### L 499.0042 #### [facility] [address] [place], [address] ECRCL 77.39 ml/min Normal 50-250 [facility] Comment on above: Performed By: #### L 499.0042 #### [facility] [address] [place], [address] GAP 13 Normal 5-15 [facility] Comment on above: Performed By: #### L 499.0042 #### [facility] [address] [place], [address] GFR/1.73 sq M.predicted among non-blacks MDRD (S/P/Bld) [Vol rate/Area] 93 mL/min/{1.73_m2} Normal >60 [facility] Comment on above: Result Comment: mL/m in/1.73m2 CKD-EPI Creatinine Equation (2020) Performed By: #### L 499.0042 #### [facility] [address] [place], [address] Globulin (S) [Mass/Vol] 2.6 g/dL Normal 2.2-4.2 [facility] Comment on above: Performed By: #### L 499.0042 #### [facility] [address] [place], [address] Glucose [Mass/Vol] 174 mg/dL High 70-99 [facility] Comment on above: Performed By: #### L 499.0042 #### [facility] [address] [place], [address] Potassium [Moles/Vol] 4.3 mmol/L Normal 3.3-5.1 [facility] Comment on above: Performed By: #### L 499.0042 #### [facility] [address] [place], [address] Sodium [Moles/Vol] 140 mmol/L Normal 133-145 [facility] Comment on above: Performed By: #### L 499.0042 #### [facility] [address] [place], [address] T PROT 6.8 g/dL Normal 5.9-8.4 [facility] Comment on above: Performed By: #### L 499.0042 #### [facility] [address] [place], [address] Urea nitrogen [Mass/Vol] 20 mg/dL High 4-19 [facility] Comment on above: Performed By: #### L 499.0042 #### [facility] [address] [place], [address] Discharge Instructionon 2 Discharge Instruction [facility] Medical Records Department [address] [place] [address] Instructions for Home/Discharge Instructions 07/23/24912 MR#: [id number] Acct: [id number] Name: DANNY BEDOYA Rep #: [id number] : 1980 44 From: Andrea Daly MD [...] - Within 1 Week Echo Michael NP, ENTERTAINMENT LAWYER-C [Med Staff - Adv Practice Prof] - Within 1 Month Disposition Disposition (needs filled in before D/C Order can be placed): Home, Self Care 07/23/24928 Andrea Daly MD CC: Dr. Lexi Barnes MD; Dr. Lisa Jain DO Signed Normal [facility] Electrocardiogram reportOrde red By: Alexy York on 07-23-2024 EKG study [facility] Cardiovascular Services [address] [place] [address] 12 Lead EKG 07/22/24 0129 MR#: [id number] Acct: [id number] Name: DANNY BEDOYA Rep #:[id number] : 1980 44 From: Alexy York MD Attending Dr: Dr. Andrea Daly MD Status: ADM IN Ordering Dr: Natalie Jeffery DO Date: 0 07/22/24 Location: [facility] Sex: M C Admitted: 07/22/24 Test Reason [...] Borderline ECG Confirmed by YANG JIANG, ALEXY ([id number]), content editor SHARON HANNAH ([id number]) on 07/23/2024 8:19:45 AM Referred By: Confirmed By: ALEXY YORK MD 07/23/24 0819 Date _ Alexy York MD CC: Dr. Lexi Barnes MD; Dr. Natalie Jeffery DO; Dr. Andrea Daly MD ~ Signed [facility] Other Phone: Eosinophil percentageOrdered By: Lisa Wallis on 07-23-2024 Eosinophils/100 WBC (Bld) 0.0 % 0-5 [facility] Erythrocyte distribution wid th ratioOrdered By: Lisa Wallis on 07-23-2024 Erythrocyte distribution width (RBC) [Ratio] 12.7 % 11.6-14.6 [facility] Erythrocyte distribution wid th standard deviationOrdered By: Lisa Wallis on 07-23-2024 Erythrocyte distribution width (RBC) [Entitic vol] 38.7 fL 35.1-43.9 [facility] Estimation of creatinine niru aranceOrdered By: Lias Wallis on 07-23-2024 Estimated Creatinine Clearance Calc 77.39 ml/min 50-250 [facility] GFR/1.73 sq M.predicted jyoti g non-blacks MDRD (S/P/Bld) [Vol rate/Area]Ordered By: Lisa Wallis on 07-23-2024 Estimated GFR (MDRD) Non-Af Amer [address] >60 [facility] Comment on above: mL/min/1.73m2 CKD-EP I Creatinine Equation (2020) Hematocrit Auto (Bld) [Volum e fraction]Ordered By: Lisa Wallis on 07-23-2024 Hematocrit (Bld) [Volume fraction] 40.4 % 40-54 [facility] Hemoglobin measurementOrdere d By: Lisa Wallis on 07-23-2024 Hemoglobin (Bld) [Mass/Vol] 13.9 g/dL 13.0-16.5 [facility] Immature granulocytes/100 WB C Auto (Bld)Ordered By: Lisa Wallis on 07-23-2024 Immature granulocytes/100 WBC (Bld) 0.700 % 0.0-0.9 [facility] Comment on above: IG% - Immature Granu locytes (promyelocytes, myelocytes and metamyelocytes) > 1% indicates that a LEFT SHIFT is Present. Laboratory - Chemistry and C hemistry - challengeOrdered By: Lisa Wallis on 07-23-2024 AST [Catalytic activity/Vol] 40 U/L High <38 [facility] Lymphocytes Auto (Unsp spec) [#/Vol]Ordered By: Lisa Wallis on 07-23-2024 Lymphocytes (Bld) [#/Vol] 0.56 10*3/uL Low 0.83-4.51 [facility] Lymphocytes/100 WBC Auto (Un sp spec)Ordered By: Lisa Wallis on 07-23-2024 Lymphocytes/100 WBC (Bld) 6.4 % Low 19-41 [facility] MCV (mean corpuscular volume ) determinationOrdered By: Lisa Wallis on 07-23-2024 MCV (RBC) [Entitic vol] 84.9 fL 80-94 [facility] Magnesiumon 07-23-2024 Magnesium [Mass/Vol] 1.9 mg/dL Normal 1.5-2.2 [facility] Comment on above: Performed By: #### L 499.0042 #### [facility] [address] [place], [address] Magnesium (Unsp spec) [Mass/ Vol]Ordered By: Andrea Daly on 07-23-2024 Magnesium [Mass/Vol] 1.9 mg/dL 1.5-2.2 [facility] Mean corpuscular hemoglobin (MCH) determinationOrdered By: Lisa Wallis on 07-23-2024 MCH (RBC) [Entitic mass] 29.2 pg 27.0-32.0 [facility] Mean corpuscular hemoglobin concentration (MCHC) determinationOrdered By: Lisa Wallis on 07-23-2024 MCHC (RBC) [Mass/Vol] 34.4 g/dL 32-36 [facility] Mean platelet volume determi nationOrdered By: Lisa Wallis on 07-23-2024 Platelet mean volume (Bld) [Entitic vol] 9.4 fL 6.2-12.0 [facility] Monocyte percentageOrdered B y: Lisa Wallis on 07-23-2024 Monocytes/100 WBC (Bld) 3.6 % 0-10 [facility] Neutrophil percentageOrdered By: Lisa Wallis on 07-23-2024 Neutrophils/100 WBC (Bld) 89.2 % High 47-70 [facility] Nucleated red blood cell per centageOrdered By: Lisa Wallis on 07-23-2024 Nucleated RBC/100 WBC (Bld) [Ratio] 0 % 0-5 [facility] Phosphoruson 07-23-2024 Phosphate [Mass/Vol] 2.6 mg/dL Low 2.7-4.5 [facility] Comment on above: Performed By: #### L 100.0100, L500.2500, L501.5200 #### [facility] [address] [place], [address] Platelet countOrdered By: Jatinder Wallis on 07-23-2024 Platelets (Bld) [#/Vol] 173 10*3/uL 150-450 [facility] Potassium (Unsp spec) [Mass/ Vol]Ordered By: Lisa Wallis on 07-23-2024 Potassium [Moles/Vol] 4.3 mmol/L 3.3-5.1 [facility] RBC Auto (Bld) [#/Vol]Ordere d By: Lisa Wallis on 07-23-2024 RBC (Bld) [#/Vol] 4.76 10*6/uL 4.6-6.2 [facility] Serum creatinine measurement (mass/volume)Ordered By: Lisa Wallis on 07-23-2024 Creatinine [Mass/Vol] 1.02 mg/dL 0.70-1.20 [facility] Serum globulin measurementOr dered By: Lisa Wallis on 07-23-2024 Globulin (S) [Mass/Vol] 2.6 g/dL 2.2-4.2 [facility] Serum glucose measurement (m ass/volume)Ordered By: Lisa Wallis on 07-23-2024 Glucose [Mass/Vol] 174 mg/dL High 70-99 [facility] Serum or plasma alanine rodas otransferase (ALT) measurementOrdered By: Lisa Wallis on 07-23-2024 ALT [Catalytic activity/Vol] 57 U/L High <47 [facility] Serum or plasma albumin ginny urement (mass/volume)Ordered By: Lisa Wallis on 07-23-2024 Albumin [Mass/Vol] 4.2 g/dL 3.5-5.0 [facility] Serum or plasma albumin/glob ulin mass ratioOrdered By: Lisa Wallis on 07-23-2024 Albumin/Globulin [Mass ratio] 1.6 {ratio} 0.9-2.4 [facility] Serum or plasma alkaline yarelis sphatase measurementOrdered By: Lisa Wallis on 07-23-2024 ALP [Catalytic activity/Vol] 69 U/L 40-129 [facility] Serum or plasma calcium ginny urement (mass/volume)Ordered By: Lisa Wallis on 07-23-2024 Calcium [Mass/Vol] 9.1 mg/dL 7.6-11.0 [facility] Serum or plasma urea nitroge n measurement (mass/volume)Ordered By: Lisa Wallis on 07-23-2024 Urea nitrogen [Mass/Vol] 20 mg/dL High 4-19 [facility] Serum phosphorus measurement Ordered By: Andrea Daly on 07-23-2024 Phosphorus Level 2.6 mg/dL Low 2.7-4.5 [facility] Sodium levelOrdered By: Fritz Wallis on 07-23-2024 Sodium [Moles/Vol] 140 mmol/L 133-145 [facility] Total proteinOrdered By: Urbano Wallis on 07-23-2024 Protein [Mass/Vol] 6.8 g/dL 5.9-8.4 [facility] White blood cell (WBC) count Ordered By: Lisa Wallis on 07-23-2024 WBC (Bld) [#/Vol] 8.7 10*3/uL 4.4-11.0 [facility] 12 Lead EKGon 07-22-2024 12 Lead EKG [facility] Cardiovascular Services [address] [place] [address] 12 Lead EKG 07/22/24 0129 MR#: [id number] Acct: [id number] Name: DANNY BEDOYA Rep #: [id number] : 1980 44 From: Alexy York MD Attending Dr: Dr. Andrea Daly MD Status : ADM IN Ordering Dr: Natalie Jeffery DO Date: 07/22/24 [place] [facility] [place] M C Admitted: 07/22/24 Test Reason [...] ECG Confirmed by ALEXY YORK MD ([id number]), content editor SHARON HANNAH ([id number]) on 07/23/2024 8:19:45 AM Referred By: Confirmed By: ALEXY YORK MD 07/23/24 0819 Date Alexy York MD CC: Dr. Lexi Barnes MD; Dr. Natalie Jeffery DO; Dr. Andrea Daly MD Signed Normal [facility] Absolute neutrophil countOrd ered By: Natalie Jeffery on 07-22-2024 Neutrophils (Bld) [#/Vol] 7.4 10*3/uL 2.0-7.7 [facility] Anion gap in Serum or Plasma Ordered By: Natalie Jeffery on 07-22-2024 Anion gap [Moles/Vol] 15 mmol/L 5-15 [facility] Arterial patency Wrist arter y --pre arterial punctureOrdered By: Lisa Wallis on 07-22-[address] [facility] Arterial patency Wrist arter y --pre arterial punctureOrdered By: Natalie Jeffery on 07-22-[address] [facility] BUN/creatinine ratioOrdered By: Natalie Jeffery on 07-22-2024 Urea nitrogen/Creatinine [Mass ratio] 19.2 mg/mg 10- [facility] Base excess Calc (BldV) [Mol es/Vol]Ordered By: Lisa Wallis on 07-22-2024 Blood Gas Base Excess -3 mmol/L Low -2-2 [facility] Base excess Calc (BldV) [Mol es/Vol]Ordered By: Natalie Jeffery on 07-22-2024 Blood Gas Base Excess 3 mmol/L High -2-2 [facility] Basic Metabolic Profile (BMP )on 07-22-2024 BUN/CRE 19.2 RATIO Normal - [facility] Comment on above: Performed By: #### L 100.0100, L500.2500 #### [facility] [address] [place], [address] Calcium [Mass/Vol] 9.6 mg/dL Normal 7.6-11.0 [facility] Comment on above: Performed By: #### L 100.0100, L500.2500 #### [facility] [address] [place], [address] Chloride [Moles/Vol] 104 mmol/L Normal 98-108 [facility] Comment on above: Performed By: #### L 100.0100, L500.2500 #### [facility] [address] [place], [address] CO2 [Moles/Vol] 21.8 mmol/L Normal 21.0-32.0 [facility] Comment on above: Performed By: #### L 100.0100, L500.2500 #### [facility] [address] [place], [address] Creatinine [Mass/Vol] 1.21 mg/dL High 0.70-1.20 [facility] Comment on above: Performed By: #### L 100.0100, L500.2500 #### [facility] [address] [place], [address] ECRCL 110.15 ml/min Normal 50-250 [facility] Comment on above: Performed By: #### L 100.0100, L500.2500 #### [facility] [address] [place], [address] GAP 15 Normal 5-15 [facility] Comment on above: Performed By: #### L 100.0100, L500.2500 #### [facility] [address] [place], [address] GFR/1.73 sq M.predicted among non-blacks MDRD (S/P/Bld) [Vol rate/Area] 76 mL/min/{1.73_m2} Normal >60 [facility] Comment on above: Result Comment: mL/m in/1.73m2 CKD-EPI Creatinine Equation (2020) Performed By: #### L 100.0100, L500.2500 #### [facility] [address] [place], [address] Glucose [Mass/Vol] 94 mg/dL Normal 70-99 [facility] Comment on above: Performed By: #### L 100.0100, L500.2500 #### [facility] [address] [place], [address] Potassium [Moles/Vol] 4.1 mmol/L Normal 3.3-5.1 [facility] Comment on above: Performed By: #### L 100.0100, L500.2500 #### [facility] [address] [place], [address] Sodium [Moles/Vol] 141 mmol/L Normal 133-145 [facility] Comment on above: Performed By: #### L 100.0100, L500.2500 #### [facility] [address] [place], [address] Urea nitrogen [Mass/Vol] 23 mg/dL High 4-19 [facility] Comment on above: Performed By: #### L 100.0100, L500.2500 #### [facility] [address] [place], [address] Basophil percentageOrdered B y: Natalie Jeffery on 07-22-2024 Basophils/100 WBC (Bld) 0.7 % 0-1 [facility] Blood Gases by CPSon 025 ALEKSANDAR TEST Positive Normal [facility] Comment on above: Performed By: #### L 499.0042 #### [facility] [address] [place], [address] Base excess Calc (Bld) [Moles/Vol] -3 mmol/L Low -2 to +2 [facility] Comment on above: Performed By: #### L 499.0042 #### [facility] [address] [place], [address] Blood Gas Type ART Normal [facility] Comment on above: Performed By: #### L 499.0042 #### [facility] [address] [place], [address] CO2 [Moles/Vol] 23 mmol/L Normal [facility] Comment on above: Performed By: #### L 499.0042 #### [facility] [address] [place], [address] [facility] Comment on above: Performed By: #### L 499.0042 #### [facility] [address] [place], [address] HCO3 (Bld) [Moles/Vol] 22.1 mmol/L Normal 22-26 [facility] Comment on above: Performed By: #### L 499.0042 #### [facility] [address] [place], [address] Normal [facility] Comment on above: Performed By: #### L 499.0042 #### [facility] [address] [place], [address] O2 Delivery Dev Cannula Normal [facility] Comment on above: Performed By: #### L 499.0042 #### [facility] [address] [place], [address] pCO2 36.7 mmHg Normal 35-45 [facility] Comment on above: Performed By: #### L 499.0042 #### [facility] [address] [place], [address] pH (Bld) 7.39 [pH] Normal 7.35-7.45 [facility] Comment on above: Performed By: #### L 499.0042 #### [facility] [address] [place], [address] PO2 76 mmHG Normal 75-100 [facility] Comment on above: Performed By: #### L 499.0042 #### [facility] [address] [place], [address] SITE L Radial Normal [facility] Comment on above: Performed By: #### L 499.0042 #### [facility] [address] [place], [address] SO2 95 Normal 95-99 [facility] Comment on above: Performed By: #### L 499.0042 #### [facility] [address] [place], [address] ALEKSANDAR TEST Positive Normal [facility] Comment on above: Performed By: #### L 499.0042 #### [facility] [address] [place], [address] Base excess Calc (Bld) [Moles/Vol] 3 mmol/L High -2 to +2 [facility] Comment on above: Performed By: #### L 499.0042 #### [facility] [address] [place], [address] Blood Gas Type ART Normal [facility] Comment on above: Performed By: #### L 499.0042 #### [facility] [address] [place], [address] CO2 [Moles/Vol] 29 mmol/L Normal [facility] Comment on above: Performed By: #### L 499.0042 #### [facility] [address] [place], [address] [facility] Comment on above: Result Comment: AVAP S 450vt 12rr 26maxP 16minP +8 30% Performed By: #### L 499.0042 #### [facility] [address] [place], [address] [facility] Comment on above: Performed By: #### L 499.0042 #### [facility] [address] [place], [address] HCO3 (Bld) [Moles/Vol] 27.6 mmol/L High 22-26 [facility] Comment on above: Performed By: #### L 499.0042 #### [facility] [address] [place], [address] Mode Not entered Normal [facility] Comment on above: Performed By: #### L 499.0042 #### [facility] [address] [place], [address] O2 Delivery Dev BiPAP Normal [facility] Comment on above: Performed By: #### L 499.0042 #### [facility] [address] [place], [address] pCO2 46.6 mmHg High 35-45 [facility] Comment on above: Performed By: #### L 499.0042 #### [facility] [address] [place], [address] pH (Bld) 7.38 [pH] Normal 7.35-7.45 [facility] Comment on above: Performed By: #### L 499.0042 #### [facility] [address] [place], [address] PO2 86 mmHG Normal 75-100 [facility] Comment on above: Performed By: #### L 499.0042 #### [facility] [address] [place], [address] SITE L Radial Normal [facility] Comment on above: Performed By: #### L 499.0042 #### [facility] [address] [place], [address] SO2 96 Normal 95-99 [facility] Comment on above: Performed By: #### L 499.0042 #### [facility] [address] [place], [address] Blood bicarbonate measuremen tOrdered By: Lisa Wallis on 07-22-2024 Blood Gas Bicarbonate Actual 22.1 mmol/L 22-26 [facility] Blood bicarbonate measuremen tOrdered By: Natalie Jeffery on 07-22-2024 Blood Gas Bicarbonate Actual 27.6 mmol/L High [facility] CBC W/Diff, Automatedon - Absolute Lymph 1.75 X10 3/uL Normal 0.83-4.51 [facility] Comment on above: Performed By: #### L 100.0100, L500.2500 #### [facility] [address] [place], [address] Absolute Neut 7.4 X10 3/uL Normal 2.0-7.7 [facility] Comment on above: Performed By: #### L 100.0100, L500.2500 #### [facility] [address] [place], [address] Basophils/100 WBC (Bld) 0.7 % Normal 0-1 [facility] Comment on above: Performed By: #### L 100.0100, L500.2500 #### [facility] [address] [place], [address] Eosinophils/100 WBC (Bld) 4.4 % Normal 0-5 [facility] Comment on above: Performed By: #### L 100.0100, L500.2500 #### [facility] [address] [place], [address] Erythrocyte distribution width (RBC) [Ratio] 12.7 % Normal 11.6-14.6 [facility] Comment on above: Performed By: #### L 100.0100, L500.2500 #### [facility] [address] [place], [address] Hematocrit (Bld) [Volume fraction] 45.2 % Normal 40-54 [facility] Comment on above: Performed By: #### L 100.0100, L500.2500 #### [facility] [address] [place], [address] Hemoglobin (Bld) [Mass/Vol] 15.9 g/dL Normal 13.0-16.5 [facility] Comment on above: Performed By: #### L 100.0100, L500.2500 #### [facility] [address] [place], [address] IG% 0.600 Normal 0.0-0.9 [facility] Comment on above: Result Comment: IG% - Immature Granulocytes (promyelocytes, myelocytes and metamyelocytes) > 1% indicates that a LEFT SHIFT is Present. Performed By: #### L 100.0100, L500.2500 #### [facility] [address] [place], [address] Lymphocytes/100 WBC (Bld) 16.6 % Low 19-41 [facility] Comment on above: Performed By: #### L 100.0100, L500.2500 #### [facility] [address] [place], [address] MCH (RBC) [Entitic mass] 29.4 pg Normal 27.0-32.0 [facility] Comment on above: Performed By: #### L 100.0100, L500.2500 #### [facility] [address] [place], [address] MCHC (RBC) [Mass/Vol] 35.2 g/dL Normal 32-36 [facility] Comment on above: Performed By: #### L 100.0100, L500.2500 #### [facility] [address] [place], [address] MCV (RBC) [Entitic vol] 83.7 fL Normal 80-94 [facility] Comment on above: Performed By: #### L 100.0100, L500.2500 #### [facility] [address] [place], [address] Monocytes/100 WBC (Bld) 7.6 % Normal 0-10 [facility] Comment on above: Performed By: #### L 100.0100, L500.2500 #### [facility] [address] [place], [address] Neutrophils/100 WBC (Bld) 70.1 % High 47-70 [facility] Comment on above: Performed By: #### L 100.0100, L500.2500 #### [facility] [address] [place], [address] Nucleated RBC (Bld) [#/Vol] 0 10*3/uL Normal 0-5 [facility] Comment on above: Performed By: #### L 100.0100, L500.2500 #### [facility] [address] [place], [address] Platelet mean volume (Bld) [Entitic vol] 9.2 fL Normal 6.2-12.0 [facility] Comment on above: Performed By: #### L 100.0100, L500.2500 #### [facility] [address] [place], [address] Platelets (Bld) [#/Vol] 155 10*3/uL Normal 150-450 [facility] Comment on above: Performed By: #### L 100.0100, L500.2500 #### [facility] [address] [place], [address] RBC (Bld) [#/Vol] 5.40 10*6/uL Normal 4.6-6.2 [facility] Comment on above: Performed By: #### L 100.0100, L500.2500 #### [facility] [address] [place], [address] RDW SD 37.9 fl Normal 35.1-43.9 [facility] Comment on above: Performed By: #### L 100.0100, L500.2500 #### [facility] [address] [place], [address] WBC (Bld) [#/Vol] 10.5 10*3/uL Normal 4.4-11.0 [facility] Comment on above: Performed By: #### L 100.0100, L500.2500 #### [facility] [address] [place], [address] Carbon dioxide, total [Moles /volume] in Central venous bloodOrdered By: Natalie Jeffery on 07-22-2024 CO2 [Moles/Vol] 21.8 mmol/L 21.0-32.0 [facility] Chest 1 View (Portable)on Chest 1 View (Portable) [facility] Imaging Services [address] [place] [address] Chest 1 View (Portable) MR#: [id number] Acct: [id number] Name: DANNY BEDOYA Rep #: [id number] : 1980 M 44 From: Nathan Srinivasan MD PCP: Dr. Lexi Barnes MD Status: [facility] Study: Chest 1 View (Portable) Date of Exam: 07/22/24 Exam# [id number] Ordering Dr: Natalie Jeffery DO PROCEDURE: CHEST [...] No evidence of acute disease. Reading Location: [id number] CC: Dr. Lexi Barnes MD; Dr. 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 Chloride assayOrdered By: Oliverio Jeffery on 07-22-2024 Chloride [Moles/Vol] 104 mmol/L 98-108 [facility] Determination of fraction of inspired oxygenOrdered By: Lisa Wallis on 07-22-2024 Blood Gas Oxygen Percent 4.0 [facility] Determination of fraction of inspired oxygenOrdered By: Natalie Jeffery on 07-22-2024 Blood Gas Oxygen Percent 30.0 [facility] Emergency Department Summary on 07-22-2024 Emergency Department Summary [facility] Medical Records Department [address] [place] [address] Emergency Department Summary 07/22/24 MR#: [id number] Acct: [id number] Name: DANNY BEDOYA Rep #: [id number] : 1980 44 From: Natalie Jeffery DO PCP: Dr. 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 Normal [facility] Eosinophil percentageOrdered By: Natalie Jeffery on 07-22-2024 Eosinophils/100 WBC (Bld) 4.4 % 0-5 [facility] Erythrocyte distribution wid th ratioOrdered By: Natalie Jeffery on 07-22-2024 Erythrocyte distribution width (RBC) [Ratio] 12.7 % 11.6-14.6 [facility] Erythrocyte distribution wid th standard deviationOrdered By: Natalie Jeffery on 07-22-2024 Erythrocyte distribution width (RBC) [Entitic vol] 37.9 fL 35.1-43.9 [facility] Estimation of creatinine niru aranceOrdered By: Natalie Jeffery on 07-22-2024 Estimated Creatinine Clearance Calc 110.15 ml/min 50-250 [facility] GFR/1.73 sq M.predicted jyoti g non-blacks MDRD (S/P/Bld) [Vol rate/Area]Ordered By: Natalie Jeffery on 07-22-2024 Estimated GFR (MDRD) Non-Af Amer [address] >60 [facility] Comment on above: mL/min/1.73m2 CKD-EP I Creatinine Equation (2020) H AND P Exam - Hospital[place] 07-22-2024 H&P Exam - Hospitalist [facility] Medical Records Department [address] [place] [address] H P Exam - Hospitalist 07/22/24 0310 MR#: [id number] Acct: [id number] Name: DANNY BEDOYA Rep #: [id number] : 1980 44 From: Lisa Jain DO PCP: Dr. Lexi Barnes MD Status:ADM IN Location: NM3 AH803-5 [facility] Date of Admission: 07/22/24 Date of Service: [...] complicated by Respiratory Insufficiency who re-presents to [facility] ER complaining of SOB. Mr. Bedoya reports his symptoms began approximately one day prior to admission with the sudden-onset of SOB and wheezing that progressively worsened throughout the day. 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 He also [...] is expected to extend beyond 2 midnights. 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 Normal [facility] Hematocrit Auto (Bld) [Volum e fraction]Ordered By: Natalie Jeffery on 07-22-2024 Hematocrit (Bld) [Volume fraction] 45.2 % 40-54 [facility] Hemoglobin measurementOrdere d By: Natalie Jeffery on 07-22-2024 Hemoglobin (Bld) [Mass/Vol] 15.9 g/dL 13.0-16.5 [facility] Immature granulocytes/100 WB C Auto (Bld)Ordered By: Natalie Jeffery on 07-22-2024 Immature granulocytes/100 WBC (Bld) 0.600 % 0.0-0.9 [facility] Comment on above: IG% - Immature Granu locytes (promyelocytes, myelocytes and metamyelocytes) > 1% indicates that a LEFT SHIFT is Present. Influenza virus A and B and SARS-CoV-2 (COVID-19) and Respiratory syncytial virus RNAOrdered By: Natalie Jeffery on 07-22-2024 SARS-CoV-2 (COVID-19) RNA DANA+probe Ql (Unsp spec) [facility] L499.0042on 07-22-2024 Trop T High Sen 12 ng/L Normal <=22 [facility] Comment on above: Performed By: #### L 499.0042 #### [facility] [address] [place], [place], [address] L499.0043on 07-22-2024 Trop T High Sen 8 ng/L Normal <=22 [facility] Comment on above: Performed By: #### L 499.0043 #### [facility] [address] [place], [place], [address] L501.4021on 07-22-2024 Trop T High Sen 10 ng/L Normal <=22 [facility] Comment on above: Performed By: #### L 499.0042 #### [facility] [address] [place], [place], [id number] Lymphocytes Auto (Unsp spec) [#/Vol]Ordered By: Natalie Jeffery on 07-22-2024 Lymphocytes (Bld) [#/Vol] 1.75 10*3/uL 0.83-4.51 [facility] Lymphocytes/100 WBC Auto (Un sp spec)Ordered By: Natalie Jeffery on 07-22-2024 Lymphocytes/100 WBC (Bld) 16.6 % Low 19-41 [facility] M100.678on 07-22-2024 M100.678 Pending SARS-CoV-2 (COVID 19) Negative INFLUENZA A Negative INFLUENZA B Negative RSV PCR Negative Normal [facility] Comment on above: Performed By: #### L 100.0100, L500.2500 #### [facility] [address] [place], [place], [id number] MCV (mean corpuscular volume ) determinationOrdered By: Natalie Jeffery on 07-22-2024 MCV (RBC) [Entitic vol] 83.7 fL 80-94 [facility] Magnesiumon 07-22-2024 Magnesium [Mass/Vol] 1.6 mg/dL Normal 1.5-2.2 [facility] Comment on above: Performed By: #### L 499.0042 #### [facility] [address] [place], [place], [address] Mean corpuscular hemoglobin (MCH) determinationOrdered By: Natalie Jeffery on 07-22-2024 MCH (RBC) [Entitic mass] 29.4 pg 27.0-32.0 [facility] Mean corpuscular hemoglobin concentration (MCHC) determinationOrdered By: Natalie Jeffery on 07-22-2024 MCHC (RBC) [Mass/Vol] 35.2 g/dL 32-36 [facility] Mean platelet volume determi nationOrdered By: Natalie Jeffery on 03-27-2025 Platelet mean volume (Bld) [Entitic vol] 9.2 fL 6.2-12.0 [facility] Monocyte percentageOrdered B y: Natalie Jeffery on 07-22-2024 Monocytes/100 WBC (Bld) 7.6 % 0-10 [facility] Neutrophil percentageOrdered By: Natalie Jeffery on 07-22-2024 Neutrophils/100 WBC (Bld) 70.1 % High 47-70 [facility] No Panel InformationOrdered By: Lisa Wallis on 07-22-2024 Blood Gas Sample Site L Radial [facility] Blood Gas Specimen Type ART [facility] Blood Gas Vent Mode Not entered [facility] Oxygen Delivery Device Cannula [facility] No Panel InformationOrdered By: Natalie Jeffery on 07-22-2024 Blood Gas Clinical Comments See comment [facility] Comment on above: AVAPS 450vt 12rr 26m axP 16minP +8 30% Blood Gas Sample Site L Radial [facility] Blood Gas Specimen Type ART [facility] Blood Gas Vent Mode Not entered [facility] Oxygen Delivery Device BiPAP [facility] Troponin T High Sensitivity 10 ng/L <22 [facility] Nucleated red blood cell per centageOrdered By: Natalie Jeffery on 07-22-2024 Nucleated RBC/100 WBC (Bld) [Ratio] 0 % 0-5 [facility] Oxygen saturation measuremen tOrdered By: Lisa Wallis on 07-22-2024 Blood Gas Oxygen Saturation 95 % 95-99 [facility] Oxygen saturation measuremen tOrdered By: Natalie Jeffery on 07-22-2024 Blood Gas Oxygen Saturation 96 % 95-99 [facility] Partial pressure of carbon d ioxide measurementOrdered By: Lisa Wallis on 07-22-2024 Arterial Blood Partial Pressure CO2 36.7 mmHg 35-45 [facility] Partial pressure of carbon d ioxide measurementOrdered By: Natalie Jeffery on 07-22-2024 Arterial Blood Partial Pressure CO2 46.6 mmHg High 35-45 [facility] Partial pressure of oxygen m easurementOrdered By: Lisa Wallis on 07-22-2024 Arterial Blood Partial Pressure O2 76 mmHG 75-100 [facility] Partial pressure of oxygen m easurementOrdered By: Natalie Jeffery on 07-22-2024 Arterial Blood Partial Pressure O2 86 mmHG 75-100 [facility] Phosphoruson 07-22-2024 Phosphate [Mass/Vol] 1.8 mg/dL Low 2.7-4.5 [facility] Comment on above: Performed By: #### L 100.0100, L500.2500, L501.5200 #### [facility] [address] [place], [address] Platelet countOrdered By: Oliverio Jeffery on 07-22-2024 Platelets (Bld) [#/Vol] 155 10*3/uL 150-450 [facility] Potassium (Unsp spec) [Mass/ Vol]Ordered By: Natalie Jeffery on 07-22-2024 Potassium [Moles/Vol] 4.1 mmol/L 3.3-5.1 [facility] RBC Auto (Bld) [#/Vol]Ordere d By: Natalie Jeffery on 07-22-2024 RBC (Bld) [#/Vol] 5.40 10*6/uL 4.6-6.2 [facility] RESPIRATORY PANEL MOLECULARo n 07-22-2024 RP PANEL ADENOVIRUS Not Detected INFLUENZA A Not Detected INFLUENZA A (SUBTYPE H1) Not Detected INFLUENZA A (SUBTYPE H3) Not Detected INFLUENZA B Not Detected HUMAN METAPHNEUMO Not Detected PARAINFLUENZA 1 Not Detected PARAINFLUENZA 2 Not Detected PARAINFLUENZA 3 Not Detected PARAINFLUENZA 4 Not Detected RHINOVIRUS Not Detected RSV A Not Detected RSV B Not Detected Normal [facility] Comment on above: Performed By: #### L 499.0042 #### [facility] [address] [place], [place], [id number] Respiratory pathogens DNA an d RNA panel DANA+probe (Resp)Ordered By: Lisa Wallis on 07-22-2024 Respiratory Panel (PCR) [facility] Serum creatinine measurement (mass/volume)Ordered By: Natalie Jeffery on 07-22-2024 Creatinine [Mass/Vol] 1.21 mg/dL High 0.70-1.20 [facility] Serum glucose measurement (m ass/volume)Ordered By: Natalie Jeffery on 07-22-2024 Glucose [Mass/Vol] 94 mg/dL 70-99 [facility] Serum or plasma calcium ginny urement (mass/volume)Ordered By: Natalie Jeffery on 07-22-2024 Calcium [Mass/Vol] 9.6 mg/dL 7.6-11.0 [facility] Serum or plasma urea nitroge n measurement (mass/volume)Ordered By: Natalie Jeffery on 07-22-2024 Urea nitrogen [Mass/Vol] 23 mg/dL High 4-19 [facility] Sodium levelOrdered By: Natalie Jeffery on 07-22-2024 Sodium [Moles/Vol] 141 mmol/L 133-145 [facility] TSH DL <= 0.005 mIU/L QnOrde red By: Lisa Wallis on 07-22-2024 Thyroid Stimulating Hormone (TSH) 0.594 uIU/mL 0.300-4.[address] [facility] Thyroid Stim Hormone (TSH)on 07-22-2024 TSH 0.594 uIU/mL Normal 0.300-4.[address] [facility] Comment on above: Performed By: #### L 100.0100, L500.2500, L501.5200 #### [facility] [address] [place], [place], [address] Total carbon dioxide measure mentOrdered By: Lisa Wallis on 07-22-2024 Blood Gas Total CO2 23 mmol/L [facility] Total carbon dioxide measure mentOrdered By: Natalie Jeffery on 07-22-2024 Blood Gas Total CO2 29 mmol/L [facility] Troponin T.cardiac High sens itivity method [Mass/Vol]Ordered By: Natalie Jeffery on 07-22-2024 Troponin T High Sensitivity 4 Hour 8 ng/L <22 [facility] Troponin T High Sensitivity 2 Hour 12 ng/L <22 [facility] White blood cell (WBC) count Ordered By: Natalie Jeffery on 07-22-2024 WBC (Bld) [#/Vol] 10.5 10*3/uL 4.4-11.0 [facility] pH (Unsp spec)Ordered By: Jatinder Wallis on 07-22-2024 Blood Gas pH 7.39 7.35-7.45 [facility] pH (Unsp spec)Ordered By: Oliverio Jeffery on 07-22-2024 Blood Gas pH 7.38 7.35-7.45 [facility] Absolute neutrophil countOrd ered By: Lisa Wallis on 07-06-2024 Neutrophils (Bld) [#/Vol] 4.9 10*3/uL 2.0-7.7 [facility] Anion gap in Serum or Plasma Ordered By: Lisa Wallis on 07-06-2024 Anion gap [Moles/Vol] 16 mmol/L High 5-15 [facility] BUN/creatinine ratioOrdered By: Lisa Wallis on 07-06-2024 Urea nitrogen/Creatinine [Mass ratio] 18.2 mg/mg 10-20 [facility] Base excess Calc (BldV) [Mol es/Vol]Ordered By: Lisa Wallis on 07-06-2024 Venous Blood Base Excess -1 mmol/L -1.0-3.5 [facility] Basophil percentageOrdered B y: Lisa Wallis on 07-06-2024 Basophils/100 WBC (Bld) 0.2 % 0-1 [facility] Bilirubin, totalOrdered By: Lisa Wallis on 07-06-2024 Bilirubin [Mass/Vol] 1.28 mg/dL 0.00-1.30 [facility] CBC W/Diff, Automatedon 06-26 Absolute Lymph 0.51 X10 3/uL Low 0.83-4.51 [facility] Comment on above: Performed By: #### L 100.0100, L500.2500, L501.5200 #### [facility] [address] [place], [address] Absolute Neut 4.9 X10 3/uL Normal 2.0-7.7 [facility] Comment on above: Performed By: #### L 100.0100, L500.2500, L501.5200 #### [facility] [address] [place], [address] Basophils/100 WBC (Bld) 0.2 % Normal 0-1 [facility] Comment on above: Performed By: #### L 100.0100, L500.2500, L501.5200 #### [facility] [address] [place], [address] Eosinophils/100 WBC (Bld) 0.2 % Normal 0-5 [facility] Comment on above: Performed By: #### L 100.0100, L500.2500, L501.5200 #### [facility] [address] [place], [address] Erythrocyte distribution width (RBC) [Ratio] 12.6 % Normal 11.6-14.6 [facility] Comment on above: Performed By: #### L 100.0100, L500.2500, L501.5200 #### [facility] [address] [place], [address] Hematocrit (Bld) [Volume fraction] 46.1 % Normal 40-54 [facility] Comment on above: Performed By: #### L 100.0100, L500.2500, L501.5200 #### [facility] [address] [place], [address] Hemoglobin (Bld) [Mass/Vol] 15.9 g/dL Normal 13.0-16.5 [facility] Comment on above: Performed By: #### L 100.0100, L500.2500, L501.5200 #### [facility] [address] [place], [address] IG% 0.500 Normal 0.0-0.9 [facility] Comment on above: Result Comment: IG% - Immature Granulocytes (promyelocytes, myelocytes and metamyelocytes) > 1% indicates that a LEFT SHIFT is Present. Performed By: #### L 100.0100, L500.2500, L501.5200 #### [facility] [address] [place], [address] Lymphocytes/100 WBC (Bld) 9.2 % Low 19-41 [facility] Comment on above: Performed By: #### L 100.0100, L500.2500, L501.5200 #### [facility] [address] [place], [address] MCH (RBC) [Entitic mass] 29.2 pg Normal 27.0-32.0 [facility] Comment on above: Performed By: #### L 100.0100, L500.2500, L501.5200 #### [facility] [address] [place], [address] MCHC (RBC) [Mass/Vol] 34.5 g/dL Normal 32-36 [facility] Comment on above: Performed By: #### L 100.0100, L500.2500, L501.5200 #### [facility] [address] [place], [address] MCV (RBC) [Entitic vol] 84.6 fL Normal 80-94 [facility] Comment on above: Performed By: #### L 100.0100, L500.2500, L501.5200 #### [facility] [address] [place], [address] Monocytes/100 WBC (Bld) 1.1 % Normal 0-10 [facility] Comment on above: Performed By: #### L 100.0100, L500.2500, L501.5200 #### [facility] [address] [place], [address] Neutrophils/100 WBC (Bld) 88.8 % High 47-70 [facility] Comment on above: Performed By: #### L 100.0100, L500.2500, L501.5200 #### [facility] [address] [place], [address] Nucleated RBC (Bld) [#/Vol] 0 10*3/uL Normal 0-5 [facility] Comment on above: Performed By: #### L 100.0100, L500.2500, L501.5200 #### [facility] [address] [place], [address] Platelet mean volume (Bld) [Entitic vol] 9.1 fL Normal 6.2-12.0 [facility] Comment on above: Performed By: #### L 100.0100, L500.2500, L501.5200 #### [facility] [address] [place], [address] Platelets (Bld) [#/Vol] 203 10*3/uL Normal 150-450 [facility] Comment on above: Performed By: #### L 100.0100, L500.2500, L501.5200 #### [facility] [address] [place], [address] RBC (Bld) [#/Vol] 5.45 10*6/uL Normal 4.6-6.2 [facility] Comment on above: Performed By: #### L 100.0100, L500.2500, L501.5200 #### [facility] [address] [place], [address] RDW SD 38.1 fl Normal 35.1-43.9 [facility] Comment on above: Performed By: #### L 100.0100, L500.2500, L501.5200 #### [facility] [address] [place], [address] WBC (Bld) [#/Vol] 5.5 10*3/uL Normal 4.4-11.0 [facility] Comment on above: Performed By: #### L 100.0100, L500.2500, L501.5200 #### [facility] [address] [place], [address] CO2 (BldV) [Moles/Vol]Ordere d By: Lisa Wallis on 07-06-2024 CO2 [Moles/Vol] 24 mmol/L 23-33 [facility] CO2 (BldV) [Partial pressure ]Ordered By: Lisa Wallis on 07-06-2024 Bed Mix Venous Bld PCO2 at Pat Temp 36.2 mmHg Low 41-51 [facility] Carbon dioxide, total [Moles /volume] in Central venous bloodOrdered By: Lisa Wallis on 07-06-2024 CO2 [Moles/Vol] 17.9 mmol/L Low 21.0-32.0 [facility] Chloride assayOrdered By: Jatinder Wallis on 07-06-2024 Chloride [Moles/Vol] 103 mmol/L 98-108 [facility] Comprehensive Metabolic Prof ilon 07-06-2024 Albumin [Mass/Vol] 4.6 g/dL Normal 3.5-5.0 [facility] Comment on above: Performed By: #### L 100.0100, L500.2500, L501.5200 #### [facility] [address] [place], [address] Albumin/Globulin [Mass ratio] 1.5 {ratio} Normal 0.9-2.4 [facility] Comment on above: Performed By: #### L 100.0100, L500.2500, L501.5200 #### [facility] [address] [place], [address] ALK PHOS 81 U/L Normal 40-129 [facility] Comment on above: Performed By: #### L 100.0100, L500.2500, L501.5200 #### [facility] [address] [place], [address] ALT [Catalytic activity/Vol] 23 U/L Normal <=46 [facility] Comment on above: Performed By: #### L 100.0100, L500.2500, L501.5200 #### [facility] [address] [place], [address] AST [Catalytic activity/Vol] 28 U/L Normal <=37 [facility] Comment on above: Performed By: #### L 100.0100, L500.2500, L501.5200 #### [facility] [address] [place], [address] Bilirubin [Mass/Vol] 1.28 mg/dL Normal 0.00-1.30 [facility] Comment on above: Performed By: #### L 100.0100, L500.2500, L501.5200 #### [facility] [address] [place], [address] BUN/CRE 18.2 RATIO Normal 10-20 [facility] Comment on above: Performed By: #### L 100.0100, L500.2500, L501.5200 #### [facility] [address] [place], [address] Calcium [Mass/Vol] 9.5 mg/dL Normal 7.6-11.0 [facility] Comment on above: Performed By: #### L 100.0100, L500.2500, L501.5200 #### [facility] [address] [place], [address] Chloride [Moles/Vol] 103 mmol/L Normal 98-108 [facility] Comment on above: Performed By: #### L 100.0100, L500.2500, L501.5200 #### [facility] [address] [place], [address] CO2 [Moles/Vol] 17.9 mmol/L Low 21.0-32.0 [facility] Comment on above: Performed By: #### L 100.0100, L500.2500, L501.5200 #### [facility] [address] [place], [address] Creatinine [Mass/Vol] 1.01 mg/dL Normal 0.70-1.20 [facility] Comment on above: Performed By: #### L 100.0100, L500.2500, L501.5200 #### [facility] [address] [place], [address] ECRCL 78.15 ml/min Normal 50-250 [facility] Comment on above: Performed By: #### L 100.0100, L500.2500, L501.5200 #### [facility] [address] [place], [address] GAP 16 High 5-15 [facility] Comment on above: Performed By: #### L 100.0100, L500.2500, L501.5200 #### [facility] [address] [place], [address] GFR/1.73 sq M.predicted among non-blacks MDRD (S/P/Bld) [Vol rate/Area] 94 mL/min/{1.73_m2} Normal >60 [facility] Comment on above: Result Comment: mL/m in/1.73m2 CKD-EPI Creatinine Equation (2020) Performed By: #### L 100.0100, L500.2500, L501.5200 #### [facility] [address] [place], [address] Globulin (S) [Mass/Vol] 3.0 g/dL Normal 2.2-4.2 [facility] Comment on above: Performed By: #### L 100.0100, L500.2500, L501.5200 #### [facility] [address] [place], [address] Glucose [Mass/Vol] 169 mg/dL High 70-99 [facility] Comment on above: Performed By: #### L 100.0100, L500.2500, L501.5200 #### [facility] [address] [place], [address] Potassium [Moles/Vol] 4.0 mmol/L Normal 3.3-5.1 [facility] Comment on above: Performed By: #### L 100.0100, L500.2500, L501.5200 #### [facility] [address] [place], [address] Sodium [Moles/Vol] 136 mmol/L Normal 133-145 [facility] Comment on above: Performed By: #### L 100.0100, L500.2500, L501.5200 #### [facility] [address] [place], [address] T PROT 7.6 g/dL Normal 5.9-8.4 [facility] Comment on above: Performed By: #### L 100.0100, L500.2500, L501.5200 #### [facility] [address] [place], [address] Urea nitrogen [Mass/Vol] 18 mg/dL Normal 4-19 [facility] Comment on above: Performed By: #### L 100.0100, L500.2500, L501.5200 #### [facility] [address] [place], [address] Determination of fraction of inspired oxygenOrdered By: Lisa Wallis on 07-06-2024 Blood Gas Oxygen Percent 2.0 [facility] Eosinophil percentageOrdered By: Lisa Wallis on 07-06-2024 Eosinophils/100 WBC (Bld) 0.2 % 0-5 [facility] Erythrocyte distribution wid th ratioOrdered By: Lisa Wallis on 07-06-2024 Erythrocyte distribution width (RBC) [Ratio] 12.6 % 11.6-14.6 [facility] Erythrocyte distribution wid th standard deviationOrdered By: Lisa Wallis on 07-06-2024 Erythrocyte distribution width (RBC) [Entitic vol] 38.1 fL 35.1-43.9 [facility] Estimation of creatinine niru aranceOrdered By: Lisa Wallis on 07-06-2024 Estimated Creatinine Clearance Calc 78.15 ml/min 50-250 [facility] GFR/1.73 sq M.predicted jyoti g non-blacks MDRD (S/P/Bld) [Vol rate/Area]Ordered By: Lisa Wallis on 07-06-2024 Estimated GFR (MDRD) Non-Af Amer [address] >60 [facility] Comment on above: mL/min/1.73m2 CKD-EP I Creatinine Equation (2020) H AND P Exam - Hospital[facility] 07-06-2024 H&P Exam - Hospitalist [facility] Medical Records Department [address] [place] [address] H P Exam - Hospitalist 07/06/24 0218 MR#: [id number] Acct: [id number] Name: DANNY BEDOYA Rep #: [id number] : 1980 44 From: Lisa Jain DO PCP: Dr. Lexi Barnes MD Status:ADM IN [place] [facility] [id number] - General General Date of Admission: [...] allergy to lisinopril (angioedema), who presents to [facility] ER complaining of shortness of breath and [...] is expected to extend beyond 2 midnights. 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 Normal [facility] Hematocrit Auto (Bld) [Volum e fraction]Ordered By: Lisa Wallis on 07-06-2024 Hematocrit (Bld) [Volume fraction] 46.1 % 40-54 [facility] Hemoglobin measurementOrdere d By: Lisa Wallis on 07-06-2024 Hemoglobin (Bld) [Mass/Vol] 15.9 g/dL 13.0-16.5 [facility] Immature granulocytes/100 WB C Auto (Bld)Ordered By: Lisa Wallis on 07-06-2024 Immature granulocytes/100 WBC (Bld) 0.500 % 0.0-0.9 [facility] Comment on above: IG% - Immature Granu locytes (promyelocytes, myelocytes and metamyelocytes) > 1% indicates that a LEFT SHIFT is Present. International normalized rat io (INR) calculationOrdered By: Lisa Wallis on 07-06-2024 INR Coag (Bld) [Relative time] 1.1 {INR} [facility] - Chemistry and C hemistry - challengeOrdered By: Lisa Wallis on 07-06-2024 AST [Catalytic activity/Vol] 28 U/L <38 [facility] Lymphocytes Auto (Unsp spec) [#/Vol]Ordered By: Lisa Walils on 07-06-2024 Lymphocytes (Bld) [#/Vol] 0.51 10*3/uL Low 0.83-4.51 [facility] Lymphocytes/100 WBC Auto (Un sp spec)Ordered By: Lisa Wallis on 07-06-2024 Lymphocytes/100 WBC (Bld) 9.2 % Low 19-41 [facility] MCV (mean corpuscular volume ) determinationOrdered By: Lisa Wallis on 07-06-2024 MCV (RBC) [Entitic vol] 84.6 fL 80-94 [facility] Mean corpuscular hemoglobin (MCH) determinationOrdered By: Lisa Wallis on 07-06-2024 MCH (RBC) [Entitic mass] 29.2 pg 27.0-32.0 [facility] Mean corpuscular hemoglobin concentration (MCHC) determinationOrdered By: Lisa Wallis on 07-06-2024 MCHC (RBC) [Mass/Vol] 34.5 g/dL 32-36 [facility] Mean platelet volume determi nationOrdered By: Lisa Wallis on 07-06-2024 Platelet mean volume (Bld) [Entitic vol] 9.1 fL 6.2-12.0 [facility] Monocyte percentageOrdered B y: Lisa Wallis on 07-06-2024 Monocytes/100 WBC (Bld) 1.1 % 0-10 [facility] Neutrophil percentageOrdered By: Lisa Wallis on 07-06-2024 Neutrophils/100 WBC (Bld) 88.8 % High 47-70 [facility] No Panel InformationOrdered By: Lisa Wallis on 07-06-2024 Blood Gas Sample Site Not entered [facility] Blood Gas Specimen Type DARON [facility] Oxygen Delivery Device Cannula [facility] Nucleated red blood cell per centageOrdered By: Lisa Wallis on 07-06-2024 Nucleated RBC/100 WBC (Bld) [Ratio] 0 % 0-5 [facility] Oxygen (BldV) [Partial press ure]Ordered By: Lisa Wallis on 07-06-2024 Venous Blood Partial Pressure O2 67 mmHg High 25-40 [facility] Phosphoruson 07-06-2024 Phosphate [Mass/Vol] 2.3 mg/dL Low 2.7-4.5 [facility] Comment on above: Performed By: #### L 100.0100, L500.2500, L501.5200 #### [facility] [address] [place], [address] Platelet countOrdered By: Jatinder Wallis on 07-06-2024 Platelets (Bld) [#/Vol] 203 10*3/uL 150-450 [facility] Potassium (Unsp spec) [Mass/ Vol]Ordered By: Lisa Wallis on 07-06-2024 Potassium [Moles/Vol] 4.0 mmol/L 3.3-5.1 [facility] Prothrombin Time w/INRon INR Coag (PPP) [Relative time] 1.1 {INR} Normal [facility] Comment on above: Performed By: #### L 100.0100, L500.2500, L501.5200 #### [facility] [address] [place], [address] PT Coag (PPP) [Time] 14.3 s Normal 11.7-14.9 [facility] Comment on above: Performed By: #### L 100.0100, L500.2500, L501.5200 #### [facility] [address] [place], [address] Prothrombin timeOrdered By: Lisa Wallis on 07-06-2024 PT Coag (PPP) [Time] 14.3 s 11.7-14.9 [facility] RBC Auto (Bld) [#/Vol]Ordere d By: Lisa Wallis on 07-06-2024 RBC (Bld) [#/Vol] 5.45 10*6/uL 4.6-6.2 [facility] Serum creatinine measurement (mass/volume)Ordered By: Lisa Wallis on 07-06-2024 Creatinine [Mass/Vol] 1.01 mg/dL 0.70-1.20 [facility] Serum globulin measurementOr dered By: Lisa Wallis on 07-06-2024 Globulin (S) [Mass/Vol] 3.0 g/dL 2.2-4.2 [facility] Serum glucose measurement (m ass/volume)Ordered By: Lisa Wallis on 07-06-2024 Glucose [Mass/Vol] 169 mg/dL High 70-99 [facility] Serum or plasma alanine rodas otransferase (ALT) measurementOrdered By: Lisa Wallis on 07-06-2024 ALT [Catalytic activity/Vol] 23 U/L <47 [facility] Serum or plasma albumin ginny urement (mass/volume)Ordered By: Lisa Wallis on 07-06-2024 Albumin [Mass/Vol] 4.6 g/dL 3.5-5.0 [facility] Serum or plasma albumin/glob ulin mass ratioOrdered By: Lisa Wallis on 07-06-2024 Albumin/Globulin [Mass ratio] 1.5 {ratio} 0.9-2.4 [facility] Serum or plasma alkaline yarelis sphatase measurementOrdered By: Lisa Wallis on 07-06-2024 ALP [Catalytic activity/Vol] 81 U/L 40-129 [facility] Serum or plasma calcium ginny urement (mass/volume)Ordered By: Lisa Wallis on 07-06-2024 Calcium [Mass/Vol] 9.5 mg/dL 7.6-11.0 [facility] Serum or plasma urea nitroge n measurement (mass/volume)Ordered By: Lisa Wallis on 07-06-2024 Urea nitrogen [Mass/Vol] 18 mg/dL 4-19 [facility] Serum phosphorus measurement Ordered By: Lisa Wallis on 07-06-2024 Phosphorus Level 2.3 mg/dL Low 2.7-4.5 [facility] Sodium levelOrdered By: Fritz Wallis on 07-06-2024 Sodium [Moles/Vol] 136 mmol/L 133-145 [facility] Thyroid Stim Hormone (TSH)on 07-06-2024 TSH 2.050 uIU/mL Normal 0.300-4.[address] [facility] Comment on above: Performed By: #### L 100.0100, L500.2500 #### [facility] [address] [place], [address] Total proteinOrdered By: Urbano esteves Bimal on 07-06-2024 Protein [Mass/Vol] 7.6 g/dL 5.9-8.4 [facility] Venous Blood Gason 5 Blood Gas Type DARON Normal [facility] Comment on above: Performed By: #### L 499.0042 #### [facility] [address] [place], [address] CO2 [Moles/Vol] 24 mmol/L Normal 23-33 [facility] Comment on above: Performed By: #### L 499.0042 #### [facility] [address] [place], [address] [facility] Comment on above: Performed By: #### L 499.0042 #### [facility] [address] [place], [address] HCO3 (Bld) [Moles/Vol] 23 mmol/L Normal 22-26 [facility] Comment on above: Performed By: #### L 499.0042 #### [facility] [address] [place], [address] O2 Delivery Dev Cannula Normal [facility] Comment on above: Performed By: #### L 499.0042 #### [facility] [address] [place], [address] SITE Not entered [facility] Comment on above: Performed By: #### L 499.0042 #### [facility] [address] [place], [address] VBG BE -1 mmol/L Normal -1.0-3.5 [facility] Comment on above: Performed By: #### L 499.0042 #### [facility] [address] [place], [address] VBG pCO2 36.2 mmHg Low 41-51 [facility] Comment on above: Performed By: #### L 499.0042 #### [facility] [address] [place], [address] VBG pH 7.42 Normal 7.32-7.42 [facility] Comment on above: Performed By: #### L 499.0042 #### [facility] [address] [place], [address] VBG PO2 67 mmHg High 25-40 [facility] Comment on above: Performed By: #### L 499.0042 #### [facility] [address] [place], [address] VBG SO2 93 High 50-70 [facility] Comment on above: Performed By: #### L 499.0042 #### [facility] [address] [place], [place], [address] Venous blood bicarbonate mary surementOrdered By: Lisa Wallis on 07-06-2024 HCO3 (Bld) [Moles/Vol] 23 mmol/L 22-26 [facility] Venous blood oxygen saturati on measurementOrdered By: Lisa Wallis on 07-06-2024 Oxygen saturation in Blood 93 % High 50-70 [facility] White blood cell (WBC) count Ordered By: Lisa Wallis on 07-06-2024 WBC (Bld) [#/Vol] 5.5 10*3/uL 4.4-11.0 [facility] pH (BldV)Ordered By: Lisa arriaga on 07-06-2024 Venous Blood pH 7.42 7.32-7.42 [facility] Absolute neutrophil countOrd ered By: Jam Jiang on 07-05-2024 Neutrophils (Bld) [#/Vol] 5.3 10*3/uL 2.0-7.7 [facility] Anion gap in Serum or Plasma Ordered By: Jam Jiang on 07-05-2024 Anion gap [Moles/Vol] 15 mmol/L - [facility] BUN/creatinine ratioOrdered By: Jam Jiang on 07-05-2024 Urea nitrogen/Creatinine [Mass ratio] 17.7 mg/mg 02-14 [facility] Basic Metabolic Profile (BMP )on 07-05-2024 BUN/CRE 17.7 RATIO Normal 02-14 [facility] Comment on above: Performed By: #### L 100.0100, L500.2500, L501.5200 #### [facility] [address] [place], [address] Calcium [Mass/Vol] 9.6 mg/dL Normal 7.6-11.0 [facility] Comment on above: Performed By: #### L 100.0100, L500.2500, L501.5200 #### [facility] [address] [place], [address] Chloride [Moles/Vol] 103 mmol/L Normal 98-108 [facility] Comment on above: Performed By: #### L 100.0100, L500.2500, L501.5200 #### [facility] [address] [place], [address] CO2 [Moles/Vol] 21.0 mmol/L Normal 21.0-32.0 [facility] Comment on above: Performed By: #### L 100.0100, L500.2500, L501.5200 #### [facility] [address] [place], [address] Creatinine [Mass/Vol] 1.00 mg/dL Normal 0.70-1.20 [facility] Comment on above: Performed By: #### L 100.0100, L500.2500, L501.5200 #### [facility] [address] [place], [address] GAP 15 Normal - [facility] Comment on above: Performed By: #### L 100.0100, L500.2500, L501.5200 #### [facility] [address] [place], [address] GFR/1.73 sq M.predicted among non-blacks MDRD (S/P/Bld) [Vol rate/Area] 95 mL/min/{1.73_m2} Normal >60 [facility] Comment on above: Result Comment: mL/m in/1.73m2 CKD-EPI Creatinine Equation (2020) Performed By: #### L 100.0100, L500.2500, L501.5200 #### [facility] [address] [place], [address] Glucose [Mass/Vol] 102 mg/dL High 70-99 [facility] Comment on above: Performed By: #### L 100.0100, L500.2500, L501.5200 #### [facility] [address] [place], [address] Potassium [Moles/Vol] 3.8 mmol/L Normal 3.3-5.1 [facility] Comment on above: Performed By: #### L 100.0100, L500.2500, L501.5200 #### [facility] [address] [place], [address] Sodium [Moles/Vol] 139 mmol/L Normal 133-145 [facility] Comment on above: Performed By: #### L 100.0100, L500.2500, L501.5200 #### [facility] [address] [place], [address] Urea nitrogen [Mass/Vol] 18 mg/dL Normal 4-19 [facility] Comment on above: Performed By: #### L 100.0100, L500.2500, L501.5200 #### [facility] [address] [place], [address] Basophil percentageOrdered B y: Jam Jiang on 03-10-2025 Basophils/100 WBC (Bld) 1.1 % High 0-1 [facility] CBC W/Diff, Automatedon 03-1 0-2025 Absolute Lymph 1.62 X10 3/uL Normal 0.83-4.51 [facility] Comment on above: Performed By: #### L 100.0100, L500.2500, L501.5200 #### [facility] [address] [place], [address] Absolute Neut 5.3 X10 3/uL Normal 2.0-7.7 [facility] Comment on above: Performed By: #### L 100.0100, L500.2500, L501.5200 #### [facility] [address] [place], [address] Basophils/100 WBC (Bld) 1.1 % High 0-1 [facility] Comment on above: Performed By: #### L 100.0100, L500.2500, L501.5200 #### [facility] [address] [place], [address] Eosinophils/100 WBC (Bld) 7.1 % High 0-5 [facility] Comment on above: Performed By: #### L 100.0100, L500.2500, L501.5200 #### [facility] [address] [place], [address] Erythrocyte distribution width (RBC) [Ratio] 12.6 % Normal 11.6-14.6 [facility] Comment on above: Performed By: #### L 100.0100, L500.2500, L501.5200 #### [facility] [address] [place], [address] Hematocrit (Bld) [Volume fraction] 46.9 % Normal 40-54 [facility] Comment on above: Performed By: #### L 100.0100, L500.2500, L501.5200 #### [facility] [address] [place], [address] Hemoglobin (Bld) [Mass/Vol] 16.4 g/dL Normal 13.0-16.5 [facility] Comment on above: Performed By: #### L 100.0100, L500.2500, L501.5200 #### [facility] [address] [place], [address] IG% 0.400 Normal 0.0-0.9 [facility] Comment on above: Result Comment: IG% - Immature Granulocytes (promyelocytes, myelocytes and metamyelocytes) > 1% indicates that a LEFT SHIFT is Present. Performed By: #### L 100.0100, L500.2500, L501.5200 #### [facility] [address] [place], [address] Lymphocytes/100 WBC (Bld) 19.5 % Normal 19-41 [facility] Comment on above: Performed By: #### L 100.0100, L500.2500, L501.5200 #### [facility] [address] [place], [address] MCH (RBC) [Entitic mass] 29.4 pg Normal 27.0-32.0 [facility] Comment on above: Performed By: #### L 100.0100, L500.2500, L501.5200 #### [facility] [facility] [address] [place], [address] MCHC (RBC) [Mass/Vol] 35.0 g/dL Normal 32-36 [facility] Comment on above: Performed By: #### L 100.0100, L500.2500, L501.5200 #### [facility] [address] [place], [address] MCV (RBC) [Entitic vol] 84.2 fL Normal 80-94 [facility] Comment on above: Performed By: #### L 100.0100, L500.2500, L501.5200 #### [facility] [address] [place], [address] Monocytes/100 WBC (Bld) 7.6 % Normal 0-10 [facility] Comment on above: Performed By: #### L 100.0100, L500.2500, L501.5200 #### [facility] [address] [place], [address] Neutrophils/100 WBC (Bld) 64.3 % Normal 47-70 [facility] Comment on above: Performed By: #### L 100.0100, L500.2500, L501.5200 #### [facility] [address] [place], [address] Nucleated RBC (Bld) [#/Vol] 0 10*3/uL Normal 0-5 [facility] Comment on above: Performed By: #### L 100.0100, L500.2500, L501.5200 #### [facility] [address] [place], [address] Platelet mean volume (Bld) [Entitic vol] 8.8 fL Normal 6.2-12.0 [facility] Comment on above: Performed By: #### L 100.0100, L500.2500, L501.5200 #### [facility] [address] [place], [address] Platelets (Bld) [#/Vol] 219 10*3/uL Normal 150-450 [facility] Comment on above: Performed By: #### L 100.0100, L500.2500, L501.5200 #### [facility] [address] [place], [address] RBC (Bld) [#/Vol] 5.57 10*6/uL Normal 4.6-6.2 [facility] Comment on above: Performed By: #### L 100.0100, L500.2500, L501.5200 #### [facility] [address] [place], [address] RDW SD 38.3 fl Normal 35.1-43.9 [facility] Comment on above: Performed By: #### L 100.0100, L500.2500, L501.5200 #### [facility] [address] [place], [address] WBC (Bld) [#/Vol] 8.3 10*3/uL Normal 4.4-11.0 [facility] Comment on above: Performed By: #### L 100.0100, L500.2500, L501.5200 #### [facility] [address] [place], [address] Carbon dioxide, total [Moles /volume] in Central venous bloodOrdered By: Jam Jiang on 07-05-2024 CO2 [Moles/Vol] 21.0 mmol/L 21.0-32.0 [facility] Chest PA and Lateralon 07-05 Chest PA and Lateral [facility] Imaging Services [address] [place] [address] Chest PA and Lateral MR#: [id number] Acct: [id number] Name: DANNY BEDOYA Rep #: [id number] : 1980 M 44 From: Anil lopez MD PCP: Dr. Lexi Barnes MD Status: REG ER Study: Chest PA and Lateral Date of Exam: 07/05/24 Exam# [id number] Ordering Dr: Jam Jiang DO PROCEDURE: CHEST PA AND LATERAL REASON FOR EXAM: DYSPNEA TECHNIQUE: Frontal and lateral views of the chest. COMPARISON: 06/11/2024 FINDINGS: The cardiothymic contour is normal. The lungs are clear. The bones are unremarkable. RAD/Chest PA and Lateral IMPRESSION: No acute cardiopulmonary process. Reading Location: [facility] CC: Dr. 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 Chloride assayOrdered By: Erin Jiang on 07-05-2024 Chloride [Moles/Vol] 103 mmol/L 98-108 [facility] Emergency Department Summary on 07-05-2024 Emergency Department Summary [facility] Medical Records Department [address] [place] [address] Emergency Department Summary 07/05/24 MR#: [id number] Acct: [id number] Name: DANNY BEDOYA Rep #: [id number] : 1980 44 From: Jam Jiang DO PCP: Dr. Lexi Barnes MD Status:ADM IN Location: [place] [id number] HPI History of Present Illness Chief Complaint: [...] attacks and therefore comes in for evaluation. 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 Normal [facility] Eosinophil percentageOrdered By: Jam Jiang on 07-05-2024 Eosinophils/100 WBC (Bld) 7.1 % High 0-5 [facility] Erythrocyte distribution wid th ratioOrdered By: Jam Jiang on 07-05-2024 Erythrocyte distribution width (RBC) [Ratio] 12.6 % 11.6-14.6 [facility] Erythrocyte distribution wid th standard deviationOrdered By: Jam Jiang on 07-05-2024 Erythrocyte distribution width (RBC) [Entitic vol] 38.3 fL 35.1-43.9 [facility] GFR/1.73 sq M.predicted jyoti g non-blacks MDRD (S/P/Bld) [Vol rate/Area]Ordered By: Jam Jiang on 07-05-2024 Estimated GFR (MDRD) Non-Af Amer [address] >60 [facility] Comment on above: mL/min/1.73m2 CKD-EP I Creatinine Equation (2020) Hematocrit Auto (Bld) [Volum e fraction]Ordered By: Jam Jiang on 07-05-2024 Hematocrit (Bld) [Volume fraction] 46.9 % 40-54 [facility] Hemoglobin measurementOrdere d By: Jam Jiang on 07-05-2024 Hemoglobin (Bld) [Mass/Vol] 16.4 g/dL 13.0-16.5 [facility] Immature granulocytes/100 WB C Auto (Bld)Ordered By: Jam Jiang on 07-05-2024 Immature granulocytes/100 WBC (Bld) 0.400 % 0.0-0.9 [facility] Comment on above: IG% - Immature Granu locytes (promyelocytes, myelocytes and metamyelocytes) > 1% indicates that a LEFT SHIFT is Present. Influenza virus A and B and SARS-CoV-2 (COVID-19) and Respiratory syncytial virus RNAOrdered By: Jam Jiang on 07-05-2024 SARS-CoV-2 (COVID-19) RNA DANA+probe Ql (Unsp spec) [facility] Lymphocytes Auto (Unsp spec) [#/Vol]Ordered By: Jam Jiang on 07-05-2024 Lymphocytes (Bld) [#/Vol] 1.62 10*3/uL 0.83-4.51 [facility] Lymphocytes/100 WBC Auto (Un sp spec)Ordered By: Jam Jiang on 07-05-2024 Lymphocytes/100 WBC (Bld) 19.5 % 19-41 [facility] M100.678on 07-05-2024 M100.678 SARS-CoV-2 (COVID 19 ) Negative INFLUENZA A Negative INFLUENZA B Negative RSV PCR Negative Normal [facility] Comment on above: Performed By: #### L 100.0100, L500.2500 #### [facility] [address] [place], [address] MCV (mean corpuscular volume ) determinationOrdered By: Jam Jiang on 07-05-2024 MCV (RBC) [Entitic vol] 84.2 fL 80-94 [facility] Magnesiumon 07-05-2024 Magnesium [Mass/Vol] 1.7 mg/dL Normal 1.5-2.2 [facility] Comment on above: Performed By: #### L 100.0100, L500.2500, L501.5200 #### [facility] [address] [place], [address] Magnesium (Unsp spec) [Mass/ Vol]Ordered By: Jam Jiang on 07-05-2024 Magnesium [Mass/Vol] 1.7 mg/dL 1.5-2.2 [facility] Mean corpuscular hemoglobin (MCH) determinationOrdered By: Jam Jiang on 07-05-2024 MCH (RBC) [Entitic mass] 29.4 pg 27.0-32.0 [facility] Mean corpuscular hemoglobin concentration (MCHC) determinationOrdered By: Jam Jiang on 07-05-2024 MCHC (RBC) [Mass/Vol] 35.0 g/dL 32-36 [facility] Mean platelet volume determi nationOrdered By: Jam Jiang on 07-05-2024 Platelet mean volume (Bld) [Entitic vol] 8.8 fL 6.2-12.0 [facility] Monocyte percentageOrdered B y: Jam Jiang on 07-05-2024 Monocytes/100 WBC (Bld) 7.6 % 0-10 [facility] Neutrophil percentageOrdered By: Jam Jiang on 07-05-2024 Neutrophils/100 WBC (Bld) 64.3 % 47-70 [facility] Nucleated red blood cell per centageOrdered By: Jam Jiang on 07-05-2024 Nucleated RBC/100 WBC (Bld) [Ratio] 0 % 0-5 [facility] Platelet countOrdered By: Erin Jiang on 07-05-2024 Platelets (Bld) [#/Vol] 219 10*3/uL 150-450 [facility] Potassium (Unsp spec) [Mass/ Vol]Ordered By: Jam Jiang on 07-05-2024 Potassium [Moles/Vol] 3.8 mmol/L 3.3-5.1 [facility] RBC Auto (Bld) [#/Vol]Ordere d By: Jam Jiang on 07-05-2024 RBC (Bld) [#/Vol] 5.57 10*6/uL 4.6-6.2 [facility] Serum creatinine measurement (mass/volume)Ordered By: Jam Jiagn on 07-05-2024 Creatinine [Mass/Vol] 1.00 mg/dL 0.70-1.20 [facility] Serum glucose measurement (m ass/volume)Ordered By: Jam Jiang on 07-05-2024 Glucose [Mass/Vol] 102 mg/dL High 70-99 [facility] Serum or plasma calcium ginny urement (mass/volume)Ordered By: Jam Jiang on 07-05-2024 Calcium [Mass/Vol] 9.6 mg/dL 7.6-11.0 [facility] Serum or plasma urea nitroge n measurement (mass/volume)Ordered By: Jam Jiang on 07-05-2024 Urea nitrogen [Mass/Vol] 18 mg/dL 4-19 [facility] Sodium levelOrdered By: Adam Jiang on 07-05-2024 Sodium [Moles/Vol] 139 mmol/L 133-145 [facility] TSH DL <= 0.005 mIU/L QnOrde red By: Lisa Wallis on 07-05-2024 Thyroid Stimulating Hormone (TSH) 2.050 uIU/mL 0.300-4.[address] [facility] White blood cell (WBC) count Ordered By: Jam Jiang on 07-05-2024 WBC (Bld) [#/Vol] 8.3 10*3/uL 4.4-11.0 [facility] Absolute neutrophil countOrd ered By: Douglas Cruz on 06-11-2024 Neutrophils (Bld) [#/Vol] 6.0 10*3/uL 2.0-7.7 [facility] Basic Metabolic Profile (BMP )on 06-11-2024 BUN/CRE 15.1 RATIO Normal 10-20 [facility] Comment on above: Performed By: #### L 100.0100, L500.2500 #### [facility] [address] [place], [address] CA,Total 9.0 mg/dL Normal 8.5-10.1 [facility] Comment on above: Performed By: #### L 100.0100, L500.2500 #### [facility] [address] [place], [address] Chloride [Moles/Vol] 107 mmol/L Normal 98-107 [facility] Comment on above: Performed By: #### L 100.0100, L500.2500 #### [facility] [address] [place], [address] CO2 [Moles/Vol] 26.0 mmol/L Normal 21.0-32.0 [facility] Comment on above: Performed By: #### L 100.0100, L500.2500 #### [facility] [address] [place], [address] Creatinine [Mass/Vol] 1.06 mg/dL Normal 0.70-1.30 [facility] Comment on above: Result Comment: The validity of the calculated GFR GFRAA in patients over 70 years has not been determined. Clinical correlation is essential. Performed By: #### L 100.0100, L500.2500 #### [facility] [address] [place], [address] ECRCL 77.36 ml/min Normal [facility] Comment on above: Performed By: #### L 100.0100, L500.2500 #### [facility] [address] [place], [address] EST GFR - AA 98 mL/min Normal >60 [facility] Comment on above: Result Comment: Afri can Marshallese GFR Calc Performed By: #### L 100.0100, L500.2500 #### [facility] [address] [place], [address] GAP 4 Low 5-15 [facility] Comment on above: Performed By: #### L 100.0100, L500.2500 #### [facility] [address] [place], [address] GFR/1.73 sq M.predicted among non-blacks MDRD (S/P/Bld) [Vol rate/Area] 81 mL/min/{1.73_m2} Normal >60 [facility] Comment on above: Result Comment: Non- GFR Calc Performed By: #### L 100.0100, L500.2500 #### [facility] [address] [place], [address] Glucose [Mass/Vol] 90 mg/dL Normal 74-106 [facility] Comment on above: Performed By: #### L 100.0100, L500.2500 #### [facility] [address] [place], [address] Potassium [Moles/Vol] 5.2 mmol/L High 3.5-5.1 [facility] Comment on above: Result Comment: Mode rate Hemolysis, Result may be falsely increased. Performed By: #### L 100.0100, L500.2500 #### [facility] [address] [place], [address] Sodium [Moles/Vol] 137 mmol/L Normal 136-145 [facility] Comment on above: Performed By: #### L 100.0100, L500.2500 #### [facility] [address] [place], [address] Urea nitrogen [Mass/Vol] 16 mg/dL Normal 7-18 [facility] Comment on above: Performed By: #### L 100.0100, L500.2500 #### [facility] [address] [place], [address] Basophil percentageOrdered B y: Douglas Cruz on 06-11-2024 Basophils/100 WBC (Bld) 0.6 % 0-1 [facility] Blood urea nitrogen (BUN)/cr eatinine ratioOrdered By: Douglas Cruz on 06-11-2024 Urea nitrogen/Creatinine [Mass ratio] 15.1 mg/mg 10-20 [facility] CBC W/Diff, Automatedon 05-29 Absolute Lymph 1.48 X10 3/uL Normal 0.83-4.51 [facility] Comment on above: Performed By: #### L 100.0100, L500.2500 #### [facility] [address] [place], [address] Absolute Neut 6.0 X10 3/uL Normal 2.0-7.7 [facility] Comment on above: Performed By: #### L 100.0100, L500.2500 #### [facility] [address] [place], [address] Basophils/100 WBC (Bld) 0.6 % Normal 0-1 [facility] Comment on above: Performed By: #### L 100.0100, L500.2500 #### [facility] [address] [place], [address] Eosinophils/100 WBC (Bld) 4.2 % Normal 0-5 [facility] Comment on above: Performed By: #### L 100.0100, L500.2500 #### [facility] [address] [place], [address] Erythrocyte distribution width (RBC) [Ratio] 13.2 % Normal 11.6-14.6 [facility] Comment on above: Performed By: #### L 100.0100, L500.2500 #### [facility] [address] [place], [address] Hematocrit (Bld) [Volume fraction] 47.1 % Normal 40-54 [facility] Comment on above: Performed By: #### L 100.0100, L500.2500 #### [facility] [address] [place], [address] Hemoglobin (Bld) [Mass/Vol] 15.9 g/dL Normal 13.0-16.5 [facility] Comment on above: Performed By: #### L 100.0100, L500.2500 #### [facility] [address] [place], [address] IG% 0.200 Normal 0.0-0.9 [facility] Comment on above: Result Comment: IG% - Immature Granulocytes (promyelocytes, myelocytes and metamyelocytes) > 1% indicates that a LEFT SHIFT is Present. Performed By: #### L 100.0100, L500.2500 #### [facility] [address] [place], [address] Lymphocytes/100 WBC (Bld) 17.5 % Low 19-41 [facility] Comment on above: Performed By: #### L 100.0100, L500.2500 #### [facility] [address] [place], [address] MCH (RBC) [Entitic mass] 29.3 pg Normal 27.0-32.0 [facility] Comment on above: Performed By: #### L 100.0100, L500.2500 #### [facility] [address] [place], [address] MCHC (RBC) [Mass/Vol] 33.8 g/dL Normal 32-36 [facility] Comment on above: Performed By: #### L 100.0100, L500.2500 #### [facility] [address] [place], [address] MCV (RBC) [Entitic vol] 86.7 fL Normal 80-94 [facility] Comment on above: Performed By: #### L 100.0100, L500.2500 #### [facility] [address] [place], [address] Monocytes/100 WBC (Bld) 6.8 % Normal 0-10 [facility] Comment on above: Performed By: #### L 100.0100, L500.2500 #### [facility] [address] [place], [address] Neutrophils/100 WBC (Bld) 70.7 % High 47-70 [facility] Comment on above: Performed By: #### L 100.0100, L500.2500 #### [facility] [address] [place], [address] Nucleated RBC (Bld) [#/Vol] 0 10*3/uL Normal 0-5 [facility] Comment on above: Performed By: #### L 100.0100, L500.2500 #### [facility] [address] [place], [address] Platelet mean volume (Bld) [Entitic vol] 9.3 fL Normal 6.2-12.0 [facility] Comment on above: Performed By: #### L 100.0100, L500.2500 #### [facility] [address] [place], [address] Platelets (Bld) [#/Vol] 199 10*3/uL Normal 150-450 [facility] Comment on above: Performed By: #### L 100.0100, L500.2500 #### [facility] [address] [place], [address] RBC (Bld) [#/Vol] 5.43 10*6/uL Normal 4.6-6.2 [facility] Comment on above: Performed By: #### L 100.0100, L500.2500 #### [facility] [address] [place], [address] RDW SD 39.8 fl Normal 35.1-43.9 [facility] Comment on above: Performed By: #### L 100.0100, L500.2500 #### [facility] [address] [place], [address] WBC (Bld) [#/Vol] 8.5 10*3/uL Normal 4.4-11.0 [facility] Comment on above: Performed By: #### L 100.0100, L500.2500 #### [facility] [address] [place], [address] Carbon dioxide measurementOr dered By: Douglas Cruz on 06-11-2024 CO2 [Moles/Vol] 26.0 mmol/L 21.0-32.0 [facility] Chest PA and Lateralon 06-11 Chest PA and Lateral [facility] Imaging Services [address] [place] [address] Chest PA and Lateral MR#: [id number] Acct: [id number] Name: DANNY BEDOYA Rep #: [id number] : 1980 M 44 From: Ambreen Driver MD PCP: Dr. Lexi Barnes MD Status: REG ER Study: Chest PA and Lateral Date of Exam: 06/11/24 Exam# [id number] Ordering Dr: Douglas Cruz DO PROCEDURE: CHEST [...] Lexi Barnes MD; Dr. 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 Chloride measurementOrdered By: Douglas Cruz on 06-11-2024 Chloride [Moles/Vol] 107 mmol/L 98-107 [facility] Emergency Department Summary on 06-11-2024 Emergency Department Summary [facility] Medical Records Department [address] [place] [address] Emergency Department Summary 06/11/24 MR#: [id number] Acct: [id number] Name: DANNY BEDOYA Rep #: [id number] : 1980 44 From: Douglas Cruz DO [...] intact Psych: Cooperative, appropriate mood and affect [facility] Medical History Cirrhosis Asthma Alcohol abuse [...] none current occupational status: employed current occupation: [employer] Smoking Status: Never smoker Electronic Cigarette Use: [...] 18:30 [place] (more content not included)... Normal [facility] Eosinophil percentageOrdered By: Douglas Cruz on 06-11-2024 Eosinophils/100 WBC (Bld) 4.2 % 0-5 [facility] Erythrocyte distribution wid th ratioOrdered By: Douglas Cruz on 06-11-2024 Erythrocyte distribution width (RBC) [Ratio] 13.2 % 11.6-14.6 [facility] Erythrocyte distribution wid th standard deviationOrdered By: Douglas Todd on 06-11-2024 Erythrocyte distribution width (RBC) [Entitic vol] 39.8 fL 35.1-43.9 [facility] Estimated glomerular filtrat ion rate (GFR) AmericanOrdered By: Douglas Cruz on 06-11-2024 Estimated GFR (MDRD) Amer 98 mL/min >60 [facility] Comment on above: GFR Calc Estimation of creatinine niru aranceOrdered By: Douglas Cruz on 06-11-2024 Estimated Creatinine Clearance Calc 77.36 ml/min [facility] Glomerular filtration rate ( GFR) estimationOrdered By: Douglas Anthony on 06-11-2024 Estimated GFR (MDRD) Non-Af Amer 81 mL/min >60 [facility] Comment on above: Non- GFR Calc Glucose measurementOrdered B y: Douglas Cruz on 06-11-2024 Glucose [Mass/Vol] 90 mg/dL 74-106 [facility] Hematocrit Auto (Bld) [Volum e fraction]Ordered By: Douglas Curz on 06-11-2024 Hematocrit (Bld) [Volume fraction] 47.1 % 40-54 [facility] Hemoglobin measurementOrdere d By: Douglas Cruz on 06-11-2024 Hemoglobin (Bld) [Mass/Vol] 15.9 g/dL 13.0-16.5 [facility] Immature granulocytes/100 WB C Auto (Bld)Ordered By: Douglas Cruz on 06-11-2024 Immature granulocytes/100 WBC (Bld) 0.200 % 0.0-0.9 [facility] Comment on above: IG% - Immature Granu locytes (promyelocytes, myelocytes and metamyelocytes) > 1% indicates that a LEFT SHIFT is Present. Influenza virus A and B and SARS-CoV-2 (COVID-19) and Respiratory syncytial virus RNAOrdered By: Douglas Cruz on 06-11-2024 SARS-CoV-2 (COVID-19) RNA DANA+probe Ql (Unsp spec) [facility] Lymphocytes Auto (Unsp spec) [#/Vol]Ordered By: Douglas Cruz on 06-11-2024 Lymphocytes (Bld) [#/Vol] 1.48 10*3/uL 0.83-4.51 [facility] Lymphocytes/100 WBC Auto (Un sp spec)Ordered By: Douglaspamela Cruz on 06-11-2024 Lymphocytes/100 WBC (Bld) 17.5 % Low 19-41 [facility] M100.678on 06-11-2024 M100.678 SARS-CoV-2 (COVID 19 ) Negative INFLUENZA A Negative INFLUENZA B Negative RSV PCR Negative Normal [facility] Comment on above: Performed By: #### L 100.0100, L500.2500 #### [facility] [address] [place] [address], [address] MCV (mean corpuscular volume ) determinationOrdered By: Douglas Anthony on 06-11-2024 MCV (RBC) [Entitic vol] 86.7 fL 80-94 [facility] Mean corpuscular hemoglobin (MCH) determinationOrdered By: [place] Anthony on 06-11-2024 MCH (RBC) [Entitic mass] 29.3 pg 27.0-32.0 [facility] Mean corpuscular hemoglobin concentration (MCHC) determinationOrdered By: [facility] Hospital[facility] on 06-11-2024 MCHC (RBC) [Mass/Vol] 33.8 g/dL 32-36 [facility] Mean platelet volume determi nationOrdered By: Douglas Cruz on 06-11-2024 Platelet mean volume (Bld) [Entitic vol] 9.3 fL 6.2-12.0 [facility] Monocyte percentageOrdered B y: Douglas Cruz on 06-11-2024 Monocytes/100 WBC (Bld) 6.8 % 0-10 [facility] Neutrophil percentageOrdered By: Douglas Cruz on 06-11-2024 Neutrophils/100 WBC (Bld) 70.7 % High 47-70 [facility] Nucleated red blood cell per centageOrdered By: Douglas Cruz on 06-11-2024 Nucleated RBC/100 WBC (Bld) [Ratio] 0 % 0-5 [facility] Platelet countOrdered By: Calderon Cruz on 06-11-2024 Platelets (Bld) [#/Vol] 199 10*3/uL 150-450 [facility] Potassium measurementOrdered By: Douglas Cruz on 06-11-2024 Potassium [Moles/Vol] 5.2 mmol/L High 3.5-5.1 [facility] Comment on above: Moderate Hemolysis, Result may be falsely increased. RBC Auto (Bld) [#/Vol]Ordere d By: Douglas Cruz on 06-11-2024 RBC (Bld) [#/Vol] 5.43 10*6/uL 4.6-6.2 [facility] Serum anion gap measurementO rdered By: Douglas Cruz on 06-11-2024 Anion gap [Moles/Vol] 4 mmol/L Low 5-15 [facility] Serum or plasma calcium ginny urement (mass/volume)Ordered By: Douglas Todd on 06-11-2024 Calcium [Mass/Vol] 9.0 mg/dL 8.5-10.1 [facility] Serum or plasma creatinine m easurement (mass/volume)Ordered By: Douglas Todd on 06-11-2024 Creatinine [Mass/Vol] 1.06 mg/dL 0.70-1.30 [facility] Comment on above: The validity of the calculated GFR & GFRAA in patients over 70 years has not been determined. Clinical correlation is essential. Serum or plasma urea nitroge n measurement (mass/volume)Ordered By: Douglas Cruz on 06-11-2024 Urea nitrogen [Mass/Vol] 16 mg/dL 7-18 [facility] Sodium levelOrdered By: Chago Cruz on 06-11-2024 Sodium [Moles/Vol] 137 mmol/L 136-145 [facility] White blood cell (WBC) count Ordered By: Douglas Cruz on 06-11-2024 WBC (Bld) [#/Vol] 8.5 10*3/uL 4.4-11.0 [facility] L501.5101on 03-31-2024 GGTP 22 IU/L Normal 0-65 [facility] Comment on above: Order Comment: Test( s) [id number] ([id number]), Bloodwas developed and its performance characteristicsdetermined by [employer]. It has not been cleared or approvedby the Food and Drug Administration. Result Comment: Perf ormed at: [facility] Lab[address] [id number] Exercise Physiologist Certified: Arlyn Avila MD, Phone: [id number] Performed at: [facility] [address] [id number] Exercise Physiologist Certified: Dago Will PhD, Phone: [phone] Performed By: #### L 100.0100, L500.2500, L501.7547 #### [facility] [address] [place] [address], [address] Tacrolimus (Prograf)on 03-31 Tacrolimus (Bld) [Mass/Vol] 7.5 ng/mL Normal 2.0-20.0 [facility] Comment on above: Order Comment: Test( s) [id number] ([id number]), Bloodwas developed and its performance characteristicsdetermined by [employer]. It has not been cleared or approvedby the Food and Drug Administration. Result Comment: Trou gh (immediately following transplant) 15.0 Trough (steady state, 2 weeks or more after transplant): 3.0 - 8.0 Performed by LC-MS/MS technology. Performed By: #### L 100.0100, L500.2500, L501.5200 #### [facility] [address] [place], [address] Absolute neutrophil counton 03-29-2024 Neutrophils (Bld) [#/Vol] 3.4 10*3/uL 2.0-7.7 [facility] Basic Metabolic Profile (BMP )on 03-29-2024 BUN/CRE 20.2 RATIO High 10-20 [facility] Comment on above: Performed By: #### L 100.0100, L500.2500, L501.5200 #### [facility] [address] [place], [address] CA,Total 9.0 mg/dL Normal 8.5-10.1 [facility] Comment on above: Performed By: #### L 100.0100, L500.2500, L501.5200 #### [facility] [address] [place], [address] Chloride [Moles/Vol] 110 mmol/L High 98-107 [facility] Comment on above: Performed By: #### L 100.0100, L500.2500, L501.5200 #### [facility] [address] [place], [address] CO2 [Moles/Vol] 23.0 mmol/L Normal 21.0-32.0 [facility] Comment on above: Performed By: #### L 100.0100, L500.2500, L501.5200 #### [facility] [address] [place], [address] Creatinine [Mass/Vol] 1.09 mg/dL Normal 0.70-1.30 [facility] Comment on above: Result Comment: The validity of the calculated GFR GFRAA in patients over 70 years has not been determined. Clinical correlation is essential. Performed By: #### L 100.0100, L500.2500, L501.5200 #### [facility] [address] [place], [address] EST GFR - AA 95 mL/min Normal >60 [facility] Comment on above: Result Comment: Afri can Marshallese GFR Calc Performed By: #### L 100.0100, L500.2500, L501.5200 #### [facility] [address] [place], [address] GAP 6 Normal 5-15 [facility] Comment on above: Performed By: #### L 100.0100, L500.2500, L501.5200 #### [facility] [address] [place], [address] GFR/1.73 sq M.predicted among non-blacks MDRD (S/P/Bld) [Vol rate/Area] 78 mL/min/{1.73_m2} Normal >60 [facility] Comment on above: Result Comment: Non- GFR Calc Performed By: #### L 100.0100, L500.2500, L501.5200 #### [facility] [address] [place], [address] Glucose [Mass/Vol] 107 mg/dL High 74-106 [facility] Comment on above: Result Comment: Fast ing Glucose result from 100 to 125 mg/dL suggests IMPAIRED HOMEOSTASIS per A.D.A. criteria. Performed By: #### L 100.0100, L500.2500, L501.5200 #### [facility] [address] [place], [address] Potassium [Moles/Vol] 4.3 mmol/L Normal 3.5-5.1 [facility] Comment on above: Performed By: #### L 100.0100, L500.2500, L501.5200 #### [facility] [address] [place], [address] Sodium [Moles/Vol] 139 mmol/L Normal 136-145 [facility] Comment on above: Performed By: #### L 100.0100, L500.2500, L501.5200 #### [facility] [address] [place], [address] Urea nitrogen [Mass/Vol] 22 mg/dL High 7-18 [facility] Comment on above: Performed By: #### L 100.0100, L500.2500, L501.5200 #### [facility] [address] [place], [address] Basophil percentageon 2023 Basophils/100 WBC (Bld) 1.2 % High 0-1 [facility] Bilirubin directon 4 Bilirubin.direct [Mass/Vol] 0.41 mg/dL High 0.00-0.30 [facility] Bilirubin, totalon 4 Bilirubin [Mass/Vol] 1.60 mg/dL High 0.20-1.00 [facility] Comment on above: For patients on eltr ombopag therapy, use of Dimension [place] TBIL is not recommended. Blood urea nitrogen (BUN)/cr eatinine ratioon 03-29-2024 Urea nitrogen/Creatinine [Mass ratio] 20.2 mg/mg High 10-20 [facility] CBC W/Diff, Automatedon Absolute Lymph 1.66 X10 3/uL Normal 0.83-4.51 [facility] Comment on above: Performed By: #### L 100.0100, L500.2500, L501.5200 #### [facility] [address] [place], [address] Absolute Neut 3.4 X10 3/uL Normal 2.0-7.7 [facility] Comment on above: Performed By: #### L 100.0100, L500.2500, L501.5200 #### [facility] [address] [place], [address] Basophils/100 WBC (Bld) 1.2 % High 0-1 [facility] Comment on above: Performed By: #### L 100.0100, L500.2500, L501.5200 #### [facility] [address] [place], [address] Eosinophils/100 WBC (Bld) 5.1 % High 0-5 [facility] Comment on above: Performed By: #### L 100.0100, L500.2500, L501.5200 #### [facility] [address] [place], [address] Erythrocyte distribution width (RBC) [Ratio] 12.6 % Normal 11.6-14.6 [facility] Comment on above: Performed By: #### L 100.0100, L500.2500, L501.5200 #### [facility] [address] [place], [address] Hematocrit (Bld) [Volume fraction] 41.0 % Normal 40-54 [facility] Comment on above: Performed By: #### L 100.0100, L500.2500, L501.5200 #### [facility] [address] [place], [address] Hemoglobin (Bld) [Mass/Vol] 14.4 g/dL Normal 13.0-16.5 [facility] Comment on above: Performed By: #### L 100.0100, L500.2500, L501.5200 #### [facility] [address] [place], [address] IG% 0.200 Normal 0.0-0.9 [facility] Comment on above: Result Comment: IG% - Immature Granulocytes (promyelocytes, myelocytes and metamyelocytes) > 1% indicates that a LEFT SHIFT is Present. Performed By: #### L 100.0100, L500.2500, L501.5200 #### [facility] [address] [place], [address] Lymphocytes/100 WBC (Bld) 27.5 % Normal 19-41 [facility] Comment on above: Performed By: #### L 100.0100, L500.2500, L501.5200 #### [facility] [address] [place], [address] MCH (RBC) [Entitic mass] 30.1 pg Normal 27.0-32.0 [facility] Comment on above: Performed By: #### L 100.0100, L500.2500, L501.5200 #### [facility] [address] [place], [address] MCHC (RBC) [Mass/Vol] 35.1 g/dL Normal 32-36 [facility] Comment on above: Performed By: #### L 100.0100, L500.2500, L501.5200 #### [facility] [address] [place], [address] MCV (RBC) [Entitic vol] 85.6 fL Normal 80-94 [facility] Comment on above: Performed By: #### L 100.0100, L500.2500, L501.5200 #### [facility] [address] [place], [address] Monocytes/100 WBC (Bld) 10.4 % High 0-10 [facility] Comment on above: Performed By: #### L 100.0100, L500.2500, L501.5200 #### [facility] [address] [place], [address] Neutrophils/100 WBC (Bld) 55.6 % Normal 47-70 [facility] Comment on above: Performed By: #### L 100.0100, L500.2500, L501.5200 #### [facility] [address] [place], [address] Nucleated RBC (Bld) [#/Vol] 0 10*3/uL Normal 0-5 [facility] Comment on above: Performed By: #### L 100.0100, L500.2500, L501.5200 #### [facility] [address] [place], [address] Platelet mean volume (Bld) [Entitic vol] 9.0 fL Normal 6.2-12.0 [facility] Comment on above: Performed By: #### L 100.0100, L500.2500, L501.5200 #### [facility] [address] [place], [address] Platelets (Bld) [#/Vol] 203 10*3/uL Normal 150-450 [facility] Comment on above: Performed By: #### L 100.0100, L500.2500, L501.5200 #### [facility] [address] [place], [address] RBC (Bld) [#/Vol] 4.79 10*6/uL Normal 4.6-6.2 [facility] Comment on above: Performed By: #### L 100.0100, L500.2500, L501.5200 #### [facility] [address] [place], [address] RDW SD 39.3 fl Normal 35.1-43.9 [facility] Comment on above: Performed By: #### L 100.0100, L500.2500, L501.5200 #### [facility] [address] [place], [address] WBC (Bld) [#/Vol] 6.0 10*3/uL Normal 4.4-11.0 [facility] Comment on above: Performed By: #### L 100.0100, L500.2500, L501.5200 #### [facility] [address] [place], [address] Carbon dioxide measurementon 03-29-2024 CO2 [Moles/Vol] 23.0 mmol/L 21.0-32.0 [facility] Chloride measurementon 03-29 Chloride [Moles/Vol] 110 mmol/L High 98-107 [facility] Eosinophil percentageon 12-0 Eosinophils/100 WBC (Bld) 5.1 % High 0-5 [facility] Erythrocyte distribution wid th ratioon 03-29-2024 Erythrocyte distribution width (RBC) [Ratio] 12.6 % 11.6-14.6 [facility] Erythrocyte distribution wid th standard deviationon 03-29-2024 Erythrocyte distribution width (RBC) [Entitic vol] 39.3 fL 35.1-43.9 [facility] Estimated glomerular filtrat ion rate (GFR) Americanon 03-29-2024 Estimated GFR (MDRD) Amer 95 mL/min >60 [facility] Comment on above: GFR Calc Gamma glutamyl transferase ( GGT) measurementon 03-29-2024 Amylase [Catalytic activity/Vol] 22 U/L 0-65 [facility] Comment on above: Performed at: [employer] [facility] [employer] [address] [id number] Director: Arlyn Avila MD, Phone: [phone] at: [facility] [address] [id number] Director: Dago Will PhD, Phone: [phone] Glomerular filtration rate ( GFR) estimationon 03-29-2024 Estimated GFR (MDRD) Non-Af Amer 78 mL/min >60 [facility] Comment on above: Non- GFR Calc Glucose measurementon 2023 Glucose [Mass/Vol] 107 mg/dL High 74-106 [facility] Comment on above: Fasting Glucose resu lt from 100 to 125 mg/dL suggests IMPAIRED HOMEOSTASIS per A.D.A. criteria. Hematocrit Auto (Bld) [Volum e fraction]on 03-29-2024 Hematocrit (Bld) [Volume fraction] 41.0 % 40-54 [facility] Hemoglobin measurementon Hemoglobin (Bld) [Mass/Vol] 14.4 g/dL 13.0-16.5 [facility] Immature granulocytes/100 WB C Auto (Bld)on 03-29-2024 Immature granulocytes/100 WBC (Bld) 0.200 % 0.0-0.9 [facility] Comment on above: IG% - Immature Granu locytes (promyelocytes, myelocytes and metamyelocytes) > 1% indicates that a LEFT SHIFT is Present. International normalized rat io (INR) calculationon 03-29-2024 INR Coag (Bld) [Relative time] 1.2 {INR} [facility] - Chemistry and C hemistry - challengeon 03-29-2024 AST [Catalytic activity/Vol] 16 U/L 15-37 [facility] Liver Profileon 03-29-2024 Albumin [Mass/Vol] 3.8 g/dL Normal 3.2-5.0 [facility] Comment on above: Performed By: #### L 100.0100, L500.2500, L501.5200 #### [facility] [address] [place], [address] ALK P 59 U/L Normal 45-117 [facility] Comment on above: Performed By: #### L 100.0100, L500.2500, L501.5200 #### [facility] [address] [place], [address] ALT [Catalytic activity/Vol] 22 U/L Normal 16-61 [facility] Comment on above: Performed By: #### L 100.0100, L500.2500, L501.5200 #### [facility] [address] [place], [address] AST [Catalytic activity/Vol] 16 U/L Normal 15-37 [facility] Comment on above: Performed By: #### L 100.0100, L500.2500, L501.5200 #### [facility] [address] [place], [address] Bilirubin [Mass/Vol] 1.60 mg/dL High 0.20-1.00 [facility] Comment on above: Result Comment: For patients on eltrombopag therapy, use of Dimension [place] TBIL is not recommended. Performed By: #### L 100.0100, L500.2500, L501.5200 #### [facility] [address] [place], [address] Bilirubin.direct [Mass/Vol] 0.41 mg/dL High 0.00-0.30 [facility] Comment on above: Performed By: #### L 100.0100, L500.2500, L501.5200 #### [facility] [address] [place], [address] Globulin (S) [Mass/Vol] 3.3 g/dL Normal 2.2-4.2 [facility] Comment on above: Performed By: #### L 100.0100, L500.2500, L501.5200 #### [facility] [address] [place], [address] T PROT 7.1 g/dL Normal 6.4-8.2 [facility] Comment on above: Performed By: #### L 100.0100, L500.2500, L501.5200 #### [facility] [address] [place], [address] Lymphocytes Auto (Unsp spec) [#/Vol]on 03-29-2024 Lymphocytes (Bld) [#/Vol] 1.66 10*3/uL 0.83-4.51 [facility] Lymphocytes/100 WBC Auto (Un sp spec)on 03-29-2024 Lymphocytes/100 WBC (Bld) 27.5 % 19-41 [facility] MCV (mean corpuscular volume ) determinationon 03-29-2024 MCV (RBC) [Entitic vol] 85.6 fL 80-94 [facility] Magnesiumon 03-29-2024 Magnesium [Mass/Vol] 1.8 mg/dL Normal 1.6-2.6 [facility] Comment on above: Performed By: #### L 100.0100, L500.2500, L501.5200 #### [facility] [address] [place], [address] Magnesium measurementon Magnesium [Mass/Vol] 1.8 mg/dL 1.6-2.6 [facility] Mean corpuscular hemoglobin (MCH) determinationon 03-29-2024 MCH (RBC) [Entitic mass] 30.1 pg 27.0-32.0 [facility] Mean corpuscular hemoglobin concentration (MCHC) determinationon 03-29-2024 MCHC (RBC) [Mass/Vol] 35.1 g/dL 32-36 [facility] Mean platelet volume determi nationon 03-29-2024 Platelet mean volume (Bld) [Entitic vol] 9.0 fL 6.2-12.0 [facility] Monocyte percentageon 2023 Monocytes/100 WBC (Bld) 10.4 % High 0-10 [facility] Neutrophil percentageon Neutrophils/100 WBC (Bld) 55.6 % 47-70 [facility] Nucleated red blood cell per centageon 03-29-2024 Nucleated RBC/100 WBC (Bld) [Ratio] 0 % 0-5 [facility] Phosphoruson 03-29-2024 Phosphate [Mass/Vol] 2.3 mg/dL Low 2.5-4.9 [facility] Comment on above: Performed By: #### L 100.0100, L500.2500, L501.5200 #### [facility] [address] [place], [place], [address] Phosphorus measurementon Phosphorus Level 2.3 mg/dL Low 2.5-4.9 [facility] Platelet counton 03-29-2024 Platelets (Bld) [#/Vol] 203 10*3/uL 150-450 [facility] Potassium measurementon Potassium [Moles/Vol] 4.3 mmol/L 3.5-5.1 [facility] Prothrombin Time w/INRon INR Coag (PPP) [Relative time] 1.2 {INR} Normal [facility] Comment on above: Performed By: #### L 100.0100, L500.2500, L501.5200 #### [facility] [address] [place], [address] PT Coag (PPP) [Time] 15.0 s High 11.7-14.9 [facility] Comment on above: Performed By: #### L 100.0100, L500.2500, L501.5200 #### [facility] [address] [place], [address] Prothrombin timeon PT Coag (PPP) [Time] 15.0 s High 11.7-14.9 [facility] RBC Auto (Bld) [#/Vol]on RBC (Bld) [#/Vol] 4.79 10*6/uL 4.6-6.2 [facility] Serum anion gap measuremento n 03-29-2024 Anion gap [Moles/Vol] 6 mmol/L 5-15 [facility] Serum globulin measurementon 03-29-2024 Globulin (S) [Mass/Vol] 3.3 g/dL 2.2-4.2 [facility] Serum or plasma alanine rodas otransferase (ALT) measurementon 03-29-2024 ALT [Catalytic activity/Vol] 22 U/L 16-61 [facility] Serum or plasma albumin ginny urement (mass/volume)on 03-29-2024 Albumin [Mass/Vol] 3.8 g/dL 3.2-5.0 [facility] Serum or plasma alkaline yarelis sphatase measurementon 03-29-2024 ALP [Catalytic activity/Vol] 59 U/L 45-117 [facility] Serum or plasma calcium ginny urement (mass/volume)on 03-29-2024 Calcium [Mass/Vol] 9.0 mg/dL 8.5-10.1 [facility] Serum or plasma creatinine m easurement (mass/volume)on 03-29-2024 Creatinine [Mass/Vol] 1.09 mg/dL 0.70-1.30 [facility] Comment on above: The validity of the calculated GFR & GFRAA in patients over 70 years has not been determined. Clinical correlation is essential. Serum or plasma urea nitroge n measurement (mass/volume)on 03-29-2024 Urea nitrogen [Mass/Vol] 22 mg/dL High 7-18 [facility] Sodium levelon 03-29-2024 Sodium [Moles/Vol] 139 mmol/L 136-145 [facility] Tacrolimus levelon Tacrolimus (Prograf) Level 7.5 ng/mL 2.0-20.0 [facility] Comment on above: Trough (immediately following transplant) 15.0 Trough (steady state, 2 weeks or more after transplant): 3.0 - 8.0 Performed by LC-MS/MS technology. Total proteinon 03-29-2024 Protein [Mass/Vol] 7.1 g/dL 6.4-8.2 [facility] White blood cell (WBC) count on 03-29-2024 WBC (Bld) [#/Vol] 6.0 10*3/uL 4.4-11.0 [facility] CNOVon 02-16-2024 CNOV Office Visit (FERNANDO ) DANNY BEDOYA ([id number]) 1980 M Date Time Provider Department 02/16/24 [...] Father b (more content not included)... Normal [facility] 12 Lead EKGon 02-03-2024 12 Lead EKG [facility] Cardiovascular Services [address] [place] [address] 12 Lead EKG 02/03/24 1137 MR#: [id number] Acct: [id number] Name: DANNY BEDOYA Rep #: [id number] : 1980 43 From: Alexy York MD [...] ECG Confirmed by ALEXY YORK MD ([id number]), content editor TIFFANY COTTON ([id number]) on 02/04/2024 9:24:55 AM Referred By: Confirmed By:ALEXY YORK MD 02/04/24924 Date Alexy York MD CC: Dr. Kirit Moreira MD; Dr. Lexi Barnes MD Signed Normal [facility] Chest 1 View (Portable)on Chest 1 View (Portable) [facility] Imaging Services [address] [place] [id number] Chest 1 View (Portable) MR#: [id number] Acct: [id number] Name: DANNY BEDOYA Rep #: [id number] : 1980 M 43 From: James babin MD PCP: Dr. Lexi Barnes MD Status: REG ER Study: Chest 1 View (Portable) Date of Exam: 02/03/24 Exam# [id number] Ordering Dr: Kirit Moreira MD [id number] STUDY: X-RAY CHEST REASON FOR EXAM: Male, [...] 12:19 EDT Reading Location ID and State: [address] [place] [address] , Service support , CC: Dr. Kirit Moreira MD; Dr. 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 Emergency Department Summary on 02-03-2024 Emergency Department Summary [facility] Medical Records Department [address] [place] [address] Emergency Department Summary 02/03/24 MR#: [id number] Acct: [id number] Name: DANNY BEDOYA Rep #: [id number] : 1980 43 From: Kirit Moreira MD [...] no nausea or vomiting, no diaphoresis. Non-smoker. 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 Normal [facility] .Auto Diffon 10-25-2023 Basophil, Absolute 0.0 10 3/mcL Normal 0.0-0.2 [facility] ([place]) Comment on above: Performed By: #### T ROPHS, CBC, BMP, MDW, GFR, ADIFF, ANEU #### [place] [place], [place] [address] Basophils/100 WBC (Bld) 0.8 % Normal 0.0-2.5 [facility] ([place]) Comment on above: Performed By: #### T ROPHS, CBC, BMP, MDW, GFR, ADIFF, ANEU #### [address] [address] Eosinophil, Absolute 0.4 10 3/mcL Normal 0.0-0.4 [facility] ([place]) Comment on above: Performed By: #### T ROPHS, CBC, BMP, MDW, GFR, ADIFF, ANEU #### [address] [address] Eosinophils/100 WBC (Bld) 8.4 % High 0.0-7.0 [facility] ([place]) Comment on above: Performed By: #### T ROPHS, CBC, BMP, MDW, GFR, ADIFF, ANEU #### [address] [address] Lymphocyte, Absolute 0.8 10 3/mcL Normal 0.8-3.9 [facility] ([place]) Comment on above: Performed By: #### T ROPHS, CBC, BMP, MDW, GFR, ADIFF, ANEU #### [address] [address] Lymphocytes/100 WBC (Bld) 17.0 % Normal 10.0-50.0 [facility] ([place]) Comment on above: Performed By: #### T ROPHS, CBC, BMP, MDW, GFR, ADIFF, ANEU #### [address] [address] Monocyte, Absolute 0.5 10 3/mcL Normal 0.2-1.0 [facility] ([place]) Comment on above: Performed By: #### T ROPHS, CBC, BMP, MDW, GFR, ADIFF, ANEU #### [address] [address] Monocytes/100 WBC (Bld) 9.9 % Normal 1.7-13.0 [facility] ([place]) Comment on above: Performed By: #### T ROPHS, CBC, BMP, MDW, GFR, ADIFF, ANEU #### [address] [address] Neutrophils/100 WBC (Bld) 63.9 % Normal 37.0-80.0 [facility] ([place]) Comment on above: Performed By: #### T ANUPAM SINGH BMP, MDW, GFR, ADIFF, ANEU #### [employer] [address] [address] .GFRon 10-25-2023 GFR Non- 75 ml/min/1.73sqm Normal [facility] ([place]) Comment on above: Result Comment: GFR Population [...] BMP, MDW, GFR, ADIFF, ANEU #### [employer] [address] [address] GFR 90 ml/min/1.73sqm Normal [facility] ([place]) Comment on above: Result Comment: GFR Population [...] CBC, BMP, MDW, GFR, ADIFF, ANEU #### [address] [address] .MDWon 10-25-2023 Monocyte Distribution Width 18.42 Normal 0.00-20.00 [facility] ([place]) Comment on above: Result Comment: For ED adult patients suspected of sepsis, MDW<=20.0 does not rule out sepsis or risk of sepsis Performed By: #### T ROPHS, CBC, BMP, MDW, GFR, ADIFF, ANEU #### [address] [address] .NEUABSon 10-25-2023 Neutrophil, Absolute 3.0 10 3/mcL Normal 2.9-6.2 [facility] ([place]) Comment on above: Performed By: #### T SAMANTHA, CBC, BMP, MDW, GFR, ADIFF, ANEU #### [address] [address] BMPon 10-25-2023 BUN/Creatinine Ratio 15 ratio Normal 7-27 [facility] ([place]) Comment on above: Performed By: #### T SAMANTHA, CBC, BMP, MDW, GFR, ADIFF, ANEU #### [address] [address] Calcium [Mass/Vol] 9.3 mg/dL Normal 8.4-10.2 [facility] ([place]) Comment on above: Performed By: #### T SAMANTHA, CBC, BMP, MDW, GFR, ADIFF, ANEU #### [address] [address] Chloride [Moles/Vol] 105 mmol/L Normal 98-107 [facility] ([place]) Comment on above: Performed By: #### T EMELYNHS, CBC, BMP, MDW, GFR, ADIFF, ANEU #### [address] [address] CO2 [Moles/Vol] 24 mmol/L Normal 22-29 [facility] ([place]) Comment on above: Performed By: #### T EMELYNHS, CBC, BMP, MDW, GFR, ADIFF, ANEU #### [address] [address] Creatinine [Mass/Vol] 1.08 mg/dL Normal 0.70-1.30 [facility] ([place] Comment on above: Performed By: #### T SAMANTHA, CBC, BMP, MDW, GFR, ADIFF, ANEU #### [address] [address] Electrolyte Balance 12.0 mEq/L Normal 4.0-15.0 [facility] ([place]) Comment on above: Performed By: #### T SAMANTHA, CBC, BMP, MDW, GFR, ADIFF, ANEU #### [address] [address] Glucose [Mass/Vol] 114 mg/dL High 70-105 [facility] ([place]) Comment on above: Performed By: #### T SAMANTHA, CBC, BMP, MDW, GFR, ADIFF, ANEU #### [address] [address] Potassium [Moles/Vol] 4.0 mmol/L Normal 3.5-5.1 [facility] ([place] Comment on above: Performed By: #### T SAMANTHA, CBC, BMP, MDW, GFR, ADIFF, ANEU #### [address] [address] Sodium [Moles/Vol] 141 mmol/L Normal 136-145 [facility] ([place]) Comment on above: Performed By: #### T SAMANTHA, CBC, BMP, MDW, GFR, ADIFF, ANEU #### [address] [address] Urea nitrogen [Mass/Vol] 16 mg/dL Normal 7-18 [facility] ([place]) Comment on above: Performed By: #### T SAMANTHA, CBC, BMP, MDW, GFR, ADIFF, ANEU #### [address] [address] CBCon 10-25-2023 Erythrocyte distribution width (RBC) [Ratio] 14.3 % Normal 11.5-14.5 [facility] ([place] Comment on above: Performed By: #### T SAMANTHA, CBC, BMP, MDW, GFR, ADIFF, ANEU #### [place] [address] Hematocrit (Bld) [Volume fraction] 43.3 % Normal 42.0-52.0 [facility] ([place] Comment on above: Performed By: #### T EMELYNHS, CBC, BMP, MDW, GFR, ADIFF, ANEU #### [place] [address] Hgb 15.0 G/dL Normal 14.0-18.0 [facility] ([place] Comment on above: Performed By: #### T SAMANTHA, CBC, BMP, MDW, GFR, ADIFF, ANEU #### [place] [address] MCH (RBC) [Entitic mass] 30.3 pg Normal 27.0-31.2 [facility] ([place] Comment on above: Performed By: #### T SAMANTHA, CBC, BMP, MDW, GFR, ADIFF, ANEU #### [place] [address] MCHC 34.5 G/dL Normal 31.8-35.4 [facility] ([place] Comment on above: Performed By: #### T SAMANTHA, CBC, BMP, MDW, GFR, ADIFF, ANEU #### [place] [address] MCV (RBC) [Entitic vol] 87.7 fL Normal 80.0-94.0 [facility] ([place] Comment on above: Performed By: #### T SAMANTHA, CBC, BMP, MDW, GFR, ADIFF, ANEU #### [place] [address] Platelet 159 10 3/mcL Normal 130-400 [facility] ([place] Comment on above: Performed By: #### T EMELYNHS, CBC, BMP, MDW, GFR, ADIFF, ANEU #### [place] [id number] Platelet mean volume (Bld) [Entitic vol] 6.6 fL Low 7.4-10.4 [facility] ([place] Comment on above: Performed By: #### T SAMANTHA, CBC, BMP, MDW, GFR, ADIFF, ANEU #### [address] [address] RBC 4.94 10 6/mcL Normal 4.04-6.13 [facility] ([place] Comment on above: Performed By: #### T SAMANTHA, CBC, BMP, MDW, GFR, ADIFF, ANEU #### [place] [id number] [place] [address] WBC 4.8 10 3/mcL Normal 4.6-10.8 [facility] ([place] Comment on above: Performed By: #### T SAMANTHA, CBC, BMP, MDW, GFR, ADIFF, ANEU #### [place] [address] CVFLURVon 10-25-2023 FLU A PCR Negative Normal Negative [facility] ([place] Comment on above: Performed By: #### C VFLURV #### [place] [id number] FLU B PCR Negative Normal Negative [facility] ([place] Comment on above: Performed By: #### C VFLURV #### [place] [address] RSV PCR Negative Normal Negative [facility]) Comment on above: Performed By: #### C VFLURV #### [place] [address] SARS-CoV-2 (COVID-19) RNA DANA+probe Ql (Unsp spec) Negative Normal Negative [facility]) Comment on above: Result Comment: Resu [...] inaccurate positive results. Performed By: #### [facility] #### [address] [place] [id number] [place], [place] [address] LABORATORYOrdered By: SYSTEM SYSTEM on 10-25-2023 Basophil, [...] ng/L Male: 0-76 ng/L Testing performed on [employer] using a homogeneous sandwich chemiluminescent immunoassay based on [employer] technology. Urea nitrogen [Mass/Vol] 16 mg/dL Normal [...] influenza vaccines may cause inaccurate positive results. [facility] 10-25-2023 High Sensitivity Troponin I 5 ng/L Normal 0-76 [facility] ([place]) Comment on above: Result Comment: High Sensitive Troponin I Reference Ranges: Female: 0-51 ng/L Male: 0-76 ng/L Testing performed on [employer] using a homogeneous sandwich chemiluminescent immunoassay based on [employer] technology. Performed By: #### T ROPHS, CBC, BMP, MDW, GFR, ADIFF, ANEU #### [address] [address] XR CHEST 1 VIEWon 10-25-2023 XR CHEST [...] 10/25/2023 10:36:24 PM Ordering Provider: YVONNE MACE [facility] ([place]) Tacrolimus (Prograf)on 09-18 Tacrolimus (Bld) [Mass/Vol] 6.1 ng/mL Normal 2.0-20.0 [facility] Comment on above: Order Comment: Test( s) 601316-[id number] ([id number]), Bloodwas developed and its performance characteristicsdetermined by [employer]. It has not been cleared or approvedby the Food and Drug Administration. Result Comment: Trou gh (immediately following transplant) 15.0 Trough (steady state, 2 weeks or more after transplant): 3.0 - 8.0 Performed by LC-MS/MS technology. Performed at: [address] [id number] Exercise Physiologist Certified: Arlyn Avila MD, Phone: [phone] Performed By: #### L 100.0100, L500.2500, L501.5200 #### [facility] [address] [place], [place], [id number] Basic Metabolic Profile (BMP )on 09-15-2023 BUN/CRE 22.6 RATIO High 02-14 [facility] Comment on above: Performed By: #### L 100.0100, L500.2500 #### [facility] [address] [place], [place], [id number] CA,Total 9.2 mg/dL Normal 8.5-10.1 [facility] Comment on above: Performed By: #### L 100.0100, L500.2500 #### [facility] [address] [place], [address] Chloride [Moles/Vol] 108 mmol/L High 98-107 [facility] Comment on above: Performed By: #### L 100.0100, L500.2500 #### [facility] [address] [place], [address] CO2 [Moles/Vol] 23.0 mmol/L Normal 21.0-32.0 [facility] Comment on above: Performed By: #### L 100.0100, L500.2500 #### [facility] [address] [place], [address] Creatinine [Mass/Vol] 1.06 mg/dL Normal 0.70-1.30 [facility] Comment on above: Result Comment: The validity of the calculated GFR GFRAA in patients over 70 years has not been determined. Clinical correlation is essential. Performed By: #### L 100.0100, L500.2500 #### [facility] [address] [place], [address] EST GFR - AA 98 mL/min Normal >60 [facility] Comment on above: Result Comment: Afri can Marshallese GFR Calc Performed By: #### L 100.0100, L500.2500 #### [facility] [address] [place], [address] GAP 6 Normal 5-15 [facility] Comment on above: Performed By: #### L 100.0100, L500.2500 #### [facility] [address] [place], [address] GFR/1.73 sq M.predicted among non-blacks MDRD (S/P/Bld) [Vol rate/Area] 81 mL/min/{1.73_m2} Normal >60 [facility] Comment on above: Result Comment: Non- GFR Calc Performed By: #### L 100.0100, L500.2500 #### [facility] [address] [place], [address] Glucose [Mass/Vol] 101 mg/dL Normal 74-106 [facility] Comment on above: Result Comment: Fast ing Glucose result from 100 to 125 mg/dL suggests IMPAIRED HOMEOSTASIS per A.D.A. criteria. Performed By: #### L 100.0100, L500.2500 #### [facility] [address] [place], [address] Potassium [Moles/Vol] 3.6 mmol/L Normal 3.5-5.1 [facility] Comment on above: Performed By: #### L 100.0100, L500.2500 #### [facility] [address] [place], [address] Sodium [Moles/Vol] 137 mmol/L Normal 136-145 [facility] Comment on above: Performed By: #### L 100.0100, L500.2500 #### [facility] [address] [place], [address] Urea nitrogen [Mass/Vol] 24 mg/dL High 7-18 [facility] Comment on above: Performed By: #### L 100.0100, L500.2500 #### [facility] [address] [place], [address] CBC W/Diff, Automatedon 05-2 0-2024 Absolute Lymph 1.47 X10 3/uL Normal 0.83-4.51 [facility] Comment on above: Performed By: #### L 100.0100, L500.2500 #### [facility] [address] [place], [address] Absolute Neut 2.9 X10 3/uL Normal 2.0-7.7 [facility] Comment on above: Performed By: #### L 100.0100, L500.2500 #### [facility] [address] [place], [address] Basophils/100 WBC (Bld) 1.0 % Normal 0-1 [facility] Comment on above: Performed By: #### L 100.0100, L500.2500 #### [facility] [address] [place], [address] Eosinophils/100 WBC (Bld) 6.0 % High 0-5 [facility] Comment on above: Performed By: #### L 100.0100, L500.2500 #### [facility] [address] [place], [address] Erythrocyte distribution width (RBC) [Ratio] 12.6 % Normal 11.6-14.6 [facility] Comment on above: Performed By: #### L 100.0100, L500.2500 #### [facility] [address] [place], [address] Hematocrit (Bld) [Volume fraction] 39.7 % Low 40-54 [facility] Comment on above: Performed By: #### L 100.0100, L500.2500 #### [facility] [address] [place], [address] Hemoglobin (Bld) [Mass/Vol] 13.7 g/dL Normal 13.0-16.5 [facility] Comment on above: Performed By: #### L 100.0100, L500.2500 #### [facility] [address] [place], [address] IG% 0.200 Normal 0.0-0.9 [facility] Comment on above: Result Comment: IG% - Immature Granulocytes (promyelocytes, myelocytes and metamyelocytes) > 1% indicates that a LEFT SHIFT is Present. Performed By: #### L 100.0100, L500.2500 #### [facility] [address] [place], [address] Lymphocytes/100 WBC (Bld) 28.3 % Normal 19-41 [facility] Comment on above: Performed By: #### L 100.0100, L500.2500 #### [facility] [address] [place], [address] MCH (RBC) [Entitic mass] 29.7 pg Normal 27.0-32.0 [facility] Comment on above: Performed By: #### L 100.0100, L500.2500 #### [facility] [address] [place], [address] MCHC (RBC) [Mass/Vol] 34.5 g/dL Normal 32-36 [facility] Comment on above: Performed By: #### L 100.0100, L500.2500 #### [facility] [address] [place], [address] MCV (RBC) [Entitic vol] 85.9 fL Normal 80-94 [facility] Comment on above: Performed By: #### L 100.0100, L500.2500 #### [facility] [address] [place], [address] Monocytes/100 WBC (Bld) 8.5 % Normal 0-10 [facility] Comment on above: Performed By: #### L 100.0100, L500.2500 #### [facility] [address] [place], [address] Neutrophils/100 WBC (Bld) 56.0 % Normal 47-70 [facility] Comment on above: Performed By: #### L 100.0100, L500.2500 #### [facility] [address] [place], [address] Nucleated RBC (Bld) [#/Vol] 0 10*3/uL Normal 0-5 [facility] Comment on above: Performed By: #### L 100.0100, L500.2500 #### [facility] [address] [place], [address] Platelet mean volume (Bld) [Entitic vol] 9.3 fL Normal 6.2-12.0 [facility] Comment on above: Performed By: #### L 100.0100, L500.2500 #### [facility] [address] [place], [address] Platelets (Bld) [#/Vol] 189 10*3/uL Normal 150-450 [facility] Comment on above: Performed By: #### L 100.0100, L500.2500 #### [facility] [address] [place], [address] RBC (Bld) [#/Vol] 4.62 10*6/uL Normal 4.6-6.2 [facility] Comment on above: Performed By: #### L 100.0100, L500.2500 #### [facility] [address] [place], [address] RDW SD 39.2 fl Normal 35.1-43.9 [facility] Comment on above: Performed By: #### L 100.0100, L500.2500 #### [facility] [address] [place], [address] WBC (Bld) [#/Vol] 5.2 10*3/uL Normal 4.4-11.0 [facility] Comment on above: Performed By: #### L 100.0100, L500.2500 #### [facility] [address] [place], [address] GGTPon 09-15-2023 GGTP 40 U/L Normal 15-85 [facility] Comment on above: Performed By: #### L 100.0100, L500.2500, L501.5200 #### [facility] [address] [place], [address] Liver Profileon 09-15-2023 Albumin [Mass/Vol] 3.9 g/dL Normal 3.2-5.0 [facility] Comment on above: Performed By: #### L 100.0100, L500.2500, L501.5200 #### [facility] [address] [place], [address] ALK P 61 U/L Normal 45-117 [facility] Comment on above: Performed By: #### L 100.0100, L500.2500, L501.5200 #### [facility] [address] [place], [address] ALT [Catalytic activity/Vol] 25 U/L Normal 16-61 [facility] Comment on above: Performed By: #### L 100.0100, L500.2500, L501.5200 #### [facility] [address] [place], [address] AST [Catalytic activity/Vol] 21 U/L Normal 15-37 [facility] Comment on above: Performed By: #### L 100.0100, L500.2500, L501.5200 #### [facility] [address] [place], [address] Bilirubin [Mass/Vol] 1.00 mg/dL Normal 0.20-1.00 [facility] Comment on above: Result Comment: For patients on eltrombopag therapy, use of Dimension [place] TBIL is not recommended. Performed By: #### L 100.0100, L500.2500, L501.5200 #### [facility] [address] [place], [address] Bilirubin.direct [Mass/Vol] 0.27 mg/dL Normal 0.00-0.30 [facility] Comment on above: Performed By: #### L 100.0100, L500.2500, L501.5200 #### [facility] [address] [place], [address] Globulin (S) [Mass/Vol] 3.2 g/dL Normal 2.2-4.2 [facility] Comment on above: Performed By: #### L 100.0100, L500.2500, L501.5200 #### [facility] [address] [place], [address] T PROT 7.1 g/dL Normal 6.4-8.2 [facility] Comment on above: Performed By: #### L 100.0100, L500.2500, L501.5200 #### [facility] [address] [place], [address] Magnesiumon 09-15-2023 Magnesium [Mass/Vol] 1.6 mg/dL Normal 1.6-2.6 [facility] Comment on above: Performed By: #### L 100.0100, L500.2500, L501.5200 #### [facility] [address] [place], [address] Phosphoruson 09-15-2023 Phosphate [Mass/Vol] 2.9 mg/dL Normal 2.5-4.9 [facility] Comment on above: Performed By: #### L 100.0100, L500.2500, L501.5200 #### [facility] [address] [place], [address] Prothrombin Time w/INRon INR Coag (PPP) [Relative time] 1.2 {INR} Normal [facility] Comment on above: Performed By: #### L 100.0100, L500.2500 #### [facility] [address] [place], [address] PT Coag (PPP) [Time] 14.7 s Normal 11.7-14.9 [facility] Comment on above: Performed By: #### L 100.0100, L500.2500 #### [facility] [address] [place], [address] Absolute lymphocyte counton 06-16-2023 Lymphocytes Auto (Unsp spec) [#/Vol] 1.24 10*3/uL 0.83-4.51 [facility] Automated lymphocyte count a s percentage of total leukocyteson 06-16-2023 Lymphocytes/100 WBC Auto (Unsp spec) 23.8 % 19-41 [facility] Basophil percentageon 2023 Basophil percentage 3.0 mg/dL 2.5-4.9 [facility] Basophils/100 WBC (Bld) 1.0 % 0-1 [facility] Bilirubin [Mass/Vol] 1.90 mg/dL 0.20-1.00 [facility] Comment on above: For patients on eltr ombopag therapy, use of Dimension [place] TBIL is not recommended. Chloride [Moles/Vol] 109 mmol/L 98-107 [facility] Eosinophils/100 WBC (Bld) 6.5 % 0-5 [facility] Glucose [Mass/Vol] 121 mg/dL 74-106 [facility] Comment on above: Fasting Glucose resu lt from 100 to 125 mg/dL suggests IMPAIRED HOMEOSTASIS per A.D.A. criteria. Hemoglobin (Bld) [Mass/Vol] 13.8 g/dL 13.0-16.5 [facility] Monocytes/100 WBC (Bld) 10.2 % 0-10 [facility] Neutrophils (Bld) [#/Vol] 3.0 10*3/uL 2.0-7.7 [facility] Neutrophils/100 WBC (Bld) 58.1 % 47-70 [facility] Potassium [Moles/Vol] 4.1 mmol/L 3.5-5.1 [facility] Protein [Mass/Vol] 6.8 g/dL 6.4-8.2 [facility] Sodium [Moles/Vol] 135 mmol/L 136-145 [facility] WBC (Bld) [#/Vol] 5.2 10*3/uL 4.4-11.0 [facility] Determination of erythrocyte mean corpuscular volume (MCV)on 06-16-2023 MCV (RBC) [Entitic vol] 86.5 fL 80-94 [facility] Direct bilirubinon Bilirubin.direct [Mass/Vol] 0.44 mg/dL 0.00-0.30 [facility] Erythrocyte distribution wid th ratioon 06-16-2023 Erythrocyte distribution width (RBC) [Ratio] 13.2 % 11.6-14.6 [facility] Erythrocyte distribution wid th standard deviationon 06-16-2023 Erythrocyte distribution width (RBC) [Entitic vol] 41.1 fL 35.1-43.9 [facility] Hematocrit Auto (Bld) [Volum e fraction]on 06-16-2023 Hematocrit (Bld) [Volume fraction] 40.2 % 40-54 [facility] Immature granulocytes/100 WB C Auto (Bld)on 06-16-2023 Immature granulocytes/100 WBC (Bld) 0.400 % 0.0-0.9 [facility] Comment on above: IG% - Immature Granu locytes (promyelocytes, myelocytes and metamyelocytes) > 1% indicates that a LEFT SHIFT is Present. Laboratory - Chemistry and C hemistry - challengeon 06-16-2023 ALP [Catalytic activity/Vol] 76 U/L 45-117 [facility] ALT [Catalytic activity/Vol] 19 U/L 16-61 [facility] Amylase [Catalytic activity/Vol] 46 U/L 15-85 [facility] CO2 [Moles/Vol] 21.0 mmol/L 21.0-32.0 [facility] Globulin (S) [Mass/Vol] 3.0 g/dL 2.2-4.2 [facility] Magnesium [Mass/Vol] 1.7 mg/dL 1.6-2.6 [facility] Urea nitrogen/Creatinine [Mass ratio] 24.2 mg/mg 10-20 [facility] - Hematology and Cell countson 06-16-2023 MCH (RBC) [Entitic mass] 29.7 pg 27.0-32.0 [facility] MCHC (RBC) [Mass/Vol] 34.3 g/dL 32-36 [facility] Nucleated RBC/100 WBC (Bld) [Ratio] 0 % 0-5 [facility] Platelet mean volume (Bld) [Entitic vol] 9.4 fL 6.2-12.0 [facility] Platelets (Bld) [#/Vol] 169 10*3/uL 150-450 [facility] No Panel Informationon 06-16 Estimated GFR (MDRD) Amer 85 mL/min >60 [facility] Comment on above: GFR Calc Estimated GFR (MDRD) Non-Af Amer 70 mL/min >60 [facility] Comment on above: Non- GFR Calc Tacrolimus (Prograf) Level 8.6 ng/mL 2.0-20.0 [facility] Comment on above: Trough (immediately following transplant) 15.0 Trough (steady state, 2 weeks or more after transplant): 3.0 - 8.0 Performed by LC-MS/MS technology.Performed at: [employer] [id number] Director: Arlyn Avila MD, Phone: [phone] RBC Auto (Bld) [#/Vol]on RBC (Bld) [#/Vol] 4.65 10*6/uL 4.6-6.2 [facility] Serum or plasma calcium ginny urement (mass/volume)on 06-16-2023 Calcium [Mass/Vol] 8.8 mg/dL 8.5-10.1 [facility] Serum or plasma creatinine m easurement (mass/volume)on 06-16-2023 Creatinine [Mass/Vol] 1.20 mg/dL 0.70-1.30 [facility] Comment on above: The validity of the calculated GFR & GFRAA in patients over 70 years has not been determined. Clinical correlation is essential. Serum or plasma urea nitroge n measurement (mass/volume)on 06-16-2023 Urea nitrogen [Mass/Vol] 29 mg/dL 7-18 [facility] Thin prep Papanicolaou smear with manual screeningon 06-16-2023 Thin prep Papanicolaou smear with manual screening 3.8 g/dL 3.2-5.0 [facility] Thin prep Papanicolaou smear with manual screening 14 U/L 15-37 [facility] Thin prep Papanicolaou smear with manual screening 5 5-15 [facility] Absolute lymphocyte counton 03-10-2023 Lymphocytes Auto (Unsp spec) [#/Vol] 1.26 10*3/uL 0.83-4.51 [facility] Basophil percentageon 2022 Basophil percentage 3.3 mg/dL 2.5-4.9 [facility] Basophils/100 WBC (Bld) 1.2 % 0-1 [facility] Bilirubin [Mass/Vol] 1.00 mg/dL 0.20-1.00 [facility] Comment on above: For patients on eltr ombopag therapy, use of Dimension [place] TBIL is not recommended. Chloride [Moles/Vol] 109 mmol/L 98-107 [facility] Eosinophils/100 WBC (Bld) 4.7 % 0-5 [facility] Glucose [Mass/Vol] 114 mg/dL 74-106 [facility] Comment on above: Fasting Glucose resu lt from 100 to 125 mg/dL suggests IMPAIRED HOMEOSTASIS per A.D.A. criteria. Neutrophils (Bld) [#/Vol] 2.4 10*3/uL 2.0-7.7 [facility] Neutrophils/100 WBC (Bld) 55.3 % 47-70 [facility] Potassium [Moles/Vol] 4.8 mmol/L 3.5-5.1 [facility] Protein [Mass/Vol] 6.8 g/dL 6.4-8.2 [facility] Sodium [Moles/Vol] 140 mmol/L 136-145 [facility] WBC (Bld) [#/Vol] 4.3 10*3/uL 4.4-11.0 [facility] Blood erythrocytes count (nu mber/volume)on 03-10-2023 RBC (Bld) [#/Vol] 4.36 10*6/uL 4.6-6.2 [facility] Blood hemoglobin measurement (mass/volume)on 03-10-2023 Hemoglobin (Bld) [Mass/Vol] 12.7 g/dL 13.0-16.5 [facility] Blood lymphocytes/100 leukoc yteson 03-10-2023 Lymphocytes/100 WBC (Bld) 29.5 % 19-41 [facility] Blood monocytes/100 leukocyt eson 03-10-2023 Monocytes/100 WBC (Bld) 9.1 % 0-10 [facility] Blood platelet mean volumeon 03-10-2023 Platelet mean volume (Bld) [Entitic vol] 9.3 fL 6.2-12.0 [facility] Determination of erythrocyte mean corpuscular volume (MCV)on 03-10-2023 MCV (RBC) [Entitic vol] 90.4 fL 80-94 [facility] Direct bilirubinon Bilirubin.direct [Mass/Vol] 0.26 mg/dL 0.00-0.30 [facility] Hematocrit Auto (Bld) [Volum e fraction]on 03-10-2023 Hematocrit (Bld) [Volume fraction] 39.4 % 40-54 [facility] Laboratory - Chemistry and C hemistry - challengeon 03-10-2023 ALP [Catalytic activity/Vol] 83 U/L 45-117 [facility] ALT [Catalytic activity/Vol] 28 U/L 16-61 [facility] Amylase [Catalytic activity/Vol] 44 U/L 15-85 [facility] CO2 [Moles/Vol] 24.0 mmol/L 21.0-32.0 [facility] Globulin (S) [Mass/Vol] 3.1 g/dL 2.2-4.2 [facility] Magnesium [Mass/Vol] 2.0 mg/dL 1.6-2.6 [facility] Urea nitrogen/Creatinine [Mass ratio] 25.2 mg/mg 10-20 [facility] - Hematology and Cell countson 03-10-2023 Erythrocyte distribution width (RBC) [Entitic vol] 40.9 fL 35.1-43.9 [facility] Erythrocyte distribution width (RBC) [Ratio] 12.4 % 11.6-14.6 [facility] Immature granulocytes/100 WBC (Bld) 0.200 % 0.0-0.9 [facility] Comment on above: IG% - Immature Granu locytes (promyelocytes, myelocytes and metamyelocytes) > 1% indicates that a LEFT SHIFT is Present. MCH (RBC) [Entitic mass] 29.1 pg 27.0-32.0 [facility] Nucleated RBC/100 WBC (Bld) [Ratio] 0 % 0-5 [facility] MCHC Auto (RBC) [Mass/Vol]on 03-10-2023 MCHC (RBC) [Mass/Vol] 32.2 g/dL 32-36 [facility] No Panel Informationon 03-10 Estimated GFR (MDRD) Amer 77 mL/min >60 [facility] Comment on above: GFR Calc Estimated GFR (MDRD) Non-Af Amer 63 mL/min >60 [facility] [facility] Comment on above: Non- GFR Calc Tacrolimus (Prograf) Level 10.4 ng/mL 2.0-20.0 [facility] Comment on above: Trough (immediately following transplant) 15.0 Trough (steady state, 2 weeks or more after transplant): 3.0 - 8.0 Performed by LC-MS/MS technology.Performed at: [id number] [id number] Director: Arlyn Avila MD, Phone: [phone] Platelets bldon 03-10-2023 Platelets (Bld) [#/Vol] 151 10*3/uL 150-450 [facility] Serum or plasma albumin ginny urement (mass/volume)on 03-10-2023 Albumin [Mass/Vol] 3.7 g/dL 3.2-5.0 [facility] Serum or plasma calcium ginny urement (mass/volume)on 03-10-2023 Calcium [Mass/Vol] 8.6 mg/dL 8.5-10.1 [facility] Serum or plasma creatinine m easurement (mass/volume)on 03-10-2023 Creatinine [Mass/Vol] 1.31 mg/dL 0.70-1.30 [facility] Comment on above: The validity of the calculated GFR & GFRAA in patients over 70 years has not been determined. Clinical correlation is essential. Serum or plasma urea nitroge n measurement (mass/volume)on 03-10-2023 Urea nitrogen [Mass/Vol] 33 mg/dL 7-18 [facility] Thin prep Papanicolaou smear with manual screeningon 03-10-2023 Thin prep Papanicolaou smear with manual screening 18 U/L 15-37 [facility] Thin prep Papanicolaou smear with manual screening 7 5-15 [facility] Absolute lymphocyte counton 09-18-2022 Lymphocytes Auto (Unsp spec) [#/Vol] 1.49 10*3/uL 0.83-4.51 [facility] Basophil percentageon 2022 Basophil percentage 2.5 mg/dL 2.5-4.9 [facility] Basophils/100 WBC (Bld) 1.0 % 0-1 [facility] Bilirubin [Mass/Vol] 0.90 mg/dL 0.20-1.00 [facility] Comment on above: For patients on eltr ombopag therapy, use of Dimension [place] TBIL is not recommended. Chloride [Moles/Vol] 111 mmol/L 98-107 [facility] Eosinophils/100 WBC (Bld) 4.4 % 0-5 [facility] Glucose [Mass/Vol] 116 mg/dL 74-106 [facility] Comment on above: Fasting Glucose resu lt from 100 to 125 mg/dL suggests IMPAIRED HOMEOSTASIS per A.D.A. criteria. Neutrophils (Bld) [#/Vol] 2.8 10*3/uL 2.0-7.7 [facility] Neutrophils/100 WBC (Bld) 54.9 % 47-70 [facility] Potassium [Moles/Vol] 4.4 mmol/L 3.5-5.1 [facility] Protein [Mass/Vol] 7.1 g/dL 6.4-8.2 [facility] Sodium [Moles/Vol] 139 mmol/L 136-145 [facility] WBC (Bld) [#/Vol] 5.0 10*3/uL 4.4-11.0 [facility] Blood erythrocytes count (nu mber/volume)on 09-18-2022 RBC (Bld) [#/Vol] 4.65 10*6/uL 4.6-6.2 [facility] Blood hemoglobin measurement (mass/volume)on 09-18-2022 Hemoglobin (Bld) [Mass/Vol] 13.9 g/dL 13.0-16.5 [facility] Blood lymphocytes/100 leukoc yteson 09-18-2022 Lymphocytes/100 WBC (Bld) 29.6 % 19-41 [facility] Blood monocytes/100 leukocyt eson 09-18-2022 Monocytes/100 WBC (Bld) 9.7 % 0-10 [facility] Blood platelet mean volumeon 09-18-2022 Platelet mean volume (Bld) [Entitic vol] 9.5 fL 6.2-12.0 [facility] Determination of erythrocyte mean corpuscular volume (MCV)on 09-18-2022 MCV (RBC) [Entitic vol] 89.0 fL 80-94 [facility] Direct bilirubinon Bilirubin.direct [Mass/Vol] 0.25 mg/dL 0.00-0.30 [facility] Hematocrit Auto (Bld) [Volum e fraction]on 09-18-2022 Hematocrit (Bld) [Volume fraction] 41.4 % 40-54 [facility] INR in Blood by Coagulation assayon 09-18-2022 INR Coag (Bld) [Relative time] 1.1 {INR} [facility] Laboratory - Chemistry and C hemistry - challengeon 09-18-2022 ALP [Catalytic activity/Vol] 99 U/L 45-117 [facility] ALT [Catalytic activity/Vol] 22 U/L 16-61 [facility] Amylase [Catalytic activity/Vol] 85 U/L 15-85 [facility] CO2 [Moles/Vol] 20.0 mmol/L 21.0-32.0 [facility] Globulin (S) [Mass/Vol] 3.5 g/dL 2.2-4.2 [facility] Magnesium [Mass/Vol] 1.8 mg/dL 1.6-2.6 [facility] Urea nitrogen/Creatinine [Mass ratio] 18.3 mg/mg 10-20 [facility] Laboratory - Coagulationon 0 09-18-2022 PT Coag (PPP) [Time] 14.7 s 11.7-14.9 [facility] Laboratory - Hematology and Cell countson 09-18-2022 Erythrocyte distribution width (RBC) [Entitic vol] 43.6 fL 35.1-43.9 [facility] Erythrocyte distribution width (RBC) [Ratio] 13.6 % 11.6-14.6 [facility] Immature granulocytes/100 WBC (Bld) 0.400 % 0.0-0.9 [facility] Comment on above: IG% - Immature Granu locytes (promyelocytes, myelocytes and metamyelocytes) > 1% indicates that a LEFT SHIFT is Present. MCH (RBC) [Entitic mass] 29.9 pg 27.0-32.0 [facility] Nucleated RBC/100 WBC (Bld) [Ratio] 0 % 0-5 [facility] MCHC Auto (RBC) [Mass/Vol]on 09-18-2022 MCHC (RBC) [Mass/Vol] 33.6 g/dL 32-36 [facility] No Panel Informationon 09-18 Estimated GFR (MDRD) Amer 100 mL/min >60 [facility] Comment on above: GFR Calc Estimated GFR (MDRD) Non-Af Amer 83 mL/min >60 [facility] Comment on above: Non- GFR Calc Tacrolimus (Prograf) Level 9.8 ng/mL 2.0-20.0 [facility] Comment on above: Trough (immediately following transplant) 15.0 Trough (steady state, 2 weeks or more after transplant): 3.0 - 8.0 Performed by LC-MS/MS technology.Performed at: [id number] [id number] Director: Arlyn Avila MD, Phone: [phone] Platelets bldon 09-18-2022 Platelets (Bld) [#/Vol] 184 10*3/uL 150-450 [facility] Serum or plasma albumin ginny urement (mass/volume)on 09-18-2022 Albumin [Mass/Vol] 3.6 g/dL 3.2-5.0 [facility] Serum or plasma calcium ginny urement (mass/volume)on 09-18-2022 Calcium [Mass/Vol] 8.6 mg/dL 8.5-10.1 [facility] Serum or plasma creatinine m easurement (mass/volume)on 09-18-2022 Creatinine [Mass/Vol] 1.04 mg/dL 0.70-1.30 [facility] Comment on above: The validity of the calculated GFR & GFRAA in patients over 70 years has not been determined. Clinical correlation is essential. Serum or plasma urea nitroge n measurement (mass/volume)on 09-18-2022 Urea nitrogen [Mass/Vol] 19 mg/dL 7-18 [facility] Thin prep Papanicolaou smear with manual screeningon 09-18-2022 Thin prep Papanicolaou smear with manual screening 19 U/L 15-37 [facility] Thin prep Papanicolaou smear with manual screening 8 5-15 [facility] Absolute lymphocyte counton 07-31-2022 Lymphocytes Auto (Unsp spec) [#/Vol] 1.31 10*3/uL 0.83-4.51 [facility] Basophil percentageon 2022 Basophil percentage 2.4 mg/dL 2.5-4.9 [facility] Basophils/100 WBC (Bld) 0.8 % 0-1 [facility] Bilirubin [Mass/Vol] 0.80 mg/dL 0.20-1.00 [facility] Comment on above: For patients on eltr ombopag therapy, use of Dimension [place] TBIL is not recommended. Chloride [Moles/Vol] 108 mmol/L 98-107 [facility] Eosinophils/100 WBC (Bld) 4.3 % 0-5 [facility] Glucose [Mass/Vol] 105 mg/dL 74-106 [facility] Comment on above: Fasting Glucose resu lt from 100 to 125 mg/dL suggests IMPAIRED HOMEOSTASIS per A.D.A. criteria. Neutrophils (Bld) [#/Vol] 3.0 10*3/uL 2.0-7.7 [facility] Neutrophils/100 WBC (Bld) 58.3 % 47-70 [facility] Potassium [Moles/Vol] 4.3 mmol/L 3.5-5.1 [facility] Protein [Mass/Vol] 6.6 g/dL 6.4-8.2 [facility] Sodium [Moles/Vol] 137 mmol/L 136-145 [facility] WBC (Bld) [#/Vol] 5.1 10*3/uL 4.4-11.0 [facility] Blood erythrocytes count (nu mber/volume)on 07-31-2022 RBC (Bld) [#/Vol] 4.35 10*6/uL 4.6-6.2 [facility] Blood hemoglobin measurement (mass/volume)on 07-31-2022 Hemoglobin (Bld) [Mass/Vol] 12.9 g/dL 13.0-16.5 [facility] Blood lymphocytes/100 leukoc yteson 07-31-2022 Lymphocytes/100 WBC (Bld) 25.6 % 19-41 [facility] Blood monocytes/100 leukocyt eson 07-31-2022 Monocytes/100 WBC (Bld) 10.4 % 0-10 [facility] Blood platelet mean volumeon 07-31-2022 Platelet mean volume (Bld) [Entitic vol] 9.4 fL 6.2-12.0 [facility] Determination of erythrocyte mean corpuscular volume (MCV)on 07-31-2022 MCV (RBC) [Entitic vol] 88.7 fL 80-94 [facility] Direct bilirubinon Bilirubin.direct [Mass/Vol] 0.25 mg/dL 0.00-0.30 [facility] Hematocrit Auto (Bld) [Volum e fraction]on 07-31-2022 Hematocrit (Bld) [Volume fraction] 38.6 % 40-54 [facility] INR in Blood by Coagulation assayon 07-31-2022 INR Coag (Bld) [Relative time] 1.2 {INR} [facility] Laboratory - Chemistry and C hemistry - challengeon 07-31-2022 ALP [Catalytic activity/Vol] 102 U/L 45-117 [facility] ALT [Catalytic activity/Vol] 38 U/L 16-61 [facility] Amylase [Catalytic activity/Vol] 103 U/L 15-85 [facility] CO2 [Moles/Vol] 21.0 mmol/L 21.0-32.0 [facility] Globulin (S) [Mass/Vol] 3.2 g/dL 2.2-4.2 [facility] Magnesium [Mass/Vol] 1.6 mg/dL 1.6-2.6 [facility] Urea nitrogen/Creatinine [Mass ratio] 18.3 mg/mg 10-20 [facility] Laboratory - Coagulationon 0 07-31-2022 PT Coag (PPP) [Time] 15.1 s 11.7-14.9 [facility] Laboratory - Hematology and Cell countson 07-31-2022 Erythrocyte distribution width (RBC) [Entitic vol] 41.3 fL 35.1-43.9 [facility] Erythrocyte distribution width (RBC) [Ratio] 12.6 % 11.6-14.6 [facility] Immature granulocytes/100 WBC (Bld) 0.600 % 0.0-0.9 [facility] Comment on above: IG% - Immature Granu locytes (promyelocytes, myelocytes and metamyelocytes) > 1% indicates that a LEFT SHIFT is Present. MCH (RBC) [Entitic mass] 29.7 pg 27.0-32.0 [facility] Nucleated RBC/100 WBC (Bld) [Ratio] 0 % 0-5 [facility] MCHC Auto (RBC) [Mass/Vol]on 07-31-2022 MCHC (RBC) [Mass/Vol] 33.4 g/dL 32-36 [facility] No Panel Informationon 07-31 Estimated GFR (MDRD) Amer 90 mL/min >60 [facility] Comment on above: GFR Calc Estimated GFR (MDRD) Non-Af Amer 74 mL/min >60 [facility] Comment on above: Non- GFR Calc Platelets bldon 07-31-2022 Platelets (Bld) [#/Vol] 171 10*3/uL 150-450 [facility] Serum or plasma albumin ginny urement (mass/volume)on 07-31-2022 Albumin [Mass/Vol] 3.4 g/dL 3.2-5.0 [facility] Serum or plasma calcium ginny urement (mass/volume)on 07-31-2022 Calcium [Mass/Vol] 8.6 mg/dL 8.5-10.1 [facility] Serum or plasma creatinine m easurement (mass/volume)on 07-31-2022 Creatinine [Mass/Vol] 1.15 mg/dL 0.70-1.30 [facility] Comment on above: The validity of the calculated GFR & GFRAA in patients over 70 years has not been determined. Clinical correlation is essential. Serum or plasma urea nitroge n measurement (mass/volume)on 07-31-2022 Urea nitrogen [Mass/Vol] 21 mg/dL 7-18 [facility] Thin prep Papanicolaou smear with manual screeningon 07-31-2022 Thin prep Papanicolaou smear with manual screening 29 U/L 15-37 [facility] Thin prep Papanicolaou smear with manual screening 8 5-15 [facility] Absolute lymphocyte counton 07-17-2022 Lymphocytes Auto (Unsp spec) [#/Vol] 0.98 10*3/uL 0.83-4.51 [facility] Basophil percentageon 2022 Basophils/100 WBC (Bld) 0.9 % 0-1 [facility] Bilirubin [Mass/Vol] 0.90 mg/dL 0.20-1.00 [facility] Comment on above: For patients on eltr ombopag therapy, use of Dimension [place] TBIL is not recommended. Chloride [Moles/Vol] 111 mmol/L 98-107 [facility] Eosinophils/100 WBC (Bld) 6.8 % 0-5 [facility] Glucose [Mass/Vol] 119 mg/dL 74-106 [facility] Comment on above: Fasting Glucose resu lt from 100 to 125 mg/dL suggests IMPAIRED HOMEOSTASIS per A.D.A. criteria. Neutrophils (Bld) [#/Vol] 2.6 10*3/uL 2.0-7.7 [facility] Neutrophils/100 WBC (Bld) 59.4 % 47-70 [facility] Potassium [Moles/Vol] 4.1 mmol/L 3.5-5.1 [facility] Protein [Mass/Vol] 6.7 g/dL 6.4-8.2 [facility] Sodium [Moles/Vol] 140 mmol/L 136-145 [facility] WBC (Bld) [#/Vol] 4.4 10*3/uL 4.4-11.0 [facility] Blood erythrocytes count (nu mber/volume)on 07-17-2022 RBC (Bld) [#/Vol] 4.51 10*6/uL 4.6-6.2 [facility] Blood hemoglobin measurement (mass/volume)on 07-17-2022 Hemoglobin (Bld) [Mass/Vol] 13.6 g/dL 13.0-16.5 [facility] Blood lymphocytes/100 leukoc yteson 07-17-2022 Lymphocytes/100 WBC (Bld) 22.2 % 19-41 [facility] Blood monocytes/100 leukocyt eson 07-17-2022 Monocytes/100 WBC (Bld) 10.2 % 0-10 [facility] Blood platelet mean volumeon 07-17-2022 Platelet mean volume (Bld) [Entitic vol] 9.1 fL 6.2-12.0 [facility] Determination of erythrocyte mean corpuscular volume (MCV)on 07-17-2022 MCV (RBC) [Entitic vol] 89.4 fL 80-94 [facility] Direct bilirubinon 3 Bilirubin.direct [Mass/Vol] 0.29 mg/dL 0.00-0.30 [facility] Hematocrit Auto (Bld) [Volum e fraction]on 07-17-2022 Hematocrit (Bld) [Volume fraction] 40.3 % 40-54 [facility] Laboratory - Chemistry and C hemistry - challengeon 07-17-2022 ALP [Catalytic activity/Vol] 105 U/L 45-117 [facility] ALT [Catalytic activity/Vol] 50 U/L 16-61 [facility] Amylase [Catalytic activity/Vol] 97 U/L 15-85 [facility] CO2 [Moles/Vol] 23.0 mmol/L 21.0-32.0 [facility] Globulin (S) [Mass/Vol] 3.3 g/dL 2.2-4.2 [facility] Urea nitrogen/Creatinine [Mass ratio] 21.0 mg/mg 10-20 [facility] Laboratory - Hematology and Cell countson 07-17-2022 Erythrocyte distribution width (RBC) [Entitic vol] 41.9 fL 35.1-43.9 [facility] Erythrocyte distribution width (RBC) [Ratio] 12.7 % 11.6-14.6 [facility] Immature granulocytes/100 WBC (Bld) 0.500 % 0.0-0.9 [facility] Comment on above: IG% - Immature Granu locytes (promyelocytes, myelocytes and metamyelocytes) > 1% indicates that a LEFT SHIFT is Present. MCH (RBC) [Entitic mass] 30.2 pg 27.0-32.0 [facility] Nucleated RBC/100 WBC (Bld) [Ratio] 0 % 0-5 [facility] MCHC Auto (RBC) [Mass/Vol]on 07-17-2022 MCHC (RBC) [Mass/Vol] 33.7 g/dL 32-36 [facility] No Panel Informationon 07-17 Estimated GFR (MDRD) Amer 99 mL/min >60 [facility] Comment on above: GFR Calc Estimated GFR (MDRD) Non-Af Amer 82 mL/min >60 [facility] Comment on above: Non- GFR Calc Miscellaneous Test See comment [facility] Comment on above: TEST RESULT LIMITSHB V Real-Time PCR, Quant HBV IU/mL HBV DNA not detected IU/mL log10 HBV IU/mL Unable to calculate result since non-numeric result obtained for component test.Test Information: The reportable range for this assay is 10 IU/mL to 1 billion IU/mL. TESTING PERFORMED AT [facility]. ORIGINAL REPORT ON FILE IN LAB CONTAINS ADDITIONAL TEST SITE INFORMATION. Tacrolimus (Prograf) Level 5.7 ng/mL 2.0-20.0 [facility] Comment on above: Trough (immediately following transplant) 15.0 Trough (steady state, 2 weeks or more after transplant): 3.0 - 8.0 Performed by LC-MS/MS technology.Performed at: [address] [id number] Director: Arlyn Avila MD, Phone: [phone] Platelets bldon 07-17-2022 Platelets (Bld) [#/Vol] 159 10*3/uL 150-450 [facility] Serum or plasma albumin ginny urement (mass/volume)on 07-17-2022 Albumin [Mass/Vol] 3.4 g/dL 3.2-5.0 [facility] Serum or plasma calcium ginny urement (mass/volume)on 07-17-2022 Calcium [Mass/Vol] 8.8 mg/dL 8.5-10.1 [facility] Serum or plasma creatinine m easurement (mass/volume)on 07-17-2022 Creatinine [Mass/Vol] 1.05 mg/dL 0.70-1.30 [facility] Comment on above: The validity of the calculated GFR & GFRAA in patients over 70 years has not been determined. Clinical correlation is essential. Serum or plasma urea nitroge n measurement (mass/volume)on 07-17-2022 Urea nitrogen [Mass/Vol] 22 mg/dL 7-18 [facility] Thin prep Papanicolaou smear with manual screeningon 07-17-2022 Thin prep Papanicolaou smear with manual screening 36 U/L 15-37 [facility] Thin prep Papanicolaou smear with manual screening 6 5-15 [facility] Absolute lymphocyte counton 06-20-2022 Lymphocytes Auto (Unsp spec) [#/Vol] 1.25 10*3/uL 0.83-4.51 [facility] Basophil percentageon 2022 Basophil percentage 3.7 mg/dL 2.5-4.9 [facility] Basophils/100 WBC (Bld) 0.6 % 0-1 [facility] Bilirubin [Mass/Vol] 0.70 mg/dL 0.20-1.00 [facility] Comment on above: For patients on eltr ombopag therapy, use of Dimension [place] TBIL is not recommended. Chloride [Moles/Vol] 108 mmol/L 98-107 [facility] Eosinophils/100 WBC (Bld) 6.9 % 0-5 [facility] Glucose [Mass/Vol] 90 mg/dL 74-106 [facility] Neutrophils (Bld) [#/Vol] 2.8 10*3/uL 2.0-7.7 [facility] Neutrophils/100 WBC (Bld) 57.8 % 47-70 [facility] Potassium [Moles/Vol] 4.2 mmol/L 3.5-5.1 [facility] Protein [Mass/Vol] 7.0 g/dL 6.4-8.2 [facility] Sodium [Moles/Vol] 139 mmol/L 136-145 [facility] WBC (Bld) [#/Vol] 4.9 10*3/uL 4.4-11.0 [facility] Blood erythrocytes count (nu mber/volume)on 06-20-2022 RBC (Bld) [#/Vol] 4.35 10*6/uL 4.6-6.2 [facility] Blood hemoglobin measurement (mass/volume)on 06-20-2022 Hemoglobin (Bld) [Mass/Vol] 13.3 g/dL 13.0-16.5 [facility] Blood lymphocytes/100 leukoc yteson 06-20-2022 Lymphocytes/100 WBC (Bld) 25.5 % 19-41 [facility] Blood monocytes/100 leukocyt eson 06-20-2022 Monocytes/100 WBC (Bld) 8.8 % 0-10 [facility] Blood platelet mean volumeon 06-20-2022 Platelet mean volume (Bld) [Entitic vol] 9.2 fL 6.2-12.0 [facility] Determination of erythrocyte mean corpuscular volume (MCV)on 06-20-2022 MCV (RBC) [Entitic vol] 91.0 fL 80-94 [facility] Direct bilirubinon Bilirubin.direct [Mass/Vol] 0.20 mg/dL 0.00-0.30 [facility] Hematocrit Auto (Bld) [Volum e fraction]on 06-20-2022 Hematocrit (Bld) [Volume fraction] 39.6 % 40-54 [facility] INR in Blood by Coagulation assayon 06-20-2022 INR Coag (Bld) [Relative time] 1.1 {INR} [facility] Laboratory - Chemistry and C hemistry - challengeon 06-20-2022 ALP [Catalytic activity/Vol] 117 U/L 45-117 [facility] ALT [Catalytic activity/Vol] 36 U/L 16-61 [facility] Amylase [Catalytic activity/Vol] 89 U/L 15-85 [facility] CO2 [Moles/Vol] 24.0 mmol/L 21.0-32.0 [facility] Globulin (S) [Mass/Vol] 3.5 g/dL 2.2-4.2 [facility] Magnesium [Mass/Vol] 1.9 mg/dL 1.6-2.6 [facility] Urea nitrogen/Creatinine [Mass ratio] 18.2 mg/mg 10-20 [facility] Laboratory - Coagulationon 0 06-20-2022 PT Coag (PPP) [Time] 14.0 s 11.7-14.9 [facility] Laboratory - Hematology and Cell countson 06-20-2022 Erythrocyte distribution width (RBC) [Entitic vol] 41.1 fL 35.1-43.9 [facility] Erythrocyte distribution width (RBC) [Ratio] 12.4 % 11.6-14.6 [facility] Immature granulocytes/100 WBC (Bld) 0.400 % 0.0-0.9 [facility] Comment on above: IG% - Immature Granu locytes (promyelocytes, myelocytes and metamyelocytes) > 1% indicates that a LEFT SHIFT is Present. MCH (RBC) [Entitic mass] 30.6 pg 27.0-32.0 [facility] Nucleated RBC/100 WBC (Bld) [Ratio] 0 % 0-5 [facility] MCHC Auto (RBC) [Mass/Vol]on 06-20-2022 MCHC (RBC) [Mass/Vol] 33.6 g/dL 32-36 [facility] No Panel Informationon 06-20 Estimated GFR (MDRD) Amer 94 mL/min >60 [facility] Comment on above: GFR Calc Estimated GFR (MDRD) Non-Af Amer 78 mL/min >60 [facility] Comment on above: Non- GFR Calc Tacrolimus (Prograf) Level 6.8 ng/mL 2.0-20.0 [facility] Comment on above: Trough (immediately following transplant) 15.0 Trough (steady state, 2 weeks or more after transplant): 3.0 - 8.0 Performed by LC-MS/MS technology.Performed at: [address] [id number] Director: Arlyn Avila MD, Phone: [phone] Platelets bldon 06-20-2022 Platelets (Bld) [#/Vol] 178 10*3/uL 150-450 [facility] Serum or plasma albumin ginny urement (mass/volume)on 06-20-2022 Albumin [Mass/Vol] 3.5 g/dL 3.2-5.0 [facility] Serum or plasma calcium ginny urement (mass/volume)on 06-20-2022 Calcium [Mass/Vol] 9.2 mg/dL 8.5-10.1 [facility] Serum or plasma creatinine m easurement (mass/volume)on 06-20-2022 Creatinine [Mass/Vol] 1.10 mg/dL 0.70-1.30 [facility] Comment on above: The validity of the calculated GFR & GFRAA in patients over 70 years has not been determined. Clinical correlation is essential. Serum or plasma urea nitroge n measurement (mass/volume)on 06-20-2022 Urea nitrogen [Mass/Vol] 20 mg/dL 7-18 [facility] Thin prep Papanicolaou smear with manual screeningon 06-20-2022 Thin prep Papanicolaou smear with manual screening 26 U/L 15-37 [facility] Thin prep Papanicolaou smear with manual screening 7 5-15 [facility] Absolute lymphocyte counton 05-30-2022 Lymphocytes Auto (Unsp spec) [#/Vol] 1.56 10*3/uL 0.83-4.51 [facility] Basophil percentageon 2022 Basophil percentage 2.8 mg/dL 2.5-4.9 [facility] Basophils/100 WBC (Bld) 0.7 % 0-1 [facility] Bilirubin [Mass/Vol] 1.20 mg/dL 0.20-1.00 [facility] Comment on above: For patients on eltr ombopag therapy, use of Dimension [place] TBIL is not recommended. Chloride [Moles/Vol] 109 mmol/L 98-107 [facility] Eosinophils/100 WBC (Bld) 4.7 % 0-5 [facility] Glucose [Mass/Vol] 105 mg/dL 74-106 [facility] Comment on above: Fasting Glucose resu lt from 100 to 125 mg/dL suggests IMPAIRED HOMEOSTASIS per A.D.A. criteria. Neutrophils (Bld) [#/Vol] 1.9 10*3/uL 2.0-7.7 [facility] Neutrophils/100 WBC (Bld) 46.9 % 47-70 [facility] Potassium [Moles/Vol] 4.2 mmol/L 3.5-5.1 [facility] Protein [Mass/Vol] 7.0 g/dL 6.4-8.2 [facility] Sodium [Moles/Vol] 141 mmol/L 136-145 [facility] WBC (Bld) [#/Vol] 4.1 10*3/uL 4.4-11.0 [facility] Blood erythrocytes count (nu mber/volume)on 05-30-2022 RBC (Bld) [#/Vol] 4.27 10*6/uL 4.6-6.2 [facility] Blood hemoglobin measurement (mass/volume)on 05-30-2022 Hemoglobin (Bld) [Mass/Vol] 13.0 g/dL 13.0-16.5 [facility] Blood lymphocytes/100 leukoc yteson 05-30-2022 Lymphocytes/100 WBC (Bld) 38.2 % 19-41 [facility] Blood monocytes/100 leukocyt eson 05-30-2022 Monocytes/100 WBC (Bld) 9.3 % 0-10 [facility] Blood platelet mean volumeon 05-30-2022 Platelet mean volume (Bld) [Entitic vol] 9.5 fL 6.2-12.0 [facility] Determination of erythrocyte mean corpuscular volume (MCV)on 05-30-2022 MCV (RBC) [Entitic vol] 91.3 fL 80-94 [facility] Direct bilirubinon 3 Bilirubin.direct [Mass/Vol] 0.30 mg/dL 0.00-0.30 [facility] Hematocrit Auto (Bld) [Volum e fraction]on 05-30-2022 Hematocrit (Bld) [Volume fraction] 39.0 % 40-54 [facility] [facility] Blood by Coagulation assayon 05-30-2022 INR Coag (Bld) [Relative time] 1.2 {INR} [facility] Laboratory - Chemistry and C hemistry - challengeon 05-30-2022 ALP [Catalytic activity/Vol] 142 U/L 45-117 [facility] ALT [Catalytic activity/Vol] 58 U/L 16-61 [facility] Amylase [Catalytic activity/Vol] 107 U/L 15-85 [facility] CO2 [Moles/Vol] 24.0 mmol/L 21.0-32.0 [facility] Globulin (S) [Mass/Vol] 3.4 g/dL 2.2-4.2 [facility] Magnesium [Mass/Vol] 2.1 mg/dL 1.6-2.6 [facility] Urea nitrogen/Creatinine [Mass ratio] 16.1 mg/mg 10-20 [facility] Laboratory - Coagulationon 0 05-30-2022 PT Coag (PPP) [Time] 15.0 s 11.7-14.9 [facility] Laboratory - Hematology and Cell countson 05-30-2022 Erythrocyte distribution width (RBC) [Entitic vol] 43.0 fL 35.1-43.9 [facility] Erythrocyte distribution width (RBC) [Ratio] 13.0 % 11.6-14.6 [facility] Immature granulocytes/100 WBC (Bld) 0.200 % 0.0-0.9 [facility] Comment on above: IG% - Immature Granu locytes (promyelocytes, myelocytes and metamyelocytes) > 1% indicates that a LEFT SHIFT is Present. MCH (RBC) [Entitic mass] 30.4 pg 27.0-32.0 [facility] Nucleated RBC/100 WBC (Bld) [Ratio] 0 % 0-5 [facility] MCHC Auto (RBC) [Mass/Vol]on 05-30-2022 MCHC (RBC) [Mass/Vol] 33.3 g/dL 32-36 [facility] No Panel Informationon 05-30 Estimated GFR (MDRD) Amer 106 mL/min >60 [facility] Comment on above: GFR Calc Estimated GFR (MDRD) Non-Af Amer 88 mL/min >60 [facility] Comment on above: Non- GFR Calc Tacrolimus (Prograf) Level 6.5 ng/mL 2.0-20.0 [facility] Comment on above: Trough (immediately following transplant) 15.0 Trough (steady state, 2 weeks or more after transplant): 3.0 - 8.0 Performed by LC-MS/MS technology.Performed at: [address] [id number] Director: Arlyn Avila MD, Phone: [phone] Platelets bldon 05-30-2022 Platelets (Bld) [#/Vol] 175 10*3/uL 150-450 [facility] Serum or plasma albumin ginny urement (mass/volume)on 05-30-2022 Albumin [Mass/Vol] 3.6 g/dL 3.2-5.0 [facility] Serum or plasma calcium ginny urement (mass/volume)on 05-30-2022 Calcium [Mass/Vol] 8.9 mg/dL 8.5-10.1 [facility] Serum or plasma creatinine m easurement (mass/volume)on 05-30-2022 Creatinine [Mass/Vol] 0.99 mg/dL 0.70-1.30 [facility] Comment on above: The validity of the calculated GFR & GFRAA in patients over 70 years has not been determined. Clinical correlation is essential. Serum or plasma urea nitroge n measurement (mass/volume)on 05-30-2022 Urea nitrogen [Mass/Vol] 16 mg/dL 7-18 [facility] Thin prep Papanicolaou smear with manual screeningon 05-30-2022 Thin prep Papanicolaou smear with manual screening 41 U/L 15-37 [facility] Thin prep Papanicolaou smear with manual screening 8 5-15 [facility] Differential,Body Fluidson 0 05-12-2021 Other Cells 3 % Normal [facility] Comment on above: Result Comment: Reac tive mesothelial cells and acute inflammation present. No malignant cells identified Chris Junior DO. Revised: Comment was added, verified by TDF at 14:30 on 05/02/21 Performed By: #### D IFBF, AMYM3, FLDCC, ALBM3, LDMS3, GLMS3 #### [facility] [address] [place] [address] Comp Panel with Mg Reflexon 05-08-2021 Bilirubin [Mass/Vol] 27.5 mg/dL High 0.2-1.3 [facility] Comment on above: Performed By: #### C /BLD #### [facility] [address] [place] [address] ALT [Catalytic activity/Vol] 48 U/L Normal 0-49 [facility] Comment on above: Result Comment: The ALT test is performed by an updated assay method. Please note that the reference intervals have been changed and are now sex specific. Performed By: #### C /BLD #### [facility] [address] [place], [place] Calcium [Mass/Vol] 8.0 mg/dL Low 8.4-10.4 [facility] Comment on above: Performed By: #### C /BLD #### [facility] [address] [place], [place] Glucose [Mass/Vol] 97 mg/dL Normal 70-100 [facility] Comment on above: Performed By: #### C /BLD #### [facility] [address] [place], [place] ALP [Catalytic activity/Vol] 307 U/L High 38-126 [facility] Comment on above: Performed By: #### C /BLD #### [facility] [address] [place], [place] Anion gap [Moles/Vol] 9 mmol/L Normal 3-13 [facility] Comment on above: Performed By: #### C /BLD #### [facility] [address] [place], [place] AST [Catalytic activity/Vol] 117 U/L High 15-46 [facility] Comment on above: Performed By: #### C /BLD #### [facility] [address] [place], [place] CO2 [Moles/Vol] 23 mmol/L Normal 22-30 [facility] Comment on above: Performed By: #### C /BLD #### [facility] [address] [place], [place] Creatinine [Mass/Vol] 0.80 mg/dL Normal 0.52-1.25 [facility] Comment on above: Performed By: #### C /BLD #### [facility] [address], [place] eGFR OTHER > 90.0 Normal >60 [facility] Comment on above: Result Comment: KDIG [...] secretion. Performed By: #### C /BLD #### [place] [address] [place], [place] GFR/1.73 sq M.predicted among blacks MDRD (S/P/Bld) [Vol rate/Area] mL/min/{1.73_m2} Normal >60 [facility] Comment on above: Performed By: #### C /BLD #### [place] [address] [place], [place] Protein [Mass/Vol] 6.3 g/dL Normal 6.3-8.2 [facility] Comment on above: Performed By: #### C /BLD #### [address] Urea nitrogen [Mass/Vol] 20 mg/dL High 7-17 [facility] Comment on above: Performed By: #### C /BLD #### [place] [address] [address] [place], [place] Potassium [Moles/Vol] 3.6 mmol/L Normal 3.5-5.1 [facility] Comment on above: Performed By: #### C /BLD #### [address] Sodium [Moles/Vol] 130 mmol/L Low 135-145 [facility] Comment on above: Performed By: #### C /BLD #### [address] Albumin [Mass/Vol] 2.4 g/dL Low 3.5-5.0 [facility] Comment on above: Performed By: #### C /BLD #### [place] [address] [address] [place], [place] Chloride [Moles/Vol] 97 mmol/L Low 98-107 [facility] Comment on above: Performed By: #### C /BLD #### [place] [address] [address] [place], [place] Hemogram w/ Autodiffon 05-08 Erythrocyte distribution width (RBC) [Ratio] 16.0 % High 11.5-14.5 [facility] Comment on above: Performed By: #### C /BLD #### [place] [place] [address] [address] [place], [place] Hematocrit (Bld) [Volume fraction] 31.4 % Low 40.0-52.0 [facility] Comment on above: Performed By: #### C /BLD #### [place] [address] [address] [place], [place] Hemoglobin (Bld) [Mass/Vol] 10.5 g/dL Low 13.0-18.0 [facility] Comment on above: Performed By: #### C /BLD #### [place] [address] [address] [place], [place] MCH (RBC) [Entitic mass] 38.9 pg High 26.0-34.0 [facility] Comment on above: Performed By: #### C /BLD #### [place] [address] [address] [place], [place] MCHC 33.5 % Normal 32.0-36.0 [facility] Comment on above: Performed By: #### C /BLD #### [address] MCV (RBC) [Entitic vol] 116.3 fL High 80.0-98.0 [facility] Comment on above: Performed By: #### C /BLD #### [place] [address] [address] [place], [place] Platelet mean volume (Bld) [Entitic vol] 8.1 fL Normal 7.4-10.4 [facility] Comment on above: Performed By: #### C /BLD #### [place] [address] [address] [place], [place] Platelets (Bld) [#/Vol] 98 10*3/uL Low 140-440 [facility] Comment on above: Performed By: #### C /BLD #### [place] [address] [address] [place], [place] RBC (Bld) [#/Vol] 2.70 10*6/uL Low 4.40-5.90 [facility] Comment on above: Performed By: #### C /BLD #### [place] [address] [place], [place] WBC (Bld) [#/Vol] 15.1 10*3/uL High 3.6-10.7 [facility] Comment on above: Performed By: #### C /BLD #### [address] [address] [address] [place], [place] Manual Diffon 05-08-2021 Abs Baso Cnt 0.0 10*3/uL Normal 0.0-0.2 [facility] Comment on above: Performed By: #### C /BLD #### [address] Abs Eosin Cnt 0.0 10*3/uL Normal 0.0-0.5 [facility] Comment on above: Performed By: #### C /BLD #### [address] [address] [address] [place], [place] Abs Lymph Cnt 0.3 10*3/uL Low 1.1-4.5 [facility] Comment on above: Performed By: #### C /BLD #### [address] Abs Monocyte Cnt 1.5 10*3/uL High 0.2-1.1 [facility] Comment on above: Performed By: #### C /BLD #### [place] [address] [place], [place] Abs Neutrophile Cnt 13.3 10*3/uL High 2.2-8.2 [facility] Comment on above: Performed By: #### C /BLD #### [facility] [address] [place], [place] Anisocytosis Moderate Normal [facility] Comment on above: Performed By: #### C /BLD #### [facility] [address] [place], [place] Bands 2 % Normal 0-3 [facility] Comment on above: Performed By: #### C /BLD #### [facility] [address] [place], [place] Basophils 0 % Normal 0-2 [facility] Comment on above: Performed By: #### C /BLD #### [facility] [address] [place], [place] Cells counted 100 Normal [facility] Comment on above: Performed By: #### C /BLD #### [facility] [address] [place] Eosinophils 0 % Low 1-6 [facility] Comment on above: Performed By: #### C /BLD #### [facility] [address] [place], [place] Lymphocytes 2 % Low 20-40 [facility] Comment on above: Performed By: #### C /BLD #### [facility] [address] [place], [place] Macrocytosis Moderate Normal [facility] Comment on above: Performed By: #### C /BLD #### [facility] [address] [place], [place] Monocytes 10 % Normal 2-10 [facility] Comment on above: Performed By: #### C /BLD #### [facility] [address] [place], [place] Ovalocytes Slight Normal [facility] Comment on above: Performed By: #### C /BLD #### [address] [address] [address] [place], [place] Poikilocytosis Slight Normal [facility] Comment on above: Performed By: #### C /BLD #### [facility] [address] [place], [place] Polychromasia Slight Normal [facility] Comment on above: Performed By: #### C /BLD #### [facility] [address] [place], [place] RBC Morphology See Prev Normal [facility] Comment on above: Performed By: #### C /BLD #### [facility] [address] [place], [place] Seg Neutrophils 86 % High 40-80 [facility] Comment on above: Performed By: #### C /BLD #### [facility] [address] [place], [place] Tear Drop Forms Slight Normal [facility] Comment on above: Performed By: #### C /BLD #### [place] [address] [address] [place], [place] Prothrombin Timeon INR 1.7 High 0.9-1.1 [facility] Comment on above: Result Comment: Herber [...] By: #### C /BLD #### [facility] [address] [place], [place] PT Coag (PPP) [Time] 17.4 s High 9.0-12.0 [facility] Comment on above: Result Comment: . Performed By: #### C /BLD #### [facility] [address], [place] CULTURE BLOODon 05-07-2021 Microscopic examination of blood, culture CULTURE BLOOD --> Status: F No growth at 5 days. Normal [facility] Comment on above: Performed By: #### C /BLD #### [address] [place] [address] [address] [place], [place] CULTURE BLOOD (Two)on 2021 Microscopic examination of blood, culture CULTURE BLOOD (Two) --> Status: F No growth at 5 days. Normal [facility] Comment on above: Performed By: #### C /BLT #### [address] [place] [address] [address] [place], [place] Prothrombin Timeon INR 1.8 High 0.9-1.1 [facility] Comment on above: Result Comment: Herber [...] IFBF, AMYM3, FLDCC, ALBM3, LDMS3, GLMS3 #### [place] [address] [place], [place] PT Coag (PPP) [Time] 18.2 s High 9.0-12.0 [facility] Comment on above: Result Comment: . Performed By: #### D IFBF, AMYM3, FLDCC, ALBM3, LDMS3, GLMS3 #### [address] [place] [address] [place], [place] Calcium,Ionizedon 05-06-2021 Ionized Ca,Measured 3.90 mg/dL Low 4.30-5.20 [facility] Comment on above: Performed By: #### D IFBF, AMYM3, FLDCC, ALBM3, LDMS3, GLMS3 #### [address] pH, Ionized Calcium 7.53 High 7.31-7.46 [facility] Comment on above: Performed By: #### D IFBF, AMYM3, FLDCC, ALBM3, LDMS3, GLMS3 #### [facility] [address] [place], [place] Comp Metabolic Panelon 05-06 Calcium [Mass/Vol] 7.7 mg/dL Low 8.4-10.4 [facility] Comment on above: Performed By: #### D IFBF, AMYM3, FLDCC, ALBM3, LDMS3, GLMS3 #### [address] [place] [address] [address] [place], [place] ALP [Catalytic activity/Vol] 345 U/L High 38-126 [facility] Comment on above: Performed By: #### D IFBF, AMYM3, FLDCC, ALBM3, LDMS3, GLMS3 #### [address] [place] [address] [address] [place], [place] ALT [Catalytic activity/Vol] 42 U/L Normal 0-49 [facility] Comment on above: Result Comment: The ALT test is performed by an updated assay method. Please note that the reference intervals have been changed and are now sex specific. Performed By: #### D IFBF, AMYM3, FLDCC, ALBM3, LDMS3, GLMS3 #### [address] [place] [address] [address] [place], [place] Anion gap [Moles/Vol] 6 mmol/L Normal 3-13 [facility] Comment on above: Performed By: #### D IFBF, AMYM3, FLDCC, ALBM3, LDMS3, GLMS3 #### [address] [place] [address] [address] [place], [place] AST [Catalytic activity/Vol] 129 U/L High 15-46 [facility] Comment on above: Performed By: #### D IFBF, AMYM3, FLDCC, ALBM3, LDMS3, GLMS3 #### [address] [place] [address] [address] [place], [place] Bilirubin [Mass/Vol] 26.2 mg/dL High 0.2-1.3 [facility] Comment on above: Performed By: #### D IFBF, AMYM3, FLDCC, ALBM3, LDMS3, GLMS3 #### [address] [place] [address] [address] [place], [place] CO2 [Moles/Vol] 27 mmol/L Normal 22-30 [facility] Comment on above: Performed By: #### D IFBF, AMYM3, FLDCC, ALBM3, LDMS3, GLMS3 #### [facility] [address] [place], [place] Glucose [Mass/Vol] 94 mg/dL Normal 70-100 [facility] Comment on above: Performed By: #### D IFBF, AMYM3, FLDCC, ALBM3, LDMS3, GLMS3 #### [address] [place] [address] [address] [place], [place] Protein [Mass/Vol] 6.9 g/dL Normal 6.3-8.2 [facility] Comment on above: Performed By: #### D IFBF, AMYM3, FLDCC, ALBM3, LDMS3, GLMS3 #### [address] [place] [address] [address] [place], [place] Urea nitrogen [Mass/Vol] 13 mg/dL Normal 7-17 [facility] Comment on above: Performed By: #### D IFBF, AMYM3, FLDCC, ALBM3, LDMS3, GLMS3 #### [address] [place] [address] [address] [place], [place] Creatinine [Mass/Vol] 0.77 mg/dL Normal 0.52-1.25 [facility] Comment on above: Performed By: #### D IFBF, AMYM3, FLDCC, ALBM3, LDMS3, GLMS3 #### [address] [place] [address] [address] [place], [place] eGFR OTHER > 90.0 Normal >60 [facility] Comment on above: Result Comment: KDIG [...] IFBF, AMYM3, FLDCC, ALBM3, LDMS3, GLMS3 #### [address] [place] [address] [place], [place] GFR/1.73 sq M.predicted among blacks MDRD (S/P/Bld) [Vol rate/Area] mL/min/{1.73_m2} Normal >60 [facility] Comment on above: Performed By: #### D IFBF, AMYM3, FLDCC, ALBM3, LDMS3, GLMS3 #### [address] Albumin [Mass/Vol] 2.5 g/dL Low 3.5-5.0 [facility] Comment on above: Performed By: #### D IFBF, AMYM3, FLDCC, ALBM3, LDMS3, GLMS3 #### [address] [place] [address] [place], [place] Chloride [Moles/Vol] 99 mmol/L Normal 98-107 [facility] Comment on above: Performed By: #### D IFBF, AMYM3, FLDCC, ALBM3, LDMS3, GLMS3 #### [address] Potassium [Moles/Vol] 3.5 mmol/L Normal 3.5-5.1 [facility] Comment on above: Performed By: #### D IFBF, AMYM3, FLDCC, ALBM3, LDMS3, GLMS3 #### [address] Sodium [Moles/Vol] 132 mmol/L Low 135-145 [facility] Comment on above: Performed By: #### D IFBF, AMYM3, FLDCC, ALBM3, LDMS3, GLMS3 #### [address], [place] Folateon 05-06-2021 Folate 3.7 ng/mL Normal [facility] Comment on above: Result Comment: >2.8 Performed By: #### D IFBF, AMYM3, FLDCC, ALBM3, LDMS3, GLMS3 #### [address] Hemogram w/ Autodiffon 05-06 Erythrocyte distribution width (RBC) [Ratio] 15.2 % High 11.5-14.5 [facility] Comment on above: Performed By: #### D IFBF, AMYM3, FLDCC, ALBM3, LDMS3, GLMS3 #### [address] Hematocrit (Bld) [Volume fraction] 30.3 % Low 40.0-52.0 [facility] Comment on above: Performed By: #### D IFBF, AMYM3, FLDCC, ALBM3, LDMS3, GLMS3 #### [address] Hemoglobin (Bld) [Mass/Vol] 10.3 g/dL Low 13.0-18.0 [facility] Comment on above: Performed By: #### D IFBF, AMYM3, FLDCC, ALBM3, LDMS3, GLMS3 #### [address] MCH (RBC) [Entitic mass] 39.3 pg High 26.0-34.0 [facility] Comment on above: Performed By: #### D IFBF, AMYM3, FLDCC, ALBM3, LDMS3, GLMS3 #### [address] MCHC 34.1 % Normal 32.0-36.0 [facility] Comment on above: Performed By: #### D IFBF, AMYM3, FLDCC, ALBM3, LDMS3, GLMS3 #### [address] MCV (RBC) [Entitic vol] 115.1 fL High 80.0-98.0 [facility] Comment on above: Performed By: #### D IFBF, AMYM3, FLDCC, ALBM3, LDMS3, GLMS3 #### [address] [place] [address] [address] [place], [place] Platelet mean volume (Bld) [Entitic vol] 8.8 fL Normal 7.4-10.4 [facility] Comment on above: Performed By: #### D IFBF, AMYM3, FLDCC, ALBM3, LDMS3, GLMS3 #### [address] [place] [address] [address] [place], [place] Platelets (Bld) [#/Vol] 79 10*3/uL Low 140-440 [facility] Comment on above: Performed By: #### D IFBF, AMYM3, FLDCC, ALBM3, LDMS3, GLMS3 #### [address] [place] [address] [place], [place] RBC (Bld) [#/Vol] 2.63 10*6/uL Low 4.40-5.90 [facility] Comment on above: Performed By: #### D IFBF, AMYM3, FLDCC, ALBM3, LDMS3, GLMS3 #### [address] [place] [address] [address] [place], [place] WBC (Bld) [#/Vol] 9.9 10*3/uL Normal 3.6-10.7 [facility] Comment on above: Performed By: #### D IFBF, AMYM3, FLDCC, ALBM3, LDMS3, GLMS3 #### [address] Manual Diffon 05-06-2021 Abs Lymph Cnt 0.2 10*3/uL Low 1.1-4.5 [facility] Comment on above: Performed By: #### C /BLD #### [address] Abs Monocyte Cnt 0.9 10*3/uL Normal 0.2-1.1 [facility] Comment on above: Performed By: #### C /BLD #### [facility] [address] [place], [place] Abs Neutrophile Cnt 8.8 10*3/uL High 2.2-8.2 [facility] Comment on above: Performed By: #### C /BLD #### [address] [place] [address] [address] [place], [place] Anisocytosis Slight Normal [facility] Comment on above: Performed By: #### C /BLD #### [address] [address] [address] [place], [place] Bands 5 % High 0-3 [facility] Comment on above: Performed By: #### C /BLD #### [address] [place] [address] [address] [place], [place] Large Platelets Slight Normal [facility] Comment on above: Performed By: #### C /BLD #### [address] [place] [address] [address] [place], [place] Lymphocytes 2 % Low 20-40 [facility] Comment on above: Performed By: #### C /BLD #### [address] [address] [address] [place], [place] Macrocytosis Slight Normal [facility] Comment on above: Performed By: #### C /BLD #### [address] [place] [address] [address] [place], [place] Monocytes 9 % Normal 2-10 [facility] Comment on above: Performed By: #### C /BLD #### [address] [place] [address] [address] [place], [place] Polychromasia Slight Normal [facility] Comment on above: Performed By: #### C /BLD #### [address] [place] [address] [address] [place], [place] RBC Morphology ABNORMAL Normal [facility] Comment on above: Performed By: #### C /BLD #### [address] [address] [address] [place], [place] Seg Neutrophils 84 % High 40-80 [facility] Comment on above: Performed By: #### C /BLD #### [address] [place] [address] [address] [place], [place] Abs Baso Cnt 0.0 10*3/uL Normal 0.0-0.2 [facility] Comment on above: Performed By: #### C /BLD #### [facility] [address] [place], [place] Abs Eosin Cnt 0.0 10*3/uL Normal 0.0-0.5 [facility] Comment on above: Performed By: #### C /BLD #### [place] [address] [address] [place], [place] Basophils 0 % Normal 0-2 [facility] Comment on above: Performed By: #### C /BLD #### [address] [address] [address] [place], [place] Cells counted 100 Normal [facility] Comment on above: Performed By: #### C /BLD #### [place] [address] [place], [place] Eosinophils 0 % Low 1-6 [facility] Comment on above: Performed By: #### C /BLD #### [place] [address] [address] [place], [place] Prothrombin Timeon 2 INR 1.6 High 0.9-1.1 [facility] Comment on above: Result Comment: Herber [...] FLDCC, ALBM3, LDMS3, GLMS3 #### [facility] [address] [place], [place] PT Coag (PPP) [Time] 16.8 s High 9.0-12.0 [facility] Comment on above: Result Comment: . Performed By: #### D IFBF, AMYM3, FLDCC, ALBM3, LDMS3, GLMS3 #### [facility] [address] [place] [address] Thyroid Stim. Hormoneon Thyroid Stim. Hormone 0.803 u[IU]/mL Normal 0.46 5-4.68 0 [facility] Comment on above: Performed By: #### D IFBF, AMYM3, FLDCC, ALBM3, LDMS3, GLMS3 #### [facility] [address] [place] [address] US Paracentesison 05-06-2021 US Paracentesis Patient Name: DANNY MATSON Ultrasound ACCESSION EXAM DATE/TIME PROCEDURE ORDERING PROVIDER [id number] 05/06/2021 12:12 EST US Paracentesis Initial [id number] ELLA PHILLIPS CPT code 51163 Reason For Exam (US Paracentesis Initial) abdominal ascites Report Reasons for examination: Abdominal distention and discomfort. Ascites. Ultrasound was performed of the abdomen, localizing the ascitic fluid. After obtaining informed consent, sterile preparation, draping, and local anesthetic administration, paracentesis was performed under direct ultrasonographic guidance with a 5 [place] Yueh needle/catheter in the 6200 mL abdomen. [...] and Time: 05/06/2021 12:29 Normal [facility] Vitamin B12on 05-06-2021 Cobalamin (Vitamin B12) [Mass/Vol] 988 pg/mL High 239-931 [facility] Comment on above: Performed By: #### D IFBF, AMYM3, FLDCC, ALBM3, LDMS3, GLMS3 #### [facility] [address], [place] CULTURE AND STAIN - FLUIDon 05-05-2021 CULTURE AND STAIN - FLUID CULTURE & STAIN - FLUID --> Status: F No growth at 3 days. Normal [facility] Comment on above: Performed By: #### D IFBF, AMYM3, FLDCC, ALBM3, LDMS3, GLMS3 #### [facility] [address], [place] Comp Panel with Mg Reflexon 05-05-2021 Bilirubin [Mass/Vol] 30.7 mg/dL High 0.2-1.3 [facility] Comment on above: Performed By: #### D IFBF, AMYM3, FLDCC, ALBM3, LDMS3, GLMS3 #### [address] [place] [address] [address] [place], [place] Calcium [Mass/Vol] 7.7 mg/dL Low 8.4-10.4 [facility] Comment on above: Performed By: #### D IFBF, AMYM3, FLDCC, ALBM3, LDMS3, GLMS3 #### [facility] [address] [place], [place] Glucose [Mass/Vol] 118 mg/dL High 70-100 [facility] Comment on above: Performed By: #### D IFBF, AMYM3, FLDCC, ALBM3, LDMS3, GLMS3 #### [facility] [address] [place], [place] ALP [Catalytic activity/Vol] 336 U/L High 38-126 [facility] Comment on above: Performed By: #### D IFBF, AMYM3, FLDCC, ALBM3, LDMS3, GLMS3 #### [facility] [address] [place], [place] ALT [Catalytic activity/Vol] 39 U/L Normal 0-49 [facility] Comment on above: Result Comment: The ALT test is performed by an updated assay method. Please note that the reference intervals have been changed and are now sex specific. Performed By: #### D IFBF, AMYM3, FLDCC, ALBM3, LDMS3, GLMS3 #### [place] [address] [address] [place], [place] Anion gap [Moles/Vol] 7 mmol/L Normal 3-13 [facility] Comment on above: Performed By: #### D IFBF, AMYM3, FLDCC, ALBM3, LDMS3, GLMS3 #### [place] [address] [address] [place], [place] AST [Catalytic activity/Vol] 126 U/L High 15-46 [facility] Comment on above: Performed By: #### D IFBF, AMYM3, FLDCC, ALBM3, LDMS3, GLMS3 #### [place] [address] [address] [place], [place] CO2 [Moles/Vol] 28 mmol/L Normal 22-30 [facility] Comment on above: Performed By: #### D IFBF, AMYM3, FLDCC, ALBM3, LDMS3, GLMS3 #### [place] [address] [place], [place] Creatinine [Mass/Vol] 0.74 mg/dL Normal 0.52-1.25 [facility] Comment on above: Performed By: #### D IFBF, AMYM3, FLDCC, ALBM3, LDMS3, GLMS3 #### [place] [address] [place], [place] eGFR OTHER > 90.0 Normal >60 [facility] Comment on above: Result Comment: KDIG [...] FLDCC, ALBM3, LDMS3, GLMS3 #### [facility] [address] [place] [address] GFR/1.73 sq M.predicted among blacks MDRD (S/P/Bld) [Vol rate/Area] mL/min/{1.73_m2} Normal >60 [facility] Comment on above: Performed By: #### D IFBF, AMYM3, FLDCC, ALBM3, LDMS3, GLMS3 #### [place] [address] [place], [place] Protein [Mass/Vol] 7.1 g/dL Normal 6.3-8.2 [facility] Comment on above: Performed By: #### D IFBF, AMYM3, FLDCC, ALBM3, LDMS3, GLMS3 #### [place] [address] [place], [place] Urea nitrogen [Mass/Vol] 13 mg/dL Normal 7-17 [facility] Comment on above: Performed By: #### D IFBF, AMYM3, FLDCC, ALBM3, LDMS3, GLMS3 #### [address] [place] [address] Potassium [Moles/Vol] 3.3 mmol/L Low 3.5-5.1 [facility] Comment on above: Performed By: #### D IFBF, AMYM3, FLDCC, ALBM3, LDMS3, GLMS3 #### [address] [place] [address] Albumin [Mass/Vol] 2.6 g/dL Low 3.5-5.0 [facility] Comment on above: Performed By: #### D IFBF, AMYM3, FLDCC, ALBM3, LDMS3, GLMS3 #### [address] [place] [address] Chloride [Moles/Vol] 96 mmol/L Low 98-107 [facility] Comment on above: Performed By: #### D IFBF, AMYM3, FLDCC, ALBM3, LDMS3, GLMS3 #### [place] [place], [place] Sodium [Moles/Vol] 131 mmol/L Low 135-145 [facility] Comment on above: Performed By: #### D IFBF, AMYM3, FLDCC, ALBM3, LDMS3, GLMS3 #### [place] [address] [place], [place] Hemogram w/ Autodiffon 05-05 Abs Baso Cnt 0.0 10*3/uL Normal 0.0-0.2 [facility] Comment on above: Performed By: #### D IFBF, AMYM3, FLDCC, ALBM3, LDMS3, GLMS3 #### [address] Abs Neutrophile Cnt 8.5 10*3/uL High 1.8-7.0 [facility] Comment on above: Performed By: #### D IFBF, AMYM3, FLDCC, ALBM3, LDMS3, GLMS3 #### [place] [address] [address] [place], [place] Basophils/100 WBC (Bld) 0.3 % Normal 0.0-2.0 [facility] Comment on above: Performed By: #### D IFBF, AMYM3, FLDCC, ALBM3, LDMS3, GLMS3 #### [address] [address] [place], [place] Eosinophils (Bld) [#/Vol] 0.0 10*3/uL Normal 0.0-0.5 [facility] Comment on above: Performed By: #### D IFBF, AMYM3, FLDCC, ALBM3, LDMS3, GLMS3 #### [address] Eosinophils/100 WBC (Bld) 0.1 % Low 1.0-6.0 [facility] Comment on above: Performed By: #### D IFBF, AMYM3, FLDCC, ALBM3, LDMS3, GLMS3 #### [place] [address] [place], [place] Erythrocyte distribution width (RBC) [Ratio] 15.0 % High 11.5-14.5 [facility] Comment on above: Performed By: #### D IFBF, AMYM3, FLDCC, ALBM3, LDMS3, GLMS3 #### [place] [address] [place], [place] Granulocytes/100 WBC (Bld) 86.1 % High 40.0-80.0 [facility] Comment on above: Performed By: #### D IFBF, AMYM3, FLDCC, ALBM3, LDMS3, GLMS3 #### [place] [address] [place], [place] Hematocrit (Bld) [Volume fraction] 29.6 % Low 40.0-52.0 [facility] Comment on above: Performed By: #### D IFBF, AMYM3, FLDCC, ALBM3, LDMS3, GLMS3 #### [place] [place] [place], [place] Hemoglobin (Bld) [Mass/Vol] 10.4 g/dL Low 13.0-18.0 [facility] Comment on above: Performed By: #### D IFBF, AMYM3, FLDCC, ALBM3, LDMS3, GLMS3 #### [place] [address] [place], [place] Lymphocytes (Bld) [#/Vol] 0.3 10*3/uL Low 1.0-4.3 [facility] Comment on above: Performed By: #### D IFBF, AMYM3, FLDCC, ALBM3, LDMS3, GLMS3 #### [address] Lymphocytes/100 WBC (Bld) 3.2 % Low 20.0-40.0 [facility] Comment on above: Performed By: #### D IFBF, AMYM3, FLDCC, ALBM3, LDMS3, GLMS3 #### [place] [address] [place], [place] MCH (RBC) [Entitic mass] 40.2 pg High 26.0-34.0 [facility] Comment on above: Performed By: #### D IFBF, AMYM3, FLDCC, ALBM3, LDMS3, GLMS3 #### [facility] [address] [place], [place] MCHC 35.2 % Normal 32.0-36.0 [facility] Comment on above: Performed By: #### D IFBF, AMYM3, FLDCC, ALBM3, LDMS3, GLMS3 #### [facility] [address] [place], [place] MCV (RBC) [Entitic vol] 114.2 fL High 80.0-98.0 [facility] Comment on above: Performed By: #### D IFBF, AMYM3, FLDCC, ALBM3, LDMS3, GLMS3 #### [place] [address] [place], [place] Monocytes (Bld) [#/Vol] 1.0 10*3/uL High 0.0-0.8 [facility] Comment on above: Performed By: #### D IFBF, AMYM3, FLDCC, ALBM3, LDMS3, GLMS3 #### [facility] [address] [place], [place] Monocytes/100 WBC (Bld) 10.3 % High 2.0-10.0 [facility] Comment on above: Performed By: #### D IFBF, AMYM3, FLDCC, ALBM3, LDMS3, GLMS3 #### [place] [address] [place], [place] Platelet mean volume (Bld) [Entitic vol] 8.7 fL Normal 7.4-10.4 [facility] Comment on above: Performed By: #### D IFBF, AMYM3, FLDCC, ALBM3, LDMS3, GLMS3 #### [facility] [address] [place], [place] Platelets (Bld) [#/Vol] 70 10*3/uL Low 140-440 [facility] Comment on above: Performed By: #### D IFBF, AMYM3, FLDCC, ALBM3, LDMS3, GLMS3 #### [facility] [address] [place], [place] RBC (Bld) [#/Vol] 2.59 10*6/uL Low 4.40-5.90 [facility] Comment on above: Performed By: #### D IFBF, AMYM3, FLDCC, ALBM3, LDMS3, GLMS3 #### [place] [address] [place], [place] WBC (Bld) [#/Vol] 9.9 10*3/uL Normal 3.6-10.7 [facility] Comment on above: Performed By: #### D IFBF, AMYM3, FLDCC, ALBM3, LDMS3, GLMS3 #### [place] [address] [place], [place] Magnesiumon 05-05-2021 Magnesium [Mass/Vol] 2.1 mg/dL Normal 1.6-2.3 [facility] Comment on above: Performed By: #### D IFBF, AMYM3, FLDCC, ALBM3, LDMS3, GLMS3 #### [place] [place], [place] Prothrombin Timeon INR 1.7 High 0.9-1.1 [facility] Comment on above: Result Comment: Herber [...] IFBF, AMYM3, FLDCC, ALBM3, LDMS3, GLMS3 #### [place] [place], [place] PT Coag (PPP) [Time] 17.7 s High 9.0-12.0 [facility] Comment on above: Result Comment: . Performed By: #### D IFBF, AMYM3, FLDCC, ALBM3, LDMS3, GLMS3 #### [facility] [address] [place], [place] CULTURE AND STAIN - FLUIDon 05-04-2021 CULTURE AND STAIN - FLUID CULTURE & STAIN - FLUID --> Status: F No growth at 3 days. Normal [facility] Comment on above: Performed By: #### C XFLD, S/GRM #### [facility] [address] [place], [place] Comp Panel with Mg Reflexon 05-04-2021 Bilirubin [Mass/Vol] 30.6 mg/dL High 0.2-1.3 [facility] Comment on above: Performed By: #### D IFBF, AMYM3, FLDCC, ALBM3, LDMS3, GLMS3 #### [place] [place], [place] ALP [Catalytic activity/Vol] 331 U/L High 38-126 [facility] Comment on above: Performed By: #### D IFBF, AMYM3, FLDCC, ALBM3, LDMS3, GLMS3 #### [facility] [address] [place], [place] ALT [Catalytic activity/Vol] 39 U/L Normal 0-49 [facility] Comment on above: Result Comment: The ALT test is performed by an updated assay method. Please note that the reference intervals have been changed and are now sex specific. Performed By: #### D IFBF, AMYM3, FLDCC, ALBM3, LDMS3, GLMS3 #### [facility] [address] [place], [place] AST [Catalytic activity/Vol] 136 U/L High 15-46 [facility] Comment on above: Performed By: #### D IFBF, AMYM3, FLDCC, ALBM3, LDMS3, GLMS3 #### [facility] [address] [place], [place] Calcium [Mass/Vol] 7.9 mg/dL Low 8.4-10.4 [facility] Comment on above: Performed By: #### D IFBF, AMYM3, FLDCC, ALBM3, LDMS3, GLMS3 #### [address] [place], [place] Glucose [Mass/Vol] 156 mg/dL High 70-100 [facility] Comment on above: Performed By: #### D IFBF, AMYM3, FLDCC, ALBM3, LDMS3, GLMS3 #### [address] [place], [place] Protein [Mass/Vol] 7.1 g/dL Normal 6.3-8.2 [facility] Comment on above: Performed By: #### D IFBF, AMYM3, FLDCC, ALBM3, LDMS3, GLMS3 #### [place] [place], [place] Urea nitrogen [Mass/Vol] 10 mg/dL Normal 7-17 [facility] Comment on above: Performed By: #### D IFBF, AMYM3, FLDCC, ALBM3, LDMS3, GLMS3 #### [address] [place], [place] Anion gap [Moles/Vol] 9 mmol/L Normal 3-13 [facility] Comment on above: Performed By: #### D IFBF, AMYM3, FLDCC, ALBM3, LDMS3, GLMS3 #### [place] [address] [place], [place] CO2 [Moles/Vol] 29 mmol/L Normal 22-30 [facility] Comment on above: Performed By: #### D IFBF, AMYM3, FLDCC, ALBM3, LDMS3, GLMS3 #### [place] [place], [place] Creatinine [Mass/Vol] 0.71 mg/dL Normal 0.52-1.25 [facility] Comment on above: Performed By: #### D IFBF, AMYM3, FLDCC, ALBM3, LDMS3, GLMS3 #### [address] [place] [address] eGFR OTHER > 90.0 Normal >60 [facility] Comment on above: Result Comment: KDIG [...] IFBF, AMYM3, FLDCC, ALBM3, LDMS3, GLMS3 #### [address] [address] [place], [place] GFR/1.73 sq M.predicted among blacks MDRD (S/P/Bld) [Vol rate/Area] mL/min/{1.73_m2} Normal >60 [facility] Comment on above: Performed By: #### D IFBF, AMYM3, FLDCC, ALBM3, LDMS3, GLMS3 #### [place] [place], [place] Albumin [Mass/Vol] 2.6 g/dL Low 3.5-5.0 [facility] Comment on above: Performed By: #### D IFBF, AMYM3, FLDCC, ALBM3, LDMS3, GLMS3 #### [place] [address] [place], [place] Chloride [Moles/Vol] 95 mmol/L Low 98-107 [facility] Comment on above: Performed By: #### D IFBF, AMYM3, FLDCC, ALBM3, LDMS3, GLMS3 #### [place] [place] [address] [place], [place] Potassium [Moles/Vol] 3.2 mmol/L Low 3.5-5.1 [facility] Comment on above: Performed By: #### D IFBF, AMYM3, FLDCC, ALBM3, LDMS3, GLMS3 #### [place] [address] [place], [place] Sodium [Moles/Vol] 133 mmol/L Low 135-145 [facility] Comment on above: Performed By: #### D IFBF, AMYM3, FLDCC, ALBM3, LDMS3, GLMS3 #### [address] Hemogram w/ Autodiffon 05-04 Erythrocyte distribution width (RBC) [Ratio] 14.7 % High 11.5-14.5 [facility] Comment on above: Performed By: #### D IFBF, AMYM3, FLDCC, ALBM3, LDMS3, GLMS3 #### [address] Hematocrit (Bld) [Volume fraction] 29.7 % Low 40.0-52.0 [facility] Comment on above: Performed By: #### D IFBF, AMYM3, FLDCC, ALBM3, LDMS3, GLMS3 #### [address] Hemoglobin (Bld) [Mass/Vol] 10.4 g/dL Low 13.0-18.0 [facility] Comment on above: Performed By: #### D IFBF, AMYM3, FLDCC, ALBM3, LDMS3, GLMS3 #### [address] MCH (RBC) [Entitic mass] 40.3 pg High 26.0-34.0 [facility] Comment on above: Performed By: #### D IFBF, AMYM3, FLDCC, ALBM3, LDMS3, GLMS3 #### [address] MCHC 35.0 % Normal 32.0-36.0 [facility] Comment on above: Performed By: #### D IFBF, AMYM3, FLDCC, ALBM3, LDMS3, GLMS3 #### [address] [place], [place] MCV (RBC) [Entitic vol] 115.2 fL High 80.0-98.0 [facility] Comment on above: Performed By: #### D IFBF, AMYM3, FLDCC, ALBM3, LDMS3, GLMS3 #### [address] [place], [place] Platelet mean volume (Bld) [Entitic vol] 9.7 fL Normal 7.4-10.4 [facility] Comment on above: Performed By: #### D IFBF, AMYM3, FLDCC, ALBM3, LDMS3, GLMS3 #### [address] [place], [place] Platelets (Bld) [#/Vol] 63 10*3/uL Low 140-440 [facility] Comment on above: Performed By: #### D IFBF, AMYM3, FLDCC, ALBM3, LDMS3, GLMS3 #### [address] [place], [place] RBC (Bld) [#/Vol] 2.58 10*6/uL Low 4.40-5.90 [facility] Comment on above: Performed By: #### D IFBF, AMYM3, FLDCC, ALBM3, LDMS3, GLMS3 #### [address] [place], [place] WBC (Bld) [#/Vol] 8.1 10*3/uL Normal 3.6-10.7 [facility] Comment on above: Performed By: #### D IFBF, AMYM3, FLDCC, ALBM3, LDMS3, GLMS3 #### [address] [place], [place] Magnesiumon 05-04-2021 Magnesium [Mass/Vol] 2.1 mg/dL Normal 1.6-2.3 [facility] Comment on above: Performed By: #### D IFBF, AMYM3, FLDCC, ALBM3, LDMS3, GLMS3 #### [address] [place], [place] Manual Diffon 05-04-2021 Abs Lymph Cnt 0.1 10*3/uL Low 1.1-4.5 [facility] Comment on above: Performed By: #### D IFBF, AMYM3, FLDCC, ALBM3, LDMS3, GLMS3 #### [address] Abs Monocyte Cnt 0.3 10*3/uL Normal 0.2-1.1 [facility] Comment on above: Performed By: #### D IFBF, AMYM3, FLDCC, ALBM3, LDMS3, GLMS3 #### [address] Abs Neutrophile Cnt 7.7 10*3/uL Normal 2.2-8.2 [facility] Comment on above: Performed By: #### D IFBF, AMYM3, FLDCC, ALBM3, LDMS3, GLMS3 #### [address] Bands 2 % Normal 0-3 [facility] Comment on above: Performed By: #### D IFBF, AMYM3, FLDCC, ALBM3, LDMS3, GLMS3 #### [address] Lymphocytes 1 % Low 20-40 [facility] Comment on above: Performed By: #### D IFBF, AMYM3, FLDCC, ALBM3, LDMS3, GLMS3 #### [address] Monocytes 4 % Normal 2-10 [facility] Comment on above: Performed By: #### D IFBF, AMYM3, FLDCC, ALBM3, LDMS3, GLMS3 #### [address] RBC Morphology See Prev Normal [facility] Comment on above: Performed By: #### D IFBF, AMYM3, FLDCC, ALBM3, LDMS3, GLMS3 #### [address], [place] Seg Neutrophils 93 % High 40-80 [facility] Comment on above: Performed By: #### D IFBF, AMYM3, FLDCC, ALBM3, LDMS3, GLMS3 #### [address] [place], [place] Abs Baso Cnt 0.0 10*3/uL Normal 0.0-0.2 [facility] Comment on above: Performed By: #### D IFBF, AMYM3, FLDCC, ALBM3, LDMS3, GLMS3 #### [address] [address] [place], [place] Abs Eosin Cnt 0.0 10*3/uL Normal 0.0-0.5 [facility] Comment on above: Performed By: #### D IFBF, AMYM3, FLDCC, ALBM3, LDMS3, GLMS3 #### [address] Basophils 0 % Normal 0-2 [facility] Comment on above: Performed By: #### D IFBF, AMYM3, FLDCC, ALBM3, LDMS3, GLMS3 #### [address] Cells counted 100 Normal [facility] Comment on above: Performed By: #### D IFBF, AMYM3, FLDCC, ALBM3, LDMS3, GLMS3 #### [address] [address] [place], [place] Eosinophils 0 % Low 1-6 [facility] Comment on above: Performed By: #### D IFBF, AMYM3, FLDCC, ALBM3, LDMS3, GLMS3 #### [address] Prothrombin Timeon 2 INR 1.8 High 0.9-1.1 [facility] Comment on above: Result Comment: Herber [...] IFBF, AMYM3, FLDCC, ALBM3, LDMS3, GLMS3 #### [address] [place], [place] PT Coag (PPP) [Time] 18.3 s High 9.0-12.0 [facility] Comment on above: Result Comment: . Performed By: #### D IFBF, AMYM3, FLDCC, ALBM3, LDMS3, GLMS3 #### [address] [place], [place] Ammoniaon 05-03-2021 Ammonia (P) [Moles/Vol] 55 umol/L High 9-30 [facility] Comment on above: Performed By: #### D IFBF, AMYM3, FLDCC, ALBM3, LDMS3, GLMS3 #### [address] [place], [place] Comp Panel with Mg Reflexon 05-03-2021 Bilirubin [Mass/Vol] 33.4 mg/dL High 0.2-1.3 [facility] Comment on above: Performed By: #### D IFBF, AMYM3, FLDCC, ALBM3, LDMS3, GLMS3 #### [address] [place], [place] ALT [Catalytic activity/Vol] 41 U/L Normal 0-49 [facility] Comment on above: Result Comment: The ALT test is performed by an updated assay method. Please note that the reference intervals have been changed and are now sex specific. Performed By: #### D IFBF, AMYM3, FLDCC, ALBM3, LDMS3, GLMS3 #### [address] [place], [place] Calcium [Mass/Vol] 7.6 mg/dL Low 8.4-10.4 [facility] Comment on above: Performed By: #### D IFBF, AMYM3, FLDCC, ALBM3, LDMS3, GLMS3 #### [facility] [address] [place], [place] Glucose [Mass/Vol] 87 mg/dL Normal 70-100 [facility] Comment on above: Performed By: #### D IFBF, AMYM3, FLDCC, ALBM3, LDMS3, GLMS3 #### [facility] [address] [place], [place] ALP [Catalytic activity/Vol] 307 U/L High 38-126 [facility] Comment on above: Performed By: #### D IFBF, AMYM3, FLDCC, ALBM3, LDMS3, GLMS3 #### [facility] [address] [place], [place] Anion gap [Moles/Vol] 8 mmol/L Normal 3-13 [facility] Comment on above: Performed By: #### D IFBF, AMYM3, FLDCC, ALBM3, LDMS3, GLMS3 #### [address] [place], [place] AST [Catalytic activity/Vol] 169 U/L High 15-46 [facility] Comment on above: Performed By: #### D IFBF, AMYM3, FLDCC, ALBM3, LDMS3, GLMS3 #### [facility] [address] [place], [place] CO2 [Moles/Vol] 25 mmol/L Normal 22-30 [facility] Comment on above: Performed By: #### D IFBF, AMYM3, FLDCC, ALBM3, LDMS3, GLMS3 #### [facility] [address] [place], [place] Creatinine [Mass/Vol] 0.69 mg/dL Normal 0.52-1.25 [facility] Comment on above: Performed By: #### D IFBF, AMYM3, FLDCC, ALBM3, LDMS3, GLMS3 #### [facility] [address] [place], [place] eGFR OTHER > 90.0 Normal >60 [facility] Comment on above: Result Comment: KDIG [...] IFBF, AMYM3, FLDCC, ALBM3, LDMS3, GLMS3 #### [address] GFR/1.73 sq M.predicted among blacks MDRD (S/P/Bld) [Vol rate/Area] mL/min/{1.73_m2} Normal >60 [facility] Comment on above: Performed By: #### D IFBF, AMYM3, FLDCC, ALBM3, LDMS3, GLMS3 #### [address] Protein [Mass/Vol] 7.0 g/dL Normal 6.3-8.2 [facility] Comment on above: Performed By: #### D IFBF, AMYM3, FLDCC, ALBM3, LDMS3, GLMS3 #### [address] Urea nitrogen [Mass/Vol] 7 mg/dL Normal 7-17 [facility] Comment on above: Performed By: #### D IFBF, AMYM3, FLDCC, ALBM3, LDMS3, GLMS3 #### [address] Potassium [Moles/Vol] 3.1 mmol/L Low 3.5-5.1 [facility] Comment on above: Performed By: #### D IFBF, AMYM3, FLDCC, ALBM3, LDMS3, GLMS3 #### [address] [place], [place] Sodium [Moles/Vol] 127 mmol/L Low 135-145 [facility] Comment on above: Performed By: #### D IFBF, AMYM3, FLDCC, ALBM3, LDMS3, GLMS3 #### [address] [place] Albumin [Mass/Vol] 2.5 g/dL Low 3.5-5.0 [facility] Comment on above: Performed By: #### D IFBF, AMYM3, FLDCC, ALBM3, LDMS3, GLMS3 #### [address] [address] [place], [place] Chloride [Moles/Vol] 94 mmol/L Low 98-107 [facility] Comment on above: Performed By: #### D IFBF, AMYM3, FLDCC, ALBM3, LDMS3, GLMS3 #### [address] [place], [place] Hemogramon 05-03-2021 Erythrocyte distribution width (RBC) [Ratio] 14.4 % Normal 11.5-14.5 [facility] Comment on above: Performed By: #### D IFBF, AMYM3, FLDCC, ALBM3, LDMS3, GLMS3 #### [address] [address] [place], [place] Hematocrit (Bld) [Volume fraction] 28.0 % Low 40.0-52.0 [facility] Comment on above: Performed By: #### D IFBF, AMYM3, FLDCC, ALBM3, LDMS3, GLMS3 #### [address] [place], [place] Hemoglobin (Bld) [Mass/Vol] 9.7 g/dL Low 13.0-18.0 [facility] Comment on above: Performed By: #### D IFBF, AMYM3, FLDCC, ALBM3, LDMS3, GLMS3 #### [address] [place], [place] MCH (RBC) [Entitic mass] 39.4 pg High 26.0-34.0 [facility] Comment on above: Performed By: #### D IFBF, AMYM3, FLDCC, ALBM3, LDMS3, GLMS3 #### [facility] [address] [place] MCHC 34.6 % Normal 32.0-36.0 [facility] Comment on above: Performed By: #### D IFBF, AMYM3, FLDCC, ALBM3, LDMS3, GLMS3 #### [facility] [address] [place], [place] MCV (RBC) [Entitic vol] 114.1 fL High 80.0-98.0 [facility] Comment on above: Performed By: #### D IFBF, AMYM3, FLDCC, ALBM3, LDMS3, GLMS3 #### [address] [place], [place] Platelet mean volume (Bld) [Entitic vol] 8.3 fL Normal 7.4-10.4 [facility] Comment on above: Performed By: #### D IFBF, AMYM3, FLDCC, ALBM3, LDMS3, GLMS3 #### [facility] [address] [place], [place] Platelets (Bld) [#/Vol] 44 10*3/uL Low 140-440 [facility] Comment on above: Performed By: #### D IFBF, AMYM3, FLDCC, ALBM3, LDMS3, GLMS3 #### [place] [address] [address] [place], [place] RBC (Bld) [#/Vol] 2.45 10*6/uL Low 4.40-5.90 [facility] Comment on above: Performed By: #### D IFBF, AMYM3, FLDCC, ALBM3, LDMS3, GLMS3 #### [facility] [address] [place], [place] WBC (Bld) [#/Vol] 6.9 10*3/uL Normal 3.6-10.7 [facility] Comment on above: Performed By: #### D IFBF, AMYM3, FLDCC, ALBM3, LDMS3, GLMS3 #### [place] [address] [address] [place], [place] Lactic Acidon 05-03-2021 Lactate [Moles/Vol] 2.0 mmol/L Normal 0.7-2.0 [facility] Comment on above: Performed By: #### D IFBF, AMYM3, FLDCC, ALBM3, LDMS3, GLMS3 #### [address] [address] [place], [place] Lactate [Moles/Vol] 1.5 mmol/L Normal 0.7-2.0 [facility] Comment on above: Performed By: #### D IFBF, AMYM3, FLDCC, ALBM3, LDMS3, GLMS3 #### [address] Magnesiumon 05-03-2021 Magnesium [Mass/Vol] 1.7 mg/dL Normal 1.6-2.3 [facility] Comment on above: Performed By: #### D IFBF, AMYM3, FLDCC, ALBM3, LDMS3, GLMS3 #### [address] Prothrombin Timeon INR 1.8 High 0.9-1.1 [facility] Comment on above: Result Comment: Herber [...] IFBF, AMYM3, FLDCC, ALBM3, LDMS3, GLMS3 #### [place] [address] [place], [place] PT Coag (PPP) [Time] 18.2 s High 9.0-12.0 [facility] Comment on above: Result Comment: . Performed By: #### D IFBF, AMYM3, FLDCC, ALBM3, LDMS3, GLMS3 #### [facility] [address] [place], [place] Vancomycin Troughon 05-03-19 Vancomycin Trough 5.8 ug/mL Low 15.0-20.0 [facility] Comment on above: Result Comment: . Performed By: #### D IFBF, AMYM3, FLDCC, ALBM3, LDMS3, GLMS3 #### [facility] [address] [place], [place] Acute Hepatitis Panelon Hep C Antibody Not detected Normal Not Detected [facility] Comment on above: Result Comment: Patients with DETECTED Hepatitis C Ab results should have a new specimen submitted for supplemental testing with a Hepatitis C Quantitative RNA assay (viral load), if clinically indicated. Performed By: #### D IFBF, AMYM3, FLDCC, ALBM3, LDMS3, GLMS3 #### [address], [place] Hep A Virus Ab,IgM Not detected Normal Not Detected [facility] Comment on above: Performed By: #### D IFBF, AMYM3, FLDCC, ALBM3, LDMS3, GLMS3 #### [facility] [address], [place] Hep B Core IgM Not detected Normal Not Detected [facility] Comment on above: Performed By: #### D IFBF, AMYM3, FLDCC, ALBM3, LDMS3, GLMS3 #### [facility] [address], [place] Hep B Surface Ag Not detected Normal Not Detected [facility] Comment on above: Performed By: #### D IFBF, AMYM3, FLDCC, ALBM3, LDMS3, GLMS3 #### [address] [place] [address] Albumin, Body Fluidon 2021 Albumin, Misc < 1.0 Normal No Range [facility] Comment on above: Performed By: #### D IFBF, AMYM3, FLDCC, ALBM3, LDMS3, GLMS3 #### [facility] [address], [place] Amylase, Body Fluidon 2021 Amylase, Misc < 30 Normal No Range [facility] Comment on above: Performed By: #### D IFBF, AMYM3, FLDCC, ALBM3, LDMS3, GLMS3 #### [address] [place], [place] Cell Count,Body Fluidon RBC Count Body Fld 143 {RBC}/uL Normal [facility] Comment on above: Performed By: #### D IFBF, AMYM3, FLDCC, ALBM3, LDMS3, GLMS3 #### [address] [place], [place] Nucleated Cells 882 {cells}/uL Normal [facility] Comment on above: Performed By: #### D IFBF, AMYM3, FLDCC, ALBM3, LDMS3, GLMS3 #### [address] [place], [place] Fluid Type Paracentesis Normal [facility] Comment on above: Performed By: #### D IFBF, AMYM3, FLDCC, ALBM3, LDMS3, GLMS3 #### [address] [place], [place] Comp Metabolic Panelon 05-02 Calcium [Mass/Vol] 7.5 mg/dL Low 8.4-10.4 [facility] Comment on above: Order Comment: gross ly icteric Performed By: #### D IFBF, AMYM3, FLDCC, ALBM3, LDMS3, GLMS3 #### [address] [place], [place] ALP [Catalytic activity/Vol] 312 U/L High 38-126 [facility] Comment on above: Order Comment: gross ly icteric Performed By: #### D IFBF, AMYM3, FLDCC, ALBM3, LDMS3, GLMS3 #### [address] [place], [place] ALT [Catalytic activity/Vol] 52 U/L High 0-49 [facility] Comment on above: Order Comment: gross ly icteric Result Comment: The ALT test is performed by an updated assay method. Please note that the reference intervals have been changed and are now sex specific. Performed By: #### D IFBF, AMYM3, FLDCC, ALBM3, LDMS3, GLMS3 #### [address] [place], [place] Anion gap [Moles/Vol] 9 mmol/L Normal 3-13 [facility] Comment on above: Order Comment: gross ly icteric Performed By: #### D IFBF, AMYM3, FLDCC, ALBM3, LDMS3, GLMS3 #### [address] [place], [place] AST [Catalytic activity/Vol] 196 U/L High 15-46 [facility] Comment on above: Order Comment: gross ly icteric Performed By: #### D IFBF, AMYM3, FLDCC, ALBM3, LDMS3, GLMS3 #### [address] [place], [place] Bilirubin [Mass/Vol] 23.5 mg/dL High 0.2-1.3 [facility] Comment on above: Order Comment: gross ly icteric Performed By: #### D IFBF, AMYM3, FLDCC, ALBM3, LDMS3, GLMS3 #### [address] [place], [place] CO2 [Moles/Vol] 26 mmol/L Normal 22-30 [facility] Comment on above: Order Comment: gross ly icteric Performed By: #### D IFBF, AMYM3, FLDCC, ALBM3, LDMS3, GLMS3 #### [address] [place], [place] Glucose [Mass/Vol] 123 mg/dL High 70-100 [facility] Comment on above: Order Comment: gross ly icteric Performed By: #### D IFBF, AMYM3, FLDCC, ALBM3, LDMS3, GLMS3 #### [address] [place], [place] Protein [Mass/Vol] 7.1 g/dL Normal 6.3-8.2 [facility] Comment on above: Order Comment: gross ly icteric Performed By: #### D IFBF, AMYM3, FLDCC, ALBM3, LDMS3, GLMS3 #### [address] Urea nitrogen [Mass/Vol] 9 mg/dL Normal 7-17 [facility] Comment on above: Order Comment: gross ly icteric Performed By: #### D IFBF, AMYM3, FLDCC, ALBM3, LDMS3, GLMS3 #### [address] Creatinine [Mass/Vol] 0.64 mg/dL Normal 0.52-1.25 [facility] Comment on above: Order Comment: gross ly icteric Performed By: #### D IFBF, AMYM3, FLDCC, ALBM3, LDMS3, GLMS3 #### [address] eGFR OTHER > 90.0 Normal >60 [facility] Comment on above: Order Comment: gross [...] IFBF, AMYM3, FLDCC, ALBM3, LDMS3, GLMS3 #### [address] GFR/1.73 sq M.predicted among blacks MDRD (S/P/Bld) [Vol rate/Area] mL/min/{1.73_m2} Normal >60 [facility] Comment on above: Order Comment: gross ly icteric Performed By: #### D IFBF, AMYM3, FLDCC, ALBM3, LDMS3, GLMS3 #### [facility] [address], [place] Albumin [Mass/Vol] 2.4 g/dL Low 3.5-5.0 [facility] Comment on above: Order Comment: gross ly icteric Performed By: #### D IFBF, AMYM3, FLDCC, ALBM3, LDMS3, GLMS3 #### [address] [place], [place] Potassium [Moles/Vol] 3.5 mmol/L Normal 3.5-5.1 [facility] Comment on above: Order Comment: gross ly icteric Performed By: #### D IFBF, AMYM3, FLDCC, ALBM3, LDMS3, GLMS3 #### [address] [place], [place] Sodium [Moles/Vol] 130 mmol/L Low 135-145 [facility] Comment on above: Order Comment: gross ly icteric Performed By: #### D IFBF, AMYM3, FLDCC, ALBM3, LDMS3, GLMS3 #### [address] [place], [place] Chloride [Moles/Vol] 95 mmol/L Low 98-107 [facility] Comment on above: Order Comment: gross ly icteric Performed By: #### D IFBF, AMYM3, FLDCC, ALBM3, LDMS3, GLMS3 #### [address] [place], [place] Differential,Body Fluidson 0 05-02-2021 Cells Counted for Diff 200 Normal [facility] Comment on above: Performed By: #### D IFBF, AMYM3, FLDCC, ALBM3, LDMS3, GLMS3 #### [address] [place] [address] Lymphocytes/100 WBC (Bld) 3 % Normal [facility] Comment on above: Performed By: #### D IFBF, AMYM3, FLDCC, ALBM3, LDMS3, GLMS3 #### [facility] [address] [place] [address] Macrophages 18 % Normal [facility] Comment on above: Performed By: #### D IFBF, AMYM3, FLDCC, ALBM3, LDMS3, GLMS3 #### [facility] [address] [place] [address] Monocytes/100 WBC (Bld) 8 % Normal [facility] Comment on above: Performed By: #### D IFBF, AMYM3, FLDCC, ALBM3, LDMS3, GLMS3 #### [facility] [address] [place] [address] Neutrophils/100 WBC (Bld) 68 % Normal [facility] Comment on above: Performed By: #### D IFBF, AMYM3, FLDCC, ALBM3, LDMS3, GLMS3 #### [facility] [address] [place] [address] Lymphocytes/100 WBC (Bld) 5 % Normal [facility] Comment on above: Performed By: #### D IFBF, AMYM3, FLDCC, ALBM3, LDMS3, GLMS3 #### [facility] [address] [place] [address] Monocytes/100 WBC (Bld) 2 % Normal [facility] Comment on above: Performed By: #### D IFBF, AMYM3, FLDCC, ALBM3, LDMS3, GLMS3 #### [facility] [address] [place] [address] Neutrophils/100 WBC (Bld) 93 % Normal [facility] Comment on above: Performed By: #### D IFBF, AMYM3, FLDCC, ALBM3, LDMS3, GLMS3 #### [facility] [address] [place] [address] Hemogram w/ Autodiffon 05-02 Erythrocyte distribution width (RBC) [Ratio] 14.3 % Normal 11.5-14.5 [facility] Comment on above: Performed By: #### D IFBF, AMYM3, FLDCC, ALBM3, LDMS3, GLMS3 #### [address] [place], [place] Hematocrit (Bld) [Volume fraction] 29.0 % Low 40.0-52.0 [facility] Comment on above: Performed By: #### D IFBF, AMYM3, FLDCC, ALBM3, LDMS3, GLMS3 #### [address] [place], [place] Hemoglobin (Bld) [Mass/Vol] 10.3 g/dL Low 13.0-18.0 [facility] Comment on above: Performed By: #### D IFBF, AMYM3, FLDCC, ALBM3, LDMS3, GLMS3 #### [address] [place], [place] MCH (RBC) [Entitic mass] 40.3 pg High 26.0-34.0 [facility] Comment on above: Performed By: #### D IFBF, AMYM3, FLDCC, ALBM3, LDMS3, GLMS3 #### [address] [place], [place] MCHC 35.3 % Normal 32.0-36.0 [facility] Comment on above: Performed By: #### D IFBF, AMYM3, FLDCC, ALBM3, LDMS3, GLMS3 #### [address] MCV (RBC) [Entitic vol] 114.0 fL High 80.0-98.0 [facility] Comment on above: Performed By: #### D IFBF, AMYM3, FLDCC, ALBM3, LDMS3, GLMS3 #### [address] Platelet mean volume (Bld) [Entitic vol] 8.3 fL Normal 7.4-10.4 [facility] Comment on above: Performed By: #### D IFBF, AMYM3, FLDCC, ALBM3, LDMS3, GLMS3 #### [address] [place], [place] Platelets (Bld) [#/Vol] 58 10*3/uL Low 140-440 [facility] Comment on above: Performed By: #### D IFBF, AMYM3, FLDCC, ALBM3, LDMS3, GLMS3 #### [address] [place], [place] RBC (Bld) [#/Vol] 2.55 10*6/uL Low 4.40-5.90 [facility] Comment on above: Performed By: #### D IFBF, AMYM3, FLDCC, ALBM3, LDMS3, GLMS3 #### [address] [place], [place] WBC (Bld) [#/Vol] 8.1 10*3/uL Normal 3.6-10.7 [facility] Comment on above: Performed By: #### D IFBF, AMYM3, FLDCC, ALBM3, LDMS3, GLMS3 #### [address] [place], [place] Manual Diffon 05-02-2021 Abs Baso Cnt 0.1 10*3/uL Normal 0.0-0.2 [facility] Comment on above: Performed By: #### D IFBF, AMYM3, FLDCC, ALBM3, LDMS3, GLMS3 #### [address] [place], [place] Abs Eosin Cnt 0.2 10*3/uL Normal 0.0-0.5 [facility] Comment on above: Performed By: #### D IFBF, AMYM3, FLDCC, ALBM3, LDMS3, GLMS3 #### [address] Abs Lymph Cnt 0.2 10*3/uL Low 1.1-4.5 [facility] Comment on above: Performed By: #### D IFBF, AMYM3, FLDCC, ALBM3, LDMS3, GLMS3 #### [facility] [address], [place] Abs Monocyte Cnt 0.6 10*3/uL Normal 0.2-1.1 [facility] Comment on above: Performed By: #### D IFBF, AMYM3, FLDCC, ALBM3, LDMS3, GLMS3 #### [facility] [address], [place] Abs Neutrophile Cnt 7.0 10*3/uL Normal 2.2-8.2 [facility] Comment on above: Performed By: #### D IFBF, AMYM3, FLDCC, ALBM3, LDMS3, GLMS3 #### [address] [place], [place] Basophils 1 % Normal 0-2 [facility] Comment on above: Performed By: #### D IFBF, AMYM3, FLDCC, ALBM3, LDMS3, GLMS3 #### [address] [place], [place] Eosinophils 2 % Normal 1-6 [facility] Comment on above: Performed By: #### D IFBF, AMYM3, FLDCC, ALBM3, LDMS3, GLMS3 #### [address] [place], [place] Lymphocytes 3 % Low 20-40 [facility] Comment on above: Performed By: #### D IFBF, AMYM3, FLDCC, ALBM3, LDMS3, GLMS3 #### [address] [place], [place] Monocytes 7 % Normal 2-10 [facility] Comment on above: Performed By: #### D IFBF, AMYM3, FLDCC, ALBM3, LDMS3, GLMS3 #### [address] Ovalocytes Slight Normal [facility] Comment on above: Performed By: #### D IFBF, AMYM3, FLDCC, ALBM3, LDMS3, GLMS3 #### [address] [place], [place] Poikilocytosis Slight Normal [facility] Comment on above: Performed By: #### D IFBF, AMYM3, FLDCC, ALBM3, LDMS3, GLMS3 #### [facility] [address] [place], [place] RBC Morphology ABNORMAL Normal [facility] Comment on above: Performed By: #### D IFBF, AMYM3, FLDCC, ALBM3, LDMS3, GLMS3 #### [facility] [address], [place] Seg Neutrophils 87 % High 40-80 [facility] Comment on above: Performed By: #### D IFBF, AMYM3, FLDCC, ALBM3, LDMS3, GLMS3 #### [facility] [address], [place] Tear Drop Forms Slight Normal [facility] Comment on above: Performed By: #### D IFBF, AMYM3, FLDCC, ALBM3, LDMS3, GLMS3 #### [facility] [address], [place] Bands 0 % Normal 0-3 [facility] Comment on above: Performed By: #### D IFBF, AMYM3, FLDCC, ALBM3, LDMS3, GLMS3 #### [facility] [address], [place] Cells counted 100 Normal [facility] Comment on above: Performed By: #### D IFBF, AMYM3, FLDCC, ALBM3, LDMS3, GLMS3 #### [facility] [address], [place] Medical Cytologyon 2 Medical Cytology [facility] [id number] DEPARTMENT OF PATHOLOGY AND [facility] LABORATORY MEDICINE [address] [place] [address] FINAL MEDICAL CYTOLOGY REPORT NAME: FRUSHOUR, DANNY : 1980 41 Y M BILLDAKSHA NO.: [id number] LOCATION: [address] [place] [address] [facility] [id number] PROCEDURE 05/02/2021 B DATE: [...] by the clinical laboratories of [facility]. They have not been cleared by [...] negativity on decalcified specimens. Case reviewed at [place] [address] [place] [address]. DEPARTMENT OF PATHOLOGY AND LABORATORY MEDICINE [place], [place] [address] [email or web address] Normal [facility] Protein, Total Body Fluidon 05-02-2021 Fluid Type Paracentesis Normal [facility] Comment on above: Performed By: #### D IFBF, AMYM3, FLDCC, ALBM3, LDMS3, GLMS3 #### [facility] [address], [place] Protein,Total-Body Fld < 2.0 Normal No Range [facility] Comment on above: Performed By: #### D IFBF, AMYM3, FLDCC, ALBM3, LDMS3, GLMS3 #### [facility] [address], [place] STAIN GRAMon 05-02-2021 STAIN GRAM STAIN GRAM --> Statu s: F Moderate polymorphonuclear cells/lpf. No organisms seen. No organisms seen. Normal [facility] Comment on above: Performed By: #### D IFBF, AMYM3, FLDCC, ALBM3, LDMS3, GLMS3 #### [facility] [address], [place] STAIN GRAM STAIN GRAM --> Statu s: F Few polymorphonuclear cells/lpf. No organisms seen. No organisms seen. Normal [facility] Comment on above: Performed By: #### C XFLD, S/GRM #### [address] [place], [place] US Paracentesison 05-02-2021 US Paracentesis Patient Name: DANNY MATSON Ultrasound ACCESSION EXAM DATE/TIME PROCEDURE ORDERING PROVIDER [id number] 05/02/2021 11:18 EST US Paracentesis Initial [id number] -BRIJESH HERNANDEZ CPT code 80335 Reason For Exam (US Paracentesis Initial) ER [...] 1 percent lidocaine. Following this, a 5 [place] Yueh catheter was then advanced into the [...] by ROBY MARTINES TROY Normal [facility] Albumin, Body Fluidon 2021 Albumin, Misc < 1.0 Normal No Range [facility] Comment on above: Performed By: #### D IFBF, AMYM3, FLDCC, ALBM3, LDMS3, GLMS3 #### [address] [address] Ammoniaon 05-01-2021 Ammonia (P) [Moles/Vol] 28 umol/L Normal 9-30 [facility] Comment on above: Performed By: #### D IFBF, AMYM3, FLDCC, ALBM3, LDMS3, GLMS3 #### [facility] [address], [place] Amylase, Body Fluidon 2021 Amylase, Misc < 30 Normal No Range [facility] Comment on above: Performed By: #### D IFBF, AMYM3, FLDCC, ALBM3, LDMS3, GLMS3 #### [address] [place], [place] Basic Metabolic Panelon Calcium [Mass/Vol] 8.3 mg/dL Low 8.4-10.4 [facility] Comment on above: Performed By: #### C /BLD #### [address] [place], [place] Glucose [Mass/Vol] 115 mg/dL High 70-100 [facility] Comment on above: Performed By: #### C /BLD #### [address] [place], [place] Anion gap [Moles/Vol] 11 mmol/L Normal 3-13 [facility] Comment on above: Performed By: #### C /BLD #### [address] [place], [place] CO2 [Moles/Vol] 27 mmol/L Normal 22-30 [facility] Comment on above: Performed By: #### C /BLD #### [address] [place], [place] Creatinine [Mass/Vol] 0.67 mg/dL Normal 0.52-1.25 [facility] Comment on above: Performed By: #### C /BLD #### [address] [place], [place] eGFR OTHER > 90.0 Normal >60 [facility] Comment on above: Result Comment: KDIG [...] secretion. Performed By: #### C /BLD #### [address] [place], [place] GFR/1.73 sq M.predicted among blacks MDRD (S/P/Bld) [Vol rate/Area] mL/min/{1.73_m2} Normal >60 [facility] Comment on above: Performed By: #### C /BLD #### [address] [place], [place] Urea nitrogen [Mass/Vol] 9 mg/dL Normal 7-17 [facility] Comment on above: Performed By: #### C /BLD #### [address] [address] [place], [place] Chloride [Moles/Vol] 93 mmol/L Low 98-107 [facility] Comment on above: Performed By: #### C /BLD #### [address] [place], [place] Potassium [Moles/Vol] 3.7 mmol/L Normal 3.5-5.1 [facility] Comment on above: Performed By: #### C /BLD #### [address] [address] [place], [place] Sodium [Moles/Vol] 131 mmol/L Low 135-145 [facility] Comment on above: Performed By: #### C /BLD #### [address] [place], [place] CR Chest Portableon 05-01-19 22 CR Chest Portable Patient Name: DANNY MATSON Diagnostic Radiology ACCESSION EXAM DATE/TIME PROCEDURE ORDERING PROVIDER [id number] 05/01/2021 19:32 EST CR Chest Portable Jose David ALESSIO MOTLEY CPT code 88924 Reason For Exam (CR Chest Portable) dyspnea [...] and Time: 05/01/2021 7:39 Normal [facility] CT Abdomen/Pelvis w/ Contras ton 05-01-2021 CT Abdomen/Pelvis w/ Contrast [facility]: [id number] Tomography ACCESSION EXAM DATE/TIME PROCEDURE ORDERING PROVIDER [id number] 05/01/2021 21:[address] Abdomen/Pelvis w/ IV [id number] TOLU, Contrast (IV Onl ALESSIO CPT code 68795 [id number] Reason For Exam (CT Abdomen/Pelvis w/ [...] and Time: 05/01/2021 9:21 Normal [facility] Cell Count,Body Fluidon Nucleated Cells 1630 {cells}/uL Normal [facility] Comment on above: Performed By: #### D IFBF, AMYM3, FLDCC, ALBM3, LDMS3, GLMS3 #### [facility] [address], [place] RBC Count Body Fld 1322 {RBC}/uL Normal [facility] Comment on above: Performed By: #### D IFBF, AMYM3, FLDCC, ALBM3, LDMS3, GLMS3 #### [facility] [address] [place] [address] Fluid Type Ascites Normal [facility] Comment on above: Performed By: #### D IFBF, AMYM3, FLDCC, ALBM3, LDMS3, GLMS3 #### [facility] [address] [place] [address] Differential,Body Fluidson 0 05-01-2021 Cells Counted for Diff 100 Normal [facility] Comment on above: Performed By: #### D IFBF, AMYM3, FLDCC, ALBM3, LDMS3, GLMS3 #### [facility] [address] [place] [address] ED Provider Noteon ED Provider Note [facility] [...] patient come from an ECF, SNF, Rehab, Jail or other Congregate setting: No (If yes [...] 10 years. He reportedly was evaluated at [facility] twice 4 weeks ago and subsequently discharged. [...] day ? Drug use: Yes Types: Marijuana (Kerrick) ? Sexual activity: None Other Topics Concern [...] and Family: Not on file ? Attends [employer]: Not on file ? Active Member [...] (more content not included)... Normal [facility] ED Provider Note [facility] EMERGENCY DEPARTMENT ENCOUNTER [...] (more content not included)... Normal [facility] ED Provider Note Emergency Department Encounter [facility] EMERGENCY [facility]PT Patient: Danny Bedoya : 1980 Date of Evaluation: 05/01/2021 ED Provider: BEA Jauregui CNP As the [id number], I performed a medical screening history and [...] BEA Jauregui CNP 05/01/212000 Normal [facility] Glucose, Body Fluidon 2021 Glucose, Body Fluid 113 mg/dL Normal No Range [facility] Comment on above: Performed By: #### D IFBF, AMYM3, FLDCC, ALBM3, LDMS3, GLMS3 #### [facility] [address], [place] Hemogram w/ Autodiffon 05-01 Erythrocyte distribution width (RBC) [Ratio] 14.6 % High 11.5-14.5 [facility] Comment on above: Performed By: #### C /BLT #### [address] [place], [place] Hematocrit (Bld) [Volume fraction] 34.1 % Low 40.0-52.0 [facility] Comment on above: Performed By: #### C /BLT #### [address] [place], [place] Hemoglobin (Bld) [Mass/Vol] 11.9 g/dL Low 13.0-18.0 [facility] Comment on above: Performed By: #### C /BLT #### [address] [place], [place] MCH (RBC) [Entitic mass] 39.7 pg High 26.0-34.0 [facility] Comment on above: Performed By: #### C /BLT #### [address] [place] MCHC 34.8 % Normal 32.0-36.0 [facility] Comment on above: Performed By: #### C /BLT #### [address] [place], [place] MCV (RBC) [Entitic vol] 114.2 fL High 80.0-98.0 [facility] Comment on above: Performed By: #### C /BLT #### [facility] [address], [place] Platelet mean volume (Bld) [Entitic vol] 8.6 fL Normal 7.4-10.4 [facility] Comment on above: Performed By: #### C /BLT #### [facility] [address], [place] Platelets (Bld) [#/Vol] 82 10*3/uL Low 140-440 [facility] Comment on above: Performed By: #### C /BLT #### [address] [place], [place] RBC (Bld) [#/Vol] 2.99 10*6/uL Low 4.40-5.90 [facility] Comment on above: Performed By: #### C /BLT #### [address] [place], [place] WBC (Bld) [#/Vol] 11.1 10*3/uL High 3.6-10.7 [facility] Comment on above: Performed By: #### C /BLT #### [address] [place], [place] Hepatic Functionon 2 ALP [Catalytic activity/Vol] 349 U/L High 38-126 [facility] Comment on above: Performed By: #### C /BLD #### [address] [place], [place] ALT [Catalytic activity/Vol] 60 U/L High 0-49 [facility] Comment on above: Result Comment: The ALT test is performed by an updated assay method. Please note that the reference intervals have been changed and are now sex specific. Performed By: #### C /BLD #### [address] [place], [place] AST [Catalytic activity/Vol] 218 U/L High 15-46 [facility] Comment on above: Performed By: #### C /BLD #### [address] [place], [place] Bilirubin [Mass/Vol] 24.2 mg/dL High 0.2-1.3 [facility] Comment on above: Performed By: #### C /BLD #### [address] [place], [place] Bilirubin.indirect [Mass/Vol] 15.1 mg/dL Critically high 0.0-0.3 [facility] Comment on above: Performed By: #### C /BLD #### [address] [address] [place], [place] Protein [Mass/Vol] 7.5 g/dL Normal 6.3-8.2 [facility] Comment on above: Performed By: #### C /BLD #### [address] [address] [place], [place] Albumin [Mass/Vol] 2.7 g/dL Low 3.5-5.0 [facility] Comment on above: Performed By: #### C /BLD #### [address] [address] [place], [place] LDH, Body Fluidon 05-01-2021 Fluid Type Acites Normal [facility] Comment on above: Performed By: #### D IFBF, AMYM3, FLDCC, ALBM3, LDMS3, GLMS3 #### [address] [address] [place], [place] LDH, Body Fluid 143 U/L Normal No Range [facility] Comment on above: Performed By: #### D IFBF, AMYM3, FLDCC, ALBM3, LDMS3, GLMS3 #### [address] [address] [place], [place] Lactic Acidon 05-01-2021 Lactate [Moles/Vol] 3.8 mmol/L Critically high 0.7-2.0 [facility] Comment on above: Result Comment: Crit ical Panic Lactate has fallen below the [facility] CCL/ED Panic Call Protocol. For [facility] ED patients ONLY the Lactate Levels greater than 2.0 and less than or equal to 4.0 mmol/L fall under the Panic Call Policy. Performed By: #### C /BLD #### [address] [address] [address] [place], [place] Lipaseon 05-01-2021 Lipase [Catalytic activity/Vol] 446 U/L High 23-300 [facility] Comment on above: Performed By: #### C /BLD #### [address] [address] [address] [place], [place] Manual Diffon 05-01-2021 Abs Baso Cnt 0.0 10*3/uL Normal 0.0-0.2 [facility] Comment on above: Performed By: #### C /BLT #### [address] [place], [place] Abs Eosin Cnt 0.0 10*3/uL Normal 0.0-0.5 [facility] Comment on above: Performed By: #### C /BLT #### [address] [place], [place] Abs Lymph Cnt 0.7 10*3/uL Low 1.1-4.5 [facility] Comment on above: Performed By: #### C /BLT #### [address] [address] [place], [place] Abs Monocyte Cnt 0.9 10*3/uL Normal 0.2-1.1 [facility] Comment on above: Performed By: #### C /BLT #### [address] [place], [place] Abs Neutrophile Cnt 9.5 10*3/uL High 2.2-8.2 [facility] Comment on above: Performed By: #### C /BLT #### [address] [place], [place] Anisocytosis Slight Normal [facility] Comment on above: Performed By: #### C /BLT #### [address] Bands 0 % Normal 0-3 [facility] Comment on above: Performed By: #### C /BLT #### [address] [address] [place], [place] Basophils 0 % Normal 0-2 [facility] Comment on above: Performed By: #### C /BLT #### [facility] [address] [place], [place] Cells counted 100 Normal [facility] Comment on above: Performed By: #### C /BLT #### [facility] [address] [place], [place] Eosinophils 0 % Low 1-6 [facility] Comment on above: Performed By: #### C /BLT #### [facility] [address] [place], [place] Lymphocytes 6 % Low 20-40 [facility] Comment on above: Performed By: #### C /BLT #### [facility] [address] [place], [place] Macrocytosis Slight Normal [facility] Comment on above: Performed By: #### C /BLT #### [facility] [address] [place], [place] Monocytes 8 % Normal 2-10 [facility] Comment on above: Performed By: #### C /BLT #### [facility] [address] [place], [place] Ovalocytes Slight Normal [facility] Comment on above: Performed By: #### C /BLT #### [facility] [address] [place], [place] Poikilocytosis Slight Normal [facility] Comment on above: Performed By: #### C /BLT #### [facility] [address] [place], [place] RBC Morphology ABNORMAL Normal [facility] Comment on above: Performed By: #### C /BLT #### [facility] [address] [place], [place] Seg Neutrophils 86 % High 40-80 [facility] Comment on above: Performed By: #### C /BLT #### [facility] [address] [place], [place] Medical Cytology 2 Medical Cytology [facility] [id number] DEPARTMENT OF PATHOLOGY AND [facility] LABORATORY MEDICINE [address] [place] [id number] FINAL MEDICAL CYTOLOGY REPORT NAME: DANNY BEDOYA : 1980 41 Y M BILLDAKSHA NO.: [id number] LOCATION: [address] [place] [address] [facility] [id number] PROCEDURE 05/01/2021 B DATE: [...] characteristics determined by the clinical laboratories of [facility] [employer] [facility]. They have not been cleared by the [...] negativity on decalcified specimens. Case reviewed at [facility] [address] [place] [address]. DEPARTMENT OF PATHOLOGY AND LABORATORY MEDICINE [place], [place] [email or web address] Normal [facility] NT pro BNPon 05-01-2021 Natriuretic peptide B (Bld) [Mass/Vol] 59 pg/mL Normal 0-125 [facility] Comment on above: Performed By: #### C /BLD #### [address] [place], [place] Protime AND APTTon aPTT Coag (Bld) [Time] 44.2 s High 20.0-30.5 [facility] Comment on above: Result Comment: NOTE : The therapeutic time for Heparin anticoagulation, based on Xa activity inhibition, is an APTT of 46-80 seconds. Performed By: #### D IFBF, AMYM3, FLDCC, ALBM3, LDMS3, GLMS3 #### [address] [place], [place] INR 1.8 High 0.9-1.1 [facility] Comment on above: Result Comment: Herber [...] FLDCC, ALBM3, LDMS3, GLMS3 #### [facility] [address] [place], [place] PT Coag (PPP) [Time] 18.2 s High 9.0-12.0 [facility] Comment on above: Result Comment: . Performed By: #### D IFBF, AMYM3, FLDCC, ALBM3, LDMS3, GLMS3 #### [facility] [address] [place], [place] SARS-CoV-2, Flu A/B and RSVo n 05-01-2021 SARS-CoV-2 (COVID-19) RNA DANA+probe Ql (Unsp spec) SARS-CoV-2 --> Status: F Not Detected. Flu A PCR --> Status: F Not Detected. Flu B PCR --> Status: F Not Detected. RSV PCR --> Status: F Not Detected. Expected Result: Not Detected _ Method: Real-time, RT-PCR This assay was developed by [employer] and distributed under an Emergency Use Authorization (EUA) granted by the FDA for the qualitative detection of nucleic acids from SARS-CoV-2, Influenza A, Influenza B, and Respiratory Syncytial Virus. Provider and patient fact sheets can be found at https://www.fda.gov/media/ 69101/download and https://www.fda.gov/media/ 95189/download. Expected Result: Not Detected _ Method: Real-time, RT-PCR This assay was developed by [employer] and distributed under an Emergency Use Authorization (EUA) granted by the FDA for the qualitative detection of nucleic acids from SARS-CoV-2, Influenza A, Influenza B, and Respiratory Syncytial Virus. Provider and patient fact sheets can be found at https://www.fda.gov/media/ 11007/download and https://www.fda.gov/media/ 46162/download. Normal [facility] Comment on above: Performed By: #### D IFBF, AMYM3, FLDCC, ALBM3, LDMS3, GLMS3 #### [facility] [address] [place], [place] Troponin Ion 05-01-2021 Troponin I.cardiac [Mass/Vol] ng/mL Normal 0.000-0.03 4 [facility] Comment on above: Result Comment: . Performed By: #### C /BLT #### [facility] [address] [place] [address] US Abdomen Limitedon 022 US Abdomen Limited [facility]: [id number] ACCESSION EXAM DATE/TIME PROCEDURE ORDERING PROVIDER [id number] 05/01/2021 21:45 EST US Abdomen Limited [id number] -CHARANJIT QUINONEZ CPT code 38505 Reason For Exam (US Abdomen Limited) RUQ [...] Transcribed Date and Time: 05/01/2021 10:17 Normal [facility] Vital Signs Date Time Vital Sign Value Performing Clinician Facility 07-23-2024 08:00-0400 Body temperature 97.5 [degF] Dr. Lexi Barnes MD Work Phone: [facility] 07-23-2024 08:00-0400 Diastolic blood pressure 83 mm[Hg] Dr. Lexi Barnes MD Work Phone: [facility] 07-23-2024 08:00-0400 Heart rate 80 /min Dr. Lexi Barnes MD Work Phone: [facility] 07-23-2024 08:00-0400 Respiratory rate 16 /min Dr. Lexi Barnes MD Work Phone: [facility] 07-23-2024 08:00-0400 SaO2% (BldA) [Mass fraction] 98 % Dr. Lexi Barnes MD Work Phone: [facility] 07-23-2024 08:00-0400 Systolic blood pressure 134 mm[Hg] Dr. Lexi Barnes MD Work Phone: [facility] 07-23-2024 05:46-0400 Body mass index (BMI) [Ratio] 26.9 kg/m2 Dr. Lexi Barnes MD Work Phone: [facility] 07-23-2024 05:46-0400 Body weight [address] Lexi Barnes MD Work Phone: [facility] 07-23-2024 03:41-0400 Inhaled oxygen flow rate 2 L/min Dr. Lexi Barnes MD Work Phone: [facility] 07-22-2024 04:14-0400 Body height 162.[address] Lexi Barnes MD Work Phone: [facility] 07-22-2024 03:33-0400 Diastolic blood pressure 90 mm[Hg] Dr. Lexi Barnes MD Work Phone: [facility] 07-22-2024 03:33-0400 Heart rate 87 /min Dr. Lexi Barnes MD Work Phone: [facility] 07-22-2024 03:33-0400 Inhaled oxygen flow rate 4 L/min Dr. Lexi Barnes MD Work Phone: [facility] 07-22-2024 03:33-0400 Respiratory rate 19 /min Dr. Lexi Barnes MD Work Phone: [facility] 07-22-2024 03:33-0400 SaO2% (BldA) [Mass fraction] 93 % Dr. Lexi Barnes MD Work Phone: [facility] 07-22-2024 03:33-0400 Systolic blood pressure 143 mm[Hg] Dr. Lexi Barnes MD Work Phone: [facility] 07-22-2024 01:28-0400 Body temperature 97.9 [degF] Dr. Lexi Barnes MD Work Phone: [facility] 07-22-2024 00:51-0400 Inhaled oxygen concentration 30 % Dr. Lexi Barnes MD Work Phone: [facility] 07-22-2024 00:49-0400 Body height 162.[address] Lexi Barnes MD Work Phone: [facility] 07-22-2024 00:49-0400 Body mass index (BMI) [Ratio] 61 kg/m2 Dr. Lexi Barnes MD Work Phone: [facility] 07-22-2024 00:49-0400 Body weight 161.[address] Lexi Barnes MD Work Phone: [facility] 07-06-2024 15:24-0400 Body temperature 97.8 [degF] Dr. Lexi Barnes MD Work Phone: [facility] 07-06-2024 15:24-0400 Diastolic blood pressure 90 mm[Hg] Dr. Lexi Barnes MD Work Phone: [facility] 07-06-2024 15:24-0400 Heart rate 107 /min Dr. Lexi Barnes MD Work Phone: [facility] 07-06-2024 15:24-0400 Respiratory rate 20 /min Dr. Lexi Barnes MD Work Phone: [facility] 07-06-2024 15:24-0400 SaO2% (BldA) [Mass fraction] 91 % Dr. Lexi Barnes MD Work Phone: [facility] 07-06-2024 15:24-0400 Systolic blood pressure 151 mm[Hg] Dr. Lexi Barnes MD Work Phone: [facility] 07-06-2024 14:00-0400 Inhaled oxygen flow rate 3 L/min Dr. Lexi Barnes MD Work Phone: [facility] 07-06-2024 04:01-0400 Body mass index (BMI) [Ratio] 26.1 kg/m2 Dr. Lexi Barnes MD Work Phone: [facility] 07-06-2024 04:01-0400 Body weight 69.[address] Lexi Barnes MD Work Phone: [facility] 07-06-2024 03:53-0400 Body height 162.[address] Lexi Barnes MD Work Phone: [facility] 07-06-2024 02:33-0400 Body temperature 98.1 [degF] Dr. Lexi Barnes MD Work Phone: [facility] 07-06-2024 02:33-0400 Diastolic blood pressure 101 mm[Hg] Dr. Lexi Barnes MD Work Phone: [facility] 07-06-2024 02:33-0400 Heart rate 92 /min Dr. Lexi Barnes MD Work Phone: [facility] 07-06-2024 02:33-0400 Respiratory rate 20 /min Dr. Lexi Barnes MD Work Phone: [facility] 07-06-2024 02:33-0400 SaO2% (BldA) [Mass fraction] 97 % Dr. Lexi Barnes MD Work Phone: [facility] 07-06-2024 02:33-0400 Systolic blood pressure 144 mm[Hg] Dr. Lexi Barnes MD Work Phone: [facility] 07-05-2024 21:59-0400 Body height 165.[address] Lexi Barnes MD Work Phone: [facility] 06-11-2024 18:30-0500 Body temperature 98 [degF] Dr. Lexi Barnes MD Work Phone: [facility] 06-11-2024 18:30-0500 Diastolic blood pressure 89 mm[Hg] Dr. Lexi Barnes MD Work Phone: [facility] 06-11-2024 18:30-0500 Heart rate 104 /min Dr. Lexi Barnes MD Work Phone: [facility] 06-11-2024 18:30-0500 Respiratory rate 16 /min Dr. Lexi Barnes MD Work Phone: [facility] 06-11-2024 18:30-0500 SaO2% (BldA) [Mass fraction] 93 % Dr. Lexi Barnes MD Work Phone: [facility] 06-11-2024 18:30-0500 Systolic blood pressure 124 mm[Hg] Dr. Lexi Barnes MD Work Phone: [facility] 06-11-2024 17:22-0500 Inhaled oxygen flow rate 2 L/min Dr. Lexi Barnes MD Work Phone: [facility] 06-11-2024 16:18-0500 Body mass index (BMI) [Ratio] 25.3 kg/m2 Dr. Lexi Barnes MD Work Phone: [facility] 06-11-2024 16:18-0500 Body weight [address] Lexi Barnes MD Work Phone: [facility] 02-16-2024 16:06-0400 Body height 162.6 cm Dany Painter MD Work Phone: [facility] 02-16-2024 16:06-0400 Body mass index (BMI) [Ratio] 26.3 kg/m2 Dany Painter MD Work Phone: [facility] 02-16-2024 16:06-0400 Body temperature 98.4 [degF] Dany Painter MD Work Phone: [facility] 02-16-2024 16:06-0400 Body weight 69.49 kg Dany Painter MD Work Phone: [facility] 02-16-2024 16:06-0400 Diastolic blood pressure 94 mm[Hg] Dany Painter MD Work Phone: [facility] 02-16-2024 16:06-0400 Heart rate 80 /min Dany Painter MD Work Phone: [facility] 02-16-2024 16:06-0400 SaO2% (BldA) [Mass fraction] 99 % Dany Painter MD Work Phone: [facility] 02-16-2024 16:06-0400 Systolic blood pressure 140 mm[Hg] Dany Painter MD Work Phone: [facility] 10-25-2023 22:09-0400 Diastolic Blood Pressure Non-Invasive 109 mm[Hg] YVONNE REICHFIELD DO [facility] 10-25-2023 22:09-0400 Heart rate 86 /min YVONNE REICHFIELD DO [facility] 10-25-2023 22:09-0400 Respiratory rate 23 /min YVONNE REICHFIELD DO [facility] 10-25-2023 22:09-0400 Systolic Blood Pressure Non-Invasive 166 mm[Hg] YVONNE REICHFIELD DO [facility] 10-25-2023 21:01-0400 Heart rate 98 /min YVONNE REICHFIELD DO [facility] 10-25-2023 21:01-0400 Respiratory rate 22 /min [facility] 10-25-2023 20:35-0400 Body temperature 96.98 [degF] [facility] 10-25-2023 20:35-0400 Diastolic Blood Pressure Non-Invasive 99 mm[Hg] [facility] DO [facility] 10-25-2023 20:35-0400 Heart rate 101 /min [facility] DO [facility] 10-25-2023 20:35-0400 Respiratory rate 21 /min [facility] 10-25-2023 20:35-0400 Systolic Blood Pressure Non-Invasive 167 mm[Hg] [facility] DO [facility] 04-07-2023 14:52-0500 Body height 165.1 cm [facility] 04-07-2023 14:52-0500 Body mass index (BMI) [Ratio] 25.4 kg/m2 [facility] 04-07-2023 14:52-0500 Body temperature 97.5 [degF] [facility] 04-07-2023 14:52-0500 Body weight 69.3 kg [facility] 04-07-2023 14:52-0500 Diastolic blood pressure 95 mm[Hg] [facility] 04-07-2023 14:52-0500 Heart rate 74 /min [facility] 04-07-2023 14:52-0500 Respiratory rate 18 /min [facility] 04-07-2023 14:52-0500 SaO2% (BldA) [Mass fraction] 98 % [facility] 04-07-2023 14:52-0500 Systolic blood pressure 159 mm[Hg] [facility] 05-20-2022 10:27-0500 Body height 165.1 cm No Primary Care Physician [facility] 05-20-2022 10:27-0500 Body mass index (BMI) [Ratio] 27.1 kg/m2 No Primary Care Physician [facility] 05-20-2022 10:27-0500 Body temperature 97.5 [degF] No Primary Care Physician [facility] 05-20-2022 10:27-0500 Body weight 73.93 kg No Primary Care Physician [facility] 05-20-2022 10:27-0500 Diastolic blood pressure 82 mm[Hg] No Primary Care Physician [facility] 05-20-2022 10:27-0500 Heart rate 91 /min No Primary Care Physician [facility] 05-20-2022 10:27-0500 Respiratory rate 18 /min No Primary Care Physician [facility] 05-20-2022 10:27-0500 SaO2% (BldA) [Mass fraction] 97 % No Primary Care Physician [facility] 05-20-2022 10:27-0500 Systolic blood pressure 128 mm[Hg] No Primary Care Physician [facility] Encounters Encounter Date Encounter Type Care Provider Facility Start: 07-23-2024 Non-patient / Non-visit Dr. Rosey Daly MD -[facility] Work Phone: Start: 07-22-2024 ambulatory [...] Start: 05-10-2024 End: 05-10-2024 ambulatory LAUREN CUEVAS Facility:[id number] Start: 04-28-2024 ambulatory CHRISTIANO BROOKS Facility :[facility] Start: 03-29-2024 End: 03-29-[address] Lexi Barnes MD Work Phone: -Laboratory Work Phone: Start: 03-29-2024 End: 03-29-2024 [facility] Start: 02-16-2024 End: 02-16-2024 ambulatory DANY PAINTER Facility:[facility] Start: 02-16-2024 End: 02-16-2024 Patient encounter procedure Dany Painter MD Work Phone: General Surgery Comment on above: Non-recurrent bilate ral inguinal hernia without obstruction or gangrene (Primary Dx) Start: 02-03-2024 End: 02-03-2024 Emergency department patient visit Kirit amelia Facility:[facility] Start: 10-25-2023 End: 10-25-2023 [facility] Start: 09-15-2023 End: 09-15-2023 ambulatory [facility] Facility:[facility] Start: 06-16-2023 End: 06-26-[address] [facility] Work Phone: Start: 06-16-2023 End: 06-26-[address] [facility]Labor[facility] Work Phone: Start: 04-07-2023 End: 04-07-2023 Emergency department patient visit [facility] Work Phone: Start: 03-10-2023 End: 03-27-[address] [facility] Work Phone: Start: 03-10-2023 End: 03-27-[address] [facility] Work Phone: Start: 09-18-2022 End: 09-18-[address] [facility] Work Phone: Start: 09-18-2022 End: 09-18-[address] [facility] Start: 07-31-2022 End: 08-25-[address] [facility] Start: 07-17-2022 End: 07-26-2022 ambulatory No Primary Care Physician [facility] Work Phone: Start: 07-17-2022 End: 07-26-2022 Discharged Recurring No Primary Care Physician [facility] Start: 06-20-2022 End: 06-20-2022 ambulatory No Primary Care Physician [facility] Work Phone: Start: 06-20-2022 End: 06-20-2022 Discharged Recurring No Primary Care Physician [facility] Start: 05-30-2022 End: 05-30-2022 Patient encounter procedure No Primary Care Physician [facility] Start: 05-20-2022 End: 05-20-2022 Patient encounter procedure No Primary Care Physician [facility] Internal Medicine Procedures Date Procedure [...] Author Start: 10-30-2026 Lipid panel Lipid Screening [facility] Start: 07-23-[address] [facility] Start: 07-22-2024 Gas panel - Arterial blood [facility] Start: 07-22-2024 Following clinical pathway protocol [facility] Start: 07-22-2024 Assessment of risk of venous thromboembolism [facility] Start: 07-22-2024 Insertion of catheter into peripheral vein [facility] Start: 07-22-2024 Measuring intake and output [facility] Start: 07-22-[address] [facility] Start: 07-22-2024 Providing care according to standard [facility] Start: 07-22-2024 [address]vision [address] privileges [facility] Start: 07-22-[address] [facility] Start: 07-22-2024 Respiratory pathogens DNA and RNA panel - Respiratory specimen by DANA with probe detection [facility] Start: 07-22-[address] [facility] Start: 07-22-[address] [facility] Start: 07-22-2024 End: 07-22-2024 [facility] Start: 07-22-2024 Hospital admission, emergency, from emergency room, medical nature [facility] Start: 07-22-2024 Continuous pulse oximetry [facility] Start: 07-22-2024 Dual pressure spontaneous ventilation support [facility] Start: 07-22-2024 End: 07-22-2024 [facility] Start: 07-22-[address] [facility] Start: 07-06-[address] [facility] Start: 07-06-[address] [facility] Start: 07-06-2024 End: 07-06-2024 [facility] Start: 07-06-2024 Following clinical pathway protocol [facility] Start: 07-06-2024 Assessment of risk of venous thromboembolism [facility] Start: 07-06-[address] [facility] Start: 07-06-[address] [facility] Start: 07-06-2024 Insertion of catheter into peripheral vein [facility] Start: 07-06-[address]24 Me[address]uring intake and output [facility] Start: 07-06-2024 Providing care according to standard [facility] Start: 07-06-2024 Provision of activity privileges [facility] Start: 07-06-[address] [facility] Start: 07-06-2024 Gas panel - Venous blood [facility] Start: 07-06-2024 Hospital admission, emergency, from emergency room, medical nature [facility] Start: 07-06-[address] [facility] Start: 07-06-[address] [facility] Start: 06-11-2024 [facility] Start: 06-11-2024 [facility] Start: 12-28-2023 Covid-19 Vaccine ( season) Covid-19 Vaccine ( season) [facility] Start: 12-28-2023 Influenza vaccination Influenza Vaccine (#1) [facility] Start: 04-07-2023 [facility] Start: 05-05-2022 Hepatitis B Vaccine (3 of 3 - 19+ 3-dose series) Hepatitis B Vaccine (3 of 3 - 19+ 3-dose series) [facility] Start: 02-07-1999 Shingrix Vaccine (1 of 2) Shingrix Vaccine (1 of 2) [facility] Start: 02-07-1999 Urine microalbumin profile DTaP,Tdap,Td Vaccine (1 - Tdap) [facility] Start: 02-07-1998 Annual PCP Team Chronic Disease Visit Annual PCP Team Chronic Disease Visit [facility] Start: 02-07-1998 BP Controlled (<130/80) BP Controlled (<130/80) [facility] Start: 02-07-1998 HIV screening HIV Screening [facility] Start: 02-07-1998 Spirometry Spirometry [facility] Start: 02-07-1986 Pneumococcal vaccination Pneumococcal Vaccine (1 of 2 - PCV) [facility] Magnesium measurement [facility] Patient Education [facility] Work Phone: Patient referral [facility] Work Phone: Tacrolimus [Mass/vol ume] in Blood [facility] Tacrolimus [Mass/vol ume] in Blood [facility] Troponin T.cardiac [Mass/volume] in Serum or Plasma by High sensitivity method [facility] Troponin T.cardiac [Mass/volume] in Serum or Plasma by High sensitivity method [facility] Immunizations Immunization Date Immunization Notes Care Provider Fa cility 07-06-2024 influenza, seasonal, injectable, preservative free Dr. Lexi Barnes MD Work Phone: [facility] 12-29-2020 Covid (Pfizer) No Primary Ca re Physician [facility] 11-28-2020 Covid (Pfizer) No Primary Ca re Physician [facility] 02-07-2020 influenza, injectabl e, quadrivalent, preservative free [facility] 02-07-2020 influenza, seasonal, injectable No Primary Care Physician [facility] 02-07-2020 influenza, seasonal, injectable, preservative free Dr. Lexi Barnes MD Work Phone: [facility] 02-07-2020 influenza virus vaccine, unspecified formulation Dany Painter MD Work Phone: [facility] 07-19-2014 influenza, seasonal, injectable, preservative free Dr. Lexi Barnes MD Work Phone: [facility] 02-26-2013 Influenza virus vaccine No P [facility] Care Physician [facility] 07-27-2012 pneumococcal vaccine , unspecified formulation No Primary Care Physician [facility] 02-27-2008 influenza virus vaccine, unspecified formulation Dany Painter MD Work Phone: [facility] Payers Date Payer Category Payer Unknown [id number] 2024 Unknown 0 2023 Self-pay [id number] 2022 Unknown [facility] [id number] 2022-Present [phone] [address] [place] [address] Indemnity [id number] 2022 Unknown [id number] 2021 Medicaid MEDICAID OOS GEN NATALIE MEDICAID OOS GENERIC [id number] 2021-Present [phone] [address] [place] [address] Medicaid [id number] 2021 Unknown [id number] 2016 Unknown [facility] [id number] 1980 Unknown [id number] Unknown [id number] Unknown [id number] Unknown [id number] Unknown [id number] Unknown [id number] Unknown [id number] [id number] Unknown [id number] Unknown [id number] [id number] Unknown [id number] [id number] Unknown [id number] Social History Date Type Detail Facility Start: 05-20-2022 End: 04-07-2023 Tobacco smoking status NHIS Unknown if ever smoked [facility] Start: 02-06-2020 None [facility] Start: 05-24-2020 Spouse/ Signif icant Other [facility] Start: 08-10-2020 Non-smoker [facility] Start: 1980 Sex Assigned At Male [facility] Tobacco smoking status No Smokin g Status Entered [facility] Start: 06-19-2015 End: 07-22-2024 Tobacco smoking status NHIS Never smoked tobacco [facility] Start: 06-19-2015 Tobacco use and exposure Smokeless tobacco non-user [facility] Start: 02-16-2024 Alcoholic beverage intake Ex-drinker (finding) [facility] Start: 04-02-2020 End: 02-16-2024 History of Social function [facility] Start: 04-02-2020 End: 02-16-2024 Tobacco use panel [facility] National Score (1-100), lower number is lower risk Not on file [facility] Start: 02-13-2024 Alcohol Comment 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 Goals Date Patient Goal Desired Activity /State Functional Status Date Assessment Result Facility 07-23-2024 Functional status Up ad ysabel [facility] Work Phone: 07-06-2024 Functional status Up ad ysabel;Bathroom Priv ilege [facility] Work Phone: 07-06-2024 Functional status Tolerates Activity Well [facility] Work Phone: 10-25-2023 Functional Status Independent [facility] 10-25-2023 Functional Status Standard Safet y ID band on, Call device within reach, Bed in low position, Wheels locked, Upper/Half-Length side-rails up, Phone within reach, personal items within reach, Bedside Cart Locked, Visitor at bedside [facility] Mental Status Date Assessment Result Facility 07-22-2024 Cognitive function Voice/Name [facility] Work Phone: 07-06-2024 Cognitive function Voice/Name [facility] Work Phone: 10-25-2023 Mental Status Orientation Oriented x 4 [facility] 10-25-2023 Mental Status [facility] 04-07-2023 Cognitive function Level Of Cons ciousness Awake;Alert;Appropriate;Follow s Commands [facility] Work Phone: Clinical Notes 05-08-2021 to 07-23-2024 Note Date & Type Note Facility 07-23-[address] [facility] 07-23-2024 Note [facility] Medical Records Department [address] [place] [address] Discharge Summary 07/23/24 1230 MR#: [id number] Acct: [id number] Name: DANNY BEDOYA Rep #: [id number] : 1980 44 From: Andrea Daly MD PCP: Dr. Lexi Barnes MD Status:ADM [facility] Providers Date of Admission: 07/22/24 Primary Care [...] complicated by Respiratory Insufficiency who re-presents to [facility] ER complaining of SOB. Mr. Bedoya reports his symptoms began approximately one day prior to admission with the sudden-onset of SOB and wheezing that progressively worsened throughout the day. 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 [facility] 07-23-2024 Discharge summary Note Date/Time July 23, 2024 9:29am [facility] Medical Records Department [address] [place] [address] Instructions for Home/Discharge Instructions 07/23/24 0913 MR#: [id number] Acct: [id number] Name: DANNY BEDOYA Rep #:[id number] : [...] - Within 1 Week Echo Michael NP, ENTERTAINMENT LAWYER-C [Med Staff - [facility]] - Within 1 Month Disposition Disposition (needs filled in before D/C Order can be placed): Home, Self Care 07/23/24928<Electronically signed by Andrea Daly MD>Andrea Daly MD CC: Dr. Lexi Barnes MD; Dr. Lisa Jain, DO ~ Signed [facility] Work Phone: 1(275) 570-910203-28-2025 Discharge summary [facility] Medical Records Department [address] [place] [address] Instructions for Home/Discharge Instructions 07/23/24912 MR#: [id number] Acct: [id number] Name: DANNY BEDOYA Rep #:[id number] : [...] - Within 1 Week Echo Michael NP, ENTERTAINMENT LAWYER-C [Med Staff - [facility]] - Within 1 Month Disposition Disposition (needs filled in before D/C Order can be placed): Home, Self Care 07/23/24 0929Nicshirlene Dlay MD CC: Dr. Lexi Barnes MD; Dr. Lisa Jain DO ~ [facility]03-27-2025 History and physical note Author Lisa Wallis [facility] Note Date/Time July 22, 2024 8:[address] [facility] Medical Records Department [address] [facility] [place] [address] H&P Exam - Hospitalist 07/22/24309 MR#: [id number] Acct: [id number] Name: DANNY BEDOYA Rep #:[id number] : 1980 44 From: Lisa Rivas DO PCP: Dr. Lexi Barnes MD Status:ADM IN Location: [facility] [id number] [facility] - General General Date of Admission: [...] complicated by Respiratory Insufficiency who re-presents to [facility] ER complaining of SOB. Mr. Bedoya reports his symptoms began approximately one day prior to admission with the sudden-onset of SOB and wheezing that progressively worsened throughout the day. He states his symptomsbecame worse with laying flat and he has noticed his attacked may be triggered by exposure to the oven pool cleaner used at his job. He also [...] is expected to extend beyond 2 midnights. [facility] Medical History Cirrhosis Asthma Alcohol [...] 70.1 H, Lymph % (Auto) 16.6 L, [place] % (Auto) 7.6, Eos % (Auto) 4.4, [...] No evidence of acute disease. Reading Location: [facility] Assessment & Plan Assessment/Plan (1) Asthma [...] environmental toxic exposure at work to oven pool cleaner - Admit to general medical floor. Continue IV Solu-Medrol begun in ER plus scheduled and as needed nebulizers. Start doxycycline IV plus mucolytic and probiotic. Give acetaminophen prn pain or fever. Patient counseled to avoid any contact with oven pool cleaner or fumes. 2. Acute Hypoxic Respiratory [...] 55 minutes. Charges/Coding Visit Charges Inpatient E&M: 45728 Init Hosp L3 07/22/24 0816 <Electronically signed by Lisa Jain DO> Cosigner Signature (if applicable): CC: Dr. Lexi Barnes MD; Dr. Lisa Jain DO~ Signed [facility] Work Phone: 1(366) 756-935503-27-2025 History and physical note [facility] Medical Records Department [address] [place] [address] H&P Exam - Hospitalist 07/22/24 0310 MR#: [id number] Acct: [id number] Name: DANNY BEDOYA Rep #:[id number] : 1980 44 From: Lisa Rivas DO PCP: Dr. Lexi Barnes MD Status:ADM IN Location: [facility] [id number] HPI - General General Date of Admission: [...] complicated by Respiratory Insufficiency who re-presents to [facility] ER complaining of SOB. Mr. Bedoya reports his symptoms began approximately one day prior to admission with the sudden-onset of SOB and wheezing that progressively worsened throughout the day. He states his symptomsbecame worse with laying flat and he has noticed his attacked may be triggered by exposure to the oven pool cleaner used at his job. He also [...] is expected to extend beyond 2 midnights. 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 Reading Location: [facility] Assessment & Plan Assessment/Plan (1) Asthma [...] environmental toxic exposure at work to oven pool cleaner - Admit to general medical floor. Continue IV Solu-Medrol begun in ER plus scheduled and as needed nebulizers. Start doxycycline IV plus mucolytic and probiotic. Give acetaminophen prn pain or fever. Patient counseled to avoid any contact with oven pool cleaner or fumes. 2. Acute Hypoxic Respiratory [...] 55 minutes. Charges/Coding Visit Charges Inpatient E&M: 99660 Init Hosp L3 07/22/24 0816 Cosigner Signature (if applicable): CC: Dr. Lexi Barnes MD; Dr. Lisa Jain, DO~ Signed [facility]03-27-2025 Discharge summary Author Natalie Jeffery [facility] Note Date/Time July 22, 2024 6:[address] [facility] Medical Records Department [address] [place] [address] Emergency Department Summary 07/22/24 MR#: [id number] Acct: [id number] Name: DANNY BEDOYA Rep #:[id number] : 1980 44 From: Natalie Hu PCP: Dr. 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 Reading Location: [facility] Portable 1 view chest x-ray was [...] asinus tachycardia with a rate of 104. [place] interval, QRS interval, and QTc intervals were all normal. [place] was normal. There are no acute ST [...] MD [Primary Care Provider] - Print Language: Nepalese Disposition Disposition: Acute Care Hospital [facility] What to do if you have Problems For any increased pain, shortness of breath, bleeding, nausea or vomiting, chestpain, or any unexpected problems, contact your Primary Care Provider. Call [facility] ([phone]) or report to the closest Emergency Room. Call 911 if necessary. 07/22/24 0602 <Electronically signed by Natalie Jeffery DO> Cosigner Signature (if applicable): CC: Dr. Lexi Barnes MD ~ Signed [facility] Work Phone: 1(586) 593-927603-27-2025 Discharge summary [facility] Medical Records Department [address] [place] [address] Emergency Department Summary 07/22/24 MR#: [id number] Acct: [id number] Name: DANNY BEDOYA Rep #:[id number] : 1980 44 From: Natalie Hu PCP: Dr. 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 Reading Location: [facility] Portable 1 view chest x-ray was [...] asinus tachycardia with a rate of 104. [place] interval, QRS interval, and QTc intervals were all normal. [place] was normal. There areno acute ST or [...] MD [Primary Care Provider] - Print Language: Nepalese Disposition Disposition: Acute Care Hospital [facility] What to do if you have Problems For any increased pain, shortness of breath, bleeding, nausea or vomiting, chestpain, or any unexpected problems, contact your Primary Care Provider. Call [facility] ([phone]) or report tothe closest Emergency Room. Call 911 if necessary. 07/22/24 0602 Cosigner Signature (if applicable): CC: Dr. Lexi Barnes MD ~ Signed [facility]03-27-2025 Radiology Diagnostic study note [facility] Imaging Services [address] [place], [place] [address] Chest 1 View (Portable) MR#: [id number] Acct: [id number] Name: DANNY BEDOYA Rep #: [id number] : 1980 M 44 From: Benedicto Srinivasan MD PCP: Dr. Lexi Barnes MD Status: REG ER Study:Chest 1 View (Portable) Date of Exam: 07/22/24 Exam# [id number] Ordering Dr: Natalie Jeffery DO PROCEDURE: CHEST [...] No evidence of acute disease. Reading Location: [id number] CC: Dr. Lexi Barnes MD; Dr. Natalie Jeffery, DO ~ Insulation Board Coater Operator: Signed [facility]03-11-2025 Consult note [facility] Medical Records Department [address] [place] [address] Counseling Note - Pharmacy 07/06/24 1534 MR#: [id number] Acct: [id number] Name: DANNY BEDOYA Rep #:[id number] : 1980 44 From: Crow Tineo PCP: Dr. Lexi Barnes MD Status:ADM IN Y Location: [facility] [id number] Pharmacy [facility] has performed discharge medication reconciliation [...] Signature (if applicable): Date CC: ~ Signed [facility]03-11-2025 Discharge summary Author Natalie Dasilva [facility] Note Date/Time July 06, 2024 11: 33[facility] Medical Records Department [address] [place] [address] Discharge Summary 07/06/24 1113 MR#: [id number] Acct: [id number] Name: DANNY BEDOYA Rep #:[id number] : 1980 44 From: Natalie Dasilva DO PCP: Dr. Lexi Barnes MD Status:ADM [facility] Providers Date of Admission: 07/06/24 Primary Care [...] % (Auto) 64.3, Lymph % (Auto) 19.5, [place] % (Auto) 7.6, Eos % (Auto) 7.1 [...] 88.8 H, Lymph % (Auto) 9.2 L, [place] %(Auto) 1.1, Eos % (Auto) 0.2, Baso [...] Provider] - Charges/Coding Visit Charges OBSV E&M: 45811 Observ/hosp same date L2 (greater than 30 ) 07/06/24 1133 <Electronically signed by Natalie Dasilva DO> Cosigner Signature (if applicable): CC: Dr. Lexi Barnes MD; Dr. Natalie Dasilva DO~ Signed [facility] Work Phone: 1(484) 568-483003-11-2025 Progress note Author Natalie Dasilva [facility] Note Date/Time July 06, 2024 11: 13am [facility] Medical Records Department [address] [place] [address] Progress Note - Hospitalist 07/06/24 0825 MR#: [id number] Acct: [id number] Name: DANNY BEDOYA Rep #:[id number] : 1980 44 From: Natalie Dasilva DO PCP: Dr. Lexi Barnes MD Status:ADM IN Location: [place] [address] Reason for Visit Reason for Visit: Diagnoses [...] % (Auto) 64.3, Lymph % (Auto) 19.5, [place] % (Auto) 7.6, Eos % (Auto) 7.1 [...] 88.8 H, Lymph % (Auto) 9.2 L, [place] %(Auto) 1.1, Eos % (Auto) 0.2, Baso [...] IMPRESSION: No acute cardiopulmonary process. Reading Location: [facility] Physical Exam Const alert and no apparent [...] Cosigner Signature (if applicable): CC: ~ Signed [facility] Work Phone: 1(454) 911-788803-11-2025 Discharge summary [facility] Medical Records Department [address] [place] [address] Discharge Summary 07/06/24 1113 MR#: [id number] Acct: [id number] Name: DANNY BEDOYA Rep #:[id number] : 1980 44 From: Natalie Dasilva DO PCP: Dr. Lexi Barnes MD Status:ADM IN Location: [place] [address] Providers Date of Admission: 07/06/24 Primary Care [...] % (Auto) 64.3, Lymph % (Auto) 19.5, [place] % (Auto) 7.6, Eos % (Auto) 7.1 [...] 88.8 H, Lymph % (Auto) 9.2 L, [place] %(Auto) 1.1, Eos % (Auto) 0.2, Baso [...] IMPRESSION: No acute cardiopulmonary process. [facility] Inst[facility] Discharge Diet: No restrictions DC [...] Provider: Natalie Dasilva Primary Care Provider: Lexi Barnse Consulting Providers: Lisa Jain Discharge Orders/Prescriptions Prescriptions: [...] Provider] - Charges/Coding Visit Charges OBSV E&M: 11766 Observ/hosp same date L2 (greater than 30 ) 07/06/24 1133 Cosigner Signature (if applicable): CC: Dr. Lexi Barnes MD; Dr. Natalie Dasilva DO~ Signed [facility]03-11-2025 [facility] Medical Records Department [address] [place] [address] Discharge Summary 07/06/24 1113 MR#: [id number] Acct: [id number] Name: DANNY BEDOYA Rep #: [id number] : 1980 44 From: Natalie Dasilva DO PCP: Dr. Lexi Barnes MD Status:ADM IN Location: [facility] [id number] Providers Date of Admission: 07/06/24 Primary Care [...] % (Auto) 64.3, Lymph % (Auto) 19.5, [place] % (Auto) 7.6, Eos % (Auto) 7.1 [...] 88.8 H, Lymph % (Auto) 9.2 L, [place] % (Auto) 1.1, Eos % (Auto) 0.2, [...] moderate or high (more content not included)... [facility]03-11-2025 Progress note [facility] Medical Records Department [address] [place] [address] Progress Note - Hospitalist 07/06/24 0825 MR#: [id number] Acct: [id number] Name: DANNY BEDOYA Rep #:[id number] : 1980 44 From: Natalie Dasilva DO PCP: Dr. Lexi Barnes MD Status:ADM [facility] Reason for Visit Reason for Visit: Diagnoses [...] % (Auto) 64.3, Lymph % (Auto) 19.5, [place] % (Auto) 7.6, Eos % (Auto) 7.1 [...] 88.8 H, Lymph % (Auto) 9.2 L, [place] %(Auto) 1.1, Eos % (Auto) 0.2, Baso [...] Cosigner Signature (if applicable): CC: ~ Signed [facility]03-11-2025 History and physical note Author Lisa Wallis [facility] Note Date/Time July 06, 2024 5:5 6am [facility] Medical Records Department [address] [place] [address] H&P Exam - Hospitalist 07/06/24 0218 MR#: [id number] Acct: [id number] Name: DANNY BEDOYA Rep #:[id number] : 1980 44 From: Lisa Rivas DO PCP: Dr. Lexi Barnes MD Status:ADM IN Location: [facility] [id number] [facility] - General General Date of Admission: [...] allergy to lisinopril (angioedema), who presents to [facility] ER complaining of shortness of breath and [...] is expected to extend beyond 2 midnights. 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 smoker Electronic Cigarette Use: [...] % (Auto) 64.3, Lymph % (Auto) 19.5, [place] % (Auto) 7.6, Eos % (Auto) 7.1 [...] ABG Data ABG results: RUN DATE: 07/06/24 [facility], DEPARTMENT OF LABORATORIES PAGE 1 RUN TIME: 05 Specimen Inquiry [address], [place], [address] PATIENT: DANNY BEDOYA LOC: MS3 U #: [id number] : 1980 AGE/SX: 44/M FACILITY: [facility] ROOM: [facility] RE07/06/[address]: Anita Mccarthy STATUS:ADM IN ED: 1 DIS: ~ SPEC #: [id number] MARIVEL: 07/06/24 STATUS: COMP REQ #: [id number] RECD: 07/06/[address]: Dr. Lisa Jain, [...] 55 minutes. Charges/Coding Visit Charges Inpatient E&M: 18582 Init Hosp L2 07/06/24 0556 <Electronically signed by Lisa Jain DO> Cosigner Signature (if applicable): CC: Dr. Lexi Barnes MD; Dr. Lisa Jain DO~ Signed [facility] Work Phone: 1(423) 516-419203-11-2025 History and physical note [facility] Medical Records Department [address] [place] [address] H&P Exam - Hospitalist 07/06/24 0218 MR#: [id number] Acct: [id number] Name: DANNY BEDOYA Rep #:[id number] : 1980 44 From: Lisa Rivas DO PCP: Dr. Lexi Barnes MD Status:ADM IN Location: [facility] RB359-5 [facility] - General General Date of Admission: [...] allergy to lisinopril (angioedema), who presents to [facility] ER complaining of shortness of breath and [...] is expected to extend beyond 2 midnights. 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 [employer] Smoking Status: Never smoker Electronic Cigarette Use: [...] % (Auto) 64.3, Lymph % (Auto) 19.5, [place] % (Auto) 7.6, Eos % (Auto) 7.1 [...] ABG Data ABG results: RUN DATE: 07/06/24 [facility], DEPARTMENT OF LABORATORIES PAGE 1 RUN TIME: 555 Specimen Inquiry [address], [place], [place], [id number] PATIENT: DANNY BEDOYA [facility] U #: [id number] : 1980 AGE/SX: 44/M FACILITY: [facility] ROOM: [facility] RE07/06/[address]: Anita Mccarthy STATUS:ADM IN ED: 1 DIS: ~ SPEC #: [id number] MARIVEL: 07/06/24 STATUS: COMP REQ #: [id number] RECD: 07/06/[address]: Dr. Lisa Jain, [...] 55 minutes. Charges/Coding Visit Charges Inpatient E&M: 44029 Init Hosp L2 07/06/24 0556 Cosigner Signature (if applicable): CC: Dr. Lexi Barnes MD; Dr. Lisa Jain DO~ Signed [facility]03-11-2025 Discharge [facility] Note Date/Time July 06, 2024 3:[address] [facility] Medical Records Department [address] [facility] [place] [address] Emergency Department Summary 07/05/24 MR#: [id number] Acct: [id number] Name: DANNY BEDOYA Rep #:[id number] : 1980 44 From: Jam Jiang DO PCP: Dr. Lexi Barnes MD Status:ADM IN Location: [facility]3 XI009-8 HPI History of Present Illness Chief Complaint: [...] attacks and therefore comes in for evaluation. [facility] Medical History Cirrhosis Asthma Alcohol abuse [...] none current occupational status: employed current occupation: [employer] Smoking Status: Never smoker Electronic Cigarette Use: [...] % (Auto) 64.3 Lymph % (Auto) 19.5 [place] % (Auto) 7.6 Eos % (Auto) 7.1 [...] IMPRESSION: No acute cardiopulmonary process. Reading Location: [facility] Chest x-ray as interpreted by the emergency medicine physician reveals no acute infiltrate pneumothorax or pleural effusion Discharge Plan Dx/Rx/DC Orders Clinical Impression: Asthma exacerbation, Essential hypertension, History of alcohol abuse, Liver transplant recipient Disposition Disposition: Acute Care Hospital [facility] What to do if you have Problems For any increased pain, shortness of breath, bleeding, nausea or vomiting, chestpain, or any unexpected problems, contact your Primary Care Provider. Call [facility] ([phone]) or report to the closest Emergency Room. Call 911 if necessary. 07/06/24312 <Electronically signed by Jam Jiang DO> Cosigner Signature (if applicable): CC: Dr. Lexi Barnes MD ~ Signed [facility] Work Phone: 1(966) 849-823203-11-2025 Evaluation note* Diagnosis Onset Date Resolution Status Admit Date Asthma exacerbation acute July 06, 2024 2:36am Essential hypertension acute [facility] 2024 2:36am History of alcohol abuse acute July 06, 2024 2:36am Respiratory insufficiency acute July 06, 2024 2:36am Cirrhosis inactive July 06 2:36am History of liver transplant inactive July 06, 2024 2:36am [facility] Work Phone: 1(867) 245-386803-11-2025 Evaluation note* Diagnosis Onset Date Resolution Status Admit Date Asthma exacerbation acute July 06, 2024 2:36am Essential hypertension acute [facility] 2024 2:36am History of alcohol abuse acute July 06, 2024 2:36am Respiratory insufficiency acute July 06, 2024 2:36am Cirrhosis inactive July 06 2:36am History of liver transplant inactive July 06, 2024 2:36am Acute bacterial bronchitis acute July 22, 2024 3:40am Acute hypoxic respiratory failure acute July 22, 2024 3:40am Asthma exacerbation acute July 22, 2024 3:40am Essential hypertension acute [facility] 2024 3:40am History of alcohol abuse acute July 22, 2024 3:40am Hypoxia acute July 22 3:40am Liver transplant recipient acute July 22, 2024 3:40am [facility] Work Phone: 1([phone]) 956-155703-11-2025 Evaluation note* Diagnosis Onset Date Resolution Status Admit Date Asthma exacerbation acute July 06, 2024 2:36am Essential hypertension acute [facility] 2024 2:36am History of alcohol abuse acute July 06, 2024 2:36am Respiratory insufficiency acute July 06, 2024 2:36am Cirrhosis inactive July 06 2:36am History of liver transplant inactive July 06, 2024 2:36am Acute bacterial bronchitis acute July 22, 2024 3:40am Acute hypoxic respiratory failure ac flori July 22, 2024 3:40am Asthma exacerbation acute July 22, 2024 3:40am Essential hypertension acute [facility] 2024 3:40am History of alcohol abuse acute July 22, 2024 3:40am Hypophosphatemia acute July 222024 3:40am Hypoxia acute July 22 3:40am Liver transplant recipient acute July 22, 2024 3:40am [facility] Work Phone: 1([phone]) 756-191103-11-2025 Discharge summary [facility] Medical Records Department [address] [place] [address] Emergency Department Summary 07/05/24 MR#: [id number] Acct: [id number] Name: DANNY BEDOYA Rep #:[id number] : 1980 44 From: Jam Jiang DO PCP: Dr. Lexi Barnes MD Status:ADM IN Location: [place] [id number] HPI History of Present Illness Chief Complaint: [...] and therefore comes in for evalu ation. 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 Reading Location: [facility] Chest x-ray as interpreted by the emergency medicine physician reveals no acute infiltrate pneumothorax or pleural effusion Discharge Plan Dx/Rx/DC Orders Clinical Impression: Asthma exacerbation, Essential hypertension, History of alcohol abuse, Liver transplant recipient Disposition Disposition: Acute Care [facility] What to do if you have Problems For any increased pain, shortness of breath, bleeding, nausea or vomiting, chestpain, or any unexpected problems, contact your Primary Care Provider. Call [facility] ([phone]) or report tothe closest Emergency Room. Call 911 if necessary. 07/06/24312 Cosigner Signature (if applicable): CC: Dr. Lexi Barnes MD ~ Signed [facility]03-10-2025 Radiology Diagnostic study note [facility] Imaging Services [address] [place] [address] Chest PA and Lateral MR#: [id number] Acct: [id number] Name: DANNY BEDOYA Rep #: [id number] : 1980 M 44 From: Shannon Chawla MD PCP: Dr. Lexi Barnes MD Status: REG ER Study:Chest PA and Lateral Date of Exam: 07/05/24 Exam# [id number] Ordering Dr: Erin Jiang DO PROCEDURE: CHEST PA AND LATERAL REASON FOR EXAM: DYSPNEA TECHNIQUE: Frontal and lateral views of the chest. COMPARISON: 06/11/2024 FINDINGS: The cardiothymic contour is normal. The lungs are clear. The bones are unremarkable. RAD/Chest PA and Lateral IMPRESSION: No acute cardiopulmonary process. Reading Location: [facility] CC: Dr. Lexi Barnes MD; Jam Jiang DO ~ Insulation Board Coater Operator: Signed [facility]03-10-2025 Discharge summary Author Jam Jiang [facility] Note Date/Time July 06, 2024 3:[address] [facility] Medical Records Department [address] [place] [address] Emergency Department Summary 07/05/24 MR#: [id number] Acct: [id number] Name: DANNY BEDOYA Rep #:[id number] : 1980 44 From: Jam Jiang DO PCP: Dr. Lexi Barnes MD Status:ADM IN Location: [place] [address] HPI History of Present Illness Chief Complaint: [...] attacks and therefore comes in for evaluation. 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 Reading Location: [facility] Chest x-ray as interpreted by the emergency medicine physician reveals no acute infiltrate pneumothorax or pleural effusion Discharge Plan Dx/Rx/DC Orders Clinical Impression: Asthma exacerbation, Essential hypertension, History of alcohol abuse, Liver transplant recipient Disposition Disposition: Acute Care Hospital [facility] What to do if you have Problems For any increased pain, shortness of breath, bleeding, nausea or vomiting, chestpain, or any unexpected problems, contact your Primary Care Provider. Call [facility] ([phone]) or report to the closest Emergency Room. Call 911 if necessary. 07/06/243 <Electronically signed by Jam Jiang DO> Cosigner Signature (if applicable): CC: Dr. Lexi Barnes MD ~ Signed [facility] Work Phone: 1(529) 852-738210-22-2024 NoteHNO ID: [id number] Author: DANY PAINTER MD Service: ? Author [...] entered by the nurse and reviewed by nd Nursing Notes: Lona Partida RN 02/16/2024 4:06 [...] oriented to time, quita (more content not included)...[facility]10-22-2024 History of Present illness Narrative* Dany [...] interest. I will refer him up to [facility] Diagnoses: (K40.20) Non-recurrent bilateral inguinal hernia without obstruction or gangrene (primary encounter diagnosis) Dany Painter III, MD [facility] Nurse Note* Lona Partida RN [...] N/A Last Colonoscopy: none Lona Partida RN [facility]10-21-2024 Nurse Note* Lona Partida RN [...] none Lona Partida RN [facility] Hospital Discharge instructions Patient Education [...] Lips or fingernails turning licea or blue 5232-4710 [employer]. [address] [place] [address]. All rights reserved. This information is not intended as a substitute for professional medical care. Always follow yourhealthcare professional's instructions. Follow Up Care 10/25/2023 20:27:18 With:Go to emergency room if symptoms worsen Address:Unknown When:2-4 days With:Call Physician Referral Address:Unknown When:2-4 days [facility] 06-29-2024 Note Discharge Instructions Thank you for allowing [facility] to assist you with your healthcare needs. [...] Lips or fingernails turning licea or blue 1619-7500 [employer] [address] [place] [address]. All rights reserved. This information is not intended as a substitute for professional medical care. Always follow yourhealthcare professional's instructions. Additional Information VACCINATE! IT SAVES LIVES! Members of the community who have not yet received the COVID-19 vaccine and would like to receive it can visit one of [facility] vaccine clinics. There are many vaccine clinic locations within the [facility]. For locations and available times, please visit www.gettheshot.coronavirus.[place].gov/. It is important to note that some COVID mobile vaccine clinics are held outdoors and may be canceled in rainy or stormy conditions. To learn more about pediatric vaccinations (ages 5-11), we invite you to visit the [facility] webpage. https://www.[email or web address].org/pages/2520-Rckve-Apfqrvfiakp-Vbskaofbix-Sxula-Sgh stions.htmlTo learn more about the COVID-19 vaccine, we invite you to visit the CDC website for a list of frequently asked questions. https://www.cdc.gov/coronavirus/2019-ncov/vaccines/faq.html [facility] Patient Portal Access Instructions: Stay connected with your healthcare team and access your personal medical information anytime with the [employer] Patient Portal. If you would like a full copy of your medical records please contact the [facility] Medical Records Department Friday through Friday between 8a.m. and 4:30p.m. Please follow the directions below to access the portal: 1.Access the email account you provided upon registration to the hospital.2.Look for an invitation email from [facility].3.Open the email and access the invitation link: Accept Invitation to [facility]4.Fill in the required newsome to create your account. Sign into www.[employer] with your username and password that you [...] you will allow to register on the [facility] Patient Portal for access to your information. You can also access the [facility] Patient Portal on the [employer] citlali. Simply click on "Health Records" under "HealthData" and then click on the [employer] logo. HOW TO SAFELY DISPOSE OF PRESCRIPTION [...] Call your local pharmacy or go to [email or web address] to find one close to you.3.Make use of household items: Use cat litter or old coffee grounds to dispose medications if other options arenot available. Mix your drugs with these household products, seal them in an airtight container andthrow it into the garbage. Call [facility]: [phone] to be sure your drugs can be [...] aware that I should contact my doctor. Patient/Athletics Director Signature: Date/Time: Relationship to Patient: Witness Name/Signature: Date/Time: [facility]06-29-2024 NoteSinus rhythm Probable left atrial enlargement Electronic Signature: YVONNE MACE 10/25/2023 22:22:35[facility] 06-29-2024 Note ORIGINAL EXAMINATION: ONE XRAY VIEW [...] Date: 10/25/2023 10:36:24 PM Ordering Provider: [facility] Discharge summary Author Justin Pinto [facility] April 07, 2023 4:08pm Note Date/Time April 07, 2023 4:08pm [facility] Medical Records Department [address] [place] [address] Emergency Department Summary 04/07/23 MR#: [id number] Acct: [id number] Name: DANNY BEDOYA Rep #:[id number] : [...] he is not getting a distended abdomen. 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 I will get him referred to [facility] surgeon but even this individual may send him to [facility]. He can also go back to [place] where his transplant was done a couple [...] your Primary Care Provider. Call [facility] ([phone]) or report to the closest Emergency Room. Call 911 if necessary. 04/07/23 1608 <Electronically signed by Justin Pinto MD> Cosigner Signature (if applicable): CC: Dr. Lexi Barnes MD ~ Signed [facility] Work Phone: 1(639) 836-776101-11-2022 NoteHospitalist Discharge Summary Danny Bedoya : 1980 [...] Clinically doing ok Discharge planning, home with [facility] Condition stable. ADULT DIET; Regular; Low [...] CHOL No results found for: PHART, PO2ART, GZT9VRQ Recent Labs 05/06/21 0514 05/07/21 0453 05/08/21 [...] Radiology ACCESSION EXAM DATE/TIME PROCEDURE ORDERING PROVIDER [id number] 05/01/2021 19:32 EST CR Chest Portable [id number] -ALESSIO NOLASCO CPT code 02574 Reason For Exam (CR Chest Portable) dyspnea [...] BEDOYA Ultrasound ACCESSION (more content not included)... [facility] SystemConsult note Author Crow Tineo [facility] Note Date/Time July 06, 2024 3:3 6pm [facility] Medical Records Department [address] [place] [address] Counseling Note - Pharmacy 07/06/24 1534 MR#: [id number] Acct: [id number] Name: DANNY BEDOYA Rep #:[id number] : 1980 44 From: Corw Tineo PCP: Dr. Lexi Barnes MD Status:ADM IN Y Location: [place]3 HS848-2 Pharmacy [facility] has performed discharge medication reconciliation [...] mg) PO DAILY #10 tabs 07/06/24 07/06/24 6606 <Electronically signed by Crow wilkinson> Date _ Crow Rogers Signature (if applicable): Date CC: ~ Signed [facility] Work Phone: Discharge summary Author Andrea Daly [facility] Note Date/Time July 23, 2024 12: 55pm [facility] Medical Records Department [facility] [place] [address] Discharge Summary 07/23/24 1230 MR#: [id number] Acct: [id number] Name: DANNY BEDOYA Rep #:[id number] : 1980 44 From: Andrea hickman MD PCP: Dr. Lexi Barnes MD Status:ADM IN Location: [address] Date of Admission: 07/22/24 Primary Care [...] complicated by Respiratory Insufficiency who re-presents to [facility] ER complaining of SOB. Mr. Bedoya reports his symptoms began approximately one day prior to admission with the sudden-onset of SOB and wheezing that progressively worsened throughout the day. 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 Lexi Barnes MD; Dr. Andrea Daly MD~ Signed [facility] Work Phone: Evaluation + Plan note No data available for this section [facility] Evaluation note* Diagnosis Onset Date Resolution Status Essential hypertension acute Establishing care with new doctor, encounter for noneactive S/P liver transplant noneact sandra Moderate asthma without complication noneactive [facility] Work Phone: Evaluation noteNo assessment information available [facility] Work Phone: Evaluation note* Diagnosis Non-recurrent bilateral inguinal hernia without obstruction or gangrene- Primary [facility] Diagnosis Onset Date Resolution Status Admit Date Asthma exacerbation acute July 06, 2024 2:36am Essential hypertension acute [facility] 2024 2:36am History of alcohol abuse acute July 06, 2024 2:36am Respiratory insufficiency acute July 06, 2024 2:36am Cirrhosis inactive July 06 2:36am History of liver transplant inactive July 06, 2024 2:36am [facility] Work Phone: Reason for referral (narrative)No reason for referral information availableWOhioHealth Shelby [facility] Work Phone: Summary Purpose Family History No Family History Records Found Relationship Condition Age at Onset Recorded Date/T tye father Alcoholism Unknown Asthma Unknown mother Asthma Unknown grandmother Malignant neoplasm Unknown Advance Directives No Advanced Directives Records Found Advance Directive Response Recorded Date/ Time Advance Directives No December 22, 2014 9:36pm Living Will No April 17, 2 021 9:20am Power of Patient Information Coordinator No April 17, 2021 9:20am Advance Directive Response Recorded Date/ Time Advance Directives No December 22, 2014 10:36pm Living Will No April 17, 2 021 10:20am Power of Patient Information Coordinator No April 17, 2021 10:20am Advance Directive Response Recorded Date/ Time Advance Directives No December 22, 2014 9:36pm Living Will No April 07, 2 023 3:58pm Power of Patient Information Coordinator No April 07, 2023 3:58pm Advance Directive Response Recorded Date/ Time Living Will No April 07, 2 023 4:58pm Power of Patient Information Coordinator No April 07, 2023 4:58pm Living Will No June 11, 2 025 5:22pm Power of Patient Information Coordinator No June 11, 2024 5:22pm Living Will No July 05, 2024 10:12pm Power of Patient Information Coordinator No July 05 10:12pm Advance Directives No December 22, 2014 10:36pm Advance Directive Response Recorded Date/ Time Living Will No April 07, 2 023 4:58pm Power of Patient Information Coordinator No April 07, 2023 4:58pm Living Will No June 11, 2 025 5:22pm Power of Patient Information Coordinator No June 11, 2024 5:22pm Living Will No July 06, 2024 3:55am Power of Patient Information Coordinator No July 06 3:55am Advance Directives No December 22, 2014 10:36pm Advance Directive Response Recorded Date/ Time Living Will No April 07, 2 023 4:58pm Do you have a Healthcare Power of Patient Information Coordinator? No April 07, 2023 4:58pm Living Will No June 11, 2 025 5:22pm Do you have a Healthcare Power of Patient Information Coordinator? No June 11, 2024 5:22pm Living Will No July 22, 2024 12:54am Do you have a Healthcare Power of Patient Information Coordinator? No July 22, 2024 12:54am Living Will No July 06, 2024 3:55am Do you have a Healthcare Power of Patient Information Coordinator? No July 06, 2024 3:55am Advance Directives No December 22, 2014 10:36pm Advance Directive Response Recorded Date/ Time Living Will No April 07, 2 023 4:58pm Do you have a Healthcare Power of Patient Information Coordinator? No April 07, 2023 4:58pm Living Will No June 11, 2 025 5:22pm Do you have a Healthcare Power of Patient Information Coordinator? No June 11, 2024 5:22pm Living Will No July 22, 2024 4:14am Do you have a Healthcare Power of Patient Information Coordinator? No July 22, 2024 4:14am Living Will No July 06, 2024 3:55am Do you have a Healthcare Power of Patient Information Coordinator? No July 06, 2024 3:55am Advance Directives No December 22, 2014 10:36pm Chief Complaint and Reason for Visit Chief Complaint ENTERTAINMENT LAWYER, EST. 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 CARE, PT NE EDS NPP S/O [...] Procedures CONSULT TO GENERAL SURGERY OFFICE/OUTPATIENT [facility] 60 MINUTES Dany Paintre MD [address] [place] [address] Norman Mcwilliams MD [address] [place] [address] Referral ID Status Reason Start Date Expiration Date Visits Requested Visits Authorized [id number] Pending Review PCP Requested Referral 02/15/2025 1 1 Additional Source Comments (unrecognized sect ion and content) No Status Records FoundNo Status Records FoundNo Status Records FoundNo Status Records FoundNo Status Records Found INFORMATION SOURCE (unrecogn ized section and content) DATE CREATED AUTHOR 07/26/2021 [facility] DATE CREATED AUTHOR AUTHOR'S ORGANIZ ATION 10/28/2023 [facility] ([place]) DATE CREATED AUTHOR AUTHOR'S ORGANIZ ATION 02/18/2024 [facility] DATE CREATED AUTHOR AUTHOR'S ORGANIZ ATION 05/13/2024 [facility] nter DATE CREATED AUTHOR AUTHOR'S ORGANIZ ATION 07/31/2024 [facility] Care Teams (unrecognized sec [...] or prosecute any alcohol or drug abuse patient.[facility] Reason for Visit (unrecogniz ed section and content) Reason Comments Consult hernia Specialty Diagnoses / Procedures Referred By Margaret t Referred To Contact General Surgery / GENERAL SURGERY Diagnoses Hernia Groin Hernia Procedures OFFICE/OUTPATIENT NEW MODERATE MDM 45 MINUTES NEW DDI PATIENT Self Dany Painter MD [address] [place] [address] Referral ID Status Reason Start Date Expiration Date Visits Requested Visits Authorized [id number] Waiting for Response Financial Clearance Required - OON Payor OON Notification Letter Patient Cleared - Admin/Store Detective/ Director advise to proceed or did not [...] BE BASED ON THE PRIMARY CLINICAL RECORDS. iCopyright [facility]. provides no warranty or guarantee of the accuracy or completeness of information in this document.
[2024-10-08] MEDS: 0.9% Saline Lock 10 ML Syringe IV ×2 (06:29→20:48)
[2024-10-08 06:55] LABS: Absolute Lymphocyte Count 0.28 X10^3/uL (0.83-4.51); Absolute Neutrophil Count 5.9 X10^3/uL (2.0-7.7); Basophil# 0.01 X10^3/uL; Basophil% 0.2 % (0-1); Eosinophil# 0.04 X10^3/uL; Eosinophils% 0.6 % (0-5); Hematocrit 41.2 % (40-54); Hemoglobin 14.4 g/dL (13.0-16.5); Lymphocyte # 0.28 X10^3/ul (0.83-4.51); Lymphocyte % 4.4 % (19-41); Mean Corpuscular Hgb 29.9 pg (27.0-32.0); Mean Corpuscular Volume 85.5 fL (80-94); Mean Platelet Vol. 9.5 fl (6.2-12.0); Monocyte# 0.11 X10^3/uL; Monocyte% 1.7 % (0-10); NRBC Flagged by Analyzer 0 % (0-5); Neutrophil # 5.91 X10^3/uL (2.7-7.7); Neutrophil % 92.8 % (47-70); POSITIVE DIFFERENTIAL YES; Platelet Count 175 K/mm3 (150-450); RBC Distribution Width CV 12.8 % (11.6-14.6); RBC Distribution Width SD 39.5 fl (35.1-43.9); Red Blood Count 4.82 M/mm3 (4.6-6.2); White Blood Count 6.4 K/mm3 (4.4-11.0)
[2024-10-08 07:23] LABS: ALB/GLOB Ratio 1.8 RATIO (0.9-2.4); AST(SGOT) 22 U/L (<=37); Alanine Aminotransfer ALT/SGPT 24 U/L (<=46); Albumin, Serum 4.5 g/dL (3.5-5.0); Alkaline Phosphatase 69 U/L (40-129); Anion Gap 14 (5-15); BUN 21 mg/dL (4-19); Calcium,Total 9.4 mg/dL (7.6-11.0); Carbon Dioxide 18.8 mmol/L (21.0-32.0); Chloride 106 mmol/L (98-108); Creatinine, Serum 1.07 mg/dL (0.70-1.20); EST Glomerular Filtration Rate 88 (>60); Estimated Creatinine Clearance 77.58 ml/min (50-250); Globulin 2.5 g/dL (2.2-4.2); Glucose 142 mg/dL (70-99); Phosphorus 2.2 mg/dL (2.7-4.5); Potassium 3.6 mmol/L (3.3-5.1); Sodium Level 139 mmol/L (133-145); Total Bilirubin 1.03 mg/dL (0.00-1.30)
[2024-10-08 07:56] LABS: International Normalized Ratio 1.1; Prothrombin Time (Protime)PT. 14.4 SECONDS (11.7-14.9)
[2024-10-08] MEDS: Mycophenolate Mofetil 250 MG Capsule 500 MG PO ×2 (09:27→20:44)
[2024-10-08] MEDS: Tacrolimus Anhydrous 1 MG Capsule 2 MG PO ×2 (09:28→20:43)
--- NOTE | 2024-10-08 12:10 | PCM.HOSP.N ---
Hospitalist Note Patient admitted early this morning for acute asthma exacerbation. I saw the patient at bedside later this morning, significant other present. Patient was breathing comfortably on 2 L nasal cannula at rest. Noted that he felt markedly improved currently compared to overnight. On exam he had only mildly diminished breath sounds and no wheezing noted. Will continue IV steroids and scheduled breathing treatments for today. Patient remains stable tomorrow, should be okay for discharge home. Full progress note to follow tomorrow.
[2024-10-08] MEDS: Montelukast 10 MG Tablet PO (18:08)
[2024-10-08] MEDS: Acetaminophen 325 MG Tablet 650 MG PO (19:23)
[2024-10-08] MEDS: Methylprednisolone Sod Succ 40 MG/ML VIAL IV (20:48)
[2024-10-09] MEDS: Methylprednisolone Sod Succ 40 MG/ML VIAL IV (04:58)
[2024-10-09] MEDS: 0.9% Saline Lock 10 ML Syringe IV (04:58)
[2024-10-09 05:01] VITALS: BP 120/78; PULSE 85; RESP 16; TEMP 36.6; O2SAT 97
[2024-10-09] MEDS: Ipratropium/Albuterol Sulfate 3 ML AMPUL.NEB INHALATION (07:08)
[2024-10-09 07:09] VITALS: PULSE 77; RESP 16; O2SAT 97
--- NOTE | 2024-10-09 08:58 | DCINST_ITS ---
Discharge Instructions Diet Discharge Diet: No restrictions DC O2, CPAP, BIPAP needs Home O2 Discharge instructions: No Dressing / Incision Discharge Activity: No Restrictions Follow Up Care Test Results: Test results from this visit will be discussed in further detail at your follow- up appointment, if applicable. Discharge Plan Admission Admit Date/Time: 10/08/24 15:20 Primary Reason for Your Visit: shortness of breath Attending Provider: Meet Puckett Primary Care Provider: Lexi Barnes Consulting Providers: Uma Smith Discharge Orders/Prescriptions Prescriptions: New montelukast 10 mg Tablet 10 mg PO DINNER 30 Days Qty: 30 2RF prednisone 20 mg tablet 40 mg PO DAILY 4 Days Qty: 8 0RF Continued mycophenolate mofetil [CellCept] 500 mg tablet 500 mg PO BID fluticasone propion-salmeterol 1 EACH blister with device 1 ea IH DAILY albuterol sulfate 2.5 mg /3 mL (0.083 %) solution for nebulization 2.5 mg inhalation Q4H PRN Qty: 25 0RF Rx Instructions: Use q4 hours and PRN for wheezing tacrolimus 1 mg capsule 2 mg PO BID fluticasone propion-salmeterol [Advair Diskus] 500-50 mcg/dose blister with device 1 inh inhalation BID Referrals / Follow Up: Lexi Barnes MD [Primary Care Provider] - Disposition Disposition (needs filled in before D/C Order can be placed): Home, Self Care
--- NOTE | 2024-10-09 08:58 | PCM.DC.SUM ---
Providers Date of Admission: 10/08/24 Date of Discharge: 10/09/24 Primary Care Physician: Dr. 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: Status: Acute Code(s): R00.0 - Tachycardia, unspecified (3) Hypoxemia: Status: Acute Code(s): R09.02 - Hypoxemia Medications at Discharge Home Medications fluticasone 100 mcg-salmeterol 50 mcg/dose blistr powdr for inhalation 1 ea IH DAILY breathing 01/04/19 mycophenolate mofetil 500 mg tablet (CellCept) 500 mg PO BID liver transplant 05/20/22 albuterol sulfate 2.5 mg/3 mL (0.083 %) solution for nebulization 2.5 mg (3 mL) inhalation Q4H PRN #25 vials 02/03/24 tacrolimus 1 mg capsule, immediate-release 2 mg PO BID liver transplant 02/03/24 fluticasone 500 mcg-salmeterol 50 mcg/dose blistr powdr for inhalation (Advair Diskus) 1 inh inhalation BID breathing 10/08/24 montelukast 10 mg tablet 10 mg PO DINNER 30 days #30 tabs 10/09/24 prednisone 20 mg tablet 40 mg (2 x 20 mg) PO DAILY 4 days #8 tabs 10/09/24 Hospital Course Operations None Procedures EKG and - (Chest x-ray) Summary of Care Provided Minutes Spent on Discharge: 35 Hospital Course: Patient is a 44-year-old male who presented [facility] ED on 10/08/2024 with worsening shortness of breath. Short hospital course as noted below. Patient discharged home in stable condition on 10/09. 1. Acute asthma exacerbation with hypoxia, improving; history of asthma with seasonal allergies – History of asthma with previous exacerbations. Last exacerbation was about 3 months ago. Presented with worsening shortness of breath and required 2 L nasal cannula on admit. Infectious workup negative. Had good improvement in symptoms during hospitalization on IV steroids and scheduled DuoNebs. Will discharge on prednisone 40 mg for 4 more days to complete 5-day steroid burst. Also started montelukast for him while inpatient and will continue this on discharge. Continue other home inhalers. Did not require oxygen on discharge. Discharged in stable condition on 10/09. 2. History of liver cirrhosis secondary to alcohol abuse s/p liver transplant – S/p liver transplant 3 years ago. Patient reports doing well since then, no current issues. Continue home CellCept and tacrolimus. *Notably patient was admitted under inpatient status but improved more quickly than anticipated and was able to be discharged home on hospital day 2. Total clinical time spent by myself addressing the patient's medical issues, reviewing all the data, and collaborating with patient's care team: 35 minutes. Physical Exam Const alert, oriented x3, no apparent distress and average body habitus Constitutional Narrative: Pleasant middle-age male, sitting up comfortably at edge of the bed, conversing normally, in no acute distress. General Appearance: cooperative and comfortable HEENT normocephalic, head/scalp atraumatic, hearing grossly normal bilaterally, nasal mucous membranes and turbinates normal and moist oral mucous membranes Eyes PERRL, EOMs intact bilaterally and conjunctivae normal Neck full ROM Chest inspection of chest normal Resp normal respiratory effort and no use of accessory muscles Resp Narrative: Breathing comfortably in room air at rest. Good air movement throughout with no wheezing or crackles noted today. Improved from admission. Cardio regular rate, regular rhythm, no murmurs and peripheral pulses 2+ throughout GI normal to inspection, nondistended, normoactive bowel sounds, soft to palpation, non-tender and non-distended Back/Spine normal ROM Extremity normal to inspection, full ROM and no pedal edema Skin no rashes or lesions noted Psych mental status grossly normal Weight / BMI Weight Weight: 70.3 kg Body Mass Index (BMI) 27.4 ABG / Lab / Microbiology Data 10/08/24 06:12 10/08/24 06:12 Microbiology: Microbiology 10/08/24 05:30 Mucosa - Nasopharyngeal Respiratory Panel (PCR) - Final 10/08/24 04:33 Nasal Secretion SARS-CoV-2 Antigen (Rapid) - Final D/C Instructions DC O2, CPAP, BIPAP Needs Home O2 Discharge instructions: No Meaningful Use Info Meaningful Use Meaningful Use Diagnoses (Choose all that apply): None applicable Ischemic Stroke Statin Dosing Therapy Reference: STATIN DOSE THERAPY REFERENCE: * Patients > 75 years receive moderate or high dose statin therapy. * Patients 75 years or YOUNGER should receive HIGH intensity statin dose unless contraindicated. You will be required to document reason for non-treatment if statin daily dose does not meet guidelines. HIGH DOSE STATIN THERAPY DAILY Atorvastatin > than or = to 40 mg Rosuvastatin > than or = to 20 mg Amlodipine + Atorvastatin > than or = to 2.5/40 mg Ezetimibe + Simvastatin 10/80 mg Simvastatin 80mg Discharge Plan Admission Admit Date/Time: 10/08/24 15:20 Primary Reason for Your Visit: shortness of breath Attending Provider: Meet Puckett Primary Care Provider: Lexi Barnes Consulting Providers: Uma Smith Discharge Orders/Prescriptions Prescriptions: New montelukast 10 mg Tablet 10 mg PO DINNER 30 Days Qty: 30 2RF prednisone 20 mg tablet 40 mg PO DAILY 4 Days Qty: 8 0RF Continued mycophenolate mofetil [CellCept] 500 mg tablet 500 mg PO BID fluticasone propion-salmeterol 1 EACH blister with device 1 ea IH DAILY albuterol sulfate 2.5 mg /3 mL (0.083 %) solution for nebulization 2.5 mg inhalation Q4H PRN Qty: 25 0RF Rx Instructions: Use q4 hours and PRN for wheezing tacrolimus 1 mg capsule 2 mg PO BID fluticasone propion-salmeterol [Advair Diskus] 500-50 mcg/dose blister with device 1 inh inhalation BID Referrals / Follow Up: Lexi Barnes MD [Primary Care Provider] - Disposition Disposition (needs filled in before D/C Order can be placed): Home, Self Care Charges/Coding Visit Charges Inpatient E&M: 68931 Disch Hosp >30min
[2024-10-09] MEDS: Mycophenolate Mofetil 250 MG Capsule 500 MG PO (09:27)
[2024-10-09] MEDS: Tacrolimus Anhydrous 1 MG Capsule 2 MG PO (09:27)
[2024-10-09 09:30] VITALS: BP 132/92; PULSE 88; RESP 16; TEMP 37.1; O2SAT 95
--- NOTE | 2024-10-09 09:51 | NURSING ---
pt given discharge instructions including medications, follow up appointments and all other discharge instructions. pt denies any further needs at this time. Iv removed with catheter intact, clean dry dressing applied, pt tolerated well. pt getting dressed at this time and will be wheeled out to waiting vehicle.
== END 2024-10-09 10:01 | disposition home or self-care (01) | DRG 202 ==
LOC: ED 04:15 → MS2 04:44
PROVIDERS: Admitting Provider Internal Medicine; Emergency Provider Emergency Medicine; PCP Internal Medicine; Referring Provider Hospitalist; Visit Provider Hospitalist
DX: J45.901 Unspecified asthma with (acute) exacerbation (principal); Z94.4 Liver transplant status; I10 Essential (primary) hypertension; Z82.5 Family history of asthma and other chronic lower respiratory diseases; R00.0 Tachycardia, unspecified; R09.02 Hypoxemia; Z79.899 Other long term (current) drug therapy; Z79.51 Long term (current) use of inhaled steroids
CPT/HCPCS: 36415; 36600; 71046; 80048; 80053; 82803; 84100; 85025; 85610; 87633; 87811; 93005; 94640; 94668; 96374; 96375; 96376; 99221; 99252; 99285; A4216; G0378; G0463

== ENCOUNTER 2024-12-28 22:16 | Emergency (ER) | payer OTHER, SELFPAY ==
[2024-12-28 22:18] VITALS: BP 144/79; PULSE 112; RESP 21; TEMP 36.8; O2SAT 88; BMI 28.5
[2024-12-28 22:24] VITALS: BP 144/97; PULSE 109; RESP 20; O2SAT 91
[2024-12-28 22:26] VITALS: O2SAT 91
[2024-12-28] MEDS: Albuterol 2.5 MG/3 ML VIAL.NEB. INHALATION (22:33)
[2024-12-28 22:54] VITALS: PULSE 109; RESP 16
[2024-12-28 23:26] VITALS: PULSE 101; RESP 16
--- NOTE | 2024-12-28 23:53 | EX.ED.DYSGE1 ---
HPI History of Present Illness Chief Complaint: Asthma Informant: patient and spouse/S.O. Narrative Narrative: Patient is a 44-year-old male with past medical history of hypertension and cirrhosis as well as severe asthma. He states he was admitted roughly 2 to 3 months ago secondary to an asthma exacerbation. He does state that he was intubated however this was multiple years ago when he was a teenager. He states that his significant other has been sick with mild congestion and cough and he has had similar symptoms for the past week or so. He states he felt like he was getting better but had run out of his albuterol nebulizer treatment. He states this evening when he began to feel short of breath he tried to obtain the medication but it was taking too long and with concern that his exacerbation would worsen he presents to the ER for evaluation [facility] Medical History Essential hypertension Cirrhosis Asthma Alcohol abuse Angioedema Home Medications ?Medication ?Instructions ?Recorded ?Last Taken ?Type mycophenolate mofetil 500 mg 500 mg PO BID liver transplant 05/20/22 10/07/24 20:00 History tablet (CellCept) albuterol sulfate 2.5 mg/3 mL 2.5 mg (3 mL) inhalation Q4H PRN 02/03/24 10/08/24 01:30 Rx (0.083 %) solution for nebulization #25 vials tacrolimus 1 mg capsule, 2 mg PO BID liver transplant 02/03/24 10/07/24 20:00 History immediate-release fluticasone 500 mcg-salmeterol 50 1 inh inhalation BID breathing 10/08/24 10/07/24 20:00 History mcg/dose blistr powdr for inhalation (Advair Diskus) montelukast 10 mg tablet 10 mg PO DINNER 30 days #30 tabs 10/09/24 Unknown Rx ipratropium 0.5 mg-albuterol 3 mg 3 ml inhalation Q6H PRN shortness 12/28/24 Unknown Rx (2.5 mg base)/3 mL nebulization of breath or wheezing #180 mL soln prednisone 10 mg tablet 10 mg PO UD #33 tabs 12/28/24 Unknown Rx Allergy/AdvReac Type Severity Reaction Status Date / Time lisinopril Allergy Angioedema Verified 09/02/25 22:22 Family History Father Alcoholism Asthma Mother Asthma Grandmother Cancer brain Surgical History Hx of liver transplant Social History household members: none current occupational status: employed 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 [employer] Smoking Status: Never smoker Electronic Cigarette Use: not used alcohol intake: former details: former heavy drinker, 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 substance use type: marijuana what type of physical activity do you participate in: none do you feel safe at home: Yes ROS ROS ED Constitutional Constitutional ED: Denies chills or fever(s) ENT ENT ED: Reports rhinorrhea; Denies sore throat Cardiovascular Cardiovascular: Denies chest pain Respiratory/Chest Respiratory/Chest: Reports cough and dyspnea Gastrointestinal Gastrointestinal: Denies abdominal pain, diarrhea, nausea or vomiting Musculoskeletal Musculoskeletal: Denies myalgias Integumentary Denies rash Neurologic Neurologic: Denies headache(s) Allergic/Immunologic Allergic/Immunologic ED: Denies mouth swelling or tongue swelling EXAM Physical Exam Const Vital Signs: 12/28/24 22:18 12/28/24 22:24 12/28/24 22:26 Temperature 98.2 F Temperature Source Oral Pulse Rate 112 H 109 H Respiratory Rate 21 H 20 H Respiratory Effort Short of Breath Respiratory Depth Normal Respiratory Pattern Normal Blood Pressure 144/79 H 144/97 H Blood Pressure Mean 100 112 Pulse Ox 88 91 Oxygen Delivery Method Room Air Nasal Cannula Nasal Cannula Oxygen Flow Rate (L/min) 2 2 12/28/24 22:54 12/28/24 23:26 12/29/24 00:02 Temperature 97.2 F L Temperature Source Pulse Rate 109 H 101 H 74 Respiratory Rate 16 16 20 H Respiratory Effort Respiratory Depth Respiratory Pattern Normal Normal Blood Pressure 104/80 Blood Pressure Mean 88 Pulse Ox 90 Oxygen Delivery Method Oxygen Flow Rate (L/min) Positive well nourished and well developed General Appearance ED: well developed; Negative for pallor HEENT HEENT Narrative: No tongue or lip swelling no oral lesions no airway edema or compromise There is cobblestoning the posterior pharynx consistent with sinus drainage but no secondary findings to suggest infection Eyes PERRL and EOMs intact bilaterally General Eye ED: Negative for scleral icterus Neck supple and no JVD Chest Wall palpation of chest normal Resp Resp Narrative: Patient is in mild respiratory distress with tachypnea. Breath sounds are diminished throughout with diffuse inspiratory and expiratory wheezing However no nasal flaring or retractions or accessory muscle use. No stridor noted Cardio regular rhythm Rate: tachycardic Extremity normal to inspection Extremity Narrative: No asymmetric edema no pitting edema negative Homans' sign bilaterally Neuro oriented x3, CN's II-XII intact bilaterally and no sensory deficits noted Sensorium / Orientation: alert Motor Exam: strength 5/5 throughout Psych mental status grossly normal Skin no rashes or lesions noted General Skin Exam: Negative for jaundice or pallor MDM MDM MDM Narrative Medical decision making narrative: Patient arrived to the ER mildly tachycardic and his room air pulse ox was slight diminished around 88 to 90%. He has a longstanding history of severe asthma and reports that he has had viral symptoms with known sick contact at home. At this time he is afebrile and his respiratory distress is minimal. He actually reports he felt he was getting better and would not be at the hospital if he simply had his nebulizer treatments at home. Therefore do not feel the need for chest x-ray as my concern for pneumonia is low or laboratory studies at this time. The patient was given 2 DuoNebs and 1 albuterol nebulizer treatment as well as oral steroid. On reevaluation he reports feeling much better and his breath sounds have improved as well. His pulse ox has remained stable on room air at 90 to 92%. We discussed potential further evaluation once again but as his symptoms have improved and he is feeling better he does not feel like there is need for further testing. Therefore we will prescribe DuoNeb for him to use for exacerbations at home and place him on prolonged steroids secondary to his history of severe asthma. However at this time as his breath sounds and work of breathing have resolved his pulse ox is remaining stable at 90% or higher and concern for underlying pneumonia or fluid overload is low based on his history and physical exam he will be discharged home with outpatient treatment History & Record Review Discussion w/independent historian: Patient and Significant other Discharge Plan Triage Chief Complaint: Asthma ED Provider: Jam Jiang Dx/Rx/DC Orders Clinical Impression: Asthma exacerbation, Hypertension, Cirrhosis Instructions: Acute Severe Asthma Prescriptions: New ipratropium-albuterol 0.5 mg-3 mg(2.5 mg base)/3 mL solution for nebulization 3 ml inhalation Q6H PRN (Reason: shortness of breath or wheezing) Qty: 180 0RF prednisone 10 mg tablet 10 mg PO UD Qty: 33 0RF Rx Instructions: Take 4 tablets daily for 3 days, then 3 daily for 3 days, then 2 daily for 3 days, then 1 a day for 3 days then 1 QOD for 3 doses. No Action mycophenolate mofetil [CellCept] 500 mg tablet 500 mg PO BID albuterol sulfate 2.5 mg /3 mL (0.083 %) solution for nebulization 2.5 mg inhalation Q4H PRN Qty: 25 0RF Rx Instructions: Use q4 hours and PRN for wheezing tacrolimus 1 mg capsule 2 mg PO BID fluticasone propion-salmeterol [Advair Diskus] 500-50 mcg/dose blister with device 1 inh inhalation BID montelukast 10 mg Tablet 10 mg PO DINNER 30 Days Qty: 30 2RF Primary Care Provider: Lexi Barnes Referrals: Lexi Barnes MD [Primary Care Provider] - Activity Restrictions/Additional Instructions: Please take the steroid as directed to help resolve any further lung inflammation and use the DuoNeb as directed for improved control of your asthma over the next few days. Once the exacerbation has improved you may return to using just the albuterol. If you have any further concerns or worsening of symptoms please return to the ER for repeat evaluation Print Language: Persian Disposition Disposition: Home, Self Care Discharge Date/Time: 12/29/24 00:03
[2024-12-29 00:02] VITALS: BP 104/80; PULSE 74; RESP 20; TEMP 36.2; O2SAT 90
== END 2024-12-29 00:03 | disposition home or self-care (01) ==
PROVIDERS: Emergency Provider Emergency Medicine; PCP Internal Medicine; Visit Provider Emergency Medicine
DX: J45.901 Unspecified asthma with (acute) exacerbation (principal); K74.60 Unspecified cirrhosis of liver; I10 Essential (primary) hypertension
CPT/HCPCS: 94640; 99284